=== PATIENT | female | born 1950 | race Caucasian/White ===

== ENCOUNTER 2018-03-17 08:35 | Emergency (ER) | payer MEDICARE, SELFPAY ==
[2018-03-17 08:36] VITALS: BP 179/88; PULSE 78; RESP 16; TEMP 36.8; O2SAT 99; BMI 20.7
--- NOTE | 2018-03-17 08:49 | ED.VISSUMM ---
- ER Visit Summary Date of Service: 03/17/18 Chief Complaint: Right middle finger bruising History of Present Illness: The patient is a 68 F presenting with right middle finger bruising. Patient states she was doing yard work all day yesterday. This morning she noted bruising to her right middle finger. She went to urgent care. They sent her to the ED for further evaluation. She denies pain. She is right-handed. No other complaints. Physical Examination: Vitals are stable. Patient is afebrile. Alert no acute distress. HEENT exam is unremarkable. Lungs are clear and equal bilaterally. Heart is regular rate and rhythm. Extremities right middle finger volar ecchymosis. AFROM. Nontender. Normal cap refill. Skin is warm and dry. No focal neurologic deficit. Remainder of exam is unremarkable. Emergency Department Course and Treatment: Patient is advised to ice and elevate. She declines x-rays or further evaluation. She is unsure why urgent care sent her to the ED. She was put in aluminum foam splint. Advised to follow-up with her primary care physician. Advised return ED if worsening complaints. Disposition: Discharge home Impression: Right middle finger contusion This note was generated with [employer] dictation software. It may contain incorrect words, spelling, and punctuation that were not noted in review of the chart prior to signing ED Disposition - Plan for ED Patient: Disposition: Home or Assisted Living Chief Complaint: Upper Extremity Injury Instructions: ED Contusion Upper Ext Referrals: Pablo Brunson MD [Primary Care Provider] -
--- NOTE | 2018-03-17 08:52 | ED.DEP ---
ED Disposition - Plan for ED Patient: Chief Complaint: Upper Extremity Injury Instructions: ED Contusion Upper Ext
--- NOTE | 2018-03-17 09:13 | ED.RN ---
PT DECLINED SPLINT
[2018-03-17 09:14] VITALS: PULSE 71; RESP 18
--- NOTE | 2018-03-17 09:14 | ED.RN ---
PT ANXIOUS TO BE D/C. PT DECLINED ALUMINUM SPLINT. MEDICATION ARE NOT REVIEWED
--- NOTE | 2018-03-17 09:17 | ED.RN ---
THIS NURSE REVIEWED D/C INSTRUCTIONS WITH PT. PT VERBALIZED UNDERSTANDING OF INSTRUCTIONS. PT DENIES FURTHER NEEDS OR QUESTIONS AT THIS TIME. PT AMBULATES FROM ROOM ON OWN WITHOUT ASSISTANCE FROM STAFF
== END 2018-03-17 09:18 | disposition home or self-care (01) ==
PROVIDERS: Emergency Provider Emergency Medicine; Family Provider Family Medicine; PCP Family Medicine
DX: S60.031A Contusion of right middle finger without damage to nail, initial encounter (principal); X58.XXXA Exposure to other specified factors, initial encounter; Y93.9 Activity, unspecified; Y92.9 Unspecified place or not applicable
CPT/HCPCS: 99282

== ENCOUNTER → 2018-10-01 15:44 | Outpatient (CLI) | payer MEDICARE, SELFPAY ==
[2018-10-01 18:05] LABS: Absolute Lymphocyte Count 1.57 X10^3/ul (0.83-4.51); Basophil# 0.02 X10^3/uL; Basophil% 0.3 % (0-1); Eosinophil# 0.64 X10^3/uL; Eosinophils% 9.2 % (0-5); Hematocrit 39.3 % (37-47); Hemoglobin 12.4 g/dl (12.0-15.0); Lymphocyte # 1.57 X10^3/ul (4.0); Lymphocyte % 22.7 % (19-41); Mean Corp Hgb Conc 31.6 g/gl (32-36); Mean Corpuscular Hgb 31.6 pg (27.0-32.0); Mean Platelet Vol. 9.7 fl (6.2-12.0); Monocyte# 0.65 X10^3/uL; Monocyte% 9.4 % (0-10); Neutrophil # 4.04 X10^3/uL (2.7-7.7); Neutrophil % 58.3 % (47-70); Platelet Count 253 K/mm3 (150-450); RBC Distribution Width CV 13.2 % (11.6-14.6); RBC Distribution Width SD 48.2 fl (35.1-43.9); Red Blood Count 3.93 M/mm3 (4.2-5.4); White Blood Count 6.9 K/mm3 (4.4-11.0)
[2018-10-01 18:16] LABS: POSITIVE COUNT NO; POSITIVE DIFFERENTIAL NO; POSITIVE MORPHOLOGY NO
[2018-10-01 18:21] LABS: Vitamin B12 964 pg/mL (211-911)
[2018-10-01 18:22] LABS: ALB/GLOB Ratio 0.8 RATIO (0.9-2.4); AST(SGOT) 18 U/L (15-37); Alanine Aminotransfer ALT/SGPT 28 U/L (13-56); Albumin, Serum 3.3 g/dL (3.2-5.0); Alkaline Phosphatase 92 U/L (45-117); Anion Gap 10 (5-15); BUN 28 mg/dL (7-18); BUN/Creat Ratio 27.2 RATIO (10-20); Calcium,Total 8.8 mg/dL (8.5-10.1); Chloride 107 mmol/L (98-107); Creatinine, Serum 1.03 mg/dL (0.55-1.02); EST Glomerular Filtration Rate 57 mL/min (>60); Est Glom Filt Rate - Afr Amer 68 mL/min (>60); Ferritin 20 ng/mL (8-252); Glucose 163 mg/dL (74-106); Iron 85 ug/dL (50-170); Potassium 3.9 mmol/L (3.5-5.1); Protein, Total 7.3 g/dL (6.4-8.2); Sodium Level 143 mmol/L (136-145); T4 Free Direct 1.71 ng/dL (0.76-1.46); Thyroid Stim Hormone (TSH) 0.28 uIU/mL (0.358-3.74)
== END ==
PROVIDERS: Family Provider Family Medicine; PCP Family Medicine; Visit Provider Family Medicine
DX: E11.9 Type 2 diabetes mellitus without complications (principal); E03.9 Hypothyroidism, unspecified; D64.9 Anemia, unspecified
CPT/HCPCS: 36415; 80053; 82607; 82728; 83540; 84439; 84443; 85025

== ENCOUNTER → 2018-11-23 11:18 | Outpatient (CLI) | payer MEDICARE, SELFPAY ==
[2018-11-23 09:58] VITALS: BMI 20.7
[2018-11-23 12:18] LABS: T4 Free Direct 1.65 ng/dL (0.76-1.46)
== END ==
PROVIDERS: Family Provider Family Medicine; PCP Family Medicine; Referring Provider Nurse Practitioner; Visit Provider Nurse Practitioner
DX: E07.9 Disorder of thyroid, unspecified (principal); E03.9 Hypothyroidism, unspecified
CPT/HCPCS: 36415; 84439; 84443

== ENCOUNTER → 2018-12-09 12:25 | Outpatient (CLI) | payer MEDICARE, SELFPAY ==
[2018-11-23 09:58] VITALS: BMI 20.7
--- NOTE | 2018-12-09 12:29 | US_ITS ---
STUDY: THYROID ULTRASOUND REASON FOR EXAM: Female, 68 years old. Hypothyroidism. Goiter. TECHNIQUE: Ultrasound evaluation of the thyroid was performed with real-time and static daley-scale imaging. COMPARISON: None. FINDINGS: RIGHT LOBE: The right lobe of the thyroid gland measures 8.2 x 2.1 x 1.9 cm. There is a markedly heterogeneous echotexture. There are no demonstrated solid, cystic or complex lesions. LEFT LOBE: The left lobe of the thyroid gland measures 6.2 x 2.3 x 2.0 cm. There is a markedly heterogeneous echotexture. There are no demonstrated solid, cystic or complex lesions. ISTHMUS: The isthmus measures 5 mm . The regional lymph nodes are normal. US/Thyroid IMPRESSION: Enlarged markedly heterogeneous thyroid gland with no focal nodules or masses. Electronically Signed: Adria Rivera MD at 23:40 EST , Service support ,
--- OUTSIDE RECORDS SUMMARY | 2019-02-13 08:27 | XMS RPT_ITS ---
:1950 Author Organization OH[facility] Care Team Providers Name Role Phone PABLO CRAMONA Referring Unavailable PABLO CARMONA Attending Unavailable PABLO CARMONA Referring Unavailable PABLO CARMONA Referring Unavailable PABLO CARMONA Referring Unavailable ALISHA NARVAEZ (PA) Attending Unavailable ALISHA NARVAEZ (PA) Referring Unavailable DEYA ROWELL (PA) Attending Unavailable ALISHA NARVAEZ (PA) Referring Unavailable KEENA RAHMAN (BINDING CUTTER [employer]NTHETIC CLOTH) Referring Unavailable Lili Elkins BIG MACHINE CONSULTANT-C Attending Unavailable Praveen Lutz Referring Unavailable Lili Elkins BIG MACHINE CONSULTANT-C Attending Unavailable Llii Elkins BIG MACHINE CONSULTANT-C Referring Unavailable NeldaPraveen zelaya Primary Care Unavailable Lili Elkins BIG MACHINE CONSULTANT-C Attending Unavailable Lili Elkins BIG MACHINE CONSULTANT-C Referring Unavailable Praveen Lutz Primary Care Unavailable Monique Fong Attending Unavailable Pablo Carmona Primary Care Unavailable Praveen Lutz Attending Unavailable Nelda, Praveen Primary Care Unavailable Praveen Lutz Attending Unavailable Nelda, Praveen Primary Care Unavailable PROBLEMS PROBLEMS DATE TYPE CONDITION / CODE ATTENDING STATUS SOURCE 11/23/2018 Unknown E07.9 - Disorder of Lili Elkins Active [place] thyroid, BIG MACHINE CONSULTANT-C Community unspecified / Hospital E07.9(ICD-10) Repository 11/23/2018 Unknown E03.9 - Lili Elkins Active [place] Hypothyroidism, BIG MACHINE CONSULTANT-C Community unspecified / Hospital E03.9(ICD-10) Repository 10/01/2018 Unknown E11.9 - Type 2 Praveen Lutz Active [place] diabetes mellitus Community without Hospital complications / Repository E11.9(ICD-10) 10/01/2018 Unknown D64.9 - Anemia, Praveen Lutz Active [place] unspecified / Community D64.9(ICD-10) Hospital Repository 04/27/2018 Active Unknown / VETOVITZ, Active [facility] UNK(Unknown) DEYA (PA) [facility] [place] Repository 02/18/2018 Active Type 2 diabetes NA Active [facility] mellitus without [facility] [place] complications / Repository E11.9(ICD-10) 08/21/2017 Active Vitamin D NA Active [facility] deficiency, [facility] [place] unspecified / Repository E55.9(ICD-10) 02/13/2018 Active Other penitentiary NA Active [facility] (current) drug [facility] [place] therapy / Repository Z79.899(ICD-10) 02/13/2018 Active Type 2 diabetes NA Active [facility] mellitus with [facility] [place] diabetic Repository neuropathy, unspecified / E11.40(ICD-10) PROCEDURES PROCEDURES No Procedure Records FoundRESULTS RESULTS THYROID Observed: 12/09/2018 Status: F Source: [place] 12:29 PM [facility] REPOSITORY [facility] Imaging Services [address] [place] [address] Thyroid MR#: [id number] Acct: [id number] Name: SALONI HICKS Rep #: [id number] : 1950 F 68 From: Adria Rivera MD PCP: Praveen Lutz DO Status: REG CLI Study: Thyroid Date of Exam: 12/09/18 Exam# [id number] Ordering Dr: Lili Elkins BIG MACHINE CONSULTANT-[place] STUDY: THYROID ULTRASOUND REASON FOR EXAM: Female, 68 years old. Hypothyroidism. Goiter. TECHNIQUE: Ultrasound evaluation of the thyroid was performed with real-time and static daley-scale imaging. COMPARISON: None. FINDINGS: RIGHT LOBE: The right lobe of the thyroid gland measures 8.2 x 2.1 x 1.9 cm. There is a markedly heterogeneous echotexture. There are no demonstrated solid, cystic or complex lesions. LEFT LOBE: The left lobe of the thyroid gland measures 6.2 x 2.3 x 2.0 cm. There is a markedly heterogeneous echotexture. There are no demonstrated solid, cystic or complex lesions. ISTHMUS: The isthmus measures 5 mm . The regional lymph nodes are normal. US/Thyroid IMPRESSION: Enlarged markedly heterogeneous thyroid gland with no focal nodules or masses. Electronically Signed: Adria Rivera MD at 23:40 EST , Service support , CC: Lili Elkins NP; Praveen Lutz DO Rn Observation: Signed OFFICE VISIT REPORT Observed: 11/26/2018 Status: F Source: [place] 5:17 AM [place] [address] [place] [address] OFFICE VISIT Date of Service: 11/23/18 MR#: [id number] Acct: [id number] Patient: SALONI HICKS Rep #: [id number] : 1950 Provider: Lili Elkins NP Age/Sex: 68/F [place] [facility] [place]: Signed Intake Vital Signs11/23/18 Height 5 ft 7 in 11/23/18 Weight: 132 lb 11/23/18 Body Mass Index (BMI) 20.7 11/23/18 Blood Pressure 150/80 H 11/23/18 Blood Pressure Location Lt popliteal 11/23/18 Blood Pressure Position Sitting Intake Visit Reasons: Thyroid dysfunction Linemarker Required: No Accompanied by: Self Allergies No Known Allergies Allergy (Verified 11/23/18 09:48) Medications bupropion HCl XL 300 mg 24 hr tablet, extended release 300 mg PO QAM 11/20/18 [History Confirmed 11/23/18] calcium PO QDAY 11/20/18 [History Confirmed 11/23/18] cholecalciferol (vitamin D3) 1,000 unit tablet 1,000 unit PO DAILY 11/20/18 [History Confirmed 11/23/18] multivitamin with minerals-folic acid 0.4 mg tablet mg PO tab 11/20/18 [History Confirmed 11/23/18] omeprazole 20 mg tablet,delayed release 20 mg PO DAILY 11/20/18 [History Confirmed 11/23/18] levothyroxine 175 mcg tablet 175 mcg PO DAILY 11/23/18 [History Confirmed 11/23/18] lisinopril 2.5 mg tablet 2.5 mg PO DAILY 11/23/18 [History Confirmed 11/23/18] metformin 500 mg tablet 500 mg PO TID tab 11/23/18 [History Confirmed 11/23/18] PFSH Medical History Anxiety and depression (Acute) Arthritis (Acute) Back problem (Acute) Carpal tunnel syndrome (Acute) Cataracts, bilateral (Acute) GERD (gastroesophageal reflux disease) (Acute) Goiter (Acute) H/O: pneumonia (Acute) Hypothyroidism (Acute) Neuropathy (Acute) Recurrent UTI (Acute) Seasonal allergies (Acute) TIA (transient ischemic attack) (Acute) Type 2 diabetes mellitus (Acute) Vision problems (Acute) Family History Mother Cancer Father Diabetes Heart disease Sister Diabetes Social History Smoking Status: Current every day smoker alcohol intake: current alcohol intake frequency: holidays/special occasions only substance use type: does not use HPI HPI Details: Nereyda Hill is a 68 year old female ho presents as a follow up for hypothyroidism. Pt of . States she has recently had labs done at [facility] and adjustments made in her Synthyroid. She is currently on Synthyroid 175mcg daily She reports she has always required a large dose of replacement. She also reports she has recently relocated to [place]. She was seeing someone routinely for her thyroid. She does repot she has known goiter and US done routinely. Reports taking medication aas directed. Does not miss any doses. Does not take within 4 hours of calcium,iron, antacids or vitamins. Severity, modifying factors, context, and associated signs and symptoms are as follows: Thyroid pain: No Energy: Reduced Sleep: awakened refreshed Temp: No intolerance GI: Normal bowel with occ constipation Weight: Flucuates Eyes: No change in vision Memory: unchanged Diaphoresis: Not significant Skin: Dry Hair :shedding Neuro: numbness, [place] tingling or tremors. At time of visit: -Pt denies symptoms of hypertensive emergency (CP,SOB,DRUMMOND, or blurred vision) and hypotension(dizziness or lightheadedness) -Pt denies symptoms of hypoglycemia ( sweaty, confusion, anxiety, tremor, hunger, palpitations) and hyperglycemia ( polydipsia, polyuria) -Pt denies potential medication adverse effect. ROS Const Constitutional: No anorexia, body ache, chills, fever(s), decreased energy, malaise, night sweats, weight change, sleep problems, other, snoring, frequent falls, weakness, headache(s), abnormal sleep pattern, change in appetite, excessive sweating or fatigue Eyes Eyes: Positive for blurry vision; no change in vision, double vision, discharge, dry eyes, bulging eyes, floaters, eye pain, light sensitivity, spots in vision, tunnel vision, other or visual disturbances ENT ENT: No ear pain, ear discharge, ear pressure, hearing loss, tinnitus, dizziness/vertigo, balance problems, nosebleed/epistaxis, nasal congestion, nasal obstruction, nose pain, sinus pressure, sinus pain, nasal discharge, post nasal drip, facial pain, dental pain, dry mouth, bad breath, hoarseness, mouth lesions, mouth pain, sore throat, difficulty swallowing, neck pain, abnormal hearing, headache(s), other, lip swelling, tongue swelling or throat swelling Resp Respiratory: Positive for cough; no change in phlegm color, chest congestion, excessive phlegm production, hemoptysis, pain on inspiration, shortness of breath, pain with cough, snoring, stridor, other or wheezing Cardio Cardiology: Positive for other (poor circulation); no chest pain at rest, chest pain with exertion, leg pain with exertion, shortness of breath, dyspnea on exertion, generalized swelling, irregular heart rhythm, lightheadedness, orthopnea, radiating jaw, neck or arm pain, fast heart rate, slow heart rate, palpitations or excessive sweating Gastro GI: Positive for constipation, diarrhea, nausea/dyspepsia and vomiting; no abdominal pain, belching, bloating, change in bowel habits, change in stool character, coffee ground emesis, cramping, heartburn, feeling full early, excessive flatus, incontinent of stools, Vomiting blood/hematemesis, blood in stool, loose stools, Black,tarry stools, pain with swallowing, other or difficulty swallowing Genitourinary-Female: No difficulty urinating, burning urination, painful urination, urinary incontinence, urinary frequency, urinary urgency, urinary hesitancy, urinary retention, blood in urine, Frequent nighttime urination/ nocturia, post void dribbling, suprapubic fullness, side pain, sexual problems, genital lesions, genital itching, hot flashes, abnormal periods, abnormal vaginal bleeding, absent period, painful periods, light periods, heavy periods, difficulty getting , painful intercourse, pelvic pain, vaginal dryness, vaginal odor, Vaginal Itching or other Musc Musculoskeletal: Positive for joint pain, numbness (bilat hands and feet) and tingling (bilat hands and feet); no back pain, deformity, joint swelling, limited range of motion, loss of height, muscle cramps, decreased muscle mass, body aches, neck pain, radiating pain into limb, stiffness, other, abnormal walking or muscle weakness Skin Skin: Positive for hair loss; no acne, change in hair, nail changes, boil, change in skin color, dry skin, redness, excessive hair growth, yellowing of the skin, lesions, rash, skin pain, skin ulcer, sores, skin swelling, wounds, other or itching Breast Breast: No other Neuro Neurology: Positive for numbness (bilat hands and feet) and tingling (bilat hands and feet); no frequent falls, weakness, visual disturbances, abnormal hearing, headache(s) or abnormal walking Psych Psychiatric: No abnormal sleep pattern, No change in appetite Endo Endocrine: No change in body appearance, cold intolerance, excessive sweating, fatigue, flushing, heat intolerance, increased thirst/drinking, increased hunger, increased urination or other Aller/Imm Allergy/Immunologic: No lip swelling, tongue swelling, throat swelling, wheezing or itchy eyes Exam Const General: healthy appearing, well developed Nutritional Appearance: well nourished Orientation: oriented x3 [facility] Head: normal to inspection, atraumatic Ears: hearing grossly normal bilaterally Nose: external nose normal Face and sinus: normal facial exam Mouth: oral mucosae normal, moist mucous membranes Teeth and gingiva: dentition normal Eyes General: appearance normal, both eyes and all related structures Eyelids: eyelids normal Conjunctivae: conjunctivae normal Sclera: sclerae normal Pupils: PERRL Neck Neck: normal visual inspection Neck mass: No Thyroid: diffusely enlarged Resp Effort AND Inspection: normal respiratory effort, able to speak in complete sentences Auscultation: Bilateral: Clear to Auscultation Cardio Rate: regular rate Rhythm: regular rhythm Heart Sounds: S1 normal, S2 normal, no murmurs, no rubs GI Inspection: normal to inspection Auscultation: normal bowel sounds Palpation: soft, no guarding Musc Musculoskeletal: No muscle weakness Skin General: dry skin Neuro General: oriented x3, moves all extremities Cognition: normal cognition Speech: speech normal Gait: normal gait Extrem General: normal to inspection, full ROM Psych Appearance: grossly normal Mental Status: mental status grossly normal Mood: congruent mood Affect: normal affect Speech and Movement: speech and movement normal Attitude: cooperative Thought Process: normal Thought Content: normal Judgment: judgment good Assessment AND Plan 1. 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 E04.0 Plan Patient has had medication adjustment of her loevthyroxine (synthroid by her PCP due to suppressed TSH values. She has not had labs rechecked and I will order that now. Reports thyroid has been monitored for several years with thyroid US without change. No difficulty swallowing. Patient Instructions Labs today Will call patient with results and any adjustments required. US thyroid. Orders Orders: Plan Detail Other Orders Orders: Other Medications New: Additional Comments RTC 1 year. Labs today. US thyroid. 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, [address] T4 FREE DIRECT Collected: 11/23/2018 Status: F Source: [place] 11:26 AM [facility] REPOSITORY TYPE CODE TESTS RESULT OUT OF REFERENCE UNITS RANGE LAB L506.0400 0.76-1.46 ng/dL High T4 FREE 1.65 DIRECT Performed By: #### L501.9520, L506.0400 #### [place] [facility] [address] [place], [address] CBC W/DIFF, AUTOMATED Collected: 10/01/2018 Status: F Source: [place] 3:48 PM [facility] REPOSITORY TYPE CODE TESTS RESULT OUT OF RANGE REFERENCE UNITS LAB L100.1000 4.4-11.0 K/mm3 Normal WBC 6.9 LAB L100.1200 4.2-5.4 M/mm3 Low RBC 3.93 LAB L100.1300 12.0-15.0 g/dl Normal HGB 12.4 LAB L100.1400 37-47 % Normal HCT 39.3 LAB L100.1500 81-99 fL High MCV 100.0 LAB L100.1600 27.0-32.0 pg Normal MCH 31.6 LAB L100.1700 32-36 g/gl Low MCHC 31.6 LAB L100.1810 11.6-14.6 % Normal RDW CV 13.2 LAB L100.1820 35.1-43.9 fl High RDW SD 48.2 LAB L100.1900 150-450 K/mm3 Normal PLT 253 LAB L100.2000 6.2-12.0 fl Normal MPV 9.7 LAB L100.2100 47-70 % Normal NEUT% 58.3 LAB L100.2200 19-41 % Normal LY% 22.7 LAB L100.2300 0-10 % Normal MONO% 9.4 LAB L100.2400 0-5 % High EO% 9.2 LAB L100.2500 0-1 % Normal BASO% 0.3 LAB L100.2550 0.0-0.9 % Normal IM GRAN % 0.100 Result Comment: IG% - Immature Granulocytes (promyelocytes, myelocytes and metamyelocytes) > 1% indicates that a LEFT SHIFT is Present. LAB L100.2620 2.0-7.7 X10 3/uL Normal Absolute Neut 4.0 LAB L100.2720 0.83-4.51 X10 3/ul Normal Absolute Lymph 1.57 Performed By: #### L100.0100 #### [facility] [address] [place], [address] VITAMIN B12 Collected: 10/01/2018 Status: F Source: [place] 3:48 PM [facility] REPOSITORY TYPE CODE TESTS RESULT OUT OF REFERENCE UNITS RANGE LAB L503.0105 211-911 pg/mL High Vitamin B12 964 Performed By: #### L503.0105 #### [facility] [address] [place], [address] COMPREHENSIVE METABOLIC Collected: 10/01/2018 Status: F [facility] REPOSITORY TYPE CODE TESTS RESULT OUT OF RANGE REFERENCE UNITS LAB L501.0100 74-106 mg/dL High GLU 163 Result Comment: Fasting Glucose result greater than or equal to 126 mg/dL suggests DIABETES MELLITUS per A.D.A. criteria. Please note revised GLUCOSE reference range effective 2017. LAB L501.1000 7-18 mg/dL High BUN 28 LAB L501.1100 0.55-1.02 mg/dL High CREAT,SERUM 1.03 Result Comment: The validity of the calculated GFR AND GFRAA in patients over 70 years has not been determined. Clinical correlation is essential. LAB L501.1110 >60 mL/min Low EST GFR 57 Result Comment: Non- GFR Calc LAB L501.1115 >60 mL/min Normal EST GFR - AA 68 Result Comment: GFR Calc LAB L501.1300 10-20 RATIO High BUN/CRE 27.2 LAB L501.1500 6.4-8.2 g/dL T Normal PROT 7.3 LAB L501.1800 3.2-5.0 g/dL Normal ALB 3.3 LAB L501.1950 2.2-4.2 g/dL Normal GLOB 4.0 LAB L501.2000 0.9-2.4 RATIO Low A/G 0.8 LAB L501.2200 8.5-10.1 mg/dL CA Normal 8.8 LAB L501.4100 15-37 U/L Normal AST 18 LAB L501.4305 45-117 U/L Normal ALK P 92 LAB L501.4405 13-56 U/L Normal ALT 28 LAB L501.4600 0.20-1.00 mg/dL T Normal BILI 0.30 LAB L501.5300 136-145 mmol/L NA Normal 143 LAB L501.5600 3.5-5.1 mmol/L K Normal 3.9 LAB L501.5900 98-107 mmol/L CL Normal 107 LAB L501.6100 21.0-32.0 mmol/L Normal CO2 26.0 LAB L501.6200 5-15 Normal GAP 10 Performed By: #### L500.4050, L501.9520, L503.6150, L503.6550, L506.0400 #### [facility] [address] [facility] [place], [address] THYROID STIM HORMONE Collected: 10/01/2018 Status: F Source: [place] (TSH) 3:48 PM [facility] REPOSITORY TYPE CODE TESTS RESULT OUT OF RANGE REFERENCE UNITS LAB L501.9520 0.358-3.74 uIU/mL Low TSH 0.28 Performed By: #### L500.4050, L501.9520, L503.6150, L503.6550, L506.0400 #### [facility] [facility] [place], [address] IRON Collected: 10/01/2018 Status: F Source: [place] 3:48 PM [facility] REPOSITORY TYPE CODE TESTS RESULT OUT OF RANGE REFERENCE UNITS LAB L503.6150 50-170 ug/dL Normal IRON 85 Performed By: #### L500.4050, L501.9520, L503.6150, L503.6550, L506.0400 #### [facility] [address] [facility] [place], [address] FERRITIN Collected: 10/01/2018 Status: F Source: [place] 3:48 PM [facility] REPOSITORY TYPE CODE TESTS RESULT OUT OF RANGE REFERENCE UNITS LAB L503.6550 8-252 ng/mL Normal FERRITIN 20 Performed By: #### L500.4050, L501.9520, L503.6150, L503.6550, L506.0400 #### [facility] [address] [place], [address] T4 FREE DIRECT Collected: 10/01/2018 Status: F Source: [place] 3:48 PM [facility] REPOSITORY TYPE CODE TESTS RESULT OUT OF REFERENCE UNITS RANGE LAB L506.0400 0.76-1.46 ng/dL High T4 FREE 1.71 DIRECT Performed By: #### L500.4050, L501.9520, L503.6150, L503.6550, L506.0400 #### [facility] [address] [place], [address] XR ANKLE 3V AP/LAT/OBL Observed: 06/25/2018 Status: F Source: [place] RT 11:25 AM [facility] REPOSITORY * * *Final Report* * * DATE OF EXAM: Jun 25 2018 11:25AM WOX [id number] - XR ANKLE 3V AP/LAT/OBL RT / PROCEDURE REASON: Pain in right foot * * * * Physician Interpretation * * * * HISTORY: Right ankle pain TECHNIQUE: 3 upright views COMPARISON: None RESULT: Bony and joint structures appear intact. There is soft tissue fullness ventral to the ankle on the lateral view which may be an ankle joint effusion. Incidental note is made of a moderate-sized plantar calcaneal spur. IMPRESSION: Findings as detailed Rn Observation: SAADIA Transcribe Date/Time: Jun 25 2018 11:51A Dictated by : CECILIO KEARNEY MD This examination was interpreted and the report reviewed and electronically signed by: CECILIO KEARNEY MD on Jun 25 2018 11:53AM EST [id number] Observed: 06/25/2018 Status: COMPLETED Source: [place] 11:07 AM [facility] REPOSITORY HNO ID: [id number] Author: Keena Rahman Service: (none) Author Type: Nurse Practitioner Type: Progress Notes Filed: 06/25/2018 12:16 PM Note Text: Subjective The history is provided by the patient. No legal document assistant was used. ASHLYN Hicks is a 68 year old female who presents today for CC of right foot/ankle pain. This started over a month ago. She is also having mild swelling. Symptoms are worsened by walking. She has tried no treatment, she has used ibuprofen, with slight relief. Risk factors no known trauma. PMH significant for foot surgery on right bunion. BP 124/80 Pulse 78 Temp 36.9 ?C (98.4 ?F) Resp 16 Wt 59 kg (130 lb) BMI 20.98 kg/m? ALLERGIES Allergen Reactions - Seasonal Allergies Other: See Comments pollen causes sneezing ACTIVE PROBLEM LIST Controlled Type 2 Diabetes Mellitus Without Complication, Without Long-Term Current Use of Insulin ([facility]) Acquired Hypothyroidism Diabetic Eye Exam ([facility]) Gerd Without Esophagitis Herpes Simplex Infection of Genitourinary System Anxiety and Depression Smoker Iron Deficiency Anemia Encounter for Gynecological Examination Without Abnormal Finding Type 2 Diabetes Mellitus With Diabetic Neuropathy ([facility]) History of Tia (Transient Ischemic Attack) Vitamin D Deficiency Chronic Seasonal Allergic Rhinitis Osteopenia, Senile Carotid Stenosis, Asymptomatic, Bilateral Medicare Annual Wellness Visit, Subsequent Current Use of Proton Pump Inhibitor Essential Hypertension Family History Problem Relation Age of Onset - Cancer Mother Malignant neoplastic disease - Heart Father - Diabetes Father - Diabetes Sister - Diabetes Brother Social History Marital status: Spouse name: Years of education: Number of children: 0 Social History Main Topics Smoking status: Current Every Day Smoker Packs/day: 0.00 Years: 0.00 Smokeless tobacco: Never Used Alcohol use: Yes Comment: rare Drug use: No PAST MEDICAL HISTORY Diagnosis Date - Anxiety and depression 08/20/2017 - Controlled type 2 diabetes mellitus without complication, without long-term current use of insulin ([facility]) 05/08/2017 - Diabetic eye exam ([facility]) 07/07/2017 Last done: 06/26/2017 - DM (diabetes mellitus) ([facility]) - Essential hypertension 03/04/2018 - GERD without esophagitis 08/20/2017 - 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 - Hypothyroid - Hypothyroidism 05/08/2017 - Smoker 08/20/2017 Started at age 16 up to 1 PPD - TIA (transient ischemic attack) Review of Systems Constitutional: Negative for chills, fever and malaise/fatigue. Musculoskeletal: Positive for joint pain (right ankle). Negative for myalgias. Skin: Negative for rash. Neurological: Negative for tingling and headaches. Objective Physical Exam Constitutional: She is oriented to person, place, and time and well-developed, well-nourished, and in no distress. No distress. HENT: Head: Normocephalic and atraumatic. Eyes: Conjunctivae and EOM are normal. Pupils are equal, round, and reactive to light. Neck: Normal range of motion. Neck supple. Cardiovascular: Pulses: Dorsalis pedis pulses are 2+ on the right side, and 2+ on the left side. Posterior tibial pulses are 2+ on the right side, and 2+ on the left side. Pulmonary/Chest: Effort normal. Musculoskeletal: Right ankle: She exhibits decreased range of motion (rotation) and swelling (mild). She exhibits no ecchymosis, no deformity, no laceration and normal pulse. Tenderness. Medial malleolus tenderness found. No lateral malleolus, no AITFL, no CF ligament, no posterior TFL, no head of 5th metatarsal and no proximal fibula tenderness found. Achilles tendon normal. Feet: Neurological: She is alert and oriented to person, place, and time. She has normal sensation, normal strength and normal reflexes. Reflex Scores: Achilles reflexes are 2+ on the right side and 2+ on the left side. Skin: Skin is warm and dry. Psychiatric: Affect normal. Nursing note and vitals reviewed. ASSESSMENT/PLAN: 1. Foot pain, right - ICD9: 729.5, ICD10: M79.671 Rest, ice, elevation, van wrap for comfort 2 Aleve twice a day as needed for pain Need to follow up with podiatry - XR ANKLE GENERAL 3V AP/LAT/OBL RT - interpreted by Cecilio Kearney MD IMPRESSION: Findings as detailed- RESULT: Bony and joint structures appear intact. There is soft tissue fullness ventral to the ankle on the lateral view which may be an ankle joint effusion. Incidental note is made of a moderate-sized plantar calcaneal spur. CONSULT TO PODIATRY Diagnosis and treatment plan were discussed and questions were answered to the patient's satisfaction. Pt acknowledged understanding of concepts and follow up plan. Specific signs and symptoms that would indicate the need for higher level of care were discussed in detail warranting prompt ER evaluation. Keena Rahman APRN.B[employer]ING [employer]OTH PROGRESS Observed: 06/25/2018 Status: COMPLETED Source: [place] 11:07 AM [facility] [place] REPOSITORY HNO ID: [id number] Author: Aurelia Hughes (Rt) Willian Fitch Service: (none) Author Type: [employer] Open Stack Administrator Type: Progress Notes Filed: 06/25/2018 11:24 AM Note Text: Radiology Service Progress Note PATIENT NAME: Saloni Hicks DATE OF SERVICE: June 25, 2018 TIME: 11:07 AM PATIENT IDENTITY VERIFICATION COMPLETED USING TWO (2) METHODS: Patient confirmed name verbally and Date of . PATIENT GENDER DATA: Female. status: : No status: NO. PATIENT RELEVANT IMPLANT DATA REVIEWED: Not Applicable RADIOLOGY DEPARTMENT: General X-ray: Exam(s) Completed: Lower Extremity X-Ray(s): Ankle, Right: PERIPHERAL IV DATA: Not applicable SIGNED BY: RT Edin June 25, 2018 11:07 AM SHANI Observed: 06/25/2018 Status: COMPLETED Source: [place] 10:30 AM [facility] REPOSITORY Office Visit (WSTR) FABIOLASALONI MACHUCA ([id number]) 1950 F Date Time Provider Department 06/25/18 10:30 AM KEENA RAHMAN (ELIZABETH) [facility] During your visit today, we recorded the following information about you: Temperature Pulse Respiration Blood pressure 98.4 degrees 78/minute 16/minute 124/80 Weight 59 kg Keena Rahman APRN.CNP 06/25/2018 12:16 PM Signed Subjective The history is provided by the patient. No legal document assistant was used. HPI Saloni Hicks is a 68 year old female who presents today for CC of right foot/ankle pain. This started over a month ago. She is also having mild swelling. Symptoms are worsened by walking. She has tried no treatment, she has used ibuprofen, with slight relief. Risk factors no known trauma. PMH significant for foot surgery on right bunion. BP 124/80 Pulse 78 Temp 36.9 ?C (98.4 ?F) Resp 16 Wt 59 kg (130 lb) BMI 20.98 kg/m? ALLERGIES Allergen Reactions - Seasonal Allergies Other: See Comments pollen causes sneezing ACTIVE PROBLEM LIST Controlled Type 2 Diabetes Mellitus Without Complication, Without Long-Term Current Use of Insulin ([facility]) Acquired Hypothyroidism Diabetic Eye Exam ([facility]) Gerd Without Esophagitis Herpes Simplex Infection of Genitourinary System Anxiety and Depression Smoker Iron Deficiency Anemia Encounter for Gynecological Examination Without Abnormal Finding Type 2 Diabetes Mellitus With Diabetic Neuropathy ([facility]) History of Tia (Transient Ischemic Attack) Vitamin D Deficiency Chronic Seasonal Allergic Rhinitis Osteopenia, Senile Carotid Stenosis, Asymptomatic, Bilateral Medicare Annual Wellness Visit, Subsequent Current Use of Proton Pump Inhibitor Essential Hypertension Family History Problem Relation Age of Onset - Cancer Mother Malignant neoplastic disease - Heart Father - Diabetes Father - Diabetes Sister - Diabetes Brother Social History Marital status: Spouse name: Years of education: Number of children: 0 Social History Main Topics Smoking status: Current Every Day Smoker Packs/day: 0.00 Years: 0.00 Smokeless tobacco: Never Used Alcohol use: Yes Comment: rare Drug use: No PAST MEDICAL HISTORY Diagnosis Date - Anxiety and depression 08/20/2017 - Controlled type 2 diabetes mellitus without complication, without long-term current use of insulin ([facility]) 05/08/2017 - Diabetic eye exam ([facility]) 07/07/2017 Last done: 06/26/2017 - DM (diabetes mellitus) ([facility]) - Essential hypertension 03/04/2018 - GERD without esophagitis 08/20/2017 - 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 - Hypothyroid - Hypothyroidism 05/08/2017 - Smoker 08/20/2017 Started at age 16 up to 1 PPD - TIA (transient ischemic attack) Review of Systems Constitutional: Negative for chills, fever and malaise/fatigue. Musculoskeletal: Positive for joint pain (right ankle). Negative for myalgias. Skin: Negative for rash. Neurological: Negative for tingling and headaches. Objective Physical Exam Constitutional: She is oriented to person, place, and time and well-developed, well-nourished, and in no distress. No distress. HENT: Head: Normocephalic and atraumatic. Eyes: Conjunctivae and EOM are normal. Pupils are equal, round, and reactive to light. Neck: Normal range of motion. Neck supple. Cardiovascular: Pulses: Dorsalis pedis pulses are 2+ on the right side, and 2+ on the left side. Posterior tibial pulses are 2+ on the right side, and 2+ on the left side. Pulmonary/Chest: Effort normal. Musculoskeletal: Right ankle: She exhibits decreased range of motion (rotation) and swelling (mild). She exhibits no ecchymosis, no deformity, no laceration and normal pulse. Tenderness. Medial malleolus tenderness found. No lateral malleolus, no AITFL, no CF ligament, no posterior TFL, no head of 5th metatarsal and no proximal fibula tenderness found. Achilles tendon normal. Feet: Neurological: She is alert and oriented to person, place, and time. She has normal sensation, normal strength and normal reflexes. Reflex Scores: Achilles reflexes are 2+ on the right side and 2+ on the left side. Skin: Skin is warm and dry. Psychiatric: Affect normal. Nursing note and vitals reviewed. ASSESSMENT/PLAN: 1. Foot pain, right - ICD9: 729.5, ICD10: M79.671 Rest, ice, elevation, van wrap for comfort 2 Aleve twice a day as needed for pain Need to follow up with podiatry - XR ANKLE GENERAL 3V AP/LAT/OBL RT - interpreted by Cecilio Kearney MD IMPRESSION: Findings as detailed- RESULT: Bony and joint structures appear intact. There is soft tissue fullness ventral to the ankle on the lateral view which may be an ankle joint effusion. Incidental note is made of a moderate-sized plantar calcaneal spur. CONSULT TO PODIATRY Diagnosis and treatment plan were discussed and questions were answered to the patient's satisfaction. Pt acknowledged understanding of concepts and follow up plan. Specific signs and symptoms that would indicate the need for higher level of care were discussed in detail warranting prompt ER evaluation. Keena Rahman APRN.ELIZABETH Rahman APRN.ELIZABETH 06/25/2018 12:14 PM Signed ASSESSMENT/PLAN: 1. Foot pain, right - ICD9: 729.5, ICD10: M79.671 Rest, ice, elevation, van wrap for comfort 2 Aleve twice a day as needed for pain Need to follow up with podiatry - XR ANKLE GENERAL 3V AP/LAT/OBL RT - CONSULT TO PODIATRY Referring Provider: SELF [200] Allergies As of Date: 06/25/2018 Noted Allergy Reaction SEASONAL ALLERGIES 04/27/2018 14 - Other: See Comments Comments: pollen causes sneezing Date Reviewed: 06/25/2018 Reviewed by: Keena Carter) Lacey - Fully Assessed Reason for Visit: Pain (foot) [760] Cmt: x 1 month right foot pain, swelling and bruising Primary Visit Diagnosis:Foot pain, right [M79.671] Order(s):XR ANKLE GENERAL 3V AP/LAT/OBL RT [1131805] Order #: [id number]. #:[id number] CONSULT TO PODIATRY [9034] Order #: [id number]: 1 Prescriptions as of 06/25/2018 Sig: VALACYCLOVIR 500 MG TABLET TAKE 1 TABLET EVERY DAY SYNTHROID 200 MCG TABLET TAKE 1 TABLET 5 DAYS A WEEK A* METFORMIN 500 MG TABLET Take 1 tablet by mouth three * LISINOPRIL 5 MG TABLET Take 1 tablet by mouth once d* SYNTHROID 175 MCG TABLET Take 1 tablet by mouth every * OMEPRAZOLE 40 MG CAPSULE,YARIEL* Take 1 capsule by mouth once * SYNTHROID 200 MCG TABLET Take one tab by mouth 5 days * BUPROPION XL 300 MG 24 HR TAB Take 1 tablet by mouth once d* ASPIRIN 81 MG TABLET,DELAYED * Take 1 tablet by mouth once d* CHOLECALCIFEROL (VITAMIN D3) * Take 1,000 Units by mouth onc* NAPROXEN 500 MG TABLET Take 1 tablet by mouth twice * Patient not taking: Reported on 04/27/2018 MUPIROCIN 2 % TOPICAL OINTMENT Apply 1 application to affect* Patient not taking: Reported on 06/25/2018 Problem List As Of Date 06/25/2018 Noted Resolved Controlled type 2 diabetes mellitus without com*INVALID FOR* Priority: A Acquired hypothyroidism [E03.9] INVALID FOR* Priority: A Diabetic eye exam (HCC) [Z01.00, E11.9] INVALID FOR* Priority: A More... GERD without esophagitis [K21.9] INVALID FOR* Priority: A Herpes simplex infection of genitourinary syste*INVALID FOR* Priority: C Anxiety and depression [F41.9, F32.9] INVALID FOR* Priority: A Smoker [F17.200] INVALID FOR* Priority: C More... Iron deficiency anemia [D50.9] INVALID FOR* Priority: A Encounter for gynecological examination without*INVALID FOR* Priority: E More... Type 2 diabetes mellitus with diabetic neuropat*INVALID FOR* Priority: A History of TIA (transient ischemic attack) [Z86*INVALID FOR* Priority: A More... Vitamin D deficiency [E55.9] INVALID FOR* Priority: B Chronic seasonal allergic rhinitis [J30.2] INVALID FOR* Priority: B Osteopenia, senile [M85.80] INVALID FOR* Priority: M More... Carotid stenosis, asymptomatic, bilateral [I65.*INVALID FOR* Priority: A More... Medicare annual wellness visit, subsequent [Z00*INVALID FOR* Priority: E More... Current use of proton pump inhibitor [Z79.899] INVALID FOR* Essential hypertension [I10] INVALID FOR* Priority: A Other instructions from your clinician: ASSESSMENT/PLAN: 1. Foot pain, right - ICD9: 729.5, ICD10: M79.671 Rest, ice, elevation, van wrap for comfort 2 Aleve twice a day as needed for pain Need to follow up with podiatry - XR ANKLE GENERAL 3V AP/LAT/OBL RT - CONSULT TO PODIATRY Encounter Status:Closed by KEENA RAHMAN CNP on 06/25/18 CNCO Observed: 05/11/2018 Status: COMPLETED Source: [place] 12:00 AM [facility] REPOSITORY Letter Text [address] [place] [address] [phone] 05/11/2018 Saloni Hicks [address] [facility] [address] Dear Ms. Hicks: Due to a change in the provider's schedule, it has been necessary to reschedule your appointment. Enclosed please find a new appointment reminder that will replace the one previously sent to you. If this appointment is not convenient for you, please contact our office at [phone]. Thank you for choosing the [facility] as your Healthcare Provider. Sincerely, The office of Deya Rowell PROGRESS Observed: 04/30/2018 Status: COMPLETED Source: [place] 4:50 PM [facility] [place] REPOSITORY HNO ID: [id number] Author: Betty Lee Ma Service: (none) Author Type: (none) Type: Progress Notes Filed: 04/30/2018 4:51 PM Note Text: Patient scheduled at [facility] on 08/09/18 @ 7:00 am for EMG/NCV BUE. Referral done in computer and follow up appointment mailed to patient. PROGRESS Observed: 04/27/2018 Status: COMPLETED Source: [place] 5:16 PM [facility] REPOSITORY HNO ID: [id number] Author: Deya Rowell (Pa) Service: (none) Author Type: Physician Professor Of Industrial Technology Type: Progress Notes Filed: 04/27/2018 5:23 PM Note Text: Deya Rowell PA-C Department of Orthopaedics Orthopaedics [address] [facility] [address] Dept: [phone] Dept April 27, 2018 CHIEF COMPLAINT: New Patient (bilateral CTS, REF:Alisha Narvaez) HPI: Ms. Saloni Hicks is a 68 year old female. She presents with almost constant numbness in her right middle finger for the past few months. The patient tells me that she has had intermittent numbness in her right and left thumb, index and middle fingers for the past several years. The patient recalls having an EMG in [place] 5 years ago, testing was positive for bilateral carpal tunnel syndrome but patient was unable to take time off from work at that point. Patient recalls having a corticosteroid injection in her right wrist that had been very helpful up until about a few months ago. Patient notes right hand pain is a 5 out of 10 aching, cramping, throbbing, numbness that is worse at bedtime or with overactivity. The patient has been sleeping in extension splints for the past 5 years without relief. 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 She is also tried naproxen which which does not find to be helpful. Patient is right hand dominant. ASSESSMENT: G56.03 Bilateral carpal tunnel syndrome (primary encounter diagnosis) PLAN: We will proceed with right total tunnel corticosteroid injection today. Discussed surgery with patient and she wishes to forego right carpal tunnel release until after the summer. We did discuss repeating her nerve conduction study prior to surgery. Follow-up as needed. FOLLOW UP INSTRUCTIONS: As needed. Ms. Saloni Hicks was advised as to contrast therapies and/or to take analgesics/anti-inflammatories as needed and all contraindications were reviewed. OBJECTIVE: Ms. Saloni Hicks is a pleasant 68 year old in no apparent distress. Gen:BP 154/84[auto[ Pulse 89 Ht 5' 6 (1.68m) Wt 133 lb 6.4 oz (60.5kg) BMI 21.54 kg/(m2). nl development, non obese, no deformities ENT: Normocephalic, normal hearing, moist mucosa CV: Pulses:Radial= 2+ and symmetric, capillary refill < 2 secs, no peripheral edema/varicosities Skin: no rash, bruising or lesions. Good turgor. Psych: cooperative and appropriate, alert and oriented x 3, good mood and affect. Musculoskeletal: Cervical spine has supple range of motion and non- tenderness to palpation, Spurling's sign negative. Shoulders and elbows have full and active range of motion. Negative Tinel's over the cubital tunnel, no subluxation of ulnar nerve at the elbow with flexion. Negative Tinel's over Guyon's canal. Inspection reveals mild thenar atrophy. Decreased sensation to light touch in the radial 3 digits. Sensation intact in the ulnar 2 digits with mild intrinsic atrophy/weakness. Negative Tinel's at the wrist, negative carpal tunnel compression testing bilterally. No locking or catching of the digits. No tenderness to palpation or masses noted in the forearm or hand. Procedure note: The risk, benefits and alternatives of injection and no injection therapy were discussed. The patient consented for an injection. Time out was conducted. The injection site was prepped with an alcohol swab. The right Carpal Tunnel was injected with a 25 gauge needle with 0.5 cc (3 mg) Celestone and 0.5 cc 1% Lidocaine Plain. The injection site was then dressed with a bandaid. The patient tolerated the injection well. The patient was instructed to call the office if any adverse local effects occurred or any if any questions or concerns arise. Deya Rowell PA-C IMAGING: Deferred today Supporting Subjective Information Below: Past Medical History: PAST MEDICAL HISTORY Diagnosis Date - Anxiety and depression 08/20/2017 - Controlled type 2 diabetes mellitus without complication, without long-term current use of insulin ([facility]) 05/08/2017 - Diabetic eye exam ([facility]) 07/07/2017 Last done: 06/26/2017 - DM (diabetes mellitus) (HCC) - Essential hypertension 03/04/2018 - GERD without esophagitis 08/20/2017 - 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 - Hypothyroid - Hypothyroidism 05/08/2017 - Smoker 08/20/2017 Started at age 16 up to 1 PPD - TIA (transient ischemic attack) Past Surgical History: PAST SURGICAL HISTORY Procedure Laterality Date - CATARACT EXT; EYEONICS IOL SYS 11/24/2007 both - COLONOSCOPY 05/08/2008 repeat 10 yrs - CORRECT BUNION,SIMPLE Bilateral 1997 left - HAMMERTOE REVISION, ONE TOE 11/24/1975 right - MENISCAL REPAIR SYS,CD,[id number] Right knee - PROSTHESIS, BREAST, IMP Bilateral 11/24/1975 - TONSILLECTOMY HX 11/24/1954 Family History: FAMILY HISTORY Problem Relation Age of Onset - Cancer Mother Malignant neoplastic disease - Heart Father - Diabetes Father - Diabetes Sister - Diabetes Brother Social History:Social History Marital status: Spouse name: Years of education: Number of children: 0 Social History Main Topics Smoking status: Current Every Day Smoker Packs/day: 0.00 Years: 0.00 Smokeless tobacco: Never Used Alcohol use: Yes Comment: rare Drug use: No Medications: Current Outpatient Prescriptions: metFORMIN (GLUCOPHAGE) 500 mg tablet Take 1 tablet by mouth three times daily. lisinopril (ZESTRIL, PRINIVIL) 5 mg tablet Take 1 tablet by mouth once daily. SYNTHROID 175 mcg tablet Take 1 tablet by mouth every Friday and Friday. Omeprazole 40 mg capsule Take 1 capsule by mouth once daily. SYNTHROID 200 mcg tablet Take one tab by mouth 5 days a week as instructed. Take on empty stomach. For Thyroid. Please give branded synthroid buPROPion XL (WELLBUTRIN XL) 300 mg 24 hr tablet Take 1 tablet by mouth once daily. valACYclovir (VALTREX) 500 mg tablet Take 1 tablet by mouth once daily. aspirin, enteric coated (ADULT LOW DOSE ASPIRIN) 81 mg EC tablet Take 1 tablet by mouth once daily. Cholecalciferol, Vitamin D3, (VITAMIN D) 1,000 unit cap Take 1,000 Units by mouth once daily. naproxen (NAPROSYN) 500 mg tablet Take 1 tablet by mouth twice daily as needed (for pain/inflammation). Take with food. (Patient not taking: Reported on 04/27/2018 ) SYNTHROID 200 mcg tablet TAKE 1 TABLET 5 DAYS A WEEK INSTRUCTED, TAKE ON EMPTY STOMACH FOR THYROID mupirocin (BACTROBAN) 2 % ointment Apply 1 application to affected area three times daily. Location: [facility] No current facility-administered medications for this visit. Allergies: Seasonal Allergies ROS: General (negative for fatigue, malaise, weight loss/gain) HEENT (negative for headache, earache, recent vision changes, sinus pain, sore throat) Respiratory (no recent shortness of breath, hemoptysis) CV (negative for chest tightness, palpitations) Musculoskeletal (see HPI) Psych (no depression, anxiety) REFERRING PHYSICIAN: Ms. Saloni Hicks was referred to me for consultation by the following physician. This consultation note will be sent to the following physician by either mail or electronic medical record. ALISHA NARVAEZ PA-C [address] [facility] [id number] Pablo Carmona MD [address] [facility] [id number] This note was partially generated using Intertwine voice recognition system, and there may be some incorrect words, spellings, and punctuation that were not noted in checking the note before saving. Deya Rowell PA-C PROGRESS Observed: 04/27/2018 Status: COMPLETED Source: [place] 2:10 PM [facility] REPOSITORY [facility] ID: [id number] Author: Daisy Andres RN Service: (none) Author Type: (none) Type: Progress Notes Filed: 04/27/2018 5:23 PM Note Text: AMB ROOMING INTAKE FLOWSHEET DATA Risk Screening Do you have concerns about personal safety or safety in the home?: No Pain Pain Score: (right hand 5-10 and left hand 1) Pain Location: (bilateral hands) Description: Aching, Cramping, Throbbing, Stabbing, Sharp Duration Amount of Time: 30 Duration Units: Years Frequency: Continuous Intervention: Splinting, Medication Patient presents with: New Patient: bilateral CTS, REF:Alisha Narvaez Pt. 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 She is having severe symptoms in right hand and is right hand dominant. Left bothers her very little. 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 Splinting no longer helps right hand and naproxen ineffective. She continues to smoke. Discussed reasons for quitting and pt. aware. Instructed since BP still elevated, to make appt. for nurse BP check within the next month. Pt. verbalizes understanding. SHANI Observed: 04/27/2018 Status: COMPLETED Source: [place] 2:10 PM [facility] REPOSITORY Office Visit (ORTHWS) SALONI HICKS ([id number]) 1950 F Date Time Provider Department 04/27/18 2:10 PM DEYA ROWELL) MARIA L During your visit today, we recorded the following information about you: Pulse Blood pressure Weight Height 89/minute 154/84 60.5 kg 1.676 m Daisy Andres RN 04/27/2018 5:23 PM Signed AMB ROOMING INTAKE FLOWSHEET DATA Risk Screening Do you have concerns about personal safety or safety in the home?: No Pain Pain Score: (right hand 5-10 and left hand 1) Pain Location: (bilateral hands) Description: Aching, Cramping, Throbbing, Stabbing, Sharp Duration Amount of Time: 30 Duration Units: Years Frequency: Continuous Intervention: Splinting, Medication Patient presents with: New Patient: bilateral CTS, REF:Alisha Narvaez Pt. 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 She is having severe symptoms in right hand and is right hand dominant. Left bothers her very little. 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 Splinting no longer helps right hand and naproxen ineffective. She continues to smoke. Discussed reasons for quitting and pt. aware. Instructed since BP still elevated, to make appt. for nurse BP check within the next month. Pt. verbalizes understanding. Deya Rowell PA-C 04/27/2018 5:23 PM Signed Deya Rowell PA-C Department of Orthopaedics Orthopaed[facility] [address] [facility] [address] Dept: [phone] Dept April 27, 2018 CHIEF COMPLAINT: New Patient (bilateral CTS, REF:Alisha Narvaez) HPI: Ms. Saloni Hicks is a 68 year old female. She presents with almost constant numbness in her right middle finger for the past few months. The patient tells me that she has had intermittent numbness in her right and left thumb, index and middle fingers for the past several years. The patient recalls having an EMG in [place] 5 years ago, testing was positive for bilateral carpal tunnel syndrome but patient was unable to take time off from work at that point. Patient recalls having a corticosteroid injection in her right wrist that had been very helpful up until about a few months ago. Patient notes right hand pain is a 5 out of 10 aching, cramping, throbbing, numbness that is worse at bedtime or with overactivity. The patient has been sleeping in extension splints for the past 5 years without relief. 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 She is also tried naproxen which which does not find to be helpful. Patient is right hand dominant. ASSESSMENT: G56.03 Bilateral carpal tunnel syndrome (primary encounter diagnosis) PLAN: We will proceed with right total tunnel corticosteroid injection today. Discussed surgery with patient and she wishes to forego right carpal tunnel release until after the summer. We did discuss repeating her nerve conduction study prior to surgery. Follow-up as needed. FOLLOW UP INSTRUCTIONS: As needed. Ms. Saloni Hicks was advised as to contrast therapies and/or to take analgesics/anti-inflammatories as needed and all contraindications were reviewed. OBJECTIVE: Ms. Saloni Hicks is a pleasant 68 year old in no apparent distress. Gen:BP 154/84[auto[ Pulse 89 Ht 5' 6 (1.68m) Wt 133 lb 6.4 oz (60.5kg) BMI 21.54 kg/(m2). nl development, non obese, no deformities ENT: Normocephalic, normal hearing, moist mucosa CV: Pulses:Radial= 2+ and symmetric, capillary refill < 2 secs, no peripheral edema/varicosities Skin: no rash, bruising or lesions. Good turgor. Psych: cooperative and appropriate, alert and oriented x 3, good mood and affect. Musculoskeletal: Cervical spine has supple range of motion and non- tenderness to palpation, Spurling's sign negative. Shoulders and elbows have full and active range of motion. Negative Tinel's over the cubital tunnel, no subluxation of ulnar nerve at the elbow with flexion. Negative Tinel's over Guyon's canal. Inspection reveals mild thenar atrophy. Decreased sensation to light touch in the radial 3 digits. Sensation intact in the ulnar 2 digits with mild intrinsic atrophy/weakness. Negative Tinel's at the wrist, negative carpal tunnel compression testing bilterally. No locking or catching of the digits. No tenderness to palpation or masses noted in the forearm or hand. Procedure note: The risk, benefits and alternatives of injection and no injection therapy were discussed. The patient consented for an injection. Time out was conducted. The injection site was prepped with an alcohol swab. The right Carpal Tunnel was injected with a 25 gauge needle with 0.5 cc (3 mg) Celestone and 0.5 cc 1% Lidocaine Plain. The injection site was then dressed with a bandaid. The patient tolerated the injection well. The patient was instructed to call the office if any adverse local effects occurred or any if any questions or concerns arise. Deya Rowell PA-C IMAGING: Deferred today Supporting Subjective Information Below: Past Medical History: PAST MEDICAL HISTORY Diagnosis Date - Anxiety and depression 08/20/2017 - Controlled type 2 diabetes mellitus without complication, without long-term current use of insulin ([facility]) 05/08/2017 - Diabetic eye exam ([facility]) 07/07/2017 Last done: 06/26/2017 - DM (diabetes mellitus) ([facility]) - Essential hypertension 03/04/2018 - GERD without esophagitis 08/20/2017 - 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 - Hypothyroid - Hypothyroidism 05/08/2017 - Smoker 08/20/2017 Started at age 16 up to 1 PPD - TIA (transient ischemic attack) Past Surgical History: PAST SURGICAL HISTORY Procedure Laterality Date - CATARACT EXT; EYEONICS IOL SYS 11/24/2007 both - COLONOSCOPY 05/08/2008 repeat 10 yrs - CORRECT BUNION,SIMPLE Bilateral 1997 left - HAMMERTOE REVISION, ONE TOE 11/24/1975 right - MENISCAL REPAIR SYS,CD,[id number] Right knee - PROSTHESIS, BREAST, IMP Bilateral 11/24/1975 - TONSILLECTOMY HX 11/24/1954 Family History: FAMILY HISTORY Problem Relation Age of Onset - Cancer Mother Malignant neoplastic disease - Heart Father - Diabetes Father - Diabetes Sister - Diabetes Brother Social History:Social History Marital status: Spouse name: Years of education: Number of children: 0 Social History Main Topics Smoking status: Current Every Day Smoker Packs/day: 0.00 Years: 0.00 Smokeless tobacco: Never Used Alcohol use: Yes Comment: rare Drug use: No Medications: Current Outpatient Prescriptions: metFORMIN (GLUCOPHAGE) 500 mg tablet Take 1 tablet by mouth three times daily. lisinopril (ZESTRIL, PRINIVIL) 5 mg tablet Take 1 tablet by mouth once daily. SYNTHROID 175 mcg tablet Take 1 tablet by mouth every Friday and Friday. Omeprazole 40 mg capsule Take 1 capsule by mouth once daily. SYNTHROID 200 mcg tablet Take one tab by mouth 5 days a week as instructed. Take on empty stomach. For Thyroid. Please give branded synthroid buPROPion XL (WELLBUTRIN XL) 300 mg 24 hr tablet Take 1 tablet by mouth once daily. valACYclovir (VALTREX) 500 mg tablet Take 1 tablet by mouth once daily. aspirin, enteric coated (ADULT LOW DOSE ASPIRIN) 81 mg EC tablet Take 1 tablet by mouth once daily. Cholecalciferol, Vitamin D3, (VITAMIN D) 1,000 unit cap Take 1,000 Units by mouth once daily. naproxen (NAPROSYN) 500 mg tablet Take 1 tablet by mouth twice daily as needed (for pain/inflammation). Take with food. (Patient not taking: Reported on 04/27/2018 ) SYNTHROID 200 mcg tablet TAKE 1 TABLET 5 DAYS A WEEK INSTRUCTED, TAKE ON EMPTY STOMACH FOR THYROID mupirocin (BACTROBAN) 2 % ointment Apply 1 application to affected area three times daily. Location: thumb No current facility-administered medications for this visit. Allergies: Seasonal Allergies ROS: General (negative for fatigue, malaise, weight loss/gain) HEENT (negative for headache, earache, recent vision changes, sinus pain, sore throat) Respiratory (no recent shortness of breath, hemoptysis) CV (negative for chest tightness, palpitations) Musculoskeletal (see HPI) Psych (no depression, anxiety) REFERRING PHYSICIAN: Ms. Saloni Hicks was referred to me for consultation by the following physician. This consultation note will be sent to the following physician by either mail or electronic medical record. ALISHA NARVAEZ PA-C [id number] [facility] [id number] Pablo Carmona MD [id number] [facility] [id number] This note was partially generated using Intertwine voice recognition system, and there may be some incorrect words, spellings, and punctuation that were not noted in checking the note before saving. CHELSEA Holguin Id 04/30/2018 4:51 PM Signed Patient scheduled at [facility] on 08/09/18 @ 7:00 am for EMG/NCV BUE. Referral done in computer and follow up appointment mailed to patient. Referring Provider: EMERALD NARVAEZ) [[id number]] Allergies As of Date: 04/27/2018 Noted Allergy Reaction SEASONAL ALLERGIES 04/27/2018 14 - Other: See Comments Comments: pollen causes sneezing Date Reviewed: 04/27/2018 Reviewed by: Deya Rowell (Pa) - Fully Assessed Reason for Visit: New Patient [172] Cmt: bilateral CTS, REF:Alisha Narvaez Primary Visit Diagnosis:Bilateral carpal tunnel syndrome [G56.03] Order(s):EMG(NEURO/NI) [9516826] Order #: [id number]: 1 FUTURE [] lidocaine 10 mg/mL (1 %) 5 mg injection (XYLOCAINE)Disp: Rfl: [] betamethasone acetate-betamethasone sodium phosphate 3 mg injection (CELESTONE)Disp: Rfl: Prescriptions as of 04/27/2018 Sig: METFORMIN 500 MG TABLET Take 1 tablet by mouth three * LISINOPRIL 5 MG TABLET Take 1 tablet by mouth once d* SYNTHROID 175 MCG TABLET Take 1 tablet by mouth every * OMEPRAZOLE 40 MG CAPSULE,YARIEL* Take 1 capsule by mouth once * SYNTHROID 200 MCG TABLET Take one tab by mouth 5 days * BUPROPION XL 300 MG 24 HR TAB Take 1 tablet by mouth once d* VALACYCLOVIR 500 MG TABLET Take 1 tablet by mouth once d* ASPIRIN 81 MG TABLET,DELAYED * Take 1 tablet by mouth once d* CHOLECALCIFEROL (VITAMIN D3) * Take 1,000 Units by mouth onc* NAPROXEN 500 MG TABLET Take 1 tablet by mouth twice * Patient not taking: Reported on 04/27/2018 SYNTHROID 200 MCG TABLET TAKE 1 TABLET 5 DAYS A WEEK A* MUPIROCIN 2 % TOPICAL OINTMENT Apply 1 application to affect* Medication notes this encounter SYNTHROID 200 MCG TABLET >> Daisy Andres RN 04/27/2018 2:09 PM >> DAISY ANDRES RN FriApr 27, 2018 2:09 PM duplicate Problem List As Of Date 04/27/2018 Noted Resolved Controlled type 2 diabetes mellitus without com*INVALID FOR* Priority: A Acquired hypothyroidism [E03.9] INVALID FOR* Priority: A Diabetic eye exam (HCC) [Z01.00, E11.9] INVALID FOR* Priority: A More... GERD without esophagitis [K21.9] INVALID FOR* Priority: A Herpes simplex infection of genitourinary syste*INVALID FOR* Priority: C Anxiety and depression [F41.9, F32.9] INVALID FOR* Priority: A Smoker [F17.200] INVALID FOR* Priority: C More... Iron deficiency anemia [D50.9] INVALID FOR* Priority: A Encounter for gynecological examination without*INVALID FOR* Priority: E More... Type 2 diabetes mellitus with diabetic neuropat*INVALID FOR* Priority: A History of TIA (transient ischemic attack) [Z86*INVALID FOR* Priority: A More... Vitamin D deficiency [E55.9] INVALID FOR* Priority: B Chronic seasonal allergic rhinitis [J30.2] INVALID FOR* Priority: B Osteopenia, senile [M85.80] INVALID FOR* Priority: M More... Carotid stenosis, asymptomatic, bilateral [I65.*INVALID FOR* Priority: A More... Medicare annual wellness visit, subsequent [Z00*INVALID FOR* Priority: E More... Current use of proton pump inhibitor [Z79.899] INVALID FOR* Essential hypertension [I10] INVALID FOR* Priority: A Prescriptions ordered this encounter Disp Refills Start End LIDOCAINE 10 MG/ML (1 %) INJECTION S* 04/27/2018 04/27/2018 Route: OTHER BETAMETHASONE ACETATE AND SODIUM ELIZABETH* 04/27/2018 04/27/2018 Route: OTHER Encounter Status:Closed by DEYA ROWELL PA-C on 04/27/18 PROGRESS Observed: 04/15/2018 Status: COMPLETED Source: [place] 8:30 AM [facility] REPOSITORY HNO ID: [id number] Author: Rachelle Narvaez Service: (none) Author Type: Physician Professor [employer] Industrial [employer] Type: Progress Notes Filed: 04/15/2018 9:02 AM Note Text: 04/15/2018 Patient presents with: Pain: patient is here for bilateral hand/wrist pain SUBJECTIVE: This is a 68 year old that is here today for Above Complaints.. Hx of b/l hand/wrist pain for years. Has had EMG in past (approx 9 years ago) while living in [place] and did show Carpal tunnel but she couldn't take off work. States that at that time she received a steroid injection which helped. Pain is worse in R more than L. Also getting numbness and tingling in fingertips. Has noticed some loss in joint finisher strength Has tried motrin which can help but not always. Has used splints at night for years but doesn't seem to help anymore. 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 MEDICATIONS Current Outpatient Prescriptions: SYNTHROID 200 mcg tablet TAKE 1 TABLET 5 DAYS A WEEK INSTRUCTED, TAKE ON EMPTY STOMACH FOR THYROID metFORMIN (GLUCOPHAGE) 500 mg tablet Take 1 tablet by mouth three times daily. lisinopril (ZESTRIL, PRINIVIL) 5 mg tablet Take 1 tablet by mouth once daily. SYNTHROID 175 mcg tablet Take 1 tablet by mouth every Friday and Friday. Omeprazole 40 mg capsule Take 1 capsule by mouth once daily. buPROPion XL (WELLBUTRIN XL) 300 mg 24 hr tablet Take 1 tablet by mouth once daily. valACYclovir (VALTREX) 500 mg tablet Take 1 tablet by mouth once daily. aspirin, enteric coated (ADULT LOW DOSE ASPIRIN) 81 mg EC tablet Take 1 tablet by mouth once daily. Cholecalciferol, Vitamin D3, (VITAMIN D) 1,000 unit cap Take 1,000 Units by mouth once daily. mupirocin (BACTROBAN) 2 % ointment Apply 1 application to affected area three times daily. Location: thumb SYNTHROID 200 mcg tablet Take one tab by mouth 5 days a week as instructed. Take on empty stomach. For Thyroid. Please give branded synthroid No current facility-administered medications for this visit. SOCIAL HISTORY Social History Marital status: Spouse name: Years of education: Number of children: 0 Social History Main Topics Smoking status: Current Every Day Smoker Packs/day: 0.00 Years: 0.00 Smokeless tobacco: Never Used Alcohol use: Yes Comment: rare Drug use: No REVIEW OF SYSTEMS SEE HPI Others reviewed and noncontributory OBJECTIVE: BP 130/64 Pulse 76 Resp 14 Wt 60.8 kg (134 lb) BMI 21.47 kg/m? APPEARANCE Well appearing, alert, in no acute distress, well-hydrated, well nourished. EXTREMITIES Positive phalens. No pain with ROM or palpation of b/l hands, wrists. No skin discoloration, No edema and Normal pulses bilaterally. NEURO Sensation to monofilament decreased in R hand fingertips. Sensation intact proximally. bicipital reflex equal b/l. Patient Safety Manager strength 4/5 ASSESSMENT/PLAN: 1. Carpal tunnel syndrome, bilateral - ICD9: 354.0, ICD10: G56.03 (primary diagnosis) Symptoms consistent with worsening carpal tunnel. Patient would like to discuss steroid injection vs surgical intervention. We will consult ortho for treatment options since she has failed more conservative options In meantime will start patient on Naproxen 500mg BID prn. - CONSULT TO ORTHOPAEDICS 2. Bilateral hand pain - ICD9: 729.5, ICD10: M79.641, M79.642 CTS vs OA - CONSULT TO ORTHOPAEDICS Follow up as scheduled or sooner as needed. ALISHA NARVAEZ PA-C CNOV Observed: 04/15/2018 Status: COMPLETED Source: [place] 8:20 AM [facility] REPOSITORY Office Visit ([facility]) SALONI HICKS ([id number]) 1950 F Date Time Provider Department 04/15/18 8:20 AM EMERALD NARVAEZ) [facility] During your visit today, we recorded the following information about you: Pulse Respiration Blood pressure Weight 76/minute 14/minute 130/64 60.8 kg ALISHA NARVAEZ PA-C 04/15/2018 9:02 AM Signed 04/15/2018 Patient presents with: Pain: patient is here for bilateral hand/wrist pain SUBJECTIVE: This is a 68 year old that is here today for Above Complaints.. Hx of b/l hand/wrist pain for years. Has had EMG in past (approx 9 years ago) while living in [place] and did show Carpal tunnel but she couldn't take off work. States that at that time she received a steroid injection which helped. Pain is worse in R more than L. Also getting numbness and tingling in fingertips. Has noticed some loss in joint finisher strength Has tried motrin which can help but not always. Has used splints at night for years but doesn't seem to help anymore. 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 MEDICATIONS Current Outpatient Prescriptions: SYNTHROID 200 mcg tablet TAKE 1 TABLET 5 DAYS A WEEK INSTRUCTED, TAKE ON EMPTY STOMACH FOR THYROID metFORMIN (GLUCOPHAGE) 500 mg tablet Take 1 tablet by mouth three times daily. lisinopril (ZESTRIL, PRINIVIL) 5 mg tablet Take 1 tablet by mouth once daily. SYNTHROID 175 mcg tablet Take 1 tablet by mouth every Friday and Friday. Omeprazole 40 mg capsule Take 1 capsule by mouth once daily. buPROPion XL (WELLBUTRIN XL) 300 mg 24 hr tablet Take 1 tablet by mouth once daily. valACYclovir (VALTREX) 500 mg tablet Take 1 tablet by mouth once daily. aspirin, enteric coated (ADULT LOW DOSE ASPIRIN) 81 mg EC tablet Take 1 tablet by mouth once daily. Cholecalciferol, Vitamin D3, (VITAMIN D) 1,000 unit cap Take 1,000 Units by mouth once daily. mupirocin (BACTROBAN) 2 % ointment Apply 1 application to affected area three times daily. Location: thumb SYNTHROID 200 mcg tablet Take one tab by mouth 5 days a week as instructed. Take on empty stomach. For Thyroid. Please give branded synthroid No current facility-administered medications for this visit. SOCIAL HISTORY Social History Marital status: Spouse name: Years of education: Number of children: 0 Social History Main Topics Smoking status: Current Every Day Smoker Packs/day: 0.00 Years: 0.00 Smokeless tobacco: Never Used Alcohol use: Yes Comment: rare Drug use: No REVIEW OF SYSTEMS SEE HPI Others reviewed and noncontributory OBJECTIVE: BP 130/64 Pulse 76 Resp 14 Wt 60.8 kg (134 lb) BMI 21.47 kg/m? APPEARANCE Well appearing, alert, in no acute distress, well- hydrated, well nourished. EXTREMITIES Positive phalens. No pain with ROM or palpation of b/l hands, wrists. No skin discoloration, No edema and Normal pulses bilaterally. NEURO Sensation to monofilament decreased in R hand fingertips. Sensation intact proximally. bicipital reflex equal b/l. Patient Safety Manager strength 4/5 ASSESSMENT/PLAN: 1. Carpal tunnel syndrome, bilateral - ICD9: 354.0, ICD10: G56.03 (primary diagnosis) Symptoms consistent with worsening carpal tunnel. Patient would like to discuss steroid injection vs surgical intervention. We will consult ortho for treatment options since she has failed more conservative options In meantime will start patient on Naproxen 500mg BID prn. - CONSULT TO ORTHOPAEDICS 2. Bilateral hand pain - ICD9: 729.5, ICD10: M79.641, M79.642 CTS vs OA - CONSULT TO ORTHOPAEDICS Follow up as scheduled or sooner as needed. ALISHA NARVAEZ PA-C Referring Provider: EMERALD NARVAEZ) [[id number]] Allergies As of Date: 04/15/2018 (No Known Allergies) Date Reviewed: 04/15/2018 Reviewed by: Emerald) Brice - Fully Assessed Reason for Visit: Pain [78] Cmt: patient is here for bilateral hand/wrist pain Primary Visit Diagnosis:Carpal tunnel syndrome, bilateral [G56.03] Other Visit Diagnosis:Bilateral hand pain [M79.641, M79.642] Order(s):CONSULT TO ORTHOPAEDICS [9026] Order #: [id number]: 1 naproxen (NAPROSYN) 500 mg tabletTake 1 tablet by mouth twice daily as needed (for pain/inflammation). Take with food.Disp: 60 tabletRfl: 1 Prescriptions as of 04/15/2018 Sig: SYNTHROID 200 MCG TABLET TAKE 1 TABLET 5 DAYS A WEEK A* METFORMIN 500 MG TABLET Take 1 tablet by mouth three * LISINOPRIL 5 MG TABLET Take 1 tablet by mouth once d* SYNTHROID 175 MCG TABLET Take 1 tablet by mouth every * OMEPRAZOLE 40 MG CAPSULE,YARIEL* Take 1 capsule by mouth once * BUPROPION XL 300 MG 24 HR TAB Take 1 tablet by mouth once d* VALACYCLOVIR 500 MG TABLET Take 1 tablet by mouth once d* ASPIRIN 81 MG TABLET,DELAYED * Take 1 tablet by mouth once d* CHOLECALCIFEROL (VITAMIN D3) * Take 1,000 Units by mouth onc* NAPROXEN 500 MG TABLET Take 1 tablet by mouth twice * MUPIROCIN 2 % TOPICAL OINTMENT Apply 1 application to affect* SYNTHROID 200 MCG TABLET Take one tab by mouth 5 days * Problem List As Of Date 04/15/2018 Noted Resolved Controlled type 2 diabetes mellitus without com*INVALID FOR* Priority: A Acquired hypothyroidism [E03.9] INVALID FOR* Priority: A Diabetic eye exam (HCC) [Z01.00, E11.9] INVALID FOR* Priority: A More... GERD without esophagitis [K21.9] INVALID FOR* Priority: A Herpes simplex infection of genitourinary syste*INVALID FOR* Priority: C Anxiety and depression [F41.9, F32.9] INVALID FOR* Priority: A Smoker [F17.200] INVALID FOR* Priority: C More... Iron deficiency anemia [D50.9] INVALID FOR* Priority: A Encounter for gynecological examination without*INVALID FOR* Priority: E More... Type 2 diabetes mellitus with diabetic neuropat*INVALID FOR* Priority: A History of TIA (transient ischemic attack) [Z86*INVALID FOR* Priority: A More... Vitamin D deficiency [E55.9] INVALID FOR* Priority: B Chronic seasonal allergic rhinitis [J30.2] INVALID FOR* Priority: B Osteopenia, senile [M85.80] INVALID FOR* Priority: M More... Carotid stenosis, asymptomatic, bilateral [I65.*INVALID FOR* Priority: A More... Medicare annual wellness visit, subsequent [Z00*INVALID FOR* Priority: E More... Current use of proton pump inhibitor [Z79.899] INVALID FOR* Essential hypertension [I10] INVALID FOR* Priority: A Prescriptions ordered this encounter Disp Refills Start End NAPROXEN 500 MG TABLET 60 t* 1 04/15/2018 Route: ORAL Sig: Take 1 tablet by mouth twice daily as needed (for pain/inflammation). Take with food. Disposition: Return if symptoms worsen or fail to improve. Follow-up and Disposition History Recorded Encounter Status:Closed by ALISHA HENSLEY on 04/15/18 CNNURSE Observed: 03/31/2018 Status: COMPLETED Source: [place] 11:00 AM [facility] REPOSITORY [facility] SALONI HICKS ([id number]) 1950 F Date Time Provider Department 03/31/18 11:00 AM [place] NURSE CATHERINE During your visit today, we recorded the following information about you: Pulse Blood pressure 77/minute 126/76 Kristi Hummel LPN 03/31/2018 11:16 AM Signed Manual Readin/76 Pulse: 80 BP Lex average: 126/76 P: 77 Repeat BP Check: 117/81 P79 #1 126/75 P75 #2 126/79 P78 #3 127/75 P74 #4 123/76 P78 #5 127/77 P78 #6 Reason for blood pressure check - Last BP elevated and Medication adjustment Patient is: Taking medication as prescribed Yes Took medication today Yes If no, date medication last taken N/A Experiencing side effects No BP continue to be elevated at last appt 03/04/18. Was started on Lisinopril 5mg daily. Tolerating medication well. Denies any chest pain, shortness of breath, dizziness, or headaches. Daily caffeine use. Current everyday tobacco use. Alert and oriented. Pt has been identified by name and birthdate: Yes Allergies reviewed: Yes Latex allergy: no. Medication - prescribed and OTC reviewed and updated: Yes Do you need any prescription refills prior to your next visit: No Health Maintenance: Reviewed and not up to date and provider notified Patient advised to continue with current medications and would be contacted with any further instructions after review by PCP. Kristi Hummel LPN Referring Provider: PABLO CARMONA [[id number]] Allergies As of Date: 03/31/2018 (No Known Allergies) Date Reviewed: 03/17/2018 Reviewed by: Ángela Santacruz Ma - Fully Assessed Reason for Visit: Blood Pressure Check [195] Primary Visit Diagnosis:Essential hypertension [I10] Prescriptions as of 03/31/2018 Sig: LISINOPRIL 5 MG TABLET Take 1 tablet by mouth once d* SYNTHROID 175 MCG TABLET Take 1 tablet by mouth every * SYNTHROID 200 MCG TABLET Take one tab by mouth 5 days * OMEPRAZOLE 40 MG CAPSULE,YARIEL* Take 1 capsule by mouth once * SYNTHROID 200 MCG TABLET Take one tab by mouth 5 days * BUPROPION XL 300 MG 24 HR TAB Take 1 tablet by mouth once d* VALACYCLOVIR 500 MG TABLET Take 1 tablet by mouth once d* ASPIRIN 81 MG TABLET,DELAYED * Take 1 tablet by mouth once d* METFORMIN 500 MG TABLET Take 500 mg by mouth three ti* CHOLECALCIFEROL (VITAMIN D3) * Take 1,000 Units by mouth onc* MUPIROCIN 2 % TOPICAL OINTMENT Apply 1 application to affect* Problem List As Of Date 03/31/2018 Noted Resolved Controlled type 2 diabetes mellitus without com*INVALID FOR* Priority: A Acquired hypothyroidism [E03.9] INVALID FOR* Priority: A Diabetic eye exam (HCC) [Z01.00, E11.9] INVALID FOR* Priority: A More... GERD without esophagitis [K21.9] INVALID FOR* Priority: A Herpes simplex infection of genitourinary syste*INVALID FOR* Priority: C Anxiety and depression [F41.9, F32.9] INVALID FOR* Priority: A Smoker [F17.200] INVALID FOR* Priority: C More... Iron deficiency anemia [D50.9] INVALID FOR* Priority: A Encounter for gynecological examination without*INVALID FOR* Priority: E More... Type 2 diabetes mellitus with diabetic neuropat*INVALID FOR* Priority: A History of TIA (transient ischemic attack) [Z86*INVALID FOR* Priority: A More... Vitamin D deficiency [E55.9] INVALID FOR* Priority: B Chronic seasonal allergic rhinitis [J30.2] INVALID FOR* Priority: B Osteopenia, senile [M85.80] INVALID FOR* Priority: M More... Carotid stenosis, asymptomatic, bilateral [I65.*INVALID FOR* Priority: A More... Medicare annual wellness visit, subsequent [Z00*INVALID FOR* Priority: E More... Current use of proton pump inhibitor [Z79.899] INVALID FOR* Essential hypertension [I10] INVALID FOR* Priority: A Encounter Status:Closed by KRISTI HUMMEL LPN on 03/31/18 PROGRESS Observed: 03/31/2018 Status: COMPLETED Source: [place] 10:59 AM [facility] REPOSITORY HNO ID: [id number] Author: Kristi Hummel LPN Service: (none) Author Type: (none) Type: Progress Notes Filed: 03/31/2018 11:16 AM Note Text: Manual Readin/76 Pulse: 80 BP Lex average: 126/76 P: 77 Repeat BP Check: 117/81 P79 #1 126/75 P75 #2 126/79 P78 #3 127/75 P74 #4 123/76 P78 #5 127/77 P78 #6 Reason for blood pressure check - Last BP elevated and Medication adjustment Patient is: Taking medication as prescribed Yes Took medication today Yes If no, date medication last taken N/A Experiencing side effects No BP continue to be elevated at last appt 03/04/18. Was started on Lisinopril 5mg daily. Tolerating medication well. Denies any chest pain, shortness of breath, dizziness, or headaches. Daily caffeine use. Current everyday tobacco use. Alert and oriented. Pt has been identified by name and birthdate: Yes Allergies reviewed: Yes Latex allergy: no. Medication - prescribed and OTC reviewed and updated: Yes Do you need any prescription refills prior to your next visit: No Health Maintenance: Reviewed and not up to date and provider notified Patient advised to continue with current medications and would be contacted with any further instructions after review by PCP. Kristi Hummel LPN FECAL OCCULT BLD Collected: 03/30/2018 Status: F Source: [facility] 12:00 PM CLINIC MAIN [facility] REPOSITORY TYPE CODE TESTS RESULT OUT OF REFERENCE UNITS RANGE LAB IFO Negative Immuno Negative FOB Result Comment: This test was developed and its performance characteristics determined by [facility]'s [facility] [place] [facility] It has not been cleared or approved by the FDA. -[facility] is regulated under CLIA as qualified to perform high-complexity testing. This test is used for clinical purposes. It should not be regarded as investigational or for research. Performed By: #### IFOBT #### [facility] [address], [place] [address] EMERGENCY DEPARTMENT Observed: 03/17/2018 Status: F Source: [place] SUMMARY 10:10 AM [facility] REPOSITORY [facility] Medical Records Department [address] [place] [address] Emergency Department Summary 03/17/18 0849 MR#: [id number] Acct: [id number] Name: SALONI HICKS Rep #: [id number] : 1950 68 From: Monique Fong MD PCP: Pablo Carmona MD Status: DEP ER - ER Visit Summary Date of Service: 03/17/18 Chief Complaint: Right middle finger bruising History of Present Illness: The patient is a 68 F presenting with right middle finger bruising. Patient states she was doing yard work all day yesterday. This morning she noted bruising to her right middle finger. She went to urgent care. They sent her to the ED for further evaluation. She denies pain. She is right-handed. No other complaints. Physical Examination: Vitals are stable. Patient is afebrile. Alert no acute distress. HEENT exam is unremarkable. Lungs are clear and equal bilaterally. Heart is regular rate and rhythm. Extremities right middle finger volar ecchymosis. AFROM. Nontender. Normal cap refill. Skin is warm and dry. No focal neurologic deficit. Remainder of exam is unremarkable. Emergency Department Course and Treatment: Patient is advised to ice and elevate. She declines x-rays or further evaluation. She is unsure why urgent care sent her to the ED. She was put in aluminum foam splint. Advised to follow-up with her primary care physician. Advised return ED if worsening complaints. Disposition: Discharge home Impression: Right middle finger contusion This note was generated with Intertwine dictation software. It may contain incorrect words, spelling, and punctuation that were not noted in review of the chart prior to signing ED Disposition - Plan for ED Patient: Disposition: Home or Assisted Living Chief Complaint: Upper Extremity Injury Instructions: ED Contusion Upper Ext Referrals: Pablo Carmona MD [Primary Care Provider] - What to do if you have Problems For any increased pain, shortness of breath, bleeding, nausea or vomiting, chest pain, or any unexpected problems, contact your Primary Care Provider. Call [facility] ([phone]) or report to the closest Emergency Room. Call 911 if necessary. 03/17/18 1010 <Electronically signed by Monique Fong MD> Date Monique Fong MD Cosigner Signature (If Indicated): Date CC: Pablo Carmona MD PROGRESS Observed: 03/17/2018 Status: COMPLETED Source: [place] 9:12 AM [facility] REPOSITORY HNO ID: [id number] Author: Pauline Perez Service: (none) Author Type: Nurse Practitioner Type: Progress Notes Filed: 03/17/2018 9:36 AM Note Text: Subjective HPI Pt presents with c/o middle finger of right hand blue, numb and limited ROM this am. Denies known injury. States was working in yard yesterday without issues. This am realized finger was numb. No open areas, bruising, swelling. Denies fever, chills. Review of Systems Constitutional: Negative for chills and fever. Objective Physical Exam Constitutional: She is oriented to person, place, and time and well-developed, well-nourished, and in no distress. No distress. Musculoskeletal: Hands: Radial pulse palpable. Limited ROM to middle finger. Poor perfusion. Finger white, cold to touch. Neurological: She is alert and oriented to person, place, and time. Skin: Skin is warm and dry. She is not diaphoretic. BP 128/80 Pulse 76 Temp 36.1 ?C (96.9 ?F) (Tympanic) Resp 16 Wt 59.4 kg (131 lb) BMI 20.98 kg/m2 .Patient presents with: Hand Injury: right hand and middle finger pain after working outside x yesterday PAST MEDICAL HISTORY Diagnosis Date - Anxiety and depression 08/20/2017 - Controlled type 2 diabetes mellitus without complication, without long-term current use of insulin ([facility]) 05/08/2017 - Diabetic eye exam ([facility]) 07/07/2017 Last done: 06/26/2017 - DM (diabetes mellitus) ([facility]) - Essential hypertension 03/04/2018 - GERD without esophagitis 08/20/2017 - 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 - Hypothyroid - Hypothyroidism 05/08/2017 - Smoker 08/20/2017 Started at age 16 up to 1 PPD PAST SURGICAL HISTORY Procedure Laterality Date - CATARACT EXT; EYEONICS IOL SYS 11/24/2007 both - COLONOSCOPY 05/08/2008 repeat 10 yrs - CORRECT BUNION,SIMPLE 1997 left - HAMMERTOE REVISION, ONE TOE 11/24/1975 right - MENISCAL REPAIR SYS,[id number] - PROSTHESIS, BREAST, IMP 11/24/1975 - TONSILLECTOMY HX 11/24/1954 ALLERGIES Review of patient's allergies indicates no known allergies. MEDICATIONS lisinopril (ZESTRIL, PRINIVIL) 5 mg tablet Take 1 tablet by mouth once daily. SYNTHROID 175 mcg tablet Take 1 tablet by mouth every Friday and Friday. SYNTHROID 200 mcg tablet Take one tab by mouth 5 days a weeks. Take on empty stomach. For Thyroid. Omeprazole 40 mg capsule Take 1 capsule by mouth once daily. SYNTHROID 200 mcg tablet Take one tab by mouth 5 days a week as instructed. Take on empty stomach. For Thyroid. Please give branded synthroid buPROPion XL (WELLBUTRIN XL) 300 mg 24 hr tablet Take 1 tablet by mouth once daily. valACYclovir (VALTREX) 500 mg tablet Take 1 tablet by mouth once daily. aspirin, enteric coated (ADULT LOW DOSE ASPIRIN) 81 mg EC tablet Take 1 tablet by mouth once daily. metFORMIN (GLUCOPHAGE) 500 mg tablet Take 500 mg by mouth three times daily. Cholecalciferol, Vitamin D3, (VITAMIN D) 1,000 unit cap Take 1,000 Units by mouth once daily. mupirocin (BACTROBAN) 2 % ointment Apply 1 application to affected area three times daily. Location: thumb FAMILY HISTORY Problem Relation Age of Onset - Cancer Mother Malignant neoplastic disease - Heart Father - Diabetes Father - Diabetes Sister - Diabetes Brother Social History Substance Use Topics - Smoking status: Current Every Day Smoker - Smokeless tobacco: Never Used - Alcohol use Yes Comment: rare ASSESSMENT/PLAN: 1. Discoloration of skin of finger - ICD9: 709.00, ICD10: L81.9 Pt referred to ED now for further evaluation of finger. Pt chooses to be seen at [facility]. Pauline Perez CNP DISCHARGE INSTRUCTION Observed: 03/17/2018 Status: F Source: [place] 8:52 AM [facility] REPOSITORY [facility] Medical Records Department [address] [place] [address] Discharge Instruction 03/17/18 0852 MR#: [id number] Acct: [id number] Name: SALONI HICKS Rep #: [id number] : 1950 68 From: Monique Fong MD PCP: Pablo Carmona MD Status: REG ER ED Disposition - Plan for ED Patient: Chief Complaint: Upper Extremity Injury Instructions: ED Contusion Upper Ext What to do if you have Problems For any increased pain, shortness of breath, bleeding, nausea or vomiting, chest pain, or any unexpected problems, contact your Primary Care Provider. Call [facility] ([phone]) or report to the closest Emergency Room. Call 911 if necessary. 03/17/18 0852 <Electronically signed by Monique Fong MD> Date Monique Fong MD Cosigner Signature (If Indicated): Date CC: Pablo Carmona MD CNOV Observed: 03/17/2018 Status: COMPLETED Source: [place] 8:15 AM [facility] REPOSITORY Office Visit (WSTR) SALONI HICKS Shira ([id number]) 1950 F Date Time Provider Department 03/17/18 8:15 AM PAULINE PEREZ [facility] During your visit today, we recorded the following information about you: Temperature Pulse Respiration Blood pressure 96.9 degrees 76/minute 16/minute 128/80 Weight 59.4 kg Pauline Perez APRN.[employer] 03/17/2018 9:36 AM Signed Subjective HPI Pt presents with c/o middle finger of right hand blue, numb and limited ROM this am. Denies known injury. States was working in yard yesterday without issues. This am realized finger was numb. No open areas, bruising, swelling. Denies fever, chills. Review of Systems Constitutional: Negative for chills and fever. Objective Physical Exam Constitutional: She is oriented to person, place, and time and well-developed, well-nourished, and in no distress. No distress. Musculoskeletal: Hands: Radial pulse palpable. Limited ROM to middle finger. Poor perfusion. Finger white, cold to touch. Neurological: She is alert and oriented to person, place, and time. Skin: Skin is warm and dry. She is not diaphoretic. BP 128/80 Pulse 76 Temp 36.1 ?C (96.9 ?F) (Tympanic) Resp 16 Wt 59.4 kg (131 lb) BMI 20.98 kg/m2 .Patient presents with: Hand Injury: right hand and middle finger pain after working outside x yesterday PAST MEDICAL HISTORY Diagnosis Date - Anxiety and depression 08/20/2017 - Controlled type 2 diabetes mellitus without complication, without long-term current use of insulin ([facility]) 05/08/2017 - Diabetic eye exam ([facility]) 07/07/2017 Last done: 06/26/2017 - DM (diabetes mellitus) ([facility]) - Essential hypertension 03/04/2018 - GERD without esophagitis 08/20/2017 - 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 - Hypothyroid - Hypothyroidism 05/08/2017 - Smoker 08/20/2017 Started at age 16 up to 1 PPD PAST SURGICAL HISTORY Procedure Laterality Date - CATARACT EXT; EYEONICS IOL SYS 11/24/2007 both - COLONOSCOPY 05/08/2008 repeat 10 yrs - CORRECT BUNION,SIMPLE 1997 left - HAMMERTOE REVISION, ONE TOE 11/24/1975 right - MENISCAL REPAIR SYS,[id number] - PROSTHESIS, BREAST, IMP 11/24/1975 - TONSILLECTOMY HX 11/24/1954 ALLERGIES Review of patient's allergies indicates no known allergies. MEDICATIONS lisinopril (ZESTRIL, PRINIVIL) 5 mg tablet Take 1 tablet by mouth once daily. SYNTHROID 175 mcg tablet Take 1 tablet by mouth every Friday and Friday. SYNTHROID 200 mcg tablet Take one tab by mouth 5 days a weeks. Take on empty stomach. For Thyroid. Omeprazole 40 mg capsule Take 1 capsule by mouth once daily. SYNTHROID 200 mcg tablet Take one tab by mouth 5 days a week as instructed. Take on empty stomach. For Thyroid. Please give branded synthroid buPROPion XL (WELLBUTRIN XL) 300 mg 24 hr tablet Take 1 tablet by mouth once daily. valACYclovir (VALTREX) 500 mg tablet Take 1 tablet by mouth once daily. aspirin, enteric coated (ADULT LOW DOSE ASPIRIN) 81 mg EC tablet Take 1 tablet by mouth once daily. metFORMIN (GLUCOPHAGE) 500 mg tablet Take 500 mg by mouth three times daily. Cholecalciferol, Vitamin D3, (VITAMIN D) 1,000 unit cap Take 1,000 Units by mouth once daily. mupirocin (BACTROBAN) 2 % ointment Apply 1 application to affected area three times daily. Location: thumb FAMILY HISTORY Problem Relation Age of Onset - Cancer Mother Malignant neoplastic disease - Heart Father - Diabetes Father - Diabetes Sister - Diabetes Brother Social History Substance Use Topics - Smoking status: Current Every Day Smoker - Smokeless tobacco: Never Used - Alcohol use Yes Comment: rare ASSESSMENT/PLAN: 1. Discoloration of skin of finger - ICD9: 709.00, ICD10: L81.9 Pt referred to ED now for further evaluation of finger. Pt chooses to be seen at [facility]. Pauline Perez CNP Referring Provider: SELF [200] Allergies As of Date: 03/17/2018 (No Known Allergies) Date Reviewed: 03/17/2018 Reviewed by: Ángela Santacruz Ma - Fully Assessed Reason for Visit: Hand Injury [1974] Cmt: right hand and middle finger pain after working outside x yesterday Primary Visit Diagnosis:Discoloration of skin of finger [L81.9] Prescriptions as of 03/17/2018 Sig: LISINOPRIL 5 MG TABLET Take 1 tablet by mouth once d* SYNTHROID 175 MCG TABLET Take 1 tablet by mouth every * SYNTHROID 200 MCG TABLET Take one tab by mouth 5 days * OMEPRAZOLE 40 MG CAPSULE,YARIEL* Take 1 capsule by mouth once * SYNTHROID 200 MCG TABLET Take one tab by mouth 5 days * BUPROPION XL 300 MG 24 HR TAB Take 1 tablet by mouth once d* VALACYCLOVIR 500 MG TABLET Take 1 tablet by mouth once d* ASPIRIN 81 MG TABLET,DELAYED * Take 1 tablet by mouth once d* METFORMIN 500 MG TABLET Take 500 mg by mouth three ti* CHOLECALCIFEROL (VITAMIN D3) * Take 1,000 Units by mouth onc* MUPIROCIN 2 % TOPICAL OINTMENT Apply 1 application to affect* Medication notes this encounter MUPIROCIN 2 % TOPICAL OINTMENT >> Ángela Santacruz Ma 03/17/2018 8:14 AM >> NOAM BRYSONÁNGELA Mar 17, 2018 8:14 AM done Problem List As Of Date 03/17/2018 Noted Resolved Controlled type 2 diabetes mellitus without com*INVALID FOR* Priority: A Acquired hypothyroidism [E03.9] INVALID FOR* Priority: A Diabetic eye exam (HCC) [Z01.00, E11.9] INVALID FOR* Priority: A More... GERD without esophagitis [K21.9] INVALID FOR* Priority: A Herpes simplex infection of genitourinary syste*INVALID FOR* Priority: C Anxiety and depression [F41.9, F32.9] INVALID FOR* Priority: A Smoker [F17.200] INVALID FOR* Priority: C More... Iron deficiency anemia [D50.9] INVALID FOR* Priority: A Encounter for gynecological examination without*INVALID FOR* Priority: E More... Type 2 diabetes mellitus with diabetic neuropat*INVALID FOR* Priority: A History of TIA (transient ischemic attack) [Z86*INVALID FOR* Priority: A More... Vitamin D deficiency [E55.9] INVALID FOR* Priority: B Chronic seasonal allergic rhinitis [J30.2] INVALID FOR* Priority: B Osteopenia, senile [M85.80] INVALID FOR* Priority: M More... Carotid stenosis, asymptomatic, bilateral [I65.*INVALID FOR* Priority: A More... Medicare annual wellness visit, subsequent [Z00*INVALID FOR* Priority: E More... Current use of proton pump inhibitor [Z79.899] INVALID FOR* Essential hypertension [I10] INVALID FOR* Priority: A Encounter Status:Closed by PAULINE PEREZ CNP on 03/17/18 PROGRESS Observed: 03/04/2018 Status: COMPLETED Source: [place] 9:21 AM [facility] REPOSITORY HNO ID: [id number] Author: Kristi Hummel LPN Service: (none) Author Type: (none) Type: Progress Notes Filed: 03/04/2018 9:40 AM Note Text: Manual Readin/78 Pulse: 92 BP Lex average: 141/80 P: 93 Reason for blood pressure check - Last BP elevated Patient is: Taking medication as prescribed Yes Took medication today Yes If no, date medication last taken N/A Experiencing side effects No BP was elevated at last appt 02/18/18. No BP medication changes were made at that time. Taking all medications as prescribed. Denies any chest pain, shortness of breath, dizziness, or headaches. Daily caffeine use. Current everyday tobacco use. Alert and oriented. Pt has been identified by name and birthdate: Yes Allergies reviewed: Yes Latex allergy: no. Medication - prescribed and OTC reviewed and updated: Yes Do you need any prescription refills prior to your next visit: No Health Maintenance: Reviewed and not up to date and provider notified Patient advised that he would be contacted after review by PCP. Kristi Hummel LPN CNNURSE Observed: 03/04/2018 Status: COMPLETED Source: [place] 9:15 AM [facility] REPOSITORY Nurse Visit (FAMPWS) SALONI HICKS ([id number]) 1950 F Date Time Provider Department 03/04/18 9:15 AM [place] [facility] During your visit today, we recorded the following information about you: Pulse Blood pressure 93/minute 141/80 Kristi Hummel LPN 03/04/2018 9:40 AM Signed Manual Readin/78 Pulse: 92 BP Lex average: 141/80 P: 93 Reason for blood pressure check - Last BP elevated Patient is: Taking medication as prescribed Yes Took medication today Yes If no, date medication last taken N/A Experiencing side effects No BP was elevated at last appt 02/18/18. No BP medication changes were made at that time. Taking all medications as prescribed. Denies any chest pain, shortness of breath, dizziness, or headaches. Daily caffeine use. Current everyday tobacco use. Alert and oriented. Pt has been identified by name and birthdate: Yes Allergies reviewed: Yes Latex allergy: no. Medication - prescribed and OTC reviewed and updated: Yes Do you need any prescription refills prior to your next visit: No Health Maintenance: Reviewed and not up to date and provider notified Patient advised that he would be contacted after review by PCP. Kristi Hummel LPN Referring Provider: PABLO CARMONA [[id number]] Allergies As of Date: 03/04/2018 (No Known Allergies) Date Reviewed: 02/18/2018 Reviewed by: Sepideh Ansari - Fully Assessed Reason for Visit: Blood Pressure Check [195] Primary Visit Diagnosis:Elevated blood pressure reading without diagnosis of hypertension [R03.0] Prescriptions as of 03/04/2018 Sig: SYNTHROID 175 MCG TABLET Take 1 tablet by mouth every * SYNTHROID 200 MCG TABLET Take one tab by mouth 5 days * OMEPRAZOLE 40 MG CAPSULE,YARIEL* Take 1 capsule by mouth once * MUPIROCIN 2 % TOPICAL OINTMENT Apply 1 application to affect* SYNTHROID 200 MCG TABLET Take one tab by mouth 5 days * BUPROPION XL 300 MG 24 HR TAB Take 1 tablet by mouth once d* VALACYCLOVIR 500 MG TABLET Take 1 tablet by mouth once d* ASPIRIN 81 MG TABLET,DELAYED * Take 1 tablet by mouth once d* METFORMIN 500 MG TABLET Take 500 mg by mouth three ti* CHOLECALCIFEROL (VITAMIN D3) * Take 1,000 Units by mouth onc* Problem List As Of Date 03/04/2018 Noted Resolved Controlled type 2 diabetes mellitus without com*INVALID FOR* Priority: A Acquired hypothyroidism [E03.9] INVALID FOR* Priority: A Diabetic eye exam (HCC) [Z01.00, E11.9] INVALID FOR* Priority: A More... GERD without esophagitis [K21.9] INVALID FOR* Priority: A Herpes simplex infection of genitourinary syste*INVALID FOR* Priority: C Anxiety and depression [F41.9, F32.9] INVALID FOR* Priority: A Smoker [F17.200] INVALID FOR* Priority: C More... Iron deficiency anemia [D50.9] INVALID FOR* Priority: A Encounter for gynecological examination without*INVALID FOR* Priority: E More... Type 2 diabetes mellitus with diabetic neuropat*INVALID FOR* Priority: A History of TIA (transient ischemic attack) [Z86*INVALID FOR* Priority: A More... Vitamin D deficiency [E55.9] INVALID FOR* Priority: B Chronic seasonal allergic rhinitis [J30.2] INVALID FOR* Priority: B Osteopenia, senile [M85.80] INVALID FOR* Priority: M More... Carotid stenosis, asymptomatic, bilateral [I65.*INVALID FOR* Priority: A More... Medicare annual wellness visit, subsequent [Z00*INVALID FOR* Priority: E More... Current use of proton pump inhibitor [Z79.899] INVALID FOR* Classic SmartForms filed during this visit: Extended Vitals Encounter Status:Closed by KRISTI HUMMEL LPN on 03/04/18 PROGRESS Observed: 02/18/2018 Status: COMPLETED Source: [place] 1:54 PM [facility] REPOSITORY HNO ID: [id number] Author: Pablo Carmona Service: (none) Author Type: Physician Type: Progress Notes Filed: 02/18/2018 3:02 PM Note Text: Chief Complaint Patient presents with: 6 Month Exam Fall: 02/07/2018 patient stated she fell when walking up a step of her deck. Went to urgent care 02/09/2018. No significant injury noted, just bruising and soreness. ASHLYN Hicks is a 68 year old female who presents here today for Chronic Medical Conditions.. Patient with Hx as reviewed and documented below. Has felt better with the branded Synthroid then the generic. No longer losing hair. Never filled the Lipitor due to cost of over $90 a month. Past medical history, appointments, medications, allergies reviewed. Previous Medical History PAST MEDICAL HISTORY Diagnosis Date - Anxiety and depression 08/20/2017 - Controlled type 2 diabetes mellitus without complication, without long-term current use of insulin ([facility]) 05/08/2017 - Diabetic eye exam ([facility]) 07/07/2017 Last done: 06/26/2017 - DM (diabetes mellitus) ([facility]) - GERD without esophagitis 08/20/2017 - 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 - Hypothyroid - Hypothyroidism 05/08/2017 - Smoker 08/20/2017 Started at age 16 up to 1 PPD Previous Surgical History PAST SURGICAL HISTORY Procedure Laterality Date - CATARACT EXT; EYEONICS IOL SYS 11/24/2007 both - COLONOSCOPY 05/08/2008 repeat 10 yrs - CORRECT BUNION,SIMPLE 1997 left - HAMMERTOE REVISION, ONE TOE 11/24/1975 right - MENISCAL REPAIR SYS,[id number] - PROSTHESIS, BREAST, IMP 11/24/1975 - TONSILLECTOMY HX 11/24/1954 Family History FAMILY HISTORY Problem Relation Age of Onset - Cancer Mother Malignant neoplastic disease - Heart Father - Diabetes Father - Diabetes Sister - Diabetes Brother Patient Allergies ALLERGIES No Known Allergies Current Medications Current Outpatient Prescriptions on File Prior to Visit: Omeprazole 40 mg capsule Take 1 capsule by mouth once daily. mupirocin (BACTROBAN) 2 % ointment Apply 1 application to affected area three times daily. Location: thumb SYNTHROID 200 mcg tablet Take one tab by mouth 5 days a week as instructed. Take on empty stomach. For Thyroid. Please give branded synthroid buPROPion XL (WELLBUTRIN XL) 300 mg 24 hr tablet Take 1 tablet by mouth once daily. valACYclovir (VALTREX) 500 mg tablet Take 1 tablet by mouth once daily. aspirin, enteric coated (ADULT LOW DOSE ASPIRIN) 81 mg EC tablet Take 1 tablet by mouth once daily. levothyroxine (SYNTHROID) 175 mcg tablet Take 1 tablet by mouth every Friday and Friday. metFORMIN (GLUCOPHAGE) 500 mg tablet Take 500 mg by mouth three times daily. ferrous sulfate (FEOSOL) 325 mg (65 mg iron) tablet Take 325 mg by mouth daily with breakfast. Cholecalciferol, Vitamin D3, (VITAMIN D) 1,000 unit cap Take 1,000 Units by mouth once daily. atorvastatin (LIPITOR) 10 mg tablet Take 1 tablet by mouth daily at bedtime. For cholesterol. levothyroxine (LEVOXYL) 200 mcg tablet Take 1 tablet by mouth five times a week. Take 5 days a week. Take on empty stomach. For thyroid No current facility-administered medications on file prior to visit. Social History Social History Marital status: Spouse name: Years of education: Number of children: 0 Social History Main Topics Smoking status: Current Every Day Smoker Packs/day: 0.00 Years: 0.00 Smokeless status: Never Used Alcohol use: Yes Comment: rare Drug use: No Review of Symptoms REVIEW OF SYSTEMS GENERAL: No weight loss, malaise or fevers NECK: Negative for lumps, goiter, pain and significant neck swelling RESPIRATORY: Negative for cough, hemoptysis, wheezing, COPD, dyspnea or shortness of breath CARDIOVASCULAR: Negative for chest pain, leg swelling, hypertension, CHF or palpitations GI: No nausea, vomiting, or diarrhea. Heartburn controled with the PPI. Made need a tums every 2-3 weeks : No history of dysuria or blood ENDOCRINE: no low BS symptoms. NEURO: No history of headaches, syncope, paralysis, seizures or tremors EXAM: BP 154/68 (BP Site: Left Arm, BP Position: Sitting, BP Cuff Size: Regular Adult) Pulse 84 Resp 18 Wt 62 kg (136 lb 11.2 oz) BMI 21.9 kg/m2 Last 6 Encounter BP Readings: Date: BP: 02/18/2018 158/78 02/09/2018 150/90 01/20/2018 138/84 11/30/2017 142/92 08/20/2017 136/74 07/18/2017 140/80 General Appearance: Well appearing, alert, in no acute distress, well-hydrated, well nourished., Thin. Eyes: Anicteric sclera. Pupils are equally round and reactive to light. Extraocular movements are intact. . Oropharynx: Lips, mucosa, and tongue normal, teeth and gums normal, oropharynx normal. Neck: Supple, no adenopathy; thyroid symmetric, normal size, no bruits. Lungs: Lungs clear to auscultation. No wheezing, rhonchi, rales. Heart: RRR without murmur, gallop, or rubs. No ectopy. Abdomen: Normal abdominal exam, Abdomen soft, non-tender. Bowel sounds normal. No masses, organomegaly. Extremities: No deformities, edema, skin discoloration,. Musculoskeletal: Muscular strength intact. Peripheral Pulses: Normal. Neurologic: Gait normal. Sensation to light touch and crainal nerves 2-12 intact.. Health Maintenance List PNEUMOVAX AGE 65 AND OVER WITH 5YR LOOKBACK(1) due on 2015 INFLUENZA(1) due on 07/25/2017 COLORECTAL CANCER SCREENING,SEE MODIFIER due on 04/25/2018 DILATED RETINAL EXAM due on 06/26/2018 MAMMOGRAM due on 07/18/2018 HBA1C due on 08/16/2018 URINE ALBUMIN CREATININE RATIO due on 08/20/2018 DIABETIC FOOT EXAM due on 08/20/2018 TETANUS due on 11/24/2018 LDL due on 02/13/2019 BONE DENSITY Completed ADULT PREVNAR-13 Completed HEPATITIS C SCREENING Completed Data reviewed Component Latest Ref Rng AND Units 05/06/2017 07/22/2017 08/20/2017 02/13/2018 Color Yellow Yellow Clarity Clear Cloudy (A) Glucose, Urine Negative mg/dL Negative Bilirubin, Urine Negative Negative Ketones, Urine Negative Negative Specific [place], Ur 1.005 - 1.030 1.015 Hemoglobin/Blood,Ur Negative 1+ (A) pH, Urine 4.5 - 8.0 6.0 Protein, Urine Negative mg/dL Negative Urobilinogen Normal Normal Nitrites Negative Positive (A) Leukest Negative Trace (A) Comments SEE COMMENT Urine Giancarlo Comment SEE COMMENT WBC, Urine 0 - 5 /HPF 6-10 (A) RBC, Urine 0 - 3 /HPF 6-10 (A) Epithelial Cells /HPF SEE COMMENT Protein, Total 6.3 - 8.0 g/dL 7.0 Albumin 3.9 - 4.9 g/dL 4.0 Calcium 8.5 - 10.2 mg/dL 9.5 Bilirubin, Total 0.2 - 1.3 mg/dL 0.4 Alkaline Phosphatase 32 - 117 U/L 97 AST 13 - 35 U/L 29 Glucose 74 - 99 mg/dL 104 (H) BUN 7 - 21 mg/dL 20 Creatinine 0.58 - 0.96 mg/dL 0.72 Sodium 136 - 144 mmol/L 143 Potassium 3.7 - 5.1 mmol/L 4.2 Chloride 97 - 105 mmol/L 103 CO2 22 - 30 mmol/L 26 Anion Gap 9 - 18 mmol/L 14 ALT 7 - 38 U/L 24 eGFR- >60 eGFR-All Other Races . >60 Triglyceride <150 mg/dL 47 52 Cholesterol, Total <200 mg/dL 176 182 HDL Cholesterol >39 mg/dL 68 73 VLDL Cholesterol <30 mg/dL 9 10 LDL Cholesterol <100 mg/dL 99 99 Fasting Time hrs 10 1 TC:HDL Ratio <5.10 2.59 2.49 LDL:HDL Ratio <2.54 1.46 1.36 Non HDL Cholesterol <130 mg/dL 108 109 Creatinine, Ur Random (UCRR) 20 - 300 mg/dL 72.0 Albumin, Urine Random 0.0 - 23.0 mg/L <12.0 Albumin/Creat Ratio 0 - 30 mg/g Not calculated Hemoglobin A1C 4.3 - 5.6 % 6.6 (H) 6.8 (H) Estimated Average Glucose mg/dL 143 148 TSH 0.400 - 5.500 uU/mL 0.636 Magnesium 1.7 - 2.3 mg/dL 2.0 Vitamin D 25 Hydroxy 31.0 - 80.0 ng/mL 42.4 A/P ASSESSMENT/PLAN: 1. Controlled type 2 diabetes mellitus without complication, without long-term current use of insulin (HCC) - ICD9: 250.00, ICD10: E11.9 (primary diagnosis) Controlled. - Continue current medications - Daily Asprin therapy recommended 2. Type 2 diabetes mellitus with diabetic neuropathy, without long-term current use of insulin (HCC) - ICD9: 250.60, 357.2, ICD10: E11.40 Controlled. - Continue current medications - Daily Asprin therapy recommended - BP goal of <130/80 - LDL goal of <100 3. Acquired hypothyroidism - ICD9: 244.9, ICD10: E03.9 - Instructed patient on importance of taking on an empty stomach either first thing in the morning or at bedtime. - continue current dose of Synthroid 200 mcg five days a week and 175 mcg two days a week. 4. History of TIA (transient ischemic attack) - ICD9: V12.54, ICD10: Z86.73 - Cont current medications and will monitor lipids. 5. Carotid stenosis, asymptomatic, bilateral - ICD9: , ICD10: I65.23 - Will monitor with US. 6. Iron deficiency anemia, unspecified iron deficiency anemia type - ICD9: 280.9, ICD10: D50.9 - has been stable 7. GERD without esophagitis - ICD9: 530.81, ICD10: K21.9 - Continue treatment with Prilosec 40 mg QD 8. Anxiety and depression - ICD9: 300.00, 311, ICD10: F41.8 - Clinically stable 9. Vitamin D deficiency - ICD9: 268.9, ICD10: E55.9 - Stable no changes 10. Smoker - ICD9: 305.1, ICD10: F17.200 - Cessation encouraged. - Counseling was given focusing on the harmful effects of this addiction especially given the patient's medical condition(s) which will be worsened because of the chemicals in tobacco. - patient encouraged to work on quitting. F/u 6 months WAE check CMP, FLP, UA, urine albumin, CBC, Mg, Iron and A1c prior. Time with patient face to face was 25 min Pablo Carmona MD CNOV Observed: 02/18/2018 Status: COMPLETED Source: [place] 1:40 PM [facility] REPOSITORY Office Visit (FAMPWS) SALONI HICKS ([id number]) 1950 F Date Time Provider Department 02/18/18 1:40 PM PABLO CARMONA FAMPWS During your visit today, we recorded the following information about you: Pulse Respiration Blood pressure Weight 84/minute 18/minute 158/78 62 kg Pablo Carmona MD 02/18/2018 3:02 PM Signed Chief Complaint Patient presents with: 6 Month Exam Fall: 02/07/2018 patient stated she fell when walking up a step of her deck. Went to urgent care 02/09/2018. No significant injury noted, just bruising and soreness. HPI Saloni Hicks is a 68 year old female who presents here today for Chronic Medical Conditions.. Patient with Hx as reviewed and documented below. Has felt better with the branded Synthroid then the generic. No longer losing hair. Never filled the Lipitor due to cost of over $90 a month. Past medical history, appointments, medications, allergies reviewed. Previous Medical History PAST MEDICAL HISTORY Diagnosis Date - Anxiety and depression 08/20/2017 - Controlled type 2 diabetes mellitus without complication, without long-term current use of insulin (HCC) 05/08/2017 - Diabetic eye exam (HCC) 07/07/2017 Last done: 06/26/2017 - DM (diabetes mellitus) ([facility]) - GERD without esophagitis 08/20/2017 - 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 - Hypothyroid - Hypothyroidism 05/08/2017 - Smoker 08/20/2017 Started at age 16 up to 1 PPD Previous Surgical History PAST SURGICAL HISTORY Procedure Laterality Date - CATARACT EXT; EYEONICS IOL SYS 11/24/2007 both - COLONOSCOPY 05/08/2008 repeat 10 yrs - CORRECT BUNION,SIMPLE 1997 left - HAMMERTOE REVISION, ONE TOE 11/24/1975 right - MENISCAL REPAIR SYS,DREW,[id number] - PROSTHESIS, BREAST, IMP 11/24/1975 - TONSILLECTOMY HX 11/24/1954 Family History FAMILY HISTORY Problem Relation Age of Onset - Cancer Mother Malignant neoplastic disease - Heart Father - Diabetes Father - Diabetes Sister - Diabetes Brother Patient Allergies ALLERGIES No Known Allergies Current Medications Current Outpatient Prescriptions on File Prior to Visit: Omeprazole 40 mg capsule Take 1 capsule by mouth once daily. mupirocin (BACTROBAN) 2 % ointment Apply 1 application to affected area three times daily. Location: thumb SYNTHROID 200 mcg tablet Take one tab by mouth 5 days a week as instructed. Take on empty stomach. For Thyroid. Please give branded synthroid buPROPion XL (WELLBUTRIN XL) 300 mg 24 hr tablet Take 1 tablet by mouth once daily. valACYclovir (VALTREX) 500 mg tablet Take 1 tablet by mouth once daily. aspirin, enteric coated (ADULT LOW DOSE ASPIRIN) 81 mg EC tablet Take 1 tablet by mouth once daily. levothyroxine (SYNTHROID) 175 mcg tablet Take 1 tablet by mouth every Friday and Friday. metFORMIN (GLUCOPHAGE) 500 mg tablet Take 500 mg by mouth three times daily. ferrous sulfate (FEOSOL) 325 mg (65 mg iron) tablet Take 325 mg by mouth daily with breakfast. Cholecalciferol, Vitamin D3, (VITAMIN D) 1,000 unit cap Take 1,000 Units by mouth once daily. atorvastatin (LIPITOR) 10 mg tablet Take 1 tablet by mouth daily at bedtime. For cholesterol. levothyroxine (LEVOXYL) 200 mcg tablet Take 1 tablet by mouth five times a week. Take 5 days a week. Take on empty stomach. For thyroid No current facility-administered medications on file prior to visit. Social History Social History Marital status: Spouse name: Years of education: Number of children: 0 Social History Main Topics Smoking status: Current Every Day Smoker Packs/day: 0.00 Years: 0.00 Smokeless status: Never Used Alcohol use: Yes Comment: rare Drug use: No Review of Symptoms REVIEW OF SYSTEMS GENERAL: No weight loss, malaise or fevers NECK: Negative for lumps, goiter, pain and significant neck swelling RESPIRATORY: Negative for cough, hemoptysis, wheezing, COPD, dyspnea or shortness of breath CARDIOVASCULAR: Negative for chest pain, leg swelling, hypertension, CHF or palpitations GI: No nausea, vomiting, or diarrhea. Heartburn controled with the PPI. Made need a tums every 2-3 weeks : No history of dysuria or blood ENDOCRINE: no low BS symptoms. NEURO: No history of headaches, syncope, paralysis, seizures or tremors EXAM: BP 154/68 (BP Site: Left Arm, BP Position: Sitting, BP Cuff Size: Regular Adult) Pulse 84 Resp 18 Wt 62 kg (136 lb 11.2 oz) BMI 21.9 kg/m2 Last 6 Encounter BP Readings: Date: BP: 02/18/2018 158/78 02/09/2018 150/90 01/20/2018 138/84 11/30/2017 142/92 08/20/2017 136/74 07/18/2017 140/80 General Appearance: Well appearing, alert, in no acute distress, well-hydrated, well nourished., Thin. Eyes: Anicteric sclera. Pupils are equally round and reactive to light. Extraocular movements are intact. . Oropharynx: Lips, mucosa, and tongue normal, teeth and gums normal, oropharynx normal. Neck: Supple, no adenopathy; thyroid symmetric, normal size, no bruits. Lungs: Lungs clear to auscultation. No wheezing, rhonchi, rales. Heart: RRR without murmur, gallop, or rubs. No ectopy. Abdomen: Normal abdominal exam, Abdomen soft, non-tender. Bowel sounds normal. No masses, organomegaly. Extremities: No deformities, edema, skin discoloration,. Musculoskeletal: Muscular strength intact. Peripheral Pulses: Normal. Neurologic: Gait normal. Sensation to light touch and crainal nerves 2-12 intact.. Health Maintenance List PNEUMOVAX AGE 65 AND OVER WITH 5YR LOOKBACK(1) due on 2015 INFLUENZA(1) due on 07/25/2017 COLORECTAL CANCER SCREENING,SEE MODIFIER due on 04/25/2018 DILATED RETINAL EXAM due on 06/26/2018 MAMMOGRAM due on 07/18/2018 HBA1C due on 08/16/2018 URINE ALBUMIN CREATININE RATIO due on 08/20/2018 DIABETIC FOOT EXAM due on 08/20/2018 TETANUS due on 11/24/2018 LDL due on 02/13/2019 BONE DENSITY Completed ADULT PREVNAR-13 Completed HEPATITIS C SCREENING Completed Data reviewed Component Latest Ref Rng ANDamp; Units 05/06/2017 07/22/2017 08/20/2017 02/13/2018 Color Yellow Yellow Clarity Clear Cloudy (A) Glucose, Urine Negative mg/dL Negative Bilirubin, Urine Negative Negative Ketones, Urine Negative Negative Specific [place], Ur 1.005 - 1.030 1.015 Hemoglobin/Blood,Ur Negative 1+ (A) pH, Urine 4.5 - 8.0 6.0 Protein, Urine Negative mg/dL Negative Urobilinogen Normal Normal Nitrites Negative Positive (A) Leukest Negative Trace (A) Comments SEE COMMENT Urine Giancarlo Comment SEE COMMENT WBC, Urine 0 - 5 /HPF 6-10 (A) RBC, Urine 0 - 3 /HPF 6-10 (A) Epithelial Cells /HPF SEE COMMENT Protein, Total 6.3 - 8.0 g/dL 7.0 Albumin 3.9 - 4.9 g/dL 4.0 Calcium 8.5 - 10.2 mg/dL 9.5 Bilirubin, Total 0.2 - 1.3 mg/dL 0.4 Alkaline Phosphatase 32 - 117 U/L 97 AST 13 - 35 U/L 29 Glucose 74 - 99 mg/dL 104 (H) BUN 7 - 21 mg/dL 20 Creatinine 0.58 - 0.96 mg/dL 0.72 Sodium 136 - 144 mmol/L 143 Potassium 3.7 - 5.1 mmol/L 4.2 Chloride 97 - 105 mmol/L 103 CO2 22 - 30 mmol/L 26 Anion Gap 9 - 18 mmol/L 14 ALT 7 - 38 U/L 24 eGFR- ANDgt;60 eGFR-All Other Races . ANDgt;60 Triglyceride ANDlt;150 mg/dL 47 52 Cholesterol, Total ANDlt;200 mg/dL 176 182 HDL Cholesterol ANDgt;39 mg/dL 68 73 VLDL Cholesterol ANDlt;30 mg/dL 9 10 LDL Cholesterol ANDlt;100 mg/dL 99 99 Fasting Time hrs 10 1 TC:HDL Ratio ANDlt;5.10 2.59 2.49 LDL:HDL Ratio ANDlt;2.54 1.46 1.36 Non HDL Cholesterol ANDlt;130 mg/dL 108 109 Creatinine, Ur Random (UCRR) 20 - 300 mg/dL 72.0 Albumin, Urine Random 0.0 - 23.0 mg/L ANDlt;12.0 Albumin/Creat Ratio 0 - 30 mg/g Not calculated Hemoglobin A1C 4.3 - 5.6 % 6.6 (H) 6.8 (H) Estimated Average Glucose mg/dL 143 148 TSH 0.400 - 5.500 uU/mL 0.636 Magnesium 1.7 - 2.3 mg/dL 2.0 Vitamin D 25 Hydroxy 31.0 - 80.0 ng/mL 42.4 A/P ASSESSMENT/PLAN: 1. Controlled type 2 diabetes mellitus without complication, without long-term current use of insulin (HCC) - ICD9: 250.00, ICD10: E11.9 (primary diagnosis) Controlled. - Continue current medications - Daily Asprin therapy recommended 2. Type 2 diabetes mellitus with diabetic neuropathy, without long-term current use of insulin (HCC) - ICD9: 250.60, 357.2, ICD10: E11.40 Controlled. - Continue current medications - Daily Asprin therapy recommended - BP goal of ANDlt;130/80 - LDL goal of ANDlt;100 3. Acquired hypothyroidism - ICD9: 244.9, ICD10: E03.9 - Instructed patient on importance of taking on an empty stomach either first thing in the morning or at bedtime. - continue current dose of Synthroid 200 mcg five days a week and 175 mcg two days a week. 4. History of TIA (transient ischemic attack) - ICD9: V12.54, ICD10: Z86.73 - Cont current medications and will monitor lipids. 5. Carotid stenosis, asymptomatic, bilateral - ICD9: , ICD10: I65.23 - Will monitor with US. 6. Iron deficiency anemia, unspecified iron deficiency anemia type - ICD9: 280.9, ICD10: D50.9 - has been stable 7. GERD without esophagitis - ICD9: 530.81, ICD10: K21.9 - Continue treatment with Prilosec 40 mg QD 8. Anxiety and depression - ICD9: 300.00, 311, ICD10: F41.8 - Clinically stable 9. Vitamin D deficiency - ICD9: 268.9, ICD10: E55.9 - Stable no changes 10. Smoker - ICD9: 305.1, ICD10: F17.200 - Cessation encouraged. - Counseling was given focusing on the harmful effects of this addiction especially given the patient's medical condition(s) which will be worsened because of the chemicals in tobacco. - patient encouraged to work on quitting. F/u 6 months WAE check CMP, FLP, UA, urine albumin, CBC, Mg, Iron and A1c prior. Time with patient face to face was 25 min MD Pablo Mccray MD 02/18/2018 2:22 PM Signed Please get fasting labs and urine testing done on or after 08/14/2018 prior to next visit. Referring Provider: SELF [200] Allergies As of Date: 02/18/2018 (No Known Allergies) Date Reviewed: 02/18/2018 Reviewed by: Sepideh Ansari - Fully Assessed Reason for Visit: 6 Month Exam [189] Fall [218] Cmt: 02/07/2018 patient stated she fell when walking up a step of her deck. Went to urgent care 02/09/2018. No significant injury noted, just bruising and soreness. Primary Visit Diagnosis:Controlled type 2 diabetes mellitus without complication, without long-term current use of insulin (HCC) [E11.9] Other Visit Diagnoses:Type 2 diabetes mellitus with diabetic neuropathy, without long-term current use of insulin (HCC) [E11.40] Acquired hypothyroidism [E03.9] History of TIA (transient ischemic attack) [Z86.73] Carotid stenosis, asymptomatic, bilateral [I65.23] Iron deficiency anemia, unspecified iron deficiency anemia type [D50.9] GERD without esophagitis [K21.9] Anxiety and depression [F41.8] Vitamin D deficiency [E55.9] Smoker [F17.200] Current use of proton pump inhibitor [Z79.899] Order(s):[START ON 02/20/2018] SYNTHROID 175 mcg tabletTake 1 tablet by mouth every Friday and Friday.Disp: 24 tabletRfl: 1 SYNTHROID 200 mcg tabletTake one tab by mouth 5 days a weeks. Take on empty stomach. For Thyroid.Disp: 60 tabletRfl: 1 COMP METABOLIC PANEL [SQCMP] Order #: [id number] FUTURE VITAMIN D 25 HYDROXY [SQVITD] Order #: [id number] FUTURE HGB A1C [XZUQD1K] Order #: [id number] FUTURE LIPID PANEL BASIC [SQLIPB] Order #: [id number] FUTURE TSH BLD [SQTSH] Order #: [id number] FUTURE URINALYSIS WITH MICROSCOPIC [SQUAWMIC] Order #: [id number] FUTURE ALBUMIN/CREAT RATIO RND UR [SQUACR] Order #: [id number] FUTURE IRON + TIBC [SQIRON] Order #: [id number] FUTURE CBC + DIFF [SQCBCDIF] Order #: [id number] FUTURE MAGNESIUM BLD [SQMG1] Order #: [id number] FUTURE Prescriptions as of 02/18/2018 Sig: SYNTHROID 175 MCG TABLET Take 1 tablet by mouth every * OMEPRAZOLE 40 MG CAPSULE,YARIEL* Take 1 capsule by mouth once * MUPIROCIN 2 % TOPICAL OINTMENT Apply 1 application to affect* SYNTHROID 200 MCG TABLET Take one tab by mouth 5 days * BUPROPION XL 300 MG 24 HR TAB Take 1 tablet by mouth once d* VALACYCLOVIR 500 MG TABLET Take 1 tablet by mouth once d* ASPIRIN 81 MG TABLET,DELAYED * Take 1 tablet by mouth once d* METFORMIN 500 MG TABLET Take 500 mg by mouth three ti* CHOLECALCIFEROL (VITAMIN D3) * Take 1,000 Units by mouth onc* SYNTHROID 200 MCG TABLET Take one tab by mouth 5 days * Problem List As Of Date 02/18/2018 Noted Resolved Controlled type 2 diabetes mellitus without com*INVALID FOR* Priority: A Acquired hypothyroidism [E03.9] INVALID FOR* Priority: A Diabetic eye exam (HCC) [E11.9, Z01.00] INVALID FOR* Priority: A More... GERD without esophagitis [K21.9] INVALID FOR* Priority: A Herpes simplex infection of genitourinary syste*INVALID FOR* Priority: C Anxiety and depression [F41.8] INVALID FOR* Priority: A Smoker [F17.200] INVALID FOR* Priority: C More... Iron deficiency anemia [D50.9] INVALID FOR* Priority: A Encounter for gynecological examination without*INVALID FOR* Priority: E More... Type 2 diabetes mellitus with diabetic neuropat*INVALID FOR* Priority: A History of TIA (transient ischemic attack) [Z86*INVALID FOR* Priority: A More... Vitamin D deficiency [E55.9] INVALID FOR* Priority: B Chronic seasonal allergic rhinitis [J30.2] INVALID FOR* Priority: B Osteopenia, senile [M85.80] INVALID FOR* Priority: M More... Carotid stenosis, asymptomatic, bilateral [I65.*INVALID FOR* Priority: A More... Medicare annual wellness visit, subsequent [Z00*INVALID FOR* Priority: E More... Current use of proton pump inhibitor [Z79.899] INVALID FOR* Other instructions from your clinician: Please get fasting labs and urine testing done on or after 08/14/2018 prior to next visit. Prescriptions ordered this encounter Disp Refills Start End SYNTHROID 175 MCG TABLET 24 t* 1 02/20/2018 Cmt: Generic was not effective. Route: ORAL Sig: Take 1 tablet by mouth every Friday and Friday. SYNTHROID 200 MCG TABLET 60 t* 1 02/18/2018 Cmt: Generic was not effective. Sig: Take one tab by mouth 5 days a weeks. Take on empty stomach. For Thyroid. Medications Discontinued During This Encounter atorvastatin (LIPITOR) 10 mg tablet 30 t* 5 09/10/2017 02/18/2018 Route: ORAL Sig: Take 1 tablet by mouth daily at bedtime. For cholesterol. Disc: Cost of medication ferrous sulfate (FEOSOL) 325 mg (65 * 02/18/2018 Class: Historical Med Route: ORAL Sig: Take 325 mg by mouth daily with breakfast. Disc: Discontinued by Patient levothyroxine (LEVOXYL) 200 mcg tabl* 20 t* 5 06/26/2017 02/18/2018 Route: ORAL Sig: Take 1 tablet by mouth five times a week. Take 5 days a week. Take on empty stomach. For thyroid Disc: Duplicate Entry levothyroxine (SYNTHROID) 175 mcg ta* 06/27/2017 02/18/2018 Class: Med Update Route: ORAL Sig: Take 1 tablet by mouth every Friday and Friday. Disc: Reason for discontinue is not on file. Disposition: Return in about 6 months (around 08/21/2018) for complete PE. Follow-up and Disposition History Recorded Encounter Status:Closed by PABLO CARMONA on 02/18/18 COMP METABOLIC PANEL Collected: 02/13/2018 Status: F Source: [place] 8:30 AM [facility] REPOSITORY TYPE CODE TESTS RESULT OUT OF REFERENCE UNITS RANGE LAB TP 6.3-8.0 g/dL Protein, Total 7.0 LAB ALB 3.9-4.9 g/dL Albumin 4.0 LAB CA 8.5-10.2 mg/dL Calcium, Total 9.5 LAB TBIL 0.2-1.3 mg/dL Bilirubin, Total 0.4 LAB ALKP 32-117 U/L Alkaline Phosphatase 97 LAB AST 13-35 U/L AST 29 LAB GLU 74-99 mg/dL Glucose High 104 Result Comment: The [place] Diabetes Association (ADA) provides guidance for cutoff values for fasting glucose and random glucose. The ADA defines fasting as no caloric intake for at least 8 hours. Fas ting plasma glucose results between 100 to 125 mg/dL indicate increased risk for diabetes (prediabetes). Fasting plasma glucose results greater than or equal to 126 mg/dL meet the criteria for diagnosis of diabetes. In the absence of unequivocal hyperglycemia, results should be confirmed by repeat testing. In a patient with classic symptoms of hyperglycemia or hyperglycemic crisis, random plasma glucose results greater than or equal to 200 mg/dL meet the criteria for diagnosis of diabetes. Reference: Standards of Medical Care in Diabetes 2016, [place] [employer] Association. Diabetes Care. 2016.39(Suppl 1). LAB BUN 7-21 mg/dL BUN 20 LAB CRET 0.58-0.96 mg/dL Creatinine 0.72 LAB NA 136-144 mmol/L Sodium 143 LAB K 3.7-5.1 mmol/L Potassium 4.2 LAB CL 97-105 mmol/L Chloride 103 LAB CO2 22-30 mmol/L CO2 26 LAB AGAP 9-18 mmol/L Anion Gap 14 LAB ALT 7-38 U/L ALT 24 LAB GFRAA eGFR- Amer. >60 LAB GFRNAA . eGFR-All Other Races >60 Result Comment: eGFR (Estimated GFR) Units of measure: mL/min/1.73 meters squared eGFR is derived from the reexpressed MDRD Study equation using the following parameters: serum creatinine, age, gender and race. The creatinine assay has been calibrated to be traceable to IDMS. An eGFR <60 mL/min/1.73m2 for >3 months is consistent with chronic kidney disease. Refer to KDOQI guidelines for clinical interpretation. In patients with unstable renal function, e.g. those with acute kidney injury, the eGFR may not accurately reflect actual GFR. Performed By: #### CMP, LIPB, HBA1C, VITD #### [facility] [address] [place], [place] [address] LIPID PANEL, BASIC Collected: 02/13/2018 Status: F Source: [place] 8:30 AM [facility] REPOSITORY TYPE CODE TESTS RESULT OUT OF REFERENCE UNITS RANGE LAB CHOL <200 mg/dL Cholesterol 182 Result Comment: <200 mg/dL, Desirable 200-239 mg/dL, Borderline high >239 mg/dL, High LAB TRIGLY <150 mg/dL Triglyceride 52 Result Comment: <150 mg/dL, Normal 150-199 mg/dL, Borderline high 200-499 mg/dL, High >499 mg/dL, Very high LAB HDL >39 mg/dL HDL-Cholesterol 73 Result Comment: 40-59 mg/dL, Acceptable >59 mg/dL, High: Negative risk factor for coronary heart disease <40 mg/dL, Low: Positive risk factor for coronary heart disease LAB LDL <100 mg/dL LDL-Cholesterol 99 Result Comment: <100 mg/dL, Optimal 100-129 mg/dL, Near optimal/above optimal 130-159 mg/dL, Borderline high 160-189 mg/dL, High >189 mg/dL, Very high Secondary prevention optimal LDL Cholesterol levels are recommended to be < 70 mg/dL LAB NONHDL <130 mg/dL Non HDL Cholesterol 109 Result Comment: <130 mg/dL, Optimal 130-159 mg/dL, Near optimal/above optimal 160-189 mg/dL, Borderline high 190-219 mg/dL, High >219 mg/dL, Very high Secondary prevention optimal non HDL Cholesterol levels are recommended to be < 100 mg/dL LAB FT hrs Fasting Time 1 LAB VLDL <30 mg/dL VLDL Cholesterol 10 LAB TCHDL <5.10 TC:HDL Ratio 2.49 LAB LDLHDL <2.54 LDL:HDL Ratio 1.36 Result Comment: Reference: 1. National Cholesterol Education Program ATP III Guideline At-A-Glance Quick Desk Reference: National Heart, Lung, and Blood [place]. National Institutes of Health. 2001: NIH Publication No. 01-3305. 2. An International Atherosclerosis Society position paper: global recommendations for the management of dyslipidemia: executive summary, Atherosclerosis. 2014: 232(2):410-413. Performed By: #### CMP, LIPB, HBA1C, VITD #### [facility] [address] [place], [place] [address] HEMOGLOBIN A1C Collected: 02/13/2018 Status: F Source: [place] 8:30 AM [facility] REPOSITORY TYPE CODE TESTS RESULT OUT OF REFERENCE UNITS RANGE LAB HGBA1C 4.3-5.6 % High Hemoglobin A1c 6.8 LAB HBA0 mg/dL Est. Average Glucose 148 Result Comment: eAG: (Estimated average glucose) is a calculated value from HgbA1c and is benefits representative of the average blood glucose level in the last 2-3 month period. Performed By: #### CMP, LIPB, HBA1C, VITD #### [facility] [address] [place], [place] [address] VITAMIN D 25 HYDROXY Collected: 02/13/2018 Status: F Source: [place] 8:30 AM [facility] REPOSITORY TYPE CODE TESTS RESULT OUT OF REFERENCE UNITS RANGE LAB VITD 31.0-80.0 ng/mL Vitamin D 25 42.4 Hydroxy Result Comment: Classification of 25 [place] Vitamin D status: Insufficiency/Moderate Deficiency: < or = 30 ng/mL Sufficiency/Optimal Levels: 31 to 80 ng/mL Toxicity: > 100 ng/mL Test performed by chemiluminescent immunoassay. Performed By: #### CMP, LIPB, HBA1C, VITD #### [facility] [address] [place], [place] [address] PROGRESS Observed: 02/09/2018 Status: COMPLETED Source: [place] 11:17 AM [facility] REPOSITORY HNO ID: [id number] Author: Ron Lee (Field Party Manager) Goucher Service: (none) Author Type: Nurse Practitioner Type: Progress Notes Filed: 02/09/2018 11:34 AM Note Text: Subjective HPI HPI Saloni Hicks is a 68 year old female who presents today for CC of fall 2 days ago flat on her face while she was going up steps. She is here to have her abrasions on her face looked at and she having pain in her ribs, worse with movement not with breathing. She has been using topical bacitracin that she has at home and has been using alieve for her pain which is helping ACTIVE PROBLEM LIST Controlled Type 2 Diabetes Mellitus Without Complication, Without Long-Term Current Use of Insulin (Hcc) Acquired Hypothyroidism Diabetic Eye Exam (Hcc) Gerd Without Esophagitis Herpes Simplex Infection of Genitourinary System Anxiety and Depression Smoker Iron Deficiency Anemia Encounter for Gynecological Examination Without Abnormal Finding Type 2 Diabetes Mellitus With Diabetic Neuropathy (Hcc) History of Tia (Transient Ischemic Attack) Vitamin D Deficiency Chronic Seasonal Allergic Rhinitis Osteopenia, Senile Carotid Stenosis, Asymptomatic, Bilateral BP 150/90 (BP Site: Left Arm, BP Position: Sitting, BP Cuff Size: Regular Adult) Pulse 89 Temp 37.2 ?C (98.9 ?F) (Left Tympanic) Resp 16 Wt 62.1 kg (136 lb 12.8 oz) SpO2 98% BMI 21.91 kg/m2 ALLERGIES No Known Allergies Current Outpatient Prescriptions: Omeprazole 40 mg capsule Take 1 capsule by mouth once daily. Disp: 90 capsule Rfl: 1 mupirocin (BACTROBAN) 2 % ointment Apply 1 application to affected area three times daily. Location: thumb Disp: 30 g Rfl: 0 SYNTHROID 200 mcg tablet Take one tab by mouth 5 days a week as instructed. Take on empty stomach. For Thyroid. Please give branded synthroid Disp: 60 tablet Rfl: 1 buPROPion XL (WELLBUTRIN XL) 300 mg 24 hr tablet Take 1 tablet by mouth once daily. Disp: 90 tablet Rfl: 3 valACYclovir (VALTREX) 500 mg tablet Take 1 tablet by mouth once daily. Disp: 7 tablet Rfl: 3 aspirin, enteric coated (ADULT LOW DOSE ASPIRIN) 81 mg EC tablet Take 1 tablet by mouth once daily. Disp: Rfl: 0 levothyroxine (SYNTHROID) 175 mcg tablet Take 1 tablet by mouth every Friday and Friday. Disp: Rfl: levothyroxine (LEVOXYL) 200 mcg tablet Take 1 tablet by mouth five times a week. Take 5 days a week. Take on empty stomach. For thyroid Disp: 20 tablet Rfl: 5 metFORMIN (GLUCOPHAGE) 500 mg tablet Take 500 mg by mouth three times daily. Disp: Rfl: ferrous sulfate (FEOSOL) 325 mg (65 mg iron) tablet Take 325 mg by mouth daily with breakfast. Disp: Rfl: Cholecalciferol, Vitamin D3, (VITAMIN D) 1,000 unit cap Take 1,000 Units by mouth once daily. Disp: Rfl: atorvastatin (LIPITOR) 10 mg tablet Take 1 tablet by mouth daily at bedtime. For cholesterol. Disp: 30 tablet Rfl: 5 No current facility-administered medications for this visit. Review of Systems Constitutional: Negative for chills and fever. Eyes: Negative for blurred vision, double vision, photophobia and pain. Respiratory: Negative for cough, shortness of breath and wheezing. Cardiovascular: Positive for chest pain (lower bilateral rib pain, only with movement). Negative for palpitations and orthopnea. Musculoskeletal: Positive for falls. Neurological: Negative for dizziness, loss of consciousness and headaches. Objective Physical Exam Constitutional: She is oriented to person, place, and time and well-developed, well-nourished, and in no distress. No distress. HENT: Head: Normocephalic and atraumatic. Cardiovascular: Normal rate, regular rhythm and normal heart sounds. No murmur heard. Pulmonary/Chest: Effort normal and breath sounds normal. No respiratory distress. She has no wheezes. She exhibits no tenderness. Musculoskeletal: Normal range of motion. Neurological: She is alert and oriented to person, place, and time. Gait normal. GCS score is 15. Skin: Skin is warm and dry. Abrasion (noted to the end of her nose and her chin ) and bruising (surrounding her chin and some noted under the left eye) noted. She is not diaphoretic. Psychiatric: Affect and judgment normal. ASSESSMENT/PLAN: 1. Abrasions of multiple sites - ICD9: 919.0, ICD10: T07.XXXA (primary diagnosis) - keep sites clean, dry and ok to use topical bacitracin that she has been using 2. Rib pain - ICD9: 786.50, ICD10: R07.81 Atypical chest pain, symptoms are not consistent with cardiac ischemia due to fall - ok to use anti-inflammatories and alternating with tylenol - if any trouble with shortness of breath or breathing seek immediate attention - patient declined xray to check for broken ribs, I also did not feel the exam required a chest xray Ron Pradhan CNP CNOV Observed: 02/09/2018 Status: COMPLETED Source: [place] 10:45 AM [facility] REPOSITORY [facility] SALONI HICKS ([id number]) 1950 F Date Time Provider Department 02/09/18 10:45 AM RON PRADHAN (ELIZABETH) [facility] During your visit today, we recorded the following information about you: Temperature Pulse Respiration Blood pressure 98.9 degrees 89/minute 16/minute 150/90 Weight 62.1 kg Ron Pradhan CNP 02/09/2018 11:34 AM Signed Subjective HPI HPI Saloni Hicks is a 68 year old female who presents today for CC of fall 2 days ago flat on her face while she was going up steps. She is here to have her abrasions on her face looked at and she having pain in her ribs, worse with movement not with breathing. She has been using topical bacitracin that she has at home and has been using alieve for her pain which is helping ACTIVE PROBLEM LIST Controlled Type 2 Diabetes Mellitus Without Complication, Without Long-Term Current Use of Insulin ([facility]) Acquired Hypothyroidism Diabetic Eye Exam ([facility]) Gerd Without Esophagitis Herpes Simplex Infection of Genitourinary System Anxiety and Depression Smoker Iron Deficiency Anemia Encounter for Gynecological Examination Without Abnormal Finding Type 2 Diabetes Mellitus With Diabetic Neuropathy ([facility]) History of Tia (Transient Ischemic Attack) Vitamin D Deficiency Chronic Seasonal Allergic Rhinitis Osteopenia, Senile Carotid Stenosis, Asymptomatic, Bilateral BP 150/90 (BP Site: Left Arm, BP Position: Sitting, BP Cuff Size: Regular Adult) Pulse 89 Temp 37.2 ?C (98.9 ?F) (Left Tympanic) Resp 16 Wt 62.1 kg (136 lb 12.8 oz) SpO2 98% BMI 21.91 kg/m2 ALLERGIES No Known Allergies Current Outpatient Prescriptions: Omeprazole 40 mg capsule Take 1 capsule by mouth once daily. Disp: 90 capsule Rfl: 1 mupirocin (BACTROBAN) 2 % ointment Apply 1 application to affected area three times daily. Location: thumb Disp: 30 g Rfl: 0 SYNTHROID 200 mcg tablet Take one tab by mouth 5 days a week as instructed. Take on empty stomach. For Thyroid. Please give branded synthroid Disp: 60 tablet Rfl: 1 buPROPion XL (WELLBUTRIN XL) 300 mg 24 hr tablet Take 1 tablet by mouth once daily. Disp: 90 tablet Rfl: 3 valACYclovir (VALTREX) 500 mg tablet Take 1 tablet by mouth once daily. Disp: 7 tablet Rfl: 3 aspirin, enteric coated (ADULT LOW DOSE ASPIRIN) 81 mg EC tablet Take 1 tablet by mouth once daily. Disp: Rfl: 0 levothyroxine (SYNTHROID) 175 mcg tablet Take 1 tablet by mouth every Friday and Friday. Disp: Rfl: levothyroxine (LEVOXYL) 200 mcg tablet Take 1 tablet by mouth five times a week. Take 5 days a week. Take on empty stomach. For thyroid Disp: 20 tablet Rfl: 5 metFORMIN (GLUCOPHAGE) 500 mg tablet Take 500 mg by mouth three times daily. Disp: Rfl: ferrous sulfate (FEOSOL) 325 mg (65 mg iron) tablet Take 325 mg by mouth daily with breakfast. Disp: Rfl: Cholecalciferol, Vitamin D3, (VITAMIN D) 1,000 unit cap Take 1,000 Units by mouth once daily. Disp: Rfl: atorvastatin (LIPITOR) 10 mg tablet Take 1 tablet by mouth daily at bedtime. For cholesterol. Disp: 30 tablet Rfl: 5 No current facility-administered medications for this visit. Review of Systems Constitutional: Negative for chills and fever. Eyes: Negative for blurred vision, double vision, photophobia and pain. Respiratory: Negative for cough, shortness of breath and wheezing. Cardiovascular: Positive for chest pain (lower bilateral rib pain, only with movement). Negative for palpitations and orthopnea. Musculoskeletal: Positive for falls. Neurological: Negative for dizziness, loss of consciousness and headaches. Objective Physical Exam Constitutional: She is oriented to person, place, and time and well-developed, well-nourished, and in no distress. No distress. HENT: Head: Normocephalic and atraumatic. Cardiovascular: Normal rate, regular rhythm and normal heart sounds. No murmur heard. Pulmonary/Chest: Effort normal and breath sounds normal. No respiratory distress. She has no wheezes. She exhibits no tenderness. Musculoskeletal: Normal range of motion. Neurological: She is alert and oriented to person, place, and time. Gait normal. GCS score is 15. Skin: Skin is warm and dry. Abrasion (noted to the end of her nose and her chin ) and bruising (surrounding her chin and some noted under the left eye) noted. She is not diaphoretic. Psychiatric: Affect and judgment normal. ASSESSMENT/PLAN: 1. Abrasions of multiple sites - ICD9: 919.0, ICD10: T07.XXXA (primary diagnosis) - keep sites clean, dry and ok to use topical bacitracin that she has been using 2. Rib pain - ICD9: 786.50, ICD10: R07.81 Atypical chest pain, symptoms are not consistent with cardiac ischemia due to fall - ok to use anti-inflammatories and alternating with tylenol - if any trouble with shortness of breath or breathing seek immediate attention - patient declined xray to check for broken ribs, I also did not feel the exam required a chest xray ELIZABETH Good CNP 02/09/2018 11:28 AM Signed ASSESSMENT/PLAN: 1. Abrasions of multiple sites - ICD9: 919.0, ICD10: T07.XXXA (primary diagnosis) - keep sites clean, dry and ok to use topical bacitracin that she has been using 2. Rib pain - ICD9: 786.50, ICD10: R07.81 Atypical chest pain, symptoms are not consistent with cardiac ischemia due to fall - ok to use anti-inflammatories and alternating with tylenol - if any trouble with shortness of breath or breathing seek immediate attention Referring Provider: SELF [200] Allergies As of Date: 02/09/2018 (No Known Allergies) Date Reviewed: 02/09/2018 Reviewed by: Ron Carter) Lorne - Fully Assessed Reason for Visit: Fall [218] Primary Visit Diagnosis:Abrasions of multiple sites [T07.XXXA] Other Visit Diagnosis:Rib pain [R07.81] Prescriptions as of 02/09/2018 Sig: OMEPRAZOLE 40 MG CAPSULE,YARIEL* Take 1 capsule by mouth once * MUPIROCIN 2 % TOPICAL OINTMENT Apply 1 application to affect* SYNTHROID 200 MCG TABLET Take one tab by mouth 5 days * BUPROPION XL 300 MG 24 HR TAB Take 1 tablet by mouth once d* VALACYCLOVIR 500 MG TABLET Take 1 tablet by mouth once d* ASPIRIN 81 MG TABLET,DELAYED * Take 1 tablet by mouth once d* LEVOTHYROXINE 175 MCG TABLET Take 1 tablet by mouth every * LEVOTHYROXINE 200 MCG TABLET Take 1 tablet by mouth five t* METFORMIN 500 MG TABLET Take 500 mg by mouth three ti* FERROUS SULFATE 325 MG (65 MG* Take 325 mg by mouth daily wi* CHOLECALCIFEROL (VITAMIN D3) * Take 1,000 Units by mouth onc* ATORVASTATIN 10 MG TABLET Take 1 tablet by mouth daily * Medication notes this encounter OMEPRAZOLE 40 MG CAPSULE,DELAYED RELEASE >> Paula Duncan Ma 02/09/2018 11:04 AM >> PAULA DUNCAN MA Feb 09, 2018 11:04 AM 2 capsules in the morning. Problem List As Of Date 02/09/2018 Noted Resolved Controlled type 2 diabetes mellitus without com*INVALID FOR* Priority: A More... Acquired hypothyroidism [E03.9] INVALID FOR* Priority: A More... Diabetic eye exam (HCC) [E11.9, Z01.00] INVALID FOR* Priority: A More... GERD without esophagitis [K21.9] INVALID FOR* Priority: A Herpes simplex infection of genitourinary syste*INVALID FOR* Priority: C Anxiety and depression [F41.8] INVALID FOR* Priority: A Smoker [F17.200] INVALID FOR* Priority: C More... Iron deficiency anemia [D50.9] INVALID FOR* Priority: A Encounter for gynecological examination without*INVALID FOR* Priority: E More... Type 2 diabetes mellitus with diabetic neuropat*INVALID FOR* Priority: A History of TIA (transient ischemic attack) [Z86*INVALID FOR* Priority: A More... Vitamin D deficiency [E55.9] INVALID FOR* Priority: B Chronic seasonal allergic rhinitis [J30.2] INVALID FOR* Priority: B Osteopenia, senile [M85.80] INVALID FOR* Priority: M More... Carotid stenosis, asymptomatic, bilateral [I65.*INVALID FOR* Priority: A More... Other instructions from your clinician: ASSESSMENT/PLAN: 1. Abrasions of multiple sites - ICD9: 919.0, ICD10: T07.XXXA (primary diagnosis) - keep sites clean, dry and ok to use topical bacitracin that she has been using 2. Rib pain - ICD9: 786.50, ICD10: R07.81 Atypical chest pain, symptoms are not consistent with cardiac ischemia due to fall - ok to use anti-inflammatories and alternating with tylenol - if any trouble with shortness of breath or breathing seek immediate attention Encounter Status:Closed by RON PRADHAN on 02/09/18 STEPHEN Observed: 02/03/2018 Status: COMPLETED Source: [place] 12:00 AM [facility] REPOSITORY Patient Outreach ([facility]) FABIOLASALONI ([id number]) 1950 F Date Time Provider Department 02[facility]03[facility] During your visit today, we recorded the following information about you: Allergies As of Date: 02/03/2018 (No Known Allergies) Date Reviewed: 01/20/2018 Reviewed by: Ángela Santacruz Ma - Fully Assessed Primary Visit Diagnosis:Type 2 diabetes mellitus with diabetic neuropathy, without long-term current use of insulin (HCC) [E11.40] Other Visit Diagnoses:Medication management [Z79.899] Vitamin D deficiency [E55.9] Order(s):HGB A1C [DYTDT2K] Order #: [id number] FUTURE COMP METABOLIC PANEL [SQCMP] Order #: [id number] FUTURE LIPID PANEL BASIC [SQLIPB] Order #: [id number] FUTURE VITAMIN D 25 HYDROXY [SQVITD] Order #: [id number] FUTURE Prescriptions as of 02/03/2018 Sig: X OMEPRAZOLE 40 MG CAPSULE,YARIEL* Take 1 capsule by mouth once * MUPIROCIN 2 % TOPICAL OINTMENT Apply 1 application to affect* Patient not taking: Reported on 06/25/2018 SYNTHROID 200 MCG TABLET Take one tab by mouth 5 days * X ATORVASTATIN 10 MG TABLET Take 1 tablet by mouth daily * ASPIRIN 81 MG TABLET,DELAYED * Take 1 tablet by mouth once d* X BUPROPION XL 300 MG 24 HR TAB Take 1 tablet by mouth once d* X VALACYCLOVIR 500 MG TABLET Take 1 tablet by mouth once d* X LEVOTHYROXINE 175 MCG TABLET Take 1 tablet by mouth every * X LEVOTHYROXINE 200 MCG TABLET Take 1 tablet by mouth five t* CHOLECALCIFEROL (VITAMIN D3) * Take 1,000 Units by mouth onc* X METFORMIN 500 MG TABLET Take 500 mg by mouth three ti* X FERROUS SULFATE 325 MG (65 MG* Take 325 mg by mouth daily wi* Problem List As Of Date 02/03/2018 Noted Resolved Controlled type 2 diabetes mellitus without com*INVALID FOR* Priority: A Acquired hypothyroidism [E03.9] INVALID FOR* Priority: A Diabetic eye exam (HCC) [Z01.00, E11.9] INVALID FOR* Priority: A More... GERD without esophagitis [K21.9] INVALID FOR* Priority: A Herpes simplex infection of genitourinary syste*INVALID FOR* Priority: C Anxiety and depression [F41.9, F32.9] INVALID FOR* Priority: A Smoker [F17.200] INVALID FOR* Priority: C More... Iron deficiency anemia [D50.9] INVALID FOR* Priority: A Encounter for gynecological examination without*INVALID FOR* Priority: E More... Type 2 diabetes mellitus with diabetic neuropat*INVALID FOR* Priority: A History of TIA (transient ischemic attack) [Z86*INVALID FOR* Priority: A More... Vitamin D deficiency [E55.9] INVALID FOR* Priority: B Chronic seasonal allergic rhinitis [J30.2] INVALID FOR* Priority: B Osteopenia, senile [M85.80] INVALID FOR* Priority: M More... Carotid stenosis, asymptomatic, bilateral [I65.*INVALID FOR* Priority: A More... Encounter Status:Closed by EPIC, PRODUSER on 09/04/18 PROGRESS Observed: 01/30/2018 Status: COMPLETED Source: [place] 3:30 PM [facility] [place] REPOSITORY O ID: [id number] Author: Jillian Schwartz (Jasmin) ELIZABETH Perez Service: (none) Author Type: Nurse Practitioner Type: Progress Notes Filed: 01/30/2018 4:00 PM Note Text: Subjective HPI Patient presents with: Nausea: upset stomach x 7 weeks Pt has hx of GERD, was taking Omeprazole, but out of medication for a while and restarted at end of October with mild relief. Review of Systems Constitutional: Negative for chills, fever and malaise/fatigue. Cardiovascular: Negative for chest pain and palpitations. Gastrointestinal: Positive for heartburn and nausea. Negative for abdominal pain, blood in stool, constipation, diarrhea, melena and vomiting. PAST MEDICAL HISTORY Diagnosis Date - Anxiety and depression 08/20/2017 - Controlled type 2 diabetes mellitus without complication, without long-term current use of insulin ([facility]) 05/08/2017 - Diabetic eye exam ([facility]) 07/07/2017 Last done: 06/26/2017 - DM (diabetes mellitus) ([facility]) - GERD without esophagitis 08/20/2017 - 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 - Hypothyroid - Hypothyroidism 05/08/2017 - Smoker 08/20/2017 Started at age 16 up to 1 PPD PAST SURGICAL HISTORY Procedure Laterality Date - CATARACT EXT; EYEONICS IOL SYS 11/24/2007 both - COLONOSCOPY 05/08/2008 repeat 10 yrs - CORRECT BUNION,SIMPLE 1997 left - HAMMERTOE REVISION, ONE TOE 11/24/1975 right - MENISCAL REPAIR SYS,CD,[id number] - PROSTHESIS, BREAST, IMP 11/24/1975 - TONSILLECTOMY HX 11/24/1954 ALLERGIES Review of patient's allergies indicates no known allergies. MEDICATIONS omeprazole (PRILOSEC) 20 mg capsule Take 2 capsules by mouth once daily. mupirocin (BACTROBAN) 2 % ointment Apply 1 application to affected area three times daily. Location: thumb SYNTHROID 200 mcg tablet Take one tab by mouth 5 days a week as instructed. Take on empty stomach. For Thyroid. Please give branded synthroid buPROPion XL (WELLBUTRIN XL) 300 mg 24 hr tablet Take 1 tablet by mouth once daily. valACYclovir (VALTREX) 500 mg tablet Take 1 tablet by mouth once daily. aspirin, enteric coated (ADULT LOW DOSE ASPIRIN) 81 mg EC tablet Take 1 tablet by mouth once daily. levothyroxine (SYNTHROID) 175 mcg tablet Take 1 tablet by mouth every Friday and Friday. levothyroxine (LEVOXYL) 200 mcg tablet Take 1 tablet by mouth five times a week. Take 5 days a week. Take on empty stomach. For thyroid metFORMIN (GLUCOPHAGE) 500 mg tablet Take 500 mg by mouth three times daily. ferrous sulfate (FEOSOL) 325 mg (65 mg iron) tablet Take 325 mg by mouth daily with breakfast. Cholecalciferol, Vitamin D3, (VITAMIN D) 1,000 unit cap Take 1,000 Units by mouth once daily. atorvastatin (LIPITOR) 10 mg tablet Take 1 tablet by mouth daily at bedtime. For cholesterol. FAMILY HISTORY Problem Relation Age of Onset - Cancer Mother Malignant neoplastic disease - Heart Father - Diabetes Father - Diabetes Sister - Diabetes Brother Social History Substance Use Topics - Smoking status: Current Every Day Smoker - Smokeless tobacco: Never Used - Alcohol use Yes Comment: rare Objective Physical Exam Constitutional: She is well-developed, well-nourished, and in no distress. HENT: Mouth/Throat: Oropharynx is clear and moist. Eyes: Conjunctivae are normal. Neck: Normal range of motion. Cardiovascular: Normal rate, regular rhythm and normal heart sounds. Pulmonary/Chest: Effort normal and breath sounds normal. Abdominal: Soft. Bowel sounds are normal. She exhibits no distension. There is no tenderness. Nursing note and vitals reviewed. ASSESSMENT/PLAN: 1. Nausea - ICD9: 787.02, ICD10: R11.0 (primary diagnosis) -denied need for Zofran -f/u with PCP 1-3 days 2. GERD without esophagitis - ICD9: 530.81, ICD10: K21.9 - Discussed lifestyle modifications including losing weight, limiting caffeine, no meals three hours before sleep and head of bed elevation - Continue treatment with Prilosec 40 mg QD - Follow up in 1-2 weeks Prescription instructions reviewed with patient as applicable. Patient advised if symptoms do not improve or if symptoms worsen sooner, to contact their primary care physician. Potential red flag symptoms discussed with the patient. Reviewed appropriate action plan to take if red flag symptoms occur. Patient agreeable to treatment plan. Jillian Perez CNP CNOV Observed: 01/20/2018 Status: COMPLETED Source: [place] 5:45 PM [facility] REPOSITORY Office Visit ([facility]) SALONI HICKS ([id number]) 1950 F Date Time Provider Department 01/20/18 5:45 PM JILLIAN PEREZ (JASMIN) [facility] During your visit today, we recorded the following information about you: Temperature Pulse Respiration Blood pressure 98 degrees 78/minute 16/minute 138/84 Weight 61.7 kg Jillian Perez CNP, ELIZABETH 01/20/2018 6:08 PM Signed What is GERD? Gastroesophageal reflux disease (GERD) is a more serious form of gastroesophageal reflux (ABHIJEET), which is common. ABHIJEET occurs when the lower esophageal sphincter (LES) opens spontaneously, for varying periods of time, or does not close properly and stomach contents rise up into the esophagus. ABHIJEET is also called acid reflux or acid regurgitation, because digestive juices?called acids?rise up with the food. The esophagus is the tube that carries food from the mouth to the stomach. The LES is a ring of muscle at the bottom of the esophagus that acts like a valve between the esophagus and stomach. When acid reflux occurs, food or fluid can be tasted in the back of the mouth. When refluxed stomach acid touches the lining of the esophagus it may cause a burning sensation in the chest or throat called heartburn or acid indigestion. Occasional ABHIJEET is common and does not necessarily mean one has GERD. Persistent reflux that occurs more than twice a week is considered GERD, and it can eventually lead to more serious health problems. People of all ages can have GERD. What are the symptoms of GERD? The main symptom of GERD in adults is frequent heartburn, also called acid indigestion?burning-type pain in the lower part of the mid- chest, behind the breast bone, and in the mid-abdomen. Most children under 12 years with GERD, and some adults, have GERD without heartburn. Instead, they may experience a dry cough, asthma symptoms, or trouble swallowing. What causes GERD? The reason some people develop GERD is still unclear. However, research shows that in people with GERD, the LES relaxes while the rest of the esophagus is working. Anatomical abnormalities such as a hiatal hernia may also contribute to GERD. A hiatal hernia occurs when the upper part of the stomach and the LES move above the diaphragm, the muscle wall that separates the stomach from the chest. Normally, the diaphragm helps the LES keep acid from rising up into the esophagus. When a hiatal hernia is present, acid reflux can occur more easily. A hiatal hernia can occur in people of any age and is most often a normal finding in otherwise healthy people over age 50. Most of the time, a hiatal hernia produces no symptoms. Other factors that may contribute to GERD include obesity smoking Common foods that can worsen reflux symptoms include citrus fruits chocolate drinks with caffeine or alcohol fatty and fried foods garlic and onions mint flavorings spicy foods tomato-based foods, like spaghetti sauce, salsa, chili, and pizza What is GERD in children? Distinguishing between normal, physiologic reflux and GERD in children is important. Most infants with ABHIJEET are happy and healthy even if they frequently spit up or vomit, and babies usually outgrow ABHIJEET by their first birthday. Reflux that continues past 1 year of age may be GERD. Studies show GERD is common and may be overlooked in infants and children. For example, GERD can present as repeated regurgitation, nausea, heartburn, coughing, laryngitis, or respiratory problems like wheezing, asthma, or pneumonia. Infants and young children may demonstrate irritability or arching of the back, often during or immediately after feedings. Infants with GERD may refuse to feed and experience poor growth. Talk with your child?s health care provider if reflux-related symptoms occur regularly and cause your child discomfort. Your health care provider may recommend simple strategies for avoiding reflux, such as burping the several times during feeding or keeping the infant in an upright position for 30 minutes after feeding. If your child is older, your health care provider may recommend that your child eat small, frequent meals and avoid the following foods: sodas that contain caffeine chocolate peppermint spicy foods acidic foods like oranges, tomatoes, and pizza fried and fatty foods Avoiding food 2 to 3 hours before bed may also help. Your health care provider may recommend raising the head of your child?s bed with wood blocks secured under the bedposts. Just using extra pillows will not help. If these changes do not work, your health care provider may prescribe medicine for your child. In rare cases, a child may need surgery. For information about ABHIJEET in infants, children, and adolescents, see the Gastroesophageal Reflux in Infants and Gastroesophageal Reflux in Children and Adolescents fact sheets from the National [place] of Diabetes and Digestive and Kidney Diseases (NIDDK). How is GERD treated? See your health care provider if you have had symptoms of GERD and have been using antacids or other rzfl-sov-wnhkvif reflux medications for more than 2 weeks. Your health care provider may refer you to a can operator, a doctor who treats diseases of the stomach and intestines. Depending on the severity of your GERD, treatment may involve one or more of the following lifestyle changes, medications, or surgery. Lifestyle Changes If you smoke, stop. Avoid foods and beverages that worsen symptoms. Lose weight if needed. Eat small, frequent meals. Wear loose-fitting clothes. Avoid lying down for 3 hours after a meal. Raise the head of your bed 6 to 8 inches by securing wood blocks under the bedposts. Just using extra pillows will not help. Medications Your health care provider may recommend hpaj-qfr-zahepvb antacids or medications that stop acid production or help the muscles that empty your stomach. You can buy many of these medications without a prescription. However, see your health care provider before starting or adding a medication. Antacids, such as Siomara-Leonidas, Maalox, Mylanta, Rolaids, and Riopan, are usually the first drugs recommended to relieve heartburn and other mild GERD symptoms. Many brands on the market use different combinations of three basic salts?magnesium, calcium, and aluminum?with hydroxide or bicarbonate ions to neutralize the acid in your stomach. Antacids, however, can have side effects. Magnesium salt can lead to diarrhea, and aluminum salt may cause constipation. Aluminum and magnesium salts are often combined in a single product to balance these effects. Calcium carbonate antacids, such as Tums, Titralac, and Siomara- 2, can also be a supplemental source of calcium. They can cause constipation as well. Foaming agents, such as Gaviscon, work by covering your stomach contents with foam to prevent reflux. H2 blockers, such as cimetidine (Tagamet HB), famotidine (Pepcid AC), nizatidine (Axid AR), and ranitidine (Zantac 75), decrease acid production. They are available in prescription strength and zgaq-ihd-zvavpdb strength. These drugs provide short-term relief and are effective for about half of those who have GERD symptoms. Proton pump inhibitors include omeprazole (Prilosec, Zegerid), lansoprazole (Prevacid), pantoprazole (Protonix), rabeprazole (Aciphex), and esomeprazole (Nexium), which are available by prescription. Prilosec is also available in futq-guh-vqjhoit strength. Proton pump inhibitors are more effective than H2 blockers and can relieve symptoms and heal the esophageal lining in almost everyone who has GERD. Prokinetics help strengthen the LES and make the stomach empty faster. This group includes bethanechol (Urecholine) and metoclopramide (Reglan). Metoclopramide also improves muscle action in the digestive tract. Prokinetics have frequent side effects that limit their usefulness?fatigue, sleepiness, depression, anxiety, and problems with physical movement. Because drugs work in different ways, combinations of medications may help control symptoms. People who get heartburn after eating may take both antacids and H2 blockers. The antacids work first to neutralize the acid in the stomach, and then the H2 blockers act on acid production. By the time the antacid stops working, the H2 berry will have stopped acid production. Your health care provider is the best source of information about how to use medications for GERD. What if GERD symptoms persist? If your symptoms do not improve with lifestyle changes or medications, you may need additional tests. Barium swallow radiograph uses x rays to help spot abnormalities such as a hiatal hernia and other structural or anatomical problems of the esophagus. With this test, you drink a solution and then x rays are taken. The test will not detect mild irritation, although strictures?narrowing of the esophagus?and ulcers can be observed. Upper endoscopy is more accurate than a barium swallow radiograph and may be performed in a hospital or a doctor?s office. The doctor may spray your throat to numb it and then, after lightly sedating you, will slide a thin, flexible plastic tube with a light and lens on the end called an endoscope down your throat. Acting as a tiny camera, the endoscope allows the doctor to see the surface of the esophagus and search for abnormalities. If you have had moderate to severe symptoms and this procedure reveals injury to the esophagus, usually no other tests are needed to confirm GERD. The doctor also may perform a biopsy. Tiny tweezers, called forceps, are passed through the endoscope and allow the doctor to remove small pieces of tissue from your esophagus. The tissue is then viewed with a microscope to look for damage caused by acid reflux and to rule out other problems if infection or abnormal growths are not found. pH monitoring examination involves the doctor either inserting a small tube into the esophagus or clipping a tiny device to the esophagus that will stay there for 24 to 48 hours. While you go about your normal activities, the device measures when and how much acid comes up into your esophagus. This test can be useful if combined with a carefully completed diary?recording when, what, and amounts the person eats?which allows the doctor to see correlations between symptoms and reflux episodes. The procedure is sometimes helpful in detecting whether respiratory symptoms, including wheezing and coughing, are triggered by reflux. A completely accurate diagnostic test for GERD does not exist, and tests have not consistently shown that acid exposure to the lower esophagus directly correlates with damage to the lining. Surgery Surgery is an option when medicine and lifestyle changes do not help to manage GERD symptoms. Surgery may also be a reasonable alternative to a lifetime of drugs and discomfort. Fundoplication is the standard surgical treatment for GERD. Usually a specific type of this procedure, called Tamie fundoplication, is performed. During the Tamie fundoplication, the upper part of the stomach is wrapped around the LES to strengthen the sphincter, prevent acid reflux, and repair a hiatal hernia. The Tamie fundoplication may be performed using a laparoscope, an instrument that is inserted through tiny incisions in the abdomen. The doctor then uses small instruments that hold a camera to look at the abdomen and pelvis. When performed by experienced surgeons, laparoscopic fundoplication is safe and effective in people of all ages, including infants. The procedure is reported to have the same results as the standard fundoplication, and people can leave the hospital in 1 to 3 days and return to work in 2 to 3 weeks. Endoscopic techniques used to treat chronic heartburn include the Bard EndoCinch system, NDO Plicator, and the Stretta system. These techniques require the use of an endoscope to perform the anti-reflux operation. The EndoCinch and NDO Plicator systems involve putting stitches in the LES to create pleats that help strengthen the muscle. The Stretta system uses electrodes to create tiny johnston on the LES. When the johnston heal, the scar tissue helps toughen the muscle. The fci effects of these three procedures are unknown. What are the long-term complications of GERD? Chronic GERD that is untreated can cause serious complications. Inflammation of the esophagus from refluxed stomach acid can damage the lining and cause bleeding or ulcers?also called esophagitis. Scars from tissue damage can lead to strictures?narrowing of the esophagus?that make swallowing difficult. Some people develop Jewell?s esophagus, in which cells in the esophageal lining take on an abnormal shape and color. Over time, the cells can lead to esophageal cancer, which is often fatal. Persons with GERD and its complications should be monitored closely by a physician. Studies have shown that GERD may worsen or contribute to asthma, chronic cough, and pulmonary fibrosis. For information about Jewell?s esophagus, see the Jewell?s Esophagus fact sheet from the NIDDK. Points to Remember Frequent heartburn, also called acid indigestion, is the most common symptom of GERD in adults. Anyone experiencing heartburn twice a week or more may have GERD. You can have GERD without having heartburn. Your symptoms could include a dry cough, asthma symptoms, or trouble swallowing. If you have been using antacids for more than 2 weeks, it is time to see your health care provider. Most doctors can treat GERD. Your health care provider may refer you to a can operator, a doctor who treats diseases of the stomach and intestines. Health care providers usually recommend lifestyle and dietary changes to relieve symptoms of GERD. Many people with GERD also need medication. Surgery may be considered as a treatment option. Most infants with ABHIJEET are healthy even though they may frequently spit up or vomit. Most infants outgrow ABHIJEET by their first birthday. Reflux that continues past 1 year of age may be GERD. The persistence of ABHIJEET along with other symptoms?arching and irritability in infants, or abdominal and chest pain in older children?is GERD. GERD is the outcome of frequent and persistent ABHIJEET in infants and children and may cause repeated vomiting, coughing, and respiratory problems. Hope Through Research The reasons certain people develop GERD and others do not remain unknown. Several factors may be involved, and research is under way to explore risk factors for developing GERD and the role of GERD in other conditions such as asthma and laryngitis. The U.S. Government does not endorse or favor any specific commercial product or company. Trade, proprietary, or company names appearing in this document are used only because they are considered necessary in the context of the information provided. If a product is not mentioned, the omission does not mean or imply that the product is unsatisfactory. For More Information [employer] [address] [place] [address] Phone: [phone] Internet: www.acg.gi.org [employer] [facility] [place] [address] Phone: [phone] Fax: [phone] Email: Internet: www.gastro.org [employer] [address] [place] [address] Phone: [phone] or [phone] Fax: [phone] Email: Internet: www.[email or web address].org [employer] Hepat[employer], [employer] [address] [place] [address] Phone: [phone] Fax: [phone] Email: Internet: www.naspghan.org Pediatric/Adolescent Gastroesophageal [employer]lux [employer] [address] [place] [address] Phone: [phone] Email: [email or web address] Internet: www.[email or web address].org The National Digestive Diseases Information Clearinghouse collects resource information about digestive diseases for the National [place] of Diabetes and Digestive and Kidney Diseases (NIDDK) Reference Collection. This database provides titles, abstracts, and availability information for health information and health education resources. The NIDDK Reference Collection is a service of the National Institutes of Health. You may view the results of the automatic search on heartburn, gastroesophageal reflux (ABHIJEET), and gastroesophageal reflux disease (GERD). If you wish to perform your own search of the database, you may access and search the NIDDK Reference Collection database online. National Digestive Diseases Information Clearinghouse [address] [place] [address] Phone: [phone] Fax: [phone] Email: Internet: www.digestive.niddk.nih.gov The National Digestive Diseases Information Clearinghouse (NDDIC) is a service of the National [place] of Diabetes and Digestive and Kidney Diseases (NIDDK). The NIDDK is part of the National Institutes of Health of the U.S. Department of Health and Human Services. Established in 1979, the Clearinghouse provides information about digestive diseases to people with digestive disorders and to their families, health career development manager, and the public. The NDDIC answers inquiries, develops and distributes publications, and works closely with professional and patient organizations and Government agencies to coordinate resources about digestive diseases. Publications produced by the [employer] are carefully reviewed by both NIDDK scientists and outside experts. This publication was originally reviewed by Jayme Ge M.D., [facility] [place], and Javi Parrish M.D., [employer]. This publication is not copyrighted. The [employer] encourages users of this publication to duplicate and distribute as many copies as desired. [facility] Publication No. [id number] March 2007 Jillian Perez, BINDING CUTTER SYNTHETIC CLOTH, [employer] 01/30/2018 4:00 PM Signed Subjective HPI Patient presents with: Nausea: upset stomach x 7 weeks Pt has hx of GERD, was taking Omeprazole, but out of medication for a while and restarted at end of October with mild relief. Review of Systems Constitutional: Negative for chills, fever and malaise/fatigue. Cardiovascular: Negative for chest pain and palpitations. Gastrointestinal: Positive for heartburn and nausea. Negative for abdominal pain, blood in stool, constipation, diarrhea, melena and vomiting. PAST MEDICAL HISTORY Diagnosis Date - Anxiety and depression 08/20/2017 - Controlled type 2 diabetes mellitus without complication, without long-term current use of insulin ([facility]) 05/08/2017 - Diabetic eye exam ([facility]) 07/07/2017 Last done: 06/26/2017 - DM (diabetes mellitus) ([facility]) - GERD without esophagitis 08/20/2017 - 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 - Hypothyroid - Hypothyroidism 05/08/2017 - Smoker 08/20/2017 Started at age 16 up to 1 PPD PAST SURGICAL HISTORY Procedure Laterality Date - CATARACT EXT; EYEONICS IOL SYS 11/24/2007 both - COLONOSCOPY 05/08/2008 repeat 10 yrs - CORRECT BUNION,SIMPLE 1997 left - HAMMERTOE REVISION, ONE TOE 11/24/1975 right - MENISCAL REPAIR SYS,CD,[id number] - PROSTHESIS, BREAST, IMP 11/24/1975 - TONSILLECTOMY HX 11/24/1954 ALLERGIES Review of patient's allergies indicates no known allergies. MEDICATIONS omeprazole (PRILOSEC) 20 mg capsule Take 2 capsules by mouth once daily. mupirocin (BACTROBAN) 2 % ointment Apply 1 application to affected area three times daily. Location: thumb SYNTHROID 200 mcg tablet Take one tab by mouth 5 days a week as instructed. Take on empty stomach. For Thyroid. Please give branded synthroid buPROPion XL (WELLBUTRIN XL) 300 mg 24 hr tablet Take 1 tablet by mouth once daily. valACYclovir (VALTREX) 500 mg tablet Take 1 tablet by mouth once daily. aspirin, enteric coated (ADULT LOW DOSE ASPIRIN) 81 mg EC tablet Take 1 tablet by mouth once daily. levothyroxine (SYNTHROID) 175 mcg tablet Take 1 tablet by mouth every Friday and Friday. levothyroxine (LEVOXYL) 200 mcg tablet Take 1 tablet by mouth five times a week. Take 5 days a week. Take on empty stomach. For thyroid metFORMIN (GLUCOPHAGE) 500 mg tablet Take 500 mg by mouth three times daily. ferrous sulfate (FEOSOL) 325 mg (65 mg iron) tablet Take 325 mg by mouth daily with breakfast. Cholecalciferol, Vitamin D3, (VITAMIN D) 1,000 unit cap Take 1,000 Units by mouth once daily. atorvastatin (LIPITOR) 10 mg tablet Take 1 tablet by mouth daily at bedtime. For cholesterol. FAMILY HISTORY Problem Relation Age of Onset - Cancer Mother Malignant neoplastic disease - Heart Father - Diabetes Father - Diabetes Sister - Diabetes Brother Social History Substance Use Topics - Smoking status: Current Every Day Smoker - Smokeless tobacco: Never Used - Alcohol use Yes Comment: rare Objective Physical Exam Constitutional: She is well-developed, well-nourished, and in no distress. HENT: Mouth/Throat: Oropharynx is clear and moist. Eyes: Conjunctivae are normal. Neck: Normal range of motion. Cardiovascular: Normal rate, regular rhythm and normal heart sounds. Pulmonary/Chest: Effort normal and breath sounds normal. Abdominal: Soft. Bowel sounds are normal. She exhibits no distension. There is no tenderness. Nursing note and vitals reviewed. ASSESSMENT/PLAN: 1. Nausea - ICD9: 787.02, ICD10: R11.0 (primary diagnosis) -denied need for Zofran -f/u with PCP 1-3 days 2. GERD without esophagitis - ICD9: 530.81, ICD10: K21.9 - Discussed lifestyle modifications including losing weight, limiting caffeine, no meals three hours before sleep and head of bed elevation - Continue treatment with Prilosec 40 mg QD - Follow up in 1-2 weeks Prescription instructions reviewed with patient as applicable. Patient advised if symptoms do not improve or if symptoms worsen sooner, to contact their primary care physician. Potential red flag symptoms discussed with the patient. Reviewed appropriate action plan to take if red flag symptoms occur. Patient agreeable to treatment plan. Jillian Perez CNP Referring Provider: SELF [[id number]] Allergies As of Date: 01/20/2018 (No Known Allergies) Date Reviewed: 01/20/2018 Reviewed by: Ángela Santacruz Ma - Fully Assessed Reason for Visit: Nausea [70] Cmt: upset stomach x 7 weeks, some diarrhea Reason For Visit History Recorded Primary Visit Diagnosis:Nausea [R11.0] Other Visit Diagnosis:GERD without esophagitis [K21.9] Order(s):omeprazole (PRILOSEC) 20 mg capsuleTake 2 capsules by mouth once daily.Disp: 60 capsuleRfl: 0 Prescriptions as of 01/20/2018 Sig: OMEPRAZOLE 20 MG CAPSULE,YARIEL* Take 2 capsules by mouth once* MUPIROCIN 2 % TOPICAL OINTMENT Apply 1 application to affect* SYNTHROID 200 MCG TABLET Take one tab by mouth 5 days * BUPROPION XL 300 MG 24 HR TAB Take 1 tablet by mouth once d* VALACYCLOVIR 500 MG TABLET Take 1 tablet by mouth once d* ASPIRIN 81 MG TABLET,DELAYED * Take 1 tablet by mouth once d* LEVOTHYROXINE 175 MCG TABLET Take 1 tablet by mouth every * LEVOTHYROXINE 200 MCG TABLET Take 1 tablet by mouth five t* METFORMIN 500 MG TABLET Take 500 mg by mouth three ti* FERROUS SULFATE 325 MG (65 MG* Take 325 mg by mouth daily wi* CHOLECALCIFEROL (VITAMIN D3) * Take 1,000 Units by mouth onc* ATORVASTATIN 10 MG TABLET Take 1 tablet by mouth daily * Medication notes this encounter ATORVASTATIN 10 MG TABLET >> Ángela Santacruz Ma 01/20/2018 5:52 PM >> ÁNGELA SANTACRUZ MA Jan 20, 2018 5:52 PM not taking Problem List As Of Date 01/20/2018 Noted Resolved Controlled type 2 diabetes mellitus without com*INVALID FOR* Priority: A More... Acquired hypothyroidism [E03.9] INVALID FOR* Priority: A More... Diabetic eye exam (HCC) [E11.9, Z01.00] INVALID FOR* Priority: A More... GERD without esophagitis [K21.9] INVALID FOR* Priority: A Herpes simplex infection of genitourinary syste*INVALID FOR* Priority: C Anxiety and depression [F41.8] INVALID FOR* Priority: A Smoker [F17.200] INVALID FOR* Priority: C More... Iron deficiency anemia [D50.9] INVALID FOR* Priority: A Encounter for gynecological examination without*INVALID FOR* Priority: E More... Type 2 diabetes mellitus with diabetic neuropat*INVALID FOR* Priority: A History of TIA (transient ischemic attack) [Z86*INVALID FOR* Priority: A More... Vitamin D deficiency [E55.9] INVALID FOR* Priority: B Chronic seasonal allergic rhinitis [J30.2] INVALID FOR* Priority: B Osteopenia, senile [M85.80] INVALID FOR* Priority: M More... Carotid stenosis, asymptomatic, bilateral [I65.*INVALID FOR* Priority: A More... Other instructions from your clinician: What is GERD? Gastroesophageal reflux disease (GERD) is a more serious form of gastroesophageal reflux (ABHIJEET), which is common. ABHIJEET occurs when the lower esophageal sphincter (LES) opens spontaneously, for varying periods of time, or does not close properly and stomach contents rise up into the esophagus. ABHIJEET is also called acid reflux or acid regurgitation, because digestive juices?called acids?rise up with the food. The esophagus is the tube that carries food from the mouth to the stomach. The LES is a ring of muscle at the bottom of the esophagus that acts like a valve between the esophagus and stomach. When acid reflux occurs, food or fluid can be tasted in the back of the mouth. When refluxed stomach acid touches the lining of the esophagus it may cause a burning sensation in the chest or throat called heartburn or acid indigestion. Occasional ABHIJEET is common and does not necessarily mean one has GERD. Persistent reflux that occurs more than twice a week is considered GERD, and it can eventually lead to more serious health problems. People of all ages can have GERD. What are the symptoms of GERD? The main symptom of GERD in adults is frequent heartburn, also called acid indigestion?burning-type pain in the lower part of the mid-chest, behind the breast bone, and in the mid-abdomen. Most children under 12 years with GERD, and some adults, have GERD without heartburn. Instead, they may experience a dry cough, asthma symptoms, or trouble swallowing. What causes GERD? The reason some people develop GERD is still unclear. However, research shows that in people with GERD, the LES relaxes while the rest of the esophagus is working. Anatomical abnormalities such as a hiatal hernia may also contribute to GERD. A hiatal hernia occurs when the upper part of the stomach and the LES move above the diaphragm, the muscle wall that separates the stomach from the chest. Normally, the diaphragm helps the LES keep acid from rising up into the esophagus. When a hiatal hernia is present, acid reflux can occur more easily. A hiatal hernia can occur in people of any age and is most often a normal finding in otherwise healthy people over age 50. Most of the time, a hiatal hernia produces no symptoms. Other factors that may contribute to GERD include obesity smoking Common foods that can worsen reflux symptoms include citrus fruits chocolate drinks with caffeine or alcohol fatty and fried foods garlic and onions mint flavorings spicy foods tomato-based foods, like spaghetti sauce, salsa, chili, and pizza What is GERD in children? Distinguishing between normal, physiologic reflux and GERD in children is important. Most infants with ABHIJEET are happy and healthy even if they frequently spit up or vomit, and babies usually outgrow ABHIJEET by their first birthday. Reflux that continues past 1 year of age may be GERD. Studies show GERD is common and may be overlooked in infants and children. For example, GERD can present as repeated regurgitation, nausea, heartburn, coughing, laryngitis, or respiratory problems like wheezing, asthma, or pneumonia. Infants and young children may demonstrate irritability or arching of the back, often during or immediately after feedings. Infants with GERD may refuse to feed and experience poor growth. Talk with your child?s health care provider if reflux- related symptoms occur regularly and cause your child discomfort. Your health care provider may recommend simple strategies for avoiding reflux, such as burping the infant several times during feeding or keeping the infant in an upright position for 30 minutes after feeding. If your child is older, your health care provider may recommend that your child eat small, frequent meals and avoid the following foods: sodas that contain caffeine chocolate peppermint spicy foods acidic foods like oranges, tomatoes, and pizza fried and fatty foods Avoiding food 2 to 3 hours before bed may also help. Your health care provider may recommend raising the head of your child?s bed with wood blocks secured under the bedposts. Just using extra pillows will not help. If these changes do not work, your health care provider may prescribe medicine for your child. In rare cases, a child may need surgery. For information about ABHIJEET in infants, children, and adolescents, see the Gastroesophageal Reflux in Infants and Gastroesophageal Reflux in Children and Adolescents fact sheets from the National [place] of Diabetes and Digestive and Kidney Diseases (NIDDK). How is GERD treated? See your health care provider if you have had symptoms of GERD and have been using antacids or other lgdk-qgw-wnrdkfk reflux medications for more than 2 weeks. Your health care provider may refer you to a can operator, a doctor who treats diseases of the stomach and intestines. Depending on the severity of your GERD, treatment may involve one or more of the following lifestyle changes, medications, or surgery. Lifestyle Changes If you smoke, stop. Avoid foods and beverages that worsen symptoms. Lose weight if needed. Eat small, frequent meals. Wear loose-fitting clothes. Avoid lying down for 3 hours after a meal. Raise the head of your bed 6 to 8 inches by securing wood blocks under the bedposts. Just using extra pillows will not help. Medications Your health care provider may recommend mkho-hds-vtqpxjw antacids or medications that stop acid production or help the muscles that empty your stomach. You can buy many of these medications without a prescription. However, see your health care provider before starting or adding a medication. Antacids, such as Siomara-Leonidas, Maalox, Mylanta, Rolaids, and Riopan, are usually the first drugs recommended to relieve heartburn and other mild GERD symptoms. Many brands on the market use different combinations of three basic salts?magnesium, calcium, and aluminum?with hydroxide or bicarbonate ions to neutralize the acid in your stomach. Antacids, however, can have side effects. Magnesium salt can lead to diarrhea, and aluminum salt may cause constipation. Aluminum and magnesium salts are often combined in a single product to balance these effects. Calcium carbonate antacids, such as Tums, Titralac, and Siomara-2, can also be a supplemental source of calcium. They can cause constipation as well. Foaming agents, such as Gaviscon, work by covering your stomach contents with foam to prevent reflux. H2 blockers, such as cimetidine (Tagamet HB), famotidine (Pepcid AC), nizatidine (Axid AR), and ranitidine (Zantac 75), decrease acid production. They are available in prescription strength and igqd-syc-suqtras strength. These drugs provide short-term relief and are effective for about half of those who have GERD symptoms. Proton pump inhibitors include omeprazole (Prilosec, Zegerid), lansoprazole (Prevacid), pantoprazole (Protonix), rabeprazole (Aciphex), and esomeprazole (Nexium), which are available by prescription. Prilosec is also available in rhyl-guz-bdqbgkg strength. Proton pump inhibitors are more effective than H2 blockers and can relieve symptoms and heal the esophageal lining in almost everyone who has GERD. Prokinetics help strengthen the LES and make the stomach empty faster. This group includes bethanechol (Urecholine) and metoclopramide (Reglan). Metoclopramide also improves muscle action in the digestive tract. Prokinetics have frequent side effects that limit their usefulness?fatigue, sleepiness, depression, anxiety, and problems with physical movement. Because drugs work in different ways, combinations of medications may help control symptoms. People who get heartburn after eating may take both antacids and H2 blockers. The antacids work first to neutralize the acid in the stomach, and then the H2 blockers act on acid production. By the time the antacid stops working, the H2 berry will have stopped acid production. Your health care provider is the best source of information about how to use medications for GERD. What if GERD symptoms persist? If your symptoms do not improve with lifestyle changes or medications, you may need additional tests. Barium swallow radiograph uses x rays to help spot abnormalities such as a hiatal hernia and other structural or anatomical problems of the esophagus. With this test, you drink a solution and then x rays are taken. The test will not detect mild irritation, although strictures?narrowing of the esophagus?and ulcers can be observed. Upper endoscopy is more accurate than a barium swallow radiograph and may be performed in a hospital or a doctor?s office. The doctor may spray your throat to numb it and then, after lightly sedating you, will slide a thin, flexible plastic tube with a light and lens on the end called an endoscope down your throat. Acting as a tiny camera, the endoscope allows the doctor to see the surface of the esophagus and search for abnormalities. If you have had moderate to severe symptoms and this procedure reveals injury to the esophagus, usually no other tests are needed to confirm GERD. The doctor also may perform a biopsy. Tiny tweezers, called forceps, are passed through the endoscope and allow the doctor to remove small pieces of tissue from your esophagus. The tissue is then viewed with a microscope to look for damage caused by acid reflux and to rule out other problems if infection or abnormal growths are not found. pH monitoring examination involves the doctor either inserting a small tube into the esophagus or clipping a tiny device to the esophagus that will stay there for 24 to 48 hours. While you go about your normal activities, the device measures when and how much acid comes up into your esophagus. This test can be useful if combined with a carefully completed diary?recording when, what, and amounts the person eats?which allows the doctor to see correlations between symptoms and reflux episodes. The procedure is sometimes helpful in detecting whether respiratory symptoms, including wheezing and coughing, are triggered by reflux. A completely accurate diagnostic test for GERD does not exist, and tests have not consistently shown that acid exposure to the lower esophagus directly correlates with damage to the lining. Surgery Surgery is an option when medicine and lifestyle changes do not help to manage GERD symptoms. Surgery may also be a reasonable alternative to a lifetime of drugs and discomfort. Fundoplication is the standard surgical treatment for GERD. Usually a specific type of this procedure, called Tamie fundoplication, is performed. During the Tamie fundoplication, the upper part of the stomach is wrapped around the LES to strengthen the sphincter, prevent acid reflux, and repair a hiatal hernia. The Tamie fundoplication may be performed using a laparoscope, an instrument that is inserted through tiny incisions in the abdomen. The doctor then uses small instruments that hold a camera to look at the abdomen and pelvis. When performed by experienced surgeons, laparoscopic fundoplication is safe and effective in people of all ages, including infants. The procedure is reported to have the same results as the standard fundoplication, and people can leave the hospital in 1 to 3 days and return to work in 2 to 3 weeks. Endoscopic techniques used to treat chronic heartburn include the Bard EndoCinch system, NDO Plicator, and the Stretta system. These techniques require the use of an endoscope to perform the anti-reflux operation. The EndoCinch and NDO Plicator systems involve putting stitches in the LES to create pleats that help strengthen the muscle. The Stretta system uses electrodes to create tiny johnston on the LES. When the johnston heal, the scar tissue helps toughen the muscle. The fci effects of these three procedures are unknown. What are the long-term complications of GERD? Chronic GERD that is untreated can cause serious complications. Inflammation of the esophagus from refluxed stomach acid can damage the lining and cause bleeding or ulcers?also called esophagitis. Scars from tissue damage can lead to strictures?narrowing of the esophagus?that make swallowing difficult. Some people develop Jewell?s esophagus, in which cells in the esophageal lining take on an abnormal shape and color. Over time, the cells can lead to esophageal cancer, which is often fatal. Persons with GERD and its complications should be monitored closely by a physician. Studies have shown that GERD may worsen or contribute to asthma, chronic cough, and pulmonary fibrosis. For information about Jewell?s esophagus, see the Jewell?s Esophagus fact sheet from the NIDDK. Points to Remember Frequent heartburn, also called acid indigestion, is the most common symptom of GERD in adults. Anyone experiencing heartburn twice a week or more may have GERD. You can have GERD without having heartburn. Your symptoms could include a dry cough, asthma symptoms, or trouble swallowing. If you have been using antacids for more than 2 weeks, it is time to see your health care provider. Most doctors can treat GERD. Your health care provider may refer you to a can operator, a doctor who treats diseases of the stomach and intestines. Health care providers usually recommend lifestyle and dietary changes to relieve symptoms of GERD. Many people with GERD also need medication. Surgery may be considered as a treatment option. Most infants with ABHIJEET are healthy even though they may frequently spit up or vomit. Most infants outgrow ABHIJEET by their first birthday. Reflux that continues past 1 year of age may be GERD. The persistence of ABHIJEET along with other symptoms?arching and irritability in infants, or abdominal and chest pain in older children?is GERD. GERD is the outcome of frequent and persistent ABHIJEET in infants and children and may cause repeated vomiting, coughing, and respiratory problems. Hope Through Research The reasons certain people develop GERD and others do not remain unknown. Several factors may be involved, and research is under way to explore risk factors for developing GERD and the role of GERD in other conditions such as asthma and laryngitis. The U.S. Government does not endorse or favor any specific commercial product or company. Trade, proprietary, or company names appearing in this document are used only because they are considered necessary in the context of the information provided. If a product is not mentioned, the omission does not mean or imply that the product is unsatisfactory. For More Information [employer] [address] [place] [address] Phone: [phone] Internet: www.acg.gi.org [employer] National Office [facility] [place], [place] Phone: [phone] Fax: [phone] Email: Internet: www.gastro.org [employer]intestinal [employer] [address] [place] [address] Phone: [phone] or [phone] Fax: [phone] Email: Internet: www.aboutgerd.org [employer] [employer] Hepat[employer], [employer] [address] [place] [address] Phone: [phone] Fax: [phone] Email: Internet: www.naspghan.org Pediatric/Adolescent Gastroesophageal Reflux Association[employer] [address] [place] [address] Phone: [phone] Email: gergroup@Shotfarm.EyeVerify Internet: www.reflux.org The National Digestive Diseases Information Clearinghouse collects resource information about digestive diseases for the National [place] of Diabetes and Digestive and Kidney Diseases (NIDDK) Reference Collection. This database provides titles, abstracts, and availability information for health information and health education resources. The NIDDK Reference Collection is a service of the National Institutes of Health. You may view the results of the automatic search on heartburn, gastroesophageal reflux (ABHIJEET), and gastroesophageal reflux disease (GERD). If you wish to perform your own search of the database, you may access and search the NIDDK Reference Collection database online. National Digestive Diseases Information Clearinghouse [address] [place] [address] Phone: [phone] Email: Internet: www.digestive.niddk.nih.gov The National Digestive Diseases Information Clearinghouse (NDDIC) is a service of the National [place] of Diabetes and Digestive and Kidney Diseases (NIDDK). The NIDDK is part of the National Institutes of Health of the U.S. Department of Health and Human Services. Established in 1979, the Clearinghouse provides information about digestive diseases to people with digestive disorders and to their families, health career development manager, and the public. The NDDIC answers inquiries, develops and distributes publications, and works closely with professional and patient organizations and Government agencies to coordinate resources about digestive diseases. Publications produced by the Clearinghouse are carefully reviewed by both NIDDK scientists and outside experts. This publication was originally reviewed by Jayme Ge M.D., [facility] [place], and Javi Parrish M.D., [facility] [employer] [facility]. This publication is not copyrighted. The Clearinghouse encourages users of this publication to duplicate and distribute as many copies as desired. [facility] Publication No. [id number] March 2007 Prescriptions ordered this encounter Disp Refills Start End OMEPRAZOLE 20 MG CAPSULE,DELAYED REL* 60 c* 0 01/20/2018 02/19/2018 Class: Print RX Route: ORAL Sig: Take 2 capsules by mouth once daily. Medications Discontinued During This Encounter omeprazole (PRILOSEC) 20 mg capsule 90 c* 1 11/19/2017 01/20/2018 Route: ORAL Sig: Take 1 capsule by mouth once daily. Disc: Reason for discontinue is not on file. Disposition: Return if symptoms worsen or fail to improve. Follow-up and Disposition History Recorded Encounter Status:Closed by JILLIAN PEREZ on 01/30/18 ALLERGIES ALLERGIES DATE TYPE / CODE NAME / CODE REACTION SEVERITY SOURCE 11/23/2018 Drug No Known Unknown [facility] Allergy/416 Allergies/Z72579 [facility] 518504(SNOM 0388(RXNORM) Repository ED CT) 04/27/2018 Environ/420 SEASONAL OTHER: SEE C [facility] 093418(SNOM ALLERGIES [facility] [place] ED CT) Repository Drug NO KNOWN [facility] Class/55293 ALLERGIES [facility] [place] 1003(SNOMED Repository CT) ENCOUNTERS ENCOUNTERS ADMIT/DISCHARGE ACCOUNT ADMITTING ENCOUNTER LOCATION SOURCE NUMBER CLASS 12/09/2018 [id number] Ambulatory [facility] ing:US Repository 11/30/2018 [id number] Ambulatory [facility] ing:LAB.FUTUR Repository E 11/23/2018 [id number] Ambulatory [facility] ing:LAB Repository 11/23/2018/11/23/20 [id number] Ambulatory B[facility]Building:B [address] Repository 10/01/2018 [id number] Ambulatory [facility] ing:BFHLAB Repository 06/25/2018/06/25/20 [id number] Ambulatory [address] Repository 06/25/2018/06/25/20 [id number] Ambulatory [address] Repository 04/27/2018/04/28/20 [id number] Ambulatory [address] [facility] [place] Repository 04/15/2018/04/16/20 [id number] Ambulatory [address] [place] Repository 03/31/2018/03/31/20 [id number] Ambulatory [address] [facility] [place] Repository 03/31/2018/04/01/20 [id number] Ambulatory [address] [place] Repository 03/17/2018/03/17/20 [id number] Emergency [address] ing:ED Repository 03/17/2018/03/18/20 [id number] Ambulatory [address] [place] Repository 03/04/2018/03/05/20 [id number] Ambulatory [place] [facility] [place] Repository 02/18/2018/02/20/20 [id number] Ambulatory [address] [place] Repository 02/13/2018/02/14/20 [id number] Ambulatory [address] [place] Repository 02/09/2018/02/11/20 [id number] Ambulatory [address] [place] Repository 01/20/2018/02/03/20 [id number] Ambulatory [address] [place] Rep[facility] PAYERS PAYERS ENCOUNTER GUARANTOR PAYER SUBSCRIBER SOURCE 12/09/2018 SALONI L Primary SALONI L [place] [id number] Insurance:HUMANA THARPDOB: [place] PPOPolicy [id number] [place] [address]Adi: Number: Repository [id number] (HP) Date:[id number] [address]DE: 12/09/2018 Secondary NOT GIVENUNK [place] Insurance:SELF PAY [facility] Number: Effective Repository Date:2018-11-26 11/30/2018 SALONI L Primary SALONI L [place] [id number] [place] Insurance:HUMANA THARPDOB: [place] [address], [place] PPOPolicy [id number] [place] [id number]: Number: Repository [id number] (HP) Date:[id number] [address]AV: 11/30/2018 Secondary NOT GIVENUNK [place] Insurance:SELF PAY [facility] Number: Effective Repository Date:2018-10-02 11/23/2018 SALONI L Primary SALONI L [place] [id number] [place] Insurance:HUMANA THARPDOB: [place] [address], [place] PPOPolicy [id number] [facility] [place] [address]Hwc: Number: Repository [id number] (HP) Date:[id number] [address] [address]MS: 11/23/2018 Secondary NOT GIVENUNK [place] Insurance:SELF PAY [facility] Number: Effective Repository Date:2018-11-23 11/23/2018 SALONI L Primary SALONI L [place] [id number] [place] Insurance:HUMANA THARPDOB: [place] [address], MED[place]ARE PPOPolicy [id number] [facility] [place] [id number]: Number: Repository [id number] (HP) Date:[id number] [address] [place] [phone]: 11/23/2018 Secondary NOT GIVENUNK Ayanna Insurance:SELF PAY [facility] Number: Effective Repository Date:2018-11-20 10/01/2018 SALONI L Primary SALONI L [place] [id number] [place] Insurance:HUMANA THARPDOB: [place] [address], MED[place]ARE PPOPolicy [id number] [facility] [place] [id number]: Number: Repository [id number] (HP) Date:[id number] [address] [place] [phone]: 10/01/2018 Secondary NOT GIVENUNK [place] Insurance:SELF PAY [facility] Number: Effective Repository Date:2018-10-01 03/17/2018 SALONI L Primary SALONI L [place] [id number] [place] Insurance:HUMANA THARPDOB: [place] [address], MED[place]ARE PPOPolicy [id number] [place] [id number]: Number: Repository [id number] (HP) Date:[id number] [address] [place] [id number]: 03/17/2018 Secondary NOT GIVENUNK [place] Insurance:SELF PAY [facility] Number: Effective Repository Date:2018-03-17
== END ==
PROVIDERS: Family Provider Family Medicine; PCP Family Medicine; Referring Provider Nurse Practitioner; Visit Provider Nurse Practitioner
DX: E04.0 Nontoxic diffuse goiter (principal)
CPT/HCPCS: 76536

== ENCOUNTER 2019-02-12 23:00 | Emergency (ER) | payer MEDICARE, SELFPAY ==
[2018-11-23 09:58] VITALS: BMI 20.7
[2019-02-12 23:01] VITALS: BP 177/110; PULSE 67; RESP 18; TEMP 36.7; O2SAT 98; BMI 21.1
--- NOTE | 2019-02-13 00:16 | ED.VISSUMM ---
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 Patient states that she was in a dark room and reached for a large bottle that she had tea in and ported into a glass. Patient took a sip and swallowed and immediately realized it was not T and was able to spit some of it back out. Patient is complaining of burning to her throat. Patient drank several glasses of water as the bottle stated to do if ingested. Patient has not vomited. Patient has history of diabetes, hypertension, TIA, and hypothyroidism.] Physical Examination: [HEENT-PERRLA, EOMI. Cranial nerves II through XII grossly intact. TMs clear. Mucous membranes moist. No adenopathy. Cardiovascular-regular rate and rhythm without murmur or ectopy Lungs-clear to auscultation, chest wall stable without crepitus or subcu emphysema Abdomen-normoactive bowel sounds, soft, nontender, no rebound or rigidity, no peritoneal signs. Extremities-intact ?4, normal range of motion, normal pulses, atraumatic] Test Results: [CBC with differential and chemistries ordered.] Emergency Department Course and Treatment: [Case was discussed with poison control. Given that patient is symptomatic and having burning to her throat was recommended that she have GI consultation. There is no GI availability at [facility] therefore case was discussed with [facility] transfer line. I was told there were no ICU beds available at [facility] and patient will be placed on a wait list. I attempted to contact [facility] and [facility] both of which were full and could not take the patient. I then discussed case with [facility] transfer line and patient was accepted under the care of in the ICU.] Treatment Plan: [Patient will be transferred to [facility]] Disposition: [Transfer] Impression: [Accidental ingestion of a alkaline substance] This note was generated with [employer] dictation software. It may contain incorrect words, spelling, and punctuation that were not noted in review of the chart prior to signing ED Disposition - Plan for ED Patient: Referrals: Praveen Lutz DO [Primary Care Provider] -
[2019-02-13] MEDS: 0.9% Normal Saline 1,000 ML 1000 ML IV (00:24)
[2019-02-13 00:39] LABS: Absolute Lymphocyte Count 1.71 X10^3/ul (0.83-4.51); Absolute Neutrophil Count 5.3 X10^3/uL (2.0-7.7); Basophil# 0.03 X10^3/uL; Basophil% 0.4 % (0-1); Eosinophil# 0.56 X10^3/uL; Eosinophils% 6.7 % (0-5); Hematocrit 36.1 % (37-47); Hemoglobin 11.3 g/dl (12.0-15.0); Lymphocyte # 1.71 X10^3/ul (4.0); Lymphocyte % 20.6 % (19-41); Mean Corp Hgb Conc 31.3 g/gl (32-36); Mean Corpuscular Volume 92.8 fL (81-99); Mean Platelet Vol. 8.9 fl (6.2-12.0); Monocyte# 0.73 X10^3/uL; Monocyte% 8.8 % (0-10); Neutrophil # 5.26 X10^3/uL (2.7-7.7); Neutrophil % 63.3 % (47-70); Platelet Count 280 K/mm3 (150-450); RBC Distribution Width CV 15.4 % (11.6-14.6); RBC Distribution Width SD 51.4 fl (35.1-43.9); Red Blood Count 3.89 M/mm3 (4.2-5.4); White Blood Count 8.3 K/mm3 (4.4-11.0)
[2019-02-13 00:40] LABS: Anion Gap 4 (5-15); BUN 26 mg/dL (7-18); BUN/Creat Ratio 28.4 RATIO (10-20); Calcium,Total 8.6 mg/dL (8.5-10.1); Chloride 108 mmol/L (98-107); Creatinine, Serum 0.91 mg/dL (0.55-1.02); EST Glomerular Filtration Rate 65 mL/min (>60); Est Glom Filt Rate - Afr Amer 78 mL/min (>60); Estimated Creatinine Clearance 56.28 ml/min; Glucose 151 mg/dL (74-106); POSITIVE COUNT NO; POSITIVE DIFFERENTIAL NO; POSITIVE MORPHOLOGY NO; Sodium Level 139 mmol/L (136-145)
[2019-02-13] MEDS: Ondansetron 4 MG/2 ML Vial IV (00:50)
[2019-02-13 01:01] VITALS: BP 147/86; PULSE 88; RESP 16; O2SAT 97
[2019-02-13] MEDS: 0.9% Normal Saline 1,000 ML 150 ML IV (01:02)
[2019-02-13 01:58] VITALS: BP 147/86; PULSE 88; RESP 16; TEMP 36.7; O2SAT 97
== END 2019-02-13 02:15 | disposition short-term general hospital (02) ==
PROVIDERS: Emergency Provider Emergency Medicine; Family Provider Family Medicine; PCP Family Medicine
DX: T65.891A Toxic effect of other specified substances, accidental (unintentional), initial encounter (principal); E11.9 Type 2 diabetes mellitus without complications; I10 Essential (primary) hypertension; E03.9 Hypothyroidism, unspecified; Z86.73 Personal history of transient ischemic attack (TIA), and cerebral infarction without residual deficits; Z79.899 Other long term (current) drug therapy; Y92.009 Unspecified place in unspecified non-institutional (private) residence as the place of occurrence of the external cause
CPT/HCPCS: 80048; 85025; 96361; 96374; 99284; J7030; A4216; J2405

== ENCOUNTER 2019-03-15 11:00 | Outpatient (RCR) | payer MEDICARE, SELFPAY ==
[2018-11-23 09:58] VITALS: BMI 20.7
--- NOTE | 2019-02-15 15:53 | HP.PTEVAL ---
Patient's Visit Information IMAN HICKS is a 69 year old F referred to Physical Therapy by Praveen Lutz DO with a diagnosis of Right Post Tib Tendonitis. Date of Evaluation: 02/15/19 Physical Therapist: Monique Redd DPT - Visit Plan Frequency: 2x /Week Duration: 4 Weeks Plan: Ultrasound as modality- Strength/stabilization of the ankle. 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 She was hurting for about a month then finally went to the MD. They took x-rays and diagnosed her with a tendon issue. Pain comes and goes. Describes it as burning. Pain is located along the post tib tunnel along the medial malleolus. Worst: 8/10, Agg: prolonged standing Eases: rest, heat, pain medication. Best: 0/10. Is not working that job anymore so that helps but summer is coming and wants to be able to be outside. They suggested an [employer] brace that she will get at [employer]. Usually wears Sketchers without orthotics. Does radiate up the leg just to the knee. Describes the pain as dull and achy with some burning. Does have back problems and sees a chiropractor. Does have a disc that bothers her so she can't bend forwards so she gets on her knees in her gardens. Had several falls last year but none this year- most of them are from tripping on things. Sleep: rarely PMHx: Surgeries on that foot include- Bunionectomy, and the long pin PMHx/Meds: scanned in chart. - Objective Posture: FH, RS- can correct with VC's but does not maintain. Gait: no deviation noted. Observation: signficant pes planus. HR/TR: able without pain. SLS: 3 seconds then LOB. Palpation: tender along posterior tib as it comes behind the medial malleolus and along the medial arch. ROM: DF: 10 degrees, PF: 60 degrees, Inv: 30 degrees, Ever: 20 degrees. Strength: Ankle: 4+/5 throughout, Knee: 4+/5, Hip: 4/5 core: poor. Flex: HS: moderate. Gastroc: moderate, Soleus: moderate - Goals Goal 1:: Patient will be I with HEP and progression Goal Time Frame: 4-6 Weeks Goal 2:: Patient will SLS for 15 sec without LOB Goal Time Frame: 4-6 Weeks Goal 3:: Patient will report 0/10 pain for 1 week - Rehabilitation Potential Physical Therapy Diagnosis: Patient presents with hypomobility- she has decreased strength and muscular endurance leading to poor balance and increased pain with ADL's. Rehabilitation Potential: Fair - Anticipated Interventions Patient/Client Instruction: Educate patient on: Benefits of Fitness Program Therapeutic Exercise to Include: Strength training, Endurance training, Balance training, Body mechanics, Postural training, Flexibilty training, Dynamic Lumbar Stabilization For the Purpose of:: To improve muscle performance and motor function TENS: Yes Cryotherapy (ice pack, ice massage): Yes Thermo therapy (hot pack): Yes Ultrasound (thermal/non thermal): Yes Thank you for the opportunity to evaluate your patient. For Medicare and Medicare HMO plans, please review the plan of care and approve it. It will need to be FAXED BACK to us at [phone] for Medicare purposes. For Medicare only, by signing this I certify the plan of care. Please let me know if there are questions or concerns regarding this plan of care. Physician Signature: Date:
--- NOTE | 2019-02-15 15:56 | HP.PTEVAL_ITS ---
Patient's Visit Information IMAN HICKS is a 69 year old F referred to Physical Therapy by Praveen Lutz DO with a diagnosis of Right Post Tib Tendonitis. Date of Evaluation: 02/15/19 Physical Therapist: Monique Redd DPT - Visit Plan Frequency: 2x /Week Duration: 4 Weeks Plan: Ultrasound as modality- Strength/stabilization of the ankle. 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 She was hurting for about a month then finally went to the MD. They took x-rays and diagnosed her with a tendon issue. Pain comes and goes. Describes it as burning. Pain is located along the post tib tunnel along the medial malleolus. Worst: 8/10, Agg: prolonged standing Eases: rest, heat, pain medication. Best: 0/10. Is not working that job anymore so that helps but summer is coming and wants to be able to be outside. They suggested an [employer] brace that she will get at [employer]. Usually wears Sketchers without orthotics. Does radiate up the leg just to the knee. Describes the pain as dull and achy with some burning. Does have back problems and sees a chirop ractor. Does have a disc that bothers her so she can't bend forwards so she gets on her knees in her gardens. Had several falls last year but none this year- most of them are from tripping on things. Sleep: rarely PMHx: Surgeries on that foot include- Bunionectomy, and the long pin PMHx/Meds: scanned in chart. - Objective Posture: FH, RS- can correct with VC's but does not maintain. Gait: no deviation noted. Observation: signficant pes planus. HR/TR: able without pain. SLS: 3 seconds then LOB. Palpation: tender along posterior tib as it comes behind the medial malleolus and along the medial arch. ROM: DF: 10 degrees, PF: 60 degrees, Inv: 30 degrees, Ever: 20 degrees. Strength: Ankle: 4+/5 throughout, Knee: 4+/5, Hip: 4/5 core: poor. Flex: HS: moderate. Gastroc: moderate, Soleus: moderate - Goals Goal 1:: Patient will be I with HEP and progression Goal Time Frame: 4-6 Weeks Goal 2:: Patient will SLS for 15 sec without LOB Goal Time Frame: 4-6 Weeks Goal 3:: Patient will report 0/10 pain for 1 week - Rehabilitation Potential Physical Therapy Diagnosis: Patient presents with hypomobility- she has decreased strength and muscular endurance leading to poor balance and increased pain with ADL's. Rehabilitation Potential: Fair - Anticipated Interventions Patient/Client Instruction: Educate patient on: Benefits of Fitness Program Therapeutic Exercise to Include: Strength training, Endurance training, Balance training, Body mechanics, Postural training, Flexibilty training, Dynamic Lumbar Stabilization For the Purpose of:: To improve muscle performance and motor function TENS: Yes Cryotherapy (ice pack, ice massage): Yes Thermo therapy (hot pack): Yes Ultrasound (thermal/non thermal): Yes Thank you for the opportunity to evaluate your patient. For Medicare and Medicare HMO plans, please review the plan of care and approve it. It will need to be FAXED BACK to us at [phone] for Medicare purposes. For Medicare only, by signing this I certify the plan of care. Please let me know if there are questions or concerns regarding this plan of care. Physician Signature: Date:
--- NOTE | 2019-03-15 11:42 | HP.PTDCSUM_ITS ---
HP - PT D/C Summary It has been my pleasure to treat IMAN HICKS under orders from Praveen Lutz DO, for the diagnosis of Right Post Tib Tendonitis for a total of 8 visit(s). Discharge Date: Please see the following information for a summary of their discharge status. - Subjective Subjective: Patient reports that she is not any better. When she is not on it its more sporadic but when she over does it its really painful. Feels that she has decreased balance. - Pain R ankle Pain Intensity (Out of 10): 3 - Overall Improvement % Improvement: 50 - Objective Objective/Function: Posture: FH, RS- can correct with VC's but does not maintain. Gait: no deviation noted. Observation: signficant pes planus- poor footwear and no orthotics. HR/TR: able without pain. SLS: 10 seconds then LOB- righted by UE and putting LE on ground. Palpation: tender along posterior tib as it comes behind the medial malleolus and along the medial arch. ROM: DF: 10 degrees, PF: 60 degrees, Inv: 30 degrees, Ever: 20 degrees. Strength: Ankle: 4+/5 throughout, Knee: 5/5, Hip: 4+/5 core: fair. Flex: HS: moderate. Gastroc: moderate, Soleus: moderate - Goals Goal 1:: Patient will be I with HEP and progression Goal Progress: Goal Met Goal 2:: Patient will SLS for 15 sec without LOB Goal Progress: Progressing Goal 3:: Patient will report 0/10 pain for 1 week Goal Progress: Not Progressing - Plan Plan: Discharge- return to MD of further evaluation - D/C Information If there are questions or concerns regarding this patient's physical therapy, please feel free to call me at [phone]. Thank you for the referral of this patient. Sincerely, HOLLIS MirelesT
== END 2019-03-15 19:00 | disposition home or self-care (01) ==
LOC: PT 11:00
PROVIDERS: Family Provider Family Medicine; PCP Family Medicine; Referring Provider Family Medicine; Visit Provider Family Medicine
DX: M72.2 Plantar fascial fibromatosis (principal); M76.821 Posterior tibial tendinitis, right leg; M21.41 Flat foot [pes planus] (acquired), right foot; M19.071 Primary osteoarthritis, right ankle and foot
CPT/HCPCS: 97035; 97110; 97161; 97164; 97530

== ENCOUNTER → 2020-01-31 08:57 | Outpatient (CLI) | payer MEDICARE, SELFPAY ==
[2020-01-31 12:37] LABS: Basophil# 0.04 X10^3/uL; Basophil% 0.6 % (0-1); Eosinophil# 0.35 X10^3/uL; Eosinophils% 5.4 % (0-5); Hematocrit 40.8 % (37-47); Hemoglobin 12.8 g/dL (12.0-15.0); Lymphocyte % 21.6 % (19-41); Mean Corp Hgb Conc 31.4 g/dL (32-36); Mean Corpuscular Hgb 31.3 pg (27.0-32.0); Mean Corpuscular Volume 99.8 fL (81-99); Mean Platelet Vol. 9.9 fl (6.2-12.0); Monocyte# 0.65 X10^3/uL; NRBC Flagged by Analyzer 0 % (0-5); Neutrophil # 4.02 X10^3/uL (2.7-7.7); Neutrophil % 62.2 % (47-70); Platelet Count 194 K/mm3 (150-450); RBC Distribution Width CV 13.9 % (11.6-14.6); RBC Distribution Width SD 50.7 fl (35.1-43.9); Red Blood Count 4.09 M/mm3 (4.2-5.4); White Blood Count 6.5 K/mm3 (4.4-11.0)
[2020-01-31 13:05] LABS: Hemoglobin A1c 6.8 % (4.2-6.3)
[2020-01-31 13:11] LABS: Microalbumin,Random Urine 92.7 mg/L (NO RANGE EST.)
[2020-01-31 13:15] LABS: AST(SGOT) 19 U/L (15-37); Alanine Aminotransfer ALT/SGPT 22 U/L (13-56); Albumin, Serum 3.5 g/dL (3.2-5.0); Alkaline Phosphatase 86 U/L (45-117); Anion Gap 3 (5-15); BUN 26 mg/dL (7-18); BUN/Creat Ratio 27.6 RATIO (10-20); Calcium,Total 8.9 mg/dL (8.5-10.1); Chloride 112 mmol/L (98-107); Cholesterol 184 mg/dL (200); Creatinine, Serum 0.94 mg/dL (0.55-1.02); EST Glomerular Filtration Rate 62 mL/min (>60); Est Glom Filt Rate - Afr Amer 76 mL/min (>60); Globulin 3.6 g/dL (2.2-4.2); Glucose 130 mg/dL (74-106); High Density Lipoprotein 78 mg/dL; Potassium 4.2 mmol/L (3.5-5.1); Protein, Total 7.1 g/dL (6.4-8.2); Sodium Level 142 mmol/L (136-145); T4 Free Direct 1.46 ng/dL (0.76-1.46); Thyroid Stim Hormone (TSH) 0.17 uIU/mL (0.358-3.74); Triglycerides 58 mg/dL; Very Low Density Lipoprotein 12 mg/dL (5-40)
== END ==
PROVIDERS: PCP Family Medicine; Visit Provider Family Medicine
DX: E11.9 Type 2 diabetes mellitus without complications (principal); E03.9 Hypothyroidism, unspecified; Z51.81 Encounter for therapeutic drug level monitoring
CPT/HCPCS: 36415; 80053; 80061; 82043; 82570; 83036; 84439; 84443; 85025

== ENCOUNTER → 2020-06-01 13:21 | Outpatient (CLI) | payer MEDICARE, SELFPAY ==
[2020-06-01 13:02] VITALS: BMI 21.1
--- NOTE | 2020-06-01 13:21 | RAD_ITS ---
STUDY: X-RAY - RIGHT HAND REASON FOR EXAM: Bilateral hand/wrist pain, carpal tunnel syndrome. TECHNIQUE: 3 view(s) of the hand. COMPARISON: None. FINDINGS: Normal radiocarpal articulation. Normal distal radioulnar joint. Normal visualized carpal bones. Normal carpal articulations Normal carpometacarpal articulation of the thumb. Normal second through fifth carpometacarpal joints. Normal metacarpi. Normal metacarpophalangeal joint of the thumb. There is mild joint space narrowing of the interphalangeal joint of the thumb. Normal proximal and distal phalanges of the thumb. Normal metacarpophalangeal joints of the second through fifth fingers. There is joint space narrowing of the distal interphalangeal joints of the second through fifth fingers. There are marginal osteophytes of the proximal interphalangeal joints without joint space narrowing. Normal phalanges of the second through fifth fingers. The soft tissue structures are unremarkable. RAD/Hand Min 3 Views IMPRESSION: Arthrosis of the interphalangeal joints. Electronically Signed: David Puente MD at 15:03 EDT Tel , Service support ,
--- NOTE | 2020-06-01 13:21 | RAD_ITS ---
STUDY: X-RAY - LEFT HAND REASON FOR EXAM: Bilateral hand/wrist pain, carpal tunnel syndrome. TECHNIQUE: 3 view(s) of the hand. COMPARISON: None. FINDINGS: Normal radiocarpal articulation. Normal distal radioulnar joint. Normal visualized carpal bones. Normal carpal articulations Normal carpometacarpal articulation of the thumb. Normal second through fifth carpometacarpal joints. Normal metacarpi. Normal metacarpophalangeal joint of the thumb. There are small marginal osteophytes and mild joint space narrowing of the interphalangeal joint of the thumb. Normal proximal and distal phalanges of the thumb. Normal metacarpophalangeal joints of the second through fifth fingers. There is joint space narrowing of the distal interphalangeal joints of the second through fifth fingers and marginal osteophytes of the proximal interphalangeal joints without joint space narrowing. Normal phalanges of the second through fifth fingers. The soft tissue structures are unremarkable. RAD/Hand Min 3 Views IMPRESSION: Arthrosis of the interphalangeal joints. Electronically Signed: David Puente MD at 15:03 EDT Tel , Service support ,
== END ==
PROVIDERS: PCP Family Medicine; Referring Provider Orthopaedic Surgery; Visit Provider Orthopaedic Surgery
DX: M79.641 Pain in right hand (principal); M79.642 Pain in left hand
CPT/HCPCS: 73130

== ENCOUNTER 2020-07-21 05:43 | Day surgery (SDC) | payer MEDICARE, SELFPAY ==
--- NOTE | 2020-06-01 01:30 | HP_ITS ---
I have re-examined the patient. There are no clinical changes since date of exam. Intake Vital Signs 06/01/20 Height 5 ft 7 in 06/01/20 Weight: 131 lb 06/01/20 BMI 20.5 Intake Visit Reasons: Bilat wrist Is patient in pain?: Yes Pain scale (1-10): 1 Allergies No Known Allergies Allergy (Verified 06/01/20 13:00) Medications bupropion HCl 300 mg 24 hr tablet, extended release 300 mg PO QAM 11/20/18 [History Confirmed 06/01/20] calcium PO QDAY 11/20/18 [History Confirmed 06/01/20] cholecalciferol (vitamin D3) 25 mcg (1,000 unit) tablet 1,000 unit PO DAILY 11/20/18 [History Confirmed 06/01/20] multivit with min-folic acid 0.4 mg tablet mg PO tab 11/20/18 [History Confirmed 06/01/20] levothyroxine 175 mcg tablet 175 mcg PO DAILY 11/23/18 [History Confirmed 06/01/20] lisinopril 2.5 mg tablet 5 mg PO DAILY 11/23/18 [History Confirmed 06/01/20] metformin 500 mg tablet 500 mg PO TID tab 11/23/18 [History Confirmed 06/01/20] valacyclovir 500 mg tablet 500 mg PO DAILY 06/01/20 [History Confirmed 06/01/20] [facility] Medical History (Updated 11/26/18 @ 05:13 by Lili Elkins, SEMICONDUCTOR ENGINEER-C) Anxiety and depression (Acute) Arthritis (Acute) Back problem (Acute) Carpal tunnel syndrome (Acute) Cataracts, bilateral (Acute) GERD (gastroesophageal reflux disease) (Acute) Goiter (Acute) H/O: pneumonia (Acute) Hypothyroidism (Acute) Neuropathy (Acute) Recurrent UTI (Acute) Seasonal allergies (Acute) TIA (transient ischemic attack) (Acute) Type 2 diabetes mellitus (Acute) Vision problems (Acute) Social History (Updated 06/01/20 @ 15:[address] Melissa Whelan, ) Smoking Status: Current every day smoker alcohol intake: current alcohol intake frequency: holidays/special occasions only substance use type: does not use HPI Bilat wrist: Surgical H&P: Yes Details: Parts of this documentation were recorded by a scribe, this documentation accurately reflects the service provided and the decisions made by me, Dr. Melissa Whelan, DO 06/01/20 [id number]. IMAN HICKS is a 70 year old F here today for bilateral hand pain, right greater than left. 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 Patient notes that she has numbness of her entire hand but mostly her middle finger. She has a splint which she wears at night. She states that her pain is worse at night. Patient notes that she has started dropping items more frequently. Patient had cortisone injection about 8 years ago. She had an EMG study while in [place] about 10 years ago. Patient has developed a cyst over her palmar surface about 3 weeks ago. not painful. ROS Musc Reports joint pain, Reports muscle weakness, Reports numbness, Reports tingling Skin/Breast Reports system reviewed and no additional complaints, except as docu Neuro Yes system reviewed and no additional complaints, except as docu, Yes numbness, Yes tingling Ortho Exam Right Wrist/Hand Sensation: Median: D WRIST: thenar wasting Assessment & Plan Problems 1. Carpal tunnel syndrome of right wrist G56.01 Plan Educated the patient about the anatomy of the hand and etiology of her symptoms. Spoke with her about the surgery procedure and recovery. She will be in a soft splint for 2 weeks post op. Reviewed the pre-operative plans with the patient. Risks and benefits of the procedure were fully explained, including but not limited to infection, neurovascular injury, continued pain, arthritis, stiffness, need for further surgery, re-injury, DVT, PE, general risks of anesthesia, and loss of limb or life. The patient understands all the risks and does wish to proceed with written consent. cyst in hand may be start of dupuytrens. will watch. Anemia leave we discussed the current risk associated COVID-19. While it is understood that there is a community spread of COVID 19 the risk of sanna COVID-[address] [facility] is very low, however, the risk cannot be completely mitigated because of the community spread of the disease. We discussed in detail the risk of exposure to and or potential harm posed by the COVID-19 virus with having a surgery/procedure at this time versus the risk of delaying the surgery/procedure. Is not possible to know either the risk of delaying the surgery procedure or chance of getting an infection with perfect accuracy, but a joint decision was made to proceed at this time with a schedule surgery/procedure as indicated on the consent form. Patient was notified that we will need to comply with any screening or testing [facility] wishes to perform or that surgery may be delayed for any positive results. xrays of hands show IP oa.see chart for further details. Follow up for her 2 week post op or sooner if pain, swelling, numbness or associated symptoms, or concerns develop. All questions answered. Patient in agreement of plan. Orders Orders: Hand Min 3 Views Today M79.641, M79.642 Hand Min 3 Views Today M79.641, M79.642 Hand Min 3 Views Today M79.641, M79.642 Coding Level of Care Code 59631 Diagnoses Carpal tunnel syndrome of right wrist G56.01 COVID (Procedure Consent) Procedure Criteria Procedure Criteria: Yes Elective The surgeon/proceduralist and patient have discussed in detail the risk of exposure to and/or potential harm posed by the COVID-19 virus with having a surgery/procedure at this time versus the risk of? delaying the surgery/procedure. It is not possible to know either the risk of delaying the surgery or procedure or chance of getting an infection with perfect accuracy, but a joint decision was made between the patient and the surgeon/proceduralist ?to proceed at this time with the scheduled surgery/procedure as indicated on the consent form. 06/01/20 1524 <Electronically signed by Melissa henry DO> Date _ Melissa Whelan DO
[2020-06-01 13:02] VITALS: BMI 21.1
[2020-07-19 10:36] VITALS: BMI 21.1
[2020-07-21] VITALS (7 sets, daily range): BP systolic 113–136; BP diastolic 65–83; PULSE 73–84; RESP 14–16; TEMP 36.5–37.2; O2SAT 96–99; BMI 20.6
[2020-07-21 06:36] LABS: Bedside Glucose 108 mg/dL (70-110)
[2020-07-21] MEDS: Lactated Ringers 1,000 ML 100 ML IV (06:40)
[2020-07-21] MEDS: Cefazolin 2 GM in 0.9% Normal Saline 100 ML IV (07:26)
[2020-07-21] MEDS: Mupirocin Ointment 22gm Tube 1 APPLIC (07:54)
--- NOTE | 2020-07-21 08:19 | PCM.DC.ORTHO ---
Discharge Diet: No Restrictions - Leave dressing on until seen in postop clinic in 10-14 days for suture removal, keep dressing clean, dry, intact; change dressing if gets wet/dirty, call with concerns Discharge Activity: May Not Drive May shower in (days): 1 Ice area for (Minutes): 20 - Every hour while awake. Weight Bearing Status: Weight bearing as tolerated Keep extremity elevated above heart level: Operative Extremity Call your doctor if your incision/area has: Continuous Slow Oozing, Sudden Increased Bleeding, Increased Pain/ Swelling, Increased Redness, Foul Smelling Discharge Call your doctor if you observe: Fever of 101 or Higher, Coldness, Increased Pain, Numbness or Tingling, Change in Color, Calf discomfort Allergies/Adverse Reactions: Allergies No Known Allergies Allergy (Verified 07/21/20 06:13) Medications to take at Discharge bupropion HCl 300 mg 24 hr tablet, extended release 300 mg PO QAM 11/20/18 multivit with min-folic acid 0.4 mg tablet 1 tab PO DAILY tab 11/20/18 levothyroxine 175 mcg tablet 175 mcg PO DAILY 11/23/18 lisinopril 2.5 mg tablet 5 mg PO QHS 11/23/18 metformin 500 mg tablet 1,000 mg PO DAILY tab 11/23/18 valacyclovir 500 mg tablet 500 mg PO DAILY 06/01/20 Fluticasone 0.05% [Flonase Nasal [place]] 1 spray NASAL DAILY 06/22/20 Loratadine [Claritin] 10 mg PO DAILY 06/22/20 Metformin HCl [Metformin HCl ER] 500 mg PO QHS 06/22/20 Acetaminophen/Codeine #3 [Tylenol #3 Tablet] 1 - 2 tablet PO Q6H PRN PRN #30 tablet 07/21/20 The following prescriptions were given: Acetaminophen/Codeine #3 [Tylenol #3 Tablet] 1 - 2 tablet PO Q6H PRN PRN #30 tablet PRN Reason: Pain Transmission Status: Sent to [facility] Primary Care Physician: Praveen Lutz DO [Primary Care Provider] - Test Results: Test results from this visit will be discussed in further detail at your follow-up appointment, if applicable. Please Follow Up With: Melissa Whelan DO - [phone]
[2020-07-21] MEDS: HYDROcodone Bitartrate/Apap 5/325 Tablet PO (08:54)
--- NOTE | 2020-07-21 09:18 | OP.PCM_ITS ---
Report of Operation Date of Procedure: 07/21/20 Description of Procedure: Preoperative note Patient is a 70 year old patient with nerve conduction study confirming right carpal tunnel syndrome. Patient failed conservative treatment for her carpal tunnel elected proceed with right carpal tunnel release. Risks benefits and alternatives surgery discussed with patient. Risks including but not limited to blood loss, blood clot, infection, neurovascular injury, failure procedure, loss of life and loss of limb. Patient is aware like proceed with right carpal tunnel release. We discussed the current risk associated COVID-19. While it is understood that there is a community spread of COVID 19 the risk of sanna COVID-19 while at [facility] is very low, however, the risk cannot be completely mitigated because of the community spread of the disease. We discussed in detail the risk of exposure to and or potential harm posed by the COVID-19 virus with having a surgery/procedure at this time versus the risk of delaying the surgery/procedure. Is not possible to know either the risk of zoltan lopez the surgery procedure or chance of getting an infection with perfect accuracy, but a joint decision was made to proceed at this time with a schedule surgery/procedure as indicated on the consent form. Patient was notified that we will need to comply with any screening or testing [facility] wishes to perform or that surgery may be delayed for any positive results. Operative note Patient seen and examined preoperative holding area. right hand was marked. History and physical and consent reviewed. Patient was brought to the operating room placed supine on the operating table. Sign in, anesthesia, antibiotics were administered. right upper extremity was prepped and draped after [place] block was initiated. All bony prominences well-padded SCDs placed on bilateral lower extremities. We marked out our incisions for our carpal tunnel release at the intersection of Shawn's line in the fourth ray flexed. We extended about a centimeter and a half. Timeout was performed. We then used a 15 blade to make a skin incision. We then dissected down tenotomy syllable of the transverse carpal ligament. We then used a new 15 blade cut through the transverse carpal ligament down to the level of the median nerve. We then further released the median nerve the combination of the 15 blade and tenotomies. The nerve was grayish in color and adherent to the transverse carpal ligament volarly. We released the transverse carpal ligament distally to the fat pad and then proximally under standard technique. We then palpated to ensure that we released all of the transverse carpal ligament which we did. We irrigated the incision with copious amounts of sterile saline. All bleeders were coagulated. The incision was closed with interrupted 4-0 nylon stitches. Tourniquet was deflated for total working time of 10 minutes. Patient tolerated procedure well there were no complications. Patient transferred to recovery room in stable condition. Postoperative note Hospital pharmacy has prescription Leave dressing clean dry and intact Follow-up in 2 weeks Call with concerns This note was generated with [employer] 3[employer] dictation software. It may contain incorrect words, spelling, and punctuation that were not noted in checking the note before signing
== END 2020-07-21 09:32 | disposition home or self-care (01) ==
LOC: SDC 05:43 → AC 05:46
PROVIDERS: Anesthesiology; PCP Family Medicine; Referring Provider Orthopaedic Surgery; Visit Provider Orthopaedic Surgery
PROC: (CPT 64721; principal; 2020-07-21 07:15)
DX: G56.01 Carpal tunnel syndrome, right upper limb (principal); Z11.59 Encounter for screening for other viral diseases; I10 Essential (primary) hypertension; F41.9 Anxiety disorder, unspecified; F32.9 Major depressive disorder, single episode, unspecified; M19.90 Unspecified osteoarthritis, unspecified site; K21.9 Gastro-esophageal reflux disease without esophagitis; E03.9 Hypothyroidism, unspecified; E11.40 Type 2 diabetes mellitus with diabetic neuropathy, unspecified; J30.2 Other seasonal allergic rhinitis; Z78.0 Asymptomatic menopausal state; Z86.2 Personal history of diseases of the blood and blood-forming organs and certain disorders involving the immune mechanism; Z86.73 Personal history of transient ischemic attack (TIA), and cerebral infarction without residual deficits; Z87.01 Personal history of pneumonia (recurrent); Z87.440 Personal history of urinary (tract) infections; Z79.84 Long term (current) use of oral hypoglycemic drugs; Z79.899 Other long term (current) drug therapy; F17.200 Nicotine dependence, unspecified, uncomplicated
CPT/HCPCS: 01810; 64721; 82962; 87635; 94799; J7120; U0003

== ENCOUNTER → 2020-12-29 13:07 | Outpatient (CLI) | payer MEDICARE, SELFPAY ==
[2020-12-29 13:07] VITALS: BMI 20.6
[2020-12-29 15:51] LABS: T4 Free Direct 1.11 ng/dL (0.76-1.46)
== END ==
PROVIDERS: PCP Family Medicine; Referring Provider Internal Medicine Endocrinology, Diabetes & Metabolism; Visit Provider Internal Medicine Endocrinology, Diabetes & Metabolism
DX: E04.0 Nontoxic diffuse goiter (principal)
CPT/HCPCS: 36415; 84439; 84443

== ENCOUNTER 2021-01-25 10:13 | Outpatient (RCR) | payer MEDICARE, SELFPAY ==
[2021-01-24 10:44] VITALS: BMI 20.5
[2021-01-25] MEDS: COVID-19 VACC, MRNA(PFIZER)/PF 30 MCG/0.3 ML SYRINGE IM (18:55)
[2021-02-15] MEDS: COVID-19 VACC, MRNA(PFIZER)/PF 30 MCG/0.3 ML SYRINGE IM (18:37)
== END 2021-05-01 23:59 ==
LOC: IMMUN 10:13
PROVIDERS: PCP Family Medicine; Visit Provider Family Medicine
DX: Z23 Encounter for immunization (principal)
CPT/HCPCS: 0001A; 0002A; 91300

== ENCOUNTER 2021-01-27 18:26 | Emergency (ER) | payer MEDICARE, SELFPAY ==
[2021-01-24 10:44] VITALS: BMI 20.5
[2021-01-27 18:27] VITALS: BP 131/82; PULSE 85; RESP 15; TEMP 36.7; O2SAT 99; BMI 20.7
--- NOTE | 2021-01-27 18:51 | ED.DCSUM_ITS ---
- ER Visit Summary Date of Service: 01/27/21 Chief Complaint: [Splinter under fingernail of right ring finger] History of Present Illness: The patient is a 71 F [presents to the emergency department complaining of injury to her right ring finger. Patient states that she jammed it into a wooden door and got a splinter underneath her fingernail. Patient is right-hand dominant. Patient unsure of her last tetanus shot. Patient has history of GERD, diabetes, history of hypothyroidism.] Physical Examination: [Right hand-patient has a foreign body noted underneath the right ring finger nail. Patient has normal range of motion flexion extension of all digits. She is neurovascular intact.] Test Results: [None indicated] Emergency Department Course and Treatment: [Patient was offered removal of splinter and she agreed to procedure. Patient had a digital block performed using 1% lidocaine total of 8 cc. Patient had good anesthesia with that. Using curved hemostats I was able to lift the nail off the nail bed and using splinter forceps I was able to remove the splinter from underneath the nail. The area under the nail was irrigated with saline. Clean dressing applied.] Treatment Plan: [Patient advised to follow-up with primary care physician in 3 to 5 days for a wound check. Patient advised to return if increasing pain, redness, swelling, purulent drainage, or condition should worsen anyway.] Disposition: Discharged home in stable condition [] Impression: [Foreign body/splinter removal from right ring finger] This note was generated with [employer] dictation software. It may contain incorrect words, spelling, and punctuation that were not noted in review of the chart prior to signing ED Disposition - Plan for ED Patient: Referrals: Praveen Lutz DO [Primary Care Provider] -
[2021-01-27] MEDS: Lidocaine 1% (20 ml mdv) 20 ML Vial 8 ML INFILT (19:13)
--- NOTE | 2021-01-27 19:23 | ED.DEP ---
ED Disposition - Plan for ED Patient: Instructions: ED Foreign Body Soft Tissue Referrals: Praveen Lutz DO [Primary Care Provider] - 3-5 Days
[2021-01-27] MEDS: Diphth,Pertuss(Acell),Tet Vac 0.5 ML Vial IM (19:26)
== END 2021-01-27 19:41 | disposition home or self-care (01) ==
LOC: ED 19:41
PROVIDERS: Emergency Provider Emergency Medicine; PCP Family Medicine
DX: S60.454A Superficial foreign body of right ring finger, initial encounter (principal); W45.8XXA Other foreign body or object entering through skin, initial encounter; Y93.9 Activity, unspecified; Y92.9 Unspecified place or not applicable; E03.9 Hypothyroidism, unspecified; E11.9 Type 2 diabetes mellitus without complications; K21.9 Gastro-esophageal reflux disease without esophagitis; Z79.84 Long term (current) use of oral hypoglycemic drugs; Z79.899 Other long term (current) drug therapy; Z72.0 Tobacco use
CPT/HCPCS: 90471; 90715; 99282

== ENCOUNTER → 2021-02-01 13:56 | Outpatient (CLI) | payer MEDICARE, SELFPAY ==
[2021-01-27 18:27] VITALS: BMI 20.7
[2021-02-01 15:45] LABS: Thyroid Stim Hormone (TSH) 0.06 uIU/mL (0.358-3.74)
== END ==
PROVIDERS: PCP Family Medicine; Visit Provider Family Medicine
DX: E03.9 Hypothyroidism, unspecified (principal)
CPT/HCPCS: 36415; 84439; 84443

== ENCOUNTER → 2021-09-06 13:47 | Outpatient (CLI) | payer MEDICARE, SELFPAY ==
--- NOTE | 2021-09-06 14:02 | BD_ITS ---
STUDY: DUAL ENERGY X-RAY ABSORPTIOMETRY / DXA REASON FOR EXAM: Female, 71 years old. 733.90OsteopeniaBONE DENSITY REASON FOR EXAM TECHNIQUE: Bone Mineral Density (BMD) measurements of lumbar spine and bilateral hips were obtained. COMPARISON: None. FINDINGS: Lumbar Spine (L1-L4): g/cm2 (0.985) / T-score (-0.3) / Z-score (1.9) Findings are suggestive of normal bone density with a low fracture risk. Left Femur Total: g/cm2 (0.785) / T-score (-1.3) / Z-score (0.3) Left Femoral Neck: g/cm2 (0.703) / T-score (-1.3) / Z-score (0.6) Right Femur Total: g/cm2 (0.783) / T-score (-1.3) / Z-score (0.3) Right Femoral Neck: g/cm2 (0.632) / T-score (-2.0) / Z-score (-0.1) BD/Dexa Bone Density Study IMPRESSION: The patient is considered osteopenic as outlined below according to [place] Organization (WHO) criteria with a moderate fracture risk. Reference Information: The T-score is the number of standard deviations above or below the standard which is normal for young adults at their peak bone mineral density. The World Health Organization (WHO) interprets the T-scores as follows: Above -1 Normal bone density Between -1 and -2.5 Osteopenia Equal to / or below -2.5 Osteoporosis As a practical clinical guideline, osteopenia may be graded as follows: Mild -1 through -1.5 Moderate -1.6 through -2.0 Severe -2.1 through -2.4 The Z-score is the number of standard deviations above or below age-matched controls. A Z-score of less than -1.5 would be considered abnormal. References: 1. NIH Osteoporosis and Related Bone Diseases www osteo.org 2. International Society for Clinical Densitometry www iscd.org 3. National Osteoporosis Foundation www nof.org Electronically Signed: Michael Abdul MD at 9:37 EDT , Service support ,
--- NOTE | 2021-09-06 14:42 | CT_ITS ---
STUDY: LOW DOSE CT LUNG CANCER SCREENING REASON FOR EXAM: Female, 71 years old. 30-55 pack-year history. RADIATION DOSAGE (If Supplied By Facility): CTDIvol = ( 1.59 ) mGy, DLP = ( 66.59 ) mGycm TECHNIQUE: No contrast was administered. Low dose technique was utilized (average mAS-38 and kVp 120). 1.25 mm axial source images with a slice interval of 1.25-mm were reconstructed in lung windows. 2.5 mm axial source images with a slice interval of 2.5-mm were reconstructed in lung windows. 5.0 mm axial source images with a slice interval of 5.0-mm were reconstructed in soft tissue windows. Nodule measured using lung windows on PACS and/or independent workstation with automated measurement of minimum and maximum diameter. Nodule measurement reported as average diameter rounded to the nearest whole number. Growth is defined as an increase ins size of greater than 1.5 mm. COMPARISON: None. NODULES: Total lung nodules (excluding granulomas): 0 Emphysema: Mild emphysematous changes without infiltrate or mass. Endobronchial lesion: None Aorta: Minimal atherosclerotic changes of the thoracic aorta without aneurysm. Coronary arteries: Minimal coronary artery calcifications. Heart: Normal Pulmonary artery: Normal Mediastinal nodes: Nonspecific subcentimeter mediastinal lymphadenopathy. Other chest and abdominal findings: Bilateral breast implants. Minimal degenerative changes of the thoracic spine. CT/Low Dose CT Lung Screening IMPRESSION: Lung-RADS category 1 - Continue annual screening with LDCT in 12 months. IMPORTANT NOTES FOR USE: ACR Lung-RADS Version 1.1 Assessment Categories Release Date: 2018 Category: Coded 0-4 bases on nodule(s) with highest degree of suspicion. Negative screen is defined as categories 1 and 2; a positive screen is defined as categories 3 and 4. Category 3 and 4A nodules that are unchanged on interval CT should be coded as category 2, and individuals returned to screening in 12 months. Category 4X: Category 3 or 4 nodules with additional imaging findings that increase the suspicion of lung cancer, such as spiculation, GGN that doubles in size in 1 year, enlarged lymph notes, etc. Category Modifiers: S (significant finding unrelated to lung cancer) Electronically Signed: Naldo Salazar DO at 18:27 EDT Tel [phone], Service support ,
== END ==
PROVIDERS: PCP Family Medicine; Referring Provider Family Medicine; Visit Provider Family Medicine
DX: M85.859 Other specified disorders of bone density and structure, unspecified thigh (principal); Z12.2 Encounter for screening for malignant neoplasm of respiratory organs; Z87.891 Personal history of nicotine dependence; Z78.0 Asymptomatic menopausal state
CPT/HCPCS: 71271; 77080

== ENCOUNTER 2021-11-09 19:52 | Emergency (ER) | payer MEDICARE, SELFPAY ==
[2021-11-09 19:52] VITALS: BP 130/86; PULSE 93; RESP 16; TEMP 36.1; O2SAT 96; BMI 20.7
--- NOTE | 2021-11-09 20:24 | CT_ITS ---
HISTORY: abdominal pain EXAMINATION: CT Abdomen And Pelvis W/O Contrast Injection TECHNIQUE: Multiple axial images were obtained of the abdomen and pelvis following oral contrast. No IV contrast was administered. A radiation dose optimization technique was used for this scan. IV Contrast dosage and agent: None Oral contrast: Yes. COMPARISON: None FINDINGS: LOWER CHEST: Bibasilar dependent changes. No cardiomegaly or pericardial effusion. Bilateral breast implants with calcified capsules partially imaged. LIVER: Homogeneous. No focal mass. GALLBLADDER AND BILIARY TREE: No calcified gallstones. No gallbladder distension or wall edema. No intra- or extrahepatic biliary ductal dilation. PANCREAS: No focal cystic or solid mass. SPLEEN: Normal size without focal cystic or solid mass. ADRENAL GLANDS: No nodules. KIDNEYS AND URETERS: Bilateral cortical cysts and nonobstructing renal calculi. Right hydroureteronephrosis without calculus in the lumen of the right ureter. PERITONEUM: No ascites or free air. BOWEL: Normal appendix. No stomach or bowel distension. No focal inflammatory bowel wall changes. LYMPH NODES: No enlarged mesenteric or retroperitoneal lymph nodes. VESSELS: Aorta is non-dilated. URINARY BLADDER: 4 mm calculus in the urinary bladder near the right ureteral orifice. REPRODUCTIVE ORGANS: No pelvic masses. Pessary present. ABDOMINAL WALL: Small fat-containing umbilical hernia. BONES: No acute or aggressive abnormality. CT/Abdomen/Pel W ORAL Cont Only IMPRESSION: Findings consistent with recent passage of a 4 mm right ureteral calculus into the urinary bladder. Residual bilateral nephrolithiasis. Individualized dose optimization techniques were used for this CT. at 2231 Reported and signed by: Chinmay Bobby MD Electronically Signed: Chinmay Bobby MD at 22:30 EST Tel , Service support ,
[2021-11-09 20:55] LABS: Absolute Lymphocyte Count 0.83 X10^3/uL (0.83-4.51); Absolute Neutrophil Count 11.7 X10^3/uL (2.0-7.7); Basophil# 0.03 X10^3/uL; Basophil% 0.2 % (0-1); Eosinophil# 0.01 X10^3/uL; Eosinophils% 0.1 % (0-5); Hematocrit 41.2 % (37-47); Hemoglobin 13.9 g/dL (12.0-15.0); Lymphocyte # 0.83 X10^3/ul (0.83-4.51); Lymphocyte % 6.2 % (19-41); Mean Corp Hgb Conc 33.7 g/dL (32-36); Mean Corpuscular Hgb 34.5 pg (27.0-32.0); Mean Corpuscular Volume 102.2 fL (81-99); Mean Platelet Vol. 9.1 fl (6.2-12.0); Monocyte# 0.83 X10^3/uL; Monocyte% 6.2 % (0-10); NRBC Flagged by Analyzer 0 % (0-5); Neutrophil # 11.67 X10^3/uL (2.7-7.7); Neutrophil % 86.9 % (47-70); Platelet Count 279 K/mm3 (150-450); RBC Distribution Width CV 12.9 % (11.6-14.6); RBC Distribution Width SD 48.2 fl (35.1-43.9); Red Blood Count 4.03 M/mm3 (4.2-5.4); White Blood Count 13.4 K/mm3 (4.4-11.0)
[2021-11-09 21:09] LABS: AST(SGOT) 19 U/L (15-37); Alanine Aminotransfer ALT/SGPT 19 U/L (13-56); Albumin, Serum 3.6 g/dL (3.2-5.0); Alkaline Phosphatase 95 U/L (45-117); Anion Gap 7 (5-15); BUN 28 mg/dL (7-18); BUN/Creat Ratio 16.8 RATIO (10-20); Bilirubin, Direct 0.09 mg/dL (0.00-0.30); Calcium,Total 9.6 mg/dL (8.5-10.1); Chloride 103 mmol/L (98-107); Creatinine, Serum 1.67 mg/dL (0.55-1.02); EST Glomerular Filtration Rate 32 mL/min (>60); Est Glom Filt Rate - Afr Amer 39 mL/min (>60); Estimated Creatinine Clearance 29.36 ml/min; Globulin 4.4 g/dL (2.2-4.2); Glucose 221 mg/dL (74-106); Potassium 4.8 mmol/L (3.5-5.1); Sodium Level 137 mmol/L (136-145)
[2021-11-09] MEDS: 0.9% Normal Saline 1,000 ML 1000 ML IV (21:24)
--- NOTE | 2021-11-09 21:26 | EX.ED.DYSGE1 ---
HPI History of Present Illness Chief Complaint: Constipation Informant: patient Onset/Context/Timing Onset: Today Current Severity: Mild Maximum Severity: Moderate Narrative Narrative: Patient presents due to concerns for constipation. She states today she has had a lot of pressure in her abdomen and feels like she is constipated. She tried taking milk of magnesia today without improvement. She does report passing a very small amount of stool. She has felt nauseated. Patient does state that she was seen by Dr. Beck yesterday and a pessary was placed. [facility] Medical History (Updated 11/09/21 @ 23:[address] Analisa Mullen MD) Anxiety and depression Arthritis Back problem Carpal tunnel syndrome Cataracts, bilateral GERD (gastroesophageal reflux disease) Goiter H/O: pneumonia Hypothyroidism Neuropathy Recurrent UTI Seasonal allergies TIA (transient ischemic attack) Type 2 diabetes mellitus Vision problems Home Medications bupropion HCl 300 mg 24 hr tablet, extended release 300 mg PO QAM 11/20/18 [History Last Taken 07/21/20 05:15] multivitamin with minerals-folic acid 0.4 mg tablet 1 tab PO DAILY tab 11/20/18 [History Last Taken Unknown] lisinopril 2.5 mg tablet 5 mg PO QHS 11/23/18 [History Last Taken Unknown] valacyclovir 500 mg tablet 500 mg PO DAILY 06/01/20 [History Last Taken Unknown] fluticasone propionate 1 spray NASAL DAILY 06/22/20 [History Last Taken Unknown] loratadine 10 mg PO DAILY 06/22/20 [History Last Taken Unknown] metformin 500 mg tablet 1,000 mg PO BID tab 08/04/20 [History Last Taken Unknown] conjugated estrogens 0.625 mg/gram vaginal cream 0.625 mg VAGINAL 2XW #30 g 09/01/20 [Rx Last Taken Unknown] omeprazole 40 mg capsule,delayed release 40 mg PO DAILY 10/13/20 [History Last Taken Unknown] levothyroxine 175 mcg tablet 175 mcg PO DAILY #60 tab 01/01/21 [Rx Last Taken Unknown] Allergy/AdvReac Type Severity Reaction Status Date / Time No Known Allergies Allergy Verified 10/13/20 11:05 Family History Mother Cancer Father Diabetes Heart disease Sister Diabetes Social History Smoking Status: Current every day smoker tobacco type: cigarettes alcohol intake: current alcohol intake frequency: holidays/special occasions only substance use type: does not use ROS ROS ED Constitutional Constitutional ED: Denies chills or fever(s) Eyes Eyes: Denies change in vision ENT ENT ED: Denies sore throat Cardiovascular Cardiovascular: Denies chest pain Respiratory/Chest Respiratory/Chest: Denies cough or dyspnea Gastrointestinal Gastrointestinal: Reports abdominal pain, constipation and nausea; Denies diarrhea or vomiting Genitourinary Genitourinary ED: Denies dysuria Musculoskeletal Musculoskeletal: Denies back pain Integumentary Denies rash Neurologic Neurologic: Denies headache(s) or weakness Allergic/Immunologic Allergic/Immunologic ED: Denies urticaria EXAM Physical Exam Const Vital Signs: 11/09/21 19:52 Temperature 97 F L Temperature Source Temporal Pulse Rate 93 Respiratory Rate 16 Blood Pressure 130/86 H Blood Pressure Mean 100 Pulse Ox 96 Oxygen Delivery Method Room Air Positive well nourished and well developed General Appearance ED: well developed HEENT Reports moist mucous membranes Eyes PERRL and EOMs intact bilaterally Neck supple Chest Wall inspection of chest normal and palpation of chest normal Resp normal respiratory effort and clear to auscultation bilaterally Cardio regular rate and regular rhythm GI non-tender Auscultation: hypoactive bowel sounds Palpation: soft Extremity normal to inspection Neuro oriented x3 Sensorium / Orientation: alert Psych mental status grossly normal Skin no rashes or lesions noted MDM MDM MDM Narrative Medical decision making narrative: Patient declined anything for pain. Lab work and CT scan abdomen pelvis ordered. Lab Data Attestation: I reviewed the patient's lab results. Labs: Laboratory Results - last 24 hr 11/09/21 11/09/21 20:32 20:32 WBC 13.4 H RBC 4.03 L Hgb 13.9 Hct 41.2 MCV 102.2 H MCH 34.5 H MCHC 33.7 RDW Std Deviation 48.2 H RDW Coeff of [place] 12.9 Plt Count 279 MPV 9.1 Immature Gran % (Auto) 0.400 Neut % (Auto) 86.9 H Lymph % (Auto) 6.2 L [place] % (Auto) 6.2 Eos % (Auto) 0.1 Baso % (Auto) 0.2 Absolute Neuts (auto) 11.7 H Absolute Lymphs (auto) 0.83 Nucleated RBC % 0 Sodium 137 Potassium 4.8 Chloride 103 Carbon Dioxide 27.0 Anion Gap 7 BUN 28 H Creatinine 1.67 H Estim Creat Clear Calc 29.36 Est GFR (MDRD) Af Amer 39 L Est GFR (MDRD) Non-Af 32 L BUN/Creatinine Ratio 16.8 Glucose 221 H Calcium 9.6 Total Bilirubin 0.40 Direct Bilirubin 0.09 AST 19 ALT 19 Alkaline Phosphatase 95 Total Protein 8.0 Albumin 3.6 Globulin 4.4 H Radiography Diagnostic Testing: Clinical Impression(s) from Imaging Studies Abdomen CT 11/09/21 20:24 IMPRESSION: Findings consistent with recent passage of a 4 mm right ureteral calculus into the urinary bladder. Residual bilateral nephrolithiasis. Individualized dose optimization techniques were used for this CT. at 2231 Reported and signed by: Chinmay Bobby MD Electronically Signed: Chinmay Bobby MD at 22:30 EST Tel , Service support , Treatment and Re-Evaluation Comments:: Patient's white count is mildly elevated at 13.4. Chemistry studies reveal a creatinine of 1.67. This is slightly worsened when compared to prior studies. In light of this she is given a liter IV fluid bolus. CT scan was obtained with p.o. contrast only. This reveals evidence of a recently passed 4 mm right ureteral calculus. Stone is currently in the bladder. Test results discussed with the patient. When I reviewed the CT images she does have a moderate amount of stool. She will be sent home with magnesium citrate. She was educated about kidney stones and what to watch for. She does have evidence of other stones in her kidneys that may cause issues in the future. Return instructions are provided. Discharge Plan Triage Chief Complaint: Constipation ED Provider: Analisa Mullen Dx/Rx/DC Orders Clinical Impression: Kidney stone, Constipation Instructions: ED Constipation (Adult), ED Kidney Stone w/ Colic Prescriptions: No Action Adult One Daily Multivitamin 0.4 mg tablet 1 tab PO DAILY RF: 0 bupropion HCl 300 mg tablet extended release 24 hr 300 mg PO QAM RF: 0 lisinopril 2.5 mg tablet 5 mg PO QHS RF: 0 metformin 500 mg tablet 1,000 mg PO BID RF: 0 valacyclovir 500 mg tablet 500 mg PO DAILY RF: 0 Premarin 0.625 mg/gram cream 0.625 mg VAGINAL 2XW Qty: 30 RF: 0 omeprazole 40 mg capsule,delayed release(DR/EC) 40 mg PO DAILY RF: 0 levothyroxine [Synthroid] 175 mcg tablet 175 mcg PO DAILY Qty: 60 RF: 2 fluticasone propionate 1 SPRAY spray,suspension 1 spray NASAL DAILY RF: 0 loratadine 10 MG capsule 10 mg PO DAILY RF: 0 Primary Care Provider: Praveen Lutz Referrals: Angela Beck MD [STAFF PHYSICIAN] - Keep Radha appointment Praveen Lutz DO [Primary Care Provider] - Activity Restrictions/Additional Instructions: Tomorrow morning, drink half bottle of magnesium citrate. If no significant bowel movement 3 to 4 hours drink the remainder of the bottle. Disposition Disposition: Home, Self Care
[2021-11-09] MEDS: Magnesium Citrate 300 ML PO (23:17)
== END 2021-11-09 23:22 | disposition home or self-care (01) ==
PROVIDERS: Emergency Provider Emergency Medicine; PCP Family Medicine
DX: N20.0 Calculus of kidney (principal); K59.00 Constipation, unspecified; E03.9 Hypothyroidism, unspecified; E11.36 Type 2 diabetes mellitus with diabetic cataract; E11.40 Type 2 diabetes mellitus with diabetic neuropathy, unspecified; F32.A Depression, unspecified; F41.9 Anxiety disorder, unspecified; G56.03 Carpal tunnel syndrome, bilateral upper limbs; K21.9 Gastro-esophageal reflux disease without esophagitis; M19.90 Unspecified osteoarthritis, unspecified site; Z87.01 Personal history of pneumonia (recurrent); Z86.73 Personal history of transient ischemic attack (TIA), and cerebral infarction without residual deficits; Z87.440 Personal history of urinary (tract) infections; Z79.84 Long term (current) use of oral hypoglycemic drugs; Z79.899 Other long term (current) drug therapy; F17.210 Nicotine dependence, cigarettes, uncomplicated
CPT/HCPCS: 74176; 80048; 80076; 85025; 96360; 96361; 99283; J7030; A4216

== ENCOUNTER → 2021-11-21 15:56 | Outpatient (CLI) | payer MEDICARE, SELFPAY ==
--- NOTE | 2021-11-21 15:59 | RAD_ITS ---
STUDY: X-RAY - ABDOMEN/PELVIS REASON FOR EXAM: Female, 71 years old. KUB- KIDNEY STONES TECHNIQUE: Single AP view of the abdomen / pelvis. COMPARISON: None. FINDINGS: Normal visualized lung bases. There is an unremarkable bowel gas pattern. Multiple small calcific opacities overlying both kidneys consistent with bilateral renal stones. No definite ureteral stone. Pessary in the vagina. Normal visualized osseous structures. RAD/Abdomen Single View IMPRESSION: Bilateral nonobstructing renal stones. Electronically Signed: Guzman Ruiz MD at 9:52 EST Tel , Service support ,
== END ==
PROVIDERS: PCP Family Medicine; Referring Provider Urology; Visit Provider Urology
DX: N20.0 Calculus of kidney (principal)
CPT/HCPCS: 74018

== ENCOUNTER 2021-12-31 15:00 | Outpatient (CLI) | payer MEDICARE, SELFPAY ==
--- NOTE | 2021-12-31 15:04 | CT_ITS ---
STUDY: CT Abdomen And Pelvis WO/W Contrast Injection 12/31/2021 3:55 PM REASON FOR EXAM: Female, 71 years old. ABDOMINAL PAIN Calculus of kidney TECHNIQUE: Transaxial images were obtained without oral contrast, and with IV 100mL Isovue-300 intravenous contrast. Individualized dose optimization techniques were used for this CT. COMPARISON: 11.09.21 FINDINGS: The visualized lung bases are unremarkable. There are bilateral breast implants. Normal liver. Normal gallbladder and extrahepatic biliary system. Normal spleen. Normal pancreas. Normal bilateral adrenal glands. Non obstructive 1 to 4mm right renal parenchymal stones. Non obstructive 1 to 7mm left renal parenchymal stones. There are hypodensities in both kidneys. These are consistent for cysts. No follow up required. Normal visualized stomach. Normal small intestine. Stool throughout the colon. There is non-visualization of the appendix. There are calcifications of the abdominal aorta. This is consistent for atherosclerotic disease. There is no abdominal aortic aneurysm. Normal inferior vena cava. Subcentimeter mesenteric lymph nodes. Normal urinary bladder. Pessary device noted in the vagina. There is an umbilical hernia containing fat. There are diffuse degenerative changes of the visualized lumbar spine. Acquired degenerative spinal stenosis. Grade 1 anterolisthesis of L3 on L4. IMPRESSION: (NOT LISTED IN ORDER OF SIGNIFICANCE) There are bilateral renal calculi. There is no evidence for an obstruction. There is no hydronephrosis. Acquired degenerative spinal stenosis. Other findings as above. Electronically Signed: Tavo López MD at 16:07 EST , CT/CT Abd/Pelvis W/WO Contrast
[2021-12-31 15:20] LABS: CREATININE FINGERSTICK 1.4 mg/dL (0.55-1.02)
== END 2021-12-31 23:59 | disposition home or self-care (01) ==
LOC: CT 15:01
PROVIDERS: PCP Family Medicine; Referring Provider Urology; Visit Provider Urology
DX: N13.2 Hydronephrosis with renal and ureteral calculous obstruction (principal)
CPT/HCPCS: 74178; Q9967

== ENCOUNTER 2022-02-04 12:17 | Day surgery (SDC) | payer MEDICARE, SELFPAY ==
--- NOTE | 2022-02-04 12:39 | EKG12_ITS ---
Test Reason : PRE OP Blood Pressure : / mmHG Vent. Rate : 079 BPM Atrial Rate : 079 BPM P-R Int : 132 ms QRS Dur : 076 ms QT Int : 358 ms P-R-T Axes : 063 054 062 degrees QTc Int : 410 ms Normal sinus rhythm Normal ECG No previous ECGs available Confirmed by CHANEL MARION, RINA ([id number]), food editor PUSHPA WOLF ([id number]) on 02/07/2022 1:37:48 PM Referred By: Angela Beck Confirmed By:GUILHERME BUCHANAN MD
[2022-02-04 12:56] VITALS: BP 132/70; PULSE 74; RESP 18; TEMP 36.3; O2SAT 98; BMI 21.4
[2022-02-04] MEDS: Lactated Ringers 1,000 ML 15 ML IV (13:00)
[2022-02-04 13:03] LABS: Absolute Neutrophil Count 5.3 X10^3/uL (2.0-7.7); Basophil# 0.04 X10^3/uL; Basophil% 0.5 % (0-1); Eosinophil# 0.42 X10^3/uL; Eosinophils% 5.7 % (0-5); Hematocrit 38.6 % (37-47); Hemoglobin 12.9 g/dL (12.0-15.0); Lymphocyte % 14.9 % (19-41); Mean Corp Hgb Conc 33.4 g/dL (32-36); Mean Corpuscular Volume 104.6 fL (81-99); Mean Platelet Vol. 8.8 fl (6.2-12.0); Monocyte# 0.49 X10^3/uL; Monocyte% 6.6 % (0-10); NRBC Flagged by Analyzer 0 % (0-5); Neutrophil # 5.33 X10^3/uL (2.7-7.7); Platelet Count 234 K/mm3 (150-450); RBC Distribution Width CV 13.9 % (11.6-14.6); RBC Distribution Width SD 53.3 fl (35.1-43.9); Red Blood Count 3.69 M/mm3 (4.2-5.4); White Blood Count 7.4 K/mm3 (4.4-11.0)
[2022-02-04 13:19] LABS: Anion Gap 2 (5-15); BUN 31 mg/dL (7-18); BUN/Creat Ratio 25.2 RATIO (10-20); Calcium,Total 9.6 mg/dL (8.5-10.1); Chloride 109 mmol/L (98-107); Creatinine, Serum 1.23 mg/dL (0.55-1.02); EST Glomerular Filtration Rate 46 mL/min (>60); Est Glom Filt Rate - Afr Amer 55 mL/min (>60); Glucose 154 mg/dL (74-106); Potassium 4.5 mmol/L (3.5-5.1); Sodium Level 138 mmol/L (136-145)
[2022-02-04] MEDS: Cefazolin 2 GM in 0.9% Normal Saline 100 ML IV (14:21)
[2022-02-04 15:27] VITALS: BP 132/70; BP 137/67; PULSE 73; RESP 16; TEMP 36.2; O2SAT 98
--- NOTE | 2022-02-04 15:27 | PCM.DC ---
Discharge Instructions Diet Discharge Diet: No restrictions Activity Discharge Activity: Return to Normal Activity Dressing / Incision Call your doctor if you observe: Fever of 101 or Higher, Inability to urinate and Inability to have a bowel movement Follow Up Care Please Follow Up With: Angela Beck MD When: in the office in 2-3 weeks with KUB Test Results: Test results from this visit will be discussed in further detail at your follow-up appointment, if applicable. Discharge Plan Admission Attending Provider: Angela Beck Primary Care Provider: Praveen Lutz Discharge Orders/Prescriptions Prescriptions: New phenazopyridine [Pyridium] 200 MG tablet 200 mg PO TID PRN PRN (Reason: Bladder Spasms) 7 Days Qty: 30 RF: 0 oxycodone-acetaminophen [oxycodone-acetaminophen] 1 TABLET tablet 2 tab PO Q8H PRN PRN (Reason: Pain) 7 Days Qty: 20 RF: 0 cephalexin [cephalexin] 500 MG capsule 500 mg PO Q12 3 Days Qty: 6 RF: 0 Continued Adult One Daily Multivitamin 0.4 mg tablet 1 tab PO DAILY RF: 0 bupropion HCl [Wellbutrin XL] 300 mg tablet extended release 24 hr 300 mg PO QAM RF: 0 lisinopril 2.5 mg tablet 5 mg PO QHS RF: 0 metformin 500 mg tablet 1,000 mg PO TID RF: 0 omeprazole 40 mg capsule,delayed release(DR/EC) 40 mg PO DAILY RF: 0 fluticasone propionate 1 SPRAY spray,suspension 1 spray NASAL DAILY RF: 0 loratadine 10 MG capsule 10 mg PO DAILY RF: 0 levothyroxine [Synthroid] 175 mcg tablet 150 mcg PO DAILY RF: 0 Referrals / Follow Up: Praveen Lutz DO [Primary Care Provider] - Disposition Disposition (needs filled in before D/C Order can be placed): Home, Self Care
[2022-02-04 15:30] VITALS: BP 126/74; BP 132/70; PULSE 75; RESP 16; O2SAT 99
--- NOTE | 2022-02-04 15:30 | OP.PCM_ITS ---
Problems Associated Problem List Diagnoses (1) Left renal stone: Report of Operation Date of Procedure: 02/04/22 Pre-Operative Diagnosis: Left renal calculus Post-Operative Diagnosis: Same Surgery/Procedure Performed:: Left renal extracorporal shockwave lithotripsy, cystoscopy with insertion of left ureteral stent Surgeon: Angela Beck Type of Anesthesia: General Description of Procedure: The patient is a 72-year-old female with a 7 mm left renal calculus seen on CT scan who presents for extracorporal shockwave lithotripsy. Informed consent was obtained. The patient was taken to the operating room and placed on the operating room table. Anesthesia monitored the head, neck, airway, IV access and vital signs throughout the case. Once the patient was positioned on the operating room table the stone was clearly visualized with a lithotripter and appeared to be more like 11 mm in size. I spoke with the patient's who agreed with insertion of a left ureteral stent and cystoscopy. At this time 3000 shocks were applied to the clearly seen left renal calculus. At the conclusion of the this portion of the procedure, the patient was repositioned and placed into dorsal lithotomy position at the end of the table. She was prepped and draped in usual sterile fashion. The cystoscope was inserted through the urethra under direct visualization into the urinary bladder. The left ureteral orifice was visualized. It was intubated with a 0.035 Glidewire. A 6 [place] 26 cm JJ stent was then inserted over the wire with good positioning seen in the renal pelvis as well as the urinary bladder. There was some gross hematuria and good visualization of the entire bladder was not possible at this time. Patient's bladder was emptied, the urine at this point was light pink. She was awakened and taken to the recovery room in good condition. There were no complications during this procedure. Grafts/Implants Used: 6 x 26 JJ stent Complications None Admit VTE Documentation VTE Present on Admission: Yes VTE Mechan Device Prophylaxis: SCD's VTE Pharm Prophylaxis ordered?: No
[2022-02-04 15:45] VITALS: BP 132/70; BP 141/68; PULSE 71; RESP 16; TEMP 36.4; O2SAT 98
[2022-02-04 15:56] LABS: Bedside Glucose 124 mg/dL (74-106)
[2022-02-04] MEDS: Phenazopyridine 95 MG Tablet PO (17:11)
[2022-02-04] MEDS: Ketorolac 15 MG/ML Vial IV (17:12)
[2022-02-04 17:22] VITALS: BP 132/70; BP 148/77; PULSE 74; RESP 16; TEMP 36.1; O2SAT 97
== END 2022-02-04 23:59 | disposition home or self-care (01) ==
LOC: SDC 12:18 → AC 12:21
PROVIDERS: PCP Family Medicine; Referring Provider Urology; Visit Provider Urology
PROC: (CPT 50590; principal; 2022-02-04 13:55)
DX: N20.0 Calculus of kidney (principal); E11.36 Type 2 diabetes mellitus with diabetic cataract; E11.40 Type 2 diabetes mellitus with diabetic neuropathy, unspecified; I10 Essential (primary) hypertension; F32.A Depression, unspecified; H26.9 Unspecified cataract; K21.9 Gastro-esophageal reflux disease without esophagitis; E03.9 Hypothyroidism, unspecified; M19.90 Unspecified osteoarthritis, unspecified site; Z86.73 Personal history of transient ischemic attack (TIA), and cerebral infarction without residual deficits; Z87.440 Personal history of urinary (tract) infections; Z79.84 Long term (current) use of oral hypoglycemic drugs; Z79.899 Other long term (current) drug therapy
CPT/HCPCS: 80048; 82962; 85025; 87426; 93005; C9803; J7120; C2617; J2405

== ENCOUNTER 2022-02-25 13:28 | Outpatient (CLI) | payer MEDICARE, SELFPAY ==
--- NOTE | 2022-02-25 13:30 | RAD_ITS ---
INDICATION: KIDNEY CALC EXAMINATION/TECHNIQUE: X-RAY - XR Abdomen 1 View COMPARISON: CT abdomen pelvis 12/31/2021; abdominal x-ray 11/21/2021.. FINDINGS: Single AP supine view. Left ureteral stent proximal end overlying the expected region of the left renal pelvis and distal end in the region of the bladder. This was not present on the prior studies. Subtle globular calcific density overlying the left kidney lower pole approximately 1.1 cm corresponds to the calculus seen on the recent CT. Large amount of stool overlies the region of the left kidney and ureter. Several small calcific densities overlying the right kidney, interpolar and the lower pole. Several calcific densities in the pelvis likely phleboliths. The pessary device at was present on prior studies is not identified. Moderate amount of stool throughout the colon. No bowel obstruction. Degenerative changes in the lumbar spine and scoliosis. Lung bases were not included. IMPRESSION: Left ureteral stent in place. Approximately 1.1 cm calculus overlying the left kidney lower pole. Multiple smaller calculi right kidney. Electronically Signed: Pauline Obrien MD at 5:57 EDT , RAD/Abdomen Single View
== END 2022-02-25 23:59 | disposition home or self-care (01) ==
LOC: MTRAD 13:29
PROVIDERS: PCP Family Medicine; Referring Provider Urology; Visit Provider Urology
DX: N20.0 Calculus of kidney (principal)
CPT/HCPCS: 74018

== ENCOUNTER → 2022-06-28 | Outpatient (CLI) | payer MEDICARE, SELFPAY | END | disposition home or self-care (01) | PROVIDERS: PCP Family Medicine; Visit Provider Urology | DX: N39.0 Urinary tract infection, site not specified (principal) | CPT/HCPCS: 87077; 87086; 87088; 87186 ==

== ENCOUNTER 2022-07-04 06:01 | Day surgery (SDC) | payer MEDICARE, SELFPAY ==
[2022-07-01 08:46] LABS: Hematocrit 36.5 % (37-47); Hemoglobin 11.9 g/dL (12.0-15.0); Mean Corp Hgb Conc 32.6 g/dL (32-36); Mean Corpuscular Hgb 34.9 pg (27.0-32.0); Mean Platelet Vol. 9.4 fl (6.2-12.0); Platelet Count 221 K/mm3 (150-450); RBC Distribution Width CV 13.1 % (11.6-14.6); RBC Distribution Width SD 51.1 fl (35.1-43.9); Red Blood Count 3.41 M/mm3 (4.2-5.4)
[2022-07-01 08:59] LABS: Prothrombin Time (Protime)PT. 12.5 SECONDS (11.7-14.9)
[2022-07-01 09:00] LABS: Partial Thromboplast Time 33.2 Seconds (24.1-36.2)
[2022-07-01 09:24] LABS: AST(SGOT) 21 U/L (15-37); Alanine Aminotransfer ALT/SGPT 22 U/L (13-56); Albumin, Serum 3.5 g/dL (3.2-5.0); Alkaline Phosphatase 95 U/L (45-117); Anion Gap 3 (5-15); BUN 30 mg/dL (7-18); Bilirubin, Direct 0.11 mg/dL (0.00-0.30); Calcium,Total 9.1 mg/dL (8.5-10.1); Chloride 109 mmol/L (98-107); EST Glomerular Filtration Rate 47 mL/min (>60); Est Glom Filt Rate - Afr Amer 57 mL/min (>60); Globulin 3.9 g/dL (2.2-4.2); Glucose 118 mg/dL (74-106); Potassium 4.4 mmol/L (3.5-5.1); Protein, Total 7.4 g/dL (6.4-8.2); Sodium Level 140 mmol/L (136-145)
[2022-07-01 10:04] LABS: Hemoglobin A1c 6.6 % (3.8-5.6)
[2022-07-04] VITALS (7 sets, daily range): BP systolic 98–137; BP diastolic 56–90; PULSE 67–82; RESP 8–18; TEMP 36.3–36.6; O2SAT 95–100; BMI 21.9
[2022-07-04] MEDS: Lactated Ringers 1,000 ML 15 ML IV (06:40)
[2022-07-04 07:10] LABS: Bedside Glucose 121 mg/dL (74-106)
[2022-07-04] MEDS: Cefazolin 2 GM in 0.9% Normal Saline 100 ML IV (07:29)
--- NOTE | 2022-07-04 07:33 | DCINST_ITS ---
Discharge Instructions Diet Discharge Diet: No restrictions Activity Discharge Activity: May Shower May resume sexual activity in: 4 weeks Lifting Restrictions: No lifting over 5 pounds, no exercise, no strenuous activity Additional Activity Instructions:: No sexual intercourse, no tub bathing, no hot tubs, no swimming Dressing / Incision Call your doctor if your incision/area has: Continuous Slow Oozing, Sudden Increased Bleeding and Foul Smelling Discharge Call your doctor if you observe: Fever of 101 or Higher, Inability to urinate and Inability to have a bowel movement Follow Up Care Please Follow Up With: Angela Beck MD When: call for appt Test Results: Test results from this visit will be discussed in further detail at your follow- up appointment, if applicable. Discharge Plan Admission Attending Provider: Angela Beck Primary Care Provider: Praveen Lutz Discharge Orders/Prescriptions Prescriptions: New oxycodone-acetaminophen [Percocet] 5-325 mg tablet 1 tab PO Q8H PRN (Reason: pain) 3 Days Qty: 10 0RF Continued Adult One Daily Multivitamin 0.4 mg tablet 1 tab PO DAILY bupropion HCl [Wellbutrin XL] 300 mg tablet extended release 24 hr 300 mg PO QAM lisinopril 2.5 mg tablet 5 mg PO QHS metformin 500 mg tablet 1,000 mg PO DAILY omeprazole 40 mg capsule,delayed release(DR/EC) 40 mg PO QHS fluticasone propionate 1 SPRAY spray,suspension 1 spray NASAL DAILY loratadine 10 MG capsule 10 mg PO DAILY levothyroxine [Synthroid] 175 mcg tablet 150 mcg PO DAILY metformin 500 mg Tablet 500 mg PO QHS valacyclovir [Valtrex] 500 mg Tablet 500 mg PO BID Referrals / Follow Up: Praveen Lutz DO [Primary Care Provider] - Disposition Disposition (needs filled in before D/C Order can be placed): Home, Self Care
--- NOTE | 2022-07-04 07:38 | PCM.OPRPT ---
Report of Operation Date of Procedure: 07/04/22 Pre-Operative Diagnosis: Stress urinary incontinence Post-Operative Diagnosis: Same Surgery/Procedure Performed:: Mid urethral sling insertion, cystoscopy Surgeon: Angela Beck Type of Anesthesia: General Specimen's removed: None Estimated Blood Loss (mL): 5 cc Description of Procedure: The patient is a 72-year-old female with a history of urinary incontinence who underwent urodynamic testing and cystoscopy in the office and decided to proceed with mid urethral sling insertion for management. Informed consent was obtained. Her positive preoperative urine culture was treated. The patient was taken to the operating room and placed on the operating room table. Anesthesia monitored the head, neck, airway, IV access and vital signs throughout the case. Once anesthesia was appropriately administered, the patient was placed into dorsal lithotomy in Trendelenburg position. A 16 [place] Patel catheter was inserted to straight drain and the bladder was emptied. The mid urethra was isolated and injected submucosally with 1% lidocaine with epinephrine. A midline vertical incision approximately 1.5 cm was made. Sharp and blunt dissection was performed on either side of the urethra with care being taken to avoid entrance into the urethra. At this time using the trochars provided, the Altis mid urethral sling was inserted into the obturator complexes bilaterally. The mesh was then tensioned using the tensioning suture and was positioned against the urethra without pressure. The tensioning suture was cut and the incision was closed using running interlocking 2-0 Vicryl. The patient was then taken out of Trendelenburg and the Patel catheter was removed. A cystoscope was inserted through the urethra under direct visualization into the urinary bladder. There was no evidence of foreign body within the bladder or the urethra. The bladder mucosa was normal in appearance aside from some cystitis cystica. At this time the bladder was left with a small amount of fluid and the cystoscope was removed. The patient was awakened and taken to the recovery room in good condition. There were no complications during this procedure. Grafts/Implants Used: Altis mid urethral sling Complications None Admit VTE Documentation VTE Present on Admission: Yes VTE Mechan Device Prophylaxis: SCD's VTE Pharm Prophylaxis ordered?: No Reason prophylaxis not ordered:: Treatment Not Indicated
[2022-07-04] MEDS: Lidocaine 1% /Epi 1:100 (20ml) 20 ML Vial (07:50)
--- NOTE | 2022-07-04 08:19 | SUR.PHASEI ---
LMA removed by Bebe SHEAR OPERATOR at this time. No difficulties and pt now responsive and answering questions.
[2022-07-04 08:41] LABS: Bedside Glucose 150 mg/dL (74-106)
== END 2022-07-04 10:43 | disposition home or self-care (01) ==
LOC: SDC 06:02 → AC 06:03
PROVIDERS: Anesthesiology; PCP Family Medicine; Referring Provider Urology; Visit Provider Urology
PROC: 0TJB8ZZ Inspection of Bladder, Via Natural or Artificial Opening Endoscopic (ICD-10-PCS; CPT 57288; principal; 2022-07-04 07:20)
DX: N39.3 Stress incontinence (female) (male) (principal); M06.9 Rheumatoid arthritis, unspecified; E11.40 Type 2 diabetes mellitus with diabetic neuropathy, unspecified; N32.81 Overactive bladder; I10 Essential (primary) hypertension; Z86.73 Personal history of transient ischemic attack (TIA), and cerebral infarction without residual deficits; Z79.899 Other long term (current) drug therapy; Z79.84 Long term (current) use of oral hypoglycemic drugs; E06.3 Autoimmune thyroiditis; F32.A Depression, unspecified; K21.9 Gastro-esophageal reflux disease without esophagitis; E03.9 Hypothyroidism, unspecified; Z87.440 Personal history of urinary (tract) infections
CPT/HCPCS: 57288; 00860; 36415; 80048; 80076; 82962; 83036; 84443; 85027; 85610; 85730; J7120; J2405

== ENCOUNTER → 2022-11-01 | Outpatient (CLI) | payer MEDICARE, SELFPAY ==
[2022-11-01 15:32] LABS: Vitamin B12 922 pg/mL (211-911)
[2022-11-01 15:56] LABS: Hemoglobin A1c 6.9 % (3.8-5.6)
== END | disposition home or self-care (01) ==
LOC: BFHLAB 13:21
PROVIDERS: PCP Family Medicine; Visit Provider Family Medicine
DX: E03.9 Hypothyroidism, unspecified (principal); E11.9 Type 2 diabetes mellitus without complications; E53.8 Deficiency of other specified B group vitamins
CPT/HCPCS: 36415; 82607; 83036; 84443

== ENCOUNTER → 2023-01-02 | Outpatient (CLI) | payer MEDICARE, SELFPAY | END | disposition home or self-care (01) | LOC: LABSPEC 12:24 | PROVIDERS: PCP Family Medicine; Referring Provider Nurse Practitioner Women's Health; Visit Provider Nurse Practitioner Women's Health | DX: N89.8 Other specified noninflammatory disorders of vagina (principal) | CPT/HCPCS: 87070; 87205 ==

== ENCOUNTER 2023-04-08 11:30 | Outpatient (RCR) | payer MEDICARE, SELFPAY ==
--- NOTE | 2023-02-20 10:38 | HP.PTEVAL_ITS ---
Patient's Visit Information IMAN HICKS is a 73 year old F referred to Physical Therapy by Dr. Praveen Lutz DO with a diagnosis of spinal stenosis and dizziness and giddiness. Date of Evaluation: 02/20/23 Physical Therapist: YVETTE Morris - Visit Plan Frequency: 2x /Week Duration: 2 Months Plan: 2X/ week for 8 weeks of hip and ankle strength, slow controlled gait with increase in stride, gait with head turns, balance, vestibular inputs with HEP. HEP: standing heel and toe raises and walking with horizontal head turns - Subjective Pt is not having any pain but she has no control over her legs. Her R leg likes to trip herself by crossing midline. She had an R ankle sprain 3 years ago, no surgery. She also has neuropathy and DM and several surgeries on her feet. Her R ankle is weak. She has back pain when she bends over and that is because she has a screwed up disc due to physical labor over the years. She has no ankle pain currently but when she is walking she has some feeling of weakness. She gets a strange feeling of metal and physical weakness that lose control of her body and falls and most of the time she can not catch herself. She does not feel dizzy, no visual disturbance and no DRUMMOND. - Pain R ankle pain Pain Intensity (Out of 10): 0 - Objective Gait: Walks with decrease stride length, occ foot scuff, very stiff back and head and increase veering with gait and heels almost touching, walks at a fast pace. When asked to slow down she became less coordinated and the longer she walked it seemed that her L stride length shortened and knees started to flex and as we continued to walk she had trouble advancing her L LE at one point and had to have her R leg advance quickly to catch herself from falling and then she was able to continue walking but her L leg felt weaker and this was all going at a slow pace and this was walking approx 300 feet distance. Pt is able to heel and toe walk with slight LOB and slight bend in the knees. LE MMT: R hip flex 12.6 and L 13.8. R knee ext 21.2 and L 20.1. R knee flex 14.5 and L 7.1. FGA: 16. CATSIB: 100. Walking with vertical head turns increased dizziness and increase veering slightly and horizontal no dizziness but increase veering. SLB R 5 seconds and L 8 seconds. Sit to stand X 10.... increase weakness present and increase valgus at the knees - Balance/Special Test Scores Functional Gait Assessment Score: 16 % Disability: 46.6700 CATSIB Score (Max score 120 seconds): 100 Lower Extremity Functional Score: 58 - Goals Goal 1:: I HEP Goal Time Frame: 6-8 Weeks Goal 2:: Increase balance (FGA score at eval was 16) Goal Time Frame: 6-8 Weeks Goal 3:: Increase CATSIB (score at eval was 100) Goal Time Frame: 6-8 Weeks Goal 4:: Be able to walk 300 feet slowly with increase stride without her legs giving out on her. Goal Time Frame: 6-8 Weeks Goal 5:: Increase LE strength (MMT at eval: R hip flex 12.6 and L 13.8. R knee ext 21.2 and L 20.1. R knee flex 14.5 and L 7.1) - Rehabilitation Potential Rehabilitation Potential: Good - Anticipated Interventions Patient/Client Instruction: Educate patient on: Condition, Plan of Care For the Purpose of:: To decrease pain, To increase ROM, To improve nutrient delivery to tissue, To improve muscle performance and motor function, To improve ability to perform ADL's, To increase tolerance to activity/condition/position, To improve performance and independence with ADL's, To decrease level of supervision to perform tasks, To improve ability of physical actions for home/community/work/leisure, To improve gait and locomotor functions, To improve health of tissue, To increase flexibility/ROM, To improve endurance, To improve balance, To improve safety with gait Therapeutic Exercise to Include: Strength training, Endurance training, Balance training, Postural training, Flexibilty training, Gait and locomotor training, Neuromotor development, Active ROM, Dynamic Lumbar Stabilization For the Purpose of:: To decrease pain, To decrease swelling/inflammation, To increase ROM, To improve nutrient delivery to tissue, To improve muscle performance and motor function, To improve ability to perform ADL's, To increase tolerance to activity/condition/position, To improve performance and independence with ADL's, To decrease level of supervision to perform tasks, To improve ability of physical actions for home/community/work/leisure, To improve gait and locomotor functions, To improve health of tissue, To decrease soft tissue restriction, To increase flexibility/ROM, To improve endurance, To improve balance, To improve safety with gait Functional Training to Include: Gait training For the Purpose of:: To improve gait and locomotor functions, To improve safety with gait Thank you for the opportunity to evaluate your patient. For Medicare and Medicare HMO plans, please review the plan of care and approve it. It will need to be FAXED BACK to us at [phone] for Medicare purposes. For Medicare only, by signing this I certify the plan of care. Please let me know if there are questions or concerns regarding this plan of care. Physician Signature: Date:
--- NOTE | 2023-07-09 15:16 | HP.PT.NRP ---
Patient Information Patient Information: IMAN HICKS was seen in my office for initial evaluation on 02/20/23. The following Plan of Care was established for this patient: POC Established Initial Frequency: 2x /Week Initial Duration: 2 Months Anticipated Interventions Patient/Client Instruction: Educate patient on: Condition and Plan of Care For the Purpose of:: To decrease pain, To increase ROM, To improve nutrient delivery to tissue, To improve muscle performance and motor function, To improve ability to perform ADL's, To increase tolerance to activity/condition/position, To improve performance and independence with ADL's, To decrease level of supervision to perform tasks, To improve ability of physical actions for home/community/work/leisure, To improve gait and locomotor functions, To improve health of tissue, To increase flexibility/ROM, To improve endurance, To improve balance and To improve safety with gait Therapeutic Exercise to Include: Strength training, Endurance training, Balance training, Postural training, Flexibilty training, Gait and locomotor training, Neuromotor development, Active ROM and Dynamic Lumbar Stabilization For the Purpose of:: To decrease pain, To decrease swelling/inflammation, To increase ROM, To improve nutrient delivery to tissue, To improve muscle performance and motor function, To improve ability to perform ADL's, To increase tolerance to activity/condition/position, To improve performance and independence with ADL's, To decrease level of supervision to perform tasks, To improve ability of physical actions for home/community/work/leisure, To improve gait and locomotor functions, To improve health of tissue, To decrease soft tissue restriction, To increase flexibility/ROM, To improve endurance, To improve balance and To improve safety with gait Functional Training to Include: Gait training For the Purpose of:: To improve gait and locomotor functions and To improve safety with gait Last Seen Last Seen: This patient was last seen in our office 04/08/23. Pertinent comments regarding their Physical therapy will appear below: DC PT as pt cancelled her last appt due to back not feeling good. At this point I will be discontinuing this patient from physical therapy. I would be happy to see this patient again in the future if found appropriate by the physician. Thank you! Janel Sweet, MPT Balance/Gait/Functional tests Balance/Special Test Scores Functional Gait Assessment Score: 16 % Disability: 46.6700 CATSIB Score (Max score 120 seconds): 100 Lower Extremity Functional Score: 58
== END 2023-04-08 19:00 | disposition home or self-care (01) ==
LOC: PT 11:30
PROVIDERS: PCP Family Medicine; Referring Provider Family Medicine; Visit Provider Family Medicine
DX: R42 Dizziness and giddiness (principal); M48.061 Spinal stenosis, lumbar region without neurogenic claudication
CPT/HCPCS: 97110; 97162

== ENCOUNTER 2023-04-17 13:07 | Emergency (ER) | payer MEDICARE, SELFPAY ==
[2023-04-17 13:09] VITALS: BP 158/62; PULSE 85; RESP 15; TEMP 36.4; O2SAT 100; BMI 21.9
--- NOTE | 2023-04-17 13:27 | CT_ITS ---
HISTORY: trauma, LUQ pain. TECHNIQUE: Helically acquired images were obtained of the abdomen and pelvis after the intravenous administration of 100mL Isovue-300. A radiation dose optimization technique was used for this scan. 379 images. COMPARISON: 12/31/2021. FINDINGS: LOWER CHEST: Calcified breast implant capsules. Lung bases unremarkable. Nondepressed fracture of the left ninth rib laterally. BOWEL: Bowel including appendix nondilated. Moderate stool throughout the colon. PERITONEUM: No significant ascites. LIVER/SPLEEN/PANCREAS: Homogeneous without acute injury or other focal lesion. GALLBLADDER/BILIARY TREE: Gallbladder contracted. KIDNEYS: Mild right renal scarring. Bilateral renal cysts measuring up to 3.8 cm in the right kidney and 2.8 cm in the left kidney. Several 2 to 3 mm bilateral renal calculi without hydronephrosis. ADRENAL GLANDS: Subcentimeter fat-containing left adrenal nodule, likely myelolipoma. VESSELS: Normal caliber and contour of the abdominal aorta. Mild atherosclerosis. PELVIC ORGANS: Unremarkable. BONES: Degenerative change of the lumbar spine and pelvis. CT/Abdomen/Pelvis W IV Cont ONLY IMPRESSION: Nondisplaced fracture of the left ninth rib. No acute intra-abdominal or pelvic trauma identified. Moderate stool in the colon. Bilateral nonobstructing renal calculi. Bilateral renal cysts. Electronically Signed: Sowmya Cohen MD at 14:45 EDT ,
--- NOTE | 2023-04-17 13:29 | EDS_ITS ---
HPI HPI - Fall History of Present Illness Chief Complaint: Fall Informant: patient Narrative Narrative: Patient was on her couch last night exercising she slipped off and hit the frame of it on her left low back and side. She has been having pain in the ribs in that area, and there is an area anteriorly in her left upper quadrant that has started hurting today so she went to urgent care and then was sent here for further evaluation. She denies any dyspnea. She denies any vomiting. She had bowel movement and urination without any blood or difficulty. She states it really hurts more to move, better to sit still, and taking deep breaths is not extremely painful. She denies any other injury. She takes no anticoagulants. [facility] Medical History Alcohol use Anxiety and depression Arthritis Back problem Carpal tunnel syndrome Cataracts, bilateral Easy bruising GERD (gastroesophageal reflux disease) Goiter H/O: pneumonia HSV (herpes simplex virus) infection Hypertension Hypothyroidism Left renal stone Leg cramps Neuropathy Recurrent UTI Rheumatoid arthritis Seasonal allergies Smoker Stress incontinence TIA (transient ischemic attack) Type 2 diabetes mellitus Vision problems Home Medications bupropion HCl 300 mg 24 hr tablet, extended release (Wellbutrin XL) 300 mg PO QAM 11/20/18 [History Last Taken 07/21/20 05:15] multivitamin with minerals-folic acid 0.4 mg tablet (Adult One Daily Multivitamin) 1 tab PO DAILY 11/20/18 [History Last Taken Unknown] lisinopril 2.5 mg tablet 5 mg PO QHS 11/23/18 [History Last Taken 02/04/22] fluticasone propionate 50 mcg/actuation nasal spray,suspension 1 spray NASAL DAILY 06/22/20 [History Last Taken Unknown] loratadine 10 mg capsule 10 mg PO DAILY 06/22/20 [History Last Taken Unknown] metformin 500 mg tablet 1,000 mg PO DAILY 08/04/20 [History Last Taken Unknown] omeprazole 40 mg capsule,delayed release 40 mg PO QHS 10/13/20 [History Last Taken 02/04/22] levothyroxine 175 mcg tablet (Synthroid) 150 mcg PO DAILY 01/30/22 [History Last Taken 07/04/22] metformin 500 mg tablet 500 mg PO QHS 06/28/22 [History Last Taken Unknown] valacyclovir 500 mg tablet (Valtrex) 500 mg PO BID 06/28/22 [History Last Taken Unknown] estradiol 0.01% (0.1 mg/gram) vaginal cream See Rx Instructions vaginal .COMPLEX #42.5 grams 01/02/23 [Rx Last Taken Unknown] mometasone 0.1 % topical ointment 1 applic topical .COMPLEX #15 grams 01/30/23 [Rx Last Taken Unknown] ospemifene 60 mg tablet (Osphena) 60 mg PO DAILY #30 tabs 02/13/23 [Rx Last Taken Unknown] nitrofurantoin monohydrate/macrocrystals 100 mg capsule 100 mg PO Q12 #10 CAPSULES 04/17/23 [Rx Last Taken Unknown] Allergy/AdvReac Type Severity Reaction Status Date / Time No Known Allergies Allergy Verified 02/13/23 15:04 Family History Mother Cancer Father Diabetes Heart disease Sister Diabetes Surgical History History of carpal tunnel surgery History of colonoscopy History of foot surgery History of lithotripsy Social History housing: house number of children: 0 current occupational status: retired Smoking Status: Current every day smoker tobacco type: e-cigarettes alcohol intake: current alcohol intake frequency: holidays/special occasions only substance use type: does not use seatbelt use: always do you feel safe at home: Yes additional social history: ROS ROS ED Constitutional Constitutional ED: Denies chills or fever(s) Eyes Eyes: Denies change in vision or diplopia ENT ENT ED: Denies rhinorrhea or sore throat Cardiovascular Cardiovascular: Reports other Details: L ribcage pain, see HPE ; Denies chest pain or palpitations Respiratory/Chest Respiratory/Chest: Denies cough or dyspnea Gastrointestinal Gastrointestinal: Reports abdominal pain; Denies diarrhea, nausea or vomiting Genitourinary Genitourinary ED: Denies dysuria or hematuria Musculoskeletal Musculoskeletal: Reports back pain; Denies neck pain Integumentary Denies abscess or rash Neurologic Neurologic: Denies headache(s), paresthesias or weakness Psychiatric Psychiatric: Denies anxiety or suicidal thoughts EXAM Physical Exam Const Vital Signs: 04/17/23 13:09 Temperature 97.6 F L Temperature Source Temporal Pulse Rate 85 Respiratory Rate 15 Blood Pressure 158/62 H Blood Pressure Mean 94 Pulse Ox 100 Oxygen Delivery Method Room Air Positive well nourished and well developed General Appearance ED: well developed and NAD HEENT Reports moist mucous membranes normocephalic and atraumatic Eyes PERRL and EOMs intact bilaterally Neck full ROM and supple Resp normal respiratory effort and clear to auscultation bilaterally Effort and Inspection: able to speak in complete sentences Cardio regular rate, regular rhythm and no murmurs Cardio Narrative: Equal breath sounds bilaterally. GI non-distended GI Narrative: Very tender focal left upper quadrant tenderness, in addition to tenderness at the costal margin/ribs but no crepitance, subcutaneous emphysema, or flail/deformity. No sternal tenderness. No splinting with deep inspiration. Auscultation: normoactive bowel sounds Palpation: soft Back/Spine no CVA tenderness Back/Spine Narrative: Small contusion and tenderness in the left mid-lower posterior rib cage at one particular point without crepitance or deformity. No spinal tenderness throughout. Full range of motion without apparent difficulty. General Back: other FROM Extremity normal to inspection General Extremety ED: Negative for edema, pulses abnormal or tenderness General Extremity: Negative for edema or pulses abnormal Neuro oriented x3, CN's II-XII intact bilaterally and no sensory deficits noted Sensorium / Orientation: awake and alert Motor Exam: strength 5/5 throughout Skin no rashes or lesions noted and no wounds MDM MDM MDM Narrative Medical decision making narrative: Obtain 5 view x-ray of the left ribs including PA chest which on my interpretation are unremarkable, no pneumothorax or obvious displaced rib fracture, but given her left upper quadrant tenderness also obtained renal function, urinalysis and she was having pain in the left CVA area to rule out kidney injury, as well as a CT of the abdomen/pelvis with IV contrast. I reviewed those images as well as the radiologist interpretation which I agree with, showing basically no organ injury, just a nondisplaced left lateral ninth rib fracture. Her urine shows significant signs of infection. On further discussion, she is having some urinary frequency, she has been diagnosed with multiple urine infections in the past, she had a bladder sling done last year which helped for the majority of the time but she still occasionally has some issues. She is not having dysuria, she is clinically well and not septic, she was offered analgesics and declined she will continue using ibuprofen, she asked about rib wrap/strapping, which I advised to avoid given the increased risk of pneumonia. Follow-up advised. Urine culture sent and we will start her on Macrobid. History & Record Review Additional record(s) reviewed:: Prior labs (Few available) Lab Data Attestation: I reviewed the patient's lab results. Labs: Laboratory Results - last 24 hr 04/17/23 04/17/23 04/17/23 12:40 13:45 13:45 WBC 8.1 RBC 3.82 L Hgb 13.2 Hct 40.2 MCV 105.2 H MCH 34.6 H MCHC 32.8 RDW Std Deviation 56.6 H RDW [place]eff of [place] 14.6 Plt Count 229 MPV 9.3 Immature Gran % (Auto) 0.200 Neut % (Auto) 72.0 H Lymph % (Auto) 14.9 L [place] % (Auto) 6.2 Eos % (Auto) 6.3 H Baso % (Auto) 0.4 Absolute Neuts (auto) 5.8 Absolute Lymphs (auto) 1.21 Nucleated RBC % 0 Sodium 144 Potassium 4.3 Chloride 112 H Carbon Dioxide 27.0 Anion Gap 5 BUN 27 H Creatinine 1.22 H Estim Creat Clear Calc 39.94 Est GFR (MDRD) Af Amer 56 L Est GFR (MDRD) Non-Af 46 L BUN/Creatinine Ratio 22.1 H Glucose 155 H Calcium 9.1 Urine Color Yellow Urine Clarity Cloudy Urine pH 6.0 Ur Specific [place] 1.015 Urine Protein 30 H Urine Glucose (UA) 100 H Urine Ketones Negative Urine Occult Blood 25 H Urine Nitrite Positive H Urine Bilirubin Negative Urine Urobilinogen Normal Ur Leukocyte Esterase 500 H Urine RBC 0-5 SEEN Urine WBC 25-50 SEEN Ur Squamous Epith Cells 0-5 SEEN Urine Bacteria 4+ Urine Mucus 0 SEEN Radiography Diagnostic Testing: Clinical Impression(s) from Imaging Studies Abdomen/Pelvis CT 04/17/23 13:27 IMPRESSION: Nondisplaced fracture of the left ninth rib. No acute intra-abdominal or pelvic trauma identified. Moderate stool in the colon. Bilateral nonobstructing renal calculi. Bilateral renal cysts. Electronically Signed: Sowmya Cohen MD at 14:45 EDT , Ribs w/Chest X-Ray 04/17/23 14:25 IMPRESSION: No acute abnormality identified. Electronically Signed: Sowmya Cohen MD at 14:53 EDT , Discharge Plan Triage Chief Complaint: Fall ED Provider: Obdulio Fofana Dx/Rx/DC Orders Clinical Impression: Traumatic closed nondisplaced fracture of one rib of left side, Urinary tract infection Instructions: ED Rib Fracture, ED Cystitis Female Adult Prescriptions: New nitrofurantoin monohyd/m-cryst [nitrofurantoin monohyd/m-cryst] 100 mg capsule 100 mg PO Q12 Qty: 10 0RF No Action Adult One Daily Multivitamin 0.4 mg tablet 1 tab PO DAILY bupropion HCl [Wellbutrin XL] 300 mg tablet extended release 24 hr 300 mg PO QAM lisinopril 2.5 mg tablet 5 mg PO QHS metformin 500 mg tablet 1,000 mg PO DAILY omeprazole 40 mg capsule,delayed release(DR/EC) 40 mg PO QHS estradiol 0.01 % (0.1 mg/gram) cream See Rx Instructions vaginal .COMPLEX Qty: 42.5 2RF Rx Instructions: small amount as directed vaginal every other day X 4 weeks then twice a week; mometasone 0.1 % ointment 1 applic topical .COMPLEX Qty: 15 2RF Rx Instructions: 1 applic topical small amount as directed and rub in daily X 2 weeks then prn; Osphena 60 mg tablet 60 mg PO DAILY Qty: 30 5RF Rx Instructions: must administer with food, preferably a high-fat meal fluticasone propionate 1 SPRAY spray,suspension 1 spray NASAL DAILY loratadine 10 MG capsule 10 mg PO DAILY levothyroxine [Synthroid] 175 mcg tablet 150 mcg PO DAILY metformin 500 mg Tablet 500 mg PO QHS valacyclovir [Valtrex] 500 mg Tablet 500 mg PO BID Primary Care Provider: Praveen Lutz Referrals: Praveen Lutz, [Primary Care Provider] - (And/or your SOFTWARE DESIGN ANALYST within the next 1 to 2 weeks regarding your urine infection) Disposition Disposition: Home, Self Care
[2023-04-17 13:53] LABS: Mucous, Urine 0 SEEN /hpf (<or=2+)
[2023-04-17 13:55] LABS: Color, Urine Yellow (Yellow); Glucose, Dipstick 100 mg/dl (Normal); Ketone-Dipstick Negative (Negative); Leukocyte Esterase-Dipstick 500 /ul (Negative); Nitrite-Dipstick Positive (Negative); Occult Blood-Urine 25 /ul (Negative); Protein-Dipstick 30 mg/dl (Negative); Specific Gravity, Urine 1.015 (1.002-1.030); Urine Bilirubin Dipstick Negative (Negative); Urine Clarity Cloudy (Clear); Urine Urobilinogen Normal (Normal)
[2023-04-17 13:59] LABS: Absolute Lymphocyte Count 1.21 X10^3/uL (0.83-4.51); Absolute Neutrophil Count 5.8 X10^3/uL (2.0-7.7); Basophil# 0.03 X10^3/uL; Basophil% 0.4 % (0-1); Eosinophil# 0.51 X10^3/uL; Eosinophils% 6.3 % (0-5); Hematocrit 40.2 % (37-47); Hemoglobin 13.2 g/dL (12.0-15.0); Lymphocyte # 1.21 X10^3/ul (0.83-4.51); Lymphocyte % 14.9 % (19-41); Mean Corp Hgb Conc 32.8 g/dL (32-36); Mean Corpuscular Hgb 34.6 pg (27.0-32.0); Mean Corpuscular Volume 105.2 fL (81-99); Mean Platelet Vol. 9.3 fl (6.2-12.0); Monocyte% 6.2 % (0-10); NRBC Flagged by Analyzer 0 % (0-5); Neutrophil # 5.83 X10^3/uL (2.7-7.7); Platelet Count 229 K/mm3 (150-450); RBC Distribution Width CV 14.6 % (11.6-14.6); RBC Distribution Width SD 56.6 fl (35.1-43.9); Red Blood Count 3.82 M/mm3 (4.2-5.4); White Blood Count 8.1 K/mm3 (4.4-11.0)
[2023-04-17 14:03] LABS: Red Blood Cells-Urine 0-5 SEEN /hpf (0-5); Squamous Epithelial Cells - UA 0-5 SEEN /hpf (5-10); White Blood Cells 25-50 SEEN /hpf (0-5)
[2023-04-17 14:04] LABS: Bacteria 4+ /hpf (None Seen)
[2023-04-17 14:09] LABS: Anion Gap 5 (5-15); BUN 27 mg/dL (7-18); BUN/Creat Ratio 22.1 RATIO (10-20); Calcium,Total 9.1 mg/dL (8.5-10.1); Chloride 112 mmol/L (98-107); Creatinine, Serum 1.22 mg/dL (0.55-1.02); EST Glomerular Filtration Rate 46 mL/min (>60); Est Glom Filt Rate - Afr Amer 56 mL/min (>60); Estimated Creatinine Clearance 39.94 ml/min; Glucose 155 mg/dL (74-106); Potassium 4.3 mmol/L (3.5-5.1); Sodium Level 144 mmol/L (136-145)
--- NOTE | 2023-04-17 14:25 | RAD_ITS ---
HISTORY: fall/injury. TECHNIQUE: XR Ribs Unilateral W/ PA Chest Min 3 Views. COMPARISON: None. FINDINGS: CARDIOMEDIASTINAL BORDERS: Cardiac silhouette within normal limits in size. Mediastinal contour unremarkable. LUNGS: Radiographically clear. PLEURA: No pleural effusion or pneumothorax seen. OTHER: Old right lateral ninth and 10th rib fractures. No acute displaced left rib fracture identified. Calcified breast implants. Residual contrast in the renal collecting systems. Moderate stool in the colon. RAD/Ribs Uni Min 3V w/PA Chest IMPRESSION: No acute abnormality identified. Electronically Signed: Sowmya Cohen MD at 14:53 EDT ,
[2023-04-17] MEDS: Nitrofurantoin Macrocrystals 100 MG Capsule PO (15:41)
[2023-04-17 15:44] VITALS: BP 148/74; PULSE 81; RESP 18; O2SAT 99
== END 2023-04-17 15:45 | disposition home or self-care (01) ==
PROVIDERS: Emergency Provider Emergency Medicine; PCP Family Medicine; Visit Provider Emergency Medicine
DX: S22.32XA Fracture of one rib, left side, initial encounter for closed fracture (principal); M06.9 Rheumatoid arthritis, unspecified; E11.40 Type 2 diabetes mellitus with diabetic neuropathy, unspecified; N39.0 Urinary tract infection, site not specified; F17.210 Nicotine dependence, cigarettes, uncomplicated; I10 Essential (primary) hypertension; F32.9 Major depressive disorder, single episode, unspecified; F41.9 Anxiety disorder, unspecified; M19.90 Unspecified osteoarthritis, unspecified site; K21.9 Gastro-esophageal reflux disease without esophagitis; E03.9 Hypothyroidism, unspecified; N39.46 Mixed incontinence; Z86.73 Personal history of transient ischemic attack (TIA), and cerebral infarction without residual deficits; Z79.899 Other long term (current) drug therapy; Z79.84 Long term (current) use of oral hypoglycemic drugs; W19.XXXA Unspecified fall, initial encounter
CPT/HCPCS: 71101; 74177; 80048; 81001; 85025; 87077; 87086; 87088; 87186; 96360; 99283; Q9967; A4216

== ENCOUNTER → 2023-06-04 | Outpatient (CLI) | payer MEDICARE, SELFPAY ==
--- NOTE | 2023-06-04 15:55 | CT_ITS ---
INDICATION: RECURRENT FALLS/MEMORY IMPAIRMENT/HX OF INCONTINENCE EXAMINATION: CT BRAIN - CT Head or Brain W/O Contrast Injection TECHNIQUE: Multiple axial images were obtained of the head without intravenous contrast. A radiation dose optimization technique was used for this scan. IV Contrast dosage and agent: None. COMPARISON: None FINDINGS: BRAIN PARENCHYMA: No intra- or extra-axial hemorrhage. No evidence of acute infarct. No intracranial mass or mass effect. Mild periventricular and subcortical white matter hypodense chronic small vessel white matter ischemic change. There is preservation of the daley/white matter interface. Posterior fossa structures are unremarkable. Mild carotid atherosclerosis. CSF SPACES: Moderate global cerebral volume loss. No hydrocephalus. Basal cisterns are patent. CALVARIUM, SKULL BASE, PARANASAL SINUSES AND MASTOID AIR CELLS: No acute osseous finding. [place] sinuses are clear. Mastoid air cells are clear. ORBITS: Both globes, extraocular muscles, optic nerves and retrobulbar fat appear unremarkable. ASPECTS Score for Acute Strokes: 10 CT/Brain/Head without Contrast IMPRESSION: No CT evidence of acute intracranial hemorrhage or injury. Mild to moderate senescent changes. Electronically Signed: Osmar Strange MD at 21:30 EDT ,
== END | disposition home or self-care (01) ==
LOC: CT 15:49
PROVIDERS: PCP Family Medicine; Referring Provider Family Medicine; Visit Provider Family Medicine
DX: R26.9 Unspecified abnormalities of gait and mobility (principal); R41.3 Other amnesia; R32 Unspecified urinary incontinence
CPT/HCPCS: 70450

== ENCOUNTER → 2023-07-24 | Outpatient (CLI) | payer MEDICARE, SELFPAY | END | disposition home or self-care (01) | LOC: LABSPEC 16:50 | PROVIDERS: PCP Family Medicine; Referring Provider Advanced Practice Midwife; Visit Provider Advanced Practice Midwife | DX: N89.8 Other specified noninflammatory disorders of vagina (principal) | CPT/HCPCS: 87070; 87205 ==

== ENCOUNTER → 2023-08-28 | Outpatient (CLI) | payer MEDICARE, SELFPAY ==
[2023-08-28 12:54] LABS: Vitamin D,25 Hydroxy 49.6 ng/mL
[2023-08-28 13:33] LABS: Cholesterol 185 mg/dL (200); High Density Lipoprotein 75 mg/dL; Thyroid Stim Hormone (TSH) 3.34 uIU/mL (0.358-3.74); Triglycerides 71 mg/dL; Very Low Density Lipoprotein 14 mg/dL (5-40)
[2023-08-28 14:03] LABS: Hemoglobin A1c 6.7 % (3.8-5.6)
== END | disposition home or self-care (01) ==
PROVIDERS: PCP Family Medicine; Referring Provider Family Medicine; Visit Provider Family Medicine
DX: E11.9 Type 2 diabetes mellitus without complications (principal); E03.9 Hypothyroidism, unspecified; E55.9 Vitamin D deficiency, unspecified
CPT/HCPCS: 36415; 80061; 82306; 83036; 84443

== ENCOUNTER → 2023-09-03 | Outpatient (CLI) | payer MEDICARE, SELFPAY | END | disposition home or self-care (01) | LOC: LABSPEC 15:45 | PROVIDERS: PCP Family Medicine; Referring Provider Nurse Practitioner Women's Health; Visit Provider Nurse Practitioner Women's Health | DX: N89.8 Other specified noninflammatory disorders of vagina (principal) | CPT/HCPCS: 87070; 87205 ==

== ENCOUNTER → 2023-09-04 | Outpatient (CLI) | payer MEDICARE, SELFPAY ==
--- NOTE | 2023-09-04 14:26 | ART_ITS ---
Reason For Study: decreased pulses Procedure A bilateral lower extremity continuous wave Doppler with analog waveform analysis and ankle brachial indexes. Left Segmental Pressures Left brachial= 154mmHg. Left posterior tibial artery = 180mmHg. Left dorsalis pedis artery = 162mmHg. Left digit = 122 mmHg. The left dorsalis pedis waveforms are triphasic. The left posterior tibial artery waveforms are triphasic. Right Segmental Pressures Right brachial= 146mmHg. Right posterior tibial artery = 190mmHg. Right dorsalis pedis artery = 177mmHg. Right digit = 118 mmHg. The right dorsalis pedis waveforms are triphasic. The right posterior tibial artery waveforms are triphasic. Indices The right ankle brachial index by the dorsalis pedis is 1.15. The right ankle brachial index by the posterior tibial artery is 1.23. The right digital-brachial index is .77. The left ankle brachial index by the posterior tibial artery is 1.17. The left ankle brachial index by the dorsalis pedis is 1.05. The left digital-brachial index is .79. VL/Ankle Brachial Index Interpretation Summary Right [place]Z 1.23, normal. TBI and Doppler/PVR waveforms of the right ankle normal at rest. Left [place]Z 1.17, normal. TBI and Doppler/PVR waveforms of the left ankle normal a t rest. Ordering Physician: Praveen Lutz Performed By: Fredy Bustillos RVJihan
== END | disposition home or self-care (01) ==
LOC: CVS 14:18
PROVIDERS: PCP Family Medicine; Referring Provider Family Medicine; Visit Provider Family Medicine
DX: I73.9 Peripheral vascular disease, unspecified (principal)
CPT/HCPCS: 93922

== ENCOUNTER → 2023-10-01 | Outpatient (CLI) | payer MEDICARE, SELFPAY ==
--- NOTE | 2023-10-01 12:38 | MRI_ITS ---
STUDY: MRI LUMBAR SPINE WITHOUT CONTRAST REASON FOR EXAM: Female, 73 years old. STENOSIS, LOWER LEG SYMPTOMS TECHNIQUE: Standardized fat and water weighted pulse sequences were obtained in the sagittal and axial planes. COMPARISON: None FINDINGS: T12-L1: Normal endplates. Normal disc height, hydration and morphology. Normal bilateral facet joints. Normal central canal and bilateral lateral recesses. Normal bilateral intervertebral neural foramina. Normal lumbar lordosis. There is no substantial scoliosis. Normal conus medullaris that terminates at T12-L1 L1-2: Normal endplates. Normal disc height hydration and morphology. Normal bilateral facet joints. Normal central canal. Normal bilateral lateral recesses. Normal bilateral neuroforamina L2-3:: Normal endplates. Normal disc height, desiccation and minimal annular bulge.. Mild facet arthropathy and thickening of ligamenta flava.. Moderate narrowing of the central canal exaggerated by prominent posterior epidural fat. Normal bilateral lateral recesses. Moderate bilateral neural foraminal stenosis L3-4: Grade 1 spondylolisthesis Normal endplates. Normal disc height, desiccation mild bulging disc osteophyte complex.. Facet arthropathy and thickening of the aorta.. Moderate narrowing of central canal exaggerated by posterior epidural fat pad. Mild to moderate bilateral lateral recess stenosis and moderate neural foraminal encroachment L4-5: Narrowed disc space with degenerative endplate changes. There is desiccation of the disc and minor annular bulge with right paracentral disc protrusion. Facet arthropathy and thickening of ligamenta flava. Mild to moderate narrowing of the central canal. Moderate bilateral lateral recess stenosis. Moderate left neural foraminal stenosis and more severe narrowing on the right exaggerated by shortened pedicles. L5-S1: Normal endplates. Normal disc height, desiccation and minor annular bulge with tiny central/right paracentral disc protrusion..... Facet arthropathy and thickening of the inflated. Mild narrowing of the central canal. Normal bilateral lateral recesses. Mild bilateral neural foraminal encroachment Normal visualized sacral ala. Normal visualized paraspinous soft tissue structures. MRI/Spine Lumbar (Routine) IMPRESSION: No evidence for acute fracture or other significant bone pathology Spondylosis and multilevel spinal stenosis secondary to disc disease and bony hypertrophy most severe at L4-5 slightly worse on the right. Findings as above Electronically Signed: Pablo Colmenares MD at 16:50 EST ,
== END | disposition home or self-care (01) ==
LOC: MRI 12:27
PROVIDERS: PCP Family Medicine; Visit Provider Family Medicine
DX: M48.061 Spinal stenosis, lumbar region without neurogenic claudication (principal)
CPT/HCPCS: 72148

== ENCOUNTER → 2023-11-08 | Outpatient (CLI) | payer MEDICARE, SELFPAY ==
--- NOTE | 2023-11-08 07:25 | MRI_ITS ---
EXAM: MR THORACIC SPINE WITHOUT INTRAVENOUS CONTRAST CLINICAL INDICATION: pain TECHNIQUE: Multiplanar and multisequence MR images of the thoracic spine without intravenous contrast. Magnetic field strength 1.5 T. COMPARISON: No relevant prior studies available. FINDINGS: VERTEBRAE: Unremarkable. No fracture. Normal vertebral bodies and posterior elements. Normal alignment. There is preservation of the normal thoracic kyphosis. No scoliosis. DISCS/SPINAL CANAL/NEURAL FORAMINA: Unremarkable. Normal disc height and morphology. Normal spinal canal and neuroforamina. SPINAL CORD: Unremarkable. Normal in signal and morphology. Normal conus medullaris. SOFT TISSUES: Unremarkable. KIDNEYS AND URETERS: Simple bilateral renal cysts. No follow-up of these simple cysts is necessary. MRI/Spine Thoracic (Routine) IMPRESSION: Normal thoracic spine. Electronically Signed: Richadr Harris MD at 7:13 EST ,
--- NOTE | 2023-11-08 07:25 | MRI_ITS ---
EXAM: MR CERVICAL SPINE WITHOUT INTRAVENOUS CONTRAST CLINICAL INDICATION: pain TECHNIQUE: Multiplanar and multisequence MR images of the cervical spine without intravenous contrast were performed. Magnetic field strength 1.5 T. COMPARISON: Cervical spine x-ray 10/20/2023. FINDINGS: VERTEBRAE: Intact. No destructive lesions. SPINAL CORD: Unremarkable in signal and morphology. Mild compression of the cord at C3-C4. SOFT TISSUES: Unremarkable. No prevertebral soft tissue swelling. LYMPH NODES: Unremarkable. There is no cervical adenopathy. DISCS/SPINAL CANAL/NEURAL FORAMINA: C2-C3: Unremarkable. Normal disc height and morphology. Normal spinal canal. Normal neuroforamina. C3-C4: Mild disc space narrowing and mild generalized disc bulge. Ligamentum flavum thickening bilaterally. The canal measures 7 mm. Mild impingement upon the cord. Normal neuroforamina. C4-C5: Approximately 3 mm of anterior spondylolisthesis of C4 on C5. Moderate left neural foraminal narrowing due to uncovertebral joint osteophytes. No spinal stenosis. C5-C6: Mild disc space narrowing. No significant disc bulge. Moderate bilateral neural foraminal narrowing due to uncovertebral joint osteophytes. Normal spinal canal. C6-C7: Disc space narrowing. No disc bulge. No spinal canal or foraminal stenosis. C7-T1: Unremarkable. Normal disc height and morphology. Normal spinal canal. Normal neuroforamina. MRI/Spine Cervical (Routine) IMPRESSION: 1. C3-C4 mild spondylosis with bilateral ligamentum flavum thickening. The canal is narrowed to approximately 7 mm consistent with moderate spinal stenosis with mild compression of the cord. No abnormal cord signal. 2. C4-C5 moderate spondylosis with approximately 3 mm of anterior spondylolisthesis of C4 on C5. Moderate left neural foraminal narrowing due to uncovertebral joint osteophytes. 3. C5-C6 moderate neural foraminal narrowing bilaterally due to uncovertebral joint osteophytes. Mild spondylosis. No spinal stenosis. 4. C6-C7 mild spondylosis. No spinal canal or foraminal stenosis. Electronically Signed: Richard Harris MD at 7:12 EST ,
== END | disposition home or self-care (01) ==
PROVIDERS: PCP Family Medicine; Referring Provider Orthopaedic Surgery; Visit Provider Orthopaedic Surgery
DX: G12.29 Other motor neuron disease (principal)
CPT/HCPCS: 72141; 72146

== ENCOUNTER → 2023-12-24 | Outpatient (CLI) | payer MEDICARE, SELFPAY ==
--- OUTSIDE RECORDS SUMMARY | 2023-12-24 15:16 | XMS RPT_ITS | CCD ---
Author Name Unknown Address [address] [facility] [address] [place] [id number] Organization [facility] Care Team Providers Care Dimensional Integration Engineer Name Role Phone Tessa Rice LPN Unavailable Unavailable Dwayne FRANKLIN, Tessa Silva Unavailable Unavailable Dwayne FRANKLIN, Tessa Silva Unavailable Unavailable Summer Lutz DO Primary Care Provider SUMMER LUTZ Primary Care Unavailable LEXI FELDMAN Attending Unavailable SUMMER LUTZ Primary Care Unavailable ANALISA HOLDEN Referring Unavailable SUMMER LUTZ Primary Care Unavailable ANALISA HOLDEN Referring Unavailable SUMMER LUTZ Primary Care Unavailable ANALISA HOLDEN Attending Unavailable SUMMER LUTZ Referring Unavailable SUMMER LUTZ Primary Care Unavailable Allergies Allergy Classification Reported Allergen(s) Allergy Type Date of Onset Reaction(s) Facility (5 sources) Seasonal allergy; Translations: [SEASONAL ALLERGIES] Allergy to substance 8 Other: See Comments [facility] Work Phone: Medications Current Medications Medication Drug Class(es) Dates Sig (Normalized) Sig (Original) aspirin 81 mg delayed release oral tablet (1 source) Platelet Aggregation Inhibitor, Nonsteroidal Anti-inflammatory Drug Start: 08-20-2017 End: 03-27-2023 take 1 tablet by mouth once daily aspirin, enteric coated (ADULT LOW DOSE ASPIRIN) 81 mg EC tablet Take 1 tablet by mouth once daily. 0 08/20/2017 03/27/2023 Discontinued Completed/Discontinued Medications Medication Drug Class(es) Dates Sig (Normalized) Sig (Original) 24 hr buPROPion hydrochloride 300 mg extended release oral tablet (7 sources) Aminoketone Start: 08-17-2018 buPROPion XL (WELLBUTRIN XL) 300 mg 24 hr tablet TAKE 1 TABLET EVERY DAY 90 tablet 1 08/17/2018 Active Problems Active Problems Problem Classification Problem Date Documented Date Episodic/Chronic Anxiety disorders (4 sources) Mixed anxiety and depressive disorder; Translations: [Anxiety disorder, unspecified] Onset: 08-20-2017 08-20-2017 Chronic Diabetes mellitus with complications (4 sources) Neuropathy due to type 2 diabetes mellitus; Translations: [Type 2 diabetes mellitus with diabetic neuropathy, unspecified] Onset: 08-20-2017 08-20-2017 Chronic Diabetes mellitus without complication (4 sources) Type 2 diabetes mellitus without complication; Translations: [Type 2 diabetes mellitus without complications] Onset: 05-08-2017 02-18-2018 Chronic Esophageal disorders (4 sources) Gastroesophageal reflux disease without esophagitis; Translations: [Gastro-esophageal reflux disease without esophagitis] Onset: 08-20-2017 08-20-2017 Chronic Essential hypertension (4 sources) Essential hypertension; Translations: [Essential (primary) hypertension] Onset: 03-04-2018 03-04-2018 Chronic Nutritional deficiencies (4 sources) Vitamin D deficiency; Translations: [Vitamin D deficiency, unspecified] Onset: 08-21-2017 08-21-2017 Chronic Occlusion or stenosis of precerebral arteries (4 sources) Bilateral stenosis of carotid arteries; Translations: [Occlusion and stenosis of bilateral carotid arteries] Onset: 09-10-2017 09-10-2017 Chronic Other female genital disorders (1 source) Vaginal irritation; Translations: [Other specified noninflammatory disorders of vagina] Episodic Other nervous system disorders (2 sources) Abnormal gait; Translations: [Unsteadiness on feet] 07-15-2023 Episodic Other nervous system disorders (1 source) Unsteadiness on feet; Translations: [Gait instability] Onset: 07-17-2023 Episodic Other upper respiratory disease (4 sources) Seasonal allergic rhinitis; Translations: [Other seasonal allergic rhinitis] Onset: 08-21-2017 08-21-2017 Chronic Substance-related disorders (4 sources) Smoker; Translations: [Nicotine dependence, unspecified, uncomplicated] Onset: 08-20-2017 08-20-2017 Chronic Thyroid disorders (6 sources) Hypothyroidism; Translations: [Acquired hypothyroidism] Onset: 05-08-2017 07-24-2017 Chronic Unclassified (1 source) No current problems or disability 07-23-2017 Viral infection (4 sources) Herpes simplex; Translations: [Herpesviral infection of urogenital system, unspecified] Onset: 08-20-2017 08-20-2017 Chronic Past or Other Problems Problem Classification Problem Date Documented Da te Episodic/Chronic Deficiency and other anemia (4 sources) Iron deficiency anemia; Translations: [Iron deficiency anemia, unspecified] Onset: 08-20-2017 08-20-2017 Episodic Other aftercare (4 sources) Drug therapy finding; Translations: [Other termite exterminator (current) drug therapy] Onset: 02-18-2018 02-18-2018 Episodic Other bone disease and musculoskeletal deformities (4 sources) Senile osteopenia; Translations: [Other specified disorders of bone density and structure, unspecified site] Onset: 08-21-2017 08-21-2017 Episodic Other circulatory disease (4 sources) History of transient ischemic attack; Translations: [Personal history of transient ischemic attack (TIA), and cerebral infarction without residual deficits] Onset: 08-20-2017 08-20-2017 Episodic Results Test Name Value Interpretation Reference Range Facil ity Vital Signs Date Time Vital Sign Value Performing Clinician Facility 07-15-2023 12:37-0400 Diastolic blood pressure 76 mm[Hg] Analisa Holden MD Work Phone: [facility] 07-15-2023 12:37-0400 Heart rate 88 /min Analisa Holden MD Work Phone: [facility] 07-15-2023 12:37-0400 Systolic blood pressure 147 mm[Hg] Analisa Holden MD Work Phone: [facility] 03-27-2023 08:21-0400 Body weight 62.6 kg Lexi [place] DRESSMAKER GARMENT FITTER.JOB TRAINER Work Phone: [facility] 03-27-2023 08:21-0400 Diastolic blood pressure 74 mm[Hg] Lexi [place] DRESSMAKER GARMENT FITTER.JOB TRAINER Work Phone: [facility] 03-27-2023 08:21-0400 Systolic blood pressure 130 mm[Hg] Lexi Francia DRESSMAKER GARMENT FITTER.JOB TRAINER Work Phone: [facility] 07-24-2017 07:47-0400 BMI (Body Mass Index) 20.92 kg/m2 Tessa [facility] Work Phone: 07-24-2017 07:47-0400 Body Temperature 97.9 [degF] Tessa Rice LPN [facility] Work Phone: 07-24-2017 07:47-0400 BP Diastolic 88 mm[Hg] Tessa Rice LPN [facility] Work Phone: 07-24-2017 07:47-0400 BP Systolic 142 mm[Hg] Tessa Rice LPN [facility] Work Phone: 07-24-2017 07:47-0400 Height 170.18 cm Tessa Rice LPN [facility] Work Phone: 07-24-2017 07:47-0400 Pulse (Heart Rate) 78 /min Tessa [facility] Work Phone: 07-24-2017 07:47-0400 Respiratory Rate 18 /min Tessa [facility] Work Phone: 07-24-2017 07:47-0400 Weight 60.6 kg Tessa Rice LPN [facility] Work Phone: Encounters Encounter Date Encounter Type Care Provider Facility Start: 07-17-2023 End: 07-18-2023 ambulatory [facility] Facility:[facility] Start: 07-16-2023 End: 07-17-2023 ambulatory [facility] Facility:[facility] Start: 07-16-2023 End: 07-16-2023 ambulatory Emg 850) Neurology Procedures Date Procedure Procedure Detail Performing Clinician Start: 07-16-2023 Nerve conduction antoine dies 5-6 studies Analias Holden MD Work Phone: Start: 07-18-2017 Mammography Lexi [facility] DRESSMAKER GARMENT FITTER.JOB TRAINER Work Phone: Start: 04-25-2008 Colonoscopy Lexi [facility] DRESSMAKER GARMENT FITTER.JOB TRAINER Work Phone: Plan of Treatment Date Care Activity Detail Author Start: 07-25-2023 [facility] Start: 07-15-2023 End: 09-14-2023 25-hydroxyvitamin D3 [Mass/volume] in Serum or Plasma VITAMIN D 25 HYDROXY Lab Routine Gait instability Expected: 07/15/2023, Expires: 09/14/2023 [facility] Work Phone: Immunizations Immunization Date Immunization Notes Care Provider Juanita desir 08-20-2017 pneumococcal conjuga te vaccine, 13 valent Lexi Francia DRESSMAKER GARMENT FITTER.JOB TRAINER Work Phone: [facility] 10-04-2015 influenza, high dose seasonal, preservative-free Lexi Francia DRESSMAKER GARMENT FITTER.JOB TRAINER Work Phone: [facility] 10-04-2015 pneumococcal conjuga te vaccine, 13 valent Lexi Francia DRESSMAKER GARMENT FITTER.JOB TRAINER Work Phone: [facility] 05-20-2015 zoster vaccine, live Lexi M etcal[place] DRESSMAKER GARMENT FITTER.JOB TRAINER Work Phone: [facility] Work Phone: 10-28-2012 influenza, seasonal, injectable Lexi Francia DRESSMAKER GARMENT FITTER.JOB TRAINER Work Phone: [facility] 10-28-2011 influenza, seasonal, injectable Lexi Francia DRESSMAKER GARMENT FITTER.JOB TRAINER Work Phone: [facility] 11-24-2008 tetanus toxoid, redu sajan diphtheria toxoid, and acellular pertussis vaccine, adsorbed Lexi Francia DRESSMAKER GARMENT FITTER.JOB TRAINER Work Phone: [facility] 11-24-2003 tetanus toxoid, redu sajan diphtheria toxoid, and acellular pertussis vaccine, adsorbed Lexi Francia DRESSMAKER GARMENT FITTER.JOB TRAINER Work Phone: [facility] Payers Date Payer Category Payer Medicare HUMANA MEDICARE HU[employer]NA MEDICARE PPO [id number] 2019-Present [id number] [place] [id number] PPO [id number] 2019 Medicare [id number] Social History Date Type Detail Facility Start: 03-27-2023 Tobacco smoking stat us NHIS Ex-smoker [facility] End: 09-24-2022 History of tobacco use Current smoker [facility] End: 09-24-2022 History of tobacco use Cigarette Smoker [facility] Start: 03-27-2023 End: 07-15-2023 Cigarettes smoked current (pack per day) - Reported 1 [facility] Start: 03-27-2023 Tobacco use and exposure Smoke less tobacco non-user [facility] Start: 03-27-2023 End: 04-17-2023 Alcohol intake Current drinker of alcohol (finding) [facility] Start: 03-27-2023 Alcohol Comment 1-2 per day [facility] Start: 1950 Sex Assigned At Not on file [facility] Start: 04-17-2023 End: 07-15-2023 Tobacco use panel [facility] PHQ2 Score 0 [facility] Start: 1950 Sex Assigned At Female [facility] Start: 06-15-2023 Gender identity Identifies as female gender (finding) [facility] Start: 06-15-2023 Sexual orientation Heterosexual (fin ding) [facility] Clinical Notes 02-13-2019 to 07-16-2023 Feliberto Barone MD - 07/16/2023 2:10 PM MIHAELATUiAnalisa MD - 07/15/2023 1:00 PM EDTTelephone Encounter - Padmini Emmanuel RN - 03/28/2023 12:15 PM EDT Note Date & Type Note Facility 07-16-2023 Note HNO ID: [id number] Author: Feliberto Barone MD Service: ? Author Type: Physician Type: Progress Notes Filed: 07/16/2023 2:49 PM Note Text: UNIVERSAL PROTOCOL / SAFETY CHECKLIST Procedure to be Performed: EMG Sign In: A Moment of CARE was completed. Personnel directly involved with the procedure wore the appropriate PPE (Personal Protective Equipment). Patient/Surrogate Stated/Verified: PATIENT VERIFIED(optional for EMERGENT procedures): Patient name, Date of , Relevant allergies, and The intended procedure Time Out Communication: Intended patient and procedure match the source documents. Correct side/site marked and visible. Sign Out: SIGN OUT (optional for EMERGENT procedures): Post-procedure follow-up management communicated and Plan of Care Visit completed when applicable. ADRIANA AlvarezT Feliberto Barone MD [facility] 07-16-2023 History of Presen t illness Narrative UNIVERSAL PROTOCOL / SAFETY CHECKLIST Procedure to be Performed: EMG Sign In: A Moment of CARE was completed. Personnel directly involved with the procedure wore the appropriate PPE (Personal Protective Equipment). Patient/Surrogate Stated/Verified: PATIENT VERIFIED(optional for EMERGENT procedures): Patient name, Date of , Relevant allergies, and The intended procedure Time Out Communication: Intended patient and procedure match the source documents. Correct side/site marked and visible. Sign Out: SIGN OUT (optional for EMERGENT procedures): Post-procedure follow-up management communicated and Plan of Care Visit completed when applicable. MARLEE Alvarez MD documented in this encounter [facility] 07-15-2023 Note HNO ID: [id number] Author: Analisa Holden MD Service: ? Author Type: Physician Type: Progress Notes Filed: 07/15/2023 1:46 PM Note Text: Neurology Clinic - July 15, 2023 Reason for visit: Ms. Moffett is referred by Summer Lutz for my opinion regarding abnormal gait, possible PN. My final recommendation will be communicated back to the requesting physician by way of shared medical record or letter. HISTORY OF PRESENT ILLNESS: Patient is a 73 year old, right-handed, White, female with history of anxiety, depression, diabetes type 2, HTN, reflux, HSV, hypothyroidism, smoker, TIA. History gathered from patient, boyfriend and electronic medical records. 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 Last foot surgery was in 2009. She mentions to started having feet numbness after foot surgeries. At baseline, she may have numbness from ankles down. She mentions to have R ankle trauma(2019)- fell mowing on a slope; she saw orthopedics recommended to do 2 surgeries but she refused as she would only do one but none got performed. In the past 2 years, she noticed constant numbness from mid calves down. No sharp/burning pain, no night awakenings. At around the same, she started noticing balance issues and started falling. She feels RLE is weaker and puts her weight to the left but loses balance and falls to the L side. Symptoms are worse in the past 4 months, she could not stand for a prolonged time - has heaviness in the legs, R>L and tends to fall in the L. She had fallen 6-7x in the past 4 months, 3 of which when she hurt herself. Last falls was 2.5 months ago, she was going down the basement with RLE felt weak and lost her balance, no head trauma/LOC but landed on the back. She started using a cane 3-4 weeks ago when outdoors. She has good and bad days - usually can walk w/o a cane in the house but not today. She has h/o 'R sided sciatica' pain, depending on activity. She had R CTS release 2 years ago; currently no hand symptoms. She mentions to be 'weak' all over - not independent as she used to be. His PCP did CT head(may 2023) for possible NPH. CT brain was negative hence now looking into neuropathy by watching her walk. She was supposed to go to get EMG locally but went to wrong location. She is diabetic x 35 years; controlled with metformin. Last HBA1C was 6.8(2017); TSH was 9.2(2016) Patient does not have a dietary preference, (+) EtOH - glass of wine every other night x 1-2 years(with smoking); (+) supplements - MVI. No known exposure to heavy metals or toxins, no chemotherapeutic agents. PAST MEDICAL HISTORY Diagnosis Date Anxiety and depression 08/20/2017 Controlled type 2 diabetes mellitus without complication, without long-term current use of insulin ([facility]) 05/08/2017 Diabetic eye exam ([facility]) 07/07/2017 Last done: 06/26/2017 DM (diabetes mellitus) ([facility]) Essential hypertension 03/04/2018 GERD without esophagitis 08/20/2017 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 Hypothyroid Hypothyroidism 05/08/2017 Smoker 08/20/2017 Started at age 16 up to 1 PPD TIA (transient ischemic attack) PAST SURGICAL HISTORY Procedure Laterality Date CATARACT EXT; EYEONICS IOL SYS 11/24/2007 both COLONOSCOPY 05/08/2008 repeat 10 yrs CORRECT BUNION,SIMPLE Bilateral 1997 left HAMMERTOE REVISION, ONE TOE 11/24/1975 right MENISCAL REPAIR SYS,CD,[id number] Right knee PROSTHESIS, BREAST, IMP Bilateral 11/24/1975 TONSILLECTOMY HX 11/24/1954 MEDICATIONS: Current Outpatient Medications Medication Sig Dispense Refill fluconazole (DIFLUCAN) 150 mg tablet Take 1 tablet today, then a 2nd tablet in 72 hours, and 3rd tablet in another 72 hours. 3 tablet 0 metFORMIN (GLUCOPHAGE) 500 mg tablet Take 1 tablet by mouth three times daily. 180 tablet 1 buPROPion XL (WELLBUTRIN XL) 300 mg 24 hr tablet TAKE 1 TABLET EVERY DAY 90 tablet 1 Omeprazole 40 mg capsule take 1 capsule by mouth once daily 90 capsule 1 valACYclovir (VALTREX) 500 mg tablet TAKE 1 TABLET EVERY DAY 7 tablet 3 lisinopril (ZESTRIL, PRINIVIL) 5 mg tablet Take 1 tablet by mouth once daily. 90 tablet 1 SYNTHROID 175 mcg tablet Take 1 tablet by mouth every Friday and Friday. (Patient taking differently: Take 175 mcg by mouth once daily.) 24 tablet 1 Cholecalciferol, Vitamin D3, 25 mcg (1,000 unit) cap Take 1,000 Units by mouth once daily. No current facility-administered medications for this visit. ALLERGY: ALLERGIES Allergen Reactions Seasonal Allergies Other: See Comments pollen causes sneezing FAMILY HISTORY Problem Relation Age of Onset Cancer Mother Malignant neoplastic disease Heart Father Diabetes Father Diabetes Sister Diabetes Brother Social History Tobacco Use Smoking status: Former Packs/day: 1.00 Years: 20.00 Additional pack years: 0.00 Total pack years: 20.00 Types: Cigarettes (more content not included)... [facility] 07-15-2023 History of Presen t illness Narrative Neurology Clinic - July 15, 2023 Reason for visit: Ms. Moffett is referred by Summer Lutz for my opinion regarding abnormal gait, possible PN. My final recommendation will be communicated back to the requesting physician by way of shared medical record or letter. HISTORY OF PRESENT ILLNESS: Patient is a 73 year old, right-handed, White, female with history of anxiety, depression, diabetes type 2, HTN, reflux, HSV, hypothyroidism, smoker, TIA. History gathered from patient, boyfriend and electronic medical records. 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 Last foot surgery was in 2009. She mentions to started having feet numbness after foot surgeries. At baseline, she may have numbness from ankles down. She mentions to have R ankle trauma(2019)- fell mowing on a slope; she saw orthopedics recommended to do 2 surgeries but she refused as she would only do one but none got performed. In the past 2 years, she noticed constant numbness from mid calves down. No sharp/burning pain, no night awakenings. At around the same, she started noticing balance issues and started falling. She feels RLE is weaker and puts her weight to the left but loses balance and falls to the L side. Symptoms are worse in the past 4 months, she could not stand for a prolonged time - has heaviness in the legs, R>L and tends to fall in the L. She had fallen 6-7x in the past 4 months, 3 of which when she hurt herself. Last falls was 2.5 months ago, she was going down the basement with RLE felt weak and lost her balance, no head trauma/LOC but landed on the back. She started using a cane 3-4 weeks ago when outdoors. She has good and bad days - usually can walk w/o a cane in the house but not today. She has h/o 'R sided sciatica' pain, depending on activity. She had R CTS release 2 years ago; currently no hand symptoms. She mentions to be 'weak' all over - not independent as she used to be. His PCP did CT head(may 2023) for possible NPH. CT brain was negative hence now looking into neuropathy by watching her walk. She was supposed to go to get EMG locally but went to wrong location. She is diabetic x 35 years; controlled with metformin. Last HBA1C was 6.8(2017); TSH was 9.2(2016) Patient does not have a dietary preference, (+) EtOH - glass of wine every other night x 1-2 years(with smoking); (+) supplements - MVI. No known exposure to heavy metals or toxins, no chemotherapeutic agents. PAST MEDICAL HISTORY Diagnosis Date Anxiety and depression 08/20/2017 Controlled type 2 diabetes mellitus without complication, without long-term current use of insulin ([facility]) 05/08/2017 Diabetic eye exam ([facility]) 07/07/2017 Last done: 06/26/2017 DM (diabetes mellitus) ([facility]) Essential hypertension 03/04/2018 GERD without esophagitis 08/20/2017 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 Hypothyroid Hypothyroidism 05/08/2017 Smoker 08/20/2017 Started at age 16 up to 1 PPD TIA (transient ischemic attack) PAST SURGICAL HISTORY Procedure Laterality Date CATARACT EXT; EYEONICS IOL SYS 11/24/2007 both COLONOSCOPY 05/08/2008 repeat 10 yrs CORRECT BUNION,SIMPLE Bilateral 1997 left HAMMERTOE REVISION, ONE TOE 11/24/1975 right MENISCAL REPAIR SYS,[id number] Right knee PROSTHESIS, BREAST, IMP Bilateral 11/24/1975 TONSILLECTOMY HX 11/24/1954 MEDICATIONS: Current Outpatient Medications Medication Sig Dispense Refill fluconazole (DIFLUCAN) 150 mg tablet Take 1 tablet today, then a 2nd tablet in 72 hours, and 3rd tablet in another 72 hours. 3 tablet 0 metFORMIN (GLUCOPHAGE) 500 mg tablet Take 1 tablet by mouth three times daily. 180 tablet 1 buPROPion XL (WELLBUTRIN XL) 300 mg 24 hr tablet TAKE 1 TABLET EVERY DAY 90 tablet 1 Omeprazole 40 mg capsule take 1 capsule by mouth once daily 90 capsule 1 valACYclovir (VALTREX) 500 mg tablet TAKE 1 TABLET EVERY DAY 7 tablet 3 lisinopril (ZESTRIL, PRINIVIL) 5 mg tablet Take 1 tablet by mouth once daily. 90 tablet 1 SYNTHROID 175 mcg tablet Take 1 tablet by mouth every Friday and Friday. (Patient taking differently: Take 175 mcg by mouth once daily.) 24 tablet 1 Cholecalciferol, Vitamin D3, 25 mcg (1,000 unit) cap Take 1,000 Units by mouth once daily. No current facility-administered medications for this visit. ALLERGY: ALLERGIES Allergen Reactions Seasonal Allergies Other: See Comments pollen causes sneezing FAMILY HISTORY Problem Relation Age of Onset Cancer Mother Malignant neoplastic disease Heart Father Diabetes Father Diabetes Sister Diabetes Brother Social History Tobacco Use Smoking status: Former Packs/day: 1.00 Years: 20.00 Additional pack years: 0.00 Total pack years: 20.00 Types: Cigarettes Quit date: 09/24/2022 Years since quittin.8 Smokeless tobacco: Never Vaping Use Vaping Use: current everyday user Substance Use Topics Alcohol use: Yes Alcohol/week: 1.0 - 2.0 standard drink of alcohol Types: 1 - 2 Glasses of Wine (5oz) per week Comment: 1-2 per day Drug use: No DATA: Radiology: Laboratory: Component Latest Ref Rng & Units 06/25/2017 07/22/2017 08/20/2017 02/13/2018 02/13/2019 WBC 3.70 - 11.00 k/uL 12.44 (H) RBC 3.90 - 5.20 m/uL 3.63 (L) Hemoglobin 11.5 - 15.5 g/dL 10.3 (L) Hematocrit 36.0 - 46.0 % 33.0 (L) MCV 80.0 - 100.0 fL 90.9 MCH 26.0 - 34.0 pG 28.4 MCHC 30.5 - 36.0 g/dL 31.2 RDW-CV 11.5 - 15.0 % 15.4 (H) Platelet Count 150 - 400 k/uL 228 MPV 9.0 - 12.7 fL 9.0 Neut% % 80.6 Abs Neut (ANC) 1.45 - 7.50 k/uL 10.02 (H) Lymph% % 8.9 Abs Lymph 1.00 - 4.00 k/uL 1.11 Hays% % 7.3 Abs Hays <0.87 k/uL 0.91 (H) Eosin% % 2.9 Abs Eosin <0.46 k/uL 0.36 Baso% % 0.3 Abs Baso <0.11 k/uL 0.04 Nucleated Reds 0 /100 WBC 0.0 Absolute nRBC <0.01 k/uL <0.01 Diff Type Auto Diff Protein, Total 6.3 - 8.0 g/dL 7.0 6.8 Albumin 3.9 - 4.9 g/dL 4.0 3.9 Calcium 8.5 - 10.2 mg/dL 9.5 8.7 Bilirubin, Total 0.2 - 1.3 mg/dL 0.4 0.2 Alkaline Phosphatase 34 - 123 U/L 97 94 AST 13 - 35 U/L 29 16 Glucose 74 - 99 mg/dL 104 (H) 159 (H) BUN 7 - 21 mg/dL 20 22 (H) Creatinine 0.58 - 0.96 mg/dL 0.72 0.72 Sodium 136 - 144 mmol/L 143 141 Potassium 3.7 - 5.1 mmol/L 4.2 3.9 Chloride 97 - 105 mmol/L 103 105 CO2 22 - 30 mmol/L 26 23 Anion Gap 9 - 18 mmol/L 14 13 ALT 7 - 38 U/L 24 15 eGFR- >60 >60 eGFR-All Other Races . >60 >60 Cholesterol, Total <200 mg/dL 182 Triglyceride <150 mg/dL 52 HDL Cholesterol >39 mg/dL 73 LDL Cholesterol <100 mg/dL 99 Non HDL Cholesterol <130 mg/dL 109 Fasting Time hrs 1 VLDL Cholesterol <30 mg/dL 10 TC:HDL Ratio <5.10 2.49 LDL:HDL Ratio <2.54 1.36 Iron 41 - 186 ug/dL 110 TIBC 232 - 386 ug/dL 353 Transferrin Saturation 15 - 57 % 31 Hemoglobin A1C 4.3 - 5.6 % 6.6 (H) 6.8 (H) Estimated Average Glucose mg/dL 143 148 TSH 0.400 - 5.500 uU/mL 9.170 (H) 0.636 Vitamin D 25 Hydroxy 31.0 - 80.0 ng/mL 42.4 Glucose, Point of Care 74 - 99 mg/dL 137 (A) Other: REVIEW OF SYSTEMS: per HPI General: no wt. loss/gain, change in appetite, fever, malaise HEENT: no headache, problems with vision, (+)hearing Cardiac: no chest pain, palpitation Respiratory: no shortness of breath, cough, cold GI: no change in bowel habits, abdominal pain : no incontinence, frequency, urgency Musculoskeletal: no joint/muscle pain, no swelling Skin: no rash Endocrine: (+) thyroid, (+)diabetes Immunologic: no known immunologic disorders Neurologic/Psychiatric: no other known neurologic or psychiatric problems PHYSICAL EXAM: BP 147/76 Pulse 88 HEENT: atraumatic, normocephalic Neck: supple Extremities: good pulses NEUROLOGICAL EXAM: MSE: Awake, alert, oriented x 3, language intact, attention and concentration normal CN: EOMI, no nystagmus, V1-V3 intact, no facial weakness, normal hearing to communication, good elevation of soft palate, tongue midline with good strength, no dysarthria Motor: Gait: (+) antalgic/unstable gait - could not put weight so much in the RLE. able to tandem, toe and heel walk with some difficulty(holding on to the sink) No pronator drift, rapid finger movements are symmetrical Normal tone and bulk No adventitious movements Power: Right Left Neck flexion 5/5 Neck extension 5/5 Trapezius / 5/5 Deltoids / 5/5 Biceps / 5/5 Triceps / 5/5 Wrist Ext 5/5 5/5 Wrist Flex / 5/5 Finger Ext / 5/5 FDI / 5/ ADM / 5/5 APB 03/28 5/5 FDP 2,3 / 5/5 FDP 4,5 5/ 5/5 FPL / 5/5 Hip Flexors 03/28 5/5 Knee Extensors 03/28 5/5 Knee Flexors 03/28 5/ Ankle DF 03/28 5/5 Ankle PF 03/28 5/ Inversion 03/28 5/5 Eversion 03/28 5/5 Toe Flexion 03/28 5/5 Toe Extension 02/26 * 5* *- has scars on both big toes Coordination: intact finger to nose and heel to cobb Reflexes: B T Br K A Plantars R 2+ 2+ 2+ 2+ 1+ down L 2+ 2+ 2+ 2+ 1+ down Sensory: intact to light touch, pinprick, position and vibration Romberg's negative ASSESSMENT AND PLAN: Miss Moffett is a 73 y/o female with h/o anxiety, depression, diabetes type 2, HTN, reflux, HSV, hypothyroidism, smoker, TIA; consulted for gait instability/neuropathy. Examination reveals mild weakness in toe extensors with reduced reflexes at the ankles and intact sensation to all modalities. Suspect she may have lumbar radiculopathy with possibly mild neuropathy. Discussed about neuropathy, its common etiologies, prognosis and treatment options. Blood work - B12/MMA, MPA, urine monoclonal antibody, vit D EMG with PN protocol Hold off on symptomatic treatment - heavy, balance are predominant symptoms Has good blood sugar control, avoid fluctuations Up to date with ophthalmology but not podiatry PT - wants to go to [facility] Follow-up in 3 months or earlier if necessary. I spent a total of 60 minutes on the date of the service which included preparing to see the patient, [id number] patient care, completing clinical documentation, obtaining and/or reviewing separately obtained history, performing a medically appropriate examination, counseling and educating the patient/family/caregiver, and ordering medications, tests, or procedures. My final recommendations will be communicated back to the requesting physician by way of shared medical record or letter via US mail. Analisa Holden MD Neurology Please send a copy of clinic note to: 1. Saloni Moffett [phone] [facility] [address] 2. Summer Lutz [address] [facility] [address] documented in this encounter [facility] 04-17-2023 Note HNO ID: [id number] Author: Robert Eugene APRN.JOB TRAINER Service: ? Author Type: Nurse Practitioner Type: Progress Notes Filed: 04/17/2023 1:19 PM Note Text: Subjective HPI HPI Saloni Moffett is a 73 year old female who presents today for CC of left rib pain and left abdominal pain after fall 1 day ago. Denies cp/sob, dizziness. Denies head injury. .Patient presents with: Fall: Pt reported fall at home x1 day c/o (LT) rib pain. PAST MEDICAL HISTORY Diagnosis Date Anxiety and depression 08/20/2017 Controlled type 2 diabetes mellitus without complication, without long-term current use of insulin ([facility]) 05/08/2017 Diabetic eye exam ([facility]) 07/07/2017 Last done: 06/26/2017 DM (diabetes mellitus) ([facility]) Essential hypertension 03/04/2018 GERD without esophagitis 08/20/2017 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 Hypothyroid Hypothyroidism 05/08/2017 Smoker 08/20/2017 Started at age 16 up to 1 PPD TIA (transient ischemic attack) PAST SURGICAL HISTORY Procedure Laterality Date CATARACT EXT; EYEONICS IOL SYS 11/24/2007 both COLONOSCOPY 05/08/2008 repeat 10 yrs CORRECT BUNION,SIMPLE Bilateral 1997 left HAMMERTOE REVISION, ONE TOE 11/24/1975 right MENISCAL REPAIR SYS,CD,[id number] Right knee PROSTHESIS, BREAST, IMP Bilateral 11/24/1975 TONSILLECTOMY HX 11/24/1954 ALLERGIES Seasonal Allergies MEDICATIONS metFORMIN (GLUCOPHAGE) 500 mg tablet Take 1 tablet by mouth three times daily. buPROPion XL (WELLBUTRIN XL) 300 mg 24 hr tablet TAKE 1 TABLET EVERY DAY Omeprazole 40 mg capsule take 1 capsule by mouth once daily valACYclovir (VALTREX) 500 mg tablet TAKE 1 TABLET EVERY DAY lisinopril (ZESTRIL, PRINIVIL) 5 mg tablet Take 1 tablet by mouth once daily. Cholecalciferol, Vitamin D3, 25 mcg (1,000 unit) cap Take 1,000 Units by mouth once daily. fluconazole (DIFLUCAN) 150 mg tablet Take 1 tablet today, then a 2nd tablet in 72 hours, and 3rd tablet in another 72 hours. SYNTHROID 175 mcg tablet Take 1 tablet by mouth every Friday and Friday. (Patient taking differently: Take 175 mcg by mouth once daily.) FAMILY HISTORY Problem Relation Age of Onset Cancer Mother Malignant neoplastic disease Heart Father Diabetes Father Diabetes Sister Diabetes Brother Social History Tobacco Use Smoking status: Former Packs/day: 1.00 Years: 20.00 Pack years: 20.00 Types: Cigarettes Quit date: 09/24/2022 Years since quittin.5 Smokeless tobacco: Never Vaping Use Vaping Use: current everyday user Substance Use Topics Alcohol use: Yes Alcohol/week: 1.0 - 2.0 standard drink Types: 1 - 2 Glasses of Wine (5oz) per week Comment: 1-2 per day Drug use: No ROS Objective Blood pressure 126/80, pulse 107, temperature 36.4 ?C (97.6 ?F), temperature source Tympanic, resp. rate 16, weight 63.6 kg (140 lb 3.2 oz), SpO2 98 %. Physical Exam Constitutional: General: She is not in acute distress. Appearance: She is not toxic-appearing or diaphoretic. HENT: Head: Normocephalic and atraumatic. Cardiovascular: Rate and Rhythm: Normal rate and regular rhythm. Heart sounds: Normal heart sounds, S1 normal and S2 normal. Pulmonary: Effort: Pulmonary effort is normal. Breath sounds: Normal breath sounds. Abdominal: General: Bowel sounds are normal. Palpations: Abdomen is soft. There is no splenomegaly. Tenderness: There is abdominal tenderness in the left upper quadrant. There is guarding. Neurological: Mental Status: She is alert and oriented to person, place, and time. Gait: Gait is intact. ASSESSMENT/PLAN: 1. Left upper quadrant pain - ICD9: 789.02, ICD10: R10.12 Concerns with amount of pain with palpation I will refer to ER, report sent. Robert Eugene APRN.CNP [facility] 03-28-2023 Miscellaneous Notes Patient notified of results, verbalizes understanding of instructions. The following approved medications have been transmitted electronically. Requested Prescriptions Signed Prescriptions Disp Refills fluconazole (DIFLUCAN) 150 mg tablet 3 tablet 0 Sig: Take 1 tablet today, then a 2nd tablet in 72 hours, and 3rd tablet in another 72 hours. Authorizing Provider: LEXI FELDMAN Pharmacy Information Pharmacy Address Telephone [id number] [address] [place] [address] Padmini Emmanuel RN Please let the patient know that her vaginal culture show that she does have a yeast infection. I have sent Diflucan in with 3 doses. Lexi Feldman APRN.CNP documented in this encounter [facility] 03-27-2023 Note HNO ID: [id number] Author: Lexi Feldman APRN.CNP Service: ? Author Type: Nurse Practitioner Type: Progress Notes Filed: 03/27/2023 9:02 AM Note Text: Saloni Moffett is a 73 year old female who presents for problem visit vaginal irritation for 2 month(s). HPI: Patient states that she has been having vaginal irritation over the past 2 months. It did start with a rash but that has now resolved and she is feeling more irritation/discomfort in the vaginal area. Her family doctor has given her several different treatments but none of them have completely resolved her symptoms. She complains of itching, burning, and a little vaginal discharge- yellowish in color. 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 History Comments: Sexual Activity: No sexual activity data on record; No partner data on record Contraception: No contraception data on record PAST MEDICAL HISTORY Diagnosis Date Anxiety and depression 08/20/2017 Controlled type 2 diabetes mellitus without complication, without long-term current use of insulin ([facility]) 05/08/2017 Diabetic eye exam ([facility]) 07/07/2017 Last done: 06/26/2017 DM (diabetes mellitus) ([facility]) Essential hypertension 03/04/2018 GERD without esophagitis 08/20/2017 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 Hypothyroid Hypothyroidism 05/08/2017 Smoker 08/20/2017 Started at age 16 up to 1 PPD TIA (transient ischemic attack) PAST SURGICAL HISTORY Procedure Laterality Date CATARACT EXT; EYEONICS IOL SYS 11/24/2007 both COLONOSCOPY 05/08/2008 repeat 10 yrs CORRECT BUNION,SIMPLE Bilateral 1997 left HAMMERTOE REVISION, ONE TOE 11/24/1975 right MENISCAL REPAIR SYS,,[id number] Right knee PROSTHESIS, BREAST, IMP Bilateral 11/24/1975 TONSILLECTOMY HX 11/24/1954 FAMILY HISTORY Problem Relation Age of Onset Cancer Mother Malignant neoplastic disease Heart Father Diabetes Father Diabetes Sister Diabetes Brother Social History Tobacco Use Smoking status: Every Day Smokeless tobacco: Never Substance Use Topics Alcohol use: Yes Comment: rare Drug use: No Current Outpatient Medications Medication Sig metFORMIN (GLUCOPHAGE) 500 mg tablet Take 1 tablet by mouth three times daily. buPROPion XL (WELLBUTRIN XL) 300 mg 24 hr tablet TAKE 1 TABLET EVERY DAY Omeprazole 40 mg capsule take 1 capsule by mouth once daily valACYclovir (VALTREX) 500 mg tablet TAKE 1 TABLET EVERY DAY naproxen (NAPROSYN) 500 mg tablet Take 1 tablet by mouth twice daily as needed (for pain/inflammation). Take with food. (Patient not taking: Reported on 04/27/2018 ) lisinopril (ZESTRIL, PRINIVIL) 5 mg tablet Take 1 tablet by mouth once daily. SYNTHROID 175 mcg tablet Take 1 tablet by mouth every Friday and Friday. (Patient taking differently: Take 175 mcg by mouth once daily. ) mupirocin (BACTROBAN) 2 % ointment Apply 1 application to affected area three times daily. Location: thumb (Patient not taking: Reported on 06/25/2018 ) aspirin, enteric coated (ADULT LOW DOSE ASPIRIN) 81 mg EC tablet Take 1 tablet by mouth once daily. Cholecalciferol, Vitamin D3, (VITAMIN D) 1,000 unit cap Take 1,000 Units by mouth once daily. No current facility-administered medications for this visit. Allergies As of Date: 03/27/2023 Allergen Noted Reaction SEASONAL ALLERGIES 04/27/2018 Other: See Comments Fully Assessed 02/13/2019 REVIEW OF SYSTEMS Abdomen: No bloating, early satiety, indigestion, or increased flatulence. No abdominal pain, nausea, vomiting, diarrhea, or constipation. Bladder: No dysuria, gross hematuria, urinary frequency, urinary urgency, or incontinence. Expanded ROS: N/A Allergies and current medication updated:Yes EXAM: There were no vitals taken for this visit. GENERAL: pleasant, female in no apparent distress HEENT: Normocephalic, atraumatic, mucus membranes moist, and no lesions CHEST: Normal inspiratory effort PELVIC: external genitalia normal, normal Bartholin's glands, urethra, Bloomer's glands, no vulvar lesions, normal appearing perineal body and perianal region, labia minora red and slightly swollen, thick yellow/white discharge BIMANUAL: Moderate tenderness NEURO: alert and oriented x3,exam grossly non-focal EXTREMITIES: normal ASSESSMENT/PLAN: 1. Vaginal irritation - ICD9: 623.9, ICD10: N89.8 - JOAN / TRICHOMONAS AMPLIFICATION - BACTERIAL VAGINOSIS AMPLIFICATION Will notify of results Lexi Feldman APRN.ELIZABETH Medical Decision Making: Problems: Moderate: New problem with uncertain prognosis Data: Unique test(s) ordered: 2 Risk: Low: Low risk from testing/treatment Medical Decision Making Level: 3 - Low [facility] 03-27-2023 History of Presen t illness Narrative Saloni Moffett is a 73 year old female who presents for problem visit vaginal irritation for 2 month(s). HPI: Patient states that she has been having vaginal irritation over the past 2 months. It did start with a rash but that has now resolved and she is feeling more irritation/discomfort in the vaginal area. Her family doctor has given her several different treatments but none of them have completely resolved her symptoms. She complains of itching, burning, and a little vaginal discharge- yellowish in color. 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 History Comments: Sexual Activity: No sexual activity data on record; No partner data on record Contraception: No contraception data on record PAST MEDICAL HISTORY Diagnosis Date Anxiety and depression 08/20/2017 Controlled type 2 diabetes mellitus without complication, without long-term current use of insulin ([facility]) 05/08/2017 Diabetic eye exam ([facility]) 07/07/2017 Last done: 06/26/2017 DM (diabetes mellitus) ([facility]) Essential hypertension 03/04/2018 GERD without esophagitis 08/20/2017 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 Hypothyroid Hypothyroidism 05/08/2017 Smoker 08/20/2017 Started at age 16 up to 1 PPD TIA (transient ischemic attack) PAST SURGICAL HISTORY Procedure Laterality Date CATARACT EXT; EYEONICS IOL SYS 11/24/2007 both COLONOSCOPY 05/08/2008 repeat 10 yrs CORRECT BUNION,SIMPLE Bilateral 1997 left HAMMERTOE REVISION, ONE TOE 11/24/1975 right MENISCAL REPAIR SYS,[id number] Right knee PROSTHESIS, BREAST, IMP Bilateral 11/24/1975 TONSILLECTOMY HX 11/24/1954 FAMILY HISTORY Problem Relation Age of Onset Cancer Mother Malignant neoplastic disease Heart Father Diabetes Father Diabetes Sister Diabetes Brother Social History Tobacco Use Smoking status: Every Day Smokeless tobacco: Never Substance Use Topics Alcohol use: Yes Comment: rare Drug use: No Current Outpatient Medications Medication Sig metFORMIN (GLUCOPHAGE) 500 mg tablet Take 1 tablet by mouth three times daily. buPROPion XL (WELLBUTRIN XL) 300 mg 24 hr tablet TAKE 1 TABLET EVERY DAY Omeprazole 40 mg capsule take 1 capsule by mouth once daily valACYclovir (VALTREX) 500 mg tablet TAKE 1 TABLET EVERY DAY naproxen (NAPROSYN) 500 mg tablet Take 1 tablet by mouth twice daily as needed (for pain/inflammation). Take with food. (Patient not taking: Reported on 04/27/2018 ) lisinopril (ZESTRIL, PRINIVIL) 5 mg tablet Take 1 tablet by mouth once daily. SYNTHROID 175 mcg tablet Take 1 tablet by mouth every Friday and Friday. (Patient taking differently: Take 175 mcg by mouth once daily. ) mupirocin (BACTROBAN) 2 % ointment Apply 1 application to affected area three times daily. Location: thumb (Patient not taking: Reported on 06/25/2018 ) aspirin, enteric coated (ADULT LOW DOSE ASPIRIN) 81 mg EC tablet Take 1 tablet by mouth once daily. Cholecalciferol, Vitamin D3, (VITAMIN D) 1,000 unit cap Take 1,000 Units by mouth once daily. No current facility-administered medications for this visit. Allergies As of Date: 03/27/2023 Allergen Noted Reaction SEASONAL ALLERGIES 04/27/2018 Other: See Comments Fully Assessed 02/13/2019 REVIEW OF SYSTEMS Abdomen: No bloating, early satiety, indigestion, or increased flatulence. No abdominal pain, nausea, vomiting, diarrhea, or constipation. Bladder: No dysuria, gross hematuria, urinary frequency, urinary urgency, or incontinence. Expanded ROS: N/A Allergies and current medication updated:Yes EXAM: There were no vitals taken for this visit. GENERAL: pleasant, female in no apparent distress HEENT: Normocephalic, atraumatic, mucus membranes moist, and no lesions CHEST: Normal inspiratory effort PELVIC: external genitalia normal, normal Bartholin's glands, urethra, Bloomer's glands, no vulvar lesions, normal appearing perineal body and perianal region, labia minora red and slightly swollen, thick yellow/white discharge BIMANUAL: Moderate tenderness NEURO: alert and oriented x3,exam grossly non-focal EXTREMITIES: normal ASSESSMENT/PLAN: 1. Vaginal irritation - ICD9: 623.9, ICD10: N89.8 - JOAN / TRICHOMONAS AMPLIFICATION - BACTERIAL VAGINOSIS AMPLIFICATION Will notify of results Lexi Feldman APRN.CNP Medical Decision Making: Problems: Moderate: New problem with uncertain prognosis Data: Unique test(s) ordered: 2 Risk: Low: Low risk from testing/treatment Medical Decision Making Level: 3 - Low documented in this encounter [facility] documented as of this encounter (statuses as of 03/27/2023) [facility]03[facility]2019 History of Past illness Narrative* Problem Noted Date Resolved Date Accidental ingestion of caustic alkali 9 02/13/2019 documented as of this encounter (statuses as of 03/28/2023) [facility] History of Past illness Narrative* Problem Noted Date Diagnosed Date Resolved Date Accidental ingestion of caustic alkali 02/13/2019 02/13/2019 documented as of this encounter (statuses as of 07/15/2023) [facility] History of Past illness Narrative* Problem Noted Date Diagnosed Date Resolved Date Accidental ingestion of caustic alkali 02/13/2019 02/13/2019 documented as of this encounter (statuses as of 07/17/2023) [facility] Diagnosis Vaginal irritation- Primary Unspecified noninflammatory disorder of vagina [facility] Diagnosis Gait instability- Primary Abnormality of gait [facility] Diagnosis Gait instability Abnormality of gait [facility]* Outpatient Procedure (Routine) - Closed Specialty Diagnoses / Procedures Referred By Sravanthi goel Referred To [facility] [place] Diagnoses Gait instability Procedures EMG(NEURO/NI) NERVE CONDUCTION STUDIES 9-[place] [address] [place] [address] [address] Referral ID Status Reason Start Date Expiration Date V isits Requested Visits Authorized [id number] Closed Auto-Generate d Referral 07/15/2023 07/15/2024 1 1 [facility] Reason for Referral Specialty Diagnoses / Procedures Referred By Sravanthi goel Referred To [facility] SPOR[facility] THERAPY INS Diagnoses Gait instability Procedures CONSULT TO PHYSICAL THERAPY PHYSICAL THERAPY EVALUATION HIGH COMPLEX [place] [address] [place] [address] [facility] [address] [address] Referral ID Status Reason Start Date Expiration Date Visits Requested Visits Authorized [id number] Pending Review Auto-Generat ed Referral 07/15/2023 07/14/2024 1 1 Specialty Diagnoses / Procedures Referred By Sravanthi goel Referred To [facility]UROLOGICAL [place] Diagnoses Gait instability Procedures EMG(NEURO/NI) NERVE CONDUCTION STUDIES 9-[place] [address] [address] Neurological [place] [address] [place] [address] Referral ID Status Reason Start Date Expiration Date Visits Requested Visits Authorized [id number] Authorized Auto-Generat ed Referral 07/15/2023 07/15/2024 1 1 Summary Purpose Family History No Family History Records Found Advance Directives No Advanced Directives Records Found Additional Source Comments Source Comments (unrecognize d section and content) In the event this informatio n is protected by the Federal Confidentiality of Alcohol and Drug Abuse Patient Records regulations: The Federal rules restrict any use of the information to criminally investigate or prosecute any alcohol or drug abuse patient.[facility] the event this information is protected by the Federal Confidentiality of Alcohol and Drug Abuse Patient Records regulations: The Federal rules restrict any use of the information to criminally investigate or prosecute any alcohol or drug abuse patient.[facility] the event this information is protected by the Federal Confidentiality of Alcohol and Drug Abuse Patient Records regulations: The Federal rules restrict any use of the information to criminally investigate or prosecute any alcohol or drug abuse patient.[facility] the event this information is protected by the Federal Confidentiality of Alcohol and Drug Abuse Patient Records regulations: The Federal rules restrict any use of the information to criminally investigate or prosecute any alcohol or drug abuse patient.[facility] Reason for Visit (unrecogniz ed section and content) Reason Comments Results Reason Comments Consult Care Teams (unrecognized sec tion and content) Dimensional Integration Engineer Relationship Specialty Start Date End Date Summer Lutz DO [address] [place] [address] PCP - General Family Medicine 10/27/18 Dimensional Integration Engineer Relationship Specialty Start Date End Date Summer Lutz DO [address] [place] [address] PCP - General Family Medicine 10/27/18 Dimensional Integration Engineer Relationship Specialty Start Date End Date Summer Lutz DO [address] [place] [address] PCP - General Family Medicine 10/27/18 INFORMATION SOURCE (unrecogn ized section and content) FOR RECORDS PERTAINING TO PATIENTS WHO ARE OR HAVE BEEN ENROLLED IN A CHEMICAL DEPENDENCY/SUBSTANCEABUSE PROGRAM, SOME INFORMATION MAY BE OMITTED. This clinical summary was aggregated from multiple sources. Caution should be exercised in using it in the provision of clinical care. This summary normalizes information from multiple sources, and as a consequence, information in this document may materially change the coding, format and clinical context of patient data. In addition, data may be omitted in some cases. CLINICAL DECISIONS SHOULD BE BASED ON THE PRIMARY CLINICAL RECORDS. [facility] [facility]. provides no warranty or guarantee of the accuracy or completeness of information in this document.
[2023-12-24 18:35] LABS: Vitamin B12 925 pg/mL (211-911); Vitamin D,25 Hydroxy 34.3 ng/mL
== END | disposition home or self-care (01) ==
PROVIDERS: PCP Family Medicine; Referring Provider Family Medicine; Visit Provider Family Medicine
DX: E55.9 Vitamin D deficiency, unspecified (principal); E53.8 Deficiency of other specified B group vitamins
CPT/HCPCS: 36415; 82306; 82607

== ENCOUNTER → 2024-01-19 | Outpatient (CLI) | payer MEDICARE, SELFPAY ==
[2024-01-19 17:54] LABS: Anion Gap 7 (5-15); BUN 38 mg/dL (7-18); Calcium,Total 9.7 mg/dL (8.5-10.1); Chloride 109 mmol/L (98-107); Creatinine, Serum 1.15 mg/dL (0.55-1.02); EST Glomerular Filtration Rate 49 mL/min (>60); Est Glom Filt Rate - Afr Amer 59 mL/min (>60); Glucose 121 mg/dL (74-106); Potassium 4.5 mmol/L (3.5-5.1); Sodium Level 141 mmol/L (136-145)
--- OUTSIDE RECORDS SUMMARY | 2024-01-19 23:07 | XMS RPT_ITS | CCD ---
Author Name Unknown Address [address] [facility] [address] [place] [id number] Organization [facility] Care Team Providers Care Batch Analyst Name Role Phone Tessa Rice LPN Unavailable [...] Allergy to substance 8 Other: See Comments [facility] Work Phone: Medications Current Medications Medication Drug [...] (4 sources) Drug therapy finding; Translations: [Other alf (current) drug therapy] Onset: 02-18-2018 02-18-2018 Episodic [...] 76 mm[Hg] Analisa Holden MD Work Phone: [facility] 07-15-2023 12:37-0400 Heart rate 88 /min Analisa Holden MD Work Phone: [facility] 07-15-2023 12:37-0400 Systolic blood pressure 147 mm[Hg] Analisa Holden MD Work Phone: [facility] 03-27-2023 08:21-0400 Body weight 62.6 kg Lexi Francia MASONRY CONTRACTOR ADMINISTRATOR.PUBLIC OPINION SURVEY TAKER Work Phone: [facility] 03-27-2023 08:21-0400 Diastolic blood pressure 74 mm[Hg] Lexi Francia MASONRY CONTRACTOR ADMINISTRATOR.PUBLIC OPINION SURVEY TAKER Work Phone: [facility] 03-27-2023 08:21-0400 Systolic blood pressure 130 mm[Hg] Lexi Francia MASONRY CONTRACTOR ADMINISTRATOR.PUBLIC OPINION SURVEY TAKER Work Phone: [facility] 07-24-2017 07:47-0400 BMI (Body Mass Index) 20.92 kg/m2 [facility] Work Phone: 07-24-2017 07:47-0400 Body Temperature 97.9 [degF] Tessa Rice LPN [facility] Work Phone: 07-24-2017 07:47-0400 BP Diastolic 88 mm[Hg] Tessa Rice LPN [facility] Work Phone: 07-24-2017 07:47-0400 BP Systolic 142 mm[Hg] Tessa Rice LPN [facility] Work Phone: 07-24-2017 07:47-0400 Height 170.18 cm Tessa Rice LPN [facility] Work Phone: 07-24-2017 07:47-0400 Pulse (Heart Rate) 78 /min eTssa [facility] Work Phone: 07-24-2017 07:47-0400 Respiratory Rate 18 /min Tessa [facility] Work Phone: 07-24-2017 07:47-0400 Weight 60.6 kg Tessa Rice LPN [facility] Work Phone: Encounters Encounter Date Encounter Type Care Provider Facility Start: 07-17-2023 End: 07-18-2023 ambulatory [facility] Facility:[facility] Start: 07-16-2023 End: 07-17-2023 ambulatory [facility] Facility:[facility] Start: 07-16-2023 End: 07-16-2023 ambulatory Emg 850) Neurology Procedures Date Procedure Procedure Detail Performing Clinician Start: 07-16-2023 Nerve conduction antoine dies 5-6 studies Analisa Holden MD Work Phone: Start: 07-18-2017 Mammography Lexi [facility] MASONRY CONTRACTOR ADMINISTRATOR.PUBLIC OPINION SURVEY TAKER Work Phone: Start: 04-25-2008 Colonoscopy Lexi [facility] MASONRY CONTRACTOR ADMINISTRATOR.PUBLIC OPINION SURVEY TAKER Work Phone: Plan of Treatment Date Care Activity Detail Author Start: 07-25-2023 [facility] Start: 07-15-2023 End: 09-14-2023 25-hydroxyvitamin D3 [Mass/volume] in Serum or Plasma VITAMIN D 25 HYDROXY Lab Routine Gait instability Expected: 07/15/2023, Expires: 09/14/2023 [facility] Work Phone: Immunizations Immunization Date Immunization Notes Care Provider Juanita desir 08-20-2017 pneumococcal conjuga te vaccine, 13 valent Lexi Francia MASONRY CONTRACTOR ADMINISTRATOR.PUBLIC OPINION SURVEY TAKER Work Phone: [facility] 10-04-2015 influenza, high dose seasonal, preservative-free Lexi [place] MASONRY CONTRACTOR ADMINISTRATOR.PUBLIC OPINION SURVEY TAKER Work Phone: [facility] 10-04-2015 pneumococcal conjuga te vaccine, 13 valent Lexi [place] MASONRY CONTRACTOR ADMINISTRATOR.PUBLIC OPINION SURVEY TAKER Work Phone: [facility] 05-20-2015 zoster vaccine, live Lexi [place] MASONRY CONTRACTOR ADMINISTRATOR.PUBLIC OPINION SURVEY TAKER Work Phone: [facility] Work Phone: 10-28-2012 influenza, seasonal, injectable Lexi Francia MASONRY CONTRACTOR ADMINISTRATOR.PUBLIC OPINION SURVEY TAKER Work Phone: [facility] 10-28-2011 influenza, seasonal, injectable Lexi Francia MASONRY CONTRACTOR ADMINISTRATOR.PUBLIC OPINION SURVEY TAKER Work Phone: [facility] 11-24-2008 tetanus toxoid, redu sajan diphtheria toxoid, and acellular pertussis vaccine, adsorbed Lexi Francia MASONRY CONTRACTOR ADMINISTRATOR.PUBLIC OPINION SURVEY TAKER Work Phone: [facility] 11-24-2003 tetanus toxoid, redu sajan diphtheria toxoid, and acellular pertussis vaccine, adsorbed Lexi [place] MASONRY CONTRACTOR ADMINISTRATOR.PUBLIC OPINION SURVEY TAKER Work Phone: [facility] Payers Date Payer Category Payer Medicare HU[employer]NA MEDICARE HU[employer]NA MEDICARE PPO [id number] 2019-Present [id number] [place] [address] PPO [id number] 2019 Medicare [id number] Social History Date Type Detail Facility Start: 03-27-2023 Tobacco smoking stat us NHIS Ex-smoker [facility] End: 09-24-2022 History of tobacco use Current smoker [facility] End: 09-24-2022 History of tobacco use Cigarette Smoker [facility] Start: 03-27-2023 End: 07-15-2023 Cigarettes smoked current (pack per day) - Reported 1 [facility] Start: 03-27-2023 Tobacco use and exposure Smoke less tobacco non-user [facility] Start: 03-27-2023 End: 04-17-2023 Alcohol intake Current drinker of alcohol (finding) [facility] Start: 03-27-2023 Alcohol Comment 1-[address] [facility] Start: 1950 Sex Assigned At Not on file [facility] Start: 04-17-2023 End: 07-15-2023 Tobacco use panel [facility] PHQ2 Score 0 [facility] Start: 1950 Sex Assigned At Female [facility] Start: 06-15-2023 Gender identity Identifies as female gender (finding) [facility] Start: 06-15-2023 Sexual orientation Heterosexual (fin ding) [facility] Clinical Notes 02-13-2019 to 07-16-2023 Feliberto Barone MD - 07/16/2023 2:10 PM MIHAELATUiAnalisa MD - 07/15/2023 1:00 PM EDTTelephone Encounter - Padmini Emmanuel RN - 03/28/2023 12:15 PM EDT Note Date & Type Note Facility 07-16-2023 Note HNO ID: [id number] Author: Feliberto Barone MD Service: ? Author [...] when applicable. ADRIANA AlvarezT Feliberto Barone MD [facility] 07-16-2023 History of Presen t illness Narrative [...] MARLEE Alvarez MD documented in this encounter [facility] 07-15-2023 Note HNO ID: [id number] Author: Analisa Holden MD Service: ? Author [...] of insulin ([facility]) 05/08/2017 Diabetic eye exam ([facility]) 07/07/2017 Last done: 06/26/2017 DM (diabetes mellitus) ([facility]) Essential hypertension 03/04/2018 GERD [...] REVISION, ONE TOE 11/24/1975 right MENISCAL REPAIR SYS,CD,[id number] Right knee PROSTHESIS, BREAST, IMP Bilateral 11/24/1975 [...] 20.00 Types: Cigarettes (more content not included)... [facility] 07-15-2023 History of Presen t illness Narrative [...] of insulin ([facility]) 05/08/2017 Diabetic eye exam ([facility]) 07/07/2017 Last done: 06/26/2017 DM (diabetes mellitus) ([facility]) Essential hypertension 03/04/2018 GERD [...] REVISION, ONE TOE 11/24/1975 right MENISCAL REPAIR SYS,CD,[id number] Right knee PROSTHESIS, BREAST, IMP Bilateral 11/24/1975 [...] Abs Lymph 1.00 - 4.00 k/uL 1.11 [place]% % 7.3 Abs [place] <0.87 k/uL 0.91 (H) Eosin% % 2.9 [...] podiatry PT - wants to go to [facility] Follow-up in 3 months or earlier if necessary. I spent a total of 60 minutes on the date of the service which included preparing to see the patient, [id number] patient care, completing clinical documentation, obtaining and/or [...] of clinic note to: 1. Saloni Moffett [id number] [address] [facility] [address] 2. Summer Lutz [address] [facility] [address] documented in this encounter [facility] 04-17-2023 Note HNO ID: [id number] Author: Robert Eugene APRN.PUBLIC OPINION SURVEY TAKER Service: ? Author Type: Nurse Practitioner Type: [...] of insulin ([facility]) 05/08/2017 Diabetic eye exam ([facility]) 07/07/2017 Last done: 06/26/2017 DM (diabetes mellitus) ([facility]) Essential hypertension 03/04/2018 GERD [...] REVISION, ONE TOE 11/24/1975 right MENISCAL REPAIR SYS,CD,[id number] Right knee PROSTHESIS, BREAST, IMP Bilateral 11/24/1975 [...] to ER, report sent. Robert Eugene APRN.CNP [facility] 03-28-2023 Miscellaneous Notes Patient notified of results, verbalizes understanding of instructions. The following approved medications have been transmitted electronically. Requested Prescriptions Signed Prescriptions Disp Refills fluconazole (DIFLUCAN) 150 mg tablet 3 tablet 0 Sig: Take 1 tablet today, then a 2nd tablet in 72 hours, and 3rd tablet in another 72 hours. Authorizing Provider: LEXI FELDMAN Pharmacy Information Pharmacy Address Telephone [id number] [address] [place] [address] Padmini Emmanuel RN Please let the patient know that her vaginal culture show that she does have a yeast infection. I have sent Diflucan in with 3 doses. Lexi Feldman APRN.CNP documented in this encounter [facility] 03-27-2023 Note HNO ID: [id number] Author: Lexi Feldman APRN.CNP Service: ? Author [...] L0 SAB0 IAB0 Ectopic0 Multiple0 Live Births0 Copy Reader History LMP: Postmenopausal Age at Menarche: Age at First : Age at Menopause: Copy Reader History Comments: Sexual Activity: No sexual activity data on record; No partner data on record Contraception: No contraception data on record PAST MEDICAL HISTORY Diagnosis Date Anxiety and depression 08/20/2017 Controlled type 2 diabetes mellitus without complication, without long-term current use of insulin ([facility]) 05/08/2017 Diabetic eye exam ([facility]) 07/07/2017 Last done: 06/26/2017 DM (diabetes mellitus) ([facility]) Essential hypertension 03/04/2018 GERD [...] REVISION, ONE TOE 11/24/1975 right MENISCAL REPAIR SYS,,[id number] Right knee PROSTHESIS, BREAST, IMP Bilateral 11/24/1975 [...] external genitalia normal, normal Bartholin's glands, urethra, Loami's glands, no vulvar lesions, normal appearing perineal [...] Medical Decision Making Level: 3 - Low [facility] 03-27-2023 History of Presen t illness Narrative [...] L0 SAB0 IAB0 Ectopic0 Multiple0 Live Births0 Copy Reader History LMP: Postmenopausal Age at Menarche: Age at First : Age at Menopause: Copy Reader History Comments: Sexual Activity: No sexual activity data on record; No partner data on record Contraception: No contraception data on record PAST MEDICAL HISTORY Diagnosis Date Anxiety and depression 08/20/2017 Controlled type 2 diabetes mellitus without complication, without long-term current use of insulin ([facility]) 05/08/2017 Diabetic eye exam ([facility]) 07/07/2017 Last done: 06/26/2017 DM (diabetes mellitus) ([facility]) Essential hypertension 03/04/2018 GERD [...] REVISION, ONE TOE 11/24/1975 right MENISCAL REPAIR SYS,CD,[id number] Right knee PROSTHESIS, BREAST, IMP Bilateral 11/24/1975 [...] external genitalia normal, normal Bartholin's glands, urethra, Loami's glands, no vulvar lesions, normal appearing perineal [...] 3 - Low documented in this encounter [facility] documented as of this encounter (statuses as of 03/27/2023) [facility] History of Past illness Narrative* Problem Noted Date Resolved Date Accidental ingestion of caustic alkali 9 02/13/2019 documented as of this encounter (statuses as of 03/28/2023) [facility] History of Past illness Narrative* Problem Noted Date Diagnosed Date Resolved Date Accidental ingestion of caustic alkali 02/13/2019 02/13/2019 documented as of this encounter (statuses as of 07/15/2023) [facility] History of Past illness Narrative* Problem Noted Date Diagnosed Date Resolved Date Accidental ingestion of caustic alkali 02/13/2019 02/13/2019 documented as of this encounter (statuses as of 07/17/2023) [facility] Diagnosis Vaginal irritation- Primary Unspecified noninflammatory disorder of vagina [facility] Diagnosis Gait instability- Primary Abnormality of gait [facility] Diagnosis Gait instability Abnormality of gait [facility] N[facility]* Outpatient Procedure (Routine) - Closed Specialty Diagnoses / Procedures Referred By Sravanthi goel Referred To [facility] [place] Diagnoses Gait instability Procedures EMG(NEURO/NI) NERVE CONDUCTION STUDIES 9-[place] [address] [place] [address] [address] Referral ID Status Reason Start Date Expiration Date V isits Requested Visits Authorized [id number] Closed Auto-Generate d Referral 07/15/2023 07/15/2024 1 1 [facility] Reason for Referral Specialty Diagnoses / Procedures Referred By Sravanthi goel Referred To [facility] Diagnoses Gait instability Procedures CONSULT TO PHYSICAL THERAPY PHYSICAL THERAPY EVALUATION HIGH COMPLEX [place] [address] [place] [address] [facility] [address] [address] Referral ID Status Reason Start Date Expiration Date Visits Requested Visits Authorized [id number] Pending Review Auto-Generat ed Referral 07/15/2023 07/14/2024 1 1 Specialty Diagnoses / Procedures Referred By Sravanthi goel Referred To [facility] [place] Diagnoses Gait instability Procedures EMG(NEURO/NI) NERVE CONDUCTION STUDIES 9-[place] [address] [place] [address] Neurological [place] [address] [place] [address] Referral ID Status Reason Start Date Expiration Date Visits Requested Visits Authorized [id number] Authorized Auto-Generat ed Referral 07/15/2023 07/15/2024 1 [...] or prosecute any alcohol or drug abuse patient.[facility] the event this information is protected by the Federal Confidentiality of Alcohol and Drug Abuse Patient Records regulations: The Federal rules restrict any use of the information to criminally investigate or prosecute any alcohol or drug abuse patient.[facility] the event this information is protected by the Federal Confidentiality of Alcohol and Drug Abuse Patient Records regulations: The Federal rules restrict any use of the information to criminally investigate or prosecute any alcohol or drug abuse patient.[facility] System[facility] the event this information is protected by the Federal Confidentiality of Alcohol and Drug Abuse Patient Records regulations: The Federal rules restrict any use of the information to criminally investigate or prosecute any alcohol or drug abuse patient.[facility] Reason for Visit (unrecogniz ed section and content) Reason Comments Results Reason Comments Consult Care Teams (unrecognized sec tion and content) Batch Analyst Relationship Specialty Start Date End Date Summer Lutz DO [address] [address] PCP - General Family Medicine 10/27/18 Batch Analyst Relationship Specialty Start Date End Date Summer Lutz DO [address] [place] [address] PCP - General Family Medicine 10/27/18 Batch Analyst Relationship Specialty Start Date End Date Summer Lutz DO [address] [place] [address] PCP - General Family Medicine 10/27/18 INFORMATION [...] BE BASED ON THE PRIMARY CLINICAL RECORDS. [facility] [employer]. provides no warranty or guarantee of the accuracy or completeness of information in this document.
== END | disposition home or self-care (01) ==
LOC: BFHLAB 14:35
PROVIDERS: PCP Family Medicine; Referring Provider Family Medicine; Visit Provider Family Medicine
DX: Z51.81 Encounter for therapeutic drug level monitoring (principal); R35.0 Frequency of micturition
CPT/HCPCS: 36415; 80048

== ENCOUNTER → 2024-01-20 | Outpatient (CLI) | payer MEDICARE, SELFPAY ==
[2024-01-20 18:06] LABS: Color, Urine Yellow (Yellow); Glucose, Dipstick Normal (Normal); Ketone-Dipstick Negative (Negative); Leukocyte Esterase-Dipstick 500 /ul (Negative); Nitrite-Dipstick Negative (Negative); Occult Blood-Urine 10 /ul (Negative); Protein-Dipstick 15 mg/dl (Negative); Urine Bilirubin Dipstick Negative (Negative); Urine Clarity Cloudy (Clear); Urine Urobilinogen Normal (Normal)
== END | disposition home or self-care (01) ==
LOC: LABSPEC 14:10
PROVIDERS: PCP Family Medicine; Visit Provider Family Medicine
DX: Z51.81 Encounter for therapeutic drug level monitoring (principal); R35.0 Frequency of micturition
CPT/HCPCS: 81002; 87077; 87086; 87088; 87186

== ENCOUNTER 2024-01-27 19:58 | Emergency (ER) | payer MEDICARE, SELFPAY ==
[2024-01-27 20:01] VITALS: BP 154/88; PULSE 89; RESP 18; TEMP 35.5; O2SAT 98; BMI 21.2
--- NOTE | 2024-01-27 20:25 | RAD_ITS ---
INDICATION: fall/bruising EXAMINATION/TECHNIQUE: X-RAY - RIGHT XR Elbow Min 3 Views COMPARISON: No relevant prior comparison study available FINDINGS: SOFT TISSUES: No soft tissue swelling or gas. No radiopaque foreign body. BONES/JOINTS: There is no displacement of the anterior or posterior fat pads. No acute fracture or subluxation. Normal alignment. Preservation of the joint space. No sclerotic or destructive changes observed. RAD/Elbow min 3 Views IMPRESSION: Negative. Electronically Signed: Max Wong MD at 21:52 EST ,
--- NOTE | 2024-01-27 20:25 | RAD_ITS ---
INDICATION: fall/bruising EXAMINATION/TECHNIQUE: X-RAY - RIGHT XR Shoulder Min 2 Views 4 VIEWS COMPARISON: No relevant prior comparison study available FINDINGS: SOFT TISSUES: No soft tissue swelling or gas. No radiopaque foreign body. BONES/JOINTS: There is mild mild degenerative arthrosis of the AC joint and glenohumeral joint. No sclerotic or destructive changes observed. 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 Electronically Signed: Max Wong MD at 21:48 EST ,
--- NOTE | 2024-01-27 22:42 | EX.ED.UPPERE ---
HPI History of Present Illness Chief Complaint: Upper Extremity Injury Informant: patient and spouse/S.O. Narrative Narrative: 74-year-old female presenting to the emergency room with right elbow pain swelling and ecchymosis. Patient fell going down the stairs about a week ago. She noted swelling posterior lateral right elbow. She developed bruising particularly over the anterior aspect of the elbow that has progressively gone inferiorly. Recently diagnosed with a Klebsiella UTI placed on ciprofloxacin. She is spreading forearm is potential for infection. She is not on anticoagulant. [facility] Medical History Alcohol use Anxiety and depression Arthritis Back problem Carpal tunnel syndrome Cataracts, bilateral Easy bruising GERD (gastroesophageal reflux disease) Goiter H/O: pneumonia HSV (herpes simplex virus) infection Hypertension Hypothyroidism Left renal stone Leg cramps Neuropathy Recurrent UTI Rheumatoid arthritis Seasonal allergies Smoker Stress incontinence TIA (transient ischemic attack) Type 2 diabetes mellitus Vision problems Home Medications bupropion HCl 300 mg 24 hr tablet, extended release (Wellbutrin XL) 300 mg PO QAM 11/20/18 [History Last Taken 07/21/20 05:15] multivitamin with minerals-folic acid 0.4 mg tablet (Adult One Daily Multivitamin) 1 tab PO DAILY 11/20/18 [History Last Taken Unknown] lisinopril 2.5 mg tablet 5 mg PO QHS 11/23/18 [History Last Taken 02/04/22] fluticasone propionate 50 mcg/actuation nasal spray,suspension 1 spray NASAL DAILY 06/22/20 [History Last Taken Unknown] loratadine 10 mg capsule 10 mg PO DAILY 06/22/20 [History Last Taken Unknown] metformin 500 mg tablet 1,000 mg PO DAILY 08/04/20 [History Last Taken Unknown] omeprazole 40 mg capsule,delayed release 40 mg PO QHS 10/13/20 [History Last Taken 02/04/22] levothyroxine 175 mcg tablet (Synthroid) 150 mcg PO DAILY 01/30/22 [History Last Taken 07/04/22] metformin 500 mg tablet 500 mg PO QHS 06/28/22 [History Last Taken Unknown] ospemifene 60 mg tablet (Osphena) 60 mg PO DAILY #30 tabs 02/13/23 [Rx Last Taken Unknown] estradiol 0.01% (0.1 mg/gram) vaginal cream See Rx Instructions vaginal .COMPLEX #42.5 grams 07/24/23 [Rx Last Taken Unknown] mometasone 0.1 % topical ointment 1 applic topical .COMPLEX #15 grams 09/03/23 [Rx Last Taken Unknown] Allergy/AdvReac Type Severity Reaction Status Date / Time No Known Allergies Allergy Verified 01/27/24 20:01 Family History Mother Cancer Father Diabetes Heart disease Sister Diabetes Surgical History History of carpal tunnel surgery History of colonoscopy History of foot surgery History of lithotripsy Social History housing: house number of children: 0 current occupational status: retired Smoking Status: Current every day smoker tobacco type: e-cigarettes alcohol intake: current alcohol intake frequency: holidays/special occasions only substance use type: does not use seatbelt use: always do you feel safe at home: Yes additional social history: ROS ROS ED Constitutional Constitutional ED: Denies chills, fever(s) or weight loss Eyes Eyes: Denies change in vision or diplopia ENT ENT ED: Denies ear pain, rhinorrhea or sore throat Cardiovascular Cardiovascular: Denies chest pain, orthopnea, palpitations or racing heartbeat Respiratory/Chest Respiratory/Chest: Denies cough, dyspnea or orthopnea Gastrointestinal Gastrointestinal: Denies abdominal pain, diarrhea, nausea or vomiting Genitourinary Genitourinary ED: Denies dysuria, hematuria or urinary frequency Musculoskeletal Musculoskeletal: Reports other Details: See history of present illness ; Denies arthralgias or myalgias Integumentary Denies abscess or rash Neurologic Neurologic: Denies headache(s) or weakness Psychiatric Psychiatric: Denies anxiety, depression, suicidal ideation or suicidal thoughts Endocrine Endocrinology: Denies polydipsia, polyphagia or polyuria Allergic/Immunologic Allergic/Immunologic ED: Denies mouth swelling, tongue swelling or urticaria EXAM Physical Exam Const Vital Signs: 01/27/24 20:01 Temperature 96 F L Temperature Source Temporal Pulse Rate 89 Respiratory Rate 18 Blood Pressure 154/88 H Blood Pressure Mean 110 Pulse Ox 98 Oxygen Delivery Method Room Air Positive well nourished and well developed General Appearance ED: well developed HEENT Reports normocephalic, head/scalp atraumatic and moist mucous membranes Eyes PERRL and EOMs intact bilaterally Neck full ROM, no lymphadenopathy, supple and no JVD Resp normal respiratory effort and clear to auscultation bilaterally Cardio regular rate, regular rhythm and no murmurs GI normal to inspection, nondistended, normoactive bowel sounds and non-tender Palpation: soft Back/Spine no CVA tenderness and normal ROM Extremity Extremity Narrative: There is ecchymosis ranging from yellow and green to purple extending over the medial distal third of the right humerus extending inferiorly and anteriorly to the level of the wrist. There are some evidence of some traumatic bursitis just lateral to the right olecranon. No palpable cords. The fingers appear normal and without swelling. General Extremety ED: Negative for edema General Extremity: Negative for edema Neuro oriented x3 and CN's II-XII intact bilaterally Sensorium / Orientation: alert Motor Exam: strength 5/5 throughout Psych mental status grossly normal Mood & Affect: Negative for depressed or tearful Skin no rashes or lesions noted and no wounds MDM MDM MDM Narrative Medical decision making narrative: My independent interpretation of plain films of the elbow and shoulder x-ray is no acute fracture. Patient was given reassurance. I believe that the ecchymosis is being pulled inferiorly secondary to gravity. She has normal radial and ulnar pulses. I do not believe she has DVT. Patient to treat conservatively return if worsening or concerns Radiography Diagnostic Testing: Clinical Impression(s) from Imaging Studies Elbow X-Ray 01/27/24 20:25 IMPRESSION: Negative. Electronically Signed: Max Wong MD at 21:52 EST , Shoulder X-Ray 01/27/24 20:25 IMPRESSION: There is mild mild degenerative arthrosis of the AC joint and glenohumeral joint. Electronically Signed: Max Wong MD at 21:48 EST , Discharge Plan Triage Chief Complaint: Upper Extremity Injury Other Complaint: Wound Check ED Provider: Alan Ramos Dx/Rx/DC Orders Clinical Impression: Traumatic ecchymosis of forearm, Traumatic bursitis, Fall Instructions: ED Contusion, Upper Extremity Prescriptions: No Action Adult One Daily Multivitamin 0.4 mg tablet 1 tab PO DAILY bupropion HCl [Wellbutrin XL] 300 mg tablet extended release 24 hr 300 mg PO QAM lisinopril 2.5 mg tablet 5 mg PO QHS metformin 500 mg tablet 1,000 mg PO DAILY omeprazole 40 mg capsule,delayed release(DR/EC) 40 mg PO QHS Osphena 60 mg tablet 60 mg PO DAILY Qty: 30 5RF Rx Instructions: must administer with food, preferably a high-fat meal estradiol 0.01 % (0.1 mg/gram) cream See Rx Instructions vaginal .COMPLEX Qty: 42.5 2RF Rx Instructions: small amount as directed vaginal every other day X 4 weeks then twice a week; mometasone 0.1 % ointment 1 applic topical .COMPLEX Qty: 15 2RF Rx Instructions: 1 applic topical small amount as directed and rub in daily X 1 week prn with symptoms fluticasone propionate 1 SPRAY spray,suspension 1 spray NASAL DAILY loratadine 10 MG capsule 10 mg PO DAILY levothyroxine [Synthroid] 175 mcg tablet 150 mcg PO DAILY metformin 500 mg Tablet 500 mg PO QHS Primary Care Provider: Praveen Lutz Referrals: Praveen Lutz DO [Primary Care Provider] - As Needed Disposition Disposition: Home, Self Care
--- OUTSIDE RECORDS SUMMARY | 2024-01-27 22:44 | XMS RPT_ITS | CCD ---
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) drug therapy] Onset: 02-18-2018 02-18-2018 Episodic [...] Analisa Holden MD Work Phone: [facility] 07-15-2023 12:37-0400 Heart rate 88 /min Analisa Holden MD Work Phone: [facility] 07-15-2023 12:37-0400 Systolic blood pressure 147 mm[Hg] Analisa Holden MD Work Phone: [facility] 03-27-2023 08:21-0400 Body weight 62.6 kg Lexi [place] STATION ENGINEER CHIEF.ASSISTANT IMPORT MANAGER Work Phone: [facility] 03-27-2023 08:21-0400 Diastolic blood pressure 74 mm[Hg] Lexi [place] STATION ENGINEER CHIEF.ASSISTANT IMPORT MANAGER Work Phone: [facility] 03-27-2023 08:21-0400 Systolic blood pressure 130 mm[Hg] Lexi [place] STATION ENGINEER CHIEF.ASSISTANT IMPORT MANAGER Work Phone: [facility] 07-24-2017 07:47-0400 BMI (Body Mass Index) 20.92 kg/m2 Tessa [facility] Work Phone: 07-24-2017 07:47-0400 Body Temperature 97.9 [degF] Tessa Rice LPN [facility] Work Phone: 07-24-2017 07:47-0400 BP Diastolic 88 mm[Hg] Tessa Rice LPN [facility] Work Phone: 07-24-2017 07:47-0400 BP Systolic 142 mm[Hg] Tessa Rice LPN [facility] Work Phone: 07-24-2017 07:47-0400 Height 170.18 cm Tessa Rice LPN [facility] Work Phone: 07-24-2017 07:47-0400 Pulse (Heart Rate) 78 /min Tessa [facility] Work Phone: 07-24-2017 07:47-0400 Respiratory Rate 18 /min Tessa [facility]oster [facility] t[facility] Work Phone: 07-24-2017 07:47-0400 Weight 60.6 kg Tessa Rice LPN [facility] Work Phone: Encounters Encounter Date Encounter Type Care Provider Facility Start: 07-17-2023 End: 07-18-2023 ambulatory [facility] Facility:[facility] Start: 07-16-2023 End: 07-17-2023 ambulatory [facility] Facility:[facility] Start: 07-16-2023 End: 07-16-2023 ambulatory Emg 850) Neurology Procedures Date Procedure Procedure Detail Performing Clinician Start: 07-16-2023 Nerve conduction antoine dies 5-6 studies Analisa Holden MD Work Phone: Start: 07-18-2017 Mammography Lexi [facility] STATION ENGINEER CHIEF.ASSISTANT IMPORT MANAGER Work Phone: Start: 04-25-2008 Colonoscopy Lexi [facility] STATION ENGINEER CHIEF.ASSISTANT IMPORT MANAGER Work Phone: Plan of Treatment Date Care Activity Detail Author Start: 07-25-2023 [facility] Start: 07-15-2023 End: 09-14-2023 25-hydroxyvitamin D3 [Mass/volume] in Serum or Plasma VITAMIN D 25 HYDROXY Lab Routine Gait instability Expected: 07/15/2023, Expires: 09/14/2023 [facility] Work Phone: Immunizations Immunization Date Immunization Notes Care Provider Juanita desir 08-20-2017 pneumococcal conjuga te vaccine, 13 valent Lexi [place] STATION ENGINEER CHIEF.ASSISTANT IMPORT MANAGER Work Phone: [facility] 10-04-2015 influenza, high dose seasonal, preservative-free Lexi [place] STATION ENGINEER CHIEF.ASSISTANT IMPORT MANAGER Work Phone: [facility] 10-04-2015 pneumococcal conjuga te vaccine, 13 valent Lexi Francia STATION ENGINEER CHIEF.ASSISTANT IMPORT MANAGER Work Phone: [facility] 05-20-2015 zoster vaccine, live Lexi M etcalf STATION ENGINEER CHIEF.ASSISTANT IMPORT MANAGER Work Phone: [facility] Work Phone: 10-28-2012 influenza, seasonal, injectable Lexi [place] STATION ENGINEER CHIEF.ASSISTANT IMPORT MANAGER Work Phone: [facility] 10-28-2011 influenza, seasonal, injectable Lexi [place] STATION ENGINEER CHIEF.ASSISTANT IMPORT MANAGER Work Phone: [facility] 11-24-2008 tetanus toxoid, redu sajan diphtheria toxoid, and acellular pertussis vaccine, adsorbed Lexi [place] STATION ENGINEER CHIEF.ASSISTANT IMPORT MANAGER Work Phone: [facility] 11-24-2003 tetanus toxoid, redu sajan diphtheria toxoid, and acellular pertussis vaccine, adsorbed Lexi [place] STATION ENGINEER CHIEF.ASSISTANT IMPORT MANAGER Work Phone: [facility] Payers Date Payer Category Payer Medicare HUMANA MEDICARE HU[employer]NA MEDICARE PPO [id number] 2019-Present [id number] [place] [id number] PPO [id number] 2019 Medicare [id number] Social History Date Type Detail Facility Start: 03-27-2023 Tobacco smoking stat us NHIS Ex-smoker [facility] End: 09-24-2022 History of tobacco use Current smoker [facility] End: 09-24-2022 History of tobacco use Cigarette Smoker [facility] Start: 03-27-2023 End: 07-15-2023 Cigarettes smoked current (pack per day) - Reported 1 [facility] Start: 03-27-2023 Tobacco use and exposure Smoke less tobacco non-user [facility] Start: 03-27-2023 End: 04-17-2023 Alcohol intake Current drinker of alcohol (finding) [facility] Start: 03-27-2023 Alcohol Comment 1-2 per day [facility] Start: 1950 Sex Assigned At Not on file [facility] Start: 04-17-2023 End: 07-15-2023 Tobacco use panel [facility] PHQ2 Score 0 [facility] Start: 1950 Sex Assigned At Female [facility] Start: 06-15-2023 Gender identity Identifies as female gender (finding) [facility] Start: 06-15-2023 Sexual orientation Heterosexual (fin ding) [facility] Clinical Notes 02-13-2019 to 07-16-2023 Feliberto Barone MD - 07/16/2023 2:10 PM MIHAELATUiAnalisa MD - 07/15/2023 1:00 PM EDTTelephone Encounter - Padmini Emmanuel RN - 03/28/2023 12:15 PM EDT Note Date & Type Note Facility 07-16-2023 Note HNO ID: [id number] Author: Feliberto Barone MD Service: ? Author [...] when applicable. ADRIANA AlvarezT Feliberto Barone MD [facility] 07-16-2023 History of Presen t illness [...] MD documented in this encounter [facility] 07-15-2023 Note HNO ID: [id number] Author: Analisa Holden MD Service: ? 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 Hypothyroid Hypothyroidism 05/08/2017 Smoker 08/20/2017 Started at age 16 up to 1 PPD TIA (transient ischemic attack) PAST SURGICAL HISTORY Procedure Laterality Date CATARACT EXT; EYEONICS IOL SYS 11/24/2007 both COLONOSCOPY 05/08/2008 repeat 10 yrs CORRECT BUNION,SIMPLE Bilateral 1997 left HAMMERTOE REVISION, ONE TOE 11/24/1975 right MENISCAL REPAIR SYS,CD,[id number] Right knee PROSTHESIS, BREAST, IMP Bilateral 11/24/1975 [...] Abs Lymph 1.00 - 4.00 k/uL 1.11 [place]% % 7.3 Abs [place] <0.87 k/uL 0.91 (H) Eosin% % 2.9 [...] podiatry PT - wants to go to [facility] Follow-up in 3 months or earlier if necessary. I spent a total of 60 minutes on the date of the service which included preparing to see the patient, [id number] patient care, completing clinical documentation, obtaining and/or [...] of clinic note to: 1. Saloni Moffett [id number] [address] [facility] [address] 2. Summer Lutz [address] [facility] [address] documented in this encounter [facility] 04-17-2023 Note HNO ID: [id number] Author: Robert Eugene APRN.ASSISTANT IMPORT MANAGER Service: ? 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 Robert Eugene APRN.CNP [facility] 03-28-2023 Miscellaneous Notes Patient notified of [...] Pharmacy Information Pharmacy Address Telephone [id number] [address] [place] [address] Padmini Emmanuel RN Please let the patient know that her vaginal culture show that she does have a yeast infection. I have sent Diflucan in with 3 doses. Lexi Feldman APRN.CNP documented in this encounter [facility] 03-27-2023 Note HNO ID: [id number] Author: Lexi Feldman APRN.CNP Service: ? Author [...] L0 SAB0 IAB0 Ectopic0 Multiple0 Live Births0 Principal Electrical Engineer History LMP: Postmenopausal Age at Menarche: Age at First : Age at Menopause: Principal Electrical Engineer History Comments: Sexual Activity: No sexual activity data on record; No partner data on record Contraception: No contraception data on record PAST MEDICAL HISTORY Diagnosis Date Anxiety and depression 08/20/2017 Controlled type 2 diabetes mellitus without complication, without long-term current use of insulin ([facility]) 05/08/2017 Diabetic eye exam ([facility]) 07/07/2017 Last done: 06/26/2017 DM (diabetes mellitus) ([facility]) Essential hypertension 03/04/2018 GERD without esophagitis 08/20/2017 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 Hypothyroid Hypothyroidism 05/08/2017 Smoker 08/20/2017 Started at age 16 up to 1 PPD TIA (transient ischemic attack) PAST SURGICAL HISTORY Procedure Laterality Date CATARACT EXT; EYEONICS IOL SYS 11/24/2007 both COLONOSCOPY 05/08/2008 repeat 10 yrs CORRECT BUNION,SIMPLE Bilateral 1997 left HAMMERTOE REVISION, ONE TOE 11/24/1975 right MENISCAL REPAIR SYS,,[id number] Right knee PROSTHESIS, BREAST, IMP Bilateral 11/24/1975 [...] external genitalia normal, normal Bartholin's glands, urethra, Paguate's glands, no vulvar lesions, normal appearing perineal [...] Medical Decision Making Level: 3 - Low [facility] 03-27-2023 History of Presen t illness [...] L0 SAB0 IAB0 Ectopic0 Multiple0 Live Births0 Principal Electrical Engineer History LMP: Postmenopausal Age at Menarche: Age at First : Age at Menopause: Principal Electrical Engineer History Comments: Sexual Activity: No sexual activity data on record; No partner data on record Contraception: No contraception data on record PAST MEDICAL HISTORY Diagnosis Date Anxiety and depression 08/20/2017 Controlled type 2 diabetes mellitus without complication, without long-term current use of insulin ([facility]) 05/08/2017 Diabetic eye exam ([facility]) 07/07/2017 Last done: 06/26/2017 DM (diabetes mellitus) ([facility]) Essential hypertension 03/04/2018 GERD without esophagitis 08/20/2017 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 Hypothyroid Hypothyroidism 05/08/2017 Smoker 08/20/2017 Started at age 16 up to 1 PPD TIA (transient ischemic attack) PAST SURGICAL HISTORY Procedure Laterality Date CATARACT EXT; EYEONICS IOL SYS 11/24/2007 both COLONOSCOPY 05/08/2008 repeat 10 yrs CORRECT BUNION,SIMPLE Bilateral 1997 left HAMMERTOE REVISION, ONE TOE 11/24/1975 right MENISCAL REPAIR SYS,CD,[id number] Right knee PROSTHESIS, BREAST, IMP Bilateral 11/24/1975 [...] external genitalia normal, normal Bartholin's glands, urethra, Paguate's glands, no vulvar lesions, normal appearing perineal [...] Low documented in this encounter [facility] documented as of this encounter (statuses as of 03/27/2023) [facility] History of Past illness Narrative* Problem Noted Date Resolved Date Accidental ingestion of caustic alkali 9 02/13/2019 documented as of this encounter (statuses as of 03/28/2023) [facility] History of Past illness Narrative* Problem Noted Date Diagnosed Date Resolved Date Accidental ingestion of caustic alkali 02/13/2019 02/13/2019 documented as of this encounter (statuses as of 07/15/2023) [facility] History of Past illness Narrative* Problem Noted Date Diagnosed Date Resolved Date Accidental ingestion of caustic alkali 02/13/2019 02/13/2019 documented as of this encounter (statuses as of 07/17/2023) [facility] Vaginal irritation- Primary Unspecified noninflammatory disorder of vagina [facility] Diagnosis Gait instability- Primary Abnormality of gait [facility] Diagnosis Gait instability Abnormality of gait [facility]* Outpatient Procedure (Routine) - Closed Specialty Diagnoses / Procedures Referred By Sravanthi goel Referred To [facility] Diagnoses Gait instability Procedures EMG(NEURO/NI) NERVE CONDUCTION STUDIES 9-[place] [address] [place] [address] [address] Referral ID Status Reason Start Date Expiration Date V isits Requested Visits Authorized [id number] Closed Auto-Generate d Referral 07/15/2023 07/15/2024 1 1 [facility] Reason for Referral Specialty Diagnoses / Procedures Referred By Sravanthi goel Referred To [facility] Diagnoses Gait instability Procedures CONSULT TO PHYSICAL THERAPY PHYSICAL THERAPY EVALUATION HIGH COMPLEX [address] [place] [address] [place] [address] [facility] [address] [address] Referral ID Status Reason Start Date Expiration Date Visits Requested Visits Authorized [id number] Pending Review Auto-Generat ed Referral 07/15/2023 07/14/2024 1 1 Specialty Diagnoses / Procedures Referred By Sravanthi goel Referred To [facility] NEUROLOGICAL [facility]ANS Diagnoses Gait instability Procedures EMG(NEURO/NI) NERVE CONDUCTION STUDIES 9-[place] [address] [place] [address] Neurological [place] [address] [place] [address] Referral ID Status Reason Start Date Expiration Date Visits Requested Visits Authorized [id number] Authorized Auto-Generat ed Referral 07/15/2023 07/15/2024 1 [...] any alcohol or drug abuse patient.[facility] the event this information is protected by the Federal Confidentiality of Alcohol and Drug Abuse Patient Records regulations: The Federal rules restrict any use of the information to criminally investigate or prosecute any alcohol or drug abuse patient.[facility] the event this information is protected by the Federal Confidentiality of Alcohol and Drug Abuse Patient Records regulations: The Federal rules restrict any use of the information to criminally investigate or prosecute any alcohol or drug abuse patient.[facility] the event this information is protected by the Federal Confidentiality of Alcohol and Drug Abuse Patient Records regulations: The Federal rules restrict any use of the information to criminally investigate or prosecute any alcohol or drug abuse patient.[facility] Reason for Visit (unrecogniz ed section and content) Reason Comments Results Reason Comments Consult Care Teams (unrecognized sec tion and content) Bander Hand Relationship Specialty Start Date End Date Summer Lutz DO [address] [place] [address] PCP - General Family Medicine 10/27/18 Bander Hand Relationship Specialty Start Date End Date Summer Lutz DO [address] [place] [address] PCP - General Family Medicine 10/27/18 Bander Hand Relationship Specialty Start Date End Date Summer Lutz DO [address] [place] [address] PCP - General Family Medicine 10/27/18 INFORMATION [...] BE BASED ON THE PRIMARY CLINICAL RECORDS. [facility]. provides no warranty or guarantee of the accuracy or completeness of information in this document.
== END 2024-01-27 22:52 | disposition home or self-care (01) ==
PROVIDERS: Emergency Provider Emergency Medicine; PCP Family Medicine; Visit Provider Emergency Medicine
DX: S50.11XA Contusion of right forearm, initial encounter (principal); E11.9 Type 2 diabetes mellitus without complications; W10.9XXA Fall (on) (from) unspecified stairs and steps, initial encounter; I10 Essential (primary) hypertension; Z86.73 Personal history of transient ischemic attack (TIA), and cerebral infarction without residual deficits; Z79.899 Other long term (current) drug therapy; F41.8 Other specified anxiety disorders; Z79.84 Long term (current) use of oral hypoglycemic drugs; K21.9 Gastro-esophageal reflux disease without esophagitis; E03.9 Hypothyroidism, unspecified; F17.290 Nicotine dependence, other tobacco product, uncomplicated; M71.9 Bursopathy, unspecified
CPT/HCPCS: 73030; 73080; 99283

== ENCOUNTER → 2024-02-03 | Outpatient (CLI) | payer MEDICARE, SELFPAY ==
--- OUTSIDE RECORDS SUMMARY | 2024-02-04 01:55 | XMS RPT_ITS | CCD ---
Author Name Unknown Address [address] [place] [address] Organization [facility] Care Team Providers Care Drilling Field Operator Name Role Phone Tessa Rice LPN Unavailable [...] Allergy to substance 8 Other: See Comments [facility] Work Phone: Medications Current Medications [...] (4 sources) Drug therapy finding; Translations: [Other intermediate accountant (current) drug therapy] Onset: 02-18-2018 02-18-2018 Episodic [...] 76 mm[Hg] Analisa Holden MD Work Phone: [facility] 07-15-2023 12:37-0400 Heart rate 88 /min Analisa Holden MD Work Phone: [facility] 07-15-2023 12:37-0400 Systolic blood pressure 147 mm[Hg] Analisa Holden MD Work Phone: [facility] 03-27-2023 08:21-0400 Body weight 62.6 kg Lexi Strathcona SKATE BOARDER.INFANTRY WEAPONS OFFICER Work Phone: [facility] 03-27-2023 08:21-0400 Diastolic blood pressure 74 mm[Hg] Lexi Francia SKATE BOARDER.INFANTRY WEAPONS OFFICER Work Phone: [facility] 03-27-2023 08:21-0400 Systolic blood pressure 130 mm[Hg] Lexi Strathcona SKATE BOARDER.INFANTRY WEAPONS OFFICER Work Phone: [facility] 07-24-2017 07:47-0400 BMI (Body Mass [...] 07:47-0400 Height 170.18 cm Tessa Rice LPN [facility] Work Phone: 07-24-2017 07:47-0400 Pulse (Heart Rate) 78 /min Tessa Fernandezoster [facility] Work Phone: 07-24-2017 07:47-0400 Respiratory Rate 18 /min Tessa Fernandezoster Infec tious Disease Work Phone: 07-24-2017 07:47-0400 Weight 60.6 kg Tessa Rice LPN [facility] Work Phone: Encounters Encounter Date Encounter Type Care Provider Facility Start: 07-17-2023 End: 07-18-2023 ambulatory [facility] Facility:[facility] Start: 07-16-2023 End: 07-17-2023 ambulatory [facility] Facility:[facility] Start: 07-16-2023 End: 07-16-2023 ambulatory Emg 850) Neurology Procedures Date Procedure Procedure Detail Performing Clinician Start: 07-16-2023 Nerve conduction antoine dies 5-6 studies Analisa Holden MD Work Phone: Start: 07-18-2017 Mammography Lexi [facility] SKATE BOARDER.INFANTRY WEAPONS OFFICER Work Phone: Start: 04-25-2008 Colonoscopy Lexi [facility] SKATE BOARDER.INFANTRY WEAPONS OFFICER Work Phone: Plan of Treatment Date Care Activity Detail Author Start: 07-25-2023 [facility] Start: 07-15-2023 End: 09-14-2023 25-hydroxyvitamin D3 [Mass/volume] in Serum or Plasma VITAMIN D 25 HYDROXY Lab Routine Gait instability Expected: 07/15/2023, Expires: 09/14/2023 [facility] Work Phone: Immunizations Immunization Date Immunization Notes Care Provider Juanita desir 08-20-2017 pneumococcal conjuga te vaccine, 13 valent Lexi Francia SKATE BOARDER.INFANTRY WEAPONS OFFICER Work Phone: [facility] 10-04-2015 influenza, high dose seasonal, preservative-free Lexi Strathcona SKATE BOARDER.INFANTRY WEAPONS OFFICER Work Phone: [facility] 10-04-2015 pneumococcal conjuga te vaccine, 13 valent Lexi Strathcona SKATE BOARDER.INFANTRY WEAPONS OFFICER Work Phone: [facility] 05-20-2015 zoster vaccine, live Lexi M etcalf SKATE BOARDER.INFANTRY WEAPONS OFFICER Work Phone: [facility] Work Phone: 10-28-2012 influenza, seasonal, injectable Lexi Francia SKATE BOARDER.INFANTRY WEAPONS OFFICER Work Phone: [facility] 10-28-2011 influenza, seasonal, injectable Lexi Francia SKATE BOARDER.INFANTRY WEAPONS OFFICER Work Phone: [facility] 11-24-2008 tetanus toxoid, redu sajan diphtheria toxoid, and acellular pertussis vaccine, adsorbed Lexi Francia SKATE BOARDER.INFANTRY WEAPONS OFFICER Work Phone: [facility] 11-24-2003 tetanus toxoid, redu sajan diphtheria toxoid, and acellular pertussis vaccine, adsorbed Lexi Francia SKATE BOARDER.INFANTRY WEAPONS OFFICER Work Phone: [facility] Payers Date Payer Category Payer Medicare HUMANA MEDICARE HUMANA MEDICARE PPO [id number] 2019-Present [id number] [place] [id number] PPO [id number] 2019 Medicare [id number] Social History Date Type Detail Facility Start: 03-27-2023 Tobacco smoking stat us NHIS Ex-smoker [facility] End: 09-24-2022 History of tobacco use Current smoker [facility] End: 09-24-2022 History of tobacco use Cigarette Smoker [facility] Start: 03-27-2023 End: 07-15-2023 Cigarettes smoked current (pack per day) - Reported 1 [facility] Start: 03-27-2023 Tobacco use and exposure Smoke less tobacco non-user [facility] Start: 03-27-2023 End: 04-17-2023 Alcohol intake Current drinker of alcohol (finding) [facility] Start: 03-27-2023 Alcohol Comment 1-2 per day [facility] Start: 1950 Sex Assigned At Not on file [facility] Start: 04-17-2023 End: 07-15-2023 Tobacco use panel [facility] PHQ2 Score 0 [facility] Start: 1950 Sex Assigned At Female [facility] Start: 06-15-2023 Gender identity Identifies as female gender (finding) [facility] Start: 06-15-2023 Sexual orientation Heterosexual (fin ding) [facility] Clinical Notes 02-13-2019 to 07-16-2023 Feliberto Barone MD - 07/16/2023 2:10 PM MIHAELATUiAnalisa MD - 07/15/2023 1:00 PM EDTTelephone Encounter - Padmini Emmanuel RN - 03/28/2023 12:15 PM EDT Note Date & Type Note Facility 07-16-2023 Note HNO ID: [id number] Author: Feliberto Barone MD Service: ? Author [...] when applicable. ADRIANA AlvarezT Feliberto Barone MD [facility] 07-16-2023 History of Presen t illness [...] MARLEE Alvarez MD documented in this encounter [facility] 07-15-2023 Note HNO ID: [id number] Author: Analisa Holden MD Service: ? Author [...] complication, without long-term current use of insulin ([facility]) 05/08/2017 Diabetic eye exam ([facility]) 07/07/2017 Last done: 06/26/2017 DM (diabetes mellitus) (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 [facility] 07-15-2023 History of Presen t illness [...] complication, without long-term current use of insulin ([facility]) 05/08/2017 Diabetic eye exam ([facility]) 07/07/2017 Last done: 06/26/2017 DM (diabetes mellitus) (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 Hypothyroid Hypothyroidism 05/08/2017 Smoker 08/20/2017 Started at age 16 up to 1 PPD TIA (transient ischemic attack) PAST SURGICAL HISTORY Procedure Laterality Date CATARACT EXT; EYEONICS IOL SYS 11/24/2007 both COLONOSCOPY 05/08/2008 repeat 10 yrs CORRECT BUNION,SIMPLE Bilateral 1997 left HAMMERTOE REVISION, ONE TOE 11/24/1975 right MENISCAL REPAIR SYS,CD,[id number] Right knee PROSTHESIS, BREAST, IMP Bilateral 11/24/1975 [...] Abs Lymph 1.00 - 4.00 k/uL 1.11 Linn% % 7.3 Abs Linn <0.87 k/uL 0.91 (H) Eosin% % 2.9 [...] podiatry PT - wants to go to [facility] Follow-up in 3 months or earlier if necessary. I spent a total of 60 minutes on the date of the service which included preparing to see the patient, [id number] patient care, completing clinical documentation, obtaining and/or [...] of clinic note to: 1. Saloni Moffett [id number] [address] [facility] [address] 2. Summer Lutz [address] [facility] [address] documented in this encounter [facility] 04-17-2023 Note HNO ID: [id number] Author: Robert Eugene APRN.INFANTRY WEAPONS OFFICER Service: ? Author Type: Nurse Practitioner Type: [...] complication, without long-term current use of insulin ([facility]) 05/08/2017 Diabetic eye exam ([facility]) 07/07/2017 Last done: 06/26/2017 DM (diabetes mellitus) (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 Robert Eugene APRN.CNP [facility] 03-28-2023 Miscellaneous Notes Patient notified of [...] Pharmacy Information Pharmacy Address Telephone [id number] [place] [address] Padmini Emmanuel RN Please let the patient know that her vaginal culture show that she does have a yeast infection. I have sent Diflucan in with 3 doses. Lexi Feldman APRN.CNP documented in this encounter [facility] 03-27-2023 Note HNO ID: [id number] Author: Lexi Feldman APRN.CNP Service: ? Author [...] L0 SAB0 IAB0 Ectopic0 Multiple0 Live Births0 Carbonating Stone Cleaner History LMP: Postmenopausal Age at Menarche: Age at First : Age at Menopause: Carbonating Stone Cleaner History Comments: Sexual Activity: No sexual activity data on record; No partner data on record Contraception: No contraception data on record PAST MEDICAL HISTORY Diagnosis Date Anxiety and depression 08/20/2017 Controlled type 2 diabetes mellitus without complication, without long-term current use of insulin ([facility]) 05/08/2017 Diabetic eye exam ([facility]) 07/07/2017 Last done: 06/26/2017 DM (diabetes mellitus) (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 Hypothyroid Hypothyroidism 05/08/2017 Smoker 08/20/2017 Started at age 16 up to 1 PPD TIA (transient ischemic attack) PAST SURGICAL HISTORY Procedure Laterality Date CATARACT EXT; EYEONICS IOL SYS 11/24/2007 both COLONOSCOPY 05/08/2008 repeat 10 yrs CORRECT BUNION,SIMPLE Bilateral 1997 left HAMMERTOE REVISION, ONE TOE 11/24/1975 right MENISCAL REPAIR SYS,,[id number] Right knee PROSTHESIS, BREAST, IMP Bilateral 11/24/1975 [...] external genitalia normal, normal Bartholin's glands, urethra, Douglas's glands, no vulvar lesions, normal appearing perineal [...] Medical Decision Making Level: 3 - Low [facility] 03-27-2023 History of Presen t illness [...] L0 SAB0 IAB0 Ectopic0 Multiple0 Live Births0 Carbonating Stone Cleaner History LMP: Postmenopausal Age at Menarche: Age at First : Age at Menopause: Carbonating Stone Cleaner History Comments: Sexual Activity: No sexual activity data on record; No partner data on record Contraception: No contraception data on record PAST MEDICAL HISTORY Diagnosis Date Anxiety and depression 08/20/2017 Controlled type 2 diabetes mellitus without complication, without long-term current use of insulin ([facility]) 05/08/2017 Diabetic eye exam ([facility]) 07/07/2017 Last done: 06/26/2017 DM (diabetes mellitus) (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 Hypothyroid Hypothyroidism 05/08/2017 Smoker 08/20/2017 Started at age 16 up to 1 PPD TIA (transient ischemic attack) PAST SURGICAL HISTORY Procedure Laterality Date CATARACT EXT; EYEONICS IOL SYS 11/24/2007 both COLONOSCOPY 05/08/2008 repeat 10 yrs CORRECT BUNION,SIMPLE Bilateral 1997 left HAMMERTOE REVISION, ONE TOE 11/24/1975 right MENISCAL REPAIR SYS,CD,[id number] Right knee PROSTHESIS, BREAST, IMP Bilateral 11/24/1975 [...] external genitalia normal, normal Bartholin's glands, urethra, Douglas's glands, no vulvar lesions, normal appearing perineal [...] 3 - Low documented in this encounter [facility] documented as of this encounter (statuses as of 03/27/2023) [facility] History of Past illness Narrative* Problem Noted Date Resolved Date Accidental ingestion of caustic alkali 9 02/13/2019 documented as of this encounter (statuses as of 03/28/2023) [facility] History of Past illness Narrative* Problem Noted Date Diagnosed Date Resolved Date Accidental ingestion of caustic alkali 02/13/2019 02/13/2019 documented as of this encounter (statuses as of 07/15/2023) [facility] History of Past illness Narrative* Problem Noted Date Diagnosed Date Resolved Date Accidental ingestion of caustic alkali 02/13/2019 02/13/2019 documented as of this encounter (statuses as of 07/17/2023) [facility] Diagnosis Vaginal irritation- Primary Unspecified noninflammatory disorder of vagina [facility] Diagnosis Gait instability- Primary Abnormality of gait [facility] Diagnosis Gait instability Abnormality of gait [facility] N[facility]* Outpatient Procedure (Routine) - Closed Specialty Diagnoses / Procedures Referred By Sravanthi goel Referred To [facility] [place] Diagnoses Gait instability Procedures EMG(NEURO/NI) NERVE CONDUCTION STUDIES 9-[place] [address] [place] [address] [address] Referral ID Status Reason Start Date Expiration Date V isits Requested Visits Authorized [id number] Closed Auto-Generate d Referral 07/15/2023 07/15/2024 1 1 [facility] Reason for Referral Specialty Diagnoses / Procedures Referred By Sravanthi goel Referred To [facility] Diagnoses Gait instability Procedures CONSULT TO PHYSICAL THERAPY PHYSICAL THERAPY EVALUATION HIGH COMPLEX [place] [address] [place] [address] [facility] [address] [address] Referral ID Status Reason Start Date Expiration Date Visits Requested Visits Authorized [id number] Pending Review Auto-Generat ed Referral 07/15/2023 07/14/2024 1 1 Specialty Diagnoses / Procedures Referred By Sravanthi goel Referred To [facility] [place] Diagnoses Gait instability Procedures EMG(NEURO/NI) NERVE CONDUCTION STUDIES 9-[place] [address] [place] [address] Neurological [place] [address] [place] [address] Referral ID Status Reason Start Date Expiration Date Visits Requested Visits Authorized [id number] Authorized Auto-Generat ed Referral 07/15/2023 07/15/2024 1 [...] or prosecute any alcohol or drug abuse patient.[facility] the event this information is protected by the Federal Confidentiality of Alcohol and Drug Abuse Patient Records regulations: The Federal rules restrict any use of the information to criminally investigate or prosecute any alcohol or drug abuse patient.[facility] the event this information is protected by the Federal Confidentiality of Alcohol and Drug Abuse Patient Records regulations: The Federal rules restrict any use of the information to criminally investigate or prosecute any alcohol or drug abuse patient.[facility] the event this information is protected by the Federal Confidentiality of Alcohol and Drug Abuse Patient Records regulations: The Federal rules restrict any use of the information to criminally investigate or prosecute any alcohol or drug abuse patient.[facility] Reason for Visit (unrecogniz ed section and content) Reason Comments Results Reason Comments Consult Care Teams (unrecognized sec tion and content) Drilling Field Operator Relationship Specialty Start Date End Date Summer Lutz DO [address] [place] [address] PCP - General Family Medicine 10/27/18 Drilling Field Operator Relationship Specialty Start Date End Date Summer Lutz DO [address] [place] [address] PCP - General Family Medicine 10/27/18 Drilling Field Operator Relationship Specialty Start Date End Date Summer Lutz DO [address] [place] [address] PCP - General Family Medicine 10/27/18 INFORMATION [...] BE BASED ON THE PRIMARY CLINICAL RECORDS. [facility]. provides no warranty or guarantee of the accuracy or completeness of information in this document.
== END | disposition home or self-care (01) ==
LOC: LABSPEC 15:06
PROVIDERS: PCP Family Medicine; Visit Provider Family Medicine
DX: N39.0 Urinary tract infection, site not specified (principal)
CPT/HCPCS: 87086

== ENCOUNTER 2024-02-25 16:00 | Outpatient (RCR) | payer MEDICARE, SELFPAY ==
--- NOTE | 2023-12-18 15:24 | HP.PTEVAL_ITS ---
Patient's Visit Information Visit Information Visit Information: IMAN HICKS is a 73 year old F referred to Physical Therapy by Dr. Praveen Lutz DO with a diagnosis of spinal stenosis/dizziness. Date of Evaluation: 12/18/23 Physical Therapist: YVETTE Morris Visit Plan Frequency: 2x /Week Duration: 2 Months Plan: Pt wants to gear her tx towards HOME exercises and wants to walk at home 2X/ week for 8 weeks for UE/LE strength, core strength, balance exercises, functional strength, gait training with HEP HEP: seated flexion repeated when her R leg hurts and see effectivness Subjective Subjective: She has had several MRI/CATSCAN etc and one surgeon wanted surgery and Dr Jeter said no surgery but she has enough arthritis for a 89 year old. Her pain varies and even at night it varies (night 2-3 motrin) and day a few motrin. She ordered a topical cream also. Her R shoulder hurts all the time. Her tip of her middle finger turned white this morning but now it is better. 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 Her balance is bad but better and has been doing some exercises....she was on a cane for awhile but now she is not. She feels that her body does not do what she tells it to do, her muscle weakness bothers her. She did some easy squats and it caused some pain. She has fallen many times in the last 9 months. Pt does not complain of dizziness but more unsteadiness Pain Back pain: Pain Intensity (Out of 10): 0 R leg pain: Pain Intensity (Out of 10): 4 Objective Objective: Gait: walks with shorter stride, upright posture, very short cautious steps with no head turn, some veering. Had the pt walk with a rollator and she was able to walk with more fluid steps....although her R leg did start to bother her. Trunk flex AROM in sitting 100%, ext in standing to neutral (prone on elbows causes some across LB pain) LE MMT: R hip flex 9.9 and L hip flex 14.2 R knee ext 24.9 and L 25.7 R knee flex 11.9 and 17.5 R hip abd 10.8 and L 10.9 R hip ext 5.5 and L 6.3 Very tight hip flexors Pt is able to heel and toe raise but due to balance needs some UE assistance. Patellar Full shoulder B AROM but tight into IR on the R UE MMT: R shoulder flex 5.8 and L 11 R shoulder ABD4.8 and L 7.7 R ER 8.8 and L 10.5 FGA: 8 Balance/Special Test Scores Functional Gait Assessment Score: 8 % Disability: 73.3400 Oswestry Low Back Score: 15 Goals Goal 1:: I HEP Goal Time Frame: 8-12 Weeks Goal 2:: Increase LE strength (at the time of the eval: LE MMT: R hip flex 9.9 and L hip flex 14.2 R knee ext 24.9 and L 25.7 R knee flex 11.9 and 17.5 R hip abd 10.8 and L 10.9 R hip ext 5.5 and L 6.3) Goal Time Frame: 8-12 Weeks Goal 3:: Increase UE strength (at the time of the eval: UE MMT: R shoulder flex 5.8 and L 11 R shoulder ABD4.8 and L 7.7 R ER 8.8 and L 10.5) Goal Time Frame: 8-12 Weeks Goal 4:: Increase balance (FGA was 8 on eval) Goal Time Frame: 8-12 Weeks Rehabilitation Potential Rehabilitation Potential: Good Anticipated Interventions Patient/Client Instruction: Educate patient on: Condition and Plan of Care For the Purpose of:: To decrease pain, To increase ROM, To improve nutrient delivery to tissue, To improve muscle performance and motor function, To improve ability to perform ADL's, To improve performance and independence with ADL's, To decrease level of supervision to perform tasks, To improve ability of physical actions for home/community/work/leisure, To improve gait and locomotor functio ns, To improve health of tissue, To decrease soft tissue restriction, To increase flexibility/ROM, To improve endurance, To improve balance and To improve safety with gait Therapeutic Exercise to Include: Strength training, Endurance training, Balance training, Body mechanics, Postural training, Flexibilty training, Gait and locomotor training, Neuromotor development, Active ROM, Dynamic Lumbar Stabilization and Scapular Strength/Stabilization For the Purpose of:: To decrease pain, To decrease swelling/inflammation, To increase ROM, To improve nutrient delivery to tissue, To increase oxygenation perfusion, To improve muscle performance and motor function, To improve ability to perform ADL's, To increase tolerance to activity/condition/position, To improve performance and independence with ADL's, To decrease level of supervision to perform tasks, To improve ability of physical actions for home/community/work/leisure, To improve gait and locomotor functions, To improve health of tissue, To decrease soft tissue restriction, To increase flexibility/ROM, To improve endurance, To improve balance and To improve safety with gait Functional Training to Include: Gait training For the Purpose of:: To improve gait and locomotor functions and To improve safety with gait Text: Thank you for the opportunity to evaluate your patient. For Medicare and Medicare HMO plans, please review the plan of care and approve it. It will need to be FAXED BACK to us at [phone] for Medicare purposes. For Medicare only, by signing this I certify the plan of care. Please let me know if there are questions or concerns regarding this plan of care. Physician Signature: Date:
--- NOTE | 2024-02-25 16:43 | HP.PTREVAL ---
Re-Evaluation Intro: Dr. Praveen Lutz, DO, It has been my pleasure to treat IMAN GELLERRP over the last 6 visits for spinal stenosis/dizziness. Please see the progress note below for an update on the physical therapy plan of care! Subjective Subjective: She fell down the steps a month ago and messed up her arm. She has not done a lot because she was injured but was working in the yard a little bit. No falls since a month ago down the steps because she was not paying attention and slid down on her side. Being stiff and not feeling as natural she should. She is still concerned that she still limps on the R side and it still pulls her down. Objective Objective/Function: LE MMT: R hip flex 9.4 and L hip flex 8 R knee ext 17.3 and L 28.3 R knee flex 6.8 and 8.2 R hip abd 8 and L 10 R hip ext 5.5 and L 6.3...NT Pt overall weaker in her LE's Plan Plan Plan: Issued HEP stretching program and pt will do this for 2 weeks and then return and see effectivness of the stretches Balance/Gait/Functional tests Balance/Special Test Scores Functional Gait Assessment Score: 8 % Disability: 73.3400 Oswestry Low Back Score: 20 Goals Goals Goal 1:: I HEP Goal Time Frame: 8-12 Weeks Goal Progress: Goal Met Goal 2:: Increase LE strength (at the time of the eval: LE MMT: R hip flex 9.9 and L hip flex 14.2 R knee ext 24.9 and L 25.7 R knee flex 11.9 and 17.5 R hip abd 10.8 and L 10.9 R hip ext 5.5 and L 6.3) Goal Time Frame: 8-12 Weeks Goal 3:: Increase UE strength (at the time of the eval: UE MMT: R shoulder flex 5.8 and L 11 R shoulder ABD4.8 and L 7.7 R ER 8.8 and L 10.5) Goal Time Frame: 8-12 Weeks Goal 4:: Increase balance (FGA was 8 on eval) Goal Time Frame: 8-12 Weeks Anticipated Interventions Anticipated Interventions Patient/Client Instruction: Educate patient on: Condition and Plan of Care For the Purpose of:: To decrease pain, To increase ROM, To improve nutrient delivery to tissue, To improve muscle performance and motor function, To improve ability to perform ADL's, To improve performance and independence with ADL's, To decrease level of supervision to perform tasks, To improve ability of physical actions for home/community/work/leisure, To improve gait and locomotor functions, To improve health of tissue, To decrease soft tissue restriction, To increase flexibility/ROM, To improve endurance, To improve balance and To improve safety with gait Therapeutic Exercise to Include: Strength training, Endurance training, Balance training, Body mechanics, Postural training, Flexibilty training, Gait and locomotor training, Neuromotor development, Active ROM, Dynamic Lumbar Stabilization and Scapular Strength/Stabilization For the Purpose of:: To decrease pain, To decrease swelling/inflammation, To increase ROM, To improve nutrient delivery to tissue, To increase oxygenation perfusion, To improve muscle performance and motor function, To improve ability to perform ADL's, To increase tolerance to activity/condition/position, To improve performance and independence with ADL's, To decrease level of supervision to perform tasks, To improve ability of physical actions for home/community/work/leisure, To improve gait and locomotor functions, To improve health of tissue, To decrease soft tissue restriction, To increase flexibility/ROM, To improve endurance, To improve balance and To improve safety with gait Functional Training to Include: Gait training For the Purpose of:: To improve gait and locomotor functions and To improve safety with gait Re-Evaluation Ending Re-evaluation ending: Please do not hesitate to contact me at [phone] by phone or if you have questions or concerns regarding this new plan of care! Sincerely, YVETTE Morris
== END 2024-02-25 19:00 | disposition home or self-care (01) ==
LOC: PT 16:00
PROVIDERS: PCP Family Medicine; Referring Provider Family Medicine; Visit Provider Family Medicine
DX: M48.061 Spinal stenosis, lumbar region without neurogenic claudication (principal); M47.12 Other spondylosis with myelopathy, cervical region; R42 Dizziness and giddiness
CPT/HCPCS: 97110; 97162

== ENCOUNTER → 2024-03-02 | Outpatient (CLI) | payer MEDICARE, SELFPAY ==
[2024-03-02 13:00] LABS: Erythrocyte Sedimentation Rate 5 mm/hr (0-30)
[2024-03-02 15:20] LABS: CRP < 2.90 mg/L (0.0-3.0); Rheumatoid Factor < 10.0 IU/mL (<15)
[2024-03-03 12:09] LABS: CCP IgG Antibodies 1 units (0-19)
== END | disposition home or self-care (01) ==
LOC: BFHLAB 11:08
PROVIDERS: PCP Family Medicine; Visit Provider Family Medicine
DX: M13.0 Polyarthritis, unspecified (principal)
CPT/HCPCS: 36415; 85652; 86140; 86200; 86431

== ENCOUNTER 2024-03-07 18:26 | Inpatient (IN) | payer MEDICARE, SELFPAY ==
[2024-03-07 18:27] VITALS: BP 166/94; PULSE 77; RESP 16; TEMP 35.7; O2SAT 96
--- NOTE | 2024-03-07 18:34 | RAD_ITS ---
STUDY: X-RAY - PELVIS REASON FOR EXAM: Female, 74 years old. Trauma TECHNIQUE: One view of the pelvis was obtained. COMPARISON: 11/12/2023 FINDINGS: There is a non-specific bowel gas pattern. Normal visualized soft tissue structures. Normal bilateral iliac wings, sacroiliac joints and visualized sacrum. Normal visualized bilateral superior and inferior pubic rami. Normal pubic symphysis. Normal ischial tuberosities. Normal visualized right femoral head. Normal right acetabulum. Normal right hip joint. Acute impacted fracture of the intertrochanteric left femur. Normal left acetabulum. Normal left hip joint. RAD/Pelvis 1 or 2 Views IMPRESSION: Acute impacted fracture of the intertrochanteric left femur. Electronically Signed: Guzman Ruiz MD at 20:21 EDT ,
[2024-03-07] MEDS: morphine 8 MG/ML Syringe 6 MG IV (18:40)
[2024-03-07] MEDS: Ondansetron 4 MG/2 ML Vial IM (18:40)
--- NOTE | 2024-03-07 18:40 | ED.VIS.LOWEX ---
HPI History of Present Illness Chief Complaint: Lower Extremity Injury Narrative Narrative: 74-year-old female past medical history of type 2 diabetes presents with left hip pain and left leg pain status post fall. She states that she was walking on the sidewalk, and slipped/tripped and fell onto her left side, injuring her left hip. She is unable to stand and has pain in her left hip and leg. She is unable to bear weight. She presents via EMS status post fall. She denies hitting her head or loss of consciousness, or other injury. [facility] Medical History Alcohol use Anxiety and depression Arthritis Back problem Carpal tunnel syndrome Cataracts, bilateral Easy bruising GERD (gastroesophageal reflux disease) Goiter H/O: pneumonia HSV (herpes simplex virus) infection Hypertension Hypothyroidism Left renal stone Leg cramps Neuropathy Recurrent UTI Rheumatoid arthritis Seasonal allergies Smoker Stress incontinence TIA (transient ischemic attack) Type 2 diabetes mellitus Vision problems Home Medications bupropion HCl 300 mg 24 hr tablet, extended release (Wellbutrin XL) 300 mg PO QAM 11/20/18 [History Last Taken 07/21/20 05:15] multivitamin with minerals-folic acid 0.4 mg tablet (Adult One Daily Multivitamin) 1 tab PO DAILY 11/20/18 [History Last Taken Unknown] fluticasone propionate 50 mcg/actuation nasal spray,suspension 1 spray NASAL DAILY 06/22/20 [History Last Taken Unknown] loratadine 10 mg capsule 10 mg PO DAILY 06/22/20 [History Last Taken Unknown] metformin 500 mg tablet 1,000 mg PO DAILY 08/04/20 [History Last Taken Unknown] omeprazole 40 mg capsule,delayed release 40 mg PO QHS 10/13/20 [History Last Taken 02/04/22] levothyroxine 175 mcg tablet (Synthroid) 150 mcg PO DAILY 01/30/22 [History Last Taken 07/04/22] metformin 500 mg tablet 500 mg PO QHS 06/28/22 [History Last Taken Unknown] estradiol 0.01% (0.1 mg/gram) vaginal cream See Rx Instructions vaginal .COMPLEX #42.5 grams 07/24/23 [Rx Last Taken Unknown] mometasone 0.1 % topical ointment 1 applic topical .COMPLEX #15 grams 09/03/23 [Rx Last Taken Unknown] lisinopril 5 mg tablet 5 mg PO DAILY 03/07/24 [History Last Taken Unknown] valacyclovir 500 mg tablet 500 mg PO BID 03/07/24 [History Last Taken Unknown] Allergy/AdvReac Type Severity Reaction Status Date / Time No Known Allergies Allergy Verified 03/07/24 18:27 Family History Mother Cancer Father Diabetes Heart disease Sister Diabetes Surgical History History of carpal tunnel surgery History of colonoscopy History of foot surgery History of lithotripsy Social History housing: house number of children: 0 current occupational status: retired Smoking Status: Current every day smoker tobacco type: e-cigarettes alcohol intake: current alcohol intake frequency: holidays/special occasions only substance use type: does not use seatbelt use: always do you feel safe at home: Yes additional social history: ROS ROS ED ROS Narrative Constitutional: No fever, no chills. HEENT: No sore throat. No neck pain. No loss of vision. No rhinorrhea. Cardiovascular: No chest pain. No palpitations. No pedal edema. Respiratory: No cough, no shortness of breath. Abdominal: No abdominal pain. No nausea. No vomiting. Genitourinary: No dysuria. No hematuria. Musculoskeletal: No myalgias. Left hip and leg pain. Neurologic: No headaches. No dizziness. No lightheadedness. Skin: No rash. No change in color. Psychiatric: No depression. No anxiety. EXAM Physical Exam Narrative Exam Narrative: Afebrile. Vital signs noted. HEENT: Normocephalic. Atraumatic. PERRL, EOMI. Neck soft and supple. No point tenderness or step off. Cardiovascular: Regular rate and rhythm. No murmurs, rubs, or gallops appreciated. Respiratory: No tachypnea. Lungs clear to auscultation bilaterally. Gastrointestinal: Abdomen soft, nontender, with normoactive bowel sounds. No rebound or guarding. Neurological: Awake. Alert. Nonfocal, nonlateralizing. Skin: No rash. Normal color. No pallor. Musculoskeletal: No pedal edema. Pelvis stable. Diffuse tenderness to palpation left hip. Left leg held in hip flexion along with knee flexion. Palpable dorsalis pedis pulse, left. EHL intact bilaterally. Const Vital Signs: 03/07/24 18:27 03/07/24 18:27 03/07/24 19:58 Temperature 96.2 F L 98.3 F Temperature Source Oral Pulse Rate 77 74 Respiratory Rate 16 16 18 Blood Pressure 166/94 H 150/95 H Blood Pressure Mean 118 113 Pulse Ox 96 91 Oxygen Delivery Method Room Air MDM MDM MDM Narrative Medical decision making narrative: Concern is for left hip fracture versus pelvic fracture versus hip contusion. The way she is holding her leg limits her examination. She was administered morphine and Zofran for analgesia and x-ray of the pelvis and femur were obtained and interpreted by myself independently. I see a intertrochanteric fracture on the lateral view. Given her hip fracture, I ordered a chest x-ray and medical screening laboratories so that she can go to the OR tomorrow. I reviewed her initial laboratory work and she has normal white count of 8.6, hemoglobin normal at 12.2, platelet count normal at 236. I do not feel coagulation studies are warranted as she is not on any blood thinners. Her BUN is elevated at 28 in review and creatinine 1.13, high-sensitivity troponin is 4. EKG interpreted by myself independently demonstrates normal sinus rhythm at 76 bpm without ectopy or acute ST changes. No STEMI. Chest x-ray 1 view interpreted by myself independently shows no acute process, no pneumothorax or pneumonia. Additionally, I interpreted her left femur x-rays and see the proximal femur fracture as seen in the independent interpretation of the pelvic x-ray. Initially, I discussed the patient with Dr. Lang with orthopedics who reviewed the x-rays of the hip who agrees with admission to the hospitalist and he will be on consult. I then discussed patient with Dr. Rutherford for admission to the medical surgical floor. Patient is in stable condition. History & Record Review Discussion w/independent historian: Patient Lab Data Attestation: I reviewed the patient's lab results. Labs: Laboratory Results - last 24 hr 03/07/24 18:30 WBC 8.6 RBC 3.59 L Hgb 12.2 Hct 37.5 MCV 104.5 H MCH 34.0 H MCHC 32.5 RDW Std Deviation 50.9 H RDW Coeff of [place] 13.2 Plt Count 236 MPV 9.9 Immature Gran % (Auto) 0.300 Neut % (Auto) 60.3 Lymph % (Auto) 26.3 [place] % (Auto) 7.1 Eos % (Auto) 5.4 H Baso % (Auto) 0.6 Absolute Neuts (auto) 5.2 Absolute Lymphs (auto) 2.27 Nucleated RBC % 0 Sodium 138 Potassium 4.1 Chloride 107 Carbon Dioxide 25.0 Anion Gap 6 BUN 28 H Creatinine 1.13 H Est GFR (MDRD) Af Amer 61 Est GFR (MDRD) Non-Af 50 L BUN/Creatinine Ratio 24.8 H Glucose 141 H Calcium 9.0 Troponin I High Sens 4 Radiography Chest X-Ray - ED: Read by ED Physician Management Discussion w/another healthcare provider: Hospitalist (Dr. Rutherford) and [employer] (Dr. Lang, orthopedics) Discharge Plan Dx/Rx/DC Orders Clinical Impression: Diabetes, Fall, Closed fracture of left hip Disposition Disposition: Acute Care Hospital [facility]
--- NOTE | 2024-03-07 18:41 | RAD_ITS ---
STUDY: X-RAY - LEFT FEMUR REASON FOR STUDY: Female, 74 years old. pain -- -- IMAGES DONE WITH LEFT KNEE BENT TECHNIQUE: 2 view(s) of the femur. COMPARISON: None. FINDINGS: Acute slightly distracted oblique fracture of the proximal shaft of the femur extending into the lesser trochanter. Normal visualized soft tissue structure. RAD/Femur Min 2 Views IMPRESSION: Acute slightly distracted oblique fracture of the proximal shaft of the femur extending into the lesser trochanter. Electronically Signed: Guzman Ruiz MD at 20:20 EDT ,
--- NOTE | 2024-03-07 19:02 | RAD_ITS ---
STUDY: X-RAY CHEST REASON FOR EXAM: Female, 74 years old. cad TECHNIQUE: Single AP portable view of the chest. COMPARISON: 04/17/2023 FINDINGS: The lungs are clear and expanded. There is no demonstrated pleural abnormality. Normal size heart. Normal mediastinum and angeles. Normal visualized pulmonary arteries. Normal visualized aortic arch and descending thoracic aorta. Normal visualized thoracic spine. Normal visualized ribs, clavicles, and shoulders. There is no demonstrated abnormality of the visualized soft tissue structures of the upper abdomen. RAD/Chest 1 View (Portable) IMPRESSION: Normal x-ray examination of the chest. Electronically Signed: Guzman Ruiz MD at 20:22 EDT ,
--- NOTE | 2024-03-07 19:27 | EKG12_ITS ---
Test Reason : FALL Blood Pressure : / mmHG Vent. Rate : 076 BPM Atrial Rate : 076 BPM P-R Int : 146 ms QRS Dur : 074 ms QT Int : 376 ms P-R-T Axes : 067 055 059 degrees QTc Int : 423 ms Normal sinus rhythm Normal ECG Confirmed by TRACY MARION, LANI ([id number]), film editor FÉLIX RUSSELL ([id number]) on 03/09/2024 8:19:55 AM Referred By: Confirmed By:LANI MOLINA MD
[2024-03-07 19:37] LABS: Absolute Lymphocyte Count 2.27 X10^3/uL (0.83-4.51); Absolute Neutrophil Count 5.2 X10^3/uL (2.0-7.7); Basophil# 0.05 X10^3/uL; Basophil% 0.6 % (0-1); Eosinophil# 0.47 X10^3/uL; Eosinophils% 5.4 % (0-5); Hematocrit 37.5 % (37-47); Hemoglobin 12.2 g/dL (12.0-15.0); Lymphocyte # 2.27 X10^3/ul (0.83-4.51); Lymphocyte % 26.3 % (19-41); Mean Corp Hgb Conc 32.5 g/dL (32-36); Mean Corpuscular Volume 104.5 fL (81-99); Mean Platelet Vol. 9.9 fl (6.2-12.0); Monocyte# 0.61 X10^3/uL; Monocyte% 7.1 % (0-10); NRBC Flagged by Analyzer 0 % (0-5); Neutrophil # 5.21 X10^3/uL (2.7-7.7); Neutrophil % 60.3 % (47-70); Platelet Count 236 K/mm3 (150-450); RBC Distribution Width CV 13.2 % (11.6-14.6); RBC Distribution Width SD 50.9 fl (35.1-43.9); Red Blood Count 3.59 M/mm3 (4.2-5.4); White Blood Count 8.6 K/mm3 (4.4-11.0)
--- NOTE | 2024-03-07 19:49 | PCM.HP.STD ---
[facility] - General General Date of Admission: 03/07/24 Date of Service: 03/07/24 Chief Complaint: Left Hip Pain after Fall. HPI Narrative IMAN HICKS, is a 74 F with a past medical history of essential hypertension, hypothyroidism; with history of goiter, DM-2; of unknown control on Metformin, peripheral neuropathy; with chronically poor balance and increasingly frequent falls, history of tobacco abuse, history of HSV, history of TIA (2011), RA, history of recurrent UTI's, history of atrophic vaginitis, history of renal calculi; with subsequent stent and lithotripsy, depression, GERD and chronic back pain who presents to [facility] ER complaining of Left hip pain after fall. Ms. Hicks reports her symptoms began approximately one hour prior to arrival when she lost her balance and fell while she was walking on a sidewalk while trying to work in her yard causing her to land on her Left hip and side with subsequent severe pain and inability to ambulate, stand up or even bear weight on her Left leg. She denies LOC or injuring her head with the fall but she does admit falling off the narrow steps of the porch of her home ~4 weeks ago. She also denies related fever, chills, nausea, vomiting, diarrhea, constipation, chest pain, SOB, recent medication changes, recent illness, history of CAD or chest pain with activity. In the ER her X-rays were positive for Left hip fracture and she was then admitted to the general medical floor for ongoing care for a stay that is expected to be greater than 48 hours. [facility]LY [facility], [facility]1983 Medical History Alcohol use Anxiety and depression Arthritis Back pain due to injury Back problem Carpal tunnel syndrome Cataracts, bilateral Easy bruising GERD (gastroesophageal reflux disease) Goiter H/O: pneumonia History of stress test HSV (herpes simplex virus) infection Hypertension Hypothyroidism Kidney stones Left renal stone Leg cramps Neuropathy Recurrent UTI Rheumatoid arthritis Seasonal allergies Smoker Stress incontinence Stroke/cerebrovascular accident Syncope TIA (transient ischemic attack) Type 2 diabetes mellitus Vision problems Home Medications bupropion HCl 300 mg 24 hr tablet, extended release (Wellbutrin XL) 300 mg PO QAM 11/20/18 [History Last Taken 07/21/20 05:15] multivitamin with minerals-folic acid 0.4 mg tablet (Adult One Daily Multivitamin) 1 tab PO DAILY 11/20/18 [History Last Taken Unknown] fluticasone propionate 50 mcg/actuation nasal spray,suspension 1 spray NASAL DAILY 06/22/20 [History Last Taken Unknown] loratadine 10 mg capsule 10 mg PO DAILY 06/22/20 [History Last Taken Unknown] metformin 500 mg tablet 1,000 mg PO DAILY 08/04/20 [History Last Taken Unknown] omeprazole 40 mg capsule,delayed release 40 mg PO QHS 10/13/20 [History Last Taken 02/04/22] levothyroxine 175 mcg tablet (Synthroid) 150 mcg PO DAILY 01/30/22 [History Last Taken 07/04/22] metformin 500 mg tablet 500 mg PO QHS 06/28/22 [History Last Taken Unknown] estradiol 0.01% (0.1 mg/gram) vaginal cream See Rx Instructions vaginal .COMPLEX #42.5 grams 07/24/23 [Rx Last Taken Unknown] mometasone 0.1 % topical ointment 1 applic topical .COMPLEX #15 grams 09/03/23 [Rx Last Taken Unknown] lisinopril 5 mg tablet 5 mg PO DAILY 03/07/24 [History Last Taken Unknown] valacyclovir 500 mg tablet 500 mg PO BID 03/07/24 [History Last Taken Unknown] Allergy/AdvReac Type Severity Reaction Status Date / Time No Known Allergies Allergy Verified 03/07/24 18:27 Family History Mother Cancer Father Diabetes Heart disease Sister Diabetes Surgical History History of carpal tunnel surgery History of colonoscopy History of foot surgery History of lithotripsy Social History housing: house number of children: 0 current occupational status: retired Smoking Status: Current every day smoker tobacco type: cigarettes alcohol intake: current alcohol intake frequency: holidays/special occasions only substance use type: does not use seatbelt use: always do you feel safe at home: Yes additional social history: ROS ROS Narrative Review of systems: Constitutional: Patient denies fever or chills. Eyes: Patient denies acute changes in vision or discharge from eyes. HENT: Patient denies head injury with fall, ear pain, runny nose or sore throat. CV: Patient denies chest pain, palpitations or heart racing. Resp: Patient denies SOB or cough. GI: Patient denies abdominal pain, nausea, vomiting, diarrhea or constipation. : Patient denies dysuria, urinary frequency or hematuria. MSK: Patient admits to severe pain in Left hip and leg as per HPI. Neuro: Patient admits to chronically poor balance and increasing falls as per HPI but she denies associated headache, paresthesias or focal neurologic deficits. Skin: Patient denies abscess, rash or jaundice. Psychiatric: Patient denies complaints related to uncontrolled depression or anxiety. Allergy: Patient denies lip swelling, tongue swelling or urticaria. Hematology: Patient denies easy bleeding or easy bruisability. 14 point ROS otherwise negative except for positives noted above in HPI. Vital Signs Vital Signs Vital Signs: 03/07/24 18:27 03/07/24 18:27 Temperature 96.2 F L Temperature Source Oral Pulse Rate 77 Respiratory Rate 16 16 Blood Pressure 166/94 H Blood Pressure Mean 118 Pulse Ox 96 Oxygen Delivery Method Room Air Physical Exam Const alert, oriented x3, no apparent distress, average body habitus and healthy appearing General Appearance: cooperative HEENT normocephalic, head/scalp atraumatic, hearing grossly normal bilaterally and moist oral mucous membranes Eyes PERRL and EOMs intact bilaterally Neck no lymphadenopathy and supple Resp normal respiratory effort, no retractions, no use of accessory muscles and clear to auscultation bilaterally Cardio regular rate and regular rhythm GI normal to inspection, nondistended, normoactive bowel sounds, soft to palpation, non-tender and non-distended Extremity Extremity Narrative: LLE shortened and externally rotated with no signs of vascular compromise. Skin Skin Narrative: Patient has no evidence of abscess, jaundice or rash. Neuro oriented x3, CN's II-XII intact bilaterally, moves all extremities and no focal motor deficits Sensorium / Orientation: awake, alert, oriented to person, oriented to place and oriented to time Speech: speech normal Psych affect normal Results Medical Records Data Attestation: I reviewed the patient's medical records Lab / Micro Data Attestation: I reviewed the patient's lab results. Lab results narrative: Her blood type is O+ and her antibody screen is negative 03/07/24 18:30 03/07/24 18:30 Labs: Laboratory Results - last 24 hr 03/07/24 18:30: WBC 8.6, RBC 3.59 L, Hgb 12.2, Hct 37.5, MCV 104.5 H, MCH 34.0 H, MCHC 32.5, RDW Std Deviation 50.9 H, RDW Coeff of [place] 13.2, Plt Count 236, MPV 9.9, Immature Gran % (Auto) 0.300, Neut % (Auto) 60.3, Lymph % (Auto) 26.3, [place] % (Auto) 7.1, Eos % (Auto) 5.4 H, Baso % (Auto) 0.6, Absolute Neuts (auto) 5.2, Absolute Lymphs (auto) 2.27, Nucleated RBC % 0 Imaging [facility] Imaging Services [address] [place] [address] Pelvis 1 or 2 Views MR#: [id number] Acct: [id number] Name: IMAN HICKS Rep #: [id number] : 1950 F 74 From: Guzman Ruiz MD PCP: Dr. Praveen Lutz, DO Status: REG ER Study: Pelvis 1 or 2 Views Date of Exam: 03/07/24 Exam# [id number] Ordering Dr: Zafar Zimmer MD STUDY: X-RAY - PELVIS REASON FOR EXAM: Female, 74 years old. Trauma TECHNIQUE: One view of the pelvis was obtained. COMPARISON: 11/12/2023 FINDINGS: There is a non-specific bowel gas pattern. Normal visualized soft tissue structures. Normal bilateral iliac wings, sacroiliac joints and visualized sacrum. Normal visualized bilateral superior and inferior pubic rami. Normal pubic symphysis. Normal ischial tuberosities. Normal visualized right femoral head. Normal right acetabulum. Normal right hip joint. Acute impacted fracture of the intertrochanteric left femur. Normal left acetabulum. Normal left hip joint. RAD/Pelvis 1 or 2 Views IMPRESSION: Acute impacted fracture of the intertrochanteric left femur. Electronically Signed: Guzman Ruiz MD at 20:21 EDT , CC: Dr. Zafar Zimmer MD; Dr. Praveen Lutz, DO ~ [employer] Teacher: Signed Assessment & Plan Assessment/Plan (1) Closed fracture of left hip: QUALIFIERS: Encounter type: initial encounter Qualified Code(s): S72.002A - Fracture of unspecified part of neck of left femur, initial encounter for closed fracture (2) Fall: QUALIFIERS: Encounter type: initial encounter Qualified Code(s): W19.XXXA - Unspecified fall, initial encounter (3) Peripheral neuropathy: QUALIFIERS: Peripheral neuropathy type: polyneuropathy, unspecified Qualified Code(s): G62.9 - Polyneuropathy, unspecified (4) Diabetes: QUALIFIERS: Diabetes mellitus type: type 2 Diabetes mellitus nursing home insulin use: without nursing home use Diabetes mellitus complication status: with other specified complication Qualified Code(s): E11.69 - Type 2 diabetes mellitus with other specified complication PLAN: Plan 1. Left Hip Fracture after Mechanical Fall - Admit to general medical floor. This patient has no absolute contraindications to medically-necessary medium-risk orthopedic surgery. Place Patel and also place LLE in 5# Garcia's traction. Give Tylenol prn for [id number] (level 1-5/10) pain or fever. Give Morphine IV prn for severe (level 6-10/10) pain. Finally, we will consult Dr. Lang of orthopedic surgery to see this patient on-rounds in the AM for further recommendations regarding ORIF with help appreciated in advance. 2. Chronic Peripheral Neuropathy; with poor balance and recent increase in frequency of falls likely significantly contributing to #1 with MCV of 104.5 fL present on admission - Continue home medications plus check B12 and Folate levels to evaluate for a potential underlying nutritional deficiency causing or contributing to her neuropathy. 3. Essential Hypertension - Resume home regimen plus give prn IV Hydralazine for systolic blood pressure > 160 mmHg. 4. Hypothyroidism; with a history of Juani's thyroiditis and diffuse thyroid goiter - Noted. Check TSH and continue Synthroid as previous. 5. DM-2; of unknown control on Metformin - ADA diet after ORIF but keep NPO except for sips, ice chips and medications. FSBS q. 6 hours. Check HgbA1c to objectively evaluate quality of diabetic control. 6. History of tobacco abuse - Tobacco cessation will be strongly encouraged. 7. History of HSV - Noted. Continue Acyclovir. 8. History of TIA (2011) - Stable. 9. RA - Noted. 10. History of recurrent UTI's - Noted. 11. History of atrophic vaginitis - Resume current management. 12. History of renal calculi; with subsequent stent and lithotripsy - Noted. 13. Depression - Continue home regimen plus give prn Xanax for breakthrough symptoms. 14. GERD - Resume PPI as previous. 15. OA; with chronic back pain - Stable. Give Tylenol prn. 16. DVT prophylaxis - We will avoid blood thinning agents preoperatively in this patient with traumatic fracture due to increased risk of potential bleeding complications. Orthopod to decide upon postoperative DVT prophylaxis regimen. Total time: Approximately 55 minutes. Charges/Coding Visit Charges Inpatient E&M: 03621 Init Hosp L2
[2024-03-07 19:54] LABS: Anion Gap 6 (5-15); BUN 28 mg/dL (7-18); BUN/Creat Ratio 24.8 RATIO (10-20); Chloride 107 mmol/L (98-107); Creatinine, Serum 1.13 mg/dL (0.55-1.02); EST Glomerular Filtration Rate 50 mL/min (>60); Est Glom Filt Rate - Afr Amer 61 mL/min (>60); Glucose 141 mg/dL (74-106); Potassium 4.1 mmol/L (3.5-5.1); Sodium Level 138 mmol/L (136-145); Troponin-I HS 4 pg/mL (3.0-54.0)
[2024-03-07] MEDS: HYDROmorphone 0.5 MG/0.5 ML SYRINGE IV ×2 (19:57→22:55)
[2024-03-07 19:58] VITALS: BP 150/95; PULSE 74; RESP 18; TEMP 36.8; O2SAT 91
[2024-03-07 22:36] VITALS: BMI 21.8
[2024-03-07 22:47] VITALS: BMI 21.9
[2024-03-07 22:48] VITALS: BMI 21.8
[2024-03-07 22:50] VITALS: BP 153/91; PULSE 75; RESP 16; TEMP 36.4; O2SAT 94
[2024-03-07] MEDS: Pantoprazole Sodium 40 MG Tablet PO (22:54)
[2024-03-07] MEDS: Acyclovir 200 MG Capsule 400 MG PO (22:54)
[2024-03-07] MEDS: 0.9% Normal Saline (1000mL) 1,000 ML 70 ML IV (22:55)
[2024-03-07 23:14] VITALS: BMI 21.8
[2024-03-07 23:15] VITALS: O2SAT 97
[2024-03-08] VITALS (14 sets, daily range): BP systolic 117–156; BP diastolic 65–96; PULSE 80–95; RESP 14–18; TEMP 36.4–37; O2SAT 92–100; BMI 21.8
[2024-03-08] MEDS: Morphine 2 MG/ML Syringe IV ×2 (04:10→08:01)
[2024-03-08] MEDS: Ondansetron 4 MG/2 ML Vial IV (04:16)
[2024-03-08 06:24] LABS: Absolute Lymphocyte Count 0.89 X10^3/uL (0.83-4.51); Absolute Neutrophil Count 7.6 X10^3/uL (2.0-7.7); Basophil# 0.02 X10^3/uL; Basophil% 0.2 % (0-1); Eosinophil# 0.03 X10^3/uL; Eosinophils% 0.3 % (0-5); Hematocrit 34.4 % (37-47); Hemoglobin 11.3 g/dL (12.0-15.0); Lymphocyte # 0.89 X10^3/ul (0.83-4.51); Lymphocyte % 9.6 % (19-41); Mean Corp Hgb Conc 32.8 g/dL (32-36); Mean Corpuscular Hgb 34.5 pg (27.0-32.0); Mean Corpuscular Volume 104.9 fL (81-99); Mean Platelet Vol. 9.1 fl (6.2-12.0); Monocyte# 0.67 X10^3/uL; Monocyte% 7.2 % (0-10); NRBC Flagged by Analyzer 0 % (0-5); Neutrophil # 7.64 X10^3/uL (2.7-7.7); Neutrophil % 82.3 % (47-70); Platelet Count 197 K/mm3 (150-450); RBC Distribution Width CV 13.2 % (11.6-14.6); RBC Distribution Width SD 50.9 fl (35.1-43.9); Red Blood Count 3.28 M/mm3 (4.2-5.4); White Blood Count 9.3 K/mm3 (4.4-11.0)
[2024-03-08] MEDS: cycloBENZAPRine HCl 5 MG TABLET PO ×3 (06:25→18:29)
[2024-03-08] MEDS: Acyclovir 200 MG Capsule 400 MG PO ×2 (06:25→22:58)
[2024-03-08] MEDS: Levothyroxine 150 MCG Tablet PO (06:25)
[2024-03-08 07:30] LABS: AST(SGOT) 25 U/L (15-37); Alanine Aminotransfer ALT/SGPT 24 U/L (13-56); Albumin, Serum 3.5 g/dL (3.2-5.0); Alkaline Phosphatase 77 U/L (45-117); Anion Gap 4 (5-15); BUN 21 mg/dL (7-18); BUN/Creat Ratio 22.2 RATIO (10-20); Calcium,Total 8.5 mg/dL (8.5-10.1); Chloride 106 mmol/L (98-107); Creatinine, Serum 0.95 mg/dL (0.55-1.02); EST Glomerular Filtration Rate 61 mL/min (>60); Est Glom Filt Rate - Afr Amer 74 mL/min (>60); Estimated Creatinine Clearance 50.52 ml/min; Globulin 3.5 g/dL (2.2-4.2); Glucose 185 mg/dL (74-106); Magnesium 1.9 mg/dL (1.6-2.6); Phosphorus 3.5 mg/dL (2.5-4.9); Potassium 4.2 mmol/L (3.5-5.1); Sodium Level 135 mmol/L (136-145); Thyroid Stim Hormone (TSH) 2.94 uIU/mL (0.358-3.74)
--- NOTE | 2024-03-08 07:32 | CON.PCM.OR_ITS ---
HPI Consult Data Date of Consult: 03/08/24 HPI Narrative Reason for Consultation: Left hip fx HPI Narrative: IMAN HICKS, is a 74 F with past medical history significant for hypertension, hypothyroidism, DM2, peripheral neuropathy, frequent falls, spinal stenosis, history of TIA, RA, recurrent UTIs who presents to [facility] after a mechanical fall walking down steps from her house yesterday. She states she fell directly on her left hip. Denies any head injury or loss consciousness. She was brought to [facility] where x-rays revealed a displaced left subtrochanteric femur fracture. Patient reports she has had significant difficulty with balance and falls since last March. She states she seen multiple specialists and reports that her peripheral neuropathy is worsening as well as having significant stenosis in her lumbar spine. She has seen Dr. Jeter locally for this and is active with physical therapy. She states therapy has minimally helped her balance. She states she rarely uses a cane or walker for ambulatory aid. She states her last fall was several weeks ago. She was admitted under the service of the hospitalist. I saw patient in consultation this morning. She reports no issues with anesthesia. She denies any antecedent left hip or groin pain. She denies fevers, chills, nausea vomiting, chest pain or shortness of breath. [facility] Medical History Alcohol use Anxiety and depression Arthritis Back pain due to injury Back problem Carpal tunnel syndrome Cataracts, bilateral Easy bruising GERD (gastroesophageal reflux disease) Goiter H/O: pneumonia History of stress test HSV (herpes simplex virus) infection Hypertension Hypothyroidism Kidney stones Left renal stone Leg cramps Neuropathy Recurrent UTI Rheumatoid arthritis Seasonal allergies Smoker Stress incontinence Stroke/cerebrovascular accident Syncope TIA (transient ischemic attack) Type 2 diabetes mellitus Vision problems Home Medications bupropion HCl 300 mg 24 hr tablet, extended release (Wellbutrin XL) 300 mg PO QAM 11/20/18 [History Last Taken 07/21/20 05:15] multivitamin with minerals-folic acid 0.4 mg tablet (Adult One Daily Multivitamin) 1 tab PO DAILY 11/20/18 [History Last Taken Unknown] fluticasone propionate 50 mcg/actuation nasal spray,suspension 1 spray NASAL DAILY 06/22/20 [History Last Taken Unknown] loratadine 10 mg capsule 10 mg PO DAILY 06/22/20 [History Last Taken Unknown] metformin 500 mg tablet 1,000 mg PO DAILY 08/04/20 [History Last Taken Unknown] omeprazole 40 mg capsule,delayed release 40 mg PO QHS 10/13/20 [History Last Taken 02/04/22] levothyroxine 175 mcg tablet (Synthroid) 150 mcg PO DAILY 01/30/22 [History Last Taken 07/04/22] metformin 500 mg tablet 500 mg PO QHS 06/28/22 [History Last Taken Unknown] estradiol 0.01% (0.1 mg/gram) vaginal cream See Rx Instructions vaginal .COMPLEX #42.5 grams 07/24/23 [Rx Last Taken Unknown] mometasone 0.1 % topical ointment 1 applic topical .COMPLEX #15 grams 09/03/23 [Rx Last Taken Unknown] lisinopril 5 mg tablet 5 mg PO DAILY 03/07/24 [History Last Taken Unknown] valacyclovir 500 mg tablet 500 mg PO BID 03/07/24 [History Last Taken Unknown] Allergy/AdvReac Type Severity Reaction Status Date / Time No Known Allergies Allergy Verified 03/07/24 18:27 Family History Mother Cancer Father Diabetes Heart disease Sister Diabetes Surgical History History of carpal tunnel surgery History of colonoscopy History of foot surgery History of lithotripsy Social History housing: house number of children: 0 current occupational status: retired Smoking Status: Current every day smoker tobacco type: cigarettes alcohol intake: current alcohol intake frequency: holidays/special occasions only substance use type: does not use seatbelt use: always do you feel safe at home: Yes additional social history: ROS ROS Narrative 12 point review systems obtained, negative unless otherwise noted in HPI. Vital Signs Vital Signs Vital Signs: 03/07/24 18:27 03/07/24 18:27 03/07/24 19:58 Temperature 96.2 F L 98.3 F Temperature Source Oral Pulse Rate 77 74 Respiratory Rate 16 16 18 Respiratory Effort Blood Pressure 166/94 H 150/95 H Blood Pressure Mean 118 113 Blood Pressure Source Blood Pressure Position Blood Pressure Location Pulse Ox 96 91 Oxygen Delivery Method Room Air 03/07/24 22:50 03/07/24 23:15 03/07/24 23:00 Temperature 97.5 F L Temperature Source Oral Pulse Rate 75 Respiratory Rate 16 Respiratory Effort Normal Non-Labored Blood Pressure 153/91 H Blood Pressure Mean 111 Blood Pressure Source Monitor Blood Pressure Position Semi-Fowlers Blood Pressure Location Right Arm Pulse Ox 94 97 Oxygen Delivery Method Room Air Room Air Room Air 03/08/24 04:19 Temperature 97.8 F Temperature Source Temporal Pulse Rate 81 Respiratory Rate 18 Respiratory Effort Blood Pressure 146/91 H Blood Pressure Mean 109 Blood Pressure Source Monitor Blood Pressure Position Blood Pressure Location Pulse Ox 98 Oxygen Delivery Method Room Air Weight Weight: 139 lb 8.842 oz Body Mass Index (BMI) 21.8 Physical Exam Narrative General -A&Ox3, NAD, appears stated age. Vital signs stable, afebrile. Respiratory -normal work of breathing, no intercostal retractions. CV -pulses regular, brisk capillary refill ?4 limbs. Abdomen-soft, nontender, nondistended. No guarding, rigidity, rebound tenderness. Musculoskeletal/neurologic -full range of motion nontender throughout bilateral upper extremities, right lower extremity with full sensation and strength in all dermatomes and myotomes. No midline cervical tenderness. Left lower extremity-patient holds her left hip in a flexed, adducted position. Pain With logroll of the left lower extremity. Nontender throughout the left knee femoral shaft, tibial shaft and left foot/ankle. Brisk capillary refill. Sensation intact light touch L3-S1 dermatomes. DF, PF, EHL intact. DP, PT 2+. Pelvis is stable, nontender. Skin is intact without lacerations, abrasions. No ecchymosis noted. Lab / Micro Data 03/08/24 06:10 03/08/24 06:10 Labs: Laboratory Results - last 24 hr 03/07/24 18:30: WBC 8.6, RBC 3.59 L, Hgb 12.2, Hct 37.5, MCV 104.5 H, MCH 34.0 H , MCHC 32.5, RDW Std Deviation 50.9 H, RDW [place]eff of [place] 13.2, Plt Count 236, MPV 9.9, Immature Gran % (Auto) 0.300, Neut % (Auto) 60.3, Lymph % (Auto) 26.3, Butler % (Auto) 7.1, Eos % (Auto) 5.4 H, Baso % (Auto) 0.6, Absolute Neuts (auto) 5.2, Absolute Lymphs (auto) 2.27, Nucleated RBC % 0, Sodium 138, Potassium 4.1, Chloride 107, Carbon Dioxide 25.0, Anion Gap 6, BUN 28 H, Creatinine 1.13 H, Est GFR (MDRD) Af Amer 61, Est GFR (MDRD) Non-Af 50 L, BUN/Creatinine Ratio 24.8 H, Glucose 141 H, Calcium 9.0, Troponin I High Sens 4, Folate 23.20 03/07/24 20:06: Blood Type O POSITIVE, Antibody Screen NEGATIVE 03/08/24 06:10: WBC 9.3, RBC 3.28 L, Hgb 11.3 L, Hct 34.4 L, MCV 104.9 H, MCH 34.5 H, MCHC 32.8, RDW Std Deviation 50.9 H, RDW [place] [place] 13.2, Plt Count 197, MPV 9.1, Immature Gran % (Auto) 0.400, Neut % (Auto) 82.3 H, Lymph % (Auto) 9.6 L, Butler % (Auto) 7.2, Eos % (Auto) 0.3, Baso % (Auto) 0.2, Absolute Neuts (auto) 7.6, Absolute Lymphs (auto) 0.89, Nucleated RBC % 0, Sodium 135 L, Potassium 4.2, Chloride 106, Carbon Dioxide 25.0, Anion Gap 4 L, BUN 21 H, Creatinine 0.95, Estim Creat Clear Calc 50.52, Est GFR (MDRD) Af Amer 74, Est GFR (MDRD) Non-Af 61, BUN/Creatinine Ratio 22.2 H, Glucose 185 H, Calcium 8.5, Phosphorus 3.5, Magnesium 1.9, Total Bilirubin 0.40, AST 25, ALT 24, Alkaline Phosphatase 77, Total Protein 7.0, Albumin 3.5, Globulin 3.5, Albumin/Globulin Ratio 1.0, TSH 2.94 Imaging Radiology Impression Pelvis X-Ray 03/07/24 18:34 IMPRESSION: Acute impacted fracture of the intertrochanteric left femur. Electronically Signed: Guzman Ruiz MD at 20:21 EDT Reading Location ID and State: [id number] / [employer] , Service support , Femur X-Ray 03/07/24 18:41 IMPRESSION: Acute slightly distracted oblique fracture of the proximal shaft of the femur extending into the lesser trochanter. Electronically Signed: Guzman Ruiz MD at 20:20 EDT Reading Location ID and State: [id number] / [employer] , Service support , Chest X-Ray 03/07/24 19:02 IMPRESSION: Normal x-ray examination of the chest. Electronically Signed: Guzman Ruiz MD at 20:22 EDT Reading Location ID and State: [id number] / [employer] , Service support , Assessment & Plan Assessment/Plan (1) Closed fracture of left hip: QUALIFIERS: Encounter type: initial encounter Qualified Code(s): S72.002A - Fracture of unspecified part of neck of left femur, initial encounter for closed fracture PLAN: Patient sustained a left subtrochanteric proximal femur fracture. -Closed, neurovascularly intact -Isolated injury -Recommending surgical intervention in the form of left femur cephalomedullary nailing -I discussed the procedure-its risks, benefits and alternative. Risks include but are not limited to bleeding, infection, loss of life or limb, risk of anesthesia, persistent pain or disability, need for additional surgery, nonunion, malunion, failure of orthopedic hardware, neurovascular injury, DVT or PE. Patient expressed understanding these risks and wished proceed with surgery. -Maintenance IV fluids, clear liquid diet after midnight n.p.o. at 2 hours prior to surgery -Type and screen -2 g Ancef IV, 1 g IV TXA on-call to the OR -Bedrest, heel protectors -Plan to proceed with surgery later today when OR becomes available Thank you for this consultation.
--- NOTE | 2024-03-08 07:41 | PN.HOSP_ITS ---
Reason for Visit Reason for Visit: Diagnoses Type 2 diabetes mellitus with other specified complication (03/07/24) Polyneuropathy, unspecified (03/07/24) Fracture of unspecified part of neck of left femur, initial encounter for closed fracture (03/07/24) Unspecified fall, initial encounter (03/07/24) Subjective Subjective Had issues with nausea and pain earlier today. Objective Data Objective Data Vital Signs: Vital Signs Temp Pulse Resp BP Pulse Ox O2 Del Method 36.6 C 81 18 146/91 H 98 Room Air 03/08/24 04:19 03/08/24 04:19 03/08/24 04:19 03/08/24 04:19 03/08/24 04:19 03/08/24 04:19 Oxygen Delivery Method Room Air Weight: 63.3 kg Body Mass Index (BMI) 21.8 Intake & Output: Intake and Output for Last 24 Hours 03/06/24 03/07/24 03/08/24 23:59 23:59 23:59 Intake Total 0 / 0 Output Total 600 / 600 Balance 0 / 0 -600 / -600 Lab / Micro Data 03/08/24 06:10 03/08/24 06:10 Labs: Laboratory Results - last 24 hr 03/07/24 18:30: WBC 8.6, RBC 3.59 L, Hgb 12.2, Hct 37.5, MCV 104.5 H, MCH 34.0 H , MCHC 32.5, RDW Std Deviation 50.9 H, RDW [place]eff [place] 13.2, Plt Count 236, MPV 9.9, Immature Gran % (Auto) 0.300, Neut % (Auto) 60.3, Lymph % (Auto) 26.3, Dickens % (Auto) 7.1, Eos % (Auto) 5.4 H, Baso % (Auto) 0.6, Absolute Neuts (auto) 5.2, Absolute Lymphs (auto) 2.27, Nucleated RBC % 0, Sodium 138, Potassium 4.1, Chloride 107, Carbon Dioxide 25.0, Anion Gap 6, BUN 28 H, Creatinine 1.13 H, Est GFR (MDRD) Af Amer 61, Est GFR (MDRD) Non-Af 50 L, BUN/Creatinine Ratio 24.8 H, Glucose 141 H, Calcium 9.0, Troponin I High Sens 4, Folate 23.20 03/07/24 20:06: Blood Type O POSITIVE, Antibody Screen NEGATIVE 03/08/24 06:10: WBC 9.3, RBC 3.28 L, Hgb 11.3 L, Hct 34.4 L, MCV 104.9 H, MCH 34.5 H, MCHC 32.8, RDW Std Deviation 50.9 H, RDW [place]eff [place] 13.2, Plt Count 197, MPV 9.1, Immature Gran % (Auto) 0.400, Neut % (Auto) 82.3 H, Lymph % (Auto) 9.6 L, Dickens % (Auto) 7.2, Eos % (Auto) 0.3, Baso % (Auto) 0.2, Absolute Neuts (auto) 7.6, Absolute Lymphs (auto) 0.89, Nucleated RBC % 0, Sodium 135 L, Potassium 4.2, Chloride 106, Carbon Dioxide 25.0, Anion Gap 4 L, BUN 21 H, Creatinine 0.95, Estim Creat Clear Calc 50.52, Est GFR (MDRD) Af Amer 74, Est GFR (MDRD) Non-Af 61, BUN/Creatinine Ratio 22.2 H, Glucose 185 H, Calcium 8.5, Phosphorus 3.5, Magnesium 1.9, Total Bilirubin 0.40, AST 25, ALT 24, Alkaline Phosphatase 77, Total Protein 7.0, Albumin 3.5, Globulin 3.5, Albumin/Globulin Ratio 1.0, TSH 2.94 Radiography Diagnostic Testing: Radiology Impression Pelvis X-Ray 03/07/24 18:34 IMPRESSION: Acute impacted fracture of the intertrochanteric left femur. Electronically Signed: Guzman Ruiz MD at 20:21 EDT Reading Location ID and State: [id number] / [employer] , Service support , Femur X-Ray 03/07/24 18:41 IMPRESSION: Acute slightly distracted oblique fracture of the proximal shaft of the femur extending into the lesser trochanter. Electronically Signed: Guzman Ruiz MD at 20:20 EDT , Chest X-Ray 03/07/24 19:02 IMPRESSION: Normal x-ray examination of the chest. Electronically Signed: Guzman Ruiz MD at 20:22 EDT , Physical Exam Narrative Nontoxic. Alert. Being taken to the OR. Const alert Psych affect normal Assessment & Plan Assessment/Plan (1) Closed fracture of left hip: QUALIFIERS: Encounter type: initial encounter Qualified Code(s): S72.002A - Fracture of unspecified part of neck of left femur, initial encounter for closed fracture (2) Fall: QUALIFIERS: Encounter type: initial encounter Qualified Code(s): W19.XXXA - Unspecified fall, initial encounter (3) Peripheral neuropathy: QUALIFIERS: Peripheral neuropathy type: polyneuropathy, unspecified Qualified Code(s): G62.9 - Polyneuropathy, unspecified (4) Diabetes: QUALIFIERS: Diabetes mellitus complication status: with other specified complication Diabetes mellitus mcc insulin use: without buttermaker helper use Diabetes mellitus type: type 2 Qualified Code(s): E11.69 - Type 2 diabetes mellitus with other specified complication PLAN: Plan Left Hip Fracture after Mechanical Fall * Medically cleared for surgery. * Place Patel and also place LLE in 5# Garcia's traction. * Pain control * Orthopaedics consult. * 25-OH d level 36.6, start ergocalciferol. Chronic conditions: * Chronic Peripheral Neuropathy; with poor balance and recent increase in frequency of falls likely significantly contributing to #1 with MCV of 104.5 present on admission Continue home medications. * Essential Hypertension - Resume home regimen plus give prn IV Hydralazine for systolic blood pressure > 160 mmHg. * Hypothyroidism; with a history of Juani's thyroiditis and diffuse thyroid goiter - Noted. Check TSH and continue Synthroid as previous. * DM-2; of unknown control on Metformin - ADA diet after ORIF but keep NPO except for sips, ice chips and medications. FSBS q. 6 hours. Check HgbA1c to objectively evaluate quality of diabetic control. Add SSI. * History of tobacco abuse - Tobacco cessation will be strongly encouraged. * History of HSV - Noted. Continue Acyclovir. * History of TIA (2011) - Stable. * RA - stable * History of renal calculi; with subsequent stent and lithotripsy * Depression - Continue home regimen plus give prn Xanax for breakthrough symptoms. * GERD - Resume PPI as previous. * OA; with chronic back pain - Stable. Give Tylenol prn. DVT prophylaxis SCDs Charges/Coding Visit Charges Inpatient E&M: 47180 Subs Hosp L1
[2024-03-08] MEDS: 0.9% Saline Lock 10 ML Syringe IV ×2 (08:01→11:16)
--- NOTE | 2024-03-08 09:07 | RAD.NOTE ---
Pt refusing SCDs at this time. Pt reports that they are causing pain
[2024-03-08] MEDS: buPROPion (XL) 300 MG TABLET.XL PO (09:14)
[2024-03-08] MEDS: Lisinopril 5 MG Tablet PO (09:14)
[2024-03-08 09:20] LABS: Vitamin B12 1027 pg/mL (211-911)
[2024-03-08 09:23] LABS: Vitamin D,25 Hydroxy 36.6 ng/mL
[2024-03-08 09:31] LABS: Hemoglobin A1c 6.5 % (3.8-5.6)
--- NOTE | 2024-03-08 10:02 | CASEMGMT ---
AQUILES ALANIZ Assessment: Face to Face with pt for initial transition planning/care coordination assessment. AQUILES ALANIZ introduced self and role at [facility], pt voices understanding and consents to assessment. Pt is A&O x4 and answers all questions appropriately at this time. Pt sitting up in bed in no distress with sig other at bedside. Pt agreeable to assessment with sig other present. Care providers, pharmacy, and demographics verified/updated. Admitting Dx: L hip fx after mechanical fall PCP:Nelda Specialists:carolina Jeter [facility] Insurance: [employer] Prescription Benefit: yes LNOK: Lucas Mendez, sig other; Madison Boogie, sister Living Arrangements: Pt lives alone in a two story home with 1 step to enter. Pt reports she is typically I in ADL's and denies concerns at home. Transportation: Pt drives self and denies concerns with transportation. DME:cane, walker- uses occasionally HHC/SNF: Denies hx of Pt states no concerns with going home at time of dc. Pt was attending outpt therapy at [facility]. Pt has surgery scheduled today. She is aware that therapy will see her post surgery and AQUILES ALANIZ will follow. Pt states no further concerns/needs. Advised pt to ask CM if any further question/concerns/needs arise, voices understanding. Pt Goal: Home Plan: TBD pending surgery and therapy chasdiy Lu RN, CM
[2024-03-08] MEDS: Acetaminophen 325 MG Tablet 650 MG PO (10:32)
--- NOTE | 2024-03-08 10:42 | NURSING ---
in to talk with patient and family after talked with Primary RN. Aware pt requesting new hospitalist as upset as Dr. Bass's response regarding pain medication. Informed patient and family did reach out to surgeon, Dr. Lang regarding her pain, awaiting response.
[2024-03-08] MEDS: Morphine 4 MG/ML Syringe IV (11:16)
[2024-03-08] MEDS: 0.9% Normal Saline (1000mL) 1,000 ML 70 ML IV ×2 (11:26→16:47)
[2024-03-08 11:44] LABS: Bedside Glucose 162 mg/dL (74-106)
[2024-03-08] MEDS: Cefazolin 2 GM in 0.9% Normal Saline (100mL Bag) 100 ML IV ×2 (13:20→22:58)
[2024-03-08] MEDS: TRANEXAMIC ACID 1,000 MG in 0.9% Normal Saline (100mL Bag) 100 ML 440 MG IV (13:33)
--- NOTE | 2024-03-08 13:33 | RAD_ITS ---
STUDY: X-RAY - LEFT HIP AND FEMUR REASON FOR EXAM: Female, 74 years old. Fracture. TECHNIQUE: 6 fluoroscopic spot films of the left hip and femur. COMPARISON: Left femur radiographs dated 03/07/2024. FINDINGS: There is a non-specific bowel gas pattern. Normal visualized soft tissue structures. Normal visualized left iliac wing. Normal left superior and inferior pubic rami. Normal pubic symphysis. Normal left ischial tuberosity. There is a new intramedullary nail in the left femur with left hip screw and 2 distal interlocking screws, fixating the previously seen proximal left femur fracture. Normal visualized femoral head. Normal acetabulum. Intact left hip joint. RAD/Hip 1 view with Pelvis IMPRESSION: New intramedullary nail in the left femur with left hip screw and 2 distal interlocking screws, fixating the previously seen proximal left femur fracture. Electronically Signed: Don Patino MD at 14:54 EDT ,
--- NOTE | 2024-03-08 14:41 | OP.PCM_ITS ---
Report of Operation Date of Procedure: 03/08/24 Description of Surgical Findings:: Preoperative diagnosis: Left subtrochanteric proximal femur fracture Postoperative diagnosis: Left subtrochanteric proximal femur fracture Procedure: Treatment of subtrochanteric femur fracture with intramedullary nail left femur Surgeon: Alireza Lang DO Anesthesia: General endotracheal Smooth Plater: Rashi Prado CRNA Complications: None Drains: None Estimated blood loss: 300 cc Urinary output: 150 cc via dey IV fluids: 1L crystalloid Specimens: None Surgical implants: Gemma Gamma3 Cephalomedullary Nail 125 degree 10 mm x 380 mm left, 10.5 mm x 85 mm lag screw, Interlocking screws x 2 Surgical indications: This is a 74 F who presents presented to [facility] emergency department after a mechanical fall down 1-2 steps outside of her house yesterday. She slipped onto her left side. She noted immediate pain in her left hip and inability to bear weight. EMS was called and brought the patient to the emergency department where x-rays revealed a left subtrochanteric proximal femur fracture. Denies any head injury, loss consciousness, syncopal or presyncopal symptoms prior to the fall. Denies any antecedent left hip or groin pain. Orthopedics was consulted for surgical recommendations.I recommended cephalomedullary nail fixation of her left subtrochanteric proximal femur fracture. The risks, benefits, alternatives to procedure reviewed with the patient. The risks of the surgery included bleeding, infection, loss of life or limb, malunion, nonunion, damage to vital structures, neurovascular injury, failure of orthopedic hardware, need for additional surgery, persistent pain or disability, risk of anesthesia. The patient expressed understanding of these risks and agreed to proceed with surgery. Blood consent was also obtained. Description of procedure: Patient was seen in preoperative holding area. She was identified by name, medical record number, date of . The operative extremity was marked with a surgical marker. We confirmed informed consent with the patient and questions were answered to her satisfaction. Patient was brought to the operative suite, and general anesthesia was induced on her hospital bed. Endotracheal tube was secured. After adequate anesthesia, patient was transferred to a fracture table with all bony prominences being well-padded. A perineal post was placed to secure the patient on the table. We then applied a ski boot which was well-padded to the operative extremity. The well leg was dropped into extension and secured to the axial post of the fracture table with a pillow and Coban. The left arm was brought across patient's chest with a blanket on her chest. We then performed a closed reduction maneuver with external rotation, traction, internal rotation and adduction. Fluoroscopic images were obtained. Fracture appeared to be acceptably reduced following closed reduction. We then prepped and draped the left lower extremity in normal, sterile orthopedic fashion. A timeout was performed with all parties in attendance in agreement with the side, site, and operation be performed. 2 g Ancef and 1 g IV TXA was administered prior to incision. No concerns were voiced and we elected to proceed. I first used fluoroscopy to harvinder the level of the fracture and planned incision for insertion of the cephalomedullary nail device. In line with the long axis of the femur, 4 fingerbreadths proximal to the tip of the greater trochanter, a full-thickness skin incision was planned.. Skin was sharply incised with 10 blade scalpel, carried into the subcutaneous tissues. The IT band was encountered and split and planned trajectory of the nail placement. The greater trochanter was then able to be palpated digitally. I then placed a threaded guidewire just medial to the tip of the greater trochanter and in the anterior third of it on the lateral. Opening reamer was then placed over top of the guidewire after placement was confirmed on C arm. A ball-tipped guidewire then was passed into the intramedullary canal after reamer was removed. We used C arm to confirm our placement within the bone. We then sequentially reamed to a final diameter of 11.5 mm using flexible reamers. Reduction was again confirmed. We selected her nail to be 380 millimeters x 10 mm diameter. Reamers were removed. Nail was assembled on the back table. We placed it over the ball-tipped guidewire and impacted to an appropriate depth. Rotation was confirmed on the lateral. Drill sleeve was placed through the targeting guide. We drilled the pin for the lag screw at an appropriate position and depth, tip to apex distance less than 25 mm on AP and lateral combined. Depth gauge was used to measure the length of the screw, 90 mm. Prior to drilling, I applied a lateral translation of the distal segment with a bone hook placed to the lag screw incision. I applied a posteriorly directed force along the proximal segment with a ball spike pusher. My clinical medical assistant then held these reduced. We then used the cannulated drill to drill to an appropriate depth. Drill was removed, drill pin left in place. Lag screw was placed over top of the drill pin and tightened to an appropriate depth. Setscrew was then placed and tightened. I then turned my attention distally. Perfect andreafski technique was employed to place 2 interlocking screws distally. These were placed without difficulty in standard fashion and excellent cortical purchase. Final fluoroscopic images were obtained. We irrigated the wounds copiously with normal saline solution. Hemostasis was excellent at this point. We then closed the deeper layers, IT band with 0 Vicryl. Intradermal buried stitches of 2-0 Vicryl were utilized and skin finally reapproximated with skin shaylee. Sterile compression dressing of Xeroform, 4 x 4's, and Tegaderm was applied. Patient tolerated procedure well without complication. She was transferred back to her hospital bed and subsequently to PACU in stable condition. Intraoperative medications: 2 g Ancef IV Post Operative Plan: Weightbearing: Weightbearing as tolerated left lower extremity with a walker Antibiotics: Ancef 2 g x 3 doses postoperatively, 1 dose given preoperatively DVT Prophylaxis: Lovenox to start tomorrow morning Dey: None Dressing: Dry sterile dressing changes daily and as needed for saturation X-Rays: 2 weeks postop in the office Follow-up: 2 weeks post-operatively with me in the office
[2024-03-08 15:18] LABS: Bedside Glucose 157 mg/dL (74-106)
[2024-03-08] MEDS: Lactated Ringers 1,000 ML 15 ML IV (15:29)
[2024-03-08 18:26] LABS: Bedside Glucose 168 mg/dL (74-106)
[2024-03-08] MEDS: Ergocalciferol 1.25 MG (50, 000 UNIT) Capsule PO (18:29)
[2024-03-08] MEDS: Calcium Carbonate 500 MG Tablet PO (18:29)
[2024-03-08] MEDS: oxyCODONE 5 MG Tablet 10 MG PO (19:55)
[2024-03-08] MEDS: Pantoprazole Sodium 40 MG Tablet PO (22:58)
[2024-03-08] MEDS: Acetaminophen 500 MG Tablet 1000 MG PO (22:58)
[2024-03-09] VITALS (8 sets, daily range): BP systolic 100–133; BP diastolic 55–76; PULSE 95–106; RESP 18–20; TEMP 36.6–37.1; O2SAT 90–100; BMI 21.9
[2024-03-09 01:09] LABS: Bedside Glucose 211 mg/dL (74-106)
[2024-03-09] MEDS: oxyCODONE 5 MG Tablet 10 MG PO ×5 (05:57→23:27)
[2024-03-09] MEDS: Enoxaparin 40 MG/0.4 ML Syringe SC (06:11)
[2024-03-09] MEDS: Cefazolin 2 GM in 0.9% Normal Saline (100mL Bag) 100 ML IV ×2 (06:11→14:17)
[2024-03-09] MEDS: Levothyroxine 150 MCG Tablet PO (06:12)
[2024-03-09] MEDS: Acetaminophen 500 MG Tablet 1000 MG PO ×3 (06:12→23:04)
[2024-03-09] MEDS: Acyclovir 200 MG Capsule 400 MG PO ×3 (06:12→23:04)
[2024-03-09 06:43] LABS: Bedside Glucose 137 mg/dL (74-106)
--- NOTE | 2024-03-09 07:16 | PN.HOSP_ITS ---
Reason for Visit Reason for Visit: Diagnoses Type 2 diabetes mellitus with other specified complication (03/07/24) Polyneuropathy, unspecified (03/07/24) Fracture of unspecified part of neck of left femur, initial encounter for closed fracture (03/07/24) Unspecified fall, initial encounter (03/07/24) Subjective Subjective Complains of pain on the right side of her left ankle. Does not recall if her ankle was involved when she fell. Objective Data Objective Data Vital Signs: Vital Signs Temp Pulse Resp BP Pulse Ox O2 Del Method O2 Flow Rate 36.6 C 95 18 115/67 98 Nasal Cannula 2 03/09/24 05:30 03/09/24 05:30 03/09/24 05:30 03/09/24 05:30 03/09/24 05:30 03/09/24 05:30 03/09/24 05:30 Oxygen Flow Rate (L/min) 2 Oxygen Delivery Method Nasal Cannula Weight: 63.3 kg Body Mass Index (BMI) 21.9 Intake & Output: Intake and Output for Last 24 Hours 03/07/24 03/08/24 03/09/24 23:59 23:59 23:59 Intake Total 0 / 0 2112.17 / 2112.17 1010 / 1010 Output Total 1100 / 1100 900 / 900 Balance 0 / 0 1012.17 / 1012.17 110 / 110 Lab / Micro Data 03/08/24 06:10 03/08/24 06:10 Labs: Laboratory Results - last 24 hr 03/08/24 06:10: Sodium 135 L, Potassium 4.2, Chloride 106, Carbon Dioxide 25.0, Anion Gap 4 L, BUN 21 H, Creatinine 0.95, Estim Creat Clear Calc 50.52, Est GFR (MDRD) Af Amer 74, Est GFR (MDRD) Non-Af 61, BUN/Creatinine Ratio 22.2 H, Glucose 185 H, Hemoglobin A1c 6.5 H, Calcium 8.5, Phosphorus 3.5, Magnesium 1.9, Total Bilirubin 0.40, AST 25, ALT 24, Alkaline Phosphatase 77, Total Protein 7.0, Albumin 3.5, Globulin 3.5, Albumin/Globulin Ratio 1.0, Vitamin B12 1027 H, Vitamin D 25-Hydroxy 36.6, TSH 2.94 03/08/24 11:24: POC Glucose 162 H 04/15/24 15:00: POC Glucose 157 H 03/08/24 16:43: POC Glucose 168 H 03/08/24 22:56: POC Glucose 211 H 03/09/24 06:25: POC Glucose 137 H Radiography Diagnostic Testing: Radiology Impression Hip/Pelvis X-Ray 03/08/24 13:33 IMPRESSION: New intramedullary nail in the left femur with left hip screw and 2 distal interlocking screws, fixating the previously seen proximal left femur fracture. Electronically Signed: Don Patino MD at 14:54 EDT Reading Location ID and State: [facility] / [place] , Service support , Physical Exam Const alert and no apparent distress Constitutional Narrative: non-toxic. Extremity Extremity Narrative: edema left medial ankle w slight TTP. Neuro moves all extremities Sensorium / Orientation: awake and alert Assessment & Plan Assessment/Plan (1) Closed fracture of left hip: QUALIFIERS: Encounter type: initial encounter Qualified Code(s): S72.002A - Fracture of unspecified part of neck of left femur, initial encounter for closed fracture (2) Fall: QUALIFIERS: Encounter type: initial encounter Qualified Code(s): W19.XXXA - Unspecified fall, initial encounter (3) Peripheral neuropathy: QUALIFIERS: Peripheral neuropathy type: polyneuropathy, unspecified Qualified Code(s): G62.9 - Polyneuropathy, unspecified (4) Diabetes: QUALIFIERS: Diabetes mellitus complication status: with other specified complication Diabetes mellitus retirement insulin use: without medical terminologist use Diabetes mellitus type: type 2 Qualified Code(s): E11.69 - Type 2 diabetes mellitus with other specified complication PLAN: Plan Left Hip Fracture after Mechanical Fall * s/p Left IM nail * Pain control * Orthopaedics recommending: * Weightbearing: Weightbearing as tolerated left lower extremity with a walker * Antibiotics: Ancef 2 g x 3 doses postoperatively, 1 dose given preoperatively * DVT Prophylaxis: Lovenox to start tomorrow morning * Patel: None * Dressing: Dry sterile dressing changes daily and as needed for saturation * X-Rays: 2 weeks postop in the office * Follow-up: 2 weeks post-operatively with me in the office * 25-OH d level 36.6, start ergocalciferol. * Pain not adequately controlled. Increase oxy 10 to Q4 PRN, add 2 days of PRN ketorolac. Left ankle pain * suspect sprain from fall * Xray of left ankle on my evaluation appears ok. Await on formal read * Ice PRN. Chronic conditions: * Chronic Peripheral Neuropathy; with poor balance and recent increase in frequency of falls likely significantly contributing to #1 with MCV of 104.5 present on admission Continue home medications. * Essential Hypertension - Resume home regimen plus give prn IV Hydralazine for systolic blood pressure > 160 mmHg. * Hypothyroidism; with a history of Juani's thyroiditis and diffuse thyroid goiter - Noted. Check TSH and continue Synthroid as previous. * DM-2; of unknown control on Metformin - ADA diet after ORIF but keep NPO except for sips, ice chips and medications. FSBS q. 6 hours. Check HgbA1c to objectively evaluate quality of diabetic control. Add SSI. * History of tobacco abuse - Tobacco cessation will be strongly encouraged. * History of HSV - Noted. Continue Acyclovir. * History of TIA (2011) - Stable. * RA - stable * History of renal calculi; with subsequent stent and lithotripsy * Depression - Continue home regimen plus give prn Xanax for breakthrough symptoms. * GERD - Resume PPI as previous. * OA; with chronic back pain - Stable. Give Tylenol prn. DVT prophylaxis w enoxaparin. Charges/Coding Visit Charges Inpatient E&M: 32256 Subs Hosp L2
[2024-03-09] MEDS: cycloBENZAPRine HCl 5 MG TABLET PO ×2 (09:02→20:15)
[2024-03-09] MEDS: Calcium Carbonate 500 MG Tablet PO ×3 (09:13→16:20)
[2024-03-09] MEDS: Fluticasone 0.05% 1 SPRAY NASAL.SRY NASAL (09:13)
[2024-03-09] MEDS: Multivitamins,Ther W-Minerals Tablet 1 TABLET PO (09:13)
[2024-03-09] MEDS: buPROPion (XL) 300 MG TABLET.XL PO (09:15)
[2024-03-09] MEDS: Lisinopril 5 MG Tablet PO (09:15)
--- NOTE | 2024-03-09 10:40 | RAD_ITS ---
STUDY: X-RAY - LEFT ANKLE REASON FOR EXAM: Female, 74 years old. Left ankle pain TECHNIQUE: 2 view(s) of the ankle. COMPARISON: None. FINDINGS: Normal visualized distal tibia and fibula. Normal medial and lateral malleoli. Normal tibiotalar articulation and ankle mortise. Talar neck beak. Calcaneal spurs. The visualized subtalar, talonavicular, calcaneocuboid and tarsal articulations are normal. There is evidence of prior Keagan Adela deformity surgical changes. Soft tissue swelling overlying the medial and lateral malleoli. RAD/Ankle 2 Views IMPRESSION: Soft tissue swelling. Calcaneal spurs. Talar neck beak. Electronically Signed: Michael Abdul MD at 14:58 EDT ,
[2024-03-09] MEDS: Insulin Lispro 100 UNIT/ML INSULN.PEN SC ×2 (11:29→16:19)
[2024-03-09 11:40] LABS: Bedside Glucose 172 mg/dL (74-106)
--- NOTE | 2024-03-09 15:38 | PCM.PN.ORT ---
Subjective Subjective Patient seen and examined. Reports left ankle pain. She is unsure if she injured this. She she states she has some shooting pain in her left hip with motion but denies significant pain at rest. Denies fevers, chills, nausea vomiting, chest pain or shortness of breath. Objective Data Objective Data Vital Signs: Vital Signs Temp Pulse Resp BP Pulse Ox O2 Del Method O2 Flow Rate 98.2 F 106 H 18 110/61 90 Room Air 2 03/09/24 14:09 03/09/24 14:09 03/09/24 14:09 03/09/24 14:09 03/09/24 14:09 03/09/24 14:09 03/09/24 05:30 Oxygen Flow Rate (L/min) 2 Oxygen Delivery Method Room Air Weight: 139 lb 8.842 oz Body Mass Index (BMI) 21.9 Intake & Output: Intake and Output for Last 24 Hours 03/07/24 03/08/24 03/09/24 23:59 23:59 23:59 Intake Total 0 / 0 2112.17 / 2112.17 2470 / 2470 Output Total 1100 / 1100 900 / 900 Balance 0 / 0 1012.17 / 1012.17 1570 / 1570 Lab / Micro Data 03/08/24 06:10 03/08/24 06:10 Labs: Laboratory Results - last 24 hr 03/08/24 16:43: POC Glucose 168 H 03/08/24 22:56: POC Glucose 211 H 03/09/24 06:25: POC Glucose 137 H 03/09/24 11:19: POC Glucose 172 H Radiography Diagnostic Testing: Radiology Impression Ankle X-Ray 03/09/24 10:40 IMPRESSION: Soft tissue swelling. Calcaneal spurs. Talar neck beak. Electronically Signed: Michael Abdul MD at 14:58 EDT , Physical Exam Narrative General - A&Ox3, NAD. VSS/AF Left lower extremity -incisional dressing C/D/I. SILT Sural, Saphenous, SPN, DPN, Tibial N. distributions. DP, PT 2+. BCR. DF, PF, EHL 5/5. No calf TTP. 1?2+ pitting edema noted left foot to the proximal tibia. Nontender over the medial or lateral malleoli, ATFL left ankle. No ecchymosis. Assessment & Plan Assessment/Plan (1) Closed fracture of left hip: QUALIFIERS: Encounter type: initial encounter Qualified Code(s): S72.002A - Fracture of unspecified part of neck of left femur, initial encounter for closed fracture PLAN: POD#1 s/p left femur CMN -X-ray reviewed left ankle. No acute fracture. I suspect left foot/ankle pain is due to edema in the left lower extremity likely secondary to post fracture positioning. No obvious signs of ankle sprain. I will order CLYDE hose to help with edema. -Patient has not been out of bed yet. I cannot encourage the patient to ideally eat her dinner out of bed today to encourage mobilization. I suspect patient will need SNF given her poor progress in the first 24 hours. - Pain control - Medicine following for medical management - PT/OT -weightbearing as tolerated left lower extremity - DVT PPX -Lovenox 40 mg subcu daily, CDs, CLYDE hose - Case management - D/C planning
[2024-03-09 16:42] LABS: Bedside Glucose 177 mg/dL (74-106)
[2024-03-09] MEDS: Pantoprazole Sodium 40 MG Tablet PO (23:04)
[2024-03-10 00:47] VITALS: BMI 21.9
[2024-03-10] MEDS: Ketorolac 15 MG/ML Vial IV ×2 (01:43→08:20)
[2024-03-10] MEDS: cycloBENZAPRine HCl 5 MG TABLET PO (01:43)
[2024-03-10 06:01] VITALS: BP 134/68; PULSE 90; RESP 18; TEMP 36.6; O2SAT 95
[2024-03-10] MEDS: Levothyroxine 150 MCG Tablet PO (06:09)
[2024-03-10] MEDS: Acetaminophen 500 MG Tablet 1000 MG PO ×3 (06:09→20:02)
[2024-03-10] MEDS: Acyclovir 200 MG Capsule 400 MG PO ×3 (06:09→20:02)
[2024-03-10] MEDS: Enoxaparin 40 MG/0.4 ML Syringe SC (06:10)
[2024-03-10] MEDS: Insulin Lispro 100 UNIT/ML INSULN.PEN SC ×2 (06:15→11:41)
[2024-03-10 06:43] LABS: Bedside Glucose 165 mg/dL (74-106)
[2024-03-10 07:01] VITALS: O2SAT 99
--- NOTE | 2024-03-10 07:21 | PN.HOSP_ITS ---
Reason for Visit Reason for Visit: Diagnoses Type 2 diabetes mellitus with other specified complication (03/07/24) Polyneuropathy, unspecified (03/07/24) Fracture of unspecified part of neck of left femur, initial encounter for closed fracture (03/07/24) Unspecified fall, initial encounter (03/07/24) Subjective Subjective Still with pain in left hip and ankle. Objective Data Objective Data Vital Signs: Vital Signs Temp Pulse Resp BP Pulse Ox O2 Del Method O2 Flow Rate 36.6 C 90 18 134/68 H 95 Room Air 2 03/10/24 06:01 03/10/24 06:01 03/10/24 06:01 03/10/24 06:01 03/10/24 06:01 03/10/24 06:01 03/09/24 05:30 Oxygen Flow Rate (L/min) 2 Oxygen Delivery Method Room Air Weight: 63.3 kg Body Mass Index (BMI) 21.9 Intake & Output: Intake and Output for Last 24 Hours 03/08/24 03/09/24 03/10/24 23:59 23:59 23:59 Intake Total 2112.17 / 2112.17 2470 / 2710 740 / 740 Output Total 1100 / 1100 1150 / 1400 600 / 600 Balance 1012.17 / 1012.17 1320 / 1310 140 / 140 Lab / Micro Data 03/08/24 06:10 03/08/24 06:10 Labs: Laboratory Results - last 24 hr 03/09/24 11:19: POC Glucose 172 H 03/09/24 16:18: POC Glucose 177 H 03/10/24 06:13: POC Glucose 165 H Radiography Diagnostic Testing: Radiology Impression Ankle X-Ray 03/09/24 10:40 IMPRESSION: Soft tissue swelling. Calcaneal spurs. Talar neck beak. Electronically Signed: Michael Abdul MD at 14:58 EDT , Physical Exam Const alert and no apparent distress HEENT head/scalp atraumatic and moist oral mucous membranes Resp normal respiratory effort Extremity Extremity Narrative: compression stockings in place. slight swelling over left medial maleolus. Assessment & Plan Assessment/Plan (1) Closed fracture of left hip: QUALIFIERS: Encounter type: initial encounter Qualified Code(s): S72.002A - Fracture of unspecified part of neck of left femur, initial encounter for closed fracture (2) Fall: QUALIFIERS: Encounter type: initial encounter Qualified Code(s): W19.XXXA - Unspecified fall, initial encounter (3) Peripheral neuropathy: QUALIFIERS: Peripheral neuropathy type: polyneuropathy, unspecified Qualified Code(s): G62.9 - Polyneuropathy, unspecified (4) Diabetes: QUALIFIERS: Diabetes mellitus complication status: with other specified complication Diabetes mellitus terminal clerk insulin use: without custodial use Diabetes mellitus type: type 2 Qualified Code(s): E11.69 - Type 2 diabetes mellitus with other specified complication PLAN: Plan Left Hip Fracture after Mechanical Fall * s/p Left IM nail * Pain control * Orthopaedics recommending: * Weightbearing: Weightbearing as tolerated left lower extremity with a walker * Antibiotics: Ancef 2 g x 3 doses postoperatively, 1 dose given preoperatively * DVT Prophylaxis: Lovenox to start tomorrow morning * Patel: None * Dressing: Dry sterile dressing changes daily and as needed for saturation * X-Rays: 2 weeks postop in the office * Follow-up: 2 weeks post-operatively with me in the office * 25-OH d level 36.6, start ergocalciferol. * Pain not adequately controlled. Increase oxy 10 to Q4 PRN, add 2 days of PRN ketorolac. Left ankle pain * suspect sprain from fall * Xray of left ankle on my evaluation appears ok. Final read was soft tissue swelling, calcaneal spurs. * Ice PRN. Chronic conditions: * Chronic Peripheral Neuropathy; with poor balance and recent increase in frequency of falls likely significantly contributing to #1 with MCV of 104.5 present on admission Continue home medications. * Essential Hypertension - Resume home regimen plus give prn IV Hydralazine for systolic blood pressure > 160 mmHg. * Hypothyroidism; with a history of Juani's thyroiditis and diffuse thyroid goiter - Noted. Check TSH and continue Synthroid as previous. * DM-2; of unknown control on Metformin - ADA diet after ORIF but keep NPO except for sips, ice chips and medications. FSBS q. 6 hours. Check HgbA1c to objectively evaluate quality of diabetic control. Add SSI. * History of tobacco abuse - Tobacco cessation will be strongly encouraged. * History of HSV - Noted. Continue Acyclovir. * History of TIA (2011) - Stable. * RA - stable * History of renal calculi; with subsequent stent and lithotripsy * Depression - Continue home regimen plus give prn Xanax for breakthrough symptoms. * GERD - Resume PPI as previous. * OA; with chronic back pain - Stable. Give Tylenol prn. DVT prophylaxis w enoxaparin. Charges/Coding Visit Charges Inpatient E&M: 06124 Subs Hosp L1
[2024-03-10 08:15] VITALS: BP 118/69; PULSE 97; RESP 18; TEMP 36.7; O2SAT 93
[2024-03-10] MEDS: Calcium Carbonate 500 MG Tablet PO ×3 (08:20→17:00)
[2024-03-10] MEDS: 0.9% Saline Lock 10 ML Syringe IV (08:21)
[2024-03-10] MEDS: buPROPion (XL) 300 MG TABLET.XL PO (08:21)
[2024-03-10] MEDS: Multivitamins,Ther W-Minerals Tablet 1 TABLET PO (08:21)
[2024-03-10] MEDS: Lisinopril 5 MG Tablet PO (08:21)
--- NOTE | 2024-03-10 11:55 | CASEMGMT ---
RN CORBIN noted therapy eval, in to pt room, pt sitting up in chair in no distress. Discussed pt therapy session, pt states she realizes she cannot return home currently. She is agreeable to SNF. Pt aware that SW will be in to discuss facilities and preferences. Pt denies further questions at this time. Updated SW.
[2024-03-10 12:02] LABS: Bedside Glucose 215 mg/dL (74-106)
--- NOTE | 2024-03-10 13:38 | NURSING ---
All documentation by nursing specialist, Yuriy Winkler, reviewed by community health nursing director, Analisa VÁSQUEZ, RN.
[2024-03-10 14:15] VITALS: BP 117/57; PULSE 95; RESP 16; TEMP 36.1; O2SAT 96
--- NOTE | 2024-03-10 15:46 | CASEMGMT ---
Social Work SW received referral from RNCM that pt will need SNF. SW met with pt and significant other Yoav and introduced self and role of SW. SW reviewed pt's progress with therapy and pt is agreeable that she will need short term rehab prior to return home. A list of SNF providers including quality and resource use data and consistent with the patient?s preferred geographic region, medical needs, and insurance network were provided from the [employer] Guide. Pt preferred provider is [facility]. Referral sent to TCU and SW will await determination of acceptance. SW requested pt continue to review SNF list and make other choices in the event TCU cannot accept. Pt agreeable. Plan: TCU, pending acceptance and precert KULDEEP Rodriguez
--- NOTE | 2024-03-10 16:08 | NURSING ---
Pt's dey catheter was removed around 1030 03/10. Pt has not voided since removal. Pt reports no urge to void. This RN bladder scanned pt for 60ml. Will continue to monitor. Encouraged oral fluid intake, pt voiced understanding
[2024-03-10 16:21] LABS: Bedside Glucose 146 mg/dL (74-106)
--- NOTE | 2024-03-10 17:43 | PN.ORTHO_ITS ---
Subjective Subjective Patient seen and examined. Denies any new complaints. Out of bed with therapy today. Plan is for SNF. Denies fevers or chills no nausea vomiting no chest pain or shortness of breath. Objective Data Objective Data Vital Signs: Vital Signs Temp Pulse Resp BP Pulse Ox O2 Del Method O2 Flow Rate 97 F L 95 16 117/57 L 96 Room Air 2 03/10/24 14:15 03/10/24 14:15 03/10/24 14:15 03/10/24 14:15 03/10/24 14:15 03/10/24 14:15 03/09/24 05:30 Oxygen Flow Rate (L/min) 2 Oxygen Delivery Method Room Air Weight: 139 lb 8.842 oz Body Mass Index (BMI) 21.9 Intake & Output: Intake and Output for Last 24 Hours 03/08/24 03/09/24 03/10/24 23:59 23:59 23:59 Intake Total 2112.17 / 2112.17 2470 / 2710 740 / 740 Output Total 1100 / 1100 1150 / 1400 900 / 900 Balance 1012.17 / 1012.17 1320 / 1310 -160 / -160 Lab / Micro Data 03/08/24 06:10 03/08/24 06:10 Labs: Laboratory Results - last 24 hr 03/10/24 06:13: POC Glucose 165 H 03/10/24 11:39: POC Glucose 215 H 03/10/24 16:03: POC Glucose 146 H Physical Exam Narrative General - A&Ox3, NAD. VSS/AF Left lower extremity -incisional dressing C/D/I. SILT Sural, Saphenous, SPN, DPN, Tibial N. distributions. DP, PT 2+. BCR. DF, PF, EHL 5/5. No calf TTP. Edema appears resolved left lower extremity. Nontender over the medial or lateral malleoli, ATFL left ankle. No ecchymosis. Assessment & Plan Assessment/Plan (1) Closed fracture of left hip: QUALIFIERS: Encounter type: initial encounter Qualified Code(s): S72.002A - Fracture of unspecified part of neck of left femur, initial encounter for closed fracture PLAN: POD#2 s/p left femur CMN -Patient seen and examined. She has been out of bed however progress is slow. Therapy recommending SNF, I agree with this recommendation. I attempted to encourage the patient to work as hard as possible with physical therapy. I suspect her progress will be slowed with her frequent falls prior to fracture and peripheral neuropathy. -Edema in the left lower extremity appears all but resolved with CLYDE hose. - Pain control - Medicine following for medical management - PT/OT -weightbearing as tolerated left lower extremity - DVT PPX -Lovenox 40 mg subcu daily, CDs, CLYDE balderas - Case management - D/C planning. Pre-CERT pending for SNF. Stable for discharge to SNF once pre-CERT obtained from my standpoint. I will sign off at this time. Discharge instructions: Follow-up 2 weeks at [facility] with x-rays. Will plan for staple removal at that time. Continue Lovenox upon discharge x 4 weeks postoperatively. Please do not hesitate to call if any questions or concerns arise. Thank you for this consultation.
--- NOTE | 2024-03-10 18:59 | NURSING ---
Bladder scanned pt for 220ml. Straight cathed pt per orders. Straight cath for 250ml
[2024-03-10 19:49] VITALS: BP 154/76; PULSE 94; RESP 18; TEMP 36.8; O2SAT 95
[2024-03-10] MEDS: oxyCODONE 5 MG Tablet 10 MG PO (19:54)
[2024-03-10 20:00] VITALS: BP 154/76; PULSE 94; RESP 18; TEMP 36.8; O2SAT 95
[2024-03-10] MEDS: Pantoprazole Sodium 40 MG Tablet PO (20:02)
[2024-03-10 22:46] LABS: Bedside Glucose 147 mg/dL (74-106)
[2024-03-11 00:28] VITALS: BMI 22.1
[2024-03-11 02:00] VITALS: BP 133/65; PULSE 92; RESP 18; TEMP 37.1; O2SAT 97
[2024-03-11 02:03] VITALS: BP 133/65; PULSE 92; RESP 18; TEMP 37.1; O2SAT 97
[2024-03-11] MEDS: oxyCODONE 5 MG Tablet 10 MG PO ×2 (02:35→09:44)
[2024-03-11] MEDS: Levothyroxine 150 MCG Tablet PO (06:05)
[2024-03-11] MEDS: Acetaminophen 500 MG Tablet 1000 MG PO (06:05)
[2024-03-11] MEDS: Enoxaparin 40 MG/0.4 ML Syringe SC (06:05)
[2024-03-11] MEDS: Acyclovir 200 MG Capsule 400 MG PO (06:05)
--- NOTE | 2024-03-11 07:34 | PN.HOSP_ITS ---
Reason for Visit Reason for Visit: Diagnoses Type 2 diabetes mellitus with other specified complication (03/07/24) Polyneuropathy, unspecified (03/07/24) Fracture of unspecified part of neck of left femur, initial encounter for closed fracture (03/07/24) Unspecified fall, initial encounter (03/07/24) Subjective Subjective Feeling better. Decreased ankle pain on the left. Objective Data Objective Data Vital Signs: Vital Signs Temp Pulse Resp BP Pulse Ox O2 Del Method O2 Flow Rate 37.1 C 92 18 133/65 H 97 Room Air 2 03/11/24 02:03 03/11/24 02:03 03/11/24 02:03 03/11/24 02:03 03/11/24 02:03 03/11/24 02:45 03/09/24 05:30 Oxygen Flow Rate (L/min) 2 Oxygen Delivery Method Room Air Weight: 64 kg Body Mass Index (BMI) 22.1 Intake & Output: Intake and Output for Last 24 Hours 03/09/24 03/10/24 03/11/24 23:59 23:59 23:59 Intake Total 2470 / 2710 740 / 740 700 / 700 Output Total 1150 / 1400 1150 / 1150 600 / 600 Balance 1320 / 1310 -410 / -410 100 / 100 Lab / Micro Data 03/08/24 06:10 03/08/24 06:10 Labs: Laboratory Results - last 24 hr 03/10/24 11:39: POC Glucose 215 H 03/10/24 16:03: POC Glucose 146 H 03/10/24 21:53: POC Glucose 147 H Physical Exam Const alert and no apparent distress Constitutional Narrative: Up in chair. Initially with her head down on a folded blanket that is on her bedside table but did awake and was pleasant. Had bilateral compression stockings bilaterally but swelling on her left medial ankle appears to be improved. Assessment & Plan Assessment/Plan (1) Closed fracture of left hip: QUALIFIERS: Encounter type: initial encounter Qualified Code(s): S72.002A - Fracture of unspecified part of neck of left femur, initial encounter for closed fracture (2) Fall: QUALIFIERS: Encounter type: initial encounter Qualified Code(s): W19.XXXA - Unspecified fall, initial encounter (3) Peripheral neuropathy: QUALIFIERS: Peripheral neuropathy type: polyneuropathy, unspecified Qualified Code(s): G62.9 - Polyneuropathy, unspecified (4) Diabetes: QUALIFIERS: Diabetes mellitus complication status: with other specified complication Diabetes mellitus shelter insulin use: without shelter use Diabetes mellitus type: type 2 Qualified Code(s): E11.69 - Type 2 diabetes mellitus with other specified complication PLAN: Plan Left Hip Fracture after Mechanical Fall * s/p Left IM nail * Pain control * Orthopaedics recommending: * Weightbearing: Weightbearing as tolerated left lower extremity with a walker * Antibiotics: Ancef 2 g x 3 doses postoperatively, 1 dose given pr eoperatively * DVT Prophylaxis: Lovenox to start tomorrow morning * Patel: None * Dressing: Dry sterile dressing changes daily and as needed for saturation * X-Rays: 2 weeks postop in the office * Follow-up: 2 weeks post-operatively with me in the office * 25-OH d level 36.6, start ergocalciferol. * Pain not adequately controlled. Increase oxy 10 to Q4 PRN, add 2 days of PRN ketorolac. Left ankle pain * suspect sprain from fall * Xray of left ankle on my evaluation appears ok. Final read was soft tissue swelling, calcaneal spurs. * Ice PRN. Chronic conditions: * Chronic Peripheral Neuropathy; with poor balance and recent increase in frequency of falls likely significantly contributing to #1 with MCV of 104.5 present on admission Continue home medications. * Essential Hypertension - Resume home regimen plus give prn IV Hydralazine for systolic blood pressure > 160 mmHg. * Hypothyroidism; with a history of Juani's thyroiditis and diffuse thyroid goiter - Noted. Check TSH and continue Synthroid as previous. * DM-2; of unknown control on Metformin - ADA diet after ORIF but keep NPO e xcept for sips, ice chips and medications. FSBS q. 6 hours. Check HgbA1c to objectively evaluate quality of diabetic control. Add SSI. * History of tobacco abuse - Tobacco cessation will be strongly encouraged. * History of HSV - Noted. Continue Acyclovir. * History of TIA (2011) - Stable. * RA - stable * History of renal calculi; with subsequent stent and lithotripsy * Depression - Continue home regimen plus give prn Xanax for breakthrough symptoms. * GERD - Resume PPI as previous. * OA; with chronic back pain - Stable. Give Tylenol prn. DVT prophylaxis w enoxaparin. Patient to be discharged to the transitional care unit.
[2024-03-11 09:30] VITALS: BP 122/60; PULSE 102; RESP 18; TEMP 36.8; O2SAT 95
[2024-03-11] MEDS: Lisinopril 5 MG Tablet PO (09:38)
[2024-03-11] MEDS: Calcium Carbonate 500 MG Tablet PO ×2 (09:38→11:31)
[2024-03-11] MEDS: buPROPion (XL) 300 MG TABLET.XL PO (09:38)
[2024-03-11] MEDS: Multivitamins,Ther W-Minerals Tablet 1 TABLET PO (09:39)
--- NOTE | 2024-03-11 11:24 | CASEMGMT ---
Addendum entered by Rebekah Valencia 03/11/24 11:52: Social Work Per physician pt is ready for discharge today. Discharge orders faxed to TCU and Sarai in TCU notified. SW met with pt and updated that she has been accepted, precert obtained and physician states pt is ready for dc today. Pt is agreeable. Pt calling her significant other Yoav to update. Disposition: TCU, skilled level of care KULDEEP Rodriguez Original Note: Social Work TCU is able to accept and precert has been obtained. Physician updated. Plan: TCU, when medically ready KULDEEP Rodriguez
--- NOTE | 2024-03-11 11:28 | TREXTCAR_ITS ---
Diet Diet Order/Speech Therapy: 03/09/24 09:04 Diet: Regular - General Is pt able to select menu?: Yes Routine Orders/Code Status Code Status: Full Code Wound(s) LEFT HIP: Wound Type: Surgical Incision Therapies Weight Bearing: Full weight bearing Physical Therapy: Eval and Treat Occupational Therapy: Eval and Treat Problem/Diagnosis (1) Closed fracture of left hip: Status: Acute Code(s): S72.002A - Fracture of unspecified part of neck of left femur, initial encounter for closed fracture (2) Fall: Status: Acute Code(s): W19.XXXA - Unspecified fall, initial encounter (3) Peripheral neuropathy: Status: Acute Code(s): G62.9 - Polyneuropathy, unspecified (4) Diabetes: Status: Acute Code(s): E11.9 - Type 2 diabetes mellitus without complications Plan Left Hip Fracture after Mechanical Fall * s/p Left IM nail * Pain control * Orthopaedics recommending: * Weightbearing: Weightbearing as tolerated left lower extremity with a walker * Antibiotics: Ancef 2 g x 3 doses postoperatively, 1 dose given preoperatively * DVT Prophylaxis: Lovenox to start tomorrow morning * Patel: None * Dressing: Dry sterile dressing changes daily and as needed for saturation * X-Rays: 2 weeks postop in the office * Follow-up: 2 weeks post-operatively with me in the office * 25-OH d level 36.6, start ergocalciferol. * Pain not adequately controlled. Increase oxy 10 to Q4 PRN, add 2 days of PRN ketorolac. Left ankle pain * suspect sprain from fall * Xray of left ankle on my evaluation appears ok. Final read was soft tissue swelling, calcaneal spurs. * Ice PRN. Chronic conditions: * Chronic Peripheral Neuropathy; with poor balance and recent increase in frequency of falls likely significantly contributing to #1 with MCV of 104.5 present on admission Continue home medications. * Essential Hypertension - Resume home regimen plus give prn IV Hydralazine for systolic blood pressure > 160 mmHg. * Hypothyroidism; with a history of Juani's thyroiditis and diffuse thyroid goiter - Noted. Check TSH and continue Synthroid as previous. * DM-2; of unknown control on Metformin - ADA diet after ORIF but keep NPO except for sips, ice chips and medications. FSBS q. 6 hours. Check HgbA1c to objectively evaluate quality of diabetic control. Add SSI. * History of tobacco abuse - Tobacco cessation will be strongly encouraged. * History of HSV - Noted. Continue Acyclovir. * History of TIA (2011) - Stable. * RA - stable * History of renal calculi; with subsequent stent and lithotripsy * Depression - Continue home regimen plus give prn Xanax for breakthrough symptoms. * GERD - Resume PPI as previous. * OA; with chronic back pain - Stable. Give Tylenol prn. DVT prophylaxis w enoxaparin. Patient to be discharged to the transitional care unit. Allergies/Procedures Done in Hospital Allergies No Known Allergies Allergy (Verified 03/08/24 12:38) Type of Care/Length of Stay Estimated LOS: Convalescent Care Less Than 30 days Type of Care Needed: Skilled Rehab Potential: Good Prognosis: Good Additional Orders/Day of Discharge Day of Discharge: 03/11/24 Discharge Plan Admission Admit Date/Time: 03/07/24 20:10 Primary Reason for Your Visit: Left hip fracture Attending Provider: Yoel Bass Primary Care Provider: Praveen Lutz Consulting Providers: Arya Sapp; Alireza Lang Discharge Orders/Prescriptions Prescriptions: New acetaminophen 500 mg Tablet 1,000 mg PO Q8 Qty: 0 0RF calcium carbonate 200 mg calcium (500 mg) Tablet,Chewable 500 mg PO TIDCM Qty: 0 0RF enoxaparin 40 mg/0.4 mL Syringe 40 mg subcut DAILY@0600 28 Days Qty: 4 0RF cyclobenzaprine 5 mg Tablet 5 mg PO TID PRN PRN (Reason: Muscle Spasm) Qty: 0 0RF ergocalciferol (vitamin D2) [Vitamin D2] 1,250 mcg (50,000 unit) Capsule 1,250 mcg PO Q7D Qty: 7 0RF sennosides-docusate sodium [Stool Softener-Stimulant Laxat] 8.6-50 mg Tablet 2 tab PO BID PRN PRN (Reason: Constipation) Qty: 0 0RF oxycodone 5 mg Tablet 10 mg PO Q6H PRN (Reason: pain) 3 Days Qty: 12 0RF Continued Adult One Daily Multivitamin 0.4 mg tablet 1 tab PO DAILY bupropion HCl [Wellbutrin XL] 300 mg tablet extended release 24 hr 300 mg PO QAM metformin 500 mg tablet 1,000 mg PO DAILY omeprazole 40 mg capsule,delayed release(DR/EC) 40 mg PO QHS estradiol 0.01 % (0.1 mg/gram) cream See Rx Instructions vaginal .COMPLEX Qty: 42.5 2RF Rx Instructions: small amount as directed vaginal every other day X 4 weeks then twice a week; mometasone 0.1 % ointment 1 applic topical .COMPLEX Qty: 15 2RF Rx Instructions: 1 applic topical small amount as directed and rub in daily X 1 week prn with symptoms fluticasone propionate 1 SPRAY spray,suspension 1 spray NASAL DAILY loratadine 10 MG capsule 10 mg PO DAILY levothyroxine [Synthroid] 175 mcg tablet 150 mcg PO DAILY metformin 500 mg Tablet 500 mg PO QHS valacyclovir 500 mg tablet 500 mg PO BID lisinopril 5 mg tablet 5 mg PO DAILY Referrals / Follow Up: Praveen Lutz DO [Primary Care Provider] - Within 2 Weeks Disposition Disposition (needs filled in before D/C Order can be placed): [facility] (1) Closed fracture of left hip Qualifiers: Encounter type: initial encounter Qualified Code(s): S72.002A - Fracture of unspecified part of neck of left femur, initial encounter for closed fracture (2) Fall Qualifiers: Encounter type: initial encounter Qualified Code(s): W19.XXXA - Unspecified fall, initial encounter (3) Peripheral neuropathy Qualifiers: Peripheral neuropathy type: polyneuropathy, unspecified Qualified Code(s): G62.9 - Polyneuropathy, unspecified (4) Diabetes Qualifiers: Diabetes mellitus type: type 2 Diabetes mellitus buttermaker helper insulin use: without buttermaker helper use Diabetes mellitus complication status: with other specified complication Qualified Code(s): E11.69 - Type 2 diabetes mellitus with other specified complication
[2024-03-11] MEDS: Insulin Lispro 100 UNIT/ML INSULN.PEN SC (11:31)
--- NOTE | 2024-03-11 11:36 | DS.PCM_ITS ---
Providers Date of Admission: 03/07/24 Primary Care Physician: Dr. Praveen Lutz, DO Consultations 03/07/24 21:58 Consult: Orthopedics Routine Consulting Provider: Alireza Lang Reason for Consult: Left Hip Fracture after Mechanical Fall. EMERGENT Consult: No MD Notified: Yes Date Notified: 03/07/24 Time Notified: 20:14 Method of Notification: ED Physician Initiated Reason For Visit: LEFT HIP FRACTURE AFTER MECHANICAL FALL Diagnosis Discharge Diagnosis (1) Closed fracture of left hip: Status: Acute Code(s): S72.002A - Fracture of unspecified part of neck of left femur, initial encounter for closed fracture Qualifiers: Encounter type: initial encounter Qualified Code(s): S72.002A - Fracture of unspecified part of neck of left femur, initial encounter for closed fracture (2) Fall: Status: Acute Code(s): W19.XXXA - Unspecified fall, initial encounter Qualifiers: Encounter type: initial encounter Qualified Code(s): W19.XXXA - Unspecified fall, initial encounter (3) Peripheral neuropathy: Status: Acute Code(s): G62.9 - Polyneuropathy, unspecified Qualifiers: Peripheral neuropathy type: polyneuropathy, unspecified Qualified Code(s): G62.9 - Polyneuropathy, unspecified (4) Diabetes: Status: Acute Code(s): E11.9 - Type 2 diabetes mellitus without complications Qualifiers: Diabetes mellitus type: type 2 Diabetes mellitus alf insulin use: without keno terminal operator use Diabetes mellitus complication status: with other specified complication Qualified Code(s): E11.69 - Type 2 diabetes mellitus with other specified complication Plan Left Hip Fracture after Mechanical Fall * s/p Left IM nail * Pain control * Orthopaedics recommending: * Weightbearing: Weightbearing as tolerated left lower extremity with a walker * Antibiotics: Ancef 2 g x 3 doses postoperatively, 1 dose given preoperatively * DVT Prophylaxis: Lovenox to start tomorrow morning * Patel: None * Dressing: Dry sterile dressing changes daily and as needed for saturation * X-Rays: 2 weeks postop in the office * Follow-up: 2 weeks post-operatively with me in the office * 25-OH d level 36.6, start ergocalciferol. * Pain not adequately controlled. Increase oxy 10 to Q4 PRN, add 2 days of PRN ketorolac. Left ankle pain * suspect sprain from fall * Xray of left ankle on my evaluation appears ok. Final read was soft tissue swelling, calcaneal spurs. * Ice PRN. Chronic conditions: * Chronic Peripheral Neuropathy; with poor balance and recent increase in frequency of falls likely significantly contributing to #1 with MCV of 104.5 present on admission Continue home medications. * Essential Hypertension - Resume home regimen plus give prn IV Hydralazine for systolic blood pressure > 160 mmHg. * Hypothyroidism; with a history of Juani's thyroiditis and diffuse thyroid goiter - Noted. Check TSH and continue Synthroid as previous. * DM-2; of unknown control on Metformin - ADA diet after ORIF but keep NPO except for sips, ice chips and medications. FSBS q. 6 hours. Check HgbA1c to objectively evaluate quality of diabetic control. Add SSI. * History of tobacco abuse - Tobacco cessation will be strongly encouraged. * History of HSV - Noted. Continue Acyclovir. * History of TIA (2011) - Stable. * RA - stable * History of renal calculi; with subsequent stent and lithotripsy * Depression - Continue home regimen plus give prn Xanax for breakthrough symptoms. * GERD - Resume PPI as previous. * OA; with chronic back pain - Stable. Give Tylenol prn. DVT prophylaxis w enoxaparin. Patient to be discharged to the transitional care unit. Medications at Discharge Home Medications bupropion HCl 300 mg 24 hr tablet, extended release (Wellbutrin XL) 300 mg PO Q AM 11/20/18 multivitamin with minerals-folic acid 0.4 mg tablet (Adult One Daily Multivitamin) 1 tab PO DAILY 11/20/18 fluticasone propionate 50 mcg/actuation nasal spray,suspension 1 spray NASAL DA DASHAWN 06/22/20 loratadine 10 mg capsule 10 mg PO DAILY 06/22/20 metformin 500 mg tablet 1,000 mg PO DAILY 08/04/20 omeprazole 40 mg capsule,delayed release 40 mg PO QHS 10/13/20 levothyroxine 175 mcg tablet (Synthroid) 150 mcg PO DAILY 01/30/22 metformin 500 mg tablet 500 mg PO QHS 06/28/22 estradiol 0.01% (0.1 mg/gram) vaginal cream See Rx Instructions vaginal .COMPLEX #42.5 grams 08/31/23 mometasone 0.1 % topical ointment 1 applic topical .COMPLEX #15 grams 09/03/23 lisinopril 5 mg tablet 5 mg PO DAILY 03/07/24 valacyclovir 500 mg tablet 500 mg PO BID 03/07/24 acetaminophen 500 mg tablet 1,000 mg (2 x 500 mg) PO Q8 #0 tabs 03/11/24 calcium carbonate 500 mg (2.5 x 200 mg calcium (500 mg)) PO TIDCM #0 tabs 03/11/24 cyclobenzaprine 5 mg tablet 5 mg PO TID PRN PRN Muscle Spasm #0 tabs 03/11/24 enoxaparin 40 mg/0.4 mL subcutaneous syringe 40 mg (0.4 mL) subcut DAILY@0600 28 days #4 mL 03/11/24 ergocalciferol (vitamin D2) 1,250 mcg (50,000 unit) capsule (Vitamin D2) 1,250 mcg PO Q7D #7 caps 03/11/24 oxycodone 5 mg tablet 10 mg (2 x 5 mg) PO Q6H PRN pain 3 days #12 tabs 03/11/24 sennosides 8.6 mg-docusate sodium 50 mg tablet (Stool Softener-Stimulant Laxative) 2 tab PO BID PRN PRN Constipation #0 tabs 03/11/24 Hospital Course Summary of Care Provided Minutes Spent on Discharge: 35 Weight / BMI Weight Weight: 64 kg Body Mass Index (BMI) 22.1 ABG / Lab / Microbiology Data 03/08/24 06:10 03/08/24 06:10 Laboratory: Laboratory Results - last 24 hr 03/10/24 11:39: POC Glucose 215 H 03/10/24 16:03: POC Glucose 146 H 03/10/24 21:53: POC Glucose 147 H Meaningful Use Info Meaningful Use Meaningful Use Diagnoses (Choose all that apply): None applicable Ischemic Stroke Statin Dosing Therapy Reference: STATIN DOSE THERAPY REFERENCE: * Patients > 75 years receive moderate or high dose statin therapy. * Patients 75 years or YOUNGER should receive HIGH intensity statin dose unless contraindicated. You will be required to document reason for non-treatment if statin daily dose does not meet guidelines. HIGH DOSE STATIN THERAPY DAILY Atorvastatin > than or = to 40 mg Rosuvastatin > than or = to 20 mg Amlodipine + Atorvastatin > than or = to 2.5/40 mg Ezetimibe + Simvastatin 10/80 mg Simvastatin 80mg Discharge Plan Admission Admit Date/Time: 03/07/24 20:10 Primary Reason for Your Visit: Left hip fracture Attending Provider: Yoel Bass Primary Care Provider: Praveen Lutz Consulting Providers: Arya Sapp; Alireza Lang Discharge Orders/Prescriptions Prescriptions: New acetaminophen 500 mg Tablet 1,000 mg PO Q8 Qty: 0 0RF calcium carbonate 200 mg calcium (500 mg) Tablet,Chewable 500 mg PO TIDCM Qty: 0 0RF enoxaparin 40 mg/0.4 mL Syringe 40 mg subcut DAILY@0600 28 Days Qty: 4 0RF cyclobenzaprine 5 mg Tablet 5 mg PO TID PRN PRN (Reason: Muscle Spasm) Qty: 0 0RF ergocalciferol (vitamin D2) [Vitamin D2] 1,250 mcg (50,000 unit) Capsule 1,250 mcg PO Q7D Qty: 7 0RF sennosides-docusate sodium [Stool Softener-Stimulant Laxat] 8.6-50 mg Tablet 2 tab PO BID PRN PRN (Reason: Constipation) Qty: 0 0RF oxycodone 5 mg Tablet 10 mg PO Q6H PRN (Reason: pain) 3 Days Qty: 12 0RF Continued Adult One Daily Multivitamin 0.4 mg tablet 1 tab PO DAILY bupropion HCl [Wellbutrin XL] 300 mg tablet extended release 24 hr 300 mg PO QAM metformin 500 mg tablet 1,000 mg PO DAILY omeprazole 40 mg capsule,delayed release(DR/EC) 40 mg PO QHS estradiol 0.01 % (0.1 mg/gram) cream See Rx Instructions vaginal .COMPLEX Qty: 42.5 2RF Rx Instructions: small amount as directed vaginal every other day X 4 weeks then twice a week; mometasone 0.1 % ointment 1 applic topical .COMPLEX Qty: 15 2RF Rx Instructions: 1 applic topical small amount as directed and rub in daily X 1 week prn with symptoms fluticasone propionate 1 SPRAY spray,suspension 1 spray NASAL DAILY loratadine 10 MG capsule 10 mg PO DAILY levothyroxine [Synthroid] 175 mcg tablet 150 mcg PO DAILY metformin 500 mg Tablet 500 mg PO QHS valacyclovir 500 mg tablet 500 mg PO BID lisinopril 5 mg tablet 5 mg PO DAILY Referrals / Follow Up: Praveen Lutz DO [Primary Care Provider] - Within 2 Weeks Disposition Disposition (needs filled in before D/C Order can be placed): [facility] Charges/Coding Visit Charges Inpatient E&M: 54775 Disch Hosp >30min
--- NOTE | 2024-03-11 13:17 | PHA.DC.MR.R ---
Pharmacy PR Med Reconciliation Pharmacy Service has performed discharge medication reconciliation for this patient upon transfer to TCU The patient's discharge medication list was reviewed for discrepancies and discrepancies were resolved. Medications at Discharge Home Medications bupropion HCl 300 mg 24 hr tablet, extended release (Wellbutrin XL) 300 mg PO QAM 11/20/18 multivitamin with minerals-folic acid 0.4 mg tablet (Adult One Daily Multivitamin) 1 tab PO DAILY 11/20/18 fluticasone propionate 50 mcg/actuation nasal spray,suspension 1 spray NASAL DAILY 06/22/20 loratadine 10 mg capsule 10 mg PO DAILY 06/22/20 metformin 500 mg tablet 1,000 mg PO DAILY 08/04/20 omeprazole 40 mg capsule,delayed release 40 mg PO QHS 10/13/20 levothyroxine 175 mcg tablet (Synthroid) 150 mcg PO DAILY 01/30/22 metformin 500 mg tablet 500 mg PO QHS 06/28/22 estradiol 0.01% (0.1 mg/gram) vaginal cream See Rx Instructions vaginal .COMPLEX #42.5 grams 07/24/23 mometasone 0.1 % topical ointment 1 applic topical .COMPLEX #15 grams 09/03/23 lisinopril 5 mg tablet 5 mg PO DAILY 03/07/24 valacyclovir 500 mg tablet 500 mg PO BID 03/07/24 acetaminophen 500 mg tablet 1,000 mg (2 x 500 mg) PO Q8 #0 tabs 03/11/24 calcium carbonate 500 mg (2.5 x 200 mg calcium (500 mg)) PO TIDCM #0 tabs 03/11/24 cyclobenzaprine 5 mg tablet 5 mg PO TID PRN PRN Muscle Spasm #0 tabs 03/11/24 enoxaparin 40 mg/0.4 mL subcutaneous syringe 40 mg (0.4 mL) subcut DAILY@0600 28 days #4 mL 03/11/24 ergocalciferol (vitamin D2) 1,250 mcg (50,000 unit) capsule (Vitamin D2) 1,250 mcg PO Q7D #7 caps 03/11/24 oxycodone 5 mg tablet 10 mg (2 x 5 mg) PO Q6H PRN pain 3 days #12 tabs 03/11/24 sennosides 8.6 mg-docusate sodium 50 mg tablet (Stool Softener-Stimulant Laxative) 2 tab PO BID PRN PRN Constipation #0 tabs 03/11/24
[2024-03-11 13:51] LABS: Bedside Glucose 145 mg/dL (74-106)
[2024-03-11 13:51] LABS: Bedside Glucose 225 mg/dL (74-106)
== END 2024-03-11 13:35 | disposition skilled nursing facility (03) | DRG 482 ==
LOC: ED 19:51 → MS3 20:24
PROVIDERS: Anesthesiology; Student in an Organized Health Care Education/Training Program; Admitting Provider Internal Medicine; Emergency Provider Emergency Medicine; PCP Family Medicine
PROC: 0QS736Z Reposition Left Upper Femur with Intramedullary Internal Fixation Device, Percutaneous Approach (ICD-10-PCS; CPT 27245; principal; 2024-03-08 12:30)
DX: S72.22XD Displaced subtrochanteric fracture of left femur, subsequent encounter for closed fracture with routine healing (principal); E03.9 Hypothyroidism, unspecified; E11.42 Type 2 diabetes mellitus with diabetic polyneuropathy; M06.9 Rheumatoid arthritis, unspecified; F32.A Depression, unspecified; I10 Essential (primary) hypertension; K21.9 Gastro-esophageal reflux disease without esophagitis; M19.90 Unspecified osteoarthritis, unspecified site; M77.30 Calcaneal spur, unspecified foot; W01.0XXA Fall on same level from slipping, tripping and stumbling without subsequent striking against object, initial encounter; F17.290 Nicotine dependence, other tobacco product, uncomplicated; S93.402A Sprain of unspecified ligament of left ankle, initial encounter; Y93.01 Activity, walking, marching and hiking; Y92.008 Other place in unspecified non-institutional (private) residence as the place of occurrence of the external cause; Z79.899 Other long term (current) drug therapy; Z79.890 Hormone replacement therapy; Z79.51 Long term (current) use of inhaled steroids; Z79.84 Long term (current) use of oral hypoglycemic drugs; Y92.480 Sidewalk as the place of occurrence of the external cause; R29.6 Repeated falls
CPT/HCPCS: 36415; 71045; 72170; 73501; 73552; 73600; 76000; 80048; 80053; 82306; 82607; 82746; 82962; 83036; 83735; 84100; 84443; 84484; 85025; 86850; 86900; 86901; 93005; 97162; 97166; 97530; 97535; 99283; C1776; J7030; J7040; J7120; A4216; J2405

== ENCOUNTER 2024-03-11 13:43 | Inpatient (IN) | payer MEDICARE, SELFPAY ==
[2024-03-11 13:51] VITALS: BP 142/58; PULSE 104; RESP 18; TEMP 36.7; O2SAT 91; BMI 22.4
[2024-03-11 15:30] VITALS: PULSE 104; RESP 18; O2SAT 91
[2024-03-11] MEDS: Acyclovir 200 MG Capsule 400 MG PO ×2 (15:42→21:18)
[2024-03-11] MEDS: Acetaminophen 500 MG Tablet 1000 MG PO ×2 (15:43→21:18)
--- NOTE | 2024-03-11 16:37 | NURSING ---
PT ON BED SIDE COMMODE IN BATH ROOM. PT CALLED WHEN DONE . WENT TO GET PT OUT OF BATH ROOM AND FOUND PT ON REGULAR COMMODE. ASKED PT HOW SHE GOT THERE, PT STATED I JUST GOT UP AND SAT DOWN ON TOILET. THIS NURSE EDUCATED PT WHEN SHE WAS FIRST ADMITTED TODAY ON CALLING FOR HELP AND EDUCATED PT AGAIN. WILL BE NOTIFIED.
[2024-03-11] MEDS: metFORMIN HCl 500 MG Tablet PO (18:17)
[2024-03-11] MEDS: Calcium Carbonate 500 MG Tablet PO (18:18)
[2024-03-11] MEDS: oxyCODONE 5 MG Tablet 10 MG PO (19:38)
[2024-03-11] MEDS: cycloBENZAPRine HCl 5 MG TABLET PO (20:44)
[2024-03-11] MEDS: Pantoprazole Sodium 40 MG Tablet PO (21:18)
[2024-03-11] MEDS: 0.9% Saline Lock 10 ML Syringe IV (21:20)
--- NOTE | 2024-03-11 22:00 | HP.PCM_ITS ---
HPI - General General Date of Admission: 03/11/24 Date of Service: 03/11/24 Chief Complaint: Here for rehabilitation. HPI Narrative 03/07/2024 IMAN HICKS, is a 74 Female who presents to [facility] ED with lower extremity injury. Left hip pain, Left leg pain after fall. Walking sidewalk, tripped/slipped, fell. Unable to stand or bear weight afterwards. No LOC, no head injury. Morphine, Zofran given. X-ray showed left hip fracture. 03/07/2024 Admit [facility]. Prepare for surgery. 03/08/2024 Dr. Lang performed left femur IM nail fixation. 03/09/2024 WBAT. Ancef given perioperatively. Lovenox for DVT prophylaxis. X-ray left ankle for left ankle pain negative. 03/10/2024 Left hip, Left ankle pain, treated with Oxycodone, Toradol. Add Vitamin D for Vitamin D deficiency. 03/11/2024 Feeling better, left ankle pain decreased. 03/11/2024 Admit to TCU with debility, here for rehabilitation, strengthening, prior to discharge home alone. [facility] Medical History (Updated 03/11/24 @ 22:[address] Moise Glez MD) Alcohol use Anxiety and depression Arthritis Back pain due to injury Back problem Carpal tunnel syndrome Cataracts, bilateral Easy bruising GERD (gastroesophageal reflux disease) Goiter H/O: pneumonia History of stress test HSV (herpes simplex virus) infection Hypertension Hypothyroidism Kidney stones Left renal stone Leg cramps Neuropathy Recurrent UTI Rheumatoid arthritis Seasonal allergies Smoker Stress incontinence Stroke/cerebrovascular accident Syncope TIA (transient ischemic attack) Type 2 diabetes mellitus Vision problems Home Medications bupropion HCl 300 mg 24 hr tablet, extended release (Wellbutrin XL) 300 mg PO QAM depression 11/20/18 [History Last Taken 07/21/20 05:15] multivitamin with minerals-folic acid 0.4 mg tablet (Adult One Daily Multivitamin) 1 tab PO DAILY vitamin 11/20/18 [History Last Taken Unknown] fluticasone propionate 50 mcg/actuation nasal spray,suspension 1 spray NASAL DAILY allergies 06/22/20 [History Last Taken Unknown] loratadine 10 mg capsule 10 mg PO DAILY allergie 06/22/20 [History Last Taken Unknown] metformin 500 mg tablet 1,000 mg PO DAILY diabetes 08/04/20 [History Last Taken Unknown] omeprazole 40 mg capsule,delayed release 40 mg PO QHS acid reflux 10/13/20 [History Last Taken 02/04/22] levothyroxine 175 mcg tablet (Synthroid) 150 mcg PO DAILY hypothyroid 01/30/22 [History Last Taken 07/04/22] metformin 500 mg tablet 500 mg PO QHS diabetes 06/28/22 [History Last Taken Unknown] estradiol 0.01% (0.1 mg/gram) vaginal cream See Rx Instructions vaginal .COMPLEX vaginitis #42.5 grams 07/24/23 [Rx Last Taken Unknown] mometasone 0.1 % topical ointment 1 applic topical .COMPLEX ? #15 grams 09/03/23 [Rx Last Taken Unknown] lisinopril 5 mg tablet 5 mg PO DAILY BP 03/07/24 [History Last Taken Unknown] valacyclovir 500 mg tablet 500 mg PO BID antibiotic 03/07/24 [History Last Taken Unknown] acetaminophen 500 mg tablet 1,000 mg (2 x 500 mg) PO Q8 pain #0 tabs 03/11/24 [Rx Last Taken Unknown] calcium carbonate 500 mg (2.5 x 200 mg calcium (500 mg)) PO TIDCM acid reflux/indigestion #0 tabs 03/11/24 [Rx Last Taken Unknown] cyclobenzaprine 5 mg tablet 5 mg PO TID PRN PRN Muscle Spasm #0 tabs 03/11/24 [Rx Last Taken Unknown] enoxaparin 40 mg/0.4 mL subcutaneous syringe 40 mg (0.4 mL) subcut DAILY@0600 blood thinner/post surgery 28 days #4 mL 03/11/24 [Rx Last Taken Unknown] ergocalciferol (vitamin D2) 1,250 mcg (50,000 unit) capsule (Vitamin D2) 1,250 mcg PO Q7D supplement #7 caps 03/11/24 [Rx Last Taken Unknown] oxycodone 5 mg tablet 10 mg (2 x 5 mg) PO Q6H PRN pain (scale score 6-10) 3 days #12 tabs 03/11/24 [Rx Last Taken Unknown] sennosides 8.6 mg-docusate sodium 50 mg tablet (Stool Softener-Stimulant Laxative) 2 tab PO BID PRN PRN Constipation #0 tabs 03/11/24 [Rx Last Taken Unknown] Allergy/AdvReac Type Severity Reaction Status Date / Time No Known Allergies Allergy Verified 03/08/24 12:38 Family History Mother Cancer Father Diabetes Heart disease Sister Diabetes Surgical History History of carpal tunnel surgery History of colonoscopy History of foot surgery History of lithotripsy Social History (Updated 03/11/24 @ 22:[address] Moise Glez MD) household members: none housing: house number of children: 0 current occupational status: retired Smoking Status: Current every day smoker tobacco type: cigarettes alcohol intake: current alcohol intake frequency: holidays/special occasions only substance use type: does not use seatbelt use: always do you feel safe at home: Yes additional social history: ROS Constitutional Constitutional: Denies chills, fever(s) or weight gain ENT HEENT: Denies headache(s), nasal congestion or nasal discharge Cardiovascular Cardiovascular: Denies chest pain or palpitations Respiratory/Chest Respiratory/Chest: Denies cough, excessive phlegm production or shortness of breath with exertion Gastrointestinal Gastrointestinal: Denies abdominal pain, nausea or vomiting Genitourinary Genitourinary: Denies dysuria Musculoskeletal Musculoskeletal: Reports other Details: Left hip pain. ; Denies joint pain or joint swelling Integumentary Integumentary: Denies rash or wounds Neurologic Neurologic: Denies focal weakness, numbness or tingling Psychiatric Psychiatric: Denies anxiety, auditory hallucinations, depression, homicidal ideation or suicidal ideation Vital Signs Vital Signs Vital Signs: 03/11/24 13:51 03/11/24 15:30 Temperature 98.1 F Temperature Source Temporal Pulse Rate 104 H 104 H Pulse Rhythm Regular Pulse Strength Normal (2+) Respiratory Rate 18 18 Respiratory Effort Normal Respiratory Depth Normal Respiratory Pattern Normal Blood Pressure 142/58 H Blood Pressure Mean 86 Pulse Ox 91 91 Oxygen Delivery Method Room Air Room Air Weight Weight: 64.92 kg Body Mass Index (BMI) 22.4 Physical Exam Const alert General Appearance: cooperative HEENT normocephalic Eyes PERRL and EOMs intact bilaterally Neck supple, no JVD and no carotid bruits Resp normal respiratory effort, normal air movement and clear to auscultation bilaterally Cardio regular rate and regular rhythm GI normal to inspection, nondistended, normoactive bowel sounds, non-tender and non-distended Extremity normal capillary refill General Extremity: Negative for edema Skin no rashes or lesions noted General Skin Exam: no breakdown Psych affect normal Appearance: appropriate Assessment & Plan Assessment/Plan (1) Debility: (2) Fall: QUALIFIERS: Encounter type: initial encounter Qualified Code(s): W19.XXXA - Unspecified fall, initial encounter (3) Closed fracture of left hip: QUALIFIERS: Encounter type: initial encounter Qualified Code(s): S72.002A - Fracture of unspecified part of neck of left femur, initial encounter for closed fracture (4) Diabetes mellitus type 2 in nonobese: (5) Depression: (6) Allergic rhinitis: (7) GERD (gastroesophageal reflux disease): (8) Hypothyroidism: (9) Atrophic vaginitis: (10) Essential (primary) hypertension: (11) HSV (herpes simplex virus) infection: PLAN: Plan 74 year old female with below past medical history hospitalized for left hip fracture, underwent left femur IM nail fixation 03/08/[address] Lang, admitted to TCU with debility, here for rehabilitation, strengthening, prior to discharge home alone. * Debility - PT/OT. * Cognition - ST. * Pain - Tylenol 1000mg q8, Oxycodone 10mg q4 prn pain (6-10). * Bowel - senna/colace 2 tablets bid, Magnesium citrate 300ml daily prn. * Adult immunization - Administer pneumonia vaccine, covid vaccine, flu vaccine as appropriate. * DVT prophylaxis - Lovenox 40mg sc daily. * HSV - Acyclovir 400mg tid. * Depression - Bupropion XL 300mg qam. * GERD - Pantoprazole 40mg qhs, TUMS 500mg po tidcm. * Muscle spasm - Flexeril 5mg tid prn. * Vitamin D deficiency - Vitamin D 1.25mg qweek. * Allergic rhinitis - Flonase 1 spray nasal daily, Loratadine 10mg daily. * Hypothyroidism - Levothyroxine 150mcg daily. * Hypertension - Lisinopril 5mg daily. * Diabetes Mellitus II - Metformin 1000mg qam, 500mg qpm. * Nutrition - MVI 1 tablet daily. * Dry mouth - Biotene 5x/day prn.
--- NOTE | 2024-03-11 23:55 | NURSING ---
Pt voided 150ml in bed monreal, bladder scanned after for 395ml. Straight cathed for 400ml. Pt donna. well.
[2024-03-12] MEDS: oxyCODONE 5 MG Tablet 10 MG PO ×4 (04:58→21:12)
[2024-03-12 05:53] LABS: Absolute Lymphocyte Count 0.89 X10^3/uL (0.83-4.51); Basophil# 0.02 X10^3/uL; Basophil% 0.3 % (0-1); Eosinophil# 0.46 X10^3/uL; Eosinophils% 6.6 % (0-5); Hematocrit 23.2 % (37-47); Hemoglobin 7.4 g/dL (12.0-15.0); Lymphocyte # 0.89 X10^3/ul (0.83-4.51); Lymphocyte % 12.8 % (19-41); Mean Corp Hgb Conc 31.9 g/dL (32-36); Mean Corpuscular Hgb 33.8 pg (27.0-32.0); Mean Corpuscular Volume 105.9 fL (81-99); Mean Platelet Vol. 9.6 fl (6.2-12.0); Monocyte# 0.58 X10^3/uL; Monocyte% 8.3 % (0-10); NRBC Flagged by Analyzer 0 % (0-5); Neutrophil # 4.97 X10^3/uL (2.7-7.7); Neutrophil % 71.3 % (47-70); Platelet Count 179 K/mm3 (150-450); RBC Distribution Width CV 13.6 % (11.6-14.6); RBC Distribution Width SD 52.1 fl (35.1-43.9); Red Blood Count 2.19 M/mm3 (4.2-5.4)
[2024-03-12] MEDS: Acetaminophen 500 MG Tablet 1000 MG PO ×3 (06:04→21:10)
[2024-03-12] MEDS: Enoxaparin 40 MG/0.4 ML Syringe SC (06:04)
[2024-03-12] MEDS: Levothyroxine 150 MCG Tablet PO (06:04)
[2024-03-12] MEDS: Acyclovir 200 MG Capsule 400 MG PO ×3 (06:04→21:10)
[2024-03-12 06:12] LABS: Bedside Glucose 156 mg/dL (74-106)
[2024-03-12 06:16] LABS: Anion Gap 3 (5-15); BUN 25 mg/dL (7-18); BUN/Creat Ratio 25.7 RATIO (10-20); Calcium,Total 8.6 mg/dL (8.5-10.1); Chloride 110 mmol/L (98-107); Creatinine, Serum 0.97 mg/dL (0.55-1.02); EST Glomerular Filtration Rate 60 mL/min (>60); Est Glom Filt Rate - Afr Amer 72 mL/min (>60); Estimated Creatinine Clearance 49.48 ml/min; Glucose 161 mg/dL (74-106); Potassium 3.6 mmol/L (3.5-5.1); Sodium Level 140 mmol/L (136-145)
[2024-03-12] MEDS: Saliva Substitute 237 ML BOTTLE 15 ML MUCOUS MEM ×2 (06:34→21:17)
--- NOTE | 2024-03-12 06:43 | NURSING ---
Pt stated her bladder felt full this morning and was incontinent of a moderate amount of urine in brief, bladder scanned for 585. Straight cathed per order for 600. Urine is clear and yellow in color. Pt denies any burning or discomfort with voiding.
--- NOTE | 2024-03-12 07:31 | NURSING ---
HGB 7.4, dr rico ordered 2 units blood to be given. faxed order & lab to infusion center
[2024-03-12] MEDS: Calcium Carbonate 500 MG Tablet PO ×3 (08:39→16:55)
[2024-03-12] MEDS: Multivitamins,Ther W-Minerals Tablet 1 TABLET PO (08:39)
[2024-03-12] MEDS: metFORMIN HCl 500 MG Tablet 1000 MG PO (08:39)
[2024-03-12] MEDS: Loratadine 10 MG Tablet PO (08:39)
[2024-03-12] MEDS: Lisinopril 5 MG Tablet PO (08:40)
[2024-03-12] MEDS: buPROPion (XL) 300 MG TABLET.XL PO (08:40)
[2024-03-12] MEDS: Senna/Docusate Sodium 1 Tablet 2 TABLET PO ×2 (08:43→21:11)
[2024-03-12] MEDS: 0.9% Saline Lock 10 ML Syringe IV (08:46)
[2024-03-12 10:00] VITALS: O2SAT 93
--- NOTE | 2024-03-12 10:45 | NURSING ---
Nurse Charge Rn Note; Activity Asset: Naseem Guallpa is independent in her choice of daily activities. Her significant other will bring in items she may need. She will watch tv, read and use her phone when not resting or w/therapy. She stated she has had a harder time focusing and used to do word puzzles but not much anymore. Staff will continue to remind her of weekly activities and respect her right to say no.
--- NOTE | 2024-03-12 12:49 | PCM.PN.DRR ---
Documented by User: Lelo Koch 03/12/24 13:07 TCU RX Drug Regimen Review Subjective/Objective Subjective/Objective: Subjective: TCU Admission. 74 YOF presented to the ER with lower extremity injury. Hospitalized for left hip fracture, underwent left femur IM nail fixation 03/08/[address] Lang. Admitted to TCU with debility for strengthening and rehabilitation. Objective: Allergies No Known Allergies Allergy (Verified 03/08/24 12:38) Current Medications Generic Name Dose Route Start Last Admin Trade Name Freq PRN Reason Stop Dose Admin Acetaminophen 1,000 mg 03/11/24 14:00 03/12/24 06:04 Acetaminophen 500 Mg Tablet PO 1,000 mg Q8 JOLYNN Administration Acyclovir 400 mg 03/11/24 14:00 03/12/24 06:04 Acyclovir 200 Mg Capsule PO 400 mg TID JOLYNN Administration Bupropion HCl 300 mg 03/12/24 10:00 03/12/24 08:40 Bupropion (Xl) 300 Mg Tablet.Xl PO 300 mg QAM JOLYNN Administration Calcium Carbonate 500 mg 03/11/24 17:45 03/12/24 08:39 Calcium Carbonate 500 Mg Tablet PO 500 mg TIDCM JOLYNN Administration Cyclobenzaprine HCl 5 mg 03/11/24 13:56 03/11/24 20:44 Cyclobenzaprine Hcl 5 Mg Tablet PO 5 mg TID PRN PRN Administration Muscle Spasm Enoxaparin Sodium 40 mg 03/12/24 06:00 03/12/24 06:04 Enoxaparin 40 Mg/0.4 Ml Syringe SC 40 mg DAILY@0600 [facility] Administration Ergocalciferol 1.25 mg 03/15/24 10:00 Ergocalciferol 1.25 Mg (50, 000 Unit) Capsule PO Q7D [facility] Fluticasone Propionate 1 spray 03/12/24 10:00 03/12/24 08:38 Fluticasone 0.05% 1 [place] Nasal.Sry NASAL Not Given DAILY [facility] Levothyroxine Sodium 150 mcg 03/12/24 06:00 03/12/24 06:04 Levothyroxine 150 Mcg Tablet PO 150 mcg DAILY@0600 [facility] Administration Lisinopril 5 mg 03/12/24 10:00 03/12/24 08:40 Lisinopril 5 Mg Tablet PO 5 mg DAILY JOLYNN Administration Protocol Loratadine 10 mg 03/12/24 10:00 03/12/24 08:39 Loratadine 10 Mg Tablet PO 10 mg DAILY JOLYNN Administration Magnesium Citrate 300 ml 03/11/24 22:16 Magnesium Citrate 300 Ml PO DAILY PRN PRN Constipation Metformin HCl 1,000 mg 03/12/24 08:00 03/12/24 08:39 Metformin Hcl 500 Mg Tablet PO 1,000 mg DAILYCM JOLYNN Administration Metformin HCl 500 mg 03/11/24 17:00 03/11/24 18:17 Metformin Hcl 500 Mg Tablet PO 500 mg DINNER JOLYNN Administration Multivitamins/Minerals 1 tablet 03/12/24 08:00 03/12/24 08:39 Multivitamins,Ther W-Minerals Tablet PO 1 tablet BREAKFAST JOLYNN Administration Oxycodone HCl 10 mg 03/11/24 22:17 03/12/24 10:47 Oxycodone 5 Mg Tablet PO 10 mg Q4H PRN PRN Administration pain 6-10 Pantoprazole Sodium 40 mg 03/11/24 22:00 03/11/24 21:18 Pantoprazole Sodium 40 Mg Tablet PO 40 mg QHS JOLYNN Administration Saliva Substitute 15 ml 03/11/24 17:12 03/12/24 06:34 Saliva Substitute 237 Ml Bottle MUCOUS MEM 15 ml 5X/DAY PRN Administration DRY MOUTH Senna/Docusate Sodium 2 tablet 03/12/24 10:00 03/12/24 08:43 Senna/Docusate Sodium 1 Tablet PO 2 tablet BID JOLYNN Administration Sodium Chloride 10 - 40 ml 03/11/24 14:09 03/12/24 08:46 0.9% Saline Lock 10 Ml Syringe IV 10 ml UD PRN Administration SALINE FLUSH Tuberculin PPD 0.1 ml 03/19/24 10:00 Tuberculin,Purif.Prot.Deriv. 50 Tu/Ml Vial ID 03/19/24 10:01 X1 ONE Problem List (Updated 03/11/24 @ 22:[address] Moise Glez MD) Essential (primary) hypertension (Acute) Hypothyroidism (Acute) GERD (gastroesophageal reflux disease) (Acute) Allergic rhinitis (Acute) Depression (Acute) Diabetes mellitus type 2 in nonobese (Acute) Debility (Acute) Closed fracture of left hip (Acute) Fall (Acute) Atrophic vaginitis (Acute) HSV (herpes simplex virus) infection (Acute) Vital Signs Temp Pulse Resp BP Pulse Ox O2 Del Method 98.1 F 104 H 18 142/58 H 91 Room Air 03/11/24 13:51 03/11/24 15:30 03/11/24 15:30 03/11/24 13:51 03/11/24 15:30 03/11/24 15:30 Oxygen Delivery Method Room Air Weight: 64.92 kg Body Mass Index (BMI) 22.4 Sodium 140 mmol/L (136-145) 03/12/24 04:57 Potassium 3.6 mmol/L (3.5-5.1) 03/12/24 04:57 Chloride 110 mmol/L (98-107) H 03/12/24 04:57 Carbon Dioxide 27.0 mmol/L (21.0-32.0) 03/12/24 04:57 Anion Gap 3 (5-15) L 03/12/24 04:57 BUN 25 mg/dL (7-18) H 03/12/24 04:57 Creatinine 0.97 mg/dL (0.55-1.02) 03/12/24 04:57 Est GFR (MDRD) Af Amer 72 mL/min (>60) 03/12/24 04:57 Est GFR (MDRD) Non-Af 60 mL/min (>60) 03/12/24 04:57 BUN/Creatinine Ratio 25.7 RATIO (10-20) H 03/12/24 04:57 Glucose 161 mg/dL (74-106) H 03/12/24 04:57 Assessment/Plan: 1. Pain: acetaminophen 1000mg PO Q8 and oxycodone 10mg PO Q4H PRN pain 6-10. Resident has had 2 does for pain scores of 6 and 7 in the hip/knee/back. Please continue to monitor for increased pain, PRN usage, constipation and respiratory depression. 2. Bowel: senna/docusate 2T PO BID and magnesium citrate 300mL PO daily PRN constipation. No PRN doses have been given. No documented bowel movements at this time. Please continue to monitor for constipation, diarrhea and PRN usage. 3. DVT prophylaxis: enoxaparin 40mg SC daily. Please continue to monitor for S/S of bleeding/DVT, platelets (last 179,000), hemoglobin (last 7.4g/dL) and renal function. 4. GERD: pantoprazole 40mg PO QHS and calcium carbonate 500mg PO TIDCM. Please continue to monitor for S/S of GERD, diarrhea (BEERs medication) and calcium (last 8.6mg/dL). 5. Hypothyroidism: levothyroxine 150mcg PO daily. Please continue to monitor for S/S of hypothyroidism and TSH (last 03/08/24). 6. Hypertension: lisinopril 5mg PO daily. Please continue to monitor BP (last 142/58), potassium (last 3.6mmol/L), SCr (last 0.97mg/dL) and cough. 7. Diabetes mellitus II: metformin 1000mg PO QAM and 500mg QPM. Please continue to monitor hemoglobin A1c (last 6.5% 03/08/24), glucose (last 156mg/dL), diarrhea and GFR (last 60mL/min). 8. HSV: acyclovir 400mg PO TID. Please continue to monitor for S/S of HSV outbreak, diarrhea and renal function. 9. Muscle spasm: cyclobenzaprine 5mg PO TID PRN muscle spasm. Resident has had 1 dose so far. Please continue to monitor for muscle spasms, PRN usage, dementia/delirium (BEERs medication) and anticholinergic side effects (BEERs medication, on Biotene). 10. Allergic rhinitis: fluticasone 0.05% nasal spray 1 spray nasal daily and loratadine 10mg PO daily. Please continue to monitor for S/S of allergies, dry nares and renal function. 11. Dry mouth: Biotene 15mL MM 5x/day PRN dry mouth. Resident has had 1 dose. Please continue to monitor for PRN usage. 12. Vitamin D deficiency/nutrition: ergocalciferol 1.25mg PO weekly and multivitamin with minerals 1T PO DAILYCM. Please continue to monitor vitamin D (last 03/08/24). Assessment/Plan for indications treated with psychotropic medications: 1. Depression: bupropion XL 300mg PO QAM. Please continue to monitor for suicidal ideation (black box warning), GI side effects and weight gain. Please consider GDR by 08/2024 if clinically appropriate. Thanks. Medical chart and medication regimen reviewed. The following medication irregularities or issues were identified: 1. Bupropion XL 300mg PO QAM. Please consider GDR by 08/2024 if clinically appropriate. Thanks. Date Date of Note:: 03/12/24 Documented by User: Dr. Moise Glez MD 03/12/24 13:26 TCU RX Drug Regimen Review Provider Comments Provider responsibility Provider Comments to Recommendations by Pharmacy: Agree
[2024-03-12] MEDS: Tuberculin,Purif.prot.deriv. 50 TU/ML Vial 0.1 ML ID (13:09)
[2024-03-12 16:00] VITALS: BP 116/54; PULSE 96; RESP 16; TEMP 36.7; O2SAT 94
[2024-03-12] MEDS: Tamsulosin HCl 0.4 MG Capsule PO (16:55)
[2024-03-12] MEDS: metFORMIN HCl 500 MG Tablet PO (16:56)
[2024-03-12] MEDS: Polyethylene Glycol 3350 17 GM PACKET PO (18:51)
[2024-03-12] MEDS: Pantoprazole Sodium 40 MG Tablet PO (21:12)
--- NOTE | 2024-03-12 23:08 | NURSING ---
Pt refused soap suds enema.
[2024-03-13] MEDS: Acetaminophen 500 MG Tablet 1000 MG PO ×3 (05:24→20:15)
[2024-03-13] MEDS: Enoxaparin 40 MG/0.4 ML Syringe SC (05:24)
[2024-03-13] MEDS: Levothyroxine 150 MCG Tablet PO (05:24)
[2024-03-13] MEDS: Acyclovir 200 MG Capsule 400 MG PO ×3 (05:24→20:16)
--- NOTE | 2024-03-13 06:41 | NURSING ---
Placed dey for failed voiding trails.
[2024-03-13 06:50] LABS: Bedside Glucose 142 mg/dL (74-106)
[2024-03-13 08:44] VITALS: BP 94/48; PULSE 108; RESP 16; TEMP 36.9; O2SAT 92
[2024-03-13] MEDS: Senna/Docusate Sodium 1 Tablet 2 TABLET PO ×2 (08:51→20:15)
[2024-03-13] MEDS: Calcium Carbonate 500 MG Tablet PO ×3 (08:51→18:08)
[2024-03-13] MEDS: metFORMIN HCl 500 MG Tablet 1000 MG PO (08:52)
[2024-03-13] MEDS: Multivitamins,Ther W-Minerals Tablet 1 TABLET PO (08:54)
[2024-03-13] MEDS: buPROPion (XL) 300 MG TABLET.XL PO (08:55)
[2024-03-13] MEDS: Loratadine 10 MG Tablet PO (08:55)
[2024-03-13] MEDS: Polyethylene Glycol 3350 17 GM PACKET PO (08:57)
[2024-03-13] MEDS: 0.9% Saline Lock 10 ML Syringe IV ×2 (09:01→20:15)
[2024-03-13] MEDS: oxyCODONE 5 MG Tablet 10 MG PO ×2 (10:29→19:38)
[2024-03-13 10:32] VITALS: BP 137/65; PULSE 98; RESP 18; O2SAT 99
--- NOTE | 2024-03-13 10:33 | NURSING ---
Addendum entered by Greta Morton 03/13/24 18:54: Pt returns to unit ~1740 after blood transfusion. New IV noted to back of left hand; will update chart. Family member present at bedside. Vitals: bp-144/82, p-102, r-18, sp02-93 on RA. Lungs clear to auscultation. Pt denies pain at this time. No comments/concerns. Currently eating supper. Original Note: Pt transported by staff to PCU 102 for blood transfusion. BP 94/48, p-108 this AM, currently bp137/5 p-98, r-18, sp02-99 RA. Pt received PRN Oxycodone for 9/10 pain to left leg prior to leaving unit.
[2024-03-13] MEDS: cycloBENZAPRine HCl 5 MG TABLET PO ×2 (12:20→23:04)
[2024-03-13 18:06] VITALS: BP 144/82; PULSE 102; RESP 18; O2SAT 93
[2024-03-13] MEDS: Tamsulosin HCl 0.4 MG Capsule PO (18:09)
[2024-03-13] MEDS: metFORMIN HCl 500 MG Tablet PO (18:09)
--- NOTE | 2024-03-13 19:03 | NURSING ---
Pt on day 4 with no bowel movement. Bowel sounds normoactive x4, abdomen non-tender, non-distended. Pt denies pain/discomfort. Unable to administer PRN Mag Citrate d/t now in stock. Pt accepts prune juice this evening.
[2024-03-13] MEDS: Pantoprazole Sodium 40 MG Tablet PO (20:14)
[2024-03-14] MEDS: Enoxaparin 40 MG/0.4 ML Syringe SC (06:03)
[2024-03-14] MEDS: Acetaminophen 500 MG Tablet 1000 MG PO ×3 (06:04→20:30)
[2024-03-14] MEDS: Acyclovir 200 MG Capsule 400 MG PO ×3 (06:04→20:31)
[2024-03-14] MEDS: Levothyroxine 150 MCG Tablet PO (06:04)
[2024-03-14] MEDS: oxyCODONE 5 MG Tablet 10 MG PO ×3 (06:06→20:29)
[2024-03-14 06:19] LABS: Bedside Glucose 153 mg/dL (74-106)
[2024-03-14 08:38] VITALS: BP 110/61; PULSE 103; RESP 16; TEMP 36.8; O2SAT 95
[2024-03-14] MEDS: Calcium Carbonate 500 MG Tablet PO ×3 (08:43→17:42)
[2024-03-14] MEDS: metFORMIN HCl 500 MG Tablet 1000 MG PO (08:43)
[2024-03-14] MEDS: Multivitamins,Ther W-Minerals Tablet 1 TABLET PO (08:44)
[2024-03-14] MEDS: Loratadine 10 MG Tablet PO (08:44)
[2024-03-14] MEDS: buPROPion (XL) 300 MG TABLET.XL PO (08:46)
[2024-03-14] MEDS: Polyethylene Glycol 3350 17 GM PACKET PO (08:46)
[2024-03-14] MEDS: Lisinopril 5 MG Tablet PO (08:46)
[2024-03-14] MEDS: Senna/Docusate Sodium 1 Tablet 2 TABLET PO ×2 (08:46→20:30)
[2024-03-14] MEDS: Fluticasone 0.05% 1 SPRAY NASAL.SRY NASAL (10:22)
--- NOTE | 2024-03-14 11:17 | NURSING ---
SSE was not administered. Patient had medium BM.
[2024-03-14] MEDS: cycloBENZAPRine HCl 5 MG TABLET PO ×2 (16:44→20:32)
[2024-03-14] MEDS: Tamsulosin HCl 0.4 MG Capsule PO (17:41)
[2024-03-14] MEDS: metFORMIN HCl 500 MG Tablet PO (17:42)
[2024-03-14] MEDS: Pantoprazole Sodium 40 MG Tablet PO (20:32)
[2024-03-14] MEDS: MELATONIN 10 MG TABLET PO (20:34)
[2024-03-15] MEDS: oxyCODONE 5 MG Tablet 10 MG PO ×4 (03:34→22:56)
[2024-03-15] MEDS: Enoxaparin 40 MG/0.4 ML Syringe SC (06:13)
[2024-03-15] MEDS: Acetaminophen 500 MG Tablet 1000 MG PO ×3 (06:13→20:55)
[2024-03-15] MEDS: Acyclovir 200 MG Capsule 400 MG PO ×3 (06:13→20:56)
[2024-03-15] MEDS: Levothyroxine 150 MCG Tablet PO (06:13)
[2024-03-15 06:36] LABS: Bedside Glucose 127 mg/dL (74-106)
[2024-03-15] MEDS: Fluticasone 0.05% 1 SPRAY NASAL.SRY NASAL (09:58)
[2024-03-15] MEDS: Calcium Carbonate 500 MG Tablet PO ×3 (09:59→17:12)
[2024-03-15] MEDS: metFORMIN HCl 500 MG Tablet 1000 MG PO (09:59)
[2024-03-15] MEDS: Loratadine 10 MG Tablet PO (10:00)
[2024-03-15] MEDS: Multivitamins,Ther W-Minerals Tablet 1 TABLET PO (10:00)
[2024-03-15] MEDS: Polyethylene Glycol 3350 17 GM PACKET PO (10:02)
[2024-03-15] MEDS: Ergocalciferol 1.25 MG (50, 000 UNIT) Capsule PO (10:02)
[2024-03-15] MEDS: buPROPion (XL) 300 MG TABLET.XL PO (10:02)
[2024-03-15] MEDS: Senna/Docusate Sodium 1 Tablet 2 TABLET PO ×2 (10:02→20:56)
[2024-03-15] MEDS: Lisinopril 5 MG Tablet PO (10:03)
[2024-03-15] MEDS: 0.9% Saline Lock 10 ML Syringe IV (10:15)
[2024-03-15 10:18] VITALS: BP 123/72; PULSE 99
[2024-03-15] MEDS: Saliva Substitute 237 ML BOTTLE 15 ML MUCOUS MEM (11:49)
[2024-03-15 13:27] VITALS: BP 106/55; PULSE 98; RESP 18; TEMP 36.2; O2SAT 93
[2024-03-15] MEDS: Tamsulosin HCl 0.4 MG Capsule PO (17:12)
[2024-03-15] MEDS: metFORMIN HCl 500 MG Tablet PO (17:12)
--- NOTE | 2024-03-15 17:21 | NURSING ---
PT HAS DR APPOINTMENT WITH ON 03/22/24 AT 9AM. PT WANTS [facility], PT MUST SET UP OWN TRANSPORT WITH [facility] PER SPECIAL MACHINE OPERATOR.
[2024-03-15] MEDS: Pantoprazole Sodium 40 MG Tablet PO (20:56)
[2024-03-15] MEDS: MELATONIN 10 MG TABLET PO (20:57)
[2024-03-16] MEDS: Acyclovir 200 MG Capsule 400 MG PO ×3 (05:20→21:37)
[2024-03-16] MEDS: oxyCODONE 5 MG Tablet 10 MG PO ×3 (05:20→21:36)
[2024-03-16] MEDS: Levothyroxine 150 MCG Tablet PO (05:21)
[2024-03-16] MEDS: Acetaminophen 500 MG Tablet 1000 MG PO ×3 (05:21→21:37)
[2024-03-16] MEDS: Enoxaparin 40 MG/0.4 ML Syringe SC (05:24)
[2024-03-16 06:36] LABS: Bedside Glucose 138 mg/dL (74-106)
[2024-03-16] MEDS: metFORMIN HCl 500 MG Tablet 1000 MG PO (08:55)
[2024-03-16] MEDS: Calcium Carbonate 500 MG Tablet PO ×3 (08:55→17:18)
[2024-03-16] MEDS: Multivitamins,Ther W-Minerals Tablet 1 TABLET PO (08:55)
[2024-03-16] MEDS: buPROPion (XL) 300 MG TABLET.XL PO (08:56)
[2024-03-16] MEDS: Lisinopril 5 MG Tablet PO (08:56)
[2024-03-16] MEDS: Senna/Docusate Sodium 1 Tablet 2 TABLET PO ×2 (08:56→21:36)
[2024-03-16] MEDS: Loratadine 10 MG Tablet PO (08:56)
[2024-03-16] MEDS: Polyethylene Glycol 3350 17 GM PACKET PO (08:56)
[2024-03-16] MEDS: Fluticasone 0.05% 1 SPRAY NASAL.SRY NASAL (08:56)
--- NOTE | 2024-03-16 09:10 | NURSING ---
This nurse had lengthy conversations with patient and significant other (Lucas) yesterday about follow-up appt with Dr. Lang and transportation options. Discussed physician transport vs. [place]. They both had difficulty understanding, asked nurse the same questions multiple times. Patient was adamant she wants to call [place] for transport, doesn't want physicians set up. Discussed her having to call and needing to pay up front. [place] number provided. On follow-up, patient seems confused about the process. Had to have the same conversation again. She is unable to communicate if she has a way to pay, unable to find the number that nurse had given her. Called Dr. Lang's office, explained situation to Rochelle. Asked if Dr. Lang would be able to see patient on TCU and have xrays done at hospital d/t difficulty w/ transportation.
--- NOTE | 2024-03-16 09:32 | NURSING ---
Updated by Toni FRANKLIN that patient decided she doesn't want covid vaccine. She was provided VIS yesterday. Order dc'd.
[2024-03-16 10:13] VITALS: BMI 22.0
[2024-03-16 13:52] VITALS: BP 110/52; PULSE 79; RESP 18; TEMP 36.1; O2SAT 96
[2024-03-16] MEDS: metFORMIN HCl 500 MG Tablet PO (17:18)
[2024-03-16] MEDS: Tamsulosin HCl 0.4 MG Capsule PO (17:18)
--- NOTE | 2024-03-16 18:11 | CASEMGMT ---
Social Work SW met with patient and significant other, Lucas at bedside to complete initial intake assessment. SW introduced self and role. Patient confirmed contact information and demographics. Patient confirmed code status as DNR. Patient informed SW that she has a living will and advance directive, but she is in the process of redoing Will and POA to designate her significant other, Lucas Mendez. Patient and partner was educated about [employer] Medicare benefits and next review date 03/22/2024. Patient was notified that continued stay is not guaranteed pending review. Patient and partner questioned insurance ability to determine continued stay and discontinuation of services. Patient and partner was notified of Medicare rights to appeal, should they disagree with [employer] Medicare NOM[employer], if delivered. Patent informed SW that she has goals of returning home as independent as possible to return to [facility]. SW discussed home health care and outpatient therapy history. Patient informed SW that she has participated in outpatient therapy via [facility]. Patient is open to therapeutic recommendations for continued care upon discharge. SW will continue to follow for discharge planning. RENNY Clayton
[2024-03-16 20:55] VITALS: PULSE 107; RESP 18; O2SAT 94
[2024-03-16] MEDS: MELATONIN 10 MG TABLET PO (21:37)
[2024-03-16] MEDS: Pantoprazole Sodium 40 MG Tablet PO (21:37)
[2024-03-17] MEDS: Acyclovir 200 MG Capsule 400 MG PO ×3 (05:04→22:20)
[2024-03-17] MEDS: Acetaminophen 500 MG Tablet 1000 MG PO ×3 (05:04→22:20)
[2024-03-17] MEDS: Levothyroxine 150 MCG Tablet PO (05:04)
[2024-03-17] MEDS: oxyCODONE 5 MG Tablet 10 MG PO ×4 (05:11→22:20)
[2024-03-17] MEDS: Enoxaparin 40 MG/0.4 ML Syringe SC (05:11)
[2024-03-17 06:11] LABS: Bedside Glucose 158 mg/dL (74-106)
[2024-03-17 06:42] LABS: Hematocrit 34.2 % (37-47); Hemoglobin 10.9 g/dL (12.0-15.0)
--- NOTE | 2024-03-17 06:51 | NURSING ---
PATIENT C/O NERVE PAIN TO BLE, WRITTEN COMMUNICATION LEFT FOR DR. CABALLERO
--- NOTE | 2024-03-17 08:46 | NURSING ---
Dr. Lang will come see patient on the unit on 03/25/24. Xrays ordered for 03/24/24.
[2024-03-17] MEDS: Gabapentin 100 MG Capsule PO ×3 (09:33→17:33)
[2024-03-17] MEDS: Calcium Carbonate 500 MG Tablet PO ×3 (09:33→17:35)
[2024-03-17] MEDS: metFORMIN HCl 500 MG Tablet 1000 MG PO (09:33)
[2024-03-17] MEDS: Multivitamins,Ther W-Minerals Tablet 1 TABLET PO (09:34)
[2024-03-17] MEDS: Polyethylene Glycol 3350 17 GM PACKET PO (09:34)
[2024-03-17] MEDS: Loratadine 10 MG Tablet PO (09:34)
[2024-03-17] MEDS: Senna/Docusate Sodium 1 Tablet 2 TABLET PO ×2 (09:34→22:20)
[2024-03-17] MEDS: Lisinopril 5 MG Tablet PO (09:35)
[2024-03-17] MEDS: buPROPion (XL) 300 MG TABLET.XL PO (09:35)
[2024-03-17] MEDS: Iron Polysaccharide Complex 150 MG CAPSULE PO (10:00)
[2024-03-17] MEDS: Ascorbic Acid 500 MG Tablet PO (10:00)
[2024-03-17 10:08] LABS: Iron 62 ug/dL (50-170); Iron Binding Capacity,Total 337 ug/dL (250-450); PERCENT IRON SATURATION 18.4 % (15.0-55.0)
--- NOTE | 2024-03-17 10:56 | CASEMGMT ---
Social Work IDT met with patient and significant other, Lucas Brooks at bedside to complete care planning. Discussed patient progress with therapy (PT/OT/ST), dietary, nursing, and activities. Patient requires Max A for lower extremity assistance. Patient has recommended DME for front wheeled walker. Patient is weight bearing as tolerated; ambulating 30ft before needing rest. Patient will be working on steps with therapy. Significant other to observe therapy session and transfer training. Patient expressed concerns for pain during therapy services. Patient would like pain medication prior to therapy services. Patient inquired about potentially taking home med for caffeine. Patient has concerns regarding speech for cognitive evaluation;B-cat score 30/50. Patient declined to work with speech at this time. SW encouraged increased engagement with therapy services. Patient acknowledged that she was unaware of how bad things were regarding her health. Patient remains to return home with home health care services. SW educated patient on [employer] insurance coverage and next review date for 03/22/2024. SW explained that continued stay is not guaranteed upon review. SW recommended additional family support in the home due to patient. Patient is open to moving room to first floor due to unsafe stairs to upper level in home currently. Patient is being recommended for front wheeled walker. Signed Rx obtained by Physician, [place] [facility]. MARKY will continue to follow for discharge planning RENNY Clayton
[2024-03-17 11:59] VITALS: BP 114/72; PULSE 100; RESP 16; TEMP 36.3; O2SAT 97
[2024-03-17] MEDS: cycloBENZAPRine HCl 5 MG TABLET PO (14:13)
[2024-03-17] MEDS: metFORMIN HCl 500 MG Tablet PO (17:34)
[2024-03-17] MEDS: Tamsulosin HCl 0.4 MG Capsule PO (17:35)
[2024-03-17 22:20] VITALS: O2SAT 93
[2024-03-17] MEDS: MELATONIN 10 MG TABLET PO (22:20)
[2024-03-17] MEDS: Pantoprazole Sodium 40 MG Tablet PO (22:20)
[2024-03-17] MEDS: 0.9% Saline Lock 10 ML Syringe IV (22:25)
[2024-03-18] MEDS: cycloBENZAPRine HCl 5 MG TABLET PO (00:48)
[2024-03-18] MEDS: oxyCODONE 5 MG Tablet 10 MG PO ×3 (02:22→20:43)
[2024-03-18 06:21] LABS: Bedside Glucose 129 mg/dL (74-106)
[2024-03-18] MEDS: Acyclovir 200 MG Capsule 400 MG PO ×3 (06:28→20:45)
[2024-03-18] MEDS: Acetaminophen 500 MG Tablet 1000 MG PO ×3 (06:28→20:48)
[2024-03-18] MEDS: Levothyroxine 150 MCG Tablet PO (06:28)
[2024-03-18] MEDS: Calcium Carbonate 500 MG Tablet PO ×3 (08:25→17:02)
[2024-03-18] MEDS: Iron Polysaccharide Complex 150 MG CAPSULE PO (08:26)
[2024-03-18] MEDS: Loratadine 10 MG Tablet PO (08:26)
[2024-03-18] MEDS: Multivitamins,Ther W-Minerals Tablet 1 TABLET PO (08:26)
[2024-03-18] MEDS: Fluticasone 0.05% 1 SPRAY NASAL.SRY NASAL (08:26)
[2024-03-18] MEDS: metFORMIN HCl 500 MG Tablet 1000 MG PO (08:26)
[2024-03-18] MEDS: Senna/Docusate Sodium 1 Tablet 2 TABLET PO ×2 (08:27→20:45)
[2024-03-18] MEDS: Polyethylene Glycol 3350 17 GM PACKET PO (08:27)
[2024-03-18] MEDS: Ascorbic Acid 500 MG Tablet PO (08:28)
[2024-03-18] MEDS: buPROPion (XL) 300 MG TABLET.XL PO (08:28)
[2024-03-18] MEDS: Lisinopril 5 MG Tablet PO (08:28)
[2024-03-18] MEDS: Gabapentin 100 MG Capsule PO ×3 (08:44→17:02)
[2024-03-18 08:54] VITALS: BP 100/54; PULSE 111
[2024-03-18] MEDS: Caffeine 200 MG Tablet 300 MG PO ×2 (11:51→17:01)
--- NOTE | 2024-03-18 12:29 | CASEMGMT ---
Social Work SW met with patient to complete MDS at bedside. Patient BIM () and PhQ-9 (04/19). Patient informed SW that she felt down and hopeless due to changes in medical condition and physical ability. The patient informed SW that it has been a hard realization that she is not as independent to care for self as she was in the past. Patient informed SW that when people she knows remind her of who she once was, she feels she has let herself down from working her body too hard. RENNY Clayton
[2024-03-18 13:30] VITALS: PULSE 107; RESP 18; O2SAT 94
[2024-03-18] MEDS: 0.9% Saline Lock 10 ML Syringe IV (13:34)
--- NOTE | 2024-03-18 13:46 | NURSING ---
FINE CRACKLES TO POST LT LOWER LUNG AND POST UPPER RT. I.S GIVEN
[2024-03-18 15:11] VITALS: BP 103/50; PULSE 103; RESP 16; TEMP 36.8; O2SAT 93
[2024-03-18] MEDS: metFORMIN HCl 500 MG Tablet PO (17:01)
[2024-03-18] MEDS: Tamsulosin HCl 0.4 MG Capsule PO (17:02)
--- NOTE | 2024-03-18 18:00 | NURSING ---
PT HEART RATE HAS BEEN RUNNING 99-111. STARTED YESTERDAY,03/17/24. AWARE
--- NOTE | 2024-03-18 18:14 | CON.PCM.GI_ITS ---
HPI Consult Data Date of Consult: 03/18/24 HPI Narrative Reason for Consultation: Anemia HPI Narrative: IMAN HICKS, is a 74 F with a past medical history of essential hypertension, hypothyroidism; with history of goiter, DM-2; of unknown control on Metformin, peripheral neuropathy; with chronically poor balance and increasingly frequent falls, history of tobacco abuse, history of HSV, history of TIA (2011), RA, history of recurrent UTI's, history of atrophic vaginitis, history of renal calculi; with subsequent stent and lithotripsy, depression, GERD and chronic back pain who presents to [facility] ER complaining of Left hip pain after fall. Ms. Hicks reports her symptoms began approximately one hour prior to arrival when she lost her balance and fell while she was walking on a sidewalk while trying to work in her yard causing her to land on her Left hip and side with subsequent severe pain and inability to ambulate, stand up or even bear weight on her Left leg. She denies LOC or injuring her head with the fall but she does admit falling off the narrow steps of the porch of her home ~4 weeks ago. She also denies related fever, chills, nausea, vomiting, diarrhea, constipation, chest pain, SOB, recent medication changes, recent illness, history of CAD or chest pain with activity. In the ER her X-rays were positive for Left hip fracture. She underwent fracture repair and was sent to TCU prior to her going home. Since being in the TCU her hemoglobin dropped down to 7.4 from 13. She was given transfusion of packed red blood cells and her stool was checked for blood and there were positi ve. She is on heparin for DVT prophylaxis. I was consulted due to suspected GI bleed. [facility] Medical History (Updated 03/11/24 @ 22:[address] Moise Glez MD) Alcohol use Anxiety and depression Arthritis Back pain due to injury Back problem Carpal tunnel syndrome Cataracts, bilateral Easy bruising GERD (gastroesophageal reflux disease) Goiter H/O: pneumonia History of stress test HSV (herpes simplex virus) infection Hypertension Hypothyroidism Kidney stones Left renal stone Leg cramps Neuropathy Recurrent UTI Rheumatoid arthritis Seasonal allergies Smoker Stress incontinence Stroke/cerebrovascular accident Syncope TIA (transient ischemic attack) Type 2 diabetes mellitus Vision problems Home Medications bupropion HCl 300 mg 24 hr tablet, extended release (Wellbutrin XL) 300 mg PO QA M depression 11/20/18 [History Last Taken 07/21/20 05:15] multivitamin with minerals-folic acid 0.4 mg tablet (Adult One Daily Multivitamin) 1 tab PO DAILY vitamin 11/20/18 [History Last Taken Unknown] fluticasone propionate 50 mcg/actuation nasal spray,suspension 1 spray NASAL DAILY allergies 06/22/20 [History Last Taken Unknown] loratadine 10 mg capsule 10 mg PO DAILY allergie 06/22/20 [History Last Taken Unknown] metformin 500 mg tablet 1,000 mg PO DAILY diabetes 08/04/20 [History Last Taken Unknown] omeprazole 40 mg capsule,delayed release 40 mg PO QHS acid reflux 10/13/20 [History Last Taken 02/04/22] levothyroxine 175 mcg tablet (Synthroid) 150 mcg PO DAILY hypothyroid 01/30/22 [History Last Taken 07/04/22] metformin 500 mg tablet 500 mg PO QHS diabetes 06/28/22 [History Last Taken U nknown] estradiol 0.01% (0.1 mg/gram) vaginal cream See Rx Instructions vaginal .COMPLEX vaginitis #42.5 grams 07/24/23 [Rx Last Taken Unknown] mometasone 0.1 % topical ointment 1 applic topical .COMPLEX ? #15 grams 09/03/23 [Rx Last Taken Unknown] lisinopril 5 mg tablet 5 mg PO DAILY BP 03/07/24 [History Last Taken Unknown] valacyclovir 500 mg tablet 500 mg PO BID antibiotic 03/07/24 [History Last Taken Unknown] acetaminophen 500 mg tablet 1,000 mg (2 x 500 mg) PO Q8 pain #0 tabs 03/11/24 [Rx Last Taken Unknown] calcium carbonate 500 mg (2.5 x 200 mg calcium (500 mg)) PO TIDCM acid reflux/indigestion #0 tabs 03/11/24 [Rx Last Taken Unknown] cyclobenzaprine 5 mg tablet 5 mg PO TID PRN PRN Muscle Spasm #0 tabs 03/11/24 [Rx Last Taken Unknown] enoxaparin 40 mg/0.4 mL subcutaneous syringe 40 mg (0.4 mL) subcut DAILY@0600 blood thinner/post surgery 28 days #4 mL 03/11/24 [Rx Last Taken Unknown] ergocalciferol (vitamin D2) 1,250 mcg (50,000 unit) capsule (Vitamin D2) 1,250 mcg PO Q7D supplement #7 caps 03/11/24 [Rx Last Taken Unknown] oxycodone 5 mg tablet 10 mg (2 x 5 mg) PO Q6H PRN pain (scale score 6-10) 3 days #12 tabs 03/11/24 [Rx Last Taken Unknown] sennosides 8.6 mg-docusate sodium 50 mg tablet (Stool Softener-Stimulant Laxative) 2 tab PO BID PRN PRN Constipation #0 tabs 03/11/24 [Rx Last Taken Unknown] Allergy/AdvReac Type Severity Reaction Status Date / Time No Known Allergies Allergy Verified 03/08/24 12:38 Family History Mother Cancer Father Diabetes Heart disease Sister Diabetes Surgical History History of carpal tunnel surgery History of colonoscopy History of foot surgery History of lithotripsy Social History (Updated 03/11/24 @ 22:[address] Moise Glez MD) household members: none housing: house number of children: 0 current occupational status: retired Smoking Status: Current every day smoker tobacco type: cigarettes alcohol intake: current alcohol intake frequency: holidays/special occasions only substance use type: does not use seatbelt use: always do you feel safe at home: Yes additional social history: ROS Constitutional Constitutional: Denies chills, fever(s) or weight gain ENT HEENT: Denies headache(s), nasal congestion or nasal discharge Cardiovascular Cardiovascular: Denies chest pain or palpitations Respiratory/Chest Respiratory/Chest: Denies cough, excessive phlegm production or shortness of breath with exertion Gastrointestinal Gastrointestinal: Denies abdominal pain, nausea or vomiting Genitourinary Genitourinary: Denies dysuria Musculoskeletal Musculoskeletal: Reports other Details: Left hip pain. ; Denies joint pain or joint swelling Integumentary Integumentary: Denies rash or wounds Neurologic Neurologic: Denies focal weakness, numbness or tingling Psychiatric Psychiatric: Denies anxiety, auditory hallucinations, depression, homicidal ideation or suicidal ideation Physical Exam Const alert General Appearance: cooperative HEENT normocephalic Eyes PERRL and EOMs intact bilaterally Neck supple, no JVD and no carotid bruits Resp normal respiratory effort, normal air movement and clear to auscultation bilaterally Cardio regular rate and regular rhythm GI normal to inspection, nondistended, normoactive bowel sounds, non-tender and non-distended Extremity normal capillary refill General Extremity: Negative for edema Skin no rashes or lesions noted General Skin Exam: no breakdown Psych affect normal Appearance: appropriate Lab / Micro Data 03/17/24 05:15 03/12/24 04:57 Labs: Laboratory Results - last 24 hr 03/18/24 05:55: POC Glucose 129 H Assessment & Plan Assessment/Plan (1) Debility: (2) Fall: QUALIFIERS: Encounter type: initial encounter Qualified Code(s): W19.XXXA - Unspecified fall, initial encounter (3) Closed fracture of left hip: QUALIFIERS: Encounter type: initial encounter Qualified Code(s): S72.002A - Fracture of unspecified part of neck of left femur, initial encounter for closed fracture (4) Diabetes mellitus type 2 in nonobese: (5) Depression: (6) Allergic rhinitis: (7) GERD (gastroesophageal reflux disease): (8) Hypothyroidism: (9) Atrophic vaginitis: (10) Essential (primary) hypertension: (11) HSV (herpes simplex virus) infection: PLAN: Plan 74 year old female with below past medical history hospitalized for left hip fracture, underwent left femur IM nail fixation 03/08/[address] Lang, admitted to TCU with debility, here for rehabilitation, strengthening, prior to discharge home alone. She currently has presumed blood loss anemia possibly secondary to GI blood loss. Recommend upper endoscopy to evaluate her upper GI tract due to her recent surgery. She was explained alternatives, risk, benefits including not withstanding bleeding, infection, sepsis, perforation, need for emergent surgery and . She will have an ASA of 3. Charges/Coding Visit Charges Inpatient E&M: 04183 SNF Init L2
[2024-03-18] MEDS: MELATONIN 10 MG TABLET PO (20:43)
[2024-03-18] MEDS: Pantoprazole Sodium 40 MG Tablet PO (20:45)
[2024-03-18 20:48] VITALS: BP 111/61; PULSE 99
[2024-03-18] MEDS: Metoprolol Tartrate 25 MG Tablet 12.5 MG PO (20:48)
[2024-03-19] MEDS: Acyclovir 200 MG Capsule 400 MG PO ×3 (05:37→20:58)
[2024-03-19] MEDS: Levothyroxine 150 MCG Tablet PO (05:37)
[2024-03-19 05:49] LABS: Absolute Lymphocyte Count 1.25 X10^3/uL (0.83-4.51); Absolute Neutrophil Count 6.7 X10^3/uL (2.0-7.7); Basophil# 0.05 X10^3/uL; Basophil% 0.5 % (0-1); Eosinophil# 0.35 X10^3/uL; Eosinophils% 3.8 % (0-5); Hematocrit 34.7 % (37-47); Hemoglobin 11.2 g/dL (12.0-15.0); Lymphocyte # 1.25 X10^3/ul (0.83-4.51); Lymphocyte % 13.7 % (19-41); Mean Corp Hgb Conc 32.3 g/dL (32-36); Mean Corpuscular Hgb 32.2 pg (27.0-32.0); Mean Corpuscular Volume 99.7 fL (81-99); Mean Platelet Vol. 8.9 fl (6.2-12.0); Monocyte% 7.7 % (0-10); NRBC Flagged by Analyzer 0 % (0-5); Neutrophil # 6.65 X10^3/uL (2.7-7.7); Platelet Count 334 K/mm3 (150-450); RBC Distribution Width CV 16.5 % (11.6-14.6); Red Blood Count 3.48 M/mm3 (4.2-5.4); White Blood Count 9.1 K/mm3 (4.4-11.0)
[2024-03-19 06:53] LABS: Anion Gap 5 (5-15); BUN 32 mg/dL (7-18); BUN/Creat Ratio 27.4 RATIO (10-20); Calcium,Total 8.9 mg/dL (8.5-10.1); Chloride 105 mmol/L (98-107); Creatinine, Serum 1.17 mg/dL (0.55-1.02); EST Glomerular Filtration Rate 48 mL/min (>60); Est Glom Filt Rate - Afr Amer 58 mL/min (>60); Estimated Creatinine Clearance 41.02 ml/min; Glucose 139 mg/dL (74-106); Potassium 4.1 mmol/L (3.5-5.1); Sodium Level 135 mmol/L (136-145)
--- NOTE | 2024-03-19 09:18 | NURSING ---
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
[2024-03-19] MEDS: Tuberculin,Purif.prot.deriv. 50 TU/ML Vial 0.1 ML ID (09:49)
[2024-03-19] MEDS: Fluticasone 0.05% 1 SPRAY NASAL.SRY NASAL (10:00)
--- NOTE | 2024-03-19 11:06 | NURSING ---
Addendum entered by Toni Sy 03/19/24 14:06: Pt. returned to unit at 1355. Original Note: Pt left floor at 1100 to go down for an EGD.
[2024-03-19] MEDS: Acetaminophen 500 MG Tablet 1000 MG PO ×2 (14:11→21:00)
[2024-03-19 15:50] VITALS: BP 110/66; PULSE 96; RESP 16; TEMP 36.4; O2SAT 97
[2024-03-19] MEDS: Calcium Carbonate 500 MG Tablet PO (16:35)
[2024-03-19] MEDS: Caffeine 200 MG Tablet 300 MG PO (16:35)
[2024-03-19] MEDS: Gabapentin 100 MG Capsule PO (16:35)
[2024-03-19] MEDS: metFORMIN HCl 500 MG Tablet PO (16:35)
[2024-03-19] MEDS: oxyCODONE 5 MG Tablet 10 MG PO ×2 (16:36→21:00)
[2024-03-19] MEDS: Tamsulosin HCl 0.4 MG Capsule PO (16:54)
[2024-03-19] MEDS: cycloBENZAPRine HCl 5 MG TABLET PO (20:00)
[2024-03-19 20:55] VITALS: BP 123/70; PULSE 100
[2024-03-19] MEDS: Metoprolol Tartrate 25 MG Tablet 12.5 MG PO (20:55)
[2024-03-19] MEDS: MELATONIN 10 MG TABLET PO (21:00)
[2024-03-19] MEDS: Pantoprazole Sodium 40 MG Tablet PO (21:06)
[2024-03-19] MEDS: 0.9% Saline Lock 10 ML Syringe IV (21:07)
[2024-03-20] MEDS: oxyCODONE 5 MG Tablet 10 MG PO ×3 (01:42→20:54)
[2024-03-20] MEDS: Levothyroxine 150 MCG Tablet PO (05:16)
[2024-03-20] MEDS: Acyclovir 200 MG Capsule 400 MG PO ×3 (05:16→21:41)
[2024-03-20] MEDS: Acetaminophen 500 MG Tablet 1000 MG PO ×3 (05:16→21:40)
[2024-03-20 09:02] VITALS: BP 109/58; PULSE 87; RESP 18; TEMP 36.2; O2SAT 97
[2024-03-20] MEDS: Fluticasone 0.05% 1 SPRAY NASAL.SRY NASAL (09:04)
[2024-03-20] MEDS: buPROPion (XL) 300 MG TABLET.XL PO (09:05)
[2024-03-20] MEDS: Calcium Carbonate 500 MG Tablet PO ×3 (09:05→18:09)
[2024-03-20] MEDS: Loratadine 10 MG Tablet PO (09:05)
[2024-03-20] MEDS: Polyethylene Glycol 3350 17 GM PACKET PO (09:05)
[2024-03-20] MEDS: Gabapentin 100 MG Capsule PO ×3 (09:05→18:08)
[2024-03-20] MEDS: Senna/Docusate Sodium 1 Tablet 2 TABLET PO (09:06)
[2024-03-20] MEDS: Iron Polysaccharide Complex 150 MG CAPSULE PO (09:06)
[2024-03-20] MEDS: Multivitamins,Ther W-Minerals Tablet 1 TABLET PO (09:06)
[2024-03-20] MEDS: Ascorbic Acid 500 MG Tablet PO (09:06)
[2024-03-20 09:12] VITALS: PULSE 87
[2024-03-20] MEDS: Metoprolol Tartrate 25 MG Tablet 12.5 MG PO ×2 (09:12→21:40)
[2024-03-20] MEDS: Pantoprazole Sodium 40 MG Tablet PO ×2 (09:13→21:39)
[2024-03-20] MEDS: 0.9% Saline Lock 10 ML Syringe IV (09:14)
[2024-03-20] MEDS: metFORMIN HCl 1,000 MG Tablet 1000 MG PO (10:49)
[2024-03-20] MEDS: cycloBENZAPRine HCl 5 MG TABLET PO ×2 (11:25→22:31)
[2024-03-20] MEDS: Caffeine 200 MG Tablet 300 MG PO (13:25)
[2024-03-20] MEDS: Tamsulosin HCl 0.4 MG Capsule PO (18:10)
[2024-03-20] MEDS: metFORMIN HCl 500 MG Tablet PO (18:10)
[2024-03-20] MEDS: MELATONIN 10 MG TABLET PO (21:39)
[2024-03-20 21:40] VITALS: BP 150/80; PULSE 80
[2024-03-21] MEDS: oxyCODONE 5 MG Tablet 10 MG PO ×3 (01:10→20:18)
[2024-03-21] MEDS: Acyclovir 200 MG Capsule 400 MG PO ×3 (06:35→21:31)
[2024-03-21] MEDS: Levothyroxine 150 MCG Tablet PO (06:35)
[2024-03-21] MEDS: Acetaminophen 500 MG Tablet 1000 MG PO ×3 (06:35→21:31)
[2024-03-21] MEDS: Fluticasone 0.05% 1 SPRAY NASAL.SRY NASAL (08:43)
[2024-03-21] MEDS: Calcium Carbonate 500 MG Tablet PO ×3 (08:44→18:10)
[2024-03-21] MEDS: Gabapentin 100 MG Capsule PO ×3 (08:44→18:10)
[2024-03-21] MEDS: metFORMIN HCl 1,000 MG Tablet 1000 MG PO (08:45)
[2024-03-21] MEDS: Multivitamins,Ther W-Minerals Tablet 1 TABLET PO (08:45)
[2024-03-21] MEDS: Iron Polysaccharide Complex 150 MG CAPSULE PO (08:46)
[2024-03-21] MEDS: Loratadine 10 MG Tablet PO (08:46)
[2024-03-21 08:47] VITALS: BP 114/59; PULSE 87
[2024-03-21] MEDS: Pantoprazole Sodium 40 MG Tablet PO ×2 (08:47→21:30)
[2024-03-21] MEDS: Metoprolol Tartrate 25 MG Tablet 12.5 MG PO ×2 (08:47→21:29)
[2024-03-21] MEDS: Senna/Docusate Sodium 1 Tablet 2 TABLET PO ×2 (08:48→21:31)
[2024-03-21] MEDS: Polyethylene Glycol 3350 17 GM PACKET PO (08:49)
[2024-03-21] MEDS: buPROPion (XL) 300 MG TABLET.XL PO (08:51)
[2024-03-21] MEDS: Ascorbic Acid 500 MG Tablet PO (08:52)
[2024-03-21 10:00] VITALS: BP 114/59; PULSE 62; RESP 16; O2SAT 92
[2024-03-21] MEDS: Caffeine 200 MG Tablet 300 MG PO ×2 (12:31→18:12)
[2024-03-21 15:58] VITALS: RESP 16; TEMP 36.7
[2024-03-21] MEDS: Tamsulosin HCl 0.4 MG Capsule PO (18:10)
[2024-03-21] MEDS: metFORMIN HCl 500 MG Tablet PO (18:13)
[2024-03-21] MEDS: cycloBENZAPRine HCl 5 MG TABLET PO (18:15)
--- NOTE | 2024-03-21 18:17 | NURSING ---
Addendum entered by Greta Morton 03/25/24 10:33: note: I directed pt/Lucas to contact Medical Records after they refused information regarding online portal stating I don't want anything on the phone or internet. Original Note: Pt's significant other, Lucas Mendez present at bedside and agitated, stating that he does not know details regarding patient's care. TCU Baseline care plan (provided at admission) re-printed and given to pt, who gives papers to Lucas. Lucas is listed as an authorized contact in pt chart. Lucas also upset that pt's recent EGD was not listed on paperwork. Explained EGD was a procedure done, and is not listed with diagnoses on the Baseline care plan. Pt's sister is listed as 'person to notify' on chart; Pt states that her sister isn't always around and that updates can be called/given to Lucas. Directed Lucas on how to contact Medical Records for information regarding paperwork r/t past procedures/care. Pt and Lucas in pleasant mood at this time, No further comments/concerns at this time.
--- NOTE | 2024-03-21 21:07 | NURSING ---
Spoke w/ Dr. Glez via phone to question when Lovenox 40mg can be resumed. Held d/t post-op anemia requiring transfusion of PRBCs. New order received and read back to restart Lovenox 40 mg subcut daily and check H&H tomorrow.
[2024-03-21 21:29] VITALS: BP 135/63; PULSE 90
[2024-03-21] MEDS: 0.9% Saline Lock 10 ML Syringe IV (21:29)
[2024-03-21] MEDS: MELATONIN 10 MG TABLET PO (21:30)
[2024-03-22] MEDS: oxyCODONE 5 MG Tablet 10 MG PO ×3 (04:01→22:12)
[2024-03-22 05:42] LABS: Hematocrit 34.8 % (37-47); Hemoglobin 11.3 g/dL (12.0-15.0)
[2024-03-22] MEDS: Acetaminophen 500 MG Tablet 1000 MG PO ×3 (05:54→20:49)
[2024-03-22] MEDS: Levothyroxine 150 MCG Tablet PO (05:54)
[2024-03-22] MEDS: Acyclovir 200 MG Capsule 400 MG PO ×3 (05:54→20:50)
[2024-03-22 06:20] LABS: Bedside Glucose 141 mg/dL (74-106)
[2024-03-22] MEDS: Gabapentin 100 MG Capsule PO ×3 (08:23→17:52)
[2024-03-22] MEDS: Multivitamins,Ther W-Minerals Tablet 1 TABLET PO (08:25)
[2024-03-22] MEDS: Calcium Carbonate 500 MG Tablet PO ×3 (08:25→17:53)
[2024-03-22] MEDS: Iron Polysaccharide Complex 150 MG CAPSULE PO (08:26)
[2024-03-22] MEDS: Loratadine 10 MG Tablet PO (08:26)
[2024-03-22 08:27] VITALS: BP 97/57; PULSE 96
[2024-03-22] MEDS: Metoprolol Tartrate 25 MG Tablet 12.5 MG PO ×2 (08:27→20:46)
[2024-03-22] MEDS: Pantoprazole Sodium 40 MG Tablet PO ×2 (08:28→20:49)
[2024-03-22] MEDS: Polyethylene Glycol 3350 17 GM PACKET PO (08:28)
[2024-03-22] MEDS: Senna/Docusate Sodium 1 Tablet 2 TABLET PO ×2 (08:28→20:49)
[2024-03-22] MEDS: Ascorbic Acid 500 MG Tablet PO (08:29)
[2024-03-22] MEDS: buPROPion (XL) 300 MG TABLET.XL PO (08:30)
[2024-03-22] MEDS: metFORMIN HCl 1,000 MG Tablet 1000 MG PO (08:32)
[2024-03-22] MEDS: Enoxaparin 40 MG/0.4 ML Syringe SC (08:38)
[2024-03-22] MEDS: Ergocalciferol 1.25 MG (50, 000 UNIT) Capsule PO (08:39)
[2024-03-22] MEDS: cycloBENZAPRine HCl 5 MG TABLET PO ×2 (10:16→20:53)
[2024-03-22] MEDS: Caffeine 200 MG Tablet 300 MG PO ×2 (12:05→17:51)
[2024-03-22 12:53] VITALS: BP 114/64; PULSE 78; RESP 18; TEMP 36.2; O2SAT 99
--- NOTE | 2024-03-22 13:55 | MDS.RN ---
Information for the MDS was obtained from review of the clinical record, interview of resident, staff, and direct observation of resident?s care.
--- NOTE | 2024-03-22 15:56 | NURSING ---
Addendum entered by Daisha Lane 03/22/24 16:07: Patient filled out paper to have medical records send to her home address after DC. Original Note: Lucas requesting medical records. Per medical records the patient has to request the information and they will not send until after DC. But if patient requesting just one report they could send that. Patient filled out request for egd report to be faxed. Report received and given to patient. Encouraged patient to set up patient portal to access some of her information. Patient was fine with Lucas helping her set up portal, showed them how to start process.
[2024-03-22] MEDS: metFORMIN HCl 500 MG Tablet PO (17:50)
[2024-03-22] MEDS: Tamsulosin HCl 0.4 MG Capsule PO (17:52)
[2024-03-22] MEDS: 0.9% Saline Lock 10 ML Syringe IV ×2 (17:55→20:55)
[2024-03-22] MEDS: Electrolyte Solution/Peg's 4000 ML 1000 ML PO (18:41)
[2024-03-22 20:46] VITALS: BP 102/57; PULSE 94
[2024-03-22] MEDS: MELATONIN 10 MG TABLET PO (20:48)
[2024-03-22 21:01] VITALS: BP 102/57; PULSE 94
[2024-03-23] MEDS: Levothyroxine 150 MCG Tablet PO (05:47)
[2024-03-23] MEDS: Acyclovir 200 MG Capsule 400 MG PO ×3 (05:47→21:37)
[2024-03-23] MEDS: Acetaminophen 500 MG Tablet 1000 MG PO ×3 (05:47→21:36)
[2024-03-23 06:34] LABS: Bedside Glucose 153 mg/dL (74-106)
[2024-03-23 08:30] VITALS: PULSE 93
[2024-03-23] MEDS: Gabapentin 100 MG Capsule PO ×3 (08:30→18:37)
[2024-03-23] MEDS: Metoprolol Tartrate 25 MG Tablet 12.5 MG PO ×2 (08:30→21:33)
[2024-03-23] MEDS: Multivitamins,Ther W-Minerals Tablet 1 TABLET PO (08:30)
[2024-03-23] MEDS: Polyethylene Glycol 3350 17 GM PACKET PO (08:30)
[2024-03-23] MEDS: metFORMIN HCl 1,000 MG Tablet 1000 MG PO (08:30)
[2024-03-23] MEDS: buPROPion (XL) 300 MG TABLET.XL PO (08:30)
[2024-03-23] MEDS: Senna/Docusate Sodium 1 Tablet 2 TABLET PO ×2 (08:30→21:31)
[2024-03-23] MEDS: Ascorbic Acid 500 MG Tablet PO (08:31)
[2024-03-23] MEDS: Calcium Carbonate 500 MG Tablet PO ×3 (08:31→18:37)
[2024-03-23] MEDS: Loratadine 10 MG Tablet PO (08:31)
[2024-03-23] MEDS: Iron Polysaccharide Complex 150 MG CAPSULE PO (08:31)
[2024-03-23] MEDS: Pantoprazole Sodium 40 MG Tablet PO ×2 (08:32→21:31)
[2024-03-23] MEDS: Enoxaparin 40 MG/0.4 ML Syringe SC (08:32)
[2024-03-23 09:37] VITALS: BMI 21.1
[2024-03-23] MEDS: Caffeine 200 MG Tablet 300 MG PO ×2 (12:03→18:15)
[2024-03-23] MEDS: 0.9% Saline Lock 10 ML Syringe IV ×2 (12:03→21:27)
[2024-03-23 12:22] VITALS: BP 106/51; PULSE 96; RESP 16; TEMP 36.3; O2SAT 95
--- NOTE | 2024-03-23 16:33 | CASEMGMT ---
Social Work MARKY spoke with therapy, patient is improving with therapy, but remains 2 person assist with ambulation and care. Therapist, Kole informed MARKY that patient's partner is unable to be her caregiver. Patient's partner, Lucas met with MARKY in the office to discuss concerns for insurance. Patient's insurance next review update is 03/26. Patient will require watermaster care. MARKY discussed patient care and halfway care plans with partner, Lucas. Lucas confirmed that he is unable to assist the patient at this time with 24/hr care assistance. MARKY discussed watermaster care placement and assist living. MARKY provided patient's partner a list with information regarding senior care placement. Patient's partner informed MARKY that he would like to attend meeting with patient to discuss transition of care plans on Friday or Friday. Lucas informed MARKY that Thursday 03/29 he is available at 11A. MARKY encouraged Lucas to review watermaster care placement options with patient. Discharge plans: LTC placement pending choice RENNY Clayton
[2024-03-23] MEDS: Tamsulosin HCl 0.4 MG Capsule PO (18:16)
[2024-03-23] MEDS: metFORMIN HCl 500 MG Tablet PO (18:16)
[2024-03-23] MEDS: oxyCODONE 5 MG Tablet 10 MG PO ×2 (18:18→22:38)
[2024-03-23 21:30] VITALS: O2SAT 94
[2024-03-23 21:33] VITALS: BP 133/74; PULSE 84
[2024-03-23] MEDS: MELATONIN 10 MG TABLET PO (21:36)
[2024-03-23 22:00] VITALS: BP 133/74; PULSE 84
[2024-03-23] MEDS: cycloBENZAPRine HCl 5 MG TABLET PO (23:07)
[2024-03-24] VITALS (7 sets, daily range): BP systolic 106–130; BP diastolic 46–67; PULSE 83–97; RESP 16; TEMP 36.8; O2SAT 94–97
[2024-03-24] MEDS: oxyCODONE 5 MG Tablet 10 MG PO ×3 (04:25→23:31)
[2024-03-24] MEDS: Acyclovir 200 MG Capsule 400 MG PO ×3 (06:01→21:19)
[2024-03-24] MEDS: Acetaminophen 500 MG Tablet 1000 MG PO ×3 (06:01→21:17)
[2024-03-24] MEDS: Levothyroxine 150 MCG Tablet PO (06:01)
[2024-03-24] MEDS: cycloBENZAPRine HCl 5 MG TABLET PO ×2 (06:04→19:36)
[2024-03-24 06:15] LABS: Bedside Glucose 152 mg/dL (74-106)
[2024-03-24] MEDS: Gabapentin 100 MG Capsule PO ×3 (08:16→16:54)
[2024-03-24] MEDS: Calcium Carbonate 500 MG Tablet PO ×3 (08:18→16:55)
[2024-03-24] MEDS: Multivitamins,Ther W-Minerals Tablet 1 TABLET PO (08:19)
[2024-03-24] MEDS: Iron Polysaccharide Complex 150 MG CAPSULE PO (08:20)
[2024-03-24] MEDS: Loratadine 10 MG Tablet PO (08:20)
[2024-03-24] MEDS: metFORMIN HCl 1,000 MG Tablet 1000 MG PO (08:20)
[2024-03-24] MEDS: Enoxaparin 40 MG/0.4 ML Syringe SC (08:21)
[2024-03-24] MEDS: Pantoprazole Sodium 40 MG Tablet PO ×2 (08:23→21:19)
[2024-03-24] MEDS: Polyethylene Glycol 3350 17 GM PACKET PO (08:23)
[2024-03-24] MEDS: Senna/Docusate Sodium 1 Tablet 2 TABLET PO ×2 (08:24→21:19)
[2024-03-24] MEDS: Ascorbic Acid 500 MG Tablet PO (08:25)
[2024-03-24] MEDS: buPROPion (XL) 300 MG TABLET.XL PO (08:26)
--- NOTE | 2024-03-24 08:43 | NURSING ---
BOLANOS REMOVED AT 0845 FOR VOIDING TRAILS. PT LEFT FLOOR AT 0850 FOR LT HIP XRAYS PER ORDERS.
--- NOTE | 2024-03-24 08:53 | RAD_ITS ---
STUDY: X-RAY - LEFT FEMUR REASON FOR STUDY: Female, 74 years old. Follow-up of dynamic hip screw placement in left proximal femur. TECHNIQUE: 4 view(s) of the femur. COMPARISON: Intraoperative imaging dated March 08, 2024 FINDINGS: Intramedullary jaden with dynamic hip screw and distal interlocking cancellus screws. Comminuted intertrochanteric fracture with minimal displacement again identified. No complicating features at this time. RAD/Femur Min 2 Views IMPRESSION: Osteopenia with ORIF of left femur without complications at this time. Electronically Signed: Miah Huang MD at 15:19 EDT ,
[2024-03-24] MEDS: Metoprolol Tartrate 25 MG Tablet 12.5 MG PO ×2 (09:54→21:18)
[2024-03-24] MEDS: 0.9% Saline Lock 10 ML Syringe IV (09:58)
[2024-03-24] MEDS: Caffeine 200 MG Tablet 300 MG PO ×2 (11:51→16:54)
[2024-03-24] MEDS: Tamsulosin HCl 0.4 MG Capsule PO (16:56)
[2024-03-24] MEDS: metFORMIN HCl 500 MG Tablet PO (16:56)
--- NOTE | 2024-03-24 17:14 | NURSING ---
FIRST BLADDER SCAN AT 1700 FOR 233. CONTINUE VOIDING TRAILS
[2024-03-24] MEDS: MELATONIN 10 MG TABLET PO (21:19)
[2024-03-25] MEDS: Levothyroxine 150 MCG Tablet PO (05:13)
[2024-03-25] MEDS: Acyclovir 200 MG Capsule 400 MG PO ×3 (05:13→22:02)
[2024-03-25] MEDS: Acetaminophen 500 MG Tablet 1000 MG PO ×3 (05:13→21:58)
[2024-03-25] MEDS: oxyCODONE 5 MG Tablet 10 MG PO ×4 (05:13→23:19)
[2024-03-25 06:31] LABS: Bedside Glucose 131 mg/dL (74-106)
[2024-03-25 08:37] VITALS: BP 100/46; PULSE 91; RESP 18; O2SAT 92
[2024-03-25] MEDS: Gabapentin 100 MG Capsule PO ×3 (08:39→17:43)
[2024-03-25 08:40] VITALS: PULSE 91
[2024-03-25] MEDS: Enoxaparin 40 MG/0.4 ML Syringe SC (08:40)
[2024-03-25] MEDS: Ascorbic Acid 500 MG Tablet PO (08:40)
[2024-03-25] MEDS: Metoprolol Tartrate 25 MG Tablet 12.5 MG PO ×2 (08:40→22:00)
[2024-03-25] MEDS: Multivitamins,Ther W-Minerals Tablet 1 TABLET PO (08:41)
[2024-03-25] MEDS: Senna/Docusate Sodium 1 Tablet 2 TABLET PO ×2 (08:41→21:58)
[2024-03-25] MEDS: Loratadine 10 MG Tablet PO (08:41)
[2024-03-25] MEDS: Pantoprazole Sodium 40 MG Tablet PO ×2 (08:41→21:59)
[2024-03-25] MEDS: buPROPion (XL) 300 MG TABLET.XL PO (08:41)
[2024-03-25] MEDS: Iron Polysaccharide Complex 150 MG CAPSULE PO (08:41)
[2024-03-25] MEDS: Polyethylene Glycol 3350 17 GM PACKET PO (08:42)
[2024-03-25] MEDS: Fluticasone 0.05% 1 SPRAY NASAL.SRY NASAL (08:42)
[2024-03-25] MEDS: Calcium Carbonate 500 MG Tablet PO ×3 (08:42→17:44)
[2024-03-25] MEDS: metFORMIN HCl 1,000 MG Tablet 1000 MG PO (08:42)
[2024-03-25] MEDS: cycloBENZAPRine HCl 5 MG TABLET PO ×3 (08:45→22:06)
--- NOTE | 2024-03-25 11:39 | PN.ORTHO_ITS ---
Subjective Subjective Patient seen and examined. Reports pain in her left thigh. She states she has good days and bad days as well as some painful nights. She has been ambulating with a walker with the assistance of physical therapy and nursing. She denies any fevers, chills, nausea vomiting, chest pain or shortness of breath. Objective Data Objective Data Vital Signs: Vital Signs Temp Pulse Resp BP Pulse Ox O2 Del Method 98.3 F 91 18 100/46 L 92 Room Air 03/24/24 12:51 03/25/24 08:40 03/25/24 08:37 03/25/24 08:37 03/25/24 08:37 03/25/24 08:37 Oxygen Delivery Method Room Air Weight: 134 lb 14.4 oz Body Mass Index (BMI) 21.1 Intake & Output: Intake and Output for Last 24 Hours 03/23/24 03/24/24 03/25/24 23:59 23:59 23:59 Intake Total 825 / 825 500 / 500 240 / 240 Output Total 1650 / 1650 2900 / 2900 350 / 350 Balance -825 / -825 -2400 / -2400 -110 / -110 Lab / Micro Data 03/22/24 05:20 03/19/24 05:00 Labs: Laboratory Results - last 24 hr 03/25/24 06:14: POC Glucose 131 H Micro: Microbiology 03/17/24 10:00 Stool Stool Occult Blood (LOTTIE) - Final Occult Blood Positive Radiography Diagnostic Testing: Radiology Impression Femur X-Ray 03/24/24 08:53 IMPRESSION: Osteopenia with ORIF of left femur without complications at this time. Electronically Signed: Miah Huang MD at 15:19 EDT , Physical Exam Narrative General - A&Ox3, NAD. VSS/AF Left lower extremity -well-healing lateral hip/thigh incisions. Wound edges well-approximated shaylee, no erythema or drainage. SILT Sural, Saphenous, SPN, DPN, Tibial N. distributions. DP, PT 2+. BCR. DF, PF, EHL 5/5. No calf TTP. Assessment & Plan Assessment/Plan (1) Closed fracture of left hip: QUALIFIERS: Encounter type: initial encounter Qualified Code(s): S72.002A - Fracture of unspecified part of neck of left femur, initial encounter for closed fracture PLAN: 2.5 weeks status post left femur CMN -Continue to mobilize with physical therapy. X-rays reviewed from 03/24/2024 demonstrated appropriate alignment without evidence of hardware migration or screw cut out. -Nursing instructed to remove shaylee -Continue anticoagulant until 4 weeks postoperative. -Plan to follow-up with me as an outpatient 6 weeks following surgery with x- rays upon arrival.
--- NOTE | 2024-03-25 11:49 | NURSING ---
Dr. Lang in to assess pt this morning, entered order to remove shaylee. Removed 7 shaylee from left hip incision, 9 shaylee from left lateral upper thigh incision, and 4 shaylee from left knee incision. Some redness noted, no drainage noted to incision sites. Pt tolerated well.
[2024-03-25] MEDS: Caffeine 200 MG Tablet 300 MG PO (12:44)
[2024-03-25 13:43] VITALS: TEMP 36.6
[2024-03-25] MEDS: metFORMIN HCl 500 MG Tablet PO (17:43)
[2024-03-25] MEDS: Tamsulosin HCl 0.4 MG Capsule PO (17:43)
[2024-03-25] MEDS: 0.9% Saline Lock 10 ML Syringe IV ×2 (17:47→21:56)
[2024-03-25 20:00] VITALS: O2SAT 98
[2024-03-25] MEDS: Saliva Substitute 237 ML BOTTLE 15 ML MUCOUS MEM (20:10)
[2024-03-25] MEDS: MELATONIN 10 MG TABLET PO (21:58)
[2024-03-25 22:00] VITALS: BP 122/70; PULSE 83
[2024-03-25 22:14] VITALS: BP 122/70; PULSE 83
[2024-03-26] MEDS: Levothyroxine 150 MCG Tablet PO (05:53)
[2024-03-26] MEDS: Acyclovir 200 MG Capsule 400 MG PO ×3 (05:53→22:18)
[2024-03-26] MEDS: Acetaminophen 500 MG Tablet 1000 MG PO ×3 (05:53→22:18)
[2024-03-26 06:04] LABS: Absolute Lymphocyte Count 1.19 X10^3/uL (0.83-4.51); Absolute Neutrophil Count 6.6 X10^3/uL (2.0-7.7); Basophil# 0.04 X10^3/uL; Basophil% 0.5 % (0-1); Eosinophil# 0.38 X10^3/uL; Eosinophils% 4.3 % (0-5); Hematocrit 34.5 % (37-47); Lymphocyte # 1.19 X10^3/ul (0.83-4.51); Lymphocyte % 13.4 % (19-41); Mean Corp Hgb Conc 31.9 g/dL (32-36); Mean Corpuscular Hgb 32.7 pg (27.0-32.0); Mean Corpuscular Volume 102.7 fL (81-99); Mean Platelet Vol. 8.7 fl (6.2-12.0); Monocyte# 0.63 X10^3/uL; Monocyte% 7.1 % (0-10); NRBC Flagged by Analyzer 0 % (0-5); Neutrophil # 6.58 X10^3/uL (2.7-7.7); Neutrophil % 74.4 % (47-70); Platelet Count 368 K/mm3 (150-450); RBC Distribution Width CV 16.5 % (11.6-14.6); Red Blood Count 3.36 M/mm3 (4.2-5.4); White Blood Count 8.9 K/mm3 (4.4-11.0)
[2024-03-26 06:29] LABS: Bedside Glucose 133 mg/dL (74-106)
[2024-03-26 06:31] LABS: Anion Gap 5 (5-15); BUN 24 mg/dL (7-18); BUN/Creat Ratio 22.2 RATIO (10-20); Chloride 105 mmol/L (98-107); Creatinine, Serum 1.08 mg/dL (0.55-1.02); EST Glomerular Filtration Rate 53 mL/min (>60); Est Glom Filt Rate - Afr Amer 64 mL/min (>60); Estimated Creatinine Clearance 44.15 ml/min; Glucose 142 mg/dL (74-106); Potassium 3.7 mmol/L (3.5-5.1); Sodium Level 138 mmol/L (136-145)
[2024-03-26] MEDS: Gabapentin 100 MG Capsule PO ×3 (08:17→17:03)
[2024-03-26] MEDS: Calcium Carbonate 500 MG Tablet PO ×3 (08:21→17:05)
[2024-03-26] MEDS: metFORMIN HCl 1,000 MG Tablet 1000 MG PO (08:22)
[2024-03-26] MEDS: Multivitamins,Ther W-Minerals Tablet 1 TABLET PO (08:22)
[2024-03-26] MEDS: Fluticasone 0.05% 1 SPRAY NASAL.SRY NASAL (08:23)
[2024-03-26] MEDS: Iron Polysaccharide Complex 150 MG CAPSULE PO (08:23)
[2024-03-26] MEDS: Loratadine 10 MG Tablet PO (08:23)
[2024-03-26 08:24] VITALS: BP 116/60; PULSE 91
[2024-03-26] MEDS: Metoprolol Tartrate 25 MG Tablet 12.5 MG PO ×2 (08:24→22:19)
[2024-03-26] MEDS: Pantoprazole Sodium 40 MG Tablet PO ×2 (08:26→22:19)
[2024-03-26] MEDS: Ascorbic Acid 500 MG Tablet PO (08:26)
[2024-03-26] MEDS: Senna/Docusate Sodium 1 Tablet 2 TABLET PO ×2 (08:26→22:18)
[2024-03-26] MEDS: buPROPion (XL) 300 MG TABLET.XL PO (08:27)
[2024-03-26] MEDS: Enoxaparin 40 MG/0.4 ML Syringe SC (08:28)
[2024-03-26 08:34] VITALS: BP 116/60; PULSE 91
[2024-03-26] MEDS: oxyCODONE 5 MG Tablet 10 MG PO ×3 (10:06→19:56)
--- NOTE | 2024-03-26 10:35 | CASEMGMT ---
Social Work SW met with patient at bedside to discuss
--- NOTE | 2024-03-26 10:35 | CASEMGMT ---
Social Work SW met with patient at bedside to discuss discharge plans. Patient informed SW that she has been discussing things with her significant other. SW inquired about the patient's discussion. Patient informed SW that she was thinking about arranging home with care or placement. SW informed patient that significant other informed staff that he is unable to help patient with mobility. SW Patient inquired about insurance coverage. SW reviewed [employer] insurance information and educated patient on limitations to coverage at this time. SW informed patient that [facility] is expected upon clinical review. The patient inquired about potential continued stay. SW informed patient that due to limited progress, continued stay is not guaranteed. SW went over care home care in residential. Patient has both list for residential and assisted living provided to patient on previous encounter located on side table. During conversation patient received a call from significant other. Patient informed significant other that SW was present to discuss care plans. Significant other to be at bedside within 30 mins. SW to return upon arrival of significant other. Upon return to office SW received a [employer] insurance Notice of Medicare Non-Coverage letter with effective discontinuation of current snf services on 03/28/2024; expected discharge on 03/29/2024. SW met with patient to notify of letter. SW provided copy of letter and informed patient notification of [facility] will take place when significant other arrives. SW will continue to assist with discharge planning. [facility] Clayton
[2024-03-26] MEDS: 0.9% Saline Lock 10 ML Syringe IV (11:42)
[2024-03-26] MEDS: Caffeine 200 MG Tablet 300 MG PO ×2 (11:47→17:06)
[2024-03-26 14:00] VITALS: BP 97/59; PULSE 80; RESP 16; TEMP 36.4; O2SAT 98
--- NOTE | 2024-03-26 14:07 | CASEMGMT ---
Addendum entered by Dio Ramirez 03/26/24 16:23: [facility] and [facility] are able to accept. Patient notified to contact facility for placement. Original Note: Social Work MARKY and MARKY [employer]ling [employer]er, Blanca met with patient and significant other at bedside to sign Notice of Medicare Non-Coverage of current half-way facility effective: 03/28/2024 MARKY educated patient and significant other of [facility] and [employer] Medicare Appeal process. Patient was provided a copy at bedside to review. Patient's significant other inquired about [facility] information and read document at bedside. Patient's significant other request a copy. MARKY informed patient and significant other that a copy will be provided to patient after signature from patient is completed to certify and acknowledge notification of [facility]. Patient's significant other inquired about difference between [facility] and assisted living. Blanca NEGRO educated patient and significant other of [facility] and assisted living. Patient was notified that retirement care will require private pay for room and board. Patient provided verbal understanding of [facility] and required plan for discharge disposition. Patient provided LTC [facility] choice of [facility] and [facility]. MARKY submitted referral via [facility]. [facility] and [facility] are able to accept patient upon review of referral. MARKY notified Physician, Dr. Glez SW submitted referral to [facility] for front wheeled walker per recommendations of therapy services. [facility] Clayton
--- NOTE | 2024-03-26 14:18 | DS.PCM_ITS ---
Providers Date of Admission: 03/11/24 Primary Care Physician: Dr. Praveen Lutz, DO Consultations 03/17/24 17:21 Consult: Gastroenterology Routine Consulting Provider: [facility] Reason for Consult: Anemia, +stool guaiac. EMERGENT Consult: No MD Notified: Yes Date Notified: 03/18/24 Time Notified: 11:07 Method of Notification: Text Reason For Visit: LEFT HIP FRACTURE STATUS POST FALL Diagnosis Discharge Diagnosis (1) Closed fracture of left hip: Status: Resolved Code(s): S72.002A - Fracture of unspecified part of neck of left femur, initial encounter for closed fracture Qualifiers: Encounter type: initial encounter Qualified Code(s): S72.002A - Fracture of unspecified part of neck of left femur, initial encounter for closed fracture Plan 74 year old female with below past medical history hospitalized for left hip fracture, underwent left femur IM nail fixation 03/08/[address], admitted to TCU with debility, here for rehabilitation, strengthening, prior to discharge home alone. * Debility - PT/OT. * Cognition - ST. * Pain - Tylenol 1000mg q8, Oxycodone 10mg q4 prn pain (6-10). * Bowel - senna/colace 2 tablets bid, Magnesium citrate 300ml daily prn. * Adult immunization - Administer pneumonia vaccine, covid vaccine, flu vaccine as appropriate. * DVT prophylaxis - Lovenox 40mg sc daily. * HSV - Acyclovir 400mg tid. * Depression - Bupropion XL 300mg qam. * GERD - Pantoprazole 40mg qhs, TUMS 500mg po tidcm. * Muscle spasm - Flexeril 5mg tid prn. * Vitamin D deficiency - Vitamin D 1.25mg qweek. * Allergic rhinitis - Flonase 1 spray nasal daily, Loratadine 10mg daily. * Hypothyroidism - Levothyroxine 150mcg daily. * Hypertension - Lisinopril 5mg daily. * Diabetes Mellitus II - Metformin 1000mg qam, 500mg qpm. * Nutrition - MVI 1 tablet daily. * Dry mouth - Biotene 5x/day prn. Medications at Discharge Home Medications bupropion HCl 300 mg 24 hr tablet, extended release (Wellbutrin XL) 300 mg PO QAM depression 11/20/18 multivitamin with minerals-folic acid 0.4 mg tablet (Adult One Daily Multivitamin) 1 tab PO DAILY vitamin 11/20/18 fluticasone propionate 50 mcg/actuation nasal spray,suspension 1 spray NASAL DAILY allergies 06/22/20 loratadine 10 mg capsule 10 mg PO DAILY allergie 06/22/20 metformin 500 mg tablet 1,000 mg PO DAILY diabetes 08/04/20 levothyroxine 175 mcg tablet (Synthroid) 150 mcg PO DAILY hypothyroid 01/30/22 metformin 500 mg tablet 500 mg PO QHS diabetes 06/28/22 valacyclovir 500 mg tablet 500 mg PO BID antibiotic 03/07/24 acetaminophen 500 mg tablet 1,000 mg (2 x 500 mg) PO Q8 pain #0 tabs 03/11/24 calcium carbonate 500 mg (2.5 x 200 mg calcium (500 mg)) PO TIDCM acid reflux/indigestion #0 tabs 03/11/24 cyclobenzaprine 5 mg tablet 5 mg PO TID PRN PRN Muscle Spasm #0 tabs 03/11/24 ergocalciferol (vitamin D2) 1,250 mcg (50,000 unit) capsule (Vitamin D2) 1,250 mcg PO Q7D supplement #7 caps 03/11/24 Caffeine [No Doz] 300 mg PO DINNER ##0 03/26/24 Caffeine [No Doz] 300 mg PO LUNCH ##0 03/26/24 ascorbic acid (vitamin C) 500 mg tablet 500 mg PO 1000 #0 tabs 03/26/24 enoxaparin 40 mg/0.4 mL subcutaneous syringe 40 mg (0.4 mL) subcut DAILY #0 mL 03/26/24 gabapentin 100 mg capsule 100 mg PO TIDCM #0 caps 03/26/24 melatonin 10 mg sublingual tablet 10 mg PO QHS #0 tabs 03/26/24 metoprolol tartrate 25 mg tablet 12.5 mg (1/2 x 25 mg) PO BID #0 tabs 03/26/24 oxycodone 5 mg tablet 10 mg (2 x 5 mg) PO Q4H PRN PRN pain 6-10 3 days #36 tabs 03/26/24 pantoprazole 40 mg tablet,delayed release 40 mg PO BID #0 tabs 03/26/24 polysaccharide iron complex 150 mg iron capsule (Ferrex) 150 mg PO DAILY #0 caps 03/26/24 saliva substitute combo no.9 (Biotene Dry Mouth Oral Rinse mouthwash) 15 ml mucous membrane 5X/DAY PRN Dry Mouth #0 mL 03/26/24 sennosides 8.6 mg-docusate sodium 50 mg tablet (Stool Softener-Stimulant Laxative) 2 tab PO BID #0 tabs 03/26/24 tamsulosin 0.4 mg capsule 0.4 mg PO DAILY@1730 #0 caps 03/26/24 Hospital Course Operations None Procedures EGD Summary of Care Provided Minutes Spent on Discharge: 35 Hospital Course: 74 year old female with below past medical history hospitalized for left hip fracture, underwent left femur IM nail fixation 03/08/[address] Lang, admitted to TCU with debility, here for rehabilitation, strengthening, prior to discharge home alone. 03/19/2024 Dr. Wells EGD. Impressions : - Normal esophagus. - Red blood in the gastric fundus. - Oozing gastric ulcers with pigmented material. Treated with a heater probe. - Acute gastritis. Biopsied. - Normal second portion of the duodenum. Recommendations : - Return patient to hospital waite for ongoing care. - Resume previous diet. - Use Protonix (pantoprazole) 40 mg PO BID. - Continue present medications. Discharge to SNF 03/29/2024, intermediate, part b therapies. Physical Exam Const alert General Appearance: cooperative HEENT normocephalic Eyes PERRL and EOMs intact bilaterally Neck supple, no JVD and no carotid bruits Resp normal respiratory effort, normal air movement and clear to auscultation bilaterally Cardio regular rate and regular rhythm GI normal to inspection, nondistended, normoactive bowel sounds, non-tender and non-distended Extremity normal capillary refill General Extremity: Negative for edema Skin no rashes or lesions noted General Skin Exam: no breakdown Psych affect normal Appearance: appropriate Weight / BMI Weight Weight: 61.19 kg Body Mass Index (BMI) 21.1 ABG / Lab / Microbiology Data 03/26/24 05:15 03/26/24 05:15 Laboratory: Laboratory Results - last 24 hr 03/26/24 05:15: WBC 8.9, RBC 3.36 L, Hgb 11.0 L, Hct 34.5 L, MCV 102.7 H, MCH 32.7 H, MCHC 31.9 L, RDW Std Deviation 62.0 H, RDW Coeff of [place] 16.5 H, Plt Count 368, MPV 8.7, Immature Gran % (Auto) 0.300, Neut % (Auto) 74.4 H, Lymph % (Auto) 13.4 L, Chambers % (Auto) 7.1, Eos % (Auto) 4.3, Baso % (Auto) 0.5, Absolute Neuts (auto) 6.6, Absolute Lymphs (auto) 1.19, Nucleated RBC % 0, Sodium 138, Potassium 3.7, Chloride 105, Carbon Dioxide 28.0, Anion Gap 5, BUN 24 H, Creatinine 1.08 H, Estim Creat Clear Calc 44.15, Est GFR (MDRD) Af Amer 64, Est GFR (MDRD) Non-Af 53 L, BUN/Creatinine Ratio 22.2 H, Glucose 142 H, Calcium 9.0 03/26/24 05:59: POC Glucose 133 H Microbiology: Microbiology 03/17/24 10:00 Stool Stool Occult Blood (LOTTIE) - Final Occult Blood Positive D/C Instructions Discharge Diet: No restrictions Discharge Activity: Return to Normal Activity, May Shower and Use Walker Weight Bearing Status: Weight bearing as tolerated Call your doctor if you observe: Fever of 101 or Higher, Inability to urinate, Inability to have a bowel movement, Shortness of breath, Dizziness, Fainting spells, Swelling in the ankles, Chest pain and Uncontrolled pain Additional Instructions: Discharge to SNF 03/29/2024, intermediate, part b therapies. Please Follow Up With: Alireza Lang DO When: As scheduled. Meaningful Use Info Meaningful Use Meaningful Use Diagnoses (Choose all that apply): None applicable Ischemic Stroke Statin Dosing Therapy Reference: STATIN DOSE THERAPY REFERENCE: * Patients > 75 years receive moderate or high dose statin therapy. * Patients 75 years or YOUNGER should receive HIGH intensity statin dose unless contraindicated. You will be required to document reason for non-treatment if statin daily dose does not meet guidelines. HIGH DOSE STATIN THERAPY DAILY Atorvastatin > than or = to 40 mg Rosuvastatin > than or = to 20 mg Amlodipine + Atorvastatin > than or = to 2.5/40 mg Ezetimibe + Simvastatin 10/80 mg Simvastatin 80mg Discharge Plan Admission Admit Date/Time: 03/11/24 13:43 Primary Reason for Your Visit: Debility. Attending Provider: Moise Glez Chi Primary Care Provider: Praveen Lutz Instructions Additional Instructions / Restrictions: Discharge to SNF 03/29/2024, intermediate, part b therapies. Discharge Orders/Prescriptions Prescriptions: New sennosides-docusate sodium [Stool Softener-Stimulant Laxat] 8.6-50 mg Tablet 2 tab PO BID Qty: 0 0RF pantoprazole 40 mg Tablet,Delayed Release (Dr/Ec) 40 mg PO BID Qty: 0 0RF ascorbic acid (vitamin C) 500 mg Tablet 500 mg PO 1000 Qty: 0 0RF oxycodone 5 mg Tablet 10 mg PO Q4H PRN PRN (Reason: pain 6-10) 3 Days Qty: 36 0RF polysaccharide iron complex [Ferrex 150] 150 mg iron Capsule 150 mg PO DAILY Qty: 0 0RF gabapentin 100 mg Capsule 100 mg PO TIDCM Qty: 0 0RF enoxaparin 40 mg/0.4 mL Syringe 40 mg subcut DAILY Qty: 0 0RF Caffeine [No Doz] 300 mg PO DINNER Qty: 0 0RF Caffeine [No Doz] 300 mg PO LUNCH Qty: 0 0RF tamsulosin 0.4 mg Capsule 0.4 mg PO DAILY@1730 Qty: 0 0RF metoprolol tartrate 25 mg Tablet 12.5 mg PO BID Qty: 0 0RF Biotene Dry Mouth Oral Rinse Mouthwash 15 ml mucous membrane 5X/DAY PRN (Reason: Dry Mouth) Qty: 0 0RF melatonin 10 mg Tablet, Sublingual 10 mg PO QHS Qty: 0 0RF Continued multivit with min-folic acid [Adult One Daily Multivitamin] 0.4 mg tablet 1 tab PO DAILY bupropion HCl [Wellbutrin XL] 300 mg tablet extended release 24 hr 300 mg PO QAM metformin 500 mg tablet 1,000 mg PO DAILY fluticasone propionate 1 SPRAY spray,suspension 1 spray NASAL DAILY loratadine 10 MG capsule 10 mg PO DAILY levothyroxine [Synthroid] 175 mcg tablet 150 mcg PO DAILY metformin 500 mg Tablet 500 mg PO QHS valacyclovir 500 mg tablet 500 mg PO BID acetaminophen 500 mg Tablet 1,000 mg PO Q8 Qty: 0 0RF calcium carbonate 200 mg calcium (500 mg) Tablet,Chewable 500 mg PO TIDCM Qty: 0 0RF cyclobenzaprine 5 mg Tablet 5 mg PO TID PRN PRN (Reason: Muscle Spasm) Qty: 0 0RF ergocalciferol (vitamin D2) [Vitamin D2] 1,250 mcg (50,000 unit) Capsule 1,250 mcg PO Q7D Qty: 7 0RF Discontinued omeprazole 40 mg capsule,delayed release(DR/EC) 40 mg PO QHS estradiol 0.01 % (0.1 mg/gram) cream See Rx Instructions vaginal .COMPLEX Qty: 42.5 2RF Rx Instructions: small amount as directed vaginal every other day X 4 weeks then twice a week; mometasone 0.1 % ointment 1 applic topical .COMPLEX Qty: 15 2RF Rx Instructions: 1 applic topical small amount as directed and rub in daily X 1 week prn with symptoms lisinopril 5 mg tablet 5 mg PO DAILY enoxaparin 40 mg/0.4 mL Syringe 40 mg subcut DAILY@0600 28 Days Qty: 4 0RF sennosides-docusate sodium [Stool Softener-Stimulant Laxat] 8.6-50 mg Tablet 2 tab PO BID PRN PRN (Reason: Constipation) Qty: 0 0RF oxycodone 5 mg Tablet 10 mg PO Q6H PRN (Reason: pain (scale score 6-10)) 3 Days Qty: 12 0RF gabapentin [Neurontin] 100 mg capsule 100 mg PO TID C Complex 1,000 mg tablet extended release 1,000 mg PO DAILY tamsulosin [Flomax] 0.4 mg capsule 0.4 mg PO DAILY metoprolol tartrate [Lopressor] 50 mg tablet 25 mg PO BID melatonin 10 mg tablet 10 mg PO QHS polysaccharide iron complex [Ferrex 150] 150 mg iron capsule 150 mg PO DAILY Referrals / Follow Up: Praveen Lutz DO [Primary Care Provider] - Alireza Lang DO [Med Staff - Active Staff] - Within 1 Month (L hip fracture, repair 03/08. shaylee out 03/25) Disposition Disposition (needs filled in before D/C Order can be placed): NonSkilled NH/Intermed Care
--- NOTE | 2024-03-26 14:27 | TREXTCAR_ITS ---
Diet Diet Order/Speech Therapy: 03/19/24 16:16 Diet: Regular - General Is pt able to select menu?: Yes Routine Orders/Code Status Code Status: DNRCC-A (No intubation.) Wound(s) LT HIP: Wound Type: Surgical Incision Dressing Change: Dry Sterile Dressing UPPER LT THIGH: Wound Type: Surgical Incision Dressing Change: Dry Sterile Dressing LEFT LOWER THIGH: Wound Type: Surgical Incision Dressing Change: Dry Sterile Dressing LEFT BICEP: Wound Type: Abrasion RT POST RIB AREA: Wound Type: Abrasion Therapies Weight Bearing: Weight bearing as tolerated Extremity Affected:: Left Lower Physical Therapy: Eval and Treat Occupational Therapy: Eval and Treat Problem/Diagnosis (1) Closed fracture of left hip: Status: Resolved Code(s): S72.002A - Fracture of unspecified part of neck of left femur, initial encounter for closed fracture Plan 74 year old female with below past medical history hospitalized for left hip fracture, underwent left femur IM nail fixation 03/08/[address] Lang, admitted to TCU with debility, here for rehabilitation, strengthening, prior to discharge home alone. * Debility - PT/OT. * Cognition - ST. * Pain - Tylenol 1000mg q8, Oxycodone 10mg q4 prn pain (6-10). * Bowel - senna/colace 2 tablets bid, Magnesium citrate 300ml daily prn. * Adult immunization - Administer pneumonia vaccine, covid vaccine, flu vaccine as appropriate. * DVT prophylaxis - Lovenox 40mg sc daily. * HSV - Acyclovir 400mg tid. * Depression - Bupropion XL 300mg qam. * GERD - Pantoprazole 40mg qhs, TUMS 500mg po tidcm. * Muscle spasm - Flexeril 5mg tid prn. * Vitamin D deficiency - Vitamin D 1.25mg qweek. * Allergic rhinitis - Flonase 1 spray nasal daily, Loratadine 10mg daily. * Hypothyroidism - Levothyroxine 150mcg daily. * Hypertension - Lisinopril 5mg daily. * Diabetes Mellitus II - Metformin 1000mg qam, 500mg qpm. * Nutrition - MVI 1 tablet daily. * Dry mouth - Biotene 5x/day prn. Allergies/Procedures Done in Hospital Allergies No Known Allergies Allergy (Verified 03/19/24 11:31) Procedures: None Type of Care/Length of Stay Estimated LOS: Convalescent Care Less Than 30 days Type of Care Needed: Intermediate Rehab Potential: Poor Prognosis: Fair Additional Orders/Day of Discharge Day of Discharge: 03/29/24 Dietary and Speech Recommendations Dietitian Recommendations/Changes: Continue liberal regular diet per res request. Follow Up Care Please Follow Up With: Alireza Lang DO When: 2 weeks Discharge Plan Admission Admit Date/Time: 03/11/24 13:43 Primary Reason for Your Visit: Debility. Attending Provider: Moise Glez Chi Primary Care Provider: Praveen Lutz Instructions Additional Instructions / Restrictions: Discharge to SNF 03/29/2024, intermediate, part b therapies. Discharge Orders/Prescriptions Prescriptions: New sennosides-docusate sodium [Stool Softener-Stimulant Laxat] 8.6-50 mg Tablet 2 tab PO BID Qty: 0 0RF pantoprazole 40 mg Tablet,Delayed Release (Dr/Ec) 40 mg PO BID Qty: 0 0RF ascorbic acid (vitamin C) 500 mg Tablet 500 mg PO 1000 Qty: 0 0RF oxycodone 5 mg Tablet 10 mg PO Q4H PRN PRN (Reason: pain 6-10) 3 Days Qty: 36 0RF polysaccharide iron complex [Ferrex 150] 150 mg iron Capsule 150 mg PO DAILY Qty: 0 0RF gabapentin 100 mg Capsule 100 mg PO TIDCM Qty: 0 0RF enoxaparin 40 mg/0.4 mL Syringe 40 mg subcut DAILY Qty: 0 0RF Caffeine [No Doz] 300 mg PO DINNER Qty: 0 0RF Caffeine [No Doz] 300 mg PO LUNCH Qty: 0 0RF tamsulosin 0.4 mg Capsule 0.4 mg PO DAILY@1730 Qty: 0 0RF metoprolol tartrate 25 mg Tablet 12.5 mg PO BID Qty: 0 0RF Biotene Dry Mouth Oral Rinse Mouthwash 15 ml mucous membrane 5X/DAY PRN (Reason: Dry Mouth) Qty: 0 0RF melatonin 10 mg Tablet, Sublingual 10 mg PO QHS Qty: 0 0RF Continued multivit with min-folic acid [Adult One Daily Multivitamin] 0.4 mg tablet 1 tab PO DAILY bupropion HCl [Wellbutrin XL] 300 mg tablet extended release 24 hr 300 mg PO QAM metformin 500 mg tablet 1,000 mg PO DAILY fluticasone propionate 1 SPRAY spray,suspension 1 spray NASAL DAILY loratadine 10 MG capsule 10 mg PO DAILY levothyroxine [Synthroid] 175 mcg tablet 150 mcg PO DAILY metformin 500 mg Tablet 500 mg PO QHS valacyclovir 500 mg tablet 500 mg PO BID acetaminophen 500 mg Tablet 1,000 mg PO Q8 Qty: 0 0RF calcium carbonate 200 mg calcium (500 mg) Tablet,Chewable 500 mg PO TIDCM Qty: 0 0RF cyclobenzaprine 5 mg Tablet 5 mg PO TID PRN PRN (Reason: Muscle Spasm) Qty: 0 0RF ergocalciferol (vitamin D2) [Vitamin D2] 1,250 mcg (50,000 unit) Capsule 1,250 mcg PO Q7D Qty: 7 0RF Discontinued omeprazole 40 mg capsule,delayed release(DR/EC) 40 mg PO QHS estradiol 0.01 % (0.1 mg/gram) cream See Rx Instructions vaginal .COMPLEX Qty: 42.5 2RF Rx Instructions: small amount as directed vaginal every other day X 4 weeks then twice a week; mometasone 0.1 % ointment 1 applic topical .COMPLEX Qty: 15 2RF Rx Instructions: 1 applic topical small amount as directed and rub in daily X 1 week prn with symptoms lisinopril 5 mg tablet 5 mg PO DAILY enoxaparin 40 mg/0.4 mL Syringe 40 mg subcut DAILY@0600 28 Days Qty: 4 0RF sennosides-docusate sodium [Stool Softener-Stimulant Laxat] 8.6-50 mg Tablet 2 tab PO BID PRN PRN (Reason: Constipation) Qty: 0 0RF oxycodone 5 mg Tablet 10 mg PO Q6H PRN (Reason: pain (scale score 6-10)) 3 Days Qty: 12 0RF gabapentin [Neurontin] 100 mg capsule 100 mg PO TID C Complex 1,000 mg tablet extended release 1,000 mg PO DAILY tamsulosin [Flomax] 0.4 mg capsule 0.4 mg PO DAILY metoprolol tartrate [Lopressor] 50 mg tablet 25 mg PO BID melatonin 10 mg tablet 10 mg PO QHS polysaccharide iron complex [Ferrex 150] 150 mg iron capsule 150 mg PO DAILY Referrals / Follow Up: Praveen Lutz DO [Primary Care Provider] - Alireza Lang DO [Med Staff - Active Staff] - Within 1 Month (L hip fracture, repair 03/08. shaylee out 03/25) Disposition Disposition (needs filled in before D/C Order can be placed): NonSkilled NH/Intermed Care (1) Closed fracture of left hip Qualifiers: Encounter type: initial encounter Qualified Code(s): S72.002A - Fracture of unspecified part of neck of left femur, initial encounter for closed fracture
[2024-03-26] MEDS: Tamsulosin HCl 0.4 MG Capsule PO (17:05)
[2024-03-26] MEDS: metFORMIN HCl 500 MG Tablet PO (17:07)
[2024-03-26 17:13] VITALS: BP 125/74; PULSE 82
[2024-03-26] MEDS: cycloBENZAPRine HCl 5 MG TABLET PO (18:20)
[2024-03-26 22:19] VITALS: BP 127/69; PULSE 92
[2024-03-26] MEDS: MELATONIN 10 MG TABLET PO (22:19)
[2024-03-26 22:20] VITALS: PULSE 92; O2SAT 93
[2024-03-27] MEDS: oxyCODONE 5 MG Tablet 10 MG PO ×2 (00:31→11:37)
[2024-03-27] MEDS: Acyclovir 200 MG Capsule 400 MG PO ×3 (05:59→21:02)
[2024-03-27] MEDS: Acetaminophen 500 MG Tablet 1000 MG PO ×3 (05:59→21:02)
[2024-03-27] MEDS: Levothyroxine 150 MCG Tablet PO (05:59)
[2024-03-27 06:25] VITALS: PULSE 76; O2SAT 93
[2024-03-27 07:06] LABS: Bedside Glucose 130 mg/dL (74-106)
[2024-03-27 08:45] VITALS: BP 109/61; PULSE 97; RESP 16; TEMP 36.8; O2SAT 94
[2024-03-27] MEDS: Gabapentin 100 MG Capsule PO ×3 (08:46→17:32)
[2024-03-27 08:47] VITALS: PULSE 97
[2024-03-27] MEDS: metFORMIN HCl 1,000 MG Tablet 1000 MG PO (08:47)
[2024-03-27] MEDS: Iron Polysaccharide Complex 150 MG CAPSULE PO (08:47)
[2024-03-27] MEDS: Loratadine 10 MG Tablet PO (08:47)
[2024-03-27] MEDS: Metoprolol Tartrate 25 MG Tablet 12.5 MG PO ×2 (08:47→21:04)
[2024-03-27] MEDS: Multivitamins,Ther W-Minerals Tablet 1 TABLET PO (08:47)
[2024-03-27] MEDS: Polyethylene Glycol 3350 17 GM PACKET PO (08:48)
[2024-03-27] MEDS: Senna/Docusate Sodium 1 Tablet 2 TABLET PO ×2 (08:49→21:03)
[2024-03-27] MEDS: Pantoprazole Sodium 40 MG Tablet PO ×2 (08:49→21:02)
[2024-03-27] MEDS: Calcium Carbonate 500 MG Tablet PO ×3 (08:50→17:37)
[2024-03-27] MEDS: Ascorbic Acid 500 MG Tablet PO (08:50)
[2024-03-27] MEDS: buPROPion (XL) 300 MG TABLET.XL PO (08:51)
[2024-03-27] MEDS: Fluticasone 0.05% 1 SPRAY NASAL.SRY NASAL (08:51)
[2024-03-27] MEDS: Enoxaparin 40 MG/0.4 ML Syringe SC (08:52)
[2024-03-27] MEDS: Caffeine 200 MG Tablet 300 MG PO ×2 (11:39→17:32)
[2024-03-27] MEDS: metFORMIN HCl 500 MG Tablet PO (17:33)
[2024-03-27] MEDS: Tamsulosin HCl 0.4 MG Capsule PO (17:33)
[2024-03-27 21:00] VITALS: BP 101/53; PULSE 94
[2024-03-27 21:04] VITALS: BP 101/53; PULSE 94
[2024-03-27] MEDS: MELATONIN 10 MG TABLET PO (21:06)
[2024-03-28] MEDS: oxyCODONE 5 MG Tablet 10 MG PO ×3 (04:11→23:35)
[2024-03-28] MEDS: Acyclovir 200 MG Capsule 400 MG PO ×3 (05:31→21:14)
[2024-03-28] MEDS: Levothyroxine 150 MCG Tablet PO (05:31)
[2024-03-28] MEDS: Acetaminophen 500 MG Tablet 1000 MG PO ×3 (05:31→21:17)
[2024-03-28] MEDS: Saliva Substitute 237 ML BOTTLE 15 ML MUCOUS MEM (05:32)
[2024-03-28 06:12] LABS: Bedside Glucose 138 mg/dL (74-106)
[2024-03-28] MEDS: Fluticasone 0.05% 1 SPRAY NASAL.SRY NASAL (07:56)
[2024-03-28] MEDS: cycloBENZAPRine HCl 5 MG TABLET PO (07:56)
[2024-03-28] MEDS: Multivitamins,Ther W-Minerals Tablet 1 TABLET PO (07:56)
[2024-03-28] MEDS: Gabapentin 100 MG Capsule PO ×3 (07:56→17:04)
[2024-03-28] MEDS: Calcium Carbonate 500 MG Tablet PO ×3 (07:56→17:05)
[2024-03-28] MEDS: Ascorbic Acid 500 MG Tablet PO (07:57)
[2024-03-28] MEDS: Senna/Docusate Sodium 1 Tablet 2 TABLET PO ×2 (07:57→21:17)
[2024-03-28] MEDS: Iron Polysaccharide Complex 150 MG CAPSULE PO (07:57)
[2024-03-28] MEDS: buPROPion (XL) 300 MG TABLET.XL PO (07:58)
[2024-03-28] MEDS: Pantoprazole Sodium 40 MG Tablet PO ×2 (07:58→21:17)
[2024-03-28] MEDS: Loratadine 10 MG Tablet PO (07:59)
[2024-03-28] MEDS: Polyethylene Glycol 3350 17 GM PACKET PO (07:59)
[2024-03-28] MEDS: Enoxaparin 40 MG/0.4 ML Syringe SC (08:00)
[2024-03-28] MEDS: metFORMIN HCl 1,000 MG Tablet 1000 MG PO (08:03)
[2024-03-28 08:05] VITALS: BP 125/71; PULSE 84
[2024-03-28] MEDS: Metoprolol Tartrate 25 MG Tablet 12.5 MG PO ×2 (08:05→21:15)
[2024-03-28 08:12] VITALS: BP 125/71; PULSE 84
[2024-03-28 08:30] VITALS: BP 135/82; PULSE 95; RESP 18; TEMP 37.1; O2SAT 99
--- NOTE | 2024-03-28 09:30 | NURSING ---
significant other here with questions regarding DC tomorrow. Reviewed FORWARD AIR CONTROLLER/AIR OFFICER note and noted that [facility]. phone numbers given to pt and sig other to call both facilities. pt concerned about cost difference in both facilities. explained to pt and partner to have questions wrote down and ask them at both facilities to direct their decision making. pt and sig other satisfied at this time and will await facility choice.
--- NOTE | 2024-03-28 11:37 | NURSING ---
AT 0830 THIS NURSE HEARD ALL STAFF LIGHT TO ROOM. THIS NURSE TO ROOM AND FOUND PT SITTING ON FLOOR IN BATH ROOM AND SANDER OPERATOR STANDING BESIDE PT. ASKED SANDER OPERATOR WHAT HAPPENED,SANDER OPERATOR STATED SHE GOT PT OFF OF TOILET AND HAD PT SIT BACK DOWN TO GO GET GATE BELT AND TOLD PT TO NOT GET UP. SANDER OPERATOR WENT TO GET BELT AND WENT BACK IN BATH ROOM AND FOUND PT STANDING AGAINST WALL SLIDING DOWN WALL TO A SITTING POSITION. PER SANDER OPERATOR PT DID NOT HIT HEAD. THIS NURSE ASKED PT WHAT HAPPENED. PT STATED I GOT UP AND SAT ON FLOOR. ASKED PT IF SHE HIT HER HEAD OR IF ANY THING WAS HURTING. PT STATED NO. CALLED RN TO ROOM. VITALS DONE, ASSESS PT,NO INJURIES SEEN AT THIS TIME. X2 ASSIST TO GET UP AND PLACED PT IN RECLINER. THIS NURSE AGAIN EDUCATED PT ON NOT GETTING UP WITH OUT HELP. PT JUST LOOKED AT THIS NURSE AND SMILED. STRADDLE CARRIER OPERATOR,,ÁNGELA PATRICIO,YUN HINKLE, SREEDHAR RANDOLPH, NEXT OF KIN NOTIFIED.
[2024-03-28] MEDS: Caffeine 200 MG Tablet 300 MG PO ×2 (11:54→17:05)
[2024-03-28 14:00] VITALS: BP 111/72; PULSE 86; RESP 22; TEMP 36.4; O2SAT 94
[2024-03-28 16:10] VITALS: PULSE 93; RESP 16; O2SAT 97
[2024-03-28] MEDS: metFORMIN HCl 500 MG Tablet PO (17:05)
[2024-03-28] MEDS: Tamsulosin HCl 0.4 MG Capsule PO (17:05)
[2024-03-28 21:15] VITALS: BP 117/62; PULSE 87
[2024-03-28] MEDS: MELATONIN 10 MG TABLET PO (21:17)
[2024-03-29] MEDS: Levothyroxine 150 MCG Tablet PO (05:49)
[2024-03-29] MEDS: oxyCODONE 5 MG Tablet 10 MG PO ×2 (05:49→13:26)
[2024-03-29] MEDS: Acetaminophen 500 MG Tablet 1000 MG PO ×2 (05:49→13:23)
[2024-03-29] MEDS: Acyclovir 200 MG Capsule 400 MG PO ×2 (05:50→13:23)
[2024-03-29 06:28] LABS: Bedside Glucose 135 mg/dL (74-106)
[2024-03-29 06:56] VITALS: PULSE 82; RESP 14; O2SAT 96
[2024-03-29] MEDS: Saliva Substitute 237 ML BOTTLE 15 ML MUCOUS MEM (07:34)
[2024-03-29] MEDS: Gabapentin 100 MG Capsule PO ×2 (07:41→11:46)
[2024-03-29] MEDS: Calcium Carbonate 500 MG Tablet PO ×2 (07:45→11:47)
[2024-03-29] MEDS: metFORMIN HCl 1,000 MG Tablet 1000 MG PO (07:46)
[2024-03-29] MEDS: Multivitamins,Ther W-Minerals Tablet 1 TABLET PO (07:46)
[2024-03-29] MEDS: Iron Polysaccharide Complex 150 MG CAPSULE PO (07:47)
[2024-03-29] MEDS: Loratadine 10 MG Tablet PO (07:47)
[2024-03-29] MEDS: Fluticasone 0.05% 1 SPRAY NASAL.SRY NASAL (07:47)
[2024-03-29 07:48] VITALS: BP 126/75; PULSE 86
[2024-03-29] MEDS: Metoprolol Tartrate 25 MG Tablet 12.5 MG PO (07:48)
[2024-03-29] MEDS: Pantoprazole Sodium 40 MG Tablet PO (07:49)
[2024-03-29] MEDS: Senna/Docusate Sodium 1 Tablet 2 TABLET PO (07:49)
[2024-03-29] MEDS: buPROPion (XL) 300 MG TABLET.XL PO (07:50)
[2024-03-29] MEDS: Ergocalciferol 1.25 MG (50, 000 UNIT) Capsule PO (07:50)
[2024-03-29] MEDS: Ascorbic Acid 500 MG Tablet PO (07:50)
[2024-03-29] MEDS: Enoxaparin 40 MG/0.4 ML Syringe SC (07:52)
[2024-03-29 07:58] VITALS: BP 126/75; PULSE 86
--- NOTE | 2024-03-29 10:55 | CASEMGMT ---
Social Work SW received voicemail from staff informing SW that the patient is stating that she is not leaving today and wanted meeting with SW. SW met with patient at bedside. SW provided patient with DME walker at bedside. SW provided patient with [employer] proof of delivery form. Patient completed Proof of Delivery form and provided copy at bedside. SW inquired about patient transition of care plans. Patient informed SW that Yoav and I have discussed and I believe we are going with the one on [place]. SW clarified whether choice is [facility] or [facility]. Patient informed SW that she would like to go to [facility]. Patient informed SW that she is unaware of plan to get to facility. SW discussed transportation via private vehicle v. wheelchair transport with potential out of pocket cost. Patient attempted to contact significant other, Lucas; no answer. Patient informed SW that she will have significant other come to hospital to discuss discharge. SW completed discharge MDS with patient. Patient BIM () and PhQ-9 (08/20). Patient expressed feeling of being down due to limited functional ability. Patient informed SW that she felt like she had lack of energy and sleep issues related to medical status, pain medications, and change in environment being in TCU. SW discussed progress with therapy. Patient informed SW that she is working with therapy, but she is unsure when she can return home. SW is awaiting arrival of patient's significant other. SW contacted [facility] Laughlin requesting follow up. RENNY Clayton
--- NOTE | 2024-03-29 11:38 | CASEMGMT ---
Social Work MARYK received a call from [facility] informing SW that the patient's significant other sent an e-mail with questions and went to facility to obtain a driver guide. Timothy informed SW that she contacted patient's significant other to answer questions provided via e-mail. SW met with patient and significant other, Lucas. Lucas informed SW that he does not understand the process for placement. SW reviewed alf facility, intermediate care facility, assisted living Lucas informed SW that he would like to appeal discharge. SW reviewed patient discharge plans for placement at a group home facility. SW informed Patient that she would need to provide private pay at [facility]. Patient and significant other requested that SW leave room for privacy to discuss. SW left room. Lucas informed SW that he would like patient to discharge to [facility]. SW inquired about transportation options. Lucas informed SW that he is unable to provide transportation for patient to discharge to [facility]. SW reviewed out of pocket cost for wheelchair van. Patient is agreeable to transport via Wheelchair van. [facility] informed SW that they can provide transportation within the next hour to [facility]. MARKY notified Mahogany ARAUZ. Patient has been assigned to bed 500-2. SW completed patient PASSR. Patient and significant other was notified of transportation time. Staff notified of transportation arrangements. RENNY Clayton
[2024-03-29] MEDS: Caffeine 200 MG Tablet 300 MG PO (11:46)
[2024-03-29 13:00] VITALS: BP 141/78; PULSE 87; RESP 18; TEMP 36.6; O2SAT 97
== END 2024-03-29 13:30 | disposition intermediate care facility (04) | DRG 559 ==
PROVIDERS: Admitting Provider Family Medicine Geriatric Medicine; PCP Family Medicine; Visit Provider Family Medicine Geriatric Medicine
DX: S72.002D Fracture of unspecified part of neck of left femur, subsequent encounter for closed fracture with routine healing (principal); K25.4 Chronic or unspecified gastric ulcer with hemorrhage; D62 Acute posthemorrhagic anemia; E11.40 Type 2 diabetes mellitus with diabetic neuropathy, unspecified; M06.9 Rheumatoid arthritis, unspecified; E03.9 Hypothyroidism, unspecified; I10 Essential (primary) hypertension; F32.A Depression, unspecified; K21.9 Gastro-esophageal reflux disease without esophagitis; E55.9 Vitamin D deficiency, unspecified; F17.210 Nicotine dependence, cigarettes, uncomplicated; J30.9 Allergic rhinitis, unspecified; W19.XXXD Unspecified fall, subsequent encounter; K29.00 Acute gastritis without bleeding; B00.9 Herpesviral infection, unspecified; Z79.84 Long term (current) use of oral hypoglycemic drugs; Z79.01 Long term (current) use of anticoagulants; Z79.899 Other long term (current) drug therapy
CPT/HCPCS: 36415; 73552; 80048; 82274; 82962; 83540; 83550; 85014; 85018; 85025; 86850; 86900; 86901; 86920; 86922; 92523; 97110; 97116; 97162; 97166; 97530; 97535; 97802; 99406; A4216; J2405

== ENCOUNTER 2024-03-13 10:44 | Outpatient (CLI) | payer MEDICARE, SELFPAY ==
[2024-03-13] VITALS (8 sets, daily range): BP systolic 118–144; BP diastolic 65–80; PULSE 96–193; RESP 16; TEMP 36.7–37; O2SAT 92–96
[2024-03-13] MEDS: 0.9% Saline Lock 10 ML Syringe IV ×3 (13:50→16:55)
== END 2024-03-13 17:40 | disposition home or self-care (01) ==
LOC: MEDOUTP 10:46 → PCU 10:47
PROVIDERS: PCP Family Medicine; Referring Provider Family Medicine Geriatric Medicine; Visit Provider Family Medicine Geriatric Medicine
DX: Z96.649 Presence of unspecified artificial hip joint (principal)
CPT/HCPCS: 36415; 36430; 86644; 86850; 86900; 86901; 86920; 86922; J7040; P9016; A4216

== ENCOUNTER 2024-03-19 11:13 | Day surgery (SDC) | payer MEDICARE, SELFPAY ==
[2024-03-19] VITALS (7 sets, daily range): BP systolic 99–126; BP diastolic 56–71; PULSE 86–91; RESP 14–18; TEMP 36.5–36.8; O2SAT 94–97; BMI 21.2
[2024-03-19 11:56] LABS: Bedside Glucose 151 mg/dL (74-106)
--- NOTE | 2024-03-19 12:15 | PCM.HP.BLA ---
History and Physical Date of Admission: 03/19/24 Reason for Consultation: Anemia HPI Narrative: IMAN HICKS, is a 74 F with a past medical history of essential hypertension, hypothyroidism; with history of goiter, DM-2; of unknown control on Metformin, peripheral neuropathy; with chronically poor balance and increasingly frequent falls, history of tobacco abuse, history of HSV, history of TIA (2011), RA, history of recurrent UTI's, history of atrophic vaginitis, history of renal calculi; with subsequent stent and lithotripsy, depression, GERD and chronic back pain who presents to [facility] ER complaining of Left hip pain after fall. Ms. Hicks reports her symptoms began approximately one hour prior to arrival when she lost her balance and fell while she was walking on a sidewalk while trying to work in her yard causing her to land on her Left hip and side with subsequent severe pain and inability to ambulate, stand up or even bear weight on her Left leg. She denies LOC or injuring her head with the fall but she does admit falling off the narrow steps of the porch of her home ~4 weeks ago. She also denies related fever, chills, nausea, vomiting, diarrhea, constipation, chest pain, SOB, recent medication changes, recent illness, history of CAD or chest pain with activity. In the ER her X-rays were positive for Left hip fracture. She underwent fracture repair and was sent to TCU prior to her going home. Since being in the TCU her hemoglobin dropped down to 7.4 from 13. She was given transfusion of packed red blood cells and her stool was checked for blood and there were positive. She is on heparin for DVT prophylaxis. I was consulted due to suspected GI bleed. [facility] Medical History (Updated 03/11/24 @ 22:[address] Moise Glez MD) Alcohol use Anxiety and depression Arthritis Back pain due to injury Back problem Carpal tunnel syndrome Cataracts, bilateral Easy bruising GERD (gastroesophageal reflux disease) Goiter H/O: pneumonia History of stress test HSV (herpes simplex virus) infection Hypertension Hypothyroidism Kidney stones Left renal stone Leg cramps Neuropathy Recurrent UTI Rheumatoid arthritis Seasonal allergies Smoker Stress incontinence Stroke/cerebrovascular accident Syncope TIA (transient ischemic attack) Type 2 diabetes mellitus Vision problems Home Medications bupropion HCl 300 mg 24 hr tablet, extended release (Wellbutrin XL) 300 mg PO QAM depression 11/20/18 [History Last Taken 07/21/20 05:15] multivitamin with minerals-folic acid 0.4 mg tablet (Adult One Daily Multivitamin) 1 tab PO DAILY vitamin 11/20/18 [History Last Taken Unknown] fluticasone propionate 50 mcg/actuation nasal spray,suspension 1 spray NASAL DAILY allergies 06/22/20 [History Last Taken Unknown] loratadine 10 mg capsule 10 mg PO DAILY allergie 06/22/20 [History Last Taken Unknown] metformin 500 mg tablet 1,000 mg PO DAILY diabetes 08/04/20 [History Last Taken Unknown] omeprazole 40 mg capsule,delayed release 40 mg PO QHS acid reflux 10/13/20 [History Last Taken 02/04/22] levothyroxine 175 mcg tablet (Synthroid) 150 mcg PO DAILY hypothyroid 01/30/22 [History Last Taken 07/04/22] metformin 500 mg tablet 500 mg PO QHS diabetes 06/28/22 [History Last Taken Unknown] estradiol 0.01% (0.1 mg/gram) vaginal cream See Rx Instructions vaginal .COMPLEX vaginitis #42.5 grams 07/24/23 [Rx Last Taken Unknown] mometasone 0.1 % topical ointment 1 applic topical .COMPLEX ? #15 grams 09/03/23 [Rx Last Taken Unknown] lisinopril 5 mg tablet 5 mg PO DAILY BP 03/07/24 [History Last Taken Unknown] valacyclovir 500 mg tablet 500 mg PO BID antibiotic 03/07/24 [History Last Taken Unknown] acetaminophen 500 mg tablet 1,000 mg (2 x 500 mg) PO Q8 pain #0 tabs 03/11/24 [Rx Last Taken Unknown] calcium carbonate 500 mg (2.5 x 200 mg calcium (500 mg)) PO TIDCM acid reflux/indigestion #0 tabs 03/11/24 [Rx Last Taken Unknown] cyclobenzaprine 5 mg tablet 5 mg PO TID PRN PRN Muscle Spasm #0 tabs 03/11/24 [Rx Last Taken Unknown] enoxaparin 40 mg/0.4 mL subcutaneous syringe 40 mg (0.4 mL) subcut DAILY@0600 blood thinner/post surgery 28 days #4 mL 03/11/24 [Rx Last Taken Unknown] ergocalciferol (vitamin D2) 1,250 mcg (50,000 unit) capsule (Vitamin D2) 1,250 mcg PO Q7D supplement #7 caps 03/11/24 [Rx Last Taken Unknown] oxycodone 5 mg tablet 10 mg (2 x 5 mg) PO Q6H PRN pain (scale score 6-10) 3 days #12 tabs 03/11/24 [Rx Last Taken Unknown] sennosides 8.6 mg-docusate sodium 50 mg tablet (Stool Softener-Stimulant Laxative) 2 tab PO BID PRN PRN Constipation #0 tabs 03/11/24 [Rx Last Taken Unknown] Allergy/AdvReac Type Severity Reaction Status Date / Time No Known Allergies Allergy Verified 03/08/24 12:38 Family History Mother CancerFather Diabetes Heart diseaseSister Diabetes Surgical History History of carpal tunnel surgery History of colonoscopy History of foot surgery History of lithotripsy Social History (Updated 03/11/24 @ 22:[address] Moise Glez MD) household members: none housing: house number of children: 0 current occupational status: retired Smoking Status: Current every day smoker tobacco type: cigarettes alcohol intake: current alcohol intake frequency: holidays/special occasions only substance use type: does not use seatbelt use: always do you feel safe at home: Yes additional social history: ROS Constitutional Constitutional: Denies chills, fever(s) or weight gain ENT HEENT: Denies headache(s), nasal congestion or nasal discharge Cardiovascular Cardiovascular: Denies chest pain or palpitations Respiratory/Chest Respiratory/Chest: Denies cough, excessive phlegm production or shortness of breath with exertion Gastrointestinal Gastrointestinal: Denies abdominal pain, nausea or vomiting Genitourinary Genitourinary: Denies dysuria Musculoskeletal Musculoskeletal: Reports other Details: Left hip pain. ; Denies joint pain or joint swelling Integumentary Integumentary: Denies rash or wounds Neurologic Neurologic: Denies focal weakness, numbness or tingling Psychiatric Psychiatric: Denies anxiety, auditory hallucinations, depression, homicidal ideation or suicidal ideation Physical Exam Const alert General Appearance: cooperative HEENT normocephalic Eyes PERRL and EOMs intact bilaterally Neck supple, no JVD and no carotid bruits Resp normal respiratory effort, normal air movement and clear to auscultation bilaterally Cardio regular rate and regular rhythm GI normal to inspection, nondistended, normoactive bowel sounds, non-tender and non-distended Extremity normal capillary refill General Extremity: Negative for edema Skin no rashes or lesions noted General Skin Exam: no breakdown Psych affect normal Appearance: appropriate Lab / Micro Data 03/17/24 05:15 03/12/24 04:57 Labs: Laboratory Results - last 24 hr 03/18/24 05:55: POC Glucose 129 H Assessment & Plan Assessment/Plan (1) Debility: (2) Fall: QUALIFIERS: Encounter type: initial encounter Qualified Code(s): W19.XXXA - Unspecified fall, initial encounter (3) Closed fracture of left hip: QUALIFIERS: Encounter type: initial encounter Qualified Code(s): S72.002A - Fracture of unspecified part of neck of left femur, initial encounter for closed fracture (4) Diabetes mellitus type 2 in nonobese: (5) Depression: (6) Allergic rhinitis: (7) GERD (gastroesophageal reflux disease): (8) Hypothyroidism: (9) Atrophic vaginitis: (10) Essential (primary) hypertension: (11) HSV (herpes simplex virus) infection: PLAN: Plan 74 year old female with below past medical history hospitalized for left hip fracture, underwent left femur IM nail fixation 03/08/[address] Lang, admitted to TCU with debility, here for rehabilitation, strengthening, prior to discharge home alone. She currently has presumed blood loss anemia possibly secondary to GI blood loss. Recommend upper endoscopy to evaluate her upper GI tract due to her recent surgery. She was explained alternatives, risk, benefits including not withstanding bleeding, infection, sepsis, perforation, need for emergent surgery and . She will have an ASA of 3.
--- NOTE | 2024-03-19 12:45 | EGD_PTH ---
PATIENT: IMAN HICKS LOC: EN U#:[id number] AGE/SX: 74/F ROOM: RE03/19/[address]: Dr. Jared Wells DO : 1950 BED: DIS: 03/19/2024 SPEC #: [id number] RECD: 03/19/24 14:05 STATUS: [place]I [place] #: [id number] YOSHI: 03/19/24 12:[address]: Jared Wells DEPT: SURGICAL PATHOLOGY RECD BY: Sonya Rascon ENTERED: 03/19/24 14:23 SP TYPE: EGD BIOPSY OT DR: Dr. Praveen Lutz DO Tissues: Pyloric sphincter Procedures: Special Stain Group II Surgery Specimen Level IV Alcian Blue/PAS (control) HEADER OPERATION: EGD with biopsy, bipolar hemostasis PRE-OP DIAGNOSIS: Anemia, GERD TISSUE SUBMITTED: Pyloric sphincter biopsy MICROSCOPIC DIAGNOSIS Pyloric sphincter, biopsy: Gastric mucosa with chronic gastritis. Focal goblet cell metaplasia. No evidence of dysplasia. See comment. SY/ 03/23/2024 COMMENT Immunohistochemistry ([id number]) supports the above diagnosis. Alcian blue/PAS stain with matched control supports the above diagnosis. MICROSCOPIC DESCRIPTION Slides are reviewed. GROSS DESCRIPTION Received in fixative is one container labeled with the patient's name and designated Pyloric sphincter biopsy. The specimen consists of one irregular fragment of light constantino soft tissue that measures 0.4 x 0.4 x 0.1 cm. The specimen is totally submitted in one cassette. STEWART/ 03/19/24 TC:3 CPT:44907,08472
--- NOTE | 2024-03-19 12:45 | IMM_PTH ---
PATIENT: IMAN HICKS LOC: EN U#:[id number] AGE/SX: 74/F ROOM: RE03/19/[address]: Dr. Jared Wells DO : 1950 BED: DIS: 03/19/2024 SPEC #: [id number] RECD: 03/19/24 14:36 STATUS: LORI REQ #: [id number] YOSHI: 03/19/24 12:[address]: Jared Wells DEPT: IMMUNOHISTOCHEMISTRY RECD BY: Andi Sharif ENTERED: 03/19/24 14:37 SP TYPE: IMMUNO OTHR DR: Dr. Praveen Lutz, Tissues: Pyloric sphincter Procedures: H Pylori (initial) PHYSICIAN & INSTITUTION [place] [address] SPECIMEN INFORMATION: Tissue Source: Pyloric sphincter Clinical Info: Anemia, GERD Specimen Number: [id number] CPT code: 60768 METHODOLOGY: Deparaffinized sections of prefer/formalin-fixed tissue or PAP/DQ stained slides are incubated with monoclonal/polyclonal antibodies/oligonucleotide probes. Localization is made via biotin free immunoperoxidase method. Appropriate controls are performed and reacted as expected. Results on target cell population are indicated in the following table: RESULTS: ANTIBODY / CLONE RESULT H Pylori (polyclonal) negative These tests were developed and their performance characteristics determined by [facility]. They may not have been cleared or approved by the U.S. Food and Drug Administration. The FDA has determined that such clearance or approval is not necessary. The above immunohistochemical/dualISH markers are ordered and reviewed by the Pathologist. INTERPRETATION: Pyloric sphincter, biopsy: Negative for Helicobacter pylori organisms. SY/ 03/23/2024
--- NOTE | 2024-03-19 13:00 | OP.EGD_ITS ---
Patient Name: Saloni Moffett Procedure Date: 03/19/2024 12:39 PM Date of : 1950 Age: 74 Procedure: Upper GI endoscopy Indications: Iron deficiency anemia Providers: Jared Wells DO Medicines: Monitored Anesthesia Care Patient Profile: This is a 74 year old female. Refer to note in patient chart for documentation of history and physical. Patient has symptoms of acute epigastric abdominal pain. Complications: No immediate complications. Procedure: Pre-Anesthesia Assessment: - Prior to the procedure, a History and Physical was performed, and patient medications and allergies were reviewed. The patient is competent. The risks and benefits of the procedure and the sedation options and risks were discussed with the patient. All questions were answered and informed consent was obtained. Patient identification and proposed procedure were verified by the physician in the pre-procedure area. Mental Status Examination: alert and oriented. Airway Examination: normal oropharyngeal airway and neck mobility. Respiratory Examination: clear to auscultation. CV Examination: normal. Prophylactic Antibiotics: The patient does not require prophylactic antibiotics. Prior Anticoagulants: The patient has taken no anticoagulant or antiplatelet agents. ASA Grade Assessment: II - A patient with mild systemic disease. After reviewing the risks and benefits, the patient was deemed in satisfactory condition to undergo the procedure. The anesthesia plan was to use monitored anesthesia care (MAC). Immediately prior to administration of medications, the patient was re-assessed for adequacy to receive sedatives. The heart rate, respiratory rate, oxygen saturations, blood pressure, adequacy of pulmonary ventilation, and response to care were monitored throughout the procedure. The physical status of the patient was re-assessed after the procedure. After obtaining informed consent, the endoscope was passed under direct vision. Throughout the procedure, the patient's blood pressure, pulse, and oxygen saturations were monitored continuously. The gastroscope was introduced through the mouth, and advanced to the second part of duodenum. The upper GI endoscopy was accomplished without difficulty. The patient tolerated the procedure well. Scope In: 12:47:51 PM Scope Out: 12:52:19 PM Total Procedure Duration Time 0 hours 4 minutes 28 seconds Findings: The examined esophagus was normal. Red blood was found in the gastric fundus. Two oozing linear gastric ulcers with pigmented material were found in the gastric fundus. The largest lesion was 6 mm in largest dimension. Coagulation for hemostasis using heater probe was successful. Estimated blood loss was minimal. Patchy moderate inflammation characterized by friability and granularity was found at the pylorus. Biopsies were taken with a cold forceps for histology. Verification of patient identification for the specimen was done. Estimated blood loss was minimal. Biopsies were taken with a cold forceps for Helicobacter pylori testing. Verification of patient identification for the specimen was done. Estimated blood loss was minimal. The second portion of the duodenum was normal. Impression: - Normal esophagus. - Red blood in the gastric fundus. - Oozing gastric ulcers with pigmented material. Treated with a heater probe. - Acute gastritis. Biopsied. - Normal second portion of the duodenum. Recommendation: - Return patient to hospital waite for ongoing care. - Resume previous diet. - Use Protonix (pantoprazole) 40 mg PO BID. - Continue present medications. Procedure Code(s): --- Professional --- 04012, 59, Esophagogastroduodenoscopy, flexible, transoral; with control of bleeding, any method 14546, 51, Esophagogastroduodenoscopy, flexible, transoral; with biopsy, single or multiple CPT copyright 2021 [employer]. All rights reserved. The codes documented in this report are preliminary and upon machine plug shaper review may be revised to meet current compliance requirements. Jared Wells DO 03/19/2024 1:00:22 PM This report has been signed electronically. Number of Addenda: 0 Note Initiated On: 03/19/2024 12:39 PM
--- NOTE | 2024-03-19 13:01 | OP.CCLET_ITS ---
03/19/2024 Praveen Lutz [address] [place] [address] Re : Upper GI endoscopy procedure for Saloni Costarp Dear Dr. Lutz This procedure was performed on Tuesday, March 19, 2024. My impressions and recommendations are as follows: Impressions : - Normal esophagus. - Red blood in the gastric fundus. - Oozing gastric ulcers with pigmented material. Treated with a heater probe. - Acute gastritis. Biopsied. - Normal second portion of the duodenum. Recommendations : - Return patient to hospital waite for ongoing care. - Resume previous diet. - Use Protonix (pantoprazole) 40 mg PO BID. - Continue present medications. My findings are described in the full procedure note, which is enclosed. If I can be of further assistance, please feel free to contact me at . Sincerely, Jared Wells, 03/19/2024 1:00:22 PM This report has been signed electronically.
== END 2024-03-19 14:00 | disposition home or self-care (01) ==
LOC: EN 11:15 → AC 11:16
PROVIDERS: PCP Family Medicine; Referring Provider Family Medicine; Visit Provider Internal Medicine Gastroenterology
PROC: 0DJ08ZZ Inspection of Upper Intestinal Tract, Via Natural or Artificial Opening Endoscopic (ICD-10-PCS; CPT 43235; principal; 2024-03-19 12:40)
DX: K25.9 Gastric ulcer, unspecified as acute or chronic, without hemorrhage or perforation (principal); S72.002A Fracture of unspecified part of neck of left femur, initial encounter for closed fracture; E11.40 Type 2 diabetes mellitus with diabetic neuropathy, unspecified; R53.81 Other malaise; E03.9 Hypothyroidism, unspecified; J30.9 Allergic rhinitis, unspecified; K21.9 Gastro-esophageal reflux disease without esophagitis; I10 Essential (primary) hypertension; Z79.84 Long term (current) use of oral hypoglycemic drugs; Z86.73 Personal history of transient ischemic attack (TIA), and cerebral infarction without residual deficits; F41.8 Other specified anxiety disorders; Z79.899 Other long term (current) drug therapy; F17.210 Nicotine dependence, cigarettes, uncomplicated; W18.39XA Other fall on same level, initial encounter; Y93.01 Activity, walking, marching and hiking; Y92.480 Sidewalk as the place of occurrence of the external cause; N76.0 Acute vaginitis; B00.9 Herpesviral infection, unspecified
CPT/HCPCS: 43255; 43239; 82962; 88305; 88313; 88342; J7120

== ENCOUNTER → 2024-03-30 | Outpatient (REF) | payer MEDICARE, SELFPAY ==
[2024-03-30 08:13] LABS: Absolute Lymphocyte Count 1.16 X10^3/uL (0.83-4.51); Absolute Neutrophil Count 5.5 X10^3/uL (2.0-7.7); Basophil# 0.04 X10^3/uL; Basophil% 0.5 % (0-1); Eosinophil# 0.32 X10^3/uL; Eosinophils% 4.2 % (0-5); Hematocrit 36.8 % (37-47); Hemoglobin 11.8 g/dL (12.0-15.0); Lymphocyte # 1.16 X10^3/ul (0.83-4.51); Lymphocyte % 15.3 % (19-41); Mean Corp Hgb Conc 32.1 g/dL (32-36); Mean Corpuscular Hgb 32.8 pg (27.0-32.0); Mean Corpuscular Volume 102.2 fL (81-99); Mean Platelet Vol. 8.9 fl (6.2-12.0); Monocyte# 0.54 X10^3/uL; Monocyte% 7.1 % (0-10); NRBC Flagged by Analyzer 0 % (0-5); Neutrophil # 5.49 X10^3/uL (2.7-7.7); Neutrophil % 72.4 % (47-70); Platelet Count 336 K/mm3 (150-450); RBC Distribution Width CV 16.6 % (11.6-14.6); White Blood Count 7.6 K/mm3 (4.4-11.0)
[2024-03-30 08:47] LABS: ALB/GLOB Ratio 0.9 RATIO (0.9-2.4); AST(SGOT) 27 U/L (15-37); Alanine Aminotransfer ALT/SGPT 22 U/L (13-56); Albumin, Serum 3.4 g/dL (3.2-5.0); Alkaline Phosphatase 229 U/L (45-117); Anion Gap 7 (5-15); BUN 27 mg/dL (7-18); BUN/Creat Ratio 25.5 RATIO (10-20); Bilirubin, Direct 0.14 mg/dL (0.00-0.30); Calcium,Total 9.3 mg/dL (8.5-10.1); Chloride 105 mmol/L (98-107); Creatinine, Serum 1.06 mg/dL (0.55-1.02); EST Glomerular Filtration Rate 54 mL/min (>60); Est Glom Filt Rate - Afr Amer 65 mL/min (>60); Globulin 3.8 g/dL (2.2-4.2); Glucose 140 mg/dL (74-106); Protein, Total 7.2 g/dL (6.4-8.2); Sodium Level 137 mmol/L (136-145)
[2024-03-30 13:38] LABS: Hemoglobin A1c 6.1 % (3.8-5.6)
== END ==
LOC: OLS.WHLEAS 05:00
PROVIDERS: PCP Family Medicine; Visit Provider Internal Medicine
DX: B00.9 Herpesviral infection, unspecified (principal); E03.9 Hypothyroidism, unspecified; E11.21 Type 2 diabetes mellitus with diabetic nephropathy; S72.002A Fracture of unspecified part of neck of left femur, initial encounter for closed fracture
CPT/HCPCS: 36415; 80053; 82248; 83036; 84443; 85025

== ENCOUNTER → 2024-04-05 | Outpatient (REF) | payer MEDICARE, OTHER, SELFPAY ==
[2024-04-05 08:34] LABS: Absolute Lymphocyte Count 1.45 X10^3/uL (0.83-4.51); Basophil# 0.04 X10^3/uL; Basophil% 0.6 % (0-1); Eosinophil# 0.24 X10^3/uL; Eosinophils% 3.8 % (0-5); Hematocrit 38.4 % (37-47); Hemoglobin 12.1 g/dL (12.0-15.0); Lymphocyte # 1.45 X10^3/ul (0.83-4.51); Lymphocyte % 23.2 % (19-41); Mean Corp Hgb Conc 31.5 g/dL (32-36); Mean Corpuscular Volume 104.6 fL (81-99); Mean Platelet Vol. 9.5 fl (6.2-12.0); Monocyte# 0.47 X10^3/uL; Monocyte% 7.5 % (0-10); NRBC Flagged by Analyzer 0 % (0-5); Neutrophil # 4.01 X10^3/uL (2.7-7.7); Neutrophil % 64.3 % (47-70); POSITIVE MORPHOLOGY YES; Platelet Count 235 K/mm3 (150-450); RBC Distribution Width CV 17.2 % (11.6-14.6); RBC Distribution Width SD 66.8 fl (35.1-43.9); Red Blood Count 3.67 M/mm3 (4.2-5.4); White Blood Count 6.3 K/mm3 (4.4-11.0)
[2024-04-05 08:37] LABS: Differential Indicated SCAN CRITERIA MET
[2024-04-05 09:00] LABS: Anion Gap 4 (5-15); BUN 20 mg/dL (7-18); BUN/Creat Ratio 22.8 RATIO (10-20); Calcium,Total 9.3 mg/dL (8.5-10.1); Chloride 108 mmol/L (98-107); Creatinine, Serum 0.88 mg/dL (0.55-1.02); EST Glomerular Filtration Rate 67 mL/min (>60); Est Glom Filt Rate - Afr Amer 81 mL/min (>60); Glucose 99 mg/dL (74-106); Potassium 3.8 mmol/L (3.5-5.1); Sodium Level 140 mmol/L (136-145)
[2024-04-05 11:00] LABS: Anisocytosis 1+
== END ==
LOC: OLS.WHLEAS 04:00
PROVIDERS: PCP Family Medicine; Referring Provider Internal Medicine; Visit Provider Internal Medicine
DX: D64.9 Anemia, unspecified (principal); E03.9 Hypothyroidism, unspecified; I10 Essential (primary) hypertension
CPT/HCPCS: 36415; 80048; 84443; 85025

== ENCOUNTER → 2024-04-12 | Outpatient (REF) | payer MEDICARE, SELFPAY ==
[2024-04-12 09:17] LABS: Absolute Lymphocyte Count 1.65 X10^3/uL (0.83-4.51); Absolute Neutrophil Count 4.8 X10^3/uL (2.0-7.7); Basophil# 0.05 X10^3/uL; Basophil% 0.7 % (0-1); Eosinophil# 0.25 X10^3/uL; Eosinophils% 3.4 % (0-5); Hematocrit 36.4 % (37-47); Hemoglobin 11.5 g/dL (12.0-15.0); Lymphocyte # 1.65 X10^3/ul (0.83-4.51); Lymphocyte % 22.4 % (19-41); Mean Corp Hgb Conc 31.6 g/dL (32-36); Mean Corpuscular Volume 104.3 fL (81-99); Mean Platelet Vol. 9.7 fl (6.2-12.0); Monocyte# 0.53 X10^3/uL; Monocyte% 7.2 % (0-10); NRBC Flagged by Analyzer 0 % (0-5); Neutrophil # 4.81 X10^3/uL (2.7-7.7); Neutrophil % 65.5 % (47-70); POSITIVE MORPHOLOGY YES; Platelet Count 235 K/mm3 (150-450); RBC Distribution Width CV 17.4 % (11.6-14.6); RBC Distribution Width SD 67.2 fl (35.1-43.9); Red Blood Count 3.49 M/mm3 (4.2-5.4); White Blood Count 7.4 K/mm3 (4.4-11.0)
[2024-04-12 09:23] LABS: Differential Indicated SCAN CRITERIA MET
[2024-04-12 09:35] LABS: Anion Gap 5 (5-15); BUN 25 mg/dL (7-18); BUN/Creat Ratio 30.1 RATIO (10-20); Calcium,Total 9.2 mg/dL (8.5-10.1); Chloride 108 mmol/L (98-107); Creatinine, Serum 0.83 mg/dL (0.55-1.02); EST Glomerular Filtration Rate 71 mL/min (>60); Est Glom Filt Rate - Afr Amer 86 mL/min (>60); Glucose 121 mg/dL (74-106); Potassium 3.8 mmol/L (3.5-5.1); Sodium Level 140 mmol/L (136-145)
[2024-04-12 09:38] LABS: Anisocytosis RARE
== END ==
LOC: OLS.WHLEAS 05:00
PROVIDERS: PCP Family Medicine; Visit Provider Internal Medicine
DX: D64.9 Anemia, unspecified (principal); E11.21 Type 2 diabetes mellitus with diabetic nephropathy
CPT/HCPCS: 36415; 80048; 85025

== ENCOUNTER → 2024-04-20 | Outpatient (REF) | payer MEDICARE, SELFPAY ==
[2024-04-20 08:22] LABS: Absolute Lymphocyte Count 1.39 X10^3/uL (0.83-4.51); Absolute Neutrophil Count 4.8 X10^3/uL (2.0-7.7); Basophil# 0.05 X10^3/uL; Basophil% 0.7 % (0-1); Eosinophil# 0.26 X10^3/uL; Eosinophils% 3.6 % (0-5); Hematocrit 37.1 % (37-47); Hemoglobin 12.1 g/dL (12.0-15.0); Lymphocyte # 1.39 X10^3/ul (0.83-4.51); Lymphocyte % 19.4 % (19-41); Mean Corp Hgb Conc 32.6 g/dL (32-36); Mean Corpuscular Hgb 33.4 pg (27.0-32.0); Mean Corpuscular Volume 102.5 fL (81-99); Mean Platelet Vol. 9.5 fl (6.2-12.0); Monocyte# 0.61 X10^3/uL; Monocyte% 8.5 % (0-10); NRBC Flagged by Analyzer 0 % (0-5); Neutrophil # 4.84 X10^3/uL (2.7-7.7); Neutrophil % 67.4 % (47-70); Platelet Count 255 K/mm3 (150-450); RBC Distribution Width SD 64.8 fl (35.1-43.9); Red Blood Count 3.62 M/mm3 (4.2-5.4); White Blood Count 7.2 K/mm3 (4.4-11.0)
[2024-04-20 08:51] LABS: Anion Gap 4 (5-15); BUN 27 mg/dL (7-18); BUN/Creat Ratio 28.4 RATIO (10-20); Calcium,Total 8.9 mg/dL (8.5-10.1); Chloride 110 mmol/L (98-107); Creatinine, Serum 0.95 mg/dL (0.55-1.02); EST Glomerular Filtration Rate 61 mL/min (>60); Est Glom Filt Rate - Afr Amer 74 mL/min (>60); Glucose 135 mg/dL (74-106); Potassium 4.3 mmol/L (3.5-5.1); Sodium Level 141 mmol/L (136-145)
== END ==
LOC: OLS.WHLEAS 05:00
PROVIDERS: PCP Family Medicine; Visit Provider Internal Medicine
DX: D64.9 Anemia, unspecified (principal)
CPT/HCPCS: 36415; 80048; 85025

== ENCOUNTER → 2024-04-27 | Outpatient (REF) | payer MEDICARE, SELFPAY ==
[2024-04-27 08:28] LABS: Basophil# 0.03 X10^3/uL; Basophil% 0.5 % (0-1); Eosinophil# 0.24 X10^3/uL; Hematocrit 36.2 % (37-47); Hemoglobin 11.9 g/dL (12.0-15.0); Lymphocyte % 20.1 % (19-41); Mean Corp Hgb Conc 32.9 g/dL (32-36); Mean Corpuscular Hgb 34.6 pg (27.0-32.0); Mean Corpuscular Volume 105.2 fL (81-99); Mean Platelet Vol. 9.2 fl (6.2-12.0); Monocyte# 0.53 X10^3/uL; Monocyte% 8.9 % (0-10); NRBC Flagged by Analyzer 0 % (0-5); Neutrophil # 3.95 X10^3/uL (2.7-7.7); POSITIVE MORPHOLOGY YES; Platelet Count 207 K/mm3 (150-450); RBC Distribution Width CV 16.6 % (11.6-14.6); RBC Distribution Width SD 65.1 fl (35.1-43.9); Red Blood Count 3.44 M/mm3 (4.2-5.4)
[2024-04-27 08:29] LABS: Differential Indicated SCAN CRITERIA MET
[2024-04-27 08:44] LABS: Anion Gap 5 (5-15); BUN 25 mg/dL (7-18); BUN/Creat Ratio 26.2 RATIO (10-20); Calcium,Total 9.3 mg/dL (8.5-10.1); Chloride 108 mmol/L (98-107); Creatinine, Serum 0.96 mg/dL (0.55-1.02); EST Glomerular Filtration Rate 61 mL/min (>60); Est Glom Filt Rate - Afr Amer 73 mL/min (>60); Glucose 129 mg/dL (74-106); Sodium Level 140 mmol/L (136-145)
[2024-04-27 09:34] LABS: Anisocytosis 2+; Differential Comment SCANNED; Macrocytosis 2+
== END ==
LOC: OLS.WHLEAS 05:00
PROVIDERS: PCP Family Medicine; Visit Provider Internal Medicine
DX: D64.9 Anemia, unspecified (principal)
CPT/HCPCS: 36415; 80048; 85025

== ENCOUNTER → 2024-05-04 | Outpatient (REF) | payer MEDICARE, SELFPAY ==
[2024-05-04 09:37] LABS: Absolute Lymphocyte Count 1.25 X10^3/uL (0.83-4.51); Absolute Neutrophil Count 4.6 X10^3/uL (2.0-7.7); Basophil# 0.05 X10^3/uL; Basophil% 0.7 % (0-1); Eosinophil# 0.27 X10^3/uL; Hematocrit 40.5 % (37-47); Hemoglobin 13.2 g/dL (12.0-15.0); Lymphocyte # 1.25 X10^3/ul (0.83-4.51); Lymphocyte % 18.3 % (19-41); Mean Corp Hgb Conc 32.6 g/dL (32-36); Mean Corpuscular Hgb 34.2 pg (27.0-32.0); Mean Corpuscular Volume 104.9 fL (81-99); Mean Platelet Vol. 9.3 fl (6.2-12.0); Monocyte# 0.59 X10^3/uL; Monocyte% 8.6 % (0-10); NRBC Flagged by Analyzer 0 % (0-5); Neutrophil # 4.64 X10^3/uL (2.7-7.7); Platelet Count 226 K/mm3 (150-450); RBC Distribution Width CV 16.2 % (11.6-14.6); RBC Distribution Width SD 63.5 fl (35.1-43.9); Red Blood Count 3.86 M/mm3 (4.2-5.4); White Blood Count 6.8 K/mm3 (4.4-11.0)
[2024-05-04 10:04] LABS: Anion Gap 3 (5-15); BUN 28 mg/dL (7-18); BUN/Creat Ratio 28.4 RATIO (10-20); Calcium,Total 9.6 mg/dL (8.5-10.1); Chloride 108 mmol/L (98-107); Creatinine, Serum 0.99 mg/dL (0.55-1.02); EST Glomerular Filtration Rate 58 mL/min (>60); Est Glom Filt Rate - Afr Amer 71 mL/min (>60); Glucose 147 mg/dL (74-106); Potassium 4.3 mmol/L (3.5-5.1); Sodium Level 139 mmol/L (136-145)
== END ==
LOC: OLS.WHLEAS 05:00
PROVIDERS: PCP Family Medicine; Visit Provider Internal Medicine
DX: D64.9 Anemia, unspecified (principal)
CPT/HCPCS: 36415; 80048; 85025

== ENCOUNTER → 2024-06-08 | Outpatient (CLI) | payer MEDICARE, SELFPAY ==
--- NOTE | 2024-06-08 15:56 | RAD_ITS ---
STUDY: X-RAY - LEFT KNEE REASON FOR EXAM: Female, 74 years old. LEFT KNEE PAIN TECHNIQUE: 4 view(s) of the knee. COMPARISON: None. FINDINGS: Intramedullary jaden within the femur. Normal visualized proximal tibia and fibula. Normal proximal tibiofibular articulation. There is mild degenerative arthrosis of the medial femorotibial compartment. Normal lateral femorotibial compartment. Normal patellofemoral articulation. The soft tissue structures are unremarkable. RAD/Knee 4 or More Views IMPRESSION: Degenerative arthrosis. Electronically Signed: Guzman Ruiz MD at 16:21 EDT ,
== END | disposition home or self-care (01) ==
LOC: RAD 15:55
PROVIDERS: PCP Family Medicine; Referring Provider Anesthesiology; Visit Provider Anesthesiology
DX: M25.562 Pain in left knee (principal)
CPT/HCPCS: 73564

== ENCOUNTER 2024-07-16 13:37 | Day surgery (SDC) | payer MEDICARE, SELFPAY ==
[2024-07-16] VITALS (7 sets, daily range): BP systolic 120–135; BP diastolic 70–90; PULSE 77–81; RESP 14–20; TEMP 36.1–36.6; O2SAT 94–98; BMI 20.7
--- NOTE | 2024-07-16 13:50 | PRE.ANES_ITS ---
ASA Classification* ASA Classification ASA Classification: 2 Assessment & Plan Anesthesia* Anesthesia Assessment Anesthesia Assessment: Discussed sedation and/or anesthesia options, risks, benefits, and alternatives with patient/parents/legal guardian/POA. Questions invited. The patient/parents/legal guardian/POA seems to understand and agrees to proceed with anesthesia plan. Reviewed the physical assessment, medical history, allergy history and patient home medications list prior to surgery/procedure/anesthetic and documented any changes. Performed airway and anesthesia risk assessments. Anesthesia Type Anesthesia Type: MAC Anesthesia Focused Assessment* Airway Assessment Mouth opens: >3 cm Mallampati Score: II Focused Labs Anesthesia Preop lab: CBC WBC 6.8 K/mm3 (4.4-11.0) 05/04/24 07:50 RBC 3.86 M/mm3 (4.2-5.4) L 05/04/24 07:50 Hgb 13.2 g/dL (12.0-15.0) 05/04/24 07:50 Hct 40.5 % (37-47) 05/04/24 07:50 Plt Count 226 K/mm3 (150-450) 05/04/24 07:50 CHEMISTRY Potassium 4.3 mmol/L (3.5-5.1) 05/04/24 07:50 Sodium 139 mmol/L (136-145) 05/04/24 07:50 Magnesium 1.9 mg/dL (1.6-2.6) 03/08/24 06:10 Phosphorus 3.5 mg/dL (2.5-4.9) 03/08/24 06:10 BUN 28 mg/dL (7-18) H 05/04/24 07:50 Creatinine 0.99 mg/dL (0.55-1.02) 05/04/24 07:50 Glucose 147 mg/dL (74-106) H 05/04/24 07:50 POC Glucose 135 mg/dL (74-106) H 03/29/24 06:01 TSH 70.10 uIU/mL (0.358-3.74) H 04/05/24 05:40 COAG PT 12.5 SECONDS (11.7-14.9) 07/01/22 08:03 Pre-Assessment Diagnosis/Proposed Procedure Planned Operative Procedure(s): EGD Anesthesia History Anesthesia History - retail inventory control clerk: Anesthesia History - retail inventory control clerk Hx Hospitalization Yes: 03/07/24-FALL 07/14/24 10:13 Any Problems With Anesthesia No 07/14/24 10:13 Cholinesterase deficiency No 07/14/24 10:13 You/Your Family Experience No 07/14/24 10:13 fever (hyperthermia) with Relationship Recent Exposure to Contagious No 03/19/24 11:32 Disease Does patient have nerve No 07/14/24 10:13 stimulator Patient instructed to have device shut off --Does patient have Pacemaker or ICD? When Was Last Pacemaker Check QUESTION #4 FULL TEXT: You/Your Family Experience fever (hyperthermia) with Anesthesia Last Oral Intake Last Oral intake: Last Oral Intake NPO since Meds taken in AM with sips of water? Meds patient instructed to take am of surgery PONV PONV - retail inventory control clerk: PONV - retail inventory control clerk Female Yes 07/14/24 10:13 HX of Motion Sickness No 07/14/24 10:13 HX of N/V After Surgery No 07/14/24 10:13 Non-Smoker Yes 07/14/24 10:13 Duration of Surgery greater No 07/14/24 10:13 than 60 minutes Number of Risk Factors 2 07/14/24 10:13 PONV Score Moderate Risk 07/14/24 10:13 Height & Weight Height & Weight: Anesthesia: Height & Weight Height 5 ft 7 in 03/24/24 14:17 Respiratory Assessment Respiratory Assessment - retail inventory control clerk: Respiratory Tract Infection Hx - retail inventory control clerk Hx Respiratory Tract Infection No 07/14/24 10:13 STOP Sleep Apnea STOP Sleep Apnea - retail inventory control clerk: STOP Sleep Apnea - retail inventory control clerk Hx Hypertension No 07/14/24 10:13 Hx Sleep Apnea No 07/14/24 10:13 CPAP BIPAP Do you snore loudly (louder No 07/14/24 10:13 than talking or can be heard Do you often feel tired/ No 07/14/24 10:13 fatigued/ sleepy during daytime? Has anyone observed you stop No 07/14/24 10:13 breathing during sleep? STOP Results Negative 07/14/24 10:13 QUESTION #5 FULL TEXT : Do you snore loudly (louder than talking or can be heard through closed doors)? Tobacco Use History Tobacco Use History - retail inventory control clerk: Tobacco Use History - retail inventory control clerk Tobacco Use Smoking Status Former smoker 07/14/24 10:13 Hx Tobacco Use Yes: vapes 07/14/24 10:13 Years Smoking Packs Smoked per Day Smoking Cessation Date was Yes - quit smoking within 15 07/14/24 10:13 within the last 15 years years Hx Smoking Cessation Date Hx Smoking Cessation No 07/14/24 10:13 Counseling Hematologic Medial History Hematologic Hx - retail inventory control clerk: Hematologic Medical Hx - cutter head sharpener Hx of Blood Transfusion Yes 07/14/24 10:13 Hx of Transfusion in last 3 No 07/14/24 10:13 Months Date of Last Transfusion (if within last 3 months) Ever experience any problems No 07/14/24 10:13 with transfusion(s)? Specify any problems Hx of Preganancy in last 3 No 07/14/24 10:13 Months Nurse Filling Out Transfusion VCHRISTIN 07/14/24 10:13 & Questions: Date: 07/14/24 07/14/24 10:13 Time: 10:14 07/14/24 10:13 Patient unable to answer at this time (ie. confused, unrespo /Reproduction History /Reproductive History - retail inventory control clerk: /Reproductive Hx- retail inventory control clerk Hx Now No 07/14/24 10:13 Gestational Age (in weeks): EDC: Hx Hx Para Hx Section SAB No 07/14/24 10:13 Active Medications Active Medications: Current Medications Generic Name Dose Route Start Last Admin Trade Name Freq PRN Reason Stop Dose Admin Lactated Ringer's 1,000 mls @ 15 mls/hr 07/16/24 13:45 IV .Q48H JOLYNN PFSH Medical History (Updated 07/14/24 @ 10:17 by Brooklynn Wang) Hx of fracture of left hip Wears glasses Post-menopausal Anxiety Thyroid disease Diabetes Gastric reflux Former smoker Shortness of breath on exertion Chronic cough History of pain when walking History of edema Hx of fracture of femur Peripheral neuropathy Back pain due to injury Syncope History of stress test Kidney stones Stroke/cerebrovascular accident Diabetes Primary localized osteoarthritis of hips, bilateral Spinal stenosis of lumbar region at multiple levels Spinal stenosis in cervical region DDD (degenerative disc disease), lumbar Low back pain Lichen sclerosus Atrophic vaginitis HSV (herpes simplex virus) infection Stress incontinence Rheumatoid arthritis Easy bruising Leg cramps Left renal stone Alcohol use Smoker Hypertension Goiter 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 Diabetes 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 TIA (transient ischemic attack) Vision problems Hypothyroidism GERD (gastroesophageal reflux disease) H/O: pneumonia Neuropathy Goiter Carpal tunnel syndrome Cataracts, bilateral Recurrent UTI Back problem Arthritis Anxiety and depression Seasonal allergies Type 2 diabetes mellitus Home Medications ?Medication ?Instructions ?Recorded ?Last Taken ?Type bupropion HCl 300 mg 24 hr tablet, 300 mg PO QAM depression 11/20/18 07/21/20 05:15 History extended release (Wellbutrin XL) multivitamin with minerals-folic 1 tab PO DAILY vitamin 11/20/18 Unknown History acid 0.4 mg tablet (Adult One Daily Multivitamin) fluticasone propionate 50 1 spray NASAL DAILY PRN allergies 06/22/20 Unknown History mcg/actuation nasal spray,suspension metformin 500 mg tablet 1,000 mg PO DAILY diabetes 08/04/20 Unknown History levothyroxine 175 mcg tablet 150 mcg PO DAILY hypothyroid 01/30/22 03/19/24 History (Synthroid) metformin 500 mg tablet 500 mg PO QHS diabetes 06/28/22 Unknown History valacyclovir 500 mg tablet 500 mg PO BID antibiotic 03/07/24 03/19/24 History acetaminophen 500 mg tablet 1,000 mg (2 x 500 mg) PO Q8 pain 03/11/24 Unknown Rx #0 tabs sennosides 8.6 mg-docusate sodium 2 tab PO BID #0 tabs 03/26/24 Unknown Rx 50 mg tablet (Stool Softener-Stimulant Laxative) Caffeine [No Doz] 300 mg PO DINNER PRN FATIQUE 07/14/24 Unknown History Caffeine [No Doz] 300 mg PO LUNCH PRN FATIQUE 07/14/24 Unknown History gabapentin 100 mg capsule 200 mg PO TIDCM 07/14/24 Unknown History omeprazole 40 mg capsule,delayed 40 mg PO DAILY 07/14/24 Unknown History release Allergy/AdvReac Type Severity Reaction Status Date / Time No Known Allergies Allergy Verified 07/14/24 09:53 Family History Mother Cancer Father Diabetes Heart disease Sister Diabetes Surgical History (Updated 07/14/24 @ 10:13 by Brooklynn Wang) Hx of esophagogastroduodenoscopy Hx of cystoscopy History of colonoscopy History of foot surgery History of lithotripsy History of carpal tunnel surgery Social History (Updated 03/11/24 @ 22:[address] Moise Glez MD) household members: none housing: house number of children: 0 current occupational status: retired Smoking Status: Former smoker alcohol intake: current alcohol intake frequency: holidays/special occasions only substance use type: does not use seatbelt use: always do you feel safe at home: Yes additional social history: Review of Systems (Anesthesia) ROS Narrative System reviewed and no additional complaints, except as documented.
--- NOTE | 2024-07-16 14:03 | PCM.HP.BLA ---
History and Physical Date of Admission: 07/16/24 IMAN HICKS, is a 74 F who presents to the office today for hospital f/u. Patient had a mechanical fall in january which lead to a hip fracture. She was in the hospital for a period of time and was found to have a declining hemoglobin. She underwent an EGD with Dr. Wells which showed gastric ulcers. EGD: 03.19.24 - Normal esophagus. - Red blood in the gastric fundus. - Oozing gastric ulcers with pigmented material. Treated with a heater probe. - Acute gastritis. Biopsied. - Normal second portion of the duodenum OV 8. Patient has been doing well from a GI stand point. She has noticed that since her EGD she has had a slight cough and a raspy voice. She has not been taking her pantoprazole consistently. She also discontinued usage of iron supplement. She has occasional abdominal pain and constipation. She takes a laxative on occasion but is not sure what its called. She denies melena, hematochezia, heartburn, fevers or weight loss. ROS Const Constitutional: Positive for fatigue, frequent falls and weakness; No fever(s) or weight change ENT ENT: Positive for difficulty swallowing Cardio Cardiology: Positive for leg pain with exertion Gastro GI: Positive for constipation, heartburn and difficulty swallowing; No abdominal pain, belching, bloating, change in bowel habits, change in stool character, coffee ground emesis, cramping, diarrhea, feeling full early, excessive flatus, incontinent of stools, Vomiting blood/hematemesis, Blood in stool, loose stools, Black,tarry stools, nausea/dyspepsia, pain with swallowing, vomiting or other Musc Musculoskeletal: Positive for abnormal gait, joint pain, back pain, joint swelling, muscle weakness, numbness, stiffness, tingling, Arthritis, leg pain at night and leg pain with exertion Skin Skin: No yellowing of the eye or itchy eyes Neuro Neurology: Positive for abnormal gait, weakness, frequent falls, numbness and tingling Psych Psychiatric: Positive for anxiety, Positive for depression and Positive for Temper Tantrums Endo Endocrine: Positive for fatigue; No weight change Aller/Imm Allergy/Immunologic: No itchy eyes Garcia/Lymp Hematologic/Lymphatic: No easy bleeding or easy bruising Exam Const General: cooperative and comfortable Nutritional Appearance: average body habitus and well nourished [facility] Head: normal to inspection Ears: hearing grossly normal bilaterally Nose: external nose normal Face and sinus: normal facial exam Eyes General: appearance normal, both eyes and all related structures Neck Neck: normal visual inspection Chest Chest palpation & inspection: normal inspection of the chest Resp Effort & Inspection: normal respiratory effort Cardio Palpation: normal PMI GI Inspection: normal to inspection Auscultation: normal bowel sounds Palpation: no hepatosplenomegaly Skin General: no rashes or lesions noted Neuro General: patient alert Extrem General: normal to inspection Psych Affect: normal affect Assessment and Plan Assessment and Plan (1) GI bleed: Status: Acute Plan: Patient is here for hospital f/u for GI bleed. -She will be scheduled for repeat EGD to confirm ulcers have healed as well as assess her acute change in her voice -Encouraged her to take pantoprazole every day -Ordered CBC and iron -She is interested in checking her vitamin D level so I will order this as well I have examined the patient and the H&P has been reviewed. There are no clinical changes since date of exam.
[2024-07-16] MEDS: Lactated Ringers 1,000 ML 15 ML IV (14:18)
--- NOTE | 2024-07-16 15:00 | EGD_PTH ---
PATIENT: IMAN HICKS LOC: [facility] U#:[id number] AGE/SX: 74/F ROOM: RE07/16/[address]: Dr. Jared Wells DO : 1950 BED: DIS: 07/16/2024 SPEC #: [id number] RECD: 07/19/24 07:13 STATUS: LORI REDDY #: [id number] YOSHI: 07/16/24 15:[address]: Jared Wells DEPT: SURGICAL PATHOLOGY RECD BY: Essie Irby ENTERED: 07/19/24 09:23 SP TYPE: EGD BIOPSY MELISSA DR: Dr. Praveen Lutz DO Tissues: Esophagus, NOS Procedures: Special Stain Group I Surgery Specimen Level IV Alcian Blue/PAS (control) HEADER OPERATION: EGD with biopsy PRE-OP DIAGNOSIS: GI bleed TISSUE SUBMITTED: Distal esophagus biopsy MICROSCOPIC DIAGNOSIS Distal esophagus, biopsy: Fragments of gastroesophageal mucosa with chronic inflammation. Intestinal metaplasia (goblet cell metaplasia) not identified. See comment. 07/20/2024 COMMENT Alcian blue/PAS stain with matched control is used in the evaluation of the specimen. MICROSCOPIC DESCRIPTION Slides are reviewed. GROSS DESCRIPTION Received in fixative is one container labeled with the patient's name and designated Distal esophagus biopsy. The specimen consists of two irregular fragments of light constantino soft tissue that in aggregate measure 0.8 x 0.4 x 0.1 cm. The specimen is totally submitted in one cassette. 07/19/2024 TC:3 CPT:09321,57437
--- NOTE | 2024-07-16 15:38 | OP.EGD_ITS ---
Patient Name: Saloni Moffett Procedure Date: 07/16/2024 3:13 PM Date of : 1950 Age: 74 Procedure: Upper GI endoscopy Indications: Peptic ulcer Providers: Jared Wells DO Referring MD: Praveen Lutz Medicines: Monitored Anesthesia Care Patient Profile: This is a 74 year old female. Refer to note in patient chart for documentation of history and physical. Patient has symptoms. Complications: No immediate complications. Procedure: Pre-Anesthesia Assessment: - Prior to the procedure, a History and Physical was performed, and patient medications and allergies were reviewed. The patient is competent. The risks and benefits of the procedure and the sedation options and risks were discussed with the patient. All questions were answered and informed consent was obtained. Patient identification and proposed procedure were verified by the physician in the pre-procedure area. Mental Status Examination: alert and oriented. Airway Examination: normal oropharyngeal airway and neck mobility. Respiratory Examination: clear to auscultation. CV Examination: normal. Prophylactic Antibiotics: The patient does not require prophylactic antibiotics. Prior Anticoagulants: The patient has taken no anticoagulant or antiplatelet agents except for NSAID medication. ASA Grade Assessment: II - A patient with mild systemic disease. After reviewing the risks and benefits, the patient was deemed in satisfactory condition to undergo the procedure. The anesthesia plan was to use monitored anesthesia care (MAC). Immediately prior to administration of medications, the patient was re-assessed for adequacy to receive sedatives. The heart rate, respiratory rate, oxygen saturations, blood pressure, adequacy of pulmonary ventilation, and response to care were monitored throughout the procedure. The physical status of the patient was re-assessed after the procedure. After obtaining informed consent, the endoscope was passed under direct vision. Throughout the procedure, the patient's blood pressure, pulse, and oxygen saturations were monitored continuously. The gastroscope was introduced through the mouth, and advanced to the second part of duodenum. The upper GI endoscopy was accomplished without difficulty. The patient tolerated the procedure well. Scope In: 3:31:55 PM Scope Out: 3:34:11 PM Total Procedure Duration Time 0 hours 2 minutes 16 seconds Findings: LA Grade A (one or more mucosal breaks less than 5 mm, not extending between tops of 2 mucosal folds) esophagitis with no bleeding was found 39 to 40 cm from the incisors. Biopsies were taken with a cold forceps for histology. Verification of patient identification for the specimen was done. Estimated blood loss was minimal. The entire examined stomach was normal. The second portion of the duodenum was normal. Impression: - LA Grade A reflux esophagitis with no bleeding. Biopsied. - Normal stomach. - Normal second portion of the duodenum. Recommendation: - Discharge patient to home. - Resume previous diet. - Continue present medications. - Await pathology results. Procedure Code(s): --- Professional --- 81122, Esophagogastroduodenoscopy, flexible, transoral; with biopsy, single or multiple CPT copyright 2021 [employer]. All rights reserved. The codes documented in this report are preliminary and upon skate maker review may be revised to meet current compliance requirements. Jared Wells DO 07/16/2024 3:38:40 PM This report has been signed electronically. Number of Addenda: 0 Note Initiated On: 07/16/2024 3:13 PM
--- NOTE | 2024-07-16 15:38 | PCM.POST.ANE ---
Anesthesia: Postop Eval I Current Vital Signs Temperature: 97.9 F Pulse Rate: 79 Blood Pressure: 135/76 Respiratory Rate: 16 Pulse Ox: 95 Oxygen Delivery Method: Room Air Assessment Airway patent: Yes Spontaneous unlabored respirations: Yes Mental status: Awake nausea: No Vomiting: No Anesthesia Complication: No Fluid Hydration Crystalloid volume administer (ml): 400 Total IV fluid infused: 400 Progress Note Anesthesia document: Postop Eval 1 completed: Yes
[2024-07-16 15:39] LABS: Bedside Glucose 117 mg/dL (74-106)
--- NOTE | 2024-07-16 15:39 | OP.CCLET_ITS ---
07/16/2024 Praveen Lutz [address] [facility] [place] [address] Re : Upper GI endoscopy procedure for Saloni [facility] Dear Dr. Lutz This procedure was performed on Tuesday, July 16, 2024. My impressions and recommendations are as follows: Impressions : - LA Grade A reflux esophagitis with no bleeding. Biopsied. - Normal stomach. - Normal second portion of the duodenum. Recommendations : - Discharge patient to home. - Resume previous diet. - Continue present medications. - Await pathology results. My findings are described in the full procedure note, which is enclosed. If I can be of further assistance, please feel free to contact me at . Sincerely, Jared Wells, 07/16/2024 3:38:40 PM This report has been signed electronically.
--- NOTE | 2024-07-16 15:39 | POSTOPAN2_ITS ---
Anesthesia Postop Eval I Sum Postop Eval Completion status Anesthesia document: Postop Eval 1 completed: Yes Anesthesia Postop Eval I Summary Anesthesia Postop Eval I Summary: Anesthesia Postop Eval I: Assessment Summary Airway patent Yes 07/16/24 15:39 PLASTICS FABRICATOR AND [email or web address].MDOT Spontaneous unlabored Yes 07/16/24 15:39 PLASTICS FABRICATOR AND [email or web address].MDOT respirations Mental status Awake 07/16/24 15:39 PLASTICS FABRICATOR AND [email or web address].MDOT nausea No 07/16/24 15:39 PLASTICS FABRICATOR AND [email or web address].MDOT Vomiting No 07/16/24 15:39 PLASTICS FABRICATOR AND [email or web address].MDOT Anesthesia Postop Eval I: Fluid Summary Crystalloid volume administer 400 07/16/24 15:39 PLASTICS FABRICATOR AND [email or web address].MDOT (ml) Colloids volume administered ( ml) Blood Product volume administered (ml) Total IV fluid infused 400 07/16/24 15:39 PLASTICS FABRICATOR AND [email or web address].MDOT Anesthesia Postop Eval I: Summary Notes Anesthesia Complication No 07/16/24 15:39 PLASTICS FABRICATOR AND [email or web address].MDOT Anesthesia Complication Comment: Post-operative progress note Anesthesia: Postop Eval II Evaluation Mental status: Awake and Calm Pain Level: 0 nausea: No Vomiting: No Complications Anesthesia Complication: No
--- NOTE | 2024-07-16 15:39 | PCM.POSTANE2 ---
Anesthesia Postop Eval I Sum Postop Eval Completion status Anesthesia document: Postop Eval 1 completed: Yes Anesthesia Postop Eval I Summary Anesthesia Postop Eval I Summary: Anesthesia Postop Eval I: Assessment Summary Airway patent Yes 07/16/24 15:39 [email or web address] Spontaneous unlabored Yes 07/16/24 15:39 [email or web address] [email or web address] respirations Mental status Awake 07/16/24 15:39 [email or web address] nausea No 07/16/24 15:39 [email or web address] Vomiting No 07/16/24 15:39 [email or web address] Anesthesia Postop Eval I: Fluid Summary Crystalloid volume administer 400 07/16/24 15:39 [email or web address] (ml) Colloids volume administered ( ml) Blood Product volume administered (ml) Total IV fluid infused 400 07/16/24 15:39 [email or web address] Anesthesia Postop Eval I: Summary Notes Anesthesia Complication No 07/16/24 15:39 [email or web address] Anesthesia Complication Comment: Post-operative progress note Anesthesia: Postop Eval II Evaluation Mental status: Awake and Calm Pain Level: 0 nausea: No Vomiting: No Complications Anesthesia Complication: No
== END 2024-07-16 16:25 | disposition home or self-care (01) ==
LOC: EN 13:37 → AC 13:40
PROVIDERS: PCP Family Medicine; Referring Provider Internal Medicine Gastroenterology; Visit Provider Internal Medicine Gastroenterology
PROC: 0DJ08ZZ Inspection of Upper Intestinal Tract, Via Natural or Artificial Opening Endoscopic (ICD-10-PCS; CPT 43235; principal; 2024-07-16 14:55)
DX: K92.2 Gastrointestinal hemorrhage, unspecified (principal); K21.01 Gastro-esophageal reflux disease with esophagitis, with bleeding
CPT/HCPCS: 43239; 82962; 88305; 88312; J7120; J2405

== ENCOUNTER → 2024-08-30 | Outpatient (CLI) | payer MEDICARE, SELFPAY ==
[2024-08-30 18:05] LABS: Absolute Lymphocyte Count 1.33 X10^3/uL (0.83-4.51); Absolute Neutrophil Count 5.3 X10^3/uL (2.0-7.7); Basophil# 0.04 X10^3/uL; Basophil% 0.5 % (0-1); Eosinophil# 0.18 X10^3/uL; Eosinophils% 2.5 % (0-5); Hematocrit 42.4 % (37-47); Hemoglobin 13.5 g/dL (12.0-15.0); Lymphocyte # 1.33 X10^3/ul (0.83-4.51); Lymphocyte % 18.2 % (19-41); Mean Corp Hgb Conc 31.8 g/dL (32-36); Mean Corpuscular Hgb 34.4 pg (27.0-32.0); Mean Corpuscular Volume 108.2 fL (81-99); Mean Platelet Vol. 9.5 fl (6.2-12.0); Monocyte# 0.49 X10^3/uL; Monocyte% 6.7 % (0-10); NRBC Flagged by Analyzer 0 % (0-5); Neutrophil # 5.25 X10^3/uL (2.7-7.7); Neutrophil % 71.7 % (47-70); Platelet Count 250 K/mm3 (150-450); RBC Distribution Width CV 13.2 % (11.6-14.6); RBC Distribution Width SD 52.6 fl (35.1-43.9); Red Blood Count 3.92 M/mm3 (4.2-5.4); White Blood Count 7.3 K/mm3 (4.4-11.0)
[2024-08-30 18:09] LABS: Vitamin D,25 Hydroxy 32.4 ng/mL
[2024-08-30 18:14] LABS: Hemoglobin A1c 6.6 % (3.8-5.6)
[2024-08-30 18:28] LABS: AST(SGOT) 16 U/L (15-37); Alanine Aminotransfer ALT/SGPT 22 U/L (13-56); Albumin, Serum 3.9 g/dL (3.2-5.0); Alkaline Phosphatase 137 U/L (45-117); Anion Gap 8 (5-15); BUN 33 mg/dL (7-18); BUN/Creat Ratio 30.6 RATIO (10-20); Calcium,Total 9.6 mg/dL (8.5-10.1); Chloride 107 mmol/L (98-107); Cholesterol 182 mg/dL (200); Creatinine, Serum 1.08 mg/dL (0.55-1.02); EST Glomerular Filtration Rate 53 mL/min (>60); Est Glom Filt Rate - Afr Amer 64 mL/min (>60); Glucose 98 mg/dL (74-106); High Density Lipoprotein 75 mg/dL; Potassium 4.2 mmol/L (3.5-5.1); Protein, Total 7.9 g/dL (6.4-8.2); Sodium Level 140 mmol/L (136-145); Triglycerides 102 mg/dL; Very Low Density Lipoprotein 20 mg/dL (5-40)
[2024-08-30 18:39] LABS: Microalbumin,Random Urine 44.9 mg/L (NO RANGE EST.); Microalbumin:Creatinine Ratio 67.8 mg/g CRE (<30 mg/g CRE)
== END | disposition home or self-care (01) ==
LOC: BFHLAB 14:03
PROVIDERS: PCP Family Medicine; Referring Provider Family Medicine; Visit Provider Family Medicine
DX: E11.40 Type 2 diabetes mellitus with diabetic neuropathy, unspecified (principal); E03.9 Hypothyroidism, unspecified; D64.9 Anemia, unspecified; M85.80 Other specified disorders of bone density and structure, unspecified site
CPT/HCPCS: 36415; 80053; 80061; 82043; 82306; 82570; 83036; 84443; 85025

== ENCOUNTER → 2024-09-23 | Outpatient (CLI) | payer MEDICARE, SELFPAY ==
--- NOTE | 2024-09-23 14:35 | BD_ITS ---
STUDY: DUAL ENERGY X-RAY ABSORPTIOMETRY / DXA REASON FOR EXAM: Female, 74 years old. 733.00OsteoporosisBONE DENSITY REASON FOR EXAM TECHNIQUE: Bone Mineral Density (BMD) measurements of lumbar spine and right hip were obtained. COMPARISON: Comparison is made with prior study dated September 06, 2021. FINDINGS: Lumbar Spine (L1-L4): g/cm2 (0.992) / T-score (-0.2) / Z-score (2.1) Findings are suggestive of normal bone density with a low fracture risk. Right Femur Total: g/cm2 (0.730) / T-score (-1.7) / Z-score (0.0) Right Femoral Neck: g/cm2 (0.602) / T-score (-2.2) / Z-score (-0 point) The T-Scores on the most recent prior examination were: Lumbar Spine (L1-L4): There has been improvement of bone density since the previous examination. Right Femur Total: which represents a worsening of 6.8%. BD/Dexa Bone Density Study IMPRESSION: The patient is considered osteopenic as outlined below according to World [place] Organization (WHO) criteria with a high fracture risk. There has been worsening of bone density since the previous examination. Reference Information: The T-score is the number of standard deviations above or below the standard which is normal for young adults at their peak bone mineral density. The World Health Organization (WHO) interprets the T-scores as follows: Above -1 Normal bone density Between -1 and -2.5 Osteopenia Equal to / or below -2.5 Osteoporosis As a practical clinical guideline, osteopenia may be graded as follows: Mild -1 through -1.5 Moderate -1.6 through -2.0 Severe -2.1 through -2.4 The Z-score is the number of standard deviations above or below age-matched controls. A Z-score of less than -1.5 would be considered abnormal. References: 1. NIH Osteoporosis and Related Bone Diseases www osteo.org 2. International Society for Clinical Densitometry www iscd.org 3. National Osteoporosis Foundation www nof.org Electronically Signed: Michael Abdul MD at 13:59 EST ,
== END | disposition home or self-care (01) ==
LOC: OPBD 14:33
PROVIDERS: PCP Family Medicine; Referring Provider Family Medicine; Visit Provider Family Medicine
DX: M81.0 Age-related osteoporosis without current pathological fracture (principal)
CPT/HCPCS: 77080

== ENCOUNTER 2024-10-13 11:30 | Outpatient (RCR) | payer MEDICARE, SELFPAY ==
--- NOTE | 2024-09-08 17:07 | HP.PTEVAL ---
Patient's Visit Information Visit Information Visit Information: IMAN HICKS is a 74 year old F referred to Physical Therapy by Dr. Praveen Lutz DO with a diagnosis of Gait instability. Date of Evaluation: 09/08/24 Physical Therapist: Yoel Duarte, DPT, OCS, CSCS Visit Plan Frequency: 2-3x /Week Duration: 4-6 Weeks Plan: 2-3x/week for 4-6 weeks IE: balance HO reviewed adn asked to use wh walker at all times and take bigger steps, get sliders for back and benfits of step up with rail as HEP, also need to clear clutter from hallways for safety. Treat with combination of LE strength(home and gym as patient will join [employer]), weight shift and balance, and fucnitonal strength exercises to steps to I with pics. 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 Everyday is different but balance is off very often and some days better than others. Sometimes leg hurt like crazy and other times not bad. L knee has problems and had x ray and lots of OA. 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 Had this problem for long time and been here 2x for the same thing which helps. Therapy worked short duration and felt balance was better. Regular exercise is not happening. Will see Dr. Roach for pain management for overall pain. Had to sell house and gets depressed at times. Sleep is not great and she is not sure why.Not painful.. Employed: NO Basic ADLs are getting done slowly, has to hold on and be careful Lives alone with no steps. Hobbies: landscaping, but cannot. Spends day working on organizing house. Avoids cleaning b/c has to be so careful. Some days no AD needed, some days inclduing today uses wh walker or rollator aor canes and has them all Objective Objective: Walks with wh [id number] with short steps into PT veering R due to walker friction on back legs. Transfers slow but I bed and chair. Steps reciprocal with one rail, no confidence but can do it, slightly weaker on R LE. LE AROM WFL but stiff and slow, ev/inv coordination challenging but strength 4-, PF/DF strength 4, knee flex/ext 3+ B, hip abd and ext 3+ B. Very stiff in HS and quads holding subconsciously but can relax with VC. reflexes 2./3 patella and achilles B. Sensation WNl to gross lgiht touch in B LE coordintaion and positional awareness at ankles is poor to reciprocal heel tap and heel to cobb test. neuropathy noticeable in gait pattern lacking weight shift and short steps with poor confidence of weight shift and foot placement. Funcitonal weakness on steps R>L and using arms to get out of chair. Balance/Special Test Scores Functional Gait Assessment Score: 19 % Disability: 36.6700 Lower Extremity Functional Score: 30 Goals Goal 1:: FGA score 22/30 to reduce fall risk Goal Time Frame: 4-6 Weeks Goal 2:: Steps reciprocally with one rail without hesitation and no confidence boost needed Goal Time Frame: 4-6 Weeks Goal 3:: I appropriate HEP for strength LE, weight shift, balance and funcitonal at home Goal Time Frame: 4-6 Weeks Goal 4:: LEFS 40 Goal Time Frame: 4-6 Weeks Goal 5:: Pt feel mobility improved by 50% Goal Time Frame: 4-6 Weeks Rehabilitation Potential Physical Therapy Diagnosis: neuropathy creating weight shift deficits and balance instabilities with weakness. Rehabilitation Potential: Fair Anticipated Interventions Patient/Client Instruction: Educate patient on: Condition and Plan of Care For the Purpose of:: To increase ROM, To improve nutrient delivery to tissue, To improve muscle performance and motor function and To increase tolerance to activity/condition/position Therapeutic Exercise to Include: Strength training, Balance training, Flexibilty training, Gait and locomotor training and Active ROM For the Purpose of:: To increase ROM, To improve nutrient delivery to tissue, To increase oxygenation perfusion, To improve muscle performance and motor function, To increase tolerance to activity/condition/position and To improve gait and locomotor functions Text: Thank you for the opportunity to evaluate your patient. For Medicare and Medicare HMO plans, please review the plan of care and approve it. It will need to be FAXED BACK to us at [phone] for Medicare purposes. For Medicare only, by signing this I certify the plan of care. Please let me know if there are questions or concerns regarding this plan of care. Physician Signature: Date:
--- NOTE | 2024-12-10 13:13 | HP.PT.NRP ---
Patient Information Patient Information: IMAN HICKS was seen in my office for initial evaluation on 09/08/24. The following Plan of Care was established for this patient: POC Established Initial Frequency: 2-3x /Week Initial Duration: 4-6 Weeks Anticipated Interventions Patient/Client Instruction: Educate patient on: Condition and Plan of Care For the Purpose of:: To increase ROM, To improve nutrient delivery to tissue, To improve muscle performance and motor function and To increase tolerance to activity/condition/position Therapeutic Exercise to Include: Strength training, Balance training, Flexibilty training, Gait and locomotor training and Active ROM For the Purpose of:: To increase ROM, To improve nutrient delivery to tissue, To increase oxygenation perfusion, To improve muscle performance and motor function, To increase tolerance to activity/condition/position and To improve gait and locomotor functions Last Seen Last Seen: This patient was last seen in our office 10/13/24. Pertinent comments regarding their Physical therapy will appear below: Pt seen for 5 visits of POC and did not attend any further visits of POC. At this point, it has been almost two months and I will discontinue from my care. At this point I will be discontinuing this patient from physical therapy. I would be happy to see this patient again in the future if found appropriate by the physician. Thank you! Yoel Duarte, DPT, OCS, CSCS Balance/Gait/Functional tests Balance/Special Test Scores Functional Gait Assessment Score: 19 % Disability: 36.6700 Lower Extremity Functional Score: 30
== END 2024-10-13 19:00 | disposition home or self-care (01) ==
LOC: PT 11:30
PROVIDERS: PCP Family Medicine; Referring Provider Family Medicine; Visit Provider Family Medicine
DX: R29.898 Other symptoms and signs involving the musculoskeletal system (principal); R26.9 Unspecified abnormalities of gait and mobility; Z91.81 History of falling
CPT/HCPCS: 97110; 97162

== ENCOUNTER 2025-10-26 17:04 | Inpatient (IN) | payer MEDICARE, SELFPAY ==
[2025-10-26] VITALS (28 sets, daily range): BP systolic 125–160; BP diastolic 68–112; PULSE 71–99; RESP 11–18; TEMP 36.2–36.7; O2SAT 93–100; BMI 21.9
--- NOTE | 2025-10-26 17:06 | CT_ITS ---
PROCEDURE: STROKE BRAIN/HEAD WITHOUT CONT; STROKE CTA HEAD AND NECK W/CON 10/26/2025 REASON FOR EXAM: NEURO DEFICIT, ACUTE, STROKE SUSPECTED TECHNIQUE: Procedure Code: CTBR.ST; CTCTA.ST.HN Modality: CT Procedure: STROKE BRAIN/HEAD WITHOUT CONT; STROKE CTA HEAD AND NECK W/CON Coronal and Sagittal reconstructions were provided. 3D post processing was performed. 100 cc of Isovue 370 intravenous contrast was administered. One or more dose reduction techniques were used (e.g., Automated exposure control, adjustment of the mA and/or kV according to patient size, use of iterative reconstruction technique. RADIATION DOSE SUMMARY: Head: DLP: 796.11 mGycm; CTA head/neck: DLP: 652.56 mGycm COMPARISON: Head CT 06/04/2023. FINDINGS: CTA HEAD: Patent intracranial arterial vasculature. No large vessel occlusion, flow- limiting stenosis, saccular aneurysm, or vascular malformation identified. Dural venous sinuses appear patent. CTA NECK: Conventional aortic arch branching. Bilateral cervical carotid and vertebral arteries are patent without hemodynamically significant stenosis. No aneurysm or dissection. Mild atherosclerotic plaque at the carotid artery bifurcations, with mild less than 50% narrowing of the proximal ICAs. NON-ANGIOGRAPHIC FINDINGS: No acute intracranial hemorrhage, extra-axial collection, mass effect or evidence of acute territorial infarct. Mild-moderate generalized brain parenchymal volume loss and chronic microangiopathic changes. Absent nondalton ocular lenses. Intact skull base and calvarium. Clear paranasal sinuses and mastoid air cells. Mild multilevel cervical spondylotic changes. Biapical centrilobular pulmonary emphysema. CT/STROKE Brain/Head without Cont IMPRESSION: No acute intracranial abnormality. No large vessel arterial occlusion or hemodynamically significant stenosis. Stroke Alert: The critical findings in above were relayed directly by me via telephone to Toni Dave on 10/26/2025 at 4:31 pm HAND CLERICAL VERIFIER with readback verification. Reading Location: [id number]
--- NOTE | 2025-10-26 17:06 | EKG12_ITS ---
Test Reason : STROKE Blood Pressure : */* mmHG Vent. Rate : 94 BPM Atrial Rate : 94 BPM P-R Int : 144 ms QRS Dur : 92 ms QT Int : 352 ms P-R-T Axes : 63 42 35 degrees QTcB Int : 440 ms Normal sinus rhythm Possible Right ventricular hypertrophy Confirmed by Richard Heart ([id number]), editorial intern FÉLIX RUSSELL ([id number]) on 10/27/2025 7:48:13 AM Referred By: Confirmed By: Richard Heart
--- NOTE | 2025-10-26 17:07 | CT_ITS ---
PROCEDURE: STROKE BRAIN/HEAD WITHOUT CONT; STROKE CTA HEAD AND NECK W/CON 10/26/2025 REASON FOR EXAM: NEURO DEFICIT, ACUTE, STROKE SUSPECTED TECHNIQUE: Procedure Code: CTBR.ST; CTCTA.ST.HN Modality: CT Procedure: STROKE BRAIN/HEAD WITHOUT CONT; STROKE CTA HEAD AND NECK W/CON Coronal and Sagittal reconstructions were provided. 3D post processing was performed. 100 cc of Isovue 370 intravenous contrast was administered. One or more dose reduction techniques were used (e.g., Automated exposure control, adjustment of the mA and/or kV according to patient size, use of iterative reconstruction technique. RADIATION DOSE SUMMARY: Head: DLP: 796.11 mGycm; CTA head/neck: DLP: 652.56 mGycm COMPARISON: Head CT 06/04/2023. FINDINGS: CTA HEAD: Patent intracranial arterial vasculature. No large vessel occlusion, flow- limiting stenosis, saccular aneurysm, or vascular malformation identified. Dural venous sinuses appear patent. CTA NECK: Conventional aortic arch branching. Bilateral cervical carotid and vertebral arteries are patent without hemodynamically significant stenosis. No aneurysm or dissection. Mild atherosclerotic plaque at the carotid artery bifurcations, with mild less than 50% narrowing of the proximal ICAs. NON-ANGIOGRAPHIC FINDINGS: No acute intracranial hemorrhage, extra-axial collection, mass effect or evidence of acute territorial infarct. Mild-moderate generalized brain parenchymal volume loss and chronic microangiopathic changes. Absent [place] ocular lenses. Intact skull base and calvarium. Clear paranasal sinuses and mastoid air cells. Mild multilevel cervical spondylotic changes. Biapical centrilobular pulmonary emphysema. CT/STROKE CTA Head AND Neck W/Con IMPRESSION: No acute intracranial abnormality. No large vessel arterial occlusion or hemodynamically significant stenosis. Stroke Alert: The critical findings in above were relayed directly by me via telephone to Toni Dave on 10/26/2025 at 4:31 pm CONTROL OFFICER MANAGER with readback verification. Reading Location: [id number]
--- NOTE | 2025-10-26 17:08 | EX.ED.DYSGE1 ---
HPI History of Present Illness Chief Complaint: Stroke Alert Narrative Narrative: Patient is a 75-year-old female with past medical history of hypothyroidism, type 2 diabetes, GI bleed, GERD, CVA, rheumatoid arthritis, TIA who presented to the emergency department with a chief complaint of slurred speech weakness. According to EMS her symptoms started around 10 AM and her significant other states that it progressively worsened throughout the day prompting them to call the EMS personnel to have her brought here to the emergency department to be further evaluated. They state that she has not any blood thinning medications. Patient states that she had 2 falls the day but does not believe that she hit her head. Per EMS they did not have any lateralizing weakness symptoms they just noted that she had slurred speech and was overall very weak. At time my exam they state that her weakness is improving. [facility] Medical History Hx of fracture of left hip Wears glasses Post-menopausal Anxiety Thyroid disease Diabetes Gastric reflux Former smoker Shortness of breath on exertion Chronic cough History of pain when walking History of edema Hx of fracture of femur Peripheral neuropathy Back pain due to injury Syncope History of stress test Kidney stones Stroke/cerebrovascular accident Diabetes Primary localized osteoarthritis of hips, bilateral Spinal stenosis of lumbar region at multiple levels Spinal stenosis in cervical region DDD (degenerative disc disease), lumbar Low back pain Lichen sclerosus Atrophic vaginitis HSV (herpes simplex virus) infection Stress incontinence Rheumatoid arthritis Easy bruising Leg cramps Left renal stone Alcohol use Smoker Hypertension Goiter 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 Diabetes 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 TIA (transient ischemic attack) Vision problems Hypothyroidism GERD (gastroesophageal reflux disease) H/O: pneumonia Neuropathy Goiter Carpal tunnel syndrome Cataracts, bilateral Recurrent UTI Back problem Arthritis Anxiety and depression Seasonal allergies Type 2 diabetes mellitus Home Medications ?Medication ?Instructions ?Recorded ?Last Taken ?Type bupropion HCl 300 mg 24 hr tablet, 300 mg PO QAM depression 11/20/18 07/15/24 History extended release (Wellbutrin XL) multivitamin with minerals-folic 1 tab PO DAILY vitamin 11/20/18 Unknown History acid 0.4 mg tablet (Adult One Daily Multivitamin) fluticasone propionate 50 1 spray NASAL DAILY PRN allergies 06/22/20 Unknown History mcg/actuation nasal spray,suspension metformin 500 mg tablet 1,000 mg PO DAILY diabetes 08/04/20 07/15/24 History levothyroxine 175 mcg tablet 150 mcg PO DAILY hypothyroid 01/30/22 07/16/24 History (Synthroid) metformin 500 mg tablet 500 mg PO QHS diabetes 06/28/22 07/15/24 History acetaminophen 500 mg tablet 1,000 mg (2 x 500 mg) PO Q8 pain 03/11/24 Unknown Rx #0 tabs sennosides 8.6 mg-docusate sodium 2 tab PO BID #0 tabs 03/26/24 Unknown Rx 50 mg tablet (Stool Softener-Stimulant Laxative) Caffeine [No Doz] 300 mg PO DINNER PRN FATIQUE 07/14/24 Unknown History Caffeine [No Doz] 300 mg PO LUNCH PRN FATIQUE 07/14/24 07/15/24 History gabapentin 100 mg capsule 200 mg PO TIDCM 07/14/24 07/16/24 History omeprazole 40 mg capsule,delayed 40 mg PO DAILY 07/14/24 Unknown History release bupropion HCl 150 mg 24 hr tablet, 150 mg PO DAILY 10/26/25 Unknown History extended release clobetasol 0.05 % topical ointment topical 10/26/25 Unknown History lisinopril 5 mg tablet 5 mg PO DAILY 10/26/25 Unknown History Allergy/AdvReac Type Severity Reaction Status Date / Time No Known Allergies Allergy Verified 10/26/25 17:12 Family History Mother Cancer Father Diabetes Heart disease Sister Diabetes Surgical History Hx of esophagogastroduodenoscopy Hx of cystoscopy History of colonoscopy History of foot surgery History of lithotripsy History of carpal tunnel surgery Social History household members: none housing: house number of children: 0 current occupational status: retired Smoking Status: Current every day smoker tobacco type: cigarettes alcohol intake: current alcohol intake frequency: holidays/special occasions only substance use type: does not use seatbelt use: always do you feel safe at home: Yes additional social history: ROS ROS ED ROS Narrative Constitutional: Denies any headache, lightness, dizziness, fevers, chills Eyes: Denies double vision Cardiovascular: Denies chest pain Respiratory: Denies shortness of breath Abdomen: Denies abdominal pain nausea vomit diarrhea : Denies urinary symptoms Neurological: Complaint of slurred speech and weakness as noted above Musculoskeletal: Denies back pain Skin: Denies any rashes or lesions EXAM Physical Exam Narrative Exam Narrative: General: Patient was lying in bed rest comfortably did not appear to be in acute distress Head: Atraumatic, normocephalic Eyes: PERRL bilaterally, EOMI bilaterally, no conjunctival injection noted Neck: Soft, supple, trachea midline Cardiovascular: Regular rate and rhythm no murmurs gallops rubs noted Respiratory: Clear to auscultation bilaterally Abdomen: Soft, nondistended, no tenderness to palpation Extremities: +3/5 strength noted in the bilateral upper and lower extremities Neurological: Patient is following commands knew that she was at the hospital. NIH of 1 GCS 15 Skin: Warm, dry, intact no rashes or lesions noted Const Vital Signs: 10/26/25 17:05 10/26/25 17:06 10/26/25 17:10 Temperature 97.8 F Temperature Source Temporal Pulse Rate 91 99 Respiratory Rate 17 16 Blood Pressure 155/86 H 160/112 H Blood Pressure Mean 109 128 Pulse Ox 95 97 Oxygen Delivery Method 10/26/25 17:11 10/26/25 17:26 10/26/25 17:35 Temperature Temperature Source Pulse Rate 89 92 Respiratory Rate 16 14 Blood Pressure 155/86 H 149/87 H Blood Pressure Mean 109 107 Pulse Ox 97 96 93 Oxygen Delivery Method Room Air Room Air 10/26/25 17:36 10/26/25 18:04 10/26/25 18:30 Temperature Temperature Source Pulse Rate 92 84 Respiratory Rate 13 18 Blood Pressure 149/87 H 137/85 H 134/83 H Blood Pressure Mean 107 102 98 Pulse Ox 95 95 Oxygen Delivery Method Room Air 10/26/25 18:45 10/26/25 18:46 10/26/25 19:00 Temperature Temperature Source Pulse Rate 80 79 78 Respiratory Rate 17 15 12 Blood Pressure 134/79 H 134/79 H 125/68 H Blood Pressure Mean 96 97 87 Pulse Ox 95 96 98 Oxygen Delivery Method 10/26/25 19:00 10/26/25 19:15 10/26/25 19:30 Temperature Temperature Source Pulse Rate 77 76 83 Respiratory Rate 11 L 11 L 15 Blood Pressure 125/68 H 135/80 H 154/87 H Blood Pressure Mean 85 97 107 Pulse Ox 97 99 Oxygen Delivery Method 10/26/25 19:40 10/26/25 19:45 10/26/25 20:00 Temperature 98.1 F Temperature Source Oral Pulse Rate 77 76 75 Respiratory Rate 18 16 15 Blood Pressure 154/87 H 136/83 H 140/82 H Blood Pressure Mean 109 97 100 Pulse Ox 98 97 98 Oxygen Delivery Method Room Air Room Air 10/26/25 20:15 10/26/25 20:30 10/26/25 20:45 Temperature Temperature Source Pulse Rate 77 76 78 Respiratory Rate 14 13 12 Blood Pressure 134/82 H 144/79 H 148/83 H Blood Pressure Mean 97 97 103 Pulse Ox 98 100 Oxygen Delivery Method Room Air Room Air 10/26/25 21:00 Temperature Temperature Source Pulse Rate 78 Respiratory Rate 14 Blood Pressure 145/80 H Blood Pressure Mean 101 Pulse Ox 98 Oxygen Delivery Method Room Air MDM MDM MDM Narrative Medical decision making narrative: Patient is a 75-year-old female who presented to the emergency department with a chief complaint of slurred speech, generalized weakness on the differential diagnose includes but not limited to intracranial hemorrhage, ischemic stroke, TIA, hypoglycemia, electrolyte normality, UTI, pneumonia. Once workup is obtained reviewed she will be reevaluated. Patient was prehospital stroke. Patient is not a tenecteplase candidate as her symptoms started at 10 AM this morning. Patient CBC reviewed and showed a white count of 6.9, he was 13.4, platelet count was noted to be 210. Patient's INR normal at 1, PT of 13.7. Patient sodium was 142, potassium normal 4.2, creatinine was noted be 1.06. Patient glucose elevated 146, troponin was noted be 26 with a delta troponin of 24. Patient's EKG was reviewed which showed sinus rhythm with a rate of 94 bpm MI interval 144. Patient TSH normal at 1.56, T4 and T3 was 1.70 and 2.6 respectively. Patient urinalysis showed evidence of UTI with 100 leukocyte esterase 10-25 white cells and 3+ bacteria she was given a gram of Rocephin . Patient CT head and brain without contrast showed no acute intracranial abnormalities and CTA head and neck showed no evidence of large vessel occlusion. Teleneurology did evaluate the patient at bedside and they state that they have low suspicion that this is a stroke based on what she described, however patient is a very poor historian and notes that she had what difficulty walking today and notes that she was having slurred speech as well which has resolved at this point in time. I discussed with the patient given her symptoms of multiple falls UTI I do believe she will warrant admission for further workup with PT OT evaluation and possible placement. She is agreeable this plan as well as significant other at bedside all question concerns answered. Spoke with hospitalist Dr. Desir who accept the patient for admission. Patient is agreeable this plan. Lab Data Labs: Laboratory Results - last 24 hr 10/26/25 10/26/25 10/26/25 16:57 17:55 19:04 WBC 6.9 RBC 3.77 L Hgb 13.4 Hct 40.1 MCV 106.4 H MCH 35.5 H MCHC 33.4 RDW Std Deviation 51.4 H RDW Coeff of [place] 13.0 Plt Count 210 MPV 9.6 Immature Gran % (Auto) 0.400 Neut % (Auto) 75.1 H Lymph % (Auto) 15.3 L [place] % (Auto) 6.6 Eos % (Auto) 2.0 Baso % (Auto) 0.6 Absolute Neuts (auto) 5.1 Absolute Lymphs (auto) 1.05 Nucleated RBC % 0 PT 13.7 INR 1.0 APTT 29.8 Sodium 142 Potassium 4.2 Chloride 107 Carbon Dioxide 21.2 Anion Gap 13 BUN 30 H Creatinine 1.06 Estim Creat Clear Calc 51.95 Est GFR (MDRD) Non-Af 55 L BUN/Creatinine Ratio 27.8 H Glucose 146 H Calcium 9.8 Troponin T High Sens 26 H Troponin T Hi Sens 2 Hr 24 H TSH 1.560 Free T4 1.70 H Free T3 pg/dL 2.6 Urine Color Straw Urine Clarity Cloudy Urine pH 6.0 Ur Specific [place] 1.010 Urine Protein 15 H Urine Glucose (UA) Normal Urine Ketones Negative Urine Occult Blood 10 H Urine Nitrite Positive H Urine Bilirubin Negative Urine Urobilinogen Normal Ur Leukocyte Esterase 100 H Urine RBC 0-5 SEEN Urine WBC 10-25 SEEN Ur Squamous Epith Cells 0-5 SEEN Urine Bacteria 3+ Urine Mucus 0 SEEN Radiography Diagnostic Testing: Clinical Impression(s) from Imaging Studies Brain CT 10/26/25 17:06 IMPRESSION: No acute intracranial abnormality. No large vessel arterial occlusion or hemodynamically significant stenosis. Stroke Alert: The critical findings in above were relayed directly by me via telephone to Toni Shrestha on 10/26/2025 at 4:31 pm [employer]ONDARY [employer] with readback verification. Reading Location: [facility] Head/Neck CTA 10/26/25 17:07 IMPRESSION: No acute intracranial abnormality. No large vessel arterial occlusion or hemodynamically significant stenosis. Stroke Alert: The critical findings in above were relayed directly by me via telephone to Toni Shrestha on 10/26/2025 at 4:31 pm SECONDARY TEACHER with readback verification. Reading Location: [facility] Discharge Plan Dx/Rx/DC Orders Clinical Impression: Multiple falls, Hypothyroidism, Diabetes mellitus type 2 in nonobese, Weakness, Slurred speech Disposition Disposition: Acute Care Hospital [facility]
[2025-10-26] MEDS: 0.9% Normal Saline (1000mL) 1,000 ML 999 ML IV (17:20)
[2025-10-26 17:26] LABS: Hematocrit 40.1 % (37-47); Hemoglobin 13.4 g/dL (12.0-15.0); Immature Granulocytes Count 0.030 X10^3/uL (0.0-0.0); Mean Corp Hgb Conc 33.4 g/dL (32-36); Mean Corpuscular Volume 106.4 fL (81-99); Mean Platelet Vol. 9.6 fl (6.2-12.0); NRBC Flagged by Analyzer 0 % (0-5); Platelet Count 210 K/mm3 (150-450); RBC Distribution Width CV 13.0 % (11.6-14.6); RBC Distribution Width SD 51.4 fl (35.1-43.9); Red Blood Count 3.77 M/mm3 (4.2-5.4); White Blood Count 6.9 K/mm3 (4.4-11.0)
--- NOTE | 2025-10-26 17:44 | ED.RN ---
patient S.o requesting patient have a straw so she can have a drink. RN informed S.O. she cannot have a drink at this time. S.O states not even water? RN states no, not even water. S.O rolls his eyes at RN and walks back to patients room.
--- NOTE | 2025-10-26 17:45 | ED.RN ---
Per Dr. Shrestha, we can change NIHSS to every 4 hours
[2025-10-26 17:59] LABS: Mucous, Urine 0 SEEN /hpf (<or=2+)
[2025-10-26 18:06] LABS: Prothrombin Time (Protime)PT. 13.7 SECONDS (11.7-14.9)
[2025-10-26 18:07] LABS: Partial Thromboplast Time 29.8 Seconds (24.1-36.2)
[2025-10-26 18:08] LABS: Anion Gap 13 (5-15); BUN 30 mg/dL (4-19); BUN/Creat Ratio 27.8 RATIO (10-20); Calcium,Total 9.8 mg/dL (7.6-11.0); Carbon Dioxide 21.2 mmol/L (21.0-32.0); Chloride 107 mmol/L (98-108); Estimated Creatinine Clearance 51.95 ml/min (50-250); Free T3 2.6 pg/mL (2.18-3.98); Glucose 146 mg/dL (70-99); Potassium 4.2 mmol/L (3.3-5.1); Troponin T High Sensitivity 26 ng/L (<=14)
[2025-10-26 18:34] LABS: Color, Urine Straw (Yellow); Glucose, Dipstick Normal (Normal); Ketone-Dipstick Negative (Negative); Leukocyte Esterase-Dipstick 100 /ul (Negative); Nitrite-Dipstick Positive (Negative); Occult Blood-Urine 10 /ul (Negative); Protein-Dipstick 15 mg/dl (Negative); Specific Gravity, Urine 1.010 (1.002-1.030); Urine Bilirubin Dipstick Negative (Negative)
[2025-10-26 19:32] LABS: Red Blood Cells-Urine 0-5 SEEN /hpf (0-5); Squamous Epithelial Cells - UA 0-5 SEEN /hpf (5-10)
[2025-10-26 20:22] LABS: Troponin T High Sens 2 HR 24 ng/L (<=14)
--- NOTE | 2025-10-26 21:13 | ED.RN ---
PT. INFORMED THIS NURSE THAT THEY WOULD LIKE TO DISCUSS LEAVING AGAINST MEDICAL ADVICE WITH THEIR FRIEND AT THIS TIME.
--- NOTE | 2025-10-26 21:59 | PCM.HP.STD ---
HPI - General General Date of Admission: 10/26/25 Date of Service: 10/26/25 Chief Complaint: Intermittent bilateral leg weakness and slurred speech HPI Narrative IMAN HICKS, is a 75 F who presents came to ED with bilateral leg weakness and slurred speech. She states it is a chronic problem that started after mechanical fall about 1-1/2 years ago when she had a left subtrochanteric proximal femur fracture and was operated on February 2024. Since then she has intermittent and fluctuating leg weakness bilateral right more than left but this is not consistent. Patient is not good historian and does not give consistent chronological order of her symptoms and progression. History of recurrent fall and had 2 falls today did not hit her head or LOC. By the time she came to the ER her weakness improved as per the EMS. She does not have lateralizing signs symptoms, typical of for stroke She also said she has chronic bilateral buttock numbness worse than bilateral thigh numbness and follows neurologist Dr. Zuluaga. She also has chronic slurred speech and not able to make correct sentences, pronounce or verbalize and neurologist referred to speech therapist. She does not have problem and understanding speech. In ED patient was seen by stroke neurologist and suggested MRI spine and low suspicion for stroke Social history: He smokes half to 1 pack cigarette since teenage intermittently. Drinks wine about 3 times a week. [facility] Medical History Hx of fracture of left hip Wears glasses Post-menopausal Anxiety Thyroid disease Diabetes Gastric reflux Former smoker Shortness of breath on exertion Chronic cough History of pain when walking History of edema Hx of fracture of femur Peripheral neuropathy Back pain due to injury Syncope History of stress test Kidney stones Stroke/cerebrovascular accident Diabetes Primary localized osteoarthritis of hips, bilateral Spinal stenosis of lumbar region at multiple levels Spinal stenosis in cervical region DDD (degenerative disc disease), lumbar Low back pain Lichen sclerosus Atrophic vaginitis HSV (herpes simplex virus) infection Stress incontinence Rheumatoid arthritis Easy bruising Leg cramps Left renal stone Alcohol use Smoker Hypertension Goiter 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 Diabetes 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 TIA (transient ischemic attack) Vision problems Hypothyroidism GERD (gastroesophageal reflux disease) H/O: pneumonia Neuropathy Goiter Carpal tunnel syndrome Cataracts, bilateral Recurrent UTI Back problem Arthritis Anxiety and depression Seasonal allergies Type 2 diabetes mellitus Home Medications ?Medication ?Instructions ?Recorded ?Last Taken ?Type bupropion HCl 300 mg 24 hr tablet, 300 mg PO QAM depression 11/20/18 07/15/24 History extended release (Wellbutrin XL) multivitamin with minerals-folic 1 tab PO DAILY vitamin 11/20/18 Unknown History acid 0.4 mg tablet (Adult One Daily Multivitamin) fluticasone propionate 50 1 spray NASAL DAILY PRN allergies 06/22/20 Unknown History mcg/actuation nasal spray,suspension metformin 500 mg tablet 1,000 mg PO DAILY diabetes 08/04/20 07/15/24 History levothyroxine 175 mcg tablet 150 mcg PO DAILY hypothyroid 01/30/22 07/16/24 History (Synthroid) metformin 500 mg tablet 500 mg PO QHS diabetes 06/28/22 07/15/24 History acetaminophen 500 mg tablet 1,000 mg (2 x 500 mg) PO Q8 pain 03/11/24 Unknown Rx #0 tabs sennosides 8.6 mg-docusate sodium 2 tab PO BID #0 tabs 03/26/24 Unknown Rx 50 mg tablet (Stool Softener-Stimulant Laxative) Caffeine [No Doz] 300 mg PO DINNER PRN FATIQUE 07/14/24 Unknown History Caffeine [No Doz] 300 mg PO LUNCH PRN FATIQUE 07/14/24 07/15/24 History gabapentin 100 mg capsule 200 mg PO TIDCM 07/14/24 07/16/24 History omeprazole 40 mg capsule,delayed 40 mg PO DAILY 07/14/24 Unknown History release bupropion HCl 150 mg 24 hr tablet, 150 mg PO DAILY 10/26/25 Unknown History extended release clobetasol 0.05 % topical ointment topical 10/26/25 Unknown History lisinopril 5 mg tablet 5 mg PO DAILY 10/26/25 Unknown History Allergy/AdvReac Type Severity Reaction Status Date / Time No Known Allergies Allergy Verified 10/26/25 17:12 Family History Mother Cancer Father Diabetes Heart disease Sister Diabetes Surgical History Hx of esophagogastroduodenoscopy Hx of cystoscopy History of colonoscopy History of foot surgery History of lithotripsy History of carpal tunnel surgery Social History household members: none housing: house number of children: 0 current occupational status: retired Smoking Status: Current every day smoker tobacco type: cigarettes alcohol intake: current alcohol intake frequency: holidays/special occasions only substance use type: does not use seatbelt use: always do you feel safe at home: Yes additional social history: ROS ROS Narrative Constitutional: Reports chronic fatigue and weakness. No fever. HEENT: Reports systems reviewed and no addt'l complaints, except as documented Respiratory/Chest: No acute shortness of breath or respiratory distress or wheezing. CVS: No chest pain. Gastrointestinal: Denies coffee ground emesis, hematemesis or vomiting Genitourinary: Denies burning urination or new urinary tract symptoms. Chronic urinary incontinent after left hip surgery Musculoskeletal: Had left hip surgery in 2023. Sometimes uses walker. Neurologic: Denies seizure-like symptoms. Chronic peripheral neuropathy skin: No ulcer. No rash Endocrinology: Reports systems reviewed and no addt'l complaints, except as documented Hematologic/Lymphatic: Reports systems reviewed and no addt'l complaints, except as documented Rest 14 ROS are negative except as mentioned in HPI Vital Signs Vital Signs Vital Signs: 10/26/25 17:05 10/26/25 17:06 10/26/25 17:10 Temperature 97.8 F Temperature Source Temporal Pulse Rate 91 99 Respiratory Rate 17 16 Blood Pressure 155/86 H 160/112 H Blood Pressure Mean 109 128 Pulse Ox 95 97 Oxygen Delivery Method 10/26/25 17:11 10/26/25 17:26 10/26/25 17:35 Temperature Temperature Source Pulse Rate 89 92 Respiratory Rate 16 14 Blood Pressure 155/86 H 149/87 H Blood Pressure Mean 109 107 Pulse Ox 97 96 93 Oxygen Delivery Method Room Air Room Air 10/26/25 17:36 10/26/25 18:04 10/26/25 18:30 Temperature Temperature Source Pulse Rate 92 84 Respiratory Rate 13 18 Blood Pressure 149/87 H 137/85 H 134/83 H Blood Pressure Mean 107 102 98 Pulse Ox 95 95 Oxygen Delivery Method Room Air 10/26/25 18:45 10/26/25 18:46 10/26/25 19:00 Temperature Temperature Source Pulse Rate 80 79 78 Respiratory Rate 17 15 12 Blood Pressure 134/79 H 134/79 H 125/68 H Blood Pressure Mean 96 97 87 Pulse Ox 95 96 98 Oxygen Delivery Method 10/26/25 19:00 10/26/25 19:15 10/26/25 19:30 Temperature Temperature Source Pulse Rate 77 76 83 Respiratory Rate 11 L 11 L 15 Blood Pressure 125/68 H 135/80 H 154/87 H Blood Pressure Mean 85 97 107 Pulse Ox 97 99 Oxygen Delivery Method 10/26/25 19:40 10/26/25 19:45 10/26/25 20:00 Temperature 98.1 F Temperature Source Oral Pulse Rate 77 76 75 Respiratory Rate 18 16 15 Blood Pressure 154/87 H 136/83 H 140/82 H Blood Pressure Mean 109 97 100 Pulse Ox 98 97 98 Oxygen Delivery Method Room Air Room Air 10/26/25 20:15 10/26/25 20:30 10/26/25 20:45 Temperature Temperature Source Pulse Rate 77 76 78 Respiratory Rate 14 13 12 Blood Pressure 134/82 H 144/79 H 148/83 H Blood Pressure Mean 97 97 103 Pulse Ox 98 100 Oxygen Delivery Method Room Air Room Air 10/26/25 21:00 Temperature Temperature Source Pulse Rate 78 Respiratory Rate 14 Blood Pressure 145/80 H Blood Pressure Mean 101 Pulse Ox 98 Oxygen Delivery Method Room Air Weight Weight: 191 lb 12.8 oz Body Mass Index (BMI) 30.0 Physical Exam Narrative General: Alert, Oriented x3, Cooperative HEENT: Atraumatic, PERRLA, EOMI, Normocephalic. Oral: No Gingival or Mucosal Lesions/ Ulcerations Neck: Supple, No JVD, Negative Carotid Bruits Chest wall/Lungs: Air entry diminished in bilateral lung bases. No crepitation/rhonchi Cardiovascular: Regular rate and rhythm, Normal S1,S2, No M/G/R Abdomen: Bowel Sounds Present, Soft, Non Tender, Non-Distended : No dysuria. No renal angle tenderness. No suprapubic tenderness. Extremities: No edema, Capillary Refill Less than 3 Seconds Skin: No rashes, No breakdown Musculoskeletal: No Tenderness to Palpation of Joints or Extremities. Muscle strength 4+/5 at bilateral knees and hip joints. No acute decrease in sensation/loss of sensation Neurological: Cranial nerves II-XII grossly intact, DTR 2+/4. No acute focal neurological deficit. Psych/Mental Status: Flat affect. Forgetful Results Lab / Micro Data 10/26/25 16:57 10/26/25 16:57 Labs: Laboratory Results - last 24 hr 10/26/25 16:57: WBC 6.9, RBC 3.77 L, Hgb 13.4, Hct 40.1, MCV 106.4 H, MCH 35.5 H, MCHC 33.4, RDW Std Deviation 51.4 H, RDW [place]eff [place] 13.0, Plt Count 210, MPV 9.6, Immature Gran % (Auto) 0.400, Neut % (Auto) 75.1 H, Lymph % (Auto) 15.3 L, [place] % (Auto) 6.6, Eos % (Auto) 2.0, Baso % (Auto) 0.6, Absolute Neuts (auto) 5.1, Absolute Lymphs (auto) 1.05, Nucleated RBC % 0, PT 13.7, INR 1.0, APTT 29.8, Sodium 142, Potassium 4.2, Chloride 107, Carbon Dioxide 21.2, Anion Gap 13, BUN 30 H, Creatinine 1.06, Estim Creat Clear Calc 51.95, Est GFR (MDRD) Non-Af 55 L, BUN/Creatinine Ratio 27.8 H, Glucose 146 H, Calcium 9.8, Troponin T High Sens 26 H, TSH 1.560, Free T4 1.70 H, Free T3 pg/dL 2.6 10/26/25 17:55: Urine Color Straw, Urine Clarity Cloudy, Urine pH 6.0, Ur Specific [place] 1.010, Urine Protein 15 H, Urine Glucose (UA) Normal, Urine Ketones Negative, Urine Occult Blood 10 H, Urine Nitrite Positive H, Urine Bilirubin Negative, Urine Urobilinogen Normal, Ur Leukocyte Esterase 100 H, Urine RBC 0-5 SEEN, Urine WBC 10-25 SEEN, Ur Squamous Epith Cells 0-5 SEEN, Urine Bacteria 3+, Urine Mucus 0 SEEN 10/26/25 19:04: Troponin T Hi Sens 2 Hr 24 H Imaging Radiology Impression Brain CT 10/26/25 17:06 IMPRESSION: No acute intracranial abnormality. No large vessel arterial occlusion or hemodynamically significant stenosis. Stroke Alert: The critical findings in above were relayed directly by me via telephone to Toni Shrestha on 10/26/2025 at 4:31 pm PSYCH NURSE with readback verification. Reading Location: [facility] Head/Neck CTA 10/26/25 17:07 IMPRESSION: No acute intracranial abnormality. No large vessel arterial occlusion or hemodynamically significant stenosis. Stroke Alert: The critical findings in above were relayed directly by me via telephone to ShresthaToni on 10/26/2025 at 4:31 pm PSYCH NURSE with readback verification. Reading Location: [facility] Assessment & Plan Assessment/Plan (1) Slurred speech: (2) Weakness: (3) Multiple falls: PLAN: Plan This is a 75-year-old female being admitted for evaluation of intermittent bilateral weakness and slurred speech 1. Intermittent bilateral lower extremity weakness and chronic buttock numbness suggestive of peripheral neuropathy with multiple fall: Patient is being admitted in PCU. Low suspicion of stroke after clinical evaluation. MRI thoracic and lumbar spine ordered. Telestroke neurologist note reviewed. PT, OT, speech therapy/swallow evaluation and management, nursing NIH stroke scale, BP and glucose monitoring and control as per stroke protocol. A1c fasting lipid profile tomorrow AM. MRI brain and 2D echo ordered. Left ankle dorsiflexion seems weak possible foot drop seems chronic after February 2024 mechanical fall 2. Chronic slurred speech/stuttering, mild amnesia: As per outpatient neurologist, Dr. Zuluaga recommended speech therapy. Patient also on bupropion, gabapentin and multiple medications but not on opioids 3. Chronic Peripheral Neuropathy; with poor balance and recurrent fall: MCV elevated similar to previous hospitalization in February 2024. Folic and B12 ordered 4. Essential Hypertension - Resume home regimen plus give prn IV Hydralazine for systolic blood pressure > 160 mmHg. 5. Hypothyroidism; with a history of Juani's thyroiditis and diffuse thyroid goiter: TSH normal 1.56 free T4 elevated 1.70. Free T3 normal. 6. DM-2; glucose 146. A1c ordered for tomorrow AM. Accu-Chek before meals and at bedtime with Humalog sliding scale coverage and hypoglycemia protocol. 7. Chronic smoker and chronic alcohol use:Serum alcohol GGT and liver chemistry ordered as patient drinks wine about 3 times a week. 8. Chronic RA: No acute issues 9. Anxiety and depression: Patient on bupropion. 10. Other comorbidities include GERD and osteoarthritis: On PPI continued DVT prophylaxis, moderate risk: Lovenox 40 mg subcu daily ordered. Living will/advanced directive/end of life care: Patient does not have living will or advanced directive. She came with her significant other but he is not the power of deputy prosecuting attorney for health. The patient does not have designated power of deputy prosecuting attorney for healthcare after discussion of benefits/risks procedures involved with full code, DNR CC arrest and DNR CC, the patient opted for DNR CC arrest with no intubation Patient doesn't want artificial life support including intubation, tube feed, ventilator and/chest compression, central venous catheter, vasopressor and DC shock if needed Total time spent in [id number] encounter in discussion of advanced directive 17 minutes. Laboratory Results 10/26/25 16:57: WBC 6.9, RBC 3.77 L, Hgb 13.4, Hct 40.1, MCV 106.4 H, MCH 35.5 H, MCHC 33.4, RDW Std Deviation 51.4 H, RDW [place]eff [place] 13.0, Plt Count 210, MPV 9.6, Immature Gran % (Auto) 0.400, Neut % (Auto) 75.1 H, Lymph % (Auto) 15.3 L, [place] % (Auto) 6.6, Eos % (Auto) 2.0, Baso % (Auto) 0.6, Absolute Neuts (auto) 5.1, Absolute Lymphs (auto) 1.05, Nucleated RBC % 0, PT 13.7, INR 1.0, APTT 29.8, Sodium 142, Potassium 4.2, Chloride 107, Carbon Dioxide 21.2, Anion Gap 13, BUN 30 H, Creatinine 1.06, Estim Creat Clear Calc 51.95, Est GFR (MDRD) Non-Af 55 L, BUN/Creatinine Ratio 27.8 H, Glucose 146 H, Calcium 9.8, Troponin T High Sens 26 H, TSH 1.560, Free T4 1.70 H, Free T3 pg/dL 2.6 10/26/25 17:55: Urine Color Straw, Urine Clarity Cloudy, Urine pH 6.0, Ur Specific [place] 1.010, Urine Protein 15 H, Urine Glucose (UA) Normal, Urine Ketones Negative, Urine Occult Blood 10 H, Urine Nitrite Positive H, Urine Bilirubin Negative, Urine Urobilinogen Normal, Ur Leukocyte Esterase 100 H, Urine RBC 0-5 SEEN, Urine WBC 10-25 SEEN, Ur Squamous Epith Cells 0-5 SEEN, Urine Bacteria 3+, Urine Mucus 0 SEEN 10/26/25 19:04: Troponin T Hi Sens 2 Hr 24 H Clinical Impression(s) from Imaging Studies Brain CT 10/26/25 17:06 IMPRESSION: No acute intracranial abnormality. No large vessel arterial occlusion or hemodynamically significant stenosis. Stroke Alert: The critical findings in above were relayed directly by me via telephone to Toni Shrestha on 10/26/2025 at 4:31 pm PSYCH NURSE with readback verification. Reading Location: [id number] Head/Neck CTA 10/26/25 17:07 IMPRESSION: No acute intracranial abnormality. No large vessel arterial occlusion or hemodynamically significant stenosis. Stroke Alert: The critical findings in above were relayed directly by me via telephone to Toni Shrestha on 10/26/2025 at 4:31 pm PSYCH NURSE with readback verification. Reading Location: [id number] Charges/Coding Visit Charges Inpatient E&M: 88699 Init Hosp L3 Procedures Hospitalists Procedures: 34444 Advncd Care Plan 30 Min
[2025-10-26 22:26] LABS: Troponin T High Sens 4 HR 29 ng/L (<=14)
--- OUTSIDE RECORDS SUMMARY | 2025-10-26 22:45 | XMS RPT_ITS | CCD ---
Author Organization [facility] Care Team Providers Care 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 Name Role Phone Dwayne INSPECTOR AGRICULTURAL COMMODITIES, Tessa L Unavailable Unavailable Dwayne INSPECTOR AGRICULTURAL COMMODITIES, Tessa L Unavailable Unavailable Dwayne INSPECTOR AGRICULTURAL COMMODITIES, Tessa L Unavailable Unavailable Summer Worrell DO Primary Care Provider Dr. Summer Worrell Primary Care Provider [phone] Dr. Summer Worrell Referring Provider Shantel SENIOR PATROL AGENT, SENIOR PATROL AGENT-C Dimple Attending Provider [phone] Dr. Summer Worrell Primary Care Provider [phone] Dr. Summer Worrell Referring Provider LILLIE Avendano Attending Provider [phone]) Shantel SENIOR PATROL AGENT, SENIOR PATROL AGENT-C Dimple Attending Provider [phone] Dr. Yoel Dalal Attending Provider [phone] Dr. Summer Worrell Primary Care Provider [phone] Dr. Summer Worrell Referring Provider LILLIE Avendano Attending Provider [phone] Shantel CASTELLANOS, SENIOR PATROL AGENT-C Dimple Attending Provider [phone] Dr. Yoel Dalal Attending Provider 1(330) Dr. Saturnino Jeter Attending Provider [phone] Dr. Rizwan Tabor Attending Provider [phone] Dr. Summer Worrell Primary Care Provider [phone]) Dr. Summer Worrell Referring Provider [phone] Dr. Summer Worrell Primary Care Provider [phone] Dr. Summer Worrell Referring Provider Dr. Summer Worrell Primary Care Provider [phone] Dr. Summer Worrell Referring Provider Dr. Saturnino Jeter Attending Provider Dr. Rizwan Tabor Attending Provider Dr. Summer Worrell Primary Care Provider [phone] Dr. Summer Worrell Referring Provider Dr. Saturnino Jeter Attending Provider Dr. Rizwan Tabor Attending Provider MD Goran Zafar Emergency Provider Dr. Arya Sapp Admit Provider Unavailabl e Dr. Arya Sapp Other Provider Unavailabl e Dr. Alireza Lang Other Provider Dr. Yoel Bass Attending Provider Dr. Yoel Bass Other Provider Dr. Summer Worrell Primary Care Provider Dr. Moise Glez Chi Admit Provider Dr. Moise Glez Chi Other Provider Dr. Jared Wells Attending Provider Dr. Summer Worrell Referring Provider FriendDr. Coleman Other Provider Dr. Moise Glez Chi Referring Provider Summer Worrell DO Primary Care Provider Alireza Roach MD Unavailable Alireza Roach MD Unavailable SUMMER WORRELL A Primary Care Unavailable MERCADO, DARREN Referring Unavailable ANAID, SUMMER A Primary Care Unavailable MERCADO, DARREN Referring Unavailable Summer Worrell Primary Care Unavailable Shantel SENIOR PATROL AGENT, Dimple Attending Unavailable Summer Worrell Referring Unavailable Anaid, Summer Referring Unavailable Anaid, Summer Primary Care Unavailable Anaid, Summer Attending Unavailable Anaid, Summer Primary Care Unavailable Aniad, Summer Attending Unavailable Anaid, Summer Referring Unavailable Anaid, Summer Primary Care Unavailable Anaid, Summer Attending Unavailable Anaid, Summer Primary Care Unavailable Anaid, Summer Attending Unavailable Anaid, Summer Referring Unavailable PASTORA MURPHY Attending Unavailable ANAID, SUMMER A Primary Care Unavailable ANAID, SUMMER A Primary Care Unavailable FELIX WU Attending Unavailable SELF Referring Unavailable ANAID, SUMMER A Primary Care Unavailable ERDENISHA Attending Unavailable ANAID, SUMMER A Primary Care Unavailable DENISHA STEINER Referring Unavailable NAAID, SUMMER A Primary Care Unavailable DENISHA STEINER Attending Unavailable ANAID, SUMMER A Primary Care Unavailable LAKEISHA LEMONS Attending Unavailable ANAID, SUMMER A Primary Care Unavailable MERCADO, DARREN Attending Unavailable DENISHA STEINER Referring Unavailable ANAID, SUMMER A Primary Care Unavailable PASTORA MATA Attending Unavailable MERCADO, DARREN Referring Unavailable ANAID, SUMMER A Primary Care Unavailable MERCADO, DARREN Referring Unavailable ANAID, SUMMER A Primary Care Unavailable PASTORA MURPHY Attending Unavailable SELF Referring Unavailable ANAID, SUMMER A Primary Care Unavailable Allergies Allergy Classification Reported Allergen(s) Allergy Type Date of Onset Reaction(s) Facility (20 sources) Seasonal allergy; Translations: [SEASONAL ALLERGIES] Allergy to substance 8 Other: See Comments [facility] Work Phone: Medications Current Medications Medication Drug Class(es) Dates Sig (Normalized) Sig (Original) acetaminophen 500 mg oral tablet (4 sources) Start: 03-11-2024 take 1000 mg by mouth every eight hours Acetaminophen Active 1000 MG PO EVERY 8 HOURS 0 March 11, 2024 12:00am ascorbic acid 500 mg oral tablet (3 sources) Vitamin C Start: 03-26-2024 Ascorbic Acid (Vitamin C) Active 500 MG PO 1000 0 March 26, 2024 12:00am Start: 03-19-2024 End: 03-26-2024 take 1 tablet by mouth once daily Ascorbic Acid (Vitamin C) (C Complex) 1,000 mg tablet extended release Discontinued 1000 MG PO DAILY March 19, 2024 12:00am March 26, 2024 2:21pm aspirin 81 mg delayed release oral tablet (1 source) Platelet Aggregation Inhibitor, Nonsteroidal Anti-inflammatory Drug Start: 08-20-2017 End: 03-27-2023 take 1 tablet by mouth once daily aspirin, enteric coated (ADULT LOW DOSE ASPIRIN) 81 mg EC tablet Take 1 tablet by mouth once daily. 0 08/20/2017 03/27/2023 Discontinued Comment on above: Take 1 tablet by dank once daily. 24 hr buPROPion hydrochloride 150 mg extended release oral tablet (20 sources) Aminoketone Start: 10-01-2018 take 1 tablet by mouth once daily buPROPion XL (WELLBUTRIN XL) 150 mg 24 hr tablet Take 150 mg by mouth once daily. 10/01/2018 Active Start: 08-17-2018 buPROPion XL ( WELLBUTRIN XL) 300 mg 24 hr tablet TAKE 1 TABLET EVERY DAY 90 tablet 1 08/17/2018 Active BUPROPION HCL ER (XL) 300 MG [id number] qd BUPROPION HCL [id number] Tessa Rice LPN Comment on above: TAKE 1 TABLET EVERY DAY caffeine 300 mg extended release oral capsule (2 sources) Central Nervous System Stimulant, Methylxanthine Start: take 300 mg by mouth at dinner Caffeine (No Doz) Active 300 mg PO WITH DINNER 0 March 26, 2024 12:00am calcium carbonate 500 mg chewable tablet (4 sources) Start: take 500 mg by mouth three times daily at mealtime Calcium Carbonate Active 500 MG PO 3 TIMES DAILY WITH MEALS March 11, 2024 12:00am cyclobenzaprine hydrochloride 5 mg oral tablet (4 sources) Muscle Relaxant Start: take 5 mg by mouth three times daily as needed Cyclobenzaprine Active 5 MG PO 3 TIMES DAILY NEEDED 0 March 11, 2024 12:00am docusate sodium 50 mg / sennosides, [facility] 8.6 mg oral tablet (5 sources) Start: End: take 2 tablets by mouth twice daily Sennosides-Docusate Sodium (Stool Softener-Stimulant Laxat) 8.6-50 mg Tablet Active 2 TABLET PO TWICE A DAY March 26, 2024 12:00am 0.4 ml enoxaparin sodium 100 mg/ml prefilled syringe (5 sources) Low Molecular Weight Heparin Start: End: Enoxaparin Active 40 MG SC DAILY March 26, 2024 12:00am ergocalciferol 1.25 mg oral capsule (4 sources) Provitamin D2 Compound Start: take 1 capsule by mouth every week Ergocalciferol (Vitamin D2) (Vitamin D2) 1,250 mcg (50,000 unit) Capsule Active 1250 MCG PO Q7D March 11, 2024 12:00am estradiol 0.1 mg/ml vaginal cream (20 sources) Estrogen Start: estradiol (ESTRACE) 0.01 % (0.1 mg/gram) vaginal cream Indications: Vaginal atrophy , Vulvar atrophy , Vulvar burning , Vaginal dryness Insert 1 gram of cream intravaginally at bedtime nightly for 2 weeks, and then twice weekly. Save a pea sized amount to apply externally. 42.5 g 2 03/17/2025 Active Start: 2023 End: 03-26-2024 Estradiol Discontinued 0 VAG INAL .COMPLEX 42.5 July 24, 2023 3:32pm March 26, 2024 2:21pm small amount as directed vaginal every other day X 4 weeks then twice a week; fluticasone propionate 0.05 mg/actuat metered dose nasal spray (20 sources) Corticosteroid Start: 06-22-2020 Fluticasone Propionate Active 1 SPRAY NASAL DAILY June 22, 2020 12:00am gabapentin 100 mg oral capsule (17 sources) Anti-epileptic Agent Start: 03-19-2024 End: 03-26-2024 take 100 mg by mouth three times daily at mealtime Gabapentin Active 100 MG PO 3 TIMES DAILY WITH MEALS March 26, 2024 12:00am gabapentin (NEUR ONTIN) 100 mg capsule Take 600 mg by mouth once daily. Active loratadine 10 mg oral capsule (20 sources) Start: 06-22-2020 take 10 mg by mouth once daily Loratadine Active 10 MG PO DAILY June 22, 2020 12:00am melatonin 10 mg sublingual tablet (3 sources) Start: 03-26-2024 take 10 mg by mouth at bedtime Melatonin Active 10 MG PO AT BEDTIME 0 March 26, 2024 12:00am Start: 03-19-2024 End: 03-26-2024 take 10 mg by mouth at bedtime Melatonin Discontinued 10 MG PO AT BEDTIME March 19, 2024 12:00am March 26, 2024 2:21pm memantine hydrochloride 5 mg oral tablet (14 sources) T-secywh-E-aspartate Receptor Antagonist take 1 tablet by mouth twice daily memantine (NAMENDA) 5 mg tablet Take 5 mg by mouth two times a day. Active metFORMIN hydrochloride 500 mg oral tablet (20 sources) Biguanide Start: take 500 mg by mouth at bedtime Metformin Active 500 MG PO AT BEDTIME June 28, 2022 12:00am Start: 06-22-2020 End: 08-04-2020 take 500 mg by mouth at bedtime Metformin Discontinued 500 MG PO AT BEDTIME June 22, 2020 12:00am August 04, 2020 9:44am Start: 11-23-2018 End: 08-04-2020 take 1000 mg by mouth once daily Metformin Active 1000 MG PO DAILY August 04, 2020 9:43am Start: 11-20-2018 End: 11-23-2018 take 500 mg by mouth twice daily Metformin Discontinued 500 MG PO TWICE A DAY November 20, 2018 1:00am November 23, 2018 11:03am Start: 08-25-2018 take 1 tablet by dank th three times daily metFORMIN (GLUCOPHAGE) 500 mg tablet Take 1 tablet by mouth three times daily. 180 tablet 1 08/25/2018 Active METFORMIN HCL 50 0 MG TABS tid METFORMIN HCL [id number] Tessa Rice LPN Comment on above: Take 1 tablet by dank th three times daily. metoprolol tartrate 25 mg oral tablet (3 sources) beta-Adrenergic Joann Start: 03-26-2024 take 12.5 mg by mouth twice daily Metoprolol Tartrate Active 12.5 MG PO TWICE A DAY 0 March 26, 2024 12:00am Start: 03-19-2024 End: 03-26-2024 Metoprolol Tartrate (Lopress or) 50 mg tablet Discontinued 25 MG PO TWICE A DAY March 19, 2024 12:00am March 26, 2024 2:21pm Multivit With Min-Folic Acid (Adult One Daily Multivitamin) 0.4 mg tablet (20 sources) Start: 11-20-2018 take 1 tablet by mouth once daily Multivit With Min-Folic Acid (Adult One Daily Multivitamin) 0.4 mg tablet Active 1 TABLET PO DAILY November 20, 2018 12:00am Start: 11-20-2018 take 1 tablet by dank th once daily Multivit With Min-Folic Acid (Adult One Daily Multivitamin) 0.4 mg tablet Active 1 TABLET PO DAILY November 20, 2018 1:00am mupirocin 0.02 mg/mg topical ointment (1 source) RNA Synthetase Inhibitor Antibacterial Start: 11-30-2017 End: 03-27-2023 mupirocin (BACTROBAN) 2 % ointment Indications: Laceration of right thumb with foreign body without damage to nail, initial encounter Apply 1 application to affected area three times daily. Location: thumb 30 g 0 11/30/2017 03/27/2023 Discontinued Comment on above: Apply 1 application to affected area three times daily. Location: thumb naproxen 500 mg oral tablet (1 source) Nonsteroidal Anti-inflammatory Drug Start: 04-15-2018 End: 03-27-2023 take 1 tablet by mouth every twelve hours as needed naproxen (NAPROSYN) 500 mg tablet Take 1 tablet by mouth twice daily as needed (for pain/inflammation) . Take with food. 60 tablet 1 04/15/2018 03/27/2023 Discontinued Comment on above: Take 1 tablet by dank twice daily as needed (for pain/inflammation). Take with food. oxyCODONE hydrochloride 5 mg oral tablet (5 sources) Opioid Agonist Start: 03-26-2024 take 10 mg by mouth every four hours as needed Oxycodone Active 10 MG PO EVERY 4 HOURS NEEDED 36 March 26, 2024 Start: 03-11-2024 End: 03-26-2024 take 10 mg by mouth every six hours Oxycodone Discontinued 10 MG PO EVERY 6 HOURS 12 March 11, 2024 March 26, 2024 2:23pm pantoprazole 40 mg delayed release oral tablet (1 source) Proton Pump Inhibitor Start: 03-26-2024 take 40 mg by mouth twice daily Pantoprazole Active 40 MG PO TWICE A DAY 0 March 26, 2024 12:00am polysaccharide iron complex 150 mg oral capsule (3 sources) Start: 03-19-2024 End: 03-26-2024 Polysaccharide Iron Complex (Ferrex 150) 150 mg iron Capsule Active 150 MG PO DAILY March 26, 2024 12:00am Saliva Substitute Combo No.9 (Biotene Dry Mouth Oral Rinse) Mouthwash (1 source) Start: 03-26-2024 take 1 mL by mouth five times daily Saliva Substitute Combo No.9 (Biotene Dry Mouth Oral Rinse) Mouthwash Active 15 ML MUCOUS MEM 5 TIMES DAILY March 26, 2024 12:00am tamsulosin hydrochloride 0.4 mg oral capsule (3 sources) alpha-Adrenergic Joann Start: 03-19-2024 End: 03-26-2024 take 0.4 mg by mouth once daily Tamsulosin Active 0.4 MG PO DAILY@1730 0 March 26, 2024 12:00am levothyroxine sodium 0.175 mg oral tablet (20 sources) l-Thyroxine Start: 01-30-2022 Levothyroxine (Synthroid) 175 mcg tablet Active 150 MCG PO DAILY January 30, 2022 3:55pm Start: 11-20-2018 End: 11-23-2018 take 200 ug by mouth once daily Levothyroxine Discontinued 200 MCG PO .COMPLEX November 20, 2018 1:00am November 23, 2018 11:03am 200 mcg PO daily for 5 days ; Start: 02-20-2018 End: 01-30-2022 take 1 tablet by mouth once SYNTHROID 175 mcg tablet T osbaldo 1 tablet by mouth every Friday and Friday. 24 tablet 1 02/20/2018 Active SYNTHROID 200 MC G TABS 5 days q wk LEVOTHYROXINE SODIUM [id number] Tessa Rice LPN SYNTHROID 175 MC G TABS 2 days q wk LEVOTHYROXINE SODIUM [id number] Tessa Rice LPN SYNTHROID 175 MC G TABS 2 days q wk LEVOTHYROXINE SODIUM [id number] Tessa Rice LPN SYNTHROID 200 MC G TABS 5 days q wk LEVOTHYROXINE SODIUM [id number] Tessa Rice LPN Comment on above: Take 1 tablet by dank th every Friday and Friday. valACYclovir 500 mg oral tablet (20 sources) Herpesvirus Nucleoside Analog DNA Polymerase Inhibitor, Herpes Simplex Virus Nucleoside Analog DNA Polymerase Inhibitor, Herpes Zoster Virus Nucleoside Analog DNA Polymerase Inhibitor Start: take 500 mg by mouth twice daily Valacyclovir Active 500 MG PO TWICE A DAY March 07, 2024 12:00am Start: 06-28-2022 End: 07-24-2023 take 1 tablet by mouth twice daily Valacyclovir (Valtrex) 500 mg Tablet Discontinued 500 MG PO TWICE A DAY June 28, 2022 12:00am July 24, 2023 3:01pm Start: 06-17-2018 valACYclovir ( VALTREX) 500 mg tablet TAKE 1 TABLET EVERY DAY 7 tablet 3 06/17/2018 Active Comment on above: TAKE 1 TABLET EVERY DAY Completed/Discontinued Medications Medication Drug Class(es) Dates Sig (Normalized) Sig (Original) acetaminophen 300 mg / codeine phosphate 30 mg oral tablet (20 sources) Opioid Agonist Start: 07-21-2020 End: 10-13-2020 take 1 tablet by mouth every six hours as needed Acetaminophen-Code ine Discontinued 1 - 2 TABLET PO EVERY 6 HOURS NEEDED July 21, 2020 12:00am October 13, 2020 12:05pm acetaminophen 325 mg / oxyCODONE hydrochloride 5 mg oral tablet (19 sources) Opioid Agonist Start: 07-04-2022 End: 2023 take 1 tablet by mouth every eight hours Oxycodone-Acetamin ophen (Percocet) 5-325 mg tablet Discontinued 1 TABLET PO Q8H 10 July 04, 2022 2023 12:14pm calcium (3 sources) Phosphate Binder, Calcium CALCIUM CAPS qd CALCIUM CAPS [id number] Tessa Rice LPN cholecalciferol 0.025 mg oral capsule (3 sources) Vitamin D End: 07-15-2023 take 1 capsule by mouth once daily Cholecalciferol, Vitamin D3, 25 mcg (1,000 unit) cap Take 1,000 Units by mouth once daily. 0 07/15/2023 Discontinued Comment on above: Take 1,000 Units by mouth once daily. donepezil hydrochloride 5 mg oral tablet (10 sources) Start: 02-08-2025 End: 08-08-2025 take 1 tablet by mouth once daily at bedtime donepezil (ARICEPT) 5 mg tablet Take 1 tablet by mouth daily at bedtime. 30 tablet 2 02/08/2025 08/08/2025 Discontinued (Course of therapy completed) estrogens, conjugated ([facility]) 0.625 mg/ml vaginal cream (20 sources) Estrogen Start: 09-01-2020 End: 09-01-2020 Conjugated Estrogens (Premarin) 0.625 mg/gram cream Discontinued 0.625 MG VAGINAL TWICE A WEEK September 01, 2020 12:00am September 01, 2020 4:04pm off 5 days; repeat cycle fluconazole 150 mg oral tablet (2 sources) Azole Antifungal Start: 03-28-2023 End: 07-15-2023 fluconazole (DIFLUCAN) 150 mg tablet Take 1 tablet today, then a 2nd tablet in 72 hours, and 3rd tablet in another 72 hours. 3 tablet 0 03/28/2023 07/15/2023 Discontinued (Other) Comment on above: Take 1 tablet today, then a 2nd tablet in 72 hours, and 3rd tablet in another 72 hours. lisinopril 5 mg oral tablet (20 sources) Angiotensin Converting Enzyme Inhibitor Start: 11-23-2018 take 5 mg by mouth at bedtime Lisinopril Active 5 MG PO AT BEDTIME November 23, 2018 1:00am Start: 03-06-2018 End: 03-26-2024 take 1 tablet by mouth once daily lisinopril (ZESTRIL, PRINIVIL) 5 mg tablet Take 1 tablet by mouth once daily. 90 tablet 1 03/06/2018 Active Comment on above: Take 1 tablet by dank once daily. mometasone furoate 0.001 mg/mg topical ointment (20 sources) Corticosteroid Start: 09-03-2023 End: 03-26-2024 Mometasone Discontinued 1 APPLIC TOPICAL .COMPLEX September 03, 2023 12:00am March 26, 2024 2:23pm 1 applic topical small amount as directed and rub in daily X 1 week prn with symptoms Start: 01-30-2023 End: 07-24-2023 Mometasone Discontinued 1 AP PLIC TOPICAL .COMPLEX January 30, 2023 1:00am July 24, 2023 3:00pm 1 applic topical small amount as directed and rub in daily X 2 weeks then prn; MULTIPLE VITAMINS-MINERALS (2 sources) MULTIVITAMIN EVANS LT TABS qd MULTIPLE VITAMINS-MINERALS [id number] Tessa Rice INSPECTOR AGRICULTURAL COMMODITIES MULTIPLE VITAMINS-MINERALS (1 source) MULTIVITAMIN EVANS LT TABS qd MULTIPLE VITAMINS-MINERALS [id number] Tessa Rice INSPECTOR AGRICULT[employer] COMMODITIES nitrofurantoin, macrocrystals 25 mg / nitrofurantoin, monohydrate 75 mg oral capsule (17 sources) Nitrofuran Antibacterial Start: 2022 End: 2022 take 100 mg by mouth every twelve hours Nitrofurantoin Monohyd/M-Cryst Discontinued 100 MG PO EVERY 12 HOURS April 17, 2023 12:00am July 24, 2023 3:01pm omeprazole 40 mg delayed release oral capsule (20 sources) Proton Pump Inhibitor Start: 2017 End: 2019 take 20 mg by mouth once daily Omeprazole Discontinued 20 MG PO DAILY November 20, 2018 1:00am June 01, 2020 1:01pm Start: 08-09-2018 End: 03-26-2024 take 1 capsule by mouth once daily Omeprazole 40 mg capsule take 1 capsule by mouth once daily 90 capsule 1 08/09/2018 Active OMEPRAZOLE 20 MG TBEC qd OMEPRAZOLE [id number] Tessa Rice LPN Comment on above: take 1 capsule by mo [facility] once daily ospemifene 60 mg oral tablet (17 sources) Start: 02-14-20 End: 03-07-20 take 1 tablet by mouth once daily at mealtime Ospemifene (Osphena) 60 mg tablet Discontinued 60 MG PO DAILY February 13, 2023 12:00am March 07, 2024 8:01pm must administer with food, preferably a high-fat meal CHOLECALCIFEROL (3 sources) VITAMIN D 1000 U NIT TABS qd CHOLECALCIFEROL [id number] Tessa Rice LPN Problems Active Problems Problem Classification Problem Date Documented Da te Episodic/Chronic Acute cerebrovascular disease (5 sources) Cerebral infarction; Translations: [Cerebral infarction, unspecified] Onset: 5 01-04-2025 Chronic Allergic reactions (18 sources) Inflammatory dermatosis; Translations: [Dermatitis, unspecified] 01-30-2023 Episodic Anxiety disorders (18 sources) Mixed anxiety and depressive disorder; Translations: [Anxiety disorder, unspecified] Onset: 7 08-20-2017 Chronic Calculus of urinary tract (20 sources) Kidney stone; Translations: [Calculus of kidney] 11-17-2021 Episodic Chronic ulcer of skin (1 source) Pressure ulcer of unspecified ankle, unspecified stage; Translations: [Controlled type 2 diabetes mellitus with pressure ulcer of ankle (HCC)] Onset: 5 Chronic Diabetes mellitus with complications (18 sources) Neuropathy due to type 2 diabetes mellitus; Translations: [Type 2 diabetes mellitus with diabetic neuropathy, unspecified] Onset: 7 08-20-2017 Chronic Diabetes mellitus without complication (20 sources) Diabetes mellitus; Translations: [Type 2 diabetes mellitus without complications] Onset: 7 02-18-2018 Chronic E Codes: Fall (20 sources) Fall; Translations: [Unspecified fall, initial encounter] 02-04-2024 Episodic Esophageal disorders (20 sources) Gastroesophageal reflux disease without esophagitis; Translations: [Gastro-esophageal reflux disease without esophagitis] Onset: 7 08-20-2017 Chronic Essential hypertension (20 sources) Essential hypertension; Translations: [Essential (primary) hypertension] Onset: 8 03-04-2018 Chronic Fracture of neck of femur (hip) (15 sources) Closed fracture of hip; Translations: [Fracture of unspecified part of neck of left femur, initial encounter for closed fracture] 03-07-2024 Episodic Genitourinary symptoms and ill-defined conditions (19 sources) Genuine stress incontinence; Translations: [Stress incontinence (female) (male)] 07-04-2022 Chronic Malaise and fatigue (9 sources) Asthenia; Translations: [Other malaise] Onset: 5 03-11-2024 Episodic Menopausal disorders (20 sources) Atrophic vaginitis; Translations: [Postmenopausal atrophic vaginitis] 2023 Chronic Mood disorders (6 sources) Depressive disorder; Translations: [Depression] 03-11-2024 Chronic Nutritional deficiencies (18 sources) Vitamin D deficiency; Translations: [Vitamin D deficiency, unspecified] Onset: 7 08-21-2017 Chronic Occlusion or stenosis of precerebral arteries (18 sources) Bilateral stenosis of carotid arteries; Translations: [Occlusion and stenosis of bilateral carotid arteries] Onset: 7 09-10-2017 Chronic Osteoarthritis (17 sources) Osteoarthritis of bilateral hip joints; Translations: [Bilateral primary osteoarthritis of hip] 11-12-2023 Chronic Osteoporosis (1 source) Age-related osteoporosis without current pathological fracture; Translations: [Age-related osteoporosis without current pathological fracture] Onset: Chronic Other connective tissue disease (7 sources) Injury of musculoskeletal system; Translations: [Other bursitis, not elsewhere classified, unspecified site] 02-04-2024 Episodic Other connective tissue disease (5 sources) Recurrent falls ; Translations: [Repeated falls] 01-04-2025 Episodic Other connective tissue disease (2 sources) Weakness of hand; Translations: [Other symptoms and signs involving the musculoskeletal system] 05-03-2025 Episodic Other eye disorders (1 source) Ptosis of right upper eyelid; Translations: [Unspecified ptosis of right eyelid] 04-11-2025 Episodic Other female genital disorders (1 source) Vaginal irritation; Translations: [Other specified noninflammatory disorders of vagina] Episodic Other female genital disorders (16 sources) Vaginal discharge; Translations: [Other specified noninflammatory disorders of vagina] 07-24-2023 Episodic Other female genital disorders (7 sources) Other specified noninflammatory disorders of vagina; Translations: [Leukorrhea, not specified as infective] Onset: 5 07-24-2023 Episodic Other female genital disorders (2 sources) Vulval irritation; Translations: [Other specified noninflammatory disorders of vulva and perineum] 08-08-2025 Episodic Other female genital disorders (1 source) Atrophy of vulva; Translations: [Vulvar atrophy] Onset: 5 Episodic Other female genital disorders (1 source) Other specified conditions associated with female genital organs and menstrual cycle; Translations: [Vulvar burning] Onset: 5 Episodic Other female genital disorders (1 source) Other specified noninflammatory disorders of vulva and perineum; Translations: [Vulvar irritation] Onset: 5 Episodic Other fractures (17 sources) Closed fracture of one rib; Translations: [Fracture of one rib, left side, initial encounter for closed fracture] 04-25-2023 Episodic Other gastrointestinal disorders (20 sources) Constipation; Translations: [Constipation, unspecified] 11-17-2021 Episodic Other injuries and conditions due to external causes (1 source) History of fall; Translations: [History of falling] 04-11-2025 Episodic Other nervous system disorders (5 sources) Peripheral nerve disease ; Translations: [Polyneuropathy, unspecified] 03-08-2024 Chronic Other nervous system disorders (7 sources) Polyneuropathy, unspecified; Translations: [Unspecified hereditary and idiopathic peripheral neuropathy] Onset: 5 03-07-2024 Chronic Other nervous system disorders (2 sources) Normal pressure hydrocephalus; Translations: [(Idiopathic) normal pressure hydrocephalus] 02-08-2025 Chronic Other nervous system disorders (14 sources) Neuropathy; Translations: [Polyneuropathy, unspecified] Onset: 04-11-2025 Chronic Other nervous system disorders (2 sources) Abnormal gait; Translations: [Unsteadiness on feet] 07-15-2023 Episodic Other nervous system disorders (2 sources) Paresthesia; Translations: [Paresthesia of skin] 01-04-2025 Episodic Other nervous system disorders (4 sources) Multifactorial gait problem; Translations: [Other abnormalities of gait and mobility] 04-11-2025 Episodic Other nervous system disorders (2 sources) Burning sensation of vulva; Translations: [Other specified conditions associated with female genital organs and menstrual cycle] 08-08-2025 Episodic Other nervous system disorders (1 source) Unspecified abnormalities of gait and mobility; Translations: [Abnormality of gait and mobility] Onset: Episodic Other skin disorders (19 sources) Lichen sclerosus et atrophicus; Translations: [Lichen sclerosus et atrophicus] 09-03-2023 Chronic Other upper respiratory disease (18 sources) Seasonal allergic rhinitis; Translations: [Other seasonal allergic rhinitis] Onset: 7 08-21-2017 Chronic Other upper respiratory disease (3 sources) Allergic rhinitis; Translations: [Allergic rhinitis, unspecified] 03-11-2024 Chronic Other upper respiratory disease (3 sources) Allergic rhinitis, unspecified; Translations: [Allergic rhinitis, cause unspecified] 03-11-2024 Chronic Residual codes; unclassified (1 source) Amnesia; Translations: [Other amnesia] 02-08-2025 Episodic Residual codes; unclassified (1 source) Verbal memory - finding; Translations: [Other amnesia] 04-11-2025 Episodic Residual codes; unclassified (2 sources) Postmenopausal state; Translations: [Asymptomatic menopausal state] 08-08-2025 Episodic Residual codes; unclassified (2 sources) Other amnesia; Translations: [Memory loss] Onset: Episodic Spondylosis; intervertebral disc disorders; other back problems (20 sources) Degeneration of lumbar intervertebral disc; Translations: [Other intervertebral disc degeneration, lumbar region] Onset: 5 10-20-2023 Chronic Spondylosis; intervertebral disc disorders; other back problems (20 sources) Spinal stenosis of lumbar region; Translations: [Spinal stenosis, lumbar region without neurogenic claudication] Onset: 5 10-20-2023 Episodic Substance-related disorders (18 sources) Smoker; Translations: [Nicotine dependence, unspecified, uncomplicated] Onset: 7 08-20-2017 Chronic Superficial injury; contusion (7 sources) Injury of forearm; Translations: [Contusion of unspecified forearm, initial encounter] 02-04-2024 Episodic Thyroid disorders (20 sources) Hypothyroidism; Translations: [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] Onset: 7 07-24-2017 Chronic Unclassified (1 source) No current problems or disability 07-23-2017 Unclassified (1 source) Verbal memory - finding 04-11-2025 Urinary tract infections (17 sources) Urinary tract infectious disease; Translations: [Urinary tract infection, site not specified] 04-25-2023 Episodic Viral infection (18 sources) Herpes simplex; Translations: [Herpesviral infection of urogenital system, unspecified] Onset: 7 08-20-2017 Chronic Viral infection (18 sources) Herpes simplex; Translations: [Herpesviral infection, unspecified] 2023 Episodic Past or Other Problems Problem Classification Problem Date Documented Da te Episodic/Chronic Deficiency and other anemia (18 sources) Iron deficiency anemia; Translations: [Iron deficiency anemia, unspecified] Onset: 08-20-2017 08-20-2017 Episodic Other aftercare (18 sources) Drug therapy finding; Translations: [Other assisted (current) drug therapy] Onset: 02-18-2018 02-18-2018 Episodic Other bone disease and musculoskeletal deformities (18 sources) Senile osteopenia; Translations: [Other specified disorders of bone density and structure, unspecified site] Onset: 08-21-2017 08-21-2017 Episodic Other circulatory disease (18 sources) History of transient ischemic attack; Translations: [Personal history of transient ischemic attack (TIA), and cerebral infarction without residual deficits] Onset: 08-20-2017 08-20-2017 Episodic Other connective tissue disease (1 source) Repeated falls; Translations: [Frequent falls] Onset: 01-12-2025 Episodic Other eye disorders (1 source) Unspecified ptosis of right eyelid; Translations: [Unspecified ptosis of right eyelid] Onset: 04-11-2025 Episodic Other injuries and conditions due to external causes (1 source) History of falling; Translations: [History of falling] Onset: 04-11-2025 Episodic Other nervous system disorders (10 sources) Spastic dysarthria; Translations: [Dysarthria and anarthria] Onset: 05-03-2025 04-11-2025 Episodic Other nervous system disorders (2 sources) Dysarthria and anarthria; Translations: [Spastic dysarthria] Onset: 04-11-2025 Episodic Other nervous system disorders (1 source) Other abnormalities of gait and mobility; Translations: [Multifactorial gait disorder] Onset: 04-11-2025 Episodic Other screening for suspected conditions (not mental disorders or infectious disease) (1 source) Encounter for screening mammogram for malignant neoplasm of breast; Translations: [Encounter for screening mammogram for breast cancer] Onset: 03-17-2025 Episodic Poisoning by nonmedicinal substances (14 sources) Toxic effect of corrosive alkalis and alkali-like substances, accidental (unintentional), initial encounter; Translations: [Toxic effect of caustic alkalis] Onset: 02-13-2019 Resolved: 02-13-2019 02-13-2019 Episodic Results Test Name Value Interpretation Reference Range Facility [facility] 09-23-2025 OV Office Visit (NRMDN) ---- SALONI HICKS ([id number]) 1950 F Date Time Provider Department 09/23/25 2:00 PM FELIX WU During your visit today, we recorded the following information about you: Pulse Blood pressure Weight Height 92/minute 129/77 64.3 kg 1.651 m Felix Wu APRN.ELIZABETH 09/23/2025 3:16 PM Signed [facility] - FOLLOW UP EVALUATION Summer Worrell DO [address] [place] [address] Dear Summer Worrell DO: I had the pleasure of seeing Ms. Hicks for follow-up today. As you know she is a 75 year old female with a history of since . Subjective Previous Plan- 04/11/2025 Visit: # Cervical spondylosis with myelopathy (M47.12) # Spinal stenosis of cervical region (M48.02) Suspected cervical spondylosis with myelopathy contributing to tightness and weakness in arms and legs. No previous MRI of the cervical spine available for review. - Ordered MRI of the cervical spine to evaluate for spondylosis and myelopathy. # Neuropathy (G62.9) Long-standing neuropathy, likely secondary to diabetes mellitus type 2, with numbness in feet, legs, and pelvic area. Previous foot surgeries may have contributed to neuropathy. - Continue management of diabetes mellitus type 2 to prevent further progression of neuropathy. # Radiculopathy, lumbar region (M54.16) History of lumbar spinal stenosis with radiculopathy, contributing to lower extremity weakness and numbness. - Obtain previous MRI of the lumbar spine from [facility] for review. 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 Patient exhibits spastic gait with short stride length and difficulty with tandem walking. - Initiate physical therapy to improve gait and mobility. 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 - Initiate speech therapy to address dysarthria. # Decline in verbal memory (R41.3) Reported memory issues over the past two years, with difficulty remembering tasks and confusion. - [facility] for further evaluation and management of memory decline. # Unspecified ptosis of right eyelid (H02.401) Right-sided ptosis noted on examination, reportedly longstanding and unchanged. # History of falling (Z91.81) Frequent falls over the past two years, likely due to multifactorial gait disorder and neuropathy. - Emphasized importance of using walker for stability and safety. Update 07/28/2025 MRI C-spine: 1. NO SUSPICIOUS CORD SIGNAL ABNORMALITY OR MORPHOLOGY 2. MILD SPONDYLITIC CONTACT OF CORD, DETAILED 3. FORAMINAL NARROWING GREATEST AT SEVERE LEFT C4-5 WITH OTHER LESSER CHANGES DETAILED 4. MARROW EDEMA INVOLVING BILATERAL TRANSVERSE PROCESSES AT C7 AND T1, AND LEFT C7 FACET. UNKNOWN ETIOLOGY, CANNOT EXCLUDE A STRAIN INJURY To my eye: straightening of the cord with loss of spinal lordosis, spinal canal narrowing most prominent at C3-4 with change in the trajectory of the cord to accommodate the changing spinal canal with no abnormal signal. I will hold off on referral to spine clinic at this time. Interval History: Saloni Hicks is a 75-year-old female with hypothyroidism, cervical degenerative disc disease, arthritis, and peripheral neuropathy presenting for evaluation of balance issues and memory concerns. She saw Dr. Mercado in January. He checked an MRI spine. He communicated MRI results showed degenerative changes but nothing alarming and indicated she did not need a follow up visit. She was referred to [facility] for [facility] issues, she declined the appointment with [facility] as the first they could get her in was [facility] and did not schedule appt after that. TSH checked a couple weeks ago was high 36.900. She had stopped taking Synthroid as she had been taking in the middle of the night. She has restarted Synthroid and following with PCP. Saloni reports a 3-year history of balance difficulties, with recent worsening over the past few months. She describes a tendency to lean to the left while sitting. She denies any significant back issues, though she occasionally experiences back pain with certain movements. She has been told she has severe cervical degenerative spine and left hip arthritis. Explained that these issues along with severe peripheral neuropathy will all contribute to imbalance and gait issues. She reports that her gait and balance fluctuate daily. Some days she can walk unassisted with good balance, while on other days she can barely stand or use her rollator correctly. She finds this variability frustrating and does not understand the cause. She reports poor sleep due to pain, which varies in location. She takes gabapentin and Tylenol for kasandra (more content not included)... Normal [facility] ACETYLCHOLINE RECEPT/MODULATING 0 % Normal <=45 [facility] Comment on above: Order Comment: Speci men Type: BLOOD SPECIMENOrdering Facility: [facility] Address: [address] [place] [address] [place] [address] Result Comment: INTE RPRETIVE INFORMATION: Acetylcholine Modulating Ab Negative .......... 0-45 percent modulating Positive .......... 46 percent or greater modulating Approximately 85-90 percent of patients with myasthenia gravis (MG) express antibodies to the acetylcholine receptor (AChR), which can be divided into binding, blocking, and modulating antibodies. Binding antibody can activate complement and lead to loss of AChR. Blocking antibody may impair binding of acetylcholine to the receptor, leading to poor muscle contraction. Modulating antibody causes receptor endocytosis resulting in loss of AChR expression, which correlates most closely with clinical severity of disease. Approximately 10-15 percent of individuals with confirmed myasthenia gravis have no measurable binding, blocking, or modulating antibodies. This test was developed and its performance characteristics determined by [facility]. It has not been cleared or approved by the [place] Food and Drug Administration. This test was performed in a CLIA certified laboratory and is intended for clinical purposes. Performed By: [facility] [address] [place] [address] Oil Plant Operator: Robert Barton MD, PhD CLIA Number: [id number] Performed By: #### A CEMOD ####[facility] [id number] [place] [address] ALBUMIN/CREATININE RATIO, UR INEon 09-09-2025 Albumin DL <= 20 mg/L (U) [Mass/Vol] 30.2 mg/L Normal [facility] Comment on above: Order Comment: Speci men Type: URINE SPECIMEN [facility] Facility: [facility] Address: [address] [place] [address] [place] [address] Performed By: #### U ACR #### [facility] CLIA [id number] [address] [place] [address] [place] Albumin/Creatinine (U) [Mass ratio] 35 mg/g High <30 [facility] Comment on above: Order Comment: Speci men Type: URINE SPECIMEN [facility] Facility: [facility] Address: [address] [place] [address] Result Comment: Adul t Male and Female Nephrotic Criteria: <30 mg/g is considered normal to mildly increased 30-300 mg/g is considered moderately increased >300 mg/g is considered severely increased KDIGO. (2013). KDIGO 2012 Clinical Practice Guideline for the Evaluation and Management of Chronic Kidney Disease. Official Journal of the International Society of Nephrology, 3(1), 1-150. Performed By: #### U ACR #### [facility] CLIA [id number] [address] [place] [address] [place] [facility] Creatinine (U) [Mass/Vol] 85.6 mg/dL Normal 20.0-300.0 [facility] Comment on above: Order Comment: Speci men Type: URINE SPECIMEN [facility] Facility: [facility] Address: [address] [place] [address] Performed By: #### U ACR #### [facility] CLIA [id number] [address] [place] [address] [place] [facility] SANDY BY IFA WITH REFLEXon Nuclear Ab Ql (S) Negative Normal Negative [facility] Comment on above: Order Comment: Speci men Type: BLOOD SPECIMEN [facility] Facility: [facility] Address: [address] [place] [address] Result Comment: Anti -nuclear antibody test is used as an aid in diagnosis of systemic autoimmune diseases. Where positive and clinically warranted, follow-up using disease-specific testing is recommended. Low positive titers are not uncommon with advanced age, certain chronic infections, and malignancies among others. Test methodology: Indirect fluorescence immunoassay (IFA) using HEp-2 cells. Performed By: #### A NAIFR #### [facility] CLIA [id number] [address] [place] [address] [place] CBC W Auto Differential pane l (Bld)on 09-09-2025 Basophils (Bld) [#/Vol] 0.04 10*3/uL Normal <0.11 [facility] Comment on above: Order Comment: Speci men Type: BLOOD SPECIMEN [facility] Facility: [facility] Address: [address] [place] [address] Performed By: #### A NAIFR #### [facility] CLIA [id number] [address] [place] [address] [place] Basophils/100 WBC (Bld) 0.5 % Normal [facility] Comment on above: Order Comment: Speci men Type: BLOOD SPECIMEN [facility] Facility: [facility] Address: [address] [place] [address] Performed By: #### A NAIFR #### [facility] CLIA [id number] [address] [place] [address] [place] Differential cell count method Nom (Bld) Auto Normal [facility] Comment on above: Order Comment: Speci men Type: BLOOD SPECIMEN [facility] Facility: [facility] Address: [address] [place] [address] Performed By: #### A NAIFR #### [facility] CLIA [id number] [address] [place] [address] [place] Eosinophils (Bld) [#/Vol] 0.30 10*3/uL Normal <0.46 [facility] Comment on above: Order Comment: Speci men Type: BLOOD SPECIMEN [facility] Facility: [facility] Address: [address] [place] [address] Performed By: #### A NAIFR #### [facility] CLIA [id number] [address] [place] [address] [place] Eosinophils/100 WBC (Bld) 4.0 % Normal [facility] Comment on above: Order Comment: Speci men Type: BLOOD SPECIMEN [facility] Facility: [facility] Address: [address] [place] [address] Performed By: #### A NAIFR #### [facility] CLIA [id number] [address] [place] [address] [place] Erythrocyte distribution width (RBC) [Ratio] 13.2 % Normal 11.5-15.0 [facility] Comment on above: Order Comment: Speci men Type: BLOOD SPECIMEN [facility] Facility: [facility] Address: [address] [place] [address] [place] [address] Performed By: #### A NAIFR #### [facility] CLIA [id number] [address] [place] [address] [place] Hematocrit (Bld) [Volume fraction] 39.5 % Normal 36.0-46.0 [facility] Comment on above: Order Comment: Speci men Type: BLOOD SPECIMEN [facility] Facility: [facility] Address: [address] [place] [address] [place] [address] Performed By: #### A NAIFR #### [facility] CLIA [id number] [address] [place] [address] [place] Hemoglobin (Bld) [Mass/Vol] 13.3 g/dL Normal 11.5-15.5 [facility] Comment on above: Order Comment: Speci men Type: BLOOD SPECIMEN [facility] Facility: [facility] Address: [address] [place] [address] [place] [address] Performed By: #### A NAIFR #### [facility] CLIA [id number] [address] [place] [address] [place] Immature granulocytes (Bld) [#/Vol] 10*3/uL Normal <0.10 [facility] Comment on above: Order Comment: Speci men Type: BLOOD SPECIMEN [facility] Facility: [facility] Address: [address] [place] [address] [place] [address] Performed By: #### A NAIFR #### [facility] CLIA [id number] [address] [place] [address] [place] Immature granulocytes/100 WBC (Bld) 0.3 % Normal [facility] Comment on above: Order Comment: Speci men Type: BLOOD SPECIMEN [facility] Facility: [facility] Address: [address] [place] [address] [place] [address] Performed By: #### A NAIFR #### [facility] CLIA [id number] [facility] [place] [address] [place] Lymphocytes (Bld) [#/Vol] 1.69 10*3/uL Normal 1.00-4.00 [facility] Comment on above: Order Comment: Speci men Type: BLOOD SPECIMEN [facility] Facility: [facility] Address: [address] [place] [address] [place] [address] Performed By: #### A NAIFR #### [facility] CLIA [id number] [address] [place] [address] [place] Lymphocytes/100 WBC (Bld) 22.6 % Normal [facility] Comment on above: Order Comment: Speci men Type: BLOOD SPECIMEN [facility] Facility: [facility] Address: [address] [place] [address] [place] [address] Performed By: #### A NAIFR #### [facility] CLIA [id number] [address] [place] [address] [place] MCH (RBC) [Entitic mass] 35.0 pg High 26.0-34.0 [facility] Comment on above: Order Comment: Speci men Type: BLOOD SPECIMEN [facility] Facility: [facility] Address: [address] [place] [address] [place] [address] Performed By: #### A NAIFR #### [facility] CLIA [id number] [address] [place] [address] [place] MCHC (RBC) [Mass/Vol] 33.7 g/dL Normal 30.5-36.0 [facility] Comment on above: Order Comment: Speci men Type: BLOOD SPECIMEN [facility] Facility: [facility] Address: [address] [place] [address] [place] [address] Performed By: #### A NAIFR #### [facility] CLIA [id number] [address] [place] [address] [place] MCV (RBC) [Entitic vol] 103.9 fL High 80.0-100.0 C [facility] Comment on above: Order Comment: Speci men Type: BLOOD SPECIMEN [facility] Facility: [facility] Address: [address] [place] [address] [place] [address] Performed By: #### A NAIFR #### [facility] CLIA [id number] [address] [place] [address] [place] Monocytes (Bld) [#/Vol] 0.43 10*3/uL Normal <0.87 [facility] Comment on above: Order Comment: Speci men Type: BLOOD SPECIMEN [facility] Facility: [facility] Address: [address] [place], [place] [address] [address] Performed By: #### A NAIFR #### [facility] CLIA [id number] [address] [place] [address] [place] Monocytes/100 WBC (Bld) 5.7 % Normal C [facility] Comment on above: Order Comment: Speci men Type: BLOOD SPECIMEN [facility] Facility: [facility] Address: [address] [place] [address] [place] [address] Performed By: #### A NAIFR #### [facility] CLIA [id number] [address] [place] [address] [place] Neutrophils (Bld) [#/Vol] 5.00 10*3/uL Normal 1.45-7.50 [facility] Comment on above: Order Comment: Speci men Type: BLOOD SPECIMEN [facility] Facility: [facility] Address: [address] [place] [address] [place] [address] Performed By: #### A NAIFR #### [facility] CLIA [id number] [address] [place] [address] [place] Neutrophils/100 WBC (Bld) 66.9 % Normal [facility] Comment on above: Order Comment: Speci men Type: BLOOD SPECIMEN [facility] Facility: [facility] Address: [address] [place] [address] [place] [address] Performed By: #### A NAIFR #### [facility] CLIA [id number] [address] [place] [address] [place] Nucleated RBC (Bld) [#/Vol] 10*3/uL Normal <0.01 [facility] Comment on above: Order Comment: Speci men Type: BLOOD SPECIMEN [facility] Facility: [facility] Address: [address] [place] [address] Performed By: #### A NAIFR #### [facility] CLIA [id number] [address] [place] [address] [place] Nucleated RBC/100 WBC (Bld) [Ratio] 0.0 /100 WBC Normal [facility] Comment on above: Order Comment: Speci men Type: BLOOD SPECIMEN [facility] Facility: [facility] Address: [address] [place] [address] Performed By: #### A NAIFR #### [facility] CLIA [id number] [address] [place] [address] [place] Platelet mean volume (Bld) [Entitic vol] 9.2 fL Normal 9.0-12.7 [facility] Comment on above: Order Comment: Speci men Type: BLOOD SPECIMEN [facility] Facility: [facility] Address: [address] [place] [address] Performed By: #### A NAIFR #### [facility] CLIA [id number] [address] [place] [address] [place] Platelets (Bld) [#/Vol] 219 10*3/uL Normal 150-400 [facility] Comment on above: Order Comment: Speci men Type: BLOOD SPECIMEN [facility] Facility: [facility] Address: [address] [place] [address] Performed By: #### A NAIFR #### [facility] CLIA [id number] [address] [place] [address] [place] [place] RBC (Bld) [#/Vol] 3.80 10*6/uL Low 3.90-5.20 [facility] Comment on above: Order Comment: Speci men Type: BLOOD SPECIMEN Ordering Facility: [facility] Address: [address] [place] [address] [place] [address] Performed By: #### A NAIFR #### [facility] CLIA [id number] [address] [place] [address] [place] WBC (Bld) [#/Vol] 7.48 10*3/uL Normal 3.70-11.00 [facility] Comment on above: Order Comment: Speci men Type: BLOOD SPECIMEN Ordering Facility: [facility] Address: [address] [place] [address] [place] [address] Performed By: #### A NAIFR #### [facility] CLIA [id number] [address] [place] [address] [place] COPPER BLOODon 09-09-2025 Copper [Mass/Vol] 95 ug/dL Normal 80-155 [facility] Comment on above: Order Comment: Speci men Type: BLOOD SPECIMEN Ordering Facility: [facility] Address: [address] [place] [address] [place] [address] Result Comment: This test was developed, and its performance characteristics determined by the [facility] Department of Pathology and Laboratory Medicine. It has not been cleared or approved by the FDA. The [facility] Department of Pathology and Laboratory Medicine is regulated under CLIA as qualified to perform high-complexity testing. This test is used for clinical purposes. It should not be regarded as investigational or for research. Performed By: #### A NAIFR #### [facility] CLIA [id number] [address] [place] [address] [place] CRP SerPl-mCncon 09-09-2025 CRP [Mass/Vol] mg/L Normal <0.9 [facility] Comment on above: Order Comment: Speci men Type: BLOOD SPECIMEN Ordering Facility: [facility] Address: [address] [place], [place] [address] [address] Performed By: #### A NAIFR #### [facility] CLIA [id number] [facility] [place] [address] [place] Comprehensive metabolic 2000 panelon 09-09-2025 Albumin [Mass/Vol] 4.3 g/dL Normal 3.9-4.9 [facility] Comment on above: Order Comment: Speci men Type: BLOOD SPECIMEN Ordering Facility: [facility] Address: [address] [place] [address] [place] [address] Performed By: #### A NAIFR #### [facility] CLIA [id number] [address] [place] [address] [place] ALP [Catalytic activity/Vol] 100 U/L Normal 34-123 [facility] Comment on above: Order Comment: Speci men Type: BLOOD SPECIMEN Ordering Facility: [facility] Address: [address] [place] [address] Performed By: #### A NAIFR #### [facility] CLIA [id number] [address] [place] [address] [place] ALT [Catalytic activity/Vol] 15 U/L Normal 7-38 [facility] Comment on above: Order Comment: Speci men Type: BLOOD SPECIMEN Ordering Facility: [facility] Address: [address] [place] [address] Performed By: #### A NAIFR #### [facility] CLIA [id number] [address] [place] [address] [place] Anion gap [Moles/Vol] 12 mmol/L Normal 8-15 [facility] Comment on above: Order Comment: Speci men Type: BLOOD SPECIMEN Ordering Facility: [facility] Address: [address] [place] [address] [place] [address] Performed By: #### A NAIFR #### [facility] CLIA [id number] [address] [place] [address] [place] AST [Catalytic activity/Vol] 21 U/L Normal 13-35 [facility] Comment on above: Order Comment: Speci men Type: BLOOD SPECIMEN Ordering Facility: [facility] Address: [address] [place] [address] [place] [address] Performed By: #### A NAIFR #### [facility] CLIA [id number] [address] [place] [address] [place] Bilirubin [Mass/Vol] 0.3 mg/dL Normal 0.2-1.3 [facility] Comment on above: Order Comment: Speci men Type: BLOOD SPECIMEN Ordering Facility: [facility] Address: [address] [place] [address] [place] [address] Performed By: #### A NAIFR #### [facility] CLIA [id number] [address] [place] [address] [place] Calcium [Mass/Vol] 9.5 mg/dL Normal 8.5-10.2 [facility] Comment on above: Order Comment: Speci men Type: BLOOD SPECIMEN Ordering Facility: [facility] Address: [address] [place] [address] [place] [address] Performed By: #### A NAIFR #### [facility] CLIA [id number] [address] [place] [address] [place] Chloride [Moles/Vol] 103 mmol/L Normal 98-107 [facility] Comment on above: Order Comment: Speci men Type: BLOOD SPECIMEN Ordering Facility: [facility] Address: [address] [place] [address] [place] [address] Performed By: #### A NAIFR #### [facility] CLIA [id number] [address] [place] [address] [place] CO2 [Moles/Vol] 25 mmol/L Normal 22-30 [facility] Comment on above: Order Comment: Speci men Type: BLOOD SPECIMEN Ordering Facility: [facility] Address: [address] [place] [address] [place] [address] Performed By: #### A NAIFR #### [facility] CLIA [id number] [address] [place] [address] [place] Creatinine [Mass/Vol] 0.97 mg/dL High 0.58-0.96 [facility] Comment on above: Order Comment: Tk sauceda Type: BLOOD SPECIMEN Ordering Facility: [facility] Address: [address] [place] [address] Performed By: #### A NAIFR #### [facility] CLIA [id number] [address] [place] [address] [place] eGFRcr SerPlBld CKD-EPI 2020 61 mL/min/1.73m??? Normal >=60 [facility] Comment on above: Order Comment: Tk sauceda Type: BLOOD SPECIMEN Ordering Facility: [facility] Address: [address] [place] [address] Result Comment: Cande mated Glomerular Filtration Rate (eGFR) is calculated using the 2020 CKD-EPI creatinine equation. This equation utilizes serum creatinine, sex, and age as parameters. The creatinine assay has traceable calibration to isotope dilution-mass spectrometry. Refer to KDIGO guidelines for clinical interpretation. In patients with unstable renal function, e.g. those with acute kidney injury, the eGFR may not accurately reflect actual GFR. Performed By: #### A NAIFR #### [facility] CLIA [id number] [address] [place] [address] [place] Glucose [Mass/Vol] 302 mg/dL High 74-99 [facility] Comment on above: Order Comment: Tk sauceda Type: BLOOD SPECIMEN Ordering Facility: [facility] Address: [address] [place] [address] Result Comment: The [place] Diabetes Association (ADA) provides guidance for cutoff values for fasting glucose and random glucose. The ADA defines fasting as no caloric intake for at least 8 hours. Fasting plasma glucose results between 100 to 125 [...] Standards of Medical Care in Diabetes 2016, [place] Diabetes Association. Diabetes Care. 2016.39(Suppl 1). Performed By: #### A NAIFR #### [facility] CLIA [id number] [address] [place] [address] [place] Potassium [Moles/Vol] 4.4 mmol/L Normal 3.7-5.1 [facility] Comment on above: Order Comment: Speci men Type: BLOOD SPECIMEN Ordering Facility: [facility] Address: [address] [place] [address] [employer] [place] [address] Performed By: #### A NAIFR #### [facility] CLIA [id number] [address] [place] [address] [place] Protein [Mass/Vol] 7.2 g/dL Normal 6.3-8.0 [facility] Comment on above: Order Comment: Speci men Type: BLOOD SPECIMEN Ordering Facility: [facility] Address: [address] [place] [address] [place] [address] Performed By: #### A NAIFR #### [facility] CLIA [id number] [address] [place] [address] [place] Sodium [Moles/Vol] 140 mmol/L Normal 136-144 [facility] Comment on above: Order Comment: Speci men Type: BLOOD SPECIMEN Ordering Facility: [facility] Address: [address] [place] [address] [employer]ISON[employer] Technology[place] [address] Performed By: #### A NAIFR #### [facility] CLIA [id number] [address] [place] [address] [place] Urea nitrogen [Mass/Vol] 23 mg/dL High 7-21 [facility] Comment on above: Order Comment: Speci men Type: BLOOD SPECIMEN Ordering Facility: [facility] Address: [address] [place] [address] [place] [address] Performed By: #### A NAIFR #### [facility] CLIA [id number] [address] [place] [address] [place] ESR Westergren method (Bld) [Velocity]on 09-09-2025 ESR (Bld) [Velocity] 13 mm/h Normal 0-20 [facility] Comment on above: Order Comment: Speci men Type: BLOOD SPECIMENOrdering Facility: [facility] Address: [address] [place] [address] Performed By: #### 4 537-7 ####[facility] [id number] [place] [address] [place] GANGLIOSIDE (GM1) ANTIBODIES , IGG AND IGMon 09-09-2025 GM1 AB, IGM (RFL) 60 IV High 0-50 [facility] Comment on above: Order Comment: Speci men Type: BLOOD SPECIMEN Ordering Facility: [facility] Address: [address] [place] [address] Result Comment: INTE RPRETIVE INFORMATION: Ganglioside (GM1) Antibodies, IgG and IgM 29 IV or less: Negative 30-50 IV: Equivocal 51-100 IV: Positive 101 IV or greater: Strong positive Ganglioside antibodies are associated with diverse peripheral neuropathies. Elevated antibody levels to ganglioside-monosialic acid (GM1) are associated with motor or sensorimotor neuropathies, particularly multifocal motor neuropathy. Anti-GM1 may occur as IgM (polyclonal or monoclonal) or IgG antibodies. These antibodies may also be found in patients with diverse connective tissue diseases as well as normal individuals. These tests by themselves are not diagnostic and should be used in conjunction with other clinical parameters to confirm disease. This test was developed and its performance characteristics determined by [facility]. It has not been cleared or approved by the [place] Food and Drug Administration. This test was performed in a CLIA certified laboratory and is intended for clinical purposes. Performed By: [facility] [address] [place] [address] Oil Plant Operator: Robert Barton MD, PhD CLIA Number: [id number] Performed By: #### A NAIFR #### [facility] CLIA [id number] [address] [place] [address] [place] GM1 ANTIBODY, IGG 4 IV Normal 0-50 [facility] Comment on above: Order Comment: Tk sauceda Type: BLOOD SPECIMEN Ordering Facility: [facility] Address: [address] [place] [address] Performed By: #### A NAIFR #### [facility] CLIA [id number] [facility] [place] [address] [place] HbA1c (Bld)on 09-09-2025 Average glucose Estimated from glycated hemoglobin (Bld) [Mass/Vol] 146 mg/dL Normal [facility] Comment on above: Order Comment: Tk sauceda Type: BLOOD SPECIMEN Ordering Facility: [facility] Address: [address] [place] [address] Result Comment: eAG: (Estimated average glucose) is a calculated value from HgbA1c and is medical device sales representative of the average blood glucose level in the last 2-3 month period. Performed By: #### A NAIFR #### [facility] CLIA [id number] [address] [place] [address] [place] HbA1c (Bld) [Mass fraction] 6.7 % High 4.3-5.6 [facility] Comment on above: Order Comment: Tk sauceda Type: BLOOD SPECIMEN Ordering Facility: [facility] Address: [address] [place] [address] Result Comment: [place] Diabetes Association guidelines indicate that patients with HgbA1c in the range 5.7-6.4% are at increased risk for development of diabetes, and intervention by lifestyle modification may be beneficial. HgbA1c greater or equal to 6.5% is considered diagnostic of diabetes. Performed By: #### A NAIFR #### [facility] CLIA [id number] [address] [place] [address] [place] MYELIN ANTIBODY IGG, IFAon 1 MYELIN ANTIBODY IGG Negative Normal NEGATIVE [facility] Comment on above: Order Comment: Tk sauceda Type: BLOOD SPECIMENOrdering Facility: [facility] Address: [address] [place] [address] Result Comment: This test was performed using a kit that has not been cleared or approved by the FDA. The analytical performance characteristics of this test have been determined by [facility]. This test should not be used for diagnosis without confirmation by other medically established means. TEST PERFORMED AT: [id number] [facility] [address] [place] [address] Cloth Weigher: Mike Tucker MD, PhD, INGRID Performed By: #### M YABG ####[employer] [facility] [id number] [place] [address] TSH SerPl-aCncon 09-09-2025 TSH Qn 36.900 m[IU]/L High 0.270-4.200 [facility] Comment on above: Order Comment: Speci men Type: BLOOD SPECIMEN Ordering Facility: [facility] Address: [address] [place] [address] Performed By: #### A NAIFRomain #### [facility] CLIA [id number] [address] [place] [address] OF [facility] CNOVon 08-29-2025 CNOV Office Visit (OBGYWM) ---- SALONI HICKS ([id number]) 1950 F Date Time Provider Department 08/29/25 2:45 PM PASTORA MURPHY OBGYWM During your visit today, we recorded the following information about you: Blood pressure Weight 116/58 64 kg Pastora Murphy APRN.CNM 08/29/2025 3:26 PM Signed Environmental Services Specialist offered: Patient declines. Saloni Hicks is a 75 year old female who presents today for a vulvar biopsy. Indication: persistent pruritis. UNIVERSAL PROTOCOL / SAFETY CHECKLIST Procedure to be Performed: Vulvar biopsy Sign In: A Moment of CARE was completed. Appropriate PPE (Personal Protective Equipment) worn by all providers involved with the procedure. Patient/Surrogate Stated/Verified: Patient name, Date of , Relevant allergies, and The intended procedure Time Out: Relevant labs, photos, and/or imaging studies have been reviewed. Intended patient and procedure match the source document(s) (e.g. consent, HANDP, associated studies [imaging, pathology]) match the intended patient and procedure. Consent obtained and matches the intended procedure. Yes. Correct side/site has been marked and visible. Medications required for this procedure are verified. Fire risk assessed and is not applicable. Sign Out: Specimens are all correctly labeled and sent. All instruments, equipment, possible retained foreign bodies are accounted for. Yes. The post-procedure plan of care has been communicated to the patient or surrogate. PROCEDURE NOTE: GROSS LESIONS: No BIOPSY: Area was cleansed with betadine and anesthetized with 1mL 1% lidocaine. 3mm Manuelito punch used to biopsy region. HEMOSTASIS: Obtained with silver nitrate Procedure Summary: Patient tolerated procedure well ASSESSMENT/PLAN: 1. 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 Vulvar burning - ICD9: 625.9, ICD10: N94.89 - SURGICAL PATHOLOGY - CLOBETASOL 0.05 % TOPICAL OINTMENT 3. Vulvar irritation - ICD9: 624.8, ICD10: N90.89 - SURGICAL PATHOLOGY - CLOBETASOL 0.05 % TOPICAL OINTMENT PLAN: Specimens labeled and sent to Pathology. Will notify patient of results in 1-2 weeks. Follow up in 2 weeks to discuss results. 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 The biopsy result will assist your lens molding equipment operator to devise a treatment plan suitable to your condition. 1. Usually, there is a local discomfort, swelling, and skin discoloration. Using cold compresses overnight usually alleviates the discomfort considerably. Warm compresses thereafter can be used as needed. Prescribed analgesic (pain killers) are not necessary. You may use Advil, Tylenol, etc. for pain relief. 2. You may shower or take tub baths. 3. If sutures are used, they will dissolve in 7-14 days. 4. You should call the office if there is excessive bleeding, swelling, fever, chills, sweats, or difficulty walking. 5. Biopsy results will be available in 7-10 days. If you have not heard your results in 2 weeks please contact your physician. Allergies As of Date: 08/29/2025 Noted Allergy Reaction SEASONAL ALLERGIES 04/27/2018 14 - Other: See Comments Comments: pollen causes sneezing Date Reviewed: 08/29/2025 Reviewed by: Tacho Bauman LPN - Fully Assessed Reason for Visit: Vulvar biopsy [Other] Primary Visit Diagnosis:Vulvar atrophy [N90.5] Other Visit Diagnoses:Vulvar burning [N94.89] Vulvar irritation [N90.89] Order(s):SURGICAL PATHOLOGY [[id number]] Order #: [id number] clobetasol (TEMOVATE) 0.05 % ointmentApply thin layer to affected area BID x 4wks, then daily for 4 wks, then every other day for 4 weeks then PRN for symptomsDisp: 60 gRfl: 3 Prescriptions as of 08/29/2025 - clobetasol (TEMOVATE) 0.05 % ointment Apply thin layer to affected area BID x 4wks, then daily for 4 wks, then every other day for 4 weeks then PRN for symptoms - estradiol (ESTRACE) 0.01 % (0.1 mg/gram) vaginal cream Insert 1 gram of cream intravaginally at bedtime nightly for 2 weeks, and then twice weekly. Save a pea sized amount to apply externally. - buPROPion XL (WELLBUTRIN XL) 150 mg 24 hr tablet Take 150 mg by mouth once daily. - gabapentin (NEURONTIN) 100 mg capsule Take 600 mg by mouth once daily. - metFORMIN (GLUCOPHAGE) 500 mg tablet Take 1 tablet by mouth three times daily. - buPROPion XL (WELLBUTRIN XL) 300 mg 24 hr tablet TAKE 1 TABLET EVERY DAY - Omeprazole 40 mg capsule take 1 capsule by mouth once daily - valACYclovir (VALTREX) 500 mg tablet TAKE 1 TABLET EVERY DAY - lisinopril (ZESTRIL, PRINIVIL) 5 mg tablet Take 1 tablet by mouth once daily. - SYNTHROID 175 mcg tablet Take 1 (more content not included)... Normal [facility] Pathology biopsy report Curtis (Tiss)on 08-29-2025 AP DISCLAIMER Normal [facility] Comment on above: Order Comment: Speci men Type: TISSUE SPECIMENOrdering Facility: [facility] Address: [address] [place] [address] Result Comment: Melanie michelle Developed Test (LDT) Disclaimer: Performance characteristics of immunohistochemical, immunofluorescent, and chromogenic in-situ hybridization tests have been determined by the performing laboratory within the [facility] Department of Pathology and Laboratory Medicine ([facility], [facility], [facility], [facility], [facility], [facility], or [facility]) in a manner consistent with CLIA requirements. One or more of these tests may not have been cleared or approved by the FDA. The [facility] Department of Pathology and Laboratory Medicine is regulated under CLIA as qualified to perform high-complexity testing. These tests are used for clinical purposes. These should not be regarded as investigational or for research. Positive and negative controls stain appropriately. Performed By: #### 6 6121-5 ####[facility] [id number] [place] [address] [place] CASE REPORT Normal [facility] Comment on above: Order Comment: Speci men Type: TISSUE SPECIMENOrdering Facility: [facility] Address: [address] [place] [address] Result Comment: Surg [facility] Pathology Report Case: [id number] Authorizing Provider: Pastora Murphy APRN.CNM Collected: 08/29/2025 03:28 PM Ordering Location: OB/Gynecology Received: 08/29/2025 04:40 PM Pathologist: Michelle Mckay MD Specimen: Vulva, Biopsy Performed By: #### 6 6121-5 ####[facility] [id number] [place] [address] [place] CLINICAL HISTORY vulvar atrophy Normal [facility] Comment on above: Order Comment: Speci men Type: TISSUE SPECIMENOrdering Facility: [facility] Address: [address] [place] [address] Performed By: #### 6 6121-5 ####[facility] [id number] [address] FINAL DIAGNOSIS Normal [facility] Comment on above: Order Comment: Speci men Type: TISSUE SPECIMENOrdering Facility: [facility] Address: [address] [place] [address] Result Comment: A. Haresh ireland, biopsy: - Consistent with lichen sclerosus. at 1107 EDT Performed By: #### 6 6121-5 ####[facility] [id number] [address] OF [facility] FINAL PERFORMING LAB Normal [facility] Comment on above: Order Comment: Speci men Type: TISSUE SPECIMENOrdering Facility: [facility] Address: [address] [place] [address] Result Comment: Diag nostic interpretation performed at: [facility], [address] [place] [address] CLIA# [id number] Oil Plant Operator: Lion Majano MD Performed By: #### 6 6121-5 ####[facility] [id number] [address] OF [facility] GROSS DESCRIPTION Normal [facility] Comment on above: Order Comment: Speci men Type: TISSUE SPECIMENOrdering Facility: [facility] Address: [address] [place] [address] Result Comment: A. V ulva, Biopsy Received in formalin is a cylindrical segment of skin and subcutaneous tissue measuring 0.3 x 0.2 x 0.3 cm. On the skin surface there is a 0.3 cm, constantino-brown area. The specimen is bisected. Totally submitted in one cassette. DL August 29, 2025 11:19 PM Gross examination performed at [facility], [address] [place] [address] Performed By: #### 6 6121-5 ####[facility] [id number] [place] [address] [place] BACTERIAL VAGINOSIS NAATon 0 08-08-2025 Interpretation and review of laboratory results Normal [facility] Lactobacillus crispatus+gasseri+watson ii + Gardnerella vaginalis + Atopobium vaginae rRNA MU+probe Ql (Vag fld) Not detected Not detected [facility] Lactobacillus crispatus+gasseri+watson ii + Gardnerella vaginalis + Atopobium vaginae rRNA MU+probe Ql (Vag fld) Not detected Normal Not detected [facility] Comment on above: Order Comment: Speci men Type: SWABOrdering Facility: [facility] Address: [address] [place] [address] Performed By: #### C VTV, BVAMP ####[facility] [id number] [place] [address] [place] JOAN/TRICHOMONAS NAATon 0 08-08-2025 C. glabrata RNA MU+probe Ql (Vag fld) Not detected Not detected [facility] Joan sp DNA MU+probe Ql (Vag fld) Not detected Not detected [facility] Comment on above: The Joan species group target includes C. albicans, C. tropicalis, C. parapsilosis, and C. dubliniensis. Interpretation and review of laboratory results Normal [facility] T. vaginalis DNA MU+probe Ql (Unsp spec) Not detected Not detected [facility] C. glabrata RNA MU+probe Ql (Vag fld) Not detected Normal Not detected [facility] Comment on above: Order Comment: Speci men Type: BLOOD SPECIMEN Ordering Facility: [facility] Address: [address] [place] [address] [place] [address] Performed By: #### A NAIFR #### [facility] CLIA [id number] [address] [place] [address] [place] Joan sp DNA MU+probe Ql (Vag fld) Not detected Normal Not detected [facility] Comment on above: Order Comment: Speci men Type: BLOOD SPECIMEN Ordering Facility: [facility] Address: [address] [place] [address] Result Comment: The Joan species group target includes C. albicans, C. tropicalis, C. parapsilosis, and C. dubliniensis. Performed By: #### A NAIFR #### [facility] CLIA [id number] [address] [place] [address] T. vaginalis DNA MU+probe Ql (Unsp spec) Not detected Normal Not detected [facility] Comment on above: Order Comment: Speci men Type: BLOOD SPECIMEN Ordering Facility: [facility] Address: [address] [place] [address] Performed By: #### A NAIFR #### [facility] CLIA [id number] [address] [place] [address] OF [facility] CNOVon 08-08-2025 CNOV Office Visit (OBGYWM) ---- SALONI HICKS ([id number]) 1950 F Date Time Provider Department 08/08/25 9:30 AM PASTORA MURPHY OBGYWM During your visit today, we recorded the following information about you: Blood pressure Weight 120/76 64.1 kg Pastora Murphy APRN.CNM 08/09/2025 5:25 PM Addendum Environmental Services Specialist offered: Patient declines. Saloni Hicks is a 75 year old female who presents for problem visit vulvar irritation HPI: Presents today with continued vaginal irritation, burning, and itching. Started using estradiol cream back in 03/18. Has continued twice weekly use and states uncertain if she ever had benefit. Denies any vaginal bleeding. Is not sexually active. Complaint of a small amount of discharge. Discomfort is on the outside and the inside . 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 History LMP: Postmenopausal Age at Menarche: 12 Age at First : Age at Menopause: Wastewater Engineer History Comments: Sexual Activity: Yes; No partner data on record; rarely Contraception: No contraception data on record PAST MEDICAL HISTORY Diagnosis Date Anxiety and depression 08/20/2017 Controlled type 2 diabetes mellitus without complication, without long-term current use of insulin ([facility]) 05/08/2017 Diabetic eye exam ([facility]) 07/07/2017 Last done: 06/26/2017 DM (diabetes mellitus) ([facility]) Essential hypertension 03/04/2018 GERD without esophagitis 08/20/2017 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 Amaro FAMILY HISTORY Problem Relation Age of Onset Cancer Mother Malignant neoplastic disease Heart Father Diabetes Father Diabetes Sister Diabetes Brother SOCIAL HISTORY[1] Current Outpatient Medications Medication Sig buPROPion XL (WELLBUTRIN XL) 150 mg 24 hr tablet Take 150 mg by mouth once daily. estradiol (ESTRACE) 0.01 % (0.1 mg/gram) vaginal cream Insert 1 gram of cream intravaginally at bedtime nightly for 2 weeks, and then twice weekly. Save a pea sized amount to apply externally. gabapentin (NEURONTIN) 100 mg capsule Take 600 mg by mouth once daily. metFORMIN (GLUCOPHAGE) 500 mg tablet Take 1 [...] tablet by mouth every Friday and Friday. donepezil (ARICEPT) 5 mg tablet Take 1 tablet by mouth daily at bedtime. memantine (NAMENDA) 5 mg tablet Take 5 mg by mouth two times a day. No current facility-administer ed medications for this visit. Allergies As of Date: 08/08/2025 Allergen Noted Reaction SEASONAL ALLERGIES 04/27/2018 Other: See Comments Fully Assessed 08/08/2025 REVIEW OF SYSTEMS Abdomen: No bloating, early satiety, indigestion, or increased flatulence. No abdominal pain, nausea, vomiting, diarrhea, or constipation. Bladder: No dysuria, gross hematuria, urinary frequency, urinary urgency, or incontinence. Breast: No breast lumps, nipple d/c, overlying skin changes, redness or skin retraction. Expanded ROS: N/A Allergies and current medication updated:Yes SENSITIVE EXAM: The sensitive examination was discussed with the Patient or Patient's Authorized A&P Technician. As applicable, any other physician, advance practice provider, medical student, or other health professional student that will be observing or involved in the sensitive examination for educational or training purposes was discussed with the Patient or Authorized A&P Technician. The Patient or Authorized A&P Technician has agreed to proceed with the sensitive examination. (Sensitive examination includes inspection and/or palpation of the breasts, pelvis, prostate and anorectal regions). EXAM: BP 120/76 Wt 141 lb 6.4 oz (64.1kg) GENERAL: pleasant, female in no apparent distress HEENT: Normocephalic and atraumatic NECK: Supple and full range of motion normal Bartholin's glands, urethra, [place]'s glands, no vulvar lesions, no cervical lesions, good vaginal support, normal appearing perineal body and perianal region. Admits to vulvar irritation on labia majora, minora, and vaginal. Sli (more content not included)... Normal [facility] Eliud 08-04-2025 JEREL Telephone (NRGAN) ---- FABIOLASALONI ([id number]) 1950 F Date Time Provider Department 08/04/25 FELIX WU During your visit today, we recorded the following information about you: Danita Sanchez MA 08/04/2025 2:50 PM Signed LM for pt advising that appointment with Felix Wu on 08/05/2025 at 11a is cancelled as Felix is not the appropriate provider to follow up with and to call our scheduling dept to schedule with Dr. Mercado. Allergies As of Date: 08/04/2025 Noted Allergy Reaction SEASONAL ALLERGIES 04/27/2018 14 - Other: See Comments Comments: pollen causes sneezing Date Reviewed: 04/11/2025 Reviewed by: Jeannie Schulz OCCA - Fully Assessed Reason for Visit: Appointment [186] Prescriptions as of 08/05/2025 - buPROPion XL (WELLBUTRIN XL) 150 mg 24 hr tablet Take 150 mg by mouth once daily. - estradiol (ESTRACE) 0.01 % (0.1 mg/gram) vaginal cream Insert 1 gram of cream intravaginally at bedtime nightly for 2 weeks, and then twice weekly. Save a pea sized amount to apply externally. - donepezil (ARICEPT) 5 mg tablet Take 1 tablet by mouth daily at bedtime. - gabapentin (NEURONTIN) 100 mg capsule Take 600 mg by mouth once daily. - memantine (NAMENDA) 5 mg tablet Take 5 mg by mouth two times a day. - metFORMIN (GLUCOPHAGE) 500 mg tablet Take 1 tablet by mouth three times daily. - buPROPion XL (WELLBUTRIN XL) 300 mg 24 hr tablet TAKE 1 TABLET EVERY DAY - Omeprazole 40 mg capsule take 1 capsule by mouth once daily - valACYclovir (VALTREX) 500 mg tablet TAKE 1 TABLET EVERY DAY - lisinopril (ZESTRIL, PRINIVIL) 5 mg tablet Take 1 tablet by mouth once daily. - SYNTHROID 175 mcg tablet Take 1 tablet by mouth every Friday and Friday. Problem List As Of Date 08/04/2025 Noted Resolved Controlled type 2 diabetes mellitus without com*05/08/2017 Acquired hypothyroidism [E03.9] 05/08/2017 Diabetic eye exam (HCC) [Z01.00, E11.9] 07/07/2017 GERD without esophagitis [K21.9] 08/20/2017 Herpes simplex infection of genitourinary syste*08/20/2017 Anxiety and depression [F41.9, F32.A] 08/20/2017 Smoker [F17.200] 08/20/2017 Iron deficiency anemia [D50.9] 08/20/2017 Encounter for gynecological examination without*08/20/2017 Type 2 diabetes mellitus with diabetic neuropat*08/20/2017 History of TIA (transient ischemic attack) [Z86*08/20/2017 Vitamin D deficiency [E55.9] 08/21/2017 Chronic seasonal allergic rhinitis [J30.2] 08/21/2017 Osteopenia, senile [M85.80] 08/21/2017 Carotid stenosis, asymptomatic, bilateral [I65.*09/10/2017 Medicare annual wellness visit, subsequent [Z00*02/18/2018 Current use of proton pump inhibitor [Z79.899] 02/18/2018 Essential hypertension [I10] 03/04/2018 Accidental ingestion of caustic alkali [T54.3X1*02/13/2019 02/13/2019 Cervical spondylosis with myelopathy [M47.12] 04/26/2025 Neuropathy [G62.9] 04/26/2025 Radiculopathy, cervical region [M54.12] 04/26/2025 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 NO SUSPICIOUS CORD SIGNAL ABNORMALITY OR MORPHOLOGY 2. MILD SPONDYLITIC CONTACT OF CORD, DETAILED 3. FORAMINAL NARROWING GREATEST AT SEVERE LEFT C4-5 WITH OTHER LESSER CHANGES DETAILED 4. MARROW EDEMA INVOLVING BILATERAL TRANSVERSE PROCESSES AT C7 AND T1, AND LEFT C7 FACET. UNKNOWN ETIOLOGY, CANNOT EXCLUDE A STRAIN INJURY Anatomic Variant: None. Assume 7 cervical vertebrae with counting from the craniocervical junction. Oil Agent: SAADIA Transcribe Date/Time: Jul 27 2025 1:31P Dictated by : DAVIN BARNETT MD This examination was interpreted and the report reviewed and electronically signed by: DAVIN BARNETT MD on Jul 27 2025 1:36PM [facility] DIVISION OF RADIOLOGY * * *Final Report* * * DATE OF EXAM: Jul 27 2025 12:43PM [facility] 0297 - MRI CERVICAL SPINE WO IVCON / PROCEDURE REASON: Spinal stenosis of cervical region * * * * Physician Interpretation * * * * EXAMINATION: MRI CERVICAL SPINE WO IVCON CLINICAL HISTORY: Possible myelopathy, with tightness and weakness in arms and legs. TECHNIQUE: Routine cervical spine MR protocol without gadolinium. MQ: MRCSPWO_3 COMPARISON: None. RESULT: Counting reference: Craniocervical junction. Anatomic Variants: None. Localizer images: No additional findings Alignment: There is a grade 1 anterolisthesis of C4 with respect to both C3 and C5, likely on a degenerative basis. There is a small grade 1 anterolisthesis of C7 on T1. Craniocervical junction: Craniocervical junction is normal. Cord: The visualized cord is within normal limits of signal intensity and morphology. Bone marrow signal/fracture: No evidence of pathologic marrow infiltration. No evidence of prior fracture. There is some marrow edema associated with the left C7 facet and pedicle, and the bilateral transverse process. In addition to bilateral transverse processes at T1. Etiology is uncertain, cannot exclude traumatic injury in the proper clinical context. Cervical soft tissues: The paraspinal soft tissues are within normal limits. C2-C3: Canal is patent, with mild left foraminal narrowing C3-C4: Mild spondylitic contact of ventral cord, no cord signal abnormality. There is moderate bilateral foraminal narrowing C4-C5: Canal is patent, with mild right and severe left foraminal narrowing C5-C6: Canal is patent, with moderate right and mild left foraminal narrowing C6-C7: Canal is patent, with mild right and moderate-severe left foraminal narrowing C7-T1: Canal and foramina are patent. DIVISION OF RADIOLOGY Provider, [facility] - 07/27/2025 * * *Final Report* * * DATE OF EXAM: Jul 27 2025 12:43PM [facility] 0297 - MRI CERVICAL SPINE WO IVCON / PROCEDURE REASON: Spinal stenosis of cervical region * * * * Physician Interpretation * * * * EXAMINATION: MRI CERVICAL SPINE WO IVCON CLINICAL HISTORY: Possible myelopathy, with tightness and weakness in arms and legs. TECHNIQUE: Routine cervical spine MR protocol without gadolinium. MQ: [id number]_[id number] COMPARISON: None. RESULT: Counting reference: Craniocervical junction. Anatomic Variants: None. Localizer images: No additional findings Alignment: There is a grade 1 anterolisthesis of C4 with respect to both C3 and C5, likely on a degenerative basis. There is a small grade 1 anterolisthesis of C7 on T1. Craniocervical junction: Craniocervical junction is normal. Cord: The visualized cord is within normal limits of signal intensity and morphology. Bone marrow signal/fracture: No evidence of pathologic marrow infiltration. No evidence of prior fracture. There is some marrow edema associated with the left C7 facet and pedicle, and the bilateral transverse process. In addition to bilateral transverse processes at T1. Etiology is uncertain, cannot exclude traumatic injury in the proper clinical context. Cervical soft tissues: The paraspinal soft tissues are within normal limits. C2-C3: Canal is patent, with mild left foraminal narrowing C3-C4: Mild spondylitic contact of ventral cord, no cord signal abnormality. There is moderate bilateral foraminal narrowing C4-C5: Canal is patent, with mild right and severe left foraminal narrowing C5-C6: Canal is patent, with moderate right and mild left foraminal narrowing C6-C7: Canal is patent, with mild right and moderate-severe left foraminal narrowing C7-T1: Canal and foramina are patent. IMPRESSION IMPRESSION: 1. NO SUSPICIOUS CORD SIGNAL ABNORMALITY OR MORPHOLOGY 2. MILD SPONDYLITIC CONTACT OF CORD, DETAILED 3. FORAMINAL NARROWING GREATEST AT SEVERE LEFT C4-5 WITH OTHER LESSER CHANGES DETAILED 4. MARROW EDEMA INVOLVING BILATERAL TRANSVERSE PROCESSES AT C7 AND T1, AND LEFT C7 FACET. UNKNOWN ETIOLOGY, CANNOT EXCLUDE A STRAIN INJURY Anatomic Variant: None. Assume 7 cervical vertebrae with counting from the craniocervical junction. Oil Agent: PSCB Transcribe Date/Time: Jul 27 2025 1:31P Dictated by : DAVIN BARNETT MD This examination was interpreted and the report reviewed and electronically signed by: DAVIN BARNETT MD on Jul 27 2025 1:36PM EST [facility] Radiology Study observation (narrative) Lila [facility] MR Cervical spine WO contras tOrdered By: Ccf Provider on 07-27-2025 [facility] MRI CERVICAL SPINE WO IVCONo n 07-27-2025 MRI CERVICAL SPINE WO IVCON * * *Final Report* * * DATE OF EXAM: Jul 27 2025 12:43PM [facility] Za[facility] - MRI CERVICAL SPINE WO IVCON / PROCEDURE REASON: Spinal stenosis of cervical region * * * * Physician Interpretation * * * * EXAMINATION: MRI CERVICAL SPINE WO IVCON CLINICAL HISTORY: Possible myelopathy, with tightness and weakness in arms and legs. TECHNIQUE: Routine cervical spine MR protocol without gadolinium. MQ: [id number]_3 COMPARISON: None. RESULT: Counting reference: Craniocervical junction. Anatomic Variants: None. Localizer images: No additional findings Alignment: There is a grade 1 anterolisthesis of C4 with respect to both C3 and C5, likely on a degenerative basis. There is a small grade 1 anterolisthesis of C7 on T1. Craniocervical junction: Craniocervical junction is normal. Cord: The visualized cord is within normal limits of signal intensity and morphology. Bone marrow signal/fracture: No evidence of pathologic marrow infiltration. No evidence of prior fracture. There is some marrow edema associated with the left C7 facet and pedicle, and the bilateral transverse process. In addition to bilateral transverse processes at T1. Etiology is uncertain, cannot exclude traumatic injury in the proper clinical context. Cervical soft tissues: The paraspinal soft tissues are within normal limits. C2-C3: Canal is patent, with mild left foraminal narrowing C3-C4: Mild spondylitic contact of ventral cord, no cord signal abnormality. There is moderate bilateral foraminal narrowing C4-C5: Canal is patent, with mild right and severe left foraminal narrowing C5-C6: Canal is patent, with moderate right and mild left foraminal narrowing C6-C7: Canal is patent, with mild right and moderate-severe left foraminal narrowing C7-T1: Canal and foramina are patent. IMPRESSION: 1. NO SUSPICIOUS CORD SIGNAL ABNORMALITY OR MORPHOLOGY 2. MILD SPONDYLITIC CONTACT OF CORD, DETAILED 3. FORAMINAL NARROWING GREATEST AT SEVERE LEFT C4-5 WITH OTHER LESSER CHANGES DETAILED 4. MARROW EDEMA INVOLVING BILATERAL TRANSVERSE PROCESSES AT C7 AND T1, AND LEFT C7 FACET. UNKNOWN ETIOLOGY, CANNOT EXCLUDE A STRAIN INJURY Anatomic Variant: None. Assume 7 cervical vertebrae with counting from the craniocervical junction. Oil Agent: SAADIA Transcribe Date/Time: Jul 27 2025 1:31P Dictated by : DAVIN BARNETT MD This examination was interpreted and the report reviewed and electronically signed by: DAVIN BARNETT MD on Jul 27 2025 1:36PM EST [id number] Normal [facility] [id number] 05-05-2025 [id number] HNO ID: [id number] Author: EVI PANTOJA CCC-SLP Service: ? Author Type: Speech Language Pathologist Type: [id number] Filed: 05/05/2025 09:12 Note Text: [facility] Rehabilitation [facility] Sports Therapy Speech Therapy Plan of Care Certification Patient Name: Saloni Hicks : 1950 CCF #: [id number] Date: 05/03/2025 To: Darren Mercado MD From Therapist: BRYNN Boggs RE: Patient Certification/ Recertification Your review, approval and electronic signature are required in order to comply with Payor: [employer] MEDICARE / Plan: [employer] MEDICARE PPO / Product Type: PPO / regulations. 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 2. Self-discriminate between intelligible and unintelligible speech with 100% effectiveness. 3. Demonstrate self-monitoring of appropriate phrasing and breath coordination in connected sentences/conversat ion with 100% effectiveness with minimal cues All goals to target the patient's overall ability to facilitate functional communication of ADL medical / social needs. VOICE GOALS 4. Demonstrate independence with vocal hygiene program for voice quality and intensity. 5. Demonstrate independence with strategies to promote vocal intensity and quality at the conversational level. All goals to target the patient's overall ability to facilitate functional communication of ADL medical / social needs. COGNITION AND LANGUAGE 6. Participate in standardized cognitive-linguisti c assessment to determine need for ST intervention and POC goals. Planned Interventions, Frequency, and Duration: Planned Treatment Interventions: Dysarthria/Apraxia Reduction Training (85730, 70696), Patient / Caregiver Education/ Training, Voice Training (44194), Speech Treatment (69152) Current Frequency: (4 visits within 4 weeks) Duration: 4 weeks PLAN FOR NEXT VISIT: Education and instruction in vocal hygience, strategies to promote speech clarity and vocal intensity at the conversational level Patient demonstrates good understanding of plan of care and treatment. The above goals and plan of care were discussed and agreed upon by patient/family. For further details regarding this patient refer to the Speech Therapy electronically documented visit dated 05/03/2025. Provider Attestation I have reviewed the treatment plan for Saloni Hicks, CCF# [id number] for the period of 05/03/25 -- 06/02/25, established on 05/03/2025. Signature certifies the need for therapy services. [facility] [id number] 05-03-2025 [id number] HNO ID: [id number] Author: JENNIFER LOCKETT OTR/L Service: ? Author Type: Occupational Therapist Type: [id number] Filed: 05/03/2025 15:46 Note Text: [facility] Rehabilitation [facility] Therapy Occupational Therapy Plan of Care Certification Patient Name: Saloni Hicks : 1950 CCF #: [id number] Date: 05/03/2025 To: Darren Mercado MD From Therapist: OCTAVIA Dixon RE: Patient Certification/ Recertification Your review, approval and electronic signature are required in order to comply with Payor: [employer] MEDICARE / Plan: [employer] MEDICARE PPO / Product Type: PPO / regulations. The identified Occupational Therapy PLAN OF CARE for the patient is as follows: M47.12 Cervical spondylosis with myelopathy G62.9 Neuropathy M54.16 Radiculopathy, lumbar region PLAN OF CARE: Assessment: Saloni Hicks presents with diagnosis of neuropathy that interferes with gripping, pinching, twisting, pulling, pushing, carrying, weight bearing . The patient presents with impairments in sensation and strength. PROMIS? (Patient-Reported Outcomes Measurement Information System) scores were reviewed and identified as a rehabilitation concern. Prognosis for therapy is . The patient will benefit from skilled therapy services to meet the goals established for this plan of care as noted below. Goals for Episode of Care: established 05/03/25 Patient reported outcome of upper extremity will increase T-score by a minimum 5 points. Patient will report a good understanding of diagnosis and OT recommendations for progression of program. Patient will improve function in Right hand in order to be able to perform basic self-care tasks and home management tasks. Patient will increase Right personal development coach strength equal to L hand so that patient will be able to improve function for home management tasks and light functional tasks. Patient will increase Right pinch equal to L hand so that patient will be able to improve function for home management tasks. Patient will demonstrate or report an increase in Fine Motor Coordination through testing or performance compared to initial evaluation. Patient Goals: Resume normal use of hands Time Frame for Goals and Treatment : 07/26/25 Planned Interventions, Frequency, and Duration: Current Frequency: 1x every other week Duration: 12 weeks Total Number of Visits Planned: 6 Planned Treatment Interventions: Therapeutic exercise (84372), Therapeutic activities (52743), Manual therapy (05921), Self-penitentiary management (33019) PLAN FOR NEXT VISIT:adjust HEP; check symptoms Patient demonstrates good understanding of plan of care and treatment. The above goals and plan of care were discussed and agreed upon by patient/family. For further details regarding this patient refer to the Occupational Therapy electronically documented visit dated 05/03/2025. Provider Attestation I have reviewed the treatment plan for Saloni Hicks, CCF# [id number] for the period of 05/03/25 -- 08/01/25, established on 05/03/2025. Signature certifies the need for therapy services. Normal 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 - estradiol (ESTRACE) 0.01 % (0.1 mg/gram) vaginal cream Insert 1 gram of cream intravaginally at bedtime nightly for 2 weeks, and then twice weekly. Save a pea sized amount to apply externally. - donepezil (ARICEPT) 5 mg tablet Take 1 tablet by mouth daily at bedtime. - gabapentin (NEURONTIN) 100 mg capsule Take 600 mg by mouth once daily. - memantine (NAMENDA) 5 mg tablet Take 5 mg by mouth two times a day. - metFORMIN (GLUCOPHAGE) 500 mg tablet Take 1 tablet by mouth three times daily. - buPROPion XL (WELLBUTRIN XL) 300 mg 24 hr tablet TAKE 1 TABLET EVERY DAY - Omeprazole 40 mg capsule take 1 capsule by mouth once daily - valACYclovir (VALTREX) 500 mg tablet TAKE 1 TABLET EVERY DAY - lisinopril (ZESTRIL, PRINIVIL) 5 mg tablet Take 1 tablet by mouth once daily. - SYNTHROID 175 mcg tablet Take 1 tablet by mouth every Friday and Friday. Normal [facility] CNTHERAPY OT/PT/Speech Visit (LTOT) ---- SALONI HICKS ([id number]) 1950 F Date Time Provider Department 05/03/25 2:15 PM JENNIFER LOCKETT LTROSE MARY Date Time Provider Department Center 05/03/2025 2:15 PM [id number] ERAPRYLMike*LTOT [facility] Reason for Visit: OT EVAL [748] Primary Visit Diagnosis:Decreased personal development coach strength of right hand [R29.898] Other Visit Diagnoses:Cervical spondylosis with myelopathy [M47.12] Neuropathy [G62.9] Allergies As of Date: 05/03/2025 Noted Allergy Reaction SEASONAL ALLERGIES 04/27/2018 14 - Other: See Comments Comments: pollen causes sneezing Date Reviewed: 04/11/2025 Reviewed by: Jeannie Schulz OCCA - Fully Assessed Prescriptions as of 05/03/2025 - buPROPion XL (WELLBUTRIN XL) 150 mg 24 hr tablet Take 150 mg by mouth once daily. - estradiol (ESTRACE) 0.01 % (0.1 mg/gram) vaginal cream Insert 1 gram of cream intravaginally at bedtime nightly for 2 weeks, and then twice weekly. Save a pea sized amount to apply externally. - donepezil (ARICEPT) 5 mg tablet Take 1 tablet by mouth daily at bedtime. - gabapentin (NEURONTIN) 100 mg capsule Take 600 mg by mouth once daily. - memantine (NAMENDA) 5 mg tablet Take 5 mg by mouth two times a day. - metFORMIN (GLUCOPHAGE) 500 mg tablet Take 1 tablet by mouth three times daily. - buPROPion XL (WELLBUTRIN XL) 300 mg 24 hr tablet TAKE 1 TABLET EVERY DAY - Omeprazole 40 mg capsule take 1 capsule by mouth once daily - valACYclovir (VALTREX) 500 mg tablet TAKE 1 TABLET EVERY DAY - lisinopril (ZESTRIL, PRINIVIL) 5 mg tablet Take 1 tablet by mouth once daily. - SYNTHROID 175 mcg tablet Take 1 tablet by mouth every Friday and Friday. Viscosity Inspector: Therapy (PT/OT/Speech/Resp) ID: [id number] 05/03/2025 3:02 PM Author: JENNIFER LOCKETT Signed by JENNIFER LOCKETT OTR/Shira on 05/03/2025 at 3:02 PM Document text: Program_ID:[id number] Access Code: [email or web address] URL: [email or web address] Date: 05-03-2025 Prepared By: Jennifer Lockett Program Notes Exercises - Putty Squeezes - 2 x daily - 7 x weekly - 1 sets - 10 reps - Tip Pinch with Putty - 2 x daily - 7 x weekly - 1 sets - 10 reps - Connors Pinch with Putty - 2 x daily - 7 x weekly - 1 sets - 10 reps Normal [facility] THERAPY NTon 05-03-2025 THERAPY NT HNO ID: [id number] Author: JENNIFER LOCKETT OTR/Shira Service: Occupational Therapy Author Type: Occupational Therapist Type: Therapy (PT/OT/Speech/Resp) Filed: 05/03/2025 15:02 Note Text: Program_ID:[id number] Access Code: [email or web address] URL: [email or web address] Date: 05-03-2025 Prepared By: Jennifer Lockett Program Notes Exercises - Putty Squeezes - 2 x daily - 7 x weekly - 1 sets - 10 reps - Tip Pinch with Putty - 2 x daily - 7 x weekly - 1 sets - 10 reps - Connors Pinch with Putty - 2 x daily - 7 x weekly - 1 sets - 10 reps Normal 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 - estradiol (ESTRACE) 0.01 % (0.1 mg/gram) vaginal cream Insert 1 gram of cream intravaginally at bedtime nightly for 2 weeks, and then twice weekly. Save a pea sized amount to apply externally. - donepezil (ARICEPT) 5 mg tablet Take 1 tablet by mouth daily at bedtime. - gabapentin (NEURONTIN) 100 mg capsule Take 600 mg by mouth once daily. - memantine (NAMENDA) 5 mg tablet Take 5 mg by mouth two times a day. - metFORMIN (GLUCOPHAGE) 500 mg tablet Take 1 tablet by mouth three times daily. - buPROPion XL (WELLBUTRIN XL) 300 mg 24 hr tablet TAKE 1 TABLET EVERY DAY - Omeprazole 40 mg capsule take 1 capsule by mouth once daily - valACYclovir (VALTREX) 500 mg tablet TAKE 1 TABLET EVERY DAY - lisinopril (ZESTRIL, PRINIVIL) 5 mg tablet Take 1 tablet by mouth once daily. - SYNTHROID 175 mcg tablet Take 1 tablet by mouth every Friday and Friday. Normal [facility] CNOVon 04-11-2025 CNOV Office Visit (NRESMD) ---- SALONI HICKS ([id number]) 1950 F Date Time Provider Department 04/11/25 3:00 PM DARREN MERCADO [facility] During your visit today, we recorded the following information about you: Temperature Pulse Blood pressure Weight 99 degrees 85/minute 159/91 62.5 kg Height 1.675 m Darren Mercado MD 07/28/2025 1:29 PM Addendum [facility] - NEW PATIENT EVALUATION Recording using [employer] software for draft documentation of the visit was discussed with the patient/authorized medical device sales representative; all questions welcomed and answered. Patient/authorized medical device sales representative agreed to proceed Referring Provider: Denisha Steiner [address] [facility] [address] Primary Care Provider: Summer Worrell DO [address] [facility] [address] Dear Denisha Steiner: Thank you for referring Ms. Hicks to our clinic today. As you know she is a 75 year old female who is seen in consultation for evaluation of since . Subjective HISTORY OF PRESENT ILLNESS: Saloni is a 75-year-old female with a history of type 2 diabetes mellitus presenting for evaluation of balance issues, memory problems, and neuropathy. Saloni reports a two-year history of memory issues, initially noticed while re-landscaping her tenth house, where she had difficulty remembering plant placements and tasks. She also reports a vva-yc-vcxmo-year history of balance problems, describing an inability to stand for extended periods and a tendency to lean forward while walking. She experiences weakness in her legs and shuffles her steps. She began using a walker six months ago and a walking stick more recently. She does not endorse tremors or shakiness of the hands. She reports numbness in her feet and legs, which she attributes to multiple foot surgeries 30 years ago and her diabetes. She also reports numbness in her right hand, making it difficult to steel pickler objects. She does not endorse numbness in her left hand. She reports numbness in her pelvic area for the past six to eight months, stating, from my waist down to my privates, I can barely feel anything. She also reports tightness in her face, tongue, and throat, stating, I just think my whole face is smaller, and it feels tight. She reports difficulty swallowing and a change in her voice, describing it as tighter. She does not endorse difficulty controlling her bladder. She reports a history of vision problems, stating that she had her vision tested in November and was prescribed new glasses, but she could not see with them. She was told to give them a couple of weeks, but she still could not see with them. She had her vision re-tested, and it was found that her right cornea was definitely disturbed. She was prescribed eye drops for a week, but they did not help. [facility] [place] [facility] and was prescribed more drops. She reports that she does not feel any pain in her eye, stating, I don't feel anything. She reports a history of bladder problems for the past 20 to 30 years, stating that she had a sling procedure three years ago, which fixed the problem until she broke her left femur a year ago in February. She reports that her bladder problems returned after the fracture, stating, everything just kind of pushed everything. She was prescribed a medication that helped, but she could not afford it after the samples ran out. She reports a history of Alzheimer's disease and was prescribed donepezil and memantine by her primary care physician and Jatin. She stopped taking the medications after two weeks due to side effects, stating, I'd rather have Alzheimer's than these dreams and dizziness. She does not endorse acting out her dreams, stating, I had some strange [dreams]. But nothing violent. She reports a history of type 2 diabetes mellitus and does not take insulin. She reports a history of smoking six cigarettes a day and drinking two glasses of wine a week. She does not endorse using recreational drugs. 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 She does not have any children. She reports a family history of diabetes and heart issues in her father, who worked for the [employer], and glaucoma in her mother. Her brother has a history of diabetes, and her sister has a history of obesity and multiple surgeries. She does not endorse a family history of similar walking troubles. Past Diagnostic Results: Imaging - MRI lumbar spine: Conducted at [facility]. Movement Disorders Medications Schedule - as of the start of the visit: Medications Questionnaires ALLERGIES Allergen Reactions Seasonal Allergies Other: See Comments pollen causes sneezing Current Outpatient Medications Medication Sig buPROPion XL (WELLBUTRIN XL) 150 mg 24 hr tablet Take 150 mg by mouth (more content not included)... Normal [facility] CNPNon 04-11-2025 CNPN Telephone (ItsMyURLsN) ---- SALONI HICKS ([id number]) 1950 F Date Time Provider Department 04/11/25 DARREN MERCADO During your visit today, we recorded the following information about you: Mary Rosales 04/11/2025 5:10 PM Signed Called patient to schedule a New Brain Health Consult Appt. for memory loss per staff message and left a message to schedule it as soon as she can near her home location (if it were avaliable) . Allergies As of Date: 04/11/2025 Noted Allergy Reaction SEASONAL ALLERGIES 04/27/2018 14 - Other: See Comments Comments: pollen causes sneezing Date Reviewed: 04/11/2025 Reviewed by: Jeannie Schulz OCCA - Fully Assessed Reason for Visit: Appointment [186] Cmt: Called patient to schedule a New Brain Health Consult Appt. for memory loss per staff message and left a message to schedule it as soon as she can near her home location (if it were avaliable) . Prescriptions as of 04/11/2025 - buPROPion XL (WELLBUTRIN XL) 150 mg 24 hr tablet Take 150 mg by mouth once daily. - estradiol (ESTRACE) 0.01 % (0.1 mg/gram) vaginal cream Insert 1 gram of cream intravaginally at bedtime nightly for 2 weeks, and then twice weekly. Save a pea sized amount to apply externally. - donepezil (ARICEPT) 5 mg tablet Take 1 tablet by mouth daily at bedtime. - gabapentin (NEURONTIN) 100 mg capsule Take 600 mg by mouth once daily. - memantine (NAMENDA) 5 mg tablet Take 5 mg by mouth two times a day. - metFORMIN (GLUCOPHAGE) 500 mg tablet Take 1 tablet by mouth three times daily. - buPROPion XL (WELLBUTRIN XL) 300 mg 24 hr tablet TAKE 1 TABLET EVERY DAY - Omeprazole 40 mg capsule take 1 capsule by mouth once daily - valACYclovir (VALTREX) 500 mg tablet TAKE 1 TABLET EVERY DAY - lisinopril (ZESTRIL, PRINIVIL) 5 mg tablet Take 1 tablet by mouth once daily. - SYNTHROID 175 mcg tablet Take 1 tablet by mouth every Friday and Friday. Problem List As Of Date 04/11/2025 Noted Resolved Controlled type 2 diabetes mellitus without com*05/08/2017 Acquired hypothyroidism [E03.9] 05/08/2017 Diabetic eye exam (HCC) [Z01.00, E11.9] 07/07/2017 GERD without esophagitis [K21.9] 08/20/2017 Herpes simplex infection of genitourinary syste*08/20/2017 Anxiety and depression [F41.9, F32.A] 08/20/2017 Smoker [F17.200] 08/20/2017 Iron deficiency anemia [D50.9] 08/20/2017 Encounter for gynecological examination without*08/20/2017 Type 2 diabetes mellitus with diabetic neuropat*08/20/2017 History of TIA (transient ischemic attack) [Z86*08/20/2017 Vitamin D deficiency [E55.9] 08/21/2017 Chronic seasonal allergic rhinitis [J30.2] 08/21/2017 Osteopenia, senile [M85.80] 08/21/2017 Carotid stenosis, asymptomatic, bilateral [I65.*09/10/2017 Medicare annual wellness visit, subsequent [Z00*02/18/2018 Current use of proton pump inhibitor [Z79.899] 02/18/2018 Essential hypertension [I10] 03/04/2018 Accidental ingestion of caustic alkali [T54.3X1*02/13/2019 02/13/2019 Encounter Status:Closed by MARY ROSALES on 04/11/25 Normal [facility] BACTERIAL VAGINOSIS NAATon 0 03-17-2025 Lactobacillus crispatus+gasseri+watson ii + Gardnerella vaginalis + Atopobium vaginae rRNA MU+probe Ql (Vag fld) Not detected Normal Not detected [facility] Comment on above: Order Comment: Speci men Type: SWABOrdering Facility: [facility] Address: [address] [place] [address] Performed By: #### B VAMP, CVTV ####[facility] [id number] [place] [address] [place] JOAN/TRICHOMONAS NAATon 0 03-17-2025 C. glabrata RNA MU+probe Ql (Vag fld) Not detected Normal Not detected [facility] Comment on above: Order Comment: Speci men Type: SWABOrdering Facility: [facility] Address: [address] [place] [address] Performed By: #### B VAMP, CVTV ####[facility] [id number] [place] [address] [place] Joan sp DNA MU+probe Ql (Vag fld) Not detected Normal Not detected [facility] Comment on above: Order Comment: Speci men Type: SWABOrdering Facility: [facility] Address: [address] [place] [address] Result Comment: The Joan species group target includes C. albicans, C. tropicalis, C. parapsilosis, and C. dubliniensis. Performed By: #### B VAMP, CVTV ####[facility] [id number] [place] [address] [place] T. vaginalis DNA MU+probe Ql (Unsp spec) Not detected Normal Not detected [facility] Comment on above: Order Comment: Speci men Type: SWABOrdering Facility: [facility] Address: [address] [place] [address] Performed By: #### PEG GARCIA ####[facility] [id number] TARYN VELASQUEZ [id number] [place] [address] [place] CNOVon 03-17-2025 CNOV Office Visit (OBGYWM) ---- FABIOLASALONI ([id number]) 1950 F Date Time Provider Department 03/17/25 1:40 PM LAKEISHA LEMONS OBGYWM During your visit today, we recorded the following information about you: Blood pressure Weight Height 110/78 61.9 kg 1.689 m Lakeisha Lemons MD 03/17/2025 5:40 PM Signed Environmental Services Specialist offered: Patient declines. Saloni is a 75 year old who presents for a problem visit with: vaginal irritation with pain, burning and itching. No vaginal bleeding. Small amount of creamy vaginal discharge. Not sexually active. Her vaginal symptoms are constant and bothersome daily. Used vaginal estrogen cream prescribed by her PCP for 3-4 weeks without relief, and stopped after 3-4 weeks. She is unsure of dosage. Has had yeast infections in the past as well. OB History Gravida0 Para0 Term0 Preterm0 AB0 Living0 SAB0 IAB0 Ectopic0 Multiple0 Live Births0 FAMILY HISTORY Problem Relation Age of Onset Cancer Mother Malignant neoplastic disease Heart Father Diabetes Father Diabetes Sister Diabetes Brother SOCIAL HISTORY Social History Tobacco Use Smoking status: Every Day Current packs/day: 0.00 Average packs/day: 1 pack/day for 20.0 years (20.0 ttl pk-yrs) Types: Cigarettes Start date: 09/24/2002 Last attempt to quit: 09/24/2022 Years since quittin.4 Smokeless tobacco: Never Vaping Use Vaping status: Former Substance Use Topics Alcohol use: Yes Alcohol/week: 1.0 - 2.0 standard drink of alcohol Types: 1 - 2 Glasses of Wine (5oz) per week Comment: 1-2 per day Drug use: No REVIEW OF SYSTEMS Abdomen: No abdominal pain, nausea, vomiting, diarrhea, or constipation. Bladder: No dysuria. Allergies and current medication updated:Yes SENSITIVE EXAM: The sensitive examination was discussed with the Patient or Patient's Authorized A&P Technician. As applicable, any other physician, advance practice provider, medical student, or other health professional student that will be observing or involved in the sensitive examination for educational or training purposes was discussed with the Patient or Authorized A&P Technician. The Patient or Authorized A&P Technician has agreed to proceed with the sensitive examination. (Sensitive examination includes inspection and/or palpation of the breasts, pelvis, prostate and anorectal regions). EXAM: BP 110/78 Ht 5' 6.5 (1.69m) Wt 136 lb 6.4 oz (61.9kg) BMI 21.69 kg/(m2). GENERAL: pleasant, female in no apparent distress CHEST: Normal inspiratory effort PELVIC: external genitalia atrophic, normal Bartholin's glands, urethra, [place]'s glands, no vulvar lesions, no cervical lesions, good vaginal support, physiologic discharge present, normal appearing perineal body and perianal region, vaginal atrophy noted BIMANUAL: uterus normal size, shape and consistency, no adnexal masses, and non-tender RECTOVAGINAL: deferred. NEURO: exam grossly non-focal EXTREMITIES: normal ASSESSMENT/PLAN: Vulvovaginal atrophy: Discussed r/b/a vaginal estrogen cream and patient desires to start. Rx sent and discussed proper use. Vaginal discharge: Check BV, yeast. Follow up for annual exam. Lakeisha Lemons DO Medical Decision Making: Problems: Moderate: 1+ chronic illnesses with change Data: Unique test(s) ordered: 2 Risk: Moderate: Drug management Medical Decision Making Level: 4 - Moderate Allergies As of Date: 03/17/2025 Noted Allergy Reaction SEASONAL ALLERGIES 04/27/2018 14 - Other: See Comments Comments: pollen causes sneezing Date Reviewed: 03/17/2025 Reviewed by: Silke Odonnell MA - Fully Assessed Reason for Visit: Well Woman [1463] Primary Visit Diagnosis:Vaginal atrophy [N95.2] Other Visit Diagnoses:Vulvar atrophy [N90.5] Vulvar burning [N94.89] Vaginal dryness [N89.8] Vaginal discharge [N89.8] Order(s):estradiol (ESTRACE) 0.01 % (0.1 mg/gram) vaginal creamInsert 1 gram of cream intravaginally at bedtime nightly for 2 weeks, and then twice weekly. Save a pea sized amount to apply externally.Disp: 42.5 gRfl: 2 BACTERIAL VAGINOSIS NAAT [SQBVAMP] Order #: [id number]. #:[id number] JOAN/TRICHOMONAS NAAT [SQCVTV] Order #: [id number]. #:[id number] Prescriptions as of 03/17/2025 - estradiol (ESTRACE) 0.01 % (0.1 mg/gram) vaginal cream Insert 1 gram of cream intravaginally at bedtime nightly for 2 weeks, and then twice weekly. Save a pea sized amount to apply externally. - donepezil (ARICEPT) 5 mg tablet Take 1 tablet by mouth daily at bedtime. - gabapentin (NEURONTIN) 100 mg capsule Take 600 mg by mouth once daily. - memantine (NAMENDA) 5 mg tablet Take 5 mg by mouth two times a day. - metFORMIN (GLUCOPHAGE) 500 mg tablet Take 1 tablet by mouth three times daily. - buPROPion XL (WELLBUTRIN XL) 300 mg 24 hr tablet TAKE 1 TABLET EVERY DAY - Omeprazole 40 mg c (more content not included)... Normal [facility] CNOVon 02-08-2025 CNOV Office Visit (PONCHO) ---- SALONI HICKS ([id number]) 1950 F Date Time Provider Department 02/08/25 8:00 AM DENISHA STEINER During your visit today, we recorded the following information about you: Pulse Respiration Blood pressure Weight 109/minute 18/minute 135/81 62.1 kg Pastora Donaldson LPN 02/08/2025 10:23 AM Signed 02/07/2025 PROMIS Global Health Physical Health Summary Physical health: Fair Everyday physical activity, ability: Moderately Fatigue: Mild Pain level: 4 General health: Fair Social activities/roles, ability: Fair Physical Health T-Score 39.8 (Fair) Physical Health Percentile 15 PROMIS Global Health Mental Health Summary Quality of life: Fair Mental health (mood,thinking): Fair Social satisfaction: Fair Emotional problems (anxious,depressed) : Sometimes Mental Health T-Score 36.3 (Fair) Mental Health Percentile 9 Percentiles provide an indication of how a patient's score ranks in relation to the [place] general population. > 31st percentile is within normal limits or better *< 31st percentile is at least ? SD worse than population, which may be clinically relevant < 16th percentile is at least 1 SD worse than population and warrants attention 02/07/2025 Sleep Apnea Probability Snores loudly: No Tired, fatigued or sleepy in daytime: Yes Stops breathing or choking/gasping during sleep: No High blood pressure: No Sleep Apnea Probability Score: 27 (Sleep study not recommended) Denisha Steiner PA-C 02/08/2025 10:23 AM Signed [facility] Name: Saloni Hicks Age: [age] year old Gender: female Primary Care Provider: Summer Worrell DO Assessment/Plan: 02/08/2025 - General Neurology, Denisha Steiner PA-C ASSESSMENT ASSESSMENT/PLAN: 1. Paresthesia of skin - ICD9: 782.0, ICD10: R20.2 (primary diagnosis) 2. Generalized weakness - ICD9: 780.79, ICD10: R53.1 Patient with continued paresthesias to the skin, started in the ankles and feet have been constant but will occasionally get intermittent paresthesias elsewhere including the hands and arms. Laboratory workup was unremarkable, previous EMG was negative per patient report. Discussed obtaining skin biopsy and patient was initially agreeable but would no longer like to get this test done. Follow with pain management for this discomfort, recent increase in gabapentin improved symptoms significantly. Encouraged follow-up with pain management for this. Did discuss that neuropathy could be contributing to imbalance issues and may be contributing to falls. Patient using rollator now to ambulate but still having frequent falls. 3. Frequent falls - ICD9: V15.88, ICD10: R29.6 Likely multifactoral, notes history of significant stenosis in the spine, previously seen by spine at an outside clinic but was told she is not a surgical candidate. Also with signs of neuropathy on exam, deferring any further testing for this. 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 Encouraged continuing physical therapy, using a rollator and sitting down should she ever feel lightheaded. Patient agrees and understands. 4. NPH (normal pressure hydrocephalus) (HCC) - ICD9: 331.5, ICD10: G91.2 5. Memory loss Patient with progressive memory loss as well with MoCA today of concerning for mild dementia. MRI of the brain showing concerns of possible NPH as well as atrophy throughout the brain. Currently on memantine through primary care, has been on this for about a month and does not feel any benefit with it. Tolerating it well without any significant abnormalities. However, discussed starting Aricept as this may also be beneficial for gait as well. No history of arrhythmia or cardiac abnormality. Did retake her pulse today and it was around 80 bpm. Discussed other side effects including nightmares and weight loss and encourage patient to keep an eye on her appetite. Will start Aricept at 5 mg and titrate up if tolerated in a few months. Did also discuss a referral to neurosurgery but patient and family would like to see how the medication does before seeing a surgeon. In the interim, discussed brain health and increasing physical and cognitive exercise. Patient and family agreeable to treatment plan of care at this time, questions were answered. Patient to follow-up with Dr. Tinoco in 3 months. Denisha Steiner PA-C Encounter Diagnosis ICD-10-CM 1. Paresthesia of skin R20.2 2. Generalized weakness R53.1 3. Frequent falls R29.6 4. NPH (normal pressure hydrocephalus) (HCC) G91.2 CONSULT TO NEUROSURGERY Return in about 4 months (around 06/10/2025). Chart, labs,and relevant images reviewed. Chief Complaint:Patient presents with: Follow Up Chart Review: Last Filed Values Date of Most Recent Assessment and Plan (more content not included)... Normal [facility] Brain WO contraston 01-12 IMPRESSION: No evidence of an acute intracranial process. Ventriculomegaly which could relate to volume loss and/or communicating hydrocephalus such as NPH in the appropriate clinical setting. Oil Agent: SAADIA Transcribe Date/Time: Jan 12 2025 2:38P Dictated by : RIZWAN SALDANA MD This examination was interpreted and the report reviewed and electronically signed by: RIZWAN SALDANA MD on Jan 12 2025 2:42PM [facility] DIVISION OF RADIOLOGY * * *Final Report* * * DATE OF EXAM: Jan 12 2025 2:19PM [facility] 0294 - MRI BRAIN WO IVCON / PROCEDURE REASON: multiple diagnoses * * * * Physician Interpretation * * * * EXAMINATION: MRI BRAIN WO IVCON CLINICAL HISTORY: Cerebral infarction, unspecified mechanism (HCC). Frequent falls TECHNIQUE: Routine noncontrast MRI protocol including diffusion images. MQ: MRBWO_2 COMPARISON: None. RESULT: Acute Change: There is no evidence of restricted diffusion to suggest an acute infarct. Hemorrhage: No evidence of prior parenchymal hemorrhage on the susceptibility weighted images. Mass Lesion/ Mass Effect: No evidence of an intracranial mass or extra-axial fluid collection. No significant mass effect. Chronic Change: Scattered patchy areas of increased T2 and FLAIR signal are present in the supratentorial white matter which is a nonspecific finding but likely represents mild chronic microvascular ischemia. Parenchyma: Mild to moderate generalized volume loss. Ventricles: Enlargement of the lateral/third ventricles. Mild DESH morphology. Callosal angle 67 degrees. Chaidez index 0.33. Skull Base: Hypothalamic and pituitary region are grossly normal. Craniocervical junction is normal. No significant marrow replacement process. Vasculature: Major intracranial arterial structures, and dural venous sinuses show typical flow void, suggesting patency by spin echo criteria. Other: The visualized paranasal sinuses and mastoid air cells are clear. Mild nonspecific heterogeneity of the parotid gland without a discrete mass. Orbits are unremarkable. DIVISION OF RADIOLOGY Provider, [facility] [place] - 01/12/2025 * * *Final Report* * * DATE OF EXAM: Jan 12 2025 2:19PM [facility] 0294 - MRI BRAIN WO IVCON / PROCEDURE REASON: multiple diagnoses * * * * Physician Interpretation * * * * EXAMINATION: MRI BRAIN WO IVCON CLINICAL HISTORY: Cerebral infarction, unspecified mechanism (HCC). Frequent falls TECHNIQUE: Routine noncontrast MRI protocol including diffusion images. MQ: MRBWO_2 COMPARISON: None. RESULT: Acute Change: There is no evidence of restricted diffusion to suggest an acute infarct. Hemorrhage: No evidence of prior parenchymal hemorrhage on the susceptibility weighted images. Mass Lesion/ Mass Effect: No evidence of an intracranial mass or extra-axial fluid collection. No significant mass effect. Chronic Change: Scattered patchy areas of increased T2 and FLAIR signal are present in the supratentorial white matter which is a nonspecific finding but likely represents mild chronic microvascular ischemia. Parenchyma: Mild to moderate generalized volume loss. Ventricles: Enlargement of the lateral/third ventricles. Mild DESH morphology. Callosal angle 67 degrees. Chaidez index 0.33. Skull Base: Hypothalamic and pituitary region are grossly normal. Craniocervical junction is normal. No significant marrow replacement process. Vasculature: Major intracranial arterial structures, and dural venous sinuses show typical flow void, suggesting patency by spin echo criteria. Other: The visualized paranasal sinuses and mastoid air cells are clear. Mild nonspecific heterogeneity of the parotid gland without a discrete mass. Orbits are unremarkable. IMPRESSION IMPRESSION: No evidence of an acute intracranial process. Ventriculomegaly which could relate to volume loss and/or communicating hydrocephalus such as NPH in the appropriate clinical setting. Oil Agent: SAADIA Transcribe Date/Time: Jan 12 2025 2:38P Dictated by : RIZWAN SALDANA MD This examination was interpreted and the report reviewed and electronically signed by: RIZWAN SALDANA MD on Jan 12 2025 2:42PM [facility] Radiology Study observation (narrative) Lila [facility] MR Brain WO contrastOrdered By: Ccf Provider on 01-12-2025 [facility] MRI BRAIN WO IVCONon 025 MRI BRAIN WO IVCON * * *Final Report* * * DATE OF EXAM: Jan 12 2025 2:19PM [facility] 0294 - MRI BRAIN WO IVCON / PROCEDURE REASON: multiple diagnoses * * * * Physician Interpretation * * * * EXAMINATION: MRI BRAIN WO IVCON CLINICAL HISTORY: Cerebral infarction, unspecified mechanism (HCC). Frequent falls TECHNIQUE: Routine noncontrast MRI protocol including diffusion images. MQ: MRBWO_2 COMPARISON: None. RESULT: Acute Change: There is no evidence of restricted diffusion to suggest an acute infarct. Hemorrhage: No evidence of prior parenchymal hemorrhage on the susceptibility weighted images. Mass Lesion/ Mass Effect: No evidence of an intracranial mass or extra-axial fluid collection. No significant mass effect. Chronic Change: Scattered patchy areas of increased T2 and FLAIR signal are present in the supratentorial white matter which is a nonspecific finding but likely represents mild chronic microvascular ischemia. Parenchyma: Mild to moderate generalized volume loss. Ventricles: Enlargement of the lateral/third ventricles. Mild DESH morphology. Callosal angle 67 degrees. Chaidez index 0.33. Skull Base: Hypothalamic and pituitary region are grossly normal. Craniocervical junction is normal. No significant marrow replacement process. Vasculature: Major intracranial arterial structures, and dural venous sinuses show typical flow void, suggesting patency by spin echo criteria. Other: The visualized paranasal sinuses and mastoid air cells are clear. Mild nonspecific heterogeneity of the parotid gland without a discrete mass. Orbits are unremarkable. IMPRESSION: No evidence of an acute intracranial process. Ventriculomegaly which could relate to volume loss and/or communicating hydrocephalus such as NPH in the appropriate clinical setting. Oil Agent: SAADIA Transcribe Date/Time: Jan 12 2025 2:38P Dictated by : RIZWAN SALDANA MD This examination was interpreted and the report reviewed and electronically signed by: RIZWAN SALDANA MD on Jan 12 2025 2:42PM EST [id number] ACN Normal [facility] Eliud 01-11-2025 ELIZABETHN Telephone ([place]) ---- SALONI HICKS ([id number]) 1950 F Date Time Provider Department 01/11/25 DENISHA STEINER During your visit today, we recorded the following information about you: Alpa Peralta RN 01/11/2025 10:24 AM Signed Patient calls to report that she had an MRI of her brain done at [facility] in May of 2023. Patient asking if she would still need to have the current ordered MRI completed on 01/12/2025. Patient has results if needs to drop them off she will. Please call her back at [phone]. AQUILES Mejia Jessica, LPN 01/12/2025 1:43 PM Signed Pt is having MRI done. Pastora Donaldson LPN Allergies As of Date: 01/11/2025 Noted Allergy Reaction SEASONAL ALLERGIES 04/27/2018 14 - Other: See Comments Comments: pollen causes sneezing Date Reviewed: 01/04/2025 Reviewed by: Denisha Steiner PA-C - Fully Assessed Reason for Visit: Patient Update [1234] Prescriptions as of 01/12/2025 - gabapentin (NEURONTIN) 100 mg capsule Take 600 mg by mouth once daily. - memantine (NAMENDA) 5 mg tablet Take 5 mg by mouth two times a day. - metFORMIN (GLUCOPHAGE) 500 mg tablet Take 1 tablet by mouth three times daily. - buPROPion XL (WELLBUTRIN XL) 300 mg 24 hr tablet TAKE 1 TABLET EVERY DAY - Omeprazole 40 mg capsule take 1 capsule by mouth once daily - valACYclovir (VALTREX) 500 mg tablet TAKE 1 TABLET EVERY DAY - lisinopril (ZESTRIL, PRINIVIL) 5 mg tablet Take 1 tablet by mouth once daily. - SYNTHROID 175 mcg tablet Take 1 tablet by mouth every Friday and Friday. Problem List As Of Date 01/11/2025 Noted Resolved Controlled type 2 diabetes mellitus without com*05/08/2017 Acquired hypothyroidism [E03.9] 05/08/2017 Diabetic eye exam (HCC) [Z01.00, E11.9] 07/07/2017 GERD without esophagitis [K21.9] 08/20/2017 Herpes simplex infection of genitourinary syste*08/20/2017 Anxiety and depression [F41.9, F32.A] 08/20/2017 Smoker [F17.200] 08/20/2017 Iron deficiency anemia [D50.9] 08/20/2017 Encounter for gynecological examination without*08/20/2017 Type 2 diabetes mellitus with diabetic neuropat*08/20/2017 History of TIA (transient ischemic attack) [Z86*08/20/2017 Vitamin D deficiency [E55.9] 08/21/2017 Chronic seasonal allergic rhinitis [J30.2] 08/21/2017 Osteopenia, senile [M85.80] 08/21/2017 Carotid stenosis, asymptomatic, bilateral [I65.*09/10/2017 Medicare annual wellness visit, subsequent [Z00*02/18/2018 Current use of proton pump inhibitor [Z79.899] 02/18/2018 Essential hypertension [I10] 03/04/2018 Accidental ingestion of caustic alkali [T54.3X1*02/13/2019 02/13/2019 Encounter Status:Closed by PASTORA DONALDSON on 01/12/25 Normal [facility] CNOVon 01-04-2025 CNOV Office Visit ([place]) ---- SALONI HICKS ([id number]) 1950 F Date Time Provider Department 01/04/25 12:45 PM DENISHA STEINER During your visit today, we recorded the following information about you: Pulse Respiration Blood pressure Weight 85/minute 18/minute 144/87 62 kg Denisha Steiner PA-C 01/04/2025 1:51 PM Signed [facility] Name: Saloni Hicks Age: [age] year old Gender: female Primary Care Provider: Summer Worrell DO Consult requested for weakness by . Recommendations will be communicated via shared medical record or US mail. Chief Complaint:New Patient Evaluation 01/04/2025 - General NeurologyDenisha PA-C ASSESSMENT ASSESSMENT/PLAN: 1. Paresthesia of skin - ICD9: 782.0, ICD10: R20.2 (primary diagnosis) 2. Cerebral infarction, unspecified mechanism (HCC) - ICD9: 434.91, ICD10: I63.9 3. Generalized weakness - ICD9: 780.79, ICD10: R53.1 4. Frequent falls - ICD9: V15.88, ICD10: R29.6 Patient with significant worsening paresthesias encompassing her whole body but occasionally exacerbating in the upper extremities unilaterally. Also with generalized weakness causing frequent falls. Previously saw neurology in June 2023 where EMG of the lower extremity was negative, laboratory workup was unremarkable. Did not follow-up but states everything has worsened since, has had multiple falls, estimating about a fall a week. Had a significant fall where she fractured her left femur last February and since she was discharged from rehab her symptoms had worsened. Notes that she has a follow-up with a spinal specialist at an outside clinic at [facility] and was told she had significant degeneration throughout her spine was not a surgical candidate, I do not see these records. Notes that she is never had any brain imaging but at one point was told she had Alzheimer's disease based off of the diagnosis found in some paperwork, patient reports that she is a very poor historian and does not remember many details about this. Overall, unclear etiology for symptoms. Does have some temperature decrease in the left lower extremity, discussed possible small fiber neuropathy and patient would like to proceed with a skin biopsy. Due to multiple neurologic concerns and poor history do feel MRI of the brain is appropriate especially reporting some memory concerns as well. Will order MRI of the brain without contrast. Will have patient follow-up after workup. Will also gather information from other outside hospitals to see what has been done. Patient agreeable to treatment plan of care at this time, questions were answered. Patient to follow-up after workup. Denisha Steiner PA-C Encounter Diagnosis ICD-10-CM 1. Paresthesia of skin R20.2 SKIN BIOPSY FOR NEUROPATHY/CNL 2. Cerebral infarction, unspecified mechanism (HCC) I63.9 MRI BRAIN WO IVCON 3. Generalized weakness R53.1 4. Frequent falls R29.6 MRI BRAIN WO IVCON No follow-ups on file. Chart, labs,and relevant images reviewed. HPI: Saw neuro on 07/15/23 for gait instability. 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 Regular alcohol use, hx of DM for 35 years. Decreased achilles, ordered labs, EMG and sent to PT. EMG negative. No M protein, had low vitamin d and told to supplement. This is a 75 year old female presenting with worsening weakness and frequent falls. Was seen by neurology about a year and a half (more content not included)... Normal [facility] Dexa Bone Density Studyon Dexa Bone Density Study [facility] [address] [place] [address] Dexa Bone Density Study MR#: [id number] Acct: [id number] Name: SALONI HICKS Rep #: [id number] : 1950 F 74 From: Michael verma MD PCP: Dr. Summer Worrell, DO Status: REG CLI Study: Dexa Bone Density Study Date of Exam: 09/23/24 Exam# [id number] Ordering Dr: Summer Worrell DO -[id number] STUDY: DUAL ENERGY X-RAY ABSORPTIOMETRY / DXA REASON FOR EXAM: Female, 74 years old. 733.00OsteoporosisB ONE DENSITY REASON FOR EXAM TECHNIQUE: Bone Mineral Density (BMD) measurements of lumbar spine and right hip were obtained. COMPARISON: Comparison is made with prior study dated September 06, 2021. FINDINGS: Lumbar Spine (L1-L4): g/cm2 (0.992) / T-score (-0.2) / Z-score (2.1) Findings are suggestive of normal bone density with a low fracture risk. Right Femur Total: g/cm2 (0.730) / T-score (-1.7) / Z-score (0.0) Right Femoral Neck: g/cm2 (0.602) / T-score (-2.2) / Z-score (-0 point) The T-Scores on the most recent prior examination were: Lumbar Spine (L1-L4): There has been improvement of bone density since the previous examination. Right Femur Total: which represents a worsening of 6.8%. BD/Dexa Bone Density Study IMPRESSION: The patient is considered osteopenic as outlined below according to World [place] Organization (WHO) criteria with a high fracture risk. There has been worsening of bone density since the previous examination. Reference Information: The T-score is the number of standard deviations above or below the standard which is normal for young adults at their peak bone mineral density. The World Health Organization (WHO) interprets the T-scores as follows: Above -1 Normal bone density Between -1 and -2.5 Osteopenia Equal to / or below -2.5 Osteoporosis As a practical clinical guideline, osteopenia may be graded as follows: Mild -1 through -1.5 Moderate -1.6 through -2.0 Severe -2.1 through -2.4 The Z-score is the number of standard deviations above or below age-matched controls. A Z-score of less than -1.5 would be considered abnormal. References: 1. NIH Osteoporosis and Related Bone Diseases www osteo.org 2. International Society for Clinical Densitometry www iscd.org 3. National Osteoporosis Foundation www nof.org Electronically Signed: Michael Abdul MD at 13:59 EST , CC: Dr. Summer Worrell DO Oil Agent: Signed Normal [facility] Inital Evaluation (1) - PTon 09-08-2024 Inital Evaluation (1) - PT [facility] Physical Therapy [facility] [address] [place] [address]. [address] [place] [address] / REHABILITATION SERVICES INITIAL EVALUATION MR#: [id number] Acct: [id number] Name: SALONI HICKS Rep #: [id number] : 1950 74 From: Yoel Duarte DPT, GERRY, CSCS Referring Dr.: Dr. Summer Worrell DO Status: RE G RCR Insurance: [employer] MEDICARE PPO SELF PAY INSURANCE Patient's Visit Information Visit Information Visit Information: SALONI HICKS is a 74 year old F referred to Physical Therapy by Dr. Summer Worrell DO with a diagnosis of Gait instability. Date of Evaluation: 09/08/24 Physical Therapist: Yoel Duarte DPT, GERRY, CSCS Visit Plan Frequency: 2-3x /Week Duration: 4-6 Weeks Plan: 2-3x/week for 4-6 weeks IE: balance HO reviewed adn asked to use wh walker at all times and take bigger steps, get sliders for back and benfits of step up with rail as HEP, also need to clear clutter from hallways for safety. Treat with combination of LE strength(home and gym as patient will join count includes the [facility]), weight shift and balance, and fucnitonal strength exercises to steps to I with pics. 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 Everyday is different but balance is off very often and some days better than others. Sometimes leg hurt like crazy and other times not bad. L knee has problems and had x ray and lots of OA. 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 Had this problem for long time and been here 2x for the same thing which helps. Therapy worked short duration and felt balance was better. Regular exercise is not happening. Will see Dr. Roach for pain management for overall pain. Had to sell house and gets depressed at times. Sleep is not great and she is not sure why.Not painful.. Employed: NO Basic ADLs are getting done slowly, has to hold on and be careful Lives alone with no steps. Hobbies: landscaping, but cannot. Spends day working on organizing house. Avoids cleaning b/c has to be so careful. Some days no AD needed, some days inclduing today uses wh walker or rollator aor canes and has them all Objective Objective: Walks with wh [id number] with short steps into PT veering R due to walker friction on back legs. Transfers slow but I bed and chair. Steps reciprocal with one rail, no confidence but can do it, slightly weaker on R LE. LE AROM WFL but stiff and slow, ev/inv coordination challenging but strength 4-, PF/DF strength 4, knee flex/ext 3+ B, hip abd and ext 3+ B. Very stiff in HS and quads holding subconsciously but can relax with VC. reflexes 2./3 patella and achilles B. Sensation WNl to gross lgiht touch in B LE coordintaion and positional awareness at ankles is poor to reciprocal heel tap and heel to cobb test. neuropathy noticeable in gait pattern lacking weight shift and short steps with poor confidence of weight shift and foot placement. Funcitonal weakness on steps R>L and using arms to get out of chair. Balance/Special Test Scores Functional Gait Assessment Score: 19 % Disability: 36.6700 Lower Extremity Functional Score: 30 Goals Goal 1:: FGA score 22/30 to reduce fall risk Goal Time Frame: 4-6 Weeks Goal 2:: Steps reciprocally with one rail without hesitation and no confidence boost needed Goal Time Frame: 4-6 Weeks Goal 3:: I appropriate HEP for strength LE, weight shift, balance and funcitonal at home Goal Time Frame: 4-6 Weeks Goal 4:: LEFS 40 Goal Time Frame: 4-6 Weeks Goal 5:: Pt feel mobility improved by 50% Goal Time Frame: 4-6 Weeks Rehabilitation Potential Physical Therapy Diagnosis: neuropathy creating weight shift deficits and balance instabilities with weakness. Rehabilitation Potential: Fair Anticipated Interventions Patient/Client Instruction: Educate patient on: Condition and Plan of Care For the Purpose of:: To increase ROM, To improve nutrient delivery to tissue, To improve muscle performance and motor function and To increase tolerance to activity/condition/ position Therapeutic Exercise to Include: Strength training, Balance training, Flexibilty training, Gait and locomotor training and Active ROM For the Purpose of:: To increase ROM, To improve nutrient delivery to tissue, To increase oxygenation perfusion, To improve muscle performance and motor function, To increase tolerance to activity/condition/ position and To improve gait and locomotor functions Text: Thank you for the opportunity to evaluate your patient. For Medicare and Medicare HMO plans, please review the plan of care and approve it. It will need to be FAXED BACK to us at [phone] for Medicare purposes. (more content not included)... Normal [facility] Thin prep Papanicolaou smear with manual screeningOrdered By: Moise Glez on 03-29-2024 Thin prep Papanicolaou smear with manual screening 135 mg/dL 74-106 [facility] Comment on above: MANAGEMENT OF PATIEN T CARE PER NURSING PROTOCOL Absolute lymphocyte countOrd ered By: Moise Glez on 03-26-2024 Lymphocytes Auto (Unsp spec) [#/Vol] 1.19 10*3/uL 0.83-4.51 [facility] Automated lymphocyte count a s percentage of total leukocytesOrdered By: Moise Glez on 03-26-2024 Lymphocytes/100 WBC Auto (Unsp spec) 13.4 % 19-41 [facility] Basophil percentageOrdered B y: Moise Glez on 03-26-2024 Basophils/100 WBC (Bld) 0.5 % 0-1 [facility] Chloride [Moles/Vol] 105 mmol/L 98-107 [facility] Eosinophils/100 WBC (Bld) 4.3 % 0-5 [facility] Glucose [Mass/Vol] 142 mg/dL 74-[address] [facility] Comment on above: Fasting Glucose resu lt greater than or equal to 126 mg/dL suggests DIABETES MELLITUS per A.D.A. criteria. Hemoglobin (Bld) [Mass/Vol] 11.0 g/dL 12.0-15.0 [facility] Monocytes/100 WBC (Bld) 7.1 % 0-10 [facility] Neutrophils (Bld) [#/Vol] 6.6 10*3/uL 2.0-7.7 [facility] Neutrophils/100 WBC (Bld) 74.4 % 47-70 [facility] Potassium [Moles/Vol] 3.7 mmol/L 3.5-5.1 [facility] Sodium [Moles/Vol] 138 mmol/L 136-[address] [facility] WBC (Bld) [#/Vol] 8.9 10*3/uL 4.4-11.[address] [facility] Determination of erythrocyte mean corpuscular volume (MCV)Ordered By: Moise Glez on 03-26-2024 MCV (RBC) [Entitic vol] 102.7 fL 81-99 [facility] Erythrocyte distribution wid th ratioOrdered By: Moise Glez on 03-26-2024 Erythrocyte distribution width (RBC) [Ratio] 16.5 % 11.6-14.6 [facility] Erythrocyte distribution wid th standard deviationOrdered By: Moise Glez on 03-26-2024 Erythrocyte distribution width (RBC) [Entitic vol] 62.0 fL 35.1-43.9 [facility] Hematocrit Auto (Bld) [Volum e fraction]Ordered By: Moise Glez on 03-26-2024 Hematocrit (Bld) [Volume fraction] 34.5 % 37-47 [facility] Immature granulocytes/100 WB C Auto (Bld)Ordered By: Moise Glez on 03-26-2024 Immature granulocytes/100 WBC (Bld) 0.300 % 0.0-0.9 [facility] Comment on above: IG% - Immature Granu locytes (promyelocytes, myelocytes and metamyelocytes) > 1% indicates that a LEFT SHIFT is Present. Laboratory - Chemistry and C hemistry - challengeOrdered By: Moise Glez on 03-26-2024 CO2 [Moles/Vol] 28.0 mmol/L 21.0-32.0 [facility] Urea nitrogen/Creatinine [Mass ratio] 22.2 mg/mg 10-20 [facility] Laboratory - Hematology and Cell countsOrdered By: Moise Glez on 03-26-2024 MCH (RBC) [Entitic mass] 32.7 pg 27.0-32.0 [facility] MCHC (RBC) [Mass/Vol] 31.9 g/dL [facility] Nucleated RBC/100 WBC (Bld) [Ratio] 0 % 0-5 [facility] Platelet mean volume (Bld) [Entitic vol] 8.7 fL 6.2-12.0 [facility] Platelets (Bld) [#/Vol] 368 10*3/uL 150-450 [facility] No Panel InformationOrdered By: Moise Glez on 03-26-2024 Estimated Creatinine Clearance Calc 44.15 ml/min [facility] Estimated GFR (MDRD) Amer 64 mL/min >60 [facility] Comment on above: GFR Calc Estimated GFR (MDRD) Non-Af Amer 53 mL/min >60 [facility] Comment on above: Non- GFR Calc RBC Auto (Bld) [#/Vol]Ordere d By: Moise Glez on 03-26-2024 RBC (Bld) [#/Vol] 3.36 10*6/uL 4.2-5.4 [facility] Serum or plasma calcium josué urement (mass/volume)Ordered By: Moise Glez on 03-26-2024 Calcium [Mass/Vol] 9.0 mg/dL 8.5-10.1 [facility] Serum or plasma creatinine m easurement (mass/volume)Ordered By: Moise Glez on 03-26-2024 Creatinine [Mass/Vol] 1.08 mg/dL 0.55-1.02 [facility] Comment on above: The validity of the calculated GFR & GFRAA in patients over 70 years has not been determined. Clinical correlation is essential. Serum or plasma urea nitroge n measurement (mass/volume)Ordered By: Moise Glez on 03-26-2024 Urea nitrogen [Mass/Vol] 24 mg/dL 7-18 [facility] Thin prep Papanicolaou smear with manual screeningOrdered By: Moise Glez on 03-26-2024 Thin prep Papanicolaou smear with manual screening 5 5-15 [facility] Absolute lymphocyte countOrd ered By: [facility] 03-19-[facility]24 Lymphocytes Auto (Unsp spec) [#/Vol] 1.25 10*3/uL 0.83-4.51 [facility] Automated lymphocyte count a s percentage of total leukocytesOrdered By: Moise Glez on 03-19-2024 Lymphocytes/100 WBC Auto (Unsp spec) 13.7 % 19-41 [facility] Basophil percentageOrdered B y: Moise Glez on 03-19-2024 Basophils/100 WBC (Bld) 0.5 % 0-1 [facility] Chloride [Moles/Vol] 105 mmol/L 98-107 [facility] Eosinophils/100 WBC (Bld) 3.8 % 0-5 [facility] Glucose [Mass/Vol] 139 mg/dL 74-[address] [facility] Comment on above: Fasting Glucose resu lt greater than or equal to 126 mg/dL suggests DIABETES MELLITUS per A.D.A. criteria. Hemoglobin (Bld) [Mass/Vol] 11.2 g/dL 12.0-15.0 [facility] Monocytes/100 WBC (Bld) 7.7 % 0-10 [facility] Neutrophils (Bld) [#/Vol] 6.7 10*3/uL 2.0-7.7 [facility] Neutrophils/100 WBC (Bld) 73.0 % 47-70 [facility] Potassium [Moles/Vol] 4.1 mmol/L 3.5-5.1 [facility] Sodium [Moles/Vol] 135 mmol/L 136-[address] [facility] WBC (Bld) [#/Vol] 9.1 10*3/uL 4.4-11.[address] [facility] Determination of erythrocyte mean corpuscular volume (MCV)Ordered By: Moise Glez on 03-19-2024 MCV (RBC) [Entitic vol] 99.7 fL 81-99 [facility] Erythrocyte distribution wid th ratioOrdered By: Moise Glez on 03-19-2024 Erythrocyte distribution width (RBC) [Ratio] 16.5 % 11.6-14.6 [facility] Erythrocyte distribution wid th standard deviationOrdered By: Moise Glez on 03-19-2024 Erythrocyte distribution width (RBC) [Entitic vol] 59.0 fL 35.1-43.9 [facility] Hematocrit Auto (Bld) [Volum e fraction]Ordered By: Moise Glez on 03-19-2024 Hematocrit (Bld) [Volume fraction] 34.7 % 37-47 [facility] Immature granulocytes/100 WB C Auto (Bld)Ordered By: Moise Glez 03-19-2024 Immature granulocytes/100 WBC (Bld) 1.300 % 0.0-0.9 [facility] Comment on above: IG% - Immature Granu locytes (promyelocytes, myelocytes and metamyelocytes) > 1% indicates that a LEFT SHIFT is Present. Laboratory - Chemistry and C hemistry - challengeOrdered By: Moise Glez 03-19-2024 CO2 [Moles/Vol] 25.0 mmol/L 21.0-32.0 [facility] Urea nitrogen/Creatinine [Mass ratio] 27.4 mg/mg 10-20 [facility] Laboratory - Hematology and Cell countsOrdered By: Moise Glez 03-19-2024 MCH (RBC) [Entitic mass] 32.2 pg 27.0-32.0 [facility] MCHC (RBC) [Mass/Vol] 32.3 g/dL 32-36 [facility] Nucleated RBC/100 WBC (Bld) [Ratio] 0 % 0-5 [facility] Platelet mean volume (Bld) [Entitic vol] 8.9 fL 6.2-12.0 [facility] Platelets (Bld) [#/Vol] 334 10*3/uL 150-450 [facility] No Panel InformationOrdered By: Moise Glez on 03-19-2024 Estimated Creatinine Clearance Calc 41.02 ml/min [facility] Estimated GFR (MDRD) Amer 58 mL/min >60 [facility] Comment on above: GFR Calc Estimated GFR (MDRD) Non-Af Amer 48 mL/min >60 [facility] Comment on above: Non- GFR Calc RBC Auto (Bld) [#/Vol]Ordere d By: Moise Glez on 03-19-2024 RBC (Bld) [#/Vol] 3.48 10*6/uL 4.2-5.4 [facility] Serum or plasma calcium josué urement (mass/volume)Ordered By: Moise Glez on 03-19-2024 Calcium [Mass/Vol] 8.9 mg/dL 8.5-10.[address] [facility] Serum or plasma creatinine m easurement (mass/volume)Ordered By: Moise Glez on 03-19-2024 Creatinine [Mass/Vol] 1.17 mg/dL 0.55-1.02 [facility] Comment on above: The validity of the calculated GFR & GFRAA in patients over 70 years has not been determined. Clinical correlation is essential. Serum or plasma urea nitroge n measurement (mass/volume)Ordered By: Moise Glez on 03-19-2024 Urea nitrogen [Mass/Vol] 32 mg/dL 7-18 [facility] Thin prep Papanicolaou smear with manual screeningOrdered By: Jared Wells on 03-19-2024 Thin prep Papanicolaou smear with manual screening 151 mg/dL 74-106 [facility] Comment on above: MANAGEMENT OF PATIEN T CARE PER NURSING PROTOCOL Thin prep Papanicolaou smear with manual screeningOrdered By: Moise Glez on 03-19-2024 Thin prep Papanicolaou smear with manual screening 5 5-15 [facility] Thin prep Papanicolaou smear with manual screeningOrdered By: Moise Glez on 03-18-2024 Thin prep Papanicolaou smear with manual screening 129 mg/dL 74-106 [facility] Comment on above: MANAGEMENT OF PATIEN T CARE PER NURSING PROTOCOL Iron measurement (mass/mass) Ordered By: Moise Glez on 03-17-2024 Iron (Unsp spec) [Mass/Mass] 62 ug/dL 50-170 [facility] Lower GI hemoglobin IA Ql (S tl)Ordered By: Moise Glez on 03-17-2024 Stool Occult Blood (LOTTIE) Positive [facility] No Panel InformationOrdered By: Moise Glez on 03-17-2024 Total Iron Binding Capacity 337 ug/dL 250-450 [facility] Serum or plasma iron saturat ion measurement (mass fraction)Ordered By: Moise Glez on 03-17-2024 Iron saturation [Mass fraction] 18.4 % 15.0-55.0 [facility] Thin prep Papanicolaou smear with manual screeningOrdered By: Moise Glez on 03-13-2024 Thin prep Papanicolaou smear with manual screening 142 mg/dL 74-106 [facility] Comment on above: MANAGEMENT OF PATIEN T CARE PER NURSING PROTOCOL Absolute lymphocyte countOrd ered By: Moise Glez on 03-12-2024 Lymphocytes Auto (Unsp spec) [#/Vol] 0.89 10*3/uL 0.83-4.51 [facility] Automated lymphocyte count a s percentage of total leukocytesOrdered By: Moise Glez on 03-12-2024 Lymphocytes/100 WBC Auto (Unsp spec) 12.8 % 19-41 [facility] Basophil percentageOrdered B y: Moise Glez on 03-12-2024 Basophils/100 WBC (Bld) 0.3 % 0-1 [facility] Chloride [Moles/Vol] 110 mmol/L 98-107 [facility] Eosinophils/100 WBC (Bld) 6.6 % 0-5 [facility] Glucose [Mass/Vol] 161 mg/dL 74-[address] [facility] Comment on above: Fasting Glucose resu lt greater than or equal to 126 mg/dL suggests DIABETES MELLITUS per A.D.A. criteria. Hemoglobin (Bld) [Mass/Vol] 7.4 g/dL 12.0-15.0 [facility] Monocytes/100 WBC (Bld) 8.3 % 0-10 [facility] Neutrophils (Bld) [#/Vol] 5.0 10*3/uL 2.0-7.7 [facility] Neutrophils/100 WBC (Bld) 71.3 % 47-70 [facility] Potassium [Moles/Vol] 3.6 mmol/L 3.5-5.1 [facility] Sodium [Moles/Vol] 140 mmol/L 136-[address] [facility] WBC (Bld) [#/Vol] 7.0 10*3/uL 4.4-11.[address] [facility] Determination of erythrocyte mean corpuscular volume (MCV)Ordered By: Moise Glez on 03-12-2024 MCV (RBC) [Entitic vol] 105.9 fL 81-99 [facility] Erythrocyte distribution wid th ratioOrdered By: Moise Glez on 03-12-2024 Erythrocyte distribution width (RBC) [Ratio] 13.6 % 11.6-14.6 [facility] Erythrocyte distribution wid th standard deviationOrdered By: Moise Newton on 03-12-2024 Erythrocyte distribution width (RBC) [Entitic vol] 52.1 fL 35.1-43.9 [facility] Hematocrit Auto (Bld) [Volum e fraction]Ordered By: Moise Glez on 03-12-2024 Hematocrit (Bld) [Volume fraction] 23.2 % 37-47 [facility] Immature granulocytes/100 WB C Auto (Bld)Ordered By: Moise lGez 03-12-2024 Immature granulocytes/100 WBC (Bld) 0.700 % 0.0-0.9 [facility] Comment on above: IG% - Immature Granu locytes (promyelocytes, myelocytes and metamyelocytes) > 1% indicates that a LEFT SHIFT is Present. Laboratory - Chemistry and C hemistry - challengeOrdered By: Moise Glez 03-12-2024 CO2 [Moles/Vol] 27.0 mmol/L 21.0-32.0 [facility] Urea nitrogen/Creatinine [Mass ratio] 25.7 mg/mg 10-20 [facility] Laboratory - Hematology and Cell countsOrdered By: Moise Glez 03-12-2024 MCH (RBC) [Entitic mass] 33.8 pg 27.0-32.0 [facility] MCHC (RBC) [Mass/Vol] 31.9 g/dL 32-36 [facility] Nucleated RBC/100 WBC (Bld) [Ratio] 0 % 0-5 [facility] Platelet mean volume (Bld) [Entitic vol] 9.6 fL 6.2-12.0 [facility] Platelets (Bld) [#/Vol] 179 10*3/uL 150-450 [facility] No Panel InformationOrdered By: Moise Glez on 03-12-2024 Estimated Creatinine Clearance Calc 49.48 ml/min [facility] Estimated GFR (MDRD) Amer 72 mL/min >60 [facility] Comment on above: GFR Calc Estimated GFR (MDRD) Non-Af Amer 60 mL/min >60 [facility] Comment on above: Non- GFR Calc RBC Auto (Bld) [#/Vol]Ordere d By: Moise Glez on 03-12-2024 RBC (Bld) [#/Vol] 2.19 10*6/uL 4.2-5.4 [facility] Serum or plasma calcium josué urement (mass/volume)Ordered By: Moise Glez on 03-12-2024 Calcium [Mass/Vol] 8.6 mg/dL 8.5-10.[address] [facility] Serum or plasma creatinine m easurement (mass/volume)Ordered By: Moise Glez on 03-12-2024 Creatinine [Mass/Vol] 0.97 mg/dL 0.55-1.02 [facility] Comment on above: The validity of the calculated GFR & GFRAA in patients over 70 years has not been determined. Clinical correlation is essential. Serum or plasma urea nitroge n measurement (mass/volume)Ordered By: Moise Glez on 03-12-2024 Urea nitrogen [Mass/Vol] 25 mg/dL 7-18 [facility] Thin prep Papanicolaou smear with manual screeningOrdered By: Moise Glez on 03-12-2024 Thin prep Papanicolaou smear with manual screening 3 5-15 [facility] Thin prep Papanicolaou smear with manual screeningOrdered By: Yoel Bass on 03-11-2024 Thin prep Papanicolaou smear with manual screening 225 mg/dL 74-106 [facility] Comment on above: MANAGEMENT OF PATIEN T CARE PER NURSING PROTOCOL Thin prep Papanicolaou smear with manual screeningOrdered By: Yoel Bass on 03-10-2024 Thin prep Papanicolaou smear with manual screening 147 mg/dL 74-106 [facility] Comment on above: MANAGEMENT OF PATIEN T CARE PER NURSING PROTOCOL Absolute lymphocyte countOrd ered By: Arya Ayala on 03-08-2024 Lymphocytes Auto (Unsp spec) [#/Vol] 0.89 10*3/uL 0.83-4.51 [facility] Automated lymphocyte count a s percentage of total leukocytesOrdered By: Arya Ayala on 03-08-2024 Lymphocytes/100 WBC Auto (Unsp spec) 9.6 % 19-41 [facility] Basophil percentageOrdered B y: Arya Ayala on 03-08-2024 Basophil percentage 3.5 mg/dL 2.5-4.9 [facility] Basophils/100 WBC (Bld) 0.2 % 0-1 [facility] Bilirubin [Mass/Vol] 0.40 mg/dL 0.20-1.00 [facility] Comment on above: For patients on eltr ombopag therapy, use of Dimension [place] TBIL is not recommended. Chloride [Moles/Vol] 106 mmol/L 98-107 [facility] Eosinophils/100 WBC (Bld) 0.3 % 0-5 [facility] Glucose [Mass/Vol] 185 mg/dL 74-[address] [facility] Comment on above: Fasting Glucose resu lt greater than or equal to 126 mg/dL suggests DIABETES MELLITUS per A.D.A. criteria. Hemoglobin (Bld) [Mass/Vol] 11.3 g/dL 12.0-15.0 [facility] Monocytes/100 WBC (Bld) 7.2 % 0-10 [facility] Neutrophils (Bld) [#/Vol] 7.6 10*3/uL 2.0-7.7 [facility] Neutrophils/100 WBC (Bld) 82.3 % 47-70 [facility] Potassium [Moles/Vol] 4.2 mmol/L 3.5-5.1 [facility] Protein [Mass/Vol] 7.0 g/dL 6.4-8.[address] [facility] Sodium [Moles/Vol] 135 mmol/L 136-[address] [facility] WBC (Bld) [#/Vol] 9.3 10*3/uL 4.4-11.[address] [facility] Determination of erythrocyte mean corpuscular volume (MCV)Ordered By: Arya Ayala on 03-08-2024 MCV (RBC) [Entitic vol] 104.9 fL 81-99 [facility] Erythrocyte distribution wid th ratioOrdered By: Arya Ayala on 03-08-2024 Erythrocyte distribution width (RBC) [Ratio] 13.2 % 11.6-14.6 [facility] Erythrocyte distribution wid th standard deviationOrdered By: Arya Ayala on 03-08-2024 Erythrocyte distribution width (RBC) [Entitic vol] 50.9 fL 35.1-43.9 [facility] Hematocrit Auto (Bld) [Volum e fraction]Ordered By: Arya Ayala on 03-08-2024 Hematocrit (Bld) [Volume fraction] 34.4 % 37-47 [facility] Immature granulocytes/100 WB C Auto (Bld)Ordered By: Arya Ayala on 03-08-2024 Immature granulocytes/100 WBC (Bld) 0.400 % 0.0-0.9 [facility] Comment on above: IG% - Immature Granu locytes (promyelocytes, myelocytes and metamyelocytes) > 1% indicates that a LEFT SHIFT is Present. Laboratory - Chemistry and C hemistry - challengeOrdered By: Arya Ayala on 03-08-2024 Albumin/Globulin [Mass ratio] 1.0 {ratio} 0.9-2.4 [facility] ALP [Catalytic activity/Vol] 77 U/L 45-117 [facility] ALT [Catalytic activity/Vol] 24 U/L 13-56 [facility] CO2 [Moles/Vol] 25.0 mmol/L 21.0-32.0 [facility] Cobalamin (Vitamin B12) [Mass/Vol] 1027 pg/mL 211-911 [facility] Globulin (S) [Mass/Vol] 3.5 g/dL 2.2-4.2 [facility] Magnesium [Mass/Vol] 1.9 mg/dL 1.6-2.6 [facility] Urea nitrogen/Creatinine [Mass ratio] 22.2 mg/mg 10-20 [facility] Laboratory - Hematology and Cell countsOrdered By: Arya Ayala on 03-08-2024 MCH (RBC) [Entitic mass] 34.5 pg 27.0-32.0 [facility] MCHC (RBC) [Mass/Vol] 32.8 g/dL 32-36 [facility] Nucleated RBC/100 WBC (Bld) [Ratio] 0 % 0-5 [facility] Platelet mean volume (Bld) [Entitic vol] 9.1 fL 6.2-12.0 [facility] Platelets (Bld) [#/Vol] 197 10*3/uL 150-450 [facility] No Panel InformationOrdered By: Arya Ayala on 03-08-2024 Estimated Creatinine Clearance Calc 50.52 ml/min [facility] Estimated GFR (MDRD) Amer 74 mL/min >60 [facility] Comment on above: GFR Calc Estimated GFR (MDRD) Non-Af Amer 61 mL/min >60 [facility] Comment on above: Non- GFR Calc No Panel InformationOrdered By: Yoel Bass on 03-08-2024 Vitamin D 25-Hydroxy 36.6 ng/mL [facility] Comment on above: Vitamin D 25(OH) Sta tus Range Deficiency <20 ng/mL (50nmol/L) Insufficiency 20 - 30 ng/mL (50 - 75 nmol/L) Sufficiency 30 - 100 ng/mL (75 - 250 nmol/L) Toxicity >100 ng/mL (>250 nmol/L) RBC Auto (Bld) [#/Vol]Ordere d By: Arya Ayala on 03-08-2024 RBC (Bld) [#/Vol] 3.28 10*6/uL 4.2-5.4 [facility] Serum or plasma calcium josué urement (mass/volume)Ordered By: Arya Ayala on 03-08-2024 Calcium [Mass/Vol] 8.5 mg/dL 8.5-10.[address] [facility] Serum or plasma creatinine m easurement (mass/volume)Ordered By: Arya Ayala on 03-08-2024 Creatinine [Mass/Vol] 0.95 mg/dL 0.55-1.02 [facility] Comment on above: The validity of the calculated GFR & GFRAA in patients over 70 years has not been determined. Clinical correlation is essential. Serum or plasma thyroid stim ulating hormone (TSH) measurement (units/volume)Ordered By: Yoel Mcnally on 03-08-2024 TSH Qn 2.94 uIU/mL 0.358-3.74 [facility] Serum or plasma urea nitroge n measurement (mass/volume)Ordered By: Arya Ayala on 03-08-2024 Urea nitrogen [Mass/Vol] 21 mg/dL 7-18 [facility] Thin prep Papanicolaou smear with manual screeningOrdered By: Arya Ayala on 03-08-2024 Thin prep Papanicolaou smear with manual screening 3.5 g/dL 3.2-5.0 [facility] Thin prep Papanicolaou smear with manual screening 25 U/L 15-37 [facility] Thin prep Papanicolaou smear with manual screening 4 5-15 [facility] Whole blood hemoglobin A1c/t otal hemoglobin ratio (mass fraction)Ordered By: Yoel Mcnally on 03-08-2024 HbA1c (Bld) [Mass fraction] 6.5 % 3.8-5.6 [facility] Comment on above: Normal < 5.7 % Predi abetic 5.7 - 6.4 % Diabetic >or= 6.5 % Please note range changes. Absolute lymphocyte countOrd ered By: Zafar Zimmer on 03-07-2024 Lymphocytes Auto (Unsp spec) [#/Vol] 2.27 10*3/uL 0.83-4.51 [facility] Automated lymphocyte count a s percentage of total leukocytesOrdered By: Zafar Zimmer on 03-07-2024 Lymphocytes/100 WBC Auto (Unsp spec) 26.3 % 19-41 [facility] Basophil percentageOrdered B y: Zafar Zimmer on 03-07-2024 Basophils/100 WBC (Bld) 0.6 % 0-1 [facility] Chloride [Moles/Vol] 107 mmol/L 98-107 [facility] Eosinophils/100 WBC (Bld) 5.4 % 0-5 [facility] Glucose [Mass/Vol] 141 mg/dL 74-[address] [facility] Comment on above: Fasting Glucose resu lt greater than or equal to 126 mg/dL suggests DIABETES MELLITUS per A.D.A. criteria. Hemoglobin (Bld) [Mass/Vol] 12.2 g/dL 12.0-15.0 [facility] Monocytes/100 WBC (Bld) 7.1 % 0-10 [facility] Neutrophils (Bld) [#/Vol] 5.2 10*3/uL 2.0-7.7 [facility] Neutrophils/100 WBC (Bld) 60.3 % 47-70 [facility] Potassium [Moles/Vol] 4.1 mmol/L 3.5-5.1 [facility] Sodium [Moles/Vol] 138 mmol/L 136-[address] [facility] WBC (Bld) [#/Vol] 8.6 10*3/uL 4.4-11.[address] [facility] Determination of erythrocyte mean corpuscular volume (MCV)Ordered By: Zafar Zimmer on 03-07-2024 MCV (RBC) [Entitic vol] 104.5 fL 81-99 [facility] Erythrocyte distribution wid th ratioOrdered By: Zafar Zimmer on 03-07-2024 Erythrocyte distribution width (RBC) [Ratio] 13.2 % 11.6-14.6 [facility] Erythrocyte distribution wid th standard deviationOrdered By: Zafar Zimmer on 03-07-2024 Erythrocyte distribution width (RBC) [Entitic vol] 50.9 fL 35.1-43.9 [facility] Hematocrit Auto (Bld) [Volum e fraction]Ordered By: Zafar Zimmer on 03-07-2024 Hematocrit (Bld) [Volume fraction] 37.5 % 37-47 [facility] Immature granulocytes/100 WB C Auto (Bld)Ordered By: Zafar Zimmer on 03-07-2024 Immature granulocytes/100 WBC (Bld) 0.300 % 0.0-0.9 [facility] Comment on above: IG% - Immature Granu locytes (promyelocytes, myelocytes and metamyelocytes) > 1% indicates that a LEFT SHIFT is Present. Laboratory - Chemistry and C hemistry - challengeOrdered By: Zafar Zimmer on 03-07-2024 CO2 [Moles/Vol] 25.0 mmol/L 21.0-32.0 [facility] Urea nitrogen/Creatinine [Mass ratio] 24.8 mg/mg 10-20 [facility] Laboratory - Hematology and Cell countsOrdered By: Zafar Zimmer on 03-07-2024 MCH (RBC) [Entitic mass] 34.0 pg 27.0-32.0 [facility] MCHC (RBC) [Mass/Vol] 32.5 g/dL 32-36 [facility] Nucleated RBC/100 WBC (Bld) [Ratio] 0 % 0-5 [facility] Platelet mean volume (Bld) [Entitic vol] 9.9 fL 6.2-12.0 [facility] Platelets (Bld) [#/Vol] 236 10*3/uL 150-450 [facility] No Panel InformationOrdered By: Zafar Zimmer on 03-07-2024 Estimated GFR (MDRD) Amer 61 mL/min >60 [facility] Comment on above: GFR Calc Estimated GFR (MDRD) Non-Af Amer 50 mL/min >60 [facility] Comment on above: Non- GFR Calc Troponin I High Sensitivity 4 pg/mL 3.0-54.0 [facility] Comment on above: Please Note: [place] t Units and Gender Specific Reference Ranges. For more information see Policy Stat Procedure [place] High Sensitivity Troponin (TNIH) and attachments. No Panel InformationOrdered By: Arya Ayala on 03-07-2024 Folate 23.20 ng/mL 3.1-55.4 [facility] Comment on above: Slight Hemolysis, Re sult may be falsely increased. RBC Auto (Bld) [#/Vol]Ordere d By: Zafar Zimmer on 03-07-2024 RBC (Bld) [#/Vol] 3.59 10*6/uL 4.2-5.4 [facility] Serum or plasma calcium josué urement (mass/volume)Ordered By: Zafar Zimmer on 03-07-2024 Calcium [Mass/Vol] 9.0 mg/dL 8.5-10.[address] [facility] Serum or plasma creatinine m easurement (mass/volume)Ordered By: Zafar Zimmer on 03-07-2024 Creatinine [Mass/Vol] 1.13 mg/dL 0.55-1.02 [facility] Comment on above: The validity of the calculated GFR & GFRAA in patients over 70 years has not been determined. Clinical correlation is essential. Serum or plasma urea nitroge n measurement (mass/volume)Ordered By: Zafar Zimmer on 03-07-2024 Urea nitrogen [Mass/Vol] 28 mg/dL 7-18 [facility] Thin prep Papanicolaou smear with manual screeningOrdered By: Zafar Zimmer on 03-07-2024 Thin prep Papanicolaou smear with manual screening 6 5-15 [facility] Basophil percentageOrdered B y: Summer Worrell on 03-02-2024 Basophil percentage < 10.0 IU/mL <15 [facility] Erythrocyte sedimentation ra teOrdered By: Summer Worrell on 03-02-2024 ESR (Bld) [Velocity] 5 mm/h 0-30 [facility] No Panel InformationOrdered By: Summer Worrell on 03-02-2024 C-Reactive Protein Extended Range < 2.90 mg/L 0.0-3.0 [facility] Comment on above: C-Reactive Protein ( CRP) provides useful information for thediagnosis, therapy and monitoring of inflammatory processesand associated diseases. For the evaluation of Relative Riskfor Cardiovascular Disease, a High Sensitivity CRP (HSCRP)should be ordered. Serum cyclic citrullinated p eptide IgG antibody assay (units/volume)Ordered By: Summer Worrell on 03-02-2024 Cyclic citrullinated peptide IgG Qn 1 units 0-19 [facility] Comment on above: Negative <20 Weak po sitive 20 - 39 Moderate positive 40 - 59 Strong positive >59Performed at: [facility] [id number] Director: Vdial Briceno PhD, Phone: [phone] Culture, urineOrdered By: Barber Worrell on 02-03-2024 Bacteria identified Cx Nom (U) Culture exhibits no growth. [facility] Culture, urineOrdered By: Barber Worrell on 01-22-2024 Bacteria identified Cx Nom (U) Klebsiella pneumoniae sp pneum [facility] Bacteria identified Cx Nom (U) Klebsiella pneumoniae sp pneum [facility] Bilirubin Test strip Ql (U)O rdered By: Summer Worrell on 01-20-2024 Bilirubin Ql (U) Negative Negative [facility] Ketones Test strip Ql (U)Ord ered By: Summer Worrell on 01-20-2024 Ketones Ql (U) Negative Negative [facility] Nitrite Test strip Ql (U)Ord ered By: Summer Worrell on 01-20-2024 Nitrite Ql (U) Negative Negative [facility] Protein Test strip Ql (U)Ord ered By: Summer Worrell on 01-20-2024 Protein Ql (U) 15 mg/dl Negative [facility] Urine blood detectionOrdered By: Summer Worrell on 01-20-2024 RBC Ql (U) 10 /ul Negative [facility] Urine clarityOrdered By: Lara Worrell on 01-20-2024 Clarity (U) Cloudy Clear [facility] Urine color determinationOrd ered By: Summer Worrell on 01-20-2024 Color (U) Yellow Yellow [facility] Urine glucose detectionOrder ed By: Summer Worrell on 01-20-2024 Glucose Ql (U) Normal mg/dl Normal [facility] Urine leukocyte esterase det ection by dipstickOrdered By: Summer Worrell on 01-20-2024 Leukocyte esterase Test strip Ql (U) 500 /ul Negative [facility] Urine pHOrdered By: Summer grubbs on 01-20-2024 pH (U) 8.0 [pH] 5.0 - 8.0 [facility] Urine specific gravity measu rementOrdered By: Summer Worrell on 01-20-2024 Specific gravity (U) [Rel density] 1.010 1.002-1.030 [facility] Urine urobilinogen measureme ntOrdered By: Summer Worrell on 01-20-2024 Urobilinogen Ql (U) Normal mg/dl Normal [facility] Basophil percentageOrdered B y: Summer Worrell on 01-19-2024 Chloride [Moles/Vol] 109 mmol/L 98-107 [facility] Glucose [Mass/Vol] 121 mg/dL 74-[address] [facility] Comment on above: Fasting Glucose resu lt from 100 to 125 mg/dL suggests IMPAIRED HOMEOSTASIS per A.D.A. criteria. Potassium [Moles/Vol] 4.5 mmol/L 3.5-5.1 [facility] Sodium [Moles/Vol] 141 mmol/L 136-[address] [facility] Laboratory - Chemistry and C hemistry - challengeOrdered By: Summer Worrell on 01-19-2024 CO2 [Moles/Vol] 25.0 mmol/L 21.0-32.0 [facility] Urea nitrogen/Creatinine [Mass ratio] 33.0 mg/mg 10-20 [facility] No Panel InformationOrdered By: Summer Worrell on 01-19-2024 Estimated GFR (MDRD) Amer 59 mL/min >60 [facility] Comment on above: GFR Calc Estimated GFR (MDRD) Non-Af Amer 49 mL/min >60 [facility] Comment on above: Non- GFR Calc Serum or plasma calcium josué urement (mass/volume)Ordered By: Summer Worrell on 01-19-2024 Calcium [Mass/Vol] 9.7 mg/dL 8.5-10.[address] [facility] Serum or plasma creatinine m easurement (mass/volume)Ordered By: Summer Worrell on 01-19-2024 Creatinine [Mass/Vol] 1.15 mg/dL 0.55-1.02 [facility] Comment on above: The validity of the calculated GFR & GFRAA in patients over 70 years has not been determined. Clinical correlation is essential. Serum or plasma urea nitroge n measurement (mass/volume)Ordered By: Summer Worrell on 01-19-2024 Urea nitrogen [Mass/Vol] 38 mg/dL 7-18 [facility] Thin prep Papanicolaou smear with manual screeningOrdered By: Summer Worrell on 01-19-2024 Thin prep Papanicolaou smear with manual screening 7 5-15 [facility] Laboratory - Chemistry and C hemistry - challengeOrdered By: Summer Worrell on 12-24-2023 Cobalamin (Vitamin B12) [Mass/Vol] 925 pg/mL 211-911 [facility] No Panel InformationOrdered By: Summer Worrell on 12-24-2023 Vitamin D 25-Hydroxy 34.3 ng/mL [facility] Comment on above: Vitamin D 25(OH) Sta tus Range Deficiency <20 ng/mL (50nmol/L) Insufficiency 20 - 30 ng/mL (50 - 75 nmol/L) Sufficiency 30 - 100 ng/mL (75 - 250 nmol/L) Toxicity >100 ng/mL (>250 nmol/L) Gram stain for investigation of transfusion reactionOrdered By: Dimple Funes on 09-03-2023 Microscopic observation Gram stain Nom (Unsp spec) [facility] Microscopic observation Gram stain Nom (Unsp spec) [facility] Thin prep Papanicolaou smear with manual screeningOrdered By: Dimple Funes on 09-03-2023 Genital Culture GNR lactose lamp cleaner street light [facility] Genital Culture GNR lactose lamp cleaner street light [facility] Basophil percentageOrdered B y: Summer Worrell on 08-28-2023 Cholesterol [Mass/Vol] 185 mg/dL <200 [facility] Comment on above: <200 mg/dL Desirable 200-240 mg/dL Borderline >240 mg/dL High Risk Triglyceride [Mass/Vol] 71 mg/dL <199 [facility] Comment on above: The drugs N-Acetylcy steine and Metamizole may falsely depress this assay.Serum Triglycerides Reference Interval Normal <150 mg/dL Borderline high 150 - 199 mg/dL High 200 - 499 mg/dL Very High > or = 500 mg/dL No Panel InformationOrdered By: Summer Worrell on 08-28-2023 Thyroid Stimulating Hormone (TSH) 3.34 uIU/mL 0.358-3.74 [facility] Vitamin D 25-Hydroxy 49.6 ng/mL [facility] Comment on above: Vitamin D 25(OH) Sta tus Range Deficiency <20 ng/mL (50nmol/L) Insufficiency 20 - 30 ng/mL (50 - 75 nmol/L) Sufficiency 30 - 100 ng/mL (75 - 250 nmol/L) Toxicity >100 ng/mL (>250 nmol/L) Serum or plasma cholesterol in HDL measurement (mass/volume)Ordered By: Summer Worrell on 08-28-2023 Cholesterol in HDL [Mass/Vol] 75 mg/dL >40 [facility] Comment on above: The drugs N-Acetylcy steine and Metamizole may falsely depress this assay. Reference Range HDL <40 mg/dL Low HDL Cholesterol HDL >or= 60 mg/dL High HDL Cholesterol Serum or plasma cholesterol in VLDL measurement (mass/volume)Ordered By: Summer Worrell on 08-28-2023 Cholesterol in VLDL [Mass/Vol] 14 mg/dL 5-40 [facility] Serum or plasma low density lipoprotein (LDL) cholesterol measurement (mass/volume)Ordered By: Summer Worrell on 08-28-2023 Cholesterol in LDL [Mass/Vol] 96 mg/dL 0-130 [facility] Whole blood hemoglobin A1c/t otal hemoglobin ratio (mass fraction)Ordered By: Summer Worrell on 08-28-2023 HbA1c (Bld) [Mass fraction] 6.7 % 3.8-5.6 [facility] Comment on above: Normal < 5.7 % Predi abetic 5.7 - 6.4 % Diabetic >or= 6.5 % Please note range changes. Gram stain for investigation of transfusion reactionOrdered By: Angelica Avendano on 07-25-2023 Microscopic observation Gram stain Nom (Unsp spec) [facility] Thin prep Papanicolaou smear with manual screeningOrdered By: Angelica Avendano on 07-25-2023 Genital Culture GNR lactose lamp cleaner street light [facility] Gram stain for investigation of transfusion reactionOrdered By: Angelica Avendano on 07-24-2023 Microscopic observation Gram stain Nom (Unsp spec) [facility] Thin prep Papanicolaou smear with manual screeningOrdered By: Angelica Avendano on 07-24-2023 Genital Culture GNR lactose lamp cleaner street light [facility] EMG(NEURO/NI)on 07-16-2023 [facility] Absolute lymphocyte countOrd ered By: Obdulio Fofana on 04-17-2023 Lymphocytes Auto (Unsp spec) [#/Vol] 1.21 10*3/uL 0.83-4.51 [facility] Basophil percentageOrdered B y: Obdulio Fofana on 04-17-2023 Basophils/100 WBC (Bld) 0.4 % 0-1 [facility] Chloride [Moles/Vol] 112 mmol/L 98-107 [facility] Eosinophils/100 WBC (Bld) 6.3 % 0-5 [facility] Glucose [Mass/Vol] 155 mg/dL 74-[address] [facility] Comment on above: Fasting Glucose resu lt greater than or equal to 126 mg/dL suggests DIABETES MELLITUS per A.D.A. criteria. Neutrophils (Bld) [#/Vol] 5.8 10*3/uL 2.0-7.7 [facility] Neutrophils/100 WBC (Bld) 72.0 % 47-70 [facility] Potassium [Moles/Vol] 4.3 mmol/L 3.5-5.1 [facility] Sodium [Moles/Vol] 144 mmol/L 136-[address] [facility] WBC (Bld) [#/Vol] 8.1 10*3/uL 4.4-11.[address] [facility] Basophil percentage 25-50 SEEN /hpf 0-5 [facility] Bilirubin Test strip Ql (U)O rdered By: Obdulio Fofana on 04-17-2023 Bilirubin Ql (U) Negative Negative [facility] Blood erythrocytes count (nu mber/volume)Ordered By: Obdulio Fofana on 04-17-2023 RBC (Bld) [#/Vol] 3.82 10*6/uL 4.2-5.4 [facility] Blood hemoglobin measurement (mass/volume)Ordered By: Obdulio Fofana on 04-17-2023 Hemoglobin (Bld) [Mass/Vol] 13.2 g/dL 12.0-15.0 [facility] Blood lymphocytes/100 leukoc ytesOrdered By: Obdulio Fofana on 04-17-2023 Lymphocytes/100 WBC (Bld) 14.9 % 19-41 [facility] Blood monocytes/100 leukocyt esOrdered By: Obdulio Fofana on 04-17-2023 Monocytes/100 WBC (Bld) 6.2 % 0-10 [facility] Blood platelet mean volumeOr dered By: Obdulio Fofana on 04-17-2023 Platelet mean volume (Bld) [Entitic vol] 9.3 fL 6.2-12.0 [facility] Culture, urineOrdered By: Sanjuana Fofana on 04-17-2023 Bacteria identified Cx Nom (U) Klebsiella pneumoniae sp pneum [facility] Determination of erythrocyte mean corpuscular volume (MCV)Ordered By: Obdulio Fofana on 04-17-2023 MCV (RBC) [Entitic vol] 105.2 fL 81-99 [facility] Hematocrit Auto (Bld) [Volum e fraction]Ordered By: Obdulio Fofana on 04-17-2023 Hematocrit (Bld) [Volume fraction] 40.2 % 37-47 [facility] Ketones Test strip Ql (U)Ord ered By: Obdulio Fofana on 04-17-2023 Ketones Ql (U) Negative Negative [facility] Laboratory - Chemistry and C hemistry - challengeOrdered By: Obdulio Fofana on 04-17-2023 CO2 [Moles/Vol] 27.0 mmol/L 21.0-32.0 [facility] Urea nitrogen/Creatinine [Mass ratio] 22.1 mg/mg 10-20 [facility] Laboratory - Hematology and Cell countsOrdered By: Obdulio Fofana on 04-17-2023 Erythrocyte distribution width (RBC) [Entitic vol] 56.6 fL 35.1-43.9 [facility] Erythrocyte distribution width (RBC) [Ratio] 14.6 % 11.6-14.6 [facility] Immature granulocytes/100 WBC (Bld) 0.200 % 0.0-0.9 [facility] Comment on above: IG% - Immature Granu locytes (promyelocytes, myelocytes and metamyelocytes) > 1% indicates that a LEFT SHIFT is Present. MCH (RBC) [Entitic mass] 34.6 pg 27.0-32.0 [facility] Nucleated RBC/100 WBC (Bld) [Ratio] 0 % 0-5 [facility] MCHC Auto (RBC) [Mass/Vol]Or dered By: Obdulio Fofana on 04-17-2023 MCHC (RBC) [Mass/Vol] 32.8 g/dL 32-36 [facility] Mucus LM Ql (Urine sed)Order ed By: Obdulio Fofana on 04-17-2023 Mucus Ql (Urine sed) 0 SEEN /hpf [facility] Nitrite Test strip Ql (U)Ord ered By: Obdulio Fofana on 04-17-2023 Nitrite Ql (U) Positive Negative [facility] No Panel InformationOrdered By: Obdulio Fofana on 04-17-2023 Estimated Creatinine Clearance Calc 39.94 ml/min [facility] Estimated GFR (MDRD) Amer 56 mL/min >60 [facility] Comment on above: GFR Calc Estimated GFR (MDRD) Non-Af Amer 46 mL/min >60 [facility] Comment on above: Non- GFR Calc Platelets bldOrdered By: Pinky Fofana on 04-17-2023 Platelets (Bld) [#/Vol] 229 10*3/uL 150-450 [facility] Protein Test strip Ql (U)Ord ered By: Obdulio Fofana on 04-17-2023 Protein Ql (U) 30 mg/dl Negative [facility] Serum or plasma calcium josué urement (mass/volume)Ordered By: Obdulio Fofana on 04-17-2023 Calcium [Mass/Vol] 9.1 mg/dL 8.5-10.[address] [facility] Serum or plasma creatinine m easurement (mass/volume)Ordered By: Obdulio Fofana on 04-17-2023 Creatinine [Mass/Vol] 1.22 mg/dL 0.55-1.02 [facility] Comment on above: The validity of the calculated GFR & GFRAA in patients over 70 years has not been determined. Clinical correlation is essential. Serum or plasma urea nitroge n measurement (mass/volume)Ordered By: Obdulio Fofana on 04-17-2023 Urea nitrogen [Mass/Vol] 27 mg/dL 7-18 [facility] Squamous epithelial cells de tection in urine sediment by light microscopyOrdered By: Obdulio Fofana on 04-17-2023 Epithelial cells.squamous LM Ql (Urine sed) 0-5 SEEN /hpf 5-10 [facility] Thin prep Papanicolaou smear with manual screeningOrdered By: Obdulio Fofana on 04-17-2023 Thin prep Papanicolaou smear with manual screening 5 5-15 [facility] Urine blood detectionOrdered By: Obdulio Fofana on 04-17-2023 RBC Ql (U) 25 /ul Negative [facility] RBC Ql (U) 0-5 SEEN /hpf 0-5 [facility] Urine clarityOrdered By: Pinky Fofana on 04-17-2023 Clarity (U) Cloudy Clear [facility] Urine color determinationOrd ered By: Obdulio Fofana on 04-17-2023 Color (U) Yellow Yellow [facility] Urine glucose detectionOrder ed By: Obdulio Fofana on 04-17-2023 Glucose Ql (U) 100 mg/dl Normal [facility] Urine leukocyte esterase det ection by dipstickOrdered By: Obdulio Fofana on 04-17-2023 Leukocyte esterase Test strip Ql (U) 500 /ul Negative [facility] Urine pHOrdered By: Obdulio Fofana on 04-17-2023 pH (U) 6.0 [pH] 5.0 - 8.0 [facility] Urine sediment bacteria coun t by microscopy (number/high power field)Ordered By: Obdulio Fofana on 04-17-2023 Bacteria LM.HPF (Urine sed) [#/Area] 4 /[HPF] None Seen [facility] Urine specific gravity measu rementOrdered By: Obdulio Fofana on 04-17-2023 Specific gravity (U) [Rel density] 1.015 1.002-1.030 [facility] Urobilinogen Auto test strip Ql (U)Ordered By: Obdulio Fofana on 04-17-2023 Urobilinogen Ql (U) Normal mg/dl Normal [facility] Laboratory - Chemistry and C hemistry - challengeon 11-01-2022 Cobalamin (Vitamin B12) [Mass/Vol] 922 pg/mL 211-911 [facility] Work Phone: No Panel Informationon 11-01 Thyroid Stimulating Hormone (TSH) 0.70 uIU/mL 0.358-3.74 [facility] Work Phone: Whole blood hemoglobin A1c/t otal hemoglobin ratio (mass fraction)on 11-01-2022 HbA1c (Bld) [Mass fraction] 6.9 % 3.8-5.6 [facility] Work Phone: Comment on above: Normal < 5.7 % Predi abetic 5.7 - 6.4 % Diabetic >or= 6.5 % Please note range changes. Glucose Glucometer (BldC) [M ass/Vol]on 07-04-2022 Glucose [Mass/Vol] 150 mg/dL 74-[address] [facility] Work Phone: Comment on above: MANAGEMENT OF PATIEN T CARE PER NURSING PROTOCOL Basophil percentageon 2021 Bilirubin [Mass/Vol] 0.40 mg/dL 0.20-1.00 [facility] Work Phone: Comment on above: For patients on eltr ombopag therapy, use of Dimension Fleming TBIL is not recommended. Chloride [Moles/Vol] 109 mmol/L 98-107 [facility] Work Phone: Glucose [Mass/Vol] 118 mg/dL 74-[address] [facility] Work Phone: Comment on above: Fasting Glucose resu lt from 100 to 125 mg/dL suggests IMPAIRED HOMEOSTASIS per A.D.A. criteria. Potassium [Moles/Vol] 4.4 mmol/L 3.5-5.1 [facility] Work Phone: Protein [Mass/Vol] 7.4 g/dL 6.4-8.[address] [facility] Work Phone: Sodium [Moles/Vol] 140 mmol/L 136-[address] [facility] Work Phone: WBC (Bld) [#/Vol] 7.0 10*3/uL 4.4-11.[address] [facility] Work Phone: Blood erythrocytes count (nu mber/volume)on 07-01-2022 RBC (Bld) [#/Vol] 3.41 10*6/uL 4.2-5.4 [facility]: Blood hemoglobin measurement (mass/volume)on 07-01-2022 Hemoglobin (Bld) [Mass/Vol] 11.9 g/dL 12.0-15.0 [facility] Work Phone: Blood platelet mean volumeon 07-01-2022 Platelet mean volume (Bld) [Entitic vol] 9.4 fL 6.2-12.0 [facility] Work Phone: Determination of erythrocyte mean corpuscular volume (MCV)on 07-01-2022 MCV (RBC) [Entitic vol] 107.0 fL 81-99 [facility] Work Phone: Direct bilirubinon 2 Bilirubin.direct [Mass/Vol] 0.11 mg/dL 0.00-0.30 [facility] Work Phone: Hematocrit Auto (Bld) [Volum e fraction]on 07-01-2022 Hematocrit (Bld) [Volume fraction] 36.5 % 37-47 [facility] Work Phone: INR in Blood by Coagulation assayon 07-01-2022 INR Coag (Bld) [Relative time] 1.0 {INR} [facility] Work Phone: Laboratory - Chemistry and C hemistry - challengeon 07-01-2022 ALP [Catalytic activity/Vol] 95 U/L 45-117 [facility] Work Phone: [phone] ALT [Catalytic activity/Vol] 22 U/L 13-56 [facility] Work Phone: [phone] CO2 [Moles/Vol] 28.0 mmol/L 21.0-32.0 [facility] Work Phone: Globulin (S) [Mass/Vol] 3.9 g/dL 2.2-4.2 [facility] Work Phone: Urea nitrogen/Creatinine [Mass ratio] 25.0 mg/mg 10-20 [facility] Work Phone: Laboratory - Coagulationon 0 07-01-2022 aPTT Coag (Bld) [Time] 33.2 s 24.1-36.2 [facility] Work Phone: PT Coag (PPP) [Time] 12.5 s 11.7-14.9 [facility] Work Phone: [phone] Laboratory - Hematology and Cell countson 07-01-2022 Erythrocyte distribution width (RBC) [Entitic vol] 51.1 fL 35.1-43.9 [facility] Work Phone: [phone] Erythrocyte distribution width (RBC) [Ratio] 13.1 % 11.6-14.6 [facility] Work Phone: [phone] MCH (RBC) [Entitic mass] 34.9 pg 27.0-32.0 [facility] Work Phone: [phone] MCHC Auto (RBC) [Mass/Vol]on 07-01-2022 MCHC (RBC) [Mass/Vol] 32.6 g/dL 32-36 [facility] Work Phone: No Panel Informationon 07-01 Estimated GFR (MDRD) Amer 57 mL/min >60 [facility] Work Phone: Comment on above: GFR Calc Estimated GFR (MDRD) Non-Af Amer 47 mL/min >60 [facility] Work Phone: Comment on above: Non- GFR Calc Thyroid Stimulating Hormone (TSH) 14.10 uIU/mL 0.358-3.74 [facility] Work Phone: Platelets bldon 07-01-2022 Platelets (Bld) [#/Vol] 221 10*3/uL 150-450 [facility] Work Phone: Serum or plasma albumin josué urement (mass/volume)on 07-01-2022 Albumin [Mass/Vol] 3.5 g/dL 3.2-5.[address] [facility] Work Phone: Serum or plasma calcium josué urement (mass/volume)on 07-01-2022 Calcium [Mass/Vol] 9.1 mg/dL 8.5-10.[address] [facility] Work Phone: Serum or plasma creatinine m easurement (mass/volume)on 07-01-2022 Creatinine [Mass/Vol] 1.20 mg/dL 0.55-1.02 [facility] Work Phone: Comment on above: The validity of the calculated GFR & GFRAA in patients over 70 years has not been determined. Clinical correlation is essential. Serum or plasma urea nitroge n measurement (mass/volume)on 07-01-2022 Urea nitrogen [Mass/Vol] 30 mg/dL 7-18 [facility] Work Phone: Thin prep Papanicolaou smear with manual screeningon 07-01-2022 Thin prep Papanicolaou smear with manual screening 21 U/L 15-37 [facility] Work Phone: Thin prep Papanicolaou smear with manual screening 3 - [facility] Work Phone: Whole blood hemoglobin A1c/t otal hemoglobin ratio (mass fraction)on 07-01-2022 HbA1c (Bld) [Mass fraction] 6.6 % 3.8-5.6 [facility] Work Phone: Comment on above: Normal < 5.7 % Predi abetic 5.7 - 6.4 % Diabetic >or= 6.5 % Please note range changes. Office Visit: initial thyroi d consulton 07-24-2017 Adult depression screening assessment Adult depression screening assessment [facility] Work Phone: Documentation of current medications (procedure) Done Invalid Interpretation Code [facility] Work Phone: PHQ-9 quick depression assessment panel [Reported.PHQ] Adult depression screening assessment [facility] Work Phone: Protein mass conc Done [facility] Work Phone: Tobacco smoking status NHIS Never [facility] Work Phone: Tobacco smoking status NHIS Current every day smoker [facility] Work Phone: Tobacco use [facility] Current every day smoker Invalid Interpretation Code [facility] Work Phone: Clinical Lists 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 08-08-2025 09:01-0400 Body weight 64.14 kg Pastora Murphy APRN.CNM Work Phone: [facility] 08-08-2025 09:01-0400 Diastolic blood pressure 76 mm[Hg] Pastora Murphy APRN.CNM Work Phone: [facility] 08-08-2025 09:01-0400 Systolic blood pressure 120 mm[Hg] Pastora Murphy APRN.CNM Work Phone: [facility] 04-11-2025 15:01-0400 Body height 167.5 cm Darren Mercado MD Work Phone: [facility] 04-11-2025 15:01-0400 Body mass index (BMI) [Ratio] 22.29 kg/m2 Darren Mercado MD Work Phone: [facility] 04-11-2025 15:01-0400 Body temperature 99 [degF] Darren Mercado MD Work Phone: [facility] 04-11-2025 15:01-0400 Body weight 62.55 kg Darren Mercado MD Work Phone: [facility] 04-11-2025 15:01-0400 Diastolic blood pressure 91 mm[Hg] Darren Mercado MD Work Phone: [facility] 04-11-2025 15:01-0400 Heart rate 85 /min Darren Mercado MD Work Phone: [facility] 04-11-2025 15:01-0400 Systolic blood pressure 159 mm[Hg] Darren Mercado MD Work Phone: [facility] 02-08-2025 08:05-0400 Body mass index (BMI) [Ratio] 21.44 kg/m2 Denisha Steiner PA-C Work Phone: [facility] 02-08-2025 08:05-0400 Body weight 62.1 kg Denisha Steiner PA-C Work Phone: [facility] 02-08-2025 08:05-0400 Diastolic blood pressure 81 mm[Hg] Denisha HOLLY-Donavon Work Phone: [facility] 02-08-2025 08:05-0400 Heart rate 109 /min Denisha Emersoner PA-C Work Phone: [facility] 02-08-2025 08:05-0400 Respiratory rate 18 /min Denisha Queener PA-C Work Phone: [facility] 02-08-2025 08:05-0400 SaO2% (BldA) [Mass fraction] 95 % Denisha Queener PA-C Work Phone: [facility] 02-08-2025 08:05-0400 Systolic blood pressure 135 mm[Hg] Denisha Queener PA-C Work Phone: [facility] 01-04-2025 12:40-0500 Body mass index (BMI) [Ratio] 21.39 kg/m2 Denisha Queener PA-C Work Phone: [facility] 01-04-2025 12:40-0500 Body weight 61.96 kg Denisha Queener PA-C Work Phone: [facility] 01-04-2025 12:40-0500 Diastolic blood pressure 87 mm[Hg] Denisha Queener PA-C Work Phone: [facility] 01-04-2025 12:40-0500 Heart rate 85 /min Denisha Queener PA-C Work Phone: [facility] 01-04-2025 12:40-0500 Respiratory rate 18 /min Denisha Queener PA-C Work Phone: [facility] 01-04-2025 12:40-0500 SaO2% (BldA) [Mass fraction] 100 % Denisha Queener PA-C Work Phone: [facility] 01-04-2025 12:40-0500 Systolic blood pressure 144 mm[Hg] Denisha Queener PA-C Work Phone: [facility] 03-29-2024 13:00-0400 Body temperature 97.9 [degF] Dr. Summer Worrell Work Phone: [facility] 03-29-2024 13:00-0400 Diastolic blood pressure 78 mm[Hg] Dr. Summer Worrell Work Phone: [facility] 03-29-2024 13:00-0400 Heart rate 87 /min Dr. Summer Worrell Work Phone: [facility] 03-29-2024 13:00-0400 Respiratory rate 18 /min Dr. Summer Worrell Work Phone: [facility] 03-29-2024 13:00-0400 SaO2% (BldA) [Mass fraction] 97 % Dr. Summer Worrell Work Phone: [facility] 03-29-2024 13:00-0400 Systolic blood pressure 141 mm[Hg] Dr. Summer Worrell Work Phone: [facility] 03-24-2024 14:17-0400 Body height 170.[address] Summer Worrell Work Phone: [facility] 03-24-2024 14:17-0400 Body weight 61.[address] Summer Worrell Work Phone: [facility] 03-23-2024 09:37-0400 Body mass index (BMI) [Ratio] 21.1 kg/m2 Dr. Summer Worrell Work Phone: [facility] 03-19-2024 13:18-0400 Body temperature 97.7 [degF] Dr. Summer Worrell Work Phone: [facility] 03-19-2024 13:18-0400 Diastolic blood pressure 68 mm[Hg] Dr. Summer Worrell Work Phone: [facility] 03-19-2024 13:18-0400 Heart rate 91 /min Dr. Summer Worrell Work Phone: [facility] 03-19-2024 13:18-0400 Respiratory rate 18 /min Dr. Summer Worrell Work Phone: [facility] 03-19-2024 13:18-0400 SaO2% (BldA) [Mass fraction] 94 % Dr. Summer Worrell Work Phone: [facility] 03-19-2024 13:18-0400 Systolic blood pressure 115 mm[Hg] Dr. Summer Worrell Work Phone: [facility] 03-19-2024 11:32-0400 Body height 170.[address] Summer Worrell Work Phone: [facility] 03-19-2024 11:32-0400 Body mass index (BMI) [Ratio] 21.2 kg/m2 Dr. Summer Worrell Work Phone: [facility] 03-19-2024 11:32-0400 Body weight 61.[address] Summer Worrell Work Phone: [facility] 03-18-2024 20:48-0400 Diastolic blood pressure 61 mm[Hg] Dr. Summer Worrell Work Phone: [facility] 03-18-2024 20:48-0400 Heart rate 99 /min Dr. Summer Worrell Work Phone: [facility] 03-18-2024 20:48-0400 Systolic blood pressure 111 mm[Hg] Dr. Summer Worrell Work Phone: [facility] 03-18-2024 15:11-0400 Body temperature 98.2 [degF] Dr. Summer Worrell Work Phone: [facility] 03-18-2024 15:11-0400 Respiratory rate 16 /min Dr. Summer Worrell Work Phone: [facility] 03-18-2024 15:11-0400 SaO2% (BldA) [Mass fraction] 93 % Dr. Summer Worrell Work Phone: [facility] 03-17-2024 11:36-0400 Body weight 63.[address] Summer Worrell Work Phone: [facility] 03-16-2024 10:13-0400 Body mass index (BMI) [Ratio] 22 kg/m2 Dr. Summer Worrell Work Phone: [facility] 03-13-2024 15:59-0400 Body temperature 98.5 [degF] Dr. Summer Worrell Work Phone: [facility] 03-13-2024 15:59-0400 Diastolic blood pressure 75 mm[Hg] Dr. Summer Worrell Work Phone: [facility] 03-13-2024 15:59-0400 Heart rate 101 /min Dr. Summer Worrell Work Phone: [facility] 03-13-2024 15:59-0400 Respiratory rate 16 /min Dr. Summer Worrell Work Phone: [facility] 03-13-2024 15:59-0400 SaO2% (BldA) [Mass fraction] 94 % Dr. Summer Worrell Work Phone: [facility] 03-13-2024 15:59-0400 Systolic blood pressure 138 mm[Hg] Dr. Summer Worrell Work Phone: [facility] 03-13-2024 10:32-0400 Diastolic blood pressure 65 mm[Hg] Dr. Summer Worrell Work Phone: [facility] 03-13-2024 10:32-0400 Heart rate 98 /min Dr. Summer Worrell Work Phone: [facility] 03-13-2024 10:32-0400 Respiratory rate 18 /min Dr. Summer Worrell Work Phone: [facility] 03-13-2024 10:32-0400 SaO2% (BldA) [Mass fraction] 99 % Dr. Summer Worrell Work Phone: [facility] 03-13-2024 10:32-0400 Systolic blood pressure 137 mm[Hg] Dr. Summer Worrell Work Phone: [facility] 03-13-2024 08:44-0400 Body temperature 98.4 [degF] Dr. Summer Worrell Work Phone: [facility] 03-12-2024 13:57-0400 Body height 170.[address] Summer Worrell Work Phone: [facility] 03-12-2024 13:57-0400 Body weight 64.[address] Summer Worrell Work Phone: [facility] 03-11-2024 13:51-0400 Body mass index (BMI) [Ratio] 22.4 kg/m2 Dr. Summer Worrell Work Phone: [facility] 03-11-2024 09:30-0400 Body temperature 98.2 [degF] Dr. Summer Worrell Work Phone: [facility] 03-11-2024 09:30-0400 Diastolic blood pressure 60 mm[Hg] Dr. Summer Worrell Work Phone: [facility] 03-11-2024 09:30-0400 Heart rate 102 /min Dr. Summer Worrell Work Phone: [facility] 03-11-2024 09:30-0400 Respiratory rate 18 /min Dr. Summer Worrell Work Phone: [facility] 03-11-2024 09:30-0400 SaO2% (BldA) [Mass fraction] 95 % Dr. Summer Worrell Work Phone: [facility] 03-11-2024 09:30-0400 Systolic blood pressure 122 mm[Hg] Dr. Summer Worrell Work Phone: [facility] 03-11-2024 00:28-0400 Body mass index (BMI) [Ratio] 22.1 kg/m2 Dr. Summer Worrell Work Phone: [facility] 03-11-2024 00:28-0400 Body weight [address] Summer Worrell Work Phone: [facility] 03-09-2024 05:30-0400 Inhaled oxygen flow rate 2 L/min Dr. Summer Worrell Work Phone: [facility] 03-08-2024 11:31-0400 Body height 170.[address] Summer Worrell Work Phone: [facility] 03-08-2024 08:00-0400 Body temperature 97.7 [degF] Dr. Summer Worrell Work Phone: [facility] 03-08-2024 08:00-0400 Diastolic blood pressure 76 mm[Hg] Dr. Summer Worrell Work Phone: [facility] 03-08-2024 08:00-0400 Heart rate 80 /min Dr. Summer Worrell Work Phone: [facility] 03-08-2024 08:00-0400 Respiratory rate 18 /min Dr. Summer Worrell Work Phone: [facility] 03-08-2024 08:00-0400 SaO2% (BldA) [Mass fraction] 96 % Dr. Summer Worrell Work Phone: [facility] 03-08-2024 08:00-0400 Systolic blood pressure 142 mm[Hg] Dr. Summer Worrell Work Phone: [facility] 03-07-2024 23:14-0400 Body mass index (BMI) [Ratio] 21.8 kg/m2 Dr. Summer Worrell Work Phone: [facility] 03-07-2024 23:14-0400 Body weight 63.[address] Summer Worrell Work Phone: [facility] 03-07-2024 22:48-0400 Body height 170.[address] Summer Worrell Work Phone: [facility] 03-07-2024 19:58-0400 Body temperature 98.3 [degF] Dr. Summer Worrell Work Phone: [facility] 03-07-2024 19:58-0400 Diastolic blood pressure 95 mm[Hg] Dr. Summer Worrell Work Phone: [facility] 03-07-2024 19:58-0400 Heart rate 74 /min Dr. Summer Worrell Work Phone: [facility] 03-07-2024 19:58-0400 Respiratory rate 18 /min Dr. Summer Worrell Work Phone: [facility] 03-07-2024 19:58-0400 SaO2% (BldA) [Mass fraction] 91 % Dr. Summer Worrell Work Phone: [facility] 03-07-2024 19:58-0400 Systolic blood pressure 150 mm[Hg] Dr. Summer Worrell Work Phone: [facility] 03-07-2024 18:27-0400 Body height 170.[address] Summer Worrell Work Phone: [facility] 01-27-2024 20:01-0500 Body height 170.[address] Summer Worrell Work Phone: [facility] 01-27-2024 20:01-0500 Body mass index (BMI) [Ratio] 21.2 kg/m2 Dr. Summer Worrell Work Phone: [facility] 01-27-2024 20:01-0500 Body temperature 96 [degF] Dr. Summer Worrell Work Phone: [facility] 01-27-2024 20:01-0500 Body weight 61.[address] Summer Worrell Work Phone: [facility] 01-27-2024 20:01-0500 Diastolic blood pressure 88 mm[Hg] Dr. Summer Worrell Work Phone: [facility] 01-27-2024 20:01-0500 Heart rate 89 /min Dr. Summer Worrell Work Phone: [facility] 01-27-2024 20:01-0500 Respiratory rate 18 /min Dr. Summer Worrell Work Phone: [facility] 01-27-2024 20:01-0500 SaO2% (BldA) [Mass fraction] 98 % Dr. Summer Worrell Work Phone: [facility] 01-27-2024 20:01-0500 Systolic blood pressure 154 mm[Hg] Dr. Summer Worrell Work Phone: [facility] 10-20-2023 10:29-0500 Body height 170.[address] Summer Worrell Work Phone: [facility] 10-20-2023 10:29-0500 Body mass index (BMI) [Ratio] 21.7 kg/m2 Dr. Summer Worrell Work Phone: [facility] 10-20-2023 10:29-0500 Body weight 62.[address] Summer Worrell Work Phone: [facility] 09-03-2023 14:19-0400 Body height 170.[address] Summer Worrell Work Phone: [facility] 09-03-2023 14:14-0400 Body mass index (BMI) [Ratio] 20.3 kg/m2 Dr. Summer Worrell Work Phone: [facility] 09-03-2023 14:14-0400 Body weight 59.[address] Summer Worrell Work Phone: [facility] 09-03-2023 14:14-0400 Diastolic blood pressure 82 mm[Hg] Dr. Summer Worrell Work Phone: [facility] 09-03-2023 14:14-0400 Systolic blood pressure 132 mm[Hg] Dr. Summer Worrell Work Phone: [facility] 07-24-2023 15:01-0400 Body height 170.[address] Summer Worrell Work Phone: [facility] 07-24-2023 14:58-0400 Body mass index (BMI) [Ratio] 21.9 kg/m2 Dr. Summer Worrell Work Phone: [facility] 07-24-2023 14:58-0400 Body weight 63.[address] Summer Worrell Work Phone: [facility] 07-24-2023 14:58-0400 Diastolic blood pressure 69 mm[Hg] Dr. Summer Worrell Work Phone: [facility] 07-24-2023 14:58-0400 Systolic blood pressure 169 mm[Hg] Dr. Summer Worrell Work Phone: [facility] 07-15-2023 12:37-0400 Diastolic blood pressure 76 mm[Hg] Analisa Holden MD Work Phone: [facility] 07-15-2023 12:37-0400 Heart rate 88 /min Analisa Holden MD Work Phone: [facility] 07-15-2023 12:37-0400 Systolic blood pressure 147 mm[Hg] Analisa Holden MD Work Phone: [facility] 04-17-2023 15:44-0400 Diastolic blood pressure 74 mm[Hg] Dr. Summer Worrell Work Phone: [facility] 04-17-2023 15:44-0400 Heart rate 81 /min Dr. Summer Worrell Work Phone: [facility] 04-17-2023 15:44-0400 Respiratory rate 18 /min Dr. Summer Worrell Work Phone: [facility] 04-17-2023 15:44-0400 SaO2% (BldA) [Mass fraction] 99 % Dr. Summer Worrell Work Phone: [facility] 04-17-2023 15:44-0400 Systolic blood pressure 148 mm[Hg] Dr. Summer Worrell Work Phone: [facility] 04-17-2023 13:09-0400 Body height 170.[address] Summer Worrell Work Phone: [facility] 04-17-2023 13:09-0400 Body mass index (BMI) [Ratio] 21.9 kg/m2 Dr. Summer Worrell Work Phone: [facility] 04-17-2023 13:09-0400 Body temperature 97.6 [degF] Dr. Summer Worrell Work Phone: [facility] 04-17-2023 13:09-0400 Body weight 63.[address] Summer Worrell Work Phone: [facility] 03-27-2023 08:21-0400 Body weight 62.6 kg Lexi Athens CONTINUOUS IMPROVEMENT SPECIALIST.SUPPOSITORY MOLDING MACHINE OPERATOR Work Phone: [facility] 03-27-2023 08:21-0400 Diastolic blood pressure 74 mm[Hg] Lexi Athens CONTINUOUS IMPROVEMENT SPECIALIST.SUPPOSITORY MOLDING MACHINE OPERATOR Work Phone: [facility] 03-27-2023 08:21-0400 Systolic blood pressure 130 mm[Hg] Lexi Athens CONTINUOUS IMPROVEMENT SPECIALIST.SUPPOSITORY MOLDING MACHINE OPERATOR Work Phone: [facility] 02-13-2023 15:04-0400 Body mass index (BMI) [Ratio] 22.3 kg/m2 Dr. Summer Worrell Work Phone: [facility] 02-13-2023 15:04-0400 Body weight 62.[address] Summer Worrell Work Phone: [facility] 02-13-2023 15:04-0400 Diastolic blood pressure 78 mm[Hg] Dr. Summer Worrell Work Phone: [facility] 02-13-2023 15:04-0400 Systolic blood pressure 130 mm[Hg] Dr. Summer Worrell Work Phone: [facility] 07-04-2022 10:34-0400 Body temperature 97.6 [degF] [facility] Work Phone: 07-04-2022 10:34-0400 Diastolic blood pressure 90 mm[Hg] [facility] Work Phone: 07-04-2022 10:34-0400 Heart rate 67 /min [facility] Work Phone: 07-04-2022 10:34-0400 Respiratory rate 16 /min [facility] Work Phone: 07-04-2022 10:34-0400 SaO2% (BldA) [Mass fraction] 98 % [facility] Work Phone: 07-04-2022 10:34-0400 Systolic blood pressure 137 mm[Hg] [facility] Work Phone: 07-04-2022 06:39-0400 Body height 167.64 cm [facility] Work Phone: 07-04-2022 06:39-0400 Body mass index (BMI) [Ratio] 21.9 kg/m2 [facility] Work Phone: 07-04-2022 06:39-0400 Body weight 61.68 kg [facility] Work Phone: 07-24-2017 07:47-0400 BMI (Body Mass Index) 20.92 kg/m2 Tessa Rice LPN [facility] Work Phone: 07-24-2017 07:47-0400 Body Temperature 97.9 [degF] Tessa Rice LPN [facility] Work Phone: 07-24-2017 07:47-0400 BP Diastolic 88 mm[Hg] Tessa Rice LPN [facility] Work Phone: 07-24-2017 07:47-0400 BP Systolic 142 mm[Hg] Tessa Rice LPN [facility] Work Phone: 07-24-2017 07:47-0400 Height 170.18 cm Tessa Rice INSPECTOR [employer]ICULT[employer] COMMODITIES [facility] Work Phone: 07-24-2017 07:47-0400 Pulse (Heart Rate) 78 /min Tessa Rice LPN [facility] Work Phone: 07-24-2017 07:47-0400 Respiratory Rate 18 /min [facility] Work Phone: 07-24-2017 07:47-0400 Weight 60.6 kg [facility] Work Phone: Encounters Encounter Date Encounter Type Care Provider Facility Start: 09-23-2025 End: 09-23-2025 ambulatory FELIX WU Facility:[facility] Start: 09-09-2025 End: 09-09-2025 ambulatory [facility] Facility:[facility] Start: 09-03-2025 [facility] Facility: [facility] Start: 08-29-2025 End: 08-29-2025 ambulatory [facility] Facility:[facility] Start: 08-08-2025 End: 08-08-2025 Patient encounter procedure Pastora Murphy APRN.CNM Work Phone: OB/Gynecology Comment on above: Vulvar irritation (P rimary Dx); Vulvar burning; Postmenopausal; Vaginal atrophy; Vaginal discharge Start: 08-08-2025 End: 08-08-2025 ambulatory PASTORA MURPHY Facility:[facility] Start: 08-04-2025 End: 08-05-2025 Telephone encounter Felix Wu APRN.SUPPOSITORY MOLDING MACHINE OPERATOR Work Phone: Neurology Comment on above: Appointment Start: 07-27-2025 ambulatory DARREN Travis y:[facility] Start: 07-27-2025 End: 07-27-2025 Subsequent hospital visit by physician [employer] [facility] W[facility] (I-Stat/1.5t) Work Phone: Radiology Comment on above: Spinal stenosis of c ervical region [M48.02] Start: 05-03-2025 End: 05-03-2025 ambulatory Evi Pantoja CCC-HEALTHCARE ADMINISTRATIVE ASSISTANT [facility] Comment on above: Spastic dysarthria Start: 05-03-2025 End: 05-03-2025 ambulatory Jennifer Lockett OTR/L Work Phone: [facility] Comment on above: Decreased personal development coach stren gth of right hand (Primary Dx); Cervical spondylosis with myelopathy; Neuropathy Start: 04-26-2025 End: 04-26-2025 OT/PT/Speech Visit [facility] Comment on above: Radiculopathy, cervi ceasar region (Primary Dx); Cervical spondylosis with myelopathy; Neuropathy; Radiculopathy, lumbar region; Multifactorial gait disorder Start: 04-11-2025 End: 04-11-2025 Office outpatient new 60 minutes Darren Mercado MD Work Phone: Neurology [facility] Comment on above: Cervical spondylosis with myelopathy (Primary Dx); Neuropathy; Radiculopathy, lumbar region; Multifactorial gait disorder; Spastic dysarthria; Spinal stenosis of cervical region; Decline in verbal memory; Unspecified ptosis of right eyelid; History of falling Start: 04-11-2025 End: 04-11-2025 ambulatory DARREN MERCADO Facility:[facility] Start: 04-11-2025 End: 04-11-2025 Telephone encounter Darren Mercado MD Work Phone: [facility] Comment on above: Appointment (Called patient to schedule a [facility] [employer] Consult Appt. for memory loss per staff message and left a message to schedule it as soon as she can near her home location (if it were avaliable) .) Start: 03-18-2025 End: 05-18-2025 Follow-up encounter Emily Haney APRN.CNP Work Phone: OB/Gynecology Start: 03-17-2025 End: 03-17-2025 ambulatory LAKEISHA LEMONS Facility:[facility] Start: 03-17-2025 Encounter for gynecological examination (general) (routine) without abnormal findings LAKEISHA LEMONS [facility] Start: 02-28-2025 ambulatory Summer Anaid Facility: [facility] Start: 02-08-2025 End: 02-08-2025 ambulatory [facility] Start: 02-08-2025 End: 02-08-2025 Patient encounter procedure Denisha Steiner PA-C Work Phone: Neurology Comment on above: Frequent falls (Prim saritha Dx); Paresthesia of skin; Generalized weakness; NPH (normal pressure hydrocephalus) (HCC); Memory loss Start: 01-13-2025 End: 01-21-2025 Follow-up encounter Denisha Steiner PA-C Work Phone: Neurology Start: 01-12-2025 End: 01-12-2025 ambulatory [facility] Facility:[facility] Start: 01-12-2025 End: 01-12-2025 Subsequent hospital visit by physician [facility] Wstr (I-Stat/1.5t) Work Phone: Radiology Comment on above: Cerebral infarction, unspecified mechanism (HCC) [I63.9] Start: 01-11-2025 End: 01-12-2025 Telephone encounter Denisha Steiner PA-C Work Phone: Neurology Comment on above: Patient Update Start: 01-04-2025 End: 01-04-2025 ambulatory [facility] Facility:[facility] Start: 01-04-2025 End: 01-04-2025 Patient encounter procedure Denisha Steiner PA-C Work Phone: Neurology Comment on above: Paresthesia of skin (Primary Dx); Cerebral infarction, unspecified mechanism (HCC); Generalized weakness; Frequent falls Start: 11-08-2024 ambulatory [facility] Facility: [facility] Start: 10-13-2024 End: 10-13-2024 ambulatory [facility] Facility:[facility] Start: 09-23-2024 End: 09-23-2024 ambulatory [facility] Facility:[facility] Start: 03-19-2024 Non-patient / Non-visit Dr. Summer Worrell Work Phone: [facility] Start: 03-19-2024 End: 03-19-2024 Admission to same day surgery center Dr. Summer Worrell Work Phone: [facility]-Endoscopy Work Phone: Start: 03-19-2024 End: 03-19-[address] Summer Worrell Work Phone: [facility] Work Phone: Start: 03-18-2024 Non-patient / Non-visit Dr. Summer Worrell Work Phone: [facility] Start: 03-13-2024 End: 03-13-[address] Summer Worrell Work Phone: [facility] Work Phone: Start: 03-13-2024 End: 03-13-[address] Summer Worrell Work Phone: [facility]-Medical Out Work Phone: Start: 03-11-2024 End: 03-29-2024 Evaluation and management of inpatient Dr. Summer Worrell Work Phone: [facility]-Transitional Care Unit Start: 03-11-2024 Non-patient / Non-visit Dr. Summer Worrell Work Phone: [facility] Work Phone: Start: 03-10-2024 Non-patient / Non-visit Dr. Summer Worrell Work Phone: [facility] Work Phone: Start: 03-09-2024 Non-patient / Non-visit Dr. Summer Worrell Work Phone: [facility] Work Phone: Start: 03-08-2024 Non-patient / Non-visit Dr. Summer Worrell Work Phone: [facility] Work Phone: Start: 03-07-2024 End: 03-11-2024 Evaluation and management of inpatient Dr. Summer Worrell Work Phone: [facility]-Medical Surgical 3 Work Phone: Start: 03-02-2024 End: 03-02-[address] Summer Worrell Work Phone: [facility] Work Phone: Start: 03-02-2024 End: 03-02-[address] Summer Worrell Work Phone: [facility]-Laboratory, [facility]ia [facility] Start: 02-25-[address] Summer Worrell Work Phone: [facility]-Physical Therapy Work Phone: Start: 02-03-2024 End: 02-03-[address] Summer Worrell Work Phone: [facility] Work Phone: Start: 02-03-2024 End: 02-03-[address] Summer Worrell Work Phone: [facility]-Laboratory, Specimen Work Phone: Start: 01-27-2024 End: 01-27-2024 Emergency department patient visit Dr. Summer Worrell Work Phone: [facility]-Emergency Department Work Phone: Start: 01-20-2024 End: 01-20-[address] Summer Worrell Work Phone: [facility] Work Phone: Start: 01-20-2024 End: 01-20-[address] Summer Worrell Work Phone: [facility]-Laboratory, Specimen Work Phone: Start: 01-19-2024 End: 01-19-[address] Summer Worrell Work Phone: [facility] Work Phone: Start: 01-19-2024 End: 01-19-[address] Summer Worrell Work Phone: [facility] Start: 01-16-[address] Summer Worrell Work Phone: [facility]-Physical Therapy Work Phone: Start: 12-24-2023 End: 12-24-[address] Summer Worrell Work Phone: [facility] Work Phone: Start: 12-24-2023 End: 12-24-[address] Summer Worrell Work Phone: [facility] Work Phone: Start: 12-18-[address] Summer Worrell Work Phone: [facility]-Physical Therapy Work Phone: Start: 11-12-2023 End: 11-12-[address] Summer Worrell Work Phone: [facility] Work Phone: Start: 11-08-2023 End: 11-08-[address] Summer Worrell Work Phone: [facility] Work Phone: Start: 11-08-2023 End: 11-08-[address] Summer Worrell Work Phone: [facility] Work Phone: Start: 10-20-2023 End: 10-20-[address] Summer Worrell Work Phone: [facility] Work Phone: Start: 10-01-2023 End: 10-01-[address] Summer Worrell Work Phone: [facility] Work Phone: Start: 10-01-2023 End: 10-01-[address] Summer Worrell Work Phone: [facility] Work Phone: Start: 09-04-2023 Non-patient / Non-visit Dr. Summer Worrell Work Phone: [facility] Start: 09-04-2023 End: 09-04-[address] Summer Worrell Work Phone: [facility] Work Phone: Start: 09-04-2023 End: 09-04-[address] Summer Worrell Work Phone: [facility]-Cardiovascular Services Work Phone: Start: 09-03-2023 End: 09-03-[address] Summer Worrell Work Phone: [facility] Work Phone: Start: 09-03-2023 End: 09-03-[address] Summer Worrell Work Phone: [facility]-Laboratory, Specimen Work Phone: Start: 09-03-2023 End: 09-03-[address] Summer Worrell Work Phone: [facility] Work Phone: Start: 08-28-2023 End: 08-28-[address] Summer Worrell Work Phone: [facility]-Laboratory, [place] [facility] Start: 07-24-2023 End: 07-24-[address] Summer Worrell Work Phone: [facility] Work Phone: Start: 07-24-2023 End: 07-24-[address] Summer Worrell Work Phone: [facility]-Laboratory, Specimen Work Phone: Start: 07-24-2023 End: 07-24-[address] Summer Worrell Work Phone: [facility] Work Phone: Start: 07-16-2023 End: 07-16-2023 ambulatory Emg 850) Neurology Comment on above: Arrived Start: 07-16-2023 End: 07-16-2023 Patient encounter procedure Emg 2 Neur [place] (Max Weight: 850) ROSI Start: 07-15-2023 End: 07-15-2023 Patient encounter procedure Analisa Holden MD Work Phone: Neurology Comment on above: Gait instability (Pr imary Dx) Start: 06-04-2023 End: 06-04-[address] Summer Worrell Work Phone: [facility] Work Phone: Start: 06-04-2023 End: 06-04-[address] Summer Worrell Work Phone: [facility]-Cat Scan, [facility] Work Phone: Start: 04-17-2023 End: 04-17-2023 Emergency department patient visit Dr. Summer Worrell Work Phone: [facility]-Emergency Department Work Phone: Start: 04-08-2023 End: 04-08-2023 ambulatory [facility] Work Phone: Start: 04-08-2023 End: 04-08-2023 Discharged Recurring [facility]-Physical Therapy Work Phone: Start: 04-08-[address] Summer Worrell Work Phone: [facility]-Physical Therapy Work Phone: Start: 03-28-2023 Telephone encounter Lexi leung CONTINUOUS IMPROVEMENT SPECIALIST.SUPPOSITORY MOLDING MACHINE OPERATOR Work Phone: OB/Gynecology Comment on above: Results Start: 03-27-2023 End: 03-27-2023 Patient encounter procedure Lexi Whipplecalf CONTINUOUS IMPROVEMENT SPECIALIST.SUPPOSITORY MOLDING MACHINE OPERATOR Work Phone: OB/Gynecology Comment on above: Vaginal irritation ( Primary Dx) Start: 02-13-2023 End: 02-13-[address] Summer Worrell Work Phone: [facility] Work Phone: Start: 11-01-2022 End: 11-01-2022 ambulatory [facility] Work Phone: Start: 11-01-2022 End: 11-01-2022 Patient encounter procedure [facility]-Laboratory, [facility] Start: 07-04-2022 End: 07-04-2022 Admission to same day surgery center [facility]-Surgical Day Care Start: 06-28-2022 End: 06-28-2022 Patient encounter procedure [facility]-Laboratory, Specimen Start: 08-07-2018 Ophthalmic examinati on and evaluation Lexi Benjamin CONTINUOUS IMPROVEMENT SPECIALIST.SUPPOSITORY MOLDING MACHINE OPERATOR Work Phone: [facility] Start: 02-18-2018 Patient encounter procedure Lexi Benjamin CONTINUOUS IMPROVEMENT SPECIALIST.SUPPOSITORY MOLDING MACHINE OPERATOR Work Phone: [facility] Work Phone: Start: 08-20-2017 Patient encounter status Lexi Whipplecalf CONTINUOUS IMPROVEMENT SPECIALIST.SUPPOSITORY MOLDING MACHINE OPERATOR Work Phone: [facility] Work Phone: Procedures Date Procedure Procedure Detail Performing Clinician Start: 08-08-2025 BACTERIAL VAGINOSIS NAAT Pastora Murphy CONTINUOUS IMPROVEMENT SPECIALIST.CNM Work Phone: Start: 08-08-2025 Iadna trichomonas vaginalis amplified probe tech Pastora Jeffrey GRIJALVA.CNM Work Phone: Start: 07-27-2025 Mri spinal canal cervical w/o contrast matrl Darren Mercado MD Work Phone: Start: 01-12-2025 Mri brain brain stem w/o contrast material Denisha Steiner PA-C Work Phone: Start: 03-24-2024 Plain X-ray of femur Dr. Summer Worrell Work Phone: Start: 03-19-[address] Summer parker Work Phone: Start: 03-17-2024 Measurement of occult blood in stool specimen using immunoassay Dr. Summer Worrell Work Phone: Start: 03-09-[address] Summer Worrell Work Phone: Start: 03-08-[address] Summer Worrell Work Phone: Start: 03-08-2024 Plain x-ray of pelvis and lower extremity Dr. Summer Worrell Work Phone: Start: 03-08-2024 Open reduction of fracture of femur with internal fixation Dr. Summer Worrell Work Phone: Start: 03-07-2024 Plain X-ray of femur Dr. Summer Worrell Work Phone: Start: 03-07-2024 End: 03-07-2024 Pelvis X-ray Dr. Summer Worrell Work Phone: Start: 02-03-[address] Summer Worrell Work Phone: Start: 01-27-2024 Plain x-ray of elbow Dr. Summer Worrell Work Phone: Start: 01-27-2024 Plain X-ray of shoulder Dr. Summer seo Work Phone: Start: 01-22-[address] Summer Worrell Work Phone: Start: 11-12-2023 Plain x-ray of pelvis and lower extremity Dr. Summer Worrell Work Phone: Start: 11-08-2023 MRI of cervical spine Dr[address] Summer Worrell Work Phone: Start: 11-08-2023 MRI of thoracic spine Dr. Summer Worrell Work Phone: Start: 10-20-2023 X-ray of cervical spine Dr. Summer seo Work Phone: Start: 10-20-2023 X-ray of lumbar spine, two or three views Dr. Summer Worrell Work Phone: Start: 10-01-2023 MRI of lumbar spine Dr. Summer Worrell Work Phone: Start: 09-03-2023 Cytopathology procedure, preparation of smear, genital source Dr. Summer Worrell Work Phone: Start: 09-03-2023 Investigation of transfusion reaction Dr. Summer Worrell Work Phone: Start: 07-24-2023 Cytopathology procedure, preparation of smear, genital source Dr. Summer Worrell Work Phone: Start: 07-24-2023 Investigation of transfusion reaction Dr. Summer Worrell Work Phone: Start: 07-16-2023 Nerve conduction studies 5-6 studies Analisa Holden MD Work Phone: Start: 06-04-2023 CT of head without contrast Dr. Summer grubbs Work Phone: Start: 04-17-2023 X-ray of chest posteroanterior view Dr. Summer Worrell Work Phone: Start: 04-17-2023 Bacteria identified in Urine by Culture Dr. Summer Worrell Work Phone: Start: 04-17-[address] Summer Worrell Work Phone: Start: 04-17-2023 Computed tomography of abdomen and pelvis with intravenous contrast Dr. Summer Worrell Work Phone: Start: 07-04-2022 Vaginal Sling, Tension Free,Cysto (Not Applicable) Start: 07-18-2017 Mammography Lexi Benjamin CONTINUOUS IMPROVEMENT SPECIALIST.SUPPOSITORY MOLDING MACHINE OPERATOR Work Phone: Start: 04-25-2008 Colonoscopy Lexi Whipplecalf CONTINUOUS IMPROVEMENT SPECIALIST.SUPPOSITORY MOLDING MACHINE OPERATOR Work Phone: Urine culture Plan of Treatment Date Care Activity Detail Author Start: 01-27-2031 Urine microalbumin profile DTaP,Tdap,Td Vaccine (4 - Td or Tdap) [facility] Start: 03-17-2026 End: 03-17-2026 Patient encounter procedure 03/17/2026 2:20 PM EDT Office Visit OB/Gynecology [address] [place], [place] [phone] Lakeisha Lemons MD [address] [place], [place] [id number] Annual OB/Gynecology Comment on above: Annual Start: 11-16-2025 End: 11-16-2025 Patient encounter procedure 11/16/2025 9:00 AM EST Office Visit Neurology [address] [place], [place] [id number] Barbie Naylor MD [address] [place] [id number] Decline in verbal memory [R41.3] AWARE MAIN Neurology Comment on above: Decline in verbal memory [R41.3] AWARE M AIN Start: 08-29-2025 End: 08-29-2025 Patient encounter procedure 08/29/2025 2:45 PM EDT Office Visit OB/Gynecology [address] [place], [place] [id number] Pastora Murphy APRN.CN [address] [place], [place] [phone] Vulva Biopsy OB/Gynecology Comment on above: Vulva Biopsy Start: 08-17-2025 End: 08-17-2025 Patient encounter procedure 08/17/2025 8:30 AM EDT Office Visit Neurology [address] [address] Polly Vasquez MD [address] [place] [address] Decline in verbal memory [R41.3] Neurology Comment on above: Decline in verbal memory [R41.3] Start: 08-12-2025 End: 08-12-2025 Patient encounter procedure 08/12/2025 11:00 AM EDT Office Visit Neurology [address] [address] Felix Wu, CONTINUOUS IMPROVEMENT SPECIALIST.SUPPOSITORY MOLDING MACHINE OPERATOR [address] [place], [place] [id number] neuropathy/ muscular weakness Neurology Comment on above: neuropathy/ muscular weakness Start: 08-08-2025 End: 08-08-2025 Patient encounter procedure 08/08/2025 9:30 AM EDT Office Visit OB/Gynecology [address] [place] [address] Pastora Murphy APRN.CN [address] [place] [place] [address] (Fax) Vaginal pain OB/Gynecology Comment on above: Vaginal pain Start: 08-05-2025 End: 08-05-2025 Patient encounter procedure 08/05/2025 11:00 AM EDT Office Visit Neurology [address] [address] Felix Wu, CONTINUOUS IMPROVEMENT SPECIALIST.SUPPOSITORY MOLDING MACHINE OPERATOR [address] [facility] [place] [phone] Cervical spondylosis with myelopathy [M47.12] Neurology Comment on above: Cervical spondylosis with myelopathy [M4 7.12] Start: 07-25-[address] [facility] Start: 07-13-2025 End: 07-13-2025 Patient encounter procedure 07/13/2025 11:30 AM EDT Office Visit Neurology [address] [place] [address] Denisha Steiner PA-C [address] [place] [address] Balance F/U Neurology Comment on above: Balance F/U Start: 06-17-2025 End: 06-17-2025 Patient encounter procedure 06/17/2025 4:40 PM EDT Office Visit Neurology [address] [place], [place] [address] Shilo Tinoco Jr., MD [address] [place], [place] [phone] 4MO OV Neurology Comment on above: 4MO OV Start: 05-03-2025 End: 05-03-2025 ambulatory 05/03/2025 3:30 PM EDT OT/PT/Speech Visit [facility] [address] [place] [address] Evi Pantoja, ANA-HEALTHCARE ADMINISTRATIVE ASSISTANT Spastic dysarthria [facility] Comment on above: Spastic dysarthria Start: 05-03-2025 End: 05-03-2025 ambulatory 05/03/2025 2:15 PM EDT OT/PT/Speech Visit [facility] [address] [place] [phone] Jennifer Lockett, OTR/L [address] [place] [address] Neuropathy [facility] Comment on above: Neuropathy Start: 04-11-2025 End: 04-11-2025 Patient encounter procedure 04/11/2025 3:00 PM EDT Office Visit Neurology Movement [facility] [address] [place] [address] Darren Mercado MD [address] [place] [address] NPH (normal pressure hydrocephalus) (HCC) [G91.2 Neurology [facility] Comment on above: NPH (normal pressure hydrocephalus) (HCC ) [G91.2 Start: 02-08-2025 End: 02-08-2025 Patient encounter procedure 02/08/2025 8:00 AM EDT Office Visit Neurology [address] [place], [place] [phone] Denisha Steiner PA-C [address] [place], [place] [phone] Go over Mri Results Neurology Comment on above: Go over Mri Results Start: 01-19-2025 End: 01-19-2025 ambulatory 01/19/2025 12:45 PM EST Procedure Neurology [address] [place] [phone] Paresthesia of skin [R20.2] Neurology Comment on above: Paresthesia of skin [R20.2] Start: 01-12-2025 End: 01-12-2025 Patient encounter procedure 01/12/2025 2:00 PM EST Appointment Radiology [address] [place] [address] Dx: Cerebral infarction, unspecified mechanism (HCC) [I63.9]; Frequent falls [R29.6] Radiology Comment on above: Dx: Cerebral infarction, unspecified mec hanism (HCC) [I63.9]; Frequent falls [R29.6] Start: 2025 RSV Vaccine (1 - 1-dose 75+ series) RSV Vaccine (1 - 1-dose 75+ series) [facility] Start: 11-24-2024 Advance Directive Discussion Advance Directive Discussion [facility] Start: 11-24-2024 Medicare Advantage Annual Wellness Visit Medicare Advantage Annual Wellness Visit [facility] Start: 07-25-2024 Covid-19 Vaccine ( season) Covid-19 Vaccine ( season) [facility] Start: 07-25-2024 Influenza vaccination Influenza Vaccine (#1) [facility] Start: 04-09-2024 Blood chemistry [facility] Start: 04-02-2024 Blood chemistry [facility] Start: 03-29-2024 Development of care plan [facility] Start: 03-29-2024 Patient discharge [facility] Start: 03-26-2024 Blood chemistry [facility] Start: 03-24-2024 Femur Min 2 Views Femur Min 2 Views [facility] Start: 03-24-2024 XR Femur 2 Views [facility] Start: 03-19-2024 Egd transoral biopsy single/multiple EGD BIOPSY SINGLE/MULTIPLE [facility] Start: 03-19-2024 Egd transoral control bleeding any method EGD CONTROL BLEEDING ANY [facility] Start: 03-19-2024 Blood chemistry [facility] Start: 03-19-2024 Patient discharge [facility] Start: 03-18-2024 [facility] Start: 03-17-2024 Referral to gastroenterology service [facility] Start: 03-17-2024 [facility] Start: 03-15-2024 Contact precautions [facility] Start: 03-14-2024 [facility] Start: 03-13-2024 Administration of blood product [facility] Start: 03-13-2024 Following clinical pathway protocol [facility] Start: 03-13-2024 Administration of blood product [facility] Start: 03-13-2024 End: 03-14-2024 [facility] Start: 03-12-2024 End: 03-13-2024 [facility] Start: 03-12-2024 Developing a treatment plan [facility] Start: 03-12-2024 Speech therapy management [facility] Start: 03-12-2024 Development of care plan [facility] Start: 03-12-2024 Administration of blood product [facility] Start: 03-11-2024 [facility] Start: 03-11-2024 Speech therapy assessment [facility] Start: 03-11-2024 Wound care [facility] Start: 03-11-2024 Verification routine [facility] Start: 03-11-2024 Following clinical pathway protocol [facility] Start: 03-11-2024 Admission procedure [facility] Start: 03-11-2024 Measuring intake and output [facility] Start: 03-11-2024 Patient referral to dietitian [facility] Start: 03-11-2024 Referral to occupational therapist [facility] Start: 03-11-2024 Referral to service [facility] Start: 03-11-2024 Vital signs measurements [facility] Start: 03-11-2024 End: 03-11-2024 [facility] Start: 03-11-2024 Patient discharge [facility] Start: 03-11-2024 Application of device [facility] Start: 03-09-2024 Recommendation to continue with treatment [facility] Start: 03-09-2024 Measuring intake and output [facility] Start: 03-09-2024 Application of ice collar, cap or bag [facility] Start: 03-08-2024 Ambulation therapy management [facility] Start: 03-08-2024 Application of device [facility] Start: 03-08-2024 Exercises [facility] Start: 03-08-2024 Following clinical pathway protocol [facility] Start: 03-08-2024 Introduction of urinary catheter [facility] Start: 03-08-2024 Neurovascular assessment [facility] Start: 03-08-2024 Patient education [facility] Start: 03-08-2024 Provision of activity privileges [facility] Start: 03-08-2024 Referral to occupational therapist [facility] Start: 03-08-2024 Referral to service [facility] Start: 03-08-2024 Vital signs measurements [facility] Start: 03-08-2024 Wound care [facility] Start: 03-08-2024 [facility] Start: 03-08-2024 Open reduction of fracture of femur with internal fixation ORIF, Hip, Gamma Nail (Left) [facility] Start: 03-08-2024 Referral to occupational therapist [facility] Start: 03-08-2024 Referral to service [facility] Start: 03-08-2024 Application of intermittent pneumatic compression device [facility] Start: 03-08-2024 End: 03-08-2024 Measuring intake and output [facility] Start: 03-08-2024 Care regimes management [facility] Start: 03-08-2024 Notification of physician [facility] Start: 03-08-2024 Application of ice collar, cap or bag [facility] Start: 03-08-2024 Assessment of risk of venous thromboembolism [facility] Start: 03-08-2024 Bedrest [facility] Start: 03-08-2024 Neurovascular assessment [facility] Start: 03-08-2024 Skin care [facility] Start: 03-08-2024 End: 03-08-2024 [facility] Start: 03-08-2024 Fluoroscopic guidance O.R. Fluoro for C-Arm [facility] Start: 03-08-2024 Plain x-ray of pelvis and lower extremity Hip 1 view with Pelvis [facility] Start: 03-08-2024 End: 03-08-2024 [facility] Start: 03-08-2024 Application of mechanical traction on skin [facility] Start: 03-07-2024 Application of intermittent pneumatic compression device [facility] Start: 03-07-2024 Following clinical pathway protocol [facility] Start: 03-07-2024 Assessment of risk of venous thromboembolism [facility] Start: 03-07-2024 Consultation [facility] Start: 03-07-2024 Documentation procedure [facility] Start: 03-07-2024 Incentive spirometry [facility] Start: 03-07-2024 Insertion of catheter into peripheral vein [facility] Start: 03-07-2024 Measuring intake and output [facility] Start: 03-07-2024 Oxygen therapy [facility] Start: 03-07-2024 Providing care according to standard [facility] Start: 03-07-2024 Referral to service [facility] Start: 03-07-2024 [facility] Start: 03-07-2024 Verification routine [facility] Start: 03-07-2024 Admission procedure [facility] Start: 03-07-2024 Application of ice collar, cap or bag [facility] Start: 01-27-2024 [facility] Start: 01-22-2024 [facility] Start: 01-22-2024 Bacteria identified in Urine by Culture [facility] Start: 07-25-[address] [facility] Start: 07-15-2023 End: 09-14-2023 25-hydroxyvitamin D3 [Mass/volume] in Serum or Plasma VITAMIN D 25 HYDROXY Lab Routine Gait instability Expected: 07/15/2023, Expires: 09/14/2023 [facility] Work Phone: Comment on above: Expected: 07/15/2023, Expires: Start: 07-15-2023 End: 09-14-2023 Cobalamin (Vitamin B12) [Mass/volume] in Serum or Plasma VITAMIN B12 BLOOD Lab Routine Gait instability Expected: 07/15/2023, Expires: 09/14/2023 [facility] Work Phone: Comment on above: Expected: 07/15/2023, Expires: Start: 07-15-2023 End: 09-14-2023 Methylmalonate [Moles/volume] in Serum or Plasma METHYLMALONIC ACID Lab Routine Gait instability Expected: 07/15/2023, Expires: 09/14/2023 [facility] Work Phone: Comment on above: Expected: 07/15/2023, Expires: 3 Start: 07-15-2023 End: 09-14-2023 MONOCLONAL PROT UR W/INTERP MONOCLONAL PROT UR W/INTERP Lab Routine Gait instability Expected: 07/15/2023, Expires: 09/14/2023 [facility] Work Phone: Comment on above: Expected: 07/15/2023, Expires: Start: 07-15-2023 End: 09-14-2023 MONOCLONAL PROTEIN, SERUM (BLOOD) MONOCLONAL PROTEIN, SERUM (BLOOD) Lab Routine Gait instability Expected: 07/15/2023, Expires: 09/14/2023 [facility] Work Phone: Comment on above: Expected: 07/15/2023, Expires: Start: 01-13-2023 COVID-19 VACCINE (5 - Pfizer series) COVID-19 VACCINE (5 - Pfizer series) [facility] Start: 11-24-2022 ADVANCE DIRECTIVE DISCUSSION ADVANCE DIRECTIVE DISCUSSION [facility] Start: 07-04-2022 Patient discharge [facility] Work Phone: Start: 01-21-2022 Hemoglobin A1c measurement HbA1C [facility] Start: 01-21-2022 Hemoglobin A1c/Hemoglobin.total in Blood HBA1C [facility] Start: 08-07-2019 Glaucoma screening Dilated Retinal Exam [facility] Start: 08-07-2019 Hepatitis C antibody, confirmatory test DILATED RETINAL EXAM [facility] Start: 04-15-2019 ANNUAL PCP TEAM CHRONIC DISEASE VISIT ANNUAL PCP TEAM CHRONIC DISEASE VISIT [facility] Start: 03-30-2019 FECAL OCCULT BLOOD FECAL OCCULT BLOOD [facility] Start: 03-30-2019 Screening for malignant neoplasm of colon Fecal Occult Blood [facility] Start: 02-13-2019 Hepatitis B surface antibody level LDL CHOLESTEROL [facility] Start: 11-24-2018 Urine microalbumin profile DTAP,TDAP,TD (3 - Td or Tdap) [facility] Start: 08-20-2018 3 comp foot exam completed DIABETIC FOOT EXAM [facility] Start: 08-20-2018 Diabetic foot examination Diabetic Foot Exam [facility] Start: 08-20-2018 Hepatitis B screening URINE ALBUMIN:CREATININE RATIO [facility] Start: 08-16-2018 Hemoglobin A1c/Hemoglobin.total in Blood HBA1C [facility] Start: 07-18-[address] [facility] Start: 07-18-2018 Screening for malignant neoplasm of breast Mammogram Screening [facility] Start: 04-25-[address] [facility] Start: 04-25-2018 COLORECTAL CANCER SCREENING COLORECTAL CANCER SCREENING [facility] Start: 04-25-2018 Screening for malignant neoplasm of colon [facility] Start: 10-15-2017 PNEUMOCOCCAL: 65+ (2 - PPSV23 if available, else PCV20) PNEUMOCOCCAL: 65+ (2 - PPSV23 if available, else PCV20) [facility] Start: 10-15-2017 PNEUMOCOCCAL: 65+ (2 - PPSV23 or PCV20) PNEUMOCOCCAL: 65+ (2 - PPSV23 or PCV20) [facility] Start: 07-24-2017 End: 07-24-2017 Appointment Appointment [facility] Work Phone: Start: 07-24-2017 End: 07-24-2017 Thyroid stimulating hormone (TSH) *TSH [facility] Work Phone: Start: 07-24-2017 End: 07-24-2017 Thyroxine (T4) free *T4 free [facility] Work Phone: Start: 07-24-2017 End: 07-24-2017 Triiodothyronine (T3) free *T3-Free [facility] Work Phone: Start: 07-15-2015 SHINGRIX VACCINE (2 of 3) SHINGRIX VACCINE (2 of 3) [facility] Start: 2000 Influenza vaccination LUNG CANCER SCREENING [facility] Start: 2000 Screening for malignant neoplasm of lung Lung Cancer Screening [facility] Start: 1995 COLOGUARD (FIT-DNA) COLOGUARD (FIT-DNA) [facility] Start: [address] [facility] Start: 1995 Screening for malignant neoplasm of colon [facility] Start: [address] [facility] Start: 1968 ANNUAL PCP TEAM CHRONIC DISEASE VISIT ANNUAL PCP TEAM CHRONIC DISEASE VISIT [facility] Start: 1968 BP CONTROLLED (<130/80) BP CONTROLLED (<130/80) [facility] Start: 1968 zzBP Controlled (<130/80) (Retired) zzBP Controlled (<130/80) (Retired) [facility] Alanine aminotransferase [Enzymatic activity/volume] in Serum or Plasma [facility] Albumin [Mass/volume ] in Serum or Plasma [facility] Alkaline phosphatase [Enzymatic activity/volume] in Serum or Plasma [facility] Anion gap measurement [facility] Anion gap measurement [facility] Anion gap measurement [facility] Anion gap measurement [facility] Anion gap measurement [facility] Aspartate aminotransferase [Enzymatic activity/volume] in Serum or Plasma [facility] BACTERIAL VAGINOSIS AMPLIFICATION BACTERIAL VAGINOSIS AMPLIFICATION Lab Routine Vaginal irritation 03/27/2023 9:17 AM EDT [facility] Work Phone: Bilirubin, total measurement [facility] BUN/Creatinine ratio [facility] BUN/Creatinine ratio [facility] BUN/Creatinine ratio [facility] BUN/Creatinine ratio [facility] BUN/Creatinine ratio [facility] Calcium [Mass/volume ] in Serum or Plasma [facility] Calcium [Mass/volume ] in Serum or Plasma [facility] Calcium [Mass/volume ] in Serum or Plasma [facility] Calcium [Mass/volume ] in Serum or Plasma [facility] Calcium [Mass/volume ] in Serum or Plasma [facility] JOAN / TRICHOMONA S AMPLIFICATION JOAN / TRICHOMONAS AMPLIFICATION Microbiology Routine Vaginal irritation 03/27/2023 9:17 AM EDT [facility] Work Phone: Carbon dioxide, tota l [Moles/volume] in Serum or Plasma [facility] Carbon dioxide, tota l [Moles/volume] in Serum or Plasma [facility] Carbon dioxide, tota l [Moles/volume] in Serum or Plasma [facility] Carbon dioxide, tota l [Moles/volume] in Serum or Plasma [facility] Carbon dioxide, tota l [Moles/volume] in Serum or Plasma [facility] Chloride [Moles/volu me] in Serum or Plasma [facility] Chloride [Moles/volu me] in Serum or Plasma [facility] Chloride [Moles/volu me] in Serum or Plasma [facility] Chloride [Moles/volu me] in Serum or Plasma [facility] Chloride [Moles/volu me] in Serum or Plasma [facility] Creatinine [Moles/volume] in Serum or Plasma [facility] Creatinine [Moles/volume] in Serum or Plasma [facility] Creatinine [Moles/volume] in Serum or Plasma [facility] Creatinine [Moles/volume] in Serum or Plasma [facility] Creatinine [Moles/volume] in Serum or Plasma [facility] End: 07-15-2024 EMG(NEURO/NI) EMG(NEURO/NI) EMG Routine Gait instability 1 Occurrences starting 07/15/2023 until 07/15/2024 [facility] Work Phone: Comment on above: 1 Occurrences starting 07/15/2023 until 07/15/2024 Endometrial bx w/wo endocervix bx w/o dilat spx ENDOMETRIAL BIOPSY Procedures Routine Vulvar irritation Vulvar burning Postmenopausal Ordered: 08/08/2025 [facility] Work Phone: Comment on above: Ordered: 08/08/2025 Erythrocyte mean corpuscular volume determination [facility] Erythrocyte mean corpuscular volume determination [facility] Erythrocyte mean corpuscular volume determination [facility] Erythrocyte mean corpuscular volume determination [facility] Erythrocyte mean corpuscular volume determination [facility] Glucose [Mass/volume ] in Serum or Plasma [facility] Glucose [Mass/volume ] in Serum or Plasma [facility] Glucose [Mass/volume ] in Serum or Plasma [facility] Glucose [Mass/volume ] in Serum or Plasma [facility] Glucose [Mass/volume ] in Serum or Plasma [facility] Hematocrit [Volume Fraction] of Blood [facility] Hematocrit [Volume Fraction] of Blood [facility] Hematocrit [Volume Fraction] of Blood [facility] Hematocrit [Volume Fraction] of Blood [facility] Hematocrit [Volume Fraction] of Blood [facility] Hemoglobin [Mass/volume] in Blood [facility] Hemoglobin [Mass/volume] in Blood [facility] Hemoglobin [Mass/volume] in Blood [facility] Hemoglobin [Mass/volume] in Blood [facility] Hemoglobin [Mass/volume] in Blood [facility] Leukocytes [#/volume ] in Blood [facility] Leukocytes [#/volume ] in Blood [facility] Leukocytes [#/volume ] in Blood [facility] Leukocytes [#/volume ] in Blood [facility] Leukocytes [#/volume ] in Blood [facility] Magnesium [Mass/volu me] in Serum or Plasma [facility] Mean corpuscular hemoglobin concentration determination [facility] Mean corpuscular hemoglobin concentration determination [facility] Mean corpuscular hemoglobin concentration determination [facility] Mean corpuscular hemoglobin concentration determination [facility] Mean corpuscular hemoglobin concentration determination [facility] Mean corpuscular hemoglobin determination [facility] Mean corpuscular hemoglobin determination [facility] Mean corpuscular hemoglobin determination [facility] Mean corpuscular hemoglobin determination [facility] Mean corpuscular hemoglobin determination [facility] Measurement of renal function [facility] Measurement of renal function [facility] Measurement of renal function [facility] Measurement of renal function [facility] Measurement of renal function [facility] End: 02-03-2026 MR Brain WO contrast MRI BRAIN WO IVCON Radiology Routine Cerebral infarction, unspecified mechanism (HCC) Frequent falls 1 Occurrences starting 01/04/2025 until 02/03/2026 [facility] Work Phone: Comment on above: 1 Occurrences starting 01/04/2025 until 02/03/2026 End: 05-11-2026 MR Cervical spine WO contrast MRI CERVICAL SPINE WO [facility]NER Radiology Routine Spinal stenosis of cervical region 1 Occurrences starting 04/11/2025 until 05/11/2026 [facility] Work Phone: Comment on above: 1 Occurrences starting 04/11/2025 until 05/11/2026 Neutrophil count [facility] Neutrophil count [facility] Neutrophil count [facility] Neutrophil count [facility] Neutrophil count [facility] Neutrophil percent differential count [facility] Neutrophil percent differential count [facility] Neutrophil percent differential count [facility] Neutrophil percent differential count [facility] Neutrophil percent differential count [facility] Patient Education [facility] Work Phone: Patient referral [facility] Work Phone: Platelets [#/volume] in Blood [facility] Platelets [#/volume] in Blood [facility] Platelets [#/volume] in Blood [facility] Platelets [#/volume] in Blood [facility] Platelets [#/volume] in Blood [facility] Potassium [Moles/volume] in Serum or Plasma [facility] Potassium [Moles/volume] in Serum or Plasma [facility] Potassium [Moles/volume] in Serum or Plasma [facility] Potassium [Moles/volume] in Serum or Plasma [facility] Potassium [Moles/volume] in Serum or Plasma [facility] Red blood cell count [facility] Red blood cell count [facility] Red blood cell count [facility] Red blood cell count [facility] Red blood cell count [facility] Red cell distributio n width determination [facility] Red cell distributio n width determination [facility] Red cell distributio n width determination [facility] Red cell distributio n width determination [facility] Red cell distributio n width determination [facility] Serum inorganic phosphate measurement [facility] SKIN BIOPSY FOR NEUROPATHY/CNL SKIN BIOPSY FOR NEUROPATHY/CNL Procedures Routine Paresthesia of skin Ordered: 01/04/2025 [facility] Comment on above: Ordered: 01/04/2025 Sodium [Moles/volume ] in Serum or Plasma [facility] Sodium [Moles/volume ] in Serum or Plasma [facility] Sodium [Moles/volume ] in Serum or Plasma [facility] Sodium [Moles/volume ] in Serum or Plasma [facility] Sodium [Moles/volume ] in Serum or Plasma [facility] Total protein measurement [facility] Urea nitrogen [Mass/volume] in Serum or Plasma [facility] Urea nitrogen [Mass/volume] in Serum or Plasma [facility] Urea nitrogen [Mass/volume] in Serum or Plasma [facility] Urea nitrogen [Mass/volume] in Serum or Plasma [facility] Urea nitrogen [Mass/volume] in Serum or Plasma [facility] Immunizations Immunization Date Immunization Notes Care Provider Juanita desir 09-12-2022 Covid Pfizer [place] t Booster Dr. Summer Worrell Work Phone: [facility] 09-20-2021 Covid (Pfizer) Dr. Summer parker Work Phone: [facility] 02-15-2021 Covid (Pfizer) [facility] 01-27-2021 tetanus toxoid, redu sajan diphtheria toxoid, and acellular pertussis vaccine, adsorbed [facility] 01-25-2021 Covid (Pfizer) [facility] 08-20-2017 pneumococcal conjuga te vaccine, 13 valent Lexi Athens CONTINUOUS IMPROVEMENT SPECIALIST.SUPPOSITORY MOLDING MACHINE OPERATOR Work Phone: [facility] 07-20-2017 pneumococcal polysaccharide vaccine, [address] Summer Worrell Work Phone: [facility] 10-04-2015 influenza, high dose seasonal, preservative-free Lexi Francia CONTINUOUS IMPROVEMENT SPECIALIST.SUPPOSITORY MOLDING MACHINE OPERATOR Work Phone: [facility] 10-04-2015 pneumococcal conjuga te vaccine, 13 valent Lexi Francia CONTINUOUS IMPROVEMENT SPECIALIST.SUPPOSITORY MOLDING MACHINE OPERATOR Work Phone: [facility] 10-04-2015 influenza virus vacc ine, unspecified formulation Denisha Steiner PA-C Work Phone: [facility] 05-20-2015 zoster vaccine, live Lexi M etcalf CONTINUOUS IMPROVEMENT SPECIALIST.SUPPOSITORY MOLDING MACHINE OPERATOR Work Phone: [facility] Work Phone: 10-28-2012 influenza, injectabl e, quadrivalent, preservative free Dr. Summer Worrell Work Phone: [facility] 10-28-2012 influenza, seasonal, injectable Lexi Athens CONTINUOUS IMPROVEMENT SPECIALIST.SUPPOSITORY MOLDING MACHINE OPERATOR Work Phone: [facility] 10-28-2011 influenza, injectabl e, quadrivalent, preservative free Dr. Summer Worrell Work Phone: [facility] 10-28-2011 influenza, seasonal, injectable Lexi Athens CONTINUOUS IMPROVEMENT SPECIALIST.SUPPOSITORY MOLDING MACHINE OPERATOR Work Phone: [facility] 11-24-2008 tetanus toxoid, redu sajan diphtheria toxoid, and acellular pertussis vaccine, adsorbed Lexi Francia CONTINUOUS IMPROVEMENT SPECIALIST.SUPPOSITORY MOLDING MACHINE OPERATOR Work Phone: [facility] 11-24-2003 tetanus toxoid, redu sajan diphtheria toxoid, and acellular pertussis vaccine, adsorbed Lexi Francia CONTINUOUS IMPROVEMENT SPECIALIST.SUPPOSITORY MOLDING MACHINE OPERATOR Work Phone: [facility] Payers Date Payer Category Payer Self-pay [id number] [id number] 2019 Medicare [employer]NA MEDICARE HU[employer]NA MEDICARE PPO [id number] 2019-Present [phone] [place] [address] PPO [id number] 2019 Medicare (Managed Care) [employer]NA M CECY [id number] 2019 Medicare [id number] Medicare [id number] 2.462 Unknown [id number] [id number] Unknown [id number] [id number] Unknown [id number] [id number] Unknown [id number] 2.462 Social History Date Type Detail Facility Start: 06-28-2022 End: 03-12-2024 Tobacco smoking status [facility] Unknown if ever smoked [facility] Start: 06-22-2020 Cigarettes [facility] Start: 1950 Sex Assigned At Female [facility] Start: 03-27-2023 End: 01-04-2025 Tobacco smoking status AZIS Ex-smoker [facility] Start: 09-24-2002 End: 09-24-2022 History of tobacco use Current smoker [facility] Start: 09-24-2002 End: 09-24-2022 History of tobacco use Cigarette Smoker [facility] Start: 03-27-2023 End: 01-03-2025 Cigarettes smoked current (pack per day) - Reported 1 [facility] Start: 03-27-2023 End: 03-17-2025 Tobacco use and exposure Smokeless tobacco non-user [facility] Start: 03-27-2023 End: 08-08-2025 Alcohol intake Current drinker of alcohol (finding) [facility] Start: 03-27-2023 Alcohol Comment 1-2 per day [facility] Start: 1950 Sex Assigned At Not on file [facility] Start: 04-17-2023 End: 01-03-[address] [facility] Start: 04-08-[address] [facility] Start: 06-15-2023 Gender identity Identifies as female gender (finding) [facility] Start: 06-15-2023 Sexual orientation Heterosexual (fin christoph) [facility] Start: 09-24-2002 Tobacco smoking stat us AZIS Smokes tobacco daily [facility] NEGATED: Highlighted row [facility] Medical Equipment Procedure Code Equipment Code Equipment Origin al Text Equipment Identifier Dates ORIF, hip, using Gamma nail ([id number]) Orthopaedic bone screw, non-bioabsorbable, sterile [id number] FDA Start: 03-08-2024 ORIF, hip, using Gamma nail ([id number]) Orthopaedic bone screw, non-bioabsorbable, sterile ()[id number] FDA Start: 03-08-2024 ORIF, hip, using Gamma nail Femur nail ()[id number] FDA Start: 03-08-2024 ORIF, hip, using Gamma nail ([id number]) Orthopaedic bone screw, non-bioabsorbable, sterile ()[id number] FDA Start: 03-08-2024 Lithotripsy, ESWL STENT,URETERAL PIGTAIL 6FRx26 FDA Start: 02-04-2022 Lithotripsy, ESWL STENT,URETERAL PIGTAIL 6FRx26 FDA Start: 02-04-2022 Lithotripsy, ESWL STENT,URETERAL PIGTAIL 6FRx26 FDA Start: 02-04-2022 Lithotripsy, ESWL STENT,URETERAL PIGTAIL 6FRx26 FDA Start: 02-04-2022 Lithotripsy, ESWL STENT,URETERAL PIGTAIL 6FRx26 FDA Start: 02-04-2022 Lithotripsy, ESWL STENT,URETERAL PIGTAIL 6FRx26 FDA Start: 02-04-2022 Lithotripsy, ESWL STENT,URETERAL PIGTAIL 6FRx26 FDA Start: 02-04-2022 Lithotripsy, ESWL STENT,URETERAL PIGTAIL 6FRx26 FDA Start: 02-04-2022 Lithotripsy, ESWL STENT,URETERAL PIGTAIL 6FRx26 FDA Start: 02-04-2022 Lithotripsy, ESWL STENT,URETERAL PIGTAIL 6FRx26 FDA Start: 02-04-2022 Lithotripsy, ESWL STENT,URETERAL PIGTAIL 6FRx26 FDA Start: 02-04-2022 Lithotripsy, ESWL STENT,URETERAL PIGTAIL 6FRx26 FDA Start: 02-04-2022 Lithotripsy, ESWL STENT,URETERAL PIGTAIL 6FRx26 FDA Start: 02-04-2022 Lithotripsy, ESWL STENT,URETERAL PIGTAIL 6FRx26 FDA Start: 02-04-2022 Lithotripsy, ESWL STENT,URETERAL PIGTAIL 6FRx26 FDA Start: 02-04-2022 Lithotripsy, ESWL STENT,URETERAL PIGTAIL 6FRx26 FDA Start: 02-04-2022 Lithotripsy, ESWL STENT,URETERAL PIGTAIL 6FRx26 FDA Start: 02-04-2022 Lithotripsy, ESWL STENT,URETERAL PIGTAIL 6FRx26 FDA Start: 02-04-2022 Lithotripsy, ESWL STENT,URETERAL PIGTAIL 6FRx26 FDA Start: 02-04-2022 Lithotripsy, ESWL STENT,URETERAL PIGTAIL 6FRx26 FDA Start: 02-04-2022 SLING, ALTIS VAGINAL FDA Star t: 07-04-2022 SLING, ALTIS VAGINAL FDA Star t: 07-04-2022 SLING, ALTIS VAGINAL FDA Star t: 07-04-2022 SLING, ALTIS VAGINAL FDA Star t: 07-04-2022 SLING, ALTIS VAGINAL FDA Star t: 07-04-2022 SLING, ALTIS VAGINAL FDA Star t: 07-04-2022 SLING, ALTIS VAGINAL FDA Star t: 07-04-2022 SLING, ALTIS VAGINAL FDA Star t: 07-04-2022 SLING, ALTIS VAGINAL FDA Star t: 07-04-2022 SLING, ALTIS VAGINAL FDA Star t: 07-04-2022 SLING, ALTIS VAGINAL FDA Star t: 07-04-2022 SLING, ALTIS VAGINAL FDA Star t: 07-04-2022 SLING, ALTIS VAGINAL FDA Star t: 07-04-2022 SLING, ALTIS VAGINAL FDA Star t: 07-04-2022 SLING, ALTIS VAGINAL FDA Star t: 07-04-2022 SLING, ALTIS VAGINAL FDA Star t: 07-04-2022 SLING, ALTIS VAGINAL FDA Star t: 07-04-2022 SLING, ALTIS VAGINAL FDA Star t: 07-04-2022 Goals Date Patient Goal Desired Activity /State Functional Status Date Assessment Result Facility 03-29-2024 Functional status Activity Abili ty With Assist of 1 [facility] Work Phone: 03-29-2024 Functional status Patient Activity Bedres t [facility] Work Phone: 03-28-2024 Functional status Standard Walker [facility] Work Phone: 03-19-2024 Functional status Chair [facility] Work Phone: 03-13-2024 Functional status Bedrest [facility] Work Phone: 03-11-2024 Functional status Ambulates;Chair [facility] Work Phone: 03-08-2024 Functional status Activity Ability Bedres t [facility] Work Phone: Mental Status Date Assessment Result Facility 03-29-2024 Cognitive function Voice/Name [facility] Work Phone: 03-19-2024 Cognitive function Voice/Name [facility] Work Phone: 03-19-2024 Cognitive function Person;Place;Time [facility] Work Phone: 03-18-2024 Cognitive function Voice/Name [facility] Work Phone: 03-15-2024 Cognitive function Appropriate;Cooperativ e [facility] Work Phone: 03-12-2024 Cognitive function Voice/Name [facility] Work Phone: 03-11-2024 Cognitive function Voice/Name [facility] Work Phone: 03-08-2024 Cognitive function Voice/Name [facility] Work Phone: 07-04-2022 Cognitive function Level Of Cons ciousness Drowsy;Sedated [facility] Work Phone: 07-04-2022 Cognitive function Voice/Name [facility] Work Phone: Clinical Notes 02-13-2019 to 09-23-2025 Pastora Murphy APRN.CN - 08/08/2025 8:59 AM EDTTelephone Encounter - Danita Sanchez MA - 08/04/2025 2:47 PM EDTTelephone Encounter - Danita Sanchez MA - 08/04/2025 2:47 PM EDTPatient Instructions Note Date & Type Note Facility 09-23-2025 Note HNO ID: [id number] Author: FELIX WU APRN.SUPPOSITORY MOLDING MACHINE OPERATOR Service: ? Author Type: Nurse Practitioner Type: Progress Notes Filed: 09/23/2025 15:16 Note Text: [facility] - FOLLOW UP EVALUATION Summer Worrell DO [address] [facility] [id number] Dear Summer Worrell DO: I had the pleasure of seeing Ms. Hicks for follow-up today. As you know she is a 75 year old female with a history of since . Subjective Previous Plan- 04/11/2025 Visit: # Cervical spondylosis with myelopathy (M47.12) # Spinal stenosis of cervical region (M48.02) Suspected cervical spondylosis with myelopathy contributing to tightness and weakness in arms and legs. No previous MRI of the cervical spine available for review. - Ordered MRI of the cervical spine to evaluate for spondylosis and myelopathy. # Neuropathy (G62.9) Long-standing neuropathy, likely secondary to diabetes mellitus type 2, with numbness in feet, legs, and pelvic area. Previous foot surgeries may have contributed to neuropathy. - Continue management of diabetes mellitus type 2 to prevent further progression of neuropathy. # Radiculopathy, lumbar region (M54.16) History of lumbar spinal stenosis with radiculopathy, contributing to lower extremity weakness and numbness. - Obtain previous MRI of the lumbar spine from [facility] for review. 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 Patient exhibits spastic gait with short stride length and difficulty with tandem walking. - Initiate physical therapy to improve gait and mobility. 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 - Initiate speech therapy to address dysarthria. # Decline in verbal memory (R41.3) Reported memory issues over the past two years, with difficulty remembering tasks and confusion. - [facility] for further evaluation and management of memory decline. # Unspecified ptosis of right eyelid (H02.401) Right-sided ptosis noted on examination, reportedly longstanding and unchanged. # History of falling (Z91.81) Frequent falls over the past two years, likely due to multifactorial gait disorder and neuropathy. - Emphasized importance of using walker for stability and safety. Update 07/28/2025 MRI C-spine: 1. NO SUSPICIOUS CORD SIGNAL ABNORMALITY OR MORPHOLOGY 2. MILD SPONDYLITIC CONTACT OF CORD, DETAILED 3. FORAMINAL NARROWING GREATEST AT SEVERE LEFT C4-5 WITH OTHER LESSER CHANGES DETAILED 4. MARROW EDEMA INVOLVING BILATERAL TRANSVERSE PROCESSES AT C7 AND T1, AND LEFT C7 FACET. UNKNOWN ETIOLOGY, CANNOT EXCLUDE A STRAIN INJURY To my eye: straightening of the cord with loss of spinal lordosis, spinal canal narrowing most prominent at C3-4 with change in the trajectory of the cord to accommodate the changing spinal canal with no abnormal signal. I will hold off on referral to spine clinic at this time. Interval History: Saloni Hicks is a 75-year-old female with hypothyroidism, cervical degenerative disc disease, arthritis, and peripheral neuropathy presenting for evaluation of balance issues and memory concerns. She saw Dr. Mercado in January. He checked an MRI spine. He communicated MRI results showed degenerative changes but nothing alarming and indicated she did not need a follow up visit. She was referred to [facility] issues, she declined the appointment with [facility] as the first they could get her in was [facility] and did not schedule appt after that. TSH checked a couple weeks ago was high 36.900. She had stopped taking Synthroid as she had been taking in the middle of the night. She has restarted Synthroid and following with PCP. Saloni reports a 3-year history of balance difficulties, with recent worsening over the past few months. She describes a tendency to lean to the left while sitting. She denies any significant back issues, though she occasionally experiences back pain with certain movements. She has been told she has severe cervical degenerative spine and left hip arthritis. Explained that these issues along with severe peripheral neuropathy will all contribute to imbalance and gait issues. She reports that her gait and balance fluctuate daily. Some days she can walk unassisted with good balance, while on other days she can barely stand or use her rollator correctly. She finds this variability frustrating and does not understand the cause. She reports poor sleep due to pain, which varies in location. She takes gabapentin and Tylenol for pain management, but sometimes the pain is severe despite medication. She notes that her left side was initially more affected, which she attributes to a past femur injury, but pain can also occur on the right side. She is under the care of Dr. Goldman (more content not included)... [facility] 08-29-2025 Note HNO ID: [id number] Author: PASTORA MURPHY APRN.LILLIE Service: ? Author Type: Student Assistance Counselor Type: Progress Notes Filed: 08/29/2025 15:26 Note Text: Environmental Services Specialist offered: Patient declines. Saloni Hicks is a 75 year old female who presents today for a vulvar biopsy. Indication: persistent pruritis. UNIVERSAL PROTOCOL / SAFETY CHECKLIST Procedure to be Performed: Vulvar biopsy Sign In: A Moment of CARE was completed. Appropriate PPE (Personal Protective Equipment) worn by all providers involved with the procedure. Patient/Surrogate Stated/Verified: Patient name, Date of , Relevant allergies, and The intended procedure Time Out: Relevant labs, photos, and/or imaging studies have been reviewed. Intended patient and procedure match the source document(s) (e.g. consent, HANDP, associated studies [imaging, pathology]) match the intended patient and procedure. Consent obtained and matches the intended procedure. Yes. Correct side/site has been marked and visible. Medications required for this procedure are verified. Fire risk assessed and is not applicable. Sign Out: Specimens are all correctly labeled and sent. All instruments, equipment, possible retained foreign bodies are accounted for. Yes. The post-procedure plan of care has been communicated to the patient or surrogate. PROCEDURE NOTE: GROSS LESIONS: No BIOPSY: Area was cleansed with betadine and anesthetized with 1mL 1% lidocaine. 3mm Manuelito punch used to biopsy region. HEMOSTASIS: Obtained with silver nitrate Procedure Summary: Patient tolerated procedure well ASSESSMENT/PLAN: 1. 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 Vulvar burning - ICD9: 625.9, ICD10: N94.89 - SURGICAL PATHOLOGY - CLOBETASOL 0.05 % TOPICAL OINTMENT 3. Vulvar irritation - ICD9: 624.8, ICD10: N90.89 - SURGICAL PATHOLOGY - CLOBETASOL 0.05 % TOPICAL OINTMENT PLAN: Specimens labeled and sent to Pathology. Will notify patient of results in 1-2 weeks. Follow up in 2 weeks to discuss results. Pastora Murphy APRN.CNM [facility] 08-08-2025 Note HNO ID: [id number] Author: PASTORA MURPHY APRN.LILLIE Service: ? Author Type: Student Assistance Counselor Type: Progress Notes Filed: 08/09/2025 17:25 Note Text: Environmental Services Specialist offered: Patient declines. Saloni Hicks is a 75 year old female who presents for problem visit vulvar irritation HPI: Presents today with continued vaginal irritation, burning, and itching. Started using estradiol cream back in 03/18. Has continued twice weekly use and states uncertain if she ever had benefit. Denies any vaginal bleeding. Is not sexually active. Complaint of a small amount of discharge. Discomfort is on the outside and the inside . 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 History LMP: Postmenopausal Age at Menarche: 12 Age at First : Age at Menopause: Wastewater Engineer History Comments: Sexual Activity: Yes; No partner data on record; rarely Contraception: No contraception data on record PAST MEDICAL HISTORY Diagnosis Date Anxiety and depression 08/20/2017 Controlled type 2 diabetes mellitus without complication, without long-term current use of insulin ([facility]) 05/08/2017 Diabetic eye exam ([facility]) 07/07/2017 Last done: 06/26/2017 DM (diabetes mellitus) ([facility]) Essential hypertension 03/04/2018 GERD without esophagitis 08/20/2017 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 Hypothyroid Hypothyroidism 05/08/2017 Smoker 08/20/2017 Started at age 16 up to 1 PPD TIA (transient ischemic attack) PAST SURGICAL HISTORY Procedure Laterality Date CATARACT EXT; EYEONICS IOL SYS 11/24/2007 both COLONOSCOPY 05/08/2008 repeat 10 yrs CORRECT BUNION,SIMPLE Bilateral 1997 left HAMMERTOE REVISION, ONE TOE 11/24/1975 right MENISCAL REPAIR SYS,[id number] Right knee PROSTHESIS, BREAST, IMP Bilateral 11/24/1975 TONSILLECTOMY HX 11/24/1954 UROLOGY PROCEDURE LASHONDA with Dr. Amaro FAMILY HISTORY Problem Relation Age of Onset Cancer Mother Malignant neoplastic disease Heart Father Diabetes Father Diabetes Sister Diabetes Brother SOCIAL HISTORY[1] Current Outpatient Medications Medication Sig buPROPion XL (WELLBUTRIN XL) 150 mg 24 hr tablet Take 150 mg by mouth once daily. estradiol (ESTRACE) 0.01 % (0.1 mg/gram) vaginal cream Insert 1 gram of cream intravaginally at bedtime nightly for 2 weeks, and then twice weekly. Save a pea sized amount to apply externally. gabapentin (NEURONTIN) 100 mg capsule Take 600 mg by mouth once daily. metFORMIN (GLUCOPHAGE) 500 mg tablet Take 1 [...] tablet by mouth every Friday and Friday. donepezil (ARICEPT) 5 mg tablet Take 1 tablet by mouth daily at bedtime. memantine (NAMENDA) 5 mg tablet Take 5 mg by mouth two times a day. No current facility-administered medications for this visit. Allergies As of Date: 08/08/2025 Allergen Noted Reaction SEASONAL ALLERGIES 04/27/2018 Other: See Comments Fully Assessed 08/08/2025 REVIEW OF SYSTEMS Abdomen: No bloating, early satiety, indigestion, or increased flatulence. No abdominal pain, nausea, vomiting, diarrhea, or constipation. Bladder: No dysuria, gross hematuria, urinary frequency, urinary urgency, or incontinence. Breast: No breast lumps, nipple d/c, overlying skin changes, redness or skin retraction. Expanded ROS: N/A Allergies and current medication updated:Yes SENSITIVE EXAM: The sensitive examination was discussed with the Patient or Patient's Authorized A&P Technician. As applicable, any other physician, advance practice provider, medical student, or other health professional student that will be observing or involved in the sensitive examination for educational or training purposes was discussed with the Patient or Authorized A&P Technician. The Patient or Authorized A&P Technician has agreed to proceed with the sensitive examination. (Sensitive examination includes inspection and/or palpation of the breasts, pelvis, prostate and anorectal regions). EXAM: BP 120/76 Wt 141 lb 6.4 oz (64.1kg) GENERAL: pleasant, female in no apparent distress HEENT: Normocephalic and atraumatic NECK: Supple and full range of motion normal Bartholin's glands, urethra, [place]'s glands, no vulvar lesions, no cervical lesions, good vaginal support, normal appearing perineal body and perianal region. Admits to vulvar irritation on labia majora, minora, and vaginal. Slight aggulation of labia, no obvious lichenification, plaques or discoloration. Small amount of white vaginal discharge, no odor NEURO: alert and oriented x3,exam grossly non-focal EXTREMITIES: normal Assessment AND Plan Vulvar (more content not included)... [facility] 08-08-2025 History of Presen t illness Narrative Environmental Services Specialist offered: Patient declines. Saloni Hicks is a 75 year old female who presents for problem visit vulvar irritation HPI: Presents today with continued vaginal irritation, burning, and itching. Started using estradiol cream back in 03/18. Has continued twice weekly use and states uncertain if she ever had benefit. Denies any vaginal bleeding. Is not sexually active. Complaint of a small amount of discharge. Discomfort is on the outside and the inside . 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 History LMP: Postmenopausal Age at Menarche: 12 Age at First : Age at Menopause: Wastewater Engineer History Comments: Sexual Activity: Yes; No partner data on record; rarely Contraception: No contraception data on record PAST MEDICAL HISTORY Diagnosis Date Anxiety and depression 08/20/2017 Controlled type 2 diabetes mellitus without complication, without long-term current use of insulin ([facility]) 05/08/2017 Diabetic eye exam ([facility]) 07/07/2017 Last done: 06/26/2017 DM (diabetes mellitus) ([facility]) Essential hypertension 03/04/2018 GERD without esophagitis 08/20/2017 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 Hypothyroid Hypothyroidism 05/08/2017 Smoker 08/20/2017 Started at age 16 up to 1 PPD TIA (transient ischemic attack) PAST SURGICAL HISTORY Procedure Laterality Date CATARACT EXT; EYEONICS IOL SYS 11/24/2007 both COLONOSCOPY 05/08/2008 repeat 10 yrs CORRECT BUNION,SIMPLE Bilateral 1997 left HAMMERTOE REVISION, ONE TOE 11/24/1975 right MENISCAL REPAIR SYS,[id number] Right knee PROSTHESIS, BREAST, IMP Bilateral 11/24/1975 TONSILLECTOMY HX 11/24/1954 UROLOGY PROCEDURE [place] with Dr. Amaro FAMILY HISTORY Problem Relation Age of Onset Cancer Mother Malignant neoplastic disease Heart Father Diabetes Father Diabetes Sister Diabetes Brother SOCIAL HISTORY[1] Current Outpatient Medications Medication Sig buPROPion XL (WELLBUTRIN XL) 150 mg 24 hr tablet Take 150 mg by mouth once daily. estradiol (ESTRACE) 0.01 % (0.1 mg/gram) vaginal cream Insert 1 gram of cream intravaginally at bedtime nightly for 2 weeks, and then twice weekly. Save a pea sized amount to apply externally. gabapentin (NEURONTIN) 100 mg capsule Take 600 mg by mouth once daily. metFORMIN (GLUCOPHAGE) 500 mg tablet Take 1 [...] tablet by mouth every Friday and Friday. donepezil (ARICEPT) 5 mg tablet Take 1 tablet by mouth daily at bedtime. memantine (NAMENDA) 5 mg tablet Take 5 mg by mouth two times a day. No current facility-administered medications for this visit. Allergies As of Date: 08/08/2025 Allergen Noted Reaction SEASONAL ALLERGIES 04/27/2018 Other: See Comments Fully Assessed 08/08/2025 REVIEW OF SYSTEMS Abdomen: No bloating, early satiety, indigestion, or increased flatulence. No abdominal pain, nausea, vomiting, diarrhea, or constipation. Bladder: No dysuria, gross hematuria, urinary frequency, urinary urgency, or incontinence. Breast: No breast lumps, nipple d/c, overlying skin changes, redness or skin retraction. Expanded ROS: N/A Allergies and current medication updated:Yes SENSITIVE EXAM: The sensitive examination was discussed with the Patient or Patient's Authorized A&P Technician. As applicable, any other physician, advance practice provider, medical student, or other health professional student that will be observing or involved in the sensitive examination for educational or training purposes was discussed with the Patient or Authorized A&P Technician. The Patient or Authorized A&P Technician has agreed to proceed with the sensitive examination. (Sensitive examination includes inspection and/or palpation of the breasts, pelvis, prostate and anorectal regions). EXAM: BP 120/76 Wt 141 lb 6.4 oz (64.1kg) GENERAL: pleasant, female in no apparent distress HEENT: Normocephalic and atraumatic NECK: Supple and full range of motion normal Bartholin's glands, urethra, [place]'s glands, no vulvar lesions, no cervical lesions, good vaginal support, normal appearing perineal body and perianal region. Admits to vulvar irritation on labia majora, minora, and vaginal. Slight aggulation of labia, no obvious lichenification, plaques or discoloration. Small amount of white vaginal discharge, no odor NEURO: alert and oriented x3,exam grossly non-focal EXTREMITIES: normal Assessment & Plan Vulvar irritation Orders: BACTERIAL VAGINOSIS NAAT JOAN/TRICHOMONAS NAAT ENDOMETRIAL BIOPSY -Discussed continuing vaginal estrogen but to go to daily for 2 weeks then back to twice weekly. Will see if this offers any improvement. -EMB due to continued irritation -After EMB, discussed trying vulvar application of steroid ointment. Vulvar burning Orders: BACTERIAL VAGINOSIS NAAT JOAN/TRICHOMONAS NAAT ENDOMETRIAL BIOPSY Postmenopausal Orders: ENDOMETRIAL BIOPSY Vaginal atrophy Vaginal discharge Orders: BACTERIAL VAGINOSIS NAAT JOAN/TRICHOMONAS NAAT Pastora Murphy APRN.CNM [1] Social History Tobacco Use Smoking status: Every Day Current packs/day: 0.00 Average packs/day: 1 pack/day for 20.0 years (20.0 ttl pk-yrs) Types: Cigarettes Start date: 09/24/2002 Last attempt to quit: 09/24/2022 Years since quittin.8 Smokeless tobacco: Never Vaping Use Vaping status: Former Substance Use Topics Alcohol use: Yes Alcohol/week: 1.0 - 2.0 standard drink of alcohol Types: 1 - 2 Glasses of Wine (5oz) per week Comment: 1-2 per day Drug use: No documented in this encounter [facility] 08-04-2025 Telephone encounter Note LM for pt advising that appointment with Felix Wu on 08/05/2025 at 11a is cancelled as Felix is not the appropriate provider to follow up with and to call our scheduling dept to schedule with Dr. Mercado. [facility] 08-04-2025 Miscellaneous Notes LM for pt advising that appointment with Felix Wu on 08/05/2025 at 11a is cancelled as Felix is not the appropriate provider to follow up with and to call our scheduling dept to schedule with Dr. Mercado. documented in this encounter [facility] 07-27-2025 History of Presen t illness Narrative Radiology Service Progress Note PATIENT NAME: Saloni Hicks DATE OF SERVICE: July 27, 2025 TIME: 12:07 PM PATIENT IDENTITY VERIFICATION COMPLETED USING TWO (2) IDENTIFIERS: Name and Date of confirmed by patient verbally. FALL SCREENING: Has the patient had 2 falls in the last year or 1 fall with injury or currently using an Ambulatory Assistive Device (Walker, Cane, Wheelchair, Crutches, etc.)? Yes, Patient High Risk for Falls What interventions were put in place to prevent falls during this visit? Instructed Patient to Call for Help if Needed, Offered Assistance with Transfers/Clothing, Instructed Patient to Remain Seated (Not on Exam Table) Until Exam, and Increased Observations by Caregivers PATIENT GENDER DATA: Assigned female at . status: : No status: NO. PATIENT RELEVANT IMPLANT DATA REVIEWED: Yes PATIENT PRESENTS WITH AN IMPLANTABLE OR ATTACHED ROLL FINISHER: No RADIOLOGY DEPARTMENT: MR; Exam(s) Completed: Spine: Cervical spine. Anesthesia: No. Aromatherapy Administered: No PERIPHERAL IV DATA: Not applicable SIGNED BY: RT Lesley(R) July 27, 2025 12:07 PM documented in this encounter [facility] 07-27-2025 Note HNO ID: [id number] Author: JOANNE QUIROS RT(R) Service: ? Author Type: Technologist Type: Progress Notes Filed: 07/27/2025 12:07 Note Text: Radiology Service Progress Note PATIENT NAME: Saloni Hicks DATE OF SERVICE: July 27, 2025 TIME: 12:07 PM PATIENT IDENTITY VERIFICATION COMPLETED USING TWO (2) IDENTIFIERS: Name and Date of confirmed by patient verbally. FALL SCREENING: Has the patient had 2 falls in the last year or 1 fall with injury or currently using an Ambulatory Assistive Device (Walker, Cane, Wheelchair, Crutches, etc.)? Yes, Patient High Risk for Falls What interventions were put in place to prevent falls during this visit? Instructed Patient to Call for Help if Needed, Offered Assistance with Transfers/Clothing, Instructed Patient to Remain Seated (Not on Exam Table) Until Exam, and Increased Observations by Caregivers PATIENT GENDER DATA: Assigned female at . status: : No status: NO. PATIENT RELEVANT IMPLANT DATA REVIEWED: Yes PATIENT PRESENTS WITH AN IMPLANTABLE OR ATTACHED ROLL FINISHER: No RADIOLOGY DEPARTMENT: MR; Exam(s) Completed: Spine: Cervical spine. Anesthesia: No. Aromatherapy Administered: No PERIPHERAL IV DATA: Not applicable SIGNED BY: Joanne Fields Janel Quiros, RT(R) July 27, 2025 12:07 PM [facility] 06-09-2025 Note HNO ID: [id number] Author: EVI PANTOJA CCC-SLP Service: ? Author Type: Speech Language Pathologist Type: Progress Notes Filed: 06/09/2025 11:17 Note Text: 06/09/2025 [facility] SPEECH DISCONTINUANCE OF CARE Plan of Care Period: Start of Care Date: 05/03/25 Last Visit Date: 05/03/2025 Therapy Program: Patient did not return for follow up care as planned. Please refer to last visit note for interventions provided for this episode of care. Assessment: Unable to formally assess goal achievement. Reason for Discontinuation of Care: Patient has not returned to therapy or scheduled additional follow-up appointments. BRYNN Boggs [facility] 05-03-2025 Note HNO ID: [id number] Author: VEI PANTOJA CCC-SLP Service: ? Author Type: Speech Language Pathologist Type: Progress Notes Filed: 05/05/2025 09:12 Note Text: Summary: SPEECH THERAPY DYSARTHRIA EVALUATION Episode Visit Count: 1 Therapist That Will Accept/Oversee The Plan Of Care: Evi Pantoja Start of Care Date: 05/03/25 Onset Date: 04/11/25 Plan of Care Certification Date: 05/03/25 Next Certification Due Date: 06/02/25 Patient Identified by Name and Date of : Yes [facility] SPEECH EVALUATION PLAN OF CARE: Impression: Functional communication without limitations in: Speech, Voice Communication deficits identified: Dysarthria of speech, Voice disorder RECOMMENDATION: HEALTHCARE ADMINISTRATIVE ASSISTANT Recommendations: Outpatient Speech Therapy Results and Recommendations Discussed With: Patient Prognosis: Good Good: current objective clinical presentation Goals for Episode of Care: created on 05/03/2025 through 06/02/25 DYSARTHRIA GOALS Improve speech precision at conversation level to 100% intelligibility with minimal cues. 2. Self-discriminate between intelligible and unintelligible speech with 100% effectiveness. 3. Demonstrate self-monitoring of appropriate phrasing and breath coordination in connected sentences/conversation with 100% effectiveness with minimal cues All goals to target the patient's overall ability to facilitate functional communication of ADL medical / social needs. VOICE GOALS 4. Demonstrate independence with vocal hygiene program for voice quality and intensity. 5. Demonstrate independence with strategies to promote vocal intensity and quality at the conversational level. All goals to target the patient's overall ability to facilitate functional communication of ADL medical / social needs. COGNITION AND LANGUAGE 6. Participate in standardized cognitive-linguistic assessment to determine need for ST intervention and POC goals. Planned Interventions, Frequency, and Duration: Planned Treatment Interventions: Dysarthria/Apraxia Reduction Training (93306, 50226), Patient / Caregiver Education/ Training, Voice Training (01761), Speech Treatment (12675) Current Frequency: (4 visits within 4 weeks) Duration: 4 weeks PLAN FOR NEXT VISIT: Education and instruction in vocal hygience, strategies to promote speech clarity and vocal intensity at the conversational level Patient demonstrates good understanding of plan of care and treatment. The above goals and plan of care were discussed and agreed upon by patient/family. SUBJECTIVE: Saloni Hicks is a 75 year old female seen today for a diagnostic. Past Relevant Medical Conditions: (PMH: Cervical spondylosis with myelopathy, Neuropathy, Radiculopathy of lumbar region, Multifactorial gait disorder, Spastic dysarthria, Spinal stenosis of cervical region, Decline in verbal memory, Unspecified ptosis of right eyelid, History of falling.) Patient referred to speech therapy for assessment due to spastic dysarthria. Patient reports sensation of facial tightness impacting speech intelligibility as well as difficulty with projecting her voice. Patient further reports poor STM and anomia. HEALTHCARE ADMINISTRATIVE ASSISTANT to obtain referral for cognitive-linguistic assessment.. Patient Goals: Improve speech Prior Functional Level: Within Functional Limits OBJECTIVE MEASURES WITH LEVEL OF FUNCTION: Portions of the following standardized testing were utilized in the evaluation of the patient: Non-standardized testing utilized secondary to decreased attentiveness to tasks and/or cognition in order to complete standardized protocol. Speech/Voice/Language Speech Production: Within Functional Limits Except Dysarthria: Decreased Breath Support, Decreased Intelligibility, Impaired Voice Quality, Imprecise Articulation, Intelligibility of Conversation, Dysarthria Deficit Comments Dysarthria Deficit Comments: Spastic dysarthria. Decreases speech prescision at the conversational level. Intelligibility Conversation %: 100 (Speech precision diminished at 86% with /s/ blends and consonant blends with fricatives) Oral/Verbal Apraxia: Awareness Of Errors Voice Assessment: Yes Sustained ?ah? phonation (dB) : 62 Sustained ?ah? phonation (seconds) : 15.75 Maximum Phonation Time (seconds): 18 Conversation (dB SPL): 60 Vocal Quality: Strained, Hoarse, Glottal Wilson (Intermittently; Quality diminishes as length of utterances increase) Expressive and Receptive Language: Within Functional Limits (HEALTHCARE ADMINISTRATIVE ASSISTANT requested referral for cognitive-linguistic assessment as patient endorsing STM deficits and anomia) Fluency: No COGNITIVE-LINGUISTIC SKILLS Cognition Cognitive Status: Within Functional Limits For Current Session (HEALTHCARE ADMINISTRATIVE ASSISTANT requested referral for cogniti (more content not included)... [facility] 05-03-2025 History of Presen t illness Narrative Summary: SPEECH THERAPY DYSARTHRIA EVALUATION Episode Visit Count: 1 Therapist That Will Accept/Oversee The Plan Of Care: Evi Pantoja Start of Care Date: 05/03/25 Onset Date: 04/11/25 Plan of Care Certification Date: 05/03/25 Next Certification Due Date: 06/02/25 Patient Identified by Name and Date of : Yes [facility] SPEECH EVALUATION PLAN OF CARE: Impression: Functional communication without limitations in: Speech, Voice Communication deficits identified: Dysarthria of speech, Voice disorder RECOMMENDATION: HEALTHCARE ADMINISTRATIVE ASSISTANT Recommendations: Outpatient Speech Therapy Results and Recommendations Discussed With: Patient Prognosis: Good Good: current objective clinical presentation Goals for Episode of Care: created on 05/03/2025 through 06/02/25 DYSARTHRIA GOALS Improve speech precision at conversation level to 100% intelligibility with minimal cues. 2. Self-discriminate between intelligible and unintelligible speech with 100% effectiveness. 3. Demonstrate self-monitoring of appropriate phrasing and breath coordination in connected sentences/conversation with 100% effectiveness with minimal cues All goals to target the patient's overall ability to facilitate functional communication of ADL medical / social needs. VOICE GOALS 4. Demonstrate independence with vocal hygiene program for voice quality and intensity. 5. Demonstrate independence with strategies to promote vocal intensity and quality at the conversational level. All goals to target the patient's overall ability to facilitate functional communication of ADL medical / social needs. COGNITION & LANGUAGE 6. Participate in standardized cognitive-linguistic assessment to determine need for ST intervention and POC goals. Planned Interventions, Frequency, and Duration: Planned Treatment Interventions: Dysarthria/Apraxia Reduction Training (50240, 61813), Patient / Caregiver Education/ Training, Voice Training (10760), Speech Treatment (51339) Current Frequency: (4 visits within 4 weeks) Duration: 4 weeks PLAN FOR NEXT VISIT: Education and instruction in vocal hygience, strategies to promote speech clarity and vocal intensity at the conversational level Patient demonstrates good understanding of plan of care and treatment. The above goals and plan of care were discussed and agreed upon by patient/family. SUBJECTIVE: Saloni Hicks is a 75 year old female seen today for a diagnostic. Past Relevant Medical Conditions: (PMH: Cervical spondylosis with myelopathy, Neuropathy, Radiculopathy of lumbar region, Multifactorial gait disorder, Spastic dysarthria, Spinal stenosis of cervical region, Decline in verbal memory, Unspecified ptosis of right eyelid, History of falling.) Patient referred to speech therapy for assessment due to spastic dysarthria. Patient reports sensation of facial tightness impacting speech intelligibility as well as difficulty with projecting her voice. Patient further reports poor STM and anomia. HEALTHCARE ADMINISTRATIVE ASSISTANT to obtain referral for cognitive-linguistic assessment.. Patient Goals: Improve speech Prior Functional Level: Within Functional Limits OBJECTIVE MEASURES WITH LEVEL OF FUNCTION: Portions of the following standardized testing were utilized in the evaluation of the patient: Non-standardized testing utilized secondary to decreased attentiveness to tasks and/or cognition in order to complete standardized protocol. Speech/Voice/Language Speech Production: Within Functional Limits Except Dysarthria: Decreased Breath Support, Decreased Intelligibility, Impaired Voice Quality, Imprecise Articulation, Intelligibility of Conversation, Dysarthria Deficit Comments Dysarthria Deficit Comments: Spastic dysarthria. Decreases speech prescision at the conversational level. Intelligibility Conversation %: 100 (Speech precision diminished at 86% with /s/ blends and consonant blends with fricatives) Oral/Verbal Apraxia: Awareness Of Errors Voice Assessment: Yes Sustained ah phonation (dB) : 62 Sustained ah phonation (seconds) : 15.75 Maximum Phonation Time (seconds): 18 Conversation (dB SPL): 60 Vocal Quality: Strained, Hoarse, Glottal Wilson (Intermittently; Quality diminishes as length of utterances increase) Expressive and Receptive Language: Within Functional Limits (HEALTHCARE ADMINISTRATIVE ASSISTANT requested referral for cognitive-linguistic assessment as patient endorsing STM deficits and anomia) Fluency: No COGNITIVE-LINGUISTIC SKILLS Cognition Cognitive Status: Within Functional Limits For Current Session (HEALTHCARE ADMINISTRATIVE ASSISTANT requested referral for cognitive-linguistic assessment via secure chat.) Education: Education Learning Preferences: Demonstration, Printed Materials, Performance Barriers: Cognitive Limitations Learning/Educational Needs: Compensatory Strategies, Discharge Plan, Plan of Care, Rehabilitation Techniques and Procedures, Speech Skills, Home Exercise Program Education Provided: Yes, see treatment interventions for education provided Education Provided To: Patient Education Mode/Type: Demonstration, Explanation/Discussion, Literature/Printed Materials Response to Education/Teach Back: Requires Review/Additional Education TREATMENT: Evaluation: Eval Speech Sound Production (25642) Current Home Program: HEALTHCARE ADMINISTRATIVE ASSISTANT provided patient with printed education per dysarthria management and physiology of spastic dysarthria. Billing: Eval Speech Sound Production (98652) Total time / Length of visit: 55 minutes Session Start Time : 1535 Session Stop Time : 1630 Evi Pantoja CCC-HEALTHCARE ADMINISTRATIVE ASSISTANT documented in this encounter [facility] 05-03-2025 Note Addended by: JENNIFER CUNNINGHAM on: 05/03/2025 03:48 PM Modules accepted: Orders [facility] 05-03-2025 Miscellaneous Notes Addended by: JENNIFER LOCKETT on: 05/03/2025 03:48 PM Modules accepted: Orders documented in this encounter [facility] 05-03-2025 History of Presen t illness Narrative Summary: OT evaluation Images from the original note were not included. Episode Visit Count: 1 Therapist That Will Accept/Oversee The Plan Of Care: Jennifer Lockett Start of Care Date: 05/03/25 Onset Date: 11/02/24 Plan of Care Certification Date: 05/03/25 Next Certification Due Date: 08/01/25 Patient Identified by Name and Date of : Yes [facility] OCCUPATIONAL THERAPY EVALUATION PLAN OF CARE: Assessment: Saloni Hicks presents with diagnosis of neuropathy that interferes with gripping, pinching, twisting, pulling, pushing, carrying, weight bearing . The patient presents with impairments in sensation and strength. PROMIS (Patient-Reported Outcomes Measurement Information System) scores were reviewed and identified as a rehabilitation concern. Prognosis for therapy is . The patient will benefit from skilled therapy services to meet the goals established for this plan of care as noted below. Goals for Episode of Care: established 05/03/25 Patient reported outcome of upper extremity will increase T-score by a minimum 5 points. Patient will report a good understanding of diagnosis and OT recommendations for progression of program. Patient will improve function in Right hand in order to be able to perform basic self-care tasks and home management tasks. Patient will increase Right personal development coach strength equal to L hand so that patient will be able to improve function for home management tasks and light functional tasks. Patient will increase Right pinch equal to L hand so that patient will be able to improve function for home management tasks. Patient will demonstrate or report an increase in Fine Motor Coordination through testing or performance compared to initial evaluation. Patient Goals: Resume normal use of hands Time Frame for Goals and Treatment : 07/26/25 Planned Interventions, Frequency, and Duration: Current Frequency: 1x every other week Duration: 12 weeks Total Number of Visits Planned: 6 Planned Treatment Interventions: Therapeutic exercise (52967), Therapeutic activities (04173), Manual therapy (66790), Self-penitentiary management (84404) PLAN FOR NEXT VISIT:adjust HEP; check symptoms Patient demonstrates good understanding of plan of care and treatment. The above goals and plan of care were discussed and agreed upon by patient/family. 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 5 points is clinically meaningfully difference Percentiles provide an indication of how the patient's score ranks in relation to the general population. Higher percentile rankings indicate better function/quality of life. 50th percentile is the average of the general population and indicates half of respondents had a worse score. OBJECTIVE MEASURES WITH LEVEL OF FUNCTION: Hand Strength R Repairer Controller Tester Position 1 (lbs): 25 lbs (31 post tx) L Repairer Controller Tester Position 1 (lbs): 33 lbs R Lateral Pinch (lbs): 9 lbs R Tripod/ 3 Jaw Bashir (lbs): 5.5 lbs L Lateral Pinch (lbs): 10 lbs L Tripod/ 3 Jaw Bashir (lbs): 7 lbs Communication Comprehension: Complex auditory and visual communication Thought Process: Logical, coherent thought form Expression: Expresses complex ideas clearly and fluently Conversation: Appropriate thought content, Responds when asked direct questions UE AROM R UE AROM: WFL L UE AROM: WFL UE and Cervical Strength Strength Tested: Shoulder All, Hand R UE Strength: grossly 4/5 L UE Strength: grossly 4/5 Instrumental Activities of Daily Living Difficulty noted with: Meal/Beverage Prep, Cooking, Cleaning, Laundry, Shopping, Driving Meal/Beverage Prep: Modified Independent Cooking: Modified Independent Cleaning: Modified Independent Laundry: Modified Independent Functional Performance Test Results 9 Hole Peg Test Right (seconds): 36.5 9 Hole Peg Test Left (seconds): 35.5 Education: Education Learning Preferences: Demonstration, Explanation, Performance, Printed Materials Barriers: None Learning/educational needs: Home exercise program Education Provided: Yes, see treatment interventions for education provided Education Provided To: Patient Education Mode/Type: Demonstration, Explanation/Discussion, Literature/Printed Materials, Performance Response to Education/Teach Back: States/Identifies, Return Demonstration, Requires Review/Additional Education TREATMENT: OT Treatment Interventions : Therapeutic Exercise, Manual Therapy, Self-Shelter Management Evaluation Evaluation Therapeutic Exercise: 1: Review of HEP for red theraputty for personal development coach / pinch strength as tolerated; Proprioceptive exercises added for R hand frequently throughout the day (plate, scarf exercise, and joint position sense) Skilled Intervention: Patient was educated in proper exercise technique and purpose for exercises. Skilled judgment was used in selection of appropriate interventions. Provided written instruction for home exercise program to facilitate proper performance and compliance. Correct performance of therapeutic exercises was facilitated with verbal and visual cuing. Manual Therapy: 1: Light distraction of neck to see if symptoms improved; personal development coach strength improved; symptoms remained constant Skilled Intervention: Manual skills to improve joint mobility, ROM, and decrease pain. Utilized anatomy knowledge of the therapist, and assessment of patient's response to intervention. Self-Shelter Management: 1: education for role of OT for neuropathy; POC; and predicted outcomes / purpose 2: Education for neck pillow or butterfly pillow to assist with discomfort during the night Skilled Intervention: Skilled judgment in the selection of proper modification for activity of daily living/home management based on clinical presentation, deficits, and needs. Reviewed patient specific diagnosis in relation to activities of daily living/home management. Activity progression based on professional judgement. Billing * Evaluation Low Complexity: 1 Unit Therapeutic Exercise Treatment Minutes: 15 Manual Therapy Treatment Minutes: 10 Self-Care/Home Management Treatment Minutes: 15 Skilled Treatment Time Minutes (timed and untimed codes): 75 Total Session Time (minutes): 75 Session Start Time : 1415 Session Stop Time : 1530 Jennifer Pitsenbarger, OTR/L Program_ID:[id number] Access Code: [email or web address] URL: [email or web address] Date: 05-03-2025 Prepared By: Jennifer Lockett Program Notes Exercises - Putty Squeezes - 2 x daily - 7 x weekly - 1 sets - 10 reps - Tip Pinch with Putty - 2 x daily - 7 x weekly - 1 sets - 10 reps - Connors Pinch with Putty - 2 x daily - 7 x weekly - 1 sets - 10 reps documented in this encounter [facility] 05-03-2025 Note HNO ID: [id number] Author: JENNIFER LOCKETT OTR/L Service: ? Author Type: Occupational Therapist Type: Progress Notes Filed: 05/03/2025 15:45 Note Text: Summary: OT evaluation Episode Visit Count: 1 Therapist That Will Accept/Oversee The Plan Of Care: Jennifer Lockett Start of Care Date: 05/03/25 Onset Date: 11/02/24 Plan of Care Certification Date: 05/03/25 Next Certification Due Date: 08/01/25 Patient Identified by Name and Date of : Yes [facility] OCCUPATIONAL THERAPY EVALUATION PLAN OF CARE: Assessment: Saloni Hicks presents with diagnosis of neuropathy that interferes with gripping, pinching, twisting, pulling, pushing, carrying, weight bearing . The patient presents with impairments in sensation and strength. PROMIS? (Patient-Reported Outcomes Measurement Information System) scores were reviewed and identified as a rehabilitation concern. Prognosis for therapy is . The patient will benefit from skilled therapy services to meet the goals established for this plan of care as noted below. Goals for Episode of Care: established 05/03/25 Patient reported outcome of upper extremity will increase T-score by a minimum 5 points. Patient will report a good understanding of diagnosis and OT recommendations for progression of program. Patient will improve function in Right hand in order to be able to perform basic self-care tasks and home management tasks. Patient will increase Right personal development coach strength equal to L hand so that patient will be able to improve function for home management tasks and light functional tasks. Patient will increase Right pinch equal to L hand so that patient will be able to improve function for home management tasks. Patient will demonstrate or report an increase in Fine Motor Coordination through testing or performance compared to initial evaluation. Patient Goals: Resume normal use of hands Time Frame for Goals and Treatment : 07/26/25 Planned Interventions, Frequency, and Duration: Current Frequency: 1x every other week Duration: 12 weeks Total Number of Visits Planned: 6 Planned Treatment Interventions: Therapeutic exercise (22071), Therapeutic activities (55702), Manual therapy (92575), Self-penitentiary management (06465) PLAN FOR NEXT VISIT:adjust HEP; check symptoms Patient demonstrates good understanding of plan of care and treatment. The above goals and plan of care were discussed and agreed upon by patient/family. 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 5 points is clinically meaningfully difference Percentiles provide an indication of how the patient's score ranks in relation to the general population. Higher percentile rankings indicate better function/quality of life. 50th percentile is the average of the general population and indicates half of respondents had a worse score. OBJECTIVE MEASURES WITH LEVEL OF FUNCTION: Hand Strength R Repairer Controller Tester Position 1 (lbs): 25 lbs (31 post tx) L Repairer Controller Tester Position 1 (lbs): 33 lbs R Lateral Pinch (lbs): 9 lbs R Tripod/ 3 Jaw Bashir (lbs): 5.5 lbs L Lateral Pinch (lbs): 10 lbs L Tripod/ 3 Jaw Bashir (lbs): 7 lbs Communication Comprehension: Complex auditory and visual communication Thought Process: Logical, coherent thought form Expression: Expresses complex ideas clearly and fluently Conversation: Appropriate thought content, Responds when asked direct questions UE AROM R UE AROM: WFL L UE AROM: WFL UE and Cervical Strength Strength Tested: Shoulder All, Hand R UE Strength: grossly 4/5 L UE Strength: grossly 4/5 Instrumental Activities of Daily Living Diffi (more content not included)... [facility] 04-26-2025 Note HNO ID: [id number] Author: PASTORA MATA, PT Service: ? Author Type: Physical Therapist Type: Progress Notes Filed: 04/26/2025 13:00 Note Text: Episode Visit Count: 1 Therapist That Will Accept/Oversee The Plan Of Care: Pastora Mata Start of Care Date: 04/26/25 Onset Date: 03/07/24 Plan of Care Certification Date: 04/26/25 Next Certification Due Date: 06/07/25 Patient Identified by Name and Date of : Yes REHABILITATION AND SPORTS THERAPY PHYSICAL THERAPY EVALUATION PLAN OF CARE: Assessment: Saloni Hicks presents with diagnosis of cervical spondylosis with myeloapthy, neuropathy, radiculopathy, lumbar region, multifactoral gait disorder, radiculopathy, cervical region that interferes with bending . The patient presents with impairments in ADL's, balance, gait, independence in exercise, overall function, patient reported outcome measures, and symptom management. Patient did not complete the PROMIS? (Patient Reported Outcome Measures Information System). Prognosis for therapy is Fair due to: multiple co- morbidities, memory deficits, chronic nature of impairments, clinical presentation . The patient will benefit from skilled therapy services to meet the goals established for this plan of care as noted below. Goals for Episode of Care: established 04/26/25 Patient will report no falls. Parmer in home exercise program including cardiovascular exercise. Patient will demonstrate independent and proper use of assisstive device to allow for improved walking quality and safety therefore reducing the risk of falls. Patient Goals: improve balance, walk without AD Time Frame for Goals and Treatment : 06/07/25 Planned Interventions, Frequency, and Duration: Current Frequency: 1x/week Duration: 6 weeks Total Number of Visits Planned: 6 Planned Treatment Interventions: Self-penitentiary management (43273), Therapeutic activities (45234), Manual therapy (64257), Neuromuscular re-education (76555), Therapeutic exercise (46548), Gait Training (78311) PLAN FOR NEXT VISIT: pt. to transfer to [facility] [place] Patient demonstrates fair understanding of plan of care and treatment. The above goals and plan of care were discussed and agreed upon by patient/family. Patient transferring care to: [facility] SUBJECTIVE: for neck and LBP. Pt. states I have everything wrong with me, but I never know when I'll have trouble. Pt .reports that bending is the one thing she can do (in sitting.) Pt. uses a rollator and has been since a fall February 2024 resulting in femur fx. Pt. has been using an AD to walk since. Pt. admits she tries not to use an AD. Expresses frustration that she trips over the rollator when it's in her way. Doesn't want to use a FWW in the house because it is slower. Owns a quad cane but the prongs get in her way. Denies pain today but had pain this morning. Pt. usually wakes with pain due to neuropathy in the AM. Provides substantial history and examples. Reports that she falls daily. Wants to improve balance and maintain independence. Patient Goals: improve balance, walk without AD Functional Limitations: bending Prior Level of Function: Independent without limitations Intake Information: Prescription present Falls Interview: No positive findings with falls interview, Uses an assistive device Falls Intervention: Instructed patient on safety and use of assistive device and awareness in regards to falls prevention., More thorough falls assessment to be performed Falls History # of falls in past year: 0 # of falls resulting in an injury in past year: (not since February 2024) Pain: Pain Pain Level: 0 Post Treatment Pain Post Treatment Pain Level: 0 Post Treatment Pain Location: Leg - Left Post Treatment Pain Description: Numbness OBJECTIVE MEASURES WITH LEVEL OF FUNCTION: Posture / Alignment Posture: Forward head, Increased thoracic kyphosis Gait Gait: Modified Independent Gait Distance (feet): 50 Gait Device: Wheeled Walker Gait Deviations: General Deviations Education: Education Learning Preferences: Demonstration, Explanation, Performance, Printed Materials Barriers: Low activity tolerance/endurance Learning/educational needs: Plan of Care, Home exercise program Education Provided: Yes, see treatment interventions for education provided Education Provided To: Patient Education Mode/Type: Demonstration, Explanation/Discussion, Literature/Printed Materials, Performance Response to Education/Teach Back: States/Identifies, Return Demonstration TREATMENT: PT Treatment Interventions: Self-Shelter Management Evaluation Self-Shelter Management: 1: substantial time listening to pt. concerns and frustration regarding repeated falls while needing to use an AD 2: substantail time spent discussing importance of use of AD 3: discussed at length importance of being mindful of completing movements safely Skilled Intervention: Skilled judg (more content not included)... [facility] 04-26-2025 History of Presen t illness Narrative Episode Visit Count: 1 Therapist That Will Accept/Oversee The Plan Of Care: Pastora Mata Start of Care Date: 04/26/25 Onset Date: 03/07/24 Plan of Care Certification Date: 04/26/25 Next Certification Due Date: 06/07/25 Patient Identified by Name and Date of : Yes REHABILITATION AND SPORTS THERAPY PHYSICAL THERAPY EVALUATION PLAN OF CARE: Assessment: Saloni Shira Hicks presents with diagnosis of cervical spondylosis with myeloapthy, neuropathy, radiculopathy, lumbar region, multifactoral gait disorder, radiculopathy, cervical region that interferes with bending . The patient presents with impairments in ADL's, balance, gait, independence in exercise, overall function, patient reported outcome measures, and symptom management. Patient did not complete the PROMIS (Patient Reported Outcome Measures Information System). Prognosis for therapy is Fair due to: multiple co- morbidities, memory deficits, chronic nature of impairments, clinical presentation . The patient will benefit from skilled therapy services to meet the goals established for this plan of care as noted below. Goals for Episode of Care: established 04/26/25 Patient will report no falls. Parmer in home exercise program including cardiovascular exercise. Patient will demonstrate independent and proper use of assisstive device to allow for improved walking quality and safety therefore reducing the risk of falls. Patient Goals: improve balance, walk without AD Time Frame for Goals and Treatment : 06/07/25 Planned Interventions, Frequency, and Duration: Current Frequency: 1x/week Duration: 6 weeks Total Number of Visits Planned: 6 Planned Treatment Interventions: Self-penitentiary management (02722), Therapeutic activities (06283), Manual therapy (50583), Neuromuscular re-education (88077), Therapeutic exercise (70595), Gait Training (59899) PLAN FOR NEXT VISIT: pt. to transfer to [facility] Patient demonstrates fair understanding of plan of care and treatment. The above goals and plan of care were discussed and agreed upon by patient/family. Patient transferring care to: [facility] SUBJECTIVE: for neck and LBP. Pt. states I have everything wrong with me, but I never know when I'll have trouble. Pt .reports that bending is the one thing she can do (in sitting.) Pt. uses a rollator and has been since a fall February 2024 resulting in femur fx. Pt. has been using an AD to walk since. Pt. admits she tries not to use an AD. Expresses frustration that she trips over the rollator when it's in her way. Doesn't want to use a FWW in the house because it is slower. Owns a quad cane but the prongs get in her way. Denies pain today but had pain this morning. Pt. usually wakes with pain due to neuropathy in the AM. Provides substantial history and examples. Reports that she falls daily. Wants to improve balance and maintain independence. Patient Goals: improve balance, walk without AD Functional Limitations: bending Prior Level of Function: Independent without limitations Intake Information: Prescription present Falls Interview: No positive findings with falls interview, Uses an assistive device Falls Intervention: Instructed patient on safety and use of assistive device and awareness in regards to falls prevention., More thorough falls assessment to be performed Falls History # of falls in past year: 0 # of falls resulting in an injury in past year: (not since February 2024) Pain: Pain Pain Level: 0 Post Treatment Pain Post Treatment Pain Level: 0 Post Treatment Pain Location: Leg - Left Post Treatment Pain Description: Numbness OBJECTIVE MEASURES WITH LEVEL OF FUNCTION: Posture / Alignment Posture: Forward head, Increased thoracic kyphosis Gait Gait: Modified Independent Gait Distance (feet): 50 Gait Device: Wheeled Walker Gait Deviations: General Deviations Education: Education Learning Preferences: Demonstration, Explanation, Performance, Printed Materials Barriers: Low activity tolerance/endurance Learning/educational needs: Plan of Care, Home exercise program Education Provided: Yes, see treatment interventions for education provided Education Provided To: Patient Education Mode/Type: Demonstration, Explanation/Discussion, Literature/Printed Materials, Performance Response to Education/Teach Back: States/Identifies, Return Demonstration TREATMENT: PT Treatment Interventions: Self-Shelter Management Evaluation Self-Shelter Management: 1: substantial time listening to pt. concerns and frustration regarding repeated falls while needing to use an AD 2: substantail time spent discussing importance of use of AD 3: discussed at length importance of being mindful of completing movements safely Skilled Intervention: Skilled judgment in the selection of proper modification for activity of daily living/home management based on clinical presentation, deficits, and needs. Reviewed patient specific diagnosis in relation to activities of daily living/home management. Activity progression based on professional judgement. Billing * Evaluation Low Complexity: 1 Unit Self-Care/Home Management Treatment Minutes: 43 Skilled Treatment Time Minutes (timed and untimed codes): 63 Total Session Time (minutes): 63 Session Start Time : 1132 Session Stop Time : 1235 Pastora Mata PT documented in this encounter [facility] 04-11-2025 Telephone encounter Note Called patient to schedule a New Brain [facility] Consult Appt. for memory loss per staff message and left a message to schedule it as soon as she can near her home location (if it were avaliable) . [facility] 04-11-2025 Miscellaneous Notes Called patient to schedule a New [facility] Consult Appt. for memory loss per staff message and left a message to schedule it as soon as she can near her home location (if it were avaliable) . documented in this encounter [facility] 04-11-2025 Instructions Darren Mercado MD - 04/11/2025 3:55 PM EDT It was a pleasure to see you today. We addressed the following diagnoses: Cervical spondylosis with myelopathy (primary encounter diagnosis) Neuropathy Radiculopathy, lumbar region Multifactorial gait disorder Spastic dysarthria Spinal stenosis of cervical region Decline in verbal memory My recommendations are as follows: You will need to have an MRI of your neck (cervical spine) to help evaluate the tightness in your arms/legs and the numbness in your pelvic area. Please call our office to schedule this study. Begin physical therapy to help improve your walking and reduce leg tightness. Also, restart occupational therapy to focus on improving the use of your right hand and overall strength. Start speech therapy to address the changes you ve noticed in your speech. [facility] to set up an appointment regarding your memory changes. When calling, ask which location is closest to [place]. Plan to return for a follow-up appointment in three months so we can review your MRI findings and your progress with therapy. Movement Disorders Medication Schedule: Medications If there are any concerns before your next visit, please call or you can send a message through [employer]. You can also now schedule and select appointments through [employer]. Darren Mercado MD documented in this encounter [facility] 04-11-2025 Note HNO ID: [id number] Author: DARREN MERCADO MD Service: ? Author Type: Physician Type: Progress Notes Filed: 07/28/2025 13:29 Note Text: [facility] - NEW PATIENT EVALUATION Recording using [employer] software for draft documentation of the visit was discussed with the patient/authorized medical device sales representative; all questions welcomed and answered. Patient/authorized medical device sales representative agreed to proceed Referring Provider: Denisha Steiner [address] [facility] [address] Primary Care Provider: Summer Worrell DO [address] [facility] [id number] Dear Denisha Steiner: Thank you for referring Ms. Hicks to our clinic today. As you know she is a 75 year old female who is seen in consultation for evaluation of since . Subjective HISTORY OF PRESENT ILLNESS: Saloni is a 75-year-old female with a history of type 2 diabetes mellitus presenting for evaluation of balance issues, memory problems, and neuropathy. Saloni reports a two-year history of memory issues, initially noticed while re-landscaping her tenth house, where she had difficulty remembering plant placements and tasks. She also reports a ldy-ly-cfeel-year history of balance problems, describing an inability to stand for extended periods and a tendency to lean forward while walking. She experiences weakness in her legs and shuffles her steps. She began using a walker six months ago and a walking stick more recently. She does not endorse tremors or shakiness of the hands. She reports numbness in her feet and legs, which she attributes to multiple foot surgeries 30 years ago and her diabetes. She also reports numbness in her right hand, making it difficult to steel pickler objects. She does not endorse numbness in her left hand. She reports numbness in her pelvic area for the past six to eight months, stating, from my waist down to my privates, I can barely feel anything. She also reports tightness in her face, tongue, and throat, stating, I just think my whole face is smaller, and it feels tight. She reports difficulty swallowing and a change in her voice, describing it as tighter. She does not endorse difficulty controlling her bladder. She reports a history of vision problems, stating that she had her vision tested in November and was prescribed new glasses, but she could not see with them. She was told to give them a couple of weeks, but she still could not see with them. She had her vision re-tested, and it was found that her right cornea was definitely disturbed. She was prescribed eye drops for a week, but they did not help. [facility] [place] [facility] and was prescribed more drops. She reports that she does not feel any pain in her eye, stating, I don't feel anything. She reports a history of bladder problems for the past 20 to 30 years, stating that she had a sling procedure three years ago, which fixed the problem until she broke her left femur a year ago in February. She reports that her bladder problems returned after the fracture, stating, everything just kind of pushed everything. She was prescribed a medication that helped, but she could not afford it after the samples ran out. She reports a history of Alzheimer's disease and was prescribed donepezil and memantine by her primary care physician and Ms. Steiner. She stopped taking the medications after two weeks due to side effects, stating, I'd rather have Alzheimer's than these dreams and dizziness. She does not endorse acting out her dreams, stating, I had some strange [dreams]. But nothing violent. She reports a history of type 2 diabetes mellitus and does not take insulin. She reports a history of smoking six cigarettes a day and drinking two glasses of wine a week. She does not endorse using recreational drugs. 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 She does not have any children. She reports a family history of diabetes and heart issues in her father, who worked for the [employer], and glaucoma in her mother. Her brother has a history of diabetes, and her sister has a history of obesity and multiple surgeries. She does not endorse a family history of similar walking troubles. Past Diagnostic Results: Imaging - MRI lumbar spine: Conducted at [facility]. Movement Disorders Medications Schedule - as of the start of the visit: Medications Questionnaires ALLERGIES Allergen Reactions Seasonal Allergies Other: See Comments pollen causes sneezing Current Outpatient Medications Medication Sig buPROPion XL (WELLBUTRIN XL) 150 mg 24 hr tablet Take 150 mg by mouth once daily. estradiol (ESTRACE) 0.01 % (0.1 mg/gram) vaginal cream Insert 1 gram of cream intravaginally at bedtime nightly for 2 weeks, and then twice weekly. Save a pea sized amount to apply externally. gabapentin (NEURONTIN) 100 mg capsule Take 600 mg by mouth once daily. metFORMIN (more content not included)... [facility] 04-11-2025 History of Presen t illness Narrative [facility] - NEW PATIENT EVALUATION Recording using [employer] software for draft documentation of the visit was discussed with the patient/authorized medical device sales representative; all questions welcomed and answered. Patient/authorized medical device sales representative agreed to proceed Referring Provider: Denisha Steiner [address] [facility] [address] Primary Care Provider: Summer Worrell DO [address] [facility] [address] Dear Denisha Steiner: Thank you for referring Ms. Hicks to our clinic today. As you know she is a 75 year old female who is seen in consultation for evaluation of since . Subjective HISTORY OF PRESENT ILLNESS: Saloni is a 75-year-old female with a history of type 2 diabetes mellitus presenting for evaluation of balance issues, memory problems, and neuropathy. Saloni reports a two-year history of memory issues, initially noticed while re-landscaping her tenth house, where she had difficulty remembering plant placements and tasks. She also reports a tfe-jy-mshft-year history of balance problems, describing an inability to stand for extended periods and a tendency to lean forward while walking. She experiences weakness in her legs and shuffles her steps. She began using a walker six months ago and a walking stick more recently. She does not endorse tremors or shakiness of the hands. She reports numbness in her feet and legs, which she attributes to multiple foot surgeries 30 years ago and her diabetes. She also reports numbness in her right hand, making it difficult to steel pickler objects. She does not endorse numbness in her left hand. She reports numbness in her pelvic area for the past six to eight months, stating, from my waist down to my privates, I can barely feel anything. She also reports tightness in her face, tongue, and throat, stating, I just think my whole face is smaller, and it feels tight. She reports difficulty swallowing and a change in her voice, describing it as tighter. She does not endorse difficulty controlling her bladder. She reports a history of vision problems, stating that she had her vision tested in November and was prescribed new glasses, but she could not see with them. She was told to give them a couple of weeks, but she still could not see with them. She had her vision re-tested, and it was found that her right cornea was definitely disturbed. She was prescribed eye drops for a week, but they did not help. [facility] in [place] [facility] and was prescribed more drops. She reports that she does not feel any pain in her eye, stating, I don't feel anything. She reports a history of bladder problems for the past 20 to 30 years, stating that she had a sling procedure three years ago, which fixed the problem until she broke her left femur a year ago in February. She reports that her bladder problems returned after the fracture, stating, everything just kind of pushed everything. She was prescribed a medication that helped, but she could not afford it after the samples ran out. She reports a history of Alzheimer's disease and was prescribed donepezil and memantine by her primary care physician and Ms. Steiner. She stopped taking the medications after two weeks due to side effects, stating, I'd rather have Alzheimer's than these dreams and dizziness. She does not endorse acting out her dreams, stating, I had some strange [dreams]. But nothing violent. She reports a history of type 2 diabetes mellitus and does not take insulin. She reports a history of smoking six cigarettes a day and drinking two glasses of wine a week. She does not endorse using recreational drugs. 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 She does not have any children. She reports a family history of diabetes and heart issues in her father, who worked for the [employer], and glaucoma in her mother. Her brother has a history of diabetes, and her sister has a history of obesity and multiple surgeries. She does not endorse a family history of similar walking troubles. Past Diagnostic Results: Imaging - MRI lumbar spine: Conducted at [facility]. Movement Disorders Medications Schedule - as of the start of the visit: Medications Questionnaires ALLERGIES Allergen Reactions Seasonal Allergies Other: See Comments pollen causes sneezing Current Outpatient Medications Medication Sig buPROPion XL (WELLBUTRIN XL) 150 mg 24 hr tablet Take 150 mg by mouth once daily. estradiol (ESTRACE) 0.01 % (0.1 mg/gram) vaginal cream Insert 1 gram of cream intravaginally at bedtime nightly for 2 weeks, and then twice weekly. Save a pea sized amount to apply externally. gabapentin (NEURONTIN) 100 mg capsule Take 600 mg by mouth once daily. metFORMIN (GLUCOPHAGE) 500 mg tablet Take 1 [...] tablet by mouth every Friday and Friday. donepezil (ARICEPT) 5 mg tablet Take 1 tablet by mouth daily at bedtime. memantine (NAMENDA) 5 mg tablet Take 5 mg by mouth two times a day. No current facility-administered medications for this visit. Past Medical and Surgical History: has a past medical history of Anxiety and depression (08/20/2017), Controlled type 2 diabetes mellitus without complication, without long-term current use of insulin ([facility]) (05/08/2017), Diabetic eye exam ([facility]) (07/07/2017), DM (diabetes mellitus) ([facility]), Essential hypertension (03/04/2018), GERD without esophagitis (08/20/2017), Herpes simplex infection of genitourinary system (08/20/2017), Hypothyroid, Hypothyroidism (05/08/2017), Smoker (08/20/2017), and TIA (transient ischemic attack). has a past surgical history that includes meniscal repair sys,[id number] (Right); correct bunion,simple (Bilateral, 1997); cataract ext; eyeonics iol sys (11/24/2007); prosthesis, breast, imp (Bilateral, 11/24/1975); colonoscopy (05/08/2008); tonsillectomy hx (11/24/1954); hammertoe revision, one toe (11/24/1975); and urology procedure. Social History Tobacco Use Smoking status: Every Day Current packs/day: 0.00 Average packs/day: 1 pack/day for 20.0 years (20.0 ttl pk-yrs) Types: Cigarettes Start date: 09/24/2002 Last attempt to quit: 09/24/2022 Years since quittin.5 Smokeless tobacco: Never Vaping Use Vaping status: Former Substance Use Topics Alcohol use: Yes Alcohol/week: 1.0 - 2.0 standard drink of alcohol Types: 1 - 2 Glasses of Wine (5oz) per week Comment: 1-2 per day Drug use: No Family History: family history includes Cancer in her mother; Diabetes in her brother, father, and sister; Heart in her father. Objective Vital Signs: BP 159/91 (BP Site: Right Arm, BP Position: Sitting, BP Cuff Size: Small Adult) Pulse 85 Temp 37.2 C (99 F) (Temporal) Ht 167.5 cm (5' 5.95) Wt 62.5 kg (137 lb 14.4 oz) BMI 22.29 kg/m Orthostatic Vitals: None for this encounter No LMP recorded. Patient is postmenopausal. Body mass index is 22.29 kg/m . Mental Status: Awake, alert, and oriented to person, place, and time. Recent and remote memory are intact. Speech is spastic with a monotonous voice. Language is fluent with no aphasia. Cranial Nerves: CN II: Right corneal disturbance noted. Left normal visual field. CN III, IV, : Extraocular movements intact bilaterally. No nystagmus. Normal saccades. Normal smooth pursuit. CN VII: Right: Ptosis noted. Face symmetric otherwise. Left: There is no facial weakness. CN II-XII are otherwise grossly intact, except as noted. Motor: Reduced muscle bulk noted. Increased muscle tone in the left upper extremity more than the right. No resting tremor. Strength is impaired in the right hand with difficulty in finger tapping and hand movements. No pronator drift. Sensory: Impaired pinprick sensation in a glove and stocking distribution, mid-thigh on the right side up to the knee on the left side, right forearm, and not much in the left hand. Vibration sense was 10 seconds at the medial malleolus. Reflexes: Right Left Brachioradialis 2+ 2+ Biceps 2+ 2+ Patellar 3+ 3+ Achilles 3+ 3+ Right Plantar: upgoing Left Plantar: upgoing Coordination: Right: [id number] normal. Finger tapping and hand movement impaired. Left: Kghzuo-[id number] normal. Finger tapping and hand movement impaired. Gait: Able to stand up unassisted but walked very carefully with short stride length and spastic gait. She was not moving her hip joints but was moving her knee joints while walking. Able to stand on toes better than on heels. Had trouble walking tandem. Romberg was positive. Pull test was not done. Movement Disorders Scales Performed: MDS-UPDRS Motor subscale condition of exam Medication Off/On/Naiive Drug Naiive Time of UPDRS 1525 Time of Last Medication Last Medication Taken DBS Right N/A DBS Left N/A MDS-UPDRS Motor subscale scores Speech 1-Slight. Loss of modulation, diction or volume, but still all words easy to understand. Facial Expression 1-Slight. Minimal masked facies manifested only by decreased frequency of blinking. Rigidity Neck 1-Slight. Rigidity only detected with activation maneuver. Rigidity Right Upper Extremity 2-Mild. Rigidity detected without the activation maneuver, but full range of motion is easily achieved. Rigidity Left Upper Extremity 1-Slight. Rigidity only detected with activation maneuver. Rigidity Right Lower Extremity 3-Moderate. Rigidity detected without the activation maneuver. Full range of motion is achieved with effort. Rigidity Left Lower Extremity 3-Moderate. Rigidity detected without the activation maneuver. Full range of motion is achieved with effort. Finger Taps Right 2-Mild. a) 3 to 5 interruptions during tapping, b) mild slowing, c) the amplitude decrements midway in the 10-tap sequence. Finger Taps Left 3-Moderate. a) more than 5 interruptions during tapping or at least one longer arrest (freeze) in ongoing movement, b) moderate slowing, c) the amplitude decrements starting after the 1st tap. Hand Movements Right 2-Mild. a) 3 to 5 interruptions during the movements, b) mild slowing, c) the amplitude decrements midway in the task. Hand Movements Left 2-Mild. a) 3 to 5 interruptions during the movements, b) mild slowing, c) the amplitude decrements midway in the task. Arm Movements Right 1-Slight. a) the regular rhythm is broken with one or two interruptions or hesitations of the movement, b) slight slowing, c) the amplitude decrements near the end of the sequence. Arm Movements Left 1-Slight. a) the regular rhythm is broken with one or two interruptions or hesitations of the movement, b) slight slowing, c) the amplitude decrements near the end of the sequence. Toe Taps Right 2-Mild. a) 3 to 5 interruptions during the tapping movements, b) mild slowing, c) the amplitude decrements midway in the task. Toe Taps Left 1-Slight. a) the regular rhythm is broken with one or two interruptions or hesitations of the tapping movement, b) slight slowing, c) the amplitude decrements near the end of the ten taps. Leg Agility Right 2-Mild. a) 3 to 5 interruptions during the movements, b) mild slowness, c) the amplitude decrements midway in the task. Leg Agility Left 2-Mild. a) 3 to 5 interruptions during the movements, b) mild slowness, c) the amplitude decrements midway in the task. Arise From Chair 0-Normal. No problems. Able to arise quickly without hesitation. Gait 3-Moderate. Requires an assistance device for safe walking (walking stick, walker) but not a person. Gait Freezing 0-Normal. No freezing. Posture Stability 3-Moderate. Stands safely, but with absence of postural response, falls if not caught by examiner. Posture 1-Slight. Not quite erect, but posture could be normal for older person. Body Bradykinesia 3-Moderate. Moderate global slowness and poverty of spontaneous movements. Postural Tremor Hand Right 1-Slight. Tremor is present but less than 1cm in amplitude. Postural Tremor Hand Left 1-Slight. Tremor is present but less than 1cm in amplitude. Kinetic Tremor Right 1-Slight. Tremor is present but less than 1cm in amplitude. Kinetic Tremor Left 1-Slight. Tremor is present but less than 1cm in amplitude. Rest Tremor Amplitude Right Upper Extremity 0-Normal. No tremor. Rest Tremor Amplitude Left Upper Extremity 0-Normal. No tremor. Rest Tremor Amplitude Right Lower Extremity 0-Normal. No tremor. Rest Tremor Amplitude Left Lower Extremity 0-Normal. No tremor. Rest Tremor Amplitude Lip/Jaw 0-Normal. No tremor. Rest Tremor Constancy 0-Normal. No tremor. MDS-UPDRS Motor subscale totals Left Total 15 Right Total 16 Midline Total 13 Tremor Total / 10 4 PIGD Total / 3 6 Overall Total 44 Change Better/Worse % Change Compared to Last Filed Total Tests Ophthalmic examination: Corneal abnormality in the right eye with decreased sensation. (November) Ophthalmic examination: Corneal abnormality in the right eye. [facility] test at [facility]: Demonstrated inability to stand straight. Assessment and Plan: Assessment Ms. Hicks is a 75 year old year old female with spastic paraparesis and multifactorial gait disorder with cervical myelopathy, peripheral neuropathy, arthritis of left hip from fracture and several foot surgeries with lumbar radiculopathy. She also reports numbness in the saddle area and has been told she has severe arthritis of her back from years of heavy lifting. However, she also has spastic dysarthria and reports memory changes. The following are the current problems noted and addressed during this visit: Cervical spondylosis with myelopathy (primary encounter diagnosis) Neuropathy Radiculopathy, lumbar region Multifactorial gait disorder Spastic dysarthria Spinal stenosis of cervical region Decline in verbal memory Unspecified ptosis of right eyelid History of falling Plan 04/11/2025 Visit: # Cervical spondylosis with myelopathy (M47.12) # Spinal stenosis of cervical region (M48.02) Suspected cervical spondylosis with myelopathy contributing to tightness and weakness in arms and legs. No previous MRI of the cervical spine available for review. - Ordered MRI of the cervical spine to evaluate for spondylosis and myelopathy. # Neuropathy (G62.9) Long-standing neuropathy, likely secondary to diabetes mellitus type 2, with numbness in feet, legs, and pelvic area. Previous foot surgeries may have contributed to neuropathy. - Continue management of diabetes mellitus type 2 to prevent further progression of neuropathy. # Radiculopathy, lumbar region (M54.16) History of lumbar spinal stenosis with radiculopathy, contributing to lower extremity weakness and numbness. - Obtain previous MRI of the lumbar spine from [facility] for review. 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 Patient exhibits spastic gait with short stride length and difficulty with tandem walking. - Initiate physical therapy to improve gait and mobility. 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 - Initiate speech therapy to address dysarthria. # Decline in verbal memory (R41.3) Reported memory issues over the past two years, with difficulty remembering tasks and confusion. - [facility]erred to [facility] for further evaluation and management of memory decline. # Unspecified ptosis of right eyelid (H02.401) Right-sided ptosis noted on examination, reportedly longstanding and unchanged. # History of falling (Z91.81) Frequent falls over the past two years, likely due to multifactorial gait disorder and neuropathy. - Emphasized importance of using walker for stability and safety. Updated Movement Disorders Medication Schedule: Medications Return at or around: 07/12/25 Thank you for allowing me to be part of the clinical care of this patient! I look forward to continued participation in the patient s care with you. Please do not hesitate to call with any questions. Sincerely, Darren Mercado MD documented in this encounter [facility] 03-17-2025 Note HNO ID: [id number] Author: LAKEISHA LEMONS MD Service: ? Author Type: Physician Type: Progress Notes Filed: 03/17/2025 17:40 Note Text: Environmental Services Specialist offered: Patient declines. Saloni is a 75 year old who presents for a problem visit with: vaginal irritation with pain, burning and itching. No vaginal bleeding. Small amount of creamy vaginal discharge. Not sexually active. Her vaginal symptoms are constant and bothersome daily. Used vaginal estrogen cream prescribed by her PCP for 3-4 weeks without relief, and stopped after 3-4 weeks. She is unsure of dosage. Has had yeast infections in the past as well. OB History Gravida0 Para0 Term0 Preterm0 AB0 Living0 SAB0 IAB0 Ectopic0 Multiple0 Live Births0 FAMILY HISTORY Problem Relation Age of Onset Cancer Mother Malignant neoplastic disease Heart Father Diabetes Father Diabetes Sister Diabetes Brother SOCIAL HISTORY Social History Tobacco Use Smoking status: Every Day Current packs/day: 0.00 Average packs/day: 1 pack/day for 20.0 years (20.0 ttl pk-yrs) Types: Cigarettes Start date: 09/24/2002 Last attempt to quit: 09/24/2022 Years since quittin.4 Smokeless tobacco: Never Vaping Use Vaping status: Former Substance Use Topics Alcohol use: Yes Alcohol/week: 1.0 - 2.0 standard drink of alcohol Types: 1 - 2 Glasses of Wine (5oz) per week Comment: 1-2 per day Drug use: No REVIEW OF SYSTEMS Abdomen: No abdominal pain, nausea, vomiting, diarrhea, or constipation. Bladder: No dysuria. Allergies and current medication updated:Yes SENSITIVE EXAM: The sensitive examination was discussed with the Patient or Patient's Authorized A&P Technician. As applicable, any other physician, advance practice provider, medical student, or other health professional student that will be observing or involved in the sensitive examination for educational or training purposes was discussed with the Patient or Authorized A&P Technician. The Patient or Authorized A&P Technician has agreed to proceed with the sensitive examination. (Sensitive examination includes inspection and/or palpation of the breasts, pelvis, prostate and anorectal regions). EXAM: BP 110/78 Ht 5' 6.5 (1.69m) Wt 136 lb 6.4 oz (61.9kg) BMI 21.69 kg/(m2). GENERAL: pleasant, female in no apparent distress CHEST: Normal inspiratory effort PELVIC: external genitalia atrophic, normal Bartholin's glands, urethra, [place]'s glands, no vulvar lesions, no cervical lesions, good vaginal support, physiologic discharge present, normal appearing perineal body and perianal region, vaginal atrophy noted BIMANUAL: uterus normal size, shape and consistency, no adnexal masses, and non-tender RECTOVAGINAL: deferred. NEURO: exam grossly non-focal EXTREMITIES: normal ASSESSMENT/PLAN: Vulvovaginal atrophy: Discussed r/b/a vaginal estrogen cream and patient desires to start. Rx sent and discussed proper use. Vaginal discharge: Check BV, yeast. Follow up for annual exam. Lakeisha Lemons, Medical Decision Making: Problems: Moderate: 1+ chronic illnesses with change Data: Unique test(s) ordered: 2 Risk: Moderate: Drug management Medical Decision Making Level: 4 - Moderate [facility] 02-08-2025 Instructions Denisha Steiner PA-C - 02/08/2025 8:43 AM EDT Will start aricept for memory, start at 5mg (watch out for weight loss, strange dreams or palpitations in the heart) Consult to neurosurgery is placed for concern of normal pressure hydrocephalus Stay physically active and keep your brain active (continue with physical therapy) Follow up in [address] Tinoco documented in this encounter [facility] 02-08-2025 Note HNO ID: [id number] Author: DENISHA STEINER PA-C Service: ? Author Type: Physician Development Chemist Type: Progress Notes Filed: 02/08/2025 10:23 Note Text: [facility] Name: Saloni Hicks Age: [age] year old Gender: female Primary Care Provider: Summer Worrell, Assessment/Plan: 02/08/2025 - General Neurology, Denisha Steiner PA-C ASSESSMENT ASSESSMENT/PLAN: 1. Paresthesia of skin - ICD9: 782.0, ICD10: R20.2 (primary diagnosis) 2. Generalized weakness - ICD9: 780.79, ICD10: R53.1 Patient with continued paresthesias to the skin, started in the ankles and feet have been constant but will occasionally get intermittent paresthesias elsewhere including the hands and arms. Laboratory workup was unremarkable, previous EMG was negative per patient report. Discussed obtaining skin biopsy and patient was initially agreeable but would no longer like to get this test done. Follow with pain management for this discomfort, recent increase in gabapentin improved symptoms significantly. Encouraged follow-up with pain management for this. Did discuss that neuropathy could be contributing to imbalance issues and may becontributing to falls. Patient using rollator now to ambulate but still having frequent falls. 3. Frequent falls - ICD9: V15.88, ICD10: R29.6 Likely multifactoral, notes history of significant stenosis in the spine, previously seen by spine at an outside clinic but was told she is not a surgical candidate. Also with signs of neuropathy on exam, deferring any further testing for this. 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 Encouraged continuing physical therapy, using a rollator and sitting down should she ever feel lightheaded. Patient agrees and understands. 4. NPH (normal pressure hydrocephalus) (HCC) - ICD9: 331.5, ICD10: G91.2 5. Memory loss Patient with progressive memory loss as well with MoCA today of concerning for mild dementia. MRI of the brain showing concerns of possible NPH as well as atrophy throughout the brain. Currently on memantine through primary care, has been on this for about a month and does not feel any benefit with it. Tolerating it well without any significant abnormalities. However, discussed starting Aricept as this may also be beneficial for gait as well. No history of arrhythmia or cardiac abnormality. Did retake her pulse today and it was around 80 bpm. Discussed other side effects including nightmares and weight loss and encourage patient to keep an eye on her appetite. Will start Aricept at 5 mg and titrate up if tolerated in a few months. Did also discuss a referral to neurosurgery but patient and family would like to see how the medication does before seeing a surgeon. In the interim, discussed brain health and increasing physical and cognitive exercise. Patient and family agreeable to treatment plan of care at this time, questions were answered. Patient to follow-up with Dr. Tinoco in 3 months. Denisha Steiner PA-C Encounter Diagnosis ICD-10-CM 1. Paresthesia of skin R20.2 2. Generalized weakness R53.1 3. Frequent falls R29.6 4. NPH (normal pressure hydrocephalus) (HCC) G91.2 CONSULT TO NEUROSURGERY Return in about 4 months (around 06/10/2025). Chart, labs,and relevant images reviewed. Chief Complaint:Patient presents with: Follow Up Chart Review: Last Filed Values Date of Most Recent Assessment and Plan 01/04/25 Specialty General Neurology Assessment ASSESSMENT/PLAN: 1. Paresthesia of skin - ICD9: 782.0, ICD10: R20.2 (primary diagnosis) 2. Cerebral infarction, unspecified mechanism (HCC) - ICD9: 434.91, ICD10: I63.9 3. Generalized weakness - ICD9: 780.79, ICD10: R53.1 4. Frequent falls - ICD9: V15.88, ICD10: R29.6 Patient with significant worsening paresthesias encompassing her whole body but occasionally exacerbating in the upper extremities unilaterally. Also with generalized weakness causing frequent falls. Previously saw neurology in June 2023 where EMG of the lower extremity was negative, laboratory workup was unremarkable. Did not follow-up but states everything has worsened since, has had multiple falls, estimating about a fall a week. Had a significant fall where she fractured her left femur last February and since she was discharged from rehab her symptoms had worsened. Notes that she has a follow-up with a spinal specialist at an outside clinic at [facility] and was told she had significant degeneration throughout her spine was not a surgical candidate, I do not see these records. Notes that she is never had any brain imaging but at one point was told she had Alzheimer's disease based off of the diagnosis found in some paperwork, patient reports that she is a very poor historian and does not remember many details about this. Overall, unclear etiology for symptoms. Does have some tem (more content not included)... [facility] 02-08-2025 History of Presen t illness Narrative Images from the original note were not included. [facility] Name: Saloni Hicks Age: [age] year old Gender: female Primary Care Provider: Summer Worrell DO Assessment/Plan: 02/08/2025 - General Neurology, Denisha Steiner PA-C ASSESSMENT ASSESSMENT/PLAN: 1. Paresthesia of skin - ICD9: 782.0, ICD10: R20.2 (primary diagnosis) 2. Generalized weakness - ICD9: 780.79, ICD10: R53.1 Patient with continued paresthesias to the skin, started in the ankles and feet have been constant but will occasionally get intermittent paresthesias elsewhere including the hands and arms. Laboratory workup was unremarkable, previous EMG was negative per patient report. Discussed obtaining skin biopsy and patient was initially agreeable but would no longer like to get this test done. Follow with pain management for this discomfort, recent increase in gabapentin improved symptoms significantly. Encouraged follow-up with pain management for this. Did discuss that neuropathy could be contributing to imbalance issues and may be contributing to falls. Patient using rollator now to ambulate but still having frequent falls. 3. Frequent falls - ICD9: V15.88, ICD10: R29.6 Likely multifactoral, notes history of significant stenosis in the spine, previously seen by spine at an outside clinic but was told she is not a surgical candidate. Also with signs of neuropathy on exam, deferring any further testing for this. 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 Encouraged continuing physical therapy, using a rollator and sitting down should she ever feel lightheaded. Patient agrees and understands. 4. NPH (normal pressure hydrocephalus) (HCC) - ICD9: 331.5, ICD10: G91.2 5. Memory loss Patient with progressive memory loss as well with MoCA today of concerning for mild dementia. MRI of the brain showing concerns of possible NPH as well as atrophy throughout the brain. Currently on memantine through primary care, has been on this for about a month and does not feel any benefit with it. Tolerating it well without any significant abnormalities. However, discussed starting Aricept as this may also be beneficial for gait as well. No history of arrhythmia or cardiac abnormality. Did retake her pulse today and it was around 80 bpm. Discussed other side effects including nightmares and weight loss and encourage patient to keep an eye on her appetite. Will start Aricept at 5 mg and titrate up if tolerated in a few months. Did also discuss a referral to neurosurgery but patient and family would like to see how the medication does before seeing a surgeon. In the interim, discussed brain health and increasing physical and cognitive exercise. Patient and family agreeable to treatment plan of care at this time, questions were answered. Patient to follow-up with Dr. Tinoco in 3 months. Denisha Steiner PA-C Encounter Diagnosis ICD-10-CM 1. Paresthesia of skin R20.2 2. Generalized weakness R53.1 3. Frequent falls R29.6 4. NPH (normal pressure hydrocephalus) (HCC) G91.2 CONSULT TO NEUROSURGERY Return in about 4 months (around 06/10/2025). Chart, labs,and relevant images reviewed. Chief Complaint:Patient presents with: Follow Up Chart Review: Last Filed Values Date of Most Recent Assessment and Plan 01/04/25 Specialty General Neurology Assessment ASSESSMENT/PLAN: 1. Paresthesia of skin - ICD9: 782.0, ICD10: R20.2 (primary diagnosis) 2. Cerebral infarction, unspecified mechanism (HCC) - ICD9: 434.91, ICD10: I63.9 3. Generalized weakness - ICD9: 780.79, ICD10: R53.1 4. Frequent falls - ICD9: V15.88, ICD10: R29.6 Patient with significant worsening paresthesias encompassing her whole body but occasionally exacerbating in the upper extremities unilaterally. Also with generalized weakness causing frequent falls. Previously saw neurology in June 2023 where EMG of the lower extremity was negative, laboratory workup was unremarkable. Did not follow-up but states everything has worsened since, has had multiple falls, estimating about a fall a week. Had a significant fall where she fractured her left femur last February and since she was discharged from rehab her symptoms had worsened. Notes that she has a follow-up with a spinal specialist at an outside clinic at [facility] and was told she had significant degeneration throughout her spine was not a surgical candidate, I do not see these records. Notes that she is never had any brain imaging but at one point was told she had Alzheimer's disease based off of the diagnosis found in some paperwork, patient reports that she is a very poor historian and does not remember many details about this. Overall, unclear etiology for symptoms. Does have some temperature decrease in the left lower extremity, discussed possible small fiber neuropathy and patient would like to proceed with a skin biopsy. Due to multiple neurologic concerns and poor history do feel MRI of the brain is appropriate especially reporting some memory concerns as well. Will order MRI of the brain without contrast. Will have patient follow-up after workup. Will also gather information from other outside hospitals to see what has been done. Patient agreeable to treatment plan of care at this time, questions were answered. Patient to follow-up after workup. Denisha Steiner PA-C HPI: Last seen for frequent falls and weakness on 01/04/25. Hx of spinal stenosis. Was told she had dementia. Also sxs of small fiber neuropathy, ordered skin bx. MRI showing significant atrophy. Patient presenting for follow-up appointment. Notes that in the last month she still had about 6-8 falls, most of the minor but 1 or 2 of them notes she fell hard on the ground with no major injuries. Last of this was a few days ago but does not member how she fell. No syncope or loss of consciousness. No major injuries with any of the falls. Notes that a few of the falls were while she was reaching for her walker she reached too far and fell forward. Has been going to physical therapy and does find it helpful. Does report longstanding history of urinary incontinence as well, has had surgery for this in the past which was not helpful. Notes her memory has been stable but still poor, forgetting many short-term things. 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 Also notes that the paresthesias are keeping her up at night, recently had her gabapentin increased by primary care to 40 mg 3 times a day. Notes it has significantly helped with some of the paresthesias she has been experiencing. Primarily follows with Dr. Roach for this who is in pain management. No other new symptoms or concerns today. Namenda- on this for a month. Review of Systems ACTIVE PROBLEM LIST Controlled Type 2 Diabetes Mellitus Without Complication, Without Long-Term Current Use of Insulin ([facility]) Acquired Hypothyroidism Diabetic Eye Exam ([facility]) Gerd Without Esophagitis Herpes Simplex Infection of Genitourinary System Anxiety and Depression Smoker Iron Deficiency Anemia Encounter for Gynecological Examination Without Abnormal Finding Type 2 Diabetes Mellitus With Diabetic Neuropathy ([facility]) History of Tia (Transient Ischemic Attack) Vitamin D Deficiency Chronic Seasonal Allergic Rhinitis Osteopenia, Senile Carotid Stenosis, Asymptomatic, Bilateral Medicare Annual Wellness Visit, Subsequent Current Use of Proton Pump Inhibitor Essential Hypertension PAST MEDICAL HISTORY Diagnosis Date Anxiety and depression 08/20/2017 Controlled type 2 diabetes mellitus without complication, without long-term current use of insulin ([facility]) 05/08/2017 Diabetic eye exam ([facility]) 07/07/2017 Last done: 06/26/2017 DM (diabetes mellitus) ([facility]) Essential hypertension 03/04/2018 GERD without esophagitis 08/20/2017 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 Hypothyroid Hypothyroidism 05/08/2017 Smoker 08/20/2017 Started at age 16 up to 1 PPD TIA (transient ischemic attack) Medications: Reviewed gabapentin (NEURONTIN) 100 mg capsule Take 600 mg by mouth once daily. memantine (NAMENDA) 5 mg tablet Take 5 mg by mouth two times a day. metFORMIN (GLUCOPHAGE) 500 mg tablet Take 1 [...] tablet by mouth every Friday and Friday. donepezil (ARICEPT) 5 mg tablet Take 1 tablet by mouth daily at bedtime. ALLERGIES Allergen Reactions Seasonal Allergies Other: See Comments pollen causes sneezing FAMILY HISTORY Problem Relation Age of Onset Cancer Mother Malignant neoplastic disease Heart Father Diabetes Father Diabetes Sister Diabetes Brother PAST SURGICAL HISTORY Procedure Laterality Date CATARACT EXT; EYEONICS IOL SYS 11/24/2007 both COLONOSCOPY 05/08/2008 repeat 10 yrs CORRECT BUNION,SIMPLE Bilateral 1997 left HAMMERTOE REVISION, ONE TOE 11/24/1975 right MENISCAL REPAIR SYS,DREW,[id number] Right knee PROSTHESIS, BREAST, IMP Bilateral 11/24/1975 TONSILLECTOMY HX 11/24/1954 Social Hx: @Alcohol Use: Not on file Tobacco Use: Medium Risk (02/08/2025) Patient History Smoking Tobacco Use: Former Smokeless Tobacco Use: Never Passive Exposure: Not on file 02/08/25 0805 BP: 135/81 Pulse: 109 MoCA: Visual-spatial: 11/28 Namin/3 Attention: 02/27 Language: 03 Abstraction: 12/26 Delayed recall: 01/26 Orientation: 03/29 Neurologic Exam Cognitive and Language: Alert and answered questions appropriately. Language was fluent. Cranial Nerves: Extraocular movements were full with no diplopia or nystagmus. Facial strength was symmetric. Motor: All 4 extremities, slight decrease in strength to the left upper extremity and left lower extremity at the hip and deltoid. Sensory: Decrease sensation in the lower extremities. Coordination: Ambulating with a rollator, slight shuffled gait. Labs: Lab Results Component Value Date WBC 12.44 (H) 02/13/2019 HCT 33.0 (L) 02/13/2019 MCV 90.9 02/13/2019 PLT 228 02/13/2019 Lab Results Component Value Date HBA1C 6.8 02/13/2018 HBA1C 6.6 07/22/2017 Cholesterol, Total Date Value Ref Range Status 02/13/2018 182 <200 mg/dL Final Comment: <200 mg/dL, Desirable 200-239 mg/dL, Borderline high >239 mg/dL, High HDL Cholesterol Date Value Ref Range Status 02/13/2018 73 >39 mg/dL Final Comment: 40-59 mg/dL, Acceptable >59 mg/dL, High: Negative risk factor for coronary heart disease <40 mg/dL, Low: Positive risk factor for coronary heart disease LDL Cholesterol Date Value Ref Range Status 02/13/2018 99 <100 mg/dL Final Comment: <100 mg/dL, Optimal 100-129 mg/dL, Near optimal/above optimal 130-159 mg/dL, Borderline high 160-189 mg/dL, High >189 mg/dL, Very high Secondary prevention optimal LDL Cholesterol levels are recommended to be < 70 mg/dL Triglyceride Date Value Ref Range Status 02/13/2018 52 <150 mg/dL Final Comment: <150 mg/dL, Normal 150-199 mg/dL, Borderline high 200-499 mg/dL, High >499 mg/dL, Very high Results for orders placed or performed in visit on 07/17/23 VITAMIN B12 BLOOD Result Value Ref Range Vitamin B12 949 232 - 1,245 pg/mL METHYLMALONIC ACID Result Value Ref Range Methylmalonic Acid 130 79 - 376 nmol/L MONOCLONAL PROT UR W/INTERP Result Value Ref Range Result (PA) No M protein is identified. No M protein is identified. Staff Review ([facility]) Reviewed by Dr. Flor Pompa MD VITAMIN D 25 HYDROXY Result Value Ref Range Vitamin D 25 Hydroxy 30.9 (L) 31.0 - 80.0 ng/mL IMMUNOGLOBULINS PARTH Result Value Ref Range IgG 1,236 700 - 1,600 mg/dL IgA 98 70 - 400 mg/dL IgM 147 40 - 230 mg/dL IMMUNOFIXATION SCREEN, SERUM Result Value Ref Range MPA Result No M protein is identified. No M protein is identified. Staff Review ([facility]) Reviewed by Dr. Flor Pompa MD KAPPA/TRAORE,FREE,SER Result Value Ref Range [place] Free, Serum 41.0 (H) 3.3 - 19.4 mg/L Lambda Free, Serum 31.0 (H) 5.7 - 26.3 mg/L K/L Ratio, Serum 1.32 0.26 - 1.65 Radiology: MRI Head/Brain - Last 2 Impressions MRI BRAIN WO IVCON Exam End: 01/12/2025 2:19 PM (Final result) Impression: IMPRESSION: No evidence of an acute intracranial process. Ventriculomegaly which could relate to volume loss and/or communicating ... and MRI Spine - Last 2 Impressions No resulted procedures found. This note was dictated using [employer] speech recognition software and may contain some errors that were a result of the program not accurately transcribing what was dictated, despite efforts to make corrections. Note that unless urgent, test and MRI results will be discussed at next follow-up visit. PROMIS (Patient-Reported Outcomes Measurement Information System) is a set of person-centered measures that evaluates and monitors physical, social, and emotional health. It can be used with the general population and with individuals living with chronic conditions. PROMIS 10: PHYSICAL AND MENTAL HEALTH: Global Physical Health T Score: 39.8 Global Physical Health Percentile: 15 Global Mental Health T Score: 36.3 Global Mental Health Percentile: 9 04/15/2018 PHQ-9 PHQ-2 Score 2 Medical Decision Making: Medical Decision Making Level: 1 - N/A I spent a total of 60 minutes on the date of the service which included preparing to see the patient, [id number] patient care, completing clinical documentation, obtaining and/or reviewing separately obtained history, performing a medically appropriate examination, counseling and educating the patient/family/caregiver, and ordering medications, tests, or procedures. 02/07/2025 PROMIS Global Health Physical Health Summary Physical health: Fair Everyday physical activity, ability: Moderately Fatigue: Mild Pain level: 4 General health: Fair Social activities/roles, ability: Fair Physical Health T-Score 39.8 (Fair) Physical Health Percentile 15 PROMIS Global Health Mental Health Summary Quality of life: Fair Mental health (mood,thinking): Fair Social satisfaction: Fair Emotional problems (anxious,depressed): Sometimes Mental Health T-Score 36.3 (Fair) Mental Health Percentile 9 Percentiles provide an indication of how a patient's score ranks in relation to the [place] general population. > 31st percentile is within normal limits or better *< 31st percentile is at least SD worse than population, which may be clinically relevant < 16th percentile is at least 1 SD worse than population and warrants attention 02/07/2025 Sleep Apnea Probability Snores loudly: No Tired, fatigued or sleepy in daytime: Yes Stops breathing or choking/gasping during sleep: No High blood pressure: No Sleep Apnea Probability Score: 27 (Sleep study not recommended) documented in this encounter [facility] 02-08-2025 Note HNO ID: [id number] Author: PASTORA DONALDSON LPN Service: ? Author Type: LICENSED NURSE Type: Progress Notes Filed: 02/08/2025 10:23 Note Text: 02/07/2025 PROMIS Global Health Physical Health Summary Physical health: Fair Everyday physical activity, ability: Moderately Fatigue: Mild Pain level: 4 General health: Fair Social activities/roles, ability: Fair Physical Health T-Score 39.8 (Fair) Physical Health Percentile 15 PROMIS Global Health Mental Health Summary Quality of life: Fair Mental health (mood,thinking): Fair Social satisfaction: Fair Emotional problems (anxious,depressed): Sometimes Mental Health T-Score 36.3 (Fair) Mental Health Percentile 9 Percentiles provide an indication of how a patient's score ranks in relation to the [place] general population. > 31st percentile is within normal limits or better *< 31st percentile is at least ? SD worse than population, which may be clinically relevant < 16th percentile is at least 1 SD worse than population and warrants attention 02/07/2025 Sleep Apnea Probability Snores loudly: No Tired, fatigued or sleepy in daytime: Yes Stops breathing or choking/gasping during sleep: No High blood pressure: No Sleep Apnea Probability Score: 27 (Sleep study not recommended) [facility] 01-21-2025 Telephone encounter Note Advised patient of message below, verbalized understanding. Scheduled patient for 02/08/25 at 8a Serenity Baxter LPN January 21, 2025 1:[address] [facility] 01-21-2025 Miscellaneous Notes Advised patient of message below, verbalized understanding. Scheduled patient for 02/08/25 at 8a Serenity Baxter LPN January 21, 2025 1:25 PM ----- Message from Denisha Steiner PA-C sent at 01/21/2025 12:55 PM EST ----- There are some areas of atrophy in the brain, will discuss further in person. Would recommend moving up follow up, new slot okay. Denisha Steiner PA-C Patient calls and is asking about results from MRI testing. Patient states that she does not have appointment with provider until June and would like to know about results now. Please review and advise, Charley Barnett RN documented in this encounter [facility] 01-21-2025 Telephone encounter Note ----- Message from Denisha Steiner PA-C sent at 01/21/2025 12:55 PM EST ----- There are some areas of atrophy in the brain, will discuss further in person. Would recommend moving up follow up, new slot okay. Denisha Steiner PA-C [facility] 01-21-2025 Telephone encounter Note Patient calls and is asking about results from MRI testing. Patient states that she does not have appointment with provider until June and would like to know about results now. Please review and advise, Charley Barnett RN [facility] 01-12-2025 History of Presen t illness Narrative Radiology Service Progress Note PATIENT NAME: Saloni Hicks DATE OF SERVICE: January 12, 2025 TIME: 2:05 PM PATIENT IDENTITY VERIFICATION COMPLETED USING TWO (2) IDENTIFIERS: Name and Date of confirmed by patient verbally. FALL SCREENING: Has the patient had 2 falls in the last year or 1 fall with injury or currently using an Ambulatory Assistive Device (Walker, Cane, Wheelchair, Crutches, etc.)? Yes, Patient High Risk for Falls What interventions were put in place to prevent falls during this visit? Instructed Patient to Call for Help if Needed, Offered Assistance with Transfers/Clothing, Instructed Patient to Remain Seated (Not on Exam Table) Until Exam, and Increased Observations by Caregivers PATIENT GENDER DATA: Assigned female at . status: : No status: NO. PATIENT RELEVANT IMPLANT DATA REVIEWED: Yes PATIENT PRESENTS WITH AN IMPLANTABLE OR ATTACHED ROLL FINISHER: No RADIOLOGY DEPARTMENT: MR; Exam(s) Completed: Head: Routine Brain PERIPHERAL IV DATA: Not applicable SIGNED BY: RT Phyllis(Romain) January 12, 2025 2:05 PM documented in this encounter [facility] 01-12-2025 Note HNO ID: [id number] Author: DANITA SWAIN RT(R) Service: ? Author Type: Technologist Type: Progress Notes Filed: 01/12/2025 14:06 Note Text: Radiology Service Progress Note PATIENT NAME: Saloni Hicks DATE OF SERVICE: January 12, 2025 TIME: 2:05 PM PATIENT IDENTITY VERIFICATION COMPLETED USING TWO (2) IDENTIFIERS: Name and Date of confirmed by patient verbally. FALL SCREENING: Has the patient had 2 falls in the last year or 1 fall with injury or currently using an Ambulatory Assistive Device (Walker, Cane, Wheelchair, Crutches, etc.)? Yes, Patient High Risk for Falls What interventions were put in place to prevent falls during this visit? Instructed Patient to Call for Help if Needed, Offered Assistance with Transfers/Clothing, Instructed Patient to Remain Seated (Not on Exam Table) Until Exam, and Increased Observations by Caregivers PATIENT GENDER DATA: Assigned female at . status: : No status: NO. PATIENT RELEVANT IMPLANT DATA REVIEWED: Yes PATIENT PRESENTS WITH AN IMPLANTABLE OR ATTACHED ROLL FINISHER: No RADIOLOGY DEPARTMENT: MR; Exam(s) Completed: Head: Routine Brain PERIPHERAL IV DATA: Not applicable SIGNED BY: RT Phyllis(R) January 12, 2025 2:05 PM [facility] 01-12-2025 Telephone encounter Note Pt is having MRI done. Pastora Donaldson LPN [facility] 01-12-2025 Miscellaneous Notes Pt is having MRI done. Pastora Donaldson LPN Patient calls to report that she had an MRI of her brain done at [facility] in May of 2023. Patient asking if she would still need to have the current ordered MRI completed on 01/12/2025. Patient has results if needs to drop them off she will. Please call her back at [phone]. Alpa Peralta RN documented in this encounter [facility] 01-11-2025 Telephone encounter Note Patient calls to report that she had an MRI of her brain done at [facility] in May of 2023. Patient asking if she would still need to have the current ordered MRI completed on 01/12/2025. Patient has results if needs to drop them off she will. Please call her back at [phone]. Alpa Peralta RN [facility] 01-04-2025 Instructions Denisha Steiner PA-C - 01/04/2025 1:23 PM EST MRI of the brain Skin biopsy Will gather other imaging from [facility] to see what imaging has been done. Follow up after work up. documented in this encounter [facility] 01-04-2025 Note HNO ID: [id number] Author: DENISHA STEINER PA-C Service: ? Author Type: Physician Development Chemist Type: Progress Notes Filed: 01/04/2025 13:51 Note Text: [facility] Name: Saloni Costarp Age: [age] year old Gender: female Primary Care Provider: Summer Worrell DO Consult requested for weakness by . Recommendations will be communicated via shared medical record or US mail. Chief Complaint:New Patient Evaluation 01/04/2025 - General Neurology, Denisha Steiner PA-C ASSESSMENT ASSESSMENT/PLAN: 1. Paresthesia of skin - ICD9: 782.0, ICD10: R20.2 (primary diagnosis) 2. Cerebral infarction, unspecified mechanism (HCC) - ICD9: 434.91, ICD10: I63.9 3. Generalized weakness - ICD9: 780.79, ICD10: R53.1 4. Frequent falls - ICD9: V15.88, ICD10: R29.6 Patient with significant worsening paresthesias encompassing her whole body but occasionally exacerbating in the upper extremities unilaterally. Also with generalized weakness causing frequent falls. Previously saw neurology in June 2023 where EMG of the lower extremity was negative, laboratory workup was unremarkable. Did not follow-up but states everything has worsened since, has had multiple falls, estimating about a fall a week. Had a significant fall where she fractured her left femur last February and since she was discharged from rehab her symptoms had worsened. Notes that she has a follow-up with a spinal specialist at an outside clinic at [facility] and was told she had significant degeneration throughout her spine was not a surgical candidate, I do not see these records. Notes that she is never had any brain imaging but at one point was told she had Alzheimer's disease based off of the diagnosis found in some paperwork, patient reports that she is a very poor historian and does not remember many details about this. Overall, unclear etiology for symptoms. Does have some temperature decrease in the left lower extremity, discussed possible small fiber neuropathy and patient would like to proceed with a skin biopsy. Due to multiple neurologic concerns and poor history do feel MRI of the brain is appropriate especially reporting some memory concerns as well. Will order MRI of the brain without contrast. Will have patient follow-up afterworkup. Will also gather information from other outside hospitals to see what has been done. Patient agreeable to treatment plan of care at this time, questions were answered. Patient to follow-up after workup. Denisha Steiner PA-C Encounter Diagnosis ICD-10-CM 1. Paresthesia of skin R20.2 SKIN BIOPSY FOR NEUROPATHY/CNL 2. Cerebral infarction, unspecified mechanism (HCC) I63.9 MRI BRAIN WO IVCON 3. Generalized weakness R53.1 4. Frequent falls R29.6 MRI BRAIN WO IVCON No follow-ups on file. Chart, labs,and relevant images reviewed. HPI: Saw neuro on 07/15/23 for gait instability. 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 Regular alcohol use, hx of DM for 35 years. Decreased achilles, ordered labs, EMG and sent to PT. EMG negative. No M protein, had low vitamin d and told to supplement. This is a 75 year old female presenting with worsening weakness and frequent falls. Was seen by neurology about a year and a half ago and notes significant worsening of her symptoms since that time. Notes worsening weakness as well as paresthesias. States that the paresthesias are all over, states that she has 1/4 inch thick layer around her whole body that is numb and tingling all t (more content not included)... [facility] 01-04-2025 History of Presen t illness Narrative Images from the original note were not included. [facility] Name: Saloni Hicks Age: [age] year old Gender: female Primary Care Provider: Summer Worrell DO Consult requested for weakness by . Recommendations will be communicated via shared medical record or US mail. Chief Complaint:New Patient Evaluation 01/04/2025 - General Neurology, Denisha Steiner PA-C ASSESSMENT ASSESSMENT/PLAN: 1. Paresthesia of skin - ICD9: 782.0, ICD10: R20.2 (primary diagnosis) 2. Cerebral infarction, unspecified mechanism (HCC) - ICD9: 434.91, ICD10: I63.9 3. Generalized weakness - ICD9: 780.79, ICD10: R53.1 4. Frequent falls - ICD9: V15.88, ICD10: R29.6 Patient with significant worsening paresthesias encompassing her whole body but occasionally exacerbating in the upper extremities unilaterally. Also with generalized weakness causing frequent falls. Previously saw neurology in June 2023 where EMG of the lower extremity was negative, laboratory workup was unremarkable. Did not follow-up but states everything has worsened since, has had multiple falls, estimating about a fall a week. Had a significant fall where she fractured her left femur last February and since she was discharged from rehab her symptoms had worsened. Notes that she has a follow-up with a spinal specialist at an outside clinic at [facility] and was told she had significant degeneration throughout her spine was not a surgical candidate, I do not see these records. Notes that she is never had any brain imaging but at one point was told she had Alzheimer's disease based off of the diagnosis found in some paperwork, patient reports that she is a very poor historian and does not remember many details about this. Overall, unclear etiology for symptoms. Does have some temperature decrease in the left lower extremity, discussed possible small fiber neuropathy and patient would like to proceed with a skin biopsy. Due to multiple neurologic concerns and poor history do feel MRI of the brain is appropriate especially reporting some memory concerns as well. Will order MRI of the brain without contrast. Will have patient follow-up after workup. Will also gather information from other outside hospitals to see what has been done. Patient agreeable to treatment plan of care at this time, questions were answered. Patient to follow-up after workup. Denisha Steiner PA-C Encounter Diagnosis ICD-10-CM 1. Paresthesia of skin R20.2 SKIN BIOPSY FOR NEUROPATHY/CNL 2. Cerebral infarction, unspecified mechanism (HCC) I63.9 MRI BRAIN WO IVCON 3. Generalized weakness R53.1 4. Frequent falls R29.6 MRI BRAIN WO IVCON No follow-ups on file. Chart, labs,and relevant images reviewed. HPI: Saw neuro on 07/15/23 for gait instability. 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 Regular alcohol use, hx of DM for 35 years. Decreased achilles, ordered labs, EMG and sent to PT. EMG negative. No M protein, had low vitamin d and told to supplement. This is a 75 year old female presenting with worsening weakness and frequent falls. Was seen by neurology about a year and a half ago and notes significant worsening of her symptoms since that time. Notes worsening weakness as well as paresthesias. States that the paresthesias are all over, states that she has 1/4 inch thick layer around her whole body that is numb and tingling all the time but occasionally will get exacerbations. No symptoms to wake up in 1 arm will be numb and go away after an hour. States that she follow with spine and was told she had degeneration throughout her whole spine but she was not a surgical candidate, this was at [facility] Notes having seem to worsen about a year ago after she fell in February. Notes that she fell outside while gardening and fractured her femur on the left side. Since that time she has become more weak and unstable. Walks with a walker at home and states that she falls about once a week. States that her typical falls are usually sliding as she over reaches easily falls to the ground. Does live alone and does not have life alert or other communication device. Does note history of multiple surgeries to her feet before she was 30 years old and feels this is contributing. Notes that the weakness and numbness is worse in the morning and around noon she starts to feel normal again. Also reports a history of Alzheimer's disease. States that after last fall when she was discharged from the hospital she was going through her paperwork and saw this as a diagnosis in similar paperwork. States she was never formally diagnosed or told this diagnosis. Does not believe she is ever had any brain imaging. However, does report that she has issues with short-term memory and feels that she is a poor historian. Also notes that she possibly had 1 stroke about 20 years ago when she woke up with bilateral blurred vision, called her doctor and was told to go to the ER but she never did. Told it could be a stroke but never had any evaluation for it. Does not that she is the primary rehabilitation services aide for her boyfriend right now who just had knee surgery. States she was very impressed with his physical therapist so she is scheduled appointments for herself. Review of Systems ACTIVE PROBLEM LIST Controlled Type 2 Diabetes Mellitus Without Complication, Without Long-Term Current Use of Insulin ([facility]) Acquired Hypothyroidism Diabetic Eye Exam ([facility]) Gerd Without Esophagitis Herpes Simplex Infection of Genitourinary System Anxiety and Depression Smoker Iron Deficiency Anemia Encounter for Gynecological Examination Without Abnormal Finding Type 2 Diabetes Mellitus With Diabetic Neuropathy ([facility]) History of Tia (Transient Ischemic Attack) Vitamin D Deficiency Chronic Seasonal Allergic Rhinitis Osteopenia, Senile Carotid Stenosis, Asymptomatic, Bilateral Medicare Annual Wellness Visit, Subsequent Current Use of Proton Pump Inhibitor Essential Hypertension PAST MEDICAL HISTORY Diagnosis Date Anxiety and depression 08/20/2017 Controlled type 2 diabetes mellitus without complication, without long-term current use of insulin ([facility]) 05/08/2017 Diabetic eye exam ([facility]) 07/07/2017 Last done: 06/26/2017 DM (diabetes mellitus) ([facility]) Essential hypertension 03/04/2018 GERD without esophagitis 08/20/2017 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 Hypothyroid Hypothyroidism 05/08/2017 Smoker 08/20/2017 Started at age 16 up to 1 PPD TIA (transient ischemic attack) Medications: Reviewed gabapentin (NEURONTIN) 100 mg capsule Take 600 mg by mouth once daily. memantine (NAMENDA) 5 mg tablet Take 5 mg by mouth two times a day. metFORMIN (GLUCOPHAGE) 500 mg tablet Take 1 [...] tablet by mouth every Friday and Friday. ALLERGIES Allergen Reactions Seasonal Allergies Other: See Comments pollen causes sneezing FAMILY HISTORY Problem Relation Age of Onset Cancer Mother Malignant neoplastic disease Heart Father Diabetes Father Diabetes Sister Diabetes Brother PAST SURGICAL HISTORY Procedure Laterality Date CATARACT EXT; EYEONICS IOL SYS 11/24/2007 both COLONOSCOPY 05/08/2008 repeat 10 yrs CORRECT BUNION,SIMPLE Bilateral 1997 left HAMMERTOE REVISION, ONE TOE 11/24/1975 right MENISCAL REPAIR SYS,[id number] Right knee PROSTHESIS, BREAST, IMP Bilateral 11/24/1975 TONSILLECTOMY HX 11/24/1954 SOCIAL HISTORY No social history on file. Tobacco Use: Medium Risk (01/04/2025) Patient History Smoking Tobacco Use: Former Smokeless Tobacco Use: Never Passive Exposure: Not on file PHYSICAL EXAM 01/04/25 1240 BP: 144/87 Pulse: 85 Neurological Exam Cognitive and Language: Alert and answered questions appropriately. Language was fluent. Followed simple and complex commands. Cranial Nerves: Visual serna were full tested binocularly to finger counting in all 4 quadrants with no visual extinction. Pupils were equal and both reactive to light. Extraocular movements were full with no diplopia or nystagmus. Facial sensation was normal to light touch in V1 to V3. Facial strength was symmetric. Normal hearing grossly bilaterally. Palatal raise was symmetric. Shoulder shrug was symmetric. Tongue protrusion was symmetric with no fasciculations. Power: Poor effort throughout Right Left Shoulder Abduction: 5 5 Elbow Extension 5 5 Elbow Flexion 5 5 Wrist Extension 5 5 Finger Extension 5 5 Finger Abduction 5 5 Right Left Hip Flexion 5 4+ Knee Extension 5 5 Knee Flexion 5 5 Dorsiflexion 5 5 Plantar Flexion 5 5 Rest tremor: Slight [id number] head tremor Tone: Normal in all four limbs Reflexes: Right Left Brachioradialis 2 2 Biceps 2 2 Triceps 2 2 Patella 2 2 Ankle 1 1 Sensory: Slight decrease in temperature to the left lower extremity at the ankle and lower leg. Poor proprioception Romberg testing but otherwise normal sensory exam. Coordination: Gait is slowed and unsteady but at times normal. Patient deferring Romberg testing due to instability Labs: Lab Results Component Value Date WBC 12.44 (H) 02/13/2019 HCT 33.0 (L) 02/13/2019 MCV 90.9 02/13/2019 PLT 228 02/13/2019 Lab Results Component Value Date HBA1C 6.8 02/13/2018 HBA1C 6.6 07/22/2017 Cholesterol, Total Date Value Ref Range Status 02/13/2018 182 <200 mg/dL Final Comment: <200 mg/dL, Desirable 200-239 mg/dL, Borderline high >239 mg/dL, High HDL Cholesterol Date Value Ref Range Status 02/13/2018 73 >39 mg/dL Final Comment: 40-59 mg/dL, Acceptable >59 mg/dL, High: Negative risk factor for coronary heart disease <40 mg/dL, Low: Positive risk factor for coronary heart disease LDL Cholesterol Date Value Ref Range Status 02/13/2018 99 <100 mg/dL Final Comment: <100 mg/dL, Optimal 100-129 mg/dL, Near optimal/above optimal 130-159 mg/dL, Borderline high 160-189 mg/dL, High >189 mg/dL, Very high Secondary prevention optimal LDL Cholesterol levels are recommended to be < 70 mg/dL Triglyceride Date Value Ref Range Status 02/13/2018 52 <150 mg/dL Final Comment: <150 mg/dL, Normal 150-199 mg/dL, Borderline high 200-499 mg/dL, High >499 mg/dL, Very high EMG 07/16/23 Study Interpretation Electrodiagnostic examination of the right lower extremity demonstrates: There is no definite evidence of large fiber polyneuropathy nor lumbar radiculopathy. The absent plantar mixed nerve response and mild chronic axonal loss findings on needle EMG of the intrinsic foot muscle are of uncertain significance in patients of this age. Radiology: MRI Head/Brain - Last 2 Impressions No resulted procedures found. , CT Head/Brain - Last 2 Impressions No resulted procedures found. , and CTA Head and/or Neck - Last 2 No resulted procedures found. This note was dictated using [employer] speech recognition software and may contain some errors that were a result of the program not accurately transcribing what was dictated, despite efforts to make corrections. Note that unless urgent, test and MRI results will be discussed at next follow-up visit. PROMIS (Patient-Reported Outcomes Measurement Information System) is a set of person-centered measures that evaluates and monitors physical, social, and emotional health. It can be used with the general population and with individuals living with chronic conditions. PROMIS 10: PHYSICAL AND MENTAL HEALTH: 04/15/2018 PHQ-9 PHQ-2 Score 2 Medical Decision Making: Medical Decision Making Level: 1 - N/A I spent a total of 55 minutes on the date of the service which included preparing to see the patient, [id number] patient care, completing clinical documentation, obtaining and/or reviewing separately obtained history, performing a medically appropriate examination, counseling and educating the patient/family/caregiver, and ordering medications, tests, or procedures. documented in this encounter [facility] 03-26-2024 Discharge summary Note Date/Time March 26, 2024 2:28pm [facility] Medical Records Department [address] [place] [address] Transfer to Extended Care MR#: [id number] Acct: [id number] Name: SALONI HICKS Rep #: [id number] : 1950 74 From: Moise Glez MD PCP: Dr. Summer Worrell, DO Status:ADM IN Certification of patient admission REQUIRED AT TIME OF ADMISSION. I CERTIFY THAT POST-HOSPITAL ECF SERVICES ARE REQUIRED TO BE GIVEN ON AN IN-PATIENT BASIS BECAUSE OF THE ABOVE NAMED PATIENT'S NEED FOR CORRECTION CARE ON A CONTINUING BASIS FOR THE CONDITION(S) FOR WHICH HE/SHE WAS RECEIVING IN-PATIENT HOSPITAL SERVICES PRIOR TO HIS/HER TRANSFER TO THE ECF. 03/26/24 1428<Electronically signed by Moise Glez MD> Diet Diet Order/Speech Therapy: 03/19/24 16:16 Diet: Regular - General Is pt able to select menu?: Yes Routine Orders/Code Status Code Status: DNRCC-A (No intubation.) Wound(s) LT HIP: Wound Type: Surgical Incision Dressing Change: Dry Sterile Dressing UPPER LT THIGH: Wound Type: Surgical Incision Dressing Change: Dry Sterile Dressing LEFT LOWER THIGH: Wound Type: Surgical Incision Dressing Change: Dry Sterile Dressing LEFT BICEP: Wound Type: Abrasion RT POST RIB AREA: Wound Type: Abrasion Therapies Weight Bearing: Weight bearing as tolerated Extremity Affected:: Left Lower Physical Therapy: Eval and Treat Occupational Therapy: Eval and Treat Problem/Diagnosis (1) Closed fracture of left hip: Status: Resolved Code(s): S72.002A - Fracture of unspecified part of neck of left femur, initial encounterfor closed fracture Plan 74 year old female with below past medical history hospitalized for left hip fracture, underwent left femur IM nail fixation 03/08/[address] Lang, admitted to TCU with debility, here for rehabilitation, strengthening, prior to discharge home alone. * Debility - PT/OT. * Cognition - ST. * Pain - Tylenol 1000mg q8, Oxycodone 10mg q4 prn pain (6-10). * Bowel - senna/colace 2 tablets bid, Magnesium citrate 300ml daily prn. * Adult immunization - Administer pneumonia vaccine, covid vaccine, flu vaccine as appropriate. * DVT prophylaxis - Lovenox 40mg sc daily. * HSV - Acyclovir 400mg tid. * Depression - Bupropion XL 300mg qam. * GERD - Pantoprazole 40mg qhs, TUMS 500mg po tidcm. * Muscle spasm - Flexeril 5mg tid prn. * Vitamin D deficiency - Vitamin D 1.25mg qweek. * Allergic rhinitis - Flonase 1 spray nasal daily, Loratadine 10mg daily. * Hypothyroidism - Levothyroxine 150mcg daily. * Hypertension - Lisinopril 5mg daily. * Diabetes Mellitus II - Metformin 1000mg qam, 500mg qpm. * Nutrition - MVI 1 tablet daily. * Dry mouth - Biotene 5x/day prn. Allergies/Procedures Done in Hospital Allergies No Known Allergies Allergy (Verified 03/19/24 11:31) Procedures: None Type of Care/Length of Stay Estimated LOS: Convalescent Care Less Than 30 days Type of Care Needed: Intermediate Rehab Potential: Poor Prognosis: Fair Additional Orders/Day of Discharge Day of Discharge: 03/29/24 Dietary and Speech Recommendations Dietitian Recommendations/Changes: Continue liberal regular diet per res request. Follow Up Care Please Follow Up With: Alireza Lang DO When: 2 weeks Discharge Plan Admission Admit Date/Time: 03/11/24 13:43 Primary Reason for Your Visit: Debility. Attending Provider: Moise Glez Chi Primary Care Provider: Summer Worrell Instructions Additional Instructions / Restrictions: Discharge to SNF 03/29/2024, intermediate, part b therapies. Discharge Orders/Prescriptions Prescriptions: New sennosides-docusate sodium [Stool Softener-Stimulant Laxat] 8.6-50 mg Tablet 2 tab PO BID Qty: 0 0RF pantoprazole 40 mg Tablet,Delayed Release (Dr/Ec) 40 mg PO BID Qty: 0 0RF ascorbic acid (vitamin C) 500 mg Tablet 500 mg PO 1000 Qty: 0 0RF oxycodone 5 mg Tablet 10 mg PO Q4H PRN PRN (Reason: pain 6-10) 3 Days Qty: 36 0RF polysaccharide iron complex [Ferrex 150] 150 mg iron Capsule 150 mg PO DAILY Qty: 0 0RF gabapentin 100 mg Capsule 100 mg PO TIDCM Qty: 0 0RF enoxaparin 40 mg/0.4 mL Syringe 40 mg subcut DAILY Qty: 0 0RF Caffeine [No Doz] 300 mg PO DINNER Qty: 0 0RF Caffeine [No Doz] 300 mg PO LUNCH Qty: 0 0RF tamsulosin 0.4 mg Capsule 0.4 mg PO DAILY@1730 Qty: 0 0RF metoprolol tartrate 25 mg Tablet 12.5 mg PO BID Qty: 0 0RF Biotene Dry Mouth Oral Rinse Mouthwash 15 ml mucous membrane 5X/DAY PRN (Reason: Dry Mouth) Qty: 0 0RF melatonin 10 mg Tablet, Sublingual 10 mg PO QHS Qty: 0 0RF Continued multivit with min-folic acid [Adult One Daily Multivitamin] 0.4 mg tablet 1 tab PO DAILY bupropion HCl [Wellbutrin XL] 300 mg tablet extended release 24 hr 300 mg PO QAM metformin 500 mg tablet 1,000 mg PO DAILY fluticasone propionate 1 SPRAY spray,suspension 1 spray NASAL DAILY loratadine 10 MG capsule 10 mg PO DAILY levothyroxine [Synthroid] 175 mcg tablet 150 mcg PO DAILY metformin 500 mg Tablet 500 mg PO QHS valacyclovir 500 mg tablet 500 mg PO BID acetaminophen 500 mg Tablet 1,000 mg PO Q8 Qty: 0 0RF calcium carbonate 200 mg calcium (500 mg) Tablet,Chewable 500 mg PO TIDCM Qty: 0 0RF cyclobenzaprine 5 mg Tablet 5 mg PO TID PRN PRN (Reason: Muscle Spasm) Qty: 0 0RF ergocalciferol (vitamin D2) [Vitamin D2] 1,250 mcg (50,000 unit) Capsule 1,250 mcg PO Q7D Qty: 7 0RF Discontinued omeprazole 40 mg capsule,delayed release(DR/EC) 40 mg PO QHS estradiol 0.01 % (0.1 mg/gram) cream See Rx Instructions vaginal .COMPLEX Qty: 42.5 2RF Rx Instructions: small amount as directed vaginal every other day X 4 weeks then twice a week; mometasone 0.1 % ointment 1 applic topical .COMPLEX Qty: 15 2RF Rx Instructions: 1 applic topical small amount as directed and rub in daily X 1 week prn with symptoms lisinopril 5 mg tablet 5 mg PO DAILY enoxaparin 40 mg/0.4 mL Syringe 40 mg subcut DAILY@0600 28 Days Qty: 4 0RF sennosides-docusate sodium [Stool Softener-Stimulant Laxat] 8.6-50 mg Tablet 2 tab PO BID PRN PRN (Reason: Constipation) Qty: 0 0RF oxycodone 5 mg Tablet 10 mg PO Q6H PRN (Reason: pain (scale score 6-10)) 3 Days Qty: 12 0RF gabapentin [Neurontin] 100 mg capsule 100 mg PO TID C Complex 1,000 mg tablet extended release 1,000 mg PO DAILY tamsulosin [Flomax] 0.4 mg capsule 0.4 mg PO DAILY metoprolol tartrate [Lopressor] 50 mg tablet 25 mg PO BID melatonin 10 mg tablet 10 mg PO QHS polysaccharide iron complex [Ferrex 150] 150 mg iron capsule 150 mg PO DAILY Referrals / Follow Up: Summer Worrell DO [Primary Care Provider] - Alireza Lang DO [Med Staff - Active Staff] - Within 1 Month (L hip fracture, repair 03/08. shaylee out 03/25) Disposition Disposition (needs filled in before D/C Order can be placed): NonSkilled NH/Intermed Care (1) Closed fracture of left hip Qualifiers: Encounter type: initial encounter Qualified Code(s): S72.002A - Fracture of unspecified part of neck of left femur, initial encounter for closed fracture 03/26/248 <Electronically signed by Moise Glez MD> Cosigner Signature (if applicable): CC: Dr. Summer Worrell DO ~ [facility] Work Phone: [phone] 963-546505-03-2024 Discharge summary Author Moise [facility] March 26, 2024 2:27pm Note Date/Time March 26, 2024 2:20pm [facility] Medical Records Department [address] [place] [id number] Discharge Summary 03/26/24 1418 MR#: [id number] Acct: [id number] Name: SALONI HICKS Rep #: [id number] : 1950 74 From: Moise Glez MD PCP: Dr. Summer Worrell DO Status:ADM IN Location: [facility] TCU03-1 Providers Date of Admission: 03/11/24 Primary Care Physician: Dr. Summer Worrell, DO Consultations 03/17/24 17:21 Consult: Gastroenterology Routine Consulting Provider: [facility] Reason for Consult: Anemia, +stool guaiac. EMERGENT Consult: No MD Notified: Yes Date Notified: 03/18/24 Time Notified: 11:07 Method of Notification: Text Reason For Visit: LEFT HIP FRACTURE STATUS POST FALL Diagnosis Discharge Diagnosis (1) Closed fracture of left hip: Status: Resolved Code(s): S72.002A - Fracture of unspecified part of neck of left femur, initial encounterfor closed fracture Qualifiers: Encounter type: initial encounter Qualified Code(s): S72.002A - Fracture of unspecified part of neck of left femur, initial encounter for closedfracture Plan 74 year old female with below past medical history hospitalized for left hip fracture, underwent left femur IM nail fixation 03/08/[address] Lang, admitted to TCU with debility, here for rehabilitation, strengthening, prior to discharge home alone. * Debility - PT/OT. * Cognition - ST. * Pain - Tylenol 1000mg q8, Oxycodone 10mg q4 prn pain (6-10). * Bowel - senna/colace 2 tablets bid, Magnesium citrate 300ml daily prn. * Adult immunization - Administer pneumonia vaccine, covid vaccine, flu vaccine as appropriate. * DVT prophylaxis - Lovenox 40mg sc daily. * HSV - Acyclovir 400mg tid. * Depression - Bupropion XL 300mg qam. * GERD - Pantoprazole 40mg qhs, TUMS 500mg po tidcm. * Muscle spasm - Flexeril 5mg tid prn. * Vitamin D deficiency - Vitamin D 1.25mg qweek. * Allergic rhinitis - Flonase 1 spray nasal daily, Loratadine 10mg daily. * Hypothyroidism - Levothyroxine 150mcg daily. * Hypertension - Lisinopril 5mg daily. * Diabetes Mellitus II - Metformin 1000mg qam, 500mg qpm. * Nutrition - MVI 1 tablet daily. * Dry mouth - Biotene 5x/day prn. Medications at Discharge Home Medications bupropion HCl 300 mg 24 hr tablet, extended release (Wellbutrin XL) 300 mg PO QAM depression 11/20/18 multivitamin with minerals-folic acid 0.4 mg tablet (Adult One Daily Multivitamin) 1 tab PO DAILY vitamin 11/20/18 fluticasone propionate 50 mcg/actuation nasal spray,suspension 1 spray NASAL DAILY allergies 06/22/20 loratadine 10 mg capsule 10 mg PO DAILY allergie 06/22/20 metformin 500 mg tablet 1,000 mg PO DAILY diabetes 08/04/20 levothyroxine 175 mcg tablet (Synthroid) 150 mcg PO DAILY hypothyroid 01/30/22 metformin 500 mg tablet 500 mg PO QHS diabetes 06/28/22 valacyclovir 500 mg tablet 500 mg PO BID antibiotic 03/07/24 acetaminophen 500 mg tablet 1,000 mg (2 x 500 mg) PO Q8 pain #0 tabs 03/11/24 calcium carbonate 500 mg (2.5 x 200 mg calcium (500 mg)) PO TIDCM acid reflux/indigestion #0 tabs 03/11/24 cyclobenzaprine 5 mg tablet 5 mg PO TID PRN PRN Muscle Spasm #0 tabs 03/11/24 ergocalciferol (vitamin D2) 1,250 mcg (50,000 unit) capsule (Vitamin D2) 1,250 mcg PO Q7D supplement #7 caps 03/11/24 Caffeine [No Doz] 300 mg PO DINNER ##0 03/26/24 Caffeine [No Doz] 300 mg PO LUNCH ##0 03/26/24 ascorbic acid (vitamin C) 500 mg tablet 500 mg PO 1000 #0 tabs 03/26/24 enoxaparin 40 mg/0.4 mL subcutaneous syringe 40 mg (0.4 mL) subcut DAILY #0 mL 03/26/24 gabapentin 100 mg capsule 100 mg PO TIDCM #0 caps 03/26/24 melatonin 10 mg sublingual tablet 10 mg PO QHS #0 tabs 03/26/24 metoprolol tartrate 25 mg tablet 12.5 mg (1/2 x 25 mg) PO BID #0 tabs 03/26/24 oxycodone 5 mg tablet 10 mg (2 x 5 mg) PO Q4H PRN PRN pain 6-10 3 days #36 tabs 03/26/24 pantoprazole 40 mg tablet,delayed release 40 mg PO BID #0 tabs 03/26/24 polysaccharide iron complex 150 mg iron capsule (Ferrex) 150 mg PO DAILY #0 caps03/26/24 saliva substitute combo no.9 (Biotene Dry Mouth Oral Rinse mouthwash) 15 ml mucous membrane 5X/DAY PRN Dry Mouth #0 mL 03/26/24 sennosides 8.6 mg-docusate sodium 50 mg tablet (Stool Softener-Stimulant Laxative) 2 tab PO BID #0 tabs 03/26/24 tamsulosin 0.4 mg capsule 0.4 mg PO DAILY@1730 #0 caps 03/26/24 Hospital Course Operations None Procedures EGD Summary of Care Provided Minutes Spent on Discharge: 35 Hospital Course: 74 year old female with below past medical history hospitalized for left hip fracture, underwent left femur IM nail fixation 03/08/[address] Lang, admitted to TCU with debility, here for rehabilitation, strengthening, prior to discharge home alone. 03/19/2024 Dr. Wells EGD. Impressions : - Normal esophagus. - Red blood in the gastric fundus. - Oozing gastric ulcers with pigmented material. Treated with a heater probe. - Acute gastritis. Biopsied. - Normal second portion of the duodenum. Recommendations : - Return patient to hospital waite for ongoing care. - Resume previous diet. - Use Protonix (pantoprazole) 40 mg PO BID. - Continue present medications. Discharge to SNF 03/29/2024, intermediate, part b therapies. Physical Exam Const alert General Appearance: cooperative HEENT normocephalic Eyes PERRL and EOMs intact bilaterally Neck supple, no JVD and no carotid bruits Resp normal respiratory effort, normal air movement and clear to auscultation bilaterally Cardio regular rate and regular rhythm GI normal to inspection, nondistended, normoactive bowel sounds, non-tender and non-distended Extremity normal capillary refill General Extremity: Negative for edema Skin no rashes or lesions noted General Skin Exam: no breakdown Psych affect normal Appearance: appropriate Weight / BMI Weight Weight: 61.19 kg Body Mass Index (BMI) 21.1 ABG / Lab / Microbiology Data 03/26/24 05:15 03/26/24 05:15 Laboratory: Laboratory Results - last 24 hr 03/26/24 05:15: WBC 8.9, RBC 3.36 L, Hgb 11.0 L, Hct 34.5 L, MCV 102.7 H, MCH 32.7 H, MCHC 31.9 L, RDW Std Deviation 62.0 H, RDW [place] 16.5 H, Plt Count 368, MPV 8.7, Immature Gran % (Auto) 0.300, Neut % (Auto) 74.4 H, Lymph % (Auto) 13.4 L, [place] % (Auto) 7.1, Eos % (Auto) 4.3, Baso % (Auto) 0.5, Absolute Neuts (auto) 6.6, Absolute Lymphs (auto) 1.19, Nucleated RBC % 0, Sodium 138, Potassium 3.7, Chloride 105, Carbon Dioxide 28.0, Anion Gap 5, BUN 24 H, Creatinine 1.08 H, Estim Creat Clear Calc 44.15, Est GFR (MDRD) Af Amer 64, Est GFR (MDRD) Non-Af 53 L, BUN/Creatinine Ratio 22.2 H, Glucose 142 H, Calcium 9.0 03/26/24 05:59: POC Glucose 133 H Microbiology: Microbiology 03/17/24 10:00 Stool Stool Occult Blood (LOTTIE) - Final Occult Blood Positive D/C Instructions Discharge Diet: No restrictions Discharge Activity: Return to Normal Activity, May Shower and Use Walker Weight Bearing Status: Weight bearing as tolerated Call your doctor if you observe: Fever of 101 or Higher, Inability to urinate, Inability to have a bowel movement, Shortness of breath, Dizziness, Fainting spells, Swelling in the ankles, Chest pain and Uncontrolled pain Additional Instructions: Discharge to SNF 03/29/2024, intermediate, part b therapies. Please Follow Up With: Alireza Lang DO When: As scheduled. Meaningful Use Info Meaningful Use Meaningful Use Diagnoses (Choose all that apply): None applicable Ischemic Stroke Statin Dosing Therapy Reference: STATIN DOSE THERAPY REFERENCE: * Patients > 75 years receive moderate or high dose statin therapy. * Patients 75 years or YOUNGER should receive HIGH intensity statin dose unless contraindicated. You will be required to document reason for non-treatment if statin daily dose does not meet guidelines. HIGH DOSE STATIN THERAPY DAILY Atorvastatin > than or = to 40 mg Rosuvastatin > than or = to 20 mg Amlodipine + Atorvastatin > than or = to 2.5/40 mg Ezetimibe + Simvastatin 10/80 mg Simvastatin 80mg Discharge Plan Admission Admit Date/Time: 04/18/24 13:43 Primary Reason for Your Visit: Debility. Attending Provider: Moise Glez Chi Primary Care Provider: Summer Worrell Instructions Additional Instructions / Restrictions: Discharge to SNF 03/29/2024, intermediate, part b therapies. Discharge Orders/Prescriptions Prescriptions: New sennosides-docusate sodium [Stool Softener-Stimulant Laxat] 8.6-50 mg Tablet 2 tab PO BID Qty: 0 0RF pantoprazole 40 mg Tablet,Delayed Release (Dr/Ec) 40 mg PO BID Qty: 0 0RF ascorbic acid (vitamin C) 500 mg Tablet 500 mg PO 1000 Qty: 0 0RF oxycodone 5 mg Tablet 10 mg PO Q4H PRN PRN (Reason: pain 6-10) 3 Days Qty: 36 0RF polysaccharide iron complex [Ferrex 150] 150 mg iron Capsule 150 mg PO DAILY Qty: 0 0RF gabapentin 100 mg Capsule 100 mg PO TIDCM Qty: 0 0RF enoxaparin 40 mg/0.4 mL Syringe 40 mg subcut DAILY Qty: 0 0RF Caffeine [No Doz] 300 mg PO DINNER Qty: 0 0RF Caffeine [No Doz] 300 mg PO LUNCH Qty: 0 0RF tamsulosin 0.4 mg Capsule 0.4 mg PO DAILY@1730 Qty: 0 0RF metoprolol tartrate 25 mg Tablet 12.5 mg PO BID Qty: 0 0RF Biotene Dry Mouth Oral Rinse Mouthwash 15 ml mucous membrane 5X/DAY PRN (Reason: Dry Mouth) Qty: 0 0RF melatonin 10 mg Tablet, Sublingual 10 mg PO QHS Qty: 0 0RF Continued multivit with min-folic acid [Adult One Daily Multivitamin] 0.4 mg tablet 1 tab PO DAILY bupropion HCl [Wellbutrin XL] 300 mg tablet extended release 24 hr 300 mg PO QAM metformin 500 mg tablet 1,000 mg PO DAILY fluticasone propionate 1 SPRAY spray,suspension 1 spray NASAL DAILY loratadine 10 MG capsule 10 mg PO DAILY levothyroxine [Synthroid] 175 mcg tablet 150 mcg PO DAILY metformin 500 mg Tablet 500 mg PO QHS valacyclovir 500 mg tablet 500 mg PO BID acetaminophen 500 mg Tablet 1,000 mg PO Q8 Qty: 0 0RF calcium carbonate 200 mg calcium (500 mg) Tablet,Chewable 500 mg PO TIDCM Qty: 0 0RF cyclobenzaprine 5 mg Tablet 5 mg PO TID PRN PRN (Reason: Muscle Spasm) Qty: 0 0RF ergocalciferol (vitamin D2) [Vitamin D2] 1,250 mcg (50,000 unit) Capsule 1,250 mcg PO Q7D Qty: 7 0RF Discontinued omeprazole 40 mg capsule,delayed release(DR/EC) 40 mg PO QHS estradiol 0.01 % (0.1 mg/gram) cream See Rx Instructions vaginal .COMPLEX Qty: 42.5 2RF Rx Instructions: small amount as directed vaginal every other day X 4 weeks then twice a week; mometasone 0.1 % ointment 1 applic topical .COMPLEX Qty: 15 2RF Rx Instructions: 1 applic topical small amount as directed and rub in daily X 1 week prn with symptoms lisinopril 5 mg tablet 5 mg PO DAILY enoxaparin 40 mg/0.4 mL Syringe 40 mg subcut DAILY@0600 28 Days Qty: 4 0RF sennosides-docusate sodium [Stool Softener-Stimulant Laxat] 8.6-50 mg Tablet 2 tab PO BID PRN PRN (Reason: Constipation) Qty: 0 0RF oxycodone 5 mg Tablet 10 mg PO Q6H PRN (Reason: pain (scale score 6-10)) 3 Days Qty: 12 0RF gabapentin [Neurontin] 100 mg capsule 100 mg PO TID C Complex 1,000 mg tablet extended release 1,000 mg PO DAILY tamsulosin [Flomax] 0.4 mg capsule 0.4 mg PO DAILY metoprolol tartrate [Lopressor] 50 mg tablet 25 mg PO BID melatonin 10 mg tablet 10 mg PO QHS polysaccharide iron complex [Ferrex 150] 150 mg iron capsule 150 mg PO DAILY Referrals / Follow Up: Summer Worrell DO [Primary Care Provider] - Alireza Lang DO [Med Staff - Active Staff] - Within 1 Month (L hip fracture, repair 03/08. shaylee out 03/25) Disposition Disposition (needs filled in before D/C Order can be placed): NonSkilled NH/Intermed Care 03/26/24 5765 <Electronically signed by Moise Glez MD> Cosigner Signature (if applicable): CC: Dr. Summer Worrell DO; Dr. Moise Glez MD~ Signed [facility] Work Phone: 1(840) 855-385205-02-2024 Progress note Author Alireza Lang [facility] March 25, 2024 11:42am Note Date/Time March 25, 2024 11:42a m [facility] Medical Records Department [address] [place] [address] Progress Note - Orthopedic 03/25/24 1139 MR#: [id number] Acct: [id number] Name: SALONI HICKS Rep #: [id number] : 1950 74 From: Alireza odom DO PCP: Dr. Summer Worrell DO Status:ADM IN Location: [facility] TCU-1 Subjective Subjective Patient seen and examined. Reports pain in her left thigh. She states she has good days and bad days as well as some painful nights. She has been ambulating with a walker with the assistance of physical therapy and nursing. She denies any fevers, chills, nausea vomiting, chest pain or shortness of breath. Objective Data Objective Data Vital Signs: Vital Signs Temp Pulse Resp BP Pulse Ox O2 Del Method 98.3 F 91 18 100/46 L 92 Room Air 03/24/24 12:51 03/25/24 08:40 03/25/24 08:37 03/25/24 08:37 03/25/24 08:37 03/25/24 08:37 Oxygen Delivery Method Room Air Weight: 134 lb 14.4 oz Body Mass Index (BMI) 21.1 Intake & Output: Intake and Output for Last 24 Hours 03/23/24 03/24/24 03/25/24 23:59 23:59 23:59 Intake Total 825 / 825 500 / 500 240 / 240 Output Total 1650 / 1650 2900 / 2900 350 / 350 Balance -825 / -825 -2400 / -2400 -110 / -110 Lab / Micro Data 03/22/24 05:20 03/19/24 05:00 Labs: Laboratory Results - last 24 hr 03/25/24 06:14: POC Glucose 131 H Micro: Microbiology 03/17/24 10:00 Stool Stool Occult Blood (LOTTIE) - Final Occult Blood Positive Radiography Diagnostic Testing: Radiology Impression Femur X-Ray 03/24/24 08:53 IMPRESSION: Osteopenia with ORIF of left femur without complications at this time. Electronically Signed: Miah Huang MD at 15:19 EDT Reading Location ID and State: [id number] [facility] , Service support , Physical Exam Narrative General - A&Ox3, NAD. VSS/AF Left lower extremity -well-healing lateral hip/thigh incisions. Wound edges well-approximated shaylee, no erythema or drainage. SILT Sural, Saphenous, SPN,DPN, Tibial N. distributions. DP, PT 2+. BCR. DF, PF, EHL 03/28. No calf TTP. Assessment & Plan Assessment/Plan (1) Closed fracture of left hip: QUALIFIERS: Encounter type: initial encounter Qualified Code(s): S72.002A - Fracture of unspecified part of neck of left femur, initial encounterfor closed fracture PLAN: 2.5 weeks status post left femur CMN -Continue to mobilize with physical therapy. X-rays reviewed from 03/24/2024 demonstrated appropriate alignment without evidence of hardware migration or screw cut out. -Nursing instructed to remove shaylee -Continue anticoagulant until 4 weeks postoperative. -Plan to follow-up with me as an outpatient 6 weeks following surgery with x- rays upon arrival. 03/25/24 1142 <Electronically signed by Alireza Lang DO> Cosigner Signature (if applicable): CC: ~ Signed [facility] Work Phone: 1(303) 411-336704-26-2024 Procedure [facility] 03-19-2024 Procedure [facility]04-25-2024 Consult note Author Jared Friend [facility] March 18, 2024 6:17pm Note Date/Time March 18, 2024 6:1 7pm [facility] Medical Records Department [address] [place] [address] Consultation - GI 03/18/24 1814 MR#: [id number] Acct: [id number] Name: SALONI HICKS Rep #: [id number] : 1950 74 From: Jared Friend DO PCP: Dr. Summer Worrell, DO Status:ADM IN Location: [facility] HPI Consult Data Date of Consult: 03/18/24 HPI Narrative Reason for Consultation: Anemia HPI Narrative: SALONI HICKS, is a 74 F with a past medical history of essential hypertension,hypothyroidism; with history of goiter, DM-2; of unknown control on Metformin, peripheral neuropathy; with chronically poor balance and increasingly frequent falls, history of tobacco abuse, history of HSV, history of TIA (2011), RA, history of recurrent UTI's, history of atrophic vaginitis, history of renal calculi; with subsequent stent and lithotripsy, depression, GERD and chronic back pain who presents to [facility] ER complaining of Left hip pain after fall. Ms. Hicks reports her symptoms began approximately one hour prior to arrival when she lost her balance and fell while she was walking on a sidewalk while trying to work in her yard causing her to land on her Left hip and side with subsequent severe pain and inability to ambulate, stand up or even bear weight on her Left leg. She denies LOC or injuring her head with the fall but she does admit falling off the narrow steps of the porch of her home ~4 weeks ago. She also denies related fever, chills, nausea, vomiting, diarrhea, constipation, chest pain, SOB, recent medication changes, recent illness, history of CAD or chest pain with activity. In the ER her X-rays were positive for Left hip fracture. She underwent fracture repair and was sent to TCU prior to her going home. Since being in theTCU her hemoglobin dropped down to 7.4 from 13. She was given transfusion of packed red blood cells and her stool was checked for blood and there were positive. She is on heparin for DVT prophylaxis. I was consulted due to suspectedGI bleed. [facility] Medical History (Updated 03/11/24 @ 22:[address] Moise Glez MD) Alcohol use Anxiety and depression Arthritis Back pain due to injury Back problem Carpal tunnel syndrome Cataracts, bilateral Easy bruising GERD (gastroesophageal reflux disease) Goiter H/O: pneumonia History of stress test HSV (herpes simplex virus) infection Hypertension Hypothyroidism Kidney stones Left renal stone Leg cramps Neuropathy Recurrent UTI Rheumatoid arthritis Seasonal allergies Smoker Stress incontinence Stroke/cerebrovascular accident Syncope TIA (transient ischemic attack) Type 2 diabetes mellitus Vision problems Home Medications bupropion HCl 300 mg 24 hr tablet, extended release (Wellbutrin XL) 300 mg PO QAM depression 11/20/18 [History Last Taken 07/21/20 05:15] multivitamin with minerals-folic acid 0.4 mg tablet (Adult One Daily Multivitamin) 1 tab PO DAILY vitamin 11/20/18 [History Last Taken Unknown] fluticasone propionate 50 mcg/actuation nasal spray,suspension 1 spray NASAL DAILY allergies 06/22/20 [History Last Taken Unknown] loratadine 10 mg capsule 10 mg PO DAILY allergie 06/22/20 [History Last Taken Unknown] metformin 500 mg tablet 1,000 mg PO DAILY diabetes 08/04/20 [History Last Taken Unknown] omeprazole 40 mg capsule,delayed release 40 mg PO QHS acid reflux 10/13/20 [History Last Taken 02/04/22] levothyroxine 175 mcg tablet (Synthroid) 150 mcg PO DAILY hypothyroid 01/30/22 [History Last Taken 07/04/22] metformin 500 mg tablet 500 mg PO QHS diabetes 06/28/22 [History Last Taken Unknown] estradiol 0.01% (0.1 mg/gram) vaginal cream See Rx Instructions vaginal .COMPLEXvaginitis #42.5 grams 07/24/23 [Rx Last Taken Unknown] mometasone 0.1 % topical ointment 1 applic topical .COMPLEX ? #15 grams 09/03/23[Rx Last Taken Unknown] lisinopril 5 mg tablet 5 mg PO DAILY BP 03/07/24 [History Last Taken Unknown] valacyclovir 500 mg tablet 500 mg PO BID antibiotic 03/07/24 [History Last Taken Unknown] acetaminophen 500 mg tablet 1,000 mg (2 x 500 mg) PO Q8 pain #0 tabs 03/11/24 [Rx Last Taken Unknown] calcium carbonate 500 mg (2.5 x 200 mg calcium (500 mg)) PO TIDCM acid reflux/indigestion #0 tabs 03/11/24 [Rx Last Taken Unknown] cyclobenzaprine 5 mg tablet 5 mg PO TID PRN PRN Muscle Spasm #0 tabs 03/11/24 [Rx Last Taken Unknown] enoxaparin 40 mg/0.4 mL subcutaneous syringe 40 mg (0.4 mL) subcut DAILY@0600 blood thinner/post surgery 28 days #4 mL 03/11/24 [Rx Last Taken Unknown] ergocalciferol (vitamin D2) 1,250 mcg (50,000 unit) capsule (Vitamin D2) 1,250 mcg PO Q7D supplement #7 caps 03/11/24 [Rx Last Taken Unknown] oxycodone 5 mg tablet 10 mg (2 x 5 mg) PO Q6H PRN pain (scale score 6-10) 3 days#12 tabs 03/11/24 [Rx Last Taken Unknown] sennosides 8.6 mg-docusate sodium 50 mg tablet (Stool Softener-Stimulant Laxative) 2 tab PO BID PRN PRN Constipation #0 tabs 03/11/24 [Rx Last Taken Unknown] Allergy/AdvReac Type Severity Reaction Status Date / Time No Known Allergies Allergy Verified 03/08/24 12:38 Family History Mother Cancer Father Diabetes Heart disease Sister Diabetes Surgical History History of carpal tunnel surgery History of colonoscopy History of foot surgery History of lithotripsy Social History (Updated 03/11/24 @ 22:[address] Moise Glez MD) household members: none housing: house number of children: 0 current occupational status: retired Smoking Status: Current every day smoker tobacco type: cigarettes alcohol intake: current alcohol intake frequency: holidays/special occasions only substance use type: does not use seatbelt use: always do you feel safe at home: Yes additional social history: ROS Constitutional Constitutional: Denies chills, fever(s) or weight gain ENT HEENT: Denies headache(s), nasal congestion or nasal discharge Cardiovascular Cardiovascular: Denies chest pain or palpitations Respiratory/Chest Respiratory/Chest: Denies cough, excessive phlegm production or shortness of breath with exertion Gastrointestinal Gastrointestinal: Denies abdominal pain, nausea or vomiting Genitourinary Genitourinary: Denies dysuria Musculoskeletal Musculoskeletal: Reports other Details: Left hip pain. ; Denies joint pain or joint swelling Integumentary Integumentary: Denies rash or wounds Neurologic Neurologic: Denies focal weakness, numbness or tingling Psychiatric Psychiatric: Denies anxiety, auditory hallucinations, depression, homicidal ideation or suicidal ideation Physical Exam Const alert General Appearance: cooperative HEENT normocephalic Eyes PERRL and EOMs intact bilaterally Neck supple, no JVD and no carotid bruits Resp normal respiratory effort, normal air movement and clear to auscultation bilaterally Cardio regular rate and regular rhythm GI normal to inspection, nondistended, normoactive bowel sounds, non-tender and non-distended Extremity normal capillary refill General Extremity: Negative for edema Skin no rashes or lesions noted General Skin Exam: no breakdown Psych affect normal Appearance: appropriate Lab / Micro Data 03/17/24 05:15 03/12/24 04:57 Labs: Laboratory Results - last 24 hr 03/18/24 05:55: POC Glucose 129 H Assessment & Plan Assessment/Plan (1) Debility: (2) Fall: QUALIFIERS: Encounter type: initial encounter Qualified Code(s): W19.XXXA - Unspecified fall, initial encounter (3) Closed fracture of left hip: QUALIFIERS: Encounter type: initial encounter Qualified Code(s): S72.002A - Fracture of unspecified part of neck of left femur, initial encounterfor closed fracture (4) Diabetes mellitus type 2 in nonobese: (5) Depression: (6) Allergic rhinitis: (7) GERD (gastroesophageal reflux disease): (8) Hypothyroidism: (9) Atrophic vaginitis: (10) Essential (primary) hypertension: (11) HSV (herpes simplex virus) infection: PLAN: Plan 74 year old female with below past medical history hospitalized for left hip fracture, underwent left femur IM nail fixation 03/08/[address] Lang, admitted to TCU with debility, here for rehabilitation, strengthening, prior to discharge home alone. She currently has presumed blood loss anemia possibly secondary to GI blood loss. Recommend upper endoscopy to evaluate her upper GI tract due to her recent surgery. She was explained alternatives, risk, benefitsincluding not withstanding bleeding, infection, sepsis, perforation, need for emergent surgery and . She will have an ASA of 3. Charges/Coding Visit Charges Inpatient E&M: 44910 SNF Init L2 03/18/24 1816 <Electronically signed by Jared Wells DO> Cosigner Signature (if applicable): CC: Dr. Summer Worrell, DO~ Signed [facility] Work Phone: [phone]) 630-949204-24-2024 History and physical note Author Moise Glez [facility] March 17, 2024 7:43am Note Date/Time March 11, 2024 10: 09pm [facility] Health System Medical Records Department [address] [place] [address] History & Physical Exam 03/11/24 2200 MR#: [id number] Acct: [id number] Name: SALONI HICKS Rep #: [id number] : 1950 74 From: Moise Glez MD PCP: Dr. Summer Worrell DO Status:ADM IN Location: [place] [address] HPI - General General Date of Admission: 03/11/24 Date of Service: 03/11/24 Chief Complaint: Here for rehabilitation. HPI Narrative 03/07/2024 SALONI HICKS, is a 74 Female who presents to [facility] ED with lower extremity injury. Left hip pain, Left leg pain after fall. Walking sidewalk, tripped/slipped, fell. Unable to stand or bear weight afterwards. No LOC, no head injury. Morphine, Zofran given. X-ray showed left hip fracture. 03/07/2024 Admit [facility]. Prepare for surgery. 03/08/2024 Dr. Lang performed left femur IM nail fixation. 03/09/2024 WBAT. Ancef given perioperatively. Lovenox for DVT prophylaxis. X-ray left ankle for left ankle pain negative. 03/10/2024 Left hip, Left ankle pain, treated with Oxycodone, Toradol. Add Vitamin D for Vitamin D deficiency. 03/11/2024 Feeling better, left ankle pain decreased. 03/11/2024 Admit to TCU with debility, here for rehabilitation, strengthening, prior to discharge home alone. [facility] Medical History (Updated 03/11/24 @ 22:[address] Moise Glez MD) Alcohol use Anxiety and depression Arthritis Back pain due to injury Back problem Carpal tunnel syndrome Cataracts, bilateral Easy bruising GERD (gastroesophageal reflux disease) Goiter H/O: pneumonia History of stress test HSV (herpes simplex virus) infection Hypertension Hypothyroidism Kidney stones Left renal stone Leg cramps Neuropathy Recurrent UTI Rheumatoid arthritis Seasonal allergies Smoker Stress incontinence Stroke/cerebrovascular accident Syncope TIA (transient ischemic attack) Type 2 diabetes mellitus Vision problems Home Medications bupropion HCl 300 mg 24 hr tablet, extended release (Wellbutrin XL) 300 mg PO QAM depression 11/20/18 [History Last Taken 07/21/20 05:15] multivitamin with minerals-folic acid 0.4 mg tablet (Adult One Daily Multivitamin) 1 tab PO DAILY vitamin 11/20/18 [History Last Taken Unknown] fluticasone propionate 50 mcg/actuation nasal spray,suspension 1 spray NASAL DAILY allergies 06/22/20 [History Last Taken Unknown] loratadine 10 mg capsule 10 mg PO DAILY allergie 06/22/20 [History Last Taken Unknown] metformin 500 mg tablet 1,000 mg PO DAILY diabetes 08/04/20 [History Last Taken Unknown] omeprazole 40 mg capsule,delayed release 40 mg PO QHS acid reflux 10/13/20 [History Last Taken 02/04/22] levothyroxine 175 mcg tablet (Synthroid) 150 mcg PO DAILY hypothyroid 01/30/22 [History Last Taken 07/04/22] metformin 500 mg tablet 500 mg PO QHS diabetes 06/28/22 [History Last Taken Unknown] estradiol 0.01% (0.1 mg/gram) vaginal cream See Rx Instructions vaginal .COMPLEXvaginitis #42.5 grams 07/24/23 [Rx Last Taken Unknown] mometasone 0.1 % topical ointment 1 applic topical .COMPLEX ? #15 grams 09/03/23[Rx Last Taken Unknown] lisinopril 5 mg tablet 5 mg PO DAILY BP 03/07/24 [History Last Taken Unknown] valacyclovir 500 mg tablet 500 mg PO BID antibiotic 03/07/24 [History Last Taken Unknown] acetaminophen 500 mg tablet 1,000 mg (2 x 500 mg) PO Q8 pain #0 tabs 03/11/24 [Rx Last Taken Unknown] calcium carbonate 500 mg (2.5 x 200 mg calcium (500 mg)) PO TIDCM acid reflux/indigestion #0 tabs 03/11/24 [Rx Last Taken Unknown] cyclobenzaprine 5 mg tablet 5 mg PO TID PRN PRN Muscle Spasm #0 tabs 03/11/24 [Rx Last Taken Unknown] enoxaparin 40 mg/0.4 mL subcutaneous syringe 40 mg (0.4 mL) subcut DAILY@0600 blood thinner/post surgery 28 days #4 mL 03/11/24 [Rx Last Taken Unknown] ergocalciferol (vitamin D2) 1,250 mcg (50,000 unit) capsule (Vitamin D2) 1,250 mcg PO Q7D supplement #7 caps 03/11/24 [Rx Last Taken Unknown] oxycodone 5 mg tablet 10 mg (2 x 5 mg) PO Q6H PRN pain (scale score 6-10) 3 days#12 tabs 03/11/24 [Rx Last Taken Unknown] sennosides 8.6 mg-docusate sodium 50 mg tablet (Stool Softener-Stimulant Laxative) 2 tab PO BID PRN PRN Constipation #0 tabs 03/11/24 [Rx Last Taken Unknown] Allergy/AdvReac Type Severity Reaction Status Date / Time No Known Allergies Allergy Verified 03/08/24 12:38 Family History Mother Cancer Father Diabetes Heart disease Sister Diabetes Surgical History History of carpal tunnel surgery History of colonoscopy History of foot surgery History of lithotripsy Social History (Updated 03/11/24 @ 22:[address] Moise Glez MD) household members: none housing: house number of children: 0 current occupational status: retired Smoking Status: Current every day smoker tobacco type: cigarettes alcohol intake: current alcohol intake frequency: holidays/special occasions only substance use type: does not use seatbelt use: always do you feel safe at home: Yes additional social history: ROS Constitutional Constitutional: Denies chills, fever(s) or weight gain ENT HEENT: Denies headache(s), nasal congestion or nasal discharge Cardiovascular Cardiovascular: Denies chest pain or palpitations Respiratory/Chest Respiratory/Chest: Denies cough, excessive phlegm production or shortness of breath with exertion Gastrointestinal Gastrointestinal: Denies abdominal pain, nausea or vomiting Genitourinary Genitourinary: Denies dysuria Musculoskeletal Musculoskeletal: Reports other Details: Left hip pain. ; Denies joint pain or joint swelling Integumentary Integumentary: Denies rash or wounds Neurologic Neurologic: Denies focal weakness, numbness or tingling Psychiatric Psychiatric: Denies anxiety, auditory hallucinations, depression, homicidal ideation or suicidal ideation Vital Signs Vital Signs Vital Signs: 03/11/24 13:51 03/11/24 15:30 Temperature 98.1 F Temperature Source Temporal Pulse Rate 104 H 104 H Pulse Rhythm Regular Pulse Strength Normal (2+) Respiratory Rate 18 18 Respiratory Effort Normal Respiratory Depth Normal Respiratory Pattern Normal Blood Pressure 142/58 H Blood Pressure Mean 86 Pulse Ox 91 91 Oxygen Delivery Method Room Air Room Air Weight Weight: 64.92 kg Body Mass Index (BMI) 22.4 Physical Exam Const alert General Appearance: cooperative HEENT normocephalic Eyes PERRL and EOMs intact bilaterally Neck supple, no JVD and no carotid bruits Resp normal respiratory effort, normal air movement and clear to auscultation bilaterally Cardio regular rate and regular rhythm GI normal to inspection, nondistended, normoactive bowel sounds, non-tender and non-distended Extremity normal capillary refill General Extremity: Negative for edema Skin no rashes or lesions noted General Skin Exam: no breakdown Psych affect normal Appearance: appropriate Assessment & Plan Assessment/Plan (1) Debility: (2) Fall: QUALIFIERS: Encounter type: initial encounter Qualified Code(s): W19.XXXA - Unspecified fall, initial encounter (3) Closed fracture of left hip: QUALIFIERS: Encounter type: initial encounter Qualified Code(s): S72.002A - Fracture of unspecified part of neck of left femur, initial encounterfor closed fracture (4) Diabetes mellitus type 2 in nonobese: (5) Depression: (6) Allergic rhinitis: (7) GERD (gastroesophageal reflux disease): (8) Hypothyroidism: (9) Atrophic vaginitis: (10) Essential (primary) hypertension: (11) HSV (herpes simplex virus) infection: PLAN: Plan 74 year old female with below past medical history hospitalized for left hip fracture, underwent left femur IM nail fixation 03/08/[address] Lang, admitted to TCU with debility, here for rehabilitation, strengthening, prior to discharge home alone. * Debility - PT/OT. * Cognition - ST. * Pain - Tylenol 1000mg q8, Oxycodone 10mg q4 prn pain (6-10). * Bowel - senna/colace 2 tablets bid, Magnesium citrate 300ml daily prn. * Adult immunization - Administer pneumonia vaccine, covid vaccine, flu vaccine as appropriate. * DVT prophylaxis - Lovenox 40mg sc daily. * HSV - Acyclovir 400mg tid. * Depression - Bupropion XL 300mg qam. * GERD - Pantoprazole 40mg qhs, TUMS 500mg po tidcm. * Muscle spasm - Flexeril 5mg tid prn. * Vitamin D deficiency - Vitamin D 1.25mg qweek. * Allergic rhinitis - Flonase 1 spray nasal daily, Loratadine 10mg daily. * Hypothyroidism - Levothyroxine 150mcg daily. * Hypertension - Lisinopril 5mg daily. * Diabetes Mellitus II - Metformin 1000mg qam, 500mg qpm. * Nutrition - MVI 1 tablet daily. * Dry mouth - Biotene 5x/day prn. 03/11/242214 <Electronically signed by Moise Glez MD> Cosigner Signature (if applicable): CC: Dr. Summer Worrell DO; Dr. Moise Glez MD~ Signed ADDENDUM by Dr. Moise Glez MD on 03/17/24 at 0726 Addendum FWW: Patient is unsafe to use a cane and requires a walker for ambulation in the home and the community. 03/17/24725<Electronically signed by Moise Glez MD> Cosigner Signature (if applicable): cc: Dr. Summer Worrell DO; Dr. Moise Glez MD ~* Signed ADDENDUM by Dr. Moise Glez MD on 03/17/24 at 0743 Addendum Bilateral lower extremity neuropathy - Gabapentin 100mg tid. 03/17/24 07<Electronically signed by Moise Glez MD> Cosigner Signature (if applicable): cc: Dr. Summer Worrell DO; Dr. Moise Glez MD ~* Signed [facility] Work Phone: 1(343) 359-175104-19-2024 Progress note Author oMise Glez [facility] March 12, 2024 1:26pm Note Date/Time March 12, 2024 12: 53pm [facility] Medical Records Department [address] [place] [address] [place] [address] Progress Note - Pharmacy 03/12/24 1249 MR#: [id number] Acct: [id number] Name: SALONI HICKS Rep #: [id number] : 1950 74 From: Lelo Koch PCP: Dr. Summer Worrell, DO Status:ADM IN Location: [place] [address] Documented by User: Lelo Koch 03/12/24 13:07 TCU RX Drug Regimen Review Subjective/Objective Subjective/Objective: Subjective: TCU Admission. 74 YOF presented to the ER with lower extremity injury. Hospitalized for left hip fracture, underwent left femur IM nail fixation 03/08/[address] Lang. Admitted to TCU with debility for strengthening and rehabilitation. Objective: Allergies No Known Allergies Allergy (Verified 03/08/24 12:38) Current Medications Generic Name Dose Route Start Last Admin Trade Name Freq PRN Reason Stop Dose Admin Acetaminophen 1,000 mg 03/11/24 14:00 03/12/24 06:04 Acetaminophen 500 Mg Tablet PO 1,000 mg Q8 JOLYNN Administration Acyclovir 400 mg 03/11/24 14:00 03/12/24 06:04 Acyclovir 200 Mg Capsule PO 400 mg TID JOLYNN Administration Bupropion HCl 300 mg 03/12/24 10:00 03/12/24 08:40 Bupropion (Xl) 300 Mg Tablet.Xl PO 300 mg QAM JOLYNN Administration Calcium Carbonate 500 mg 03/11/24 17:45 03/12/24 08:39 Calcium Carbonate 500 Mg Tablet PO 500 mg TIDCM JOLYNN Administration Cyclobenzaprine HCl 5 mg 03/11/24 13:56 03/11/24 20:44 Cyclobenzaprine Hcl 5 Mg Tablet PO 5 mg TID PRN PRN Administration Muscle Spasm Enoxaparin Sodium 40 mg 03/12/24 06:00 03/12/24 06:04 Enoxaparin 40 Mg/0.4 Ml Syringe SC 40 mg DAILY@0600 JOLYNN Administration Ergocalciferol 1.25 mg 03/15/24 10:00 Ergocalciferol 1.25 Mg (50, 000 Unit) Capsule PO Q7D JOLYNN Fluticasone Propionate 1 spray 03/12/24 10:00 03/12/24 08:38 Fluticasone 0.05% 1 Parks Nasal.Sry NASAL Not Given DAILY JOLYNN Levothyroxine Sodium 150 mcg 03/12/24 06:00 03/12/24 06:04 Levothyroxine 150 Mcg Tablet PO 150 mcg DAILY@0600 JOLYNN Administration Lisinopril 5 mg 03/12/24 10:00 03/12/24 08:40 Lisinopril 5 Mg Tablet PO 5 mg DAILY JOLYNN Administration Protocol Loratadine 10 mg 03/12/24 10:00 03/12/24 08:39 Loratadine 10 Mg Tablet PO 10 mg DAILY JOLYNN Administration Magnesium Citrate 300 ml 03/11/24 22:16 Magnesium Citrate 300 Ml PO DAILY PRN PRN Constipation Metformin HCl 1,000 mg 03/12/24 08:00 03/12/24 08:39 Metformin Hcl 500 Mg Tablet PO 1,000 mg DAILYCM JOLYNN Administration Metformin HCl 500 mg 03/11/24 17:00 03/11/24 18:17 Metformin Hcl 500 Mg Tablet PO 500 mg DINNER JOLYNN Administration Multivitamins/Minerals 1 tablet 03/12/24 08:00 03/12/24 08:39 Multivitamins,Ther W-Minerals Tablet PO 1 tablet BREAKFAST JOLYNN Administration Oxycodone HCl 10 mg 03/11/24 22:17 03/12/24 10:47 Oxycodone 5 Mg Tablet PO 10 mg Q4H PRN PRN Administration pain 6-10 Pantoprazole Sodium 40 mg 03/11/24 22:00 03/11/24 21:18 Pantoprazole Sodium 40 Mg Tablet PO 40 mg QHS JOLYNN Administration Saliva Substitute 15 ml 03/11/24 17:12 03/12/24 06:34 Saliva Substitute 237 Ml Bottle MUCOUS MEM 15 ml 5X/DAY PRN Administration DRY MOUTH Senna/Docusate Sodium 2 tablet 03/12/24 10:00 03/12/24 08:43 Senna/Docusate Sodium 1 Tablet PO 2 tablet BID JOLYNN Administration Sodium Chloride 10 - 40 ml 03/11/24 14:09 03/12/24 08:46 0.9% Saline Lock 10 Ml Syringe IV 10 ml UD PRN Administration SALINE FLUSH Tuberculin PPD 0.1 ml 03/19/24 10:00 Tuberculin,Purif.Prot.Deriv. 50 Tu/Ml Vial ID 03/19/24 10:01 X1 ONE Problem List (Updated 03/11/24 @ 22:[address] Moise Glez MD) Essential (primary) hypertension (Acute) Hypothyroidism (Acute) GERD (gastroesophageal reflux disease) (Acute) Allergic rhinitis (Acute) Depression (Acute) Diabetes mellitus type 2 in nonobese (Acute) Debility (Acute) Closed fracture of left hip (Acute) Fall (Acute) Atrophic vaginitis (Acute) HSV (herpes simplex virus) infection (Acute) Vital Signs Temp Pulse Resp BP Pulse Ox O2 Del Method 98.1 F 104 H 18 142/58 H 91 Room Air 03/11/24 13:51 03/11/24 15:30 03/11/24 15:30 03/11/24 13:51 03/11/24 15:30 03/11/24 15:30 Oxygen Delivery Method Room Air Weight: 64.92 kg Body Mass Index (BMI) 22.4 Sodium 140 mmol/L (136-145) 03/12/24 04:57 Potassium 3.6 mmol/L (3.5-5.1) 03/12/24 04:57 Chloride 110 mmol/L (98-107) H 03/12/24 04:57 Carbon Dioxide 27.0 mmol/L (21.0-32.0) 03/12/24 04:57 Anion Gap 3 (5-15) L 03/12/24 04:57 BUN 25 mg/dL (7-18) H 03/12/24 04:57 Creatinine 0.97 mg/dL (0.55-1.02) 03/12/24 04:57 Est GFR (MDRD) Af Amer 72 mL/min (>60) 03/12/24 04:57 Est GFR (MDRD) Non-Af 60 mL/min (>60) 03/12/24 04:57 BUN/Creatinine Ratio 25.7 RATIO (10-20) H 03/12/24 04:57 Glucose 161 mg/dL (74-106) H 03/12/24 04:57 Assessment/Plan: 1. Pain: acetaminophen 1000mg PO Q8 and oxycodone 10mg PO Q4H PRN pain 6-10. Resident has had 2 does for pain scores of 6 and 7 in the hip/knee/back. Please continue to monitor for increased pain, PRN usage, constipation and respiratory depression. 2. Bowel: senna/docusate 2T PO BID and magnesium citrate 300mL PO daily PRN constipation. No PRN doses have been given. No documented bowel movements at this time. Please continue to monitor for constipation, diarrhea and PRN usage. 3. DVT prophylaxis: enoxaparin 40mg SC daily. Please continue to monitor for S/Sof bleeding/DVT, platelets (last 179,000), hemoglobin (last 7.4g/dL) and renal function. 4. GERD: pantoprazole 40mg PO QHS and calcium carbonate 500mg PO TIDCM. Please continue to monitor for S/S of GERD, diarrhea (BEERs medication) and calcium (last 8.6mg/dL). 5. Hypothyroidism: levothyroxine 150mcg PO daily. Please continue to monitor forS/S of hypothyroidism and TSH (last 03/08/24). 6. Hypertension: lisinopril 5mg PO daily. Please continue to monitor BP (last 142/58), potassium (last 3.6mmol/L), SCr (last 0.97mg/dL) and cough. 7. Diabetes mellitus II: metformin 1000mg PO QAM and 500mg QPM. Please continue to monitor hemoglobin A1c (last 6.5% 03/08/24), glucose (last 156mg/dL), diarrheaand GFR (last 60mL/min). 8. HSV: acyclovir 400mg PO TID. Please continue to monitor for S/S of HSV outbreak, diarrhea and renal function. 9. Muscle spasm: cyclobenzaprine 5mg PO TID PRN muscle spasm. Resident has had 1dose so far. Please continue to monitor for muscle spasms, PRN usage, dementia/delirium (BEERs medication) and anticholinergic side effects (BEERs medication, on Biotene). 10. Allergic rhinitis: fluticasone 0.05% nasal spray 1 spray nasal daily and loratadine 10mg PO daily. Please continue to monitor for S/S of allergies, dry nares and renal function. 11. Dry mouth: Biotene 15mL MM 5x/day PRN dry mouth. Resident has had 1 dose. Please continue to monitor for PRN usage. 12. Vitamin D deficiency/nutrition: ergocalciferol 1.25mg PO weekly and multivitamin with minerals 1T PO DAILYCM. Please continue to monitor vitamin D (last 03/08/24). Assessment/Plan for indications treated with psychotropic medications: 1. Depression: bupropion XL 300mg PO QAM. Please continue to monitor for suicidal ideation (black box warning), GI side effects and weight gain. Please consider GDR by 08/2024 if clinically appropriate. Thanks. Medical chart and medication regimen reviewed. The following medication irregularities or issues were identified: 1. Bupropion XL 300mg PO QAM. Please consider GDR by 08/2024 if clinically appropriate. Thanks. Date Date of Note:: 03/12/24 Documented by User: Dr. Moise Glez MD 03/12/24 13:26 TCU RX Drug Regimen Review Provider Comments Provider responsibility Provider Comments to Recommendations by Pharmacy: Agree 03/12/24 1307 <Electronically signed by Lelo Koch> Lelo Koch Cosigner Signature (if applicable): 03/12/24 1326 <Electronically signed by Moise Glez MD> CC: ~ Signed [facility] Work Phone: 1(610) 884-111404-18-2024 Discharge summary Author Yoel Bass [facility] March 11, 2024 11:36am Note Date/Time March 11, 2024 11: 36am [facility] System Medical Records Department [address] [place] [id number] Discharge Summary 03/11/24 1136 MR#: [id number] Acct: [id number] Name: SALONI HICKS Rep #: [id number] : 1950 74 From: Yoel Bass DO PCP: Dr. Summer Worrell DO Status:ADM IN Location: [facility] [id number] Providers Date of Admission: 03/07/24 Primary Care Physician: Dr. Summer Worrell DO Consultations 03/07/24 21:58 Consult: Orthopedics Routine Consulting Provider: Alireza Lang Reason for Consult: Left Hip Fracture after Mechanical Fall. EMERGENT Consult: No MD Notified: Yes Date Notified: 03/07/24 Time Notified: 20:14 Method of Notification: ED Physician Initiated Reason For Visit: LEFT HIP FRACTURE AFTER MECHANICAL FALL Diagnosis Discharge Diagnosis (1) Closed fracture of left hip: Status: Acute Code(s): S72.002A - Fracture of unspecified part of neck of left femur, initial encounterfor closed fracture Qualifiers: Encounter type: initial encounter Qualified Code(s): S72.002A - Fracture of unspecified part of neck of left femur, initial encounter for closedfracture (2) Fall: Status: Acute Code(s): W19.XXXA - Unspecified fall, initial encounter Qualifiers: Encounter type: initial encounter Qualified Code(s): W19.XXXA - Unspecified fall, initial encounter (3) Peripheral neuropathy: Status: Acute Code(s): G62.9 - Polyneuropathy, unspecified Qualifiers: Peripheral neuropathy type: polyneuropathy, unspecified Qualified Code(s): G62.9 - Polyneuropathy, unspecified (4) Diabetes: Status: Acute Code(s): E11.9 - Type 2 diabetes mellitus without complications Qualifiers: Diabetes mellitus type: type 2 Diabetes mellitus assisted insulin use:without assisted use Diabetes mellitus complication status: with other specified complication Qualified Code(s): E11.69 - Type 2 diabetes mellitus with other specified complication Plan Left Hip Fracture after Mechanical Fall * s/p Left IM nail * Pain control * Orthopaedics recommending: * Weightbearing: Weightbearing as tolerated left lower extremity with a walker * Antibiotics: Ancef 2 g x 3 doses postoperatively, 1 dose given preoperatively * DVT Prophylaxis: Lovenox to start tomorrow morning * Patel: None * Dressing: Dry sterile dressing changes daily and as needed for saturation * X-Rays: 2 weeks postop in the office * Follow-up: 2 weeks post-operatively with me in the office * 25-OH d level 36.6, start ergocalciferol. * Pain not adequately controlled. Increase oxy 10 to Q4 PRN, add 2 days of PRN ketorolac. Left ankle pain * suspect sprain from fall * Xray of left ankle on my evaluation appears ok. Final read was soft tissue swelling, calcaneal spurs. * Ice PRN. Chronic conditions: * Chronic Peripheral Neuropathy; with poor balance and recent increase in frequency of falls likely significantly contributing to #1 with MCV of 104.5 present on admission Continue home medications. * Essential Hypertension - Resume home regimen plus give prn IV Hydralazine for systolic blood pressure > 160 mmHg. * Hypothyroidism; with a history of Juani's thyroiditis and diffuse thyroid goiter - Noted. Check TSH and continue Synthroid as previous. * DM-2; of unknown control on Metformin - ADA diet after ORIF but keep NPO except for sips, ice chips and medications. FSBS q. 6 hours. Check HgbA1c to objectively evaluate quality of diabetic control. Add SSI. * History of tobacco abuse - Tobacco cessation will be strongly encouraged. * History of HSV - Noted. Continue Acyclovir. * History of TIA (2011) - Stable. * RA - stable * History of renal calculi; with subsequent stent and lithotripsy * Depression - Continue home regimen plus give prn Xanax for breakthrough symptoms. * GERD - Resume PPI as previous. * OA; with chronic back pain - Stable. Give Tylenol prn. DVT prophylaxis w enoxaparin. Patient to be discharged to the transitional care unit. Medications at Discharge Home Medications bupropion HCl 300 mg 24 hr tablet, extended release (Wellbutrin XL) 300 mg PO QAM 11/20/18 multivitamin with minerals-folic acid 0.4 mg tablet (Adult One Daily Multivitamin) 1 tab PO DAILY 11/20/18 fluticasone propionate 50 mcg/actuation nasal spray,suspension 1 spray NASAL DAILY 06/22/20 loratadine 10 mg capsule 10 mg PO DAILY 06/22/20 metformin 500 mg tablet 1,000 mg PO DAILY 08/04/20 omeprazole 40 mg capsule,delayed release 40 mg PO QHS 10/13/20 levothyroxine 175 mcg tablet (Synthroid) 150 mcg PO DAILY 01/30/22 metformin 500 mg tablet 500 mg PO QHS 06/28/22 estradiol 0.01% (0.1 mg/gram) vaginal cream See Rx Instructions vaginal .COMPLEX#42.5 grams 07/24/23 mometasone 0.1 % topical ointment 1 applic topical .COMPLEX #15 grams 09/03/23 lisinopril 5 mg tablet 5 mg PO DAILY 03/07/24 valacyclovir 500 mg tablet 500 mg PO BID 03/07/24 acetaminophen 500 mg tablet 1,000 mg (2 x 500 mg) PO Q8 #0 tabs 03/11/24 calcium carbonate 500 mg (2.5 x 200 mg calcium (500 mg)) PO TIDCM #0 tabs 03/11/24 cyclobenzaprine 5 mg tablet 5 mg PO TID PRN PRN Muscle Spasm #0 tabs 03/11/24 enoxaparin 40 mg/0.4 mL subcutaneous syringe 40 mg (0.4 mL) subcut DAILY@0600 28days #4 mL 03/11/24 ergocalciferol (vitamin D2) 1,250 mcg (50,000 unit) capsule (Vitamin D2) 1,250 mcg PO Q7D #7 caps 03/11/24 oxycodone 5 mg tablet 10 mg (2 x 5 mg) PO Q6H PRN pain 3 days #12 tabs 03/11/24 sennosides 8.6 mg-docusate sodium 50 mg tablet (Stool Softener-Stimulant Laxative) 2 tab PO BID PRN PRN Constipation #0 tabs 03/11/24 Hospital Course Summary of Care Provided Minutes Spent on Discharge: 35 Weight / BMI Weight Weight: 64 kg Body Mass Index (BMI) 22.1 ABG / Lab / Microbiology Data 03/08/24 06:10 03/08/24 06:10 Laboratory: Laboratory Results - last 24 hr 03/10/24 11:39: POC Glucose 215 H 03/10/24 16:03: POC Glucose 146 H 03/10/24 21:53: POC Glucose 147 H Meaningful Use Info Meaningful Use Meaningful Use Diagnoses (Choose all that apply): None applicable Ischemic Stroke Statin Dosing Therapy Reference: STATIN DOSE THERAPY REFERENCE: * Patients > 75 years receive moderate or high dose statin therapy. * Patients 75 years or YOUNGER should receive HIGH intensity statin dose unless contraindicated. You will be required to document reason for non-treatment if statin daily dose does not meet guidelines. HIGH DOSE STATIN THERAPY DAILY Atorvastatin > than or = to 40 mg Rosuvastatin > than or = to 20 mg Amlodipine + Atorvastatin > than or = to 2.5/40 mg Ezetimibe + Simvastatin 10/80 mg Simvastatin 80mg Discharge Plan Admission Admit Date/Time: 03/07/24 20:10 Primary Reason for Your Visit: Left hip fracture Attending Provider: Yoel Bass Primary Care Provider: Summer Worrell Consulting Providers: Arya Sapp; Alireza Lang Discharge Orders/Prescriptions Prescriptions: New acetaminophen 500 mg Tablet 1,000 mg PO Q8 Qty: 0 0RF calcium carbonate 200 mg calcium (500 mg) Tablet,Chewable 500 mg PO TIDCM Qty: 0 0RF enoxaparin 40 mg/0.4 mL Syringe 40 mg subcut DAILY@0600 28 Days Qty: 4 0RF cyclobenzaprine 5 mg Tablet 5 mg PO TID PRN PRN (Reason: Muscle Spasm) Qty: 0 0RF ergocalciferol (vitamin D2) [Vitamin D2] 1,250 mcg (50,000 unit) Capsule 1,250 mcg PO Q7D Qty: 7 0RF sennosides-docusate sodium [Stool Softener-Stimulant Laxat] 8.6-50 mg Tablet 2 tab PO BID PRN PRN (Reason: Constipation) Qty: 0 0RF oxycodone 5 mg Tablet 10 mg PO Q6H PRN (Reason: pain) 3 Days Qty: 12 0RF Continued Adult One Daily Multivitamin 0.4 mg tablet 1 tab PO DAILY bupropion HCl [Wellbutrin XL] 300 mg tablet extended release 24 hr 300 mg PO QAM metformin 500 mg tablet 1,000 mg PO DAILY omeprazole 40 mg capsule,delayed release(DR/EC) 40 mg PO QHS estradiol 0.01 % (0.1 mg/gram) cream See Rx Instructions vaginal .COMPLEX Qty: 42.5 2RF Rx Instructions: small amount as directed vaginal every other day X 4 weeks then twice a week; mometasone 0.1 % ointment 1 applic topical .COMPLEX Qty: 15 2RF Rx Instructions: 1 applic topical small amount as directed and rub in daily X 1 week prn with symptoms fluticasone propionate 1 SPRAY spray,suspension 1 spray NASAL DAILY loratadine 10 MG capsule 10 mg PO DAILY levothyroxine [Synthroid] 175 mcg tablet 150 mcg PO DAILY metformin 500 mg Tablet 500 mg PO QHS valacyclovir 500 mg tablet 500 mg PO BID lisinopril 5 mg tablet 5 mg PO DAILY Referrals / Follow Up: Summer Worrell, [Primary Care Provider] - Within 2 Weeks Disposition Disposition (needs filled in before D/C Order can be placed): [facility] Facility Charges/Coding Visit Charges Inpatient E&M: 65989 Disch Hosp >30min 03/11/24 1136 <Electronically signed by Yeol Bass DO> Cosigner Signature (if applicable): CC: Dr. Yoel Bass DO; Dr. Summer Worrell DO~ Signed [facility] Work Phone: [phone]) 104-163004-18-2024 Discharge summary Author Yoel Bass [facility] March 11, 2024 11:35am Note Date/Time March 11, 2024 11: 29am [facility] Medical Records Department [address] [place] [address] Transfer to [facility] MR#: [id number] Acct: [id number] Name: SALONI HICKS Rep #: [id number] : 1950 74 From: Yoel Bass DO PCP: Dr. Summer Worrell DO Status:ADM IN Certification of patient admission REQUIRED AT TIME OF ADMISSION. I CERTIFY THAT POST-HOSPITAL ECF SERVICES ARE REQUIRED TO BE GIVEN ON AN IN-PATIENT BASIS BECAUSE OF THE ABOVE NAMED PATIENT'S NEED FOR CORRECTION CARE ON A CONTINUING BASIS FOR THE CONDITION(S) FOR WHICH HE/SHE WAS RECEIVING IN-PATIENT HOSPITAL SERVICES PRIOR TO HIS/HER TRANSFER TO THE F. 03/11/24 1135<Electronically signed by Yoel Bass DO> Diet Diet Order/Speech Therapy: 03/09/24 09:04 Diet: Regular - General Is pt able to select menu?: Yes Routine Orders/Code Status Code Status: Full Code Wound(s) LEFT HIP: Wound Type: Surgical Incision Therapies Weight Bearing: Full weight bearing Physical Therapy: Eval and Treat Occupational Therapy: Eval and Treat Problem/Diagnosis (1) Closed fracture of left hip: Status: Acute Code(s): S72.002A - Fracture of unspecified part of neck of left femur, initial encounterfor closed fracture (2) Fall: Status: Acute Code(s): W19.XXXA - Unspecified fall, initial encounter (3) Peripheral neuropathy: Status: Acute Code(s): G62.9 - Polyneuropathy, unspecified (4) Diabetes: Status: Acute Code(s): E11.9 - Type 2 diabetes mellitus without complications Plan Left Hip Fracture after Mechanical Fall * s/p Left IM nail * Pain control * Orthopaedics recommending: * Weightbearing: Weightbearing as tolerated left lower extremity with a walker * Antibiotics: Ancef 2 g x 3 doses postoperatively, 1 dose given preoperatively * DVT Prophylaxis: Lovenox to start tomorrow morning * Patel: None * Dressing: Dry sterile dressing changes daily and as needed for saturation * X-Rays: 2 weeks postop in the office * Follow-up: 2 weeks post-operatively with me in the office * 25-OH d level 36.6, start ergocalciferol. * Pain not adequately controlled. Increase oxy 10 to Q4 PRN, add 2 days of PRN ketorolac. Left ankle pain * suspect sprain from fall * Xray of left ankle on my evaluation appears ok. Final read was soft tissue swelling, calcaneal spurs. * Ice PRN. Chronic conditions: * Chronic Peripheral Neuropathy; with poor balance and recent increase in frequency of falls likely significantly contributing to #1 with MCV of 104.5 present on admission Continue home medications. * Essential Hypertension - Resume home regimen plus give prn IV Hydralazine for systolic blood pressure > 160 mmHg. * Hypothyroidism; with a history of Juani's thyroiditis and diffuse thyroid goiter - Noted. Check TSH and continue Synthroid as previous. * DM-2; of unknown control on Metformin - ADA diet after ORIF but keep NPO except for sips, ice chips and medications. FSBS q. 6 hours. Check HgbA1c to objectively evaluate quality of diabetic control. Add SSI. * History of tobacco abuse - Tobacco cessation will be strongly encouraged. * History of HSV - Noted. Continue Acyclovir. * History of TIA (2011) - Stable. * RA - stable * History of renal calculi; with subsequent stent and lithotripsy * Depression - Continue home regimen plus give prn Xanax for breakthrough symptoms. * GERD - Resume PPI as previous. * OA; with chronic back pain - Stable. Give Tylenol prn. DVT prophylaxis w enoxaparin. Patient to be discharged to the transitional care unit. Allergies/Procedures Done in Hospital Allergies No Known Allergies Allergy (Verified 03/08/24 12:38) Type of Care/Length of Stay Estimated LOS: Convalescent Care Less Than 30 days Type of Care Needed: Skilled Rehab Potential: Good Prognosis: Good Additional Orders/Day of Discharge Day of Discharge: 03/11/24 Discharge Plan Admission Admit Date/Time: 03/07/24 20:10 Primary Reason for Your Visit: Left hip fracture Attending Provider: Yoel Bass Primary Care Provider: Summer Worrell Consulting Providers: Arya Sapp; Alireza Lang Discharge Orders/Prescriptions Prescriptions: New acetaminophen 500 mg Tablet 1,000 mg PO Q8 Qty: 0 0RF calcium carbonate 200 mg calcium (500 mg) Tablet,Chewable 500 mg PO TIDCM Qty: 0 0RF enoxaparin 40 mg/0.4 mL Syringe 40 mg subcut DAILY@0600 28 Days Qty: 4 0RF cyclobenzaprine 5 mg Tablet 5 mg PO TID PRN PRN (Reason: Muscle Spasm) Qty: 0 0RF ergocalciferol (vitamin D2) [Vitamin D2] 1,250 mcg (50,000 unit) Capsule 1,250 mcg PO Q7D Qty: 7 0RF sennosides-docusate sodium [Stool Softener-Stimulant Laxat] 8.6-50 mg Tablet 2 tab PO BID PRN PRN (Reason: Constipation) Qty: 0 0RF oxycodone 5 mg Tablet 10 mg PO Q6H PRN (Reason: pain) 3 Days Qty: 12 0RF Continued Adult One Daily Multivitamin 0.4 mg tablet 1 tab PO DAILY bupropion HCl [Wellbutrin XL] 300 mg tablet extended release 24 hr 300 mg PO QAM metformin 500 mg tablet 1,000 mg PO DAILY omeprazole 40 mg capsule,delayed release(DR/EC) 40 mg PO QHS estradiol 0.01 % (0.1 mg/gram) cream See Rx Instructions vaginal .COMPLEX Qty: 42.5 2RF Rx Instructions: small amount as directed vaginal every other day X 4 weeks then twice a week; mometasone 0.1 % ointment 1 applic topical .COMPLEX Qty: 15 2RF Rx Instructions: 1 applic topical small amount as directed and rub in daily X 1 week prn with symptoms fluticasone propionate 1 SPRAY spray,suspension 1 spray NASAL DAILY loratadine 10 MG capsule 10 mg PO DAILY levothyroxine [Synthroid] 175 mcg tablet 150 mcg PO DAILY metformin 500 mg Tablet 500 mg PO QHS valacyclovir 500 mg tablet 500 mg PO BID lisinopril 5 mg tablet 5 mg PO DAILY Referrals / Follow Up: Summer Worrell DO [Primary Care Provider] - Within 2 Weeks Disposition Disposition (needs filled in before D/C Order can be placed): [facility] (1) Closed fracture of left hip Qualifiers: Encounter type: initial encounter Qualified Code(s): S72.002A - Fracture of unspecified part of neck of left femur, initial encounter for closed fracture (2) Fall Qualifiers: Encounter type: initial encounter Qualified Code(s): W19.XXXA - Unspecified fall, initial encounter (3) Peripheral neuropathy Qualifiers: Peripheral neuropathy type: polyneuropathy, unspecified Qualified Code(s): G62.9 - Polyneuropathy, unspecified (4) Diabetes Qualifiers: Diabetes mellitus type: type 2 Diabetes mellitus assisted insulin use: without terminal superintendent use Diabetes mellitus complication status: with other specified complication Qualified Code(s): E11.69 - Type 2 diabetes mellitus with other specified complication 03/11/24 1135 <Electronically signed by Yoel Bass DO> Cosigner Signature (if applicable): CC: Dr. Arya Sapp DO; Dr. Summer Worrell DO; Dr. Alireza Lang DO ~ [facility] Work Phone: [phone] Progress note Author Yoel Bass [facility] March 11, 2024 11:28am Note Date/Time March 11, 2024 7:3 5am [facility] System Medical Records Department [address] [place] [address] Progress Note - Hospitalist 03/11/24 0734 MR#: [id number] Acct: [id number] Name: FABIOLASALONI AGUEDA Rep #: [id number] : 1950 74 From: Yoel Bass DO PCP: Dr. Summer Worrell DO Status:ADM [facility] Reason for Visit Reason for Visit: Diagnoses Type 2 diabetes mellitus with other specified complication (03/07/24) Polyneuropathy, unspecified (03/07/24) Fracture of unspecified part of neck of left femur, initial encounter for closedfracture (03/07/24) Unspecified fall, initial encounter (03/07/24) Subjective Subjective Feeling better. Decreased ankle pain on the left. Objective Data Objective Data Vital Signs: Vital Signs Temp Pulse Resp BP Pulse Ox O2 Del Method O2 Flow Rate 37.1 C 92 18 133/65 H 97 Room Air 2 03/11/24 02:03 03/11/24 02:03 03/11/24 02:03 03/11/24 02:03 03/11/24 02:03 03/11/24 02:45 03/09/24 05:30 Oxygen Flow Rate (L/min) 2 Oxygen Delivery Method Room Air Weight: 64 kg Body Mass Index (BMI) 22.1 Intake & Output: Intake and Output for Last 24 Hours 03/09/24 03/10/24 03/11/24 23:59 23:59 23:59 Intake Total 2470 / 2710 740 / 740 700 / 700 Output Total 1150 / 1400 1150 / 1150 600 / 600 Balance 1320 / 1310 -410 / -410 100 / 100 Lab / Micro Data 03/08/24 06:10 03/08/24 06:10 Labs: Laboratory Results - last 24 hr 03/10/24 11:39: POC Glucose 215 H 03/10/24 16:03: POC Glucose 146 H 03/10/24 21:53: POC Glucose 147 H Physical Exam Const alert and no apparent distress Constitutional Narrative: Up in chair. Initially with her head down on a folded blanket that is on her bedside table but did awake and was pleasant. Had bilateral compression stockings bilaterally but swelling on her left medial ankle appears to be improved. Assessment & Plan Assessment/Plan (1) Closed fracture of left hip: QUALIFIERS: Encounter type: initial encounter Qualified Code(s): S72.002A - Fracture of unspecified part of neck of left femur, initial encounterfor closed fracture (2) Fall: QUALIFIERS: Encounter type: initial encounter Qualified Code(s): W19.XXXA - Unspecified fall, initial encounter (3) Peripheral neuropathy: QUALIFIERS: Peripheral neuropathy type: polyneuropathy, unspecified Qualified Code(s): G62.9 - Polyneuropathy, unspecified (4) Diabetes: QUALIFIERS: Diabetes mellitus complication status: with other specified complication Diabetes mellitus terminal superintendent insulin use: without terminal superintendent use Diabetes mellitus type: type 2 Qualified Code(s): E11.69 - Type 2 diabetes mellitus with other specified complication PLAN: Plan Left Hip Fracture after Mechanical Fall * s/p Left IM nail * Pain control * Orthopaedics recommending: * Weightbearing: Weightbearing as tolerated left lower extremity with a walker * Antibiotics: Ancef 2 g x 3 doses postoperatively, 1 dose given preoperatively * DVT Prophylaxis: Lovenox to start tomorrow morning * Patel: None * Dressing: Dry sterile dressing changes daily and as needed for saturation * X-Rays: 2 weeks postop in the office * Follow-up: 2 weeks post-operatively with me in the office * 25-OH d level 36.6, start ergocalciferol. * Pain not adequately controlled. Increase oxy 10 to Q4 PRN, add 2 days of PRN ketorolac. Left ankle pain * suspect sprain from fall * Xray of left ankle on my evaluation appears ok. Final read was soft tissue swelling, calcaneal spurs. * Ice PRN. Chronic conditions: * Chronic Peripheral Neuropathy; with poor balance and recent increase in frequency of falls likely significantly contributing to #1 with MCV of 104.5 present on admission Continue home medications. * Essential Hypertension - Resume home regimen plus give prn IV Hydralazine for systolic blood pressure > 160 mmHg. * Hypothyroidism; with a history of Juani's thyroiditis and diffuse thyroid goiter - Noted. Check TSH and continue Synthroid as previous. * DM-2; of unknown control on Metformin - ADA diet after ORIF but keep NPO except for sips, ice chips and medications. FSBS q. 6 hours. Check HgbA1c to objectively evaluate quality of diabetic control. Add SSI. * History of tobacco abuse - Tobacco cessation will be strongly encouraged. * History of HSV - Noted. Continue Acyclovir. * History of TIA (2011) - Stable. * RA - stable * History of renal calculi; with subsequent stent and lithotripsy * Depression - Continue home regimen plus give prn Xanax for breakthrough symptoms. * GERD - Resume PPI as previous. * OA; with chronic back pain - Stable. Give Tylenol prn. DVT prophylaxis w enoxaparin. Patient to be discharged to the transitional care unit. 03/11/24 1128 <Electronically signed by Yoel Jopperi DO> Cosigner Signature (if applicable): CC: ~ Signed [facility] Work Phone: [phone] Progress note Author Alireza Lang [facility] March 10, 2024 5:47pm Note Date/Time March 10, 2024 5:4 7pm [facility] Health System Medical Records Department [address] [place] [address] Progress Note - Orthopedic 03/10/24 1743 MR#: [id number] Acct: [id number] Name: SALONI HICKS Rep #: [id number] : 1950 74 From: Alireza odom DO PCP: Dr. Summer Worrell, Status:ADM IN Location: [place] [address]-1 Subjective Subjective Patient seen and examined. Denies any new complaints. Out of bed with therapy today. Plan is for SNF. Denies fevers or chills no nausea vomiting no chest pain or shortness of breath. Objective Data Objective Data Vital Signs: Vital Signs Temp Pulse Resp BP Pulse Ox O2 Del Method O2 Flow Rate 97 F L 95 16 117/57 L 96 Room Air 2 03/10/24 14:15 03/10/24 14:15 03/10/24 14:15 03/10/24 14:15 03/10/24 14:15 03/10/24 14:15 03/09/24 05:30 Oxygen Flow Rate (L/min) 2 Oxygen Delivery Method Room Air Weight: 139 lb 8.842 oz Body Mass Index (BMI) 21.9 Intake & Output: Intake and Output for Last 24 Hours 03/08/24 03/09/24 03/10/24 23:59 23:59 23:59 Intake Total 2112.17 / 2112.17 2470 / 2710 740 / 740 Output Total 1100 / 1100 1150 / 1400 900 / 900 Balance 1012.17 / 1012.17 1320 / 1310 -160 / -160 Lab / Micro Data 03/08/24 06:10 03/08/24 06:10 Labs: Laboratory Results - last 24 hr 03/10/24 06:13: POC Glucose 165 H 03/10/24 11:39: POC Glucose 215 H 03/10/24 16:03: POC Glucose 146 H Physical Exam Narrative General - A&Ox3, NAD. VSS/AF Left lower extremity -incisional dressing C/D/I. SILT Sural, Saphenous, SPN, DPN, Tibial N. distributions. DP, PT 2+. BCR. DF, PF, EHL 5/5. No calf TTP. Edema appears resolved left lower extremity. Nontender over the medial or lateral malleoli, ATFL left ankle. No ecchymosis. Assessment & Plan Assessment/Plan (1) Closed fracture of left hip: QUALIFIERS: Encounter type: initial encounter Qualified Code(s): S72.002A - Fracture of unspecified part of neck of left femur, initial encounterfor closed fracture PLAN: POD#2 s/p left femur CMN -Patient seen and examined. She has been out of bed however progress is slow. Therapy recommending SNF, I agree with this recommendation. I attempted to encourage the patient to work as hard as possible with physical therapy. I suspect her progress will be slowed with her frequent falls prior to fracture and peripheral neuropathy. -Edema in the left lower extremity appears all but resolved with CLYDE hose. - Pain control - Medicine following for medical management - PT/OT -weightbearing as tolerated left lower extremity - DVT PPX -Lovenox 40 mg subcu daily, CDs, CLYDE ablderas - Case management - D/C planning. Pre-CERT pending for SNF. Stable for discharge to SNF once pre-CERT obtained from my standpoint. I will sign off at this time. Discharge instructions: Follow-up 2 weeks at [facility] with x-rays. Will plan for staple removal at that time. Continue Lovenox upon discharge x 4 weeks postoperatively. Please do not hesitate to call if any questions or concerns arise. Thank you for this consultation. 03/10/24 0138 <Electronically signed by Alireza Lang DO> Cosigner Signature (if applicable): CC: ~ Signed [facility] Work Phone: [phone] Progress note Author Yoel Bass [facility] March 10, 2024 11:40am Note Date/Time March 10, 2024 7:2 3am [facility] Health System Medical Records Department [facility] [place] [address] Progress Note - Hospitalist 03/10/24 0721 MR#: [id number] Acct: [id number] Name: SALONI HICKS Rep #: [id number] : 1950 74 From: Yoel Bass DO PCP: Dr. Summer Worrell DO Status:ADM IN Location: [facility] VP850-6 Reason for Visit Reason for Visit: Diagnoses Type 2 diabetes mellitus with other specified complication (03/07/24) Polyneuropathy, unspecified (03/07/24) Fracture of unspecified part of neck of left femur, initial encounter for closedfracture (03/07/24) Unspecified fall, initial encounter (03/07/24) Subjective Subjective Still with pain in left hip and ankle. Objective Data Objective Data Vital Signs: Vital Signs Temp Pulse Resp BP Pulse Ox O2 Del Method O2 Flow Rate 36.6 C 90 18 134/68 H 95 Room Air 2 03/10/24 06:01 03/10/24 06:01 03/10/24 06:01 03/10/24 06:01 03/10/24 06:01 03/10/24 06:01 03/09/24 05:30 Oxygen Flow Rate (L/min) 2 Oxygen Delivery Method Room Air Weight: 63.3 kg Body Mass Index (BMI) 21.9 Intake & Output: Intake and Output for Last 24 Hours 03/08/24 03/09/24 03/10/24 23:59 23:59 23:59 Intake Total 2112.17 / 2112.17 2470 / 2710 740 / 740 Output Total 1100 / 1100 1150 / 1400 600 / 600 Balance 1012.17 / 1012.17 1320 / 1310 140 / 140 Lab / Micro Data 03/08/24 06:10 03/08/24 06:10 Labs: Laboratory Results - last 24 hr 03/09/24 11:19: POC Glucose 172 H 03/09/24 16:18: POC Glucose 177 H 03/10/24 06:13: POC Glucose 165 H Radiography Diagnostic Testing: Radiology Impression Ankle X-Ray 03/09/24 10:40 IMPRESSION: Soft tissue swelling. Calcaneal spurs. Talar neck beak. Electronically Signed: Michael Abdul MD at 14:58 EDT Reading Location ID and State: [facility] / [place] , Service support , Physical Exam Const alert and no apparent distress HEENT head/scalp atraumatic and moist oral mucous membranes Resp normal respiratory effort Extremity Extremity Narrative: compression stockings in place. slight swelling over left medial maleolus. Assessment & Plan Assessment/Plan (1) Closed fracture of left hip: QUALIFIERS: Encounter type: initial encounter Qualified Code(s): S72.002A - Fracture of unspecified part of neck of left femur, initial encounterfor closed fracture (2) Fall: QUALIFIERS: Encounter type: initial encounter Qualified Code(s): W19.XXXA - Unspecified fall, initial encounter (3) Peripheral neuropathy: QUALIFIERS: Peripheral neuropathy type: polyneuropathy, unspecified Qualified Code(s): G62.9 - Polyneuropathy, unspecified (4) Diabetes: QUALIFIERS: Diabetes mellitus complication status: with other specified complication Diabetes mellitus terminal superintendent insulin use: without assisted use Diabetes mellitus type: type 2 Qualified Code(s): E11.69 - Type 2 diabetes mellitus with other specified complication PLAN: Plan Left Hip Fracture after Mechanical Fall * s/p Left IM nail * Pain control * Orthopaedics recommending: * Weightbearing: Weightbearing as tolerated left lower extremity with a walker * Antibiotics: Ancef 2 g x 3 doses postoperatively, 1 dose given preopera tively * DVT Prophylaxis: Lovenox to start tomorrow morning * Patel: None * Dressing: Dry sterile dressing changes daily and as needed for saturation * X-Rays: 2 weeks postop in the office * Follow-up: 2 weeks post-operatively with me in the office * 25-OH d level 36.6, start ergocalciferol. * Pain not adequately controlled. Increase oxy 10 to Q4 PRN, add 2 days of PRN ketorolac. Left ankle pain * suspect sprain from fall * Xray of left ankle on my evaluation appears ok. Final read was soft tissue swelling, calcaneal spurs. * Ice PRN. Chronic conditions: * Chronic Peripheral Neuropathy; with poor balance and recent increase in frequency of falls likely significantly contributing to #1 with MCV of 104.5 present on admission Continue home medications. * Essential Hypertension - Resume home regimen plus give prn IV Hydralazine for systolic blood pressure > 160 mmHg. * Hypothyroidism; with a history of Juani's thyroiditis and diffuse thyroid goiter - Noted. Check TSH and continue Synthroid as previous. * DM-2; of unknown control on Metformin - ADA diet after ORIF but keep NPO except for sips, ice chips and medications. FSBS q. 6 hours. Check HgbA1c to objectively evaluate quality of diabetic control. Add SSI. * History of tobacco abuse - Tobacco cessation will be strongly encouraged. * History of HSV - Noted. Continue Acyclovir. * History of TIA (2011) - Stable. * RA - stable * History of renal calculi; with subsequent stent and lithotripsy * Depression - Continue home regimen plus give prn Xanax for breakthrough symptoms. * GERD - Resume PPI as previous. * OA; with chronic back pain - Stable. Give Tylenol prn. DVT prophylaxis w enoxaparin. Charges/Coding Visit Charges Inpatient E&M: 89426 Subs Hosp L1 03/10/24 1140 <Electronically signed by Yoel Bass DO> Cosigner Signature (if applicable): CC: ~ Signed [facility] Work Phone: [phone]) 725-191204-16-2024 Progress note Author Alireza Lang [facility] March 09, 2024 3:42pm Note Date/Time March 09, 2024 3:4 2pm [facility] Health System Medical Records Department [address] [place] [address] Progress Note - Orthopedic 03/09/24 1538 MR#: [id number] Acct: [id number] Name: SALONI HICKS Rep #: [id number] : 1950 74 From: Alireza odom DO PCP: Dr. Summer Worrell, Status:ADM IN Location: [facility] RN090-8 Subjective Subjective Patient seen and examined. Reports left ankle pain. She is unsure if she injured this. She she states she has some shooting pain in her left hip with motion but denies significant pain at rest. Denies fevers, chills, nausea vomiting, chest pain or shortness of breath. Objective Data Objective Data Vital Signs: Vital Signs Temp Pulse Resp BP Pulse Ox O2 Del Method O2 Flow Rate 98.2 F 106 H 18 110/61 90 Room Air 2 03/09/24 14:09 03/09/24 14:09 03/09/24 14:09 03/09/24 14:09 03/09/24 14:09 03/09/24 14:09 03/09/24 05:30 Oxygen Flow Rate (L/min) 2 Oxygen Delivery Method Room Air Weight: 139 lb 8.842 oz Body Mass Index (BMI) 21.9 Intake & Output: Intake and Output for Last 24 Hours 03/07/24 03/08/24 03/09/24 23:59 23:59 23:59 Intake Total 0 / 0 2112.17 / 2112.17 2470 / 2470 Output Total 1100 / 1100 900 / 900 Balance 0 / 0 1012.17 / 1012.17 1570 / 1570 Lab / Micro Data 03/08/24 06:10 03/08/24 06:10 Labs: Laboratory Results - last 24 hr 03/08/24 16:43: POC Glucose 168 H 03/08/24 22:56: POC Glucose 211 H 03/09/24 06:25: POC Glucose 137 H 03/09/24 11:19: POC Glucose 172 H Radiography Diagnostic Testing: Radiology Impression Ankle X-Ray 03/09/24 10:40 IMPRESSION: Soft tissue swelling. Calcaneal spurs. Talar neck beak. Electronically Signed: Michael Abdul MD at 14:58 EDT Reading Location ID and State: [facility] / [place] , Service support , Physical Exam Narrative General - A&Ox3, NAD. VSS/AF Left lower extremity -incisional dressing C/D/I. SILT Sural, Saphenous, SPN, DPN, Tibial N. distributions. DP, PT 2+. BCR. DF, PF, EHL 5/5. No calf TTP. 1?2+ pitting edema noted left foot to the proximal tibia. Nontender over the medial or lateral malleoli, ATFL left ankle. No ecchymosis. Assessment & Plan Assessment/Plan (1) Closed fracture of left hip: QUALIFIERS: Encounter type: initial encounter Qualified Code(s): S72.002A - Fracture of unspecified part of neck of left femur, initial encounterfor closed fracture PLAN: POD#1 s/p left femur CMN -X-ray reviewed left ankle. No acute fracture. I suspect left foot/ankle pain is due to edema in the left lower extremity likely secondary to post fracture positioning. No obvious signs of ankle sprain. I will order CLYDE hose to help with edema. -Patient has not been out of bed yet. I cannot encourage the patient to ideallyeat her dinner out of bed today to encourage mobilization. I suspect patient will need SNF given her poor progress in the first 24 hours. - Pain control - Medicine following for medical management - PT/OT -weightbearing as tolerated left lower extremity - DVT PPX -Lovenox 40 mg subcu daily, CDs, CLYDE hose - Case management - D/C planning 03/09/24 1544 <Electronically signed by Alireza Lang DO> Cosigner Signature (if applicable): CC: ~ Signed [facility] Work Phone: [phone] Progress note Author Yoel Bass [facility] March 09, 2024 11:16am Note Date/Time March 09, 2024 7:1 9am [facility] Health System Medical Records Department [address] [place] [address] Progress Note - Hospitalist 03/09/24 0716 MR#: [id number] Acct: [id number] Name: SALONI HICKSCHRISS Rep #: [id number] : 1950 74 From: Yoel Bass DO PCP: Dr. Summer Worrell DO Status:ADM IN Location: [place] [address]-1 Reason for Visit Reason for Visit: Diagnoses Type 2 diabetes mellitus with other specified complication (03/07/24) Polyneuropathy, unspecified (03/07/24) Fracture of unspecified part of neck of left femur, initial encounter for closedfracture (03/07/24) Unspecified fall, initial encounter (03/07/24) Subjective Subjective Complains of pain on the right side of her left ankle. Does not recall if her ankle was involved when she fell. Objective Data Objective Data Vital Signs: Vital Signs Temp Pulse Resp BP Pulse Ox O2 Del Method O2 Flow Rate 36.6 C 95 18 115/67 98 Nasal Cannula 2 03/09/24 05:30 03/09/24 05:30 03/09/24 05:30 03/09/24 05:30 03/09/24 05:30 03/09/24 05:30 03/09/24 05:30 Oxygen Flow Rate (L/min) 2 Oxygen Delivery Method Nasal Cannula Weight: 63.3 kg Body Mass Index (BMI) 21.9 Intake & Output: Intake and Output for Last 24 Hours 03/07/24 03/08/24 03/09/24 23:59 23:59 23:59 Intake Total 0 / 0 2112.17 / 2112.17 1010 / 1010 Output Total 1100 / 1100 900 / 900 Balance 0 / 0 1012.17 / 1012.17 110 / 110 Lab / Micro Data 03/08/24 06:10 03/08/24 06:10 Labs: Laboratory Results - last 24 hr 03/08/24 06:10: Sodium 135 L, Potassium 4.2, Chloride 106, Carbon Dioxide 25.0, Anion Gap 4 L, BUN 21 H, Creatinine 0.95, Estim Creat Clear Calc 50.52, Est GFR (MDRD) Af Amer 74, Est GFR (MDRD) Non-Af 61, BUN/Creatinine Ratio 22.2 H, Glucose 185 H, Hemoglobin A1c 6.5 H, Calcium 8.5, Phosphorus 3.5, Magnesium 1.9,Total Bilirubin 0.40, AST 25, ALT 24, Alkaline Phosphatase 77, Total Protein 7.0, Albumin 3.5, Globulin 3.5, Albumin/Globulin Ratio 1.0, Vitamin B12 1027 H, Vitamin D 25- Hydroxy 36.6, TSH 2.94 03/08/24 11:24: POC Glucose 162 H 03/08/24 15:00: POC Glucose 157 H 03/08/24 16:43: POC Glucose 168 H 03/08/24 22:56: POC Glucose 211 H 03/09/24 06:25: POC Glucose 137 H Radiography Diagnostic Testing: Radiology Impression Hip/Pelvis X-Ray 03/08/24 13:33 IMPRESSION: New intramedullary nail in the left femur with left hip screw and 2 distal interlocking screws, fixating the previously seen proximal left femur fracture. Electronically Signed: Don Patino MD at 14:54 EDT , Physical Exam Const alert and no apparent distress Constitutional Narrative: non-toxic. Extremity Extremity Narrative: edema left medial ankle w slight TTP. Neuro moves all extremities Sensorium / Orientation: awake and alert Assessment & Plan Assessment/Plan (1) Closed fracture of left hip: QUALIFIERS: Encounter type: initial encounter Qualified Code(s): S72.002A - Fracture of unspecified part of neck of left femur, initial encounterfor closed fracture (2) Fall: QUALIFIERS: Encounter type: initial encounter Qualified Code(s): W19.XXXA - Unspecified fall, initial encounter (3) Peripheral neuropathy: QUALIFIERS: Peripheral neuropathy type: polyneuropathy, unspecified Qualified Code(s): G62.9 - Polyneuropathy, unspecified (4) Diabetes: QUALIFIERS: Diabetes mellitus complication status: with other specified complication Diabetes mellitus terminal superintendent insulin use: without terminal superintendent use Diabetes mellitus type: type 2 Qualified Code(s): E11.69 - Type 2 diabetes mellitus with other specified complication PLAN: Plan Left Hip Fracture after Mechanical Fall * s/p Left IM nail * Pain control * Orthopaedics recommending: * Weightbearing: Weightbearing as tolerated left lower extremity with a walker * Antibiotics: Ancef 2 g x 3 doses postoperatively, 1 dose given preoperatively * DVT Prophylaxis: Lovenox to start tomorrow morning * Patel: None * Dressing: Dry sterile dressing changes daily and as needed for saturation * X-Rays: 2 weeks postop in the office * Follow-up: 2 weeks post-operatively with me in the office * 25-OH d level 36.6, start ergocalciferol. * Pain not adequately controlled. Increase oxy 10 to Q4 PRN, add 2 days of PRN ketorolac. Left ankle pain * suspect sprain from fall * Xray of left ankle on my evaluation appears ok. Await on formal read * Ice PRN. Chronic conditions: * Chronic Peripheral Neuropathy; with poor balance and recent increase in frequency of falls likely significantly contributing to #1 with MCV of 104.5 present on admission Continue home medications. * Essential Hypertension - Resume home regimen plus give prn IV Hydralazine for systolic blood pressure > 160 mmHg. * Hypothyroidism; with a history of Juani's thyroiditis and diffuse thyroid goiter - Noted. Check TSH and continue Synthroid as previous. * DM-2; of unknown control on Metformin - ADA diet after ORIF but keep NPO excep t for sips, ice chips and medications. FSBS q. 6 hours. Check HgbA1c to objectively evaluate quality of diabetic control. Add SSI. * History of tobacco abuse - Tobacco cessation will be strongly encouraged. * History of HSV - Noted. Continue Acyclovir. * History of TIA (2011) - Stable. * RA - stable * History of renal calculi; with subsequent stent and lithotripsy * Depression - Continue home regimen plus give prn Xanax for breakthrough symptoms. * GERD - Resume PPI as previous. * OA; with chronic back pain - Stable. Give Tylenol prn. DVT prophylaxis w enoxaparin. Charges/Coding Visit Charges Inpatient E&M: 67806 Subs Hosp L2 03/09/24 1116 <Electronically signed by Yoel Bass DO> Cosigner Signature (if applicable): CC: ~ Signed [facility] Work Phone: [phone]) 200-476504-15-2024 Progress note Author Yoel Bass [facility] March 08, 2024 2:00pm Note Date/Time March 08, 2024 7:5 1am [facility] System Medical Records Department [address] [place] [address] Progress Note - Hospitalist 03/08/24 0741 MR#: [id number] Acct: [id number] Name: FABIOLASALONI AGUEDA Rep #: [id number] : 1950 74 From: Yoel Bass DO PCP: Dr. Summer Worrell, DO Status:ADM IN Location: [facility] FR895-6 Reason for Visit Reason for Visit: Diagnoses Type 2 diabetes mellitus with other specified complication (03/07/24) Polyneuropathy, unspecified (03/07/24) Fracture of unspecified part of neck of left femur, initial encounter for closedfracture (03/07/24) Unspecified fall, initial encounter (03/07/24) Subjective Subjective Had issues with nausea and pain earlier today. Objective Data Objective Data Vital Signs: Vital Signs Temp Pulse Resp BP Pulse Ox O2 Del Method 36.6 C 81 18 146/91 H 98 Room Air 03/08/24 04:19 03/08/24 04:19 03/08/24 04:19 03/08/24 04:19 03/08/24 04:19 03/08/24 04:19 Oxygen Delivery Method Room Air Weight: 63.3 kg Body Mass Index (BMI) 21.8 Intake & Output: Intake and Output for Last 24 Hours 03/06/24 03/07/24 03/08/24 23:59 23:59 23:59 Intake Total 0 / 0 Output Total 600 / 600 Balance 0 / 0 -600 / -600 Lab / Micro Data 03/08/24 06:10 03/08/24 06:10 Labs: Laboratory Results - last 24 hr 03/07/24 18:30: WBC 8.6, RBC 3.59 L, Hgb 12.2, Hct 37.5, MCV 104.5 H, MCH 34.0 H, MCHC 32.5, RDW Std Deviation 50.9 H, RDW [employer] [place] 13.2, Plt Count 236, MPV9.9, Immature Gran % (Auto) 0.300, Neut % (Auto) 60.3, Lymph % (Auto) 26.3, [place]% (Auto) 7.1, Eos % (Auto) 5.4 H, Baso % (Auto) 0.6, Absolute Neuts (auto) 5.2, Absolute Lymphs (auto) 2.27, Nucleated RBC % 0, Sodium 138, Potassium 4.1, Chloride 107, Carbon Dioxide 25.0, Anion Gap 6, BUN 28 H, Creatinine 1.13 H, EstGFR (MDRD) Af Amer 61, Est GFR (MDRD) Non-Af 50 L, BUN/Creatinine Ratio 24.8 H, Glucose 141 H, Calcium 9.0, Troponin I High Sens 4, Folate 23.20 03/07/24 20:06: Blood Type O POSITIVE, Antibody Screen NEGATIVE 03/08/24 06:10: WBC 9.3, RBC 3.28 L, Hgb 11.3 L, Hct 34.4 L, MCV 104.9 H, MCH 34.5 H, MCHC 32.8, RDW Std Deviation 50.9 H, RDW [place] [place] 13.2, Plt Count 197, MPV 9.1, Immature Gran % (Auto) 0.400, Neut % (Auto) 82.3 H, Lymph % (Auto)9.6 L, [place] % (Auto) 7.2, Eos % (Auto) 0.3, Baso % (Auto) 0.2, Absolute Neuts (auto) 7.6, Absolute Lymphs (auto) 0.89, Nucleated RBC % 0, Sodium 135 L, Potassium 4.2, Chloride 106, Carbon Dioxide 25.0, Anion Gap 4 L, BUN 21 H, Creatinine 0.95, Estim Creat Clear Calc 50.52, Est GFR (MDRD) Af Amer 74, Est GFR (MDRD) Non-Af 61, BUN/Creatinine Ratio 22.2 H, Glucose 185 H, Calcium 8.5, Phosphorus 3.5, Magnesium 1.9, Total Bilirubin 0.40, AST 25, ALT 24, Alkaline Phosphatase 77, Total Protein 7.0, Albumin 3.5, Globulin 3.5, Albumin/Globulin Ratio 1.0, TSH 2.94 Radiography Diagnostic Testing: Radiology Impression Pelvis X-Ray 03/07/24 18:34 IMPRESSION: Acute impacted fracture of the intertrochanteric left femur. Electronically Signed: Guzman Ruiz MD at 20:21 EDT Reading Location ID and State: [employer] / [email or web address] Tel , Service support , Femur X-Ray 03/07/24 18:41 IMPRESSION: Acute slightly distracted oblique fracture of the proximal shaft of the femur extending into the lesser trochanter. Electronically Signed: Guzman Ruiz MD at 20:20 EDT Reading Location ID and State: [id number] / [email or web address] Tel , Service support , Chest X-Ray 03/07/24 19:02 IMPRESSION: Normal x-ray examination of the chest. Electronically Signed: Guzman Ruiz MD at 20:22 EDT Reading Location ID and State: [id number] / [email or web address] Tel , Service support , Physical Exam Narrative Nontoxic. Alert. Being taken to the OR. Const alert Psych affect normal Assessment & Plan Assessment/Plan (1) Closed fracture of left hip: QUALIFIERS: Encounter type: initial encounter Qualified Code(s): S72.002A - Fracture of unspecified part of neck of left femur, initial encounterfor closed fracture (2) Fall: QUALIFIERS: Encounter type: initial encounter Qualified Code(s): W19.XXXA - Unspecified fall, initial encounter (3) Peripheral neuropathy: QUALIFIERS: Peripheral neuropathy type: polyneuropathy, unspecified Qualified Code(s): G62.9 - Polyneuropathy, unspecified (4) Diabetes: QUALIFIERS: Diabetes mellitus complication status: with other specified complication Diabetes mellitus terminal superintendent insulin use: without assisted use Diabetes mellitus type: type 2 Qualified Code(s): E11.69 - Type 2 diabetes mellitus with other specified complication PLAN: Plan Left Hip Fracture after Mechanical Fall * Medically cleared for surgery. * Place Patel and also place LLE in 5# Garcia's traction. * Pain control * Orthopaedics consult. * 25-OH d level 36.6, start ergocalciferol. Chronic conditions: * Chronic Peripheral Neuropathy; with poor balance and recent increase in freque ncy of falls likely significantly contributing to #1 with MCV of 104.5 present on admission Continue home medications. * Essential Hypertension - Resume home regimen plus give prn IV Hydralazine for systolic blood pressure > 160 mmHg. * Hypothyroidism; with a history of Juani's thyroiditis and diffuse thyroid goiter - Noted. Check TSH and continue Synthroid as previous. * DM-2; of unknown control on Metformin - ADA diet after ORIF but keep NPO except for sips, ice chips and medications. FSBS q. 6 hours. Check HgbA1c to objectively evaluate quality of diabetic control. Add SSI. * History of tobacco abuse - Tobacco cessation will be strongly encouraged. * History of HSV - Noted. Continue Acyclovir. * History of TIA (2011) - Stable. * RA - stable * History of renal calculi; with subsequent stent and lithotripsy * Depression - Continue home regimen plus give prn Xanax for breakthrough symptoms. * GERD - Resume PPI as previous. * OA; with chronic back pain - Stable. Give Tylenol prn. DVT prophylaxis SCDs Charges/Coding Visit Charges Inpatient E&M: 94580 Subs Hosp L1 03/08/24 1400 <Electronically signed by Yoel Bass DO> Cosigner Signature (if applicable): CC: ~ Signed [facility] Work Phone: 1(997) 303-470204-15-2024 Procedure [facility] 03-08-2024 Consult note Author Alireza Lang [facility] March 08, 2024 7:55am Note Date/Time March 08, 2024 7:3 3am [facility] Medical Records Department [address] [place] [address] Consultation - Orthopedics 03/08/24731 MR#: [id number] Acct: [id number] Name: SALONI HICKS Rep #: [id number] : 1950 74 From: Alireza odom DO PCP: Dr. Summer Worrell, Status:ADM IN Location: [facility] HPI Consult Data Date of Consult: 03/08/24 HPI Narrative Reason for Consultation: Left hip fx HPI Narrative: SALONI HICKS, is a 74 F with past medical history significant for hypertension,hypothyroidism, DM2, peripheral neuropathy, frequent falls, spinal stenosis, history of TIA, RA, recurrent UTIs who presents to [facility] after a mechanical fall walking down steps from her house yesterday. She statesshe fell directly on her left hip. Denies any head injury or loss consciousness. She was brought to [facility] where x-rays revealed a displaced left subtrochanteric femur fracture. Patient reports she has had significant difficulty with balance and falls since last March. She states she seen multiple specialists and reports that her peripheral neuropathy is worsening as well as having significant stenosis in her lumbar spine. She has seen Dr. Jeter locally for this and is active with physical therapy. She states therapy has minimally helped her balance. She states she rarely uses a cane or walker for ambulatory aid. She states her last fall was several weeks ago. She was admitted under the service of the hospitalist. I saw patient in consultation this morning. She reports no issues with anesthesia. She denies any antecedent left hip or groin pain. She denies fevers, chills, nausea vomiting, chest pain or shortness of breath. [facility] Medical History Alcohol use Anxiety and depression Arthritis Back pain due to injury Back problem Carpal tunnel syndrome Cataracts, bilateral Easy bruising GERD (gastroesophageal reflux disease) Goiter H/O: pneumonia History of stress test HSV (herpes simplex virus) infection Hypertension Hypothyroidism Kidney stones Left renal stone Leg cramps Neuropathy Recurrent UTI Rheumatoid arthritis Seasonal allergies Smoker Stress incontinence Stroke/cerebrovascular accident Syncope TIA (transient ischemic attack) Type 2 diabetes mellitus Vision problems Home Medications bupropion HCl 300 mg 24 hr tablet, extended release (Wellbutrin XL) 300 mg PO QAM 11/20/18 [History Last Taken 07/21/20 05:15] multivitamin with minerals-folic acid 0.4 mg tablet (Adult One Daily Multivitamin) 1 tab PO DAILY 11/20/18 [History Last Taken Unknown] fluticasone propionate 50 mcg/actuation nasal spray,suspension 1 spray NASAL DAILY 06/22/20 [History Last Taken Unknown] loratadine 10 mg capsule 10 mg PO DAILY 06/22/20 [History Last Taken Unknown] metformin 500 mg tablet 1,000 mg PO DAILY 08/04/20 [History Last Taken Unknown] omeprazole 40 mg capsule,delayed release 40 mg PO QHS 10/13/20 [History Last Taken 02/04/22] levothyroxine 175 mcg tablet (Synthroid) 150 mcg PO DAILY 01/30/22 [History Last Taken 07/04/22] metformin 500 mg tablet 500 mg PO QHS 06/28/22 [History Last Taken Unknown] estradiol 0.01% (0.1 mg/gram) vaginal cream See Rx Instructions vaginal .COMPLEX#42.5 grams 07/24/23 [Rx Last Taken Unknown] mometasone 0.1 % topical ointment 1 applic topical .COMPLEX #15 grams 09/03/23 [Rx Last Taken Unknown] lisinopril 5 mg tablet 5 mg PO DAILY 03/07/24 [History Last Taken Unknown] valacyclovir 500 mg tablet 500 mg PO BID 03/07/24 [History Last Taken Unknown] Allergy/AdvReac Type Severity Reaction Status Date / Time No Known Allergies Allergy Verified 03/07/24 18:27 Family History Mother Cancer Father Diabetes Heart disease Sister Diabetes Surgical History History of carpal tunnel surgery History of colonoscopy History of foot surgery History of lithotripsy Social History housing: house number of children: 0 current occupational status: retired Smoking Status: Current every day smoker tobacco type: cigarettes alcohol intake: current alcohol intake frequency: holidays/special occasions only substance use type: does not use seatbelt use: always do you feel safe at home: Yes additional social history: ROS ROS Narrative 12 point review systems obtained, negative unless otherwise noted in HPI. Vital Signs Vital Signs Vital Signs: 03/07/24 18:27 03/07/24 18:27 03/07/24 19:58 Temperature 96.2 F L 98.3 F Temperature Source Oral Pulse Rate 77 74 Respiratory Rate 16 16 18 Respiratory Effort Blood Pressure 166/94 H 150/95 H Blood Pressure Mean 118 113 Blood Pressure Source Blood Pressure Position Blood Pressure Location Pulse Ox 96 91 Oxygen Delivery Method Room Air 03/07/24 22:50 03/07/24 23:15 03/07/24 23:00 Temperature 97.5 F L Temperature Source Oral Pulse Rate 75 Respiratory Rate 16 Respiratory Effort Normal Non-Labored Blood Pressure 153/91 H Blood Pressure Mean 111 Blood Pressure Source Monitor Blood Pressure Position Semi-Fowlers Blood Pressure Location Right Arm Pulse Ox 94 97 Oxygen Delivery Method Room Air Room Air Room Air 03/08/24 04:19 Temperature 97.8 F Temperature Source Temporal Pulse Rate 81 Respiratory Rate 18 Respiratory Effort Blood Pressure 146/91 H Blood Pressure Mean 109 Blood Pressure Source Monitor Blood Pressure Position Blood Pressure Location Pulse Ox 98 Oxygen Delivery Method Room Air Weight Weight: 139 lb 8.842 oz Body Mass Index (BMI) 21.8 Physical Exam Narrative General -A&Ox3, NAD, appears stated age. Vital signs stable, afebrile. Respiratory -normal work of breathing, no intercostal retractions. CV -pulses regular, brisk capillary refill ?4 limbs. Abdomen-soft, nontender, nondistended. No guarding, rigidity, rebound tenderness. Musculoskeletal/neurologic -full range of motion nontender throughout bilateral upper extremities, right lower extremity with full sensation and strength in alldermatomes and myotomes. No midline cervical tenderness. Left lower extremity-patient holds her left hip in a flexed, adducted position. Pain With logroll of the left lower extremity. Nontender throughout the left knee femoral shaft, tibial shaft and left foot/ankle. Brisk capillary refill. Sensation intact light touch L3-S1 dermatomes. DF, PF, EHL intact. DP, PT 2+. Pelvis is stable, nontender. Skin is intact without lacerations, abrasions. Noecchymosis noted. Lab / Micro Data 03/08/24 06:10 03/08/24 06:10 Labs: Laboratory Results - last 24 hr 03/07/24 18:30: WBC 8.6, RBC 3.59 L, Hgb 12.2, Hct 37.5, MCV 104.5 H, MCH 34.0 H, MCHC 32.5, RDW Std Deviation 50.9 H, RDW [employer] [place] 13.2, Plt Count 236, MPV9.9, Immature Gran % (Auto) 0.300, Neut % (Auto) 60.3, Lymph % (Auto) 26.3, [place]% (Auto) 7.1, Eos % (Auto) 5.4 H, Baso % (Auto) 0.6, Absolute Neuts (auto) 5.2, Absolute Lymphs (auto) 2.27, Nucleated RBC % 0, Sodium 138, Potassium 4.1, Chloride 107, Carbon Dioxide 25.0, Anion Gap 6, BUN 28 H, Creatinine 1.13 H, EstGFR (MDRD) Af Amer 61, Est GFR (MDRD) Non-Af 50 L, BUN/Creatinine Ratio 24.8 H, Glucose 141 H, Calcium 9.0, Troponin I High Sens 4, Folate 23.20 03/07/24 20:06: Blood Type O POSITIVE, Antibody Screen NEGATIVE 03/08/24 06:10: WBC 9.3, RBC 3.28 L, Hgb 11.3 L, Hct 34.4 L, MCV 104.9 H, MCH 34.5 H, MCHC 32.8, RDW Std Deviation 50.9 H, RDW [place] [place] 13.2, Plt Count 197, MPV 9.1, Immature Gran % (Auto) 0.400, Neut % (Auto) 82.3 H, Lymph % (Auto)9.6 L, [place] % (Auto) 7.2, Eos % (Auto) 0.3, Baso % (Auto) 0.2, Absolute Neuts (auto) 7.6, Absolute Lymphs (auto) 0.89, Nucleated RBC % 0, Sodium 135 L, Potassium 4.2, Chloride 106, Carbon Dioxide 25.0, Anion Gap 4 L, BUN 21 H, Creatinine 0.95, Estim Creat Clear Calc 50.52, Est GFR (MDRD) Af Amer 74, Est GFR (MDRD) Non-Af 61, BUN/Creatinine Ratio 22.2 H, Glucose 185 H, Calcium 8.5, Phosphorus 3.5, Magnesium 1.9, Total Bilirubin 0.40, AST 25, ALT 24, Alkaline Phosphatase 77, Total Protein 7.0, Albumin 3.5, Globulin 3.5, Albumin/Globulin Ratio 1.0, TSH 2.94 Imaging Radiology Impression Pelvis X-Ray 03/07/24 18:34 IMPRESSION: Acute impacted fracture of the intertrochanteric left femur. Electronically Signed: Guzman Ruiz MD at 20:21 EDT Reading Location ID and State: [employer] Tel , Service support , Femur X-Ray 03/07/24 18:41 IMPRESSION: Acute slightly distracted oblique fracture of the proximal shaft of the femur extending into the lesser trochanter. Electronically Signed: Guzman Ruiz MD at 20:20 EDT Reading Location ID and State: [employer] / [email or web address] Tel , Service support , Chest X-Ray 03/07/24 19:02 IMPRESSION: Normal x-ray examination of the chest. Electronically Signed: Guzman Ruiz MD at 20:22 EDT Reading Location ID and State: [employer] Tel , Service support , Assessment & Plan Assessment/Plan (1) Closed fracture of left hip: QUALIFIERS: Encounter type: initial encounter Qualified Code(s): S72.002A - Fracture of unspecified part of neck of left femur, initial encounterfor closed fracture PLAN: Patient sustained a left subtrochanteric proximal femur fracture. -Closed, neurovascularly intact -Isolated injury -Recommending surgical intervention in the form of left femur cephalomedullary nailing -I discussed the procedure-its risks, benefits and alternative. Risks include but are not limited to bleeding, infection, loss of life or limb, risk of anesthesia, persistent pain or disability, need for additional surgery, nonunion, malunion, failure of orthopedic hardware, neurovascular injury, DVT or PE. Patient expressed understanding these risks and wished proceed with surgery. -Maintenance IV fluids, clear liquid diet after midnight n.p.o. at 2 hours priorto surgery -Type and screen -2 g Ancef IV, 1 g IV TXA on-call to the OR -Bedrest, heel protectors -Plan to proceed with surgery later today when OR becomes available Thank you for this consultation. 03/08/24 9631 <Electronically signed by Alireza Lang DO> Cosigner Signature (if applicable): CC: Dr. Arya Sapp DO; Dr. Summer Worrell DO; Dr. Alireza Lang DO~ Signed [facility] Work Phone: 1(205) 478-424404-15-2024 History and physical note Author Arya Ayala [facility] March 08, 2024 5:25am Note Date/Time March 07, 2024 8:1 0pm [facility] Medical Records Department [address] [place] [address] H&P Exam - Hospitalist 03/07/241948 MR#: [id number] Acct: [id number] Name: SALONI HICKSRODERICK Rep #: [id number] : 1950 74 From: Arya Del Rio DO PCP: Dr. Summer Worrell DO Status:ADM IN [facility] - General General Date of Admission: 03/07/24 Date of Service: 03/07/24 Chief Complaint: Left Hip Pain after Fall. HPI Narrative SALONI HICKS, is a 74 F with a past medical history of essential hypertension, hypothyroidism; with history of goiter, DM-2; of unknown control on Metformin, peripheral neuropathy; with chronically poor balance and increasingly frequent falls, history of tobacco abuse, history of HSV, history of TIA (2011), RA, history of recurrent UTI's, history of atrophic vaginitis, history of renal calculi; with subsequent stent and lithotripsy, depression, GERD and chronic back pain who presents to [facility] ER complaining of Left hip pain after fall. Ms. Hicks reports her symptoms began approximately one hour prior to arrival when she lost her balance and fell while she was walking on a sidewalk while trying to work in her yard causing her to land on her Left hip and side with subsequent severe pain and inability to ambulate, stand up or evenbear weight on her Left leg. She denies LOC or injuring her head with the fall but she does admit falling off the narrow steps of the porch of her home ~4 weeks ago. She also denies related fever, chills, nausea, vomiting, diarrhea, constipation, chest pain, SOB, recent medication changes, recent illness, history of CAD or chest pain with activity. In the ER her X-rays were positive for Left hip fracture and she was then admitted to the general medical floor forongoing care for a stay that is expected to be greater than 48 hours. [facility] Medical History Alcohol use Anxiety and depression Arthritis Back pain due to injury Back problem Carpal tunnel syndrome Cataracts, bilateral Easy bruising GERD (gastroesophageal reflux disease) Goiter H/O: pneumonia History of stress test HSV (herpes simplex virus) infection Hypertension Hypothyroidism Kidney stones Left renal stone Leg cramps Neuropathy Recurrent UTI Rheumatoid arthritis Seasonal allergies Smoker Stress incontinence Stroke/cerebrovascular accident Syncope TIA (transient ischemic attack) Type 2 diabetes mellitus Vision problems Home Medications bupropion HCl 300 mg 24 hr tablet, extended release (Wellbutrin XL) 300 mg PO QAM 11/20/18 [History Last Taken 07/21/20 05:15] multivitamin with minerals-folic acid 0.4 mg tablet (Adult One Daily Multivitamin) 1 tab PO DAILY 11/20/18 [History Last Taken Unknown] fluticasone propionate 50 mcg/actuation nasal spray,suspension 1 spray NASAL DAILY 06/22/20 [History Last Taken Unknown] loratadine 10 mg capsule 10 mg PO DAILY 06/22/20 [History Last Taken Unknown] metformin 500 mg tablet 1,000 mg PO DAILY 08/04/20 [History Last Taken Unknown] omeprazole 40 mg capsule,delayed release 40 mg PO QHS 10/13/20 [History Last Taken 02/04/22] levothyroxine 175 mcg tablet (Synthroid) 150 mcg PO DAILY 01/30/22 [History Last Taken 07/04/22] metformin 500 mg tablet 500 mg PO QHS 06/28/22 [History Last Taken Unknown] estradiol 0.01% (0.1 mg/gram) vaginal cream See Rx Instructions vaginal .COMPLEX#42.5 grams 07/24/23 [Rx Last Taken Unknown] mometasone 0.1 % topical ointment 1 applic topical .COMPLEX #15 grams 09/03/23 [Rx Last Taken Unknown] lisinopril 5 mg tablet 5 mg PO DAILY 03/07/24 [History Last Taken Unknown] valacyclovir 500 mg tablet 500 mg PO BID 03/07/24 [History Last Taken Unknown] Allergy/AdvReac Type Severity Reaction Status Date / Time No Known Allergies Allergy Verified 03/07/24 18:27 Family History Mother Cancer Father Diabetes Heart disease Sister Diabetes Surgical History History of carpal tunnel surgery History of colonoscopy History of foot surgery History of lithotripsy Social History housing: house number of children: 0 current occupational status: retired Smoking Status: Current every day smoker tobacco type: cigarettes alcohol intake: current alcohol intake frequency: holidays/special occasions only substance use type: does not use seatbelt use: always do you feel safe at home: Yes additional social history: ROS ROS Narrative Review of systems: Constitutional: Patient denies fever or chills. Eyes: Patient denies acute changes in vision or discharge from eyes. HENT: Patient denies head injury with fall, ear pain, runny nose or sore throat. CV: Patient denies chest pain, palpitations or heart racing. Resp: Patient denies SOB or cough. GI: Patient denies abdominal pain, nausea, vomiting, diarrhea or constipation. : Patient denies dysuria, urinary frequency or hematuria. MSK: Patient admits to severe pain in Left hip and leg as per HPI. Neuro: Patient admits to chronically poor balance and increasing falls as per HPI but she denies associated headache, paresthesias or focal neurologic deficits. Skin: Patient denies abscess, rash or jaundice. Psychiatric: Patient denies complaints related to uncontrolled depression or anxiety. Allergy: Patient denies lip swelling, tongue swelling or urticaria. Hematology: Patient denies easy bleeding or easy bruisability. 14 point ROS otherwise negative except for positives noted above in HPI. Vital Signs Vital Signs Vital Signs: 03/07/24 18:27 03/07/24 18:27 Temperature 96.2 F L Temperature Source Oral Pulse Rate 77 Respiratory Rate 16 16 Blood Pressure 166/94 H Blood Pressure Mean 118 Pulse Ox 96 Oxygen Delivery Method Room Air Physical Exam Const alert, oriented x3, no apparent distress, average body habitus and healthy appearing General Appearance: cooperative HEENT normocephalic, head/scalp atraumatic, hearing grossly normal bilaterally and moist oral mucous membranes Eyes PERRL and EOMs intact bilaterally Neck no lymphadenopathy and supple Resp normal respiratory effort, no retractions, no use of accessory muscles and clearto auscultation bilaterally Cardio regular rate and regular rhythm GI normal to inspection, nondistended, normoactive bowel sounds, soft to palpation,non-tender and non-distended Extremity Extremity Narrative: LLE shortened and externally rotated with no signs of vascular compromise. Skin Skin Narrative: Patient has no evidence of abscess, jaundice or rash. Neuro oriented x3, CN's II-XII intact bilaterally, moves all extremities and no focal motor deficits Sensorium / Orientation: awake, alert, oriented to person, oriented to place andoriented to time Speech: speech normal Psych affect normal Results Medical Records Data Attestation: I reviewed the patient's medical records Lab / Micro Data Attestation: I reviewed the patient's lab results. Lab results narrative: Her blood type is O+ and her antibody screen is negative 03/07/24 18:30 03/07/24 18:30 Labs: Laboratory Results - last 24 hr 03/07/24 18:30: WBC 8.6, RBC 3.59 L, Hgb 12.2, Hct 37.5, MCV 104.5 H, MCH 34.0 H, MCHC 32.5, RDW Std Deviation 50.9 H, RDW [employer] [place] 13.2, Plt Count 236, MPV9.9, Immature Gran % (Auto) 0.300, Neut % (Auto) 60.3, Lymph % (Auto) 26.3, [place]% (Auto) 7.1, Eos % (Auto) 5.4 H, Baso % (Auto) 0.6, Absolute Neuts (auto) 5.2, Absolute Lymphs (auto) 2.27, Nucleated RBC % 0 Imaging [facility] Imaging Services [address] [place] [address] Pelvis 1 or 2 Views MR#: [id number] Acct: [id number] Name: SALONI HICKS Rep #: [id number] : 1950 F 74 From: Guzman Ruiz MD PCP: Dr. Summer Worrell, DO Status: REG ER Study: Pelvis 1 or 2 Views Date of Exam: 03/07/24 Exam# [id number] Ordering Dr: Zafar Zimmer MD STUDY: X-RAY - PELVIS REASON FOR EXAM: Female, 74 years old. Trauma TECHNIQUE: One view of the pelvis was obtained. COMPARISON: 11/12/2023 FINDINGS: There is a non-specific bowel gas pattern. Normal visualized soft tissue structures. Normal bilateral iliac wings, sacroiliac joints and visualized sacrum. Normal visualized bilateral superior and inferior pubic rami. Normal pubic symphysis. Normal ischial tuberosities. Normal visualized right femoral head. Normal right acetabulum. Normal right hip joint. Acute impacted fracture of the intertrochanteric left femur. Normal left acetabulum. Normal left hip joint. RAD/Pelvis 1 or 2 Views IMPRESSION: Acute impacted fracture of the intertrochanteric left femur. Electronically Signed: Guzman Ruiz MD at 20:21 EDT , CC: Dr. Zafar Zimmer MD; Dr. Summer Worrell, DO ~ Oil Agent: Signed Assessment & Plan Assessment/Plan (1) Closed fracture of left hip: QUALIFIERS: Encounter type: initial encounter Qualified Code(s): S72.002A - Fracture of unspecified part of neck of left femur, initial encounterfor closed fracture (2) Fall: QUALIFIERS: Encounter type: initial encounter Qualified Code(s): W19.XXXA - Unspecified fall, initial encounter (3) Peripheral neuropathy: QUALIFIERS: Peripheral neuropathy type: polyneuropathy, unspecified Qualified Code(s): G62.9 - Polyneuropathy, unspecified (4) Diabetes: QUALIFIERS: Diabetes mellitus type: type 2 Diabetes mellitus care home insulin use: without terminal superintendent use Diabetes mellitus complication status: with other specified complication Qualified Code(s): E11.69 - Type 2 diabetes mellitus with other specified complication PLAN: Plan 1. Left Hip Fracture after Mechanical Fall - Admit to general medical floor. This patient has no absolute contraindications to medically-necessary medium-risk orthopedic surgery. Place Patel and also place LLE in 5# Garcia's traction. Give Tylenol prn for [id number] (level 1-5/10) pain or fever. Give Morphine IV prn for severe (level 6-10/10) pain. Finally, we will consult Dr. Lang of orthopedic surgery to see this patient on-rounds in the AM for further recommendations regarding ORIF with help appreciated in advance. 2. Chronic Peripheral Neuropathy; with poor balance and recent increase in frequency of falls likely significantly contributing to #1 with MCV of 104.5 fL present on admission - Continue home medications plus check B12 and Folate levels to evaluate for a potential underlying nutritional deficiency causing or contributing to her neuropathy. 3. Essential Hypertension - Resume home regimen plus give prn IV Hydralazine for systolic blood pressure > 160 mmHg. 4. Hypothyroidism; with a history of Juani's thyroiditis and diffuse thyroid goiter - Noted. Check TSH and continue Synthroid as previous. 5. DM-2; of unknown control on Metformin - ADA diet after ORIF but keep NPO except for sips, ice chips and medications. FSBS q. 6 hours. Check HgbA1c to objectively evaluate quality of diabetic control. 6. History of tobacco abuse - Tobacco cessation will be strongly encouraged. 7. History of HSV - Noted. Continue Acyclovir. 8. History of TIA (2011) - Stable. 9. RA - Noted. 10. History of recurrent UTI's - Noted. 11. History of atrophic vaginitis - Resume current management. 12. History of renal calculi; with subsequent stent and lithotripsy - Noted. 13. Depression - Continue home regimen plus give prn Xanax for breakthrough symptoms. 14. GERD - Resume PPI as previous. 15. OA; with chronic back pain - Stable. Give Tylenol prn. 16. DVT prophylaxis - We will avoid blood thinning agents preoperatively in this patient with traumatic fracture due to increased risk of potential bleedingcomplications. Orthopod to decide upon postoperative DVT prophylaxis regimen. Total time: Approximately 55 minutes. Charges/Coding Visit Charges Inpatient E&M: 43867 Init Hosp L2 03/08/24 0525 <Electronically signed by Arya Sapp DO> Cosigner Signature (if applicable): CC: Dr. Arya Sapp DO; Dr. Summer Worrell DO~ Signed [facility] Work Phone: 1(162) 856-480204-14-2024 Discharge summary Author Zafar Zimmer [facility] March 07, 2024 8:06pm Note Date/Time March 07, 2024 6:4 1pm [facility] Health System Medical Records Department [address] [place] [address] Emergency Department Summary 03/07/24 MR#: [id number] Acct: [id number] Name: SALONI HICKS Rep #: [id number] : 1950 74 From: Zafar Zimmer MD PCP: Dr. Summer Worrell DO Status:REG ER Location: ED HPI History of Present Illness Chief Complaint: Lower Extremity Injury Narrative Narrative: 74-year-old female past medical history of type 2 diabetes presents with left hip pain and left leg pain status post fall. She states that she was walking onthe sidewalk, and slipped/tripped and fell onto her left side, injuring her lefthip. She is unable to stand and has pain in her left hip and leg. She is unable to bear weight. She presents via EMS status post fall. She denies hitting her head or loss of consciousness, or other injury. [facility] Medical History Alcohol use Anxiety and depression Arthritis Back problem Carpal tunnel syndrome Cataracts, bilateral Easy bruising GERD (gastroesophageal reflux disease) Goiter H/O: pneumonia HSV (herpes simplex virus) infection Hypertension Hypothyroidism Left renal stone Leg cramps Neuropathy Recurrent UTI Rheumatoid arthritis Seasonal allergies Smoker Stress incontinence TIA (transient ischemic attack) Type 2 diabetes mellitus Vision problems Home Medications bupropion HCl 300 mg 24 hr tablet, extended release (Wellbutrin XL) 300 mg PO QAM 11/20/18 [History Last Taken 07/21/20 05:15] multivitamin with minerals-folic acid 0.4 mg tablet (Adult One Daily Multivitamin) 1 tab PO DAILY 11/20/18 [History Last Taken Unknown] fluticasone propionate 50 mcg/actuation nasal spray,suspension 1 spray NASAL DAILY 06/22/20 [History Last Taken Unknown] loratadine 10 mg capsule 10 mg PO DAILY 06/22/20 [History Last Taken Unknown] metformin 500 mg tablet 1,000 mg PO DAILY 08/04/20 [History Last Taken Unknown] omeprazole 40 mg capsule,delayed release 40 mg PO QHS 10/13/20 [History Last Taken 02/04/22] levothyroxine 175 mcg tablet (Synthroid) 150 mcg PO DAILY 01/30/22 [History Last Taken 07/04/22] metformin 500 mg tablet 500 mg PO QHS 06/28/22 [History Last Taken Unknown] estradiol 0.01% (0.1 mg/gram) vaginal cream See Rx Instructions vaginal .COMPLEX#42.5 grams 07/24/23 [Rx Last Taken Unknown] mometasone 0.1 % topical ointment 1 applic topical .COMPLEX #15 grams 09/03/23 [Rx Last Taken Unknown] lisinopril 5 mg tablet 5 mg PO DAILY 03/07/24 [History Last Taken Unknown] valacyclovir 500 mg tablet 500 mg PO BID 03/07/24 [History Last Taken Unknown] Allergy/AdvReac Type Severity Reaction Status Date / Time No Known Allergies Allergy Verified 03/07/24 18:27 Family History Mother Cancer Father Diabetes Heart disease Sister Diabetes Surgical History History of carpal tunnel surgery History of colonoscopy History of foot surgery History of lithotripsy Social History housing: house number of children: 0 current occupational status: retired Smoking Status: Current every day smoker tobacco type: e-cigarettes alcohol intake: current alcohol intake frequency: holidays/special occasions only substance use type: does not use seatbelt use: always do you feel safe at home: Yes additional social history: ROS ROS ED ROS Narrative Constitutional: No fever, no chills. HEENT: No sore throat. No neck pain. No loss of vision. No rhinorrhea. Cardiovascular: No chest pain. No palpitations. No pedal edema. Respiratory: No cough, no shortness of breath. Abdominal: No abdominal pain. No nausea. No vomiting. Genitourinary: No dysuria. No hematuria. Musculoskeletal: No myalgias. Left hip and leg pain. Neurologic: No headaches. No dizziness. No lightheadedness. Skin: No rash. No change in color. Psychiatric: No depression. No anxiety. EXAM Physical Exam Narrative Exam Narrative: Afebrile. Vital signs noted. HEENT: Normocephalic. Atraumatic. PERRL, EOMI. Neck soft and supple. No pointtenderness or step off. Cardiovascular: Regular rate and rhythm. No murmurs, rubs, or gallops appreciated. Respiratory: No tachypnea. Lungs clear to auscultation bilaterally. Gastrointestinal: Abdomen soft, nontender, with normoactive bowel sounds. No rebound or guarding. Neurological: Awake. Alert. Nonfocal, nonlateralizing. Skin: No rash. Normal color. No pallor. Musculoskeletal: No pedal edema. Pelvis stable. Diffuse tenderness to palpation left hip. Left leg held in hip flexion along with knee flexion. Palpable dorsalis pedis pulse, left. EHL intact bilaterally. Const Vital Signs: 03/07/24 18:27 03/07/24 18:27 03/07/24 19:58 Temperature 96.2 F L 98.3 F Temperature Source Oral Pulse Rate 77 74 Respiratory Rate 16 16 18 Blood Pressure 166/94 H 150/95 H Blood Pressure Mean 118 113 Pulse Ox 96 91 Oxygen Delivery Method Room Air MDM MDM MDM Narrative Medical decision making narrative: Concern is for left hip fracture versus pelvic fracture versus hip contusion. The way she is holding her leg limits her examination. She was administered morphine and Zofran for analgesia and x-ray of the pelvis and femur were obtained and interpreted by myself independently. I see a intertrochanteric fracture on the lateral view. Given her hip fracture, I ordered a chest x-ray and medical screening laboratories so that she can go to the OR tomorrow. I reviewed her initial laboratory work and she has normal white count of 8.6, hemoglobin normal at 12.2, platelet count normal at 236. I do not feel coagulation studies are warranted as she is not on any blood thinners. Her BUN is elevated at 28 in review and creatinine 1.13, high- sensitivity troponin is 4. EKG interpreted by myself independently demonstrates normal sinus rhythm at 76 bpm without ectopy or acute ST changes. No STEMI. Chest x-ray 1 view interpreted by myself independently shows no acute process, no pneumothorax or pneumonia. Additionally, I interpreted her left femur x-raysand see the proximal femur fracture as seen in the independent interpretation ofthe pelvic x-ray. Initially, I discussed the patient with Dr. Lang with orthopedics who reviewed the x-rays of the hip who agrees with admission to the hospitalist and he will be on consult. I then discussed patient with Dr. Rutherford for admission to the medical surgical floor. Patient is in stable condition. History & Record Review Discussion w/independent historian: Patient Lab Data Attestation: I reviewed the patient's lab results. Labs: Laboratory Results - last 24 hr 03/07/24 18:30 WBC 8.6 RBC 3.59 L Hgb 12.2 Hct 37.5 MCV 104.5 H MCH 34.0 H MCHC 32.5 RDW Std Deviation 50.9 H RDW [place]eff of [place] 13.2 Plt Count 236 MPV 9.9 Immature Gran % (Auto) 0.300 Neut % (Auto) 60.3 Lymph % (Auto) 26.3 [place] % (Auto) 7.1 Eos % (Auto) 5.4 H Baso % (Auto) 0.6 Absolute Neuts (auto) 5.2 Absolute Lymphs (auto) 2.27 Nucleated RBC % 0 Sodium 138 Potassium 4.1 Chloride 107 Carbon Dioxide 25.0 Anion Gap 6 BUN 28 H Creatinine 1.13 H Est GFR (MDRD) Af Amer 61 Est GFR (MDRD) Non-Af 50 L BUN/Creatinine Ratio 24.8 H Glucose 141 H Calcium 9.0 Troponin I High Sens 4 Radiography Chest X-Ray - ED: Read by ED Physician Management Discussion w/another healthcare provider: Hospitalist (Dr. Rutherford) and Environmental Services Specialist (Dr. Lang, orthopedics) Discharge Plan Dx/Rx/DC Orders Clinical Impression: Diabetes, Fall, Closed fracture of left hip Disposition Disposition: Acute Care Hospital [facility] What to do if you have Problems For any increased pain, shortness of breath, bleeding, nausea or vomiting, chestpain, or any unexpected problems, contact your Primary Care Provider. Call [facility] ([phone]) or report to the closest Emergency Room. Call 911 if necessary. 03/07/242005 <Electronically signed by Zafar Zimmer MD> Cosigner Signature (if applicable): CC: Dr. Summer Worrell, ~ Signed [facility] Work Phone: 1(147) 748-409304-14-2024 Discharge summary Author Zafar Zimmer [facility] March 07, 2024 8:06pm Note Date/Time March 07, 2024 6:4 1pm [facility] Health System Medical Records Department [address] [place] [id number] Emergency Department Summary 03/07/24 MR#: [id number] Acct: [id number] Name: SALONI HICKS Rep #: [id number] : 1950 74 From: Zafar Zimmer MD PCP: Dr. Summer Worrell, Status:REG ER Location: ED HPI History of Present Illness Chief Complaint: Lower Extremity Injury Narrative Narrative: 74-year-old female past medical history of type 2 diabetes presents with left hip pain and left leg pain status post fall. She states that she was walking onthe sidewalk, and slipped/tripped and fell onto her left side, injuring her lefthip. She is unable to stand and has pain in her left hip and leg. She is unable to bear weight. She presents via EMS status post fall. She denies hitting her head or loss of consciousness, or other injury. [facility] Medical History Alcohol use Anxiety and depression Arthritis Back problem Carpal tunnel syndrome Cataracts, bilateral Easy bruising GERD (gastroesophageal reflux disease) Goiter H/O: pneumonia HSV (herpes simplex virus) infection Hypertension Hypothyroidism Left renal stone Leg cramps Neuropathy Recurrent UTI Rheumatoid arthritis Seasonal allergies Smoker Stress incontinence TIA (transient ischemic attack) Type 2 diabetes mellitus Vision problems Home Medications bupropion HCl 300 mg 24 hr tablet, extended release (Wellbutrin XL) 300 mg PO QAM 11/20/18 [History Last Taken 07/21/20 05:15] multivitamin with minerals-folic acid 0.4 mg tablet (Adult One Daily Multivitamin) 1 tab PO DAILY 11/20/18 [History Last Taken Unknown] fluticasone propionate 50 mcg/actuation nasal spray,suspension 1 spray NASAL DAILY 06/22/20 [History Last Taken Unknown] loratadine 10 mg capsule 10 mg PO DAILY 06/22/20 [History Last Taken Unknown] metformin 500 mg tablet 1,000 mg PO DAILY 08/04/20 [History Last Taken Unknown] omeprazole 40 mg capsule,delayed release 40 mg PO QHS 10/13/20 [History Last Taken 02/04/22] levothyroxine 175 mcg tablet (Synthroid) 150 mcg PO DAILY 01/30/22 [History Last Taken 07/04/22] metformin 500 mg tablet 500 mg PO QHS 06/28/22 [History Last Taken Unknown] estradiol 0.01% (0.1 mg/gram) vaginal cream See Rx Instructions vaginal .COMPLEX#42.5 grams 07/24/23 [Rx Last Taken Unknown] mometasone 0.1 % topical ointment 1 applic topical .COMPLEX #15 grams 09/03/23 [Rx Last Taken Unknown] lisinopril 5 mg tablet 5 mg PO DAILY 03/07/24 [History Last Taken Unknown] valacyclovir 500 mg tablet 500 mg PO BID 03/07/24 [History Last Taken Unknown] Allergy/AdvReac Type Severity Reaction Status Date / Time No Known Allergies Allergy Verified 03/07/24 18:27 Family History Mother Cancer Father Diabetes Heart disease Sister Diabetes Surgical History History of carpal tunnel surgery History of colonoscopy History of foot surgery History of lithotripsy Social History housing: house number of children: 0 current occupational status: retired Smoking Status: Current every day smoker tobacco type: e-cigarettes alcohol intake: current alcohol intake frequency: holidays/special occasions only substance use type: does not use seatbelt use: always do you feel safe at home: Yes additional social history: ROS ROS ED ROS Narrative Constitutional: No fever, no chills. HEENT: No sore throat. No neck pain. No loss of vision. No rhinorrhea. Cardiovascular: No chest pain. No palpitations. No pedal edema. Respiratory: No cough, no shortness of breath. Abdominal: No abdominal pain. No nausea. No vomiting. Genitourinary: No dysuria. No hematuria. Musculoskeletal: No myalgias. Left hip and leg pain. Neurologic: No headaches. No dizziness. No lightheadedness. Skin: No rash. No change in color. Psychiatric: No depression. No anxiety. EXAM Physical Exam Narrative Exam Narrative: Afebrile. Vital signs noted. HEENT: Normocephalic. Atraumatic. PERRL, EOMI. Neck soft and supple. No pointtenderness or step off. Cardiovascular: Regular rate and rhythm. No murmurs, rubs, or gallops appreciated. Respiratory: No tachypnea. Lungs clear to auscultation bilaterally. Gastrointestinal: Abdomen soft, nontender, with normoactive bowel sounds. No rebound or guarding. Neurological: Awake. Alert. Nonfocal, nonlateralizing. Skin: No rash. Normal color. No pallor. Musculoskeletal: No pedal edema. Pelvis stable. Diffuse tenderness to palpation left hip. Left leg held in hip flexion along with knee flexion. Palpable dorsalis pedis pulse, left. EHL intact bilaterally. Const Vital Signs: 03/07/24 18:27 03/07/24 18:27 03/07/24 19:58 Temperature 96.2 F L 98.3 F Temperature Source Oral Pulse Rate 77 74 Respiratory Rate 16 16 18 Blood Pressure 166/94 H 150/95 H Blood Pressure Mean 118 113 Pulse Ox 96 91 Oxygen Delivery Method Room Air MDM MDM MDM Narrative Medical decision making narrative: Concern is for left hip fracture versus pelvic fracture versus hip contusion. The way she is holding her leg limits her examination. She was administered morphine and Zofran for analgesia and x-ray of the pelvis and femur were obtained and interpreted by myself independently. I see a intertrochanteric fracture on the lateral view. Given her hip fracture, I ordered a chest x-ray and medical screening laboratories so that she can go to the OR tomorrow. I reviewed her initial laboratory work and she has normal white count of 8.6, hemoglobin normal at 12.2, platelet count normal at 236. I do not feel coagulation studies are warranted as she is not on any blood thinners. Her BUN is elevated at 28 in review and creatinine 1.13, high- sensitivity troponin is 4. EKG interpreted by myself independently demonstrates normal sinus rhythm at 76 bpm without ectopy or acute ST changes. No STEMI. Chest x-ray 1 view interpreted by myself independently shows no acute process, no pneumothorax or pneumonia. Additionally, I interpreted her left femur x-raysand see the proximal femur fracture as seen in the independent interpretation ofthe pelvic x-ray. Initially, I discussed the patient with Dr. Lang with orthopedics who reviewed the x-rays of the hip who agrees with admission to the hospitalist and he will be on consult. I then discussed patient with Dr. Rutherford for admission to the medical surgical floor. Patient is in stable condition. History & Record Review Discussion w/independent historian: Patient Lab Data Attestation: I reviewed the patient's lab results. Labs: Laboratory Results - last 24 hr 03/07/24 18:30 WBC 8.6 RBC 3.59 L Hgb 12.2 Hct 37.5 MCV 104.5 H MCH 34.0 H MCHC 32.5 RDW Std Deviation 50.9 H RDW [place]eff of [place] 13.2 Plt Count 236 MPV 9.9 Immature Gran % (Auto) 0.300 Neut % (Auto) 60.3 Lymph % (Auto) 26.3 [place] % (Auto) 7.1 Eos % (Auto) 5.4 H Baso % (Auto) 0.6 Absolute Neuts (auto) 5.2 Absolute Lymphs (auto) 2.27 Nucleated RBC % 0 Sodium 138 Potassium 4.1 Chloride 107 Carbon Dioxide 25.0 Anion Gap 6 BUN 28 H Creatinine 1.13 H Est GFR (MDRD) Af Amer 61 Est GFR (MDRD) Non-Af 50 L BUN/Creatinine Ratio 24.8 H Glucose 141 H Calcium 9.0 Troponin I High Sens 4 Radiography Chest X-Ray - ED: Read by ED Physician Management Discussion w/another healthcare provider: Hospitalist (Dr. Rutherford) and Environmental Services Specialist (Dr. Lang, orthopedics) Discharge Plan Dx/Rx/DC Orders Clinical Impression: Diabetes, Fall, Closed fracture of left hip Disposition Disposition: Acute Care Hospital [facility] What to do if you have Problems For any increased pain, shortness of breath, bleeding, nausea or vomiting, chestpain, or any unexpected problems, contact your Primary Care Provider. Call [facility] ([phone]) or report to the closest Emergency Room. Call 911 if necessary. 03/07/242005 <Electronically signed by Zafar Zimmer MD> Cosigner Signature (if applicable): CC: Dr. Summer Worrell, DO ~ Signed [facility] Work Phone: 1(367) 855-164708-23-2023 History of Present illness Narrative* Feliberto Barone MD - 07/16/2023 2:10 PM EDT UNIVERSAL PROTOCOL / SAFETY CHECKLIST Procedure to [...] Plan of Care Visit completed when applicable. MARCO Alvarez.T Feliberto Barone MD documented [facility] History of Present illness Narrative* Analisa Holden MD - 07/15/2023 1:00 PM EDT Neurology Clinic - July 15, 2023 Reason for visit: Ms. Hicks is referred by Summer Worrell for my opinion regarding abnormal gait, possible PN. My final recommendation will be communicated back to the requesting physician by way of shared medical record or letter. HISTORY OF PRESENT ILLNESS: Patient is a 73 year old, right-handed, White, female with history of anxiety, depression, diabetestype 2, HTN, reflux, HSV, hypothyroidism, smoker, TIA. [...] complication, without long-term current use of insulin ([facility]) 05/08/2017 Diabetic eye exam ([facility]) 07/07/2017 Last done: 06/26/2017 DM (diabetes mellitus) ([facility]) Essential hypertension 03/04/2018 GERD without esophagitis 08/20/2017 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 Hypothyroid Hypothyroidism 05/08/2017 Smoker 08/20/2017 Started at age 16 up to 1 PPD TIA (transient ischemic attack) PAST SURGICAL HISTORY Procedure Laterality Date CATARACT EXT; EYEONICS IOL SYS 11/24/2007 both COLONOSCOPY 05/08/2008 repeat 10 yrs CORRECT BUNION,SIMPLE Bilateral 1997 left HAMMERTOE REVISION, ONE TOE 11/24/1975 right MENISCAL REPAIR SYS,[id number] Right knee PROSTHESIS, BREAST, IMP Bilateral 11/24/1975 [...] Abs Lymph 1.00 - 4.00 k/uL 1.11 [place]% % 7.3 Abs [place] <0.87 k/uL 0.91 (H) Eosin% % 2.9 [...] Neck flexion 5/5 Neck extension 5/5 Trapezius 5/5 5/5 Deltoids 5/5 5/5 Biceps 5/5 5/5 Triceps 5/5 5/5 Wrist Ext 5/5 5/5 Wrist Flex 5/5 5/5 Finger Ext 5/5 5/5 FDI 5/5 5/5 ADM 5/5 5/5 APB 5/5 5/5 FDP 2,3 5/5 5/5 FDP 4,5 5/5 5/5 FPL 5/5 5/5 Hip Flexors 5/5 5/5 Knee Extensors 5/5 5/5 Knee Flexors 5/5 5/5 Ankle DF 5/5 5/5 Ankle PF 5/5 5/5 Inversion 5/5 5/5 Eversion 5/5 5/5 Toe Flexion 5/5 5/5 Toe Extension 4/5 * 45* *- has scars on both big toes Coordination: intact finger to nose and heel to cobb Reflexes: B T Br K A Plantars R 2+ 2+ 2+ 2+ 1+ down L 2+ 2+ 2+ 2+ 1+ down Sensory: intact to light touch, pinprick, position and vibration Romberg's negative ASSESSMENT AND PLAN: Miss Hicks is a 73 y/o female with h/o [...] podiatry PT - wants to go to [facility] Follow-up in 3 months or earlier if necessary. I spent a total of 60 minutes on the date of the service which included preparing to see the patient, [id number] patient care, completing clinical documentation, obtaining and/or reviewing separately obtained history, performing a medically appropriate examination, counseling and educating the pat ient/family/caregiver, and ordering medications, tests, or procedures. My final recommendations will be communicated back to the requesting physician by way of shared medical record or letter via US mail. Analisa Holden MD Neurology Please send a copy of clinic note to: 1. Saloni Silva [facility] [phone] [facility] [id number] 2. Summer Kulkarni [facility] [address] [facility] [address] documented in this encounterSt. [facility] [facility] Discharge summary Author Janel Sweet [facility] July 09, 2023 3:16pm Note Date/Time July 09, 2023 3: 16pm [facility] Physical Therapy [facility] [address] [place] [address]. [address] [place] [address] / REHABILITATION SERVICES DISCHARGE SUMMARY MR#: [id number] Acct: [id number] Name: SALONI HICKS Rep #: [id number] : 1950 73 From: Janel Goel Referring Dr.: Dr. Summer Worrell, DO Status: REG RCR Insurance: [employer] MED[employer] PPO SELF PAY INSURANCE Patient Information Patient Information: SALONI HICKS was seen in my office for initial evaluation on 02/20/23. The following Plan of Care was established for this patient: POC Established Initial Frequency: 2x /Week Initial Duration: 2 Months Anticipated Interventions Patient/Client Instruction: Educate patient on: Condition and Plan of Care For the Purpose of:: To decrease pain, To increase ROM, To improve nutrient delivery to tissue, To improve muscle performance and motor function, To improveability to perform ADL's, To increase tolerance to activity/condition/position, To improve performance and independence with ADL's, To decrease level of supervision to perform tasks, To improve ability of physical actions for home/community/work/leisure, To improve gait and locomotor functions, To improvehealth of tissue, To increase flexibility/ROM, To improve endurance, To improve balance and To improve safety with gait Therapeutic Exercise to Include: Strength training, Endurance training, Balance training, Postural training, Flexibilty training, Gait and locomotor training, Neuromotor development, Active ROM and Dynamic Lumbar Stabilization For the Purpose of:: To decrease pain, To decrease swelling/inflammation, To increase ROM, To improve nutrient delivery to tissue, To improve muscle performance and motor function, To improve ability to perform ADL's, To increasetolerance to activity/condition/position, To improve performance and independence with ADL's, To decrease level of supervision to perform tasks, To improve ability of physical actions for home/community/work/leisure, To improve gait and locomotor functions, To improve health of tissue, To decrease soft tissue restriction, To increase flexibility/ROM, To improve endurance, To improve balance and To improve safety with gait Functional Training to Include: Gait training For the Purpose of:: To improve gait and locomotor functions and To improve safety with gait Last Seen Last Seen: This patient was last seen in our office 04/08/23. Pertinent comments regardingtheir Physical therapy will appear below: ISAIAH PT as pt cancelled her last appt due to back not feeling good. At this point I will be discontinuing this patient from physical therapy. I would be happy to see this patient again in the future if found appropriate by the physician. Thank you! Janel Sweet, YVETTE Balance/Gait/Functional tests Balance/Special Test Scores Functional Gait Assessment Score: 16 % Disability: 46.6700 CATSIB Score (Max score 120 seconds): 100 Lower Extremity Functional Score: 58 <Electronically signed by Janel Sweet MPT> 07/09/23 1516 CC: Dr. Summer Worrell, DO ~ Signed [facility] Work Phone: [phone] 652-882805-05-2023 Miscellaneous Notes* Telephone Encounter - Padmini Emmanuel RN - 03/28/2023 12:15 PM EDT Patient notified of results, verbalizes understanding of instructions. The following approved medications have been transmitted electronically. Requested Prescriptions Signed Prescriptions Disp Refills fluconazole (DIFLUCAN) 150 mg tablet 3 tablet 0 Sig: Take 1 tablet today, then a 2nd tablet in 72 hours, and 3rd tablet in another 72 hours. Authorizing Provider: LEXI BENJAMIN Pharmacy Information Pharmacy Address Telephone [id number] [address] [place] [address] Padmini Emmanuel RN * Telephone Encounter - Lexi Benjamin APRN.CNP - 03/28/2023 12:02 PM EDT Please let the patient know that her vaginal culture show that she does have a yeast infection. I have sent Diflucan in with 3 doses. Lexi Benjamin APRN.CNP 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 History Comments: Sexual Activity: No sexual activity data on record; No partner data on record Contraception: No contraception data on record PAST MEDICAL HISTORY Diagnosis Date Anxiety and depression 08/20/2017 Controlled type 2 diabetes mellitus without complication, without long-term current use of insulin ([facility]) 05/08/2017 Diabetic eye exam ([facility]) 07/07/2017 Last done: 06/26/2017 DM (diabetes mellitus) ([facility]) Essential hypertension 03/04/2018 GERD without esophagitis 08/20/2017 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 Hypothyroid Hypothyroidism 05/08/2017 Smoker 08/20/2017 Started at age 16 up to 1 PPD TIA (transient ischemic attack) PAST SURGICAL HISTORY Procedure Laterality Date CATARACT EXT; EYEONICS IOL SYS 11/24/2007 both COLONOSCOPY 05/08/2008 repeat 10 yrs CORRECT BUNION,SIMPLE Bilateral 1997 left HAMMERTOE REVISION, ONE TOE 11/24/1975 right MENISCAL REPAIR SYS,,[id number] Right knee PROSTHESIS, BREAST, IMP Bilateral 11/24/1975 [...] external genitalia normal, normal Bartholin's glands, urethra, [place]'s glands, no vulvar lesions, normal appearing perineal body and perianal region, labia minora red and slightly swollen, thick yellow/white discharge BIMANUAL: Moderate tenderness NEURO: alert and oriented x3,exam grossly non-focal EXTREMITIES: normal ASSESSMENT/PLAN: 1. Vaginal irritation - ICD9: 623.9, ICD10: N89.8 - JOAN / TRICHOMONAS AMPLIFICATION - BACTERIAL VAGINOSIS AMPLIFICATION Will notify of results Lexi Benjamin APRN.CNP Medical Decision Making: Problems: Moderate: New problem with uncertain prognosis Data: Unique test(s) ordered: 2 Risk: Low: Low risk from testing/treatment Medical Decision Making Level: 3 - Low documented in this encounterSt[facility] History of Past illness Narrative* Problem Noted Date Resolved Date Accidental ingestion of caustic alkali 9 02/13/2019 documented as of this encounter (statuses as of 03/27/2023) [facility] History of Past illness Narrative* Problem Noted Date Resolved Date Accidental ingestion of caustic alkali 9 02/13/2019 documented as of this encounter (statuses as of 03/28/2023) [facility] History of Past illness Narrative* Problem Noted Date Diagnosed Date Resolved Date Accidental ingestion of caustic alkali 02/13/2019 02/13/2019 documented as of this encounter (statuses as of 07/15/2023) [facility] History of Past illness Narrative* Problem Noted Date Diagnosed Date Resolved Date Accidental ingestion of caustic alkali 02/13/2019 02/13/2019 documented as of this encounter (statuses as of 07/17/2023) [facility] Author Iesha Escalera [facility] March 11, 2024 1:17pm Note Date/Time March 11, 2024 1:1 7pm [facility] Medical Records Department [address] [place] [address] Counseling Note - Pharmacy 03/11/24 1317 MR#: [id number] Acct: [id number] Name: SALONI HICKS Rep #: [id number] : 1950 74 From: Iesha Escalera PCP: Dr. Summer Worrell, DO Status:ADM IN Y [facility] [place] [facility] Pharmacy Service has performed discharge medication reconciliation for this patient upon transfer to TCU The patient's discharge medication list was reviewed for discrepancies and discrepancies were resolved. Medications at Discharge Home Medications bupropion HCl 300 mg 24 hr tablet, extended release (Wellbutrin XL) 300 mg PO QAM 11/20/18 multivitamin with minerals-folic acid 0.4 mg tablet (Adult One Daily Multivitamin) 1 tab PO DAILY 11/20/18 fluticasone propionate 50 mcg/actuation nasal spray,suspension 1 spray NASAL DAILY 06/22/20 loratadine 10 mg capsule 10 mg PO DAILY 06/22/20 metformin 500 mg tablet 1,000 mg PO DAILY 08/04/20 omeprazole 40 mg capsule,delayed release 40 mg PO QHS 10/13/20 levothyroxine 175 mcg tablet (Synthroid) 150 mcg PO DAILY 01/30/22 metformin 500 mg tablet 500 mg PO QHS 06/28/22 estradiol 0.01% (0.1 mg/gram) vaginal cream See Rx Instructions vaginal .COMPLEX#42.5 grams 07/24/23 mometasone 0.1 % topical ointment 1 applic topical .COMPLEX #15 grams 09/03/23 lisinopril 5 mg tablet 5 mg PO DAILY 03/07/24 valacyclovir 500 mg tablet 500 mg PO BID 03/07/24 acetaminophen 500 mg tablet 1,000 mg (2 x 500 mg) PO Q8 #0 tabs 03/11/24 calcium carbonate 500 mg (2.5 x 200 mg calcium (500 mg)) PO TIDCM #0 tabs 03/11/24 cyclobenzaprine 5 mg tablet 5 mg PO TID PRN PRN Muscle Spasm #0 tabs 03/11/24 enoxaparin 40 mg/0.4 mL subcutaneous syringe 40 mg (0.4 mL) subcut DAILY@0600 28days #4 mL 03/11/24 ergocalciferol (vitamin D2) 1,250 mcg (50,000 unit) capsule (Vitamin D2) 1,250 mcg PO Q7D #7 caps 03/11/24 oxycodone 5 mg tablet 10 mg (2 x 5 mg) PO Q6H PRN pain 3 days #12 tabs 03/11/24 sennosides 8.6 mg-docusate sodium 50 mg tablet (Stool Softener-Stimulant Laxative) 2 tab PO BID PRN PRN Constipation #0 tabs 03/11/24 03/11/24 1317 <Electronically signed by Iesha Escalera > Date _ Iesha Escalera Cosigner Signature (if applicable): Date CC: ~ Signed [facility] Work Phone: Evaluation noteNo assessment information available [facility] Work Phone: Evaluation note* Diagnosis Vaginal irritation- Primary Unspecified noninflammatory disorder of vagina [facility] Diagnosis Onset Date Resolution Status Atrophic vaginitis acute Dermatitis acute [facility] Work Phone: Evaluation note* Diagnosis Gait instability- Primary Abnormality of gait [facility] Diagnosis Gait instability Abnormality of gait [facility] Diagnosis Onset Date Resolution Status Atrophic vaginitis acute Vaginal discharge acute [facility] Work Phone: Evaluation note* Diagnosis Onset Date Resolution Status Atrophic vaginitis acute Vaginal discharge acute Atrophic vaginitis acute Lichen sclerosus acute [facility] Work Phone: Evaluation note* Diagnosis Onset Date Resolution Status Atrophic vaginitis acute Vaginal discharge acute Atrophic vaginitis acute Lichen sclerosus acute DDD (degenerative disc disease), lumbar acute Spinal stenosis in cervical region acute Spinal stenosis of lumbar region at multiple levels acute [facility] Work Phone: Evaluation note* Diagnosis Onset Date Resolution Status Atrophic vaginitis acute Lichen sclerosus acute DDD (degenerative disc disease), lumbar acute Spinal stenosis in cervical region acute Spinal stenosis of lumbar region at multiple levels acute Primary localized osteoarthritis of hips, bilateral acute [facility] Work Phone: Evaluation note* Diagnosis Onset Date Resolution Status DDD (degenerative disc disease), lumbar acute Spinal stenosis in cervical region acute Spinal stenosis of lumbar region at multiple levels acute Primary localized osteoarthritis of hips, bilateral acute [facility] Work Phone: Evaluation note* Diagnosis Onset Date Resolution Status Primary localized osteoarthritis of hips, bilateral acute Closed fracture of left hip acute Diabetes acute Fall acute [facility] Work Phone: Evaluation note* Diagnosis Onset Date Resolution Status Primary localized osteoarthritis of hips, bilateral acute Closed fracture of left hip acute Diabetes acute Fall acute Peripheral neuropathy acute [facility] Work Phone: Evaluation note* Diagnosis Onset Date Resolution Status Closed fracture of left hip acute Diabetes acute Fall acute Peripheral neuropathy acute Allergic rhinitis acute Atrophic vaginitis acute Closed fracture of left hip acute Debility acute Depression acute Diabetes mellitus type 2 in nonobese acute Essential (primary) hypertension acute Fall acute GERD (gastroesophageal reflux disease) acute HSV (herpes simplex virus) infection acute Hypothyroidism acute [facility] Work Phone: Evaluation note* Diagnosis Onset Date Resolution Status Closed fracture of left hip resolved Fall resolved Allergic rhinitis acute Debility acute Depression acute Diabetes mellitus type 2 in nonobese acute Essential (primary) hypertension acute GERD (gastroesophageal reflux disease) acute Hypothyroidism acute Closed fracture of left hip resolved Fall resolved [facility] Work Phone: Evaluation note* Diagnosis Paresthesia of skin- Primary Disturbance of skin sensation Cerebral infarction, unspecified mechanism (HCC) Generalized weakness Other malaise and fatigue Frequent falls Personal history of fall [facility] Diagnosis Cerebral infarction, unspecified mechanism (HCC) Frequent falls Personal history of fall [facility]* Diagnosis Frequent falls- Primary Personal history of fall Paresthesia of skin Disturbance of skin sensation Generalized weakness Other malaise and fatigue NPH (normal pressure hydrocephalus) (HCC) Idiopathic normal pressure hydrocephalus (INPH) Memory loss [facility]* Diagnosis Cervical spondylosis with myelopathy- Primary Neuropathy Mononeuritis of unspecified site Radiculopathy, lumbar region Thoracic or lumbosacral neuritis or radiculitis, unspecified Multifactorial gait disorder Abnormality of gait Spastic dysarthria Dysarthria Spinal stenosis of cervical region Spinal stenosis in cervical region Decline in verbal memory Unspecified ptosis of right eyelid History of falling Personal history of fall [facility]* Diagnosis Decreased personal development coach strength of right hand- Primary Cervical spondylosis with myelopathy Neuropathy Mononeuritis of unspecified site [facility]* Diagnosis Spastic dysarthria Dysarthria documented [facility]* Diagnosis Radiculopathy, cervical region- Primary Brachial neuritis or radiculitis nos Cervical spondylosis with myelopathy Neuropathy Mononeuritis of unspecified site Radiculopathy, lumbar region Thoracic or lumbosacral neuritis or radiculitis, unspecified Multifactorial gait disorder Abnormality of gait [facility]* Diagnosis Spinal stenosis of cervical region Spinal stenosis in cervical region [facility]* Diagnosis Vulvar irritation- Primary Other specified noninflammatory disorder of vulva and perineum Vulvar burning Unspecified symptom associated with female genital organs Postmenopausal Asymptomatic postmenopausal status (age-related) (natural) Vaginal atrophy Postmenopausal atrophic vaginitis Vaginal discharge Leukorrhea, not specified as infective [facility] Author Jared Wells [facility] March 19, 2024 12:16pm Note Date/Time March 19, 2024 12: 16pm [facility] Medical Records Department [address] [place] [address] History & Physical Exam 03/19/24 1215 MR#: [id number] Acct: [id number] Name: SALONI HICKSCHRISS Rep #: [id number] : 1950 74 From: Jared Wells DO PCP: Dr. Summer Worrell, Status:[facility] Location: [place] [address] History and Physical Date of Admission: 03/19/24 Reason for Consultation: Anemia HPI Narrative: SALONI HICKS, is a 74 F with a past medical history of essential hypertension,hypothyroidism; with history of goiter, DM-2; of unknown control on Metformin, peripheral neuropathy; with chronically poor balance and increasingly frequent falls, history of tobacco abuse, history of HSV, history of TIA (2011), RA, history of recurrent UTI's, history of atrophic vaginitis, history of renal calculi; with subsequent stent and lithotripsy, depression, GERD and chronic back pain who presents to [facility] ER complaining of Left hip pain after fall. Ms. Hicks reports her symptoms began approximately one hour prior to arrival when she lost her balance and fell while she was walking on a sidewalk while trying to work in her yard causing her to land on her Left hip and side with subsequent severe pain and inability to ambulate, stand up or even bear weight on her Left leg. She denies LOC or injuring her head with the fall but she does admit falling off the narrow steps of the porch of her home ~4 weeks ago. She also denies related fever, chills, nausea, vomiting, diarrhea, constipation, chest pain, SOB, recent medication changes, recent illness, history of CAD or chest pain with activity. In the ER her X-rays were positive for Left hip fracture. She underwent fracture repair and was sent to TCU prior to her going home. Since being in theTCU her hemoglobin dropped down to 7.4 from 13. She was given transfusion of packed red blood cells and her stool was checked for blood and there were positive. She is on heparin for DVT prophylaxis. I was consulted due to suspected GI bleed. [facility] Medical History (Updated 03/11/24 @ 22:[address] Moise Glez MD) Alcohol use Anxiety and depression Arthritis Back pain due to injury Back problem Carpal tunnel syndrome Cataracts, bilateral Easy bruising GERD (gastroesophageal reflux disease) Goiter H/O: pneumonia History of stress test HSV (herpes simplex virus) infection Hypertension Hypothyroidism Kidney stones Left renal stone Leg cramps Neuropathy Recurrent UTI Rheumatoid arthritis Seasonal allergies Smoker Stress incontinence Stroke/cerebrovascular accident Syncope TIA (transient ischemic attack) Type 2 diabetes mellitus Vision problems Home Medications bupropion HCl 300 mg 24 hr tablet, extended release (Wellbutrin XL) 300 mg PO QAM depression 11/20/18 [History Last Taken 07/21/20 05:15] multivitamin with minerals-folic acid 0.4 mg tablet (Adult One Daily Multivitamin) 1 tab PO DAILY vitamin 11/20/18 [History Last Taken Unknown] fluticasone propionate 50 mcg/actuation nasal spray,suspension 1 spray NASAL DAILY allergies 06/22/20 [History Last Taken Unknown] loratadine 10 mg capsule 10 mg PO DAILY allergie 06/22/20 [History Last Taken Unknown] metformin 500 mg tablet 1,000 mg PO DAILY diabetes 08/04/20 [History Last Taken Unknown] omeprazole 40 mg capsule,delayed release 40 mg PO QHS acid reflux 10/13/20 [History Last Taken 02/04/22] levothyroxine 175 mcg tablet (Synthroid) 150 mcg PO DAILY hypothyroid 01/30/22 [History Last Taken 07/04/22] metformin 500 mg tablet 500 mg PO QHS diabetes 06/28/22 [History Last Taken Unknown] estradiol 0.01% (0.1 mg/gram) vaginal cream See Rx Instructions vaginal .COMPLEX vaginitis #42.5 grams 07/24/23 [Rx Last Taken Unknown] mometasone 0.1 % topical ointment 1 applic topical .COMPLEX ? #15 grams 09/03/23 [Rx Last Taken Unknown] lisinopril 5 mg tablet 5 mg PO DAILY BP 03/07/24 [History Last Taken Unknown] valacyclovir 500 mg tablet 500 mg PO BID antibiotic 03/07/24 [History Last Taken Unknown] acetaminophen 500 mg tablet 1,000 mg (2 x 500 mg) PO Q8 pain #0 tabs 03/11/24 [Rx Last Taken Unknown] calcium carbonate 500 mg (2.5 x 200 mg calcium (500 mg)) PO TIDCM acid reflux/indigestion #0 tabs 03/11/24 [Rx Last Taken Unknown] cyclobenzaprine 5 mg tablet 5 mg PO TID PRN PRN Muscle Spasm #0 tabs 03/11/24 [Rx Last Taken Unknown] enoxaparin 40 mg/0.4 mL subcutaneous syringe 40 mg (0.4 mL) subcut DAILY@0600 blood thinner/post surgery 28 days #4 mL 03/11/24 [Rx Last Taken Unknown] ergocalciferol (vitamin D2) 1,250 mcg (50,000 unit) capsule (Vitamin D2) 1,250 mcg PO Q7D supplement #7 caps 03/11/24 [Rx Last Taken Unknown] oxycodone 5 mg tablet 10 mg (2 x 5 mg) PO Q6H PRN pain (scale score 6-10) 3 days #12 tabs 03/11/24 [Rx Last Taken Unknown] sennosides 8.6 mg-docusate sodium 50 mg tablet (Stool Softener-Stimulant Laxative) 2 tab PO BID PRN PRN Constipation #0 tabs 03/11/24 [Rx Last Taken Unknown] Allergy/AdvReac Type Severity Reaction Status Date / Time No Known Allergies Allergy Verified 03/08/24 12:38 Family History Mother CancerFather Diabetes Heart diseaseSister Diabetes Surgical History History of carpal tunnel surgery History of colonoscopy History of foot surgery History of lithotripsy Social History (Updated 03/11/24 @ 22:[address] Moise Glez MD) household members: none housing: house number of children: 0 current occupational status: retired Smoking Status: Current every day smoker tobacco type: cigarettes alcohol intake: current alcohol intake frequency: holidays/special occasions only substance use type: does not use seatbelt use: always do you feel safe at home: Yes additional social history: ROS Constitutional Constitutional: Denies chills, fever(s) or weight gain ENT HEENT: Denies headache(s), nasal congestion or nasal discharge Cardiovascular Cardiovascular: Denies chest pain or palpitations Respiratory/Chest Respiratory/Chest: Denies cough, excessive phlegm production or shortness of breath with exertion Gastrointestinal Gastrointestinal: Denies abdominal pain, nausea or vomiting Genitourinary Genitourinary: Denies dysuria Musculoskeletal Musculoskeletal: Reports other Details: Left hip pain. ; Denies joint pain or joint swelling Integumentary Integumentary: Denies rash or wounds Neurologic Neurologic: Denies focal weakness, numbness or tingling Psychiatric Psychiatric: Denies anxiety, auditory hallucinations, depression, homicidal ideation or suicidal ideation Physical Exam Const alert General Appearance: cooperative HEENT normocephalic Eyes PERRL and EOMs intact bilaterally Neck supple, no JVD and no carotid bruits Resp normal respiratory effort, normal air movement and clear to auscultation bilaterally Cardio regular rate and regular rhythm GI normal to inspection, nondistended, normoactive bowel sounds, non-tender and non-distended Extremity normal capillary refill General Extremity: Negative for edema Skin no rashes or lesions noted General Skin Exam: no breakdown Psych affect normal Appearance: appropriate Lab / Micro Data 03/17/24 05:15 03/12/24 04:57 Labs: Laboratory Results - last 24 hr 03/18/24 05:55: POC Glucose 129 H Assessment & Plan Assessment/Plan (1) Debility: (2) Fall: QUALIFIERS: Encounter type: initial encounter Qualified Code(s): W19.XXXA - Unspecified fall, initial encounter (3) Closed fracture of left hip: QUALIFIERS: Encounter type: initial encounter Qualified Code(s): S72.002A - Fracture of unspecified part of neck of left femur, initial encounterfor closed fracture (4) Diabetes mellitus type 2 in nonobese: (5) Depression: (6) Allergic rhinitis: (7) GERD (gastroesophageal reflux disease): (8) Hypothyroidism: (9) Atrophic vaginitis: (10) Essential (primary) hypertension: (11) HSV (herpes simplex virus) infection: PLAN: Plan 74 year old female with below past medical history hospitalized for left hip fracture, underwent left femur IM nail fixation 03/08/[address] Lang, admitted to TCU with debility, here for rehabilitation, strengthening, prior to discharge home alone. She currently has presumed blood loss anemia possibly secondary to GI blood loss. Recommend upper endoscopy to evaluate her upper GI tract due to her recent surgery. She was explained alternatives, risk, benefitsincluding not withstanding bleeding, infection, sepsis, perforation, need for emergent surgery and . She will have an ASA of 3. 03/19/24 1216 <Electronically signed by Jared Wells DO> Cosigner Signature (if applicable): CC: Dr. Summer Worrell, ; Jared Wells DO~ Signed [facility] Work Phone: Reason for visit Narrative* Outpatient Procedure (Routine) - Closed Specialty Diagnoses / Procedures Referred By Sravanthi goel Referred To [facility] Diagnoses Gait instability Procedures EMG(NEURO/NI) NERVE CONDUCTION STUDIES 9-10 STUDIES Ad[place], [place] [address] [place] [address] [facility] [place] [address] [place] [address] Referral ID Status Reason Start Date Expiration Date V isits Requested Visits Authorized [id number] Closed Auto-Generate d Referral 07/15/2023 07/15/2024 1 1 [facility] for visit Narrative* MRI/CT (Routine) - Closed Specialty Diagnoses / Procedures Referred By Sravanthi goel Referred To Contact MR IMAGING Diagnoses Cerebral infarction, unspecified mechanism (HCC) Frequent falls Procedures MRI BRAIN WO IVCON MRI BRAIN BRAIN STEM W/O CONTRAST MATERIAL Denisha Steiner PA-C [address] [place] [address] Phone: tel: fax: [place] [address] Referral ID Status Reason Start Date Expiration Date V isits Requested Visits Authorized [id number] Closed Auto-Generate d Referral 01/12/2025 03/13/[address] MRI/CT (Routine) - Closed Specialty Diagnoses / Procedures Referred By Contac t Referred To Contact MR IMAGING Diagnoses Spinal stenosis of cervical region Procedures MRI CERVICAL SPINE WO IVCON MRI SPINAL CANAL CERVICAL W/O CONTRAST MATRL Darren Mercado MD [address] [place] [address] Phone: tel: fax: [place] [id number] Referral ID Status Reason Start Date Expiration Date V isits Requested Visits Authorized [id number] Closed Auto-Generate d Referral 07/27/2025 09/25/[address] [facility] Family History No Family History Records Found Relationship Condition Age at Onset Recorded Date/T gian mother Malignant neoplasm Unknown father Diabetes mellitus Unknown Cardiac disease Unknown sister Diabetes mellitus Unknown Advance Directives No Advanced Directives Records Found Advance Directive Response Recorded Date/ Time Living Will Yes June 28, 2022 8:52am Power of Tractor Operator Yes June 28 8:52am Advance Directive Response Recorded Date/ Time Living Will Yes June 28, 2022 8:52am Power of Tractor Operator Yes June 28 8:52am Name of Medical Power of Tractor Operator LYN Boogie June 28, 2022 8:52am Advance Directive Response Recorded Date/ Time Living Will Yes June 28, 2022 7:52am Power of Tractor Operator Yes June 28 7:52am Advance Directive Response Recorded Date/ Time Name of Medical Power of Tractor Operator Christiano April 17, 2023 1:39pm Living Will Yes April 17, 2023 1 :39pm Power of Tractor Operator Yes April 17, 2023 1:39pm Advance Directive Response Recorded Date/ Time Living Will Yes July 23 9:27am Power of Tractor Operator Yes July 23, 023 9:27am Name of Medical Power of Tractor Operator Christiano April 17, 2023 1:39pm Advance Directive Response Recorded Date/ Time Living Will Yes July 23 9:27am Power of Tractor Operator Yes July 23, 023 9:27am Advance Directive Response Recorded Date/ Time Living Will Yes July 23 8:27am Power of Tractor Operator Yes July 23 023 8:27am Advance Directive Response Recorded Date/ Time Name of Medical Power of Tractor Operator . January 27, 2024 10:59pm Living Will Yes January 27, 2024 10:59pm Power of Tractor Operator Yes January 26 10:59pm Advance Directive Response Recorded Date/ Time Name of Medical Power of Tractor Operator . January 27, 2024 10:59pm Name of Medical Power of Tractor Operator sister christiano morgan March 07, 2024 6:31pm Living Will Yes March 07, 2024 6:31pm Power of Tractor Operator Yes March 07 6:31pm Advance Directive Response Recorded Date/ Time Name of Medical Power of Tractor Operator . January 27, 2024 10:59pm Name of Medical Power of Tractor Operator SISTER March 07, 2024 10:36pm Living Will Yes March 07, 2024 10:36pm Power of Tractor Operator Yes March 07 10:36pm Advance Directive Response Recorded Date/ Time Name of Medical Power of Tractor Operator . January 27, 2024 10:59pm Name of Medical Power of Tractor Operator SISTER March 07, 2024 10:36pm Name of Medical Power of Tractor Operator Roxane ANGEL OY FRIEND March 11, 2024 1:51pm Living Will Yes March 11, 2024 1:51pm Power of Tractor Operator Yes March 11 1:51pm Advance Directive Response Recorded Date/ Time Name of Medical Power of Tractor Operator . January 27, 2024 10:59pm Name of Medical Power of Tractor Operator SISTER March 07, 2024 10:36pm Name of Medical Power of Tractor Operator Lucas Mendez March 16, 2024 5:59pm Living Will Yes March 16, 2024 5:59pm Power of Tractor Operator Yes March 16 5:59pm Chief Complaint and Reason for Visit Chief Complaint MIDURETHRAL SLING Chief Complaint 2 WK FU SPINAL STENOSIS DIZZINESS / RX HERE FALL RECURRENT FALLS, [employer] Reason for Visit Atrophic vaginitis Dermatitis Chief Complaint SPINAL STENOSIS DIZZ INESS / RX HERE FALL RECURRENT FALLS, [employer] Chief Complaint SPINAL STENOSIS DIZZ INESS / RX HERE FALL RECURRENT FALLS, [employer] vaginal infection Reason for Visit Atrophic vaginitis Vaginal discharge Chief Complaint RECURRENT FALLS, [employer] vaginal infection increased issues WEAK, ABN SENSATION RT LEG, SMOKER,DECREASED PULSE Reason for Visit Atrophic vaginitis Vaginal discharge Atrophic vaginitis Lichen sclerosus Chief Complaint vaginal infection increased issues WEAK, ABN SENSATION RT LEG, SMOKER,DECREASED PULSE Spinal stenosis, lumbar region without neurogenic Reason for Visit Atrophic vaginitis Vaginal discharge Atrophic vaginitis Lichen sclerosus Chief Complaint vaginal infection increased issues WEAK, ABN SENSATION RT LEG, SMOKER,DECREASED PULSE Spinal stenosis, lumbar region without neurogenic LUMBAR SPINE RM 2 OTHER MOTOR NEURONS DISEASE Reason for Visit Atrophic vaginitis Vaginal discharge Atrophic vaginitis Lichen sclerosus DDD (degenerative disc disease), lumbar Spinal stenosis in cervical region Spinal stenosis of lumbar region at multiple levels Chief Complaint increased issues WEAK, ABN SENSATION RT LEG, SMOKER,DECREASED PULSE Spinal stenosis, lumbar region without neurogenic LUMBAR SPINE RM 2 OTHER MOTOR NEURONS DISEASE LUMBAR SPINE RM 2 SPINAL STENOSIS,DIZZINESS RX HERE Reason for Visit Atrophic vaginitis Lichen sclerosus DDD (degenerative disc disease), lumbar Spinal stenosis in cervical region Spinal stenosis of lumbar region at multiple levels Primary localized osteoarthritis of hips, bilateral Chief Complaint Spinal stenosis, lum bar region without neurogenic LUMBAR SPINE RM 2 OTHER MOTOR NEURONS DISEASE LUMBAR SPINE RM 2 SPINAL STENOSIS,DIZZINESS RX HERE Reason for Visit DDD (degenerative di sc disease), lumbar Spinal stenosis in cervical region Spinal stenosis of lumbar region at multiple levels Primary localized osteoarthritis of hips, bilateral Chief Complaint LUMBAR SPINE RM 2 OTHER MOTOR NEURONS DISEASE LUMBAR SPINE RM 2 SPINAL STENOSIS,DIZZINESS RX HERE wound check Reason for Visit DDD (degenerative di sc disease), lumbar Spinal stenosis in cervical region Spinal stenosis of lumbar region at multiple levels Primary localized osteoarthritis of hips, bilateral Chief Complaint OTHER MOTOR NEURONS DISEASE LUMBAR SPINE RM 2 wound check SPINAL STENOSIS,DIZZINESS RX HERE LEFT HIP FRACTURE AFTER MECHANICAL FALL Reason for Visit Primary localized os teoarthritis of hips, bilateral Closed fracture of left hip Diabetes Fall Chief Complaint LUMBAR SPINE RM 2 wound check SPINAL STENOSIS,DIZZINESS RX HERE LEFT HIP FRACTURE AFTER MECHANICAL FALL Reason for Visit Primary localized os teoarthritis of hips, bilateral Closed fracture of left hip Diabetes Fall Peripheral neuropathy Chief Complaint LUMBAR SPINE RM 2 wound check SPINAL STENOSIS,DIZZINESS RX HERE LEFT HIP FRACTURE AFTER MECHANICAL FALL LEFT HIP FRACTURE AFTER MECHANICAL FALL LEFT HIP FRACTURE AFTER MECHANICAL FALL LEFT HIP FRACTURE AFTER MECHANICAL FALL LEFT HIP FRACTURE AFTER MECHANICAL FALL Reason for Visit Primary localized os teoarthritis of hips, bilateral Closed fracture of left hip Diabetes Fall Peripheral neuropathy Chief Complaint wound check SPINAL STENOSIS,DIZZINESS RX HERE LEFT HIP FRACTURE AFTER MECHANICAL FALL LEFT HIP FRACTURE AFTER MECHANICAL FALL LEFT HIP FRACTURE AFTER MECHANICAL FALL LEFT HIP FRACTURE AFTER MECHANICAL FALL LEFT HIP FRACTURE AFTER MECHANICAL FALL LEFT HIP FRACTURE STATUS POST FALL BLOOD TRANSFUSION Reason for Visit Closed fracture of l eft hip Diabetes Fall Peripheral neuropathy Allergic rhinitis Atrophic vaginitis Closed fracture of left hip Debility Depression Diabetes mellitus type 2 in nonobese Essential (primary) hypertension Fall GERD (gastroesophageal reflux disease) HSV (herpes simplex virus) infection Hypothyroidism Chief Complaint wound check SPINAL STENOSIS,DIZZINESS RX HERE LEFT HIP FRACTURE AFTER MECHANICAL FALL LEFT HIP FRACTURE AFTER MECHANICAL FALL LEFT HIP FRACTURE AFTER MECHANICAL FALL LEFT HIP FRACTURE AFTER MECHANICAL FALL LEFT HIP FRACTURE AFTER MECHANICAL FALL LEFT HIP FRACTURE STATUS POST FALL BLOOD TRANSFUSION LEFT HIP FRACTURE STATUS POST FALL Reason for Visit Closed fracture of l eft hip Fall Allergic rhinitis Debility Depression Diabetes mellitus type 2 in nonobese Essential (primary) hypertension GERD (gastroesophageal reflux disease) Hypothyroidism Closed fracture of left hip Fall Reason for Referral Specialty Diagnoses / Procedures Referred By Sravanthi goel Referred To [facility] Diagnoses Gait instability Procedures CONSULT TO PHYSICAL THERAPY PHYSICAL THERAPY EVALUATION HIGH COMPLEX 45 [place] [address] [place] [address] [facility] [address] [address] Referral ID Status Reason Start Date Expiration Date Visits Requested Visits Authorized [id number] Pending Review Auto-Generat ed Referral 07/15/2023 07/14/2024 1 1 Specialty Diagnoses / Procedures Referred By Sravanthi goel Referred To [facility] [place] Diagnoses Gait instability Procedures EMG(NEURO/NI) NERVE CONDUCTION STUDIES 9-[place] [address] [place] [address] [facility] [place] [address] [place] [id number] Referral ID Status Reason Start Date Expiration Date Visits Requested Visits Authorized [id number] Authorized Auto-Generat ed Referral 07/15/2023 07/15/2024 1 1 Summary Purpose Additional Source Comments Goals (unrecognized section and content) Goals may be documented in a n alternate sectionGoals may be documented in an alternate sectionGoals may be documented in an alternate sectionGoals may be documented in an alternate sectionGoals may be documented in an alternate sectionGoals may be documented in an alternate sectionGoals may be documented in an alternate sectionGoals may be documented in an alternate sectionGoals may be documented in an alternate sectionGoals may be documented in an alternate sectionGoals may be documented in an alternate sectionGoals may be documented in an alternate sectionGoals may be documented in an alternate section Source Comments (unrecognize d section and content) In the event this informatio n is protected by the Federal Confidentiality of Alcohol and Drug Abuse Patient Records regulations: The Federal rules restrict any use of the information to criminally investigate or prosecute any alcohol or drug abuse patient.[facility] the event this information is protected by the Federal Confidentiality of Alcohol and Drug Abuse Patient Records regulations: The Federal rules restrict any use of the information to criminally investigate or prosecute any alcohol or drug abuse patient.[facility] the event this information is protected by the Federal Confidentiality of Alcohol and Drug Abuse Patient Records regulations: The Federal rules restrict any use of the information to criminally investigate or prosecute any alcohol or drug abuse patient.[facility] the event this information is protected by the Federal Confidentiality of Alcohol and Drug Abuse Patient Records regulations: The Federal rules restrict any use of the information to criminally investigate or prosecute any alcohol or drug abuse patient.[facility] the event this information is protected by the Federal Confidentiality of Alcohol and Drug Abuse Patient Records regulations: The Federal rules restrict any use of the information to criminally investigate or prosecute any alcohol or drug abuse patient.[facility] the event this information is protected by the Federal Confidentiality of Alcohol and Drug Abuse Patient Records regulations: The Federal rules restrict any use of the information to criminally investigate or prosecute any alcohol or drug abuse patient.[facility] the event this information is protected by the Federal Confidentiality of Alcohol and Drug Abuse Patient Records regulations: The Federal rules restrict any use of the information to criminally investigate or prosecute any alcohol or drug abuse patient.[facility] the event this information is protected by the Federal Confidentiality of Alcohol and Drug Abuse Patient Records regulations: The Federal rules restrict any use of the information to criminally investigate or prosecute any alcohol or drug abuse patient.[facility] the event this information is protected by the Federal Confidentiality of Alcohol and Drug Abuse Patient Records regulations: The Federal rules restrict any use of the information to criminally investigate or prosecute any alcohol or drug abuse patient.[facility] the event this information is protected by the Federal Confidentiality of Alcohol and Drug Abuse Patient Records regulations: The Federal rules restrict any use of the information to criminally investigate or prosecute any alcohol or drug abuse patient.[facility] the event this information is protected by the Federal Confidentiality of Alcohol and Drug Abuse Patient Records regulations: The Federal rules restrict any use of the information to criminally investigate or prosecute any alcohol or drug abuse patient.[facility] the event this information is protected by the Federal Confidentiality of Alcohol and Drug Abuse Patient Records regulations: The Federal rules restrict any use of the information to criminally investigate or prosecute any alcohol or drug abuse patient.[facility] the event this information is protected by the Federal Confidentiality of Alcohol and Drug Abuse Patient Records regulations: The Federal rules restrict any use of the information to criminally investigate or prosecute any alcohol or drug abuse patient.[facility] the event this information is protected by the Federal Confidentiality of Alcohol and Drug Abuse Patient Records regulations: The Federal rules restrict any use of the information to criminally investigate or prosecute any alcohol or drug abuse patient.[facility] CampusIn the event this information is protected by the Federal Confidentiality of Alcohol and Drug Abuse Patient Records regulations: The Federal rules restrict any use of the information to criminally investigate or prosecute any alcohol or drug abuse patient.[facility] CampusIn the event this information is protected by the Federal Confidentiality of Alcohol and Drug Abuse Patient Records regulations: The Federal rules restrict any use of the information to criminally investigate or prosecute any alcohol or drug abuse patient.[facility]In the event this information is protected by the Federal Confidentiality of Alcohol and Drug Abuse Patient Records regulations: The Federal rules restrict any use of the information to criminally investigate or prosecute any alcohol or drug abuse patient.[facility] CampusIn the event this information is protected by the Federal Confidentiality of Alcohol and Drug Abuse Patient Records regulations: The Federal rules restrict any use of the information to criminally investigate or prosecute any alcohol or drug abuse patient.[facility] Reason for Visit (unrecogniz ed section and content) Reason Comments Vaginal Problem Reason Comments Results Reason Comments Consult Reason Comments New Patient Evaluation Reason Comments Patient Update Reason Onset Date Comments Results 01/13/2025 Reason Comments Follow Up Reason Comments normal pressure hydrocephalus Specialty Diagnoses / Procedures Referred By Contac t Referred To Contact Neurosurgery Diagnoses NPH (normal pressure hydrocephalus) (HCC) Procedures CONSULT TO NEUROSURGERY OFFICE/OUTPATIENT [facility] 60 MINUTES Denisha Steiner PA-C [address] [place] [address] Phone: tel: fax: Referral ID Status Reason Start Date Expiration Date V isits Requested Visits Authorized [id number] Closed PCP Requested Referral 02/08/2025 02/08/2026 1 1 Reason Comments Appointment Called patient to pa lorene a [facility]. for memory loss per staff message and left a message to schedule it as soon as she can near her home location (if it were avaliable) . Reason Comments OT EVAL Specialty Diagnoses / Procedures Referred By Contac t Referred To Contact OCCUPATIONAL THERAPY Diagnoses Cervical spondylosis with myelopathy Neuropathy Radiculopathy, lumbar region Procedures CONSULT TO [facility] OCCUPATIONAL THERAPY EVAL HIGH COMPLEX 60 MINS Darren Mercado MD [address] [place] [address] Phone: tel: fax: Jennifer Lockett OT/Shira, OTD [address] [place] [address] Phone: tel: Referral ID Status Reason Start Date Expiration Date Visits Requested Visits Authorized [id number] Authorized Auto-Generat ed Referral 04/11/2025 08/03/2025 1 6 Reason Comments Speech Evaluation Specialty Diagnoses / Procedures Referred By Contac t Referred To Contact SPEECH THERAPY Diagnoses Spastic dysarthria Procedures CONSULT TO SPEECH THERAPY OFFICE/OUTPATIENT [facility] MDM 60 MINUTES Darren Mercado MD [address] [place] [address] Phone: tel: fax: Evi Pantoja, CCC-HEALTHCARE ADMINISTRATIVE ASSISTANT Referral ID Status Reason Start Date Expiration Date Visits Requested Visits Authorized [id number] Authorized Auto-Generat ed Referral 04/11/2025 11/23/2025 99 99 Reason Comments PT Eval Specialty Diagnoses / Procedures Referred By Contandria t Referred To Contact PHYSICAL THERAPY Diagnoses Cervical spondylosis with myelopathy Neuropathy Radiculopathy, lumbar region Multifactorial gait disorder Procedures CONSULT TO PHYSICAL THERAPY PHYSICAL THERAPY EVALUATION HIGH COMPLEX 45 MINS Darren Mercado MD [address] [place] [address] Phone: tel: fax: [place] [facility] [address] [place] [address] Phone: tel: fax: Referral ID Status Reason Start Date Expiration Date V isits Requested Visits Authorized [id number] Closed Auto-Generate d Referral 11/24/2024 11/23/2025 1 1 Reason Comments Appointment Reason Comments Vaginal Problem Care Teams (unrecognized sec tion and content) 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 Specialty Start Date End Date Summer Worrell DO [address] [place] [address] PCP - General Family Medicine 10/27/18 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 Specialty Start Date End Date Summer Worrell DO [address] [place] [place] [place], [place] [address] PCP - General Family Medicine 10/27/18 Team Status: Active Member Role Status Dates Dr. Summer Worrell DO Family Provider Active Dr. Summer Worrell DO Primary Care Provider Active Team Status: Inactive Member Role Status Dates Dr. Summer Worrell DO Primary Care Provider, Referrin g Provider Active Dimple Funes NP, SENIOR PATROL AGENT-C Attending Provider Active Team Status: Active Member Role Status Dates Dr. Summer Worrell DO Primary Care Prov ider, Attending Provider, Referring Provider Active Team Status: Inactive Member Role Status Dates Dr. Summer Worrell DO Primary Care Provider Active Dr. Obdulio Fofana MD Attending Provider, Emergency Provider Active Team Status: Inactive Member Role Status Dates Dr. Summer Worrell DO Primary Care Prov ider, Attending Provider, Referring Provider Active 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 Specialty Start Date End Date Summer Worrell DO [address] [place] [address] PCP - General Family Medicine 10/27/18 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 Specialty Start Date End Date Summer Worrell DO [address] [place] [address] PCP - General Family Medicine 10/27/18 Team Status: Inactive Member Role Status Dates Dr. Summer Worrell , DO Primary Care Provider, Referrin g Provider Active Angelica Avendano CNM Attending Provider Active Team Status: Inactive Member Role Status Dates Dr. Summer Worrell DO Primary Care Provider Active Angelica Avendano CNM Attending Provider, Referring Pro vider Active Team Status: Active Member Role Status Dates Dr. Summer Worrell DO Primary Care Provider Active Dr. Yoel Dalal MD Attending Provider Active Team Status: Inactive Member Role Status Dates Dr. Summer Worrell DO Primary Care Provider Active Dimple Funes SENIOR PATROL AGENT, SENIOR PATROL AGENT-C Attending Provider, Referring Provider Active Team Status: Active Member Role Status Dates Dr. Summer Worrell DO Primary Care Provider, Referrin g Provider Active Dr. Yoel Dalal MD Attending Provider Active Team Status: Inactive Member Role Status Dates Dr. Summer Worrell , DO Primary Care Provider, Attendin g Provider Active Team Status: Inactive Member Role Status Dates Dr. Summer Worrell DO Primary Care Provider, Referrin g Provider Active Dr. Saturnino Jeter , DO Attending Provider Active Team Status: Inactive Member Role Status Dates Dr. Summer Worrell DO Primary Care Provider Active Dr. Rizwan Tabor MD Attending Provider Active Team Status: Inactive Member Role Status Dates Dr. Summer Worrell DO Primary Care Provider Active Dr. Saturnino Jeter , DO Attending Provider, Referring P rovider Active Team Status: Active Member Role Status Dates Dr. Summer Worrell , DO Primary Care Provider, Attendin g Provider Active Team Status: Inactive Member Role Status Dates Dr. Summer Worrell DO Primary Care Provider Active Dr. Alan Ramos , DO Attending Provider, Emergency P rovider Active Team Status: Active Member Role Status Dates Dr. Summer Anaid , DO Primary Care Provider Active Zafar Zimmer MD Emergency Provider Active Dr. Arya Sapp , DO Admit Provider, Attending Pr ovider Active Team Status: Active Member Role Status Dates Dr. Summer Worrell , DO Primary Care Provider Active Zafar Zimmer MD Emergency Provider Active Dr. Arya Sapp , DO Admit Provider, Other Provid er Active Dr. Alireza Lang , DO Other Provider Active Dr. Yoel Bass , DO Attending Provider Active Team Status: Active Member Role Status Dates Dr. Summer oWrrell , DO Primary Care Provider Active Zafar Zimmer MD Emergency Provider Active Dr. Arya Sapp , DO Admit Provider, Other Provid er Active Dr. Alireza Lang , DO Other Provider Active Dr. Yoel Bass , DO Attending Provider, Other Provid er Active Team Status: Active Member Role Status Dates Dr. Summer Worrell , DO Primary Care Provider Active Zafar Zimmer MD Emergency Provider Active Dr. Arya Sapp , DO Admit Provider, Other Provid er Active Dr. Yoel Bass , DO Attending Provider, Other Provid er Active Dr. Alireza Lang , DO Other Provider Active Team Status: Inactive Member Role Status Dates Dr. Summer Worrell , DO Primary Care Provider Active Zafar Zimmer MD Emergency Provider Active Dr. Arya Sapp , DO Admit Provider, Other Provid er Active Dr. Yoel Bass , Attending Provider Active Dr. Alireza Lang , DO Other Provider Active Team Status: Active Member Role Status Dates Dr. Summer Worrell , DO Primary Care Provider Active Dr. Moise Glez MD Admit Provider, Attending Provid er Active Team Status: Inactive Member Role Status Dates Dr. Summer Worrell , DO Primary Care Provider Active Dr. Moise Glez MD Attending Provider, Referring Pr ovider Active Team Status: Active Member Role Status Dates Dr. Summer Worrell , DO Primary Care Provider Active Dr. Moise Glez MD Admit Provider, Other Provider A ctive Dr. Jared Wells , DO Attending Provider Active Team Status: Active Member Role Status Dates Dr. Summer Worrell , DO Primary Care Provider, Referrin g Provider Active Dr. Jared Wells , DO Attending Provider, Other Prov ider Active Team Status: Inactive Member Role Status Dates Dr. Summer Worrell , DO Primary Care Provider, Referrin g Provider Active Dr. Jared Wells , DO Attending Provider Active Team Status: Active Member Role Status Dates Dr. Summer Worrell DO Primary Care Provider Active Dr. Moise Glez MD Admit Provider, Re ferring Provider, Other Provider Active Dr. Jared Wells DO Attending Provider Active Team Status: Inactive Member Role Status Dates Dr. Summer Worrell DO Primary Care Provider Active Dr. Moise Glez MD Admit Provider, Attending Provid er Active 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 Specialty Start Date End Date Summer Worrell DO [address] [place] [address] PCP - General Family Medicine 10/27/18 Alireza Roach MD [address] [place] [address] Referring Anesthesiology 12/09/24 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 Specialty Start Date End Date Summer Worrell DO [address] [place] [address] PCP - General Family Medicine 10/27/18 Alireza Roach MD [address] [place] [address] Referring Anesthesiology 12/09/24 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 Specialty Start Date End Date Summer Worrell DO [address] [place] [address] PCP - General Family Medicine 10/27/18 Alireza Roach MD [address] [place] [address] Referring Anesthesiology 12/09/24 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 Specialty Start Date End Date Summer Worrell DO [address] [place] [address] PCP - General Family Medicine 10/27/18 Alireza Roach MD [address] [place] [address] Referring Anesthesiology 12/09/24 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 Specialty Start Date End Date Summer Worrell DO [address] [place] [address] PCP - General Family Medicine 10/27/18 Alireza Roach MD [address] [place] [address] Referring Anesthesiology 12/09/24 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 Specialty Start Date End Date Summer Worrell DO [address] [place] [address] PCP - General Family Medicine 10/27/18 Alireza Roach MD [address] [place] [address] Referring Anesthesiology 12/09/24 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 Specialty Start Date End Date Summer Worrell DO [address] [place] [address] PCP - General Family Medicine 10/27/18 Alireza Roach MD [address] [place] [address] Referring Anesthesiology 12/09/24 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 Specialty Start Date End Date Summer Worrell DO [address] [place] [address] PCP - General Family Medicine 10/27/18 Alireza Roach MD [address] [place] [address] Referring Anesthesiology 12/09/24 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 Specialty Start Date End Date Summer Worrell DO [address] [place] [address] PCP - General Family Medicine 10/27/18 Alireza Roach MD [address] [place] [address] Referring Anesthesiology 12/09/24 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 Specialty Start Date End Date Summer Worrell DO [address] [place] [address] PCP - General Family Medicine 10/27/18 Alireza Roach MD [address] [place] [address] Referring Anesthesiology 12/09/24 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 Specialty Start Date End Date Summer Worrell DO [address] [place] [address] PCP - General Family Medicine 10/27/18 Alireza Roach MD [address] [place] [address] Referring Anesthesiology 12/09/24 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 Specialty Start Date End Date Summer Worrell DO [address] [place] [address] PCP - General Family Medicine 10/27/18 Alireza Roach MD [address] [place] [address] Referring Anesthesiology 12/09/24 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 Specialty Start Date End Date AnaidSummer zelaya [address] [place] [address] PCP - General Family Medicine 10/27/18 Alireza Roach MD [address] [place], [place] [phone] Referring Anesthesiology 12/09/24 INFORMATION SOURCE (unrecogn ized section and content) DATE CREATED AUTHOR 06/13/2025 [facility] DATE CREATED AUTHOR AUTHOR'S ORGANIZ ATION 09/05/2025 [facility] DATE CREATED AUTHOR AUTHOR'S ORGANIZ ATION 09/25/2025 [facility] FOR RECORDS PERTAINING TO PATIENTS WHO ARE [...] BE BASED ON THE PRIMARY CLINICAL RECORDS. [email or web address] provides no warranty or guarantee of the accuracy or completeness of information in this document.
[2025-10-26 23:15] LABS: AST(SGOT) 22 U/L (<=31); Alanine Aminotransfer ALT/SGPT 15 U/L (<=34); Albumin, Serum 3.8 g/dL (3.4-4.8); Alkaline Phosphatase 86 U/L (35-104); Bilirubin, Direct 0.11 mg/dL (0.00-0.30); Globulin 2.9 g/dL (2.2-4.2)
--- NOTE | 2025-10-26 23:19 | ECHOD_ITS ---
Reason For Study Reason For Study: TIA/CVA Procedure This was a 2D Doppler, Color Flow transthoracic echocardiogram. Technically difficult due to breast implants. Exam performed portable in patient room. Left Ventricle Normal LV size. Left ventricular systolic function is normal. Stage 1 diastolic dysfunction. No regional wall motion abnormalities noted. Right Ventricle Normal RV size. Normal systolic function. Atria Normal left atrium. Normal right atrium. Mitral Valve Normal mitral valve. Tricuspid Valve Normal tricuspid valve. Mild-Moderate (1-2+) tricuspid valve insufficiency. Pulmonary artery systolic pressure is 38 mmHg. Aortic Valve Trisinus/trileaflet aortic valve. Mild focal aortic valve calcification. Pulmonic Valve Normal pulmonic valve. Great Vessels Normal aortic root. The pulmonary artery is normal size. Inferior vena cava collapse with respiration. Pericardium/Pleural No pericardial effusion. MMode/2D Measurements & Calculations LVIDd: 3.5 cm IVSd: 1.1 cm LAV(MOD- bp): 25.9 ml LVIDs: 2.3 cm LVPWd: 0.97 cm LAV(MOD- bp) Indexed: 15.0 ml/m2 FS: 34.3 % LAV(MOD- sp2): 30.0 ml LAV(MOD- sp4): 22.5 ml SV(MOD-sp4): 45.0 ml SV(sp4- el): 47.1 ml LVAd ap4: 22.4 cm2 LVLd ap4: 6.7 cm SI(MOD-sp4): 26.0 ml/m2 EDV(MOD-sp4): 61.5 ml EDV(sp4-el): 64.1 ml LVAs ap4: 10.5 cm2 LVLs ap4: 5.5 cm ESV(MOD-sp4): 16.5 ml ESV(sp4-el): 16.9 ml EF(MOD-sp4): 73.1 % EF(sp4-el): 73.6 % LA A4 area: 10.4 cm2 LA dimension(2D): 3.3 cm RA A4 area: 7.7 cm2 Time Measurements MV dec time: 0.19 sec Doppler Measurements & Calculations MV E max dave: 89.6 cm/sec Lat Peak E' Dave: 13.1 cm/sec Med Peak E' Dave: 8.7 cm/sec MV A max dave: 99.9 cm/sec E/E' lat: 6.8 E/E' med: 10.3 MV E/A: 0.90 MV V2 max: 111.5 cm/sec MV dec slope: 484.7 cm/sec2 Ao V2 max: 144.9 cm/sec MV max P.0 mmHg Ao max P.4 mmHg MV V2 mean: 74.3 cm/sec Ao V2 mean: 103.0 cm/sec MV mean P.4 mmHg Ao mean P.8 mmHg MV V2 VTI: 27.2 cm Ao V2 VTI: 32.7 cm LV V1 max: 102.0 cm/sec PA V2 max: 78.0 cm/sec TR max dave: 294.9 cm/sec LV V1 max P.2 mmHg TR max P.8 mmHg ECHO/Echo Complete Interpretation Summary Normal LV size. Left ventricular systolic function is normal. Stage 1 diastolic dysfunction. Mild-Moderate (1-2+) tricuspid valve insufficiency. Ordering Physician: Pedro Desir Referring Physician: Praveen Lutz Performed By: Stephanie Parson RCS
[2025-10-26] MEDS: 0.9% Normal Saline (1000mL) 1,000 ML 75 ML IV (23:32)
[2025-10-26 23:35] LABS: Barbiturate Urine NEGATIVE (< 200 ng/mL); Benzodiazepine Urine NEGATIVE (< 200 ng/mL); PCP Urine NEGATIVE (< 25 ng/mL); THC Urine NEGATIVE (< 50 ng/mL)
[2025-10-26 23:40] LABS: Alcohol, Blood (Medical)-Serum < 10.1 mg/dL (<=10.0)
[2025-10-27] VITALS (11 sets, daily range): BP systolic 138–156; BP diastolic 80–88; PULSE 74–88; RESP 16–18; TEMP 36.6–36.9; O2SAT 87–97; BMI 21.9
[2025-10-27] MEDS: Senna/Docusate Sodium 1 Tablet 2 TABLET PO ×3 (00:15→21:33)
--- NOTE | 2025-10-27 05:55 | MRI_ITS ---
PROCEDURE: SPINE THORACIC (ROUTINE); SPINE LUMBAR (ROUTINE) 10/27/2025 REASON FOR EXAM: B/L LEG WEAKNESS; GLUTEAL AND THIGH NUMBNESS TECHNIQUE: Procedure Code: MRISPT; MRISPL Modality: MR Procedure: SPINE THORACIC (ROUTINE); SPINE LUMBAR (ROUTINE) Multiplanar and multisequence images were obtained. CONTRAST: None. COMPARISON: MRI thoracic spine 11/08/2023, MRI lumbar spine 10/01/2023 FINDINGS: MRI THORACIC SPINE: The normal thoracic kyphosis is maintained. The thoracic vertebral bodies are normal in height. The thoracic vertebral bodies are normal in alignment. The thoracic bone marrow signal is within normal limits. There is no evidence of thoracic spinal cord signal abnormality. There is no high-grade spinal canal stenosis and thoracic spine. T1-T2: Small central disc protrusion. MRI LUMBAR SPINE: For the purposes of this report, the most caudal rectangular vertebral body will be designated L5. The next most caudal trapezoidal shaped vertebral body will be designated S1. The intervening disc at the lumbosacral angle is designated L5-S1. Mild lumbar dextroscoliosis. The normal lumbar lordosis is maintained. The lumbar vertebral bodies are normal in height. Grade 1 L3-L4 and L4-L5 anterolisthesis. There is no bone marrow replacing lesion in the lumbar spine. Multilevel disc desiccation and intervertebral disc space height loss. There is no evidence of signal abnormality in the imaged distal spinal cord. The conus medullaris terminates at the level of L1. T12-L1: No significant spinal canal stenosis or neural foraminal narrowing. L1-L2: Disc bulge, bilateral facet arthrosis, and ligamentum flavum hypertrophy. Mild spinal canal stenosis. No significant neural foraminal narrowing. L2-L3: Disc bulge, bilateral facet arthrosis, and ligamentum flavum hypertrophy contribute to moderate spinal canal stenosis. There is subarticular zone narrowing bilaterally. Mild right and moderate left neural foraminal narrowing. L3-L4: Uncovering of the disc, bilateral facet arthrosis, and ligamentum flavum hypertrophy. Moderate spinal canal stenosis. The bilateral traversing nerve roots abut the disc. There is crowding of the descending nerve roots. Mild right and moderate left neural foraminal narrowing. Type 1 Modic endplate changes. L4-L5: Disc bulge with superimposing central disc protrusion, bilateral facet arthrosis, and ligamentum flavum hypertrophy contribute to mild spinal canal stenosis. [id number] right and mild left neural foraminal narrowing. L5-S1: Disc bulge, bilateral facet arthrosis, and ligamentum flavum hypertrophy. Mild spinal canal stenosis. Mild bilateral neural foraminal narrowing. There is mild fatty atrophy of the posterior paraspinal muscles. Tarlov cysts. Bilateral renal cysts. MRI/Spine Thoracic (Routine) IMPRESSION: 1. Lumbar spondylosis most prominent at L3-L4 where there is moderate spinal ca nal stenosis and moderate left neural foraminal stenosis. At L4-L5, [id number] right neural foraminal stenosis. 2. Thoracic spondylosis without high-grade spinal canal or neural foraminal martin nosis in the thoracic spine. 3. Additional details as discussed above. Reading Location: [id number]
[2025-10-27 06:31] LABS: Hematocrit 35.5 % (37-47); Hemoglobin 11.9 g/dL (12.0-15.0); Immature Granulocytes Count 0.030 X10^3/uL (0.0-0.0); Mean Corp Hgb Conc 33.5 g/dL (32-36); Mean Corpuscular Volume 104.4 fL (81-99); Mean Platelet Vol. 9.5 fl (6.2-12.0); NRBC Flagged by Analyzer 0 % (0-5); Platelet Count 184 K/mm3 (150-450); RBC Distribution Width CV 13.2 % (11.6-14.6); RBC Distribution Width SD 50.2 fl (35.1-43.9); Red Blood Count 3.40 M/mm3 (4.2-5.4); White Blood Count 6.4 K/mm3 (4.4-11.0)
[2025-10-27 07:12] LABS: Vitamin B12 831 pg/mL (180-914)
[2025-10-27 07:43] LABS: FOLATES,SERUM (FOLIC ACID) 22.20 ng/mL (4.60-34.80)
--- NOTE | 2025-10-27 08:25 | CON.PCM.NE_ITS ---
Assessment and Plan: Neuro Assessment/Plan IMAN HICKS is a 75 F with a past medical history of unspecified neuropathy, being evaluated by Teleneurology for acute exacerbation of underlying weakness and intermittent dysarthria which has improved. This is in setting of new UTI. Exam currently largely non-focal with largely proximal LE weakness. Imaging with severe L spine canal stenosis, concern for some cauda equina impringement but unclear how old - read is pending and imaging with lot of motion artifact. Her symptoms seem to have started 1.5 yrs ago and possibly symptoms are related to this. Her acute symptoms have largely resolved however, suggesting that UTI may have exacerbated underlying symptoms. Plan: - treatment of UTI per primary team - recommend referral to ortho/neuro spine team to evaluate decompression of the spine. - PT/OT I personally attended this patient and spent a total time of 45minutes evaluating this patient including clinical assessment, review of chart, medical history imaging, and determining appropriate treatment and workup. HPI Consult Data Date of Consult: 10/28/25 HPI Narrative HPI Narrative: IMAN HICKS, is a 75 F who presents came to ED with bilateral leg weakness and slurred speech. She states it is a chronic problem that started after mechanical fall about 1-1/2 years ago when she had a left subtrochanteric proximal femur fracture and was operated on February 2024. Since then she has intermittent and fluctuating leg weakness bilateral right more than left but this is not consistent. Patient is not good historian and does not give consistent chronological order of her symptoms and progression. History of recurrent fall and had 2 falls today did not hit her head or LOC. By the time she came to the ER her weakness improved as per the EMS. She does not have lateralizing signs symptoms, typical of for stroke She also said she has chronic bilateral buttock numbness worse than bilateral thigh numbness and follows neurologist Dr. Zuluaga. She also has chronic slurred speech and not able to make correct sentences, pronounce or verbalize and neurologist referred to speech therapist. She does not have problem and understanding speech. Neurologic History Patient states she has weakness in the legs for several months. This started 1.5 yrs ago when she broke her L femur. Had neuropathy prior but now has neuropathy everywhere - from her head to her feet. She has neuropathy in face, mouth, and hands. In her legs, there are days where she is good and other days when she cannot stand. Day to day she has more weakness in her L leg but occasionally will have weakness everywhere. She has it intermittently every day. She notes the weakness happens when she starts dropping things and she will have falls. She will have falls several times a week. She will fall usually when she is walking and moving. She walks with a rollator around the house. There are some days she needs it and occasionally for a few hrs a day when she can walk without the rollator usually in the mornings (some mornings). No difficulty urinating. Had a lot of stool softeners for constipation. Both areas of her butt are numb. Pt does live a lone. No diplopia, no other episodes of slurred speech. Has had increase difficulty with eating and swallowing. No choking episodes. Unclear what neuropathy is from - she has been diabetic all her life but not sure what has made it worse. She had been working with her neurologist for workup and then things worsened and she could no longer stand up. This started on Friday/Friday. Patient was in her house when it started and suddently she states she lost feeling all over her body and she fell. She was with the rollator initially and had weakness and then when standing and walking felt weak all over. There was numbess the whole time those two days. Pt was still able to walk with the rollator to the restroom. It stayed that way for 2 days but then she states she got better actually after a day or so. Pt states she did not want to come to the hospital but boyfriend insisted that she come to the hospital. She may only have had the slurred speech for a day and was when her weakness was at its worst. No choking or coughing or increased difficulty swallowing after the slurred speech started. She did not notice the slurred speech but her boyfriend noticed it. The slurred speech got better with the other symptoms. Nothing like this has happened before. Per boyfriend, her speech was improved and back to normal. While he was there he states her speech was slurred and talking more slowly. After speaking with boyfriends, this may have all started on Friday. Exam -? General: Laying comfortably in bed; in no acute distress. -? HENT: Normal oropharynx and mucosa. Normal external appearance of ears and nose. Exophthalmos. -? Neck: Supple, no pain or tenderness -? CV:? No peripheral edema. -? Pulmonary:? Normal respiratory effort. -? Ext: No cyanosis, edema, or deformity -? Skin: No rash. Normal palpation of skin.? -? Musculoskeletal: full range of motion; no joint tenderness. Normal digits and nails by inspection. No clubbing. -? NEURO: -? Mental Status: The patient was alert and oriented to time, place, and person. Normal recent/remote memory, concentration, and general fund of knowledge. -? Language: speech is .? Naming, repetition, fluency, and comprehension intact. -? Cranial Nerves: PERRL 2 mm/brisk. EOMI, R eye ptosis, visual serna full, no facial asymmetry, facial sensation intact, hearing intact, tongue midline, no evidence of atrophy or fibrillations. -? Motor: normal bulk, tone, and strength throughout. No pronator drift or satelliting. Upper and lower extremities equal bilaterally. -? Detailed strength exam as performed by the nurse/WILLOW and witnessed by the physician: l R L SA 5 5 EE EF WE WF Plating Technician 5 5 HF 4 4 KE 5 5 KF DF PF -? Tone: is normal and bulk is normal -? Sensation- Intact to light touch bilaterally -? Coordination: No dysmetria on [id number], finger follow finger or [id number]. -? Gait- Guajardo sdifficulty standing without rocking, narrow base with good heel strike and stride length was observed during ambulation. Turns were in stride. [facility] Medical History Hx of fracture of left hip Wears glasses Post-menopausal Anxiety Thyroid disease Diabetes Gastric reflux Former smoker Shortness of breath on exertion Chronic cough History of pain when walking History of edema Hx of fracture of femur Peripheral neuropathy Back pain due to injury Syncope History of stress test Kidney stones Stroke/cerebrovascular accident Diabetes Primary localized osteoarthritis of hips, bilateral Spinal stenosis of lumbar region at multiple levels Spinal stenosis in cervical region DDD (degenerative disc disease), lumbar Low back pain Lichen sclerosus Atrophic vaginitis HSV (herpes simplex virus) infection Stress incontinence Rheumatoid arthritis Easy bruising Leg cramps Left renal stone Alcohol use Smoker Hypertension Goiter 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 Diabetes 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 TIA (transient ischemic attack) Vision problems Hypothyroidism GERD (gastroesophageal reflux disease) H/O: pneumonia Neuropathy Goiter Carpal tunnel syndrome Cataracts, bilateral Recurrent UTI Back problem Arthritis Anxiety and depression Seasonal allergies Type 2 diabetes mellitus Home Medications ?Medication ?Instructions ?Recorded ?Last Taken ?Type bupropion HCl 300 mg 24 hr tablet, 300 mg PO QAM depre ssion 11/20/18 07/15/24 History extended release (Wellbutrin XL) multivitamin with minerals-folic 1 tab PO DAILY vitami n 11/20/18 Unknown History acid 0.4 mg tablet (Adult One Daily Multivitamin) fluticasone propionate 50 1 spray NASAL DAILY PRN antoinette rgies 06/22/20 Unknown History mcg/actuation nasal spray,suspension metformin 500 mg tablet 1,000 mg PO DAILY diabetes 0 08/04/20 07/15/24 History levothyroxine 175 mcg tablet 150 mcg PO DAILY hypothyr oid 01/30/22 07/16/24 History (Synthroid) metformin 500 mg tablet 500 mg PO QHS diabetes 06/2807/15/24 History acetaminophen 500 mg tablet 1,000 mg (2 x 500 mg) PO Q 8 pain 03/11/24 Unknown Rx #0 tabs sennosides 8.6 mg-docusate sodium 2 tab PO BID #0 tabs 03/26/24 Unknown Rx 50 mg tablet (Stool Softener-Stimulant Laxative) Caffeine [No Doz] 300 mg PO DINNER PRN FATIQUE 07/14/24 Unknown History Caffeine [No Doz] 300 mg PO LUNCH PRN FATIQUE 07/14/24 07/15/24 History gabapentin 100 mg capsule 200 mg PO TIDCM 07/14/24 History omeprazole 40 mg capsule,delayed 40 mg PO DAILY Unknown History release bupropion HCl 150 mg 24 hr tablet, 150 mg PO DAILY 02/15 Unknown History extended release clobetasol 0.05 % topical ointment topical 10/26/25 Un known History lisinopril 5 mg tablet 5 mg PO DAILY 10/26/25 Unkno wn History Allergy/AdvReac Type Severity Reaction Status Date / Time No Known Allergies Allergy Verified 10/26/25 17:12 Family History Mother Cancer Father Diabetes Heart disease Sister Diabetes Surgical History Hx of esophagogastroduodenoscopy Hx of cystoscopy History of colonoscopy History of foot surgery History of lithotripsy History of carpal tunnel surgery Social History household members: none housing: house number of children: 0 current occupational status: retired Smoking Status: Never smoker alcohol intake: current alcohol intake frequency: holidays/special occasions only substance use type: does not use seatbelt use: always do you feel safe at home: Yes additional social history: Vital Signs Vital Signs Vital Signs: 10/26/25 17:05 10/26/25 17:06 10/26/25 17:10 Temperature 97.8 F Temperature Source Temporal Pulse Rate 91 99 Respiratory Rate 17 16 Respiratory Effort Respiratory Depth Respiratory Pattern Blood Pressure 155/86 H 160/112 H Blood Pressure Mean 109 128 Blood Pressure Source Blood Pressure Position Blood Pressure Location Pulse Ox 95 97 Oxygen Delivery Method Oxygen Flow Rate (L/min) 10/26/25 17:11 10/26/25 17:26 10/26/25 17:35 Temperature Temperature Source Pulse Rate 89 92 Respiratory Rate 16 14 Respiratory Effort Respiratory Depth Respiratory Pattern Blood Pressure 155/86 H 149/87 H Blood Pressure Mean 109 107 Blood Pressure Source Blood Pressure Position Blood Pressure Location Pulse Ox 97 96 93 Oxygen Delivery Method Room Air Room Air Oxygen Flow Rate (L/min) 10/26/25 17:36 10/26/25 18:04 10/26/25 18:30 Temperature Temperature Source Pulse Rate 92 84 Respiratory Rate 13 18 Respiratory Effort Respiratory Depth Respiratory Pattern Blood Pressure 149/87 H 137/85 H 134/83 H Blood Pressure Mean 107 102 98 Blood Pressure Source Blood Pressure Position Blood Pressure Location Pulse Ox 95 95 Oxygen Delivery Method Room Air Oxygen Flow Rate (L/min) 10/26/25 18:45 10/26/25 18:46 10/26/25 19:00 Temperature Temperature Source Pulse Rate 80 79 78 Respiratory Rate 17 15 12 Respiratory Effort Respiratory Depth Respiratory Pattern Blood Pressure 134/79 H 134/79 H 125/68 H Blood Pressure Mean 96 97 87 Blood Pressure Source Blood Pressure Position Blood Pressure Location Pulse Ox 95 96 98 Oxygen Delivery Method Oxygen Flow Rate (L/min) 10/26/25 19:00 10/26/25 19:15 10/26/25 19:30 Temperature Temperature Source Pulse Rate 77 76 83 Respiratory Rate 11 L 11 L 15 Respiratory Effort Respiratory Depth Respiratory Pattern Blood Pressure 125/68 H 135/80 H 154/87 H Blood Pressure Mean 85 97 107 Blood Pressure Source Blood Pressure Position Blood Pressure Location Pulse Ox 97 99 Oxygen Delivery Method Oxygen Flow Rate (L/min) 10/26/25 19:40 10/26/25 19:45 10/26/25 20:00 Temperature 98.1 F Temperature Source Oral Pulse Rate 77 76 75 Respiratory Rate 18 16 15 Respiratory Effort Respiratory Depth Respiratory Pattern Blood Pressure 154/87 H 136/83 H 140/82 H Blood Pressure Mean 109 97 100 Blood Pressure Source Blood Pressure Position Blood Pressure Location Pulse Ox 98 97 98 Oxygen Delivery Method Room Air Room Air Oxygen Flow Rate (L/min) 10/26/25 20:15 10/26/25 20:30 10/26/25 20:45 Temperature Temperature Source Pulse Rate 77 76 78 Respiratory Rate 14 13 12 Respiratory Effort Respiratory Depth Respiratory Pattern Blood Pressure 134/82 H 144/79 H 148/83 H Blood Pressure Mean 97 97 103 Blood Pressure Source Blood Pressure Position Blood Pressure Location Pulse Ox 98 100 Oxygen Delivery Method Room Air Room Air Oxygen Flow Rate (L/min) 10/26/25 21:00 10/26/25 21:48 10/26/25 21:49 Temperature Temperature Source Pulse Rate 78 89 81 Respiratory Rate 14 16 Respiratory Effort Respiratory Depth Respiratory Pattern Blood Pressure 145/80 H 148/83 H Blood Pressure Mean 101 104 Blood Pressure Source Blood Pressure Position Blood Pressure Location Pulse Ox 98 99 Oxygen Delivery Method Room Air Room Air Oxygen Flow Rate (L/min) 10/26/25 22:00 10/26/25 22:15 10/26/25 22:33 Temperature 97.8 F Temperature Source Pulse Rate 81 89 75 Respiratory Rate 13 15 15 Respiratory Effort Respiratory Depth Respiratory Pattern Blood Pressure 145/70 H 145/75 H Blood Pressure Mean 95 98 Blood Pressure Source Blood Pressure Position Blood Pressure Location Pulse Ox 96 96 100 Oxygen Delivery Method Room Air Oxygen Flow Rate (L/min) 10/26/25 22:35 10/26/25 23:07 10/27/25 00:10 Temperature 97.8 F 97.1 F L Temperature Source Oral Oral Pulse Rate 75 71 Respiratory Rate 15 16 Respiratory Effort Respiratory Depth Respiratory Pattern Blood Pressure 145/75 H 149/83 H Blood Pressure Mean 98 105 Blood Pressure Source Monitor Blood Pressure Position Semi-Fowlers Blood Pressure Location Left Arm Pulse Ox 100 98 96 Oxygen Delivery Method Room Air Room Air Oxygen Flow Rate (L/min) 10/27/25 01:35 10/27/25 01:38 10/27/25 01:39 Temperature 97.9 F Temperature Source Oral Pulse Rate 80 74 Respiratory Rate 16 16 Respiratory Effort Respiratory Depth Respiratory Pattern Blood Pressure 156/88 H Blood Pressure Mean 110 Blood Pressure Source Monitor Blood Pressure Position Semi-Fowlers Blood Pressure Location Right Arm Pulse Ox 87 87 97 Oxygen Delivery Method Room Air Room Air Nasal Cannula Oxygen Flow Rate (L/min) 2 10/27/25 02:00 10/27/25 02:50 10/27/25 06:00 Temperature 98 F Temperature Source Oral Pulse Rate 85 Respiratory Rate 18 Respiratory Effort Normal Respiratory Depth Normal Respiratory Pattern Normal Blood Pressure 146/81 H Blood Pressure Mean 102 Blood Pressure Source Monitor Blood Pressure Position Semi-Fowlers Blood Pressure Location Right Arm Pulse Ox 97 94 Oxygen Delivery Method Nasal Cannula Room Air Nasal Cannula Oxygen Flow Rate (L/min) 2 2 Weight Weight: 63.4 kg Body Mass Index (BMI) 21.9 EEG Results Procedure Details EEG Procedure Details: IMAN HICKS is a 75 year old F with a past medical history of , who presents for evaluation of Electroencephalogram on DATE at TIME Lab / Micro Data 10/27/25 05:39 10/27/25 05:39 Labs: Laboratory Results - last 24 hr 10/26/25 16:57: WBC 6.9, RBC 3.77 L, Hgb 13.4, Hct 40.1, MCV 106.4 H, MCH 35.5 H , MCHC 33.4, RDW Std Deviation 51.4 H, RDW [place]eff [place] 13.0, Plt Count 210, MPV 9.6, Immature Gran % (Auto) 0.400, Neut % (Auto) 75.1 H, Lymph % (Auto) 15.3 L, [place] % (Auto) 6.6, Eos % (Auto) 2.0, Baso % (Auto) 0.6, Absolute Neuts (auto) 5.1, Absolute Lymphs (auto) 1.05, Nucleated RBC % 0, PT 13.7, INR 1.0, APTT 29.8, Sodium 142, Potassium 4.2, Chloride 107, Carbon Dioxide 21.2, Anion Gap 13, BUN 30 H, Creatinine 1.06, Estim Creat Clear Calc 51.95, Est GFR (MDRD) Non- Af 55 L, BUN/Creatinine Ratio 27.8 H, Glucose 146 H, Calcium 9.8, Troponin T High Sens 26 H, TSH 1.560, Free T4 1.70 H, Free T3 pg/dL 2.6 10/26/25 17:55: Urine Color Straw, Urine Clarity Cloudy, Urine pH 6.0, Ur Specific [place] 1.010, Urine Protein 15 H, Urine Glucose (UA) Normal, Urine Ketones Negative, Urine Occult Blood 10 H, Urine Nitrite Positive H, Urine Bilirubin Negative, Urine Urobilinogen Normal, Ur Leukocyte Esterase 100 H, Urine RBC 0-5 SEEN, Urine WBC 10-25 SEEN, Ur Squamous Epith Cells 0-5 SEEN, Urine Bacteria 3+, Urine Mucus 0 SEEN, Urine Opiates Screen NEGATIVE, U Buprenorphine Qual NEGATIVE, Ur Oxycodone Screen NEGATIVE, Urine Methadone Screen NEGATIVE, Urine Fentanyl Screen NEGATIVE, Ur Barbiturates Screen NEGATIVE, Ur Phencyclidine Scrn NEGATIVE, Ur Amphetamines Screen NEGATIVE, U Benzodiazepines Scrn NEGATIVE, Urine Cocaine Screen NEGATIVE, U Cannabinoids Screen NEGATIVE 10/26/25 19:04: Troponin T Hi Sens 2 Hr 24 H 10/26/25 21:55: Troponin T Hi Sens 4Hr 29 H 10/26/25 22:40: Total Bilirubin 0.27, Direct Bilirubin 0.11, AST 22, ALT 15, Alkaline Phosphatase 86, Total Protein 6.7, Albumin 3.8, Globulin 2.9, Ethyl Alcohol < 10.1 10/27/25 05:39: WBC 6.4, RBC 3.40 L, Hgb 11.9 L, Hct 35.5 L, MCV 104.4 H, MCH 35.0 H, MCHC 33.5, RDW Std Deviation 50.2 H, RDW [place]eff [place] 13.2, Plt Count 184, MPV 9.5, Immature Gran % (Auto) 0.500, Neut % (Auto) 66.9, Lymph % (Auto) 20.1, [place] % (Auto) 9.0, Eos % (Auto) 3.0, Baso % (Auto) 0.5, Absolute Neuts (auto) 4.3, Absolute Lymphs (auto) 1.28, Nucleated RBC % 0, Hemoglobin A1c 6.8 H , Vitamin B12 831, Serum Folate 22.20 Imaging Radiology Impression Brain CT 10/26/25 17:06 IMPRESSION: No acute intracranial abnormality. No large vessel arterial occlusion or hemodynamically significant stenosis. Stroke Alert: The critical findings in above were relayed directly by me via telephone to Toni Shrestha on 10/26/2025 at 4:31 pm CRIMINOLOGY TEACHER with readback verification. Reading Location: [facility] Head/Neck CTA 10/26/25 17:07 IMPRESSION: No acute intracranial abnormality. No large vessel arterial occlusion or hemodynamically significant stenosis. Stroke Alert: The critical findings in above were relayed directly by me via telephone to Toni Shrestha on 10/26/2025 at 4:31 pm CRIMINOLOGY TEACHER with readback verification. Reading Location: [facility] Active Medications Active Medications Active Medications: Current Medications Generic Name Dose Route Start Last Admin Trade Name Freq PRN Reason Stop Dose Admin Acetaminophen 650 mg 10/26/25 23:19 10/27/25 06:32 Acetaminophen 325 Mg Tablet PO 650 mg Q4H PRN PRN Administration Pain 1-10 Or Fever>99.6 Atorvastatin Calcium 80 mg 10/26/25 23:00 10/26/25 23:33 Atorvastatin Calcium 80 Mg Tablet PO 80 mg QHS JOLYNN Administration Bupropion HCl 150 mg 10/27/25 10:00 Bupropion (Xl) 150 Mg Tablet.Xl PO DAILY JOLYNN Bupropion HCl 300 mg 10/27/25 10:00 Bupropion (Xl) 300 Mg Tablet.Xl PO QAM JOLYNN Clarify Med Order 0 each 10/26/25 23:30 Clarify Order NOTE CLARIFY JOLYNN Enoxaparin Sodium 40 mg 10/26/25 23:19 10/27/25 00:15 Enoxaparin 40 Mg/0.4 Ml Syringe SC 40 mg Q24 JOLYNN Administration Fluticasone Propionate 1 spray 10/26/25 23:19 Fluticasone 0.05% 1 [place] Nasal.Sry NASAL DAILY PRN ALLERGIES Hydralazine HCl 5 mg 10/26/25 23:19 Hydralazine 20 Mg/Ml Vial IV 10/27/25 23:19 Q30M PRN maintain BP parameters with HR <60 Sodium Chloride 1,000 mls @ 75 mls/hr 10/26/25 22:54 10/26/25 23:32 IV 10/27/25 12:13 75 mls/hr .[id number] JOLYNN Administration Labetalol HCl 10 - 20 mg 10/26/25 23:19 Labetalol 20 Mg/4 Ml Vial IV 10/27/25 23:19 Q10M PRN PRN maintain BP parameters with HR >/=60 Levothyroxine Sodium 150 mcg 10/27/25 06:00 10/27/25 06:32 Levothyroxine 150 Mcg Tablet PO 150 mcg DAILY@0600 JOLYNN Administration Pantoprazole Sodium 40 mg 10/26/25 23:19 10/27/25 00:15 Pantoprazole Sodium 40 Mg Tablet PO 40 mg BID JOLYNN Administration Senna/Docusate Sodium 2 tablet 10/26/25 23:19 10/27/25 00:15 Senna/Docusate Sodium 1 Tablet PO 2 tablet BID JOLYNN Administration Sodium Chloride 10 - 40 ml 10/26/25 23:48 0.9% Saline Lock 10 Ml Syringe IV UD PRN SALINE FLUSH NIHSS NIHSS Nursing Documentation NIHSS Nursing Documentation: NIHSS: Ischemic Stroke/TIA Start: 10/26/25 23:27 Freq: [id number] Status: Active Protocol: Activity Type Activity Date Activity User E-sign Co-sign Detail Recorded Client Recorded Date Recorded By Document 10/27/25 08:00 CHRYSTAL [id number] 10/27/25 08:18 CHRYSTAL 10/27/25 08:00 NIH Stroke Scale [NIHSS] A score of 0 is normal or asymptomatic . Total possible score is 42. Inpatient: RN or Physician to activate a stroke alert for onset of new stroke symptoms or with NIHSS increase >/= 3 points. Following change in neurological status, NIHSS will be performed per physician order or more frequently PRN. -1a. Level of Consciousness 0 - Alert; keenly responsive -1b. LOC Questions 0 - Answers BOTH questions correctly -1c. LOC Commands 0 - Performs BOTH tasks correctly -2. Best Gaze 0 - Normal -3. Visual 0 - No visual loss -4. Facial Palsy 0 - Normal symmetrical movements -5a. Left Arm 0 - No drift; arm holds 90 ( or 45) degrees for full 10 seconds -5b. Right Arm 0 - No drift; arm holds 90 ( or 45) degrees for full 10 seconds -6a. Left Leg 0 - No drift; leg holds 30- degree position for full 5 seconds -6b. Right Leg 0 - No drift; leg holds 30- degree position for full 5 seconds -7. Limb Ataxia 0 - Absent -8. Sensory 0 - Normal; no sensory loss -9. Best Language 0 - No aphasia; normal -10. Dysarthria 0 - Normal -11. Extinction and Inattention 0 - No abnormality -Total 0 Query Text:A score of 0 is normal or asymptomatic. Total possible score is 42 . ED: Notify Physician for NIHSS increase by > / = 3 points. Inpatient: RN or Physician to activate a stroke alert for NIHSS increase of > / = 3 points. Coma Scale [Assess] -Eye Opening Spontaneous -Motor Obeys Commands -Verbal Oriented [Total] -Coma Scale Total 15
[2025-10-27 09:10] LABS: Anion Gap 11 (5-15); BUN 19 mg/dL (4-19); BUN/Creat Ratio 21.5 RATIO (10-20); Calcium,Total 9.1 mg/dL (7.6-11.0); Carbon Dioxide 22.6 mmol/L (21.0-32.0); Chloride 108 mmol/L (98-108); Estimated Creatinine Clearance 52.52 ml/min (50-250); Glucose 113 mg/dL (70-99); Potassium 3.8 mmol/L (3.3-5.1)
[2025-10-27 09:13] LABS: Cholesterol 162 mg/dL (<=200); Low Density Lipoprotein Calc. 92 mg/dL; Triglycerides 82 mg/dL; Very Low Density Lipoprotein 16 mg/dL (5-40); cholesterol:hdl ratio screen 2.96
--- NOTE | 2025-10-27 13:01 | PN_ITS ---
Subjective Subjective Patient seen and examined with her nurse by her bedside. She was admitted with a complaint of worsening lower extremity weakness and mouth droop. Her mouth droop has resolved. Objective Data Objective Data Vital Signs: Vital Signs Temp Pulse Resp BP Pulse Ox O2 Del Method O2 Flow Rate 98.5 F 85 16 146/80 H 95 Nasal Cannula 2 10/27/25 11:35 10/27/25 11:35 10/27/25 11:35 10/27/25 11:35 10/27/25 11:35 10/27/25 11:35 10/27/25 11:35 Oxygen Flow Rate (L/min) 2 Oxygen Delivery Method Nasal Cannula Weight: 139 lb 12.369 oz Body Mass Index (BMI) 21.9 Intake & Output: Intake and Output for Last 24 Hours 10/25/25 10/26/25 10/27/25 23:59 23:59 23:59 Intake Total 1050 / 1150 1200 / 1200 Balance 1050 / 1150 1200 / 1200 Lab / Micro Data 10/27/25 05:39 10/27/25 05:39 Labs: Laboratory Results - last 24 hr 10/26/25 16:57: WBC 6.9, RBC 3.77 L, Hgb 13.4, Hct 40.1, MCV 106.4 H, MCH 35.5 H , MCHC 33.4, RDW Std Deviation 51.4 H, RDW [place]eff [place] 13.0, Plt Count 210, MPV 9.6, Immature Gran % (Auto) 0.400, Neut % (Auto) 75.1 H, Lymph % (Auto) 15.3 L, [place] % (Auto) 6.6, Eos % (Auto) 2.0, Baso % (Auto) 0.6, Absolute Neuts (auto) 5.1, Absolute Lymphs (auto) 1.05, Nucleated RBC % 0, PT 13.7, INR 1.0, APTT 29.8, Sodium 142, Potassium 4.2, Chloride 107, Carbon Dioxide 21.2, Anion Gap 13, BUN 30 H, Creatinine 1.06, Estim Creat Clear Calc 51.95, Est GFR (MDRD) Non- Af 55 L, BUN/Creatinine Ratio 27.8 H, Glucose 146 H, Calcium 9.8, Troponin T High Sens 26 H, TSH 1.560, Free T4 1.70 H, Free T3 pg/dL 2.6 10/26/25 17:55: Urine Color Straw, Urine Clarity Cloudy, Urine pH 6.0, Ur Specific [place] 1.010, Urine Protein 15 H, Urine Glucose (UA) Normal, Urine Ketones Negative, Urine Occult Blood 10 H, Urine Nitrite Positive H, Urine Bilirubin Negative, Urine Urobilinogen Normal, Ur Leukocyte Esterase 100 H, Urine RBC 0-5 SEEN, Urine WBC 10-25 SEEN, Ur Squamous Epith Cells 0-5 SEEN, Urine Bacteria 3+, Urine Mucus 0 SEEN, Urine Opiates Screen NEGATIVE, U Buprenorphine Qual NEGATIVE, Ur Oxycodone Screen NEGATIVE, Urine Methadone Screen NEGATIVE, Urine Fentanyl Screen NEGATIVE, Ur Barbiturates Screen NEGATIVE, Ur Phencyclidine Scrn NEGATIVE, Ur Amphetamines Screen NEGATIVE, U Benzodiazepines Scrn NEGATIVE, Urine Cocaine Screen NEGATIVE, U Cannabinoids Screen NEGATIVE 10/26/25 19:04: Troponin T Hi Sens 2 Hr 24 H 10/26/25 21:55: Troponin T Hi Sens 4Hr 29 H 10/26/25 22:40: Total Bilirubin 0.27, Direct Bilirubin 0.11, AST 22, ALT 15, Alkaline Phosphatase 86, Total Protein 6.7, Albumin 3.8, Globulin 2.9, Ethyl Alcohol < 10.1 10/27/25 05:39: WBC 6.4, RBC 3.40 L, Hgb 11.9 L, Hct 35.5 L, MCV 104.4 H, MCH 35.0 H, MCHC 33.5, RDW Std Deviation 50.2 H, RDW [place] 13.2, Plt Count 184, MPV 9.5, Immature Gran % (Auto) 0.500, Neut % (Auto) 66.9, Lymph % (Auto) 20.1, Snyder % (Auto) 9.0, Eos % (Auto) 3.0, Baso % (Auto) 0.5, Absolute Neuts (auto) 4.3, Absolute Lymphs (auto) 1.28, Nucleated RBC % 0, Sodium 141, Potassium 3.8, Chloride 108, Carbon Dioxide 22.6, Anion Gap 11, BUN 19, Creatinine 0.90, Estim Creat Clear Calc 52.52, Est GFR (MDRD) Non-Af 66, B UN/Creatinine Ratio 21.5 H, Glucose 113 H, Hemoglobin A1c 6.8 H, Calcium 9.1, Triglycerides 82, Cholesterol 162, LDL Cholesterol, Calc 92, VLDL Cholesterol 16, HDL Cholesterol 55, Cholesterol/HDL Ratio 2.96, Vitamin B12 831, Serum Folate 22.20 Micro: Microbiology 10/26/25 17:55 Urine, Clean Catch Urine Culture - Preliminary GNR lactose staff psychiatrist Alpha hemolytic organism Radiography Diagnostic Testing: Radiology Impression Brain CT 10/26/25 17:06 IMPRESSION: No acute intracranial abnormality. No large vessel arterial occlusion or hemodynamically significant stenosis. Stroke Alert: The critical findings in above were relayed directly by me via telephone to Toni Shrestha on 10/26/2025 at 4:31 pm ART PROFESSOR with readback verification. Reading Location: [facility] Head/Neck CTA 10/26/25 17:07 IMPRESSION: No acute intracranial abnormality. No large vessel arterial occlusion or hemodynamically significant stenosis. Stroke Alert: The critical findings in above were relayed directly by me via telephone to Toni Shrestha on 10/26/2025 at 4:31 pm ART PROFESSOR with readback verification. Reading Location: [facility] Physical Exam Const alert, oriented x3 and no apparent distress General Appearance: cooperative HEENT normocephalic, head/scalp atraumatic, moist oral mucous membranes and oropharynx normal Eyes EOMs intact bilaterally Neck supple and no JVD Lymph Lymphatic: no lymphedema noted Resp normal respiratory effort, normal air movement and clear to auscultation bilaterally Cardio regular rate, regular rhythm, S1 normal heart sound, S2 normal heart sound and no murmurs GI normal to inspection, nondistended, normoactive bowel sounds, soft to palpation and non-tender Extremity normal capillary refill, no clubbing, cyanosis or edema and no calf tenderness General Extremity: no tenderness to palpation of joints or extremities Skin General Skin Exam: no breakdown Neuro no focal motor deficits and no sensory deficits noted Motor Exam: general weakness Psych thought process normal and cooperative Appearance: appropriate Assessment & Plan Assessment/Plan (1) Weakness: (2) Multiple falls: (3) Slurred speech: PLAN: Plan #Bilateral lower extremity weakness * may be due to peripheral neuropathy and lumbar stenosis * previous imaging from 2022 of the lumbar spine did show spinal stenosis * MRI of the thoracic and lumbar spine ordered for further evaluation * PT.OT On board. Fall precautions * #Mouth droop in [place] setting of chronic slurred speech * MRI brain ordered to rule out a stroke. CT brain showed no acute intracranial pathology * neurology on board * #Chronic slurred speech: speech therapy on board. #Benign essential hypertension: Lisinopril on hold pending MRI results. IV hydralazine. #Hypothyroidism in the setting of history of Juani's thyroiditis and diffuse thyroid goiter: stable. ON synthroid #TYpe 2 diabetes mellitus: on ISS. Accuchecks ACHS. A1c 6.8. #History of alcohol use disorder: Says she drinks wine about 3 times weekly. #Anxiety and depression: Bupropion #GERD: On PPI DVT prophylaxis: Lovenox CODE STATUS: DNR CCA no intubation Charges/Coding Visit Charges Inpatient E&M: 15338 Subs Hosp L2
[2025-10-27] MEDS: buPROPion (XL) 300 MG TABLET.XL PO (13:48)
[2025-10-27] MEDS: buPROPion (XL) 150 MG TABLET.XL PO (13:48)
--- NOTE | 2025-10-27 13:52 | CASEMGMT ---
Social Work Per imaging pt negative for stroke, therefore PHQ9 not completed. RENNY Morrison
--- NOTE | 2025-10-27 16:18 | CASEMGMT ---
SAM Met with patient to complete SAM form. SAM form and its content were verbally explained and patient's questions were answered to the best of my ability.? Patient voiced understanding and signed SAM form.? Patient provided a copy of signed SAM form and original placed in patient's chart.? Patient had no further questions. Karen Gutierrez, Discharge Planning Asst
[2025-10-27] MEDS: 0.9% Saline Lock 10 ML Syringe IV (20:18)
--- NOTE | 2025-10-27 23:19 | MRI_ITS ---
PROCEDURE: BRAIN WITHOUT CONTRAST 10/27/2025 REASON FOR EXAM: R/O STROKE. Clinical history of bilateral leg weakness. TECHNIQUE: Procedure Code: MRIBR Modality: MR Procedure: BRAIN WITHOUT CONTRAST Multiplanar and multisequence images were obtained. COMPARISON: None available. FINDINGS: No acute infarct or hemorrhage. Scattered nonspecific foci and partially confluent periventricular and subcortical T2/FLAIR white matter hyperintensities in the cerebral hemispheres likely reflect chronic microvascular ischemic changes. No extra-axial fluid collection. No significant mass effect or herniation of the brain. Global cerebral volume loss with compensatory enlargement of the CSF spaces. No hydrocephalus. The basal cisterns are patent. The intracranial large vessel arterial flow voids are maintained. The mastoid air cells clear. There is scattered paranasal mucosal thickening. The orbits are unremarkable. The calvarial bone marrow signal is within normal limits. MRI/Brain without Contrast IMPRESSION: No acute infarct, hemorrhage, or significant mass effect. Global cerebral volume loss and chronic microvascular ischemic changes. Reading Location: [facility]
[2025-10-28 02:25] VITALS: BP 126/79; PULSE 79; RESP 14; TEMP 37; O2SAT 93
[2025-10-28 04:11] LABS: Hematocrit 38.9 % (37-47); Hemoglobin 13.0 g/dL (12.0-15.0); Immature Granulocytes Count 0.030 X10^3/uL (0.0-0.0); Mean Corp Hgb Conc 33.4 g/dL (32-36); Mean Corpuscular Volume 106.6 fL (81-99); Mean Platelet Vol. 9.3 fl (6.2-12.0); NRBC Flagged by Analyzer 0 % (0-5); Platelet Count 198 K/mm3 (150-450); RBC Distribution Width CV 13.1 % (11.6-14.6); RBC Distribution Width SD 51.5 fl (35.1-43.9); Red Blood Count 3.65 M/mm3 (4.2-5.4); White Blood Count 6.2 K/mm3 (4.4-11.0)
[2025-10-28 04:34] LABS: Anion Gap 11 (5-15); BUN 24 mg/dL (4-19); BUN/Creat Ratio 19.3 RATIO (10-20); Calcium,Total 9.2 mg/dL (7.6-11.0); Carbon Dioxide 24.0 mmol/L (21.0-32.0); Chloride 108 mmol/L (98-108); Estimated Creatinine Clearance 38.43 ml/min (50-250); Glucose 133 mg/dL (70-99); Potassium 4.2 mmol/L (3.3-5.1)
[2025-10-28 06:35] VITALS: BP 153/82; PULSE 83; RESP 14; TEMP 36.7; O2SAT 96
--- NOTE | 2025-10-28 09:35 | CASEMGMT ---
Social Work Face to Face with pt for initial transition planning/care coordination assessment. SW introduced self and pt voices understanding and consents to assessment. Pt is A&O x4 and answers all questions appropriately at this time. Admitting Dx: general weakness Primary Care Doctor: Dr. Lutz Speciality doctors: urologist- Ebony, neuro- Dr. Greene Insurance: [employer] Medicare Pharmacy: Patient utilizes [facility] Advanced directives: Patient reported she has a LW and she is working on a POA. LNOK:. sister Madison. Madison currently lives in [place] but she is moving to [place]. Living Situation: Patient lives at home alone in a one story. Her friend Lucas helps her if needed. ADL's/Prior level of functioning: independent Transportation: Patient still drives. DME: FWW, rollator, SC long term/home health history: none Mental Health: none Substance abuse history: none Assessment: Patient lives at home alone in a one story. Her friend Lucas helps her if needed. Patient participates in outpatient therapy at [facility] and plans to continue. Patient has a FWW, rollator, and SC at home. PLAN: DC home and continue OP therapy. RENNY Morrison
[2025-10-28 10:08] LABS: GGTP 11 IU/L (0-60)
[2025-10-28 10:45] VITALS: BP 143/73; PULSE 82; RESP 16; TEMP 37.1; O2SAT 96
[2025-10-28] MEDS: Senna/Docusate Sodium 1 Tablet 2 TABLET PO (10:46)
[2025-10-28] MEDS: buPROPion (XL) 150 MG TABLET.XL PO (10:47)
[2025-10-28] MEDS: buPROPion (XL) 300 MG TABLET.XL PO (10:47)
--- NOTE | 2025-10-28 11:45 | PCM.DC.SUM ---
Providers Date of Admission: 10/27/25 Date of Discharge: 10/28/25 Primary Care Physician: Dr. Praveen Lutz, DO Consultations 10/26/25 23:19 Consult: Tele-Neurology Routine Consulting Provider: [facility] Reason for Consult: Acute Ischemic Stroke/TIA EMERGENT Consult: No MD Notified: Yes Date Notified: 10/26/25 Time Notified: 23:48 Method of Notification: Answering Service Nursing Unit Staff Notify [facility] of Tele-Neurology Consult: Yes Reason For Visit: GEN WEAKNESS Diagnosis Discharge Diagnosis (1) Weakness: Status: Acute Code(s): R53.1 - Weakness (2) Multiple falls: Status: Acute Code(s): R29.6 - Repeated falls (3) Slurred speech: Status: Acute Code(s): R47.81 - Slurred speech Plan #Bilateral lower extremity weakness may be due to peripheral neuropathy and lumbar stenosis previous imaging from 2022 of the lumbar spine did show spinal stenosis MRI of the thoracic and lumbar spine ordered for further evaluation PT.OT On board. Fall precautions #Mouth droop in [place] setting of chronic slurred speech MRI brain ordered to rule out a stroke. CT brain showed no acute intracranial pathology neurology on board #Chronic slurred speech: speech therapy on board. #Benign essential hypertension: Lisinopril on hold pending MRI results. IV hydralazine. #Hypothyroidism in the setting of history of Juani's thyroiditis and diffuse thyroid goiter: stable. ON synthroid #TYpe 2 diabetes mellitus: on ISS. Accuchecks ACHS. A1c 6.8. #History of alcohol use disorder: Says she drinks wine about 3 times weekly. #Anxiety and depression: Bupropion #GERD: On PPI DVT prophylaxis: Lovenox CODE STATUS: DNR CCA no intubation Medications at Discharge Home Medications bupropion HCl 300 mg 24 hr tablet, extended release (Wellbutrin XL) 300 mg PO QAM depression 11/20/18 multivitamin with minerals-folic acid 0.4 mg tablet (Adult One Daily Multivitamin) 1 tab PO DAILY vitamin 11/20/18 fluticasone propionate 50 mcg/actuation nasal spray,suspension 1 spray NASAL DAILY PRN allergies 06/22/20 metformin 500 mg tablet 1,000 mg PO DAILY diabetes 08/04/20 levothyroxine 175 mcg tablet (Synthroid) 150 mcg PO DAILY hypothyroid 01/30/22 metformin 500 mg tablet 500 mg PO QHS diabetes 06/28/22 acetaminophen 500 mg tablet 1,000 mg (2 x 500 mg) PO Q8 pain #0 tabs 03/11/24 sennosides 8.6 mg-docusate sodium 50 mg tablet (Stool Softener-Stimulant Laxative) 2 tab PO BID bowels #0 tabs 03/26/24 Caffeine [No Doz] 300 mg PO DINNER PRN FATIQUE 07/14/24 Caffeine [No Doz] 300 mg PO LUNCH PRN FATIQUE 07/14/24 gabapentin 100 mg capsule 200 mg PO TIDCM nerve pain 07/14/24 omeprazole 40 mg capsule,delayed release 40 mg PO DAILY reflux 07/14/24 bupropion HCl 150 mg 24 hr tablet, extended release 150 mg PO DAILY mental health 10/26/25 clobetasol 0.05 % topical ointment topical 10/26/25 lisinopril 5 mg tablet 5 mg PO DAILY blood pressure 10/26/25 cefdinir 300 mg capsule 300 mg PO BID #10 caps 10/28/25 Hospital Course Operations None Procedures None Summary of Care Provided Minutes Spent on Discharge: 45 Hospital Course: Patient is a 75-year-old female with past medical history as outlined was admitted through the ED with complaint of bilateral lower extremity weakness and slurred speech. Lower extremity weakness was chronic and she was noted to have lumbar spinal stenosis. She said he had also had a mechanical fall about a year prior to admission when she sustained a left proximal femoral fracture and was operated on in February 2024. Since then she had had intermittent lower extremity weakness. She had had 2 falls at the day of admission. She did not pass out or hit her head or any other such symptoms. Review of systems otherwise negative. She was admitted for stroke rule out. MRI of the brain was negative for any stroke and CT of the brain was also negative for any stroke. She had thoracic and lumbar MRI which showed evidence of moderate to severe spinal stenosis of the neuroforaminal stenosis at L4-L5 mainly on the right side. She had thoracic spondylosis without high-grade spinal canal on neuroforaminal stenosis. She worked with therapy and did well. She was discharged home on 10/28/2025. She is follow-up with her primary care doctor and was referred to follow-up with spine surgery on outpatient basis. Of note 2D echo done showed normal EF and stage I diastolic dysfunction with mild to moderate tricuspid valve insufficiency. Of note, hospital course was also complicated by UTI and patient was discharged on p.o. Cefdinir and 300 mg twice daily for 5 days. Patient seen and examined prior to discharge. She had no complaints and felt well. Review of systems otherwise negative. Labs and vitals reviewed. Home medication reviewed and reconciled. Physical Exam Const alert, oriented x3 and no apparent distress General Appearance: cooperative and comfortable HEENT normocephalic, head/scalp atraumatic, hearing grossly normal bilaterally, moist oral mucous membranes and oropharynx normal Mouth: oral and palatal mucosa normal Eyes EOMs intact bilaterally and conjunctivae normal Neck supple and no JVD Lymph Lymphatic: no lymphedema noted Resp normal respiratory effort, normal air movement and clear to auscultation bilaterally Cardio regular rate, regular rhythm, S1 normal heart sound, S2 normal heart sound and no murmurs GI normal to inspection, nondistended, normoactive bowel sounds, soft to palpation and non-tender Extremity normal capillary refill, no clubbing, cyanosis or edema and no calf tenderness General Extremity: no tenderness to palpation of joints or extremities Skin General Skin Exam: no breakdown Neuro oriented x3, moves all extremities, no focal motor deficits and no sensory deficits noted Sensorium / Orientation: awake and alert Motor Exam: general weakness Psych thought process normal and cooperative Appearance: appropriate Weight / BMI Weight Weight: 139 lb 12.369 oz Body Mass Index (BMI) 21.9 ABG / Lab / Microbiology Data 10/28/25 03:59 10/28/25 03:24 Laboratory: Laboratory Results - last 24 hr 10/26/25 22:40: GGT 11 10/27/25 13:30: POC Glucose 116 H 10/27/25 21:33: POC Glucose 159 H 10/28/25 03:24: Sodium 143, Potassium 4.2, Chloride 108, Carbon Dioxide 24.0, Anion Gap 11, BUN 24 H, Creatinine 1.23 H, Estim Creat Clear Calc 38.43 L, Est GFR (MDRD) Non-Af 46 L, BUN/Creatinine Ratio 19.3, Glucose 133 H, Calcium 9.2 10/28/25 03:59: WBC 6.2, RBC 3.65 L, Hgb 13.0, Hct 38.9, MCV 106.6 H, MCH 35.6 H, MCHC 33.4, RDW Std Deviation 51.5 H, RDW [place]eff [place] 13.1, Plt Count 198, MPV 9.3, Immature Gran % (Auto) 0.500, Neut % (Auto) 65.5, Lymph % (Auto) 21.8, [place] % (Auto) 8.9, Eos % (Auto) 2.7, Baso % (Auto) 0.6, Absolute Neuts (auto) 4.1, Absolute Lymphs (auto) 1.35, Nucleated RBC % 0 10/28/25 06:35: POC Glucose 134 H 10/28/25 12:19: POC Glucose 189 H Microbiology: Microbiology 10/26/25 17:55 Urine, Clean Catch Urine Culture - Preliminary Klebsiella pneumoniae sp pneum Alpha Hemolytic Streptococcus Radiography Diagnostic Testing: Radiology Impression Lumbar Spine MRI 10/27/25 05:55 IMPRESSION: 1. Lumbar spondylosis most prominent at L3-L4 where there is moderate spinal canal stenosis and moderate left neural foraminal stenosis. At L4-L5, [id number] right neural foraminal stenosis. 2. Thoracic spondylosis without high-grade spinal canal or neural foraminal stenosis in the thoracic spine. 3. Additional details as discussed above. Reading Location: [facility] Thoracic Spine MRI 10/27/25 05:55 IMPRESSION: 1. Lumbar spondylosis most prominent at L3-L4 where there is moderate spinal canal stenosis and moderate left neural foraminal stenosis. At L4-L5, [id number] right neural foraminal stenosis. 2. Thoracic spondylosis without high-grade spinal canal or neural foraminal stenosis in the thoracic spine. 3. Additional details as discussed above. Reading Location: [facility] D/C Instructions Discharge Activity: Return to Normal Activity Weight Bearing Status: Weight bearing as tolerated Call your doctor if you observe: Fever of 101 or Higher, Shortness of breath, Dizziness, Swelling in the ankles and Chest pain DC O2, CPAP, BIPAP Needs Home O2 Discharge instructions: No Meaningful Use Info Meaningful Use Meaningful Use Diagnoses (Choose all that apply): None applicable Discharge Plan Admission Admit Date/Time: 10/27/25 16:49 Primary Reason for Your Visit: bilateral lower extremity weakness Attending Provider: Mary Carmen Weston Primary Care Provider: Praveen Lutz Consulting Providers: David Abraham; Jose Sow; Dora Killian; Rochelle Colon; Cami Pope; Jeremias Cote; Audelia Hackett; Jovanni Baez; Lucas Delgado; Nik Goldman; Nerissa Bowles; Madisyn Cantrell; Osmar Segal; Fernanda Blackmon; Britta Stallings; Tiffany Morton; Shaw Narvaez; Jamey Silva; Ilan Devries; Roxana Patino; Sina Terrell; Pedro Desir Instructions Patient Instructions: ED Fall Prevention, ED FALL-from [id number] Discharge Orders/Prescriptions Prescriptions: New cefdinir 300 mg capsule 300 mg PO BID Qty: 10 0RF Continued multivit with min-folic acid [Adult One Daily Multivitamin] 0.4 mg tablet 1 tab PO DAILY bupropion HCl [Wellbutrin XL] 300 mg tablet extended release 24 hr 300 mg PO QAM metformin 500 mg tablet 1,000 mg PO DAILY fluticasone propionate 1 SPRAY spray,suspension 1 spray NASAL DAILY PRN (Reason: allergies) levothyroxine [Synthroid] 175 mcg tablet 150 mcg PO DAILY metformin 500 mg Tablet 500 mg PO QHS acetaminophen 500 mg Tablet 1,000 mg PO Q8 Qty: 0 0RF sennosides-docusate sodium [Stool Softener-Stimulant Laxat] 8.6-50 mg Tablet 2 tab PO BID Qty: 0 0RF omeprazole 40 mg capsule,delayed release(DR/EC) 40 mg PO DAILY gabapentin 100 mg Capsule 200 mg PO TIDCM Caffeine [No Doz] 300 mg PO DINNER PRN (Reason: FATIQUE) Caffeine [No Doz] 300 mg PO LUNCH PRN (Reason: FATIQUE) lisinopril 5 mg tablet 5 mg PO DAILY clobetasol 0.05 % ointment topical bupropion HCl 150 mg tablet extended release 24 hr 150 mg PO DAILY Referrals / Follow Up: Romie Garcia MD [Med Staff - Active Staff, Orthopedics] - Within 1 Month Referral Note: see to establish care for spinal stenosis Praveen Lutz DO [Primary Care Provider, Family Practice] - Within 1 Week Disposition Disposition (needs filled in before D/C Order can be placed): Home, Self Care Charges/Coding Visit Charges Inpatient E&M: 66802 Disch Hosp >30min
== END 2025-10-28 14:01 | disposition home or self-care (01) | DRG 552 ==
LOC: ED 22:01 → PCU 22:42
PROVIDERS: Admitting Provider Internal Medicine; Emergency Provider Emergency Medicine; PCP Family Medicine; Visit Provider Student in an Organized Health Care Education/Training Program
DX: M48.061 Spinal stenosis, lumbar region without neurogenic claudication (principal); M48.04 Spinal stenosis, thoracic region; Z66 Do not resuscitate; E11.42 Type 2 diabetes mellitus with diabetic polyneuropathy; E03.9 Hypothyroidism, unspecified; I10 Essential (primary) hypertension; F32.A Depression, unspecified; K21.9 Gastro-esophageal reflux disease without esophagitis; F17.210 Nicotine dependence, cigarettes, uncomplicated; F41.9 Anxiety disorder, unspecified; M47.896 Other spondylosis, lumbar region; G62.9 Polyneuropathy, unspecified; F10.90 Alcohol use, unspecified, uncomplicated; M47.814 Spondylosis without myelopathy or radiculopathy, thoracic region; W19.XXXA Unspecified fall, initial encounter; R29.898 Other symptoms and signs involving the musculoskeletal system; Z79.84 Long term (current) use of oral hypoglycemic drugs; R47.81 Slurred speech; Z86.73 Personal history of transient ischemic attack (TIA), and cerebral infarction without residual deficits; Z79.899 Other long term (current) drug therapy; Z79.890 Hormone replacement therapy; R29.6 Repeated falls; R29.810 Facial weakness; R41.3 Other amnesia
CPT/HCPCS: 36415; 70450; 70496; 70498; 70551; 72146; 72148; 80048; 80061; 80076; 80307; 81001; 82077; 82607; 82746; 82962; 82977; 83036; 84439; 84443; 84481; 84484; 85025; 85610; 85730; 87077; 87086; 87088; 87186; 92610; 93005; 93306; 94762; 97162; 99285; Q9967; A4216

== ENCOUNTER 2025-11-08 23:43 | Emergency (ER) | payer MEDICARE, SELFPAY ==
[2025-11-08 23:43] VITALS: BP 134/87; PULSE 92; RESP 18; TEMP 36.7; O2SAT 98
--- OUTSIDE RECORDS SUMMARY | 2025-11-09 00:20 | XMS RPT_ITS | CCD ---
Author Organization [facility] Care Team Providers Care 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 Name Role Phone Dwayne NURSE EXTERN, Tessa L Unavailable Unavailable Dwayne NURSE EXTERN, Tessa L Unavailable Unavailable Dwayne NURSE EXTERN, Tessa L Unavailable Unavailable Summer Worrell DO Primary Care Provider Dr. Summer Worrell Primary Care Provider [phone] Dr. Summer Worrell Referring Provider Shantel RIGGING ENGINEER, RIGGING ENGINEER-C Dimple Attending Provider [phone] Dr. Summer Worrell Primary Care Provider [phone] Dr. Summer Worrell Referring Provider LILLIE Avendano Attending Provider [phone] Shantel RIGGING ENGINEER, RIGGING ENGINEER-C Dimple Attending Provider [phone] Dr. Yoel Dalal Attending Provider [phone] Dr. Summer Worrell Primary Care Provider [phone] Dr. Summer Worrell Referring Provider [phone] LILLIE Avendano Attending Provider [phone]) Shantel CASTELLANOS, RIGGING ENGINEER-C Dimple Attending Provider [phone] Dr. Yoel Dalal Attending Provider [phone]) Dr. Saturnion Jeter Attending Provider [phone] Dr. Rizwan Tabor Attending Provider [phone] Dr. Summer Worrell Primary Care Provider [phone]) Dr. Summer Worrell Referring Provider [phone] Dr. Summer Worrell Primary Care Provider [phone] Dr. Summer Worrell Referring Provider Dr. Summer Worrell Primary Care Provider [phone] Dr. Summer Worrell Referring Provider Dr. Saturnino Jeter Attending Provider Dr. Rizwan Tabor Attending Provider Dr. Summer Worrell Primary Care Provider [phone] Dr. Summer Worrell Referring Provider Dr. Saturnino Jeter Attending Provider Dr. Rizwan Tabor Attending Provider MD Goran Zafar Emergency Provider [phone] Arya Sapp Admit Provider Unavailabl e Dr. Arya Sapp Other Provider Unavailabl e Dr. Alireza Lang Other Provider [phone] Dr. Yoel Bass Attending Provider Dr. Yoel Bass Other Provider Dr. Summer Worrell Primary Care Provider Dr. Moise Glez Chi Admit Provider Dr. Moise Glez Chi Other Provider Dr. Jared Wells Attending Provider Dr. Summer Worrell Referring Provider FriendDr. Coleman Other Provider Dr. Moise Glez Chi Referring Provider [phone] Summer Worrell DO Primary Care Provider Alireza Roach MD Unavailable Alireza Roach MD Unavailable SUMMER WORRELL A Primary Care Unavailable MERCADO, DARREN Referring Unavailable ANAID, SUMMER A Primary Care Unavailable MERCADO, DARREN Referring Unavailable Summer Worrell Primary Care Unavailable Shantel RIGGING ENGINEER, Dimple Attending Unavailable Summer Worrell Referring Unavailable [...] Primary Care Unavailable DENISHA STEINER Referring Unavailable ANAID, SUMMER [...] Allergy to substance 8 Other: See Comments [facility] Work Phone: Medications Current Medications Medication Drug [...] Active BUPROPION HCL ER (XL) 300 MG [id number] qd BUPROPION HCL [id number] Tessa Rice LPN Comment on above: TAKE [...] 12:00am docusate sodium 50 mg / sennosides, mcc 8.6 mg oral tablet (5 sources) Start: [...] hydrochloride 5 mg oral tablet (14 sources) Y-vbgwjx-K-aspartate Receptor Antagonist take 1 tablet by mouth [...] 50 0 MG TABS tid METFORMIN HCL [id number] Tessa Rice LPN Comment on above: Take [...] TABS 5 days q wk LEVOTHYROXINE SODIUM [id number] Tessa Rice LPN SYNTHROID 175 MC G TABS 2 days q wk LEVOTHYROXINE SODIUM 37284807415 Tessa Rice LPN SYNTHROID 175 MC G TABS 2 days q wk LEVOTHYROXINE SODIUM [id number] Tessa Rice LPN SYNTHROID 200 MC G TABS 5 days q wk LEVOTHYROXINE SODIUM 25804775327 Tessa Rice LPN Comment on above: Take [...] Binder, Calcium CALCIUM CAPS qd CALCIUM CAPS [id number] Tessa Rice LPN cholecalciferol 0.025 mg oral [...] Discontinued (Course of therapy completed) estrogens, conjugated (mcc) 0.625 mg/ml vaginal cream (20 sources) Estrogen [...] MULTIVITAMIN EVANS LT TABS qd MULTIPLE VITAMINS-MINERALS 80998848799 Tessa Rice NURSE EXTERN MULTIPLE VITAMINS-MINERALS (1 source) MULTIVITAMIN EVANS LT TABS qd MULTIPLE VITAMINS-MINERALS 20473592601 Tessa Rice NURSE EXTERN nitrofurantoin, macrocrystals 25 mg / nitrofurantoin, monohydrate [...] Active OMEPRAZOLE 20 MG TBEC qd OMEPRAZOLE [id number] Tessa Rice LPN Comment on above: take 1 capsule by mo [facility] once daily ospemifene 60 mg oral tablet (17 sources) Start: 02-14-20 End: 03-07-20 take 1 tablet by mouth once daily at mealtime Ospemifene (Osphena) 60 mg tablet Discontinued 60 MG PO DAILY February 13, 2023 12:00am March 07, 2024 8:01pm must administer with food, preferably a high-fat meal CHOLECALCIFEROL (3 sources) VITAMIN D 1000 U NIT TABS qd CHOLECALCIFEROL [id number] Tessa Rice LPN Problems Active Problems Problem [...] (18 sources) Drug therapy finding; Translations: [Other mcc (current) drug therapy] Onset: 02-18-2018 02-18-2018 Episodic [...] Test Name Value Interpretation Reference Range Facility [facility] 09-23-2025 OV Office Visit (NRMDN) ---- SALONI HICKS ([id number]) 1950 F Date Time Provider Department 09/23/25 2:00 PM FELIX WU During your visit today, we recorded the following information about you: Pulse Blood pressure Weight Height 92/minute 129/77 64.3 kg 1.651 m Felix Wu APRN.ELIZABETH 09/23/2025 3:16 PM Signed [facility] - FOLLOW UP EVALUATION Summer Worrell DO [id number] [place] [address] Dear Summer Worrell DO: I had the [...] previous MRI of the lumbar spine from [facility] for review. 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 Normal [facility] RE[facility] ACETYLCHOLINE RECEPT/MODULATING 0 % Normal <=45 [facility] Comment on above: Order Comment: Speci men Type: BLOOD SPECIMENOrdering Facility: [facility] Address: [address] [place] [address] [place] [address] Result Comment: INTE RPRETIVE INFORMATION: Acetylcholine Modulating [...] developed and its performance characteristics determined by [facility]. It has not been cleared or approved by the [place] Food and Drug Administration. This test was performed in a CLIA certified laboratory and is intended for clinical purposes. Performed By: [facility] [address] [place] [address] Tariff Compiler: Robert Barton MD, PhD CLIA Number: [id number] Performed By: #### A CEMOD ####[facility] [id number] [place] [address] ALBUMIN/CREATININE RATIO, UR INEon 09-09-2025 Albumin DL <= 20 mg/L (U) [Mass/Vol] 30.2 mg/L Normal [facility] Comment on above: Order Comment: Speci men Type: URINE SPECIMEN [facility] Facility[facility] Address: [address] [place] [address] [place] [address] Performed By: #### U ACR #### [facility] CLIA [id number] [address] [place] [address] [place] Albumin/Creatinine (U) [Mass ratio] 35 mg/g High <30 [facility] Comment on above: Order Comment: Speci men Type: URINE SPECIMEN [facility]ing Facility: [facility] Address: [address] [place] [address] Result Comment: Adul t Male and Female Nephrotic Criteria: <30 mg/g is considered normal to mildly increased 30-300 mg/g is considered moderately increased >300 mg/g is considered severely increased KDIGO. (2013). KDIGO 2012 Clinical Practice Guideline for the Evaluation and Management of Chronic Kidney Disease. Official Journal of the International Society of Nephrology, 3(1), 1-150. Performed By: #### U ACR #### [facility] CLIA [id number] [address] [place] [address] [place] [facility] Creatinine (U) [Mass/Vol] 85.6 mg/dL Normal 20.0-300.0 [facility] Comment on above: Order Comment: Speci men Type: URINE SPECIMEN [facility] Facility[facility] Address: [address] [place] [address] Performed By: #### U ACR #### [facility] CLIA [id number] [address] [place] [address] [place] [facility] SANDY BY IFA WITH REFLEXon Nuclear Ab Ql (S) Negative Normal Negative [facility] Comment on above: Order Comment: Speci men Type: BLOOD SPECIMEN [facility]ing Facility: [facility] Address: [address] [place] [address] Result Comment: Anti -nuclear antibody test is used as an aid in diagnosis of systemic autoimmune diseases. Where positive and clinically warranted, follow-up using disease-specific testing is recommended. Low positive titers are not uncommon with advanced age, certain chronic infections, and malignancies among others. Test methodology: Indirect fluorescence immunoassay (IFA) using HEp-2 cells. Performed By: #### A NAIFR #### [facility] CLIA [id number] [address] [place] [address] [place] CBC W Auto Differential pane l (Bld)on 09-09-2025 Basophils (Bld) [#/Vol] 0.04 10*3/uL Normal <0.11 [facility] Comment on above: Order Comment: Speci men Type: BLOOD SPECIMEN [facility] Address: [address] [place] [address] Performed By: #### A NAIFR #### [facility] CLIA [id number] [address] [place] [address] [place] Basophils/100 WBC (Bld) 0.5 % Normal [facility] [place] Comment on above: Order Comment: Speci men Type: BLOOD SPECIMEN [facility] Address: [address] [place] [address] Performed By: #### A NAIFR #### [facility] CLIA [id number] [address] [place] [address] [place] Differential cell count method Nom (Bld) Auto Normal [facility] Comment on above: Order Comment: Speci men Type: BLOOD SPECIMEN [facility] Address: [address] [place] [address] Performed By: #### A NAIFR #### [facility] CLIA [id number] [address] [place] [address] [place] Eosinophils (Bld) [#/Vol] 0.30 10*3/uL Normal <0.46 [facility] Comment on above: Order Comment: Speci men Type: BLOOD SPECIMEN [facility] Address: [address] [place] [address] Performed By: #### A NAIFR #### [facility] CLIA [id number] [address] [place] [address] [place] Eosinophils/100 WBC (Bld) 4.0 % Normal [facility] Comment on above: Order Comment: Speci men Type: BLOOD SPECIMEN [facility] Address: [address] [place] [address] Performed By: #### A NAIFR #### [facility] CLIA [id number] [address] [place] [address] [place] Erythrocyte distribution width (RBC) [Ratio] 13.2 % Normal 11.5-15.0 [facility] Comment on above: Order Comment: Speci men Type: BLOOD SPECIMEN [facility] Facility[facility] Address: [address] [place] [address] [place] [address] Performed By: #### A NAIFR #### [facility] CLIA [id number] [address] [place] [address] [place] Hematocrit (Bld) [Volume fraction] 39.5 % Normal 36.0-46.0 [facility] Comment on above: Order Comment: Speci men Type: BLOOD SPECIMEN [facility] Address: [address] [place] [address] [place] [address] Performed By: #### A NAIFR #### [facility] CLIA [id number] [address] [place] [address] [place] Hemoglobin (Bld) [Mass/Vol] 13.3 g/dL Normal 11.5-15.5 [facility] Comment on above: Order Comment: Speci men Type: BLOOD SPECIMEN [facility] Address: [address] [place] [address] [place] [address] Performed By: #### A NAIFR #### [facility] CLIA [id number] [address] [place] [address] [place] Immature granulocytes (Bld) [#/Vol] 10*3/uL Normal <0.10 [facility] Comment on above: Order Comment: Speci men Type: BLOOD SPECIMEN [facility] Address: [address] [place] [address] [place] [address] Performed By: #### A NAIFR #### [facility] CLIA [id number] [address] [place] [address] [place] Immature granulocytes/100 WBC (Bld) 0.3 % Normal [facility] Comment on above: Order Comment: Speci men Type: BLOOD SPECIMEN [facility] Address: [address] [place] [address] [place] [address] Performed By: #### A NAIFR #### [facility] CLIA [id number] [facility] [place] [address] [place] Lymphocytes (Bld) [#/Vol] 1.69 10*3/uL Normal 1.00-4.00 [facility] Comment on above: Order Comment: Speci men Type: BLOOD SPECIMEN [facility] Address: [address] [place] [address] [place] [address] Performed By: #### A NAIFR #### [facility] CLIA [id number] [address] [place] [address] [place] Lymphocytes/100 WBC (Bld) 22.6 % Normal [facility] Comment on above: Order Comment: Speci men Type: BLOOD SPECIMEN [facility] Address: [address] [place] [address] [place] [address] Performed By: #### A NAIFR #### [facility] CLIA [id number] [address] [place] [address] [place] MCH (RBC) [Entitic mass] 35.0 pg High 26.0-34.0 [facility] Comment on above: Order Comment: Speci men Type: BLOOD SPECIMEN [facility] Address: [address] [place] [address] [place] [address] Performed By: #### A NAIFR #### [facility] CLIA [id number] [address] [place] [address] [place] MCHC (RBC) [Mass/Vol] 33.7 g/dL Normal 30.5-36.[address] [facility] Comment on above: Order Comment: Speci men Type: BLOOD SPECIMEN [facility] Address: [address] [place] [address] [place] [address] Performed By: #### A NAIFR #### [facility] CLIA [id number] [address] [place] [address] [place] MCV (RBC) [Entitic vol] 103.9 fL High 80.0-100.0 [facility] [place] Comment on above: Order Comment: Speci men Type: BLOOD SPECIMEN [facility] Address: [address] [place] [address] [place] [address] Performed By: #### A NAIFR #### [facility] CLIA [id number] [address] [place] [address] [place] Monocytes (Bld) [#/Vol] 0.43 10*3/uL Normal <0.87 [facility] Comment on above: Order Comment: Speci men Type: BLOOD SPECIMEN [facility] Facility[facility] Address: [address] [place], [place] [address] [address] Performed By: #### A NAIFR #### [facility] CLIA [id number] [address] [place] [address] [place] Monocytes/100 WBC (Bld) 5.7 % Normal [facility] [place] Comment on above: Order Comment: Speci men Type: BLOOD SPECIMEN [facility] Address: [address] [place] [address] [place] [address] Performed By: #### A NAIFR #### [facility] CLIA [id number] [address] [place] [address] [place] Neutrophils (Bld) [#/Vol] 5.00 10*3/uL Normal 1.45-7.50 [facility] Comment on above: Order Comment: Speci men Type: BLOOD SPECIMEN Order[facility] Address: [address] [place] [address] [place] [address] Performed By: #### A NAIFR #### [facility] CLIA [id number] [address] [place] [address] [place] Neutrophils/100 WBC (Bld) 66.9 % Normal [facility] Comment on above: Order Comment: Speci men Type: BLOOD SPECIMEN [facility] Address: [address] [place] [address] [place] [address] Performed By: #### A NAIFR #### [facility] CLIA [id number] [address] [place] [address] [place] Nucleated RBC (Bld) [#/Vol] 10*3/uL Normal <0.01 [facility] Comment on above: Order Comment: Speci men Type: BLOOD SPECIMEN Order[facility] Address: [address] [place] [address] Performed By: #### A NAIFR #### [facility] CLIA [id number] [address] [place] [address] [place] Nucleated RBC/100 WBC (Bld) [Ratio] 0.0 /100 WBC Normal [facility] Comment on above: Order Comment: Speci men Type: BLOOD SPECIMEN [facility] Address: [address] [place] [address] Performed By: #### A NAIFR #### [facility] CLIA [id number] [address] [place] [address] [place] Platelet mean volume (Bld) [Entitic vol] 9.2 fL Normal 9.0-12.7 [facility] Comment on above: Order Comment: Speci men Type: BLOOD SPECIMEN [facility] Address: [address] [place] [address] Performed By: #### A NAIFR #### [facility] CLIA [id number] [address] [place] [address] [place] Platelets (Bld) [#/Vol] 219 10*3/uL Normal 150-400 [facility] Comment on above: Order Comment: Speci men Type: BLOOD SPECIMEN [facility] Address: [address] [place] [address] Performed By: #### A NAIFR #### [facility] CLIA [id number] [address] [place] [address] [place] RBC (Bld) [#/Vol] 3.80 10*6/uL Low 3.90-5.20 [facility] Comment on above: Order Comment: Speci men Type: BLOOD SPECIMEN [facility] Address: [address] [place] [address] [place] [address] Performed By: #### A NAIFR #### [facility] CLIA [id number] [address] [place] [address] [place] WBC (Bld) [#/Vol] 7.48 10*3/uL Normal 3.70-11.00 [facility] Comment on above: Order Comment: Speci men Type: BLOOD SPECIMEN [facility] Address: [address] [place] [address] [place] [address] Performed By: #### A NAIFR #### [facility] CLIA [id number] [address] [place] [address] [place] COPPER BLOODon 09-09-2025 Copper [Mass/Vol] 95 ug/dL Normal 80-155 [facility] Comment on above: Order Comment: Speci men Type: BLOOD SPECIMEN [facility] Address: [address] [place] [address] [place] [address] Result Comment: This test was developed, and its performance characteristics determined by the [facility] Department of Pathology and Laboratory Medicine. It has not been cleared or approved by the FDA. The [facility] Department of Pathology and Laboratory Medicine is regulated under CLIA as qualified to perform high-complexity testing. This test is used for clinical purposes. It should not be regarded as investigational or for research. Performed By: #### A NAIFR #### [facility] CLIA [id number] [address] [place] [address] [place] CRP SerPl-mCncon 09-09-2025 CRP [Mass/Vol] mg/L Normal <0.9 [facility] Comment on above: Order Comment: Speci men Type: BLOOD SPECIMEN [facility] Address: [address] [place], [place] [address] [address] Performed By: #### A NAIFR #### [facility] CLIA [id number] [facility] [place] [address] [place] Comprehensive metabolic 2000 panelon 09-09-2025 Albumin [Mass/Vol] 4.3 g/dL Normal 3.9-4.9 [facility] Comment on above: Order Comment: Speci men Type: BLOOD SPECIMEN Order[facility] Address: [address] [place] [address] [place] [address] Performed By: #### A NAIFR #### [facility] CLIA [id number] [address] [place] [address] [place] ALP [Catalytic activity/Vol] 100 U/L Normal 34-123 [facility] Comment on above: Order Comment: Speci men Type: BLOOD SPECIMEN Order[facility] Facility[facility] Address: [address] [place] [address] Performed By: #### A NAIFR #### [facility] CLIA [id number] [address] [place] [address] [place] ALT [Catalytic activity/Vol] 15 U/L Normal 7-38 [facility] Comment on above: Order Comment: Speci men Type: BLOOD SPECIMEN Order[facility] Facility[facility] Address: [address] [place] [address] Performed By: #### A NAIFR #### [facility] CLIA [id number] [address] [place] [address] [place] Anion gap [Moles/Vol] 12 mmol/L Normal 8-[address] [facility] Comment on above: Order Comment: Speci men Type: BLOOD SPECIMEN Order[facility] Facility[facility] Address: [address] [place] [address] [place] [address] Performed By: #### A NAIFR #### [facility] CLIA [id number] [address] [place] [address] [place] AST [Catalytic activity/Vol] 21 U/L Normal 13-35 [facility] Comment on above: Order Comment: Speci men Type: BLOOD SPECIMEN Ordering Facility[facility] Address: [address] [place] [address] [place] [address] Performed By: #### A NAIFR #### [facility] CLIA [id number] [address] [place] [address] [place] Bilirubin [Mass/Vol] 0.3 mg/dL Normal 0.2-1.3 [facility] Comment on above: Order Comment: Speci men Type: BLOOD SPECIMEN Order[facility] Facility[facility] Address: [address] [place] [address] [place] [address] Performed By: #### A NAIFR #### [facility] CLIA [id number] [address] [place] [address] [place] Calcium [Mass/Vol] 9.5 mg/dL Normal 8.5-10.2 [facility] Comment on above: Order Comment: Speci men Type: BLOOD SPECIMEN Ordering Facility[facility] Address: [address] [place] [address] [place] [address] Performed By: #### A NAIFR #### [facility] CLIA [id number] [address] [place] [address] [place] Chloride [Moles/Vol] 103 mmol/L Normal 98-107 [facility] Comment on above: Order Comment: Speci men Type: BLOOD SPECIMEN Ordering Facility: [facility] Address: [address] [place] [address] [place] [address] Performed By: #### A NAIFR #### [facility] CLIA [id number] [address] [place] [address] [place] CO2 [Moles/Vol] 25 mmol/L Normal 22-30 [facility] Comment on above: Order Comment: Speci men Type: BLOOD SPECIMEN Ordering Facility: [facility] Address: [address] [place] [address] [place] [address] Performed By: #### A NAIFR #### [facility] CLIA [id number] [address] [place] [address] [place] [place] Creatinine [Mass/Vol] 0.97 mg/dL High 0.58-0.[address] [facility] Comment on above: Order Comment: Tk sauceda Type: BLOOD SPECIMEN Ordering Facility: [facility] Address: [address] [place] [address] Performed By: #### A NAIFR #### [facility] CLIA [id number] [address] [place] [address] [place] eGFRcr SerPlBld CKD-EPI 2020 61 mL/min/1.73m??? Normal >=60 [facility] Comment on above: Order Comment: Tk sauceda Type: BLOOD SPECIMEN Ordering Facility: [facility] Address: [address] [place] [address] Result Comment: Cande mated Glomerular Filtration Rate [...] GFR. Performed By: #### A NAIFR #### [facility] CLIA [id number] [address] [place] [address] [place] Glucose [Mass/Vol] 302 mg/dL High 74-99 [facility] Comment on above: Order Comment: Tk sauceda Type: BLOOD SPECIMEN Ordering Facility: [facility] Address: [address] [place] [address] Result Comment: The [place] Diabetes Association (ADA) provides guidance for cutoff [...] Standards of Medical Care in Diabetes 2016, [place] Diabetes Association. Diabetes Care. 2016.39(Suppl 1). Performed By: #### A NAIFR #### [facility] CLIA [id number] [address] [place] [address] [place] Potassium [Moles/Vol] 4.4 mmol/L Normal 3.7-5.[address] [facility] Comment on above: Order Comment: Speci men Type: BLOOD SPECIMEN Ordering Facility: [facility] Address: [address] [place] [address] [place] [address] Performed By: #### A NAIFR #### [facility] CLIA [id number] [address] [place] [address] [place] Protein [Mass/Vol] 7.2 g/dL Normal 6.3-8.0 [facility] Comment on above: Order Comment: Speci men Type: BLOOD SPECIMEN Ordering Facility: [facility] Address: [address] [place] [address] [place] [address] Performed By: #### A NAIFR #### [facility] CLIA [id number] [address] [place] [address] [place] Sodium [Moles/Vol] 140 mmol/L Normal 136-144 [facility] Comment on above: Order Comment: Speci men Type: BLOOD SPECIMEN Ordering Facility: [facility] Address: [address] [place] [address] [place] [address] Performed By: #### A NAIFR #### [facility] CLIA [id number] [address] [place] [address] [place] Urea nitrogen [Mass/Vol] 23 mg/dL High 7-21 [facility] Comment on above: Order Comment: Speci men Type: BLOOD SPECIMEN Ordering Facility: [facility] Address: [address] [place] [address] [place] [address] Performed By: #### A NAIFR #### [facility] CLIA [id number] [address] [place] [address] [place] ESR Westergren method (Bld) [Velocity]on 09-09-2025 ESR (Bld) [Velocity] 13 mm/h Normal 0-20 [facility] Comment on above: Order Comment: Speci men Type: BLOOD SPECIMENOrdering Facility: [facility] Address: [address] [place] [address] Performed By: #### 4 537-7 ####[facility] [id number] [place] [address] [place] GANGLIOSIDE (GM1) ANTIBODIES , IGG AND IGMon 09-09-2025 GM1 AB, IGM (RFL) 60 IV High 0-50 [facility] Comment on above: Order Comment: Speci men Type: BLOOD SPECIMEN Ordering Facility: [facility] Address: [address] [place] [address] Result Comment: INTE RPRETIVE INFORMATION: Ganglioside (GM1) [...] developed and its performance characteristics determined by [facility]. It has not been cleared or approved by the US Food and Drug Administration. This test was performed in a CLIA certified laboratory and is intended for clinical purposes. Performed By: [facility] [address] [place] [address] Tariff Compiler: Robert Barton MD, PhD CLIA Number: [id number] Performed By: #### A NAIFR #### [facility] CLIA [id number] [address] [place] [address] [place] GM1 ANTIBODY, IGG 4 IV Normal 0-50 [facility] Comment on above: Order Comment: Tk sauceda Type: BLOOD SPECIMEN Ordering Facility: [facility] Address: [address] [place] [address] Performed By: #### A NAIFR #### [facility] CLIA [id number] [facility] [place] [address] [place] HbA1c (Bld)on 09-09-2025 Average glucose Estimated from glycated hemoglobin (Bld) [Mass/Vol] 146 mg/dL Normal [facility] Comment on above: Order Comment: Tk sauceda Type: BLOOD SPECIMEN Ordering Facility: [facility] Address: [address] [place] [address] Result Comment: eAG: (Estimated average glucose) is a calculated value from HgbA1c and is bilingual inside sales representative of the average blood glucose level in the last 2-3 month period. Performed By: #### A NAIFR #### [facility] CLIA [id number] [address] [place] [address] [place] HbA1c (Bld) [Mass fraction] 6.7 % High 4.3-5.6 [facility] Comment on above: Order Comment: Tk sauceda Type: BLOOD SPECIMEN Ordering Facility: [facility] Address: [address] [place] [address] Result Comment: [place] Diabetes Association guidelines indicate that patients with HgbA1c in the range 5.7-6.4% are at increased risk for development of diabetes, and intervention by lifestyle modification may be beneficial. HgbA1c greater or equal to 6.5% is considered diagnostic of diabetes. Performed By: #### A NAIFR #### [facility] CLIA [id number] [address] [place] [address] [place] MYELIN ANTIBODY IGG, IFAon 1 MYELIN ANTIBODY IGG Negative Normal NEGATIVE [facility] Comment on above: Order Comment: Tk sauceda Type: BLOOD SPECIMENOrdering Facility: [facility] Address: [address] [place] [address] Result Comment: This test was performed using a kit that has not been cleared or approved by the FDA. The analytical performance characteristics of this test have been determined by [facility]. This test should not be used for diagnosis without confirmation by other medically established means. TEST PERFORMED AT: [id number] [facility] [address] [place] [address] Block Breaker Operator: Mike Tucker MD, PhD, INGRID Performed By: #### M YABG ####[facility] [id number] [place] [address] TSH SerPl-aCncon 09-09-2025 TSH Qn 36.900 m[IU]/L High 0.270-4.200 [facility] Comment on above: Order Comment: Speci men Type: BLOOD SPECIMEN Ordering Facility: [facility] Address: [address] [place] [address] Performed By: #### A NAIFRomain #### [facility] CLIA [id number] [address] [place] [address] OF [facility] CNOVon 08-29-2025 CNOV Office Visit (OBGYWM) ---- SALONI HICKS ([id number]) 1950 F Date Time Provider Department 08/29/25 2:45 PM PASTORA MURPHY OBGYWM During your visit today, we recorded the following information about you: Blood pressure Weight 116/58 64 kg Pastora Murphy APRN.CNM 08/29/2025 3:26 PM Signed Drawing Kiln Supervisor offered: Patient declines. Saloni Hicks is a [...] and anesthetized with 1mL 1% lidocaine. 3mm [place] punch used to biopsy region. 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 The biopsy result will assist your field crop farmworker to devise a treatment plan suitable to [...] burning [N94.89] Vulvar irritation [N90.89] Order(s):SURGICAL PATHOLOGY [[id number]] Order #: [id number] clobetasol (TEMOVATE) 0.05 % ointmentApply thin layer [...] Take 1 (more content not included)... Normal [facility] Pathology biopsy report Curtis (Tiss)on 08-29-2025 AP DISCLAIMER Normal [facility] Comment on above: Order Comment: Speci men Type: TISSUE SPECIMENOrdering Facility: [facility] Address: [address] [place] [address] Result Comment: Melanie michelle Developed Test (LDT) Disclaimer: Performance characteristics of immunohistochemical, immunofluorescent, and chromogenic in-situ hybridization tests have been determined by the performing laboratory within the [facility] Department of Pathology and Laboratory Medicine ([facility], [facility], [facility], [facility], [facility], [facility], or [facility]) in a manner consistent with CLIA requirements. One or more of these tests may not have been cleared or approved by the FDA. The [facility] Department of Pathology and Laboratory Medicine is regulated under CLIA as qualified to perform high-complexity testing. These tests are used for clinical purposes. These should not be regarded as investigational or for research. Positive and negative controls stain appropriately. Performed By: #### 6 6121-5 ####[facility] [id number] [place] [address] [place] CASE REPORT Normal [facility] Comment on above: Order Comment: Speci men Type: TISSUE SPECIMENOrdering Facility: [facility] Address: [address] [place] [address] Result Comment: Surg [facility] Pathology Report Case: [id number] Authorizing Provider: Pastora Murphy APRN.CNM Collected: 08/29/2025 03:28 PM Ordering Location: OB/Gynecology Received: 08/29/2025 04:40 PM Pathologist: Michelle Mckay MD Specimen: Vulva, Biopsy Performed By: #### 6 6121-5 ####[facility] [id number] [place] [address] [place] CLINICAL HISTORY vulvar atrophy Normal [facility] Comment on above: Order Comment: Speci men Type: TISSUE SPECIMENOrdering Facility: [facility] Address: [address] [place] [address] Performed By: #### 6 6121-5 ####[facility] [id number] [address] FINAL DIAGNOSIS Normal [facility] Comment on above: Order Comment: Speci men Type: TISSUE SPECIMENOrdering Facility: [facility] Address: [address] [place] [address] Result Comment: A. Haresh ireland, biopsy: - Consistent with lichen sclerosus. at 1107 EDT Performed By: #### 6 6121-5 ####[facility] LABIA [id number] [address] OF [facility] FINAL PERFORMING LAB Normal [facility] Comment on above: Order Comment: Speci men Type: TISSUE SPECIMENOrdering Facility: [facility] Address: [address] [place] [address] Result Comment: Diag nostic interpretation performed at: [facility], [address] [place] [address] CLIA# [id number] Tariff Compiler: Lion Majano MD Performed By: #### 6 6121-5 ####[facility]IA [id number] [address] OF [facility] GROSS DESCRIPTION Normal [facility] Comment on above: Order Comment: Speci men Type: TISSUE SPECIMENOrdering Facility: [facility] Address: [address] [place] [address] Result Comment: A. V ulva, Biopsy Received in formalin is a cylindrical segment of skin and subcutaneous tissue measuring 0.3 x 0.2 x 0.3 cm. On the skin surface there is a 0.3 cm, constantino-brown area. The specimen is bisected. Totally submitted in one cassette. DL August 29, 2025 11:19 PM Gross examination performed at [facility], [address] [place] [address] Performed By: #### 6 6121-5 ####[facility] [id number] [place] [address] [place] BACTERIAL VAGINOSIS NAATon 0 08-08-2025 Interpretation and review of laboratory results Normal [facility] Lactobacillus crispatus+gasseri+watson ii + Gardnerella vaginalis + Atopobium vaginae rRNA MU+probe Ql (Vag fld) Not detected Not detected [facility] Lactobacillus crispatus+gasseri+watson ii + Gardnerella vaginalis + Atopobium vaginae rRNA MU+probe Ql (Vag fld) Not detected Normal Not detected [facility] Comment on above: Order Comment: Speci men Type: SWABOrdering Facility: [facility] Address: [address] [place] [address] Performed By: #### C VTV, BVAMP ####[facility] [id number] [place] [address] [place] JOAN/TRICHOMONAS NAATon 0 08-08-2025 C. glabrata RNA MU+probe Ql (Vag fld) Not detected Not detected [facility] Joan sp DNA MU+probe Ql (Vag fld) Not detected Not detected [facility] Comment on above: The Joan species group target includes C. albicans, C. tropicalis, C. parapsilosis, and C. dubliniensis. Interpretation and review of laboratory results Normal [facility] T. vaginalis DNA MU+probe Ql (Unsp spec) Not detected Not detected [facility] C. glabrata RNA MU+probe Ql (Vag fld) Not detected Normal Not detected [facility] Comment on above: Order Comment: Speci men Type: BLOOD SPECIMEN Ordering Facility: [facility] Address: [address] [place] [address] [place] [address] Performed By: #### A NAIFR #### [facility] CLIA [id number] [address] [place] [address] [place] Joan sp DNA MU+probe Ql (Vag fld) Not detected Normal Not detected [facility] Comment on above: Order Comment: Speci men Type: BLOOD SPECIMEN Ordering Facility: [facility] Address: [address] [place] [address] Result Comment: The Joan species group target includes C. albicans, C. tropicalis, C. parapsilosis, and C. dubliniensis. Performed By: #### A NAIFR #### [facility] CLIA [id number] [address] [place] [address] T. vaginalis DNA MU+probe Ql (Unsp spec) Not detected Normal Not detected [facility] Comment on above: Order Comment: Speci men Type: BLOOD SPECIMEN Ordering Facility: [facility] Address: [address] [place] [address] Performed By: #### A NAIFR #### [facility] CLIA [id number] [address] [place] [address] OF [facility] CNOVon 08-08-2025 CNOV Office Visit (OBGYWM) ---- SALONI HICKS ([id number]) 1950 F Date Time Provider Department 08/08/25 9:30 AM PASTORA MURPHY OBGYWM During your visit today, we recorded the following information about you: Blood pressure Weight 120/76 64.1 kg Pastora Murphy APRN.CNM 08/09/2025 5:25 PM Addendum Drawing Kiln Supervisor offered: Patient declines. 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 Comments: Sexual Activity: Yes; No partner data on record; rarely Contraception: No contraception data on record PAST MEDICAL HISTORY Diagnosis Date Anxiety and depression 08/20/2017 Controlled type 2 diabetes mellitus without complication, without long-term current use of insulin ([facility]) 05/08/2017 Diabetic eye exam ([facility]) 07/07/2017 Last done: 06/26/2017 DM (diabetes mellitus) ([facility]) Essential hypertension 03/04/2018 GERD without esophagitis 08/20/2017 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 As applicable, any other physician, advance practice provider, medical student, or other health professional student that will be observing or involved in the sensitive examination for educational or training purposes was discussed with the Patient or Authorized Steel Hanger. The Patient or Authorized Steel Hanger has agreed to proceed with the sensitive examination. (Sensitive examination includes inspection and/or palpation of the breasts, pelvis, prostate and anorectal regions). EXAM: BP 120/76 Wt 141 lb 6.4 oz (64.1kg) GENERAL: pleasant, female in no apparent distress HEENT: Normocephalic and atraumatic NECK: Supple and full range of motion normal Bartholin's glands, urethra, [place]'s glands, no vulvar lesions, no cervical lesions, good vaginal support, normal appearing perineal body and perianal region. Admits to vulvar irritation on labia majora, minora, and vaginal. Sli (more content not included)... Normal [facility] Eliud 08-04-2025 JEREL Telephone (NRPRN) ---- FABIOLASALONI ([id number]) 1950 F Date Time Provider Department 08/04/25 [...] Status:Closed by DANITA SANCHEZ on 08/05/25 Normal [facility] MR Cervical spine WO contras ton [...] vertebrae with counting from the craniocervical junction. Commissary Representative: SAADIA Transcribe Date/Time: Jul 27 2025 1:31P Dictated by : DAVIN BARNETT MD This examination was interpreted and the report reviewed and electronically signed by: DAVIN BARNETT MD on Jul 27 2025 1:36PM [facility] DIVISION OF RADIOLOGY * * *Final Report* * * DATE OF EXAM: Jul 27 2025 12:43PM [facility] 0297 - MRI CERVICAL SPINE WO IVCON [...] foramina are patent. DIVISION OF RADIOLOGY Provider, [facility] - 07/27/2025 * * *Final Report* * * DATE OF EXAM: Jul 27 2025 12:43PM [facility] 0297 - MRI CERVICAL SPINE WO IVCON [...] vertebrae with counting from the craniocervical junction. Commissary Representative: PSCB Transcribe Date/Time: Jul 27 2025 1:31P Dictated by : DAVIN BARNETT MD This examination was interpreted and the report reviewed and electronically signed by: DAVIN BARNETT MD on Jul 27 2025 1:36PM EST [facility] Radiology Study observation (narrative) [facility] MR Cervical spine WO contras tOrdered By: Ccf Provider on 07-27-2025 [facility] MRI CERVICAL SPINE WO IVCONo n 07-27-2025 [...] vertebrae with counting from the craniocervical junction. Commissary Representative: SAADIA Transcribe Date/Time: Jul 27 2025 1:31P Dictated by : DAVIN BARNETT MD This examination was interpreted and the report reviewed and electronically signed by: DAVIN BARNETT MD on Jul 27 2025 1:36PM EST [id number] Normal [facility] [id number] 05-05-2025 [id number] HNO ID: [id number] Author: EVI PANTOJA CCC-SLP Service: ? Author Type: Speech Language Pathologist Type: [id number] Filed: 05/05/2025 09:12 Note Text: [facility] Speech Therapy Plan of Care Certification Patient Name: Saloni Hicks : 1950 CCF #: [id number] Date: 05/03/2025 To: Darren Mercado MD From [...] identified: Dysarthria of speech, Voice disorder RECOMMENDATION: JUKEBOX CHECKER Recommendations: Outpatient Speech Therapy Results and Recommendations [...] Duration: Planned Treatment Interventions: Dysarthria/Apraxia Reduction Training (88940, 42027), Patient / Caregiver Education/ Training, Voice Training (10085), Speech Treatment (52277) Current Frequency: (4 visits within 4 weeks) [...] the treatment plan for Saloni Hicks, CCF# [id number] for the period of 05/03/25 -- 06/02/25, established on 05/03/2025. Signature certifies the need for therapy services. [facility] [id number] 05-03-2025 [id number] HNO ID: [id number] Author: JENNIFER LOCKETT OTR/L Service: ? Author Type: Occupational Therapist Type: [id number] Filed: 05/03/2025 15:46 Note Text: [facility] Occupational Therapy Plan of Care Certification Patient Name: Saloni Hicks : 1950 CCF #: [id number] Date: 05/03/2025 To: Darren Mercado MD From [...] home management tasks. Patient will increase Right telephone coin box collector strength equal to L hand so that [...] Planned: 6 Planned Treatment Interventions: Therapeutic exercise (64185), Therapeutic activities (36554), Manual therapy (33258), Self-half-way management (58338) PLAN FOR NEXT VISIT:adjust HEP; check symptoms Patient demonstrates good understanding of plan of care and treatment. The above goals and plan of care were discussed and agreed upon by patient/family. For further details regarding this patient refer to the Occupational Therapy electronically documented visit dated 05/03/2025. Provider Attestation I have reviewed the treatment plan for Saloni Hicks, CCF# [id number] for the period of 05/03/25 -- 08/01/25, established on 05/03/2025. Signature certifies the need for therapy services. Normal [facility] CNTHERAPYon 05-03-2025 CNTHERAPY OT/PT/Speech Visit (LDSP) ---- SALONI HICKS ([id number]) 1950 F Date Time Provider Department 05/03/25 3:30 PM EVI PANTOJA Date Time Provider Department Center 05/03/2025 3:30 PM [id number] PANTOJA [facility] Reason for Visit: Speech Evaluation [1647] [...] by mouth every Friday and Friday. Normal [facility] CNTHERAPY OT/PT/Speech Visit (LTOT) ---- SALONI HICKS ([id number]) 1950 F Date Time Provider Department 05/03/25 2:15 PM JENNIFER LOCKETT LTROSE MARY Date Time Provider Department Center 05/03/2025 2:15 PM [id number] ERAPRYLMike*LTOT [facility] Reason for Visit: OT EVAL [748] Primary Visit Diagnosis: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 [R29.898] Other Visit [...] tablet by mouth every Friday and Friday. Health Service Worker: Therapy (PT/OT/Speech/Resp) ID: [id number] 05/03/2025 3:02 PM Author: JENNIFER LOCKETT Signed by JENNIFER LOCKETT OTR/Shira on 05/03/2025 at 3:02 PM Document text: Program_ID:[id number] Access Code: [email or web address] URL: [email or web address]/ Date: 05-03-2025 Prepared By: Jennifer Lockett [...] - 1 sets - 10 reps Normal [facility] THERAPY NTon 05-03-2025 THERAPY NT HNO ID: [id number] Author: JENNIFER LOCKETT OTR/Shira Service: Occupational Therapy Author Type: Occupational Therapist Type: Therapy (PT/OT/Speech/Resp) Filed: 05/03/2025 15:02 Note Text: Program_ID:[id number] Access Code: [email or web address] URL: [email or web address] Date: 05-03-2025 Prepared By: Jennifer Lockett [...] - 1 sets - 10 reps Normal [facility] CNTHERAPYon 04-26-2025 CNTHERAPY OT/PT/Speech Visit (PTWS) ---- FABIOLASALONI ([id number]) 1950 F Date Time Provider Department 04/26/25 12:00 PM PASTORA MATA Date Time Provider Department [facility] 04/26/2025 12:00 PM [id number] MATAoster [facility] Reason for Visit: PT Kierra [...] by mouth every Friday and Friday. Normal [facility] CNOVon 04-11-2025 CNOV Office Visit (NRESMD) ---- SALONI HICKS ([id number]) 1950 F Date Time Provider Department 04/11/25 3:[address] [facility] During your visit today, we recorded the following information about you: Temperature Pulse Blood pressure Weight 99 degrees 85/minute 159/91 62.5 kg Height 1.675 m Darren Mercado MD 07/28/2025 1:29 PM Addendum [facility] - NEW PATIENT EVALUATION Recording using [employer] software for draft documentation of the visit was discussed with the patient/authorized bilingual inside sales representative; all questions welcomed and answered. Patient/authorized bilingual inside sales representative agreed to proceed Referring Provider: Denisha Steiner [address] [facility] [address] Primary Care Provider: Summer Worrell DO [address] [facility] [address] Dear Denisha Steiner: Thank you for referring [...] placements and tasks. She also reports a mlg-fq-ntxvy-year history of balance problems, describing an inability [...] her right hand, making it difficult to picker tender objects. She does not endorse numbness in [...] [facility] [place] [facility] and was prescribed more drops. 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 She does not have any children. She reports a family history of diabetes and heart issues in her father, who worked for the [employer], and glaucoma in her mother. Her brother has a history of diabetes, and her sister has a history of obesity and multiple surgeries. She does not endorse a family history of similar walking troubles. Past Diagnostic Results: Imaging - MRI lumbar spine: Conducted at [facility]. Movement Disorders Medications Schedule - as of the start of the visit: Medications Questionnaires ALLERGIES Allergen Reactions Seasonal Allergies Other: See Comments pollen causes sneezing Current Outpatient Medications Medication Sig buPROPion XL (WELLBUTRIN XL) 150 mg 24 hr tablet Take 150 mg by mouth (more content not included)... Normal [facility] CNPNon 04-11-2025 CNPN Telephone (Interactive SupercomputingN) ---- SALONI HICKS ([id number]) 1950 F Date Time Provider Department 04/11/25 [...] Status:Closed by MARY ROSALES on 04/11/25 Normal [facility] BACTERIAL VAGINOSIS NAATon 0 03-17-2025 Lactobacillus crispatus+gasseri+watson ii + Gardnerella vaginalis + Atopobium vaginae rRNA MU+probe Ql (Vag fld) Not detected Normal Not detected [facility] Comment on above: Order Comment: Speci men Type: SWABOrdering Facility: [facility] Address: [address] [place] [address] Performed By: #### B VAMP, CVTV ####[facility] LABCLIA [id number] [place] [address] [place] JOAN/TRICHOMONAS NAATon 0 03-17-2025 C. glabrata RNA MU+probe Ql (Vag fld) Not detected Normal Not detected [facility] Comment on above: Order Comment: Speci men Type: SWABOrdering Facility: [facility] Address: [address] [place] [address] Performed By: #### B VAMP, CVTV ####[facility] LABCLIA [id number] [place] [address] [place] Joan sp DNA MU+probe Ql (Vag fld) Not detected Normal Not detected [facility] Comment on above: Order Comment: Speci men Type: SWABOrdering Facility: [facility] Address: [address] [place] [address] Result Comment: The Joan species group target includes C. albicans, C. tropicalis, C. parapsilosis, and C. dubliniensis. Performed By: #### B VAMP, CVTV ####[facility] LABCLIA [id number] [place] [address] [place] T. vaginalis DNA MU+probe Ql (Unsp spec) Not detected Normal Not detected [facility] Comment on above: Order Comment: Speci men Type: SWABOrdering Facility: [facility] Address: [address] [place] [address] Performed By: #### PEG GARCIA ####[facility] LABCLIA [id number] TARYN VELASQUEZ [id number] [place] [address] [place] CNOVon 03-17-2025 CNOV Office Visit (OBGYWM) ---- FABIOLASALONI ([id number]) 1950 F Date Time Provider Department 03/17/25 1:40 PM LAKEISHA LEMONS OBGYWM During your visit today, we recorded the following information about you: Blood pressure Weight Height 110/78 61.9 kg 1.689 m Lakeisha Lemons MD 03/17/2025 5:40 PM Signed Drawing Kiln Supervisor offered: Patient declines. Saloni is a 75 [...] discussed with the Patient or Patient's Authorized Steel Hanger. As applicable, any other physician, advance practice provider, medical student, or other health professional student that will be observing or involved in the sensitive examination for educational or training purposes was discussed with the Patient or Authorized Steel Hanger. The Patient or Authorized Steel Hanger has agreed to proceed with the sensitive examination. (Sensitive examination includes inspection and/or palpation of the breasts, pelvis, prostate and anorectal regions). EXAM: BP 110/78 Ht 5' 6.5 (1.69m) Wt 136 lb 6.4 oz (61.9kg) BMI 21.69 kg/(m2). GENERAL: pleasant, female in no apparent distress CHEST: Normal inspiratory effort PELVIC: external genitalia atrophic, normal Bartholin's glands, urethra, [place]'s glands, no vulvar lesions, no cervical lesions, [...] 2 BACTERIAL VAGINOSIS NAAT [SQBVAMP] Order #: [id number]. #:[id number] JOAN/TRICHOMONAS NAAT [SQCVTV] Order #: [id number]. #:[id number] Prescriptions as of 03/17/2025 - estradiol (ESTRACE) [...] mg c (more content not included)... Normal [facility] CNOVon 02-08-2025 CNOV Office Visit (PONCHO) ---- SALONI HICKS ([id number]) 1950 F Date Time Provider Department 02/08/25 [...] Denisha Steiner PA-C 02/08/2025 10:23 AM Signed [facility] Name: Saloni Hicks [...] and Plan (more content not included)... Normal [facility] Brain WO contraston 01-12 IMPRESSION: No evidence of an acute intracranial process. Ventriculomegaly which could relate to volume loss and/or communicating hydrocephalus such as NPH in the appropriate clinical setting. Commissary Representative: SAADIA Transcribe Date/Time: Jan 12 2025 2:38P Dictated by : RIZWAN SALDANA MD This examination was interpreted and the report reviewed and electronically signed by: RIZWAN SALDANA MD on Jan 12 2025 2:42PM [facility] DIVISION OF RADIOLOGY * * *Final Report* * * DATE OF EXAM: Jan 12 2025 2:19PM [facility] 0294 - MRI BRAIN WO IVCON / [...] Orbits are unremarkable. DIVISION OF RADIOLOGY Provider, [facility] [place] - 01/12/2025 * * *Final Report* * * DATE OF EXAM: Jan 12 2025 2:19PM [facility] 0294 - MRI BRAIN WO IVCON / [...] as NPH in the appropriate clinical setting. Commissary Representative: SAADIA Transcribe Date/Time: Jan 12 2025 2:38P Dictated by : RIZWAN SALDANA MD This examination was interpreted and the report reviewed and electronically signed by: RIZWAN SALDANA MD on Jan 12 2025 2:42PM [facility] Radiology Study observation (narrative) [facility] MR Brain WO contrastOrdered By: Ccf Provider on 01-12-2025 [facility] MRI BRAIN WO IVCONon 025 MRI BRAIN WO IVCON * * *Final Report* * * DATE OF EXAM: Jan 12 2025 2:19PM [facility] 0294 - MRI BRAIN WO IVCON / [...] as NPH in the appropriate clinical setting. Commissary Representative: SAADIA Transcribe Date/Time: Jan 12 2025 2:38P Dictated by : RIZWAN SALDANA MD This examination was interpreted and the report reviewed and electronically signed by: RIZWAN SALDANA MD on Jan 12 2025 2:42PM EST [id number] Normal [facility] Eliud 01-11-2025 ELIZABETHN Telephone (PONCHO) ---- SALONI HICKS ([id number]) 1950 F Date Time Provider Department 01/11/25 DENISHA STEINER During your visit today, we recorded the following information about you: Alpa Peralta RN 01/11/2025 10:24 AM Signed Patient calls to report that she had an MRI of her brain done at [facility] in May of 2023. Patient asking if she would still need to have the current ordered MRI completed on 01/12/2025. Patient has results if needs to drop them off she will. Please call her back at [phone]. AQUILES Mejia Jessica, LPN 01/12/2025 1:43 PM [...] Status:Closed by PASTORA DONALDSON on 01/12/25 Normal [facility] CNOVon 01-04-2025 CNOV Office Visit ([place]) ---- SALONI HICKS ([id number]) 1950 F Date Time Provider Department 01/04/25 12:45 PM DENISHA STEINER During your visit today, we recorded the following information about you: Pulse Respiration Blood pressure Weight 85/minute 18/minute 144/87 62 kg Denisha Steiner PA-C 01/04/2025 1:51 PM Signed [facility] Name: Saloni Hicks [...] spinal specialist at an outside clinic at [facility] and was told she had significant degeneration [...] a half (more content not included)... Normal [facility] Dexa Bone Density Studyon Dexa Bone Density Study [facility] Imaging Services [address] [place] [address] Dexa Bone Density Study MR#: [id number] Acct: [id number] Name: SALONI HICKS Rep #: [id number] : 1950 F 74 From: Michael verma MD PCP: Dr. Summer Worrell, DO Status: REG CLI Study: Dexa Bone Density Study Date of Exam: 09/23/24 Exam# [id number] Ordering Dr: Summer Worrell DO -[id number] STUDY: DUAL ENERGY X-RAY ABSORPTIOMETRY / [...] EST , CC: Dr. 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 [address] [place] [address] / REHABILITATION SERVICES INITIAL EVALUATION MR#: [id number] Acct: [id number] Name: SALONI HICKS Rep #: [id number] : 1950 74 From: Yoel Duarte DPT, [...] strength(home and [facility]), weight shift and balance, and fucnitonal [...] them all Objective Objective: Walks with wh [id number] with short steps into PT veering R [...] to be FAXED BACK to us at [phone] for Medicare purposes. (more content not included)... Normal [facility] Thin prep Papanicolaou smear with manual screeningOrdered By: Moise Glez on 03-29-2024 Thin prep Papanicolaou smear with manual screening 135 mg/dL 74-106 [facility] Comment on above: MANAGEMENT OF PATIEN T CARE PER NURSING PROTOCOL Absolute lymphocyte countOrd ered By: Moise Glez on 03-26-2024 Lymphocytes Auto (Unsp spec) [#/Vol] 1.19 10*3/uL 0.83-4.51 [facility] Automated lymphocyte count a s percentage of total leukocytesOrdered By: Moise Glez on 03-26-2024 Lymphocytes/100 WBC Auto (Unsp spec) 13.4 % 19-41 [facility] Basophil percentageOrdered B y: Moise Glez on 03-26-2024 Basophils/100 WBC (Bld) 0.5 % 0-1 [facility] Chloride [Moles/Vol] 105 mmol/L 98-107 [facility] Eosinophils/100 WBC (Bld) 4.3 % 0-5 [facility] Glucose [Mass/Vol] 142 mg/dL 74-106 [facility] Comment on above: Fasting Glucose resu lt greater than or equal to 126 mg/dL suggests DIABETES MELLITUS per A.D.A. criteria. Hemoglobin (Bld) [Mass/Vol] 11.0 g/dL 12.0-15.0 [facility] Monocytes/100 WBC (Bld) 7.1 % 0-10 [facility] Neutrophils (Bld) [#/Vol] 6.6 10*3/uL 2.0-7.7 [facility] Neutrophils/100 WBC (Bld) 74.4 % 47-70 [facility] Potassium [Moles/Vol] 3.7 mmol/L 3.5-5.1 [facility] Sodium [Moles/Vol] 138 mmol/L 136-145 [facility] WBC (Bld) [#/Vol] 8.9 10*3/uL 4.4-11.0 [facility] Determination of erythrocyte mean corpuscular volume (MCV)Ordered By: Moise Glez on 03-26-2024 MCV (RBC) [Entitic vol] 102.7 fL 81-99 [facility] Erythrocyte distribution wid th ratioOrdered By: Moise Glez on 03-26-2024 Erythrocyte distribution width (RBC) [Ratio] 16.5 % 11.6-14.6 [facility] Erythrocyte distribution wid th standard deviationOrdered By: Moise Glez on 03-26-2024 Erythrocyte distribution width (RBC) [Entitic vol] 62.0 fL 35.1-43.9 [facility] Hematocrit Auto (Bld) [Volum e fraction]Ordered By: Moise Glez on 03-26-2024 Hematocrit (Bld) [Volume fraction] 34.5 % 37-47 [facility] Immature granulocytes/100 WB C Auto (Bld)Ordered By: Moise Glez on 03-26-2024 Immature granulocytes/100 WBC (Bld) 0.300 % 0.0-0.9 [facility] Comment on above: IG% - Immature Granu locytes (promyelocytes, myelocytes and metamyelocytes) > 1% indicates that a LEFT SHIFT is Present. Laboratory - Chemistry and C hemistry - challengeOrdered By: Moise Glez on 03-26-2024 CO2 [Moles/Vol] 28.0 mmol/L 21.0-32.0 [facility] Urea nitrogen/Creatinine [Mass ratio] 22.2 mg/mg 10-20 [facility] Laboratory - Hematology and Cell countsOrdered By: Moise Glez on 03-26-2024 MCH (RBC) [Entitic mass] 32.7 pg 27.0-32.0 [facility] MCHC (RBC) [Mass/Vol] 31.9 g/dL [facility] Nucleated RBC/100 WBC (Bld) [Ratio] 0 % 0-5 [facility] Platelet mean volume (Bld) [Entitic vol] 8.7 fL 6.2-12.0 [facility] Platelets (Bld) [#/Vol] 368 10*3/uL 150-450 [facility] No Panel InformationOrdered By: Moise Glez on 03-26-2024 Estimated Creatinine Clearance Calc 44.15 ml/min [facility] Estimated GFR (MDRD) Amer 64 mL/min >60 [facility] Comment on above: GFR Calc Estimated GFR (MDRD) Non-Af Amer 53 mL/min >60 [facility] Comment on above: Non- GFR Calc RBC Auto (Bld) [#/Vol]Ordere d By: Moise Glez on 03-26-2024 RBC (Bld) [#/Vol] 3.36 10*6/uL 4.2-5.4 [facility] Serum or plasma calcium josué urement (mass/volume)Ordered By: Moise Glez on 03-26-2024 Calcium [Mass/Vol] 9.0 mg/dL 8.5-10.1 [facility] Serum or plasma creatinine m easurement (mass/volume)Ordered By: Moise Glez on 03-26-2024 Creatinine [Mass/Vol] 1.08 mg/dL 0.55-1.02 [facility] Comment on above: The validity of the calculated GFR & GFRAA in patients over 70 years has not been determined. Clinical correlation is essential. Serum or plasma urea nitroge n measurement (mass/volume)Ordered By: Moise Glez on 03-26-2024 Urea nitrogen [Mass/Vol] 24 mg/dL 7-18 [facility] Thin prep Papanicolaou smear with manual screeningOrdered By: Moise Glez on 03-26-2024 Thin prep Papanicolaou smear with manual screening 5 5-15 [facility] Absolute lymphocyte countOrd ered By: [facility] on 03-19-2024 Lymphocytes Auto (Unsp spec) [#/Vol] 1.25 10*3/uL 0.83-4.51 [facility] Automated lymphocyte count a s percentage of total leukocytesOrdered By: Moise Glez on 03-19-2024 Lymphocytes/100 WBC Auto (Unsp spec) 13.7 % 19-41 [facility] Basophil percentageOrdered B y: Moise Glez on 03-19-2024 Basophils/100 WBC (Bld) 0.5 % 0-1 [facility] Chloride [Moles/Vol] 105 mmol/L 98-107 [facility] Eosinophils/100 WBC (Bld) 3.8 % 0-5 [facility] Glucose [Mass/Vol] 139 mg/dL 74-106 [facility] Comment on above: Fasting Glucose resu lt greater than or equal to 126 mg/dL suggests DIABETES MELLITUS per A.D.A. criteria. Hemoglobin (Bld) [Mass/Vol] 11.2 g/dL 12.0-15.0 [facility] Monocytes/100 WBC (Bld) 7.7 % 0-10 [facility] Neutrophils (Bld) [#/Vol] 6.7 10*3/uL 2.0-7.7 [facility] Neutrophils/100 WBC (Bld) 73.0 % 47-70 [facility] Potassium [Moles/Vol] 4.1 mmol/L 3.5-5.1 [facility] Sodium [Moles/Vol] 135 mmol/L 136-145 [facility] WBC (Bld) [#/Vol] 9.1 10*3/uL 4.4-11.0 [facility] Determination of erythrocyte mean corpuscular volume (MCV)Ordered By: Moise Glez on 03-19-2024 MCV (RBC) [Entitic vol] 99.7 fL 81-99 [facility] Erythrocyte distribution wid th ratioOrdered By: Moise Glez on 03-19-2024 Erythrocyte distribution width (RBC) [Ratio] 16.5 % 11.6-14.6 [facility] Erythrocyte distribution wid th standard deviationOrdered By: Moise Glez on 03-19-2024 Erythrocyte distribution width (RBC) [Entitic vol] 59.0 fL 35.1-43.9 [facility] Hematocrit Auto (Bld) [Volum e fraction]Ordered By: Moise Glez on 03-19-2024 Hematocrit (Bld) [Volume fraction] 34.7 % 37-47 [facility] Immature granulocytes/100 WB C Auto (Bld)Ordered By: Moise Glez 03-19-2024 Immature granulocytes/100 WBC (Bld) 1.300 % 0.0-0.9 [facility] Comment on above: IG% - Immature Granu locytes (promyelocytes, myelocytes and metamyelocytes) > 1% indicates that a LEFT SHIFT is Present. Laboratory - Chemistry and C hemistry - challengeOrdered By: Moise Glez 03-19-2024 CO2 [Moles/Vol] 25.0 mmol/L 21.0-32.0 [facility] Urea nitrogen/Creatinine [Mass ratio] 27.4 mg/mg 10-20 [facility] Laboratory - Hematology and Cell countsOrdered By: Moise Glez 03-19-2024 MCH (RBC) [Entitic mass] 32.2 pg 27.0-32.0 [facility] MCHC (RBC) [Mass/Vol] 32.3 g/dL 32-36 [facility] Nucleated RBC/100 WBC (Bld) [Ratio] 0 % 0-5 [facility] Platelet mean volume (Bld) [Entitic vol] 8.9 fL 6.2-12.0 [facility] Platelets (Bld) [#/Vol] 334 10*3/uL 150-450 [facility] No Panel InformationOrdered By: Moise Glez on 03-19-2024 Estimated Creatinine Clearance Calc 41.02 ml/min [facility] Estimated GFR (MDRD) Amer 58 mL/min >60 [facility] Comment on above: GFR Calc Estimated GFR (MDRD) Non-Af Amer 48 mL/min >60 [facility] Comment on above: Non- GFR Calc RBC Auto (Bld) [#/Vol]Ordere d By: Moise Glez on 03-19-2024 RBC (Bld) [#/Vol] 3.48 10*6/uL 4.2-5.4 [facility] Serum or plasma calcium josué urement (mass/volume)Ordered By: Moise Glez on 03-19-2024 Calcium [Mass/Vol] 8.9 mg/dL 8.5-10.1 [facility] Serum or plasma creatinine m easurement (mass/volume)Ordered By: Moise Glez on 03-19-2024 Creatinine [Mass/Vol] 1.17 mg/dL 0.55-1.02 [facility] Comment on above: The validity of the calculated GFR & GFRAA in patients over 70 years has not been determined. Clinical correlation is essential. Serum or plasma urea nitroge n measurement (mass/volume)Ordered By: Moise Glez on 03-19-2024 Urea nitrogen [Mass/Vol] 32 mg/dL 7-18 [facility] Thin prep Papanicolaou smear with manual screeningOrdered By: Jared Wells on 03-19-2024 Thin prep Papanicolaou smear with manual screening 151 mg/dL 74-106 [facility] Comment on above: MANAGEMENT OF PATIEN T CARE PER NURSING PROTOCOL Thin prep Papanicolaou smear with manual screeningOrdered By: Moise Glez on 03-19-2024 Thin prep Papanicolaou smear with manual screening 5 5-15 [facility] Thin prep Papanicolaou smear with manual screeningOrdered By: Moise Glez on 03-18-2024 Thin prep Papanicolaou smear with manual screening 129 mg/dL 74-106 [facility] Comment on above: MANAGEMENT OF PATIEN T CARE PER NURSING PROTOCOL Iron measurement (mass/mass) Ordered By: Moise Glez on 03-17-2024 Iron (Unsp spec) [Mass/Mass] 62 ug/dL 50-170 [facility] Lower GI hemoglobin IA Ql (S tl)Ordered By: Moise Glez on 03-17-2024 Stool Occult Blood (LOTTIE) Positive [facility] No Panel InformationOrdered By: Moise Glez on 03-17-2024 Total Iron Binding Capacity 337 ug/dL 250-450 [facility] Serum or plasma iron saturat ion measurement (mass fraction)Ordered By: Moise Glez on 03-17-2024 Iron saturation [Mass fraction] 18.4 % 15.0-55.0 [facility] Thin prep Papanicolaou smear with manual screeningOrdered By: Moise Glez on 03-13-2024 Thin prep Papanicolaou smear with manual screening 142 mg/dL 74-106 [facility] Comment on above: MANAGEMENT OF PATIEN T CARE PER NURSING PROTOCOL Absolute lymphocyte countOrd ered By: Moise Glez on 03-12-2024 Lymphocytes Auto (Unsp spec) [#/Vol] 0.89 10*3/uL 0.83-4.51 [facility] Automated lymphocyte count a s percentage of total leukocytesOrdered By: Moise Glez on 03-12-2024 Lymphocytes/100 WBC Auto (Unsp spec) 12.8 % 19-41 [facility] Basophil percentageOrdered B y: Moise Glez on 03-12-2024 Basophils/100 WBC (Bld) 0.3 % 0-1 [facility] Chloride [Moles/Vol] 110 mmol/L 98-107 [facility] Eosinophils/100 WBC (Bld) 6.6 % 0-5 [facility] Glucose [Mass/Vol] 161 mg/dL 74-106 [facility] Comment on above: Fasting Glucose resu lt greater than or equal to 126 mg/dL suggests DIABETES MELLITUS per A.D.A. criteria. Hemoglobin (Bld) [Mass/Vol] 7.4 g/dL 12.0-15.0 [facility] Monocytes/100 WBC (Bld) 8.3 % 0-10 [facility] Neutrophils (Bld) [#/Vol] 5.0 10*3/uL 2.0-7.7 [facility] Neutrophils/100 WBC (Bld) 71.3 % 47-70 [facility] Potassium [Moles/Vol] 3.6 mmol/L 3.5-5.1 [facility] Sodium [Moles/Vol] 140 mmol/L 136-145 [facility] WBC (Bld) [#/Vol] 7.0 10*3/uL 4.4-11.0 [facility] Determination of erythrocyte mean corpuscular volume (MCV)Ordered By: Moise Glez on 03-12-2024 MCV (RBC) [Entitic vol] 105.9 fL 81-99 [facility] Erythrocyte distribution wid th ratioOrdered By: Moise Glez on 03-12-2024 Erythrocyte distribution width (RBC) [Ratio] 13.6 % 11.6-14.6 [facility] Erythrocyte distribution wid th standard deviationOrdered By: Moise Newton on 03-12-2024 Erythrocyte distribution width (RBC) [Entitic vol] 52.1 fL 35.1-43.9 [facility] Hematocrit Auto (Bld) [Volum e fraction]Ordered By: Moise Glez on 03-12-2024 Hematocrit (Bld) [Volume fraction] 23.2 % 37-47 [facility] Immature granulocytes/100 WB C Auto (Bld)Ordered By: Moise Glez 03-12-2024 Immature granulocytes/100 WBC (Bld) 0.700 % 0.0-0.9 [facility] Comment on above: IG% - Immature Granu locytes (promyelocytes, myelocytes and metamyelocytes) > 1% indicates that a LEFT SHIFT is Present. Laboratory - Chemistry and C hemistry - challengeOrdered By: Moise Glez 03-12-2024 CO2 [Moles/Vol] 27.0 mmol/L 21.0-32.0 [facility] Urea nitrogen/Creatinine [Mass ratio] 25.7 mg/mg 10-20 [facility] Laboratory - Hematology and Cell countsOrdered By: Moise Glez 03-12-2024 MCH (RBC) [Entitic mass] 33.8 pg 27.0-32.0 [facility] MCHC (RBC) [Mass/Vol] 31.9 g/dL 32-36 [facility] Nucleated RBC/100 WBC (Bld) [Ratio] 0 % 0-5 [facility] Platelet mean volume (Bld) [Entitic vol] 9.6 fL 6.2-12.0 [facility] Platelets (Bld) [#/Vol] 179 10*3/uL 150-450 [facility] No Panel InformationOrdered By: Moise Glez on 03-12-2024 Estimated Creatinine Clearance Calc 49.48 ml/min [facility] Estimated GFR (MDRD) Amer 72 mL/min >60 [facility] Comment on above: GFR Calc Estimated GFR (MDRD) Non-Af Amer 60 mL/min >60 [facility] Comment on above: Non- GFR Calc RBC Auto (Bld) [#/Vol]Ordere d By: Moise Glez on 03-12-2024 RBC (Bld) [#/Vol] 2.19 10*6/uL 4.2-5.4 [facility] Serum or plasma calcium josué urement (mass/volume)Ordered By: Moise Glez on 03-12-2024 Calcium [Mass/Vol] 8.6 mg/dL 8.5-10.1 [facility] Serum or plasma creatinine m easurement (mass/volume)Ordered By: Moise Glez on 03-12-2024 Creatinine [Mass/Vol] 0.97 mg/dL 0.55-1.02 [facility] Comment on above: The validity of the calculated GFR & GFRAA in patients over 70 years has not been determined. Clinical correlation is essential. Serum or plasma urea nitroge n measurement (mass/volume)Ordered By: Moise Glez on 03-12-2024 Urea nitrogen [Mass/Vol] 25 mg/dL 7-18 [facility] Thin prep Papanicolaou smear with manual screeningOrdered By: Moise Glez on 03-12-2024 Thin prep Papanicolaou smear with manual screening 3 5-15 [facility] Thin prep Papanicolaou smear with manual screeningOrdered By: Yoel Bass on 03-11-2024 Thin prep Papanicolaou smear with manual screening 225 mg/dL 74-106 [facility] Comment on above: MANAGEMENT OF PATIEN T CARE PER NURSING PROTOCOL Thin prep Papanicolaou smear with manual screeningOrdered By: Yoel Bass on 03-10-2024 Thin prep Papanicolaou smear with manual screening 147 mg/dL 74-106 [facility] Comment on above: MANAGEMENT OF PATIEN T CARE PER NURSING PROTOCOL Absolute lymphocyte countOrd ered By: Arya Ayala on 03-08-2024 Lymphocytes Auto (Unsp spec) [#/Vol] 0.89 10*3/uL 0.83-4.51 [facility] Automated lymphocyte count a s percentage of total leukocytesOrdered By: Arya Ayala on 03-08-2024 Lymphocytes/100 WBC Auto (Unsp spec) 9.6 % 19-41 [facility] Basophil percentageOrdered B y: Arya Ayala on 03-08-2024 Basophil percentage 3.5 mg/dL 2.5-4.9 [facility] Basophils/100 WBC (Bld) 0.2 % 0-1 [facility] Bilirubin [Mass/Vol] 0.40 mg/dL 0.20-1.00 [facility] Comment on above: For patients on eltr ombopag therapy, use of Dimension [place] TBIL is not recommended. Chloride [Moles/Vol] 106 mmol/L 98-107 [facility] Eosinophils/100 WBC (Bld) 0.3 % 0-5 [facility] Glucose [Mass/Vol] 185 mg/dL 74-106 [facility] Comment on above: Fasting Glucose resu lt greater than or equal to 126 mg/dL suggests DIABETES MELLITUS per A.D.A. criteria. Hemoglobin (Bld) [Mass/Vol] 11.3 g/dL 12.0-15.0 [facility] Monocytes/100 WBC (Bld) 7.2 % 0-10 [facility] Neutrophils (Bld) [#/Vol] 7.6 10*3/uL 2.0-7.7 [facility] Neutrophils/100 WBC (Bld) 82.3 % 47-70 [facility] Potassium [Moles/Vol] 4.2 mmol/L 3.5-5.1 [facility] Protein [Mass/Vol] 7.0 g/dL 6.4-8.2 [facility] Sodium [Moles/Vol] 135 mmol/L 136-145 [facility] WBC (Bld) [#/Vol] 9.3 10*3/uL 4.4-11.0 [facility] Determination of erythrocyte mean corpuscular volume (MCV)Ordered By: Arya Ayala on 03-08-2024 MCV (RBC) [Entitic vol] 104.9 fL 81-99 [facility] Erythrocyte distribution wid th ratioOrdered By: Arya Ayala on 03-08-2024 Erythrocyte distribution width (RBC) [Ratio] 13.2 % 11.6-14.6 [facility] Erythrocyte distribution wid th standard deviationOrdered By: Arya Ayala on 03-08-2024 Erythrocyte distribution width (RBC) [Entitic vol] 50.9 fL 35.1-43.9 [facility] Hematocrit Auto (Bld) [Volum e fraction]Ordered By: Arya Ayala on 03-08-2024 Hematocrit (Bld) [Volume fraction] 34.4 % 37-47 [facility] Immature granulocytes/100 WB C Auto (Bld)Ordered By: Arya Ayala on 03-08-2024 Immature granulocytes/100 WBC (Bld) 0.400 % 0.0-0.9 [facility] Comment on above: IG% - Immature Granu locytes (promyelocytes, myelocytes and metamyelocytes) > 1% indicates that a LEFT SHIFT is Present. Laboratory - Chemistry and C hemistry - challengeOrdered By: Arya Ayala on 03-08-2024 Albumin/Globulin [Mass ratio] 1.0 {ratio} 0.9-2.4 [facility] ALP [Catalytic activity/Vol] 77 U/L 45-117 [facility] ALT [Catalytic activity/Vol] 24 U/L 13-56 [facility] CO2 [Moles/Vol] 25.0 mmol/L 21.0-32.0 [facility] Cobalamin (Vitamin B12) [Mass/Vol] 1027 pg/mL 211-911 [facility] Globulin (S) [Mass/Vol] 3.5 g/dL 2.2-4.2 [facility] Magnesium [Mass/Vol] 1.9 mg/dL 1.6-2.6 [facility] Urea nitrogen/Creatinine [Mass ratio] 22.2 mg/mg 10-20 [facility] Laboratory - Hematology and Cell countsOrdered By: Arya Ayala on 03-08-2024 MCH (RBC) [Entitic mass] 34.5 pg 27.0-32.0 [facility] MCHC (RBC) [Mass/Vol] 32.8 g/dL 32-36 [facility] Nucleated RBC/100 WBC (Bld) [Ratio] 0 % 0-5 [facility] Platelet mean volume (Bld) [Entitic vol] 9.1 fL 6.2-12.0 [facility] Platelets (Bld) [#/Vol] 197 10*3/uL 150-450 [facility] No Panel InformationOrdered By: Arya Ayala on 03-08-2024 Estimated Creatinine Clearance Calc 50.52 ml/min [facility] Estimated GFR (MDRD) Amer 74 mL/min >60 [facility] Comment on above: GFR Calc Estimated GFR (MDRD) Non-Af Amer 61 mL/min >60 [facility] Comment on above: Non- GFR Calc No Panel InformationOrdered By: Yoel Bass on 03-08-2024 Vitamin D 25-Hydroxy 36.6 ng/mL [facility] Comment on above: Vitamin D 25(OH) Sta tus Range Deficiency <20 ng/mL (50nmol/L) Insufficiency 20 - 30 ng/mL (50 - 75 nmol/L) Sufficiency 30 - 100 ng/mL (75 - 250 nmol/L) Toxicity >100 ng/mL (>250 nmol/L) RBC Auto (Bld) [#/Vol]Ordere d By: Arya Ayala on 03-08-2024 RBC (Bld) [#/Vol] 3.28 10*6/uL 4.2-5.4 [facility] Serum or plasma calcium josué urement (mass/volume)Ordered By: Arya Ayala on 03-08-2024 Calcium [Mass/Vol] 8.5 mg/dL 8.5-10.1 [facility] Serum or plasma creatinine m easurement (mass/volume)Ordered By: Ayra Ayala on 03-08-2024 Creatinine [Mass/Vol] 0.95 mg/dL 0.55-1.02 [facility] Comment on above: The validity of the calculated GFR & GFRAA in patients over 70 years has not been determined. Clinical correlation is essential. Serum or plasma thyroid stim ulating hormone (TSH) measurement (units/volume)Ordered By: Yoel Mcnally on 03-08-2024 TSH Qn 2.94 uIU/mL 0.358-3.74 [facility] Serum or plasma urea nitroge n measurement (mass/volume)Ordered By: Arya Ayala on 03-08-2024 Urea nitrogen [Mass/Vol] 21 mg/dL 7-18 [facility] Thin prep Papanicolaou smear with manual screeningOrdered By: Arya Ayala on 03-08-2024 Thin prep Papanicolaou smear with manual screening 3.5 g/dL 3.2-5.0 [facility] Thin prep Papanicolaou smear with manual screening 25 U/L 15-37 [facility] Thin prep Papanicolaou smear with manual screening 4 5-15 [facility] Whole blood hemoglobin A1c/t otal hemoglobin ratio (mass fraction)Ordered By: Yoel Mcnally on 03-08-2024 HbA1c (Bld) [Mass fraction] 6.5 % 3.8-5.6 [facility] Comment on above: Normal < 5.7 % Predi abetic 5.7 - 6.4 % Diabetic >or= 6.5 % Please note range changes. Absolute lymphocyte countOrd ered By: Zafar Zimmer on 03-07-2024 Lymphocytes Auto (Unsp spec) [#/Vol] 2.27 10*3/uL 0.83-4.51 [facility] Automated lymphocyte count a s percentage of total leukocytesOrdered By: Zafar Zimmer on 03-07-2024 Lymphocytes/100 WBC Auto (Unsp spec) 26.3 % 19-41 [facility] Basophil percentageOrdered B y: Zafar Zimmer on 03-07-2024 Basophils/100 WBC (Bld) 0.6 % 0-1 [facility] Chloride [Moles/Vol] 107 mmol/L 98-107 [facility] Eosinophils/100 WBC (Bld) 5.4 % 0-5 [facility] Glucose [Mass/Vol] 141 mg/dL 74-106 [facility] Comment on above: Fasting Glucose resu lt greater than or equal to 126 mg/dL suggests DIABETES MELLITUS per A.D.A. criteria. Hemoglobin (Bld) [Mass/Vol] 12.2 g/dL 12.0-15.0 [facility] Monocytes/100 WBC (Bld) 7.1 % 0-10 [facility] Neutrophils (Bld) [#/Vol] 5.2 10*3/uL 2.0-7.7 [facility] Neutrophils/100 WBC (Bld) 60.3 % 47-70 [facility] Potassium [Moles/Vol] 4.1 mmol/L 3.5-5.1 [facility] Sodium [Moles/Vol] 138 mmol/L 136-145 [facility] WBC (Bld) [#/Vol] 8.6 10*3/uL 4.4-11.0 [facility] Determination of erythrocyte mean corpuscular volume (MCV)Ordered By: Zafar Zimmer on 03-07-2024 MCV (RBC) [Entitic vol] 104.5 fL 81-99 [facility] Erythrocyte distribution wid th ratioOrdered By: Zafar Zimmer on 03-07-2024 Erythrocyte distribution width (RBC) [Ratio] 13.2 % 11.6-14.6 [facility] Erythrocyte distribution wid th standard deviationOrdered By: Zafar Zimmer on 03-07-2024 Erythrocyte distribution width (RBC) [Entitic vol] 50.9 fL 35.1-43.9 [facility] Hematocrit Auto (Bld) [Volum e fraction]Ordered By: Zafar Zimmer on 03-07-2024 Hematocrit (Bld) [Volume fraction] 37.5 % 37-47 [facility] Immature granulocytes/100 WB C Auto (Bld)Ordered By: Zafar Zimmer on 03-07-2024 Immature granulocytes/100 WBC (Bld) 0.300 % 0.0-0.9 [facility] Comment on above: IG% - Immature Granu locytes (promyelocytes, myelocytes and metamyelocytes) > 1% indicates that a LEFT SHIFT is Present. Laboratory - Chemistry and C hemistry - challengeOrdered By: Zafar Zimmer on 03-07-2024 CO2 [Moles/Vol] 25.0 mmol/L 21.0-32.0 [facility] Urea nitrogen/Creatinine [Mass ratio] 24.8 mg/mg 10-20 [facility] Laboratory - Hematology and Cell countsOrdered By: Zafar Zimmer on 03-07-2024 MCH (RBC) [Entitic mass] 34.0 pg 27.0-32.0 [facility] MCHC (RBC) [Mass/Vol] 32.5 g/dL 32-36 [facility] Nucleated RBC/100 WBC (Bld) [Ratio] 0 % 0-5 [facility] Platelet mean volume (Bld) [Entitic vol] 9.9 fL 6.2-12.0 [facility] Platelets (Bld) [#/Vol] 236 10*3/uL 150-450 [facility] No Panel InformationOrdered By: Zafar Zimmer on 03-07-2024 Estimated GFR (MDRD) Amer 61 mL/min >60 [facility] Comment on above: GFR Calc Estimated GFR (MDRD) Non-Af Amer 50 mL/min >60 [facility] Comment on above: Non- GFR Calc Troponin I High Sensitivity 4 pg/mL 3.0-54.0 [facility] Comment on above: Please Note: [place] t Units and Gender Specific Reference Ranges. For more information see Policy Stat Procedure [place] High Sensitivity Troponin (TNIH) and attachments. No Panel InformationOrdered By: Arya Ayala on 03-07-2024 Folate 23.20 ng/mL 3.1-55.4 [facility] Comment on above: Slight Hemolysis, Re sult may be falsely increased. RBC Auto (Bld) [#/Vol]Ordere d By: Zafar Zimmer on 03-07-2024 RBC (Bld) [#/Vol] 3.59 10*6/uL 4.2-5.4 [facility] Serum or plasma calcium josué urement (mass/volume)Ordered By: Zafar Zimmer on 03-07-2024 Calcium [Mass/Vol] 9.0 mg/dL 8.5-10.1 [facility] Serum or plasma creatinine m easurement (mass/volume)Ordered By: Zafar Zimmer on 03-07-2024 Creatinine [Mass/Vol] 1.13 mg/dL 0.55-1.02 [facility] Comment on above: The validity of the calculated GFR & GFRAA in patients over 70 years has not been determined. Clinical correlation is essential. Serum or plasma urea nitroge n measurement (mass/volume)Ordered By: Zafra Zimmer on 03-07-2024 Urea nitrogen [Mass/Vol] 28 mg/dL 7-18 [facility] Thin prep Papanicolaou smear with manual screeningOrdered By: Zafar Zimmer on 03-07-2024 Thin prep Papanicolaou smear with manual screening 6 5-15 [facility] Basophil percentageOrdered B y: Summer Worrell on 03-02-2024 Basophil percentage < 10.0 IU/mL <15 [facility] Erythrocyte sedimentation ra teOrdered By: Summer Worrell on 03-02-2024 ESR (Bld) [Velocity] 5 mm/h 0-30 [facility] No Panel InformationOrdered By: Summer Worrell on 03-02-2024 C-Reactive Protein Extended Range < 2.90 mg/L 0.0-3.0 [facility] Comment on above: C-Reactive Protein ( CRP) provides useful information for thediagnosis, therapy and monitoring of inflammatory processesand associated diseases. For the evaluation of Relative Riskfor Cardiovascular Disease, a High Sensitivity CRP (HSCRP)should be ordered. Serum cyclic citrullinated p eptide IgG antibody assay (units/volume)Ordered By: Summer Worrell on 03-02-2024 Cyclic citrullinated peptide IgG Qn 1 units 0-19 [facility] Comment on above: Negative <20 Weak po sitive 20 - 39 Moderate positive 40 - 59 Strong positive >59Performed at: [facility] [id number] Director: Vidal Briceno PhD, Phone: [phone] Culture, urineOrdered By: Barber Worrell on 02-03-2024 Bacteria identified Cx Nom (U) Culture exhibits no growth. [facility] Culture, urineOrdered By: Barber Worrell on 01-22-2024 Bacteria identified Cx Nom (U) Klebsiella pneumoniae sp pneum [facility] Bacteria identified Cx Nom (U) Klebsiella pneumoniae sp pneum [facility] Bilirubin Test strip Ql (U)O rdered By: Summer Worrell on 01-20-2024 Bilirubin Ql (U) Negative Negative [facility] Ketones Test strip Ql (U)Ord ered By: Summer Worrell on 01-20-2024 Ketones Ql (U) Negative Negative [facility] Nitrite Test strip Ql (U)Ord ered By: Summer Worrell on 01-20-2024 Nitrite Ql (U) Negative Negative [facility] Protein Test strip Ql (U)Ord ered By: Summer Worrell on 01-20-2024 Protein Ql (U) 15 mg/dl Negative [facility] Urine blood detectionOrdered By: Summer Worrell on 01-20-2024 RBC Ql (U) 10 /ul Negative [facility] Urine clarityOrdered By: Lara Worrell on 01-20-2024 Clarity (U) Cloudy Clear [facility] Urine color determinationOrd ered By: Summer Worrell on 01-20-2024 Color (U) Yellow Yellow [facility] Urine glucose detectionOrder ed By: Summer Worrell on 01-20-2024 Glucose Ql (U) Normal mg/dl Normal [facility] Urine leukocyte esterase det ection by dipstickOrdered By: Summer Worrell on 01-20-2024 Leukocyte esterase Test strip Ql (U) 500 /ul Negative [facility] Urine pHOrdered By: Summer grubbs on 01-20-2024 pH (U) 8.0 [pH] 5.0 - 8.0 [facility] Urine specific gravity measu rementOrdered By: Summer Worrell on 01-20-2024 Specific gravity (U) [Rel density] 1.010 1.002-1.030 [facility] Urine urobilinogen measureme ntOrdered By: Summer Worrell on 01-20-2024 Urobilinogen Ql (U) Normal mg/dl Normal [facility] Basophil percentageOrdered B y: Summer Worrell on 01-19-2024 Chloride [Moles/Vol] 109 mmol/L 98-107 [facility] Glucose [Mass/Vol] 121 mg/dL 74-106 [facility] Comment on above: Fasting Glucose resu lt from 100 to 125 mg/dL suggests IMPAIRED HOMEOSTASIS per A.D.A. criteria. Potassium [Moles/Vol] 4.5 mmol/L 3.5-5.1 [facility] Sodium [Moles/Vol] 141 mmol/L 136-145 [facility] Laboratory - Chemistry and C hemistry - challengeOrdered By: Summer Worrell on 01-19-2024 CO2 [Moles/Vol] 25.0 mmol/L 21.0-32.0 [facility] Urea nitrogen/Creatinine [Mass ratio] 33.0 mg/mg 10-20 [facility] No Panel InformationOrdered By: Summer Worrell on 01-19-2024 Estimated GFR (MDRD) Amer 59 mL/min >60 [facility] Comment on above: GFR Calc Estimated GFR (MDRD) Non-Af Amer 49 mL/min >60 [facility] Comment on above: Non- GFR Calc Serum or plasma calcium josué urement (mass/volume)Ordered By: Summer Worrell on 01-19-2024 Calcium [Mass/Vol] 9.7 mg/dL 8.5-10.1 [facility] Serum or plasma creatinine m easurement (mass/volume)Ordered By: Summer Worrell on 01-19-2024 Creatinine [Mass/Vol] 1.15 mg/dL 0.55-1.02 [facility] Comment on above: The validity of the calculated GFR & GFRAA in patients over 70 years has not been determined. Clinical correlation is essential. Serum or plasma urea nitroge n measurement (mass/volume)Ordered By: Summer Worrell on 01-19-2024 Urea nitrogen [Mass/Vol] 38 mg/dL 7-18 [facility] Thin prep Papanicolaou smear with manual screeningOrdered By: Summer Worrell on 01-19-2024 Thin prep Papanicolaou smear with manual screening 7 5-15 [facility] Laboratory - Chemistry and C hemistry - challengeOrdered By: Summer Worrell on 12-24-2023 Cobalamin (Vitamin B12) [Mass/Vol] 925 pg/mL 211-911 [facility] No Panel InformationOrdered By: Summer Worrell on 12-24-2023 Vitamin D 25-Hydroxy 34.3 ng/mL [facility] Comment on above: Vitamin D 25(OH) Sta tus Range Deficiency <20 ng/mL (50nmol/L) Insufficiency 20 - 30 ng/mL (50 - 75 nmol/L) Sufficiency 30 - 100 ng/mL (75 - 250 nmol/L) Toxicity >100 ng/mL (>250 nmol/L) Gram stain for investigation of transfusion reactionOrdered By: Dimple Funes on 09-03-2023 Microscopic observation Gram stain Nom (Unsp spec) [facility] Microscopic observation Gram stain Nom (Unsp spec) [facility] Thin prep Papanicolaou smear with manual screeningOrdered By: Dimple Funes on 09-03-2023 Genital Culture GNR lactose animal care assistant [facility] Genital Culture GNR lactose animal care assistant [facility] Basophil percentageOrdered B y: Summer Worrell on 08-28-2023 Cholesterol [Mass/Vol] 185 mg/dL <200 [facility] Comment on above: <200 mg/dL Desirable 200-240 mg/dL Borderline >240 mg/dL High Risk Triglyceride [Mass/Vol] 71 mg/dL <199 [facility] Comment on above: The drugs N-Acetylcy steine and Metamizole may falsely depress this assay.Serum Triglycerides Reference Interval Normal <150 mg/dL Borderline high 150 - 199 mg/dL High 200 - 499 mg/dL Very High > or = 500 mg/dL No Panel InformationOrdered By: Summer Worrell on 08-28-2023 Thyroid Stimulating Hormone (TSH) 3.34 uIU/mL 0.358-3.74 [facility] Vitamin D 25-Hydroxy 49.6 ng/mL [facility] Comment on above: Vitamin D 25(OH) Sta tus Range Deficiency <20 ng/mL (50nmol/L) Insufficiency 20 - 30 ng/mL (50 - 75 nmol/L) Sufficiency 30 - 100 ng/mL (75 - 250 nmol/L) Toxicity >100 ng/mL (>250 nmol/L) Serum or plasma cholesterol in HDL measurement (mass/volume)Ordered By: Summer Worrell on 08-28-2023 Cholesterol in HDL [Mass/Vol] 75 mg/dL >40 [facility] Comment on above: The drugs N-Acetylcy steine and Metamizole may falsely depress this assay. Reference Range HDL <40 mg/dL Low HDL Cholesterol HDL >or= 60 mg/dL High HDL Cholesterol Serum or plasma cholesterol in VLDL measurement (mass/volume)Ordered By: Summer Worrell on 08-28-2023 Cholesterol in VLDL [Mass/Vol] 14 mg/dL 5-40 [facility] Serum or plasma low density lipoprotein (LDL) cholesterol measurement (mass/volume)Ordered By: Summer Worrell on 08-28-2023 Cholesterol in LDL [Mass/Vol] 96 mg/dL 0-130 [facility] Whole blood hemoglobin A1c/t otal hemoglobin ratio (mass fraction)Ordered By: Summer Worrell on 08-28-2023 HbA1c (Bld) [Mass fraction] 6.7 % 3.8-5.6 [facility] Comment on above: Normal < 5.7 % Predi abetic 5.7 - 6.4 % Diabetic >or= 6.5 % Please note range changes. Gram stain for investigation of transfusion reactionOrdered By: Angelica Avendano on 07-25-2023 Microscopic observation Gram stain Nom (Unsp spec) [facility] Thin prep Papanicolaou smear with manual screeningOrdered By: Angelica Avendano on 07-25-2023 Genital Culture GNR lactose animal care assistant [facility] Gram stain for investigation of transfusion reactionOrdered By: Angelica Avendano on 07-24-2023 Microscopic observation Gram stain Nom (Unsp spec) [facility] Thin prep Papanicolaou smear with manual screeningOrdered By: Angelica Avendano on 07-24-2023 Genital Culture GNR lactose animal care assistant [facility] EMG(NEURO/NI)on 07-16-2023 [facility] Absolute lymphocyte countOrd ered By: Obdulio Fofana on 04-17-2023 Lymphocytes Auto (Unsp spec) [#/Vol] 1.21 10*3/uL 0.83-4.51 [facility] Basophil percentageOrdered B y: Obdulio Fofana on 04-17-2023 Basophils/100 WBC (Bld) 0.4 % 0-1 [facility] Chloride [Moles/Vol] 112 mmol/L 98-107 [facility] Eosinophils/100 WBC (Bld) 6.3 % 0-5 [facility] Glucose [Mass/Vol] 155 mg/dL 74-106 [facility] Comment on above: Fasting Glucose resu lt greater than or equal to 126 mg/dL suggests DIABETES MELLITUS per A.D.A. criteria. Neutrophils (Bld) [#/Vol] 5.8 10*3/uL 2.0-7.7 [facility] Neutrophils/100 WBC (Bld) 72.0 % 47-70 [facility] Potassium [Moles/Vol] 4.3 mmol/L 3.5-5.1 [facility] Sodium [Moles/Vol] 144 mmol/L 136-145 [facility] WBC (Bld) [#/Vol] 8.1 10*3/uL 4.4-11.0 [facility] Basophil percentage 25-50 SEEN /hpf 0-5 [facility] Bilirubin Test strip Ql (U)O rdered By: Obdulio Fofana on 04-17-2023 Bilirubin Ql (U) Negative Negative [facility] Blood erythrocytes count (nu mber/volume)Ordered By: Obdulio Fofana on 04-17-2023 RBC (Bld) [#/Vol] 3.82 10*6/uL 4.2-5.4 [facility] Blood hemoglobin measurement (mass/volume)Ordered By: Obdulio Fofana on 04-17-2023 Hemoglobin (Bld) [Mass/Vol] 13.2 g/dL 12.0-15.0 [facility] Blood lymphocytes/100 leukoc ytesOrdered By: Obdulio Fofana on 04-17-2023 Lymphocytes/100 WBC (Bld) 14.9 % 19-41 [facility] Blood monocytes/100 leukocyt esOrdered By: Obdulio Fofana on 04-17-2023 Monocytes/100 WBC (Bld) 6.2 % 0-10 [facility] Blood platelet mean volumeOr dered By: Obdulio Fofana on 04-17-2023 Platelet mean volume (Bld) [Entitic vol] 9.3 fL 6.2-12.0 [facility] Culture, urineOrdered By: Sanjuana Fofana on 04-17-2023 Bacteria identified Cx Nom (U) Klebsiella pneumoniae sp pneum [facility] Determination of erythrocyte mean corpuscular volume (MCV)Ordered By: Obdulio Fofana on 04-17-2023 MCV (RBC) [Entitic vol] 105.2 fL 81-99 [facility] Hematocrit Auto (Bld) [Volum e fraction]Ordered By: Obdulio Fofana on 04-17-2023 Hematocrit (Bld) [Volume fraction] 40.2 % 37-47 [facility] Ketones Test strip Ql (U)Ord ered By: Obdulio Fofana on 04-17-2023 Ketones Ql (U) Negative Negative [facility] Laboratory - Chemistry and C hemistry - challengeOrdered By: Obdulio Fofana on 04-17-2023 CO2 [Moles/Vol] 27.0 mmol/L 21.0-32.0 [facility] Urea nitrogen/Creatinine [Mass ratio] 22.1 mg/mg 10-20 [facility] Laboratory - Hematology and Cell countsOrdered By: Obdulio Fofana on 04-17-2023 Erythrocyte distribution width (RBC) [Entitic vol] 56.6 fL 35.1-43.9 [facility] Erythrocyte distribution width (RBC) [Ratio] 14.6 % 11.6-14.6 [facility] Immature granulocytes/100 WBC (Bld) 0.200 % 0.0-0.9 [facility] Comment on above: IG% - Immature Granu locytes (promyelocytes, myelocytes and metamyelocytes) > 1% indicates that a LEFT SHIFT is Present. MCH (RBC) [Entitic mass] 34.6 pg 27.0-32.0 [facility] Nucleated RBC/100 WBC (Bld) [Ratio] 0 % 0-5 [facility] MCHC Auto (RBC) [Mass/Vol]Or dered By: Obdulio Fofana on 04-17-2023 MCHC (RBC) [Mass/Vol] 32.8 g/dL 32-36 [facility] Mucus LM Ql (Urine sed)Order ed By: Obdulio Fofana on 04-17-2023 Mucus Ql (Urine sed) 0 SEEN /hpf [facility] Nitrite Test strip Ql (U)Ord ered By: Obdulio Fofana on 04-17-2023 Nitrite Ql (U) Positive Negative [facility] No Panel InformationOrdered By: Obdulio Fofana on 04-17-2023 Estimated Creatinine Clearance Calc 39.94 ml/min [facility] Estimated GFR (MDRD) Amer 56 mL/min >60 [facility] Comment on above: GFR Calc Estimated GFR (MDRD) Non-Af Amer 46 mL/min >60 [facility] Comment on above: Non- GFR Calc Platelets bldOrdered By: Pinky Fofana on 04-17-2023 Platelets (Bld) [#/Vol] 229 10*3/uL 150-450 [facility] Protein Test strip Ql (U)Ord ered By: Obdulio Fofana on 04-17-2023 Protein Ql (U) 30 mg/dl Negative [facility] Serum or plasma calcium josué urement (mass/volume)Ordered By: Obdulio Fofana on 04-17-2023 Calcium [Mass/Vol] 9.1 mg/dL 8.5-10.1 [facility] Serum or plasma creatinine m easurement (mass/volume)Ordered By: Obdulio Fofana on 04-17-2023 Creatinine [Mass/Vol] 1.22 mg/dL 0.55-1.02 [facility] Comment on above: The validity of the calculated GFR & GFRAA in patients over 70 years has not been determined. Clinical correlation is essential. Serum or plasma urea nitroge n measurement (mass/volume)Ordered By: Obdulio Fofana on 04-17-2023 Urea nitrogen [Mass/Vol] 27 mg/dL 7-18 [facility] Squamous epithelial cells de tection in urine sediment by light microscopyOrdered By: Obdulio Fofana on 04-17-2023 Epithelial cells.squamous LM Ql (Urine sed) 0-5 SEEN /hpf 5-10 [facility] Thin prep Papanicolaou smear with manual screeningOrdered By: Obdulio Fofana on 04-17-2023 Thin prep Papanicolaou smear with manual screening 5 5-15 [facility] Urine blood detectionOrdered By: Obdulio Fofana on 04-17-2023 RBC Ql (U) 25 /ul Negative [facility] RBC Ql (U) 0-5 SEEN /hpf 0-5 [facility] Urine clarityOrdered By: Pinky Fofana on 04-17-2023 Clarity (U) Cloudy Clear [facility] Urine color determinationOrd ered By: Obdulio Fofana on 04-17-2023 Color (U) Yellow Yellow [facility] Urine glucose detectionOrder ed By: Obdulio Fofana on 04-17-2023 Glucose Ql (U) 100 mg/dl Normal [facility] Urine leukocyte esterase det ection by dipstickOrdered By: Obdulio Fofana on 04-17-2023 Leukocyte esterase Test strip Ql (U) 500 /ul Negative [facility] Urine pHOrdered By: Obdulio Fofana on 04-17-2023 pH (U) 6.0 [pH] 5.0 - 8.0 [facility] Urine sediment bacteria coun t by microscopy (number/high power field)Ordered By: Obdulio Fofana on 04-17-2023 Bacteria LM.HPF (Urine sed) [#/Area] 4 /[HPF] None Seen [facility] Urine specific gravity measu rementOrdered By: Obdulio Fofana on 04-17-2023 Specific gravity (U) [Rel density] 1.015 1.002-1.030 [facility] Urobilinogen Auto test strip Ql (U)Ordered By: Obdulio Fofana on 04-17-2023 Urobilinogen Ql (U) Normal mg/dl Normal [facility] Laboratory - Chemistry and C hemistry - challengeon 11-01-2022 Cobalamin (Vitamin B12) [Mass/Vol] 922 pg/mL 211-911 [facility] Work Phone: No Panel Informationon 11-01 Thyroid Stimulating Hormone (TSH) 0.70 uIU/mL 0.358-3.74 [facility] Work Phone: Whole blood hemoglobin A1c/t otal hemoglobin ratio (mass fraction)on 11-01-2022 HbA1c (Bld) [Mass fraction] 6.9 % 3.8-5.6 [facility] Work Phone: Comment on above: Normal < 5.7 % Predi abetic 5.7 - 6.4 % Diabetic >or= 6.5 % Please note range changes. Glucose Glucometer (BldC) [M ass/Vol]on 07-04-2022 Glucose [Mass/Vol] 150 mg/dL 74-106 [facility] Work Phone: Comment on above: MANAGEMENT OF PATIEN T CARE PER NURSING PROTOCOL Basophil percentageon 2021 Bilirubin [Mass/Vol] 0.40 mg/dL 0.20-1.00 [facility] Work Phone: Comment on above: For patients on eltr ombopag therapy, use of Dimension [place] TBIL is not recommended. Chloride [Moles/Vol] 109 mmol/L 98-107 [facility] Work Phone: Glucose [Mass/Vol] 118 mg/dL 74-106 [facility] Work Phone: Comment on above: Fasting Glucose resu lt from 100 to 125 mg/dL suggests IMPAIRED HOMEOSTASIS per A.D.A. criteria. Potassium [Moles/Vol] 4.4 mmol/L 3.5-5.1 [facility]: Protein [Mass/Vol] 7.4 g/dL 6.4-8.2 [facility] Work Phone: Sodium [Moles/Vol] 140 mmol/L 136-145 [facility] Work Phone: WBC (Bld) [#/Vol] 7.0 10*3/uL 4.4-11.0 [facility] Work Phone: Blood erythrocytes count (nu mber/volume)on 07-01-2022 RBC (Bld) [#/Vol] 3.41 10*6/uL 4.2-5.4 [facility]: Blood hemoglobin measurement (mass/volume)on 07-01-2022 Hemoglobin (Bld) [Mass/Vol] 11.9 g/dL 12.0-15.0 [facility] Work Phone: Blood platelet mean volumeon 07-01-2022 Platelet mean volume (Bld) [Entitic vol] 9.4 fL 6.2-12.0 [facility] Work Phone: Determination of erythrocyte mean corpuscular volume (MCV)on 07-01-2022 MCV (RBC) [Entitic vol] 107.0 fL 81-99 [facility] Work Phone: Direct bilirubinon 2 Bilirubin.direct [Mass/Vol] 0.11 mg/dL 0.00-0.30 [facility] Work Phone: Hematocrit Auto (Bld) [Volum e fraction]on 07-01-2022 Hematocrit (Bld) [Volume fraction] 36.5 % 37-47 [facility] Work Phone: INR in Blood by Coagulation assayon 07-01-2022 INR Coag (Bld) [Relative time] 1.0 {INR} [facility] Work Phone: Laboratory - Chemistry and C hemistry - challengeon 07-01-2022 ALP [Catalytic activity/Vol] 95 U/L 45-117 [facility] Work Phone: [phone] ALT [Catalytic activity/Vol] 22 U/L 13-56 [facility] Work Phone: [phone] CO2 [Moles/Vol] 28.0 mmol/L 21.0-32.0 [facility] Work Phone: Globulin (S) [Mass/Vol] 3.9 g/dL 2.2-4.2 [facility] Work Phone: Urea nitrogen/Creatinine [Mass ratio] 25.0 mg/mg 10-20 [facility] Work Phone: Laboratory - Coagulationon 0 07-01-2022 aPTT Coag (Bld) [Time] 33.2 s 24.1-36.2 [facility] Work Phone: PT Coag (PPP) [Time] 12.5 s 11.7-14.9 [facility] Work Phone: [phone] Laboratory - Hematology and Cell countson 07-01-2022 Erythrocyte distribution width (RBC) [Entitic vol] 51.1 fL 35.1-43.9 [facility] Work Phone: [phone] Erythrocyte distribution width (RBC) [Ratio] 13.1 % 11.6-14.6 [facility] Work Phone: [phone] MCH (RBC) [Entitic mass] 34.9 pg 27.0-32.0 [facility] Work Phone: [phone] MCHC Auto (RBC) [Mass/Vol]on 07-01-2022 MCHC (RBC) [Mass/Vol] 32.6 g/dL 32-36 [facility] Work Phone: No Panel Informationon 07-01 Estimated GFR (MDRD) Amer 57 mL/min >60 [facility] Work Phone: Comment on above: GFR Calc Estimated GFR (MDRD) Non-Af Amer 47 mL/min >60 [facility] Work Phone: Comment on above: Non- GFR Calc Thyroid Stimulating Hormone (TSH) 14.10 uIU/mL 0.358-3.74 [facility] Work Phone: Platelets bldon 07-01-2022 Platelets (Bld) [#/Vol] 221 10*3/uL 150-450 [facility] Work Phone: Serum or plasma albumin josué urement (mass/volume)on 07-01-2022 Albumin [Mass/Vol] 3.5 g/dL 3.2-5.0 [facility] Work Phone: Serum or plasma calcium josué urement (mass/volume)on 07-01-2022 Calcium [Mass/Vol] 9.1 mg/dL 8.5-10.1 [facility] Work Phone: Serum or plasma creatinine m easurement (mass/volume)on 07-01-2022 Creatinine [Mass/Vol] 1.20 mg/dL 0.55-1.02 [facility] Work Phone: Comment on above: The validity of the calculated GFR & GFRAA in patients over 70 years has not been determined. Clinical correlation is essential. Serum or plasma urea nitroge n measurement (mass/volume)on 07-01-2022 Urea nitrogen [Mass/Vol] 30 mg/dL 7-18 [facility] Work Phone: Thin prep Papanicolaou smear with manual screeningon 07-01-2022 Thin prep Papanicolaou smear with manual screening 21 U/L 15-37 [facility] Work Phone: Thin prep Papanicolaou smear with manual screening 3 - [facility] Work Phone: Whole blood hemoglobin A1c/t otal hemoglobin ratio (mass fraction)on 07-01-2022 HbA1c (Bld) [Mass fraction] 6.6 % 3.8-5.6 [facility] Work Phone: Comment on above: Normal < 5.7 % Predi abetic 5.7 - 6.4 % Diabetic >or= 6.5 % Please note range changes. Office Visit: initial thyroi d consulton 07-24-2017 Adult depression screening assessment Adult depression screening assessment [facility] Work Phone: Documentation of current medications (procedure) Done Invalid Interpretation Code [facility] Work Phone: PHQ-9 quick depression assessment panel [Reported.PHQ] Adult depression screening assessment [facility] Work Phone: Protein mass conc Done [facility] Work Phone: Tobacco smoking status NHIS Never [facility] Work Phone: Tobacco smoking status NHIS Current every day smoker [facility] Work Phone: Tobacco use [facility] Current every day smoker Invalid Interpretation Code [facility] Work Phone: Clinical Lists Update: 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 07-23-2017 Tobacco use CP Current every day smoker Invalid Interpretation Code [facility] Work Phone: Culture, urine Bacteria identified Cx Nom (U) Klebsiella pneumoniae sp pneum [facility] Work Phone: Vital Signs Date Time Vital Sign Value Performing Clinician Facility 08-08-2025 09:01-0400 Body mass index (BMI) [Ratio] 22.86 kg/m2 Pastora Murphy APRN.CNM Work Phone: [facility] 08-08-2025 09:01-0400 Body weight 64.14 kg Pastora Murphy APRN.CNM Work Phone: [facility] 08-08-2025 09:01-0400 Diastolic blood pressure 76 mm[Hg] Pastora Murphy APRN.CNM Work Phone: [facility] 08-08-2025 09:01-0400 Systolic blood pressure 120 mm[Hg] Pastora Murphy APRN.CNM Work Phone: [facility] 04-11-2025 15:01-0400 Body height 167.5 cm Darren Mercado MD Work Phone: [facility] 04-11-2025 15:01-0400 Body mass index (BMI) [Ratio] 22.29 kg/m2 Darren Mercado MD Work Phone: [facility] 04-11-2025 15:01-0400 Body temperature 99 [degF] Darren Mercado MD Work Phone: [facility] 04-11-2025 15:01-0400 Body weight 62.55 kg Darren Mercado MD Work Phone: [facility] 04-11-2025 15:01-0400 Diastolic blood pressure 91 mm[Hg] Darren Mercado MD Work Phone: [facility] 04-11-2025 15:01-0400 Heart rate 85 /min Darren Mercado MD Work Phone: [facility] 04-11-2025 15:01-0400 Systolic blood pressure 159 mm[Hg] Darren Mercado MD Work Phone: [facility] 02-08-2025 08:05-0400 Body mass index (BMI) [Ratio] 21.44 kg/m2 Denisha Steiner PA-C Work Phone: [facility] 02-08-2025 08:05-0400 Body weight 62.1 kg Denisha Steiner PA-C Work Phone: [facility] 02-08-2025 08:05-0400 Diastolic blood pressure 81 mm[Hg] Denisha HOLLY-Donavon Work Phone: [facility] 02-08-2025 08:05-0400 Heart rate 109 /min Denisha Emersoner PA-C Work Phone: [facility] 02-08-2025 08:05-0400 Respiratory rate 18 /min Denisha Queener PA-C Work Phone: [facility] 02-08-2025 08:05-0400 SaO2% (BldA) [Mass fraction] 95 % Denisha Queener PA-C Work Phone: [facility] 02-08-2025 08:05-0400 Systolic blood pressure 135 mm[Hg] Denisha Queener PA-C Work Phone: [facility] 01-04-2025 12:40-0500 Body mass index (BMI) [Ratio] 21.39 kg/m2 Denisha Queener PA-C Work Phone: [facility] 01-04-2025 12:40-0500 Body weight 61.96 kg Denisha Queener PA-C Work Phone: [facility] 01-04-2025 12:40-0500 Diastolic blood pressure 87 mm[Hg] Denisha Queener PA-C Work Phone: [facility] 01-04-2025 12:40-0500 Heart rate 85 /min Denisha Queener PA-C Work Phone: [facility] 01-04-2025 12:40-0500 Respiratory rate 18 /min Denisha Queener PA-C Work Phone: [facility] 01-04-2025 12:40-0500 SaO2% (BldA) [Mass fraction] 100 % Denisha Queener PA-C Work Phone: [facility] 01-04-2025 12:40-0500 Systolic blood pressure 144 mm[Hg] Denisha Queener PA-C Work Phone: [facility] 03-29-2024 13:00-0400 Body temperature 97.9 [degF] Dr. Summer Worrell Work Phone: [facility] 03-29-2024 13:00-0400 Diastolic blood pressure 78 mm[Hg] Dr. Summer Worrell Work Phone: [facility] 03-29-2024 13:00-0400 Heart rate 87 /min Dr. Summer Worrell Work Phone: [facility] 03-29-2024 13:00-0400 Respiratory rate 18 /min Dr. Summer Worrell Work Phone: [facility] 03-29-2024 13:00-0400 SaO2% (BldA) [Mass fraction] 97 % Dr. Summer Worrell Work Phone: [facility] 03-29-2024 13:00-0400 Systolic blood pressure 141 mm[Hg] Dr. Summer Worrell Work Phone: [facility] 03-24-2024 14:17-0400 Body height 170.[address] Summer Worrell Work Phone: [facility] 03-24-2024 14:17-0400 Body weight 61.[address] Summer Worrell Work Phone: [facility] 03-23-2024 09:37-0400 Body mass index (BMI) [Ratio] 21.1 kg/m2 Dr. Summer Worrell Work Phone: [facility] 03-19-2024 13:18-0400 Body temperature 97.7 [degF] Dr. Summer Worrell Work Phone: [facility] 03-19-2024 13:18-0400 Diastolic blood pressure 68 mm[Hg] Dr. Summer Worrell Work Phone: [facility] 03-19-2024 13:18-0400 Heart rate 91 /min Dr. Summer Worrell Work Phone: [facility] 03-19-2024 13:18-0400 Respiratory rate 18 /min Dr. Summer Worrell Work Phone: [facility] 03-19-2024 13:18-0400 SaO2% (BldA) [Mass fraction] 94 % Dr. Summer Worrell Work Phone: [facility] 03-19-2024 13:18-0400 Systolic blood pressure 115 mm[Hg] Dr. Summer Worrell Work Phone: [facility] 03-19-2024 11:32-0400 Body height 170.[address] Summer Worrell Work Phone: [facility] 03-19-2024 11:32-0400 Body mass index (BMI) [Ratio] 21.2 kg/m2 Dr. Summer Worrell Work Phone: [facility] 03-19-2024 11:32-0400 Body weight 61.[address] Summer Worrell Work Phone: [facility] 03-18-2024 20:48-0400 Diastolic blood pressure 61 mm[Hg] Dr. Summer Worrell Work Phone: [facility] 03-18-2024 20:48-0400 Heart rate 99 /min Dr. Summer Worrell Work Phone: [facility] 03-18-2024 20:48-0400 Systolic blood pressure 111 mm[Hg] Dr. Summer Worrell Work Phone: [facility] 03-18-2024 15:11-0400 Body temperature 98.2 [degF] Dr. Summer Worrell Work Phone: [facility] 03-18-2024 15:11-0400 Respiratory rate 16 /min Dr. Summer Worrell Work Phone: [facility] 03-18-2024 15:11-0400 SaO2% (BldA) [Mass fraction] 93 % Dr. Summer Worrell Work Phone: [facility] 03-17-2024 11:36-0400 Body weight 63.[address] Summer Worrell Work Phone: [facility] 03-16-2024 10:13-0400 Body mass index (BMI) [Ratio] 22 kg/m2 Dr. Summer Worrell Work Phone: [facility] 03-13-2024 15:59-0400 Body temperature 98.5 [degF] Dr. Summer Worrell Work Phone: [facility] 03-13-2024 15:59-0400 Diastolic blood pressure 75 mm[Hg] Dr. Summer Worrell Work Phone: [facility] 03-13-2024 15:59-0400 Heart rate 101 /min Dr. Summer Worrell Work Phone: [facility] 03-13-2024 15:59-0400 Respiratory rate 16 /min Dr. Summer Worrell Work Phone: [facility] 03-13-2024 15:59-0400 SaO2% (BldA) [Mass fraction] 94 % Dr. Summer Worrell Work Phone: [facility] 03-13-2024 15:59-0400 Systolic blood pressure 138 mm[Hg] Dr. Summer Worrell Work Phone: [facility] 03-13-2024 10:32-0400 Diastolic blood pressure 65 mm[Hg] Dr. Summer Worrell Work Phone: [facility] 03-13-2024 10:32-0400 Heart rate 98 /min Dr. Summer Worrell Work Phone: [facility] 03-13-2024 10:32-0400 Respiratory rate 18 /min Dr. Summer Worrell Work Phone: [facility] 03-13-2024 10:32-0400 SaO2% (BldA) [Mass fraction] 99 % Dr. Summer Worrell Work Phone: [facility] 03-13-2024 10:32-0400 Systolic blood pressure 137 mm[Hg] Dr. Summer Worrell Work Phone: [facility] 03-13-2024 08:44-0400 Body temperature 98.4 [degF] Dr. Summer Worrell Work Phone: [facility] 03-12-2024 13:57-0400 Body height 170.[address] Summer Worrell Work Phone: [facility] 03-12-2024 13:57-0400 Body weight 64.[address] Summer Worrell Work Phone: [facility] 03-11-2024 13:51-0400 Body mass index (BMI) [Ratio] 22.4 kg/m2 Dr. Summer Worrell Work Phone: [facility] 03-11-2024 09:30-0400 Body temperature 98.2 [degF] Dr. Summer Worrell Work Phone: [facility] 03-11-2024 09:30-0400 Diastolic blood pressure 60 mm[Hg] Dr. Summer Worrell Work Phone: [facility] 03-11-2024 09:30-0400 Heart rate 102 /min Dr. Summer Worrell Work Phone: [facility] 03-11-2024 09:30-0400 Respiratory rate 18 /min Dr. Summer Worrell Work Phone: [facility] 03-11-2024 09:30-0400 SaO2% (BldA) [Mass fraction] 95 % Dr. Summer Worrell Work Phone: [facility] 03-11-2024 09:30-0400 Systolic blood pressure 122 mm[Hg] Dr. Summer Worrell Work Phone: [facility] 03-11-2024 00:28-0400 Body mass index (BMI) [Ratio] 22.1 kg/m2 Dr. Summer Worrell Work Phone: [facility] 03-11-2024 00:28-0400 Body weight [address] Summer Worrell Work Phone: [facility] 03-09-2024 05:30-0400 Inhaled oxygen flow rate 2 L/min Dr. Summer Worrell Work Phone: [facility] 03-08-2024 11:31-0400 Body height 170.[address] Summer Worrell Work Phone: [facility] 03-08-2024 08:00-0400 Body temperature 97.7 [degF] Dr. Summer Worrell Work Phone: [facility] 03-08-2024 08:00-0400 Diastolic blood pressure 76 mm[Hg] Dr. Summer Worrell Work Phone: [facility] 03-08-2024 08:00-0400 Heart rate 80 /min Dr. Summer Worrell Work Phone: [facility] 03-08-2024 08:00-0400 Respiratory rate 18 /min Dr. Summer Worrell Work Phone: [facility] 03-08-2024 08:00-0400 SaO2% (BldA) [Mass fraction] 96 % Dr. Summer Worrell Work Phone: [facility] 03-08-2024 08:00-0400 Systolic blood pressure 142 mm[Hg] Dr. Summer Worrell Work Phone: [facility] 03-07-2024 23:14-0400 Body mass index (BMI) [Ratio] 21.8 kg/m2 Dr. Summer Worrell Work Phone: [facility] 03-07-2024 23:14-0400 Body weight 63.[address] Summer Worrell Work Phone: [facility] 03-07-2024 22:48-0400 Body height 170.[address] Summer Worrell Work Phone: [facility] 03-07-2024 19:58-0400 Body temperature 98.3 [degF] Dr. Summer Worrell Work Phone: [facility] 03-07-2024 19:58-0400 Diastolic blood pressure 95 mm[Hg] Dr. Summer Worrell Work Phone: [facility] 03-07-2024 19:58-0400 Heart rate 74 /min Dr. Summer Worrell Work Phone: [facility] 03-07-2024 19:58-0400 Respiratory rate 18 /min Dr. Summer Worrell Work Phone: [facility] 03-07-2024 19:58-0400 SaO2% (BldA) [Mass fraction] 91 % Dr. Summer Worrell Work Phone: [facility] 03-07-2024 19:58-0400 Systolic blood pressure 150 mm[Hg] Dr. Summer Worrell Work Phone: [facility] 03-07-2024 18:27-0400 Body height 170.[address] Summer Worrell Work Phone: [facility] 01-27-2024 20:01-0500 Body height 170.[address] Summer Worrell Work Phone: [facility] 01-27-2024 20:01-0500 Body mass index (BMI) [Ratio] 21.2 kg/m2 Dr. Summer Worrell Work Phone: [facility] 01-27-2024 20:01-0500 Body temperature 96 [degF] Dr. Summer Worrell Work Phone: [facility] 01-27-2024 20:01-0500 Body weight 61.[address] Summer Worrell Work Phone: [facility] 01-27-2024 20:01-0500 Diastolic blood pressure 88 mm[Hg] Dr. Summer Worrell Work Phone: [facility] 01-27-2024 20:01-0500 Heart rate 89 /min Dr. Summer Worrell Work Phone: [facility] 01-27-2024 20:01-0500 Respiratory rate 18 /min Dr. Summer Worrell Work Phone: [facility] 01-27-2024 20:01-0500 SaO2% (BldA) [Mass fraction] 98 % Dr. Summer Worrell Work Phone: [facility] 01-27-2024 20:01-0500 Systolic blood pressure 154 mm[Hg] Dr. Summer Worrell Work Phone: [facility] 10-20-2023 10:29-0500 Body height 170.[address] Summer Worrell Work Phone: [facility] 10-20-2023 10:29-0500 Body mass index (BMI) [Ratio] 21.7 kg/m2 Dr. Summer Worrell Work Phone: [facility] 10-20-2023 10:29-0500 Body weight 62.[address] Summer Worrell Work Phone: [facility] 09-03-2023 14:19-0400 Body height 170.[address] Summer Worrell Work Phone: [facility] 09-03-2023 14:14-0400 Body mass index (BMI) [Ratio] 20.3 kg/m2 Dr. Summer Worrell Work Phone: [facility] 09-03-2023 14:14-0400 Body weight 59.[address] Summer Worrell Work Phone: [facility] 09-03-2023 14:14-0400 Diastolic blood pressure 82 mm[Hg] Dr. Summer Worrell Work Phone: [facility] 09-03-2023 14:14-0400 Systolic blood pressure 132 mm[Hg] Dr. Summer Worrell Work Phone: [facility] 07-24-2023 15:01-0400 Body height 170.[address] Summer Worrell Work Phone: [facility] 07-24-2023 14:58-0400 Body mass index (BMI) [Ratio] 21.9 kg/m2 Dr. Summer Worrell Work Phone: [facility] 07-24-2023 14:58-0400 Body weight 63.[address] Summer Worrell Work Phone: [facility] 07-24-2023 14:58-0400 Diastolic blood pressure 69 mm[Hg] Dr. Summer Worrell Work Phone: [facility] 07-24-2023 14:58-0400 Systolic blood pressure 169 mm[Hg] Dr. Summer Worrell Work Phone: [facility] 07-15-2023 12:37-0400 Diastolic blood pressure 76 mm[Hg] Analisa Holden MD Work Phone: [facility] 07-15-2023 12:37-0400 Heart rate 88 /min Analisa Holden MD Work Phone: [facility] 07-15-2023 12:37-0400 Systolic blood pressure 147 mm[Hg] Analisa Holden MD Work Phone: [facility] 04-17-2023 15:44-0400 Diastolic blood pressure 74 mm[Hg] Dr. Summer Worrell Work Phone: [facility] 04-17-2023 15:44-0400 Heart rate 81 /min Dr. Summer Worrell Work Phone: [facility] 04-17-2023 15:44-0400 Respiratory rate 18 /min Dr. Summer Worrell Work Phone: [facility] 04-17-2023 15:44-0400 SaO2% (BldA) [Mass fraction] 99 % Dr. Summer Worrell Work Phone: [facility] 04-17-2023 15:44-0400 Systolic blood pressure 148 mm[Hg] Dr. Summer Worrell Work Phone: [facility] 04-17-2023 13:09-0400 Body height 170.[address] Summer Worrell Work Phone: [facility] 04-17-2023 13:09-0400 Body mass index (BMI) [Ratio] 21.9 kg/m2 Dr. Summer Worrell Work Phone: [facility] 04-17-2023 13:09-0400 Body temperature 97.6 [degF] Dr. Summer Worrell Work Phone: [facility] 04-17-2023 13:09-0400 Body weight 63.[address] Summer Worrell Work Phone: [facility] 03-27-2023 08:21-0400 Body weight 62.6 kg Lexi Francia [employer].OFFBEARER Work Phone: [facility] 03-27-2023 08:21-0400 Diastolic blood pressure 74 mm[Hg] Lexi Francia [employer]OR AND [employer].OFFBEARER Work Phone: [facility] 03-27-2023 08:21-0400 Systolic blood pressure 130 mm[Hg] Lexi Francia [employer].OFFBEARER Work Phone: [facility] 02-13-2023 15:04-0400 Body mass index (BMI) [Ratio] 22.3 kg/m2 Dr. Summer Worrell Work Phone: [facility] 02-13-2023 15:04-0400 Body weight 62.[address] Summer Worrell Work Phone: [facility] 02-13-2023 15:04-0400 Diastolic blood pressure 78 mm[Hg] Dr. Summer Worrell Work Phone: [facility] 02-13-2023 15:04-0400 Systolic blood pressure 130 mm[Hg] Dr. Summer Worrell Work Phone: [facility] 07-04-2022 10:34-0400 Body temperature 97.6 [degF] [facility] Work Phone: 07-04-2022 10:34-0400 Diastolic blood pressure 90 mm[Hg] [facility] Work Phone: 07-04-2022 10:34-0400 Heart rate 67 /min [facility] Work Phone: 07-04-2022 10:34-0400 Respiratory rate 16 /min [facility] Work Phone: 07-04-2022 10:34-0400 SaO2% (BldA) [Mass fraction] 98 % [facility] Work Phone: 07-04-2022 10:34-0400 Systolic blood pressure 137 mm[Hg] [facility] Work Phone: 07-04-2022 06:39-0400 Body height 167.64 cm [facility] Work Phone: 07-04-2022 06:39-0400 Body mass index (BMI) [Ratio] 21.9 kg/m2 [facility] Work Phone: 07-04-2022 06:39-0400 Body weight 61.68 kg [facility] Work Phone: 07-24-2017 07:47-0400 BMI (Body Mass Index) 20.92 kg/m2 Tessa Rice LPN [facility] Work Phone: 07-24-2017 07:47-0400 Body Temperature 97.9 [degF] Tessa Rice [facility] Work Phone: 07-24-2017 07:47-0400 BP Diastolic 88 mm[Hg] Tessa Rice LPN [facility] Work Phone: 07-24-2017 07:47-0400 BP Systolic 142 mm[Hg] Tessa Rice LPN [facility] Work Phone: 07-24-2017 07:47-0400 Height 170.18 cm Tessa Rice NURSE EXTERN [facility] Work Phone: 07-24-2017 07:47-0400 Pulse (Heart Rate) 78 /min [facility] Rice [facility] Work Phone: 07-24-2017 07:47-0400 Respiratory Rate 18 /min [facility] Work Phone: 07-24-2017 07:47-0400 Weight 60.6 kg [facility] Work Phone: Encounters Encounter Date Encounter Type Care Provider Facility Start: 09-23-2025 End: 09-23-2025 ambulatory FELIX WU Facility:[facility] Start: 09-09-2025 End: 09-09-2025 ambulatory [facility] Facility:[facility] Start: 09-03-2025 [facility] Facility: [facility] Start: 08-29-2025 End: 08-29-2025 ambulatory [facility] Facility:[facility] Start: 08-08-2025 End: 08-08-2025 Patient encounter procedure Pastora Murphy APRN.CNM Work Phone: OB/Gynecology Comment on above: Vulvar irritation (P rimary Dx); Vulvar burning; Postmenopausal; Vaginal atrophy; Vaginal discharge Start: 08-08-2025 End: 08-08-2025 ambulatory PASTORA MURPHY Facility:[facility] Start: 08-04-2025 End: 08-05-2025 Telephone encounter Felix Wu APRN.OFFBEARER Work Phone: Neurology Comment on above: Appointment Start: 07-27-2025 ambulatory DARREN Travis y:[facility] Start: 07-27-2025 End: 07-27-2025 Subsequent hospital visit by physician [employer] [facility] (I-Stat/1.5t) Work Phone: Radiology Comment on above: Spinal stenosis of c ervical region [M48.02] Start: 05-03-2025 End: 05-03-2025 ambulatory Evi Pantoja CCC-JUKEBOX CHECKER [facility] Comment on above: Spastic dysarthria Start: 05-03-2025 End: 05-03-2025 ambulatory Jennifer Lockett OTR/L Work Phone: [facility] Comment on above: Decreased telephone coin box collector stren gth of right hand (Primary Dx); Cervical spondylosis with myelopathy; Neuropathy Start: 04-26-2025 End: 04-26-2025 OT/PT/Speech [facility] Comment on above: Radiculopathy, cervi ceasar region (Primary Dx); Cervical spondylosis with myelopathy; Neuropathy; Radiculopathy, lumbar region; Multifactorial gait disorder Start: 04-11-2025 End: 04-11-2025 Office outpatient new 60 minutes Darren Mercado MD Work Phone: Neurology [facility] Comment on above: Cervical spondylosis with myelopathy (Primary Dx); Neuropathy; Radiculopathy, lumbar region; Multifactorial gait disorder; Spastic dysarthria; Spinal stenosis of cervical region; Decline in verbal memory; Unspecified ptosis of right eyelid; History of falling Start: 04-11-2025 End: 04-11-2025 ambulatory DARREN MERCADO Facility:[facility] Start: 04-11-2025 End: 04-11-2025 Telephone encounter Darren Mercado MD Work Phone: [facility] Comment on above: Appointment (Called patient to schedule a New Brain Health Consult Appt. for memory loss per staff message and left a message to schedule it as soon as she can near her home location (if it were avaliable) .) Start: 03-18-2025 End: 05-18-2025 Follow-up encounter Emily Haney APRN.CNP Work Phone: OB/Gynecology Start: 03-17-2025 End: 03-17-2025 ambulatory LAKEISHA LEMONS Facility:[facility] Start: 03-17-2025 Encounter for gynecological examination (general) (routine) without abnormal findings LAKEISHA LEMONS [facility] Start: 02-28-2025 ambulatory Summer Anaid Facility: [facility] Start: 02-08-2025 End: 02-08-2025 ambulatory [facility] Start: 02-08-2025 End: 02-08-2025 Patient encounter procedure Denisha Steiner PA-C Work Phone: Neurology Comment on above: Frequent falls (Prim saritha Dx); Paresthesia of skin; Generalized weakness; NPH (normal pressure hydrocephalus) (HCC); Memory loss Start: 01-13-2025 End: 01-21-2025 Follow-up encounter Denisha Steiner PA-C Work Phone: Neurology Start: 01-12-2025 End: 01-12-2025 ambulatory [facility]ISHA [facility] Facility:[facility] Start: 01-12-2025 End: 01-12-2025 Subsequent hospital visit by physician Mri [employer] [facility] (I-Stat/1.5t) Work Phone: Radiology Comment on above: Cerebral infarction, unspecified mechanism (HCC) [I63.9] Start: 01-11-2025 End: 01-12-2025 Telephone encounter Denisha Steiner PA-C Work Phone: Neurology Comment on above: Patient Update Start: 01-04-2025 End: 01-04-2025 ambulatory [facility] Facility:[facility] Start: 01-04-2025 End: 01-04-2025 Patient encounter procedure Denisha Steiner PA-C Work Phone: Neurology Comment on above: Paresthesia of skin (Primary Dx); Cerebral infarction, unspecified mechanism (HCC); Generalized weakness; Frequent falls Start: 11-08-2024 ambulatory [facility] Facility: [facility] Start: 10-13-2024 End: 10-13-2024 ambulatory [facility] Facility:[facility] Start: 09-23-2024 End: 09-23-2024 ambulatory [facility] Facility:[facility] Start: 03-19-2024 Non-patient / Non-visit Dr. Summer Worrell Work Phone: [facility] Start: 03-19-2024 End: 03-19-2024 Admission to same day surgery center Dr. Summer Worrell Work Phone: [facility]-Endoscopy Work Phone: Start: 03-19-2024 End: 03-19-[address] Summer Worrell Work Phone: [facility] Work Phone: Start: 03-18-2024 Non-patient / Non-visit Dr. Summer Worrell Work Phone: [facility] Start: 03-13-2024 End: 03-13-[address] Summer Worrell Work Phone: [facility] Work Phone: Start: 03-13-2024 End: 03-13-[address] Summer Worrell Work Phone: [facility]-Medical Out Work Phone: Start: 03-11-2024 End: 03-29-2024 Evaluation and management of inpatient Dr. Summer Worrell Work Phone: [facility]-Transitional Care Unit Start: 03-11-2024 Non-patient / Non-visit Dr. Summer Worrell Work Phone: [facility] Work Phone: Start: 03-10-2024 Non-patient / Non-visit Dr. Summer Worrell Work Phone: [facility] Work Phone: Start: 03-09-2024 Non-patient / Non-visit Dr. Summer Worrell Work Phone: [facility] Work Phone: Start: 03-08-2024 Non-patient / Non-visit Dr. Summer Worrell Work Phone: [facility] Work Phone: Start: 03-07-2024 End: 03-11-2024 Evaluation and management of inpatient Dr. Summer Worrell Work Phone: [facility]-Medical Surgical 3 Work Phone: Start: 03-02-2024 End: 03-02-[address] Summer Worrell Work Phone: [facility] Work Phone: Start: 03-02-2024 End: 03-02-[address] Summer Worrell Work Phone: [facility]-Laboratory, Francia [facility] Start: 02-25-[address] Summer Worrell Work Phone: [facility]-Physical Therapy Work Phone: Start: 02-03-2024 End: 02-03-[address] Summer Worrell Work Phone: [facility] Work Phone: Start: 02-03-2024 End: 02-03-[address] Summer Worrell Work Phone: [facility]-Laboratory, Specimen Work Phone: Start: 01-27-2024 End: 01-27-2024 Emergency department patient visit Dr. Summer Worrell Work Phone: [facility]-Emergency Department Work Phone: Start: 01-20-2024 End: 01-20-[address] Summer Worrell Work Phone: [facility] Work Phone: Start: 01-20-2024 End: 01-20-[address] Summer Worrell Work Phone: [facility]-Laboratory, Specimen Work Phone: Start: 01-19-2024 End: 01-19-[address] Summer Worrell Work Phone: [facility] Work Phone: Start: 01-19-2024 End: 01-19-[address] Summer Worrell Work Phone: [facility], [facility]ia [facility] Start: 01-16-[address] Summer Worrell Work Phone: [facility]-Physical Therapy Work Phone: Start: 12-24-2023 End: 12-24-[address] Summer Worrell Work Phone: [facility] Work Phone: Start: 12-24-2023 End: 12-24-[address] Summer Worrell Work Phone: [facility] Work Phone: Start: 12-18-[address] Summer Worrell Work Phone: [facility]-Physical Therapy Work Phone: Start: 11-12-2023 End: 11-12-[address] Summer Worrell Work Phone: [facility] Work Phone: Start: 11-08-2023 End: 11-08-[address] Summer Worrell Work Phone: [facility] Work Phone: Start: 11-08-2023 End: 11-08-[address] Summer Worrell Work Phone: [facility] Work Phone: Start: 10-20-2023 End: 10-20-[address] Summer Worrell Work Phone: [facility] Work Phone: Start: 10-01-2023 End: 10-01-[address] Summer Worrell Work Phone: [facility] Work Phone: Start: 10-01-2023 End: 10-01-[address] Summer Worrell Work Phone: [facility] Work Phone: Start: 09-04-2023 Non-patient / Non-visit Dr. Summer Worrell Work Phone: [facility] Start: 09-04-2023 End: 09-04-[address] Summer Worrell Work Phone: [facility] Work Phone: Start: 09-04-2023 End: 09-04-[address] Summer Worrell Work Phone: [facility]-Cardiovascular Services Work Phone: Start: 09-03-2023 End: 09-03-[address] Summer Worrell Work Phone: [facility] Work Phone: Start: 09-03-2023 End: 09-03-[address] Summer Worrell Work Phone: [facility]-Laboratory, Specimen Work Phone: Start: 09-03-2023 End: 09-03-[address] Summer Worrell Work Phone: [facility] Work Phone: Start: 08-28-2023 End: 08-28-[address] Summer Worrell Work Phone: [facility]atory, [place] [facility] Start: 07-24-2023 End: 07-24-[address] Summer Worrell Work Phone: [facility] Work Phone: Start: 07-24-2023 End: 07-24-[address] Summer Worrell Work Phone: [facility]-Laboratory, Specimen Work Phone: Start: 07-24-2023 End: 07-24-[address] Summer Worrell Work Phone: [facility] Work Phone: Start: 07-16-2023 End: 07-16-2023 ambulatory Emg 850) Neurology Comment on above: Arrived Start: 07-16-2023 End: 07-16-2023 Patient encounter procedure Emg 2 Neur Rosi (Max Weight: 850) ROSI Start: 07-15-2023 End: 07-15-2023 Patient encounter procedure Analisa Holden MD Work Phone: Neurology Comment on above: Gait instability (Pr imary Dx) Start: 06-04-2023 End: 06-04-[address] Summer Worrell Work Phone: [facility] Work Phone: Start: 06-04-2023 End: 06-04-[address] Summer Worrell Work Phone: [facility]-Cat Scan, [facility] Work Phone: Start: 04-17-2023 End: 04-17-2023 Emergency department patient visit Dr. Summer Worrell Work Phone: [facility]-Emergency Department Work Phone: Start: 04-08-2023 End: 04-08-2023 ambulatory [facility] Work Phone: Start: 04-08-2023 End: 04-08-2023 Discharged Recurring [facility]-Physical Therapy Work Phone: Start: 04-08-[address] Summer Worrell Work Phone: [facility]-Physical Therapy Work Phone: Start: 03-28-2023 Telephone encounter Lexi leung MOTOR AND GENERATOR BRUSH MAKER.OFFBEARER Work Phone: OB/Gynecology Comment on above: Results Start: 03-27-2023 End: 03-27-2023 Patient encounter procedure Lexi Whipplecalf MOTOR AND GENERATOR BRUSH MAKER.OFFBEARER Work Phone: OB/Gynecology Comment on above: Vaginal irritation ( Primary Dx) Start: 02-13-2023 End: 02-13-[address] Summer Worrell Work Phone: [facility] Work Phone: Start: 11-01-2022 End: 11-01-2022 ambulatory [facility] Work Phone: Start: 11-01-2022 End: 11-01-2022 Patient encounter procedure [facility]-Laboratory, [facility] Start: 07-04-2022 End: 07-04-2022 Admission to same day surgery center [facility]-Surgical Day Care Start: 06-28-2022 End: 06-28-2022 Patient encounter procedure [facility]-Laboratory, Specimen Start: 08-07-2018 Ophthalmic examinati on and evaluation Lexi Benjamin MOTOR AND GENERATOR BRUSH MAKER.OFFBEARER Work Phone: [facility] Start: 02-18-2018 Patient encounter procedure Lexi Benjamin MOTOR AND GENERATOR BRUSH MAKER.OFFBEARER Work Phone: [facility] Work Phone: Start: 08-20-2017 Patient encounter status Lexi Whipplecalf MOTOR AND GENERATOR BRUSH MAKER.OFFBEARER Work Phone: [facility] Work Phone: Procedures Date Procedure Procedure Detail Performing Clinician Start: 08-08-2025 BACTERIAL VAGINOSIS NAAT Pastora Murphy MOTOR AND GENERATOR BRUSH MAKER.CNM Work Phone: Start: 08-08-2025 [place] trichomonas vaginalis [...] (Not Applicable) Start: 07-18-2017 Mammography Lexi Benjamin MOTOR AND GENERATOR BRUSH MAKER.OFFBEARER Work Phone: Start: 04-25-2008 Colonoscopy Lexi Whipplecalf MOTOR AND GENERATOR BRUSH MAKER.OFFBEARER Work Phone: Urine culture Plan of Treatment Date Care Activity Detail Author Start: 01-27-2031 Urine microalbumin profile DTaP,Tdap,Td Vaccine (4 - Td or Tdap) [facility] Start: 03-17-2026 End: 03-17-2026 Patient encounter procedure 03/17/2026 2:20 PM EDT Office Visit OB/Gynecology [address] [place], [place] [id number] Lakeisha Lemons MD [address] [place], [place] [id number] Annual OB/Gynecology Comment on above: Annual Start: 11-16-2025 End: 11-16-2025 Patient encounter procedure 11/16/2025 9:00 AM EST Office Visit Neurology [address] [place], [place] [phone] Barbie Naylor MD [address] [place] [id number] Decline in verbal memory [R41.3] AWARE MAIN Neurology Comment on above: Decline in verbal memory [R41.3] AWARE M AIN Start: 08-29-2025 End: 08-29-2025 Patient encounter procedure 08/29/2025 2:45 PM EDT Office Visit OB/Gynecology [address] [place], [place] [phone] Pastora Murphy APRN.CN [address] [place], [place] [id number] Vulva Biopsy OB/Gynecology Comment on above: Vulva Biopsy Start: 08-17-2025 End: 08-17-2025 Patient encounter procedure 08/17/2025 8:30 AM EDT Office Visit Neurology [address] [address] Polly Vasquez MD [address] [place] [place] [address] Decline in verbal memory [R41.3] Neurology Comment on above: Decline in verbal memory [R41.3] Start: 08-12-2025 End: 08-12-2025 Patient encounter procedure 08/12/2025 11:00 AM EDT Office Visit Neurology [address] [phone] Felix Wu, MOTOR AND GENERATOR BRUSH MAKER.OFFBEARER [address] [place], [place] [phone] neuropathy/ muscular weakness Neurology Comment on above: neuropathy/ muscular weakness Start: 08-08-2025 End: 08-08-2025 Patient encounter procedure 08/08/2025 9:30 AM EDT Office Visit OB/Gynecology [address] [place] [address] Pastora Murphy APRN.CN [address] [place] [place] [address] (Fax) Vaginal pain OB/Gynecology Comment on above: Vaginal pain Start: 08-05-2025 End: 08-05-2025 Patient encounter procedure 08/05/2025 11:00 AM EDT Office Visit Neurology [address] [address] Felix Wu, MOTOR AND GENERATOR BRUSH MAKER.OFFBEARER [address] [facility] [address] [place], [place] [phone] Cervical spondylosis with myelopathy [M47.12] Neurology Comment on above: Cervical spondylosis with myelopathy [M4 7.12] Start: 07-25-2025 Influenza vaccination [facility] Start: 07-13-2025 End: 07-13-2025 Patient encounter procedure 07/13/2025 11:30 AM EDT Office Visit Neurology [address] [place] [address] Denisha Steiner PA-C [address] [place] [address] Balance F/U Neurology Comment on above: Balance F/U Start: 06-17-2025 End: 06-17-2025 Patient encounter procedure 06/17/2025 4:40 PM EDT Office Visit Neurology [address] [place], [place] [address] Shilo Tinoco Jr., MD [address] [place], [place] [phone] 4MO OV Neurology Comment on above: 4MO OV Start: 05-03-2025 End: 05-03-2025 ambulatory 05/03/2025 3:30 PM EDT OT/PT/Speech Visit [facility] [address] [place] [phone] Evi Pantoja, ANA-JUKEBOX CHECKER Spastic dysarthria [facility] Comment on above: Spastic dysarthria Start: 05-03-2025 End: 05-03-2025 ambulatory 05/03/2025 2:15 PM EDT OT/PT/Speech Visit [facility] [address] [place] [phone] Jennifer Lockett, OTR/L [address] [place] [address] Neuropathy [facility] Comment on above: Neuropathy Start: 04-11-2025 End: 04-11-2025 Patient encounter procedure 04/11/2025 3:00 PM EDT Office Visit Neurology [facility] [address] [place] [address] Darren Mercado MD [address] [place] [address] NPH (normal pressure hydrocephalus) (HCC) [G91.2 Neurology [facility] Comment on above: NPH (normal pressure hydrocephalus) (HCC ) [G91.2 Start: 02-08-2025 End: 02-08-2025 Patient encounter procedure 02/08/2025 8:00 AM EDT Office Visit Neurology [address] [place], [place] [phone] Denisha Steiner PA-C [address] [place], [place] [phone] Go over Mri Results Neurology Comment on above: Go over Mri Results Start: 01-19-2025 End: 01-19-2025 ambulatory 01/19/2025 12:45 PM EST Procedure Neurology [address] [place] [phone] Paresthesia of skin [R20.2] Neurology Comment on above: Paresthesia of skin [R20.2] Start: 01-12-2025 End: 01-12-2025 Patient encounter procedure 01/12/2025 2:00 PM EST Appointment Radiology [address] [place] [address] Dx: Cerebral infarction, unspecified mechanism (HCC) [I63.9]; Frequent falls [R29.6] Radiology Comment on above: Dx: Cerebral infarction, unspecified mec hanism (HCC) [I63.9]; Frequent falls [R29.6] Start: 2025 RSV Vaccine (1 - 1-dose 75+ series) RSV Vaccine (1 - 1-dose 75+ series) [facility] Start: 11-24-2024 Advance Directive Discussion Advance Directive Discussion [facility] Start: 11-24-2024 Medicare Advantage Annual Wellness Visit Medicare Advantage Annual Wellness Visit [facility] Start: 07-25-2024 Covid-19 Vaccine ( season) Covid-19 Vaccine ( season) [facility] Start: 07-25-2024 Influenza vaccination Influenza Vaccine (#1) [facility] Start: 04-09-2024 Blood chemistry [facility] Start: 04-02-2024 Blood chemistry [facility] Start: 03-29-2024 Development of care plan [facility] Start: 03-29-2024 Patient discharge [facility] Start: 03-26-2024 Blood chemistry [facility] Start: 03-24-2024 Femur Min 2 Views Femur Min 2 Views [facility] Start: 03-24-2024 XR Femur 2 Views [facility] Start: 03-19-2024 Egd transoral biopsy single/multiple EGD BIOPSY SINGLE/MULTIPLE [facility] Start: 03-19-2024 Egd transoral control bleeding any method EGD CONTROL BLEEDING ANY [facility] Start: 03-19-2024 Blood chemistry [facility] Start: 03-19-2024 Patient discharge [facility] Start: 03-18-2024 [facility] Start: 03-17-2024 Referral to gastroenterology service [facility] Start: 03-17-2024 [facility] Start: 03-15-2024 Contact precautions [facility] Start: 03-14-2024 [facility] Start: 03-13-2024 Administration of blood product [facility] Start: 03-13-2024 Following clinical pathway protocol [facility] Start: 03-13-2024 Administration of blood product [facility] Start: 03-13-2024 End: 03-14-2024 [facility] Start: 03-12-2024 End: 03-13-2024 [facility] Start: 03-12-2024 Developing a treatment plan [facility] Start: 03-12-2024 Speech therapy management [facility] Start: 03-12-2024 Development of care plan [facility] Start: 03-12-2024 Administration of blood product [facility] Start: 03-11-2024 [facility] Start: 03-11-2024 Speech therapy assessment [facility] Start: 03-11-2024 Wound care [facility] Start: 03-11-2024 Verification routine [facility] Start: 03-11-2024 Following clinical pathway protocol [facility] Start: 03-11-2024 Admission procedure [facility] Start: 03-11-2024 Measuring intake and output [facility] Start: 03-11-2024 Patient referral to dietitian [facility] Start: 03-11-2024 Referral to occupational therapist [facility] Start: 03-11-2024 Referral to service [facility] Start: 03-11-2024 Vital signs measurements [facility] Start: 03-11-2024 End: 03-11-2024 [facility] Start: 03-11-2024 Patient discharge [facility] Start: 03-11-2024 Application of device [facility] Start: 03-09-2024 Recommendation to continue with treatment [facility] Start: 03-09-2024 Measuring intake and output [facility] Start: 03-09-2024 Application of ice collar, cap or bag [facility] Start: 03-08-2024 Ambulation therapy management [facility] Start: 03-08-2024 Application of device [facility] Start: 03-08-2024 Exercises [facility] Start: 03-08-2024 Following clinical pathway protocol [facility] Start: 03-08-2024 Introduction of urinary catheter [facility] Start: 03-08-2024 Neurovascular assessment [facility] Start: 03-08-2024 Patient education [facility] Start: 03-08-2024 Provision of activity privileges [facility] Start: 03-08-2024 Referral to occupational therapist [facility] Start: 03-08-2024 Referral to service [facility] Start: 03-08-2024 Vital signs measurements [facility] Start: 03-08-2024 Wound care [facility] Start: 03-08-2024 [facility] Start: 03-08-2024 Open reduction of fracture of femur with internal fixation ORIF, Hip, Gamma Nail (Left) [facility] Start: 03-08-2024 Referral to occupational therapist [facility] Start: 03-08-2024 Referral to service [facility] Start: 03-08-2024 Application of intermittent pneumatic compression device [facility] Start: 03-08-2024 End: 03-08-2024 Measuring intake and output [facility] Start: 03-08-2024 Care regimes management [facility] Start: 03-08-2024 Notification of physician [facility] Start: 03-08-2024 Application of ice collar, cap or bag [facility] Start: 03-08-2024 Assessment of risk of venous thromboembolism [facility] Start: 03-08-2024 Bedrest [facility] Start: 03-08-2024 Neurovascular assessment [facility] Start: 03-08-2024 Skin care [facility] Start: 03-08-2024 End: 03-08-2024 [facility] Start: 03-08-2024 Fluoroscopic guidance O.R. Fluoro for C-Arm [facility] Start: 03-08-2024 Plain x-ray of pelvis and lower extremity Hip 1 view with Pelvis [facility] Start: 03-08-2024 End: 03-08-2024 [facility] Start: 03-08-2024 Application of mechanical traction on skin [facility] Start: 03-07-2024 Application of intermittent pneumatic compression device [facility] Start: 03-07-2024 Following clinical pathway protocol [facility] Start: 03-07-2024 Assessment of risk of venous thromboembolism [facility] Start: 03-07-2024 Consultation [facility] Start: 03-07-2024 Documentation procedure [facility] Start: 03-07-2024 Incentive spirometry [facility] Start: 03-07-2024 Insertion of catheter into peripheral vein [facility] Start: 03-07-2024 Measuring intake and output [facility] Start: 03-07-2024 Oxygen therapy [facility] Start: 03-07-2024 Providing care according to standard [facility] Start: 03-07-2024 Referral to service [facility] Start: 03-07-2024 [facility] Start: 03-07-2024 Verification routine [facility] Start: 03-07-2024 Admission procedure [facility] Start: 03-07-2024 Application of ice collar, cap or bag [facility] Start: 01-27-2024 [facility] Start: 01-22-2024 [facility] Start: 01-22-2024 Bacteria identified in Urine by Culture [facility] Start: 07-25-2023 Influenza vaccination [facility] Start: 07-15-2023 End: 09-14-2023 25-hydroxyvitamin D3 [Mass/volume] in Serum or Plasma VITAMIN D 25 HYDROXY Lab Routine Gait instability Expected: 07/15/2023, Expires: 09/14/2023 [facility] Work Phone: Comment on above: Expected: 07/15/2023, Expires: Start: 07-15-2023 End: 09-14-2023 Cobalamin (Vitamin B12) [Mass/volume] in Serum or Plasma VITAMIN B12 BLOOD Lab Routine Gait instability Expected: 07/15/2023, Expires: 09/14/2023 [facility] Work Phone: Comment on above: Expected: 07/15/2023, Expires: Start: 07-15-2023 End: 09-14-2023 Methylmalonate [Moles/volume] in Serum or Plasma METHYLMALONIC ACID Lab Routine Gait instability Expected: 07/15/2023, Expires: 09/14/2023 [facility] Work Phone: Comment on above: Expected: 07/15/2023, Expires: 3 Start: 07-15-2023 End: 09-14-2023 MONOCLONAL PROT UR W/INTERP MONOCLONAL PROT UR W/INTERP Lab Routine Gait instability Expected: 07/15/2023, Expires: 09/14/2023 [facility] Work Phone: Comment on above: Expected: 07/15/2023, Expires: Start: 07-15-2023 End: 09-14-2023 MONOCLONAL PROTEIN, SERUM (BLOOD) MONOCLONAL PROTEIN, SERUM (BLOOD) Lab Routine Gait instability Expected: 07/15/2023, Expires: 09/14/2023 [facility] Work Phone: Comment on above: Expected: 07/15/2023, Expires: Start: 01-13-2023 COVID-19 VACCINE (5 - Pfizer series) COVID-19 VACCINE (5 - Pfizer series) [facility] Start: 11-24-2022 ADVANCE DIRECTIVE DISCUSSION ADVANCE DIRECTIVE DISCUSSION [facility] Start: 07-04-2022 Patient discharge [facility] Work Phone: Start: 01-21-2022 Hemoglobin A1c measurement HbA1C [facility] Start: 01-21-2022 Hemoglobin A1c/Hemoglobin.total in Blood HBA1C [facility] Start: 08-07-2019 Glaucoma screening Dilated Retinal Exam [facility] Start: 08-07-2019 Hepatitis C antibody, confirmatory test DILATED RETINAL EXAM [facility] Start: 04-15-2019 ANNUAL PCP TEAM CHRONIC DISEASE VISIT ANNUAL PCP TEAM CHRONIC DISEASE VISIT [facility] Start: 03-30-2019 FECAL OCCULT BLOOD FECAL OCCULT BLOOD [facility] Start: 03-30-2019 Screening for malignant neoplasm of colon Fecal Occult Blood [facility] Start: 02-13-2019 Hepatitis B surface antibody level LDL CHOLESTEROL [facility] Start: 11-24-2018 Urine microalbumin profile DTAP,TDAP,TD (3 - Td or Tdap) [facility] Start: 08-20-2018 3 comp foot exam completed DIABETIC FOOT EXAM [facility] Start: 08-20-2018 Diabetic foot examination Diabetic Foot Exam [facility] Start: 08-20-2018 Hepatitis B screening URINE ALBUMIN:CREATININE RATIO [facility] Start: 08-16-2018 Hemoglobin A1c/Hemoglobin.total in Blood HBA1C [facility] Start: 07-18-2018 Mammography MAMMOGRAM [facility] Start: 07-18-2018 Screening for malignant neoplasm of breast Mammogram Screening [facility] Start: 04-25-2018 Colonoscopy COLONOSCOPY [facility] Start: 04-25-2018 COLORECTAL CANCER SCREENING COLORECTAL CANCER SCREENING [facility] Start: 04-25-2018 Screening for malignant neoplasm of colon [facility] Start: 10-15-2017 PNEUMOCOCCAL: 65+ (2 - PPSV23 if available, else PCV20) PNEUMOCOCCAL: 65+ (2 - PPSV23 if available, else PCV20) [facility] Start: 10-15-2017 PNEUMOCOCCAL: 65+ (2 - PPSV23 or PCV20) PNEUMOCOCCAL: 65+ (2 - PPSV23 or PCV20) [facility] Start: 07-24-2017 End: 07-24-2017 Appointment Appointment [facility] Work Phone: Start: 07-24-2017 End: 07-24-2017 Thyroid stimulating hormone (TSH) *TSH [facility] Work Phone: Start: 07-24-2017 End: 07-24-2017 Thyroxine (T4) free *T4 free [facility] Work Phone: Start: 07-24-2017 End: 07-24-2017 Triiodothyronine (T3) free *T3-Free [facility] Work Phone: Start: 07-15-2015 SHINGRIX VACCINE (2 of 3) SHINGRIX VACCINE (2 of 3) [facility] Start: 2000 Influenza vaccination LUNG CANCER SCREENING [facility] Start: 2000 Screening for malignant neoplasm of lung Lung Cancer Screening [facility] Start: 1995 COLOGUARD (FIT-DNA) COLOGUARD (FIT-DNA) [facility] Start: [address] COLONOGRAPHY [facility] Start: 1995 Screening for malignant neoplasm of colon [facility] Start: 1995 SIGMOIDOSCOPY SIGMOIDOSCOPY [facility] Start: 1968 ANNUAL PCP TEAM CHRONIC DISEASE VISIT ANNUAL PCP TEAM CHRONIC DISEASE VISIT [facility] Start: 1968 BP CONTROLLED (<130/80) BP CONTROLLED (<130/80) [facility] Start: 1968 zzBP Controlled (<130/80) (Retired) zzBP Controlled (<130/80) (Retired) [facility] Alanine aminotransferase [Enzymatic activity/volume] in Serum or Plasma [facility] Albumin [Mass/volume ] in Serum or Plasma [facility] Alkaline phosphatase [Enzymatic activity/volume] in Serum or Plasma [facility] Anion gap measurement [facility] Anion gap measurement [facility] Anion gap measurement [facility] Anion gap measurement [facility] Anion gap measurement [facility] Aspartate aminotransferase [Enzymatic activity/volume] in Serum or Plasma [facility] BACTERIAL VAGINOSIS AMPLIFICATION BACTERIAL VAGINOSIS AMPLIFICATION Lab Routine Vaginal irritation 03/27/2023 9:17 AM EDT [facility] Work Phone: Bilirubin, total measurement [facility] BUN/Creatinine ratio [facility] BUN/Creatinine ratio [facility] BUN/Creatinine ratio [facility] BUN/Creatinine ratio [facility] BUN/Creatinine ratio [facility] Calcium [Mass/volume ] in Serum or Plasma [facility] Calcium [Mass/volume ] in Serum or Plasma [facility] Calcium [Mass/volume ] in Serum or Plasma [facility] Calcium [Mass/volume ] in Serum or Plasma [facility] Calcium [Mass/volume ] in Serum or Plasma [facility] JOAN / TRICHOMONA S AMPLIFICATION JOAN / TRICHOMONAS AMPLIFICATION Microbiology Routine Vaginal irritation 03/27/2023 9:17 AM EDT [facility] Work Phone: Carbon dioxide, tota l [Moles/volume] in Serum or Plasma [facility] Carbon dioxide, tota l [Moles/volume] in Serum or Plasma [facility] Carbon dioxide, tota l [Moles/volume] in Serum or Plasma [facility] Carbon dioxide, tota l [Moles/volume] in Serum or Plasma [facility] Carbon dioxide, tota l [Moles/volume] in Serum or Plasma [facility] Chloride [Moles/volu me] in Serum or Plasma [facility] Chloride [Moles/volu me] in Serum or Plasma [facility] Chloride [Moles/volu me] in Serum or Plasma [facility] Chloride [Moles/volu me] in Serum or Plasma [facility] Chloride [Moles/volu me] in Serum or Plasma [facility] Creatinine [Moles/volume] in Serum or Plasma [facility] Creatinine [Moles/volume] in Serum or Plasma [facility] Creatinine [Moles/volume] in Serum or Plasma [facility] Creatinine [Moles/volume] in Serum or Plasma [facility] Creatinine [Moles/volume] in Serum or Plasma [facility] End: 07-15-2024 EMG(NEURO/NI) EMG(NEURO/NI) EMG Routine Gait instability 1 Occurrences starting 07/15/2023 until 07/15/2024 [facility] Work Phone: Comment on above: 1 Occurrences starting 07/15/2023 until 07/15/2024 Endometrial bx w/wo endocervix bx w/o dilat spx ENDOMETRIAL BIOPSY Procedures Routine Vulvar irritation Vulvar burning Postmenopausal Ordered: 08/08/2025 [facility] Work Phone: Comment on above: Ordered: 08/08/2025 Erythrocyte mean corpuscular volume determination [facility] Erythrocyte mean corpuscular volume determination [facility] Erythrocyte mean corpuscular volume determination [facility] Erythrocyte mean corpuscular volume determination [facility] Erythrocyte mean corpuscular volume determination [facility] Glucose [Mass/volume ] in Serum or Plasma [facility] Glucose [Mass/volume ] in Serum or Plasma [facility] Glucose [Mass/volume ] in Serum or Plasma [facility] Glucose [Mass/volume ] in Serum or Plasma [facility] Glucose [Mass/volume ] in Serum or Plasma [facility] Hematocrit [Volume Fraction] of Blood [facility] Hematocrit [Volume Fraction] of Blood [facility] Hematocrit [Volume Fraction] of Blood [facility] Hematocrit [Volume Fraction] of Blood [facility] Hematocrit [Volume Fraction] of Blood [facility] Hemoglobin [Mass/volume] in Blood [facility] Hemoglobin [Mass/volume] in Blood [facility] Hemoglobin [Mass/volume] in Blood [facility] Hemoglobin [Mass/volume] in Blood [facility] Hemoglobin [Mass/volume] in Blood [facility] Leukocytes [#/volume ] in Blood [facility] Leukocytes [#/volume ] in Blood [facility] Leukocytes [#/volume ] in Blood [facility] Leukocytes [#/volume ] in Blood [facility] Leukocytes [#/volume ] in Blood [facility] Magnesium [Mass/volu me] in Serum or Plasma [facility] Mean corpuscular hemoglobin concentration determination [facility] Mean corpuscular hemoglobin concentration determination [facility] Mean corpuscular hemoglobin concentration determination [facility] Mean corpuscular hemoglobin concentration determination [facility] Mean corpuscular hemoglobin concentration determination [facility] Mean corpuscular hemoglobin determination [facility] Mean corpuscular hemoglobin determination [facility] Mean corpuscular hemoglobin determination [facility] Mean corpuscular hemoglobin determination [facility] Mean corpuscular hemoglobin determination [facility] Measurement of renal function [facility] Measurement of renal function [facility] Measurement of renal function [facility] Measurement of renal function [facility] Measurement of renal function [facility] End: 02-03-2026 MR Brain WO contrast MRI BRAIN WO IVCON Radiology Routine Cerebral infarction, unspecified mechanism (HCC) Frequent falls 1 Occurrences starting 01/04/2025 until 02/03/2026 [facility] Work Phone: Comment on above: 1 Occurrences starting 01/04/2025 until 02/03/2026 End: 05-11-2026 MR Cervical spine WO contrast MRI CERVICAL SPINE WO [facility] Radiology Routine Spinal stenosis of cervical region 1 Occurrences starting 04/11/2025 until 05/11/2026 [facility] Work Phone: Comment on above: 1 Occurrences starting 04/11/2025 until 05/11/2026 Neutrophil count [facility] Neutrophil count [facility] Neutrophil count [facility] Neutrophil count [facility] Neutrophil count [facility] Neutrophil percent differential count [facility] Neutrophil percent differential count [facility] Neutrophil percent differential count [facility] Neutrophil percent differential count [facility] Neutrophil percent differential count [facility] Patient Education [facility] Work Phone: Patient referral [facility] Work Phone: Platelets [#/volume] in Blood [facility] Platelets [#/volume] in Blood [facility] Platelets [#/volume] in Blood [facility] Platelets [#/volume] in Blood [facility] Platelets [#/volume] in Blood [facility] Potassium [Moles/volume] in Serum or Plasma [facility] Potassium [Moles/volume] in Serum or Plasma [facility] Potassium [Moles/volume] in Serum or Plasma [facility] Potassium [Moles/volume] in Serum or Plasma [facility] Potassium [Moles/volume] in Serum or Plasma [facility] Red blood cell count [facility] Red blood cell count [facility] Red blood cell count [facility] Red blood cell count [facility] Red blood cell count [facility] Red cell distributio n width determination [facility] Red cell distributio n width determination [facility] Red cell distributio n width determination [facility] Red cell distributio n width determination [facility] Red cell distributio n width determination [facility] Serum inorganic phosphate measurement [facility] SKIN BIOPSY FOR NEUROPATHY/CNL SKIN BIOPSY FOR NEUROPATHY/CNL Procedures Routine Paresthesia of skin Ordered: 01/04/2025 [facility] Comment on above: Ordered: 01/04/2025 Sodium [Moles/volume ] in Serum or Plasma [facility] Sodium [Moles/volume ] in Serum or Plasma [facility] Sodium [Moles/volume ] in Serum or Plasma [facility] Sodium [Moles/volume ] in Serum or Plasma [facility] Sodium [Moles/volume ] in Serum or Plasma [facility] Total protein measurement [facility] Urea nitrogen [Mass/volume] in Serum or Plasma [facility] Urea nitrogen [Mass/volume] in Serum or Plasma [facility] Urea nitrogen [Mass/volume] in Serum or Plasma [facility] Urea nitrogen [Mass/volume] in Serum or Plasma [facility] Urea nitrogen [Mass/volume] in Serum or Plasma [facility] Immunizations Immunization Date Immunization Notes Care Provider Juanita desir 09-12-2022 Covid Pfizer Bivalen t Booster Dr. Summer Worrell Work Phone: [facility] 09-20-2021 Covid (Pfizer) Dr. Summer parker Work Phone: [facility] 02-15-2021 Covid (Pfizer) [facility] 01-27-2021 tetanus toxoid, redu sajan diphtheria toxoid, and acellular pertussis vaccine, adsorbed [facility] 01-25-2021 Covid (Pfizer) [facility] 08-20-2017 pneumococcal conjuga te vaccine, 13 valent [place]i [place] [employer].OFFBEARER Work Phone: [facility] 07-20-2017 pneumococcal polysaccharide vaccine, [address] Summer Worrell Work Phone: [facility] 10-04-2015 influenza, high dose seasonal, preservative-free Lexi [place] [employer].OFFBEARER Work Phone: [facility] 10-04-2015 pneumococcal conjuga te vaccine, 13 valent Lexi [place] [employer].OFFBEARER Work Phone: [facility] 10-04-2015 influenza virus vacc ine, unspecified formulation Denisha Steiner PA-C Work Phone: [facility] 05-20-2015 zoster vaccine, live Lexi [place] [employer].OFFBEARER Work Phone: [facility] Work Phone: 10-28-2012 influenza, injectabl e, quadrivalent, preservative free Dr. Summer Worrell Work Phone: [facility] 10-28-2012 influenza, seasonal, injectable Lexi [place] [employer].OFFBEARER Work Phone: [facility] 10-28-2011 influenza, injectabl e, quadrivalent, preservative free Dr. Summer Worrell Work Phone: [facility] 10-28-2011 influenza, seasonal, injectable Lexi Francia [employer].OFFBEARER Work Phone: [facility] 11-24-2008 tetanus toxoid, redu sajan diphtheria toxoid, and acellular pertussis vaccine, adsorbed Lexi Francia [employer].OFFBEARER Work Phone: [facility] 11-24-2003 tetanus toxoid, redu sajan diphtheria toxoid, and acellular pertussis vaccine, adsorbed Lexi Francia [employer].OFFBEARER Work Phone: [facility] Payers Date Payer Category Payer Self-pay [id number] 2019 Medicare HUMANA MEDICARE HU[employer]NA MEDICARE PPO [id number] 2019-Present [phone] [place] [address] PPO [id number] 2019 Medicare (Managed Care) HUMANA M CECY [id number] 2019 Medicare [id number] Medicare [id number] Unknown [id number] Unknown [id number] Unknown [id number] Unknown [id number] Unknown [id number] Social History Date Type Detail Facility Start: 06-28-2022 End: 03-12-2024 Tobacco smoking status [facility] Unknown if ever smoked [facility] Start: 06-22-2020 Cigarettes [facility] Start: 1950 Sex Assigned At Female [facility] Start: 03-27-2023 End: 01-04-2025 Tobacco smoking status VAIS Ex-smoker [facility] Start: 09-24-2002 End: 09-24-2022 History of tobacco use Current smoker [facility] Start: 09-24-2002 End: 09-24-2022 History of tobacco use Cigarette Smoker [facility] Start: 03-27-2023 End: 01-03-2025 Cigarettes smoked current (pack per day) - Reported 1 [facility] Start: 03-27-2023 End: 03-17-2025 Tobacco use and exposure Smokeless tobacco non-user [facility] Start: 03-27-2023 End: 08-08-2025 Alcohol intake Current drinker of alcohol (finding) [facility] Start: 03-27-2023 Alcohol Comment 1-2 per day [facility] Start: 1950 Sex Assigned At Not on file [facility] Start: 04-17-2023 End: 01-03-2025 Tobacco use panel [facility] Start: 04-08-2017 PHQ2 Score 0 [facility] Start: 06-15-2023 Gender identity Identifies as female gender (finding) [facility] Start: 06-15-2023 Sexual orientation Heterosexual (fin christoph) [facility] Start: 09-24-2002 Tobacco smoking stat us VAIS Smokes tobacco daily [facility] NEGATED: Highlighted row [facility] Medical Equipment Procedure Code Equipment Code Equipment Origin al Text Equipment Identifier Dates ORIF, hip, using Gamma nail ([id number]) Orthopaedic bone screw, non-bioabsorbable, sterile ()[id number] FDA Start: 03-08-2024 ORIF, hip, using Gamma nail ([id number]) Orthopaedic bone screw, non-bioabsorbable, sterile ()[id number] FDA Start: 03-08-2024 ORIF, hip, using Gamma nail Femur nail ()[id number] FDA Start: 03-08-2024 ORIF, hip, using Gamma nail ([id number]) Orthopaedic bone screw, non-bioabsorbable, sterile ()[id number] FDA Start: 03-08-2024 Lithotripsy, ESWL STENT,URETERAL [...] Activity Abili ty With Assist of 1 [facility] Work Phone: 03-29-2024 Functional status Patient Activity Bedres t [facility] Work Phone: 03-28-2024 Functional status Standard Walker [facility] Work Phone: 03-19-2024 Functional status Chair [facility] Work Phone: 03-13-2024 Functional status Bedrest [facility] Work Phone: 03-11-2024 Functional status Ambulates;Chair [facility] Work Phone: 03-08-2024 Functional status Activity Ability Bedres t [facility] Work Phone: Mental Status Date Assessment Result Facility 03-29-2024 Cognitive function Voice/Name [facility] Work Phone: 03-19-2024 Cognitive function Voice/Name [facility] Work Phone: 03-19-2024 Cognitive function Person;Place;Time [facility] Work Phone: 03-18-2024 Cognitive function Voice/Name [facility] Work Phone: 03-15-2024 Cognitive function Appropriate;Cooperativ e [facility] Work Phone: 03-12-2024 Cognitive function Voice/Name [facility] Work Phone: 03-11-2024 Cognitive function Voice/Name [facility] Work Phone: 03-08-2024 Cognitive function Voice/Name [facility] Work Phone: 07-04-2022 Cognitive function Level Of Cons ciousness Drowsy;Sedated [facility] Work Phone: 07-04-2022 Cognitive function Voice/Name [facility] Work Phone: Clinical Notes 02-13-2019 to 09-23-2025 Pastora Murphy APRN.CN - 08/08/2025 8:59 AM EDTTelephone Encounter - Danita Sanchez MA - 08/04/2025 2:47 PM EDTTelephone Encounter - Danita Sanchez MA - 08/04/2025 2:47 PM EDTPatient Instructions Note Date & Type Note Facility 09-23-2025 Note HNO ID: [id number] Author: FELIX WU APRN.OFFBEARER Service: ? Author Type: Nurse Practitioner Type: Progress Notes Filed: 09/23/2025 15:16 Note Text: [facility] - FOLLOW UP EVALUATION Summer Worrell DO [address] [facility] [id number] Dear Summer Worrell DO: I had the [...] previous MRI of the lumbar spine from [facility] for review. 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 Goldman (more content not included)... [facility] 08-29-2025 Note HNO ID: [id number] Author: PASTORA MURPHY APRN.LILLIE Service: ? Author Type: Sample Driller Type: Progress Notes Filed: 08/29/2025 15:26 Note Text: Drawing Kiln Supervisor offered: Patient declines. Saloni Hicks is a [...] weeks to discuss results. Pastora Murphy APRN.CNM [facility] 08-08-2025 Note HNO ID: [id number] Author: PASTORA MURPHY APRN.LILLIE Service: ? Author Type: Sample Driller Type: Progress Notes Filed: 08/09/2025 17:25 Note Text: Drawing Kiln Supervisor offered: Patient declines. 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 Comments: Sexual Activity: Yes; No partner data on record; rarely Contraception: No contraception data on record PAST MEDICAL HISTORY Diagnosis Date Anxiety and depression 08/20/2017 Controlled type 2 diabetes mellitus without complication, without long-term current use of insulin ([facility]) 05/08/2017 Diabetic eye exam ([facility]) 07/07/2017 Last done: 06/26/2017 DM (diabetes mellitus) ([facility]) Essential hypertension 03/04/2018 GERD without esophagitis 08/20/2017 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 As applicable, any other physician, advance practice provider, medical student, or other health professional student that will be observing or involved in the sensitive examination for educational or training purposes was discussed with the Patient or Authorized Steel Hanger. The Patient or Authorized Steel Hanger has agreed to proceed with the sensitive examination. (Sensitive examination includes inspection and/or palpation of the breasts, pelvis, prostate and anorectal regions). EXAM: BP 120/76 Wt 141 lb 6.4 oz (64.1kg) GENERAL: pleasant, female in no apparent distress HEENT: Normocephalic and atraumatic NECK: Supple and full range of motion normal Bartholin's glands, urethra, [place]'s glands, no vulvar lesions, no cervical lesions, good vaginal support, normal appearing perineal body and perianal region. Admits to vulvar irritation on labia majora, minora, and vaginal. Slight aggulation of labia, no obvious lichenification, plaques or discoloration. Small amount of white vaginal discharge, no odor NEURO: alert and oriented x3,exam grossly non-focal EXTREMITIES: normal Assessment AND Plan Vulvar (more content not included)... [facility] 08-08-2025 History of Presen t illness Narrative Drawing Kiln Supervisor offered: Patient declines. 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 Comments: Sexual Activity: Yes; No partner data on record; rarely Contraception: No contraception data on record PAST MEDICAL HISTORY Diagnosis Date Anxiety and depression 08/20/2017 Controlled type 2 diabetes mellitus without complication, without long-term current use of insulin ([facility]) 05/08/2017 Diabetic eye exam ([facility]) 07/07/2017 Last done: 06/26/2017 DM (diabetes mellitus) ([facility]) Essential hypertension 03/04/2018 GERD without esophagitis 08/20/2017 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 Hypothyroid Hypothyroidism 05/08/2017 Smoker 08/20/2017 Started at age 16 up to 1 PPD TIA (transient ischemic attack) PAST SURGICAL HISTORY Procedure Laterality Date CATARACT EXT; EYEONICS IOL SYS 11/24/2007 both COLONOSCOPY 05/08/2008 repeat 10 yrs CORRECT BUNION,SIMPLE Bilateral 1997 left HAMMERTOE REVISION, ONE TOE 11/24/1975 right MENISCAL REPAIR SYS,CD,[id number] Right knee PROSTHESIS, BREAST, IMP Bilateral 11/24/1975 [...] discussed with the Patient or Patient's Authorized Steel Hanger. As applicable, any other physician, advance practice provider, medical student, or other health professional student that will be observing or involved in the sensitive examination for educational or training purposes was discussed with the Patient or Authorized Steel Hanger. The Patient or Authorized Steel Hanger has agreed to proceed with the sensitive examination. (Sensitive examination includes inspection and/or palpation of the breasts, pelvis, prostate and anorectal regions). EXAM: BP 120/76 Wt 141 lb 6.4 oz (64.1kg) GENERAL: pleasant, female in no apparent distress HEENT: Normocephalic and atraumatic NECK: Supple and full range of motion normal Bartholin's glands, urethra, [place]'s glands, no vulvar lesions, no cervical lesions, [...] Drug use: No documented in this encounter [facility] 08-04-2025 Telephone encounter Note LM for pt advising that appointment with Felix Wu on 08/05/2025 at 11a is cancelled as Felix is not the appropriate provider to follow up with and to call our scheduling dept to schedule with Dr. Mercado. [facility] 08-04-2025 Miscellaneous Notes LM for pt advising that appointment with Felix Wu on 08/05/2025 at 11a is cancelled as Felix is not the appropriate provider to follow up with and to call our scheduling dept to schedule with Dr. Mercado. documented in this encounter [facility] 07-27-2025 History of Presen t illness Narrative [...] PATIENT PRESENTS WITH AN IMPLANTABLE OR ATTACHED CONTOUR GRINDER: No RADIOLOGY DEPARTMENT: MR; Exam(s) Completed: Spine: Cervical spine. Anesthesia: No. Aromatherapy Administered: No PERIPHERAL IV DATA: Not applicable SIGNED BY: RT Lesley(R) July 27, 2025 12:07 PM documented in this encounter [facility] 07-27-2025 Note HNO ID: [id number] Author: JOANNE QUIROS RT(R) Service: ? Author [...] PATIENT PRESENTS WITH AN IMPLANTABLE OR ATTACHED CONTOUR GRINDER: No RADIOLOGY DEPARTMENT: MR; Exam(s) Completed: Spine: Cervical spine. Anesthesia: No. Aromatherapy Administered: No PERIPHERAL IV DATA: Not applicable SIGNED BY: Joanne Fields Janel Quiros, RT(R) July 27, 2025 12:07 PM [facility] 06-09-2025 Note HNO ID: [id number] Author: EVI PANTOJA CCC-SLP Service: ? Author Type: Speech Language Pathologist Type: Progress Notes Filed: 06/09/2025 11:17 Note Text: 06/09/2025 [facility] SPEECH DISCONTINUANCE OF [...] or scheduled additional follow-up appointments. BRYNN Boggs [facility] 05-03-2025 Note HNO ID: [id number] Author: EVI PANTOJA CCC-SLP Service: ? Author [...] by Name and Date of : Yes [facility] SPEECH EVALUATION PLAN OF CARE: Impression: Functional communication without limitations in: Speech, Voice Communication deficits identified: Dysarthria of speech, Voice disorder RECOMMENDATION: JUKEBOX CHECKER Recommendations: Outpatient Speech Therapy Results and Recommendations [...] Duration: Planned Treatment Interventions: Dysarthria/Apraxia Reduction Training (09790, 14230), Patient / Caregiver Education/ Training, Voice Training (09979), Speech Treatment (72668) Current Frequency: (4 visits within 4 weeks) Duration: 4 weeks PLAN FOR NEXT VISIT: Education and instruction in vocal hygience, strategies to promote speech clarity and vocal intensity at the conversational level Patient demonstrates good understanding of plan of care and treatment. The above goals and plan of care were discussed and agreed upon by patient/family. SUBJECTIVE: Saloni iHcks is a 75 year old female seen [...] Patient further reports poor STM and anomia. JUKEBOX CHECKER to obtain referral for cognitive-linguistic assessment.. Patient [...] Expressive and Receptive Language: Within Functional Limits (JUKEBOX CHECKER requested referral for cognitive-linguistic assessment as patient endorsing STM deficits and anomia) Fluency: No COGNITIVE-LINGUISTIC SKILLS Cognition Cognitive Status: Within Functional Limits For Current Session (JUKEBOX CHECKER requested referral for cogniti (more content not included)... [facility] 05-03-2025 History of Presen t illness Narrative Summary: SPEECH THERAPY DYSARTHRIA EVALUATION Episode Visit Count: 1 Therapist That Will Accept/Oversee The Plan Of Care: Evi Pantoja Start of Care Date: 05/03/25 Onset Date: 04/11/25 Plan of Care Certification Date: 05/03/25 Next Certification Due Date: 06/02/25 Patient Identified by Name and Date of : Yes [facility] SPEECH EVALUATION PLAN OF CARE: Impression: Functional communication without limitations in: Speech, Voice Communication deficits identified: Dysarthria of speech, Voice disorder RECOMMENDATION: JUKEBOX CHECKER Recommendations: Outpatient Speech Therapy Results and Recommendations [...] Duration: Planned Treatment Interventions: Dysarthria/Apraxia Reduction Training (07547, 38026), Patient / Caregiver Education/ Training, Voice Training (99526), Speech Treatment (73967) Current Frequency: (4 visits within 4 weeks) [...] Patient further reports poor STM and anomia. JUKEBOX CHECKER to obtain referral for cognitive-linguistic assessment.. Patient [...] Expressive and Receptive Language: Within Functional Limits (JUKEBOX CHECKER requested referral for cognitive-linguistic assessment as patient endorsing STM deficits and anomia) Fluency: No COGNITIVE-LINGUISTIC SKILLS Cognition Cognitive Status: Within Functional Limits For Current Session (JUKEBOX CHECKER requested referral for cognitive-linguistic assessment via secure [...] Education TREATMENT: Evaluation: Eval Speech Sound Production (93862) Current Home Program: JUKEBOX CHECKER provided patient with printed education per dysarthria management and physiology of spastic dysarthria. Billing: Eval Speech Sound Production (33967) Total time / Length of visit: 55 minutes Session Start Time : 1535 Session Stop Time : 1630 Evi Pantoja CCC-JUKEBOX CHECKER documented in this encounter [facility] 05-03-2025 Note Addended by: JENNIFER CUNNINGHAM on: 05/03/2025 03:48 PM Modules accepted: Orders [facility] 05-03-2025 Miscellaneous Notes Addended by: JENNIFER LOCKETT on: 05/03/2025 03:48 PM Modules accepted: Orders documented in this encounter [facility] 05-03-2025 History of Presen t illness Narrative Summary: OT evaluation Images from the original note were not included. Episode Visit Count: 1 Therapist That Will Accept/Oversee The Plan Of Care: Jennifer Lockett Start of Care Date: 05/03/25 Onset Date: 11/02/24 Plan of Care Certification Date: 05/03/25 Next Certification Due Date: 08/01/25 Patient Identified by Name and Date of : Yes [facility] OCCUPATIONAL THERAPY EVALUATION [...] home management tasks. 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) Hobbies / Interests: flipping homes/outside yardwork but [...] WITH LEVEL OF FUNCTION: Hand Strength R Cash Teller Position 1 (lbs): 25 lbs (31 post tx) L Cash Teller Position 1 (lbs): 33 lbs R Lateral [...] Treatment Interventions : Therapeutic Exercise, Manual Therapy, Self-Senior Living Management Evaluation Evaluation Therapeutic Exercise: 1: Review of HEP for red theraputty for telephone coin box collector / pinch strength as tolerated; Proprioceptive exercises [...] of neck to see if symptoms improved; telephone coin box collector strength improved; symptoms remained constant Skilled Intervention: Manual skills to improve joint mobility, ROM, and decrease pain. Utilized anatomy knowledge of the therapist, and assessment of patient's response to intervention. Self-Senior Living Management: 1: education for role of OT [...] Stop Time : 1530 Jennifer Pitsenbarger, OTR/L Program_ID:[id number] Access Code: [email or web address] URL: [email or web address] Date: 05-03-2025 Prepared By: Jennifer Lockett Program [...] - 10 reps documented in this encounter [facility] 05-03-2025 Note HNO ID: [id number] Author: JENNIFER LOCKETT OTR/L Service: ? Author Type: Occupational Therapist Type: Progress Notes Filed: 05/03/2025 15:45 Note Text: Summary: OT evaluation Episode Visit Count: 1 Therapist That Will Accept/Oversee The Plan Of Care: Jennifer Lockett Start of Care Date: 05/03/25 Onset Date: 11/02/24 Plan of Care Certification Date: 05/03/25 Next Certification Due Date: 08/01/25 Patient Identified by Name and Date of : Yes [facility] OCCUPATIONAL THERAPY EVALUATION [...] home management tasks. 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 [facility] 04-26-2025 Note HNO ID: [id number] Author: PASTORA MATA, PT Service: ? Author [...] established 04/26/25 Patient will report no falls. [place] in home exercise program including cardiovascular exercise. [...] of Visits Planned: 6 Planned Treatment Interventions: Self-half-way management (55222), Therapeutic activities (58235), Manual therapy (92256), Neuromuscular re-education (93592), Therapeutic exercise (40822), Gait Training (65193) PLAN FOR NEXT VISIT: pt. to transfer to [facility] Patient demonstrates fair understanding of plan of care and treatment. The above goals and plan of care were discussed and agreed upon by patient/family. Patient transferring care to: [facility] SUBJECTIVE: for neck and LBP. Pt. states [...] States/Identifies, Return Demonstration TREATMENT: PT Treatment Interventions: Self-Senior Living Management Evaluation Self-Senior Living Management: 1: substantial time listening to pt. concerns and frustration regarding repeated falls while needing to use an AD 2: substantail time spent discussing importance of use of AD 3: discussed at length importance of being mindful of completing movements safely Skilled Intervention: Skilled judg (more content not included)... [facility] 04-26-2025 History of Presen t illness [...] established 04/26/25 Patient will report no falls. [place] in home exercise program including cardiovascular exercise. [...] of Visits Planned: 6 Planned Treatment Interventions: Self-half-way management (19497), Therapeutic activities (81436), Manual therapy (44783), Neuromuscular re-education (09316), Therapeutic exercise (34324), Gait Training (94708) PLAN FOR NEXT VISIT: pt. to transfer to [facility] Patient demonstrates fair understanding of plan of care and treatment. The above goals and plan of care were discussed and agreed upon by patient/family. Patient transferring care to: [facility] SUBJECTIVE: for neck and LBP. Pt. states [...] States/Identifies, Return Demonstration TREATMENT: PT Treatment Interventions: Self-Senior Living Management Evaluation Self-Senior Living Management: 1: substantial time listening to pt. [...] Pastora Mata PT documented in this encounter [facility] 04-11-2025 Telephone encounter Note Called patient to schedule a New Brain Health Consult Appt. for memory loss per staff message and left a message to schedule it as soon as she can near her home location (if it were avaliable) . [facility] 04-11-2025 Miscellaneous Notes Called patient to schedule a New Brain Health Consult Appt. for memory loss per staff message and left a message to schedule it as soon as she can near her home location (if it were avaliable) . documented in this encounter [facility] 04-11-2025 Instructions Darren Mercado MD - 04/11/2025 [...] calling, ask which location is closest to [place]. Plan to return for a follow-up appointment in three months so we can review your MRI findings and your progress with therapy. Movement Disorders Medication Schedule: Medications If there are any concerns before your next visit, please call or you can send a message through [employer]. You can also now schedule and select appointments through [employer]. Darren Mercado MD documented in this encounter [facility] 04-11-2025 Note HNO ID: [id number] Author: DARREN MERCADO MD Service: ? Author Type: Physician Type: Progress Notes Filed: 07/28/2025 13:29 Note Text: [facility] - NEW PATIENT EVALUATION Recording using ambient [place] software for draft documentation of the visit was discussed with the patient/authorized bilingual inside sales representative; all questions welcomed and answered. Patient/authorized bilingual inside sales representative agreed to proceed Referring Provider: Denisha Steiner [address] [facility] [address] Primary Care Provider: Summer Worrell DO [address] [facility] [address] Dear Denisha Steiner: Thank you for referring [...] placements and tasks. She also reports a udc-vw-czeyl-year history of balance problems, describing an inability [...] her right hand, making it difficult to picker tender objects. She does not endorse numbness in [...] [facility] [place] [facility] and was prescribed more drops. 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 She does not have any children. She reports a family history of diabetes and heart issues in her father, who worked for the [employer], and glaucoma in her mother. Her brother has a history of diabetes, and her sister has a history of obesity and multiple surgeries. She does not endorse a family history of similar walking troubles. Past Diagnostic Results: Imaging - MRI lumbar spine: Conducted at [facility]. Movement Disorders Medications Schedule - as of [...] once daily. metFORMIN (more content not included)... [facility] 04-11-2025 History of Presen t illness Narrative [facility] - NEW PATIENT EVALUATION Recording using [employer] software for draft documentation of the visit was discussed with the patient/authorized bilingual inside sales representative; all questions welcomed and answered. Patient/authorized bilingual inside sales representative agreed to proceed Referring Provider: Denisha Steiner [address] [facility] [address] Primary Care Provider: Summer Worrell DO [address] [facility] [address] Dear Denisha Steiner: Thank you for referring [...] placements and tasks. She also reports a ghl-tm-pyjgt-year history of balance problems, describing an inability [...] her right hand, making it difficult to picker tender objects. She does not endorse numbness in [...] She went to the [facility] in [place] last week and was prescribed more drops. 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 She does not have any children. She reports a family history of diabetes and heart issues in her father, who worked for the [employer], and glaucoma in her mother. Her brother has a history of diabetes, and her sister has a history of obesity and multiple surgeries. She does not endorse a family history of similar walking troubles. Past Diagnostic Results: Imaging - MRI lumbar spine: Conducted at [facility]. Movement Disorders Medications Schedule - as of [...] complication, without long-term current use of insulin ([facility]) (05/08/2017), Diabetic eye exam ([facility]) (07/07/2017), DM (diabetes mellitus) ([facility]), Essential hypertension (03/04/2018), GERD without esophagitis (08/20/2017), Herpes simplex infection of genitourinary system (08/20/2017), Hypothyroid, Hypothyroidism (05/08/2017), Smoker (08/20/2017), and TIA (transient ischemic attack). has a past surgical history that includes meniscal repair sys,cd,[id number] (Right); correct bunion,simple (Bilateral, 1997); cataract ext; [...] Plantar: upgoing Left Plantar: upgoing Coordination: Right: Ezedew-lk-wysx normal. Finger tapping and hand movement impaired. Left: Mdvdmy-fs-gwns normal. Finger tapping and hand movement impaired. [...] in the right eye. Balance test at [facility]: Demonstrated inability to stand straight. Assessment and [...] previous MRI of the lumbar spine from [facility] for review. 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 Author Type: Physician Type: Progress Notes Filed: 03/17/2025 17:40 Note Text: Drawing Kiln Supervisor offered: Patient declines. Saloni is a 75 [...] discussed with the Patient or Patient's Authorized Steel Hanger. As applicable, any other physician, advance practice provider, medical student, or other health professional student that will be observing or involved in the sensitive examination for educational or training purposes was discussed with the Patient or Authorized Steel Hanger. The Patient or Authorized Steel Hanger has agreed to proceed with the sensitive examination. (Sensitive examination includes inspection and/or palpation of the breasts, pelvis, prostate and anorectal regions). EXAM: BP 110/78 Ht 5' 6.5 (1.69m) Wt 136 lb 6.4 oz (61.9kg) BMI 21.69 kg/(m2). GENERAL: pleasant, female in no apparent distress CHEST: Normal inspiratory effort PELVIC: external genitalia atrophic, normal Bartholin's glands, urethra, [place]'s glands, no vulvar lesions, no cervical lesions, [...] Medical Decision Making Level: 4 - Moderate [facility] 02-08-2025 Instructions Denisha Steiner PA-C - [...] with Dr. Tinoco documented in this encounter [facility] 02-08-2025 Note HNO ID: [id number] Author: DENISHA STEINER PA-C Service: ? Author Type: Physician Donor Technician Type: Progress Notes Filed: 02/08/2025 10:23 Note Text: [facility] Name: Saloni Hicks [...] follow-up with Dr. Tinoco in 3 months. Dneisha Steiner PA-C Encounter Diagnosis ICD-10-CM 1. Paresthesia [...] spinal specialist at an outside clinic at [facility] and was told she had significant degeneration [...] have some tem (more content not included)... [facility] 02-08-2025 History of Presen t illness Narrative Images from the original note were not included. [facility] Name: Saloni Hicks [...] spinal specialist at an outside clinic at [facility] and was told she had significant degeneration [...] Complication, Without Long-Term Current Use of Insulin ([facility]) Acquired Hypothyroidism Diabetic Eye Exam ([facility]) Gerd Without Esophagitis Herpes Simplex Infection of Genitourinary System Anxiety and Depression Smoker Iron Deficiency Anemia Encounter for Gynecological Examination Without Abnormal Finding Type 2 Diabetes Mellitus With Diabetic Neuropathy ([facility]) History of Tia (Transient Ischemic Attack) Vitamin D Deficiency Chronic Seasonal Allergic Rhinitis Osteopenia, Senile Carotid Stenosis, Asymptomatic, Bilateral Medicare Annual Wellness Visit, Subsequent Current Use of Proton Pump Inhibitor Essential Hypertension PAST MEDICAL HISTORY Diagnosis Date Anxiety and depression 08/20/2017 Controlled type 2 diabetes mellitus without complication, without long-term current use of insulin ([facility]) 05/08/2017 Diabetic eye exam ([facility]) 07/07/2017 Last done: 06/26/2017 DM (diabetes mellitus) ([facility]) Essential hypertension 03/04/2018 GERD without esophagitis [...] REVISION, ONE TOE 11/24/1975 right MENISCAL REPAIR SYS,DREW,[id number] Right knee PROSTHESIS, BREAST, IMP Bilateral 11/24/1975 [...] No M protein is identified. Staff Review ([facility]) Reviewed by Dr. Flor Pompa MD VITAMIN [...] No M protein is identified. Staff Review ([facility]) Reviewed by Dr. Flor Pompa MD KAPPA/RTAORE,FREE,SER Result Value Ref Range [place] Free, Serum 41.0 (H) 3.3 - 19.4 [...] procedures found. This note was dictated using [employer] speech recognition software and may contain some [...] which included preparing to see the patient, [id number] patient care, completing clinical documentation, obtaining and/or [...] study not recommended) documented in this encounter [facility] 02-08-2025 Note HNO ID: [id number] Author: PASTORA DONALDSON LPN Service: ? Author [...] Probability Score: 27 (Sleep study not recommended) [facility] 01-21-2025 Telephone encounter Note Advised patient of message below, verbalized understanding. Scheduled patient for 02/08/25 at 8a Serenity Baxter LPN January 21, 2025 1:25 PM [facility] 01-21-2025 Miscellaneous Notes Advised patient of message [...] Charley Barnett RN documented in this encounter [facility] 01-21-2025 Telephone encounter Note ----- Message from Denisha Steiner PA-C sent at 01/21/2025 12:55 PM EST ----- There are some areas of atrophy in the brain, will discuss further in person. Would recommend moving up follow up, new slot okay. Denisha Steiner PA-C [facility] 01-21-2025 Telephone encounter Note Patient calls and is asking about results from MRI testing. Patient states that she does not have appointment with provider until June and would like to know about results now. Please review and advise, Charley Barnett RN [facility] 01-12-2025 History of Presen t illness Narrative [...] PATIENT PRESENTS WITH AN IMPLANTABLE OR ATTACHED CONTOUR GRINDER: No RADIOLOGY DEPARTMENT: MR; Exam(s) Completed: Head: Routine Brain PERIPHERAL IV DATA: Not applicable SIGNED BY: RT Phyllis(Romain) January 12, 2025 2:05 PM documented in this encounter [facility] 01-12-2025 Note HNO ID: [id number] Author: DANITA SWAIN RT(R) Service: ? Author [...] PATIENT PRESENTS WITH AN IMPLANTABLE OR ATTACHED CONTOUR GRINDER: No RADIOLOGY DEPARTMENT: MR; Exam(s) Completed: Head: Routine Brain PERIPHERAL IV DATA: Not applicable SIGNED BY: RT Phyllis(R) January 12, 2025 2:05 PM [facility] 01-12-2025 Telephone encounter Note Pt is having MRI done. Pastora Donaldson LPN [facility] 01-12-2025 Miscellaneous Notes Pt is having MRI done. Pastora Donaldson LPN Patient calls to report that she had an MRI of her brain done at [facility] in May of 2023. Patient asking if she would still need to have the current ordered MRI completed on 01/12/2025. Patient has results if needs to drop them off she will. Please call her back at [phone]. Alpa Peralta RN documented in this encounter [facility] 01-11-2025 Telephone encounter Note Patient calls to report that she had an MRI of her brain done at [facility] in May of 2023. Patient asking if she would still need to have the current ordered MRI completed on 01/12/2025. Patient has results if needs to drop them off she will. Please call her back at [phone]. Alpa Peralta RN [facility] 01-04-2025 Instructions Denisha Steiner PA-C - 01/04/2025 1:23 PM EST MRI of the brain Skin biopsy Will gather other imaging from the [facility] to see what imaging has been done. Follow up after work up. documented in this encounter [facility] 01-04-2025 Note HNO ID: [id number] Author: DENISHA STEINER PA-C Service: ? Author Type: Physician Donor Technician Type: Progress Notes Filed: 01/04/2025 13:51 Note Text: [facility] Name: Saloni Costarp Age: [...] spinal specialist at an outside clinic at [facility] and was told she had significant degeneration [...] tingling all t (more content not included)... [facility] 01-04-2025 History of Presen t illness Narrative Images from the original note were not included. [facility] Name: Saloni Hicks [...] spinal specialist at an outside clinic at [facility] and was told she had significant degeneration [...] not a surgical candidate, this was at [facility]. 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 States she was very impressed with his physical therapist so she is scheduled appointments for herself. Review of Systems ACTIVE PROBLEM LIST Controlled Type 2 Diabetes Mellitus Without Complication, Without Long-Term Current Use of Insulin ([facility]) Acquired Hypothyroidism Diabetic Eye Exam ([facility]) Gerd Without Esophagitis Herpes Simplex Infection of Genitourinary System Anxiety and Depression Smoker Iron Deficiency Anemia Encounter for Gynecological Examination Without Abnormal Finding Type 2 Diabetes Mellitus With Diabetic Neuropathy ([facility]) History of Tia (Transient Ischemic Attack) Vitamin D Deficiency Chronic Seasonal Allergic Rhinitis Osteopenia, Senile Carotid Stenosis, Asymptomatic, Bilateral Medicare Annual Wellness Visit, Subsequent Current Use of Proton Pump Inhibitor Essential Hypertension PAST MEDICAL HISTORY Diagnosis Date Anxiety and depression 08/20/2017 Controlled type 2 diabetes mellitus without complication, without long-term current use of insulin ([facility]) 05/08/2017 Diabetic eye exam ([facility]) 07/07/2017 Last done: 06/26/2017 DM (diabetes mellitus) ([facility]) Essential hypertension 03/04/2018 GERD without esophagitis [...] REVISION, ONE TOE 11/24/1975 right MENISCAL REPAIR SYS,CD,[id number] Right knee PROSTHESIS, BREAST, IMP Bilateral 11/24/1975 [...] Plantar Flexion 5 5 Rest tremor: Slight rbmp-ux-ugdf head tremor Tone: Normal in all four [...] procedures found. This note was dictated using [employer] speech recognition software and may contain some [...] which included preparing to see the patient, migm-fh-qldp patient care, completing clinical documentation, obtaining and/or reviewing separately obtained history, performing a medically appropriate examination, counseling and educating the patient/family/caregiver, and ordering medications, tests, or procedures. documented in this encounter [facility] 03-26-2024 Discharge summary Note Date/Time March 26, 2024 2:28pm [facility] Medical Records Department [address] [place] [address] Transfer to Extended Care MR#: [id number] Acct: [id number] Name: SALONI HICKS Rep #: [id number] : 1950 74 From: Moise Glez MD PCP: Dr. Summer Worrell, DO Status:ADM IN Certification of patient admission REQUIRED AT TIME OF ADMISSION. I CERTIFY THAT POST-HOSPITAL ECF SERVICES ARE REQUIRED TO BE GIVEN ON AN IN-PATIENT BASIS BECAUSE OF THE ABOVE NAMED PATIENT'S NEED FOR RETIREMENT CARE ON A CONTINUING BASIS FOR THE [...] applicable): CC: Dr. Summer Worrell DO ~ [facility] Work Phone: 1(860) 185-336905-03-2024 Discharge summary Author Moise [facility] March 26, 2024 2:27pm Note Date/Time March 26, 2024 2:20pm [facility] Medical Records Department [address] [place] [address] Discharge Summary 03/26/24 1418 MR#: [id number] Acct: [id number] Name: SALONI HICKS Rep #: [id number] : 1950 74 From: Moise Glez MD PCP: Dr. Summer Worrell DO Status:ADM IN Location: [facility] TCU03-1 Providers Date of Admission: 03/11/24 Primary Care Physician: Dr. Summer Worrell, DO Consultations 03/17/24 17:21 Consult: Gastroenterology Routine Consulting Provider: [facility] Reason for Consult: Anemia, +stool guaiac. [...] 74.4 H, Lymph % (Auto) 13.4 L, Whitley % (Auto) 7.1, Eos % (Auto) 4.3, [...] can be placed): NonSkilled NH/[facility] 03/26/24 2043 <Electronically signed by Moise Glez MD> Cosigner Signature (if applicable): CC: Dr. Summer Worrell DO; Dr. Moise Glez MD~ Signed [facility] Work Phone: 1(517) 343-863605-02-2024 Progress note Author Alireza Lang [facility] March 25, 2024 11:42am Note Date/Time March 25, 2024 11:42a m [facility] Medical Records Department [address] [place] [address] Progress Note - Orthopedic 03/25/24 1139 MR#: [id number] Acct: [id number] Name: SALONI HICKS Rep #: [id number] : 1950 74 From: Alireza odom DO PCP: Dr. Summer Worrell DO Status:ADM IN Location: [facility] TCU-1 Subjective Subjective Patient seen and examined. [...] EDT Reading Location ID and State: [address] [facility] , Service support , Physical Exam Narrative [...] Cosigner Signature (if applicable): CC: ~ Signed [facility] Work Phone: 1(374) 630-862604-26-2024 Procedure [facility] 03-19-2024 Procedure [facility]04-25-2024 Consult note Author Jared Friend [facility] March 18, 2024 6:17pm Note Date/Time March 18, 2024 6:1 7pm [facility] Medical Records Department [address] [place] [address] Consultation - GI 03/18/24 1814 MR#: [id number] Acct: [id number] Name: SALONI HICKS Rep #: [id number] : 1950 74 From: Jared Friend DO PCP: Dr. Summer Worrell, DO Status:ADM IN Location: [facility] HPI Consult Data Date of [...] and chronic back pain who presents to [facility] ER complaining of Left hip pain after [...] I was consulted due to suspectedGI bleed. [facility] Medical History (Updated 03/11/24 @ 22:08 by [...] of 3. Charges/Coding Visit Charges Inpatient E&M: 31847 SNF Init L2 03/18/24 1815 <Electronically signed by Jared Wells DO> Cosigner Signature (if applicable): CC: Dr. Summer Worrell, DO~ Signed [facility] Work Phone: 1(467) 928-990804-24-2024 History and physical note Author Moise Glez [facility] March 17, 2024 7:43am Note Date/Time March 11, 2024 10: 09pm [facility] Medical Records Department [address] [place] [address] History & Physical Exam 03/11/24 2200 MR#: [id number] Acct: [id number] Name: SALONI HICKS Rep #: [id number] : 1950 74 From: Moise Glez MD PCP: Dr. Summer Worrell DO Status:ADM IN Location: [place] [address] HPI - General General Date of Admission: 03/11/24 Date of Service: 03/11/24 Chief Complaint: Here for rehabilitation. HPI Narrative 03/07/2024 SALONI HICKS, is a 74 Female who presents to [facility] ED with lower extremity injury. Left hip pain, Left leg pain after fall. Walking sidewalk, tripped/slipped, fell. Unable to stand or bear weight afterwards. No LOC, no head injury. Morphine, Zofran given. X-ray showed left hip fracture. 03/07/2024 Admit [facility]. Prepare for surgery. 03/08/2024 Dr. Lang [...] rehabilitation, strengthening, prior to discharge home alone. [facility] Medical History (Updated 03/11/24 @ 22:08 by [...] DO; Dr. Moise Glez MD ~* Signed [facility] Work Phone: 1(658) 677-603604-19-2024 Progress note Author Moise Glez [facility] March 12, 2024 1:26pm Note Date/Time March 12, 2024 12: 53pm [facility] Medical Records Department [address] [place] [address] [place] [address] Progress Note - Pharmacy 03/12/24 1249 MR#: [id number] Acct: [id number] Name: SALONI HICKS Rep #: [id number] : 1950 74 From: Lelo Koch PCP: Dr. Summer Worrell, DO Status:ADM IN Location: [place] [address] Documented by User: Lelo Koch 03/12/24 13:07 [...] 03/12/24 10:00 03/12/24 08:38 Fluticasone 0.05% 1 [place] Nasal.Sry NASAL Not Given DAILY JOLYNN Levothyroxine [...] by Moise Glez MD> CC: ~ Signed [facility] Work Phone: 1(739) 591-593604-18-2024 Discharge summary Author Yoel Bass [facility] March 11, 2024 11:36am Note Date/Time March 11, 2024 11: 36am [facility] Medical Records Department [address] [place] [address] Discharge Summary 03/11/24 1136 MR#: [id number] Acct: [id number] Name: SALONI HICKS Rep #: [id number] : 1950 74 From: Yoel Bass DO PCP: Dr. Summer Worrell DO Status:ADM IN Location: [facility] DQ274-6 Providers Date of Admission: 03/07/24 Primary Care [...] Diabetes mellitus type: type 2 Diabetes mellitus terminal system operator insulin use:without terminal system operator use Diabetes mellitus complication status: with other [...] in before D/C Order can be placed): [facility] Facility Charges/Coding Visit Charges Inpatient E&M: 85993 Disch Hosp >30min 03/11/24 1136 <Electronically signed by Yoel Bass DO> Cosigner Signature (if applicable): CC: Dr. Yoel Bass DO; Dr. Summer Worrell DO~ Signed [facility] Work Phone: 1(706) 224-459404-18-2024 Discharge summary Author Yoel Bass [facility] March 11, 2024 11:35am Note Date/Time March 11, 2024 11: 29am [facility] Medical Records Department [address] [place] [address] Transfer to [facility] MR#: [id number] Acct: [id number] Name: SALONI HICKS Rep #: [id number] : 1950 74 From: Yoel Bass DO PCP: Dr. Summer Worrell DO Status:ADM IN Certification of patient admission REQUIRED AT TIME OF ADMISSION. I CERTIFY THAT POST-HOSPITAL ECF SERVICES ARE REQUIRED TO BE GIVEN ON AN IN-PATIENT BASIS BECAUSE OF THE ABOVE NAMED PATIENT'S NEED FOR RETIREMENT CARE ON A CONTINUING BASIS FOR THE [...] Care Provider: Summer Worrell Consulting Providers: Arya aSpp; Alireza Lang Discharge Orders/Prescriptions Prescriptions: New acetaminophen [...] in before D/C Order can be placed): Halfway Facility (1) Closed fracture of left hip [...] Diabetes mellitus type: type 2 Diabetes mellitus terminal system operator insulin use: without mcc use Diabetes mellitus complication status: with other specified complication Qualified Code(s): E11.69 - Type 2 diabetes mellitus with other specified complication 03/11/24 1135 <Electronically signed by Yoel Bass DO> Cosigner Signature (if applicable): CC: Dr. Arya Sapp DO; Dr. Summer Worrell DO; Dr. Alireza Lang DO ~ [facility] Work Phone: 1(703) 387-216804-18-2024 Progress note Author Yoel Bass [facility] March 11, 2024 11:28am Note Date/Time March 11, 2024 7:3 5am [facility] Medical Records Department [address] [place] [address] Progress Note - Hospitalist 03/11/24 0734 MR#: [id number] Acct: [id number] Name: FABIOLASALONI AGUEDA Rep #: [id number] : 1950 74 From: Yoel Bass DO PCP: Dr. Summer Worrell DO Status:ADM IN [facility] Reason for Visit Reason for Visit: Diagnoses [...] with other specified complication Diabetes mellitus terminal system operator insulin use: without terminal system operator use Diabetes mellitus type: type 2 Qualified [...] Cosigner Signature (if applicable): CC: ~ Signed [facility] Work Phone: 1(685) 743-720004-17-2024 Progress note Author Alireza Lang [facility] March 10, 2024 5:47pm Note Date/Time March 10, 2024 5:4 7pm [facility] Medical Records Department [address] [place] [address] Progress Note - Orthopedic 03/10/24 1743 MR#: [id number] Acct: [id number] Name: SALONI HICKS Rep #: [id number] : 1950 74 From: Alireza odom DO PCP: Dr. Summer Worrell, Status:ADM IN Location: [place] [address]-1 Subjective Subjective Patient seen and examined. Denies [...] -Lovenox 40 mg subcu daily, CDs, CLYDE balderas - Case management - D/C planning. Pre-CERT pending for SNF. Stable for discharge to SNF once pre-CERT obtained from my standpoint. I will sign off at this time. Discharge instructions: Follow-up 2 weeks at [facility] with x-rays. Will plan for staple removal at that time. Continue Lovenox upon discharge x 4 weeks postoperatively. Please do not hesitate to call if any questions or concerns arise. Thank you for this consultation. 03/10/24 2256 <Electronically signed by Alireza Lang DO> Cosigner Signature (if applicable): CC: ~ Signed [facility] Work Phone: 1(701) 925-837604-17-2024 Progress note Author Yoel Bass [facility] March 10, 2024 11:40am Note Date/Time March 10, 2024 7:2 3am [facility] Medical Records Department [facility] [place] [address] Progress Note - Hospitalist 03/10/24 0721 MR#: [id number] Acct: [id number] Name: SALONI HICKS Rep #: [id number] : 1950 74 From: Yoel Bass DO PCP: Dr. Summer Worrell DO Status:ADM IN Location: [facility] GM088-2 Reason for Visit Reason for Visit: Diagnoses [...] 14:58 EDT Reading Location ID and State: [facility] / [place] , Service support , Physical Exam Const [...] with other specified complication Diabetes mellitus terminal system operator insulin use: without terminal system operator use Diabetes mellitus type: type 2 Qualified [...] w enoxaparin. Charges/Coding Visit Charges Inpatient E&M: 81903 Subs Hosp L1 03/10/24 1140 <Electronically signed by Yoel Bass DO> Cosigner Signature (if applicable): CC: ~ Signed [facility] Work Phone: 1(792) 457-344604-16-2024 Progress note Author Alireza Lang [facility] March 09, 2024 3:42pm Note Date/Time March 09, 2024 3:4 2pm [facility] Medical Records Department [address] [place] [address] Progress Note - Orthopedic 03/09/24 1538 MR#: [id number] Acct: [id number] Name: SALONI HICKS Rep #: [id number] : 1950 74 From: Alireza odom DO PCP: Dr. Summer Worrell, Status:ADM IN Location: [facility] PS940-6 Subjective Subjective Patient seen and examined. Reports [...] 14:58 EDT Reading Location ID and State: [facility] / [place] , Service support , Physical Exam Narrative [...] - Case management - D/C planning 03/09/24 1540 <Electronically signed by Alireza Lang DO> Cosigner Signature (if applicable): CC: ~ Signed [facility] Work Phone: 1(340) 508-881704-16-2024 Progress note Author Yoel Bass [facility] March 09, 2024 11:16am Note Date/Time March 09, 2024 7:1 9am [facility] Medical Records Department [address] [place] [address] Progress Note - Hospitalist 03/09/24 0716 MR#: [id number] Acct: [id number] Name: SALONI HICKSCHRISS Rep #: [id number] : 1950 74 From: Yoel Bass DO PCP: Dr. Summer Worrell DO Status:ADM IN Location: [place] [address]-1 Reason for Visit Reason for Visit: Diagnoses [...] with other specified complication Diabetes mellitus terminal system operator insulin use: without mcc use Diabetes mellitus type: type 2 Qualified [...] w enoxaparin. Charges/Coding Visit Charges Inpatient E&M: 06072 Subs Hosp L2 03/09/24 1116 <Electronically signed by Yoel Bass DO> Cosigner Signature (if applicable): CC: ~ Signed [facility] Work Phone: 1(647) 581-832604-15-2024 Progress note Author Yoel Bass [facility] March 08, 2024 2:00pm Note Date/Time March 08, 2024 7:5 1am [facility] Medical Records Department [address] [place] [address] Progress Note - Hospitalist 03/08/24 0741 MR#: [id number] Acct: [id number] Name: FABIOLASALONI AGUEDA Rep #: [id number] : 1950 74 From: Yoel Bass DO PCP: Dr. Summer Worrell, DO Status:ADM IN Location: [facility] LQ299-1 Reason for Visit Reason for Visit: Diagnoses [...] % (Auto) 60.3, Lymph % (Auto) 26.3, Whitley% (Auto) 7.1, Eos % (Auto) 5.4 H, [...] (Auto) 82.3 H, Lymph % (Auto)9.6 L, Whitley % (Auto) 7.2, Eos % (Auto) 0.3, [...] 20:21 EDT Reading Location ID and State: [employer] / [employer] , Service support , Femur X-Ray 03/07/24 18:41 IMPRESSION: Acute slightly distracted oblique fracture of the proximal shaft of the femur extending into the lesser trochanter. Electronically Signed: Guzman Ruiz MD at 20:20 EDT Reading Location ID and State: 7582 / [employer] , Service support , Chest X-Ray 03/07/24 19:02 IMPRESSION: Normal x-ray examination of the chest. Electronically Signed: Guzman Ruiz MD at 20:22 EDT Reading Location ID and State: 8875 / [employer] , Service support , Physical Exam [...] with other specified complication Diabetes mellitus terminal system operator insulin use: without terminal system operator use Diabetes mellitus type: type 2 Qualified [...] prophylaxis SCDs Charges/Coding Visit Charges Inpatient E&M: 25032 Subs Hosp L1 03/08/24 1400 <Electronically signed by Yoel Bass DO> Cosigner Signature (if applicable): CC: ~ Signed [facility] Work Phone: 1(160) 240-886504-15-2024 Procedure [facility] 03-08-2024 Consult note Author Alireza Lang [facility] March 08, 2024 7:55am Note Date/Time March 08, 2024 7:3 3am [facility] Medical Records Department [address] [place] [address] Consultation - Orthopedics 03/08/24731 MR#: [id number] Acct: [id number] Name: SALONI HICKS Rep #: [id number] : 1950 74 From: Alireza odom DO PCP: Dr. Summer Worrell, Status:ADM IN Location: [facility] PW408-5 HPI Consult Data Date of Consult: 03/08/24 HPI Narrative Reason for Consultation: Left hip fx HPI Narrative: SALONI HICKS, is a 74 F with past medical history significant for hypertension,hypothyroidism, DM2, peripheral neuropathy, frequent falls, spinal stenosis, history of TIA, RA, recurrent UTIs who presents to [facility] after a mechanical fall walking down steps from her house yesterday. She statesshe fell directly on her left hip. Denies any head injury or loss consciousness. She was brought to [facility] where x-rays revealed a displaced left subtrochanteric [...] vomiting, chest pain or shortness of breath. [facility] Medical History Alcohol use Anxiety and depression [...] % (Auto) 60.3, Lymph % (Auto) 26.3, Whitley% (Auto) 7.1, Eos % (Auto) 5.4 H, [...] (Auto) 82.3 H, Lymph % (Auto)9.6 L, Whitley % (Auto) 7.2, Eos % (Auto) 0.3, [...] 20:21 EDT Reading Location ID and State: [employer] , Service support , Femur X-Ray 03/07/24 18:41 IMPRESSION: Acute slightly distracted oblique fracture of the proximal shaft of the femur extending into the lesser trochanter. Electronically Signed: Guzman Ruiz MD at 20:20 EDT Reading Location ID and State: [employer] / [employer] , Service support , Chest X-Ray 03/07/24 19:02 IMPRESSION: Normal x-ray examination of the chest. Electronically Signed: Guzman Ruiz MD at 20:22 EDT Reading Location ID and State: [employer] , Service support , Assessment & [...] available Thank you for this consultation. 03/08/24 9371 <Electronically signed by Alireza Lang DO> Cosigner Signature (if applicable): CC: Dr. Arya Sapp DO; Dr. Summer Worrell DO; Dr. Alireza Lang DO~ Signed [facility] Work Phone: 1([phone]) 992-605704-15-2024 History and physical note Author Arya Ayala [facility] March 08, 2024 5:25am Note Date/Time March 07, 2024 8:1 0pm [facility] Medical Records Department [address] [place] [address] H&P Exam - Hospitalist 03/07/241948 MR#: [id number] Acct: [id number] Name: SALONI HICKSRODERICK Rep #: [id number] : 1950 74 From: Arya Del Rio DO PCP: Dr. Summer Worrell DO Status:ADM IN [facility] HPI - General General Date of Admission: [...] and chronic back pain who presents to [facility] ER complaining of Left hip pain after [...] expected to be greater than 48 hours. [facility] Medical History Alcohol use Anxiety and depression [...] % (Auto) 60.3, Lymph % (Auto) 26.3, Whitley% (Auto) 7.1, Eos % (Auto) 5.4 H, Baso % (Auto) 0.6, Absolute Neuts (auto) 5.2, Absolute Lymphs (auto) 2.27, Nucleated RBC % 0 Imaging [facility] Imaging Services [address] [facility] [address] Pelvis 1 or 2 Views MR#: [id number] Acct: [id number] Name: SALONI HICKS Rep #: [id number] : 1950 F 74 From: Guzman Ruiz MD PCP: Dr. Summer Worrell, DO Status: REG ER Study: Pelvis 1 or 2 Views Date of Exam: 03/07/24 Exam# [id number] Ordering Dr: Zafar Zimmer MD STUDY: X-RAY [...] Zimmer MD; Dr. Summer Worrell, DO ~ Commissary Representative: Signed Assessment & Plan Assessment/Plan (1) Closed [...] Diabetes mellitus type: type 2 Diabetes mellitus group home insulin use: without mcc use Diabetes mellitus complication status: with other specified complication Qualified Code(s): E11.69 - Type 2 diabetes mellitus with other specified complication PLAN: Plan 1. Left Hip Fracture after Mechanical Fall - Admit to general medical floor. This patient has no absolute contraindications to medically-necessary medium-risk orthopedic surgery. Place Patel and also place LLE in 5# Garcia's traction. Give Tylenol prn for tamr-do-bkxkupgo (level 1-5/10) pain or fever. Give Morphine [...] 55 minutes. Charges/Coding Visit Charges Inpatient E&M: 31168 Init Hosp L2 03/08/24 0525 <Electronically signed by Arya Sapp DO> Cosigner Signature (if applicable): CC: Dr. Arya Sapp DO; Dr. Summer Worrell DO~ Signed [facility] Work Phone: 1(702) 854-172704-14-2024 Discharge summary Author Zafar Zimmer [facility] March 07, 2024 8:06pm Note Date/Time March 07, 2024 6:4 1pm [facility] Medical Records Department [address] [place] [address] Emergency Department Summary 03/07/24 MR#: [id number] Acct: [id number] Name: SALONI HICKS Rep #: [id number] : 1950 74 From: Zafar Zimmer MD [...] or loss of consciousness, or other injury. [facility] Medical History Alcohol use Anxiety [...] % (Auto) 60.3 Lymph % (Auto) 26.3 Whitley % (Auto) 7.1 Eos % (Auto) 5.4 [...] w/another healthcare provider: Hospitalist (Dr. Rutherford) and Occupational Therapy Supervisor (Dr. Lang, orthopedics) Discharge Plan Dx/Rx/DC Orders Clinical Impression: Diabetes, Fall, Closed fracture of left hip Disposition Disposition: Acute Care Hospital [facility] What to do if you have Problems For any increased pain, shortness of breath, bleeding, nausea or vomiting, chestpain, or any unexpected problems, contact your Primary Care Provider. Call [facility] ([phone]) or report to the closest Emergency Room. Call 911 if necessary. 03/07/242005 <Electronically signed by Zafar Zimmer MD> Cosigner Signature (if applicable): CC: Dr. Summer Worrell, ~ Signed [facility] Work Phone: 1(724) 733-425504-14-2024 Discharge summary Author Zafar Zimmer [facility] March 07, 2024 8:06pm Note Date/Time March 07, 2024 6:4 1pm [facility] Medical Records Department [address] [place] [address] Emergency Department Summary 03/07/24 MR#: [id number] Acct: [id number] Name: SALONI HICKS Rep #: [id number] : 1950 74 From: Zafar Zimmer MD [...] or loss of consciousness, or other injury. [facility] Medical History Alcohol use Anxiety and depression [...] % (Auto) 60.3 Lymph % (Auto) 26.3 Whitley % (Auto) 7.1 Eos % (Auto) 5.4 [...] w/another healthcare provider: Hospitalist (Dr. Rutherford) and Occupational Therapy Supervisor (Dr. Lang, orthopedics) Discharge Plan Dx/Rx/DC Orders Clinical Impression: Diabetes, Fall, Closed fracture of left hip Disposition Disposition: Acute Care Hospital [facility] What to do if you have Problems For any increased pain, shortness of breath, bleeding, nausea or vomiting, chestpain, or any unexpected problems, contact your Primary Care Provider. Call [facility] ([phone]) or report to the closest Emergency Room. Call 911 if necessary. 03/07/242005 <Electronically signed by Zafar Zimmer MD> Cosigner Signature (if applicable): CC: Dr. Summer Worrell, DO ~ Signed [facility] Work Phone: 1(862) 715-647408-23-2023 History of Present illness Narrative* Feliberto Barone [...] Alvarez.T Feliberto Barone MD documented in this encounterM[facility]08-22-[facility]23 History of Present illness Narrative* Analisa Holden [...] complication, without long-term current use of insulin ([facility]) 05/08/2017 Diabetic eye exam ([facility]) 07/07/2017 Last done: 06/26/2017 DM (diabetes mellitus) ([facility]) Essential hypertension 03/04/2018 GERD without esophagitis 08/20/2017 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 Hypothyroid Hypothyroidism 05/08/2017 Smoker 08/20/2017 Started at age 16 up to 1 PPD TIA (transient ischemic attack) PAST SURGICAL HISTORY Procedure Laterality Date CATARACT EXT; EYEONICS IOL SYS 11/24/2007 both COLONOSCOPY 05/08/2008 repeat 10 yrs CORRECT BUNION,SIMPLE Bilateral 1997 left HAMMERTOE REVISION, ONE TOE 11/24/1975 right MENISCAL REPAIR SYS,[id number] Right knee PROSTHESIS, BREAST, IMP Bilateral 11/24/1975 [...] Abs Lymph 1.00 - 4.00 k/uL 1.11 Whitley% % 7.3 Abs Whitley <0.87 k/uL 0.91 (H) Eosin% % 2.9 [...] podiatry PT - wants to go to [facility] Follow-up in 3 months or earlier if necessary. I spent a total of 60 minutes on the date of the service which included preparing to see the patient, [id number] patient care, completing clinical documentation, obtaining and/or [...] of clinic note to: 1. Saloni Silva [facility] [id number] [address] [facility] [address] 2. Summer Kulkarni [facility] [address] [facility] [address] documented in this encounterMiddletown Hospital08-16-2023 Discharge summary Author Janel Sweet [facility] July 09, 2023 3:16pm Note Date/Time July 09, 2023 3: 16pm [facility] Physical Therapy [facility] [address] [place] [address]. [address] [place] [address] / REHABILITATION SERVICES DISCHARGE SUMMARY MR#: [id number] Acct: [id number] Name: SALONI HICKS Rep #: [id number] : 1950 73 From: Janel Goel Referring [...] CC: Dr. Summer Worrell, DO ~ Signed [facility] Work Phone: [phone]) 702-798405-05-2023 Miscellaneous Notes* Telephone Encounter - Padmini Emmanuel [...] Pharmacy Information Pharmacy Address Telephone [id number] [address] [place] [address] Padmini Emmanuel RN * Telephone Encounter - Lexi Benjamin APRN.CNP - 03/28/2023 12:02 PM EDT Please let the patient know that her vaginal culture show that she does have a yeast infection. I have sent Diflucan in with 3 doses. 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 History Comments: Sexual Activity: No sexual activity data on record; No partner data on record Contraception: No contraception data on record PAST MEDICAL HISTORY Diagnosis Date Anxiety and depression 08/20/2017 Controlled type 2 diabetes mellitus without complication, without long-term current use of insulin ([facility]) 05/08/2017 Diabetic eye exam ([facility]) 07/07/2017 Last done: 06/26/2017 DM (diabetes mellitus) ([facility]) Essential hypertension 03/04/2018 GERD without esophagitis 08/20/2017 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 Hypothyroid Hypothyroidism 05/08/2017 Smoker 08/20/2017 Started at age 16 up to 1 PPD TIA (transient ischemic attack) PAST SURGICAL HISTORY Procedure Laterality Date CATARACT EXT; EYEONICS IOL SYS 11/24/2007 both COLONOSCOPY 05/08/2008 repeat 10 yrs CORRECT BUNION,SIMPLE Bilateral 1997 left HAMMERTOE REVISION, ONE TOE 11/24/1975 right MENISCAL REPAIR SYS,,[id number] Right knee PROSTHESIS, BREAST, IMP Bilateral 11/24/1975 [...] external genitalia normal, normal Bartholin's glands, urethra, [place]'s glands, no vulvar lesions, normal appearing perineal [...] Level: 3 - Low documented in this encounterMiddletown Hospital03-23-2019 History of Past illness Narrative* Problem Noted Date Resolved Date Accidental ingestion of caustic alkali 9 02/13/2019 documented as of this encounter (statuses as of 03/27/2023) [facility] of Past illness Narrative* Problem Noted Date Resolved Date Accidental ingestion of caustic alkali 9 02/13/2019 documented as of this encounter (statuses as of 03/28/2023) [facility] History of Past illness Narrative* Problem Noted Date Diagnosed Date Resolved Date Accidental ingestion of caustic alkali 02/13/2019 02/13/2019 documented as of this encounter (statuses as of 07/15/2023) [facility] History of Past illness Narrative* Problem Noted Date Diagnosed Date Resolved Date Accidental ingestion of caustic alkali 02/13/2019 02/13/2019 documented as of this encounter (statuses as of 07/17/2023) [facility] HospitalConsult note Author Iesha Escalera [facility] March 11, 2024 1:17pm Note Date/Time March 11, 2024 1:1 7pm [facility] Medical Records Department [address] [place] [address] Counseling Note - Pharmacy 03/11/24 1317 MR#: [id number] Acct: [id number] Name: SALONI HICKS Rep #: [id number] : 1950 74 From: Iesha Escalera PCP: Dr. Summer Worrell, DO Status:ADM IN Y [id number] [place] Med Reconciliation Pharmacy Service has performed discharge [...] Signature (if applicable): Date CC: ~ Signed [facility] Work Phone: Evaluation noteNo assessment information available [facility] Work Phone: Evaluation note* Diagnosis Vaginal irritation- Primary Unspecified noninflammatory disorder of vagina [facility]* Diagnosis Onset Date Resolution Status Atrophic vaginitis acute Dermatitis acute [facility] Work Phone: Evaluation note* Diagnosis Gait instability- Primary Abnormality of gait [facility]* Diagnosis Gait instability Abnormality of gait [facility] Diagnosis Onset Date Resolution Status Atrophic vaginitis acute Vaginal discharge acute [facility] Work Phone: Evaluation note* Diagnosis Onset Date Resolution Status Atrophic vaginitis acute Vaginal discharge acute Atrophic vaginitis acute Lichen sclerosus acute [facility] Work Phone: Evaluation note* Diagnosis Onset Date Resolution Status Atrophic vaginitis acute Vaginal discharge acute Atrophic vaginitis acute Lichen sclerosus acute DDD (degenerative disc disease), lumbar acute Spinal stenosis in cervical region acute Spinal stenosis of lumbar region at multiple levels acute [facility] Work Phone: Evaluation note* Diagnosis Onset Date Resolution Status Atrophic vaginitis acute Lichen sclerosus acute DDD (degenerative disc disease), lumbar acute Spinal stenosis in cervical region acute Spinal stenosis of lumbar region at multiple levels acute Primary localized osteoarthritis of hips, bilateral acute [facility] Work Phone: Evaluation note* Diagnosis Onset Date Resolution Status DDD (degenerative disc disease), lumbar acute Spinal stenosis in cervical region acute Spinal stenosis of lumbar region at multiple levels acute Primary localized osteoarthritis of hips, bilateral acute [facility] Work Phone: Evaluation note* Diagnosis Onset Date Resolution Status Primary localized osteoarthritis of hips, bilateral acute Closed fracture of left hip acute Diabetes acute Fall acute [facility] Work Phone: Evaluation note* Diagnosis Onset Date Resolution Status Primary localized osteoarthritis of hips, bilateral acute Closed fracture of left hip acute Diabetes acute Fall acute Peripheral neuropathy acute [facility] Work Phone: Evaluation note* Diagnosis Onset Date [...] (herpes simplex virus) infection acute Hypothyroidism acute [facility] Work Phone: Evaluation note* Diagnosis Onset Date Resolution Status Closed fracture of left hip resolved Fall resolved Allergic rhinitis acute Debility acute Depression acute Diabetes mellitus type 2 in nonobese acute Essential (primary) hypertension acute GERD (gastroesophageal reflux disease) acute Hypothyroidism acute Closed fracture of left hip resolved Fall resolved [facility] Work Phone: Evaluation note* Diagnosis Paresthesia of skin- Primary Disturbance of skin sensation Cerebral infarction, unspecified mechanism (HCC) Generalized weakness Other malaise and fatigue Frequent falls Personal history of fall documented in this encounter [facility]* Diagnosis Cerebral infarction, unspecified mechanism (HCC) Frequent falls Personal history of fall documented in this encounter [facility]* Diagnosis Frequent falls- Primary Personal history of fall Paresthesia of skin Disturbance of skin sensation Generalized weakness Other malaise and fatigue NPH (normal pressure hydrocephalus) (HCC) Idiopathic normal pressure hydrocephalus (INPH) Memory loss documented in this encounter [facility]* Diagnosis Cervical spondylosis with myelopathy- Primary Neuropathy Mononeuritis of unspecified site Radiculopathy, lumbar region Thoracic or lumbosacral neuritis or radiculitis, unspecified Multifactorial gait disorder Abnormality of gait Spastic dysarthria Dysarthria Spinal stenosis of cervical region Spinal stenosis in cervical region Decline in verbal memory Unspecified ptosis of right eyelid History of falling Personal history of fall documented in this encounter [facility]* Diagnosis 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- Primary Cervical spondylosis with myelopathy Neuropathy Mononeuritis of unspecified site documented in this encounter [facility]* Diagnosis Spastic dysarthria Dysarthria documented in this encounter [facility]* Diagnosis Radiculopathy, cervical region- Primary Brachial neuritis or radiculitis nos Cervical spondylosis with myelopathy Neuropathy Mononeuritis of unspecified site Radiculopathy, lumbar region Thoracic or lumbosacral neuritis or radiculitis, unspecified Multifactorial gait disorder Abnormality of gait documented in this encounter [facility]* Diagnosis Spinal stenosis of cervical region Spinal stenosis in cervical region documented in this encounter [facility]* Diagnosis Vulvar irritation- Primary Other specified noninflammatory disorder of vulva and perineum Vulvar burning Unspecified symptom associated with female genital organs Postmenopausal Asymptomatic postmenopausal status (age-related) (natural) Vaginal atrophy Postmenopausal atrophic vaginitis Vaginal discharge Leukorrhea, not specified as infective documented in this encounter [facility] HospitalHistory and physical note Author Jared Wells [facility] March 19, 2024 12:16pm Note Date/Time March 19, 2024 12: 16pm [facility] Medical Records Department [address] [place] [address] History & Physical Exam 03/19/24 1215 MR#: [id number] Acct: [id number] Name: SALONI HICKSCHRISS Rep #: [id number] : 1950 74 From: Jared Wells DO PCP: Dr. Summer Worrell, Status:[facility] Location: [place] [address] History and Physical Date of Admission: 03/19/24 [...] and chronic back pain who presents to [facility] ER complaining of Left hip pain after [...] was consulted due to suspected GI bleed. [facility] Medical History (Updated 03/11/24 @ 22:08 by [...] Summer Worrell, ; Jared Wells DO~ Signed [facility] Work Phone: Reason for visit Narrative* Outpatient Procedure (Routine) - Closed Specialty Diagnoses / Procedures Referred By Sravanthi goel Referred To [facility] Diagnoses Gait instability Procedures EMG(NEURO/NI) NERVE CONDUCTION STUDIES 9-10 STUDIES Adina, [place] [address] [place] [address] [facility] [address] [place] [address] Referral ID Status Reason Start Date Expiration Date V isits Requested Visits Authorized [id number] Closed Auto-Generate d Referral 07/15/2023 07/15/2024 1 1 [facility] for visit Narrative* MRI/CT (Routine) - Closed Specialty Diagnoses / Procedures Referred By Sravanthi goel Referred To Contact [facility] Diagnoses Cerebral infarction, unspecified mechanism (HCC) Frequent falls Procedures MRI BRAIN WO IVCON MRI BRAIN BRAIN STEM W/O CONTRAST MATERIAL Denisha Steiner PA-C [address] [place] [address] Phone: tel: fax: [place] [address] Referral ID Status Reason Start Date Expiration Date V isits Requested Visits Authorized [id number] Closed Auto-Generate d Referral 01/12/2025 03/13/2025 1 1 [facility] N[facility]* MRI/CT (Routine) - Closed Specialty Diagnoses / Procedures Referred By Contac t Referred To Contact [facility] Diagnoses Spinal stenosis of cervical region Procedures MRI CERVICAL SPINE WO IVCON MRI SPINAL CANAL CERVICAL W/O CONTRAST MATRL Darren Mercado MD [address] [place] [address] Phone: tel: fax: [place] [address] Referral ID Status Reason Start Date Expiration Date V isits Requested Visits Authorized [id number] Closed Auto-Generate d Referral 07/27/2025 09/25/2025 1 1 [facility] Family History No Family History Records Found Relationship Condition Age at Onset Recorded Date/T gian mother Malignant neoplasm Unknown father Diabetes mellitus Unknown Cardiac disease Unknown sister Diabetes mellitus Unknown Advance Directives No Advanced Directives Records Found Advance Directive Response Recorded Date/ Time Living Will Yes June 28, 2022 8:52am Power of Telephone Messenger Yes June 28 8:52am Advance Directive Response Recorded Date/ Time Living Will Yes June 28, 2022 8:52am Power of Telephone Messenger Yes June 28 8:52am Name of Medical Power of Telephone Messenger LYN Boogie June 28, 2022 8:52am Advance Directive Response Recorded Date/ Time Living Will Yes June 28, 2022 7:52am Power of Telephone Messenger Yes June 28 7:52am Advance Directive Response Recorded Date/ Time Name of Medical Power of Telephone Messenger Christiano April 17, 2023 1:39pm Living Will Yes April 17, 2023 1 :39pm Power of Telephone Messenger Yes April 17, 2023 1:39pm Advance Directive Response Recorded Date/ Time Living Will Yes July 23 9:27am Power of Telephone Messenger Yes July 23, 023 9:27am Name of Medical Power of Telephone Messenger Christiano April 17, 2023 1:39pm Advance Directive Response Recorded Date/ Time Living Will Yes July 23 9:27am Power of Telephone Messenger Yes July 23, 023 9:27am Advance Directive Response Recorded Date/ Time Living Will Yes July 23 8:27am Power of Telephone Messenger Yes July 23 023 8:27am Advance Directive Response Recorded Date/ Time Name of Medical Power of Telephone Messenger . January 27, 2024 10:59pm Living Will Yes January 27, 2024 10:59pm Power of Telephone Messenger Yes January 26 10:59pm Advance Directive Response Recorded Date/ Time Name of Medical Power of Telephone Messenger . January 27, 2024 10:59pm Name of Medical Power of Telephone Messenger sister christiano morgan March 07, 2024 6:31pm Living Will Yes March 07, 2024 6:31pm Power of Telephone Messenger Yes March 07 6:31pm Advance Directive Response Recorded Date/ Time Name of Medical Power of Telephone Messenger . January 27, 2024 10:59pm Name of Medical Power of Telephone Messenger SISTER March 07, 2024 10:36pm Living Will Yes March 07, 2024 10:36pm Power of Telephone Messenger Yes March 07 10:36pm Advance Directive Response Recorded Date/ Time Name of Medical Power of Telephone Messenger . January 27, 2024 10:59pm Name of Medical Power of Telephone Messenger SISTER March 07, 2024 10:36pm Name of Medical Power of Telephone Messenger Roxane ANGEL OY FRIEND March 11, 2024 1:51pm Living Will Yes March 11, 2024 1:51pm Power of Telephone Messenger Yes March 11 1:51pm Advance Directive Response Recorded Date/ Time Name of Medical Power of Telephone Messenger . January 27, 2024 10:59pm Name of Medical Power of Telephone Messenger SISTER March 07, 2024 10:36pm Name of Medical Power of Telephone Messenger Lucas Mendez March 16, 2024 5:59pm Living Will Yes March 16, 2024 5:59pm Power of Telephone Messenger Yes March 16 5:59pm Chief Complaint and [...] Referred By Sravanthi goel Referred To [facility] Diagnoses Gait instability Procedures CONSULT TO PHYSICAL THERAPY PHYSICAL THERAPY EVALUATION HIGH COMPLEX [address] [place] [address] [place] [address] [facility] [address] [address] Referral ID Status Reason Start Date Expiration Date Visits Requested Visits Authorized [id number] Pending Review Auto-Generat ed Referral 07/15/2023 07/14/2024 1 1 Specialty Diagnoses / Procedures Referred By Sravanthi goel Referred To [facility] [place] Diagnoses Gait instability Procedures EMG(NEURO/NI) NERVE CONDUCTION STUDIES 9-[place] [address] [place] [address] [facility] [address] [place] [id number] Referral ID Status Reason Start Date Expiration Date Visits Requested Visits Authorized [id number] Authorized Auto-Generat ed Referral 07/15/2023 07/15/2024 1 [...] or prosecute any alcohol or drug abuse patient.[facility] HospitalIn the event this information is protected by the Federal Confidentiality of Alcohol and Drug Abuse Patient Records regulations: The Federal rules restrict any use of the information to criminally investigate or prosecute any alcohol or drug abuse patient.[facility] HospitalIn the event this information is protected by the Federal Confidentiality of Alcohol and Drug Abuse Patient Records regulations: The Federal rules restrict any use of the information to criminally investigate or prosecute any alcohol or drug abuse patient.[facility] HospitalIn the event this information is protected by the Federal Confidentiality of Alcohol and Drug Abuse Patient Records regulations: The Federal rules restrict any use of the information to criminally investigate or prosecute any alcohol or drug abuse patient.[facility] HospitalIn the event this information is protected by the Federal Confidentiality of Alcohol and Drug Abuse Patient Records regulations: The Federal rules restrict any use of the information to criminally investigate or prosecute any alcohol or drug abuse patient.[facility] HospitalIn the event this information is protected by the Federal Confidentiality of Alcohol and Drug Abuse Patient Records regulations: The Federal rules restrict any use of the information to criminally investigate or prosecute any alcohol or drug abuse patient.[facility] HospitalIn the event this information is protected by the Federal Confidentiality of Alcohol and Drug Abuse Patient Records regulations: The Federal rules restrict any use of the information to criminally investigate or prosecute any alcohol or drug abuse patient.[facility] HospitalIn the event this information is protected by the Federal Confidentiality of Alcohol and Drug Abuse Patient Records regulations: The Federal rules restrict any use of the information to criminally investigate or prosecute any alcohol or drug abuse patient.[facility] HospitalIn the event this information is protected by the Federal Confidentiality of Alcohol and Drug Abuse Patient Records regulations: The Federal rules restrict any use of the information to criminally investigate or prosecute any alcohol or drug abuse patient.[facility] HospitalIn the event this information is protected by the Federal Confidentiality of Alcohol and Drug Abuse Patient Records regulations: The Federal rules restrict any use of the information to criminally investigate or prosecute any alcohol or drug abuse patient.[facility] HospitalIn the event this information is protected by the Federal Confidentiality of Alcohol and Drug Abuse Patient Records regulations: The Federal rules restrict any use of the information to criminally investigate or prosecute any alcohol or drug abuse patient.[facility] HospitalIn the event this information is protected by the Federal Confidentiality of Alcohol and Drug Abuse Patient Records regulations: The Federal rules restrict any use of the information to criminally investigate or prosecute any alcohol or drug abuse patient.[facility] HospitalIn the event this information is protected by the Federal Confidentiality of Alcohol and Drug Abuse Patient Records regulations: The Federal rules restrict any use of the information to criminally investigate or prosecute any alcohol or drug abuse patient.[facility] HospitalIn the event this information is protected by the Federal Confidentiality of Alcohol and Drug Abuse Patient Records regulations: The Federal rules restrict any use of the information to criminally investigate or prosecute any alcohol or drug abuse patient.[facility] HospitalIn the event this information is protected by the Federal Confidentiality of Alcohol and Drug Abuse Patient Records regulations: The Federal rules restrict any use of the information to criminally investigate or prosecute any alcohol or drug abuse patient.[facility] HospitalIn the event this information is protected by the Federal Confidentiality of Alcohol and Drug Abuse Patient Records regulations: The Federal rules restrict any use of the information to criminally investigate or prosecute any alcohol or drug abuse patient.[facility] HospitalIn the event this information is protected by the Federal Confidentiality of Alcohol and Drug Abuse Patient Records regulations: The Federal rules restrict any use of the information to criminally investigate or prosecute any alcohol or drug abuse patient.[facility] the event this information is protected by the Federal Confidentiality of Alcohol and Drug Abuse Patient Records regulations: The Federal rules restrict any use of the information to criminally investigate or prosecute any alcohol or drug abuse patient.[facility] Reason for Visit (unrecogniz ed section and [...] hydrocephalus) (HCC) Procedures CONSULT TO NEUROSURGERY OFFICE/OUTPATIENT [facility] 60 MINUTES Denisha Steiner PA-C [address] [place] [address] Phone: tel: fax: Referral ID Status Reason Start Date Expiration Date V isits Requested Visits Authorized [id number] Closed PCP Requested Referral 02/08/2025 02/08/2026 1 1 Reason Comments Appointment Called patient to mo lorene [facility] [employer] [facility] Consult Appt. for memory loss per staff message and left a message to schedule it as soon as she can near her home location (if it were avaliable) . Reason Comments OT EVAL Specialty Diagnoses / Procedures Referred By Contac t Referred To Contact OCCUPATIONAL THERAPY Diagnoses Cervical spondylosis with myelopathy Neuropathy Radiculopathy, lumbar region Procedures CONSULT TO [facility] MA[facility]GER OCCUPATIONAL THERAPY EVAL HIGH COMPLEX 60 MINS Darren Mercado MD [address] [place] [address] Phone: tel: fax: Jennifer Lockett OT/Shira, OTD [address] [place] [address] Phone: tel: Referral ID Status Reason Start Date Expiration Date Visits Requested Visits Authorized [id number] Authorized Auto-Generat ed Referral 04/11/2025 08/03/2025 1 6 Reason Comments Speech Evaluation Specialty Diagnoses / Procedures Referred By Contac t Referred To Contact SPEECH THERAPY Diagnoses Spastic dysarthria Procedures CONSULT TO SPEECH THERAPY OFFICE/OUTPATIENT [facility] MDM 60 MINUTES Darren Mercado MD [address] [place] [address] Phone: tel: fax: Evi Pantoja, CCC-JUKEBOX CHECKER Referral ID Status Reason Start Date Expiration Date Visits Requested Visits Authorized [id number] Authorized Auto-Generat ed Referral 04/11/2025 11/23/2025 99 99 Reason Comments PT Eval Specialty Diagnoses / Procedures Referred By Contandria t Referred To Contact PHYSICAL THERAPY Diagnoses Cervical spondylosis with myelopathy Neuropathy Radiculopathy, lumbar region Multifactorial gait disorder Procedures CONSULT TO PHYSICAL THERAPY PHYSICAL THERAPY EVALUATION HIGH COMPLEX 45 MINS Darren Mercado MD [address] [place] [address] Phone: tel: fax: [place] [facility] Physical Therapy [address] [place] [address] Phone: tel: fax: Referral ID Status Reason Start Date Expiration Date V isits Requested Visits Authorized [id number] Closed Auto-Generate d Referral 11/24/2024 11/23/2025 1 1 Reason Comments Appointment Reason Comments Vaginal Problem Care Teams (unrecognized sec tion and content) 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 Summer Worrell DO Family Provider Active Dr. Summer Worrell DO Primary Care Provider Active Team Status: Inactive Member Role Status Dates Dr. 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 uSmmer Worrell DO Primary Care Provider, Referrin g [...] oWrrell , DO Primary Care Provider Active Dr. [...] Status: Inactive Member Role Status Dates Dr. 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 Relationship Specialty Start Date End Date Summer Worrell DO [address] [place] [address] PCP - General Family Medicine 10/27/18 Alireza Roach MD [address] [place] [address] Referring Anesthesiology 12/09/24 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 Relationship Specialty Start Date End Date Summer Worrell DO [address] [place] [address] PCP - General Family Medicine 10/27/18 Alireza Roach MD [address] [place] [address] Referring Anesthesiology 12/09/24 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 Relationship Specialty Start Date End Date Summer Worrell DO [address] [place] [address] PCP - General Family Medicine 10/27/18 Alireza Roach MD [address] [place] [address] Referring Anesthesiology 12/09/24 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 Relationship Specialty Start Date End Date Summer Worrell DO [address] [place] [address] PCP - General Family Medicine 10/27/18 Alireza Roach MD [address] [place] [address] Referring Anesthesiology 12/09/24 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 Relationship Specialty Start Date End Date Summer Worrell DO [address] [place] [address] PCP - General Family Medicine 10/27/18 Alireza Roach MD [address] [place] [address] Referring Anesthesiology 12/09/24 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 Relationship Specialty Start Date End Date Summer Worrell DO [address] [place] [address] PCP - General Family Medicine 10/27/18 Alireza Roach MD [address] [place] [address] Referring Anesthesiology 12/09/24 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 Relationship Specialty Start Date End Date Summer Worrell DO [address] [place] [address] PCP - General Family Medicine 10/27/18 Alireza Roach MD [address] [place] [address] Referring Anesthesiology 12/09/24 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 Relationship Specialty Start Date End Date Summer Worrell DO [address] [place] [address] PCP - General Family Medicine 10/27/18 Alireza Roach MD [address] [place] [address] Referring Anesthesiology 12/09/24 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 Relationship Specialty Start Date End Date Summer Worrell DO [address] [place] [address] PCP - General Family Medicine 10/27/18 Alireza Roach MD [address] [place] [address] Referring Anesthesiology 12/09/24 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 Relationship Specialty Start Date End Date Summer Worrell DO [address] [place] [address] PCP - General Family Medicine 10/27/18 Alireza Roach MD [address] [place] [address] Referring Anesthesiology 12/09/24 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 Relationship Specialty Start Date End Date AnaidSummer zelaya [address] [place] [address] PCP - General Family Medicine 10/27/18 Alireza Roach MD [address] [place], [place] [address] Referring Anesthesiology 12/09/24 INFORMATION SOURCE (unrecogn ized section and content) DATE CREATED AUTHOR 06/13/2025 [facility] DATE CREATED AUTHOR AUTHOR'S ORGANIZ ATION 09/05/2025 [facility] DATE CREATED AUTHOR AUTHOR'S ORGANIZ ATION 09/25/2025 [facility] FOR RECORDS PERTAINING TO PATIENTS WHO [...] BE BASED ON THE PRIMARY CLINICAL RECORDS. [employer] provides no warranty or guarantee of the accuracy or completeness of information in this document.
--- NOTE | 2025-11-09 00:35 | RAD_ITS ---
PROCEDURE: RIBS UNI MIN 3V W/PA CHEST 11/09/2025 REASON FOR EXAM: PAIN TECHNIQUE: Procedure Code: RADRIB Modality: DX Procedure: RIBS UNI MIN 3V W/PA CHEST COMPARISON: 03/07/2024. FINDINGS: Mild osteopenia. Acute mildly displaced fractures of the axillary portions of the right 8th and 9th ribs. Bilateral breast prostheses are again noted. The lungs are expanded. There is no demonstrated parenchymal abnormality. There is no demonstrated pleural abnormality. Enlarged cardiac silhouette. Normal mediastinum and angeles. Normal visualized pulmonary arteries. Atheromatous plaques of the visualized aortic arch and descending thoracic aorta. Diffuse spondylosis of the visualized thoracic spine. Normal remaining visualized ribs, clavicles. Degenerative joint disease. There is no demonstrated abnormality of the visualized soft tissue structures of the upper abdomen. RAD/Ribs Uni Min 3V w/PA Chest IMPRESSION: Mild osteopenia. Acute mildly displaced fractures of the axillary portions of the right 8th and 9th ribs. Reading [facility]
[2025-11-09 00:51] VITALS: BP 118/68; PULSE 82; RESP 17; O2SAT 100
[2025-11-09 01:05] VITALS: BP 115/64; PULSE 82; RESP 17; O2SAT 93
--- NOTE | 2025-11-09 01:05 | EDS_ITS ---
HPI History of Present Illness Chief Complaint: Chest Other Informant: patient and friend Narrative Narrative: Patient is a 75-year-old female with history of hypertension hypothyroidism osteopenia and debility. She states she has to use a walker to get around. She states that earlier in the day she was trying to move objects and do some cleaning around the house. She states a object fell and struck her on the right anterior chest wall. She states she had pain after being struck but did not think too much of it. She states this time past she noticed the pain was worsening and occurred with any type of motion or breathing and she is unsure if she broke a rib and secondary to this comes in for evaluation. [facility] Medical History Hx of fracture of left hip Wears glasses Post-menopausal Anxiety Thyroid disease Diabetes Gastric reflux Former smoker Shortness of breath on exertion Chronic cough History of pain when walking History of edema Hx of fracture of femur Peripheral neuropathy Back pain due to injury Syncope History of stress test Kidney stones Stroke/cerebrovascular accident Diabetes Primary localized osteoarthritis of hips, bilateral Spinal stenosis of lumbar region at multiple levels Spinal stenosis in cervical region DDD (degenerative disc disease), lumbar Low back pain Lichen sclerosus Atrophic vaginitis HSV (herpes simplex virus) infection Stress incontinence Rheumatoid arthritis Easy bruising Leg cramps Left renal stone Alcohol use Smoker Hypertension Goiter 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 Diabetes 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 TIA (transient ischemic attack) Vision problems Hypothyroidism GERD (gastroesophageal reflux disease) H/O: pneumonia Neuropathy Goiter Carpal tunnel syndrome Cataracts, bilateral Recurrent UTI Back problem Arthritis Anxiety and depression Seasonal allergies Type 2 diabetes mellitus Home Medications ?Medication ?Instructions ?Recorded ?Last Taken ?Type bupropion HCl 300 mg 24 hr tablet, 300 mg PO QAM depre ssion 11/20/18 07/15/24 History extended release (Wellbutrin XL) multivitamin with minerals-folic 1 tab PO DAILY vitami n 11/20/18 Unknown History acid 0.4 mg tablet (Adult One Daily Multivitamin) fluticasone propionate 50 1 spray NASAL DAILY PRN antoinette rgies 06/22/20 Unknown History mcg/actuation nasal spray,suspension metformin 500 mg tablet 1,000 mg PO DAILY diabetes 0 08/04/20 07/15/24 History levothyroxine 175 mcg tablet 150 mcg PO DAILY hypothyr oid 01/30/22 07/16/24 History (Synthroid) metformin 500 mg tablet 500 mg PO QHS diabetes 06/2807/15/24 History acetaminophen 500 mg tablet 1,000 mg (2 x 500 mg) PO Q 8 pain 03/11/24 Unknown Rx #0 tabs sennosides 8.6 mg-docusate sodium 2 tab PO BID bowels #0 tabs 03/26/24 Unknown Rx 50 mg tablet (Stool Softener-Stimulant Laxative) Caffeine [No Doz] 300 mg PO DINNER PRN FATIQUE 07/14/24 Unknown History Caffeine [No Doz] 300 mg PO LUNCH PRN FATIQUE 07/14/24 07/15/24 History gabapentin 100 mg capsule 200 mg PO TIDCM nerve pain 0 07/14/24 07/16/24 History omeprazole 40 mg capsule,delayed 40 mg PO DAILY reflux 07/14/24 Unknown History release bupropion HCl 150 mg 24 hr tablet, 150 mg PO DAILY [facility] 10/26/25 Unknown History extended release clobetasol 0.05 % topical ointment topical 10/26/25 Un known History lisinopril 5 mg tablet 5 mg PO DAILY blood pressure 10/26/25 Unknown History cefdinir 300 mg capsule 300 mg PO BID #10 caps 10/28 Unknown Rx oxycodone 5 mg tablet 5 mg PO Q6H PRN pain 5 days #20 11/09/25 Unknown Rx tabs Allergy/AdvReac Type Severity Reaction Status Date / Time No Known Allergies Allergy Verified 11/08/25 23:45 Family History Mother Cancer Father Diabetes Heart disease Sister Diabetes Surgical History Hx of esophagogastroduodenoscopy Hx of cystoscopy History of colonoscopy History of foot surgery History of lithotripsy History of carpal tunnel surgery Social History household members: none housing: house number of children: 0 current occupational status: retired Smoking Status: Current every day smoker tobacco type: cigarettes alcohol intake: current alcohol intake frequency: holidays/special occasions only substance use type: does not use seatbelt use: always do you feel safe at home: Yes additional social history: ROS ROS ED Constitutional Constitutional ED: Denies chills or fever(s) Eyes Eyes: Denies change in vision ENT ENT ED: Denies sore throat Cardiovascular Cardiovascular: Denies chest pain, palpitations or racing heartbeat Respiratory/Chest Respiratory/Chest: Denies cough or dyspnea Gastrointestinal Gastrointestinal: Denies abdominal pain, diarrhea, nausea or vomiting Musculoskeletal Musculoskeletal: Reports other Details: Positive chest wall pain Integumentary Denies Abrasions or rash Neurologic Neurologic: Denies headache(s) Hematologic/Lymphatic Hematologic/Lymphatic: Denies easy bleeding or easy bruising EXAM Physical Exam Const Vital Signs: 11/08/25 23:43 11/09/25 00:35 11/09/25 00:51 Temperature 98.1 F Temperature Source Oral Pulse Rate 92 82 Respiratory Rate 18 17 Respiratory Effort Normal Blood Pressure 134/87 H 118/68 Blood Pressure Mean 102 84 Pulse Ox 98 100 Oxygen Delivery Method Room Air Room Air 11/09/25 01:05 11/09/25 01:06 Temperature 98.1 F Temperature Source Pulse Rate 82 82 Respiratory Rate 17 17 Respiratory Effort Blood Pressure 115/64 115/64 Blood Pressure Mean 81 81 Pulse Ox 93 93 Oxygen Delivery Method Room Air Positive well nourished and well developed General Appearance ED: well developed; Negative for pallor HEENT HEENT Narrative: Normocephalic atraumatic Eyes PERRL and EOMs intact bilaterally Neck supple Chest Wall Chest Narrative: Patient has reproducible pain with palpation along the right anterior lateral chest wall rib regions 8-12 No obvious bony deformity No subcutaneous emphysema noted No overlying abrasions or ecchymosis Resp normal respiratory effort and clear to auscultation bilaterally Resp Narrative: Breath sounds are diminished throughout but overall clear to auscultation without signs of respiratory distress Cardio regular rate and regular rhythm GI normal to inspection, nondistended, normoactive bowel sounds, non-tender and non-distended GI Narrative: No pain with palpation in the right upper quadrant No abrasions or ecchymosis to suggest liver laceration No voluntary guarding or rigidity Auscultation: normoactive bowel sounds Palpation: soft Extremity normal to inspection Extremity Narrative: No signs of long bone injury such as bony deformity or joint effusion Neuro oriented x3, CN's II-XII intact bilaterally and no sensory deficits noted Sensorium / Orientation: alert Psych mental status grossly normal Skin no rashes or lesions noted and no wounds General Skin Exam: Negative for jaundice or pallor MDM MDM MDM Narrative Medical decision making narrative: Patient arrived to the ER with stable vitals. She reported mechanical trauma to the chest wall. There is concern for rib fracture versus rib contusion versus pneumothorax. As there is no pain with palpation in the abdomen no overlying abrasions or ecchymosis I have low concern for liver laceration and only feel the need for a rib series x-ray at this time. The x-ray confirmed 8th and 9th rib fractures that correlate with her history and exam but no pneumothorax. The patient is hemodynamically stable she is not hypoxic she is tolerating the pain well and therefore there is no need for further intervention and she is otherwise safe for discharge History & Record Review Discussion w/independent historian: Patient and Friend Radiography Diagnostic Testing: Clinical Impression(s) from Imaging Studies Ribs w/Chest X-Ray 11/09/25 00:35 IMPRESSION: Mild osteopenia. Acute mildly displaced fractures of the axillary portions of the right 8th and 9th ribs. Reading Location: [place] [address] Right rib series as interpreted by the emergency medicine physician reveals a 8th and 9th rib fracture without pneumothorax Discharge Plan Triage Chief Complaint: Chest Other ED Provider: Joe Ramirez Dx/Rx/DC Orders Clinical Impression: Rib fractures, Debility, Essential (primary) hypertension, Hypothyroidism, Osteopenia Instructions: ED Rib Fracture Prescriptions: New oxycodone 5 mg tablet 5 mg PO Q6H PRN (Reason: pain) 5 Days Qty: 20 0RF No Action multivit with min-folic acid [Adult One Daily Multivitamin] 0.4 mg tablet 1 tab PO DAILY bupropion HCl [Wellbutrin XL] 300 mg tablet extended release 24 hr 300 mg PO QAM metformin 500 mg tablet 1,000 mg PO DAILY fluticasone propionate 1 SPRAY spray,suspension 1 spray NASAL DAILY PRN (Reason: allergies) levothyroxine [Synthroid] 175 mcg tablet 150 mcg PO DAILY metformin 500 mg Tablet 500 mg PO QHS acetaminophen 500 mg Tablet 1,000 mg PO Q8 Qty: 0 0RF sennosides-docusate sodium [Stool Softener-Stimulant Laxat] 8.6-50 mg Tablet 2 tab PO BID Qty: 0 0RF omeprazole 40 mg capsule,delayed release(DR/EC) 40 mg PO DAILY gabapentin 100 mg Capsule 200 mg PO TIDCM Caffeine [No Doz] 300 mg PO DINNER PRN (Reason: FATIQUE) Caffeine [No Doz] 300 mg PO LUNCH PRN (Reason: FATIQUE) lisinopril 5 mg tablet 5 mg PO DAILY clobetasol 0.05 % ointment topical bupropion HCl 150 mg tablet extended release 24 hr 150 mg PO DAILY cefdinir 300 mg capsule 300 mg PO BID Qty: 10 0RF Primary Care Provider: Praveen Lutz Referrals: Praveen Lutz DO [Primary Care Provider, Family Practice] Activity Restrictions/Additional Instructions: Your x-ray showed fractures to the right 8th and 9th ribs. It will typically take 4 to 6 weeks for these to heal. Please use the incentive spirometer once every hour while you are awake to stimulate deep breathing and prevent pneumonia. Continue all of your home medication as directed by your doctor. Make sure you are adding MiraLAX or a fiber supplement while taking the pain medication to prevent constipation. Return to the ER should you have any further concern Print Language: Uruguayan Disposition Disposition: Home, Self Care Discharge Date/Time: 11/09/25 01:33
[2025-11-09 01:06] VITALS: BP 115/64; PULSE 82; RESP 17; TEMP 36.7; O2SAT 93
== END 2025-11-09 01:33 | disposition home or self-care (01) ==
PROVIDERS: Emergency Provider Emergency Medicine; PCP Family Medicine; Visit Provider Emergency Medicine
DX: S22.41XA Multiple fractures of ribs, right side, initial encounter for closed fracture (principal); E11.9 Type 2 diabetes mellitus without complications; E03.9 Hypothyroidism, unspecified; M85.80 Other specified disorders of bone density and structure, unspecified site; I10 Essential (primary) hypertension; W22.8XXA Striking against or struck by other objects, initial encounter; R53.81 Other malaise; F17.210 Nicotine dependence, cigarettes, uncomplicated; Y93.89 Activity, other specified; Y92.019 Unspecified place in single-family (private) house as the place of occurrence of the external cause; Z86.73 Personal history of transient ischemic attack (TIA), and cerebral infarction without residual deficits; F41.8 Other specified anxiety disorders; Z79.899 Other long term (current) drug therapy; Z79.84 Long term (current) use of oral hypoglycemic drugs; Z79.890 Hormone replacement therapy; K21.9 Gastro-esophageal reflux disease without esophagitis
CPT/HCPCS: 71101; 96372; 99283